=== PATIENT | female | born 1950 | race Caucasian/White ===

== ENCOUNTER → 2020-05-19 09:33 | Outpatient (BNVA) | payer MEDICARE, SELFPAY | PROVIDERS: PCP Internal Medicine; Referring Provider Internal Medicine; Visit Provider Internal Medicine | DX: E11.65 Type 2 diabetes mellitus with hyperglycemia (principal); Z79.4 Long term (current) use of insulin; E55.9 Vitamin D deficiency, unspecified; E04.2 Nontoxic multinodular goiter; E78.5 Hyperlipidemia, unspecified; I10 Essential (primary) hypertension; Z79.899 Other long term (current) drug therapy | CPT/HCPCS: Q3014 ==

== ENCOUNTER 2020-09-01 07:26 | Outpatient (REF) | payer OTHER, SELFPAY ==
[2020-09-01 11:46] LABS: Estimated Average Glucose 134 mg/dL; Hemoglobin A1c % 6.3 %
[2020-09-01 12:04] LABS: Creatinine Urine 85.48 mg/dL; Microalbum/Creatinine Ratio Ur 8.1 ug/mg cr
[2020-09-01 12:22] LABS: Vitamin D 25-OH Total 30.9 ng/mL (>30)
[2020-09-01 12:37] LABS: Alanine Aminotransferase 11 U/L (0-31); Albumin Level 4.5 g/dL (3.5-5.0); Alkaline Phosphatase 51 U/L (39-117); Anion Gap 16 (12-20); Aspartate Amino Transferase 18 U/L (5-31); Bilirubin Total 0.3 mg/dL (0.0-1.0); Blood Urea Nitrogen 12 mg/dL (9-16); Calcium 9.3 mg/dL (8.4-10.2); Carbon Dioxide 28 mmol/L (22-29); Chloride 103 mmol/L (96-108); Cholesterol 163 mg/dL; Estimated Glomerular Filt Rate > 60; Glucose Random 111 mg/dL (60-115); HDL Cholesterol 61 mg/dL; LDL Cholesterol Calculated 83 mg/dl; Potassium 4.5 mmol/L (3.3-5.1); Sodium 142 mmol/L (135-145); Total Protein 7.1 g/dL (6.5-8.0); Triglycerides 99 mg/dL
[2020-09-02 05:12] LABS: LDL Cholesterol Direct 78 mg/dL (<100)
== END 2020-09-01 07:27 | disposition home or self-care (01) ==
LOC: HO.HMGCLDS 07:26
PROVIDERS: PCP Internal Medicine; Visit Provider Internal Medicine
DX: E11.65 Type 2 diabetes mellitus with hyperglycemia (principal); E55.9 Vitamin D deficiency, unspecified
CPT/HCPCS: 36415; 80053; 80061; 82043; 82306; 83036; 83721

== ENCOUNTER → 2020-09-04 13:34 | Outpatient (BNVA) | payer OTHER, SELFPAY | PROVIDERS: PCP Internal Medicine; Visit Provider Internal Medicine | DX: E11.65 Type 2 diabetes mellitus with hyperglycemia (principal); E55.9 Vitamin D deficiency, unspecified; E04.2 Nontoxic multinodular goiter; E78.5 Hyperlipidemia, unspecified; I10 Essential (primary) hypertension; Z79.4 Long term (current) use of insulin; Z71.3 Dietary counseling and surveillance | CPT/HCPCS: 82947; 99212 ==

== ENCOUNTER → 2020-09-08 10:06 | Outpatient (BNVA) | payer OTHER, SELFPAY | PROVIDERS: PCP Internal Medicine; Visit Provider Internal Medicine | DX: J44.9 Chronic obstructive pulmonary disease, unspecified (principal); G47.34 Idiopathic sleep related nonobstructive alveolar hypoventilation; F17.200 Nicotine dependence, unspecified, uncomplicated; Z71.6 Tobacco abuse counseling; Z79.899 Other long term (current) drug therapy | CPT/HCPCS: 99212 ==

== ENCOUNTER 2020-09-23 08:54 | Outpatient (REF) | payer OTHER, SELFPAY | END 2020-09-23 08:55 | disposition home or self-care (01) | LOC: HO.LAB 08:54 | PROVIDERS: PCP Internal Medicine; Visit Provider Obstetrics & Gynecology | DX: N90.89 Other specified noninflammatory disorders of vulva and perineum (principal) | CPT/HCPCS: 56605; 88305; 99202 ==

== ENCOUNTER → 2020-10-06 13:37 | Outpatient (BNVA) | payer OTHER, SELFPAY | PROVIDERS: Visit Provider Obstetrics & Gynecology | DX: N90.89 Other specified noninflammatory disorders of vulva and perineum (principal) | CPT/HCPCS: Q3014 ==

== ENCOUNTER 2020-10-22 10:13 | Outpatient (REF) | payer OTHER, SELFPAY ==
--- NOTE | ~2020-10-22 | MR_ITS ---
EXAMINATION: MR LUMBAR SPINE WITHOUT CONTRAST CLINICAL INFORMATION: Spinal stenosis. Bilateral lower extremity pain and numbness. COMPARISON: Lumbar spine MRI 10/01/2019, lumbar spine CT 02/26/2016. TECHNIQUE: MRI of the lumbar spine was obtained using routine sequences without contrast. FINDINGS: There are chronic postoperative changes of a spinal fusion at L5-S1 including intervertebral hardware and metallic pins that traverse both facet joints. Alignment is normal. Vertebral heights are preserved. There is slight loss of intervertebral disc height and T2 signal intensity at multiple levels related to disc degeneration. The tip of the conus medullaris is located at L1. No mass effect on the conus. Visualized distal cord signal intensity is normal. At L1-L2 the annular contour is normal. No canal or neuroforaminal compromise. At L2-L3 the annular contour is normal. No canal or neuroforaminal compromise. At L3-L4 there is a shallow right central protrusion superimposed upon a bulging disc. Bilateral facet degenerative change. Moderate to severe canal stenosis. No foraminal nerve root compression. At L4-L5 there chronic changes of a right hemilaminectomy. The canal is decompressed. There is bilateral facet degenerative change. No mass effect on the traversing or foraminal nerve roots. At L5-S1 there is susceptibility artifact related to the fusion hardware. Grossly no canal or neuroforaminal compromise. Limited visualization the retroperitoneal anatomy reveals no abnormal finding. Psoas and paraspinal muscle groups are symmetric. MR/MR lumbar spine wo con IMPRESSION: There are stable chronic changes of a spinal fusion at L5-S1. There is a shallow right central protrusion superimposed upon a bulging disc at L3-L4 causing moderate to severe canal stenosis. Otherwise no canal compromise and no substantial mass effect on the traversing or foraminal nerve roots elsewhere within the lumbar spine.
== END 2020-10-22 10:14 | disposition home or self-care (01) ==
LOC: HO.MRI 10:13
PROVIDERS: Visit Provider Internal Medicine
DX: M48.00 Spinal stenosis, site unspecified (principal)
CPT/HCPCS: 72148

== ENCOUNTER 2020-12-04 06:45 | Outpatient (REF) | payer OTHER, SELFPAY ==
[2020-12-04 12:01] LABS: Alanine Aminotransferase 11 U/L (0-31); Albumin Level 4.3 g/dL (3.5-5.0); Alkaline Phosphatase 53 U/L (39-117); Anion Gap 13 (12-20); Aspartate Amino Transferase 16 U/L (5-31); Bilirubin Total 0.4 mg/dL (0.0-1.0); Blood Urea Nitrogen 14 mg/dL (9-16); Calcium 9.6 mg/dL (8.4-10.2); Carbon Dioxide 29 mmol/L (22-29); Chloride 104 mmol/L (96-108); Estimated Glomerular Filt Rate 60; Glucose Random 115 mg/dL (60-115); Potassium 4.6 mmol/L (3.3-5.1); Sodium 141 mmol/L (135-145); Total Protein 6.6 g/dL (6.5-8.0)
[2020-12-04 12:23] LABS: Estimated Average Glucose 148 mg/dL; Hemoglobin A1c % 6.8 %
[2020-12-04 12:28] LABS: Free T4 (Free Thyroxine) 1.09 ng/dL (0.71-1.85); Thyroid Stimulating Hormone 1.56 uIU/mL (0.32-4.0); Vitamin D 25-OH Total 30.5 ng/mL (>30)
== END 2020-12-04 06:46 | disposition home or self-care (01) ==
LOC: HO.HMGCLDS 06:45
PROVIDERS: PCP Internal Medicine; Visit Provider Internal Medicine
DX: E55.9 Vitamin D deficiency, unspecified (principal); E11.65 Type 2 diabetes mellitus with hyperglycemia; E04.2 Nontoxic multinodular goiter
CPT/HCPCS: 36415; 80053; 82306; 83036; 84439; 84443

== ENCOUNTER → 2020-12-11 10:20 | Outpatient (BNVA) | payer OTHER, SELFPAY | PROVIDERS: PCP Internal Medicine; Visit Provider Internal Medicine | DX: E11.65 Type 2 diabetes mellitus with hyperglycemia (principal); E55.9 Vitamin D deficiency, unspecified; E04.2 Nontoxic multinodular goiter; E78.5 Hyperlipidemia, unspecified; I10 Essential (primary) hypertension | CPT/HCPCS: 82947; 99212 ==

== ENCOUNTER → 2021-01-06 09:56 | Outpatient (BNVA) | payer OTHER, SELFPAY | PROVIDERS: PCP Internal Medicine; Visit Provider Nurse Practitioner Family | DX: M96.1 Postlaminectomy syndrome, not elsewhere classified (principal); M53.3 Sacrococcygeal disorders, not elsewhere classified; Z79.899 Other long term (current) drug therapy | CPT/HCPCS: 99202 ==

== ENCOUNTER → 2021-01-15 09:28 | Outpatient (BNVA) | payer OTHER, SELFPAY | PROVIDERS: Visit Provider Obstetrics & Gynecology ==

== ENCOUNTER 2021-03-04 09:36 | Outpatient (REF) | payer OTHER, SELFPAY ==
--- NOTE | ~2021-03-04 | US_ITS ---
EXAMINATION: US THYROID CLINICAL INFORMATION: Nontoxic multinodular goiter. COMPARISON: Thyroid ultrasound 02/25/2020 and 12/27/2018. Ultrasound-guided thyroid biopsy 05/10/2019. TECHNIQUE: Linear transducer grayscale and color Doppler examination with attention to the region of the thyroid. FINDINGS: SIZE: Measurements of the thyroid lobes and nodules are given in sagittal, anteroposterior and transverse dimensions respectively. Right Thyroid Lobe: 6.0 x 2.4 x 2.1 cm, volume 15.8 mL. Previously 5.7 x 2.4 x 2.1 cm, volume 15.0 mL. Parenchyma: The gland echotexture is heterogeneous. Thyroid vascularity is normal. Left Thyroid Lobe: 4.3 x 1.6 x 1.3 cm, volume 4.7 mL. Previously 4.0 x 2.0 x 1.8 cm, volume 7.6 mL. Parenchyma: The gland echotexture is homogeneous. Thyroid vascularity is normal. Isthmus: 0.6 cm in maximum AP dimension. Previously 0.8 cm. Estimated total number of nodules greater than or equal to 1 cm: 2. Chief [employer] nodules are described as follows: 1. Location: Right upper/midpole. Size: 2.3 x 1.9 x 2.0 cm, volume 4.5 mL. Previously: 1.9 x 1.9 x 1.9 cm, volume 3.6 mL. Nodule characteristics: Composition: Solid (2). Echogenicity: Hypoechoic (2). Shape: Not taller than wide (0). Margins: Irregular (2). Echogenic Foci: None (0). ACR TI-RADS total points: 6 Previous: Not applicable ACR TI-RADS category: 4 Previous: Not applicable Significant change in size (>/= 20% in 2 dimensions and minimal increase of 2 mm or 50% or greater increase in volume): No Change in features: No Change in ACR TI-RADS risk category: Not applicable 2. Location: Right midpole. Size: 1.1 x 0.7 x 1.1 cm, volume 0.4 mL. Previously: Not documented, new. Nodule characteristics: Composition: Solid/almost completely solid (2). Echogenicity: Hyperechoic (1). Shape: Not taller than wide (0). Margins: Ill-defined (0). Echogenic Foci: None (0). ACR TI-RADS total points: 3 Previous: Not applicable ACR TI-RADS category: 3 Previous: Not applicable 3. Location: Right lower pole. Size: 0.6 x 0.4 x 0.7 cm, volume 0.08 mL. Previously: 0.4 x 0.5 x 0.6 cm, volume 0.02 mL. Nodule characteristics: Composition: Mixed cystic and solid (1). Echogenicity: Cannot be determined (1). Shape: Not taller than wide (0). Margins: Smooth (0). Echogenic Foci: None (0). ACR TI-RADS total points: 2 Previous: Not applicable ACR TI-RADS category: 2 Previous: Not applicable Significant change in size (>/= 20% in 2 dimensions and minimal increase of 2 mm or 50% or greater increase in volume): No Change in features: No Change in ACR TI-RADS risk category: Not applicable 4. Location: Left upper/midpole. Size: 0.4 x 0.2 x 0.4 cm, volume 0.02 mL. Previously: 0.4 x 0.2 x 0.3 cm, volume 0.01 mL. Nodule characteristics: Composition: Mixed cystic and solid (1). Echogenicity: Cannot be determined (1). Shape: Not taller than wide (0). Margins: Smooth (0). Echogenic Foci: None (0). ACR TI-RADS total points: 2 Previous: Not applicable ACR TI-RADS category: 2 Previous: Not applicable Significant change in size (>/= 20% in 2 dimensions and minimal increase of 2 mm or 50% or greater increase in volume): No Change in features: No Change in ACR TI-RADS risk category: Not applicable Near-complete resolution of previously seen cystic area superior to the isthmus which now measures up to 0.9 cm (previously 2.5 cm). NODES: No lymphadenopathy is seen in the tissue surrounding the thyroid gland. US/US thyroid IMPRESSION: Heterogeneous right thyroid parenchyma with normal vascularity. Asymmetric enlargement of the right thyroid. Findings are unchanged. Multiple bilateral thyroid nodules are redemonstrated. The largest nodule is again noted to be within the superior right thyroid measuring up to 2.3 cm the current examination (previously 1.9 cm). Findings are consistent with a TI-RADS Category 4 nodule, and is similar in ultrasound characteristics. Additional previously seen thyroid nodules are not significantly enlarged. New right midpole thyroid nodule measuring 1.1 cm with ultrasound characteristics consistent with TI-RADS Category 3. Previously seen cystic focus superior to the isthmus has significantly decreased in size now measuring up to 0.9 cm (previously 2.5 cm). ACR TI-RADS RECOMMENDATION REFERENCE: Ultrasound-guided fine-needle aspiration, followup ultrasound, no further follow up. * TR1 (0 point) and TR 2 (2 points): No FNA or follow up * TR3 (3 points): FNA if more than or equal to 2.5 cm in maximum dimension, followup ultrasound in 1, 3 and 5 years if 1.5 to 2.4 cm in maximum dimension. * TR4 (4-6 points): FNA if more than or equal to 1.5 cm in maximum dimension, followup ultrasound in 1, 2, 3 and 5 years if 1 to 1.4 cm in maximum dimension. * TR5 (more than or equal to 7 points): FNA if more than or equal to 1 cm in maximum dimension, followup ultrasound every year for 5 years if 0.5 to 0.9 cm in maximum dimension. * TR3, TR4 or TR5 nodules that are below the size threshold for follow up receive no follow up.
== END 2021-03-04 09:37 | disposition home or self-care (01) ==
LOC: HO.HMGCX 09:36
PROVIDERS: PCP Internal Medicine; Visit Provider Internal Medicine
DX: E04.2 Nontoxic multinodular goiter (principal)
CPT/HCPCS: 76536

== ENCOUNTER 2021-03-13 11:27 | Emergency (ER) | payer OTHER, SELFPAY ==
--- NOTE | ~2021-03-13 | CT_ITS ---
EXAMINATION: CT ABDOMEN AND PELVIS WITH CONTRAST CLINICAL INFORMATION: Vomiting evaluate for obstruction COMPARISON: None TECHNIQUE: Multidetector volumetric images were obtained from the superior aspect of the liver through the pubic symphysis following administration 85 mL of Omnipaque 350 intravenous contrast. Sagittal and coronal reformatted images were obtained on the technologist's workstation. Oral contrast: No This CT examination was performed using dose optimization techniques as appropriate, variously including the following: *Automated exposure control *Adjustment of mA and/or kV according to patient size (this includes techniques or standardized protocols for targeted exams where dose is matched to indication/reason for exam; i.e. extremities or head) *Use of iterative reconstruction technique DLP: 683.41 mGy-cm FINDINGS: LUNG BASES: Bibasilar atelectasis and left lingular atelectasis versus scarring. The heart is not enlarged. No pericardial effusion. LIVER, GALLBLADDER, AND BILIARY TREE: The liver is normal in size, shape, and attenuation. No focal hepatic lesion or biliary ductal dilatation is present. The gallbladder is surgically absent. PANCREAS: Unremarkable. SPLEEN: Unremarkable. Multiple splenules are noted the largest measuring up to 1.8 cm. ADRENAL GLANDS: Unremarkable. KIDNEYS AND URETERS: 2 mm calculus in the right renal interpolar/lower pole region without hydronephrosis. No left-sided nephrolithiasis or hydronephrosis. BLADDER: Unremarkable. GASTROINTESTINAL TRACT: The small and large bowel are unremarkable. The appendix is not definitively visualized. No secondary signs of appendicitis. ABDOMINAL WALL: No significant hernia is appreciated. LYMPH NODES: No enlarged lymph nodes per size criteria. VASCULAR: Abdominal aorta is nonaneurysmal. Atherosclerotic calcifications of the abdominal aorta and its branches. Pelvic phleboliths are noted. PELVIC VISCERA: Anteverted uterus. OSSEOUS STRUCTURES: Spinal hardware at L5-S1, grossly intact. Multilevel degenerative changes of the thoracolumbar spine. No large lytic or blastic lesions are noted. CT/CT abdomen pelvis w con IMPRESSION: 1. No acute process of the abdomen or pelvis identified. 2. Right-sided nephrolithiasis without hydronephrosis. 3. Multiple splenules are visualized. 4. Status post cholecystectomy.
--- NOTE | ~2021-03-13 | XR_ITS ---
EXAMINATION: XR CHEST CLINICAL INFORMATION: Vomiting COMPARISON: CT chest from 01/21/2020, chest radiograph from 02/23/2019 TECHNIQUE: Frontal view of the chest was obtained. FINDINGS: Linear atelectasis versus scarring involving the left lung base. No pneumothorax. Trachea is midline. Cardiomediastinal silhouette is not enlarged. No large pleural effusions. Osseous structures are intact. Soft tissues are unremarkable. XR/XR chest 1V IMPRESSION: Linear atelectasis versus scarring involving the left lung base.
--- NOTE | 2021-03-13 11:35 | ED.NAVMDI ---
HPI - Nausea/Vomiting/Diarrhea General Chief complaint: Nausea/Vomiting/Diarrhea Stated complaint: n/v Time Seen by Provider: 03/13/21 11:35 Source: patient and EMS Mode of arrival: EMS Limitations: no limitations History of Present Illness MD elicited complaint: nausea and vomiting Onset (ago): hour(s) (started at 8am) Description of vomiting: bilious Associated nausea: Yes Associated abdominal pain: No Severity: mild Exacerbating factors: none Relieving factors: none Context: history of abdominal surgery Associated symptoms: loss of appetite and nausea/vomiting Related Data Home Medications Medication Instructions Recorded Confirmed aripiprazole 15 mg tablet 15 mg PO DAILY 05/19/20 01/06/21 blood sugar diagnostic #10 ea 05/19/20 10/06/20 clonazepam 0.5 mg tablet 0.5 mg PO DAILY PRN 05/19/20 01/06/21 pen needle, diabetic 32 gauge x #50 ea 05/19/20 12/11/20 trazodone 100 mg tablet 300 mg PO BEDTIME tab 05/19/20 01/06/21 insulin degludec 100 unit/mL (3 30 unit SUBCUT DAILY ml 09/04/20 01/06/21 mL) subcutaneous pen (Tresiba FlexTouch U-100 insulin) albuterol sulfate 90 mcg/actuation 2 puff INHALATION Q6-8H PRN g 12/11/20 01/06/21 aerosol inhaler duloxetine 60 mg capsule,delayed 60 mg PO DAILY cap 12/11/20 01/06/21 release melatonin 5 mg tablet 5 mg PO BEDTIME 12/11/20 01/06/21 brimonidine 0.1 % eye drops 1 drp OPHTHALMIC (EYE) Q8H 01/06/21 01/06/21 (Alphagan P) quetiapine 25 mg tablet (Seroquel) 25 mg PO BEDTIME 03/06/21 03/06/21 Previous Rx's Medication Instructions Recorded empagliflozin 25 mg tablet 25 mg PO DAILY 30 Days #30 tab 04/09/20 (Jardiance) gabapentin 600 mg tablet 600 mg PO TID 30 Days #90 tab 04/18/20 levothyroxine 25 mcg tablet 25 mcg PO DAILY #90 tab 05/06/20 atorvastatin 40 mg tablet 40 mg PO DAILY #30 tab 06/04/20 liraglutide 0.6 mg/0.1 mL (18 mg/3 1.8 mg SUBCUT DAILY #9 ml 07/02/20 mL) subcutaneous pen injector ([employer] (MCG) 3-Jeanmarie) lancets 28 gauge (FreeStyle #100 ea 09/24/20 Lancets) esomeprazole magnesium 40 mg 40 mg PO DAILY #90 cap 10/06/20 capsule,delayed release fenofibrate 160 mg tablet 160 mg PO DAILY #90 tab 10/06/20 flash glucose scanning reader #1 ea 10/27/20 (FreeStyle Jill 2 [place]) sennosides 8.6 mg tablet (senna) 17.2 mg PO BID #180 tab 11/19/20 flash glucose sensor (FreeStyle #2 ea 12/25/20 Jill 2 Sensor) levocetirizine 5 mg tablet 5 mg PO QPM #90 tab 01/27/21 cholecalciferol (vitamin D3) 50 50 mcg PO DAILY #90 cap 02/09/21 mcg (2,000 unit) capsule docusate sodium 100 mg capsule 100 mg PO BID #60 cap 02/09/21 fluticasone fur. 100 mcg-umeclid 1 inh INHALATION DAILY #60 ea 03/06/21 62.5 mcg-vilant 25 mcg inhalat.powder (Trelegy Ellipta) insulin aspart U-100 100 unit/mL 4 unit SUBCUT TID PRN 30 Days #9 ml 03/09/21 (3 mL) subcutaneous pen ondansetron 4 mg disintegrating 4 mg PO Q8H PRN #20 tab 03/13/21 tablet Allergies Allergy/AdvReac Type Severity Reaction Status Date / Time ziprasidone [From Geodon] Allergy Mild RASH-PALPIT Verified 03/13/21 11:35 ATIONS aspirin [ASPIRIN] Allergy Unknown GI bleed, Verified 03/13/21 11:35 stomach upset azithromycin Allergy Unknown facial Verified 03/13/21 11:35 swelling cephalexin [From KEFLEX] Allergy Unknown UNKNWON Verified 03/13/21 11:35 ibuprofen [IBUPROFEN] Allergy Unknown UNKNOWN, Verified 03/13/21 11:35 stomach upset lisinopril Allergy Unknown cough Verified 03/13/21 11:35 metformin [METFORMIN] Allergy Unknown NAUSEA & Verified 03/13/21 11:35 VOMITING, GI upset valsartan [From Diovan] Allergy Unknown UNKNOWN Verified 03/13/21 11:35 NSAIDS (Non-Steroidal AdvReac Unknown HX OF GI Verified 03/13/21 11:35 Anti-Inflamma BLEED [NSAIDS (NON-STEROIDAL ANTI-INFLAMMA] tramadol [Ultram] AdvReac Unknown GI upset Verified 03/13/21 11:35 Review of Systems Review of Systems: Constitutional : No Weight loss, No Fever, No Chills ENT/Mouth : No sore throat, No Rhinorrhea Eyes: No Swelling, No Redness Cardiovascular : No Chest Pain, No SOB, NoEdema Respiratory : No Cough, No Sputum, No Wheezing Gastrointestinal : Positive Nausea, Positive Vomiting, no Diarrhea, no abdominal Pain, No Hematochezia, No Melena, no constipation Genitourinary : No Dysuria, No Urinary Frequency, No Hematuria, No Urgency Musculoskeletal : No joint pain, No Myalgias, No Joint Swelling Skin : No Skin Lesions, No rash Neuro : No Weakness, No Numbness, No Dizziness, No Headache Psych : No Anxiety/Panic, No Depression Heme/Lymph: No Bruising, No Lymphadenopathy Endocrine : No Polyuria, No Polydipsia All other systems reviewed and are negative. Gastrointestinal: Gastrointestinal: Reports nausea PMFSH Past Medical History Attestation statement: The following information was validated with the patient. Medical History Annual physical exam Constipation COPD (chronic obstructive pulmonary disease) Depression HLD (hyperlipidemia) HTN (hypertension) Multinodular thyroid Nocturnal hypoxemia Smoker Spinal stenosis T2DM (type 2 diabetes mellitus) Vitamin D deficiency Surgical History History of cardiac catheterization Hx of arthroscopy of left knee Hx of cholecystectomy Hx of colonoscopy Hx of spinal fusion Family History Family History Father No problems noted. Mother Cancer Diabetes Social History Social History Household Members: None Housing: Apartment Alcohol intake: never Patient Tobacco Use Status: Current everyday Tobacco user Tobacco use type: Cigarette e-Cigarette/Vaping Use: Former Use Advance Directives: No Advance Directives Information Provided: No Current occupational status: retired Physical Exam Vital Signs: Vital Signs: Last Vital Signs Temp 98.7 F 03/13/21 11:36 Pulse 89 03/13/21 12:11 Resp 18 03/13/21 11:36 BP 126/47 L 03/13/21 11:36 Pulse Ox 92 03/13/21 11:36 Body Mass Index 33.9 Appearance: Alert. Oriented X3. No acute distress. Eyes: Pupils equal, round and reactive to light. ENT: Pharynx normal. Neck: Normal inspection. Neck supple. CVS: Normal heart rate and rhythm. Pulses normal. Respiratory: No respiratory distress. Breath sounds diminished throughout with faint wheezes Abdomen: Soft and distended but no pain to palpation Skin: Skin warm and dry. Normal skin color. Normal skin turgor. Extremities: No lower extremity edema. No calf ttp Neuro: Oriented X 3. No motor deficit. No sensory deficit. Course Course Course Narrative: tolerating PO, workup negative stable for DC feels much better MDM - Nausea/Vomiting/Diarrhea MDM Narrative Medical decision making narrative: 70 yo female with COPD, prior abdominal surgeries, DM here with increased burping for 1 week feels her abdomen is more distended then vomited bile this AM - she has not had prior SBOs, reports flatus today and BM yesterday. Will need neb for faint wheezes, CXR for pneumonia possible diaphragmatic irritation, labs, IVF, zofran, CT scan for obstruction. Dispo per results and findings Lab Data Result diagrams: 03/13/21 11:58 03/13/21 11:58 Labs: Lab Results 03/13/21 03/13/21 03/13/21 Range/Units 11:35 11:57 11:57 WBC (4.8-10.8) X10*3/uL RBC (4.20-5.50) X10*6/uL Hgb (12.0-16.0) g/dl Hct (37-47) % MCV (80-98) fL MCH (27.0-33.0) pg MCHC (31.0-35.0) g/dl RDW (11.0-16.0) % Plt Count (160-400) X10*3/uL MPV (9.4-12.3) fL Immature Gran % (Auto) (0.0-0.4) % Neut % (Auto) (45-73) % Lymph % (Auto) (20-40) % [place] % (Auto) (2-11) % Eos % (Auto) (0-4) % Baso % (Auto) (0-2) % Lymph # (Auto) (1.2-4.9) X10*3/uL [place] # (Auto) (0.1-1.2) X10*3/uL Eos # (Auto) (0.0-0.4) X10*3/uL Baso # (Auto) (0.0-0.2) X10*3/uL Abs Immat Gran (auto) (0.00-0.03) X10*3/uL Absolute Neuts (auto) (2.0-8.3) X10*3/uL Absolute Nucleated RBC (0.0-0.012) X10*3/uL Nucleated RBC % (auto) (0.0-0.2) /100WBC Sodium (135-145) mmol/L Potassium (3.3-5.1) mmol/L Chloride (96-108) mmol/L Carbon Dioxide (22-29) mmol/L Anion Gap (12-20) BUN (9-16) mg/dL Creatinine (0.5-1.4) mg/dL Estim Creat Clear Calc Estimated GFR POC Glucose 296 H (60-115) mg/dL Random Glucose (60-115) mg/dL Lactic Acid 1.4 (0.5-2.0) mmol/L Calcium (8.4-10.2) mg/dL Magnesium (1.6-2.6) mg/dL Total Bilirubin (0.0-1.0) mg/dL Direct Bilirubin (0.0-0.5) mg/dL AST (5-31) U/L ALT (0-31) U/L Alkaline Phosphatase (39-117) U/L Troponin I High Sens 4.3 (<3.5-17.0) ng/L B-Natriuretic Peptide (<100) pg/mL Total Protein (6.5-8.0) g/dL Albumin (3.5-5.0) g/dL Lipase (8-78) U/L Urine Color Urine Appearance Urine pH (5.0-8.0) Ur Specific [place] (1.005-1.025) Urine Protein (NEG-TRACE) MG/DL Urine Glucose (UA) (NEG) MG/DL Urine Ketones (NEG) MG/DL Urine Blood (NEG) Urine Nitrite (NEG) Ur Leukocyte Esterase (NEG) Urine RBC (0) /HPF Urine WBC (0-4) /HPF Ur Squamous Epith Cells /LPF Urine Bacteria /LPF COVID-19 ([facility]) (Negative) COVID-19 Clin Com 03/13/21 03/13/21 03/13/21 Range/Units 11:58 11:58 11:58 WBC 7.3 (4.8-10.8) X10*3/uL RBC 5.05 (4.20-5.50) X10*6/uL Hgb 15.0 (12.0-16.0) g/dl Hct 44.4 (37-47) % MCV 87.9 (80-98) fL MCH 29.7 (27.0-33.0) pg MCHC 33.8 (31.0-35.0) g/dl RDW 14.0 (11.0-16.0) % Plt Count 255 (160-400) X10*3/uL MPV 10.7 (9.4-12.3) fL Immature Gran % (Auto) 0.4 (0.0-0.4) % Neut % (Auto) 73.0 (45-73) % Lymph % (Auto) 18.5 L (20-40) % [place] % (Auto) 6.6 (2-11) % Eos % (Auto) 1.1 (0-4) % Baso % (Auto) 0.4 (0-2) % Lymph # (Auto) 1.3 (1.2-4.9) X10*3/uL [place] # (Auto) 0.5 (0.1-1.2) X10*3/uL Eos # (Auto) 0.1 (0.0-0.4) X10*3/uL Baso # (Auto) 0.0 (0.0-0.2) X10*3/uL Abs Immat Gran (auto) 0.03 (0.00-0.03) X10*3/uL Absolute Neuts (auto) 5.3 (2.0-8.3) X10*3/uL Absolute Nucleated RBC 0.000 (0.0-0.012) X10*3/uL Nucleated RBC % (auto) 0.0 (0.0-0.2) /100WBC Sodium 137 (135-145) mmol/L Potassium 4.1 (3.3-5.1) mmol/L Chloride 102 (96-108) mmol/L Carbon Dioxide 26 (22-29) mmol/L Anion Gap 13 (12-20) BUN 11 (9-16) mg/dL Creatinine 0.88 (0.5-1.4) mg/dL Estim Creat Clear Calc 66.8 Estimated GFR > 60 POC Glucose (60-115) mg/dL Random Glucose 268 H (60-115) mg/dL Lactic Acid (0.5-2.0) mmol/L Calcium 10.0 (8.4-10.2) mg/dL Magnesium (1.6-2.6) mg/dL Total Bilirubin (0.0-1.0) mg/dL Direct Bilirubin (0.0-0.5) mg/dL AST (5-31) U/L ALT (0-31) U/L Alkaline Phosphatase (39-117) U/L Troponin I High Sens (<3.5-17.0) ng/L B-Natriuretic Peptide < 10 (<100) pg/mL Total Protein (6.5-8.0) g/dL Albumin (3.5-5.0) g/dL Lipase (8-78) U/L Urine Color Urine Appearance Urine pH (5.0-8.0) Ur Specific [place] (1.005-1.025) Urine Protein (NEG-TRACE) MG/DL Urine Glucose (UA) (NEG) MG/DL Urine Ketones (NEG) MG/DL Urine Blood (NEG) Urine Nitrite (NEG) Ur Leukocyte Esterase (NEG) Urine RBC (0) /HPF Urine WBC (0-4) /HPF Ur Squamous Epith Cells /LPF Urine Bacteria /LPF COVID-19 ([facility]) (Negative) COVID-19 Clin Com 03/13/21 03/13/21 03/13/21 Range/Units 11:58 11:58 13:16 WBC (4.8-10.8) X10*3/uL RBC (4.20-5.50) X10*6/uL Hgb (12.0-16.0) g/dl Hct (37-47) % MCV (80-98) fL MCH (27.0-33.0) pg MCHC (31.0-35.0) g/dl RDW (11.0-16.0) % Plt Count (160-400) X10*3/uL MPV (9.4-12.3) fL Immature Gran % (Auto) (0.0-0.4) % Neut % (Auto) (45-73) % Lymph % (Auto) (20-40) % [place] % (Auto) (2-11) % Eos % (Auto) (0-4) % Baso % (Auto) (0-2) % Lymph # (Auto) (1.2-4.9) X10*3/uL [place] # (Auto) (0.1-1.2) X10*3/uL Eos # (Auto) (0.0-0.4) X10*3/uL Baso # (Auto) (0.0-0.2) X10*3/uL Abs Immat Gran (auto) (0.00-0.03) X10*3/uL Absolute Neuts (auto) (2.0-8.3) X10*3/uL Absolute Nucleated RBC (0.0-0.012) X10*3/uL Nucleated RBC % (auto) (0.0-0.2) /100WBC Sodium (135-145) mmol/L Potassium (3.3-5.1) mmol/L Chloride (96-108) mmol/L Carbon Dioxide (22-29) mmol/L Anion Gap (12-20) BUN (9-16) mg/dL Creatinine (0.5-1.4) mg/dL Estim Creat Clear Calc Estimated GFR POC Glucose (60-115) mg/dL Random Glucose (60-115) mg/dL Lactic Acid (0.5-2.0) mmol/L Calcium (8.4-10.2) mg/dL Magnesium 2.0 (1.6-2.6) mg/dL Total Bilirubin 0.5 (0.0-1.0) mg/dL Direct Bilirubin 0.2 (0.0-0.5) mg/dL AST 24 D (5-31) U/L ALT 27 (0-31) U/L Alkaline Phosphatase 74 D (39-117) U/L Troponin I High Sens (<3.5-17.0) ng/L B-Natriuretic Peptide (<100) pg/mL Total Protein 6.9 (6.5-8.0) g/dL Albumin 4.5 (3.5-5.0) g/dL Lipase 77 (8-78) U/L Urine Color YELLOW Urine Appearance CLEAR Urine pH 6.0 (5.0-8.0) Ur Specific [place] 1.010 (1.005-1.025) Urine Protein NEG (NEG-TRACE) MG/DL Urine Glucose (UA) >=1000 H (NEG) MG/DL Urine Ketones NEG (NEG) MG/DL Urine Blood NEG (NEG) Urine Nitrite NEG (NEG) Ur Leukocyte Esterase NEG (NEG) Urine RBC 0-2 (0) /HPF Urine WBC 0 (0-4) /HPF Ur Squamous Epith Cells TRACE /LPF Urine Bacteria NONE /LPF COVID-19 ([facility]) Negative (Negative) COVID-19 Clin Com See Note ECG Data Attestation: I personally reviewed and interpreted this ECG as follows: ECG interpretation date: 03/13/21 ECG interpretation time: 12:20 Interpretation: Rate:76 Rhythm: NSR [place]: normal Normal P waves. Normal JEANETH. Normal QRS complex. ST T wave : normal no CELI qTC: normal prior studies: no acute ischemia The study has been interpreted contemporaneously by me. . Discharge Plan Discharge Clinical Impression: Vomiting Qualifiers: Vomiting type: unspecified Vomiting Intractability: non-intractable Nausea presence: with nausea Qualified Code(s): R11.2 - Nausea with vomiting, unspecified Patient Disposition: Home, Self-Care Instructions: Acute Nausea and Vomiting (ED) Additional Instructions: return to ED for any worsening symptoms or concerns Prescriptions: New ondansetron 4 mg tablet,disintegrating 4 mg PO Q8H PRN (Reason: nausea and vomiting) Qty: 20 RF: 0 No Action Jardiance 25 mg tablet 25 mg PO DAILY 30 Days Qty: 30 RF: 11 gabapentin 600 mg tablet 600 mg PO TID 30 Days Qty: 90 RF: 12 levothyroxine 25 mcg tablet 25 mcg PO DAILY Qty: 90 RF: 3 atorvastatin 40 mg tablet 40 mg PO DAILY Qty: 30 RF: 11 liraglutide [Victoza 3-Jeanmarie] 0.6 mg/0.1 mL (18 mg/3 mL) pen injector 1.8 mg subcut DAILY Qty: 9 RF: 11 (DME) lancets [FreeStyle Lancets] 28 gauge misc See Rx Instructions .MEDSUPPLY Qty: 100 RF: 11 fenofibrate 160 mg tablet 160 mg PO DAILY Qty: 90 RF: 3 esomeprazole magnesium 40 mg capsule,delayed release(DR/EC) 40 mg PO DAILY Qty: 90 RF: 3 (DME) FreeStyle Jill 2 [place] Misc See Rx Instructions .ROUTE .MEDSUPPLY Qty: 1 RF: 0 sennosides [senna] 8.6 mg tablet 17.2 mg PO BID Qty: 180 RF: 3 (DME) FreeStyle Jill 2 Sensor Kit See Rx Instructions .ROUTE .MEDSUPPLY Qty: 2 RF: 11 levocetirizine 5 mg tablet 5 mg PO QPM Qty: 90 RF: 2 docusate sodium 100 mg capsule 100 mg PO BID Qty: 60 RF: 4 cholecalciferol (vitamin D3) 50 mcg (2,000 unit) capsule 50 mcg PO DAILY Qty: 90 RF: 1 insulin aspart U-100 100 unit/mL (3 mL) insulin pen 4 unit subcut TID PRN (Reason: Sliding scale) 30 Days Qty: 9 RF: 3 quetiapine [Seroquel] 25 mg tablet 25 mg PO BEDTIME RF: 0 Trelegy Ellipta 100-62.5-25 mcg blister with device 1 inh inhalation DAILY Qty: 60 RF: 3 (DME) pen needle, diabetic 32 gauge x 5/32 needle See Rx Instructions ea .ROUTE .MEDSUPPLY Qty: 50 RF: 0 aripiprazole 15 mg tablet 15 mg PO DAILY RF: 0 trazodone 100 mg tablet 300 mg PO BEDTIME RF: 0 clonazepam 0.5 mg tablet 0.5 mg PO DAILY PRNRF: 0 (DME) FreeStyle Lite Strips Strip See Rx Instructions ea Not Applicable TID Qty: 10 RF: 0 albuterol sulfate 90 mcg/actuation HFA aerosol inhaler 2 puff inhalation Q6-8H PRNRF: 0 duloxetine 60 mg capsule,delayed release(DR/EC) 60 mg PO DAILY RF: 0 Tresiba FlexTouch U-100 100 unit/mL (3 mL) insulin pen 30 unit subcut DAILY RF: 0 melatonin 5 mg tablet 5 mg PO BEDTIME RF: 0 Alphagan P 0.1 % drops 1 drp ophthalmic (eye) Q8H RF: 0 Referrals: Jolanta Concepcion MD [Primary Care Provider] - 2 days (if not better)
[2021-03-13 11:36] VITALS: BP 108/50; BP 126/47; PULSE 109; RESP 18; TEMP 37.1; O2SAT 92; BMI 33.9
[2021-03-13 11:38] LABS: Glucose, Whole Blood 296 mg/dL (60-115)
--- NOTE | 2021-03-13 11:42 | ECG_ITS ---
Test Reason : N/V Blood Pressure : / mmHG Vent. Rate : 076 BPM Atrial Rate : 076 BPM P-R Int : 152 ms QRS Dur : 072 ms QT Int : 348 ms P-R-T Axes : 044 070 056 degrees QTc Int : 391 ms Normal sinus rhythm Normal ECG When compared with ECG of 21-FEB-2020 11:54, No significant change was found Referred By: Amanda Turner Electronically Signed By:KVNG STRINGER
[2021-03-13] MEDS: Albuterol Sulfate (0.083%) 2.5 MG/3 ML VIAL.NEB INHALE (12:09)
[2021-03-13 12:11] VITALS: PULSE 89; O2SAT 99
[2021-03-13 12:16] LABS: MANUAL DIFF FLAG NO
[2021-03-13 12:18] LABS: Basophils Percent Auto 0.4 % (0-2); Eosinophils Absolute Auto 0.1 X10*3/uL (0.0-0.4); Eosinophils Percent Auto 1.1 % (0-4); Hematocrit 44.4 % (37-47); Imm Gran Abs Auto 0.03 X10*3/uL (0.00-0.03); Imm Gran Pct Auto 0.4 % (0.0-0.4); Lymphocytes Absolute Auto 1.3 X10*3/uL (1.2-4.9); Lymphocytes Percent Auto 18.5 % (20-40); Mean Corpuscular HGB Conc 33.8 g/dl (31.0-35.0); Mean Corpuscular Hemoglobin 29.7 pg (27.0-33.0); Mean Corpuscular Volume 87.9 fL (80-98); Mean Platelet Volume 10.7 fL (9.4-12.3); Monocytes Absolute Auto 0.5 X10*3/uL (0.1-1.2); Monocytes Percent Auto 6.6 % (2-11); Neutrophils Absolute Auto 5.3 X10*3/uL (2.0-8.3); Platelet Count 255 X10*3/uL (160-400); Red Blood Count 5.05 X10*6/uL (4.20-5.50); White Blood Count 7.3 X10*3/uL (4.8-10.8)
[2021-03-13 12:29] LABS: Lactic Acid 1.4 mmol/L (0.5-2.0)
[2021-03-13] MEDS: ondansetron HCL 4 MG/2 ML VIAL IVPUSH (12:29)
[2021-03-13] MEDS: 0.9 % Sodium Chloride 1,000 ML 999 ML IVCONT (12:29)
[2021-03-13 12:32] LABS: Anion Gap 13 (12-20); Blood Urea Nitrogen 11 mg/dL (9-16); Carbon Dioxide 26 mmol/L (22-29); Chloride 102 mmol/L (96-108); Creatinine Clr Calc Pharmacy 66.8; Estimated Glomerular Filt Rate > 60; Glucose Random 268 mg/dL (60-115); Potassium 4.1 mmol/L (3.3-5.1); Sodium 137 mmol/L (135-145)
[2021-03-13 12:35] LABS: Alanine Aminotransferase 27 U/L (0-31); Albumin Level 4.5 g/dL (3.5-5.0); Alkaline Phosphatase 74 U/L (39-117); Aspartate Amino Transferase 24 U/L (5-31); Bilirubin Direct 0.2 mg/dL (0.0-0.5); Bilirubin Total 0.5 mg/dL (0.0-1.0); COVID-19 Test Negative (Negative); IDNOW Serial# 9DD0AD1C; Lipase 77 U/L (8-78); Total Protein 6.9 g/dL (6.5-8.0)
[2021-03-13 12:37] LABS: Troponin-I High Sensitivity 4.3 ng/L (<3.5-17.0)
[2021-03-13 12:41] LABS: B Type Natriuretic Peptide < 10 pg/mL (<100)
[2021-03-13] MEDS: iohexoL 350 MG/ML 100 ML INFUS..BTL IV (12:59)
[2021-03-13 13:27] LABS: Appearance Urine CLEAR; Color Urine YELLOW; Glucose Urine UA >=1000 MG/DL (NEG); Leukocyte Esterase Urine NEG (NEG); Nitrite Urine NEG (NEG); Urine Blood NEG (NEG); Urine Ketones NEG (NEG); Urine Protein NEG (NEG-TRACE)
[2021-03-13 13:38] LABS: RBC Urine 0-2 /HPF (0); Squamous Epithelial Cell Urine TRACE /LPF; WBC Urine 0 /HPF (0-4)
--- NOTE | 2021-03-13 14:29 | PHA.MEDREC ---
Pharmacy Consult ? Medication Reconciliation Pharmacy has completed the medication reconciliation. spoke with patient in the ED. Has [facility] RN fill lock box every tuesday. pt not taking trelegy because she can not use powder inhalations.
[2021-03-13 14:37] VITALS: BP 117/57; PULSE 83; RESP 18; O2SAT 93
== END 2021-03-13 14:46 | disposition home or self-care (01) ==
PROVIDERS: Emergency Provider Emergency Medicine; PCP Internal Medicine
DX: R11.2 Nausea with vomiting, unspecified (principal); R10.9 Unspecified abdominal pain; R06.02 Shortness of breath; Z79.899 Other long term (current) drug therapy; Z20.822 Contact with and (suspected) exposure to COVID-19; Z87.891 Personal history of nicotine dependence
CPT/HCPCS: 36415; 71045; 74177; 80048; 80076; 81001; 82947; 83605; 83690; 83735; 83880; 84484; 85025; 87040; 87635; 93005; 94640; 96361; 96374; 99283; 99284; J2405; Q9967

== ENCOUNTER → 2021-03-16 09:59 | Outpatient (BNVA) | payer MEDICARE, SELFPAY | PROVIDERS: PCP Internal Medicine; Visit Provider Internal Medicine | DX: J44.9 Chronic obstructive pulmonary disease, unspecified (principal); G47.34 Idiopathic sleep related nonobstructive alveolar hypoventilation; R91.1 Solitary pulmonary nodule; F17.200 Nicotine dependence, unspecified, uncomplicated | CPT/HCPCS: 99212 ==

== ENCOUNTER 2021-03-17 07:26 | Outpatient (REF) | payer MEDICARE, SELFPAY ==
[2021-03-17 12:35] LABS: Alanine Aminotransferase 25 U/L (0-31); Albumin Level 4.4 g/dL (3.5-5.0); Alkaline Phosphatase 73 U/L (39-117); Anion Gap 15 (12-20); Aspartate Amino Transferase 23 U/L (5-31); Bilirubin Total 0.4 mg/dL (0.0-1.0); Blood Urea Nitrogen 9 mg/dL (9-16); Calcium 9.6 mg/dL (8.4-10.2); Carbon Dioxide 28 mmol/L (22-29); Chloride 104 mmol/L (96-108); Cholesterol 171 mg/dL; Estimated Average Glucose 171 mg/dL; Estimated Glomerular Filt Rate 60; Glucose Random 147 mg/dL (60-115); HDL Cholesterol 60 mg/dL; Hemoglobin A1c % 7.6 %; LDL Cholesterol Calculated 83 mg/dl; Sodium 142 mmol/L (135-145); Total Protein 6.6 g/dL (6.5-8.0); Triglycerides 142 mg/dL
[2021-03-17 12:43] LABS: Creatinine Urine 66.68 mg/dL; Microalbumin Urine < 5.0 mg/L
== END 2021-03-17 07:27 | disposition home or self-care (01) ==
LOC: HO.HMGCLDS 07:26
PROVIDERS: PCP Internal Medicine; Visit Provider Internal Medicine
DX: E11.65 Type 2 diabetes mellitus with hyperglycemia (principal); I10 Essential (primary) hypertension
CPT/HCPCS: 36415; 80053; 80061; 82043; 83036

== ENCOUNTER → 2021-03-18 13:21 | Outpatient (BNVA) | payer MEDICARE, SELFPAY | PROVIDERS: PCP Internal Medicine; Referring Provider Internal Medicine; Visit Provider Nurse Practitioner Family | DX: R00.0 Tachycardia, unspecified (principal); J44.9 Chronic obstructive pulmonary disease, unspecified; I10 Essential (primary) hypertension; Z98.890 Other specified postprocedural states | CPT/HCPCS: 99212 ==

== ENCOUNTER → 2021-03-23 09:53 | Outpatient (BNVA) | payer MEDICARE, SELFPAY | PROVIDERS: PCP Internal Medicine; Visit Provider Internal Medicine | DX: E11.65 Type 2 diabetes mellitus with hyperglycemia (principal); E55.9 Vitamin D deficiency, unspecified; E04.2 Nontoxic multinodular goiter; E78.5 Hyperlipidemia, unspecified; I10 Essential (primary) hypertension | CPT/HCPCS: 82947; 99212 ==

== ENCOUNTER 2021-04-01 10:47 | Day surgery (SDC) | payer MEDICARE, SELFPAY ==
--- NOTE | 2021-03-31 09:51 | HO.ANESPROP2 ---
Documented by User: Ree Cabello NP 03/31/21 09:54 HPI - Anesthesia Eval Consult details Narrative: 70yo F for Left Sacroiliac Joint Steroid Injection Stable at routine cardiac visit 02/2021 *Multiple Med Allergies* PMFSH Active Problems Active Problems: All Active Problems (Updated 03/19/21 @ 11:54 by Madison Nunez NP-C) Sinus tachycardia (Acute) History of cardiac catheterization (Acute) Pulmonary nodule (Acute) Annual physical exam (Acute) Menopausal state (Acute) Artificial menopause state (Acute) Well woman exam (Acute) Sacroiliac joint pain (Acute) Postlaminectomy syndrome, lumbar (Acute) Constipation (Acute) GERD (gastroesophageal reflux disease) (Acute) Vulvar lesion (Acute) Nocturnal hypoxemia (Acute) COPD (chronic obstructive pulmonary disease) (Acute) Smoker (Acute) Spinal stenosis (Acute) Depression (Acute) Vitamin D deficiency (Acute) Multinodular thyroid (Acute) HLD (hyperlipidemia) (Acute) HTN (hypertension) (Acute) T2DM (type 2 diabetes mellitus) (Acute) Past Medical History Medical History Annual physical exam Constipation COPD (chronic obstructive pulmonary disease) Depression HLD (hyperlipidemia) HTN (hypertension) Multinodular thyroid Nocturnal hypoxemia Pulmonary nodule Smoker Spinal stenosis T2DM (type 2 diabetes mellitus) Vitamin D deficiency Family History Family History Father No problems noted. Mother Cancer Diabetes Surgical History Surgical History History of cardiac catheterization Hx of arthroscopy of left knee Hx of cholecystectomy Hx of colonoscopy Hx of spinal fusion Social History Social History Household Members: None Housing: Apartment Alcohol intake: never Patient Tobacco Use Status: Current everyday Tobacco user Smoking Start Date: 04/01/1964 Tobacco use type: Cigarette Cigarette Packs Per Day: 1.5 Cigarettes Per Day: 30.0 Smoked in Last 30 Days: Yes e-Cigarette/Vaping Use: Former Use Second Hand Smoke Exposure: No Use of substances other than those prescribed or required for medical reasons: No Are you DNR?: Yes Advance Directives: No Advance Directives Information Provided: Yes Patient : No Current occupational status: retired Meds Allergies Allergy/AdvReac Type Severity Reaction Status Date / Time ziprasidone [From Geodon] Allergy Mild RASH-PALPIT Verified 03/23/21 10:31 ATIONS aspirin [ASPIRIN] Allergy Unknown GI bleed, Verified 03/23/21 10:31 stomach upset azithromycin Allergy Unknown facial Verified 03/23/21 10:31 swelling cephalexin [From KEFLEX] Allergy Unknown UNKNWON Verified 03/23/21 10:31 ibuprofen [IBUPROFEN] Allergy Unknown UNKNOWN, Verified 03/23/21 10:31 stomach upset lisinopril Allergy Unknown cough Verified 03/23/21 10:31 metformin [METFORMIN] Allergy Unknown NAUSEA & Verified 03/23/21 10:31 VOMITING, GI upset valsartan [From Diovan] Allergy Unknown UNKNOWN Verified 03/23/21 10:31 NSAIDS (Non-Steroidal AdvReac Unknown HX OF GI Verified 03/23/21 10:31 Anti-Inflamma BLEED [NSAIDS (NON-STEROIDAL ANTI-INFLAMMA] tramadol [Ultram] AdvReac Unknown GI upset Verified 03/23/21 10:31 Home Medications Medication Instructions Recorded Confirmed Last Taken Type aripiprazole 15 mg tablet 15 mg PO DAILY 05/19/20 03/23/21 03/13/21 History blood sugar diagnostic #10 ea 05/19/20 03/23/21 Unknown History clonazepam 0.5 mg tablet 0.5 mg PO DAILY PRN 05/19/20 03/23/21 03/13/21 History pen needle, diabetic 32 gauge x #50 ea 05/19/20 03/23/21 Unknown History insulin degludec 100 unit/mL (3 20 unit SUBCUT DAILY ml 09/04/20 03/23/21 03/13/21 History mL) subcutaneous pen (Tresiba FlexTouch U-100 insulin) albuterol sulfate 90 mcg/actuation 2 puff INHALATION Q4H PRN g 12/11/20 03/23/21 Unknown History aerosol inhaler duloxetine 60 mg capsule,delayed 60 mg PO BID cap 12/11/20 03/23/21 03/13/21 History release melatonin 5 mg tablet 5 mg PO BEDTIME 12/11/20 03/23/21 03/12/21 History brimonidine 0.1 % eye drops 1 drp OPHTHALMIC (EYE) BID 01/06/21 03/23/21 03/13/21 History (Alphagan P) esomeprazole magnesium 40 mg 40 mg PO DAILY@0630 03/13/21 03/23/21 03/13/21 History capsule,delayed release levocetirizine 5 mg tablet 5 mg PO DAILY 03/13/21 03/23/21 03/13/21 History levothyroxine 25 mcg tablet 25 mcg PO DAILY@0630 03/13/21 03/23/21 03/13/21 History liraglutide 0.6 mg/0.1 mL (18 mg/3 1.8 mg SUBCUT DAILY 03/13/21 03/23/21 03/13/21 History mL) subcutaneous pen injector (Victoza 3-Jeanmarie) mirtazapine 7.5 mg tablet 1 tab PO BEDTIME 03/13/21 03/23/21 03/12/21 History pioglitazone 15 mg tablet 15 mg PO DAILY 03/13/21 03/23/21 03/13/21 History sennosides 8.6 mg tablet (senna) 17.2 mg PO BEDTIME 03/13/21 03/23/21 03/12/21 History insulin aspart U-100 100 unit/mL See Protocol SUBCUT TIDAC 03/23/21 03/23/21 Unknown History (3 mL) subcutaneous pen Exam Exam Date and Time: March 31, 2021 0951 Pertinent Lab Results Pertinent Lab Results: Laboratory Tests 03/13/21 03/17/21 11:58 07:38 WBC 7.3 Hgb 15.0 Hct 44.4 Plt Count 255 Sodium 142 Potassium 5.0 D Chloride 104 Carbon Dioxide 28 BUN 9 Creatinine 0.93 Narrative Narrative: EKG 02/2021 Vent. Rate : 076 BPM ? ? Atrial Rate : 076 BPM ?? P-R Int : 152 ms? QRS Dur : 072 ms ? ? QT Int : 348 ms ? ? ? P-R-T Axes : 044 070 056 degrees ?? QTc Int : 391 ms ? Normal sinus rhythm Normal ECG When compared with ECG of 21-FEB-2020 11:54, No significant change was found ? Cardiac cath 12/04/19 normal coronaries, LCx arises from RCA Assessment and Plan Assessment Anesthesia Assessment: Chart Reviewed Documented by User: Jim Carmen MD 04/01/21 12:15 PMFSH Past Medical History Medical History Annual physical exam Constipation COPD (chronic obstructive pulmonary disease) Depression HLD (hyperlipidemia) HTN (hypertension) Multinodular thyroid Nocturnal hypoxemia Pulmonary nodule Smoker Spinal stenosis T2DM (type 2 diabetes mellitus) Vitamin D deficiency Family History Family History Father No problems noted. Mother Cancer Diabetes Surgical History Surgical History History of cardiac catheterization Hx of arthroscopy of left knee Hx of cholecystectomy Hx of colonoscopy Hx of spinal fusion Social History Social History Household Members: None Housing: Apartment Alcohol intake: never Patient Tobacco Use Status: Current everyday Tobacco user Smoking Start Date: 04/01/1964 Tobacco use type: Cigarette Cigarette Packs Per Day: 1.5 Cigarettes Per Day: 30.0 Smoked in Last 30 Days: Yes e-Cigarette/Vaping Use: Former Use Second Hand Smoke Exposure: No Use of substances other than those prescribed or required for medical reasons: No Are you DNR?: Yes Advance Directives: No Advance Directives Information Provided: Yes Patient : No Current occupational status: retired Meds Allergies Allergy/AdvReac Type Severity Reaction Status Date / Time ziprasidone [From Geodon] Allergy Mild RASH-PALPIT Verified 03/23/21 10:31 ATIONS aspirin [ASPIRIN] Allergy Unknown GI bleed, Verified 03/23/21 10:31 stomach upset azithromycin Allergy Unknown facial Verified 03/23/21 10:31 swelling cephalexin [From KEFLEX] Allergy Unknown UNKNWON Verified 03/23/21 10:31 ibuprofen [IBUPROFEN] Allergy Unknown UNKNOWN, Verified 03/23/21 10:31 stomach upset lisinopril Allergy Unknown cough Verified 03/23/21 10:31 metformin [METFORMIN] Allergy Unknown NAUSEA & Verified 03/23/21 10:31 VOMITING, GI upset valsartan [From Diovan] Allergy Unknown UNKNOWN Verified 03/23/21 10:31 NSAIDS (Non-Steroidal AdvReac Unknown HX OF GI Verified 03/23/21 10:31 Anti-Inflamma BLEED [NSAIDS (NON-STEROIDAL ANTI-INFLAMMA] tramadol [Ultram] AdvReac Unknown GI upset Verified 03/23/21 10:31 Home Medications Medication Instructions Recorded Confirmed Last Taken Type aripiprazole 15 mg tablet 15 mg PO DAILY 05/19/20 03/23/21 03/13/21 History blood sugar diagnostic #10 ea 05/19/20 03/23/21 Unknown History clonazepam 0.5 mg tablet 0.5 mg PO DAILY PRN 05/19/20 03/23/21 03/13/21 History pen needle, diabetic 32 gauge x #50 ea 05/19/20 03/23/21 Unknown History insulin degludec 100 unit/mL (3 20 unit SUBCUT DAILY ml 09/04/20 03/23/21 03/13/21 History mL) subcutaneous pen (Tresiba FlexTouch U-100 insulin) albuterol sulfate 90 mcg/actuation 2 puff INHALATION Q4H PRN g 12/11/20 03/23/21 Unknown History aerosol inhaler duloxetine 60 mg capsule,delayed 60 mg PO BID cap 12/11/20 03/23/21 03/13/21 History release melatonin 5 mg tablet 5 mg PO BEDTIME 12/11/20 03/23/21 03/12/21 History brimonidine 0.1 % eye drops 1 drp OPHTHALMIC (EYE) BID 01/06/21 03/23/21 03/13/21 History (Alphagan P) esomeprazole magnesium 40 mg 40 mg PO DAILY@62903/13/21 03/23/21 03/13/21 History capsule,delayed release levocetirizine 5 mg tablet 5 mg PO DAILY 03/13/21 03/23/21 03/13/21 History levothyroxine 25 mcg tablet 25 mcg PO DAILY@0630 03/13/21 03/23/21 03/13/21 History liraglutide 0.6 mg/0.1 mL (18 mg/3 1.8 mg SUBCUT DAILY 03/13/21 03/23/21 03/13/21 History mL) subcutaneous pen injector (Victoza 3-Jeanmarie) mirtazapine 7.5 mg tablet 1 tab PO BEDTIME 03/13/21 03/23/21 03/12/21 History pioglitazone 15 mg tablet 15 mg PO DAILY 03/13/21 03/23/21 03/13/21 History sennosides 8.6 mg tablet (senna) 17.2 mg PO BEDTIME 03/13/21 03/23/21 03/12/21 History insulin aspart U-100 100 unit/mL See Protocol SUBCUT TIDAC 03/23/21 03/23/21 Unknown History (3 mL) subcutaneous pen Exam Airway Mallampati Class: III TM Dist: >3cm Neck ROM: Full Denture: Upper and Lower
--- NOTE | ~2021-04-01 | FL_ITS ---
EXAMINATION: XR FLUOROSCOPY WITH IMAGES CLINICAL INFORMATION: Pain. SI joint injection. COMPARISON: CT pelvis 03/13/2021 TECHNIQUE: Fluoroscopy performed by Dr. David. Fluoroscopy time: 0.7 minutes DAP: 11.5 Gycm2 Images: 1 FINDINGS: There is a spinal needle overlying mid left SI joint. Some contrast is seen in the soft tissues and likely early intra-articular contrast. There is hardware again noted lumbosacral spine with screws and disc spacer. FL/FL guidance in OR IMPRESSION: Fluoroscopy for pain management procedure.
[2021-04-01 11:49] VITALS: BMI 33.6
[2021-04-01 12:09] LABS: Glucose, Whole Blood 116 mg/dL (60-115)
[2021-04-01 12:17] VITALS: BP 114/36; PULSE 60; RESP 22; TEMP 36.5; O2SAT 96
--- NOTE | 2021-04-01 12:22 | MHC.SHP ---
Pre-Procedural Eval Section A Date of Service: 04/01/21 The patient is an INPATIENT: No The History & Physical has been completed within 30 days and I have reviewed it.: No Section B Chief Complaint: SI Joint pain Allergies: Allergies Allergy/AdvReac Type Severity Reaction Status Date / Time ziprasidone [From Geodon] Allergy Mild RASH-PALPIT Verified 03/23/21 10:31 ATIONS aspirin [ASPIRIN] Allergy Unknown GI bleed, Verified 03/23/21 10:31 stomach upset azithromycin Allergy Unknown facial Verified 03/23/21 10:31 swelling cephalexin [From KEFLEX] Allergy Unknown UNKNWON Verified 03/23/21 10:31 ibuprofen [IBUPROFEN] Allergy Unknown UNKNOWN, Verified 03/23/21 10:31 stomach upset lisinopril Allergy Unknown cough Verified 03/23/21 10:31 metformin [METFORMIN] Allergy Unknown NAUSEA & Verified 03/23/21 10:31 VOMITING, GI upset valsartan [From Diovan] Allergy Unknown UNKNOWN Verified 03/23/21 10:31 NSAIDS (Non-Steroidal AdvReac Unknown HX OF GI Verified 03/23/21 10:31 Anti-Inflamma BLEED [NSAIDS (NON-STEROIDAL ANTI-INFLAMMA] tramadol [Ultram] AdvReac Unknown GI upset Verified 03/23/21 10:31 Plan Diagnosis/Plan: Unchanged I have reviewed the history and physical and performed a pertinent physical examination on my patient. No changes have occurred unless specified.
--- NOTE | 2021-04-01 12:23 | P.OP_ITS ---
Operative Note Operative Note Date of Service: 04/01/21 Narrative: Sacroiliac Joint Injection, Left The procedure, its benefits, and its risks were explained and written informed consent was obtained from the patient. Immediately prior to starting the procedure, a time-out safety check was conducted. The patient's identification, procedure name, procedure site, and procedure laterality were confirmed with the patient. The procedure site was marked with a surgical marker . Patient was placed prone on the fluoroscopy table and his back was prepped and draped in standard fashion using ChloraPrep and draped with sterile drape. The C-arm AP view identified the anterior and posterior right SI joint line. With live oblique rotation of the C-arm, the SI joint line was identified until the iliac spine was out of the line of sight. The skin and subcutaneous tissue was anesthetized using 2 mL of 0.5% plain lidocaine with 1.5-inch 25-gauge needle at the caudal end of the medial joint line. A 3.5-inch 22-gauge spinal needle with small bend on the tip was slowly advanced towards the middle of the joint line. Once the bony content was obtained, the needle was slided into the intra- articular space. Lateral views and tactile feedback confirmed intra-articular needle placement. A total volume of 3mL of solution containing 80 mg Depomedrol and rest 0.5% bupivacaine was injected intra-articularly. The stylet was reinserted and needle was removed. The patient tolerated the procedure well. Patient denied any lower extremity weakness or numbness. Patient was observed for 30 min and was discharged after fulfilling the standard discharge criteria. This procedure was repeated on the contralateral site. EBL: <1ml
--- NOTE | 2021-04-01 12:23 | PM.OP ---
Brief Operative Note Date of Service: 04/01/21 Pre-op diagnosis: Sacroiliitis Post-op diagnosis: same Procedure: Sacroiliac joint injection, left Implants: None Surgeon: Isaac David MD Anesthesia: MAC Was an Senior Web Architect used for this Procedure?: No Estimated blood loss (mL): 0 Pathology: none sent Condition: stable Disposition: PACU
[2021-04-01] MEDS: Lactated Ringers 1,000 ML 100 ML IVCONT (12:24)
[2021-04-01 13:01] VITALS: BP 110/59; PULSE 80; RESP 18; TEMP 36.3; O2SAT 98
[2021-04-01 13:15] VITALS: BP 136/77; PULSE 74; RESP 16; TEMP 36.3; O2SAT 94
[2021-04-01 13:30] VITALS: BP 120/51; PULSE 73; RESP 16; O2SAT 94
[2021-04-01 13:44] VITALS: BP 130/62; PULSE 90; RESP 16; TEMP 36.3; O2SAT 94
== END 2021-04-01 14:39 | disposition home or self-care (01) ==
PROVIDERS: PCP Internal Medicine; Visit Provider Internal Medicine
PROC: 3E0U33Z Introduction of Anti-inflammatory into Joints, Percutaneous Approach (ICD-10-PCS; CPT 27096; principal; 2021-04-01 12:30)
DX: M53.3 Sacrococcygeal disorders, not elsewhere classified (principal); M96.1 Postlaminectomy syndrome, not elsewhere classified; Z98.1 Arthrodesis status; J44.9 Chronic obstructive pulmonary disease, unspecified; G47.36 Sleep related hypoventilation in conditions classified elsewhere; I10 Essential (primary) hypertension; E11.9 Type 2 diabetes mellitus without complications; Z79.4 Long term (current) use of insulin; Z79.82 Long term (current) use of aspirin; Z79.899 Other long term (current) drug therapy; Z88.8 Allergy status to other drugs, medicaments and biological substances; Z88.1 Allergy status to other antibiotic agents; F17.210 Nicotine dependence, cigarettes, uncomplicated
CPT/HCPCS: G0260; 82947; J1040; J3010; Q9967

== ENCOUNTER 2021-04-09 09:35 | Outpatient (REF) | payer MEDICARE, SELFPAY ==
--- NOTE | ~2021-04-09 | CT_ITS ---
EXAMINATION: CT CHEST SCREENING CLINICAL INFORMATION: Current smoker. 2 packs per day for 65 years. COMPARISON: Previous chest CT scans most recent December 2019 and chest x-ray February 2021. TECHNIQUE: Multidetector volumetric CT imaging of the chest was performed without contrast using low-dose technique. Additional 2D coronal and sagittal reformatted images and axial 3D maximum intensity projection (MIP) images were generated on the CT workstation. This CT examination was performed using dose optimization techniques as appropriate, variously including the following: *Automated exposure control *Adjustment of mA and/or kV according to patient size (this includes techniques or standardized protocols for targeted exams where dose is matched to indication/reason for exam; i.e. extremities or head) *Use of iterative reconstruction technique DLP: 55 mGy-cm FINDINGS: LUNGS: There is evidence of emphysema. The small, solid pulmonary nodules are stable. There is slight interval increase in size and density of the ground-glass attenuation nodule in the left lower lobe. This measures 1.3 x 2.1 cm (axial image 296, series 5) compared to 1 x 2 cm on the prior exam. This appears denser laterally (for example axial image 290, series). There are numerous smaller other ground-glass attenuation areas seen in the bilateral lower lobes that appear new or increased. Largest area in the right lower lobe measures approximately 1 cm (for example axial image 402, series 5). There is a new 5 mm ground-glass attenuation peripheral or subpleural nodule in the right upper lobe (axial image 211, series 5). There is subsegmental atelectasis in the lung bases. No endobronchial or endotracheal lesion is seen. MEDIASTINUM: The heart does not appear enlarged. There is a trace pericardial effusion that is stable. There is mild coronary artery calcification. The thoracic aorta is normal in caliber. There are no enlarged hilar or mediastinal lymph nodes PLEURA: There is no pleural effusion. No pleural mass or thickening. AXILLAE: No lymphadenopathy. UPPER ABDOMEN: The gallbladder has been removed. OSSEOUS STRUCTURES: There are mild degenerative changes of the spine. CT/CT lung screening IMPRESSION: Emphysema. Stable small, solid pulmonary nodules. Interval increase in ground-glass attenuation nodules in the bilateral lower lobes and right upper lobe. The previously identified dominant ground-glass attenuation nodule in the left lower lobe on prior exams appears slightly increased in size and density. ASSESSMENT: Lung-RADS category 3: Probably Benign RECOMMENDATION: Six-month low-dose chest CT follow up recommended.
== END 2021-04-09 09:36 | disposition home or self-care (01) ==
LOC: HO.CT 09:35
PROVIDERS: Visit Provider Physician Assistant Medical
DX: Z12.2 Encounter for screening for malignant neoplasm of respiratory organs (principal); F17.210 Nicotine dependence, cigarettes, uncomplicated
CPT/HCPCS: 71271

== ENCOUNTER 2021-04-10 10:00 | Outpatient (REF) | payer MEDICARE, SELFPAY ==
--- NOTE | ~2021-04-10 | MM_ITS ---
EXAMINATION: BONE DENSITOMETRY CLINICAL INDICATION: Menopausal female climacteric state. COMPARISON: Previous BD dated 04/13/2016 and baseline BD dated 10/31/2008. TECHNIQUE: Using a [employer] DXA System (software version: 13.1) manufactured by [employer], dual-energy x-ray absorptiometry was performed of the lumbar spine and left hip. The images are of good technical quality. Summary results are attached. FINDINGS: AP SPINE L1-L4: Current: BMD 0.978 g/cm2, Z-score -0.9, T-score -1.7, osteopenia, 6.1% decrease from previous, 11.2% decrease from baseline (<5% change is not significant). Prior: BMD 1.041 g/cm2. Baseline: BMD 1.101 g/cm2. LEFT FEMUR, NECK: Current: BMD 0.888 g/cm2, Z-score 0.1, T-score -1.1, osteopenia. Prior: BMD 0.934 g/cm2. Baseline: BMD 0.941 g/cm2. LEFT FEMUR, TOTAL: Current: BMD 0.974 g/cm2, Z-score 0.6, T-score -0.3, normal, 0.3% increase from previous, 1.0% increase from baseline (<5% change is not significant). Prior: BMD 0.971 g/cm2. Baseline: BMD 0.964 g/cm2. IDENTIFIED RISK FACTORS: Dementia, tobacco use (current smoker), height loss. Early menopause, secondary osteoporosis, history of fracture (adult). HISTORY OF FRACTURE: Ankle. MEDICATIONS: Vitamin D. MM/XR DEXA axial skeleton IMPRESSION: 1. DIAGNOSIS: Osteopenia based on the lowest T-score value of -1.7 in the lumbar spine applying World Health Organization criteria. 2. 10-YEAR FRACTURE RISK PREDICTION, FRAX: Major osteoporotic fracture (clinical spine, forearm, hip or shoulder) 13.4%. Hip fracture 2.3%. 3. Treatment Recommendations: NOF guidelines recommend consideration for treatment in postmenopausal women and men age 50 and older presenting with the following: -A hip or vertebral (clinical or morphometric) fracture. -T-score less than or equal to -2.5 at the femoral neck or spine after appropriate evaluation to exclude secondary causes. -Low bone mass at the hip or spine and a 10-year fracture probability by FRAX of greater than or equal to 3% for hip fracture or greater than or equal to 20% for major osteoporotic fracture based on the [place] adapted WHO algorithm. 4. Other Recommendations: All treatment decisions require clinical judgment and consideration of individual patient factors, including patient preferences, comorbidities, previous drug use, risk factors not captured in the FRAX model (e.g. frailty, falls, vitamin D deficiency, increased bone turnover, interval significant decline in bone density) and possible under or overestimation of fracture risk by FRAX. Additional medical evaluation for secondary cause of low bone mineral density may be appropriate. FUTURE SCAN RECOMMENDATION: People with diagnosed cases of osteoporosis or at high risk for fracture should have regular bone mineral density tests. For patients eligible for Medicare, routine testing is allowed once every 2 years. The testing frequency can be increased to one year for patients who have rapidly progressing disease, those who are receiving or discontinuing medical therapy to restore bone mass, or have additional risk factors.
--- NOTE | ~2021-04-10 | MM_ITS ---
EXAMINATION: MM SCREENING DIGITAL BREAST TOMOSYNTHESIS, BILATERAL CLINICAL INFORMATION: Screening. Asymptomatic. The lifetime risk of breast cancer based on the Tyrer-Cuzick Model is 5%. COMPARISON: Mammography: 05/12/2016, 11/22/2014, 09/13/2013 TECHNIQUE: Digital breast tomosynthesis is performed in both the craniocaudal and mediolateral oblique views along with computer-aided detection (CAD). Synthesized 2D images are generated from the tomosynthesis. FINDINGS: There are scattered areas of fibroglandular density (ACR BI-RADS breast composition Category b). There are no significant masses, abnormal calcifications, or other abnormalities. The axilla and skin contours are unremarkable. MM/MM tomosynthesis screening BI IMPRESSION: No mammographic evidence of malignancy. ASSESSMENT: BI-RADS 1: Negative RECOMMENDATION: Routine annual mammography screening. This patient's information was entered into a reminder system with a target due date for their next mammogram.
== END 2021-04-10 10:01 | disposition home or self-care (01) ==
LOC: HO.MAMMO 10:00
PROVIDERS: Visit Provider Obstetrics & Gynecology
DX: Z13.820 Encounter for screening for osteoporosis (principal); Z78.0 Asymptomatic menopausal state; M85.80 Other specified disorders of bone density and structure, unspecified site; Z12.31 Encounter for screening mammogram for malignant neoplasm of breast; F17.200 Nicotine dependence, unspecified, uncomplicated; Z79.899 Other long term (current) drug therapy; Z87.81 Personal history of (healed) traumatic fracture
CPT/HCPCS: 77063; 77067; 77080

== ENCOUNTER → 2021-04-27 09:49 | Outpatient (BNVA) | payer OTHER, SELFPAY | PROVIDERS: PCP Internal Medicine; Visit Provider Obstetrics & Gynecology | DX: E11.9 Type 2 diabetes mellitus without complications (principal); E04.2 Nontoxic multinodular goiter; E78.5 Hyperlipidemia, unspecified; E55.9 Vitamin D deficiency, unspecified; M85.80 Other specified disorders of bone density and structure, unspecified site; F17.210 Nicotine dependence, cigarettes, uncomplicated; Z98.890 Other specified postprocedural states; Z88.8 Allergy status to other drugs, medicaments and biological substances | CPT/HCPCS: 99212 ==

== ENCOUNTER → 2021-05-04 10:19 | Outpatient (BNVA) | payer MEDICARE, SELFPAY | PROVIDERS: PCP Internal Medicine; Visit Provider Internal Medicine | DX: J44.9 Chronic obstructive pulmonary disease, unspecified (principal); G47.34 Idiopathic sleep related nonobstructive alveolar hypoventilation; R91.1 Solitary pulmonary nodule; F17.200 Nicotine dependence, unspecified, uncomplicated | CPT/HCPCS: 99212 ==

== ENCOUNTER → 2021-05-11 09:43 | Outpatient (BNVA) | payer OTHER, SELFPAY | PROVIDERS: PCP Internal Medicine; Visit Provider Internal Medicine | DX: J44.9 Chronic obstructive pulmonary disease, unspecified (principal) | CPT/HCPCS: 99211 ==

== ENCOUNTER 2021-06-05 11:04 | Emergency (ER) | payer MEDICARE, SELFPAY ==
--- NOTE | ~2021-06-05 | CT_ITS ---
EXAMINATION: CT ANGIOGRAM OF THE CHEST WITH AND WITHOUT CONTRAST (CT PULMONARY ANGIOGRAM FOR PE) CLINICAL INFORMATION: Reason for Exam SOB worse with inspiration COMPARISON: Previous chest x-ray from earlier the same day and chest CT most recent March 2021 TECHNIQUE: Prior to contrast administration, noncontrast localization images were obtained. Subsequently, multidetector volumetric imaging was performed from the thoracic inlet to below the diaphragms following the administration of 80 mL Omnipaque 350 intravenous contrast. No contrast reaction reported Sagittal, coronal, and MIP oblique sagittal reformatted images were obtained on the CT workstation, uploaded to PACS, and reviewed. This CT examination was performed using dose optimization techniques as appropriate, variously including the following: *Automated exposure control *Adjustment of mA and/or kV according to patient size (this includes techniques or standardized protocols for targeted exams where dose is matched to indication/reason for exam; i.e. extremities or head) *Use of iterative reconstruction technique Total exam dose-length product 333 mGy-cm FINDINGS: QUALITY OF STUDY/CONTRAST BOLUS: Satisfactory. PULMONARY ARTERIES: No central or segmental pulmonary emboli. THORACIC AORTA: No aneurysm or dissection. LUNG: There is evidence of mild emphysema. There are 2 cm cysts in the anterior segment of the right upper lobe and left lower lobe adjacent to the diaphragm. PLEURA: No pleural effusion or pneumothorax. MEDIASTINUM: Normal heart size. No pericardial effusion. No hilar or mediastinal lymphadenopathy. No evidence of septal bowing or right heart strain. CHEST WALL/AXILLA: No axillary or internal mammary lymphadenopathy. OSSEOUS STRUCTURES: No acute or suspicious osseous abnormality. UPPER ABDOMEN: Unremarkable. No reflux of contrast into the hepatic veins to suggest elevated right heart pressures. CT/CT angio chest PE protocol IMPRESSION: Mild emphysema. No evidence of pulmonary embolism. VTE: negative
--- NOTE | ~2021-06-05 | CT_ITS ---
EXAMINATION: CT ABDOMEN AND PELVIS WITH CONTRAST CLINICAL INFORMATION: Right upper quadrant pain COMPARISON: Previous CT scan of the abdomen and pelvis February 2021 and abdominal ultrasound September 2016 TECHNIQUE: Multidetector volumetric images were obtained from the superior aspect of the liver through the pubic symphysis following administration 85 mL of Omnipaque 350 intravenous contrast. Sagittal and coronal reformatted images were obtained on the technologist's workstation. Oral contrast: Yes This CT examination was performed using dose optimization techniques as appropriate, variously including the following: *Automated exposure control *Adjustment of mA and/or kV according to patient size (this includes techniques or standardized protocols for targeted exams where dose is matched to indication/reason for exam; i.e. extremities or head) *Use of iterative reconstruction technique DLP: 781 mGy-cm FINDINGS: LUNG BASES: The visualized lung bases are unremarkable. LIVER, GALLBLADDER, AND BILIARY TREE: The liver is normal in size, shape, and attenuation. No focal liver lesion is seen. There is mild intrahepatic and extrahepatic biliary duct dilatation. The common bile duct measures 9 mm. Common bile duct does not appear dilated and the head of the pancreas. No common bile duct stone is seen. The gallbladder is been removed. PANCREAS: Unremarkable. SPLEEN: Unremarkable. ADRENAL GLANDS: Unremarkable. KIDNEYS AND URETERS: There are small bilateral nonobstructing renal stones. There is an atypical enhancement pattern of the kidneys with right enhancing appearance at the cortical medullary junction. This is seen diffusely throughout both kidneys and appears symmetric. Appearance is questionable for possible ATN or nephritis. Clinical correlation and correlation with urinalysis is recommended. No hydronephrosis is seen. BLADDER: Unremarkable. GASTROINTESTINAL TRACT: The small and large bowel are unremarkable. The appendix is unremarkable. ABDOMINAL WALL: No significant hernia is appreciated. LYMPH NODES: Normal. VASCULAR: There is evidence of atherosclerotic disease. No aneurysm is seen. The renal veins are patent. PELVIC VISCERA: Unremarkable. OSSEOUS STRUCTURES: There are are postsurgical changes at L5-S1. CT/CT abdomen pelvis w con IMPRESSION: Unusual enhancement appearance of the kidneys. Findings are questionable for possible ATN or nephritis. Clinical correlation and correlation with urinalysis is recommended. The renal veins are patent. Small bilateral nonobstructing renal stones. Mild intra and extrahepatic biliary duct dilatation similar to previous exams.. The gallbladder has been removed. Fleischner guidelines were followed.
--- NOTE | ~2021-06-05 | XR_ITS ---
EXAMINATION: XR CHEST CLINICAL INFORMATION: Shortness of breath COMPARISON: Previous chest x-ray February 2021 TECHNIQUE: Frontal view of the chest was obtained. FINDINGS: The cardiac and mediastinal contours are stable. There is chronic scarring or subsegmental atelectasis at the left lung base. The lungs are otherwise clear. There is no pleural effusion or pneumothorax. Bony structures are unremarkable. XR/XR chest 1V IMPRESSION: No evidence for acute disease in the chest.
[2021-06-05 11:21] VITALS: BP 117/60; BP 139/50; PULSE 100; PULSE 98; RESP 18; TEMP 36.4; O2SAT 93; O2SAT 95; BMI 33.9
--- NOTE | 2021-06-05 11:22 | ED_ITS ---
HPI - SOB/Dyspnea General Chief Complaint: General Medical <JAQUAN Palomino - Last Filed: 06/05/21 16:25> Stated Complaint: RT SIDED RIB PAIN/SOB <JAQUAN Palomino - Last Filed: 06/05/21 16:25> Time Seen by Provider: 06/05/21 11:14 <JAQUAN Palomino - Last Filed: 06/05/21 16:25> Source: patient <JAQUAN Palomino - Last Filed: 06/05/21 16:25> Mode of arrival: EMS <JAQUAN Palomino - Last Filed: 06/05/21 16:25> Limitations: no limitations <JAQUAN Palomino - Last Filed: 06/05/21 16:25> History of Present Illness HPI Narrative: This is a 70-year-old female past medical significant for COPD, depression, hypertension, hyperlipidemia, multinodular thyroid, osteopenia, current daily smoker (1-2 packs per day), type 2 diabetes and vitamin-D deficiency presenting to the emergency department with complaints of right upper quadrant pain, and shortness of breath x2 weeks progressively worsening over the past few days. Patient tells me that her abdominal pain is constant in nature localized to the right upper quadrant, and it radiates into her right mid back. She also tells me that she has been very short of breath lately, even with just slight movement, she tells me she is a patient of who follows her for her COPD. Patient uses home oxygen, 2 L at night. She also uses it at times throughout the day as needed. She tells me that she ambulates with a walker however due to shortness of breath she has not been able to ambulate as much as she used to. <JAQUAN Palomino - Last Filed: 06/05/21 16:25> MD elicited complaint: shortness of breath and pain with inspiration <JAQUAN Palomino - Last Filed: 06/05/21 16:25> Pertinent past history: COPD <JAQUAN Palomino - Last Filed: 06/05/21 16:25> Onset (ago): week(s) (2) <JAQUAN Palomino - Last Filed: 06/05/21 16:25> Timing: constant <JAQUAN Palomino - Last Filed: 06/05/21 16:25> Severity: severe <JAQUAN Plaomino - Last Filed: 06/05/21 16:25> Exacerbating factors: lying flat, exertion, movement and inspiration <JAQUAN Palomino - Last Filed: 06/05/21 16:25> Relieving factors: nothing <JAQUAN Palomino - Last Filed: 06/05/21 16:25> Known history of: COPD and diabetes <JAQUAN Palomino - Last Filed: 06/05/21 16:25> Associated symptoms: pain with inspiration <JAQUAN Palomino - Last Filed: 06/05/21 16:25> Treatment prior to arrival: none <JAQUAN Palomino Last Filed: 06/05/21 16:25> Related Data Home Medications: Home Medications Medication Instructions Recorded Confirmed aripiprazole 15 mg tablet 15 mg PO DAILY 05/19/20 05/11/21 blood sugar diagnostic #10 ea 05/19/20 05/11/21 pen needle, diabetic 32 gauge x #50 ea 05/19/20 05/11/21 albuterol sulfate 90 mcg/actuation 2 puff INHALATION Q4H PRN g 12/11/20 05/11/21 aerosol inhaler melatonin 5 mg tablet 5 mg PO BEDTIME 12/11/20 05/11/21 brimonidine 0.1 % eye drops 1 drp OPHTHALMIC (EYE) BID 01/06/21 05/11/21 (Alphagan P) esomeprazole magnesium 40 mg 40 mg PO DAILY@0630 03/13/21 05/11/21 capsule,delayed release levocetirizine 5 mg tablet 5 mg PO DAILY 03/13/21 05/11/21 liraglutide 0.6 mg/0.1 mL (18 mg/3 1.8 mg SUBCUT DAILY 03/13/21 05/11/21 mL) subcutaneous pen injector (TPACK 3-Jeanmarie) mirtazapine 7.5 mg tablet 1 tab PO BEDTIME 03/13/21 05/11/21 pioglitazone 15 mg tablet 15 mg PO DAILY 03/13/21 05/11/21 sennosides 8.6 mg tablet (senna) 17.2 mg PO BEDTIME 03/13/21 05/11/21 insulin aspart U-100 100 unit/mL See Protocol SUBCUT TIDAC 03/23/21 05/11/21 (3 mL) subcutaneous pen Previous Rx's Medication Instructions Recorded fenofibrate 160 mg tablet 160 mg PO DAILY #90 tab 10/06/20 flash glucose scanning reader #1 ea 10/27/20 (FreeStyle Jill 2 [place]) flash glucose sensor (FreeStyle #2 ea 12/25/20 Jill 2 Sensor) cholecalciferol (vitamin D3) 50 50 mcg PO DAILY #90 cap 02/09/21 mcg (2,000 unit) capsule docusate sodium 100 mg capsule 100 mg PO BID #60 cap 02/09/21 ondansetron 4 mg disintegrating 4 mg PO Q8H PRN #20 tab 03/13/21 tablet fluticasone propionate 115 2 puff INHALATION Q12H 30 Days #12 03/16/21 mcg-salmeterol 21 mcg/actuation g HFA inhaler (Advair HFA) empagliflozin 25 mg tablet 25 mg PO DAILY 30 Days #30 tab 03/23/21 (Jardiance) lancets 28 gauge (FreeStyle #100 ea 03/23/21 Lancets) gabapentin 600 mg tablet 600 mg PO TID 30 Days #90 tab 03/24/21 levothyroxine 25 mcg tablet 25 mcg PO QAM #90 tab 04/08/21 insulin degludec 100 unit/mL (3 24 unit SUBCUT DAILY #15 ml 04/21/21 mL) subcutaneous pen (Tresiba FlexTouch U-100 insulin) atorvastatin 40 mg tablet 40 mg PO DAILY #30 tab 05/06/21 pulse oximeter #1 ea 05/12/21 morphine 15 mg immediate release 15 mg PO Q8H PRN #6 tab 06/05/21 tablet <JAQUAN Palomino - Last Filed: 06/05/21 16:25> Allergies/Adverse Reactions: Allergies Allergy/AdvReac Type Severity Reaction Status Date / Time ziprasidone [From [facility]] Allergy Mild RASH-PALPIT Verified 05/11/21 11:05 ATIONS aspirin [ASPIRIN] Allergy Unknown GI bleed, Verified 05/11/21 11:05 stomach upset azithromycin Allergy Unknown facial Verified 05/11/21 11:05 swelling cephalexin [From KEFLEX] Allergy Unknown UNKNWON Verified 05/11/21 11:05 ibuprofen [IBUPROFEN] Allergy Unknown UNKNOWN, Verified 05/11/21 11:05 stomach upset lisinopril Allergy Unknown cough Verified 05/11/21 11:05 metformin [METFORMIN] Allergy Unknown NAUSEA & Verified 05/11/21 11:05 VOMITING, GI upset valsartan [From Diovan] Allergy Unknown UNKNOWN Verified 05/11/21 11:05 NSAIDS (Non-Steroidal AdvReac Unknown HX OF GI Verified 05/11/21 11:05 Anti-Inflamma BLEED [NSAIDS (NON-STEROIDAL ANTI-INFLAMMA] tramadol [Ultram] AdvReac Unknown GI upset Verified 05/11/21 11:05 <JAQUAN Palomino - Last Filed: 06/05/21 16:25> Review of Systems Review of Systems: Constitutional : No Weight loss, No Fever, No Chills, No Fatigue, No Malaise ENT/Mouth : No sore throat, No Rhinorrhea Eyes: No Eye Pain, No Swelling, No Redness Cardiovascular : No Chest Pain, + SOB, + Dyspnea on Exertion, No Orthopnea, No Edema, No Palpitations Respiratory : No Cough, No Sputum, No Wheezing Gastrointestinal : No Nausea, No Vomiting, No Diarrhea, No Constipation, + abdominal Pain, No Hematochezia, No Melena Genitourinary : No Dysuria, No Urinary Frequency, No Hematuria, Musculoskeletal : No joint pain, No Myalgias, No Joint Swelling Skin : No Skin Lesions, No rash Neuro : No Weakness, No Numbness, No Dizziness, No Headache All other systems reviewed and are negative <JAQUAN Palomino Last Filed: 06/05/21 16:25> [facility] Past Medical History Attestation statement: The following information was validated with the patient. <JAQUAN Palomino Last Filed: 06/05/21 16:25> Source: old records reviewed and nursing notes reviewed <JAQUAN Palomino Last Filed: 06/05/21 16:25> Medical History: Medical History Constipation COPD (chronic obstructive pulmonary disease) Depression HLD (hyperlipidemia) HTN (hypertension) Multinodular thyroid Nocturnal hypoxemia Osteopenia (~2015) Personal history of nicotine dependence Pulmonary nodule Smoker Spinal stenosis T2DM (type 2 diabetes mellitus) (~2008) Vitamin D deficiency <JAQUAN Palomino - Last Filed: 06/05/21 16:25> Surgical History: Surgical History History of cardiac catheterization History of lithotripsy Hx of arthroscopy of left knee Hx of cholecystectomy Hx of colonoscopy Hx of spinal fusion S/P thyroid biopsy <JAQUAN Palomino - Last Filed: 06/05/21 16:25> Family History Family History: Family History Father No problems noted. Mother Cancer Diabetes <JAQUAN Palomino - Last Filed: 06/05/21 16:25> Social History Social History: Social History Household Members: None Housing: Apartment Alcohol intake: never Patient Tobacco Use Status: Current everyday Tobacco user Smoking Start Date: 04/01/1964 Tobacco use type: Cigarette Cigarette Packs Per Day: 1.5 Cigarettes Per Day: 30.0 e-Cigarette/Vaping Use: Former Use Second Hand Smoke Exposure: No Advance Directives: No Advance Directives Information Provided: No Current occupational status: retired <JAQUAN Palomino - Last Filed: 06/05/21 16:25> Physical Exam Vital Signs: Vital Signs: Last Vital Signs Temp 98.3 F 06/05/21 16:09 Pulse 107 H 06/05/21 16:09 Resp 18 06/05/21 16:09 BP 113/74 06/05/21 16:09 Pulse Ox 94 06/05/21 16:09 BMI result Body Mass Index 33.9 Vital signs are stable <JAQUAN Palomino - Last Filed: 06/05/21 16:25> Vital Signs: Last Vital Signs Temp 98.3 F 12/10/21 16:09 Pulse 107 H 06/05/21 16:09 Resp 18 06/05/21 16:09 BP 113/74 06/05/21 16:09 Pulse Ox 94 06/05/21 16:09 BMI result Body Mass Index 33.9 <Qamar Jacques MD - Last Filed: 06/05/21 17:30> Appearance: Alert.? Oriented X3.? No acute distress.? Head: Normocephalic, atraumatic, no step-offs or deformities Eyes: Pupils equal, round and reactive to light.? ENT: Pharynx normal.? Neck: Normal inspection.? Neck supple.? CVS: Normal heart rate and rhythm.? Pulses normal.? Respiratory: No respiratory distress.?+ diminished lung sounds and rales throughout. Abdomen: Soft + distended with pain to palpation to RUQ. Normoactive bowel sounds .? Skin: Skin warm and dry.? Normal skin color.? Normal skin turgor.? Extremities: No lower extremity edema.? No calf ttp. 5/5 strength to bilateral upper and lower extremities Back: No midline tenderness, no C-spine tenderness, full range of motion, no CVA tenderness bilaterally Neuro: Oriented X 3.? No motor deficit.? No sensory deficit. <JAQUAN Palomino - Last Filed: 06/05/21 16:25> Course Reevaluation(s) Reevaluation #1: Labs show no acute infection, no anemia no acute electrolyte abnormalities, urine shows high glucose. Patient is COVID negative. Pending CT scan of the chest and abdomen. <JAQUAN Palomino - Last Filed: 06/05/21 16:25> Time: 13:51 <JAQUAN Palomino - Last Filed: 06/05/21 16:25> Reevaluation #2: CT negative for VTE. It does show mild emphysema, with no evidence of pulmonary embolism. Chest x-ray with no acute findings. CT abdomen/ pelvis pending. <JAQUAN Palomino - Last Filed: 06/05/21 16:25> Time: 14:00 <JAQUAN Palomino - Last Filed: 06/05/21 16:25> Reevaluation #3: Spoke to Dr. Shahid says does not see a urologic cause to this, he sees to very small stones that are likely not causing patient's symptoms. At this time I will contact Nephrology. <JAQUAN Palomino - Last Filed: 06/05/21 16:25> Time: 15:28 <JAQUAN Palomino - Last Filed: 06/05/21 16:25> Additional Reevaluation(s): Spoke to Dr. Talbot who states this is not likely ATN and these stones are unlikely causing this patients pain. Patient now 94% on RA and 96% on 2L. Upon chart review it appears as though patient uses 2 L of oxygen at night, and she is allowed to use 2 L as needed for shortness of breath. I informed the patient this is worse on her chart. I also advised her to follow-up with pulmonology. Patient reports improvement with morphine. I offered patient Case Man agement/PT/OT for possible placement in a jail facility or short-term rehab, patient is not interested in states she does not want this she wants to go home. 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 I have also advised her to follow-up with her primary care provider. I have given her strict return precautions. At this time patient been cleared for discharge, and has been advised to follow- up with her PCP. She has also been advised to return to the emergency department with new or worsening symptoms. She has been given strict return precautions. I attest that I have reviewed patients [employer], and at the time prescribing the patient a controlled substance is appropriate based off of patients diagnosis and treatment plan. <JAQUAN Palomino - Last Filed: 06/05/21 16:25> MDM - SOB/Dyspnea MDM Narrative Medical decision making narrative: 1134 70-year-old female past medical history significant for depression, COPD, hypertension, hyperlipidemia, multinodular thyroid, osteopenia, type 2 diabetic who is a current daily smoker about 1-2 packs per day presenting to the emerge ncy department with right upper quadrant pain and shortness of breath x2 weeks progressively worsening. Upon physical examination there are scattered rales, diminished breath sounds bilaterally. Patient's abdomen is distended, soft and tender to the right upper quadrant. With normoactive bowel sounds. Plan at this time is to obtain basic labs, CTA of the chest, CT of the abdomen and pelvis. <JAQUAN Palomino - Last Filed: 06/05/21 16:25> Medical Records Attestation: I reviewed the patient's medical records. <JAQUAN Palomino - Last Filed: 06/05/21 16:25> Lab Data Attestation: I reviewed the patient's lab results. <JAQUAN Palomino - Last Filed: 06/05/21 16:25> Result diagrams: : 06/05/21 12:14 06/05/21 12:14 <JAQUAN Palomino - Last Filed: 06/05/21 16:25> Labs: Lab Results 06/05/21 06/05/21 06/05/21 Range/Units 11:38 12:14 12:14 WBC 9.0 (4.8-10.8) X10*3/uL RBC 4.99 (4.20-5.50) X10*6/uL Hgb 14.8 (12.0-16.0) g/dl Hct 44.7 (37.0-47.0) % MCV 89.6 (80.0-98.0) fL MCH 29.7 (27.0-33.0) pg MCHC 33.1 (31.0-35.0) g/dl RDW 14.5 (11.0-16.0) % Plt Count 253 (160-400) X10*3/uL MPV 10.6 (9.4-12.3) fL Immature Gran % (Auto) 0.3 (0.0-0.4) % Neut % (Auto) 74.7 H (45-73) % Lymph % (Auto) 17.4 L (20-40) % [place] % (Auto) 6.2 (2-11) % Eos % (Auto) 0.8 (0-4) % Baso % (Auto) 0.6 (0-2) % Lymph # (Auto) 1.6 (1.2-4.9) X10*3/uL [place] # (Auto) 0.6 (0.1-1.2) X10*3/uL Eos # (Auto) 0.1 (0.0-0.4) X10*3/uL Baso # (Auto) 0.1 (0.0-0.2) X10*3/uL Abs Immat Gran (auto) 0.03 (0.00-0.03) X10*3/uL Absolute Neuts (auto) 6.7 (2.0-8.3) x10*3/uL Absolute Nucleated RBC 0.000 (0.0-0.012) X10*3/uL Nucleated RBC % (auto) 0.0 (0.0-0.2) /100WBC Sodium 141 (135-145) mmol/L Potassium 4.4 (3.3-5.1) mmol/L Chloride 106 (96-108) mmol/L Carbon Dioxide 26 (22-29) mmol/L Anion Gap 13 (12-20) BUN 11 (9-16) mg/dL Creatinine 0.90 (0.5-1.4) mg/dL Estim Creat Clear Calc 65.4 Estimated GFR > 60 POC Glucose 184 H (60-115) mg/dL Random Glucose 160 H (60-115) mg/dL Calcium 9.5 (8.4-10.2) mg/dL Magnesium 1.9 (1.6-2.6) mg/dL Total Bilirubin 0.4 (0.0-1.0) mg/dL AST 22 (5-31) U/L ALT 20 (0-31) U/L Alkaline Phosphatase 74 (39-117) U/L B-Natriuretic Peptide (<100) pg/mL Total Protein 6.5 (6.5-8.0) g/dL Albumin 4.2 (3.5-5.0) g/dL Urine Color Urine Appearance Urine pH (5.0-8.0) Ur Specific [place] (1.005-1.025) Urine Protein (NEG-TRACE) MG/DL Urine Glucose (UA) (NEG) MG/DL Urine Ketones (NEG) MG/DL Urine Blood (NEG) Urine Nitrite (NEG) Ur Leukocyte Esterase (NEG) Urine RBC (0) /HPF Urine WBC (0-4) /HPF Ur Squamous Epith Cells /LPF Urine Bacteria /LPF COVID-19 ([facility]) (Negative) COVID-19 Clin Com 06/05/21 06/05/21 06/05/21 Range/Units 12:14 12:14 12:14 WBC (4.8-10.8) X10*3/uL RBC (4.20-5.50) X10*6/uL Hgb (12.0-16.0) g/dl Hct (37.0-47.0) % MCV (80.0-98.0) fL MCH (27.0-33.0) pg MCHC (31.0-35.0) g/dl RDW (11.0-16.0) % Plt Count (160-400) X10*3/uL MPV (9.4-12.3) fL Immature Gran % (Auto) (0.0-0.4) % Neut % (Auto) (45-73) % Lymph % (Auto) (20-40) % [place] % (Auto) (2-11) % Eos % (Auto) (0-4) % Baso % (Auto) (0-2) % Lymph # (Auto) (1.2-4.9) X10*3/uL [place] # (Auto) (0.1-1.2) X10*3/uL Eos # (Auto) (0.0-0.4) X10*3/uL Baso # (Auto) (0.0-0.2) X10*3/uL Abs Immat Gran (auto) (0.00-0.03) X10*3/uL Absolute Neuts (auto) (2.0-8.3) x10*3/uL Absolute Nucleated RBC (0.0-0.012) X10*3/uL Nucleated RBC % (auto) (0.0-0.2) /100WBC Sodium (135-145) mmol/L Potassium (3.3-5.1) mmol/L Chloride (96-108) mmol/L Carbon Dioxide (22-29) mmol/L Anion Gap (12-20) BUN (9-16) mg/dL Creatinine (0.5-1.4) mg/dL Estim Creat Clear Calc Estimated GFR POC Glucose (60-115) mg/dL Random Glucose (60-115) mg/dL Calcium (8.4-10.2) mg/dL Magnesium (1.6-2.6) mg/dL Total Bilirubin (0.0-1.0) mg/dL AST (5-31) U/L ALT (0-31) U/L Alkaline Phosphatase (39-117) U/L B-Natriuretic Peptide < 10 (<100) pg/mL Total Protein (6.5-8.0) g/dL Albumin (3.5-5.0) g/dL Urine Color YELLOW Urine Appearance CLEAR Urine pH 6.0 (5.0-8.0) Ur Specific [place] 1.010 (1.005-1.025) Urine Protein NEG (NEG-TRACE) MG/DL Urine Glucose (UA) >=1000 H (NEG) MG/DL Urine Ketones NEG (NEG) MG/DL Urine Blood NEG (NEG) Urine Nitrite NEG (NEG) Ur Leukocyte Esterase NEG (NEG) Urine RBC 0 (0) /HPF Urine WBC 0-2 (0-4) /HPF Ur Squamous Epith Cells TRACE /LPF Urine Bacteria NONE /LPF COVID-19 ([facility]) Negative (Negative) COVID-19 Clin Com See Note <JAQUAN Palomino - Last Filed: 06/05/21 16:25> Lab Results 06/05/21 06/05/21 06/05/21 Range/Units 11:38 12:14 12:14 WBC 9.0 (4.8-10.8) X10*3/uL RBC 4.99 (4.20-5.50) X10*6/uL Hgb 14.8 (12.0-16.0) g/dl Hct 44.7 (37.0-47.0) % MCV 89.6 (80.0-98.0) fL MCH 29.7 (27.0-33.0) pg MCHC 33.1 (31.0-35.0) g/dl RDW 14.5 (11.0-16.0) % Plt Count 253 (160-400) X10*3/uL MPV 10.6 (9.4-12.3) fL Immature Gran % (Auto) 0.3 (0.0-0.4) % Neut % (Auto) 74.7 H (45-73) % Lymph % (Auto) 17.4 L (20-40) % [place] % (Auto) 6.2 (2-11) % Eos % (Auto) 0.8 (0-4) % Baso % (Auto) 0.6 (0-2) % Lymph # (Auto) 1.6 (1.2-4.9) X10*3/uL [place] # (Auto) 0.6 (0.1-1.2) X10*3/uL Eos # (Auto) 0.1 (0.0-0.4) X10*3/uL Baso # (Auto) 0.1 (0.0-0.2) X10*3/uL Abs Immat Gran (auto) 0.03 (0.00-0.03) X10*3/uL Absolute Neuts (auto) 6.7 (2.0-8.3) x10*3/uL Absolute Nucleated RBC 0.000 (0.0-0.012) X10*3/uL Nucleated RBC % (auto) 0.0 (0.0-0.2) /100WBC Sodium 141 (135-145) mmol/L Potassium 4.4 (3.3-5.1) mmol/L Chloride 106 (96-108) mmol/L Carbon Dioxide 26 (22-29) mmol/L Anion Gap 13 (12-20) BUN 11 (9-16) mg/dL Creatinine 0.90 (0.5-1.4) mg/dL Estim Creat Clear Calc 65.4 Estimated GFR > 60 POC Glucose 184 H (60-115) mg/dL Random Glucose 160 H (60-115) mg/dL Calcium 9.5 (8.4-10.2) mg/dL Magnesium 1.9 (1.6-2.6) mg/dL Total Bilirubin 0.4 (0.0-1.0) mg/dL AST 22 (5-31) U/L ALT 20 (0-31) U/L Alkaline Phosphatase 74 (39-117) U/L B-Natriuretic Peptide (<100) pg/mL Total Protein 6.5 (6.5-8.0) g/dL Albumin 4.2 (3.5-5.0) g/dL Urine Color Urine Appearance Urine pH (5.0-8.0) Ur Specific [place] (1.005-1.025) Urine Protein (NEG-TRACE) MG/DL Urine Glucose (UA) (NEG) MG/DL Urine Ketones (NEG) MG/DL Urine Blood (NEG) Urine Nitrite (NEG) Ur Leukocyte Esterase (NEG) Urine RBC (0) /HPF Urine WBC (0-4) /HPF Ur Squamous Epith Cells /LPF Urine Bacteria /LPF COVID-19 ([facility]) (Negative) COVID-19 Clin Com 06/05/21 06/05/21 06/05/21 Range/Units 12:14 12:14 12:14 WBC (4.8-10.8) X10*3/uL RBC (4.20-5.50) X10*6/uL Hgb (12.0-16.0) g/dl Hct (37.0-47.0) % MCV (80.0-98.0) fL MCH (27.0-33.0) pg MCHC (31.0-35.0) g/dl RDW (11.0-16.0) % Plt Count (160-400) X10*3/uL MPV (9.4-12.3) fL Immature Gran % (Auto) (0.0-0.4) % Neut % (Auto) (45-73) % Lymph % (Auto) (20-40) % [place] % (Auto) (2-11) % Eos % (Auto) (0-4) % Baso % (Auto) (0-2) % Lymph # (Auto) (1.2-4.9) X10*3/uL [place] # (Auto) (0.1-1.2) X10*3/uL Eos # (Auto) (0.0-0.4) X10*3/uL Baso # (Auto) (0.0-0.2) X10*3/uL Abs Immat Gran (auto) (0.00-0.03) X10*3/uL Absolute Neuts (auto) (2.0-8.3) x10*3/uL Absolute Nucleated RBC (0.0-0.012) X10*3/uL Nucleated RBC % (auto) (0.0-0.2) /100WBC Sodium (135-145) mmol/L Potassium (3.3-5.1) mmol/L Chloride (96-108) mmol/L Carbon Dioxide (22-29) mmol/L Anion Gap (12-20) BUN (9-16) mg/dL Creatinine (0.5-1.4) mg/dL Estim Creat Clear Calc Estimated GFR POC Glucose (60-115) mg/dL Random Glucose (60-115) mg/dL Calcium (8.4-10.2) mg/dL Magnesium (1.6-2.6) mg/dL Total Bilirubin (0.0-1.0) mg/dL AST (5-31) U/L ALT (0-31) U/L Alkaline Phosphatase (39-117) U/L B-Natriuretic Peptide < 10 (<100) pg/mL Total Protein (6.5-8.0) g/dL Albumin (3.5-5.0) g/dL Urine Color YELLOW Urine Appearance CLEAR Urine pH 6.0 (5.0-8.0) Ur Specific [place] 1.010 (1.005-1.025) Urine Protein NEG (NEG-TRACE) MG/DL Urine Glucose (UA) >=1000 H (NEG) MG/DL Urine Ketones NEG (NEG) MG/DL Urine Blood NEG (NEG) Urine Nitrite NEG (NEG) Ur Leukocyte Esterase NEG (NEG) Urine RBC 0 (0) /HPF Urine WBC 0-2 (0-4) /HPF Ur Squamous Epith Cells TRACE /LPF Urine Bacteria NONE /LPF COVID-19 ([facility]) Negative (Negative) COVID-19 Clin Com See Note <Qamar Jacques MD - Last Filed: 06/05/21 17:30> Imaging Data CTA chest : Attestation: I personally reviewed and interpreted this imaging study as follows: <JAQUAN Palomino - Last Filed: 06/05/21 16:25> Radiologist's impression: CT/CT angio chest PE protocol IMPRESSION: Mild emphysema. No evidence of pulmonary embolism. ? VTE: negative <JAQUAN Palomino - Last Filed: 06/05/21 16:25> Chest x-ray: Attestation: I personally reviewed and interpreted this imaging study as follows: <JAQUAN Palomino - Last Filed: 06/05/21 16:25> Radiologist's impression: FINDINGS: The cardiac and mediastinal contours are stable. There is chronic scarring or subsegmental atelectasis at the left lung base. The lungs are otherwise clear. There is no pleural effusion or pneumothorax. Bony structures are unremarkable. XR/XR chest 1V IMPRESSION: No evidence for acute disease in the chest. ? <JAQUAN Palomino - Last Filed: 06/05/21 16:25> CT scan - abdomen: Attestation: I personally reviewed and interpreted this imaging study as follows: <JAQUAN Palomino - Last Filed: 06/05/21 16:25> Radiologist's impression: CT/CT abdomen pelvis w con IMPRESSION: Unusual enhancement appearance of the kidneys. Findings are questionable for possible ATN or nephritis. Clinical correlation and correlation with urinalysis is recommended. The renal veins are patent. Small bilateral nonobstructing renal stones. Mild intra and extrahepatic biliary duct dilatation similar to previous exams.. The gallbladder has been removed. ? Fleischner guidelines were followed. <JAQUAN Palomino - Last Filed: 06/05/21 16:25> ECG Data Attestation: I personally reviewed and interpreted this ECG as follows: <JAQUAN Palomino - Last Filed: 06/05/21 16:25> ECG interpretation date: 06/05/21 <JAQUAN Palomino - Last Filed: 06/05/21 16:25> ECG interpretation time: 11:56 <JAQUAN Palomino - Last Filed: 06/05/21 16:25> Prior ECG tracings: available for review <JAQUAN Palomino - Last Filed: 06/05/21 16:25> Interpretation: Ventricular rate of 89, IA normal, QRS normal, QT/QTC normal. ST elevations or inversions. No acute ischemia. No significant changes when comp ared with EKG from March 13, 2021. <JAQUAN Palomino - Last Filed: 06/05/21 16:25> Critical Care Time Critical Care Time Critical Care Time: Yes <JAQUAN Palomino - Last Filed: 06/05/21 16:25> Total Critical Care Time: 40 <JAQUAN Palomino - Last Filed: 06/05/21 16:25> Attestation: I attest to this time spent taking care of the patient, reviewing labs and images, and speaking to multiple specialists including Urology, Pulmonology and Nephrology. <JAQUAN Palomino - Last Filed: 06/05/21 16:25> Discharge Plan Discharge Clinical Impression: Emphysema lung, COPD (chronic obstructive pulmonary disease), Abdominal pain <JAQUAN Palomino - Last Filed: 06/05/21 16:25> Patient Disposition: Home, Self-Care <JAQUAN Palomino - Last Filed: 06/05/21 16:25> Instructions: Emphysema (ED), COPD (Chronic Obstructive Pulmonary Disease) (ED), Abdominal Pain (ED) <JAQUAN Palomino - Last Filed: 06/05/21 16:25> Additional Instructions: Take your medications as prescribed. I offered for you to speak to Case Management, and Physical therapy to look in to possible stay at short-term rehab, or finding you additional resources, you declined this, and told me you did not want to speak to them and you wanted to go home. Follow-up with your primary care provider this week. 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 Return to the emergency department with new or worsening symptoms. Such as fevers, chills, nausea, vomiting, severe abdominal pain, chest pain, shortness of breath. In case of emergency call 911 I attest that I have reviewed patients [employer], and at the time prescribing the patient a controlled substance is appropriate based off of patients diagnosis and treatment plan. <JAQUAN Palomino - Last Filed: 06/05/21 16:25> Prescriptions: New morphine 15 mg tablet 15 mg PO Q8H PRN (Reason: pain) Qty: 6 RF: 0 No Action fenofibrate 160 mg tablet 160 mg PO DAILY Qty: 90 RF: 3 (DME) FreeStyle Jill 2 [place] Misc See Rx Instructions .ROUTE .MEDSUPPLY Qty: 1 RF: 0 (DME) FreeStyle Jill 2 Sensor Kit See Rx Instructions .ROUTE .MEDSUPPLY Qty: 2 RF: 11 docusate sodium 100 mg capsule 100 mg PO BID Qty: 60 RF: 4 cholecalciferol (vitamin D3) 50 mcg (2,000 unit) capsule 50 mcg PO DAILY Qty: 90 RF: 1 Jardiance 25 mg tablet 25 mg PO DAILY 30 Days Qty: 30 RF: 11 (DME) lancets [FreeStyle Lancets] 28 gauge misc See Rx Instructions .MEDSUPPLY Qty: 100 RF: 11 gabapentin 600 mg tablet 600 mg PO TID 30 Days Qty: 90 RF: 12 levothyroxine 25 mcg tablet 25 mcg PO QAM Qty: 90 RF: 3 Tresiba FlexTouch U-100 100 unit/mL (3 mL) insulin pen 24 unit subcut DAILY Qty: 15 RF: 6 atorvastatin 40 mg tablet 40 mg PO DAILY Qty: 30 RF: 11 (DME) pulse oximeter See Rx Instructions .Route .MEDSUPPLY Qty: 1 RF: 0 ondansetron 4 mg tablet,disintegrating 4 mg PO Q8H PRN (Reason: nausea and vomiting) Qty: 20 RF: 0 pioglitazone 15 mg Tablet 15 mg PO DAILY RF: 0 mirtazapine 7.5 mg tablet 1 tab PO BEDTIME RF: 0 Victoza 3-Jeanmarie 0.6 mg/0.1 mL (18 mg/3 mL) pen injector 1.8 mg subcut DAILY RF: 0 sennosides [senna] 8.6 mg tablet 17.2 mg PO BEDTIME RF: 0 esomeprazole magnesium 40 mg capsule,delayed release(DR/EC) 40 mg PO DAILY@0630 RF: 0 levocetirizine 5 mg tablet 5 mg PO DAILY RF: 0 insulin aspart U-100 100 unit/mL (3 mL) insulin pen See Protocol unit subcut TIDAC RF: 0 (DME) pen needle, diabetic 32 gauge x 5/32 needle See Rx Instructions ea .ROUTE .MEDSUPPLY Qty: 50 RF: 0 aripiprazole 15 mg tablet 15 mg PO DAILY RF: 0 (DME) FreeStyle Lite Strips Strip See Rx Instructions ea Not Applicable TID Qty: 10 RF: 0 albuterol sulfate 90 mcg/actuation HFA aerosol inhaler 2 puff inhalation Q4H PRN (Reason: Shortness Of Breath) RF: 0 melatonin 5 mg tablet 5 mg PO BEDTIME RF: 0 Advair HFA 115-21 mcg/actuation HFA aerosol inhaler 2 puff inhalation Q12H 30 Days Qty: 12 RF: 5 Alphagan P 0.1 % drops 1 drp ophthalmic (eye) BID RF: 0 <JAQUAN Palomino - Last Filed: 06/05/21 16:25> Referrals: Nicholas Richter MD [Physician] - 2 days Jolanta Concepcion MD [Primary Care Provider] - 2 days <JAQUAN Palomino - Last Filed: 06/05/21 16:25>
--- NOTE | 2021-06-05 11:33 | ECG_ITS ---
Test Reason : sob Blood Pressure : / mmHG Vent. Rate : 089 BPM Atrial Rate : 089 BPM P-R Int : 154 ms QRS Dur : 074 ms QT Int : 348 ms P-R-T Axes : 054 066 063 degrees QTc Int : 423 ms Normal sinus rhythm Normal ECG When compared with ECG of 13-MAR-2021 12:16, No significant change was found Referred By: Lambert Corbin Electronically Signed By:Axel Spear
[2021-06-05 11:44] LABS: Glucose, Whole Blood 184 mg/dL (60-115)
[2021-06-05 12:19] LABS: MANUAL DIFF FLAG NO
[2021-06-05 12:20] LABS: Basophils Absolute Auto 0.1 X10*3/uL (0.0-0.2); Basophils Percent Auto 0.6 % (0-2); Eosinophils Absolute Auto 0.1 X10*3/uL (0.0-0.4); Eosinophils Percent Auto 0.8 % (0-4); Hematocrit 44.7 % (37.0-47.0); Hemoglobin 14.8 g/dl (12.0-16.0); Imm Gran Abs Auto 0.03 X10*3/uL (0.00-0.03); Imm Gran Pct Auto 0.3 % (0.0-0.4); Lymphocytes Absolute Auto 1.6 X10*3/uL (1.2-4.9); Lymphocytes Percent Auto 17.4 % (20-40); Mean Corpuscular HGB Conc 33.1 g/dl (31.0-35.0); Mean Corpuscular Hemoglobin 29.7 pg (27.0-33.0); Mean Corpuscular Volume 89.6 fL (80.0-98.0); Mean Platelet Volume 10.6 fL (9.4-12.3); Monocytes Absolute Auto 0.6 X10*3/uL (0.1-1.2); Monocytes Percent Auto 6.2 % (2-11); Neutrophils Absolute Auto 6.7 x10*3/uL (2.0-8.3); Neutrophils Percent Auto 74.7 % (45-73); Platelet Count 253 X10*3/uL (160-400); Red Blood Count 4.99 X10*6/uL (4.20-5.50); Red Cell Distribution Width 14.5 % (11.0-16.0)
[2021-06-05 12:33] LABS: Appearance Urine CLEAR; Color Urine YELLOW; Glucose Urine UA >=1000 MG/DL (NEG); Leukocyte Esterase Urine NEG (NEG); Nitrite Urine NEG (NEG); Urine Blood NEG (NEG); Urine Ketones NEG (NEG); Urine Protein NEG (NEG-TRACE)
[2021-06-05 12:39] LABS: Alanine Aminotransferase 20 U/L (0-31); Albumin Level 4.2 g/dL (3.5-5.0); Alkaline Phosphatase 74 U/L (39-117); Anion Gap 13 (12-20); Aspartate Amino Transferase 22 U/L (5-31); Bilirubin Total 0.4 mg/dL (0.0-1.0); Blood Urea Nitrogen 11 mg/dL (9-16); Calcium 9.5 mg/dL (8.4-10.2); Carbon Dioxide 26 mmol/L (22-29); Chloride 106 mmol/L (96-108); Creatinine Clr Calc Pharmacy 65.4; Estimated Glomerular Filt Rate > 60; Glucose Random 160 mg/dL (60-115); Magnesium 1.9 mg/dL (1.6-2.6); Potassium 4.4 mmol/L (3.3-5.1); Sodium 141 mmol/L (135-145); Total Protein 6.5 g/dL (6.5-8.0)
[2021-06-05 12:41] LABS: B Type Natriuretic Peptide < 10 pg/mL (<100)
[2021-06-05 12:44] LABS: RBC Urine 0 /HPF (0); Squamous Epithelial Cell Urine TRACE /LPF; WBC Urine 0-2 /HPF (0-4)
[2021-06-05 12:47] LABS: COVID-19 Test Negative (Negative); IDNOW Serial# 9DD0AD1C
[2021-06-05 13:39] VITALS: RESP 18
[2021-06-05] MEDS: Morphine Sulfate 4 MG/ML CARTRIDGE IVPUSH (13:39)
[2021-06-05] MEDS: iohexoL 350 MG/ML 100 ML INFUS..BTL IV ×2 (13:40→13:42)
[2021-06-05 14:00] VITALS: BP 111/48; PULSE 90; RESP 18; O2SAT 90
[2021-06-05 16:09] VITALS: BP 113/74; PULSE 107; RESP 18; TEMP 36.8; O2SAT 94
== END 2021-06-05 17:39 | disposition home or self-care (01) ==
PROVIDERS: Physician Assistant; Emergency Provider Emergency Medicine; PCP Internal Medicine
DX: J43.9 Emphysema, unspecified (principal); R07.81 Pleurodynia; F33.1 Major depressive disorder, recurrent, moderate; I10 Essential (primary) hypertension; F17.210 Nicotine dependence, cigarettes, uncomplicated; Z71.6 Tobacco abuse counseling; Z20.822 Contact with and (suspected) exposure to COVID-19; Z79.899 Other long term (current) drug therapy
CPT/HCPCS: 36415; 71045; 71275; 74177; 80053; 81001; 82947; 83735; 83880; 85025; 87635; 93005; 96374; 99284; 99291; J2270; Q9967

== ENCOUNTER 2021-06-07 07:40 | Emergency (ER) | payer MEDICARE, SELFPAY ==
--- NOTE | ~2021-06-07 | XR_ITS ---
EXAMINATION: XR RIBS, RIGHT CLINICAL INFORMATION: Right rib tenderness COMPARISON: CT chest dated 06/05/2021 TECHNIQUE: 3 views of the right ribs were obtained. FINDINGS: Left basilar subsegmental atelectasis. No pneumothorax, or pleural effusion. The cardiomediastinal silhouette and pulmonary vasculature are normal. Osseous structures are unremarkable. Ribs are intact. No fractures are identified. XR/XR ribs RT min 3V w CXR1V IMPRESSION: No displaced rib fractures. Left basilar subsegmental atelectasis.
[2021-06-07 07:53] VITALS: BP 113/49; BP 130/90; PULSE 104; RESP 22; TEMP 36.9; O2SAT 90; O2SAT 93; BMI 33.9
[2021-06-07 08:00] VITALS: BP 113/49; PULSE 104; RESP 20; O2SAT 93
--- NOTE | 2021-06-07 08:01 | ED.CHESTPAIN ---
HPI - Chest Pain General Chief Complaint: Chest Pain Stated Complaint: chest wall pain Time Seen by Provider: 06/07/21 08:01 Source: patient Mode of arrival: EMS Limitations: no limitations History of Present Illness HPI narrative: patient with right flank pain worse with coughing. Patient was seen for the same thing two days ago. Work up was negative. CT of chest and abdomen revealed abnormal kidneys, no hydronephrosis, chronic pulmonary issues, no acute process, no PE. Onset (ago): day(s) Prior episodes: Yes Pain location: right chest Severity: mild Quality: sharp Associated symptoms: dyspnea and cough Related Data Home Medications Medication Instructions Recorded Confirmed aripiprazole 15 mg tablet 15 mg PO DAILY 05/19/20 05/11/21 blood sugar diagnostic #10 ea 05/19/20 05/11/21 pen needle, diabetic 32 gauge x #50 ea 05/19/20 05/11/21 albuterol sulfate 90 mcg/actuation 2 puff INHALATION Q4H PRN g 12/11/20 05/11/21 aerosol inhaler melatonin 5 mg tablet 5 mg PO BEDTIME 12/11/20 05/11/21 brimonidine 0.1 % eye drops 1 drp OPHTHALMIC (EYE) BID 01/06/21 05/11/21 (Alphagan P) esomeprazole magnesium 40 mg 40 mg PO DAILY@0630 03/13/21 05/11/21 capsule,delayed release levocetirizine 5 mg tablet 5 mg PO DAILY 03/13/21 05/11/21 liraglutide 0.6 mg/0.1 mL (18 mg/3 1.8 mg SUBCUT DAILY 03/13/21 05/11/21 mL) subcutaneous pen injector (Victoza 3-Jeanmarie) mirtazapine 7.5 mg tablet 1 tab PO BEDTIME 03/13/21 05/11/21 pioglitazone 15 mg tablet 15 mg PO DAILY 03/13/21 05/11/21 sennosides 8.6 mg tablet (senna) 17.2 mg PO BEDTIME 03/13/21 05/11/21 insulin aspart U-100 100 unit/mL See Protocol SUBCUT TIDAC 03/23/21 05/11/21 (3 mL) subcutaneous pen Previous Rx's Medication Instructions Recorded fenofibrate 160 mg tablet 160 mg PO DAILY #90 tab 10/06/20 flash glucose scanning reader #1 ea 10/27/20 (FreeStyle Jill 2 [place]) flash glucose sensor (FreeStyle #2 ea 12/25/20 Jill 2 Sensor) cholecalciferol (vitamin D3) 50 50 mcg PO DAILY #90 cap 02/09/21 mcg (2,000 unit) capsule docusate sodium 100 mg capsule 100 mg PO BID #60 cap 02/09/21 ondansetron 4 mg disintegrating 4 mg PO Q8H PRN #20 tab 03/13/21 tablet fluticasone propionate 115 2 puff INHALATION Q12H 30 Days #12 03/16/21 mcg-salmeterol 21 mcg/actuation g HFA inhaler (Advair HFA) empagliflozin 25 mg tablet 25 mg PO DAILY 30 Days #30 tab 03/23/21 (Jardiance) lancets 28 gauge (FreeStyle #100 ea 03/23/21 Lancets) gabapentin 600 mg tablet 600 mg PO TID 30 Days #90 tab 03/24/21 levothyroxine 25 mcg tablet 25 mcg PO QAM #90 tab 04/08/21 insulin degludec 100 unit/mL (3 24 unit (0.24 mL) SUBCUT DAILY #15 04/21/21 mL) subcutaneous pen (Tresiba ml FlexTouch U-100 insulin) atorvastatin 40 mg tablet 40 mg PO DAILY #30 tab 05/06/21 pulse oximeter #1 ea 05/12/21 morphine 15 mg immediate release 15 mg PO Q8H PRN #6 tab 06/05/21 tablet cyclobenzaprine 10 mg tablet 10 mg PO TID #20 tab 06/07/21 gabapentin 100 mg capsule 100 mg PO TID #20 cap 06/07/21 Allergies Allergy/AdvReac Type Severity Reaction Status Date / Time ziprasidone [From Geodon] Allergy Mild RASH-PALPIT Verified 05/11/21 11:05 ATIONS aspirin [ASPIRIN] Allergy Unknown GI bleed, Verified 05/11/21 11:05 stomach upset azithromycin Allergy Unknown facial Verified 05/11/21 11:05 swelling cephalexin [From KEFLEX] Allergy Unknown UNKNWON Verified 05/11/21 11:05 ibuprofen [IBUPROFEN] Allergy Unknown UNKNOWN, Verified 05/11/21 11:05 stomach upset lisinopril Allergy Unknown cough Verified 05/11/21 11:05 metformin [METFORMIN] Allergy Unknown NAUSEA & Verified 05/11/21 11:05 VOMITING, GI upset valsartan [From Diovan] Allergy Unknown UNKNOWN Verified 05/11/21 11:05 NSAIDS (Non-Steroidal AdvReac Unknown HX OF GI Verified 05/11/21 11:05 Anti-Inflamma BLEED [NSAIDS (NON-STEROIDAL ANTI-INFLAMMA] tramadol [Ultram] AdvReac Unknown GI upset Verified 05/11/21 11:05 Review of Systems Constitutional: Constitutional: Reports no additional constitutional complaints Eyes: Eyes: Reports no additional eye complaints ENT: Denies dizziness Cardiovascular: Cardiovascular: Reports no additional cardiovascular complaints Respiratory: Respiratory: Reports as per HPI Gastrointestinal: Gastrointestinal: Reports no additional gastrointestinal complaints Genitourinary: Genitourinary: Reports no additional female genitourinary complaints Musculoskeletal: Musculoskeletal: Reports no additional musculoskeletal complaints Integumentary/Breasts: Skin/Breast: Denies rash Neurologic: Reports system reviewed and no additional complaints, except as documented, Denies dizziness and Denies Sensory deficit (Neuro) Psychiatric: Psychiatric: Denies anxiety PMFSH Past Medical History Medical History Constipation COPD (chronic obstructive pulmonary disease) Depression HLD (hyperlipidemia) HTN (hypertension) Multinodular thyroid Nocturnal hypoxemia Osteopenia (~2015) Personal history of nicotine dependence Pulmonary nodule Smoker Spinal stenosis T2DM (type 2 diabetes mellitus) (~2008) Vitamin D deficiency Surgical History History of cardiac catheterization History of lithotripsy Hx of arthroscopy of left knee Hx of cholecystectomy Hx of colonoscopy Hx of spinal fusion S/P thyroid biopsy Family History Family History Father No problems noted. Mother Cancer Diabetes Social History Social History Household Members: None Housing: Apartment Alcohol intake: never Patient Tobacco Use Status: Current everyday Tobacco user Smoking Start Date: 04/01/1964 Tobacco use type: Cigarette Cigarette Packs Per Day: 1.5 Cigarettes Per Day: 30.0 Smoked in Last 30 Days: Yes e-Cigarette/Vaping Use: Former Use Second Hand Smoke Exposure: No Use of substances other than those prescribed or required for medical reasons: No Advance Directives: Yes Advance Directives on File: Yes Advance Directives Date on File: 04/02/21 Current occupational status: retired Physical Exam Vital Signs: Vital Signs: Last Vital Signs Temp 98.5 F 06/07/21 07:53 Pulse 104 H 06/07/21 08:00 Resp 20 06/07/21 08:00 BP 113/49 L 06/07/21 08:00 Pulse Ox 93 06/07/21 08:00 Oxygen Flow Rate 2 06/07/21 07:53 BMI result Body Mass Index 33.9 Const: Other: female looking older than stated age Nutritional Appearance: average body habitus Orientation/consciousness: oriented to person and patient oriented x3 Limitations: no limitations HENMT: Head: Yes normal to inspection Ears: external ears normal General nose exam: Normal external nose present Mouth: Normal oral and palatal mucosa present and oropharynx normal Throat: Yes posterior oropharynx normal Eyes: General: appearance normal, both eyes and all related structures Neck: Other: supple Neck: Yes normal visual inspection Chest: Other: right rib tenderness to palpation Resp: Other: Diffuse wheezing and rhonchi Cardio: Jugular venous distension: no JVD Rate: regular rate Rhythm: regular rhythm Heart sounds: S1 normal heart sound present and S2 normal heart sound present GI: Inspection: Yes normal to inspection Palpation (GI): Soft to palpation, nontender and No hepatosplenomegaly present Auscultation: normal bowel sounds : General: Yes no CVA tenderness Back/Spine/Pelvis: Back: no CVA tenderness Skin: General skin exam: no rashes or lesions noted Neuro: General: oriented to person and patient oriented x3 Cranial nerves: Yes CN's II-XII intact bilaterally Motor exam (neuro): 5/5 motor strength present throughout Sensory Exam: No Sensory deficit (Neuro) Extrem: General: Yes normal to inspection Psych: Appearance: grossly normal Course Reevaluation(s) Reevaluation #1: patient with rib pain when she coughs will add gabapentin and flexeril to her medications Time: 10:00 MDM - Chest Pain Lab Data Result diagrams: 06/07/21 08:33 06/07/21 08:33 Labs: Lab Results 06/07/21 06/07/21 Range/Units 08:33 08:33 WBC 9.2 (4.8-10.8) X10*3/uL RBC 4.72 (4.20-5.50) X10*6/uL Hgb 13.9 (12.0-16.0) g/dl Hct 42.2 (37.0-47.0) % MCV 89.4 (80.0-98.0) fL MCH 29.4 (27.0-33.0) pg MCHC 32.9 (31.0-35.0) g/dl RDW 14.2 (11.0-16.0) % Plt Count 245 (160-400) X10*3/uL MPV 10.2 (9.4-12.3) fL Immature Gran % (Auto) 0.2 (0.0-0.4) % Neut % (Auto) 78.2 H (45-73) % Lymph % (Auto) 14.1 L (20-40) % [place] % (Auto) 6.3 (2-11) % Eos % (Auto) 0.9 (0-4) % Baso % (Auto) 0.3 (0-2) % Lymph # (Auto) 1.3 (1.2-4.9) X10*3/uL [place] # (Auto) 0.6 (0.1-1.2) X10*3/uL Eos # (Auto) 0.1 (0.0-0.4) X10*3/uL Baso # (Auto) 0.0 (0.0-0.2) X10*3/uL Abs Immat Gran (auto) 0.02 (0.00-0.03) X10*3/uL Absolute Neuts (auto) 7.2 (2.0-8.3) x10*3/uL Absolute Nucleated RBC 0.000 (0.0-0.012) X10*3/uL Nucleated RBC % (auto) 0.0 (0.0-0.2) /100WBC Sodium 136 (135-145) mmol/L Potassium 4.6 (3.3-5.1) mmol/L Chloride 100 (96-108) mmol/L Carbon Dioxide 25 (22-29) mmol/L Anion Gap 16 (12-20) BUN 10 (9-16) mg/dL Creatinine 0.80 (0.5-1.4) mg/dL Estim Creat Clear Calc 73.5 Estimated GFR > 60 Random Glucose 149 H (60-115) mg/dL Calcium 9.6 (8.4-10.2) mg/dL Imaging Data Chest x-ray: Radiologist's impression: FINDINGS: Left basilar subsegmental atelectasis. No pneumothorax, or pleural effusion. The cardiomediastinal silhouette and pulmonary vasculature are normal. Osseous structures are unremarkable. Ribs are intact. No fractures are identified. XR/XR ribs RT min 3V w CXR1V IMPRESSION: No displaced rib fractures. Left basilar subsegmental atelectasis. ? Discharge Plan Discharge Clinical Impression: Acute costochondritis Patient Disposition: Home, Self-Care Instructions: Costochondritis (ED) Prescriptions: New gabapentin 100 mg capsule 100 mg PO TID Qty: 20 RF: 0 cyclobenzaprine 10 mg tablet 10 mg PO TID Qty: 20 RF: 0 No Action fenofibrate 160 mg tablet 160 mg PO DAILY Qty: 90 RF: 3 (DME) FreeStyle Jill 2 [place] Misc See Rx Instructions .ROUTE .MEDSUPPLY Qty: 1 RF: 0 (DME) FreeStyle Jill 2 Sensor Kit See Rx Instructions .ROUTE .MEDSUPPLY Qty: 2 RF: 11 docusate sodium 100 mg capsule 100 mg PO BID Qty: 60 RF: 4 cholecalciferol (vitamin D3) 50 mcg (2,000 unit) capsule 50 mcg PO DAILY Qty: 90 RF: 1 Jardiance 25 mg tablet 25 mg PO DAILY 30 Days Qty: 30 RF: 11 (DME) lancets [FreeStyle Lancets] 28 gauge misc See Rx Instructions .MEDSUPPLY Qty: 100 RF: 11 gabapentin 600 mg tablet 600 mg PO TID 30 Days Qty: 90 RF: 12 levothyroxine 25 mcg tablet 25 mcg PO QAM Qty: 90 RF: 3 Tresiba FlexTouch U-100 100 unit/mL (3 mL) insulin pen 24 unit subcut DAILY Qty: 15 RF: 6 atorvastatin 40 mg tablet 40 mg PO DAILY Qty: 30 RF: 11 (DME) pulse oximeter See Rx Instructions .Route .MEDSUPPLY Qty: 1 RF: 0 ondansetron 4 mg tablet,disintegrating 4 mg PO Q8H PRN (Reason: nausea and vomiting) Qty: 20 RF: 0 pioglitazone 15 mg Tablet 15 mg PO DAILY RF: 0 mirtazapine 7.5 mg tablet 1 tab PO BEDTIME RF: 0 Victoza 3-Jeanmarie 0.6 mg/0.1 mL (18 mg/3 mL) pen injector 1.8 mg subcut DAILY RF: 0 sennosides [senna] 8.6 mg tablet 17.2 mg PO BEDTIME RF: 0 esomeprazole magnesium 40 mg capsule,delayed release(DR/EC) 40 mg PO DAILY@0630 RF: 0 levocetirizine 5 mg tablet 5 mg PO DAILY RF: 0 insulin aspart U-100 100 unit/mL (3 mL) insulin pen See Protocol unit subcut TIDAC RF: 0 morphine 15 mg tablet 15 mg PO Q8H PRN (Reason: pain) Qty: 6 RF: 0 (DME) pen needle, diabetic 32 gauge x 5/32 needle See Rx Instructions ea .ROUTE .MEDSUPPLY Qty: 50 RF: 0 aripiprazole 15 mg tablet 15 mg PO DAILY RF: 0 (DME) FreeStyle Lite Strips Strip See Rx Instructions ea Not Applicable TID Qty: 10 RF: 0 albuterol sulfate 90 mcg/actuation HFA aerosol inhaler 2 puff inhalation Q4H PRN (Reason: Shortness Of Breath) RF: 0 melatonin 5 mg tablet 5 mg PO BEDTIME RF: 0 Advair HFA 115-21 mcg/actuation HFA aerosol inhaler 2 puff inhalation Q12H 30 Days Qty: 12 RF: 5 Alphagan P 0.1 % drops 1 drp ophthalmic (eye) BID RF: 0
--- NOTE | 2021-06-07 08:08 | PC.NURSE ---
Pt comes in via EMS from home w/complaints of R sided chest wall pain made worse with chronic cough and palpation. Pt was seen here 2 days ago for the same. Pt is A&Ox3, Lungs clear on L side, R side with exp rhonchi, HR WNL, full work up completed on Tuesday, pt has hx of COPD and on 2L NC at baseline. Pt denies CP, N/V/D or any other complaints at this time. Awaiting MD orders, will continue to monitor. Call [facility] within reach.
[2021-06-07 08:39] LABS: Basophils Percent Auto 0.3 % (0-2); Eosinophils Absolute Auto 0.1 X10*3/uL (0.0-0.4); Eosinophils Percent Auto 0.9 % (0-4); Hematocrit 42.2 % (37.0-47.0); Hemoglobin 13.9 g/dl (12.0-16.0); Imm Gran Abs Auto 0.02 X10*3/uL (0.00-0.03); Imm Gran Pct Auto 0.2 % (0.0-0.4); Lymphocytes Absolute Auto 1.3 X10*3/uL (1.2-4.9); Lymphocytes Percent Auto 14.1 % (20-40); MANUAL DIFF FLAG NO; Mean Corpuscular HGB Conc 32.9 g/dl (31.0-35.0); Mean Corpuscular Hemoglobin 29.4 pg (27.0-33.0); Mean Corpuscular Volume 89.4 fL (80.0-98.0); Mean Platelet Volume 10.2 fL (9.4-12.3); Monocytes Absolute Auto 0.6 X10*3/uL (0.1-1.2); Monocytes Percent Auto 6.3 % (2-11); Neutrophils Absolute Auto 7.2 x10*3/uL (2.0-8.3); Neutrophils Percent Auto 78.2 % (45-73); Platelet Count 245 X10*3/uL (160-400); Red Blood Count 4.72 X10*6/uL (4.20-5.50); Red Cell Distribution Width 14.2 % (11.0-16.0); White Blood Count 9.2 X10*3/uL (4.8-10.8)
[2021-06-07] MEDS: Ketorolac Tromethamine 30 MG/ML VIAL IVPUSH (08:45)
[2021-06-07 09:11] LABS: Anion Gap 16 (12-20); Blood Urea Nitrogen 10 mg/dL (9-16); Calcium 9.6 mg/dL (8.4-10.2); Carbon Dioxide 25 mmol/L (22-29); Chloride 100 mmol/L (96-108); Creatinine Clr Calc Pharmacy 73.5; Estimated Glomerular Filt Rate > 60; Glucose Random 149 mg/dL (60-115); Potassium 4.6 mmol/L (3.3-5.1); Sodium 136 mmol/L (135-145)
[2021-06-07 10:00] VITALS: BP 115/53; PULSE 96; RESP 18; O2SAT 94
--- NOTE | 2021-06-07 10:43 | PC.NURSE ---
Pt pplan for DC, admin secretary to book transport, pt is locked out of house, called maddi Oquendo and left a VM for her to call back. Awaiting return call Will continue to monitor.
[2021-06-07 12:00] VITALS: BP 117/78; PULSE 84; RESP 14; O2SAT 96
[2021-06-07] MEDS: Gabapentin 100 MG CAPSULE PO (12:19)
[2021-06-07] MEDS: Cyclobenzaprine HCl 10 MG TABLET PO (12:19)
--- NOTE | 2021-06-07 14:11 | PC.NURSE ---
Report to EMS crew, pt A&Ox3, 2L NC at baseline.
== END 2021-06-07 14:14 | disposition home or self-care (01) ==
PROVIDERS: Emergency Provider Emergency Medicine; PCP Internal Medicine
DX: M94.0 Chondrocostal junction syndrome [Tietze] (principal); I10 Essential (primary) hypertension; E78.5 Hyperlipidemia, unspecified; E11.9 Type 2 diabetes mellitus without complications; F17.200 Nicotine dependence, unspecified, uncomplicated; Z79.4 Long term (current) use of insulin; Z79.899 Other long term (current) drug therapy
CPT/HCPCS: 36415; 71101; 80048; 85025; 96374; 99284; J1885

== ENCOUNTER → 2021-06-10 15:30 | Outpatient (BNVA) | payer MEDICARE, SELFPAY | PROVIDERS: PCP Internal Medicine; Visit Provider Internal Medicine | DX: G47.34 Idiopathic sleep related nonobstructive alveolar hypoventilation (principal); J44.9 Chronic obstructive pulmonary disease, unspecified; F17.210 Nicotine dependence, cigarettes, uncomplicated; R07.9 Chest pain, unspecified | CPT/HCPCS: 99212 ==

== ENCOUNTER 2021-06-15 14:45 | Emergency (ER) | payer MEDICARE, SELFPAY ==
--- NOTE | ~2021-06-15 | XR_ITS ---
EXAMINATION: XR CHEST CLINICAL INFORMATION: Right-sided chest pain. COMPARISON: Chest 06/07/2021 TECHNIQUE: Frontal view of the chest was obtained. FINDINGS: The lungs are well-expanded with platelike atelectasis left CP angle. Both lungs are expanded and clear. The heart size and pulmonary vascularity is normal. No gross bony abnormality seen. XR/XR chest 1V IMPRESSION: Platelike atelectasis left CP angle. Rest of the lungs are clear.
--- NOTE | ~2021-06-15 | US_ITS ---
EXAMINATION: US right KIDNEYS CLINICAL INFORMATION: Right-sided pain COMPARISON: CT scan from 06/05/2021 TECHNIQUE: Real-time imaging of the kidneys. Right kidney FINDINGS: RIGHT KIDNEY: Dimensions: 11.7 x 6.4 x 5.2 cm Echogenicity: Prominent cortical medullary marking correlate with the finding described on the CT scan which might be sequela of underlying renal cortical disease including possible nephritis. Parenchymal thickness and contour: Normal Pelvicalyceal dilation: No hydronephrosis. Calculi: None Cysts/mass: None US/US renal RT IMPRESSION: *No ultrasound evidence of renal obstruction or hydronephrosis. *Redemonstration of nonspecific prominent cortical medullary marking, as suggested on the CT scan raise concern for possible underlying renal cortical disease including possible nephritis. Please correlate clinically. *No ultrasound evidence of renal abscess or stones. Perinephric fat remain clear.
[2021-06-15 15:09] VITALS: BP 115/43; BP 99/60; PULSE 104; PULSE 98; RESP 18; TEMP 37; O2SAT 90; O2SAT 95; BMI 33.9
--- NOTE | 2021-06-15 15:29 | ED_ITS ---
HPI - Chest Pain General Stated Complaint: SOB, HX COPD Time Seen by Provider: 06/15/21 15:17 Source: patient and old records reviewed Mode of arrival: EMS Limitations: no limitations History of Present Illness HPI narrative: CTA negative 06/05 with same symptoms - no PE and CT abdomen abnormal renal picture ?ATN vs nephritis (Urology and Nephrology both weighed in on CT scan and felt this was not cause of pain) she is on prednisone taper and still has doxycycline (triage not accurate) from her pulmonary visit on 06/[address] Richter she reports daily pain in R rib and nothing works, it hurts, those patches don't help. Tylenol is like taking a glorified aspirin. I need something for pain now. complaint: other (R sided rib pain) Timing of current episode: daily Prior episodes: Yes Onset: during rest and during exertion Pain location: right chest (right lateral ribs) Pain radiation: right arm (hurts if she moves her right arm) Severity: moderate Quality: aching Relieving factors: nothing Exacerbating factors: inspiration, palpation and movement Context: other (states hurts to cough move or raise R arm) Treatment prior to arrival: other (antibiotics and steroids though CT scan shows no pneumonia from 06/05) Related Data Home Medications Medication Instructions Recorded Confirmed aripiprazole 15 mg tablet 15 mg PO DAILY 05/19/20 06/09/21 blood sugar diagnostic #10 ea 05/19/20 06/09/21 pen needle, diabetic 32 gauge x #50 ea 05/19/20 06/09/21 albuterol sulfate 90 mcg/actuation 2 puff INHALATION Q4H PRN g 12/11/20 06/09/21 aerosol inhaler melatonin 5 mg tablet 5 mg PO BEDTIME 12/11/20 06/09/21 brimonidine 0.1 % eye drops 1 drp OPHTHALMIC (EYE) BID 01/06/21 06/09/21 (Alphagan P) esomeprazole magnesium 40 mg 40 mg PO DAILY@0630 03/13/21 06/09/21 capsule,delayed release levocetirizine 5 mg tablet 5 mg PO DAILY 03/13/21 06/09/21 liraglutide 0.6 mg/0.1 mL (18 mg/3 1.8 mg SUBCUT DAILY 03/13/21 06/09/21 mL) subcutaneous pen injector (Victoza 3-Jeanmarie) mirtazapine 7.5 mg tablet 1 tab PO BEDTIME 03/13/21 06/09/21 pioglitazone 15 mg tablet 15 mg PO DAILY 03/13/21 06/09/21 sennosides 8.6 mg tablet (senna) 17.2 mg PO BEDTIME 03/13/21 06/09/21 insulin aspart U-100 100 unit/mL See Protocol SUBCUT TIDAC 03/23/21 06/09/21 (3 mL) subcutaneous pen Previous Rx's Medication Instructions Recorded fenofibrate 160 mg tablet 160 mg PO DAILY #90 tab 10/06/20 flash glucose scanning reader #1 ea 10/27/20 (FreeStyle Jill 2 [place]) flash glucose sensor (FreeStyle #2 ea 12/25/20 Jill 2 Sensor) cholecalciferol (vitamin D3) 50 50 mcg PO DAILY #90 cap 02/09/21 mcg (2,000 unit) capsule docusate sodium 100 mg capsule 100 mg PO BID #60 cap 02/09/21 ondansetron 4 mg disintegrating 4 mg PO Q8H PRN #20 tab 03/13/21 tablet fluticasone propionate 115 2 puff INHALATION Q12H 30 Days #12 03/16/21 mcg-salmeterol 21 mcg/actuation g HFA inhaler (Advair HFA) empagliflozin 25 mg tablet 25 mg PO DAILY 30 Days #30 tab 03/23/21 (Jardiance) lancets 28 gauge (FreeStyle #100 ea 03/23/21 Lancets) gabapentin 600 mg tablet 600 mg PO TID 30 Days #90 tab 03/24/21 levothyroxine 25 mcg tablet 25 mcg PO QAM #90 tab 04/08/21 insulin degludec 100 unit/mL (3 24 unit (0.24 mL) SUBCUT DAILY #15 04/21/21 mL) subcutaneous pen (Tresiba ml FlexTouch U-100 insulin) atorvastatin 40 mg tablet 40 mg PO DAILY #30 tab 05/06/21 pulse oximeter #1 ea 05/12/21 morphine 15 mg immediate release 15 mg PO Q8H PRN #6 tab 06/05/21 tablet cyclobenzaprine 10 mg tablet 10 mg PO TID #20 tab 06/07/21 benzonatate 100 mg capsule 100 mg PO TID #30 cap 06/09/21 bisacodyl 5 mg tablet,delayed 10 mg PO BEDTIME PRN 2 Days #30 tab 06/09/21 release (Dulcolax (bisacodyl)) doxycycline hyclate 100 mg tablet 100 mg PO BID #14 tab 06/09/21 ipratropium 0.5 mg-albuterol 3 mg 3 ml INHALATION Q6-8H PRN #180 ml 06/09/21 (2.5 mg base)/3 mL nebulization soln lidocaine 5 % topical patch 1 patch TOPICAL DAILY #30 ea 06/09/21 (Lidoderm) prednisone 10 mg tablet 10 mg PO DAILY #30 tab 06/09/21 benzonatate 200 mg capsule 200 mg PO TID PRN #30 cap 06/15/21 lidocaine 5 % topical patch 1 patch TOPICAL DAILY #30 ea 06/15/21 (Lidoderm) meloxicam 15 mg tablet 15 mg PO DAILY #14 tab 06/15/21 Allergies Allergy/AdvReac Type Severity Reaction Status Date / Time ziprasidone [From Geodon] Allergy Mild RASH-PALPIT Verified 06/10/21 15:43 ATIONS aspirin [ASPIRIN] Allergy Unknown GI bleed, Verified 06/10/21 15:43 stomach upset azithromycin Allergy Unknown facial Verified 06/10/21 15:43 swelling cephalexin [From KEFLEX] Allergy Unknown UNKNWON Verified 06/10/21 15:43 ibuprofen [IBUPROFEN] Allergy Unknown UNKNOWN, Verified 06/10/21 15:43 stomach upset lisinopril Allergy Unknown cough Verified 06/10/21 15:43 metformin [METFORMIN] Allergy Unknown NAUSEA & Verified 06/10/21 15:43 VOMITING, GI upset valsartan [From Diovan] Allergy Unknown UNKNOWN Verified 06/10/21 15:43 NSAIDS (Non-Steroidal AdvReac Unknown HX OF GI Verified 06/10/21 15:43 Anti-Inflamma BLEED [NSAIDS (NON-STEROIDAL ANTI-INFLAMMA] tramadol [Ultram] AdvReac Unknown GI upset Verified 06/10/21 15:43 Review of Systems Review of Systems: Constitutional : No Weight loss, No Fever, No Chills ENT/Mouth : No sore throat, No Rhinorrhea Eyes: No Eye Pain, No Swelling Cardiovascular : pos Chest Pain, no SOB, no Dyspnea on Exertion, No Orthopnea, No Edema, No Palpitations Respiratory : No Cough, No Sputum Gastrointestinal : no Nausea, No Vomiting, No Diarrhea, No abdominal Pain, No Hematochezia, No Melena Genitourinary : No Dysuria, No Urinary Frequency Musculoskeletal : No joint pain, No Myalgias, No Joint Swelling Skin : No Skin Lesions, No rash Neuro : No Weakness, No Numbness, No Dizziness, No Headache Psych : No Anxiety/Panic, No Depression Heme/Lymph: No Bruising, No Lymphadenopathy Endocrine : No Polyuria, No Polydipsia All other systems reviewed and are negative [facility] Past Medical History Medical History Chest pain Constipation COPD (chronic obstructive pulmonary disease) Depression HLD (hyperlipidemia) HTN (hypertension) Multinodular thyroid Nocturnal hypoxemia Osteopenia (~2015) Personal history of nicotine dependence Pulmonary nodule Smoker Spinal stenosis T2DM (type 2 diabetes mellitus) (~2008) Vitamin D deficiency Surgical History History of cardiac catheterization History of lithotripsy Hx of arthroscopy of left knee Hx of cholecystectomy Hx of colonoscopy Hx of spinal fusion S/P thyroid biopsy Family History Family History Father No problems noted. Mother Cancer Diabetes Social History Social History Household Members: None Housing: Apartment Alcohol intake: never Patient Tobacco Use Status: Current everyday Tobacco user Smoking Start Date: 04/01/1964 Tobacco use type: Cigarette Cigarette Packs Per Day: 1.5 Cigarettes Per Day: 30.0 e-Cigarette/Vaping Use: Former Use Second Hand Smoke Exposure: No Advance Directives: Yes Advance Directives on File: Yes Advance Directives Date on File: 04/02/21 Current occupational status: retired Physical Exam Vital Signs: Vital Signs: Last Vital Signs Temp 98.6 F 06/15/21 15:09 Pulse 98 06/15/21 15:09 Resp 18 06/15/21 15:09 BP 115/43 L 06/15/21 15:09 Pulse Ox 95 06/15/21 15:09 Oxygen Flow Rate 2 12/20/21 15:09 BMI result Body Mass Index 33.9 Appearance: Alert. Oriented X3. No acute distress. Eyes: Pupils equal, round and reactive to light. ENT: Pharynx normal. Neck: Normal inspection. Neck supple. CVS: Normal heart rate and rhythm. Pulses normal. Chest: ttp along R lateral ribs no rash noted Respiratory: No respiratory distress. Breath sounds normal. Abdomen: Soft and non-tender. Skin: Skin warm and dry. Normal skin color. Normal skin turgor. Extremities: No lower extremity edema. No calf ttp Neuro: Oriented X 3. No motor deficit. No sensory deficit. 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 She is demanding she needs something now for pain she is on oxygen and I do not feel comfortable prescribing her a narcotic since she is already on abilify, flexeril, gabapentin, remeron - US of R kidney, UA labs ordered. Discharge Plan Discharge Clinical Impression: Chest wall pain Instructions: Chest Wall Pain (ED) Additional Instructions: return to ED for any worsening symptoms or concerns please call your doctor for pain management this is chronic pain and you are multiple medications at home that could affect your breathing if mixed with stronger medications such as narcotics Prescriptions: New benzonatate 200 mg capsule 200 mg PO TID PRN (Reason: cough) Qty: 30 RF: 0 No Action fenofibrate 160 mg tablet 160 mg PO DAILY Qty: 90 RF: 3 (DME) FreeStyle Jill 2 [place] Misc See Rx Instructions .ROUTE .MEDSUPPLY Qty: 1 RF: 0 (DME) FreeStyle Jill 2 Sensor Kit See Rx Instructions .ROUTE .MEDSUPPLY Qty: 2 RF: 11 docusate sodium 100 mg capsule 100 mg PO BID Qty: 60 RF: 4 cholecalciferol (vitamin D3) 50 mcg (2,000 unit) capsule 50 mcg PO DAILY Qty: 90 RF: 1 Jardiance 25 mg tablet 25 mg PO DAILY 30 Days Qty: 30 RF: 11 (DME) lancets [FreeStyle Lancets] 28 gauge misc See Rx Instructions .MEDSUPPLY Qty: 100 RF: 11 gabapentin 600 mg tablet 600 mg PO TID 30 Days Qty: 90 RF: 12 levothyroxine 25 mcg tablet 25 mcg PO QAM Qty: 90 RF: 3 Tresiba FlexTouch U-100 100 unit/mL (3 mL) insulin pen 24 unit subcut DAILY Qty: 15 RF: 6 atorvastatin 40 mg tablet 40 mg PO DAILY Qty: 30 RF: 11 (DME) pulse oximeter See Rx Instructions .Route .MEDSUPPLY Qty: 1 RF: 0 lidocaine [Lidoderm] 5 % adhesive patch,medicated 1 patch topical DAILY Qty: 30 RF: 1 meloxicam 15 mg tablet 15 mg PO DAILY Qty: 14 RF: 0 ondansetron 4 mg tablet,disintegrating 4 mg PO Q8H PRN (Reason: nausea and vomiting) Qty: 20 RF: 0 pioglitazone 15 mg Tablet 15 mg PO DAILY RF: 0 mirtazapine 7.5 mg tablet 1 tab PO BEDTIME RF: 0 Victoza 3-Jeanmarie 0.6 mg/0.1 mL (18 mg/3 mL) pen injector 1.8 mg subcut DAILY RF: 0 sennosides [senna] 8.6 mg tablet 17.2 mg PO BEDTIME RF: 0 esomeprazole magnesium 40 mg capsule,delayed release(DR/EC) 40 mg PO DAILY@0630 RF: 0 levocetirizine 5 mg tablet 5 mg PO DAILY RF: 0 insulin aspart U-100 100 unit/mL (3 mL) insulin pen See Protocol unit subcut TIDAC RF: 0 morphine 15 mg tablet 15 mg PO Q8H PRN (Reason: pain) Qty: 6 RF: 0 cyclobenzaprine 10 mg tablet 10 mg PO TID Qty: 20 RF: 0 bisacodyl [Dulcolax (bisacodyl)] 5 mg tablet,delayed release (DR/EC) 10 mg PO BEDTIME PRN (Reason: constipation) 2 Days Qty: 30 RF: 0 prednisone 10 mg tablet 10 mg PO DAILY Qty: 30 RF: 0 doxycycline hyclate 100 mg tablet 100 mg PO BID Qty: 14 RF: 0 ipratropium-albuterol 0.5 mg-3 mg(2.5 mg base)/3 mL solution for nebulization 3 ml inhalation Q6-8H PRN (Reason: wheezing) Qty: 180 RF: 0 benzonatate 100 mg capsule 100 mg PO TID Qty: 30 RF: 0 lidocaine [Lidoderm] 5 % adhesive patch,medicated 1 patch topical DAILY Qty: 30 RF: 1 (DME) pen needle, diabetic 32 gauge x 5/32 needle See Rx Instructions ea .ROUTE .MEDSUPPLY Qty: 50 RF: 0 aripiprazole 15 mg tablet 15 mg PO DAILY RF: 0 (DME) FreeStyle Lite Strips Strip See Rx Instructions ea Not Applicable TID Qty: 10 RF: 0 albuterol sulfate 90 mcg/actuation HFA aerosol inhaler 2 puff inhalation Q4H PRN (Reason: Shortness Of Breath) RF: 0 melatonin 5 mg tablet 5 mg PO BEDTIME RF: 0 Advair HFA 115-21 mcg/actuation HFA aerosol inhaler 2 puff inhalation Q12H 30 Days Qty: 12 RF: 5 Alphagan P 0.1 % drops 1 drp ophthalmic (eye) BID RF: 0 Referrals: Physician,Unknown J [Primary Care Provider] - 1 day
--- NOTE | 2021-06-15 15:31 | ECG_ITS ---
Test Reason : SOB Blood Pressure : / mmHG Vent. Rate : 090 BPM Atrial Rate : 090 BPM P-R Int : 150 ms QRS Dur : 078 ms QT Int : 354 ms P-R-T Axes : 062 066 051 degrees QTc Int : 433 ms Normal sinus rhythm Normal ECG When compared with ECG of 05-JUN-2021 11:56, No significant change was found Referred By: Amanda Turner Electronically Signed By:STACY GILL
[2021-06-15] MEDS: HYDROcodone/Homat 5/1.5/5 ML 5 ML SYRUP PO (16:39)
--- NOTE | 2021-06-15 16:58 | MHC.CM.ED ---
Met with patient at request of Dr. Turner. A&Ox3. Pt lives in elderly housing. PCP is Dr. Concepcion. HCP not on file. Copy requested. Fully vaccinated with J&J 09/22/20. Has MOW [facility]. Has [employer] 12 hours/week through [facility]. Has weekly RN through [facility]. Has home Oxygen at 2L from [facility]. Medical work-up in process. D/C plan is home with continued services. CM to follow for d/c needs.
[2021-06-15 17:08] LABS: MANUAL DIFF FLAG NO
[2021-06-15 17:15] LABS: Basophils Percent Auto 0.1 % (0-2); Eosinophils Percent Auto 0.1 % (0-4); Hematocrit 42.2 % (37.0-47.0); Hemoglobin 13.6 g/dl (12.0-16.0); Imm Gran Abs Auto 0.08 X10*3/uL (0.00-0.03); Imm Gran Pct Auto 0.9 % (0.0-0.4); Lymphocytes Absolute Auto 0.9 X10*3/uL (1.2-4.9); Lymphocytes Percent Auto 10.3 % (20-40); Mean Corpuscular HGB Conc 32.2 g/dl (31.0-35.0); Mean Corpuscular Hemoglobin 28.9 pg (27.0-33.0); Mean Corpuscular Volume 89.8 fL (80.0-98.0); Mean Platelet Volume 10.1 fL (9.4-12.3); Monocytes Absolute Auto 0.4 X10*3/uL (0.1-1.2); Monocytes Percent Auto 3.9 % (2-11); Neutrophils Absolute Auto 7.6 x10*3/uL (2.0-8.3); Neutrophils Percent Auto 84.7 % (45-73); Platelet Count 294 X10*3/uL (160-400); Red Cell Distribution Width 14.6 % (11.0-16.0)
[2021-06-15 17:29] LABS: COVID-19 Test Negative (Negative); IDNOW Serial# 9DD0AD1C; Troponin-I High Sensitivity < 3.5 ng/L (<3.5-17.0)
[2021-06-15 17:55] LABS: Appearance Urine CLEAR; Color Urine YELLOW; Glucose Urine UA >=1000 MG/DL (NEG); Leukocyte Esterase Urine NEG (NEG); Nitrite Urine NEG (NEG); PH 7.5 (5.0-8.0); Urine Blood NEG (NEG); Urine Ketones NEG (NEG); Urine Protein NEG (NEG-TRACE)
[2021-06-15 18:23] LABS: Squamous Epithelial Cell Urine TRACE /LPF
[2021-06-15 18:24] LABS: RBC Urine 0 /HPF (0); Triple Phosphate Crystal Urine TRACE /LPF; WBC Urine 0 /HPF (0-4)
[2021-06-15 18:54] VITALS: BP 117/55; PULSE 88; RESP 18; O2SAT 93
[2021-06-15 19:06] LABS: Glucose, Whole Blood 181 mg/dL (60-115)
[2021-06-15 20:00] VITALS: BP 126/49; PULSE 93; RESP 15; O2SAT 92
[2021-06-15 20:33] LABS: Alanine Aminotransferase 16 U/L (0-31); Albumin Level 3.8 g/dL (3.5-5.0); Alkaline Phosphatase 72 U/L (39-117); Anion Gap 11 (12-20); Aspartate Amino Transferase 15 U/L (5-31); Bilirubin Direct < 0.2 mg/dL (0.0-0.5); Bilirubin Total 0.3 mg/dL (0.0-1.0); Blood Urea Nitrogen 14 mg/dL (9-16); Calcium 9.3 mg/dL (8.4-10.2); Carbon Dioxide 29 mmol/L (22-29); Chloride 105 mmol/L (96-108); Creatinine Clr Calc Pharmacy 69.2; Estimated Glomerular Filt Rate > 60; Glucose Random 199 mg/dL (60-115); Lipase 52 U/L (8-78); Magnesium 1.7 mg/dL (1.6-2.6); Potassium 5.2 mmol/L (3.3-5.1); Sodium 140 mmol/L (135-145); Total Protein 6.2 g/dL (6.5-8.0)
--- NOTE | 2021-06-15 21:38 | PC.NURSE ---
Patient refused medication and PA made aware.
== END 2021-06-15 23:57 | disposition home or self-care (01) ==
PROVIDERS: Emergency Provider Emergency Medicine
DX: R07.89 Other chest pain (principal); Z20.822 Contact with and (suspected) exposure to COVID-19; E11.9 Type 2 diabetes mellitus without complications; I10 Essential (primary) hypertension; J44.9 Chronic obstructive pulmonary disease, unspecified; E78.5 Hyperlipidemia, unspecified; F17.200 Nicotine dependence, unspecified, uncomplicated; Z79.4 Long term (current) use of insulin; Z79.02 Long term (current) use of antithrombotics/antiplatelets; Z99.81 Dependence on supplemental oxygen
CPT/HCPCS: 36415; 71045; 76775; 80048; 80076; 81001; 82947; 83690; 83735; 84484; 85025; 87635; 93005; 99284

== ENCOUNTER → 2021-07-02 10:48 | Outpatient (BNVA) | payer MEDICARE, SELFPAY | PROVIDERS: PCP Internal Medicine; Visit Provider Internal Medicine | DX: J44.9 Chronic obstructive pulmonary disease, unspecified (principal); G47.34 Idiopathic sleep related nonobstructive alveolar hypoventilation; R91.1 Solitary pulmonary nodule; R07.9 Chest pain, unspecified; F17.210 Nicotine dependence, cigarettes, uncomplicated | CPT/HCPCS: 99212 ==

== ENCOUNTER 2021-08-03 07:26 | Outpatient (REF) | payer MEDICARE, SELFPAY ==
[2021-08-03 11:36] LABS: Alanine Aminotransferase 14 U/L (0-31); Albumin Level 4.5 g/dL (3.5-5.0); Alkaline Phosphatase 63 U/L (39-117); Anion Gap 12 (12-20); Aspartate Amino Transferase 20 U/L (5-31); Bilirubin Total 0.6 mg/dL (0.0-1.0); Blood Urea Nitrogen 10 mg/dL (9-16); Carbon Dioxide 30 mmol/L (22-29); Chloride 103 mmol/L (96-108); Cholesterol 171 mg/dL; Estimated Glomerular Filt Rate > 60; Glucose Fasting 140 mg/dL (60-99); HDL Cholesterol 65 mg/dL; LDL Cholesterol Calculated 86 mg/dl; Potassium 4.6 mmol/L (3.3-5.1); Sodium 140 mmol/L (135-145); Triglycerides 104 mg/dL
[2021-08-03 12:04] LABS: Estimated Average Glucose 194 mg/dL; Hemoglobin A1c % 8.4 %
== END 2021-08-03 07:27 | disposition home or self-care (01) ==
LOC: HO.HMGCLDS 07:26
PROVIDERS: Absent Provider Internal Medicine; Visit Provider Internal Medicine
DX: E11.65 Type 2 diabetes mellitus with hyperglycemia (principal); E78.5 Hyperlipidemia, unspecified; I10 Essential (primary) hypertension
CPT/HCPCS: 36415; 80053; 80061; 83036

== ENCOUNTER → 2021-08-25 09:35 | Outpatient (BNVA) | payer MEDICARE, SELFPAY | PROVIDERS: PCP Internal Medicine; Visit Provider Internal Medicine | DX: J44.9 Chronic obstructive pulmonary disease, unspecified (principal); R91.1 Solitary pulmonary nodule; G47.34 Idiopathic sleep related nonobstructive alveolar hypoventilation; R07.9 Chest pain, unspecified; F17.200 Nicotine dependence, unspecified, uncomplicated; Z79.899 Other long term (current) drug therapy | CPT/HCPCS: 99212 ==

== ENCOUNTER → 2021-09-23 10:27 | Outpatient (REF) | payer OTHER, SELFPAY ==
--- NOTE | 2021-09-23 10:30 | CA_ITS ---
Transthoracic Echocardiogram Patient (Last, First, Middle): Sofiya Rivas E Gender: Female Date of : 1950 Age: 70 Procedure Date: 09/23/2021 Procedure Type: Transthoracic Echocardiogram Location: OP Height: 165.1 cm Weight: 90.72 kg BSA: 1.98 m2 Heart Rate: bpm BP: 122 / mmHg Film Color Tester: CP/YR Referring MD: Jolanta Concepcion MD Symptoms: R00.0 - Tachycardia, unspecified Study Quality: Fair ECG Rhythm: Sinus Conclusions: - The left ventricular systolic function is normal. The calculated ejection fraction is 57% by biplane method. - No obvious valvular pathology seen on this study. Findings Left Ventricle Normal left ventricular cavity size. There is mildly increased left ventricular wall thickness. The left ventricular systolic function is normal. The calculated ejection fraction is 57% by biplane method. There is no evidence of regional wall motion abnormalities. E/E prime ratio is between 8 and 15 consistent with indeterminate filling pressures. Evidence suggests grade I (mild) diastolic dysfunction. Right Ventricle Normal right ventricular cavity size. There is low normal right ventricular systolic function. Atria Both atria are normal in size. Aortic Valve The aortic valve was not well visualized. There is no aortic valve stenosis. There is no aortic valve regurgitation. Mitral Valve The mitral valve appears normal. There is no mitral valve regurgitation. There is no mitral valve stenosis. Pulmonic Valve The pulmonic valve was not well visualized. Tricuspid Valve There is no tricuspid valve regurgitation. Tricuspid regurgitation envelope is inadequate for calculation of right ventricular systolic pressure. Great Vessels The asc aorta is normal in size. Venous The inferior vena cava is normal in size and collapses greater than 50% with inspiration. Pericardium/Pleural There is no evidence of pericardial effusion. Prior Study Comparison No significant change compared to prior study dated: 01/19/2017. Recommendations, Care & Conclusions No obvious valvular pathology seen on this study. Measurements 2D Linear Measurements IVSd: 1.07 0.6-0.9/0.6-1.0 cm LVIDd: 4.21 3.9-5.3/4.2-5.9 cm LVIDd Index: 2.13 2.4-3.2/2.2-3.1 cm/m2 LVIDs: 2.63 2.0-3.6 cm LVPWd: 1.11 0.7-1.1 cm LA Diam: 3.80 2.7-3.8/3.0-4.0 cm LAIDs Index: 1.92 1.5-2.3 cm/m2 LV Mass: 193.75 67-162/88-224 g LV Mass Index: 97.85 43-95/49-115 g/m2 LVOT Diam: 1.90 3.0+(-)1.3 cm 2D Systolic Function EF 4C: 61.20 >55% EF 2C: 54.40 >55% EF BiP: 57.30 >55% Mitral Valve MV Pk E: 0.66 MV PK A: 0.95 MV Decel Time: 187.00 E/A: 0.70 E'Lateral: 5.55 E'Medial: 4.68 E/E' Med: 14.00 E/E' Lat: 11.80 PHT: 55.00 MVA PHT: 4.00 Decel Kleberg: 3.49 Aortic Valve AoV Pk Felipe: 1.44 AoV Mn Felipe: 1.06 AoV VTI: 0.25 AoV Pk Grad: 8.00 Aov Mn Grad: 5.00 MARYAN Cont.VTI: 1.89 LVOT LVOT Pk Felipe: 0.84 LVOT Mn Felipe: 0.54 LVOT VTI: 0.16 LVOT Pk Grad: 3.00 LVOT Mn Grad: 1.00 LVOT Diam: 1.90 LVOT Area: 2.84 Diastolic Function MV Pk E: 0.66 MV Pk A: 0.95 E/A: 0.70 E'Medial: 4.68 E/E' Med: 14.00 E' Laterial: 5.55 E/E' Lat: 11.80 Right Ventricle TAPSE (mm): 16.50 TVS' Felipe: 8.86 Tricuspid Valve RA Press: 8.00 Great Vessels Aorta Sinus of Valsalva: 3.25 2.0-3.[address] Ridge: 2.47 1.7-3.4 cm Ao Asc: 3.20 2.1-3.4 cm Ao Arch: 2.10 Updated in Other Vendor System with Status of Final Jose Robles MD electronically signed on 09/25/2021 1:39:04 PM with status of Final
== END ==
LOC: HO.CARD 10:27
PROVIDERS: Visit Provider Internal Medicine
DX: R00.0 Tachycardia, unspecified (principal); R06.00 Dyspnea, unspecified
CPT/HCPCS: 93306

== ENCOUNTER 2021-10-21 15:47 | Emergency (ER) | payer OTHER, SELFPAY ==
--- NOTE | ~2021-10-21 | XR_ITS ---
EXAMINATION: XR CHEST CLINICAL INFORMATION: History of COPD. Evaluate for pneumonia. COMPARISON: Chest radiograph dated from 05/28/2021. TECHNIQUE: AP view of the chest was obtained. FINDINGS: Unchanged appearance of the cardiomediastinal silhouette. Chronic interstitial prominence and platelike opacities in the left lower lobe. No new focal airspace opacities. No pleural effusion or pneumothorax. Chronic left-sided rib fractures. XR/XR chest 1V IMPRESSION: No acute cardiopulmonary findings.
[2021-10-21 16:01] VITALS: BP 112/71; BP 132/76; PULSE 110; PULSE 99; RESP 19; TEMP 36.9; O2SAT 95; BMI 33.9
--- NOTE | 2021-10-21 16:05 | ECG_ITS ---
Test Reason : dyspnea Blood Pressure : / mmHG Vent. Rate : 089 BPM Atrial Rate : 089 BPM P-R Int : 150 ms QRS Dur : 084 ms QT Int : 364 ms P-R-T Axes : 054 057 050 degrees QTc Int : 442 ms Normal sinus rhythm Normal ECG When compared with ECG of 15-JUN-2021 16:28, No significant change was found Referred By: Shanice Metcalf Electronically Signed By:STACY GILL
--- NOTE | 2021-10-21 16:06 | ED_ITS ---
HPI - General Adult General Chief complaint: General Medical Stated complaint: shortness of breath Time Seen by Provider: 10/21/21 15:55 Source: patient and EMS Mode of arrival: EMS Limitations: no limitations History of Present Illness HPI narrative: Patient comes in the emergency room complaining of cough, sinus pain on the left side of the face, increased shortness of breath. Patient states that she uses oxygen only at night, but since today she has been using it all day long. Patient denies fever or chills, no leg swelling. Patient denies nausea vomiting or diarrhea. Related Data Home Medications Medication Instructions Recorded Confirmed aripiprazole 15 mg tablet 15 mg PO DAILY 05/19/20 08/07/21 blood sugar diagnostic #10 ea 05/19/20 08/07/21 albuterol sulfate 90 mcg/actuation 2 puff INHALATION Q4H PRN g 12/11/20 aerosol inhaler brimonidine 0.1 % eye drops 1 drp OPHTHALMIC (EYE) BID 01/06/21 08/07/21 (Alphagan P) mirtazapine 7.5 mg tablet 1 tab PO BEDTIME 03/13/21 08/07/21 pioglitazone 15 mg tablet 15 mg PO DAILY 03/13/21 08/07/21 insulin aspart U-100 100 unit/mL See Protocol SUBCUT TIDAC 03/23/21 08/07/21 (3 mL) subcutaneous pen suvorexant 10 mg tablet (Belsomra) 10 mg PO BEDTIME PRN 07/02/21 08/07/21 clonazepam 0.5 mg tablet 0.5 mg PO DAILY PRN 08/07/21 08/07/21 duloxetine 60 mg capsule,delayed mg PO 08/07/21 08/07/21 release Previous Rx's Medication Instructions Recorded flash glucose scanning reader #1 ea 10/27/20 (FreeStyle Jill 2 Franklin) flash glucose sensor (FreeStyle #2 ea 12/25/20 Jill 2 Sensor) ondansetron 4 mg disintegrating 4 mg PO Q8H PRN #20 tab 03/13/21 tablet empagliflozin 25 mg tablet 25 mg PO DAILY 30 Days #30 tab 03/23/21 (Jardiance) lancets 28 gauge (FreeStyle #100 ea 03/23/21 Lancets) gabapentin 600 mg tablet 600 mg PO TID 30 Days #90 tab 03/24/21 levothyroxine 25 mcg tablet 25 mcg PO QAM #90 tab 04/08/21 atorvastatin 40 mg tablet 40 mg PO DAILY #30 tab 05/06/21 pulse oximeter #1 ea 05/12/21 morphine 15 mg immediate release 15 mg PO Q8H PRN #6 tab 06/05/21 tablet benzonatate 200 mg capsule 200 mg PO TID PRN #30 cap 06/15/21 meloxicam 15 mg tablet 15 mg PO DAILY #14 tab 06/15/21 ipratropium 0.5 mg-albuterol 3 mg 3 ml PO Q6-8H PRN #180 ml 07/01/21 (2.5 mg base)/3 mL nebulization soln liraglutide 0.6 mg/0.1 mL (18 mg/3 1.8 mg (0.3 mL) SUBCUT DAILY 90 07/01/21 mL) subcutaneous pen injector Days #27 ml (Victoza 3-Jeanmarie) pen needle, diabetic 32 gauge x #150 ea 07/13/21 (Unifine Ultra Pen Needle) cholecalciferol (vitamin D3) 50 50 mcg PO DAILY #90 cap 07/31/21 mcg (2,000 unit) capsule fluticasone propionate 230 2 puff INHALATION BID #12 g 08/07/21 mcg-salmeterol 21 mcg/actuation HFA inhaler (Advair HFA) insulin degludec 100 unit/mL (3 36 unit (0.36 mL) SUBCUT DAILY #15 08/07/21 mL) subcutaneous pen (Tresiba ml FlexTouch U-100 insulin) esomeprazole magnesium 40 mg 40 mg PO DAILY #90 cap 08/26/21 capsule,delayed release fenofibrate 160 mg tablet 160 mg PO DAILY #90 tab 08/26/21 bisacodyl 5 mg tablet,delayed 10 mg PO BEDTIME PRN 2 Days #30 tab 09/01/21 release (Dulcolax (bisacodyl)) levocetirizine 5 mg tablet 5 mg PO DAILY #90 tab 09/18/21 docusate sodium 100 mg capsule 100 mg PO BID #180 cap 10/15/21 sennosides 8.6 mg tablet (senna) 17.2 mg PO BEDTIME #180 tab 10/15/21 doxycycline hyclate 100 mg tablet 100 mg PO BID #13 tab 10/21/21 prednisone 50 mg tablet 50 mg PO DAILY #4 tab 10/21/21 Allergies Allergy/AdvReac Type Severity Reaction Status Date / Time ziprasidone [From Geodon] Allergy Mild RASH-PALPIT Verified 08/25/21 09:57 ATIONS aspirin [ASPIRIN] Allergy Unknown GI bleed, Verified 08/25/21 09:46 stomach upset azithromycin Allergy Unknown facial Verified 08/25/21 09:46 swelling cephalexin [From KEFLEX] Allergy Unknown can't Verified 08/25/21 09:46 remember ibuprofen [IBUPROFEN] Allergy Unknown UNKNOWN, Verified 08/25/21 09:46 stomach upset lisinopril Allergy Unknown cough Verified 08/25/21 09:46 metformin [METFORMIN] Allergy Unknown NAUSEA & Verified 08/25/21 09:46 VOMITING, GI upset valsartan [From Diovan] Allergy Unknown hives Verified 08/25/21 09:46 NSAIDS (Non-Steroidal AdvReac Unknown HX OF GI Verified 08/25/21 09:46 Anti-Inflamma BLEED [NSAIDS (NON-STEROIDAL ANTI-INFLAMMA] tramadol [Ultram] AdvReac Unknown GI upset Verified 08/25/21 09:46 Review of Systems Review of Systems: Constitutional : No Weight loss, No Fever, No Chills, No Night Sweats, No Fatigue, No Malaise ENT/Mouth : No Hearing loss, No Ear Pain, No Nasal Congestion, No Sinus Pain, No Hoarseness, No sore throat, No Rhinorrhea, No Swallowing Difficulty Eyes: No Eye Pain, No Swelling, No Redness, No Foreign Body, No Discharge, No Vision Changes Cardiovascular : No Chest Pain, mild increased dyspnea on exertion, No Orthopnea, No Edema, No Palpitations Respiratory : Complaining of productive cough, chronic Wheezing, No Smoke Exposure, increased Dyspnea Gastrointestinal : No Nausea, No Vomiting, No Diarrhea, No Constipation, No abdominal Pain, No Hematochezia, No Melena Genitourinary : no irregular bleeding, No Dysuria, No Urinary Frequency, No Hematuria, No Urinary Incontinence, No Urgency, No Flank Pain, No Urinary Flow Changes, No Hesitancy Musculoskeletal : No joint pain, No Myalgias, No Joint Swelling Skin : No Skin Lesions, No rash Neuro : No Weakness, No Numbness, No Paresthesias, No Loss of Consciousness, No Dizziness, No Headache Psych : No Anxiety/Panic, No Depression, No SI/HI/AH/VH, No Social Issues, Heme/Lymph: No Bruising, No Bleeding,No Lymphadenopathy Endocrine : No Polyuria, No Polydipsia, No Temperature Intolerance [facility] Past Medical History Medical History Chest pain Constipation COPD (chronic obstructive pulmonary disease) Depression العلي (dyspnea on exertion) HLD (hyperlipidemia) HTN (hypertension) Multinodular thyroid Nocturnal hypoxemia Osteopenia (~2015) Personal history of nicotine dependence Pulmonary nodule Smoker Spinal stenosis T2DM (type 2 diabetes mellitus) (~2008) Vitamin D deficiency Surgical History History of cardiac catheterization History of lithotripsy Hx of arthroscopy of left knee Hx of cholecystectomy Hx of colonoscopy Hx of spinal fusion S/P thyroid biopsy Family History Family History Father No problems noted. Mother Cancer Diabetes Social History Social History Household Members: None Housing: Apartment Alcohol intake: never Patient Tobacco Use Status: Current everyday Tobacco user Smoking Start Date: 04/01/1964 Tobacco use type: Cigarette Cigarettes Per Day: 10 e-Cigarette/Vaping Use: Former Use Second Hand Smoke Exposure: No Use of substances other than those prescribed or required for medical reasons: No Advance Directives: Yes Advance Directives on File: Yes Advance Directives Date on File: 04/02/21 Current occupational status: retired Physical Exam ED Vital Signs: Vital Signs - 24 hr 10/21/21 16:01 Temperature 98.4 F Pulse Rate 99 Respiratory Rate 19 Blood Pressure 112/71 Pulse Oximetry 95 BMI result Body Mass Index 33.9 Const Other: Appearance: Alert. Oriented X3. No acute distress. Eyes: Pupils equal, round and reactive to light. ENT: Pharynx normal. Neck: Normal inspection. Neck supple. No lymph nodes noted. No crepitus CVS: Normal heart rate and rhythm. Pulses normal. Normal S1 and S2 Respiratory: No respiratory distress. On 1 L oxygen, bilateral rales, no crackles, a mild bilateral occasional wheezing Abdomen: Soft and nontender. No rigidity. No distention. Skin: Skin warm and dry. Normal skin color. Normal skin turgor. Extremities: No lower extremity edema. No Lacerations. No Rash Neuro: Oriented X 3. No motor deficit. No sensory deficit. Moving all extremities. No slurred speech. CN 2 through 12 grossly intact Psych: calm, cooperative, normal affect Course Course Course Narrative: Labs and imaging pending. I discussed the labs and imaging with the patient, no white blood cell count, lactic acid within normal limits, vitals stable, patient at baseline respiratory garcia, chest x-ray within normal limits, COVID negative. I discussed with the patient that we will go ahead and treat her for sinusitis/bronchitis. Medical Decision Making Lab Data Result diagrams: 10/21/21 16:51 10/21/21 16:51 Labs: Lab Results 10/21/21 10/21/21 10/21/21 Range/Units 16:51 16:51 16:51 WBC 7.8 (4.8-10.8) X10*3/uL RBC 4.67 (4.20-5.50) X10*6/uL Hgb 13.8 (12.0-16.0) g/dl Hct 41.8 (37.0-47.0) % MCV 89.5 (80.0-98.0) fL MCH 29.6 (27.0-33.0) pg MCHC 33.0 (31.0-35.0) g/dl RDW 13.8 (11.0-16.0) % Plt Count 254 (160-400) X10*3/uL MPV 10.4 (9.4-12.3) fL Immature Gran % (Auto) 0.3 (0.0-0.4) % Neut % (Auto) 75.6 H (45-73) % Lymph % (Auto) 16.1 L (20-40) % [place] % (Auto) 6.5 (2-11) % Eos % (Auto) 1.0 (0-4) % Baso % (Auto) 0.5 (0-2) % Lymph # (Auto) 1.3 (1.2-4.9) X10*3/uL [place] # (Auto) 0.5 (0.1-1.2) X10*3/uL Eos # (Auto) 0.1 (0.0-0.4) X10*3/uL Baso # (Auto) 0.0 (0.0-0.2) X10*3/uL Abs Immat Gran (auto) 0.02 (0.00-0.03) X10*3/uL Absolute Neuts (auto) 5.9 (2.0-8.3) x10*3/uL Absolute Nucleated RBC 0.000 (0.0-0.012) X10*3/uL Nucleated RBC % (auto) 0.0 (0.0-0.2) /100WBC PT 11.5 (9.9-13.0) SEC INR 1.0 (0.9-1.1) Sodium 142 (135-145) mmol/L Potassium 4.8 (3.3-5.1) mmol/L Chloride 104 (96-108) mmol/L Carbon Dioxide 32 H (22-29) mmol/L Anion Gap 11 L (12-20) BUN 13 (9-16) mg/dL Creatinine 0.89 (0.5-1.4) mg/dL Estim Creat Clear Calc 65.1 Estimated GFR > 60 Random Glucose 211 H (60-115) mg/dL Lactic Acid (0.5-2.0) mmol/L Calcium 9.5 (8.4-10.2) mg/dL Magnesium 1.8 (1.6-2.6) mg/dL Total Bilirubin 0.3 (0.0-1.0) mg/dL Direct Bilirubin 0.2 (0.0-0.5) mg/dL AST 14 (5-31) U/L ALT 10 (0-31) U/L Alkaline Phosphatase 64 (39-117) U/L Troponin I High Sens (<3.5-17.0) ng/L B-Natriuretic Peptide (<100) pg/mL Total Protein 6.3 L (6.5-8.0) g/dL Albumin 4.0 (3.5-5.0) g/dL COVID-19 ([facility]) (Negative) COVID-19 Clin Com 10/21/21 10/21/21 10/21/21 Range/Units 16:51 16:51 16:51 WBC (4.8-10.8) X10*3/uL RBC (4.20-5.50) X10*6/uL Hgb (12.0-16.0) g/dl Hct (37.0-47.0) % MCV (80.0-98.0) fL MCH (27.0-33.0) pg MCHC (31.0-35.0) g/dl RDW (11.0-16.0) % Plt Count (160-400) X10*3/uL MPV (9.4-12.3) fL Immature Gran % (Auto) (0.0-0.4) % Neut % (Auto) (45-73) % Lymph % (Auto) (20-40) % Assumption % (Auto) (2-11) % Eos % (Auto) (0-4) % Baso % (Auto) (0-2) % Lymph # (Auto) (1.2-4.9) X10*3/uL Assumption # (Auto) (0.1-1.2) X10*3/uL Eos # (Auto) (0.0-0.4) X10*3/uL Baso # (Auto) (0.0-0.2) X10*3/uL Abs Immat Gran (auto) (0.00-0.03) X10*3/uL Absolute Neuts (auto) (2.0-8.3) x10*3/uL Absolute Nucleated RBC (0.0-0.012) X10*3/uL Nucleated RBC % (auto) (0.0-0.2) /100WBC PT (9.9-13.0) SEC INR (0.9-1.1) Sodium (135-145) mmol/L Potassium (3.3-5.1) mmol/L Chloride (96-108) mmol/L Carbon Dioxide (22-29) mmol/L Anion Gap (12-20) BUN (9-16) mg/dL Creatinine (0.5-1.4) mg/dL Estim Creat Clear Calc Estimated GFR Random Glucose (60-115) mg/dL Lactic Acid 0.8 (0.5-2.0) mmol/L Calcium (8.4-10.2) mg/dL Magnesium (1.6-2.6) mg/dL Total Bilirubin (0.0-1.0) mg/dL Direct Bilirubin (0.0-0.5) mg/dL AST (5-31) U/L ALT (0-31) U/L Alkaline Phosphatase (39-117) U/L Troponin I High Sens < 3.5 (<3.5-17.0) ng/L B-Natriuretic Peptide < 10 (<100) pg/mL Total Protein (6.5-8.0) g/dL Albumin (3.5-5.0) g/dL COVID-19 ([facility]) Negative (Negative) COVID-19 Clin Com See Note Imaging Data Chest x-ray: Radiologist's impression: FINDINGS: Unchanged appearance of the cardiomediastinal silhouette. Chronic interstitial prominence and platelike opacities in the left lower lobe. No new focal airspace opacities. No pleural effusion or pneumothorax. Chronic left-sided rib fractures. XR/XR chest 1V IMPRESSION: No acute cardiopulmonary findings. Discharge Plan Discharge Clinical Impression: Sinusitis, Bronchitis Patient Disposition: Home, Self-Care Instructions: Sinusitis (ED), Acute Bronchitis (ED) Additional Instructions: Please follow-up with your primary care physician tomorrow. If you have any worsening or new symptoms, please return to the emergency room or call 911 Prescriptions: New doxycycline hyclate 100 mg tablet 100 mg PO BID Qty: 13 0RF prednisone 50 mg tablet 50 mg PO DAILY Qty: 4 0RF Rx Instructions: Start 10/22/2021 No Action (DME) FreeStyle Jill 2 Franklin Misc See Rx Instructions .ROUTE .MEDSUPPLY Qty: 1 0RF Rx Instructions: As directed (DME) FreeStyle Jill 2 Sensor Kit See Rx Instructions .ROUTE .MEDSUPPLY Qty: 2 11RF Rx Instructions: Once every 14 days Jardiance 25 mg tablet 25 mg PO DAILY 30 Days Qty: 30 11RF (DME) lancets [FreeStyle Lancets] 28 gauge misc See Rx Instructions .MEDSUPPLY Qty: 100 11RF Rx Instructions: 4x daily gabapentin 600 mg tablet 600 mg PO TID 30 Days Qty: 90 12RF levothyroxine 25 mcg tablet 25 mcg PO QAM Qty: 90 3RF atorvastatin 40 mg tablet 40 mg PO DAILY Qty: 30 11RF (DME) pulse oximeter See Rx Instructions .Route .MEDSUPPLY Qty: 1 0RF Rx Instructions: As directed to monitor oxygen levels meloxicam 15 mg tablet 15 mg PO DAILY Qty: 14 0RF Victoza 3-Jeanmarie 0.6 mg/0.1 mL (18 mg/3 mL) pen injector 1.8 mg subcut DAILY 90 Days Qty: 27 11RF ipratropium-albuterol 0.5 mg-3 mg(2.5 mg base)/3 mL solution for nebulization 3 ml PO Q6-8H PRN (Reason: for wheezing) Qty: 180 4RF (DME) pen needle, diabetic [Unifine Ultra Pen Needle] 32 gauge x 5/32 needle See Rx Instructions .Route Qty: 150 11RF Rx Instructions: As directed 5 times a day cholecalciferol (vitamin D3) 50 mcg (2,000 unit) capsule 50 mcg PO DAILY Qty: 90 3RF esomeprazole magnesium 40 mg capsule,delayed release(DR/EC) 40 mg PO DAILY Qty: 90 2RF fenofibrate 160 mg tablet 160 mg PO DAILY Qty: 90 2RF bisacodyl [Dulcolax (bisacodyl)] 5 mg tablet,delayed release (DR/EC) 10 mg PO BEDTIME PRN (Reason: constipation) 2 Days Qty: 30 5RF levocetirizine 5 mg tablet 5 mg PO DAILY Qty: 90 3RF docusate sodium 100 mg capsule 100 mg PO BID Qty: 180 3RF sennosides [senna] 8.6 mg tablet 17.2 mg PO BEDTIME Qty: 180 3RF ondansetron 4 mg tablet,disintegrating 4 mg PO Q8H PRN (Reason: nausea and vomiting) Qty: 20 0RF pioglitazone 15 mg Tablet 15 mg PO DAILY 0RF mirtazapine 7.5 mg tablet 1 tab PO BEDTIME 0RF insulin aspart U-100 100 unit/mL (3 mL) insulin pen See Protocol unit subcut TIDAC 0RF Protocol: Insulin Correction Scale Less than or equal to 110 ---- Give (units): 0 111 to 150 Give (units): 0 151 to 200 Give (units): 2 201 to 250 Give (units): 4 251 to 300 Give (units): 6 301 to 350 Give (units): 8 Greater than 350 Give (units): 10 Call MD if Blood Glucose > : 350 Label Comments: Sliding scale benzonatate 200 mg capsule 200 mg PO TID PRN (Reason: cough) Qty: 30 0RF morphine 15 mg tablet 15 mg PO Q8H PRN (Reason: pain) Qty: 6 0RF Rx Instructions: Patient can partially fill prescription upon request duloxetine 60 mg capsule,delayed release(DR/EC) PO 0RF clonazepam 0.5 mg tablet 0.5 mg PO DAILY PRN0RF Advair HFA 230-21 mcg/actuation HFA aerosol inhaler 2 puff inhalation BID Qty: 12 4RF Tresiba FlexTouch U-100 100 unit/mL (3 mL) insulin pen 36 unit subcut DAILY Qty: 15 6RF aripiprazole 15 mg tablet 15 mg PO DAILY 0RF (DME) FreeStyle Lite Strips Strip See Rx Instructions ea Not Applicable TID Qty: 10 0RF Rx Instructions: As directed albuterol sulfate 90 mcg/actuation HFA aerosol inhaler 2 puff inhalation Q4H PRN (Reason: Shortness Of Breath) 0RF Alphagan P 0.1 % drops 1 drp ophthalmic (eye) BID 0RF Belsomra 10 mg tablet 10 mg PO BEDTIME PRN0RF
[2021-10-21 16:59] LABS: MANUAL DIFF FLAG NO
[2021-10-21 17:08] LABS: Prothrombin Time 11.5 SEC (9.9-13.0)
[2021-10-21 17:18] LABS: Alanine Aminotransferase 10 U/L (0-31); Alkaline Phosphatase 64 U/L (39-117); Anion Gap 11 (12-20); Aspartate Amino Transferase 14 U/L (5-31); Bilirubin Direct 0.2 mg/dL (0.0-0.5); Bilirubin Total 0.3 mg/dL (0.0-1.0); Blood Urea Nitrogen 13 mg/dL (9-16); Calcium 9.5 mg/dL (8.4-10.2); Carbon Dioxide 32 mmol/L (22-29); Chloride 104 mmol/L (96-108); Creatinine Clr Calc Pharmacy 65.1; Estimated Glomerular Filt Rate > 60; Glucose Random 211 mg/dL (60-115); Lactic Acid 0.8 mmol/L (0.5-2.0); Magnesium 1.8 mg/dL (1.6-2.6); Potassium 4.8 mmol/L (3.3-5.1); Sodium 142 mmol/L (135-145); Total Protein 6.3 g/dL (6.5-8.0)
[2021-10-21 17:19] LABS: Basophils Percent Auto 0.5 % (0-2); Eosinophils Absolute Auto 0.1 X10*3/uL (0.0-0.4); Hematocrit 41.8 % (37.0-47.0); Hemoglobin 13.8 g/dl (12.0-16.0); Imm Gran Abs Auto 0.02 X10*3/uL (0.00-0.03); Imm Gran Pct Auto 0.3 % (0.0-0.4); Lymphocytes Absolute Auto 1.3 X10*3/uL (1.2-4.9); Lymphocytes Percent Auto 16.1 % (20-40); Mean Corpuscular Hemoglobin 29.6 pg (27.0-33.0); Mean Corpuscular Volume 89.5 fL (80.0-98.0); Mean Platelet Volume 10.4 fL (9.4-12.3); Monocytes Absolute Auto 0.5 X10*3/uL (0.1-1.2); Monocytes Percent Auto 6.5 % (2-11); Neutrophils Absolute Auto 5.9 x10*3/uL (2.0-8.3); Neutrophils Percent Auto 75.6 % (45-73); Platelet Count 254 X10*3/uL (160-400); Red Blood Count 4.67 X10*6/uL (4.20-5.50); Red Cell Distribution Width 13.8 % (11.0-16.0); White Blood Count 7.8 X10*3/uL (4.8-10.8)
[2021-10-21 17:21] LABS: COVID-19 Test Negative (Negative)
[2021-10-21 17:23] LABS: B Type Natriuretic Peptide < 10 pg/mL (<100); Troponin-I High Sensitivity < 3.5 ng/L (<3.5-17.0)
[2021-10-21 17:44] VITALS: BP 117/53; PULSE 85; RESP 17; TEMP 36.7; O2SAT 95
[2021-10-21] MEDS: predniSONE 20 MG TABLET 60 MG PO (17:46)
== END 2021-10-21 19:59 | disposition home or self-care (01) ==
PROVIDERS: Emergency Provider Emergency Medicine; PCP Internal Medicine
DX: J32.9 Chronic sinusitis, unspecified (principal); J40 Bronchitis, not specified as acute or chronic; I10 Essential (primary) hypertension; E11.9 Type 2 diabetes mellitus without complications; F17.210 Nicotine dependence, cigarettes, uncomplicated; Z20.822 Contact with and (suspected) exposure to COVID-19
CPT/HCPCS: 71045; 80048; 80076; 83605; 83735; 83880; 84484; 85025; 85610; 87040; 87635; 93005; 99283; 99284

== ENCOUNTER 2021-10-23 06:32 | Outpatient (REF) | payer MEDICARE, SELFPAY ==
[2021-10-23 11:41] LABS: Estimated Average Glucose 180 mg/dL; Hemoglobin A1c % 7.9 %
[2021-10-23 11:58] LABS: Alanine Aminotransferase 15 U/L (0-31); Albumin Level 4.3 g/dL (3.5-5.0); Alkaline Phosphatase 60 U/L (39-117); Anion Gap 13 (12-20); Aspartate Amino Transferase 21 U/L (5-31); Bilirubin Total 0.4 mg/dL (0.0-1.0); Blood Urea Nitrogen 18 mg/dL (9-16); Calcium 9.9 mg/dL (8.4-10.2); Carbon Dioxide 26 mmol/L (22-29); Chloride 103 mmol/L (96-108); Cholesterol 172 mg/dL; Estimated Glomerular Filt Rate > 60; Glucose Fasting 124 mg/dL (60-99); HDL Cholesterol 61 mg/dL; LDL Cholesterol Calculated 78 mg/dl; Sodium 138 mmol/L (135-145); Total Protein 6.8 g/dL (6.5-8.0); Triglycerides 168 mg/dL
[2021-10-23 12:06] LABS: TSH reflex Free T4 2.56 uIU/mL (0.32-4.0)
[2021-10-23 12:29] LABS: Creatinine Urine 136.25 mg/dL; Microalbum/Creatinine Ratio Ur 8.8 ug/mg cr; Vitamin B12 228 pg/mL (200-900)
[2021-10-25 03:57] LABS: LDL Cholesterol Direct 82 mg/dL (<100)
== END 2021-10-23 06:33 | disposition home or self-care (01) ==
LOC: HO.HMGCLDS 06:32
PROVIDERS: PCP Internal Medicine; Visit Provider Internal Medicine
DX: E11.65 Type 2 diabetes mellitus with hyperglycemia (principal); E78.5 Hyperlipidemia, unspecified; I10 Essential (primary) hypertension; J44.9 Chronic obstructive pulmonary disease, unspecified
CPT/HCPCS: 36415; 80053; 80061; 82043; 82607; 83036; 83721; 84443

== ENCOUNTER → 2021-10-26 09:08 | Outpatient (BNVA) | payer OTHER, SELFPAY | PROVIDERS: PCP Internal Medicine; Visit Provider Internal Medicine | DX: E55.9 Vitamin D deficiency, unspecified (principal); E04.2 Nontoxic multinodular goiter; E78.5 Hyperlipidemia, unspecified; I10 Essential (primary) hypertension; Z79.4 Long term (current) use of insulin; Z79.899 Other long term (current) drug therapy | CPT/HCPCS: Q3014 ==

== ENCOUNTER 2021-11-09 08:14 | Outpatient (REF) | payer OTHER, SELFPAY ==
--- NOTE | ~2021-11-09 | CT_ITS ---
EXAMINATION: CT CHEST SCREENING CLINICAL INFORMATION: 6 month follow-up smoker COMPARISON: Chest x-ray 10/21/2021. CTA chest 06/05/2021 TECHNIQUE: Multidetector volumetric CT imaging of the chest is performed without contrast using low dose technique. Additional 2D coronal and sagittal reformatted images and axial 3D maximum intensity projection (MIP) images are generated on the CT workstation. This CT examination was performed using dose optimization techniques as appropriate, variously including the following: *Automated exposure control *Adjustment of mA and/or kV according to patient size (this includes techniques or standardized protocols for targeted exams where dose is matched to indication/reason for exam; i.e. extremities or head) *Use of iterative reconstruction technique DLP: 55 mGy-cm FINDINGS: LUNGS: There is mild emphysema with chronic atelectasis or scarring in the lingula and right lower lobe medial segment. Linear atelectasis is seen in the right lower lobe medial basal segment. No pulmonary nodules, mass or consolidation seen. There is mild left apical pleural thickening. MEDIASTINUM: There is slight asymmetric enlargement of right thyroid lobe. Central trachea and the bronchi are normal. There are small shotty lymph nodes in the pretracheal space. Heart size and the great vessels are normal caliber. There is no pericardial effusion seen. PLEURA: There is no pleural effusion. No pleural mass or thickening. AXILLA: No lymphadenopathy. UPPER ABDOMEN: Visualized liver, spleen, pancreas and bilateral adrenal glands are unremarkable. The gallbladder has been surgically removed. OSSEOUS STRUCTURES: There is a old right 7th rib fracture. No aggressive lytic or sclerotic process seen CT/CT lung screen follow up IMPRESSION: 1. Bilateral lower lobe lingular chronic atelectasis or scarring. 2. No pulmonary, mass or consolidation seen. No abnormal mediastinal or axillary lymphadenopathy. ASSESSMENT: Lung-RADS category 1: Negative RECOMMENDATION: Annual CT chest
== END 2021-11-09 08:15 | disposition home or self-care (01) ==
LOC: HO.CT 08:14
PROVIDERS: PCP Internal Medicine; Visit Provider Physician Assistant Medical
DX: Z87.891 Personal history of nicotine dependence (principal)
CPT/HCPCS: 71250

== ENCOUNTER 2021-11-13 14:45 | Outpatient (REF) | payer OTHER, SELFPAY ==
[2021-11-13 16:51] LABS: Anion Gap 14 (12-20); Blood Urea Nitrogen 9 mg/dL (9-16); C Reactive Protein 0.17 mg/dL (< or = 0.50); Calcium 9.9 mg/dL (8.4-10.2); Carbon Dioxide 28 mmol/L (22-29); Chloride 103 mmol/L (96-108); Estimated Glomerular Filt Rate > 60; Glucose Random 194 mg/dL (60-115); Sodium 140 mmol/L (135-145)
[2021-11-13 18:03] LABS: Erythrocyte Sedimentation Rate 4 MM/HR (0-20)
== END 2021-11-13 14:46 | disposition home or self-care (01) ==
LOC: HO.HMGCLDS 14:45
PROVIDERS: PCP Internal Medicine; Visit Provider Internal Medicine
DX: K11.20 Sialoadenitis, unspecified (principal); R68.84 Jaw pain
CPT/HCPCS: 36415; 80048; 85652; 86140

== ENCOUNTER → 2022-01-04 10:24 | Outpatient (BNVA) | payer OTHER, SELFPAY | PROVIDERS: PCP Internal Medicine; Visit Provider Internal Medicine | DX: J44.9 Chronic obstructive pulmonary disease, unspecified (principal); R91.1 Solitary pulmonary nodule; G47.34 Idiopathic sleep related nonobstructive alveolar hypoventilation; F17.210 Nicotine dependence, cigarettes, uncomplicated | CPT/HCPCS: 99212 ==

== ENCOUNTER 2022-01-19 06:47 | Outpatient (REF) | payer OTHER, SELFPAY ==
[2022-01-19 12:00] LABS: Estimated Average Glucose 166 mg/dL; Hemoglobin A1c % 7.4 %
[2022-01-19 12:15] LABS: Free T4 (Free Thyroxine) 1.01 ng/dL (0.71-1.85); Vitamin D 25-OH Total 33.7 ng/mL (>30)
[2022-01-19 12:16] LABS: Alanine Aminotransferase 20 U/L (0-31); Albumin Level 4.5 g/dL (3.5-5.0); Alkaline Phosphatase 61 U/L (39-117); Anion Gap 13 (12-20); Aspartate Amino Transferase 21 U/L (5-31); Bilirubin Total 0.5 mg/dL (0.0-1.0); Blood Urea Nitrogen 9 mg/dL (9-16); Calcium 9.6 mg/dL (8.4-10.2); Carbon Dioxide 29 mmol/L (22-29); Chloride 105 mmol/L (96-108); Cholesterol 170 mg/dL; Estimated Glomerular Filt Rate > 60; Glucose Random 142 mg/dL (60-115); HDL Cholesterol 59 mg/dL; LDL Cholesterol Calculated 84 mg/dl; Sodium 142 mmol/L (135-145); Total Protein 6.9 g/dL (6.5-8.0); Triglycerides 135 mg/dL
[2022-01-19 12:44] LABS: Creatinine Urine 114.89 mg/dL; Microalbum/Creatinine Ratio Ur 8.7 ug/mg cr
[2022-01-21 00:11] LABS: LDL Cholesterol Direct 89 mg/dL (<100)
== END 2022-01-19 06:48 | disposition home or self-care (01) ==
LOC: HO.HMGCLDS 06:47
PROVIDERS: PCP Internal Medicine; Visit Provider Internal Medicine
DX: E04.2 Nontoxic multinodular goiter (principal); E55.9 Vitamin D deficiency, unspecified; E11.65 Type 2 diabetes mellitus with hyperglycemia
CPT/HCPCS: 36415; 80053; 80061; 82043; 82306; 83036; 83721; 84439; 84443

== ENCOUNTER → 2022-01-27 09:58 | Outpatient (BNVA) | payer OTHER, SELFPAY | PROVIDERS: PCP Internal Medicine; Visit Provider Internal Medicine | DX: E11.65 Type 2 diabetes mellitus with hyperglycemia (principal); E78.5 Hyperlipidemia, unspecified; I10 Essential (primary) hypertension; E04.2 Nontoxic multinodular goiter; E55.9 Vitamin D deficiency, unspecified | CPT/HCPCS: 82947; 99212 ==

== ENCOUNTER 2022-02-18 09:55 | Outpatient (REF) | payer OTHER, SELFPAY ==
--- NOTE | ~2022-02-18 | US_ITS ---
EXAMINATION: US THYROID CLINICAL INFORMATION: Nontoxic multinodular goiter. COMPARISON: US thyroid 03/04/2021 and 02/25/2020. TECHNIQUE: Linear transducer grayscale and color Doppler examination with attention to the region of the thyroid. FINDINGS: SIZE: Measurements of the thyroid lobes and nodules are given in sagittal, anteroposterior and transverse dimensions respectively. Right Thyroid Lobe: 5.2 x 2.4 x 2.4 cm, volume 15.7 mL. Previously 6.0 x 2.4 x 2.1 cm, volume 15.8 mL. Parenchyma: The gland echotexture is homogeneous. Thyroid vascularity is normal. Left Thyroid Lobe: 3.9 x 1.5 x 1.6 cm, volume 4.9 mL. Previously 4.3 x 1.6 x 1.3 cm, volume 4.7 mL. Parenchyma: The gland echotexture is homogeneous. Thyroid vascularity is normal. Isthmus: 0.5 cm in maximum AP dimension. Previously 0.6 cm. Estimated total number of nodules greater than or equal to 1 cm: 2. Records Coordinator nodules are described as follows: 1. Location: Right superior. Size: 2.3 x 2.0 x 1.7 cm, volume 4.1 mL. Previously: 1.9 x 1.9 x 1.9 cm, volume 3.6 mL. Nodule characteristics: Composition: Solid (2). Echogenicity: Isoechoic (1). Shape: Taller than wide (3). Margins: Smooth (0). Echogenic Foci: None (0). ACR TI-RADS total points: 6 Previous: 6 ACR TI-RADS category: 4 Previous: 4 Significant change in size (>/= 20% in 2 dimensions and minimal increase of 2 mm or 50% or greater increase in volume): Change in features: Change in ACR TI-RADS risk category: 2. Location: Right superior/mid. Size: 1.0 x 0.6 x 0.9 cm, volume 0.3 mL. Previously: 1.1 x 0.7 x 1.1 cm, volume 0.4 mL. Nodule characteristics: Composition: Solid/almost completely solid (2). Echogenicity: Hyperechoic (1). Shape: Not taller than wide (0). Margins: Ill-defined (0). Echogenic Foci: None (0). ACR TI-RADS total points: 3 Previous: 3 ACR TI-RADS category: 3 Previous: 3 Significant change in size (>/= 20% in 2 dimensions and minimal increase of 2 mm or 50% or greater increase in volume): Change in features: Change in ACR TI-RADS risk category: 3. Location: Right inferior. Size: 0.5 x 0.4 x 0.6 cm, volume 0.07 mL. Previously: 0.6 x 0.4 x 0.7 cm, volume 0.08 mL. Nodule characteristics: Composition: Mixed cystic and solid (1). Echogenicity: Cannot be determined (1). Shape: Not taller than wide (0). Margins: Smooth (0). Echogenic Foci: None (0). ACR TI-RADS total points: 2 Previous: 2 ACR TI-RADS category: 2 Previous: 2 Significant change in size (>/= 20% in 2 dimensions and minimal increase of 2 mm or 50% or greater increase in volume): Change in features: Change in ACR TI-RADS risk category: 4. Location: Left superior. Size: 0.4 x 0.2 x 0.3 cm, volume 0.02 mL. Previously: 0.4 x 0.2 x 0.4 cm, volume 0.02 mL. Nodule characteristics: Composition: Mixed cystic and solid (1). Echogenicity: Cannot be determined (1). Shape: Not taller than wide (0). Margins: Smooth (0). Echogenic Foci: None (0). ACR TI-RADS total points: 2 Previous: 2 ACR TI-RADS category: 2 Previous: 2 Significant change in size (>/= 20% in 2 dimensions and minimal increase of 2 mm or 50% or greater increase in volume): Change in features: Change in ACR TI-RADS risk category: Small cystic area superior to the isthmus appears decreased in size measuring 5 x 3 x 4 mm compared to 9 x 5 x 5 mm on most recent exam February 2021. NODES: No lymphadenopathy is seen in the tissue surrounding the thyroid gland. US/US thyroid IMPRESSION: Enlarged right lobe. Stable bilateral nodules, right greater than left. Continued interval decrease in size in small cystic area superior to the thyroid isthmus. ACR TI-RADS RECOMMENDATION REFERENCE: Ultrasound-guided fine-needle aspiration, followup ultrasound, no further follow up. * TR1 (0 point) and TR 2 (2 points): No FNA or follow up * TR3 (3 points): FNA if more than or equal to 2.5 cm in maximum dimension, followup ultrasound in 1, 3 and 5 years if 1.5 to 2.4 cm in maximum dimension. * TR4 (4-6 points): FNA if more than or equal to 1.5 cm in maximum dimension, followup ultrasound in 1, 2, 3 and 5 years if 1 to 1.4 cm in maximum dimension. * TR5 (more than or equal to 7 points): FNA if more than or equal to 1 cm in maximum dimension, followup ultrasound every year for 5 years if 0.5 to 0.9 cm in maximum dimension. * TR3, TR4 or TR5 nodules that are below the size threshold for follow up receive no follow up.
== END 2022-02-18 09:56 | disposition home or self-care (01) ==
LOC: HO.US 09:55
PROVIDERS: PCP Internal Medicine; Visit Provider Internal Medicine
DX: E04.2 Nontoxic multinodular goiter (principal)
CPT/HCPCS: 76536

== ENCOUNTER → 2022-04-26 10:05 | Outpatient (BNVA) | payer OTHER, SELFPAY | PROVIDERS: PCP Internal Medicine; Visit Provider Anesthesiology | DX: M96.1 Postlaminectomy syndrome, not elsewhere classified (principal); M53.3 Sacrococcygeal disorders, not elsewhere classified | CPT/HCPCS: 99212 ==

== ENCOUNTER → 2022-06-03 10:01 | Outpatient (BNVA) | payer OTHER, SELFPAY | PROVIDERS: PCP Internal Medicine; Visit Provider Internal Medicine | DX: J44.9 Chronic obstructive pulmonary disease, unspecified (principal); G47.34 Idiopathic sleep related nonobstructive alveolar hypoventilation; R91.1 Solitary pulmonary nodule; F17.210 Nicotine dependence, cigarettes, uncomplicated; Z79.899 Other long term (current) drug therapy | CPT/HCPCS: 99212 ==

== ENCOUNTER 2022-06-14 09:21 | Emergency (ER) | payer OTHER, SELFPAY ==
--- NOTE | ~2022-06-14 | XR_ITS ---
EXAMINATION: XR CHEST CLINICAL INFORMATION: Pneumonia? COMPARISON: 10/21/2021. Chest CT 11/09/2021 TECHNIQUE: Frontal view of the chest was obtained. FINDINGS: Atelectasis and a prominent epicardial fat pad at the left lung base. No new focal consolidation or mass. Normal pulmonary vascularity. No pleural effusion or pneumothorax. Unchanged cardiomediastinal silhouette. Degenerative changes of the thoracic spine and shoulders with no acute osseous abnormality. XR/XR chest 1V IMPRESSION: No acute pulmonary disease.
[2022-06-14 09:34] VITALS: BP 137/77; BP 141/50; PULSE 66; PULSE 77; RESP 19; TEMP 36.8; O2SAT 96; O2SAT 97; BMI 31.9
--- NOTE | 2022-06-14 09:48 | ECG_ITS ---
Test Reason : fatigue Blood Pressure : / mmHG Vent. Rate : 064 BPM Atrial Rate : 064 BPM P-R Int : 144 ms QRS Dur : 078 ms QT Int : 412 ms P-R-T Axes : 056 055 040 degrees QTc Int : 425 ms Normal sinus rhythm Normal ECG When compared with ECG of 21-OCT-2021 16:25, No significant change was found Referred By: Geovanni Dixon Electronically Signed By:Axel Spear
[2022-06-14 09:49] LABS: MANUAL DIFF FLAG NO
--- OUTSIDE RECORDS SUMMARY | 2022-06-14 09:52 | XMS_ITS | Continuity of Care Document ---
:1950 Author Organization [facility] Address [address] [place] [address]- Care Team Providers Name Role Phone Nathaniel Awan MD Primary Care Physician En[place] [facility] [place](s): 12/04/19 - 12/04/[address] [address] Discharge Disposition: A-D/C Home Attending Physician: Axel Spear MD Admitting Physician: Axel Spear MD Referring Physician: Axel Spear MD Allergies, Adverse Reactions, Alerts Substance Reaction Severity Status ibuprofen Active aspirin Active Ultram Active Geodon Active Medications Abilify 15 mg oral tablet 15 mg, 1, tablet, By Mouth, Daily, # 30 tablet, Refills 0, Maintenance, 02/06/19 12:03:30 EDT Start Date: 02/06/19 Status: OrderedActos 15 mg oral tablet 1 tablet = 15 mg, By Mouth, Daily, # 90 tablet, 0 Refills, Maintenance, 02/06/19 12:07:43 EDT, Tablet Start Date: 02/06/19 Status: Orderedatorvastatin 20 mg oral tablet 1 tablet = 20 mg, By Mouth, Daily, # 30 tablet, 0 Refills, Maintenance, 02/06/19 12:04:22 EDT, Tablet Start Date: 02/06/19 Status: Orderedatorvastatin 40 mg oral tablet 1 tablet = 40 mg, By Mouth, Daily, # 30 tablet, 0 Refills, Maintenance, 12/04/19 8:50:00 EDT, Tablet Start Date: 12/04/19 Status: Orderedbaclofen 20 mg oral tablet 20 mg, 1, tablet, By Mouth, 3 times a day, # 90 tablet, Refills 0, Maintenance, 02/06/19 12:04:13 EDT Start Date: 02/06/19 Status: OrderedBasaglar KwikPen Subcutaneous Infusion, 0 Refills, Maintenance, 02/06/19 12:07:55 EDT Start Date: 02/06/19 Status: Orderedbisacodyl 5 mg oral delayed release tablet 2 tablet = 10 mg, By Mouth, Daily, PRN for constipation, # 20 tablet, 0 Refills, Maintenance, 02/06/19 12:07:02 EDT, EC Tablet Start Date: 02/06/19 Status: OrderedCymbalta 60 mg oral enteric coated capsule 1 capsule = 60 mg, By Mouth, Daily, # 30 capsule, 0 Refills, Maintenance, 02/06/19 12:02:34 EDT, EC Capsule Start Date: 02/06/19 Status: Ordereddocusate sodium 100 mg oral capsule 100 mg, 1, capsule, By Mouth, 2 times a day, PRN, # 20 capsule, Refills 0, Maintenance, for constipation, 02/06/19 12:06:37 EDT Start Date: 02/06/19 Status: Orderedfenofibrate 160 mg oral tablet 1 tablet = 160 mg, By Mouth, Daily, # 90 tablet, 0 Refills, Maintenance, 02/06/19 12:02:54 EDT, Tablet Start Date: 02/06/19 Status: OrderedFreestyle Lancets See Instructions, # 200 each, Refills 5, Maintenance, use as directed for Type 1 Diabetes Mellitus, 02/06/19 12:05:56 EDT, Compound Start Date: 02/06/19 Stop Date: 03/08/19 Status: OrderedFreestyle Lite Test Strips See Instructions, Maintenance, 02/06/19 12:06:08 EDT, Compound Start Date: 02/06/19 Status: Orderedgabapentin 600 mg oral tablet 1 tablet = 600 mg, By Mouth, 3 times a day, # 90 tablet, 0 Refills, Maintenance, 12/04/19 8:56:00 EDT, Tablet Start Date: 12/04/19 Status: Orderedisosorbide mononitrate 30 mg oral tablet, extended release 1 tablet = 30 mg, By Mouth, Daily in AM, # 30 tablet, 0 Refills, Maintenance, 12/04/19 8:56:00 EDT, ER Tablet Start Date: 12/04/19 Status: OrderedJardiance 25 mg oral tablet 1 tablet = 25 mg, By Mouth, Daily in AM, # 30 tablet, 0 Refills, Maintenance, 02/06/19 12:07:36 EDT,Tablet Start Date: 02/06/19 Status: OrderedKlonoPIN 1 mg oral tablet 1 tablet = 1 mg, By Mouth, 3 times a day, 0 Refills, Maintenance, 02/06/19 12:03:21 EDT Start Date: 02/06/19 Status: Orderedlevothyroxine 0.025 mg oral tablet 1 tablet = 25 mcg, By Mouth, Daily, # 30 tablet, 0 Refills, Maintenance, 02/06/19 12:07:21 EDT, Tablet Start Date: 02/06/19 Status: OrderedLipitor 20 mg oral tablet 20, mg, 1, tablet, By Mouth, Daily, 0, 0, 08/06/05 13:17:23, [id number], Constant Indicator Start Date: 08/06/05 Status: OrderedMiraLax oral powder for reconstitution = 17 Gm, By Mouth, Daily, dissolve in water before taking, # 255 Gm, 0 Refills, Maintenance, 02/06/19 12:06:17 EDT, REC Powder Start Date: 02/06/19 Status: OrderedNexium 40 mg oral enteric coated capsule 1 capsule = 40 mg, By Mouth, Daily, # 30 capsule, 0 Refills, Maintenance, 02/06/19 12:02:25 EDT, EC Capsule Start Date: 02/06/19 Status: OrderedNovoLOG FlexPen 100 units/mL subcutaneous solution Subcutaneous Infusion, 3 times a day before meals, 0 Refills, Maintenance, 02/06/19 12:08:06 EDT Start Date: 02/06/19 Status: OrderedPrempro 0.45 mg-1.5 mg oral tablet 1, tablet, By Mouth, Daily, 0, 0, 08/11/05 9:04:47, [id number], Constant Indicator Start Date: 08/11/05 Status: OrderedProzac Capsule See Instructions, 0, 0, 04/29/06 9:22:16, 20 mg By Mouth 3 tabs at a time, Print MARBELLA Number, Constant Indicator Start Date: 04/29/06 Status: OrderedSenna Lax 8.6 mg oral tablet 2 tablet = 17.2 mg, By Mouth, Daily at bedtime, PRN for constipation, # 100 tablet, 0 Refills, Maintenance, 02/06/19 12:06:45 EDT, Tablet Start Date: 02/06/19 Status: OrderedSymbicort 160mcg/4.5mcg Inhaler 2, puffs, Inhalation, 2 times a day, # 10.2 Gm, Refills 0, Maintenance, 02/06/19 12:07:11 EDT, Aerosol Start Date: 02/06/19 Status: OrderedTheophylline 300 mg tablet SR 1 tablet = 300 mg, By Mouth, Every 12 hours, # 60 tablet, 0 Refills, Maintenance, 02/06/19 12:04:36 EDT, ER Tablet Start Date: 02/06/19 Status: OrderedToprol XL 25 mg oral tablet, extended release 25, mg, 1, tablet, By Mouth, Daily, 0, 0, 08/11/05 10:40:55, [id number], Constant Indicator Start Date: 08/11/05 Status: OrderedtraZODone 100 mg oral tablet 100 mg, 1, tablet, By Mouth, 2 times a day, # 60 tablet, Refills 0, Maintenance, 02/06/19 12:03:07 EDT Start Date: 02/06/19 Status: OrderedVentolin 90 mcg Inhaler 2, puffs, Inhalation, Every 4 hours, Refills 0, Maintenance, 02/06/19 12:05:17 EDT, Inhaler Start Date: 02/06/19 Status: OrderedVictoza 18 mg/3 mL subcutaneous solution = 1.2 mg, Subcutaneous Injection, Daily, # 6 mL, 0 Refills, Maintenance, 02/06/19 12:08:16 EDT, Solution Start Date: 02/06/19 Status: OrderedVitamin D3 oral tablet 2 tablet = 800 International_Units, By Mouth, Daily, # 60 tablet, 0 Refills, Maintenance, 02/06/19 12:05:29 EDT, Tablet Start Date: 02/06/19 Status: Ordered Vital Signs Most recent to oldest [Reference Range]: 1 2 Height 166.37 cm 166.37 cm (12/04/19 9:21 AM) (12/04/19 9:00 AM) Weight 88.18 kg 88.18 kg (12/04/19 9:21 AM) (12/04/19 9:00 AM) Oxygen Saturation [94-100 %] 96 % (12/04/19 8:54 AM) Pulse Rate [55-90 bpm] 79 bpm (12/04/19 8:54 AM) Blood Pressure [90-138/55-84 mm Hg] 115/47 mm Hg (12/04/19 8:54 AM) Respiratory Rate [16-30 br/min] 20 br/min (12/04/19 8:54 AM) Temperature [96.8-100.4 DegF] 99.1 DegF (12/04/19 8:54 AM) Mode of Delivery (Oxygen) Room air (12/04/19 8:54 AM) Blood pressure sites Arm, left (12/04/19 8:54 AM) Temperature Route Oral (12/04/19 8:54 AM) Dry Weight 88.18 kg (12/04/19 9:21 AM) Social History Social History Type Response Smoking Status Former smoker, quit more meseret n 30 days ago entered on: 02/06/19 Sex
--- OUTSIDE RECORDS SUMMARY | 2022-06-14 09:52 | XMS_ITS | Continuity of Care Document ---
:1950 Author Organization [facility] Address [address] [place] [address]- Care Team Providers Name Role Phone Emperatriz HURLEY, Nathaniel Chaney Primary Care Physician Encounter [facility] [place] Date(s): 12/12/19 - 01/11/20 [facility] [address] [place] [address]- [facility] Attending Physician: Pardeep Hendricks Admitting Physician: AdmPardeep garay Referring Physician: AdmtrPardeep Allergies, Adverse Reactions, Alerts Substance Reaction Severity [...] By Mouth, Daily, 0, 0, 08/06/05 13:17:23, [id number], Constant Indicator Start Date: 08/06/05 Status: OrderedMiraLax [...] By Mouth, Daily, 0, 0, 08/11/05 9:04:47, [id number], Constant Indicator Start Date: 08/11/05 Status: OrderedProzac [...] By Mouth, Daily, 0, 0, 08/11/05 10:40:55, [id number], Constant Indicator Start Date: 08/11/05 Status: OrderedtraZODone [...] EDT, Tablet Start Date: 02/06/19 Status: Ordered Social History Social History Type Response Smoking Status Former smoker, quit more meseret n 30 days ago entered on: 02/06/19 Sex
--- OUTSIDE RECORDS SUMMARY | 2022-06-14 09:52 | XMS_ITS | Continuity of Care Document ---
:1950 Author Organization [address], [address] [place] [address]- Care Team Providers Name Role Phone Jolanta Concepcion MD Primary Care Physician Encounter [facility] [place] Date(s): 11/27/20 - 12/04/[address], [address] [place], [place] [address] Attending Physician: Adarsh Navas MD Referring Physician: Jolanta Concepcion MD Allergies, Adverse Reactions, Alerts Substance Reaction [...] 12/04/19 8:56:00 EDT, ER Tablet Start Date: 6/9/20 Status: OrderedJardiance 25 mg oral tablet 1 [...] By Mouth, Daily, 0, 0, 08/06/05 13:17:23, 1.15330p+[id number], Constant Indicator Start Date: 08/06/05 Status: OrderedMiraLax [...] By Mouth, Daily, 0, 0, 08/11/05 9:04:47, 1.33293s+006, Constant Indicator Start Date: 08/11/05 Status: OrderedProzac [...] By Mouth, Daily, 0, 0, 08/11/05 10:40:55, [id number], Constant Indicator Start Date: 08/11/05 Status: OrderedtraZODone [...]
--- OUTSIDE RECORDS SUMMARY | 2022-06-14 09:52 | XMS_ITS | Continuity of Care Document ---
:1950 Author Organization [address], [address] [place] [address]- Care Team Providers Name Role Phone Jolanta Concepcion MD Primary Care Physician [place] [facility] [place]/27/[place] - 11/26/[address], [address] [place], [place] [address] Allergies, Adverse Reactions, Alerts Substance Reaction Severity [...] By Mouth, Daily, 0, 0, 08/06/05 13:17:23, [id number]+[id number], Constant Indicator Start Date: 08/06/05 Status: OrderedMiraLax [...] By Mouth, Daily, 0, 0, 08/11/05 9:04:47, [id number], Constant Indicator Start Date: 08/11/05 Status: OrderedProzac [...] By Mouth, Daily, 0, 0, 08/11/05 10:40:55, [id number], Constant Indicator Start Date: 08/11/05 Status: OrderedtraZODone [...]
--- OUTSIDE RECORDS SUMMARY | 2022-06-14 09:52 | XMS_ITS | Continuity of Care Document ---
:1950 Author Organization [address], [address] [place] [address]- Care Team Providers Name Role Phone Jolanta Concepcion MD Primary Care Physician En[place] [facility] [place] 11/27/20 - 12/27/[address], [address] [place], [place] [address] Attending Physician: Pardeep Hendricks Admitting Physician: AdmtrPardeep Referring Physician: Admtr, ArLuanne Allergies, Adverse Reactions, Alerts Substance Reaction Severity [...] By Mouth, Daily, 0, 0, 08/06/05 13:17:23, [id number], Constant Indicator Start Date: 08/06/05 Status: OrderedMiraLax [...] By Mouth, Daily, 0, 0, 08/11/05 9:04:47, [id number]+[id number], Constant Indicator Start Date: 08/11/05 Status: OrderedProzac [...] By Mouth, Daily, 0, 0, 08/11/05 10:40:55, [id number]+006, Constant Indicator Start Date: 08/11/05 Status: OrderedtraZODone [...]
[2022-06-14 09:55] LABS: Basophils Percent Auto 0.4 % (0-2); Eosinophils Absolute Auto 0.1 X10*3/uL (0.0-0.4); Eosinophils Percent Auto 1.2 % (0-4); Hematocrit 41.9 % (37.0-47.0); Hemoglobin 13.8 g/dl (12.0-16.0); Imm Gran Abs Auto 0.02 X10*3/uL (0.00-0.03); Imm Gran Pct Auto 0.3 % (0.0-0.4); Lymphocytes Absolute Auto 1.4 X10*3/uL (1.2-4.9); Lymphocytes Percent Auto 20.5 % (20-40); Mean Corpuscular HGB Conc 32.9 g/dl (31.0-35.0); Mean Corpuscular Hemoglobin 29.1 pg (27.0-33.0); Mean Corpuscular Volume 88.2 fL (80.0-98.0); Mean Platelet Volume 10.2 fL (9.4-12.3); Monocytes Absolute Auto 0.4 X10*3/uL (0.1-1.2); Monocytes Percent Auto 5.7 % (2-11); Neutrophils Absolute Auto 4.9 x10*3/uL (2.0-8.3); Neutrophils Percent Auto 71.9 % (45-73); Platelet Count 240 X10*3/uL (160-400); Red Blood Count 4.75 X10*6/uL (4.20-5.50); Red Cell Distribution Width 13.8 % (11.0-16.0); White Blood Count 6.8 X10*3/uL (4.8-10.8)
[2022-06-14 10:09] LABS: Prothrombin Time 11.3 SEC (10.0-13.1)
[2022-06-14 10:11] LABS: Partial Thromboplastin Time 29.4 SEC (26.0-36.4)
[2022-06-14 10:18] VITALS: BP 144/76; PULSE 78; RESP 21; O2SAT 99
[2022-06-14 10:22] LABS: Alanine Aminotransferase 16 U/L (0-31); Albumin Level 4.3 g/dL (3.5-5.0); Alkaline Phosphatase 51 U/L (39-117); Anion Gap 12 (12-20); Aspartate Amino Transferase 18 U/L (5-31); Bilirubin Total 0.5 mg/dL (0.0-1.0); Blood Urea Nitrogen 9 mg/dL (9-16); Calcium 9.5 mg/dL (8.4-10.2); Carbon Dioxide 27 mmol/L (22-29); Chloride 107 mmol/L (96-108); Creatinine Clr Calc Pharmacy 71.8; Estimated Glomerular Filt Rate > 60; Glucose Random 156 mg/dL (60-115); Potassium 4.9 mmol/L (3.3-5.1); Sodium 141 mmol/L (135-145); Total Protein 6.3 g/dL (6.5-8.0)
[2022-06-14 10:28] LABS: B Type Natriuretic Peptide < 10 pg/mL (<100)
[2022-06-14 10:39] LABS: Influenza A PCR NEGATIVE (Negative); Influenza B PCR NEGATIVE (Negative); Resp Syncy Virus RNA Qual PCR NEGATIVE (Negative); SARS COV2 PCR INHOUSE NEGATIVE (Negative)
[2022-06-14] MEDS: ondansetron HCL 4 MG/2 ML VIAL IVPUSH (10:39)
[2022-06-14] MEDS: predniSONE 20 MG TABLET 60 MG PO (10:39)
[2022-06-14] MEDS: Albuterol/Iprat 2.5/0.5MG 3 ML AMPUL.NEB INHALE (10:51)
[2022-06-14 10:52] VITALS: PULSE 75; RESP 17; O2SAT 95
[2022-06-14 11:16] LABS: Lactic Acid 1.2 mmol/L (0.5-2.0)
--- NOTE | 2022-06-14 15:07 | ED_ITS ---
HPI - General Adult General Chief complaint: Dyspnea Stated complaint: DIFF BREATHING, 100% @2LPM PER EMS Time Seen by Provider: 06/14/22 09:47 Source: patient Mode of arrival: ambulatory Limitations: no limitations History of Present Illness HPI narrative: 71-year-old female with history of COPD, hypertension, diabetes, presents to ED for since of dry cough, runny nose, and body aches since thanksgiving. Patient denies any leg swelling, coughing up blood, calf pain, pleurisy, recent long travel, recent surgery, or any estrogen hormonal use. Patient denies any fever or chills. Patient states at baseline she is oxygen dependent and nighttime. Patient states her normal O2 sat on room air is 88 90% Related Data Home Medications Medication Instructions Recorded Confirmed aripiprazole 15 mg tablet 15 mg PO DAILY 05/19/20 03/09/22 blood sugar diagnostic #10 ea 05/19/20 03/09/22 brimonidine 0.1 % eye drops 1 drp ophthalmic (eye) BID 01/06/21 03/09/22 (Alphagan P) mirtazapine 7.5 mg tablet 1 tab PO BEDTIME 03/13/21 03/09/22 suvorexant 10 mg tablet (Belsomra) 10 mg PO BEDTIME PRN 07/02/21 03/09/22 clonazepam 0.5 mg tablet 0.5 mg PO DAILY PRN 08/07/21 03/09/22 duloxetine 60 mg capsule,delayed mg PO 08/07/21 03/09/22 release Previous Rx's Medication Instructions Recorded flash glucose scanning reader #1 ea 10/27/20 (FreeStyle Jill 2 Rozet) flash glucose sensor (FreeStyle #2 ea 12/25/20 Jill 2 Sensor kit) ondansetron 4 mg disintegrating 4 mg PO Q8H PRN nausea and 03/13/21 tablet vomiting #20 tabs lancets 28 gauge (FreeStyle #100 ea 03/23/21 Lancets) pulse oximeter #1 ea 05/12/21 ipratropium 0.5 mg-albuterol 3 mg 3 ml PO Q6-8H PRN for wheezing 07/01/21 (2.5 mg base)/3 mL nebulization #180 mL soln liraglutide 0.6 mg/0.1 mL (18 mg/3 1.8 mg (0.3 mL) subcut DAILY 90 07/01/21 mL) subcutaneous pen injector days #27 mL (Victoza 3-Jeanmarie) pen needle, diabetic 32 gauge x #150 ea 07/13/21 (Unifine Ultra Pen Needle) bisacodyl 5 mg tablet,delayed 10 mg PO BEDTIME PRN constipation 09/01/21 release (Dulcolax (bisacodyl)) 2 days #30 tabs levocetirizine 5 mg tablet 5 mg PO DAILY #90 tabs 09/18/21 docusate sodium 100 mg capsule 100 mg PO BID #180 caps 10/15/21 sennosides 8.6 mg tablet (senna) 17.2 mg PO BEDTIME #180 tabs 10/15/21 pioglitazone 15 mg tablet 15 mg PO DAILY 30 days #30 tabs 11/10/21 meloxicam 15 mg tablet 15 mg PO DAILY #10 tabs 11/13/21 fluticasone propionate 230 2 puff inhalation BID #12 grams 01/05/22 mcg-salmeterol 21 mcg/actuation HFA inhaler (Advair HFA) cyanocobalamin (vitamin B-12) 500 500 mcg PO DAILY #90 tabs 01/20/22 mcg tablet empagliflozin 25 mg tablet 25 mg PO DAILY 30 days #30 tabs 02/02/22 (Jardiance) levothyroxine 25 mcg tablet 25 mcg PO QAM #90 tabs 03/02/22 atorvastatin 40 mg tablet 40 mg PO DAILY #30 tabs 03/15/22 esomeprazole magnesium 40 mg 40 mg PO DAILY #90 caps 04/09/22 capsule,delayed release fenofibrate 160 mg tablet 160 mg PO DAILY #90 tabs 04/09/22 albuterol sulfate 90 mcg/actuation 2 puff inhalation Q4H PRN 06/03/22 aerosol inhaler Shortness Of Breath 60 days #8.5 grams gabapentin 600 mg tablet 600 mg PO TID 30 days #90 tabs 06/09/22 cholecalciferol (vitamin D3) 50 50 mcg PO DAILY #90 caps 06/10/22 mcg (2,000 unit) capsule insulin aspart U-100 100 unit/mL See Protocol subcut TIDAC 30 days 06/10/22 (3 mL) subcutaneous pen #15 mL insulin degludec 100 unit/mL (3 36 unit (0.36 mL) subcut DAILY #15 06/10/22 mL) subcutaneous pen (Tresiba mL FlexTouch U-100 insulin) benzonatate 100 mg capsule 100 mg PO TID PRN cough 5 days #15 06/14/22 caps prednisone 20 mg tablet 40 mg PO DAILY 5 days #10 tabs 06/14/22 Allergies Allergy/AdvReac Type Severity Reaction Status Date / Time ziprasidone [From Geodon] Allergy Mild RASH-PALPIT Verified 06/03/22 10:44 ATIONS aspirin [ASPIRIN] Allergy Unknown GI bleed, Verified 06/03/22 10:44 stomach upset azithromycin Allergy Unknown facial Verified 06/03/22 10:44 swelling cephalexin [From KEFLEX] Allergy Unknown can't Verified 06/03/22 10:44 remember ibuprofen [IBUPROFEN] Allergy Unknown UNKNOWN, Verified 06/03/22 10:44 stomach upset lisinopril Allergy Unknown cough Verified 06/03/22 10:44 metformin [METFORMIN] Allergy Unknown NAUSEA & Verified 06/03/22 10:44 VOMITING, GI upset valsartan [From Diovan] Allergy Unknown hives Verified 06/03/22 10:44 NSAIDS (Non-Steroidal AdvReac Unknown HX OF GI Verified 06/03/22 10:44 Anti-Inflamma BLEED [NSAIDS (NON-STEROIDAL ANTI-INFLAMMA] tramadol [Ultram] AdvReac Unknown GI upset Verified 06/03/22 10:44 Review of Systems Review of Systems: cough, fever, and runny nose for since thanksgiving. [facility] Past Medical History Medical History Chest pain Constipation COPD (chronic obstructive pulmonary disease) Depression العلي (dyspnea on exertion) HLD (hyperlipidemia) HTN (hypertension) Jaw pain Multinodular thyroid Nocturnal hypoxemia Osteopenia (~2015) Personal history of nicotine dependence Pulmonary nodule Sialoadenitis Smoker Spinal stenosis T2DM (type 2 diabetes mellitus) (~2008) Vitamin D deficiency Surgical History History of cardiac catheterization History of lithotripsy Hx of arthroscopy of left knee Hx of cholecystectomy Hx of colonoscopy Hx of spinal fusion S/P thyroid biopsy Family History Family History Father No problems noted. Mother Cancer Diabetes Social History Social History Household Members: None Housing: Apartment Alcohol intake: never Patient Tobacco Use Status: Current everyday Tobacco user Smoking Start Date: 04/01/1964 Tobacco use type: Cigarette Cigarettes Per Day: 10 e-Cigarette/Vaping Use: Former Use Second Hand Smoke Exposure: No Advance Directives: Yes Advance Directives on File: Yes Advance Directives Date on File: 04/02/21 Current occupational status: retired Cognitive needs: No Hearing needs: No Vision needs: No Physical Exam ED Vital Signs: Vital Signs - 24 hr 06/14/22 10:18 06/14/22 10:52 06/14/22 16:41 Temperature 98.1 F Pulse Rate 78 75 77 Respiratory Rate 21 H 17 18 Blood Pressure 144/76 H 132/82 Pulse Oximetry 99 99 Oxygen Delivery Method Room Air Room Air BMI result Body Mass Index 31.9 Const General: cooperative, healthy appearing, comfortable, no acute distress, well developed, alert, awake and Physically active Orientation/consciousness: oriented to person, oriented to place, oriented to time and patient oriented x3 HENMT Head: Yes normal to inspection, Yes No palpable skull fracture present, Yes normocephalic, Yes atraumatic and No abrasion Eyes General: appearance normal, both eyes and all related structures Neck Neck: Yes normal visual inspection, Yes full ROM, Yes no lymphadenopathy, Yes no meningeal signs, Yes trachea midline, Yes supple, No anterior neck swelling and No tender Chest Chest palpation & inspection: normal inspection of the chest and normal palpation of entire chest wall Resp Effort & Inspection: normal respiratory effort and able to speak in complete sentences Auscultation: wheezes expiratory wheezes and throughout Cardio Jugular venous distension: no JVD Heart sounds: S1 normal heart sound present and S2 normal heart sound present GI Inspection: Yes normal to inspection and No abdominal wall ecchymosis Palpation (GI): Soft to palpation, not firm, nontender, no guarding and not rigid General: No CVA tenderness and Yes no CVA tenderness Back/Spine/Pelvis Back: no CVA tenderness, No CVA tenderness and No back tenderness Skin General skin exam: no rashes or lesions noted and elasticity normal Neuro General: oriented to person, oriented to place, oriented to time, patient oriented x3, gait normal, tone normal, moves all extremities, Normal light touch and pain sensation, no meningeal signs, no focal motor deficits and CN's II-XI intact bilaterally Extrem Other: Lower extremities negative for swelling, pitting edema, calf tenderness General: Yes normal to inspection and Yes full ROM Psych Appearance: grossly normal, well kempt and not disheveled Course Course Course Narrative: Will do medical evaluation due to age and risk factors representation more like bronchitis. Chronic cough with wheezing. Nebulizers and steroids ordered. O2 saturation on room air 90 99% steroids ordered. EKG and troponin BNP chest x- ray ordered. SARS ordered Reevaluation(s) Reevaluation #1: Patient feels better just states when coughing medication. O2 saturation still 97% on room air. Patient walk around the ED without any chest pain shortness of breath on exertion. Patient would like to be discharged. Lactic acid negative. Chest x-ray negative for pneumonia. Diagnosis bronchitis. 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 Time: 16:20 Reevaluation #2: EKG. Normal sinus rhythm normal EKG. Ventricular rate 64. Pr interval 144. QRS 78. QTC 425. Negative STEMI Time: 16:21 Medications Administered Discontinued Medications Generic Name Dose Route Start Last Admin Trade Name Freq PRN Reason Stop Dose Admin Albuterol/Ipratropium 3 ml 06/14/22 10:18 06/14/22 10:51 Albuterol/Iprat 2.5/0.5mg 3 Ml Ampul.Neb INHALE 06/14/22 10:19 3 ml ONCE ONE Administration Guaifenesin 10 ml 06/14/22 16:15 06/14/22 16:25 Guaifenesin 200 Mg/10 Ml 10 Ml Liquid PO 06/14/22 16:16 10 ml ONCE ONE Administration Ondansetron HCl 4 mg 06/14/22 10:33 06/14/22 10:39 Ondansetron Hcl 4 Mg/2 Ml Vial IVPUSH 06/14/22 10:34 4 mg ONCE ONE Administration Prednisone 60 mg 06/14/22 10:18 06/14/22 10:39 Prednisone 20 Mg Tablet PO 06/14/22 10:19 60 mg ONCE ONE Administration Medical Decision Making Medical Decision Making MDM Narrative: 71-year-old female history of GERD, COPD, diabetes and hypertension presents to ED for cough, runny nose, and body aches since Thanksgiving. History physical exam does not indicate myocardial infarction or congestive heart failure. Presently not suspecting PE. No need to send for D-dimer. No pneumonia. No admission observation indicated. No further evaluation. Chest x-ray negative pneumonia Lab Data Result Diagrams: 06/14/22 09:39 06/14/22 09:39 Labs: Lab Results 06/14/22 06/14/22 06/14/22 Range/Units 09:39 09:39 09:56 WBC 6.8 (4.8-10.8) X10*3/uL RBC 4.75 (4.20-5.50) X10*6/uL Hgb 13.8 (12.0-16.0) g/dl Hct 41.9 (37.0-47.0) % MCV 88.2 (80.0-98.0) fL MCH 29.1 (27.0-33.0) pg MCHC 32.9 (31.0-35.0) g/dl RDW 13.8 (11.0-16.0) % Plt Count 240 (160-400) X10*3/uL MPV 10.2 (9.4-12.3) fL Immature Gran % (Auto) 0.3 (0.0-0.4) % Neut % (Auto) 71.9 (45-73) % Lymph % (Auto) 20.5 (20-40) % [place] % (Auto) 5.7 (2-11) % Eos % (Auto) 1.2 (0-4) % Baso % (Auto) 0.4 (0-2) % Lymph # (Auto) 1.4 (1.2-4.9) X10*3/uL [place] # (Auto) 0.4 (0.1-1.2) X10*3/uL Eos # (Auto) 0.1 (0.0-0.4) X10*3/uL Baso # (Auto) 0.0 (0.0-0.2) X10*3/uL Abs Immat Gran (auto) 0.02 (0.00-0.03) X10*3/uL Absolute Neuts (auto) 4.9 (2.0-8.3) x10*3/uL Absolute Nucleated RBC 0.000 (0.0-0.012) X10*3/uL Nucleated RBC % (auto) 0.0 (0.0-0.2) /100WBC PT 11.3 (10.0-13.1) SEC INR 1.0 (0.9-1.1) APTT 29.4 (26.0-36.4) SEC Sodium 141 (135-145) mmol/L Potassium 4.9 (3.3-5.1) mmol/L Chloride 107 (96-108) mmol/L Carbon Dioxide 27 (22-29) mmol/L Anion Gap 12 (12-20) BUN 9 (9-16) mg/dL Creatinine 0.81 (0.5-1.4) mg/dL Estim Creat Clear Calc 71.8 Estimated GFR > 60 Random Glucose 156 H (60-115) mg/dL Lactic Acid (0.5-2.0) mmol/L Calcium 9.5 (8.4-10.2) mg/dL Total Bilirubin 0.5 (0.0-1.0) mg/dL AST 18 (5-31) U/L ALT 16 (0-31) U/L Alkaline Phosphatase 51 (39-117) U/L Troponin I High Sens (<3.5-17.0) ng/L B-Natriuretic Peptide (<100) pg/mL Total Protein 6.3 L (6.5-8.0) g/dL Albumin 4.3 (3.5-5.0) g/dL Influenza Type A (PCR) (Negative) Influenza Type B (PCR) (Negative) RSV RNA Qual (PCR) (Negative) SARS-CoV-2 RNA (RT-PCR) (Negative) 06/14/22 06/14/22 06/14/22 Range/Units 09:56 09:56 10:45 WBC (4.8-10.8) X10*3/uL RBC (4.20-5.50) X10*6/uL Hgb (12.0-16.0) g/dl Hct (37.0-47.0) % MCV (80.0-98.0) fL MCH (27.0-33.0) pg MCHC (31.0-35.0) g/dl RDW (11.0-16.0) % Plt Count (160-400) X10*3/uL MPV (9.4-12.3) fL Immature Gran % (Auto) (0.0-0.4) % Neut % (Auto) (45-73) % Lymph % (Auto) (20-40) % [place] % (Auto) (2-11) % Eos % (Auto) (0-4) % Baso % (Auto) (0-2) % Lymph # (Auto) (1.2-4.9) X10*3/uL [place] # (Auto) (0.1-1.2) X10*3/uL Eos # (Auto) (0.0-0.4) X10*3/uL Baso # (Auto) (0.0-0.2) X10*3/uL Abs Immat Gran (auto) (0.00-0.03) X10*3/uL Absolute Neuts (auto) (2.0-8.3) x10*3/uL Absolute Nucleated RBC (0.0-0.012) X10*3/uL Nucleated RBC % (auto) (0.0-0.2) /100WBC PT (10.0-13.1) SEC INR (0.9-1.1) APTT (26.0-36.4) SEC Sodium (135-145) mmol/L Potassium (3.3-5.1) mmol/L Chloride (96-108) mmol/L Carbon Dioxide (22-29) mmol/L Anion Gap (12-20) BUN (9-16) mg/dL Creatinine (0.5-1.4) mg/dL Estim Creat Clear Calc Estimated GFR Random Glucose (60-115) mg/dL Lactic Acid (0.5-2.0) mmol/L Calcium (8.4-10.2) mg/dL Total Bilirubin (0.0-1.0) mg/dL AST (5-31) U/L ALT (0-31) U/L Alkaline Phosphatase (39-117) U/L Troponin I High Sens 4.0 (<3.5-17.0) ng/L B-Natriuretic Peptide < 10 (<100) pg/mL Total Protein (6.5-8.0) g/dL Albumin (3.5-5.0) g/dL Influenza Type A (PCR) NEGATIVE (Negative) Influenza Type B (PCR) NEGATIVE (Negative) RSV RNA Qual (PCR) NEGATIVE (Negative) SARS-CoV-2 RNA (RT-PCR) NEGATIVE (Negative) 06/14/22 06/14/22 Range/Units 10:46 13:17 WBC (4.8-10.8) X10*3/uL RBC (4.20-5.50) X10*6/uL Hgb (12.0-16.0) g/dl Hct (37.0-47.0) % MCV (80.0-98.0) fL MCH (27.0-33.0) pg MCHC (31.0-35.0) g/dl RDW (11.0-16.0) % Plt Count (160-400) X10*3/uL MPV (9.4-12.3) fL Immature Gran % (Auto) (0.0-0.4) % Neut % (Auto) (45-73) % Lymph % (Auto) (20-40) % [place] % (Auto) (2-11) % Eos % (Auto) (0-4) % Baso % (Auto) (0-2) % Lymph # (Auto) (1.2-4.9) X10*3/uL [place] # (Auto) (0.1-1.2) X10*3/uL Eos # (Auto) (0.0-0.4) X10*3/uL Baso # (Auto) (0.0-0.2) X10*3/uL Abs Immat Gran (auto) (0.00-0.03) X10*3/uL Absolute Neuts (auto) (2.0-8.3) x10*3/uL Absolute Nucleated RBC (0.0-0.012) X10*3/uL Nucleated RBC % (auto) (0.0-0.2) /100WBC PT (10.0-13.1) SEC INR (0.9-1.1) APTT (26.0-36.4) SEC Sodium (135-145) mmol/L Potassium (3.3-5.1) mmol/L Chloride (96-108) mmol/L Carbon Dioxide (22-29) mmol/L Anion Gap (12-20) BUN (9-16) mg/dL Creatinine (0.5-1.4) mg/dL Estim Creat Clear Calc Estimated GFR Random Glucose (60-115) mg/dL Lactic Acid 1.2 (0.5-2.0) mmol/L Calcium (8.4-10.2) mg/dL Total Bilirubin (0.0-1.0) mg/dL AST (5-31) U/L ALT (0-31) U/L Alkaline Phosphatase (39-117) U/L Troponin I High Sens 4.0 (<3.5-17.0) ng/L B-Natriuretic Peptide (<100) pg/mL Total Protein (6.5-8.0) g/dL Albumin (3.5-5.0) g/dL Influenza Type A (PCR) (Negative) Influenza Type B (PCR) (Negative) RSV RNA Qual (PCR) (Negative) SARS-CoV-2 RNA (RT-PCR) (Negative) Discharge Plan Discharge Clinical Impression: Chronic bronchitis Patient Disposition: Home, Self-Care Instructions: Chronic Bronchitis (ED) Additional Instructions: The blood work and EKG came back negative for heart attack or signs of heart failure. Chest x-ray came back negative for signs of heart failure and pneumonia. Your influenza RSV and COVID came back negative. You will be discharged with Tessalon Perles and steroids. 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 Continue using albuterol inhaler at home as needed. Return to the ED immediately for any chest pain, shortness of breath, leg swelling, calf pain, coughing up blood, fever, chills, chest pain inspiration, or any other concerning symptoms. Prescriptions: New prednisone 20 mg tablet 40 mg PO DAILY 5 Days Qty: 10 0RF benzonatate 100 mg capsule 100 mg PO TID PRN (Reason: cough) 5 Days Qty: 15 0RF No Action (DME) FreeStyle Jill 2 Rozet Misc See Rx Instructions .ROUTE .MEDSUPPLY Qty: 1 0RF Rx Instructions: As directed (DME) FreeStyle Jill 2 Sensor Kit See Rx Instructions .ROUTE .MEDSUPPLY Qty: 2 11RF Rx Instructions: Once every 14 days (DME) lancets [FreeStyle Lancets] 28 gauge misc See Rx Instructions .MEDSUPPLY Qty: 100 11RF Rx Instructions: 4x daily (DME) pulse oximeter See Rx Instructions .Route .MEDSUPPLY Qty: 1 0RF Rx Instructions: As directed to monitor oxygen levels Victoza 3-Jeanmarie 0.6 mg/0.1 mL (18 mg/3 mL) pen injector 1.8 mg subcut DAILY 90 Days Qty: 27 11RF ipratropium-albuterol 0.5 mg-3 mg(2.5 mg base)/3 mL solution for nebulization 3 ml PO Q6-8H PRN (Reason: for wheezing) Qty: 180 4RF (DME) pen needle, diabetic [Unifine Ultra Pen Needle] 32 gauge x 5/32 needle See Rx Instructions .Route Qty: 150 11RF Rx Instructions: As directed 5 times a day bisacodyl [Dulcolax (bisacodyl)] 5 mg tablet,delayed release (DR/EC) 10 mg PO BEDTIME PRN (Reason: constipation) 2 Days Qty: 30 5RF levocetirizine 5 mg tablet 5 mg PO DAILY Qty: 90 3RF docusate sodium 100 mg capsule 100 mg PO BID Qty: 180 3RF sennosides [senna] 8.6 mg tablet 17.2 mg PO BEDTIME Qty: 180 3RF pioglitazone 15 mg tablet 15 mg PO DAILY 30 Days Qty: 30 10RF Advair HFA 230-21 mcg/actuation HFA aerosol inhaler 2 puff inhalation BID Qty: 12 4RF cyanocobalamin (vitamin B-12) 500 mcg tablet 500 mcg PO DAILY Qty: 90 3RF Jardiance 25 mg tablet 25 mg PO DAILY 30 Days Qty: 30 11RF levothyroxine 25 mcg tablet 25 mcg PO QAM Qty: 90 3RF atorvastatin 40 mg tablet 40 mg PO DAILY Qty: 30 11RF esomeprazole magnesium 40 mg capsule,delayed release(DR/EC) 40 mg PO DAILY Qty: 90 0RF fenofibrate 160 mg tablet 160 mg PO DAILY Qty: 90 0RF gabapentin 600 mg tablet 600 mg PO TID 30 Days Qty: 90 11RF cholecalciferol (vitamin D3) 50 mcg (2,000 unit) capsule 50 mcg PO DAILY Qty: 90 3RF Tresiba FlexTouch U-100 100 unit/mL (3 mL) insulin pen 36 unit subcut DAILY Qty: 15 6RF insulin aspart U-100 100 unit/mL (3 mL) insulin pen See Protocol subcut TIDAC 30 Days Qty: 15 0RF Protocol: Insulin Correction Scale Less than or equal to 110 ---- Give (units): 0 111 to 150 Give (units): 0 151 to 200 Give (units): 2 201 to 250 Give (units): 4 251 to 300 Give (units): 6 301 to 350 Give (units): 8 Greater than 350 Give (units): 10 Call MD if Blood Glucose > : 350 Label Comments: Sliding scale Rx Instructions: Novolog sliding scale 3 times daily (200-250: 4 units, 251-300: 6 units, 301 - 350: 8 units, >351: 10 units ondansetron 4 mg tablet,disintegrating 4 mg PO Q8H PRN (Reason: nausea and vomiting) Qty: 20 0RF mirtazapine 7.5 mg tablet 1 tab PO BEDTIME meloxicam 15 mg tablet 15 mg PO DAILY Qty: 10 0RF duloxetine 60 mg capsule,delayed release(DR/EC) PO clonazepam 0.5 mg tablet 0.5 mg PO DAILY PRN aripiprazole 15 mg tablet 15 mg PO DAILY (DME) FreeStyle Lite Strips Strip See Rx Instructions Not Applicable TID Qty: 10 Rx Instructions: As directed Alphagan P 0.1 % drops 1 drp ophthalmic (eye) BID Belsomra 10 mg tablet 10 mg PO BEDTIME PRN albuterol sulfate 90 mcg/actuation HFA aerosol inhaler 2 puff inhalation Q4H PRN (Reason: Shortness Of Breath) 60 Days Qty: 8.5 2RF Interventions: ED Discharge Assessment Last Done: 06/14/22 16:33 Discharge Date/Time: 06/14/22 18:06 Print Language: Pakistani
[2022-06-14] MEDS: guaiFENesin 200 MG/10 ML 10 ML LIQUID PO (16:25)
[2022-06-14 16:41] VITALS: BP 132/82; PULSE 77; RESP 18; TEMP 36.7; O2SAT 99
--- NOTE | 2022-06-17 14:55 | ECG_ITS ---
Test Reason : cp Blood Pressure : / mmHG Vent. Rate : 094 BPM Atrial Rate : 094 BPM P-R Int : 150 ms QRS Dur : 068 ms QT Int : 338 ms P-R-T Axes : 052 066 054 degrees QTc Int : 422 ms Normal sinus rhythm with sinus arrhythmia Normal ECG When compared with ECG of 14-JUN-2022 10:04, No significant change was found Referred By: Dago Cano Electronically Signed By:Axel Spear
== END 2022-06-14 18:06 | disposition home or self-care (01) ==
PROVIDERS: Physician Assistant; Emergency Provider Emergency Medicine; PCP Internal Medicine
DX: J42 Unspecified chronic bronchitis (principal); R07.89 Other chest pain; R06.02 Shortness of breath; I10 Essential (primary) hypertension; M79.10 Myalgia, unspecified site; Z20.822 Contact with and (suspected) exposure to COVID-19; Z79.899 Other long term (current) drug therapy; F17.210 Nicotine dependence, cigarettes, uncomplicated; Z71.6 Tobacco abuse counseling
CPT/HCPCS: 0241U; 36415; 71045; 80053; 83605; 83880; 84484; 85025; 85610; 85730; 87040; 93005; 94640; 96374; 99284; J2405

== ENCOUNTER 2022-06-16 19:28 | Inpatient (IN) | payer OTHER, SELFPAY ==
--- NOTE | ~2022-06-16 | XR_ITS ---
EXAMINATION: XR CHEST CLINICAL INFORMATION: Cough. COMPARISON: Chest 10/21/2021 TECHNIQUE: Frontal view of the chest was obtained. FINDINGS: The lungs are hyperinflated with platelike atelectasis left lung base. The heart size and pulmonary vascularity is normal. No gross bony abnormality seen. XR/XR chest 1V IMPRESSION: Hyperinflated lungs with platelike atelectasis left lung base.
--- NOTE | ~2022-06-16 | US_ITS ---
EXAMINATION: US VENOUS ULTRASOUND WITH DOPPLER LOWER EXTREMITY, BILATERAL CLINICAL INFORMATION: Bilateral lower extremity edema and pain. COMPARISON: None TECHNIQUE: Ultrasound of the deep veins is performed from the hip to the calf with compression sonography and color and pulse Doppler assessment. Spectral analysis with color-flow imaging is performed. FINDINGS: RIGHT: There is normal venous compression and respiratory variation and augmented flow. The visualized common femoral vein, superficial femoral vein, profunda femoral vein, popliteal vein, and the trifurcation region shows no evidence of deep venous thrombosis. There is no significant popliteal fossa cyst. LEFT: There is normal venous compression and respiratory variation and augmented flow. The visualized common femoral vein, superficial femoral vein, profunda femoral vein, popliteal vein, and the trifurcation region shows no evidence of deep venous thrombosis. There is no significant popliteal fossa cyst. If the patient's symptoms persist, followup ultrasound in 5 days 7 days might be of value to exclude proximal propagation from a non-visualized calf vein. US/US venous duplex LE BI IMPRESSION: No DVT demonstrated in the bilateral lower extremity.
[2022-06-16 19:36] VITALS: BP 142/71; PULSE 92; RESP 18; TEMP 36.1; O2SAT 94; BMI 31.9
[2022-06-16 20:18] LABS: Appearance Urine Clear; Color Urine Yellow; Glucose Urine UA >=1000 mg/dL (Negative); Leukocyte Esterase Urine Negative (Negative); Nitrite Urine Negative (Negative); Specific Gravity - Urine >= 1.030 (1.005-1.025); UMIC TRIGGER UA YES; Urine Blood Negative (Negative); Urine Ketones Negative (Negative); Urine Protein Negative (Neg-Trace)
[2022-06-16 20:25] LABS: Urine Pregnancy NEGATIVE (NEGATIVE)
[2022-06-16 20:26] LABS: UPreg QC Valid YES
[2022-06-16 20:30] LABS: Amphetamine Screen Urine Not Detected (Not Detect); Barbiturates, Urine Not Detected (Not Detect); Benzodiazepines Screen Urine Not Detected (Not Detect); Cannabinoid Screen Urine Not Detected (Not Detect); Cocaine Screen Urine Not Detected (Not Detect); Fentanyl, urine Not Detected (Not Detect); Opiate Screen Urine Not Detected (Not Detect); Phencyclidine Screen Urine Not Detected (Not Detect)
[2022-06-16 20:36] LABS: MANUAL DIFF FLAG NO
[2022-06-16 20:38] LABS: Basophils Percent Auto 0.5 % (0-2); Eosinophils Absolute Auto 0.1 X10*3/uL (0.0-0.4); Eosinophils Percent Auto 1.2 % (0-4); Hemoglobin 14.3 g/dl (12.0-16.0); Imm Gran Abs Auto 0.03 X10*3/uL (0.00-0.03); Imm Gran Pct Auto 0.4 % (0.0-0.4); Lymphocytes Absolute Auto 2.2 X10*3/uL (1.2-4.9); Lymphocytes Percent Auto 27.2 % (20-40); Mean Corpuscular HGB Conc 33.3 g/dl (31.0-35.0); Mean Corpuscular Hemoglobin 28.9 pg (27.0-33.0); Monocytes Absolute Auto 0.6 X10*3/uL (0.1-1.2); Monocytes Percent Auto 6.7 % (2-11); Neutrophils Absolute Auto 5.3 x10*3/uL (2.0-8.3); Platelet Count 248 X10*3/uL (160-400); Red Blood Count 4.94 X10*6/uL (4.20-5.50); Red Cell Distribution Width 13.8 % (11.0-16.0); White Blood Count 8.2 X10*3/uL (4.8-10.8)
[2022-06-16 20:39] LABS: Bacteria Urine None Seen (None Seen); Hyaline Casts Urine 0-2 /LPF (0-2); RBC Urine 0-2 /HPF (0-2); Squamous Epithelial Cell Urine 0-2 /HPF (0-2); WBC Urine 0-5 /HPF (0-5)
[2022-06-16 20:50] LABS: Acetaminophen LAB < 1 mcg/mL (<30); Salicylate < 5.0 mg/dL (15-30)
[2022-06-16 20:53] LABS: Alanine Aminotransferase 16 U/L (0-31); Albumin Level 4.3 g/dL (3.5-5.0); Alkaline Phosphatase 51 U/L (39-117); Anion Gap 12 (12-20); Aspartate Amino Transferase 18 U/L (5-31); Bilirubin Total 0.4 mg/dL (0.0-1.0); Blood Urea Nitrogen 15 mg/dL (9-16); Calcium 9.2 mg/dL (8.4-10.2); Carbon Dioxide 25 mmol/L (22-29); Chloride 107 mmol/L (96-108); Creatinine Clr Calc Pharmacy 76.6; Estimated Glomerular Filt Rate > 60; Ethanol < 10 mg/dL; Glucose Random 182 mg/dL (60-115); Potassium 3.8 mmol/L (3.3-5.1); Sodium 140 mmol/L (135-145); Total Protein 6.2 g/dL (6.5-8.0)
--- NOTE | 2022-06-16 20:54 | ED_ITS ---
HPI - Psych General Chief Complaint: Psychiatric Symptoms Stated Complaint: SI Source: patient and EMS Mode of arrival: EMS Limitations: no limitations History of Present Illness HPI Narrative: Patient comes to the emergency room complaining of suicidal ideation. Patient states that her plan was to overdose with her prescription medications. Patient states that approximately 6 weeks ago, for unclear reason, her medications were no longer prescribed, she has been off medications for all this time, gradually becoming more depressed and suicidal. Denies homicidal ideation. Related Data Home Medications Medication Instructions Recorded Confirmed blood sugar diagnostic #10 ea 05/19/20 03/09/22 brimonidine 0.1 % eye drops 1 drp ophthalmic (eye) BID 01/06/21 06/16/22 (Alphagan P) suvorexant 10 mg tablet (Belsomra) 10 mg PO BEDTIME PRN Insomnia 07/02/21 06/16/22 clonazepam 0.5 mg tablet 0.5 mg PO DAILY PRN Anxiety 08/07/21 06/16/22 aripiprazole 15 mg tablet 1 tab PO DAILY 06/16/22 06/16/22 atorvastatin 40 mg tablet 1 tab PO DAILY 06/16/22 06/16/22 docusate sodium 100 mg capsule 1 cap PO BID 06/16/22 06/16/22 empagliflozin 25 mg tablet 1 tab PO DAILY 06/16/22 06/16/22 (Jardiance) esomeprazole magnesium 40 mg 1 cap PO DAILY 06/16/22 06/16/22 capsule,delayed release fenofibrate 160 mg tablet 1 tab PO DAILY 06/16/22 06/16/22 fluticasone propionate 230 2 puff inhalation BID 06/16/22 06/16/22 mcg-salmeterol 21 mcg/actuation HFA inhaler (Advair HFA) gabapentin 600 mg tablet 1 tab PO TID 06/16/22 06/16/22 latanoprost 0.005 % eye drops 1 drp ophthalmic (eye) BEDTIME 06/16/22 06/16/22 levothyroxine 25 mcg tablet 1 tab PO DAILY 06/16/22 06/16/22 pioglitazone 15 mg tablet 1 tab PO DAILY 06/16/22 06/16/22 sennosides 8.6 mg tablet (senna) 2 tab PO DAILY 06/16/22 06/16/22 Previous Rx's Medication Instructions Recorded flash glucose scanning reader #1 ea 10/27/20 (FreeStyle Jill 2 [place]) flash glucose sensor (FreeStyle #2 ea 12/25/20 Jill 2 Sensor kit) lancets 28 gauge (FreeStyle #100 ea 03/23/21 Lancets) pulse oximeter #1 ea 05/12/21 liraglutide 0.6 mg/0.1 mL (18 mg/3 1.8 mg (0.3 mL) subcut DAILY 90 07/01/21 mL) subcutaneous pen injector days #27 mL (Victoza 3-Jeanmarie) pen needle, diabetic 32 gauge x #150 ea 07/13/21 (Unifine Ultra Pen Needle) bisacodyl 5 mg tablet,delayed 10 mg PO BEDTIME PRN constipation 09/01/21 release (Dulcolax (bisacodyl)) 2 days #30 tabs cyanocobalamin (vitamin B-12) 500 500 mcg PO DAILY #90 tabs 01/20/22 mcg tablet albuterol sulfate 90 mcg/actuation 2 puff inhalation Q4H PRN 06/03/22 aerosol inhaler Shortness Of Breath 60 days #8.5 grams cholecalciferol (vitamin D3) 50 50 mcg PO DAILY #90 caps 06/10/22 mcg (2,000 unit) capsule insulin aspart U-100 100 unit/mL See Protocol subcut TIDAC 30 days 06/10/22 (3 mL) subcutaneous pen #15 mL insulin degludec 100 unit/mL (3 36 unit (0.36 mL) subcut DAILY #15 06/10/22 mL) subcutaneous pen (Tresiba mL FlexTouch U-100 insulin) benzonatate 100 mg capsule 100 mg PO TID PRN cough 5 days #15 06/14/22 caps Allergies Allergy/AdvReac Type Severity Reaction Status Date / Time ziprasidone [From Geodon] Allergy Mild RASH-PALPIT Verified 06/03/22 10:44 ATIONS aspirin [ASPIRIN] Allergy Unknown GI bleed, Verified 06/03/22 10:44 stomach upset azithromycin Allergy Unknown facial Verified 06/03/22 10:44 swelling cephalexin [From KEFLEX] Allergy Unknown can't Verified 06/03/22 10:44 remember ibuprofen [IBUPROFEN] Allergy Unknown UNKNOWN, Verified 06/03/22 10:44 stomach upset lisinopril Allergy Unknown cough Verified 06/03/22 10:44 metformin [METFORMIN] Allergy Unknown NAUSEA & Verified 06/03/22 10:44 VOMITING, GI upset valsartan [From Diovan] Allergy Unknown hives Verified 06/03/22 10:44 NSAIDS (Non-Steroidal AdvReac Unknown HX OF GI Verified 06/03/22 10:44 Anti-Inflamma BLEED [NSAIDS (NON-STEROIDAL ANTI-INFLAMMA] tramadol [Ultram] AdvReac Unknown GI upset Verified 06/03/22 10:44 Review of Systems Review of Systems: Constitutional : No Weight loss, No Fever, No Chills, No Night Sweats, No Fatigue, No Malaise ENT/Mouth : No Hearing loss, No Ear Pain, No Nasal Congestion, No Sinus Pain, No Hoarseness, No sore throat, No Rhinorrhea, No Swallowing Difficulty Eyes: No Eye Pain, No Swelling, No Redness, No Foreign Body, No Discharge, No Vision Changes Cardiovascular : No Chest Pain, No SOB, No Dyspnea on Exertion, No Orthopnea, No Edema, No Palpitations Respiratory : No Cough, No Sputum, No Wheezing, No Smoke Exposure, No Dyspnea Gastrointestinal : No Nausea, No Vomiting, No Diarrhea, No Constipation, No abdominal Pain, No Hematochezia, No Melena Genitourinary : no irregular bleeding, No Dysuria, No Urinary Frequency, No Hematuria, No Urinary Incontinence, No Urgency, No Flank Pain, No Urinary Flow Changes, No Hesitancy Musculoskeletal : No joint pain, No Myalgias, No Joint Swelling Skin : No Skin Lesions, No rash Neuro : No Weakness, No Numbness, No Paresthesias, No Loss of Consciousness, No Dizziness, No Headache Psych : Complain of anxiety, depression, suicidal ideation, no homicidal ideation Heme/Lymph: No Bruising, No Bleeding,No Lymphadenopathy Endocrine : No Polyuria, No Polydipsia, No Temperature Intolerance [facility] Past Medical History Medical History Chest pain Constipation COPD (chronic obstructive pulmonary disease) Depression العلي (dyspnea on exertion) HLD (hyperlipidemia) HTN (hypertension) Jaw pain Multinodular thyroid Nocturnal hypoxemia Osteopenia (~2015) Personal history of nicotine dependence Pulmonary nodule Sialoadenitis Smoker Spinal stenosis T2DM (type 2 diabetes mellitus) (~2008) Vitamin D deficiency Surgical History History of cardiac catheterization History of lithotripsy Hx of arthroscopy of left knee Hx of cholecystectomy Hx of colonoscopy Hx of spinal fusion S/P thyroid biopsy Family History Family History Father No problems noted. Mother Cancer Diabetes Social History Social History Household Members: None Housing: Apartment Alcohol intake: never Patient Tobacco Use Status: Current everyday Tobacco user Smoking Start Date: 04/01/1964 Tobacco use type: Cigarette Cigarettes Per Day: 10 e-Cigarette/Vaping Use: Former Use Second Hand Smoke Exposure: No Advance Directives: Yes Advance Directives on File: Yes Advance Directives Date on File: 04/02/21 Current occupational status: retired Cognitive needs: No Hearing needs: No Vision needs: No Physical Exam Vital Signs: Vital Signs: Last Vital Signs Temp 97.0 F 06/16/22 19:36 Pulse 92 06/16/22 19:36 Resp 18 06/16/22 19:36 BP 142/71 H 06/16/22 19:36 Pulse Ox 94 06/16/22 19:36 O2 Del Method 06/16/22 19:36 BMI result Body Mass Index 31.9 Const: Other: Appearance: Alert. Oriented X3. No acute distress. Eyes: Pupils equal, round and reactive to light. ENT: Pharynx normal. Neck: Normal inspection. Neck supple. No lymph nodes noted. No crepitus CVS: Normal heart rate and rhythm. Pulses normal. Normal S1 and S2 Respiratory: No respiratory distress. Breath sounds normal. No Wheezing. No rales Abdomen: Soft and nontender. No rigidity. No distention. Skin: Skin warm and dry. Normal skin color. Normal skin turgor. Extremities: No lower extremity edema. No Lacerations. No Rash Neuro: Oriented X 3. No motor deficit. No sensory deficit. Moving all extremities. No slurred speech. CN 2 through 12 grossly intact Psych: calm, cooperative, normal affect Course Course Course Narrative: Patient's nurse states that the patient has already been accepted, pending room availability. Patient will be going to . Medications Administered Generic Name Dose Route Start Last Admin Trade Name Dawoodq PRN Reason Stop Dose Admin Albuterol Sulfate 2 puff 06/16/22 22:12 06/16/22 22:50 Albuterol Sulfate 90 Mcg 8 Gm Inhaler INHALE 2 puff Q4H PRN Administration Shortness Of Breath Benzonatate 100 mg 06/16/22 22:12 06/16/22 22:50 Benzonatate 100 Mg Capsule PO 100 mg TID PRN Administration cough Clonazepam 0.5 mg 06/16/22 22:12 06/16/22 22:43 Clonazepam 0.5 Mg Tablet PO 0.5 mg DAILY PRN Administration Anxiety Gabapentin 600 mg 06/17/22 09:00 06/16/22 22:43 Gabapentin 600 Mg Tablet PO 600 mg TID ROBIN Administration Latanoprost 1 drop 06/17/22 21:00 06/16/22 22:44 Latanoprost 0.005 % Ophth Sade 2.5 Ml Drops EYE-BOTH 1 drop BEDTIME ROBIN Administration Pt Own (Brimonidine 1 drop 06/17/22 09:00 06/16/22 22:43 [Alphagan P] 0.1 % EYE-BOTH 1 drop Drops) BID ROBIN Administration Medical Decision Making Lab Data Result Diagrams: 06/16/22 20:28 06/16/22 20:28 Labs: Lab Results 06/16/22 06/16/22 06/16/22 Range/Units 20:11 20:11 20:11 WBC (4.8-10.8) X10*3/uL RBC (4.20-5.50) X10*6/uL Hgb (12.0-16.0) g/dl Hct (37.0-47.0) % MCV (80.0-98.0) fL MCH (27.0-33.0) pg MCHC (31.0-35.0) g/dl RDW (11.0-16.0) % Plt Count (160-400) X10*3/uL MPV (9.4-12.3) fL Immature Gran % (Auto) (0.0-0.4) % Neut % (Auto) (45-73) % Lymph % (Auto) (20-40) % [place] % (Auto) (2-11) % Eos % (Auto) (0-4) % Baso % (Auto) (0-2) % Lymph # (Auto) (1.2-4.9) X10*3/uL [place] # (Auto) (0.1-1.2) X10*3/uL Eos # (Auto) (0.0-0.4) X10*3/uL Baso # (Auto) (0.0-0.2) X10*3/uL Abs Immat Gran (auto) (0.00-0.03) X10*3/uL Absolute Neuts (auto) (2.0-8.3) x10*3/uL Absolute Nucleated RBC (0.0-0.012) X10*3/uL Nucleated RBC % (auto) (0.0-0.2) /100WBC Sodium (135-145) mmol/L Potassium (3.3-5.1) mmol/L Chloride (96-108) mmol/L Carbon Dioxide (22-29) mmol/L Anion Gap (12-20) BUN (9-16) mg/dL Creatinine (0.5-1.4) mg/dL Estim Creat Clear Calc Estimated GFR Random Glucose (60-115) mg/dL Calcium (8.4-10.2) mg/dL Total Bilirubin (0.0-1.0) mg/dL AST (5-31) U/L ALT (0-31) U/L Alkaline Phosphatase (39-117) U/L Total Protein (6.5-8.0) g/dL Albumin (3.5-5.0) g/dL Urine Color Yellow Urine Appearance Clear Urine pH 5.0 (5.0-9.0) Ur Specific [place] >= 1.030 H (1.005-1.025) Urine Protein Negative (Neg-Trace) mg/dL Urine Glucose (UA) >=1000 H (Negative) mg/dL Urine Ketones Negative (Negative) mg/dL Urine Blood Negative (Negative) Urine Nitrite Negative (Negative) Ur Leukocyte Esterase Negative (Negative) Urine RBC 0-2 (0-2) /HPF Urine WBC 0-5 (0-5) /HPF Ur Squamous Epith Cells 0-2 (0-2) /HPF Urine Bacteria None Seen (None Seen) Hyaline Casts 0-2 (0-2) /LPF Urine Test (NEGATIVE) Salicylates (15-30) mg/dL Urine Opiates Screen Not Detected (Not Detect) Urine Fentanyl Screen Not Detected (Not Detect) Acetaminophen (<30) mcg/mL Ur Barbiturates Screen Not Detected (Not Detect) Ur Phencyclidine Scrn Not Detected (Not Detect) Ur Amphetamines Screen Not Detected (Not Detect) U Benzodiazepines Scrn Not Detected (Not Detect) Urine Cocaine Screen Not Detected (Not Detect) U Marijuana (THC) Screen Not Detected (Not Detect) Ethyl Alcohol mg/dL Influenza Type A (PCR) NEGATIVE (Negative) Influenza Type B (PCR) NEGATIVE (Negative) RSV RNA Qual (PCR) NEGATIVE (Negative) SARS-CoV-2 RNA (RT-PCR) NEGATIVE (Negative) 06/16/22 06/16/22 06/16/22 Range/Units 20:11 20:28 20:28 WBC (4.8-10.8) X10*3/uL RBC (4.20-5.50) X10*6/uL Hgb (12.0-16.0) g/dl Hct (37.0-47.0) % MCV (80.0-98.0) fL MCH (27.0-33.0) pg MCHC (31.0-35.0) g/dl RDW (11.0-16.0) % Plt Count (160-400) X10*3/uL MPV (9.4-12.3) fL Immature Gran % (Auto) (0.0-0.4) % Neut % (Auto) (45-73) % Lymph % (Auto) (20-40) % [place] % (Auto) (2-11) % Eos % (Auto) (0-4) % Baso % (Auto) (0-2) % Lymph # (Auto) (1.2-4.9) X10*3/uL [place] # (Auto) (0.1-1.2) X10*3/uL Eos # (Auto) (0.0-0.4) X10*3/uL Baso # (Auto) (0.0-0.2) X10*3/uL Abs Immat Gran (auto) (0.00-0.03) X10*3/uL Absolute Neuts (auto) (2.0-8.3) x10*3/uL Absolute Nucleated RBC (0.0-0.012) X10*3/uL Nucleated RBC % (auto) (0.0-0.2) /100WBC Sodium 140 (135-145) mmol/L Potassium 3.8 D (3.3-5.1) mmol/L Chloride 107 (96-108) mmol/L Carbon Dioxide 25 (22-29) mmol/L Anion Gap 12 (12-20) BUN 15 (9-16) mg/dL Creatinine 0.76 (0.5-1.4) mg/dL Estim Creat Clear Calc 76.6 Estimated GFR > 60 Random Glucose 182 H (60-115) mg/dL Calcium 9.2 (8.4-10.2) mg/dL Total Bilirubin 0.4 (0.0-1.0) mg/dL AST 18 (5-31) U/L ALT 16 (0-31) U/L Alkaline Phosphatase 51 (39-117) U/L Total Protein 6.2 L (6.5-8.0) g/dL Albumin 4.3 (3.5-5.0) g/dL Urine Color Urine Appearance Urine pH (5.0-9.0) Ur Specific [place] (1.005-1.025) Urine Protein (Neg-Trace) mg/dL Urine Glucose (UA) (Negative) mg/dL Urine Ketones (Negative) mg/dL Urine Blood (Negative) Urine Nitrite (Negative) Ur Leukocyte Esterase (Negative) Urine RBC (0-2) /HPF Urine WBC (0-5) /HPF Ur Squamous Epith Cells (0-2) /HPF Urine Bacteria (None Seen) Hyaline Casts (0-2) /LPF Urine Test NEGATIVE (NEGATIVE) Salicylates < 5.0 L (15-30) mg/dL Urine Opiates Screen (Not Detect) Urine Fentanyl Screen (Not Detect) Acetaminophen < 1 (<30) mcg/mL Ur Barbiturates Screen (Not Detect) Ur Phencyclidine Scrn (Not Detect) Ur Amphetamines Screen (Not Detect) U Benzodiazepines Scrn (Not Detect) Urine Cocaine Screen (Not Detect) U Marijuana (THC) Screen (Not Detect) Ethyl Alcohol < 10 mg/dL Influenza Type A (PCR) (Negative) Influenza Type B (PCR) (Negative) RSV RNA Qual (PCR) (Negative) SARS-CoV-2 RNA (RT-PCR) (Negative) 06/16/22 Range/Units 20:28 WBC 8.2 (4.8-10.8) X10*3/uL RBC 4.94 (4.20-5.50) X10*6/uL Hgb 14.3 (12.0-16.0) g/dl Hct 43.0 (37.0-47.0) % MCV 87.0 (80.0-98.0) fL MCH 28.9 (27.0-33.0) pg MCHC 33.3 (31.0-35.0) g/dl RDW 13.8 (11.0-16.0) % Plt Count 248 (160-400) X10*3/uL MPV 10.0 (9.4-12.3) fL Immature Gran % (Auto) 0.4 (0.0-0.4) % Neut % (Auto) 64.0 (45-73) % Lymph % (Auto) 27.2 (20-40) % [place] % (Auto) 6.7 (2-11) % Eos % (Auto) 1.2 (0-4) % Baso % (Auto) 0.5 (0-2) % Lymph # (Auto) 2.2 (1.2-4.9) X10*3/uL [place] # (Auto) 0.6 (0.1-1.2) X10*3/uL Eos # (Auto) 0.1 (0.0-0.4) X10*3/uL Baso # (Auto) 0.0 (0.0-0.2) X10*3/uL Abs Immat Gran (auto) 0.03 (0.00-0.03) X10*3/uL Absolute Neuts (auto) 5.3 (2.0-8.3) x10*3/uL Absolute Nucleated RBC 0.000 (0.0-0.012) X10*3/uL Nucleated RBC % (auto) 0.0 (0.0-0.2) /100WBC Sodium (135-145) mmol/L Potassium (3.3-5.1) mmol/L Chloride (96-108) mmol/L Carbon Dioxide (22-29) mmol/L Anion Gap (12-20) BUN (9-16) mg/dL Creatinine (0.5-1.4) mg/dL Estim Creat Clear Calc Estimated GFR Random Glucose (60-115) mg/dL Calcium (8.4-10.2) mg/dL Total Bilirubin (0.0-1.0) mg/dL AST (5-31) U/L ALT (0-31) U/L Alkaline Phosphatase (39-117) U/L Total Protein (6.5-8.0) g/dL Albumin (3.5-5.0) g/dL Urine Color Urine Appearance Urine pH (5.0-9.0) Ur Specific [place] (1.005-1.025) Urine Protein (Neg-Trace) mg/dL Urine Glucose (UA) (Negative) mg/dL Urine Ketones (Negative) mg/dL Urine Blood (Negative) Urine Nitrite (Negative) Ur Leukocyte Esterase (Negative) Urine RBC (0-2) /HPF Urine WBC (0-5) /HPF Ur Squamous Epith Cells (0-2) /HPF Urine Bacteria (None Seen) Hyaline Casts (0-2) /LPF Urine Test (NEGATIVE) Salicylates (15-30) mg/dL Urine Opiates Screen (Not Detect) Urine Fentanyl Screen (Not Detect) Acetaminophen (<30) mcg/mL Ur Barbiturates Screen (Not Detect) Ur Phencyclidine Scrn (Not Detect) Ur Amphetamines Screen (Not Detect) U Benzodiazepines Scrn (Not Detect) Urine Cocaine Screen (Not Detect) U Marijuana (THC) Screen (Not Detect) Ethyl Alcohol mg/dL Influenza Type A (PCR) (Negative) Influenza Type B (PCR) (Negative) RSV RNA Qual (PCR) (Negative) SARS-CoV-2 RNA (RT-PCR) (Negative) Discharge Plan Discharge Clinical Impression: Suicidal ideation Patient Disposition: Admitted As Inpatient Prescriptions: No Action (DME) FreeStyle Jill 2 [place] Misc See Rx Instructions .ROUTE .MEDSUPPLY Qty: 1 0RF Rx Instructions: As directed (DME) FreeStyle Jill 2 Sensor Kit See Rx Instructions .ROUTE .MEDSUPPLY Qty: 2 11RF Rx Instructions: Once every 14 days (DME) lancets [FreeStyle Lancets] 28 gauge misc See Rx Instructions .MEDSUPPLY Qty: 100 11RF Rx Instructions: 4x daily (DME) pulse oximeter See Rx Instructions .Route .MEDSUPPLY Qty: 1 0RF Rx Instructions: As directed to monitor oxygen levels Victoza 3-Jeanmarie 0.6 mg/0.1 mL (18 mg/3 mL) pen injector 1.8 mg subcut DAILY 90 Days Qty: 27 11RF (DME) pen needle, diabetic [Unifine Ultra Pen Needle] 32 gauge x 5/32 needle See Rx Instructions .Route Qty: 150 11RF Rx Instructions: As directed 5 times a day bisacodyl [Dulcolax (bisacodyl)] 5 mg tablet,delayed release (DR/EC) 10 mg PO BEDTIME PRN (Reason: constipation) 2 Days Qty: 30 5RF cyanocobalamin (vitamin B-12) 500 mcg tablet 500 mcg PO DAILY Qty: 90 3RF cholecalciferol (vitamin D3) 50 mcg (2,000 unit) capsule 50 mcg PO DAILY Qty: 90 3RF Tresiba FlexTouch U-100 100 unit/mL (3 mL) insulin pen 36 unit subcut DAILY Qty: 15 6RF insulin aspart U-100 100 unit/mL (3 mL) insulin pen See Protocol subcut TIDAC 30 Days Qty: 15 0RF Protocol: Insulin Correction Scale Less than or equal to 110 ---- Give (units): 0 111 to 150 Give (units): 0 151 to 200 Give (units): 2 201 to 250 Give (units): 4 251 to 300 Give (units): 6 301 to 350 Give (units): 8 Greater than 350 Give (units): 10 Call MD if Blood Glucose > : 350 Label Comments: Sliding scale Rx Instructions: Novolog sliding scale 3 times daily (200-250: 4 units, 251-300: 6 units, 301 - 350: 8 units, >351: 10 units benzonatate 100 mg capsule 100 mg PO TID PRN (Reason: cough) 5 Days Qty: 15 0RF pioglitazone 15 mg tablet 1 tab PO DAILY atorvastatin 40 mg tablet 1 tab PO DAILY sennosides [senna] 8.6 mg tablet 2 tab PO DAILY gabapentin 600 mg tablet 1 tab PO TID levothyroxine 25 mcg tablet 1 tab PO DAILY aripiprazole 15 mg tablet 1 tab PO DAILY Advair HFA 230-21 mcg/actuation HFA aerosol inhaler 2 puff inhalation BID Jardiance 25 mg tablet 1 tab PO DAILY esomeprazole magnesium 40 mg capsule,delayed release(DR/EC) 1 cap PO DAILY docusate sodium 100 mg capsule 1 cap PO BID fenofibrate 160 mg tablet 1 tab PO DAILY latanoprost 0.005 % drops 1 drp ophthalmic (eye) BEDTIME clonazepam 0.5 mg tablet 0.5 mg PO DAILY PRN (Reason: Anxiety) (DME) FreeStyle Lite Strips Strip See Rx Instructions Not Applicable TID Qty: 10 Rx Instructions: As directed Alphagan P 0.1 % drops 1 drp ophthalmic (eye) BID Belsomra 10 mg tablet 10 mg PO BEDTIME PRN (Reason: Insomnia) albuterol sulfate 90 mcg/actuation HFA aerosol inhaler 2 puff inhalation Q4H PRN (Reason: Shortness Of Breath) 60 Days Qty: 8.5 2RF
[2022-06-16 20:58] LABS: Influenza A PCR NEGATIVE (Negative); Influenza B PCR NEGATIVE (Negative); Resp Syncy Virus RNA Qual PCR NEGATIVE (Negative); SARS COV2 PCR INHOUSE NEGATIVE (Negative)
[2022-06-16] MEDS: clonazePAM 0.5 MG TABLET PO (22:43)
[2022-06-16] MEDS: Gabapentin 600 MG TABLET PO (22:43)
[2022-06-16] MEDS: Latanoprost 0.005 % Ophth Sol 2.5 ML DROPS 1 DROP EYE-BOTH (22:44)
[2022-06-16] MEDS: Benzonatate 100 MG CAPSULE PO (22:50)
[2022-06-16] MEDS: Albuterol Sulfate 90 MCG 8 GM INHALER 2 PUFF INHALE (22:50)
[2022-06-17 03:41] VITALS: BP 135/53; PULSE 89; RESP 15; TEMP 36.6; O2SAT 92
[2022-06-17] MEDS: Levothyroxine Sodium 25 MCG TABLET PO (05:04)
--- NOTE | 2022-06-17 05:27 | PC.NURSE ---
Patient slept almost three hours, patient is COPD RR 15, SpO2 92% RA, wheezes on exertion consistent with COPD, intermittently coughing, Chest X-ray unremarkable, patient requesting Prednisone provider made aware/no new order, Flu and Covid both negative, compliant with medication, patient was assessed by [facility] in the community disposition is section 12 inpatient bed search, will continue to monitor.
[2022-06-17] MEDS: Omeprazole 20 MG CAPSULE.DR PO (05:35)
[2022-06-17 06:40] LABS: Glucose, Whole Blood 177 mg/dL (60-115)
[2022-06-17] MEDS: Cholecalciferol (Vitamin D3) 25 MCG TABLET 50 MCG PO (07:30)
[2022-06-17] MEDS: ARIPiprazole 15 MG TABLET PO (07:30)
[2022-06-17] MEDS: Atorvastatin Calcium 40 MG TABLET PO (07:31)
[2022-06-17] MEDS: Insulin Glargine,Hum.rec.anlog 100 UNIT/ML 10 ML VIAL 25 UNIT SUBCUT (07:31)
[2022-06-17] MEDS: Cyanocobalamin (Vitamin B-12) 500 MCG TABLET PO (07:31)
[2022-06-17] MEDS: predniSONE 20 MG TABLET 60 MG PO (07:31)
[2022-06-17] MEDS: Gabapentin 600 MG TABLET PO ×3 (07:31→22:03)
[2022-06-17] MEDS: Fenofibrate 160 MG TABLET PO (07:34)
[2022-06-17] MEDS: Empagliflozin 25 MG TABLET PO (07:45)
--- NOTE | 2022-06-17 07:55 | PC.NURSE ---
ate breakfast, pleasant, skin wpd, steady gait, now back in bed, medicated as ordered, declined her inhalers and laxatives, basilio w nad
[2022-06-17] MEDS: clonazePAM 0.5 MG TABLET PO ×2 (10:19→22:34)
--- NOTE | 2022-06-17 10:22 | PC.NURSE ---
pt threw her water pitcher against the wall, tearful and agitated, states she wants to go home and wants a cigarette. nicotine patch offered and declined, dalton atkinsn given
[2022-06-17 13:22] LABS: Glucose, Whole Blood 273 mg/dL (60-115)
[2022-06-17] MEDS: Insulin Lispro 100 UNIT/ML 3 ML VIAL SUBCUT ×2 (13:22→18:35)
--- NOTE | 2022-06-17 14:55 | ECG_ITS ---
Test Reason : chest pain Blood Pressure : / mmHG Vent. Rate : 092 BPM Atrial Rate : 092 BPM P-R Int : 138 ms QRS Dur : 078 ms QT Int : 340 ms P-R-T Axes : 059 063 046 degrees QTc Int : 420 ms Normal sinus rhythm Normal ECG When compared with ECG of 17-JUN-2022 14:55, No significant change was found Referred By: Rya Leon Electronically Signed By:Axel Spear
--- NOTE | 2022-06-17 15:51 | PC.NURSE ---
Pt seen for group intervention with peer currently in POD. Pts engaged in sensory, seasonal activity, and puzzle activity with good effect as noted by elevation in mood laughing and engaging in appropriate socialization with peer. Both pts continue to laugh and socialize with each other at conclusion of group.
[2022-06-17 20:41] VITALS: BMI 30.9
[2022-06-17] MEDS: Melatonin 3 MG TABLET 9 MG PO (22:51)
[2022-06-17 23:59] VITALS: BP 125/61; PULSE 83; RESP 18; TEMP 36; O2SAT 94
--- NOTE | 2022-06-18 00:20 | PC.ADMIT ---
20:00 71 y/o female admitted from [facility] psychiatric POD of the ED. She arrived on M5 in a wheel chair escorted by ED staff. She reported that she has been crying and yelling at people. She states that she has been unable to get her medications filled at the mail in pharmacy that she normally gets them from. The pharmacy reportedly told her that they could not get the provider to renew them timely. She endorsed +SI with a plan to overdose on a bottle of medications that she has been saving. She further reports that she stopped her insulin as part of her self injurious plan. She was fully cooperative with the admission process and readily participated in same. She did express future orientation stating that she hopes to be out for [place] as she wants to be with family members at the home of her niece, Azra Verma.
[2022-06-18] MEDS: hydrOXYzine HCL 25 MG TABLET PO ×2 (01:14→14:48)
[2022-06-18] MEDS: Omeprazole 20 MG CAPSULE.DR PO (05:36)
[2022-06-18] MEDS: Levothyroxine Sodium 25 MCG TABLET PO (05:36)
[2022-06-18 08:13] VITALS: BP 132/62; PULSE 89; RESP 17; TEMP 36.2; O2SAT 92
[2022-06-18] MEDS: Cyanocobalamin (Vitamin B-12) 500 MCG TABLET PO (09:02)
[2022-06-18] MEDS: ARIPiprazole 15 MG TABLET PO (09:03)
[2022-06-18] MEDS: Atorvastatin Calcium 40 MG TABLET PO (09:03)
[2022-06-18] MEDS: predniSONE 20 MG TABLET 60 MG PO (09:03)
[2022-06-18] MEDS: Fenofibrate 160 MG TABLET PO (09:03)
[2022-06-18] MEDS: Gabapentin 600 MG TABLET PO ×3 (09:03→21:21)
[2022-06-18] MEDS: Sennosides 8.6 MG TABLET 17.2 MG PO (09:03)
[2022-06-18] MEDS: Empagliflozin 25 MG TABLET PO (09:03)
[2022-06-18] MEDS: Docusate Sodium 100 MG CAPSULE PO ×2 (09:03→21:22)
[2022-06-18] MEDS: Cholecalciferol (Vitamin D3) 25 MCG TABLET 50 MCG PO (09:03)
[2022-06-18] MEDS: Insulin Glargine,Hum.rec.anlog 100 UNIT/ML 10 ML VIAL 25 UNIT SUBCUT (09:11)
[2022-06-18] MEDS: Insulin Lispro 100 UNIT/ML 3 ML VIAL SUBCUT ×3 (09:12→18:14)
--- NOTE | 2022-06-18 14:08 | PC.NURSE ---
pt refused BREO, because of the taste and the way it feels in her mouth . Advair from pts own meds was prescribed.
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
[2022-06-18 18:00] VITALS: BP 119/56; PULSE 81; TEMP 36.7; O2SAT 95
[2022-06-18] MEDS: clonazePAM 0.5 MG TABLET PO (21:22)
[2022-06-18] MEDS: Latanoprost 0.005 % Ophth Sol 2.5 ML DROPS 1 DROP EYE-BOTH (21:22)
[2022-06-18] MEDS: Melatonin 3 MG TABLET 9 MG PO (21:25)
[2022-06-18 23:30] VITALS: O2SAT 97
--- NOTE | 2022-06-19 00:27 | PC.NURSE ---
pt was put on 2L of oxygen tonight for COPD during her sleeping.
[2022-06-19] MEDS: Omeprazole 20 MG CAPSULE.DR PO (05:08)
[2022-06-19] MEDS: Levothyroxine Sodium 25 MCG TABLET PO (05:10)
[2022-06-19 08:40] VITALS: BP 104/53; PULSE 71; RESP 18; TEMP 36.7; O2SAT 92
[2022-06-19] MEDS: Cholecalciferol (Vitamin D3) 25 MCG TABLET 50 MCG PO (08:51)
[2022-06-19] MEDS: Empagliflozin 25 MG TABLET PO (08:51)
[2022-06-19] MEDS: Nicotine 21 MG PATCH.TD24 TRANSDERMA (08:51)
[2022-06-19] MEDS: ARIPiprazole 15 MG TABLET PO (08:51)
[2022-06-19] MEDS: Cyanocobalamin (Vitamin B-12) 500 MCG TABLET PO (08:51)
[2022-06-19] MEDS: Docusate Sodium 100 MG CAPSULE PO ×2 (08:51→22:18)
[2022-06-19] MEDS: Fenofibrate 160 MG TABLET PO (08:51)
[2022-06-19] MEDS: Gabapentin 600 MG TABLET PO ×3 (08:51→22:17)
[2022-06-19] MEDS: Atorvastatin Calcium 40 MG TABLET PO (08:51)
[2022-06-19] MEDS: predniSONE 20 MG TABLET 60 MG PO (08:51)
[2022-06-19] MEDS: clonazePAM 0.5 MG TABLET PO ×2 (08:51→22:18)
[2022-06-19] MEDS: Sennosides 8.6 MG TABLET 17.2 MG PO (08:51)
[2022-06-19] MEDS: Insulin Lispro 100 UNIT/ML 3 ML VIAL SUBCUT ×4 (08:52→23:38)
[2022-06-19] MEDS: Insulin Glargine,Hum.rec.anlog 100 UNIT/ML 10 ML VIAL 25 UNIT SUBCUT (08:53)
--- NOTE | 2022-06-19 11:32 | HO.PSYCHPN ---
Subjective Subjective Date of Service: 06/19/22 Reason For Visit: SI Subjective Notes: Conditional Voluntary Healthcare Proxy: No Guardianship: No Interim History: Patient was seen and discussed in rounds today. She has been pleasant, attending no groups. She has been tearful and crying at times. No SI. She has been eating and sleeping adequately and is med compliant. No complaints or side effects. No changes were made today. Medication Compliance: Yes Side effects from medications: No Review of Systems Review of Systems Yes all other systems are reviewed and are negative Respiratory: Reports other (chronic bronchitis) Psychiatric: Reports anxiety, Reports depression and Reports suicidal ideation (denies) Mental Status Exam Mental Status Exam Patient Appearance: Appropriate Patient Orientation: Person, Place, Time and Situation Level of Consciousness: Alert Patient Behavior: Appropriate, Talkative, Cooperative and Good Eye Contact Mood Description: Anxious Affect Description: Anxious Patient Cognition Impaired: No Ability to Follow Directions: Good Speech Pattern: Appropriate Memory Description: Intact Hallucinations: None Delusions: Not Present Perceptual Disturbances: Depersonalization Thought Content: positive for Suicidal Ideation (denies) Abnormal Motor Activity Signs and Symptoms: Restlessness Judgement: Fair Diagnostics Vital Signs (24Hr): Vital Signs - 24 hr 06/18/22 18:00 06/18/22 23:30 06/19/22 08:40 Temperature 98.1 F 98.1 F Pulse Rate 81 71 Respiratory Rate 18 Blood Pressure 119/56 L 104/53 L Pulse Oximetry 95 97 92 Oxygen Delivery Method Room Air Nasal Cannula Room Air BMI result Body Mass Index 30.9 Labs Results: 06/16/22 20:28 06/16/22 20:28 Labs: Laboratory Results - last 48 hr 06/17/22 06/17/22 06/17/22 13:18 18:31 21:17 POC Glucose 273 H 294 H 211 H 06/18/22 06/18/22 06/18/22 08:51 11:46 18:01 POC Glucose 244 H 157 H 306 H 06/19/22 08:26 POC Glucose 310 H Imaging Radiology Impressions: ITS Impressions Chest X-Ray 06/16/22 20:45 IMPRESSION: Hyperinflated lungs with platelike atelectasis left lung base. Medications Medications Current Medications Acetaminophen (Acetaminophen 325 Mg Tablet) 650 mg PO Q6H PRN PRN Reason: Headache/Pain Mild Scale (1-3) Al Hydroxide/Mg Hydroxide (Magnesium Hydrox/Alum Hydrox 30 Ml Oral.Susp) 30 ml PO Q6H PRN PRN Reason: Heartburn/Nausea Aripiprazole (Aripiprazole 15 Mg Tablet) 15 mg PO DAILY [facility] Last Admin: 06/19/22 08:51 Dose: 15 mg Atorvastatin Calcium (Atorvastatin Calcium 40 Mg Tablet) 40 mg PO DAILY [facility] Last Admin: 06/19/22 08:51 Dose: 40 mg Benzonatate (Benzonatate 100 Mg Capsule) 100 mg PO TID PRN PRN Reason: cough Last Admin: 06/16/22 22:50 Dose: 100 mg Bisacodyl (Bisacodyl 5 Mg Tablet.Dr) 10 mg PO BEDTIME PRN PRN Reason: constipation Clonazepam (Clonazepam 0.5 Mg Tablet) 0.5 mg PO BID [facility] Last Admin: 06/19/22 08:51 Dose: 0.5 mg Cyanocobalamin (Cyanocobalamin (Vitamin B-12) 500 Mcg Tablet) 500 mcg PO DAILY [facility] Last Admin: 06/19/22 08:51 Dose: 500 mcg Docusate Sodium (Docusate Sodium 100 Mg Capsule) 100 mg PO BID [facility] Last Admin: 06/19/22 08:51 Dose: 100 mg Empagliflozin (Empagliflozin 25 Mg Tablet) 25 mg PO DAILY [facility] Last Admin: 06/19/22 08:51 Dose: 25 mg Fenofibrate (Fenofibrate 160 Mg Tablet) 160 mg PO DAILY [facility] Last Admin: 06/19/22 08:51 Dose: 160 mg Gabapentin (Gabapentin 600 Mg Tablet) 600 mg PO TID [facility] Last Admin: 06/19/22 08:51 Dose: 600 mg Hydroxyzine HCl (Hydroxyzine Hcl 25 Mg Tablet) 25 mg PO Q6H PRN PRN Reason: Anxiety Last Admin: 06/18/22 14:48 Dose: 25 mg Insulin Glargine (Insulin Glargine,Hum.Rec.Anlog 100 Unit/Ml 10 Ml Vial) 25 unit SUBCUT DAILY [facility] Last Admin: 06/19/22 08:53 Dose: 25 unit Insulin Human Lispro (Insulin Lispro 100 Unit/Ml 3 Ml Vial) 0 unit SUBCUT TIDAC [facility]; Protocol Last Admin: 06/19/22 08:52 Dose: 8 unit Latanoprost (Latanoprost 0.005 % Ophth Sade 2.5 Ml Drops) 1 drop EYE-BOTH BEDTIME [facility] Last Admin: 06/18/22 21:22 Dose: 1 drop Levothyroxine Sodium (Levothyroxine Sodium 25 Mcg Tablet) 25 mcg PO DAILY@0600 [facility] Last Admin: 06/19/22 05:10 Dose: 25 mcg Magnesium Hydroxide (Milk Of Magnesia 30 Ml Oral.Susp) 30 ml PO DAILY PRN PRN Reason: Constipation Melatonin (Melatonin 3 Mg Tablet) 9 mg PO BEDTIME PRN PRN Reason: Insomnia Last Admin: 06/18/22 21:25 Dose: 9 mg Nicotine (Nicotine 21 Mg Patch.Td24) 21 mg TRANSDERMA DAILY [facility] Last Admin: 06/19/22 08:51 Dose: 21 mg Nicotine Polacrilex (Nicotine Polacrilex 2 Mg Gum) 4 mg BUCCAL Q2H PRN PRN Reason: Nicotine Cravings Pt Own (Brimonidine [Alphagan P] 0.1 % Drops) 1 drop EYE-BOTH BID [facility] Last Admin: 06/19/22 09:28 Dose: 1 drop Non-Formulary Medication (Suvorexant [Belsomra]) 10 mg PO BEDTIME PRN PRN Reason: Insomnia Pt Own (Advair Hfa 2 (Inhalation)) 2 inhalation INHALE RBID [facility] Last Admin: 06/19/22 09:27 Dose: 2 inhalation Omeprazole (Omeprazole 20 Mg Capsule.Dr) 20 mg PO DAILY@0630 [facility] Last Admin: 06/19/22 05:08 Dose: 20 mg Pioglitazone HCl (Pioglitazone Hcl 15 Mg Tablet) 15 mg PO DAILY [facility] Last Admin: 06/19/22 08:51 Dose: 15 mg Prednisone (Prednisone 20 Mg Tablet) 60 mg PO DAILY [facility] Stop: 06/21/22 23:59 Last Admin: 06/19/22 08:51 Dose: 60 mg Senna (Sennosides 8.6 Mg Tablet) 17.2 mg PO DAILY [facility] Last Admin: 06/19/22 08:51 Dose: 17.2 mg Vitamin D (Cholecalciferol (Vitamin D3) 25 Mcg Tablet) 50 mcg PO DAILY [facility] Last Admin: 06/19/22 08:51 Dose: 50 mcg Allergies Allergies Allergy/AdvReac Type Severity Reaction Status Date / Time ziprasidone [From Geodon] Allergy Mild RASH-PALPIT Verified 06/03/22 10:44 ATIONS aspirin [ASPIRIN] Allergy Unknown GI bleed, Verified 06/03/22 10:44 stomach upset azithromycin Allergy Unknown facial Verified 06/03/22 10:44 swelling cephalexin [From KEFLEX] Allergy Unknown can't Verified 06/03/22 10:44 remember ibuprofen [IBUPROFEN] Allergy Unknown UNKNOWN, Verified 06/03/22 10:44 stomach upset lisinopril Allergy Unknown cough Verified 06/03/22 10:44 metformin [METFORMIN] Allergy Unknown NAUSEA & Verified 06/03/22 10:44 VOMITING, GI upset valsartan [From Diovan] Allergy Unknown hives Verified 06/03/22 10:44 NSAIDS (Non-Steroidal AdvReac Unknown HX OF GI Verified 06/03/22 10:44 Anti-Inflamma BLEED [NSAIDS (NON-STEROIDAL ANTI-INFLAMMA] tramadol [Ultram] AdvReac Unknown GI upset Verified 06/03/22 10:44 Assessment & Plan Assessment & Plan (1) Depression: Status: Acute Code(s): F32.9 - Major depressive disorder, single episode, unspecified Plan 71 yo female admitted for increase in depressive sx and not having her medicine supply for 5-6 weeks. Plan: Re-establish pre-existing regime and monitor. Collateral contacts Monitor medical issues, blood sugar for need for regime changes 06/19: Continue current regimen and plans Reason for contiued inpatient stay Substantial Risk for: med/psych decompensation Time Spent With Patient Time: Total time managing care of this patient today ____ minutes.
[2022-06-19] MEDS: hydrOXYzine HCL 25 MG TABLET PO (14:38)
[2022-06-19 16:45] VITALS: BP 120/57; PULSE 103; TEMP 36.4
[2022-06-19] MEDS: Acetaminophen 325 MG TABLET 650 MG PO (16:52)
[2022-06-19] MEDS: Melatonin 3 MG TABLET 9 MG PO (22:18)
[2022-06-19] MEDS: Latanoprost 0.005 % Ophth Sol 2.5 ML DROPS 1 DROP EYE-BOTH (22:24)
[2022-06-20] MEDS: hydrOXYzine HCL 25 MG TABLET PO ×2 (01:50→17:20)
[2022-06-20] MEDS: Milk of Magnesia 30 ML ORAL.SUSP PO (04:35)
[2022-06-20] MEDS: Omeprazole 20 MG CAPSULE.DR PO (04:35)
[2022-06-20] MEDS: Levothyroxine Sodium 25 MCG TABLET PO (04:35)
[2022-06-20 07:47] VITALS: BP 122/57; PULSE 85; RESP 18; TEMP 36.4; O2SAT 92
--- NOTE | 2022-06-20 07:49 | HO.PSYCHPN ---
Subjective Subjective Date of Service: 06/20/22 Reason For Visit: SI Subjective Notes: Conditional Voluntary Healthcare Proxy: No Guardianship: No Interim History: Patient was seen and discussed in rounds today. She has been doing well for the most part but continues to be anxious but was able to settle down yesterday. She still has some depression and sadness. She did have some crying spells yesterday. She is medication compliant. She states that she has not been sleeping well and still having interruptions every 1-2 hours and has a hard time going back to sleep. Trazodone has not worked for her in the past. I will continue the Belsomra for tonight but add Seroquel 50 mg q.h.s.. She was urged to be more cautious with her walking specially if it does work for her. She is using a walker. No other changes were made. If this proves to be helpful I may discontinue the Belsomra tomorrow. She also continues to be constipated and I will increase her Colace to 100 mg t.i.d. Medication Compliance: Yes Side effects from medications: No Review of Systems Review of Systems Constipation and sleep issues Yes all other systems are reviewed and are negative Respiratory: Reports other (chronic bronchitis) Psychiatric: Reports anxiety, Reports depression and Reports suicidal ideation (denies) Mental Status Exam Mental Status Exam Patient Appearance: Appropriate Patient Orientation: Person, Place, Time and Situation Level of Consciousness: Alert Patient Behavior: Appropriate, Talkative, Cooperative and Good Eye Contact Mood Description: Anxious Affect Description: Anxious Patient Cognition Impaired: No Ability to Follow Directions: Good Speech Pattern: Appropriate Memory Description: Intact Hallucinations: None Delusions: Not Present Perceptual Disturbances: Depersonalization Thought Content: positive for Suicidal Ideation (denies) Abnormal Motor Activity Signs and Symptoms: Restlessness Judgement: Fair Diagnostics Vital Signs (24Hr): Vital Signs - 24 hr 06/19/22 08:40 06/19/22 16:45 06/20/22 07:47 Temperature 98.1 F 97.6 F 97.6 F Pulse Rate 71 103 H 85 Respiratory Rate 18 18 Blood Pressure 104/53 L 120/57 L 122/57 L Pulse Oximetry 92 92 Oxygen Delivery Method Room Air Room Air BMI result Body Mass Index 30.9 Labs Results: 06/16/22 20:28 06/16/22 20:28 Labs: Laboratory Results - last 48 hr 12/23/22 12/23/22 12/23/22 08:51 11:46 18:01 POC Glucose 244 H 157 H 306 H 06/19/22 06/19/22 06/19/22 08:26 12:36 17:36 POC Glucose 310 H 166 H 376 H* 06/19/22 22:09 POC Glucose 402 H* Imaging Radiology Impressions: ITS Impressions Chest X-Ray 06/16/22 20:45 IMPRESSION: Hyperinflated lungs with platelike atelectasis left lung base. Medications Medications Current Medications Acetaminophen (Acetaminophen 325 Mg Tablet) 650 mg PO Q6H PRN PRN Reason: Headache/Pain Mild Scale (1-3) Last Admin: 06/19/22 16:52 Dose: 650 mg Al Hydroxide/Mg Hydroxide (Magnesium Hydrox/Alum Hydrox 30 Ml Oral.Susp) 30 ml PO Q6H PRN PRN Reason: Heartburn/Nausea Aripiprazole (Aripiprazole 15 Mg Tablet) 15 mg PO DAILY [facility] Last Admin: 06/19/22 08:51 Dose: 15 mg Atorvastatin Calcium (Atorvastatin Calcium 40 Mg Tablet) 40 mg PO DAILY [facility] Last Admin: 06/19/22 08:51 Dose: 40 mg Benzonatate (Benzonatate 100 Mg Capsule) 100 mg PO TID PRN PRN Reason: cough Last Admin: 06/16/22 22:50 Dose: 100 mg Bisacodyl (Bisacodyl 5 Mg Tablet.Dr) 10 mg PO BEDTIME PRN PRN Reason: constipation Clonazepam (Clonazepam 0.5 Mg Tablet) 0.5 mg PO BID [facility] Last Admin: 06/19/22 22:18 Dose: 0.5 mg Cyanocobalamin (Cyanocobalamin (Vitamin B-12) 500 Mcg Tablet) 500 mcg PO DAILY [facility] Last Admin: 06/19/22 08:51 Dose: 500 mcg Docusate Sodium (Docusate Sodium 100 Mg Capsule) 100 mg PO BID [facility] Last Admin: 06/19/22 22:18 Dose: 100 mg Empagliflozin (Empagliflozin 25 Mg Tablet) 25 mg PO DAILY [facility] Last Admin: 06/19/22 08:51 Dose: 25 mg Fenofibrate (Fenofibrate 160 Mg Tablet) 160 mg PO DAILY [facility] Last Admin: 06/19/22 08:51 Dose: 160 mg Gabapentin (Gabapentin 600 Mg Tablet) 600 mg PO TID [facility] Last Admin: 06/19/22 22:17 Dose: 600 mg Hydroxyzine HCl (Hydroxyzine Hcl 25 Mg Tablet) 25 mg PO Q6H PRN PRN Reason: Anxiety Last Admin: 06/20/22 01:50 Dose: 25 mg Insulin Glargine (Insulin Glargine,Hum.Rec.Anlog 100 Unit/Ml 10 Ml Vial) 25 unit SUBCUT DAILY [facility] Last Admin: 06/19/22 08:53 Dose: 25 unit Insulin Human Lispro (Insulin Lispro 100 Unit/Ml 3 Ml Vial) 0.1 - 10 unit SUBCUT QIDACHS [facility]; Protocol Last Admin: 06/19/22 23:38 Dose: 10 unit Latanoprost (Latanoprost 0.005 % Ophth Sade 2.5 Ml Drops) 1 drop EYE-BOTH BEDTIME [facility] Last Admin: 06/19/22 22:24 Dose: 1 drop Levothyroxine Sodium (Levothyroxine Sodium 25 Mcg Tablet) 25 mcg PO DAILY@0600 [facility] Last Admin: 06/20/22 04:35 Dose: 25 mcg Magnesium Hydroxide (Milk Of Magnesia 30 Ml Oral.Susp) 30 ml PO DAILY PRN PRN Reason: Constipation Last Admin: 06/20/22 04:35 Dose: 30 ml Melatonin (Melatonin 3 Mg Tablet) 9 mg PO BEDTIME PRN PRN Reason: Insomnia Last Admin: 06/19/22 22:18 Dose: 9 mg Nicotine (Nicotine 21 Mg Patch.Td24) 21 mg TRANSDERMA DAILY [facility] Last Admin: 06/19/22 08:51 Dose: 21 mg Nicotine Polacrilex (Nicotine Polacrilex 2 Mg Gum) 4 mg BUCCAL Q2H PRN PRN Reason: Nicotine Cravings Pt Own (Brimonidine [Alphagan P] 0.1 % Drops) 1 drop EYE-BOTH BID [facility] Last Admin: 06/19/22 22:21 Dose: 1 drop Non-Formulary Medication (Suvorexant [Belsomra]) 10 mg PO BEDTIME PRN PRN Reason: Insomnia Pt Own (Advair Hfa 2 (Inhalation)) 2 inhalation INHALE RBID [facility] Last Admin: 06/19/22 22:23 Dose: 2 inhalation Omeprazole (Omeprazole 20 Mg Capsule.Dr) 20 mg PO DAILY@0630 [facility] Last Admin: 06/20/22 04:35 Dose: 20 mg Pioglitazone HCl (Pioglitazone Hcl 15 Mg Tablet) 15 mg PO BEDTIME [facility] Last Admin: 06/19/22 22:29 Dose: Not Given Prednisone (Prednisone 20 Mg Tablet) 60 mg PO DAILY [facility] Stop: 06/21/22 23:59 Last Admin: 06/19/22 08:51 Dose: 60 mg Senna (Sennosides 8.6 Mg Tablet) 17.2 mg PO DAILY [facility] Last Admin: 06/19/22 08:51 Dose: 17.2 mg Vitamin D (Cholecalciferol (Vitamin D3) 25 Mcg Tablet) 50 mcg PO DAILY [facility] Last Admin: 06/19/22 08:51 Dose: 50 mcg Allergies Allergies Allergy/AdvReac Type Severity Reaction Status Date / Time ziprasidone [From Geodon] Allergy Mild RASH-PALPIT Verified 06/03/22 10:44 ATIONS aspirin [ASPIRIN] Allergy Unknown GI bleed, Verified 06/03/22 10:44 stomach upset azithromycin Allergy Unknown facial Verified 06/03/22 10:44 swelling cephalexin [From KEFLEX] Allergy Unknown can't Verified 06/03/22 10:44 remember ibuprofen [IBUPROFEN] Allergy Unknown UNKNOWN, Verified 06/03/22 10:44 stomach upset lisinopril Allergy Unknown cough Verified 06/03/22 10:44 metformin [METFORMIN] Allergy Unknown NAUSEA & Verified 06/03/22 10:44 VOMITING, GI upset valsartan [From Diovan] Allergy Unknown hives Verified 06/03/22 10:44 NSAIDS (Non-Steroidal AdvReac Unknown HX OF GI Verified 06/03/22 10:44 Anti-Inflamma BLEED [NSAIDS (NON-STEROIDAL ANTI-INFLAMMA] tramadol [Ultram] AdvReac Unknown GI upset Verified 06/03/22 10:44 Assessment & Plan Assessment & Plan (1) Depression: Status: Acute Code(s): F32.9 - Major depressive disorder, single episode, unspecified Plan 71 yo female admitted for increase in depressive sx and not having her medicine supply for 5-6 weeks. Plan: Re-establish pre-existing regime and monitor. Collateral contacts Monitor medical issues, blood sugar for need for regime changes 06/19: Continue current regimen and plans 06/20: Continue current regimen and plans. Add Seroquel 50 mg for sleep, increase Colace 100 mg t.i.d. Patient educated on: medication risk/benefits Reason for contiued inpatient stay Substantial Risk for: med/psych decompensation Time Spent With Patient Time: Total time managing care of this patient today ____ minutes.
[2022-06-20] MEDS: Atorvastatin Calcium 40 MG TABLET PO (08:39)
[2022-06-20] MEDS: Empagliflozin 25 MG TABLET PO (08:39)
[2022-06-20] MEDS: Sennosides 8.6 MG TABLET 17.2 MG PO (08:39)
[2022-06-20] MEDS: Cholecalciferol (Vitamin D3) 25 MCG TABLET 50 MCG PO (08:39)
[2022-06-20] MEDS: clonazePAM 0.5 MG TABLET PO ×2 (08:39→22:39)
[2022-06-20] MEDS: ARIPiprazole 15 MG TABLET PO (08:39)
[2022-06-20] MEDS: Fenofibrate 160 MG TABLET PO (08:39)
[2022-06-20] MEDS: predniSONE 20 MG TABLET 60 MG PO (08:39)
[2022-06-20] MEDS: Gabapentin 600 MG TABLET PO ×3 (08:40→22:40)
[2022-06-20] MEDS: Insulin Lispro 100 UNIT/ML 3 ML VIAL SUBCUT ×4 (08:41→22:40)
[2022-06-20] MEDS: Insulin Glargine,Hum.rec.anlog 100 UNIT/ML 10 ML VIAL 25 UNIT SUBCUT (08:41)
[2022-06-20] MEDS: Cyanocobalamin (Vitamin B-12) 500 MCG TABLET PO (09:35)
[2022-06-20] MEDS: Docusate Sodium 100 MG CAPSULE PO ×3 (09:36→22:39)
[2022-06-20 15:50] VITALS: BP 131/58; PULSE 92; TEMP 35.7; O2SAT 92
[2022-06-20] MEDS: Acetaminophen 325 MG TABLET 650 MG PO (16:48)
[2022-06-20] MEDS: Benzonatate 100 MG CAPSULE PO (22:39)
[2022-06-20] MEDS: Latanoprost 0.005 % Ophth Sol 2.5 ML DROPS 1 DROP EYE-BOTH (22:44)
[2022-06-20] MEDS: bisacodyL 5 MG TABLET.DR 10 MG PO (23:48)
[2022-06-21] MEDS: Melatonin 3 MG TABLET 9 MG PO (03:50)
[2022-06-21] MEDS: hydrOXYzine HCL 25 MG TABLET PO ×2 (03:51→14:20)
[2022-06-21] MEDS: Levothyroxine Sodium 25 MCG TABLET PO (05:53)
[2022-06-21] MEDS: Omeprazole 20 MG CAPSULE.DR PO (05:53)
[2022-06-21 06:00] VITALS: BP 104/58; PULSE 88; RESP 16; TEMP 36.8; O2SAT 95
[2022-06-21] MEDS: Cholecalciferol (Vitamin D3) 25 MCG TABLET 50 MCG PO (08:25)
[2022-06-21] MEDS: Sennosides 8.6 MG TABLET 17.2 MG PO (08:25)
[2022-06-21] MEDS: predniSONE 20 MG TABLET 60 MG PO (08:26)
[2022-06-21] MEDS: Fenofibrate 160 MG TABLET PO (08:26)
[2022-06-21] MEDS: Empagliflozin 25 MG TABLET PO (08:26)
[2022-06-21] MEDS: Insulin Lispro 100 UNIT/ML 3 ML VIAL SUBCUT ×4 (08:26→20:19)
[2022-06-21] MEDS: clonazePAM 0.5 MG TABLET PO ×2 (08:26→20:08)
[2022-06-21] MEDS: Gabapentin 600 MG TABLET PO ×3 (08:26→20:08)
[2022-06-21] MEDS: Cyanocobalamin (Vitamin B-12) 500 MCG TABLET PO (08:26)
[2022-06-21] MEDS: Docusate Sodium 100 MG CAPSULE PO ×3 (08:26→20:08)
[2022-06-21] MEDS: Atorvastatin Calcium 40 MG TABLET PO (08:26)
[2022-06-21] MEDS: ARIPiprazole 15 MG TABLET PO (08:26)
[2022-06-21] MEDS: Insulin Glargine,Hum.rec.anlog 100 UNIT/ML 10 ML VIAL 25 UNIT SUBCUT (08:27)
--- NOTE | 2022-06-21 10:02 | HO.PSYCHPN ---
Subjective Subjective Date of Service: 06/21/22 Reason For Visit: SI Subjective Notes: Conditional Voluntary Healthcare Proxy: No Guardianship: No Interim History: Patient was seen and discussed in rounds today. She states that the Seroquel may have been helpful last night with her sleep however her room was so cold that she had a hard time falling sleep but would like to leave it as is for now. No complaints or side effects. Her affect appears to be improved and appears to be more pleasant. No side effects. No SI. No changes were made today Medication Compliance: Yes Side effects from medications: No Review of Systems Review of Systems Constipation and sleep issues Yes all other systems are reviewed and are negative Respiratory: Reports other (chronic bronchitis) Psychiatric: Reports anxiety, Reports depression and Reports suicidal ideation (denies) Mental Status Exam Mental Status Exam Narrative: In today's visit she is alert, oriented and pleasant. Normal speech. Good eye contact. Affect is appropriate and varied. No SI. Cognitively intact. Judgment is intact Diagnostics Vital Signs (24Hr): Vital Signs - 24 hr 06/20/22 15:50 06/21/22 06:00 Temperature 96.3 F L 98.2 F Pulse Rate 92 88 Respiratory Rate 16 Blood Pressure 131/58 L 104/58 L Pulse Oximetry 92 95 Oxygen Delivery Method Room Air Room Air BMI result Body Mass Index 30.9 Labs Results: 06/16/22 20:28 06/16/22 20:28 Labs: Laboratory Results - last 48 hr 06/19/22 06/19/22 06/19/22 12:36 17:36 22:09 POC Glucose 166 H 376 H* 402 H* 06/20/22 06/20/22 06/20/22 07:50 13:02 17:22 POC Glucose 331 H 362 H* 365 H* 06/20/22 06/21/22 22:10 07:50 POC Glucose 373 H* 243 H Imaging Radiology Impressions: ITS Impressions Chest X-Ray 06/16/22 20:45 IMPRESSION: Hyperinflated lungs with platelike atelectasis left lung base. Medications Medications Current Medications Acetaminophen (Acetaminophen 325 Mg Tablet) 650 mg PO Q6H PRN PRN Reason: Headache/Pain Mild Scale (1-3) Last Admin: 06/20/22 16:48 Dose: 650 mg Al Hydroxide/Mg Hydroxide (Magnesium Hydrox/Alum Hydrox 30 Ml Oral.Susp) 30 ml PO Q6H PRN PRN Reason: Heartburn/Nausea Aripiprazole (Aripiprazole 15 Mg Tablet) 15 mg PO DAILY [facility] Last Admin: 06/21/22 08:26 Dose: 15 mg Atorvastatin Calcium (Atorvastatin Calcium 40 Mg Tablet) 40 mg PO DAILY [facility] Last Admin: 06/21/22 08:26 Dose: 40 mg Benzonatate (Benzonatate 100 Mg Capsule) 100 mg PO TID PRN PRN Reason: cough Last Admin: 06/20/22 22:39 Dose: 100 mg Bisacodyl (Bisacodyl 5 Mg Tablet.Dr) 10 mg PO BEDTIME PRN PRN Reason: constipation Last Admin: 06/20/22 23:48 Dose: 5 mg Clonazepam (Clonazepam 0.5 Mg Tablet) 0.5 mg PO BID [facility] Last Admin: 06/21/22 08:26 Dose: 0.5 mg Cyanocobalamin (Cyanocobalamin (Vitamin B-12) 500 Mcg Tablet) 500 mcg PO DAILY [facility] Last Admin: 06/21/22 08:26 Dose: 500 mcg Docusate Sodium (Docusate Sodium 100 Mg Capsule) 100 mg PO TID [facility] Last Admin: 06/21/22 08:26 Dose: 100 mg Empagliflozin (Empagliflozin 25 Mg Tablet) 25 mg PO DAILY [facility] Last Admin: 06/21/22 08:26 Dose: 25 mg Fenofibrate (Fenofibrate 160 Mg Tablet) 160 mg PO DAILY [facility] Last Admin: 06/21/22 08:26 Dose: 160 mg Gabapentin (Gabapentin 600 Mg Tablet) 600 mg PO TID [facility] Last Admin: 06/21/22 08:26 Dose: 600 mg Hydroxyzine HCl (Hydroxyzine Hcl 25 Mg Tablet) 25 mg PO Q6H PRN PRN Reason: Anxiety Last Admin: 06/21/22 03:51 Dose: 25 mg Insulin Glargine (Insulin Glargine,Hum.Rec.Anlog 100 Unit/Ml 10 Ml Vial) 25 unit SUBCUT DAILY [facility] Last Admin: 06/21/22 08:27 Dose: 25 unit Insulin Human Lispro (Insulin Lispro 100 Unit/Ml 3 Ml Vial) 0.1 - 10 unit SUBCUT QIDACHS [facility]; Protocol Last Admin: 06/21/22 08:26 Dose: 4 unit Latanoprost (Latanoprost 0.005 % Ophth Sade 2.5 Ml Drops) 1 drop EYE-BOTH BEDTIME [facility] Last Admin: 06/20/22 22:44 Dose: 1 drop Levothyroxine Sodium (Levothyroxine Sodium 25 Mcg Tablet) 25 mcg PO DAILY@0600 [facility] Last Admin: 06/21/22 05:53 Dose: 25 mcg Magnesium Hydroxide (Milk Of Magnesia 30 Ml Oral.Susp) 30 ml PO DAILY PRN PRN Reason: Constipation Last Admin: 06/20/22 04:35 Dose: 30 ml Melatonin (Melatonin 3 Mg Tablet) 9 mg PO BEDTIME PRN PRN Reason: Insomnia Last Admin: 06/21/22 03:50 Dose: 9 mg Nicotine (Nicotine 21 Mg Patch.Td24) 21 mg TRANSDERMA DAILY [facility] Last Admin: 06/21/22 08:30 Dose: Not Given Nicotine Polacrilex (Nicotine Polacrilex 2 Mg Gum) 4 mg BUCCAL Q2H PRN PRN Reason: Nicotine Cravings Pt Own (Brimonidine [Alphagan P] 0.1 % Drops) 1 drop EYE-BOTH BID [facility] Last Admin: 06/21/22 09:47 Dose: 1 drop Pt Own (Advair Hfa 2 (Inhalation)) 2 inhalation INHALE RBID [facility] Last Admin: 06/21/22 08:38 Dose: 2 inhalation Omeprazole (Omeprazole 20 Mg Capsule.Dr) 20 mg PO DAILY@0630 [facility] Last Admin: 06/21/22 05:53 Dose: 20 mg Pioglitazone HCl (Pioglitazone Hcl 15 Mg Tablet) 15 mg PO DAILY@1700 [facility] Last Admin: 06/20/22 17:48 Dose: 15 mg Prednisone (Prednisone 20 Mg Tablet) 60 mg PO DAILY [facility] Stop: 06/21/22 23:59 Last Admin: 06/21/22 08:26 Dose: 60 mg Quetiapine Fumarate (Quetiapine Fumarate 50 Mg Tablet) 50 mg PO BEDTIME [facility] Last Admin: 06/20/22 22:39 Dose: 50 mg Senna (Sennosides 8.6 Mg Tablet) 17.2 mg PO DAILY [facility] Last Admin: 06/21/22 08:25 Dose: 17.2 mg Vitamin D (Cholecalciferol (Vitamin D3) 25 Mcg Tablet) 50 mcg PO DAILY [facility] Last Admin: 06/21/22 08:25 Dose: 50 mcg Allergies Allergies Allergy/AdvReac Type Severity Reaction Status Date / Time ziprasidone [From Geodon] Allergy Mild RASH-PALPIT Verified 06/03/22 10:44 ATIONS aspirin [ASPIRIN] Allergy Unknown GI bleed, Verified 06/03/22 10:44 stomach upset azithromycin Allergy Unknown facial Verified 06/03/22 10:44 swelling cephalexin [From KEFLEX] Allergy Unknown can't Verified 06/03/22 10:44 remember ibuprofen [IBUPROFEN] Allergy Unknown UNKNOWN, Verified 06/03/22 10:44 stomach upset lisinopril Allergy Unknown cough Verified 06/03/22 10:44 metformin [METFORMIN] Allergy Unknown NAUSEA & Verified 06/03/22 10:44 VOMITING, GI upset valsartan [From Diovan] Allergy Unknown hives Verified 06/03/22 10:44 NSAIDS (Non-Steroidal AdvReac Unknown HX OF GI Verified 06/03/22 10:44 Anti-Inflamma BLEED [NSAIDS (NON-STEROIDAL ANTI-INFLAMMA] tramadol [Ultram] AdvReac Unknown GI upset Verified 06/03/22 10:44 Assessment & Plan Assessment & Plan (1) Depression: Status: Acute Code(s): F32.9 - Major depressive disorder, single episode, unspecified Plan 71 yo female admitted for increase in depressive sx and not having her medicine supply for 5-6 weeks. Plan: Re-establish pre-existing regime and monitor. Collateral contacts Monitor medical issues, blood sugar for need for regime changes 06/19: Continue current regimen and plans 06/20: Continue current regimen and plans. Add Seroquel 50 mg for sleep, increase Colace 100 mg t.i.d. 06/21: Continue current regimen and plans Reason for contiued inpatient stay Substantial Risk for: med/psych decompensation Time Spent With Patient Time: Total time managing care of this patient today ____ minutes.
[2022-06-21] MEDS: Acetaminophen 325 MG TABLET 650 MG PO (13:38)
[2022-06-21 18:00] VITALS: BP 127/60; PULSE 97; RESP 18; O2SAT 94
[2022-06-21] MEDS: Latanoprost 0.005 % Ophth Sol 2.5 ML DROPS 1 DROP EYE-BOTH (20:07)
[2022-06-22] MEDS: Levothyroxine Sodium 25 MCG TABLET PO (06:25)
[2022-06-22] MEDS: Omeprazole 20 MG CAPSULE.DR PO (06:25)
[2022-06-22 07:50] LABS: Glucose, Whole Blood 224 mg/dL (60-115)
[2022-06-22] MEDS: Sennosides 8.6 MG TABLET 17.2 MG PO (08:33)
[2022-06-22] MEDS: Gabapentin 600 MG TABLET PO ×3 (08:33→19:45)
[2022-06-22] MEDS: Cholecalciferol (Vitamin D3) 25 MCG TABLET 50 MCG PO (08:34)
[2022-06-22] MEDS: Cyanocobalamin (Vitamin B-12) 500 MCG TABLET PO (08:34)
[2022-06-22] MEDS: Fenofibrate 160 MG TABLET PO (08:35)
[2022-06-22] MEDS: Atorvastatin Calcium 40 MG TABLET PO (08:35)
[2022-06-22] MEDS: Docusate Sodium 100 MG CAPSULE PO ×3 (08:35→19:45)
[2022-06-22] MEDS: Empagliflozin 25 MG TABLET PO (08:36)
[2022-06-22] MEDS: ARIPiprazole 15 MG TABLET PO (08:36)
[2022-06-22] MEDS: clonazePAM 0.5 MG TABLET PO ×2 (08:36→19:44)
[2022-06-22] MEDS: Insulin Glargine,Hum.rec.anlog 100 UNIT/ML 10 ML VIAL 25 UNIT SUBCUT (08:37)
[2022-06-22] MEDS: Insulin Lispro 100 UNIT/ML 3 ML VIAL SUBCUT ×4 (08:37→21:05)
[2022-06-22 08:44] VITALS: BP 103/51; PULSE 95; RESP 18; TEMP 35.7; O2SAT 93
[2022-06-22 12:06] LABS: Glucose, Whole Blood 285 mg/dL (60-115)
--- NOTE | 2022-06-22 12:39 | P.PNPSI_ITS ---
Subjective Subjective Date of Service: 06/22/22 Reason For Visit: SI Subjective Notes: Conditional Voluntary Healthcare Proxy: No Guardianship: No Medical Problems Affecting Mental Status: No Interim History: Expressed frustration with needing to be hospitalized due to out patient provider not filling her medications. Reports poor sleep-improved with Seroquel 50 mg given on the weekend. Discussed increase to 75 mg and she agrees. Also reports intermittent calve cramping. Discussed her niece calling her from [place] over the weekend to extend holiday greetings and described how their relation ship has developed over the years. Discussed how much this relationship means to her. Medication Compliance: Yes Side effects from medications: No Attending Groups: Yes Review of Systems Acute medical concerns: No Medical Review of Systems: unchanged Mental Status Exam Mental Status Exam Patient Appearance: Appropriate Patient Orientation: Person, Place, Time and Situation Level of Consciousness: Alert Patient Behavior: Talkative and Good Eye Contact Mood Description: Anxious and Apprehensive Affect Description: Anxious and Apprehensive Patient Cognition Impaired: No Ability to Follow Directions: Good Speech Pattern: Spontaneous Speech Memory Description: Intact Hallucinations: None Delusions: Not Present Thought Process: Intact Thought Content: positive for Intact Depressive Symptoms: Increased Anxiety Judgement: Good Diagnostics Vital Signs (24Hr): Vital Signs - 24 hr 06/21/22 18:00 06/22/22 08:44 Temperature 96.2 F L Pulse Rate 97 95 Respiratory Rate 18 18 Blood Pressure 127/60 103/51 L Pulse Oximetry 94 93 Oxygen Delivery Method Room Air Room Air BMI result Body Mass Index 30.9 Labs Results: 06/16/22 20:28 06/16/22 20:28 Labs: Laboratory Results - last 48 hr 06/20/22 06/20/22 06/20/22 13:02 17:22 22:10 POC Glucose 362 H* 365 H* 373 H* 06/21/22 06/21/22 06/21/22 07:50 11:51 17:14 POC Glucose 243 H 258 H 422 H* 06/21/22 06/22/22 06/22/22 20:14 07:46 12:02 POC Glucose 346 H 224 H 285 H Imaging Radiology Impressions: ITS Impressions Chest X-Ray 06/16/22 20:45 IMPRESSION: Hyperinflated lungs with platelike atelectasis left lung base. Medications Medications Current Medications Acetaminophen (Acetaminophen 325 Mg Tablet) 650 mg PO Q6H PRN PRN Reason: Headache/Pain Mild Scale (1-3) Last Admin: 06/21/22 13:38 Dose: 650 mg Al Hydroxide/Mg Hydroxide (Magnesium Hydrox/Alum Hydrox 30 Ml Oral.Susp) 30 ml PO Q6H PRN PRN Reason: Heartburn/Nausea Aripiprazole (Aripiprazole 15 Mg Tablet) 15 mg PO DAILY [facility] Last Admin: 06/22/22 08:36 Dose: 15 mg Atorvastatin Calcium (Atorvastatin Calcium 40 Mg Tablet) 40 mg PO DAILY [facility] Last Admin: 06/22/22 08:35 Dose: 40 mg Benzonatate (Benzonatate 100 Mg Capsule) 100 mg PO TID PRN PRN Reason: cough Last Admin: 06/20/22 22:39 Dose: 100 mg Bisacodyl (Bisacodyl 5 Mg Tablet.Dr) 10 mg PO BEDTIME PRN PRN Reason: constipation Last Admin: 06/20/22 23:48 Dose: 5 mg Clonazepam (Clonazepam 0.5 Mg Tablet) 0.5 mg PO BID [facility] Last Admin: 06/22/22 08:36 Dose: 0.5 mg Cyanocobalamin (Cyanocobalamin (Vitamin B-12) 500 Mcg Tablet) 500 mcg PO DAILY [facility] Last Admin: 06/22/22 08:34 Dose: 500 mcg Docusate Sodium (Docusate Sodium 100 Mg Capsule) 100 mg PO TID [facility] Last Admin: 06/22/22 08:35 Dose: 100 mg Empagliflozin (Empagliflozin 25 Mg Tablet) 25 mg PO DAILY [facility] Last Admin: 06/22/22 08:36 Dose: 25 mg Fenofibrate (Fenofibrate 160 Mg Tablet) 160 mg PO DAILY [facility] Last Admin: 06/22/22 08:35 Dose: 160 mg Gabapentin (Gabapentin 600 Mg Tablet) 600 mg PO TID [facility] Last Admin: 06/22/22 08:33 Dose: 600 mg Hydroxyzine HCl (Hydroxyzine Hcl 25 Mg Tablet) 25 mg PO Q6H PRN PRN Reason: Anxiety Last Admin: 06/21/22 14:20 Dose: 25 mg Insulin Glargine (Insulin Glargine,Hum.Rec.Anlog 100 Unit/Ml 10 Ml Vial) 25 unit SUBCUT DAILY [facility] Last Admin: 06/22/22 08:37 Dose: 25 unit Insulin Human Lispro (Insulin Lispro 100 Unit/Ml 3 Ml Vial) 0.1 - 10 unit SUBCUT QIDACHS [facility]; Protocol Last Admin: 06/22/22 12:10 Dose: 6 unit Latanoprost (Latanoprost 0.005 % Ophth Sade 2.5 Ml Drops) 1 drop EYE-BOTH BEDTIME [facility] Last Admin: 06/21/22 20:07 Dose: 1 drop Levothyroxine Sodium (Levothyroxine Sodium 25 Mcg Tablet) 25 mcg PO DAILY@0600 [facility] Last Admin: 06/22/22 06:25 Dose: 25 mcg Magnesium Hydroxide (Milk Of Magnesia 30 Ml Oral.Susp) 30 ml PO DAILY PRN PRN Reason: Constipation Last Admin: 06/20/22 04:35 Dose: 30 ml Melatonin (Melatonin 3 Mg Tablet) 9 mg PO BEDTIME PRN PRN Reason: Insomnia Last Admin: 06/21/22 03:50 Dose: 9 mg Nicotine (Nicotine 21 Mg Patch.Td24) 21 mg TRANSDERMA DAILY [facility] Last Admin: 06/22/22 08:50 Dose: Not Given Nicotine Polacrilex (Nicotine Polacrilex 2 Mg Gum) 4 mg BUCCAL Q2H PRN PRN Reason: Nicotine Cravings Pt Own (Brimonidine [Alphagan P] 0.1 % Drops) 1 drop EYE-BOTH BID [facility] Last Admin: 06/22/22 08:48 Dose: 1 drop Pt Own (Advair Hfa 2 (Inhalation)) 2 inhalation INHALE RBID [facility] Last Admin: 06/22/22 08:47 Dose: 2 inhalation Omeprazole (Omeprazole 20 Mg Capsule.Dr) 20 mg PO DAILY@0630 [facility] Last Admin: 06/22/22 06:25 Dose: 20 mg Pioglitazone HCl (Pioglitazone Hcl 15 Mg Tablet) 15 mg PO DAILY@1700 [facility] Last Admin: 06/20/22 17:48 Dose: 15 mg Quetiapine Fumarate (Quetiapine Fumarate 50 Mg Tablet) 50 mg PO BEDTIME [facility] Last Admin: 06/21/22 20:08 Dose: 50 mg Senna (Sennosides 8.6 Mg Tablet) 17.2 mg PO DAILY [facility] Last Admin: 06/22/22 08:33 Dose: 17.2 mg Vitamin D (Cholecalciferol (Vitamin D3) 25 Mcg Tablet) 50 mcg PO DAILY [facility] Last Admin: 06/22/22 08:34 Dose: 50 mcg Allergies Allergies Allergy/AdvReac Type Severity Reaction Status Date / Time ziprasidone [From Geodon] Allergy Mild RASH-PALPIT Verified 06/03/22 10:44 ATIONS aspirin [ASPIRIN] Allergy Unknown GI bleed, Verified 06/03/22 10:44 stomach upset azithromycin Allergy Unknown facial Verified 06/03/22 10:44 swelling cephalexin [From KEFLEX] Allergy Unknown can't Verified 06/03/22 10:44 remember ibuprofen [IBUPROFEN] Allergy Unknown UNKNOWN, Verified 06/03/22 10:44 stomach upset lisinopril Allergy Unknown cough Verified 06/03/22 10:44 metformin [METFORMIN] Allergy Unknown NAUSEA & Verified 06/03/22 10:44 VOMITING, GI upset valsartan [From Diovan] Allergy Unknown hives Verified 06/03/22 10:44 NSAIDS (Non-Steroidal AdvReac Unknown HX OF GI Verified 06/03/22 10:44 Anti-Inflamma BLEED [NSAIDS (NON-STEROIDAL ANTI-INFLAMMA] tramadol [Ultram] AdvReac Unknown GI upset Verified 06/03/22 10:44 Assessment & Plan Assessment & Plan (1) Depression: Status: Acute Code(s): F32.9 - Major depressive disorder, single episode, unspecified Plan 71 yo female admitted for increase in depressive sx and not having her medicine supply for 5-6 weeks. Plan: Re-establish pre-existing regime and monitor. Collateral contacts Monitor medical issues, blood sugar for need for regime changes 06/19: Continue current regimen and plans 06/20: Continue current regimen and plans. Add Seroquel 50 mg for sleep, increase Colace 100 mg t.i.d. 06/21: Continue current regimen and plans 06/22/22: Increase Seroquel to 75 mg hs BMP on 06/23/22 Patient educated on: medication risk/benefits and therapeutic strategies Informed Consent: understands and further education needed Reason for contiued inpatient stay Substantial Risk for: med/psych decompensation Time Spent With Patient Time: Total time managing care of this patient today _35___ minutes.
[2022-06-22] MEDS: hydrOXYzine HCL 25 MG TABLET PO (15:09)
[2022-06-22 16:37] LABS: Glucose, Whole Blood 234 mg/dL (60-115)
[2022-06-22 18:00] VITALS: BP 121/54; PULSE 78; RESP 16; TEMP 36.1; O2SAT 96
[2022-06-22] MEDS: QUEtiapine Fumarate 25 MG TABLET 75 MG PO (19:44)
[2022-06-22] MEDS: Latanoprost 0.005 % Ophth Sol 2.5 ML DROPS 1 DROP EYE-BOTH (19:50)
[2022-06-22 20:58] LABS: Glucose, Whole Blood 282 mg/dL (60-115)
[2022-06-22] MEDS: Melatonin 3 MG TABLET 9 MG PO (23:51)
[2022-06-23] MEDS: Acetaminophen 325 MG TABLET 650 MG PO (04:06)
[2022-06-23 06:00] VITALS: BP 120/56; PULSE 92; RESP 18
[2022-06-23] MEDS: Omeprazole 20 MG CAPSULE.DR PO (06:29)
[2022-06-23] MEDS: Levothyroxine Sodium 25 MCG TABLET PO (06:29)
[2022-06-23 08:05] LABS: Anion Gap 13 (12-20); Blood Urea Nitrogen 19 mg/dL (9-16); Calcium 9.9 mg/dL (8.4-10.2); Carbon Dioxide 30 mmol/L (22-29); Chloride 98 mmol/L (96-108); Creatinine Clr Calc Pharmacy 65.9; Estimated Glomerular Filt Rate > 60; Glucose Random 186 mg/dL (60-115); Potassium 4.4 mmol/L (3.3-5.1); Sodium 137 mmol/L (135-145)
[2022-06-23 08:44] LABS: Glucose, Whole Blood 189 mg/dL (60-115)
[2022-06-23] MEDS: Insulin Glargine,Hum.rec.anlog 100 UNIT/ML 10 ML VIAL 25 UNIT SUBCUT (08:49)
[2022-06-23] MEDS: Gabapentin 600 MG TABLET PO ×3 (08:50→21:44)
[2022-06-23] MEDS: ARIPiprazole 15 MG TABLET PO (08:50)
[2022-06-23] MEDS: Insulin Lispro 100 UNIT/ML 3 ML VIAL SUBCUT ×4 (08:50→21:43)
[2022-06-23] MEDS: Cholecalciferol (Vitamin D3) 25 MCG TABLET 50 MCG PO (08:50)
[2022-06-23] MEDS: Sennosides 8.6 MG TABLET 17.2 MG PO (08:50)
[2022-06-23] MEDS: Cyanocobalamin (Vitamin B-12) 500 MCG TABLET PO (08:50)
[2022-06-23] MEDS: clonazePAM 0.5 MG TABLET PO ×2 (08:50→21:44)
[2022-06-23] MEDS: Atorvastatin Calcium 40 MG TABLET PO (08:51)
[2022-06-23] MEDS: Docusate Sodium 100 MG CAPSULE PO ×3 (08:51→21:44)
[2022-06-23] MEDS: Fenofibrate 160 MG TABLET PO (08:51)
[2022-06-23] MEDS: Empagliflozin 25 MG TABLET PO (08:51)
[2022-06-23] MEDS: hydrOXYzine HCL 25 MG TABLET PO (11:51)
[2022-06-23 12:31] LABS: Glucose, Whole Blood 176 mg/dL (60-115)
[2022-06-23 13:13] LABS: COVID-19 Test Positive (Negative)
[2022-06-23] MEDS: LORazepam 1 MG TABLET PO (14:44)
[2022-06-23 15:06] LABS: COVID-19 Test Positive (Negative); IDNOW Serial# BCCEAD1C
[2022-06-23 16:46] LABS: Glucose, Whole Blood 238 mg/dL (60-115)
--- NOTE | 2022-06-23 17:26 | P.PNPSI_ITS ---
Subjective Subjective Date of Service: 06/23/22 Reason For Visit: SI Subjective Notes: Conditional Voluntary and 3 Day Healthcare Proxy: No Guardianship: No Medical Problems Affecting Mental Status: No Interim History: Pt tested COVID +. Denies sx. Asked to be tested twice, I don't believe I have it-you just want me to stay Second test was positive as well. Very angry and demanding to leave. Discussed that her home care was not yet ready, via no fault of her own. Medication carrier, [employer], cannot be located and has not delivered medicine in several weeks. Team is in process of setting up other services. Labile, expressive. Medication Compliance: Yes Side effects from medications: No Attending Groups: No Review of Systems Acute medical concerns: No Medical Review of Systems: unchanged Mental Status Exam Mental Status Exam Patient Appearance: Appropriate Patient Orientation: Person, Place, Time and Situation Level of Consciousness: Alert Patient Behavior: Talkative, Anxious, Distractible and Good Eye Contact Mood Description: Hostile, Anxious, Labile, Angry and Apprehensive Affect Description: Hostile, Anxious, Labile, Angry and Apprehensive Patient Cognition Impaired: No Ability to Follow Directions: Good Speech Pattern: Spontaneous Speech Memory Description: Intact Hallucinations: None Delusions: Not Present Perceptual Disturbances: Derealization Thought Process: Intact Thought Content: positive for Intact Depressive Symptoms: Increased Anxiety, Increased Irritability and Crying Spells Judgement: Fair Diagnostics Vital Signs (24Hr): Vital Signs - 24 hr 06/22/22 18:00 06/23/22 06:00 Temperature 96.9 F Pulse Rate 78 92 Respiratory Rate 16 18 Blood Pressure 121/54 L 120/56 L Pulse Oximetry 96 Oxygen Delivery Method Room Air BMI result Body Mass Index 30.9 Labs Results: 06/16/22 20:28 06/23/22 07:28 Labs: Laboratory Results - last 48 hr 06/21/22 06/22/22 06/22/22 20:14 07:46 12:02 Sodium Potassium Chloride Carbon Dioxide Anion Gap BUN Creatinine Estim Creat Clear Calc Estimated GFR POC Glucose 346 H 224 H 285 H Random Glucose Calcium COVID-19 (CIRO) COVID-19 Clin Com 06/22/22 06/22/22 06/23/22 16:32 20:54 07:28 Sodium 137 Potassium 4.4 Chloride 98 Carbon Dioxide 30 H Anion Gap 13 BUN 19 H Creatinine 0.87 Estim Creat Clear Calc 65.9 Estimated GFR > 60 POC Glucose 234 H 282 H Random Glucose 186 H Calcium 9.9 D COVID-19 (CIRO) COVID-19 Clin Com 06/23/22 06/23/22 06/23/22 08:39 12:27 12:46 Sodium Potassium Chloride Carbon Dioxide Anion Gap BUN Creatinine Estim Creat Clear Calc Estimated GFR POC Glucose 189 H 176 H Random Glucose Calcium COVID-19 (CIRO) Positive A COVID-19 Clin Com See Note 06/23/22 06/23/22 14:50 16:36 Sodium Potassium Chloride Carbon Dioxide Anion Gap BUN Creatinine Estim Creat Clear Calc Estimated GFR POC Glucose 238 H Random Glucose Calcium COVID-19 (CIRO) Positive A COVID-19 Clin Com See Note Imaging Radiology Impressions: ITS Impressions Chest X-Ray 06/16/22 20:45 IMPRESSION: Hyperinflated lungs with platelike atelectasis left lung base. Medications Medications Current Medications Acetaminophen (Acetaminophen 325 Mg Tablet) 650 mg PO Q6H PRN PRN Reason: Headache/Pain Mild Scale (1-3) Last Admin: 06/23/22 04:06 Dose: 650 mg Al Hydroxide/Mg Hydroxide (Magnesium Hydrox/Alum Hydrox 30 Ml Oral.Susp) 30 ml PO Q6H PRN PRN Reason: Heartburn/Nausea Aripiprazole (Aripiprazole 15 Mg Tablet) 15 mg PO DAILY [facility] Last Admin: 06/23/22 08:50 Dose: 15 mg Atorvastatin Calcium (Atorvastatin Calcium 40 Mg Tablet) 40 mg PO DAILY [facility] Last Admin: 06/23/22 08:51 Dose: 40 mg Benzonatate (Benzonatate 100 Mg Capsule) 100 mg PO TID PRN PRN Reason: cough Last Admin: 06/20/22 22:39 Dose: 100 mg Bisacodyl (Bisacodyl 5 Mg Tablet.Dr) 10 mg PO BEDTIME PRN PRN Reason: constipation Last Admin: 06/20/22 23:48 Dose: 5 mg Clonazepam (Clonazepam 0.5 Mg Tablet) 0.5 mg PO BID [facility] Last Admin: 06/23/22 08:50 Dose: 0.5 mg Cyanocobalamin (Cyanocobalamin (Vitamin B-12) 500 Mcg Tablet) 500 mcg PO DAILY [facility] Last Admin: 06/23/22 08:50 Dose: 500 mcg Docusate Sodium (Docusate Sodium 100 Mg Capsule) 100 mg PO TID [facility] Last Admin: 06/23/22 14:12 Dose: 100 mg Empagliflozin (Empagliflozin 25 Mg Tablet) 25 mg PO DAILY [facility] Last Admin: 06/23/22 08:51 Dose: 25 mg Fenofibrate (Fenofibrate 160 Mg Tablet) 160 mg PO DAILY [facility] Last Admin: 06/23/22 08:51 Dose: 160 mg Gabapentin (Gabapentin 600 Mg Tablet) 600 mg PO TID [facility] Last Admin: 06/23/22 14:12 Dose: 600 mg Hydroxyzine HCl (Hydroxyzine Hcl 25 Mg Tablet) 25 mg PO Q6H PRN PRN Reason: Anxiety Last Admin: 06/23/22 11:51 Dose: 25 mg Insulin Glargine (Insulin Glargine,Hum.Rec.Anlog 100 Unit/Ml 10 Ml Vial) 25 unit SUBCUT DAILY [facility] Last Admin: 06/23/22 08:49 Dose: 25 unit Insulin Human Lispro (Insulin Lispro 100 Unit/Ml 3 Ml Vial) 0.1 - 10 unit SUBCUT QIDACHS [facility]; Protocol Last Admin: 06/23/22 17:01 Dose: 4 unit Latanoprost (Latanoprost 0.005 % Ophth Sade 2.5 Ml Drops) 1 drop EYE-BOTH BEDTIME [facility] Last Admin: 06/22/22 19:50 Dose: 1 drop Levothyroxine Sodium (Levothyroxine Sodium 25 Mcg Tablet) 25 mcg PO DAILY@0600 [facility] Last Admin: 06/23/22 06:29 Dose: 25 mcg Magnesium Hydroxide (Milk Of Magnesia 30 Ml Oral.Susp) 30 ml PO DAILY PRN PRN Reason: Constipation Last Admin: 06/20/22 04:35 Dose: 30 ml Melatonin (Melatonin 3 Mg Tablet) 9 mg PO BEDTIME PRN PRN Reason: Insomnia Last Admin: 06/22/22 23:51 Dose: 9 mg Nicotine (Nicotine 21 Mg Patch.Td24) 21 mg TRANSDERMA DAILY [facility] Last Admin: 06/23/22 08:53 Dose: Not Given Nicotine Polacrilex (Nicotine Polacrilex 2 Mg Gum) 4 mg BUCCAL Q2H PRN PRN Reason: Nicotine Cravings Pt Own (Brimonidine [Alphagan P] 0.1 % Drops) 1 drop EYE-BOTH BID [facility] Last Admin: 06/23/22 08:54 Dose: 1 drop Pt Own (Advair Hfa 2 (Inhalation)) 2 inhalation INHALE RBID [facility] Last Admin: 06/23/22 08:54 Dose: 2 inhalation Omeprazole (Omeprazole 20 Mg Capsule.Dr) 20 mg PO DAILY@0630 [facility] Last Admin: 06/23/22 06:29 Dose: 20 mg Pioglitazone HCl (Pioglitazone Hcl 15 Mg Tablet) 15 mg PO DAILY@1700 [facility] Last Admin: 06/23/22 17:03 Dose: 15 mg Quetiapine Fumarate (Quetiapine Fumarate 25 Mg Tablet) 75 mg PO BEDTIME [facility] Last Admin: 06/22/22 19:44 Dose: 75 mg Senna (Sennosides 8.6 Mg Tablet) 17.2 mg PO DAILY [facility] Last Admin: 06/23/22 08:50 Dose: 17.2 mg Vitamin D (Cholecalciferol (Vitamin D3) 25 Mcg Tablet) 50 mcg PO DAILY [facility] Last Admin: 06/23/22 08:50 Dose: 50 mcg Allergies Allergies Allergy/AdvReac Type Severity Reaction Status Date / Time ziprasidone [From Geodon] Allergy Mild RASH-PALPIT Verified 06/03/22 10:44 ATIONS aspirin [ASPIRIN] Allergy Unknown GI bleed, Verified 06/03/22 10:44 stomach upset azithromycin Allergy Unknown facial Verified 06/03/22 10:44 swelling cephalexin [From KEFLEX] Allergy Unknown can't Verified 06/03/22 10:44 remember ibuprofen [IBUPROFEN] Allergy Unknown UNKNOWN, Verified 06/03/22 10:44 stomach upset lisinopril Allergy Unknown cough Verified 06/03/22 10:44 metformin [METFORMIN] Allergy Unknown NAUSEA & Verified 06/03/22 10:44 VOMITING, GI upset valsartan [From Diovan] Allergy Unknown hives Verified 06/03/22 10:44 NSAIDS (Non-Steroidal AdvReac Unknown HX OF GI Verified 06/03/22 10:44 Anti-Inflamma BLEED [NSAIDS (NON-STEROIDAL ANTI-INFLAMMA] tramadol [Ultram] AdvReac Unknown GI upset Verified 06/03/22 10:44 Assessment & Plan Assessment & Plan (1) Depression: Status: Acute Code(s): F32.9 - Major depressive disorder, single episode, unspecified Plan 71 yo female admitted for increase in depressive sx and not having her medicine supply for 5-6 weeks. Plan: Re-establish pre-existing regime and monitor. Collateral contacts Monitor medical issues, blood sugar for need for regime changes 06/19: Continue current regimen and plans 06/20: Continue current regimen and plans. Add Seroquel 50 mg for sleep, increase Colace 100 mg t.i.d. 06/21: Continue current regimen and plans 06/22/22: Increase Seroquel to 75 mg hs BMP on 06/23/22 06/23/22: K+ WNL Continue current regime-monitor COVID sx. Patient educated on: medication risk/benefits, therapeutic strategies and medical condition Informed Consent: further education needed Reason for contiued inpatient stay Substantial Risk for: med/psych decompensation Time Spent With Patient Time: Total time managing care of this patient today __30__ minutes.
[2022-06-23 18:00] VITALS: BP 132/59; PULSE 110; RESP 20; TEMP 36.6; O2SAT 93
[2022-06-23] MEDS: Acetaminophen 325 MG TABLET 975 MG PO (18:43)
[2022-06-23 20:36] LABS: Glucose, Whole Blood 174 mg/dL (60-115)
[2022-06-23 21:43] VITALS: RESP 16
[2022-06-23] MEDS: Morphine Sulfate 4 MG/ML CARTRIDGE IM (21:43)
[2022-06-23] MEDS: QUEtiapine Fumarate 25 MG TABLET 75 MG PO (21:44)
[2022-06-24 05:23] VITALS: RESP 16
--- NOTE | 2022-06-24 05:55 | HO.PM.IMCN ---
History of Present Illness Data of Consult Service Date: 06/23/22 Primary Care Provider: Unknown Physician HPI I was asked to see this 71-year-old female with past medical history of depression, who was admitted to [facility] for suicidal ideation, and diagnosed with COVID-19 for evaluation of left lower extremity swelling as well as pain. On my exam patient is in hospital bed, in isolation, on Nasal cannula oxygen, reports pain in her left lower extremity, reports bilateral swelling worse than the left side, reports that this been going on for the past several days, she denies any fever or chills. Reports no increased shortness of breath, denies palpitations, no abdominal pain nausea vomiting, no diarrhea constipation, no urinary symptom. Review of Systems Review of Systems: Yes all other systems are reviewed and are negative [facility] Medical History Chest pain Constipation COPD (chronic obstructive pulmonary disease) Depression العلي (dyspnea on exertion) HLD (hyperlipidemia) HTN (hypertension) Jaw pain Multinodular thyroid Nocturnal hypoxemia Osteopenia (~2015) Personal history of nicotine dependence Pulmonary nodule Sialoadenitis Smoker Spinal stenosis T2DM (type 2 diabetes mellitus) (~2008) Vitamin D deficiency Family History Father No problems noted. Mother Cancer Diabetes Surgical History History of cardiac catheterization History of lithotripsy Hx of arthroscopy of left knee Hx of cholecystectomy Hx of colonoscopy Hx of spinal fusion S/P thyroid biopsy Social History Household Members: None Housing: Apartment Do you presently have visiting nurse or other home services: Yes Alcohol intake: never Patient Tobacco Use Status: Current everyday Tobacco user Smoking Start Date: 04/01/1964 Tobacco use type: Cigarette Cigarette Packs Per Day: 0.5 Cigarettes Per Day: 10.0 Smoked in Last 30 Days: Yes e-Cigarette/Vaping Use: Former Use Patient Interested in Nicotine Replacement: Yes Patient Given Instructions on How to Stop Smoking: Yes Date Education Initiated: 06/17/22 Second Hand Smoke Exposure: Yes Use of substances other than those prescribed or required for medical reasons: No Currently Displaying Signs/Symptoms of Drug Intoxication Withdrawal: No Any prior treatment program specific to substance use: No Have you been hit, kicked, punched, or otherwise hurt by someone within the past year? If so, by whom?: No Do you feel safe in your current relationship?: Yes Is there a partner from a previous relationship who is making you feel unsafe now?: No Are you made to feel afraid or neglected: No Spiritual Healthcare Practices: Episcopal Advance Directives: Yes Advance Directives Information Provided: No Advance Directives on File: Yes Advance Directives Date on File: 04/02/21 Do you have thoughts of harming others: None Do you have a plan to hurt others: No Plan Recently lost weight without trying: No Eating poorly because of decreased appetite: Yes Patient : No : No Poor oral hygiene: No service: No Current occupational status: retired Sexual orientation: Straight/Heterosexual Cognitive needs: No Hearing needs: No Vision needs: No Meds Allergies Allergy/AdvReac Type Severity Reaction Status Date / Time ziprasidone [From Geodon] Allergy Mild RASH-PALPIT Verified 06/03/22 10:44 ATIONS aspirin [ASPIRIN] Allergy Unknown GI bleed, Verified 06/03/22 10:44 stomach upset azithromycin Allergy Unknown facial Verified 06/03/22 10:44 swelling cephalexin [From KEFLEX] Allergy Unknown can't Verified 06/03/22 10:44 remember ibuprofen [IBUPROFEN] Allergy Unknown UNKNOWN, Verified 06/03/22 10:44 stomach upset lisinopril Allergy Unknown cough Verified 06/03/22 10:44 metformin [METFORMIN] Allergy Unknown NAUSEA & Verified 06/03/22 10:44 VOMITING, GI upset valsartan [From Diovan] Allergy Unknown hives Verified 06/03/22 10:44 NSAIDS (Non-Steroidal AdvReac Unknown HX OF GI Verified 06/03/22 10:44 Anti-Inflamma BLEED [NSAIDS (NON-STEROIDAL ANTI-INFLAMMA] tramadol [Ultram] AdvReac Unknown GI upset Verified 06/03/22 10:44 Active Medications: Current Medications Acetaminophen (Acetaminophen 325 Mg Tablet) 650 mg PO Q6H PRN PRN Reason: Headache/Pain Mild Scale (1-3) Last Admin: 06/23/22 04:06 Dose: 650 mg Al Hydroxide/Mg Hydroxide (Magnesium Hydrox/Alum Hydrox 30 Ml Oral.Susp) 30 ml PO Q6H PRN PRN Reason: Heartburn/Nausea Aripiprazole (Aripiprazole 15 Mg Tablet) 15 mg PO DAILY [facility] Last Admin: 06/23/22 08:50 Dose: 15 mg Atorvastatin Calcium (Atorvastatin Calcium 40 Mg Tablet) 40 mg PO DAILY [facility] Last Admin: 06/23/22 08:51 Dose: 40 mg Benzonatate (Benzonatate 100 Mg Capsule) 100 mg PO TID PRN PRN Reason: cough Last Admin: 06/20/22 22:39 Dose: 100 mg Bisacodyl (Bisacodyl 5 Mg Tablet.Dr) 10 mg PO BEDTIME PRN PRN Reason: constipation Last Admin: 06/20/22 23:48 Dose: 5 mg Clonazepam (Clonazepam 0.5 Mg Tablet) 0.5 mg PO BID [facility] Last Admin: 06/23/22 21:44 Dose: 0.5 mg Cyanocobalamin (Cyanocobalamin (Vitamin B-12) 500 Mcg Tablet) 500 mcg PO DAILY [facility] Last Admin: 06/23/22 08:50 Dose: 500 mcg Docusate Sodium (Docusate Sodium 100 Mg Capsule) 100 mg PO TID [facility] Last Admin: 06/23/22 21:44 Dose: 100 mg Empagliflozin (Empagliflozin 25 Mg Tablet) 25 mg PO DAILY [facility] Last Admin: 06/23/22 08:51 Dose: 25 mg Enoxaparin Sodium (Enoxaparin Sodium 40 Mg/0.4 Ml Syringe) 40 mg SUBCUT Q24H ROBIN Fenofibrate (Fenofibrate 160 Mg Tablet) 160 mg PO DAILY [facility] Last Admin: 06/23/22 08:51 Dose: 160 mg Gabapentin (Gabapentin 600 Mg Tablet) 600 mg PO TID [facility] Last Admin: 06/23/22 21:44 Dose: 600 mg Hydroxyzine HCl (Hydroxyzine Hcl 25 Mg Tablet) 25 mg PO Q6H PRN PRN Reason: Anxiety Last Admin: 06/23/22 11:51 Dose: 25 mg Insulin Glargine (Insulin Glargine,Hum.Rec.Anlog 100 Unit/Ml 10 Ml Vial) 25 unit SUBCUT DAILY [facility] Last Admin: 06/23/22 08:49 Dose: 25 unit Insulin Human Lispro (Insulin Lispro 100 Unit/Ml 3 Ml Vial) 0.1 - 10 unit SUBCUT QIDACHS [facility]; Protocol Last Admin: 06/23/22 21:43 Dose: 2 unit Latanoprost (Latanoprost 0.005 % Ophth Sade 2.5 Ml Drops) 1 drop EYE-BOTH BEDTIME [facility] Last Admin: 06/23/22 21:49 Dose: Not Given Levothyroxine Sodium (Levothyroxine Sodium 25 Mcg Tablet) 25 mcg PO DAILY@0600 [facility] Last Admin: 06/23/22 06:29 Dose: 25 mcg Magnesium Hydroxide (Milk Of Magnesia 30 Ml Oral.Susp) 30 ml PO DAILY PRN PRN Reason: Constipation Last Admin: 06/20/22 04:35 Dose: 30 ml Melatonin (Melatonin 3 Mg Tablet) 9 mg PO BEDTIME PRN PRN Reason: Insomnia Last Admin: 06/22/22 23:51 Dose: 9 mg Nicotine (Nicotine 21 Mg Patch.Td24) 21 mg TRANSDERMA DAILY [facility] Last Admin: 06/23/22 08:53 Dose: Not Given Nicotine Polacrilex (Nicotine Polacrilex 2 Mg Gum) 4 mg BUCCAL Q2H PRN PRN Reason: Nicotine Cravings Pt Own (Brimonidine [Alphagan P] 0.1 % Drops) 1 drop EYE-BOTH BID [facility] Last Admin: 06/23/22 21:42 Dose: 1 drop Pt Own (Advair Hfa 2 (Inhalation)) 2 inhalation INHALE RBID [facility] Last Admin: 06/23/22 21:42 Dose: 2 inhalation Omeprazole (Omeprazole 20 Mg Capsule.Dr) 20 mg PO DAILY@0630 [facility] Last Admin: 06/23/22 06:29 Dose: 20 mg Pioglitazone HCl (Pioglitazone Hcl 15 Mg Tablet) 15 mg PO DAILY@1700 [facility] Last Admin: 06/23/22 17:03 Dose: 15 mg Quetiapine Fumarate (Quetiapine Fumarate 25 Mg Tablet) 75 mg PO BEDTIME [facility] Last Admin: 06/23/22 21:44 Dose: 75 mg Senna (Sennosides 8.6 Mg Tablet) 17.2 mg PO DAILY [facility] Last Admin: 06/23/22 08:50 Dose: 17.2 mg Vitamin D (Cholecalciferol (Vitamin D3) 25 Mcg Tablet) 50 mcg PO DAILY [facility] Last Admin: 06/23/22 08:50 Dose: 50 mcg Home Medications Medication Instructions Recorded Confirmed Last Taken Type blood sugar diagnostic #10 ea 05/19/20 03/09/22 Unknown History brimonidine 0.1 % eye drops 1 drp ophthalmic (eye) BID 01/06/21 06/16/22 03/13/21 History (Alphagan P) suvorexant 10 mg tablet (Belsomra) 10 mg PO BEDTIME PRN Insomnia 07/02/21 06/16/22 Unknown History clonazepam 0.5 mg tablet 0.5 mg PO DAILY PRN Anxiety 08/07/21 06/16/22 Unknown History aripiprazole 15 mg tablet 1 tab PO DAILY 06/16/22 06/16/22 Unknown History atorvastatin 40 mg tablet 1 tab PO DAILY 06/16/22 06/16/22 Unknown History docusate sodium 100 mg capsule 1 cap PO BID 06/16/22 06/16/22 Unknown History empagliflozin 25 mg tablet 1 tab PO DAILY 06/16/22 06/16/22 Unknown History (Jardiance) esomeprazole magnesium 40 mg 1 cap PO DAILY 06/16/22 06/16/22 Unknown History capsule,delayed release fenofibrate 160 mg tablet 1 tab PO DAILY 06/16/22 06/16/22 Unknown History fluticasone propionate 230 2 puff inhalation BID 06/16/22 06/16/22 Unknown History mcg-salmeterol 21 mcg/actuation HFA inhaler (Advair HFA) gabapentin 600 mg tablet 1 tab PO TID 06/16/22 06/16/22 Unknown History latanoprost 0.005 % eye drops 1 drp ophthalmic (eye) BEDTIME 06/16/22 06/16/22 Unknown History levothyroxine 25 mcg tablet 1 tab PO DAILY 06/16/22 06/16/22 Unknown History pioglitazone 15 mg tablet 1 tab PO DAILY 06/16/22 06/16/22 Unknown History sennosides 8.6 mg tablet (senna) 2 tab PO DAILY 06/16/22 06/16/22 Unknown History Physical Exam Vital Signs and Narrative: Vital Signs: Last Vital Signs Temp 97.9 F 06/23/22 18:00 Pulse 110 H 06/23/22 18:00 Resp 16 06/24/22 05:23 BP 132/59 L 06/23/22 18:00 Pulse Ox 93 06/23/22 18:00 O2 Del Method 06/23/22 18:00 Oxygen Flow Rate 2 06/18/22 23:30 BMI result Body Mass Index 30.9 Const: General: cooperative and no acute distress Orientation/consciousness: patient oriented x3 Eyes: General: appearance normal, both eyes and all related structures Pupils: Equal, round and reactive pupils present Resp: Effort & Inspection: normal respiratory effort Auscultation: clear to auscultation bilaterally Cardio: Rate: regular rate Rhythm: regular rhythm GI: Palpation (GI): Soft to palpation Auscultation: normal bowel sounds Skin: General skin exam: no rashes or lesions noted Neuro: General: patient oriented x3 Cranial nerves: Yes Equal, round and reactive pupils present Cognition (Neuro): normal cognition Extrem: Other: lower extremity painful to touch specially on the left, no erythema, no warmth, no pitting edema, General: Yes normal to inspection and Yes no pedal edema Results Labs CBC and Chem 7: 06/16/22 20:28 06/23/22 07:28 Labs: Laboratory Results - last 24 hr 06/23/22 06/23/22 06/23/22 07:28 08:39 12:27 Anion Gap 13 Estim Creat Clear Calc 65.9 Estimated GFR > 60 POC Glucose 189 H 176 H Random Glucose 186 H Calcium 9.9 D COVID-19 ([facility]IRO) COVID-19 Clin Com 06/23/22 06/23/22 06/23/22 12:46 14:50 16:36 Anion Gap Estim Creat Clear Calc Estimated GFR POC Glucose 238 H Random Glucose Calcium COVID-19 (CIRO) Positive A Positive A COVID-19 Clin Com See Note See Note 06/23/22 20:31 Anion Gap Estim Creat Clear Calc Estimated GFR POC Glucose 174 H Random Glucose Calcium COVID-19 ([facility]IRO) COVID-19 Clin Com Imaging Radiologist's Impressions: Impressions Venous Duplex 06/23/22 21:19 IMPRESSION: No DVT demonstrated in the bilateral lower extremity. Assessment and Plan (1) Lower extremity pain: Status: Acute Plan 71-year-old female who is admitted to [facility] for management of suicidal ideation, diagnosed with COVID infection currently in isolation, we are asked to see this patient in regards to left lower extremity pain as as well as swelling # left lower extremity swelling /pain - no evidence of cellulitis, negative for edema, warmth, no pitting edema - venous duplex bilaterally negative for any evidence of DVT - this is likely secondary to her diabetic neuropathy - I would recommend gabapentin small dose at bedtime - will add BNP although less likely to be heart failure thank you for this consult, will sign off on this consult, please contact hospitalist office for any further questions Time Spent With Patient Time: Total time managing care of this patient today ____ minutes.
[2022-06-24 06:00] VITALS: BP 99/52; PULSE 98; RESP 18; TEMP 36.7; O2SAT 94
[2022-06-24] MEDS: Omeprazole 20 MG CAPSULE.DR PO (06:14)
[2022-06-24] MEDS: Acetaminophen 325 MG TABLET 650 MG PO (06:14)
[2022-06-24] MEDS: Levothyroxine Sodium 25 MCG TABLET PO (06:14)
[2022-06-24] MEDS: Enoxaparin Sodium 40 MG/0.4 ML SYRINGE SUBCUT (08:24)
[2022-06-24] MEDS: Cyanocobalamin (Vitamin B-12) 500 MCG TABLET PO (08:25)
[2022-06-24] MEDS: ARIPiprazole 15 MG TABLET PO (08:25)
[2022-06-24] MEDS: Docusate Sodium 100 MG CAPSULE PO ×3 (08:25→20:02)
[2022-06-24] MEDS: Gabapentin 600 MG TABLET PO ×3 (08:25→20:02)
[2022-06-24] MEDS: clonazePAM 0.5 MG TABLET PO ×2 (08:25→20:04)
[2022-06-24] MEDS: Fenofibrate 160 MG TABLET PO (08:25)
[2022-06-24] MEDS: Empagliflozin 25 MG TABLET PO (08:25)
[2022-06-24] MEDS: Cholecalciferol (Vitamin D3) 25 MCG TABLET 50 MCG PO (08:25)
[2022-06-24] MEDS: Atorvastatin Calcium 40 MG TABLET PO (08:25)
[2022-06-24] MEDS: Sennosides 8.6 MG TABLET 17.2 MG PO (08:25)
[2022-06-24] MEDS: Insulin Glargine,Hum.rec.anlog 100 UNIT/ML 10 ML VIAL 25 UNIT SUBCUT (08:47)
[2022-06-24] MEDS: Insulin Lispro 100 UNIT/ML 3 ML VIAL SUBCUT ×4 (08:48→21:04)
[2022-06-24 08:52] LABS: Glucose, Whole Blood 202 mg/dL (60-115)
[2022-06-24 09:03] LABS: B Type Natriuretic Peptide < 10 pg/mL (<100)
[2022-06-24 12:41] LABS: Glucose, Whole Blood 223 mg/dL (60-115)
[2022-06-24] MEDS: hydrOXYzine HCL 25 MG TABLET PO (14:14)
[2022-06-24 16:41] LABS: Glucose, Whole Blood 206 mg/dL (60-115)
[2022-06-24 18:00] VITALS: BP 138/88; PULSE 102; RESP 16; TEMP 36.5; O2SAT 93
--- NOTE | 2022-06-24 18:11 | HO.PSYCHPN ---
Subjective Subjective Date of Service: 06/24/22 Reason For Visit: SI Subjective Notes: Conditional Voluntary Healthcare Proxy: No Guardianship: No Medical Problems Affecting Mental Status: No Interim History: Retraction of three day notice LLE Doppler last evening negative. Seen by hospitalist-edema, pain-diabetic neuropathy. Pain persists Reports feeling achy, throat scratchy, lightheaded. Discussed remaining in hospital to get through COVID Medication Compliance: Yes Side effects from medications: No Attending Groups: No Review of Systems Acute medical concerns: No Medical Review of Systems: unchanged Mental Status Exam Mental Status Exam Patient Appearance: Appropriate Patient Orientation: Person, Place, Time and Situation Level of Consciousness: Alert Patient Behavior: Talkative, Anxious, Distractible and Good Eye Contact Mood Description: Depressed, Hostile, Anxious, Labile, Angry and Apprehensive Affect Description: Depressed, Hostile, Anxious, Labile, Angry and Apprehensive Patient Cognition Impaired: No Ability to Follow Directions: Good Speech Pattern: Spontaneous Speech Memory Description: Intact Hallucinations: None Delusions: Not Present Perceptual Disturbances: Derealization Thought Process: Intact Thought Content: positive for Intact Depressive Symptoms: Increased Anxiety, Increased Irritability and Crying Spells Judgement: Fair Diagnostics Vital Signs (24Hr): Vital Signs - 24 hr 06/23/22 21:43 06/24/22 05:23 06/24/22 06:00 Temperature 98.1 F Pulse Rate 98 Respiratory Rate 16 16 18 Blood Pressure 99/52 L Pulse Oximetry 94 Oxygen Delivery Method Room Air BMI result Body Mass Index 30.9 Labs Results: 06/16/22 20:28 06/23/22 07:28 Labs: Laboratory Results - last 48 hr 06/22/22 06/23/22 06/23/22 20:54 07:28 08:39 Sodium 137 Potassium 4.4 Chloride 98 Carbon Dioxide 30 H Anion Gap 13 BUN 19 H Creatinine 0.87 Estim Creat Clear Calc 65.9 Estimated GFR > 60 POC Glucose 282 H 189 H Random Glucose 186 H Calcium 9.9 D B-Natriuretic Peptide COVID-19 ([facility]) COVID-19 Clin Com 06/23/22 06/23/22 06/23/22 12:27 12:46 14:50 Sodium Potassium Chloride Carbon Dioxide Anion Gap BUN Creatinine Estim Creat Clear Calc Estimated GFR POC Glucose 176 H Random Glucose Calcium B-Natriuretic Peptide COVID-19 ([facility]) Positive A Positive A COVID-19 Clin Com See Note See Note 06/23/22 06/23/22 06/24/22 16:36 20:31 08:22 Sodium Potassium Chloride Carbon Dioxide Anion Gap BUN Creatinine Estim Creat Clear Calc Estimated GFR POC Glucose 238 H 174 H Random Glucose Calcium B-Natriuretic Peptide < 10 COVID-19 ([facility]) COVID-19 Clin Com 06/24/22 06/24/22 06/24/22 08:37 12:37 16:32 Sodium Potassium Chloride Carbon Dioxide Anion Gap BUN Creatinine Estim Creat Clear Calc Estimated GFR POC Glucose 202 H 223 H 206 H Random Glucose Calcium B-Natriuretic Peptide COVID-19 ([facility]) COVID-19 Clin Com Imaging Radiology Impressions: ITS Impressions Chest X-Ray 06/16/22 20:45 IMPRESSION: Hyperinflated lungs with platelike atelectasis left lung base. Venous Duplex 06/23/22 21:19 IMPRESSION: No DVT demonstrated in the bilateral lower extremity. Medications Medications Current Medications Acetaminophen (Acetaminophen 325 Mg Tablet) 650 mg PO Q6H PRN PRN Reason: Headache/Pain Mild Scale (1-3) Last Admin: 06/24/22 06:14 Dose: 650 mg Al Hydroxide/Mg Hydroxide (Magnesium Hydrox/Alum Hydrox 30 Ml Oral.Susp) 30 ml PO Q6H PRN PRN Reason: Heartburn/Nausea Aripiprazole (Aripiprazole 15 Mg Tablet) 15 mg PO DAILY COUNTS INCLUDE 234 BEDS AT THE [facility] Last Admin: 06/24/22 08:25 Dose: 15 mg Atorvastatin Calcium (Atorvastatin Calcium 40 Mg Tablet) 40 mg PO DAILY COUNTS INCLUDE 234 BEDS AT THE [facility] Last Admin: 06/24/22 08:25 Dose: 40 mg Benzonatate (Benzonatate 100 Mg Capsule) 100 mg PO TID PRN PRN Reason: cough Last Admin: 06/20/22 22:39 Dose: 100 mg Bisacodyl (Bisacodyl 5 Mg Tablet.Dr) 10 mg PO BEDTIME PRN PRN Reason: constipation Last Admin: 06/20/22 23:48 Dose: 5 mg Clonazepam (Clonazepam 0.5 Mg Tablet) 0.5 mg PO BID COUNTS INCLUDE 234 BEDS AT THE [facility] Last Admin: 06/24/22 08:25 Dose: 0.5 mg Cyanocobalamin (Cyanocobalamin (Vitamin B-12) 500 Mcg Tablet) 500 mcg PO DAILY COUNTS INCLUDE 234 BEDS AT THE [facility] Last Admin: 06/24/22 08:25 Dose: 500 mcg Docusate Sodium (Docusate Sodium 100 Mg Capsule) 100 mg PO TID COUNTS INCLUDE 234 BEDS AT THE [facility] Last Admin: 06/24/22 14:04 Dose: 100 mg Empagliflozin (Empagliflozin 25 Mg Tablet) 25 mg PO DAILY COUNTS INCLUDE 234 BEDS AT THE [facility] Last Admin: 06/24/22 08:25 Dose: 25 mg Enoxaparin Sodium (Enoxaparin Sodium 40 Mg/0.4 Ml Syringe) 40 mg SUBCUT Q24H COUNTS INCLUDE 234 BEDS AT THE [facility] Last Admin: 06/24/22 08:24 Dose: 40 mg Fenofibrate (Fenofibrate 160 Mg Tablet) 160 mg PO DAILY COUNTS INCLUDE 234 BEDS AT THE [facility] Last Admin: 06/24/22 08:25 Dose: 160 mg Gabapentin (Gabapentin 600 Mg Tablet) 600 mg PO TID COUNTS INCLUDE 234 BEDS AT THE [facility] Last Admin: 06/24/22 14:04 Dose: 600 mg Hydroxyzine HCl (Hydroxyzine Hcl 25 Mg Tablet) 25 mg PO Q6H PRN PRN Reason: Anxiety Last Admin: 06/24/22 14:14 Dose: 25 mg Insulin Glargine (Insulin Glargine,Hum.Rec.Anlog 100 Unit/Ml 10 Ml Vial) 25 unit SUBCUT DAILY COUNTS INCLUDE 234 BEDS AT THE [facility] Last Admin: 06/24/22 08:47 Dose: 25 unit Insulin Human Lispro (Insulin Lispro 100 Unit/Ml 3 Ml Vial) 0.1 - 10 unit SUBCUT QIDACHS COUNTS INCLUDE 234 BEDS AT THE [facility]; Protocol Last Admin: 06/24/22 17:27 Dose: 4 unit Latanoprost (Latanoprost 0.005 % Ophth Sade 2.5 Ml Drops) 1 drop EYE-BOTH BEDTIME COUNTS INCLUDE 234 BEDS AT THE [facility] Last Admin: 06/23/22 21:49 Dose: Not Given Levothyroxine Sodium (Levothyroxine Sodium 25 Mcg Tablet) 25 mcg PO DAILY@0600 COUNTS INCLUDE 234 BEDS AT THE [facility] Last Admin: 06/24/22 06:14 Dose: 25 mcg Magnesium Hydroxide (Milk Of Magnesia 30 Ml Oral.Susp) 30 ml PO DAILY PRN PRN Reason: Constipation Last Admin: 06/20/22 04:35 Dose: 30 ml Melatonin (Melatonin 3 Mg Tablet) 9 mg PO BEDTIME PRN PRN Reason: Insomnia Last Admin: 06/22/22 23:51 Dose: 9 mg Nicotine (Nicotine 21 Mg Patch.Td24) 21 mg TRANSDERMA DAILY COUNTS INCLUDE 234 BEDS AT THE [facility] Last Admin: 06/24/22 08:26 Dose: Not Given Nicotine Polacrilex (Nicotine Polacrilex 2 Mg Gum) 4 mg BUCCAL Q2H PRN PRN Reason: Nicotine Cravings Pt Own (Brimonidine [Alphagan P] 0.1 % Drops) 1 drop EYE-BOTH BID COUNTS INCLUDE 234 BEDS AT THE [facility] Last Admin: 06/24/22 08:21 Dose: 1 drop Pt Own (Advair Hfa 2 (Inhalation)) 2 inhalation INHALE RBID COUNTS INCLUDE 234 BEDS AT THE [facility] Last Admin: 06/24/22 08:21 Dose: 2 inhalation Omeprazole (Omeprazole 20 Mg Capsule.Dr) 20 mg PO DAILY@0630 COUNTS INCLUDE 234 BEDS AT THE [facility] Last Admin: 06/24/22 06:14 Dose: 20 mg Pioglitazone HCl (Pioglitazone Hcl 15 Mg Tablet) 15 mg PO DAILY@1700 COUNTS INCLUDE 234 BEDS AT THE [facility] Last Admin: 06/24/22 16:41 Dose: 15 mg Quetiapine Fumarate (Quetiapine Fumarate 25 Mg Tablet) 75 mg PO BEDTIME COUNTS INCLUDE 234 BEDS AT THE [facility] Last Admin: 06/23/22 21:44 Dose: 75 mg Senna (Sennosides 8.6 Mg Tablet) 17.2 mg PO DAILY COUNTS INCLUDE 234 BEDS AT THE [facility] Last Admin: 06/24/22 08:25 Dose: 17.2 mg Vitamin D (Cholecalciferol (Vitamin D3) 25 Mcg Tablet) 50 mcg PO DAILY COUNTS INCLUDE 234 BEDS AT THE [facility] Last Admin: 06/24/22 08:25 Dose: 50 mcg Allergies Allergies Allergy/AdvReac Type Severity Reaction Status Date / Time ziprasidone [From Geodon] Allergy Mild RASH-PALPIT Verified 06/03/22 10:44 ATIONS aspirin [ASPIRIN] Allergy Unknown GI bleed, Verified 06/03/22 10:44 stomach upset azithromycin Allergy Unknown facial Verified 06/03/22 10:44 swelling cephalexin [From KEFLEX] Allergy Unknown can't Verified 06/03/22 10:44 remember ibuprofen [IBUPROFEN] Allergy Unknown UNKNOWN, Verified 06/03/22 10:44 stomach upset lisinopril Allergy Unknown cough Verified 06/03/22 10:44 metformin [METFORMIN] Allergy Unknown NAUSEA & Verified 06/03/22 10:44 VOMITING, GI upset valsartan [From Diovan] Allergy Unknown hives Verified 06/03/22 10:44 NSAIDS (Non-Steroidal AdvReac Unknown HX OF GI Verified 06/03/22 10:44 Anti-Inflamma BLEED [NSAIDS (NON-STEROIDAL ANTI-INFLAMMA] tramadol [Ultram] AdvReac Unknown GI upset Verified 06/03/22 10:44 Assessment & Plan Assessment & Plan (1) Lower extremity pain: Status: Acute Code(s): M79.606 - Pain in leg, unspecified Plan 71-year-old female who is admitted [facility] for management of suicidal ideation, diagnosed with COVID infection currently in isolation, we are asked to see this patient in regards to left lower extremity pain as as well as swelling # left lower extremity swelling /pain - no evidence of cellulitis, negative for edema, warmth, no pitting edema - venous duplex bilaterally negative for any evidence of DVT - this is likely secondary to her diabetic neuropathy - I would recommend gabapentin small dose at bedtime - will add BNP although less likely to be heart failure thank you for this consult, will sign off on this consult, please contact hospitalist office for any further questions 06/24/22 Continue current plan Monitor COVID Patient educated on: medication risk/benefits, therapeutic strategies and medical condition Informed Consent: further education needed Reason for contiued inpatient stay Substantial Risk for: med/psych decompensation Time Spent With Patient Time: Total time managing care of this patient today _20___ minutes.
[2022-06-24] MEDS: Latanoprost 0.005 % Ophth Sol 2.5 ML DROPS 1 DROP EYE-BOTH (20:02)
[2022-06-24] MEDS: QUEtiapine Fumarate 25 MG TABLET 75 MG PO (20:02)
[2022-06-24] MEDS: Melatonin 3 MG TABLET 9 MG PO (20:04)
[2022-06-24 20:27] LABS: Glucose, Whole Blood 210 mg/dL (60-115)
[2022-06-25] MEDS: Throat Lozenge, Medicated LOZENGE 1 LOZENGE MUCOUS MEM (00:49)
[2022-06-25 06:00] VITALS: BP 140/68; PULSE 16; RESP 14; TEMP 36.6; O2SAT 97
[2022-06-25] MEDS: Omeprazole 20 MG CAPSULE.DR PO (06:10)
[2022-06-25] MEDS: Levothyroxine Sodium 25 MCG TABLET PO (06:10)
[2022-06-25 08:44] LABS: Anion Gap 11 (12-20); Blood Urea Nitrogen 19 mg/dL (9-16); Calcium 9.4 mg/dL (8.4-10.2); Carbon Dioxide 32 mmol/L (22-29); Chloride 102 mmol/L (96-108); Creatinine Clr Calc Pharmacy 60.9; Estimated Glomerular Filt Rate 59; Glucose Random 159 mg/dL (60-115); Potassium 4.8 mmol/L (3.3-5.1); Sodium 140 mmol/L (135-145)
[2022-06-25 08:46] LABS: Glucose, Whole Blood 172 mg/dL (60-115)
[2022-06-25] MEDS: Enoxaparin Sodium 40 MG/0.4 ML SYRINGE SUBCUT (08:58)
[2022-06-25] MEDS: Insulin Glargine,Hum.rec.anlog 100 UNIT/ML 10 ML VIAL 25 UNIT SUBCUT (08:59)
[2022-06-25] MEDS: Insulin Lispro 100 UNIT/ML 3 ML VIAL SUBCUT ×4 (09:00→21:33)
[2022-06-25] MEDS: clonazePAM 0.5 MG TABLET PO ×2 (09:01→20:56)
[2022-06-25] MEDS: Cholecalciferol (Vitamin D3) 25 MCG TABLET 50 MCG PO (09:01)
[2022-06-25] MEDS: Sennosides 8.6 MG TABLET 17.2 MG PO (09:01)
[2022-06-25] MEDS: Fenofibrate 160 MG TABLET PO (09:01)
[2022-06-25] MEDS: Cyanocobalamin (Vitamin B-12) 500 MCG TABLET PO (09:01)
[2022-06-25] MEDS: ARIPiprazole 15 MG TABLET PO (09:01)
[2022-06-25] MEDS: Docusate Sodium 100 MG CAPSULE PO ×3 (09:01→20:56)
[2022-06-25] MEDS: Atorvastatin Calcium 40 MG TABLET PO (09:01)
[2022-06-25] MEDS: Gabapentin 600 MG TABLET PO ×3 (09:01→20:56)
[2022-06-25] MEDS: Empagliflozin 25 MG TABLET PO (09:04)
[2022-06-25 12:21] LABS: Glucose, Whole Blood 218 mg/dL (60-115)
[2022-06-25] MEDS: Amoxicillin 500 MG CAPSULE PO (17:42)
[2022-06-25 17:59] LABS: Glucose, Whole Blood 260 mg/dL (60-115)
[2022-06-25 18:00] VITALS: BP 126/78; PULSE 81; RESP 16; TEMP 36.2; O2SAT 98
[2022-06-25 20:14] LABS: Glucose, Whole Blood 213 mg/dL (60-115)
--- NOTE | 2022-06-25 20:43 | HO.PSYCHPN ---
Subjective Subjective Date of Service: 06/25/22 Reason For Visit: SI Subjective Notes: Conditional Voluntary Healthcare Proxy: No Guardianship: No Medical Problems Affecting Mental Status: No Interim History: Sofiya reports feeling improved, however with reports of sx of sinus infection, which she has had several in the past. Discussed missing her home, routine, life and friends and is looking forward to returning to these. She reports however, being grateful that she has had the team to re-establish her med regime and help her to get through COVID. Medication Compliance: Yes Side effects from medications: No Attending Groups: No Review of Systems Acute medical concerns: No Medical Review of Systems: changed Review of Systems: sx of sinus infection Mental Status Exam Mental Status Exam Patient Appearance: Appropriate Patient Orientation: Person, Place, Time and Situation Level of Consciousness: Alert Patient Behavior: Talkative, Anxious, Distractible and Good Eye Contact Mood Description: Apprehensive Affect Description: Apprehensive Patient Cognition Impaired: No Ability to Follow Directions: Good Speech Pattern: Spontaneous Speech Memory Description: Intact Hallucinations: None Delusions: Not Present Thought Process: Intact Thought Content: positive for Intact Depressive Symptoms: Increased Anxiety Judgement: Fair Diagnostics Vital Signs (24Hr): Vital Signs - 24 hr 06/25/22 18:00 06/25/22 06:00 Temperature 97.2 F 98 F Pulse Rate 81 16 L Respiratory Rate 16 14 Blood Pressure 126/78 140/68 H Pulse Oximetry 98 97 Oxygen Delivery Method Room Air Room Air BMI result Body Mass Index 30.9 Labs Results: 06/16/22 20:28 06/25/22 08:14 Labs: Laboratory Results - last 48 hr 06/24/22 06/24/22 06/24/22 08:22 08:37 12:37 Sodium Potassium Chloride Carbon Dioxide Anion Gap BUN Creatinine Estim Creat Clear Calc Estimated GFR POC Glucose 202 H 223 H Random Glucose Calcium B-Natriuretic Peptide < 10 06/24/22 06/24/22 06/25/22 16:32 20:15 08:14 Sodium 140 Potassium 4.8 Chloride 102 Carbon Dioxide 32 H Anion Gap 11 L BUN 19 H D Creatinine 0.94 Estim Creat Clear Calc 60.9 Estimated GFR 59 POC Glucose 206 H 210 H Random Glucose 159 H Calcium 9.4 B-Natriuretic Peptide 06/25/22 06/25/22 06/25/22 08:37 12:11 17:21 Sodium Potassium Chloride Carbon Dioxide Anion Gap BUN Creatinine Estim Creat Clear Calc Estimated GFR POC Glucose 172 H 218 H 260 H Random Glucose Calcium B-Natriuretic Peptide 06/25/22 20:09 Sodium Potassium Chloride Carbon Dioxide Anion Gap BUN Creatinine Estim Creat Clear Calc Estimated GFR POC Glucose 213 H Random Glucose Calcium B-Natriuretic Peptide Imaging Radiology Impressions: ITS Impressions Chest X-Ray 06/16/22 20:45 IMPRESSION: Hyperinflated lungs with platelike atelectasis left lung base. Venous Duplex 06/23/22 21:19 IMPRESSION: No DVT demonstrated in the bilateral lower extremity. Medications Medications Current Medications Acetaminophen (Acetaminophen 325 Mg Tablet) 650 mg PO Q6H PRN PRN Reason: Headache/Pain Mild Scale (1-3) Last Admin: 06/24/22 06:14 Dose: 650 mg Al Hydroxide/Mg Hydroxide (Magnesium Hydrox/Alum Hydrox 30 Ml Oral.Susp) 30 ml PO Q6H PRN PRN Reason: Heartburn/Nausea Amoxicillin (Amoxicillin 500 Mg Capsule) 500 mg PO Q12H [facility] Stop: 07/05/22 21:00 Last Admin: 06/25/22 17:42 Dose: 500 mg Aripiprazole (Aripiprazole 15 Mg Tablet) 15 mg PO DAILY [facility] Last Admin: 06/25/22 09:01 Dose: 15 mg Atorvastatin Calcium (Atorvastatin Calcium 40 Mg Tablet) 40 mg PO DAILY [facility] Last Admin: 06/25/22 09:01 Dose: 40 mg Benzocaine (Throat Lozenge, Medicated Lozenge) 1 lozenge MUCOUS MEM Q2H PRN PRN Reason: Sore Throat Last Admin: 06/25/22 00:49 Dose: 1 lozenge Benzonatate (Benzonatate 100 Mg Capsule) 100 mg PO TID PRN PRN Reason: cough Last Admin: 06/20/22 22:39 Dose: 100 mg Bisacodyl (Bisacodyl 5 Mg Tablet.Dr) 10 mg PO BEDTIME PRN PRN Reason: constipation Last Admin: 06/20/22 23:48 Dose: 5 mg Clonazepam (Clonazepam 0.5 Mg Tablet) 0.5 mg PO BID [facility] Last Admin: 06/25/22 09:01 Dose: 0.5 mg Cyanocobalamin (Cyanocobalamin (Vitamin B-12) 500 Mcg Tablet) 500 mcg PO DAILY [facility] Last Admin: 06/25/22 09:01 Dose: 500 mcg Docusate Sodium (Docusate Sodium 100 Mg Capsule) 100 mg PO TID [facility] Last Admin: 06/25/22 14:09 Dose: 100 mg Empagliflozin (Empagliflozin 25 Mg Tablet) 25 mg PO DAILY [facility] Last Admin: 06/25/22 09:04 Dose: 25 mg Enoxaparin Sodium (Enoxaparin Sodium 40 Mg/0.4 Ml Syringe) 40 mg SUBCUT Q24H [facility] Last Admin: 06/25/22 08:58 Dose: 40 mg Fenofibrate (Fenofibrate 160 Mg Tablet) 160 mg PO DAILY [facility] Last Admin: 06/25/22 09:01 Dose: 160 mg Gabapentin (Gabapentin 600 Mg Tablet) 600 mg PO TID [facility] Last Admin: 06/25/22 14:09 Dose: 600 mg Guaifenesin (Guaifenesin 200 Mg/10 Ml 10 Ml Liquid) 10 ml PO Q6H PRN PRN Reason: Cough Hydroxyzine HCl (Hydroxyzine Hcl 25 Mg Tablet) 25 mg PO Q6H PRN PRN Reason: Anxiety Last Admin: 06/24/22 14:14 Dose: 25 mg Insulin Glargine (Insulin Glargine,Hum.Rec.Anlog 100 Unit/Ml 10 Ml Vial) 25 unit SUBCUT DAILY [facility] Last Admin: 06/25/22 08:59 Dose: 25 unit Insulin Human Lispro (Insulin Lispro 100 Unit/Ml 3 Ml Vial) 0.1 - 10 unit SUBCUT QIDACHS [facility]; Protocol Last Admin: 06/25/22 17:37 Dose: 6 unit Latanoprost (Latanoprost 0.005 % Ophth Sade 2.5 Ml Drops) 1 drop EYE-BOTH BEDTIME [facility] Last Admin: 06/24/22 20:02 Dose: 1 drop Levothyroxine Sodium (Levothyroxine Sodium 25 Mcg Tablet) 25 mcg PO DAILY@0600 [facility] Last Admin: 06/25/22 06:10 Dose: 25 mcg Magnesium Hydroxide (Milk Of Magnesia 30 Ml Oral.Susp) 30 ml PO DAILY PRN PRN Reason: Constipation Last Admin: 06/20/22 04:35 Dose: 30 ml Melatonin (Melatonin 3 Mg Tablet) 9 mg PO BEDTIME PRN PRN Reason: Insomnia Last Admin: 06/24/22 20:04 Dose: 9 mg Nicotine (Nicotine 21 Mg Patch.Td24) 21 mg TRANSDERMA DAILY [facility] Last Admin: 06/25/22 09:04 Dose: Not Given Nicotine Polacrilex (Nicotine Polacrilex 2 Mg Gum) 4 mg BUCCAL Q2H PRN PRN Reason: Nicotine Cravings Pt Own (Brimonidine [Alphagan P] 0.1 % Drops) 1 drop EYE-BOTH BID [facility] Last Admin: 06/25/22 08:58 Dose: 1 drop Pt Own (Advair Hfa 2 (Inhalation)) 2 inhalation INHALE RBID [facility] Last Admin: 06/25/22 20:28 Dose: 2 inhalation Omeprazole (Omeprazole 20 Mg Capsule.Dr) 20 mg PO DAILY@0630 [facility] Last Admin: 06/25/22 06:10 Dose: 20 mg Pioglitazone HCl (Pioglitazone Hcl 15 Mg Tablet) 15 mg PO DAILY@1700 [facility] Last Admin: 06/25/22 19:36 Dose: 15 mg Quetiapine Fumarate (Quetiapine Fumarate 25 Mg Tablet) 75 mg PO BEDTIME [facility] Last Admin: 06/24/22 20:02 Dose: 75 mg Senna (Sennosides 8.6 Mg Tablet) 17.2 mg PO DAILY [facility] Last Admin: 06/25/22 09:01 Dose: 17.2 mg Vitamin D (Cholecalciferol (Vitamin D3) 25 Mcg Tablet) 50 mcg PO DAILY [facility] Last Admin: 06/25/22 09:01 Dose: 50 mcg Allergies Allergies Allergy/AdvReac Type Severity Reaction Status Date / Time ziprasidone [From Geodon] Allergy Mild RASH-PALPIT Verified 06/03/22 10:44 ATIONS aspirin [ASPIRIN] Allergy Unknown GI bleed, Verified 06/03/22 10:44 stomach upset azithromycin Allergy Unknown facial Verified 06/03/22 10:44 swelling cephalexin [From KEFLEX] Allergy Unknown can't Verified 06/03/22 10:44 remember ibuprofen [IBUPROFEN] Allergy Unknown UNKNOWN, Verified 06/03/22 10:44 stomach upset lisinopril Allergy Unknown cough Verified 06/03/22 10:44 metformin [METFORMIN] Allergy Unknown NAUSEA & Verified 06/03/22 10:44 VOMITING, GI upset valsartan [From Diovan] Allergy Unknown hives Verified 06/03/22 10:44 NSAIDS (Non-Steroidal AdvReac Unknown HX OF GI Verified 06/03/22 10:44 Anti-Inflamma BLEED [NSAIDS (NON-STEROIDAL ANTI-INFLAMMA] tramadol [Ultram] AdvReac Unknown GI upset Verified 06/03/22 10:44 Assessment & Plan Assessment & Plan (1) Lower extremity pain: Status: Acute Code(s): M79.606 - Pain in leg, unspecified Plan 71-year-old female who is admitted to [facility] for management of suicidal ideation, diagnosed with COVID infection currently in isolation, we are asked to see this patient in regards to left lower extremity pain as as well as swelling # left lower extremity swelling /pain - no evidence of cellulitis, negative for edema, warmth, no pitting edema - venous duplex bilaterally negative for any evidence of DVT - this is likely secondary to her diabetic neuropathy - I would recommend gabapentin small dose at bedtime - will add BNP although less likely to be heart failure thank you for this consult, will sign off on this consult, please contact hospitalist office for any further questions 06/24/22 Continue current plan Monitor COVID 06/25/22 Amoxicillin 500 mg bid for 10 days Patient educated on: therapeutic strategies and medical condition Informed Consent: understands and further education needed Reason for contiued inpatient stay Substantial Risk for: med/psych decompensation Time Spent With Patient Time: Total time managing care of this patient today _20___ minutes.
[2022-06-25] MEDS: Latanoprost 0.005 % Ophth Sol 2.5 ML DROPS 1 DROP EYE-BOTH (20:55)
[2022-06-25] MEDS: QUEtiapine Fumarate 25 MG TABLET 75 MG PO (20:56)
[2022-06-25] MEDS: Acetaminophen 325 MG TABLET 650 MG PO (23:54)
[2022-06-26] MEDS: Melatonin 3 MG TABLET 9 MG PO (02:07)
[2022-06-26] MEDS: Enoxaparin Sodium 40 MG/0.4 ML SYRINGE SUBCUT (09:14)
[2022-06-26] MEDS: ARIPiprazole 15 MG TABLET PO (09:14)
[2022-06-26] MEDS: Cholecalciferol (Vitamin D3) 25 MCG TABLET 50 MCG PO (09:14)
[2022-06-26] MEDS: Omeprazole 20 MG CAPSULE.DR PO (09:14)
[2022-06-26] MEDS: Amoxicillin 500 MG CAPSULE PO ×2 (09:15→19:57)
[2022-06-26] MEDS: Sennosides 8.6 MG TABLET 17.2 MG PO (09:15)
[2022-06-26] MEDS: Levothyroxine Sodium 25 MCG TABLET PO (09:15)
[2022-06-26] MEDS: Atorvastatin Calcium 40 MG TABLET PO (09:15)
[2022-06-26] MEDS: Empagliflozin 25 MG TABLET PO (09:15)
[2022-06-26] MEDS: Fenofibrate 160 MG TABLET PO (09:15)
[2022-06-26] MEDS: Docusate Sodium 100 MG CAPSULE PO ×3 (09:15→22:00)
[2022-06-26] MEDS: Cyanocobalamin (Vitamin B-12) 500 MCG TABLET PO (09:15)
[2022-06-26] MEDS: Gabapentin 600 MG TABLET PO ×3 (09:15→22:00)
[2022-06-26 09:55] VITALS: BP 121/57; PULSE 102; RESP 20; TEMP 36.2; O2SAT 93
[2022-06-26] MEDS: clonazePAM 0.5 MG TABLET PO ×3 (10:08→22:01)
[2022-06-26] MEDS: Insulin Glargine,Hum.rec.anlog 100 UNIT/ML 10 ML VIAL 25 UNIT SUBCUT (10:10)
[2022-06-26] MEDS: Insulin Lispro 100 UNIT/ML 3 ML VIAL SUBCUT ×2 (10:24→22:28)
[2022-06-26] MEDS: hydrOXYzine HCL 25 MG TABLET PO (12:44)
[2022-06-26 12:58] LABS: Glucose, Whole Blood 196 mg/dL (60-115)
[2022-06-26 12:58] LABS: Glucose, Whole Blood 166 mg/dL (60-115)
[2022-06-26] MEDS: Mag&Al/Sim/Diphenhyd/Lidocaine 10 ML ORAL.SUSP PO (14:29)
[2022-06-26] MEDS: Acetaminophen 325 MG TABLET 650 MG PO (17:08)
--- NOTE | 2022-06-26 17:51 | P.PNPSI_ITS ---
Subjective Subjective Date of Service: 06/26/22 Reason For Visit: SI Subjective Notes: Conditional Voluntary Interim History: Reports improved sx of COVID-19 but with feeling dry mouth and dry eyes. Mouth spray and natural tears ordered. Reports mood to be stable. After tw met with pt team reported increase in lability, anger that abdiel perez were not availab le from dietary and they needs to remain on isolation due to COVID. Demanding to leave, team allowed her to watch TV in group room, akash Lanier accepted from team. Abilify increased. Mental Status Exam Mental Status Exam Patient Appearance: Appropriate Patient Orientation: Person, Place, Time and Situation Level of Consciousness: Alert Patient Behavior: Talkative, Distractible and Good Eye Contact Mood Description: Hostile, Labile and Apprehensive Affect Description: Labile and Apprehensive Patient Cognition Impaired: No Ability to Follow Directions: Good Speech Pattern: Spontaneous Speech Memory Description: Intact Hallucinations: None Delusions: Not Present Thought Process: Intact Thought Content: positive for Intact Depressive Symptoms: Increased Anxiety Abnormal Motor Activity Signs and Symptoms: Restlessness Judgement: Fair Diagnostics Vital Signs (24Hr): Vital Signs - 24 hr 06/25/22 18:00 06/26/22 09:55 Temperature 97.2 F 97.2 F Pulse Rate 81 102 H Respiratory Rate 16 20 Blood Pressure 126/78 121/57 L Pulse Oximetry 98 93 Oxygen Delivery Method Room Air Nasal Cannula Oxygen Flow Rate 2 BMI result Body Mass Index 30.9 Labs Results: 06/16/22 20:28 06/25/22 08:14 Labs: Laboratory Results - last 48 hr 06/24/22 06/25/22 06/25/22 20:15 08:14 08:37 Sodium 140 Potassium 4.8 Chloride 102 Carbon Dioxide 32 H Anion Gap 11 L BUN 19 H D Creatinine 0.94 Estim Creat Clear Calc 60.9 Estimated GFR 59 POC Glucose 210 H 172 H Random Glucose 159 H Calcium 9.4 06/25/22 06/25/22 06/25/22 12:11 17:21 20:09 Sodium Potassium Chloride Carbon Dioxide Anion Gap BUN Creatinine Estim Creat Clear Calc Estimated GFR POC Glucose 218 H 260 H 213 H Random Glucose Calcium 06/26/22 06/26/22 09:22 12:37 Sodium Potassium Chloride Carbon Dioxide Anion Gap BUN Creatinine Estim Creat Clear Calc Estimated GFR POC Glucose 196 H 166 H Random Glucose Calcium Imaging Radiology Impressions: ITS Impressions Chest X-Ray 06/16/22 20:45 IMPRESSION: Hyperinflated lungs with platelike atelectasis left lung base. Venous Duplex 06/23/22 21:19 IMPRESSION: No DVT demonstrated in the bilateral lower extremity. Medications Medications Current Medications Acetaminophen (Acetaminophen 325 Mg Tablet) 650 mg PO Q6H PRN PRN Reason: Headache/Pain Mild Scale (1-3) Last Admin: 06/26/22 17:08 Dose: 650 mg Al Hydroxide/Mg Hydroxide (Magnesium Hydrox/Alum Hydrox 30 Ml Oral.Susp) 30 ml PO Q6H PRN PRN Reason: Heartburn/Nausea Amoxicillin (Amoxicillin 500 Mg Capsule) 500 mg PO Q12H [facility] Stop: 07/05/22 21:00 Last Admin: 06/26/22 09:15 Dose: 500 mg Aripiprazole (Aripiprazole 20 Mg Tablet) 20 mg PO DAILY [facility] Artificial Tears (Artificial Tears 15 Ml Drops) 2 drop EYE-BOTH Q4H PRN PRN Reason: Dry Eyes Atorvastatin Calcium (Atorvastatin Calcium 40 Mg Tablet) 40 mg PO DAILY [facility] Last Admin: 06/26/22 09:15 Dose: 40 mg Benzocaine (Throat Lozenge, Medicated Lozenge) 1 lozenge MUCOUS MEM Q2H PRN PRN Reason: Sore Throat Last Admin: 06/25/22 00:49 Dose: 1 lozenge Benzonatate (Benzonatate 100 Mg Capsule) 100 mg PO TID PRN PRN Reason: cough Last Admin: 06/20/22 22:39 Dose: 100 mg Bisacodyl (Bisacodyl 5 Mg Tablet.Dr) 10 mg PO BEDTIME PRN PRN Reason: constipation Last Admin: 06/20/22 23:48 Dose: 5 mg Clonazepam (Clonazepam 0.5 Mg Tablet) 0.5 mg PO BID [facility] Last Admin: 06/26/22 10:08 Dose: 0.5 mg Cyanocobalamin (Cyanocobalamin (Vitamin B-12) 500 Mcg Tablet) 500 mcg PO DAILY [facility] Last Admin: 06/26/22 09:15 Dose: 500 mcg Docusate Sodium (Docusate Sodium 100 Mg Capsule) 100 mg PO TID [facility] Last Admin: 06/26/22 14:30 Dose: 100 mg Empagliflozin (Empagliflozin 25 Mg Tablet) 25 mg PO DAILY [facility] Last Admin: 06/26/22 09:15 Dose: 25 mg Enoxaparin Sodium (Enoxaparin Sodium 40 Mg/0.4 Ml Syringe) 40 mg SUBCUT Q24H [facility] Last Admin: 06/26/22 09:14 Dose: 40 mg Fenofibrate (Fenofibrate 160 Mg Tablet) 160 mg PO DAILY [facility] Last Admin: 06/26/22 09:15 Dose: 160 mg Gabapentin (Gabapentin 600 Mg Tablet) 600 mg PO TID [facility] Last Admin: 06/26/22 14:30 Dose: 600 mg Guaifenesin (Guaifenesin 200 Mg/10 Ml 10 Ml Liquid) 10 ml PO Q6H PRN PRN Reason: Cough Hydroxyzine HCl (Hydroxyzine Hcl 25 Mg Tablet) 25 mg PO Q6H PRN PRN Reason: Anxiety Last Admin: 06/26/22 12:44 Dose: 25 mg Insulin Glargine (Insulin Glargine,Hum.Rec.Anlog 100 Unit/Ml 10 Ml Vial) 25 unit SUBCUT DAILY [facility] Last Admin: 06/26/22 10:10 Dose: 25 unit Insulin Human Lispro (Insulin Lispro 100 Unit/Ml 3 Ml Vial) 0.1 - 10 unit SUBCUT QIDACHS [facility]; Protocol Last Admin: 06/26/22 12:41 Dose: Not Given Latanoprost (Latanoprost 0.005 % Ophth Sade 2.5 Ml Drops) 1 drop EYE-BOTH BEDTIM E [facility] Last Admin: 06/25/22 20:55 Dose: 1 drop Levothyroxine Sodium (Levothyroxine Sodium 25 Mcg Tablet) 25 mcg PO DAILY@0600 [facility] Last Admin: 06/26/22 09:15 Dose: 25 mcg Magnesium Hydroxide (Milk Of Magnesia 30 Ml Oral.Susp) 30 ml PO DAILY PRN PRN Reason: Constipation Last Admin: 06/20/22 04:35 Dose: 30 ml Melatonin (Melatonin 3 Mg Tablet) 9 mg PO BEDTIME PRN PRN Reason: Insomnia Last Admin: 06/26/22 02:07 Dose: 9 mg Nicotine (Nicotine 21 Mg Patch.Td24) 21 mg TRANSDERMA DAILY [facility] Last Admin: 06/26/22 10:22 Dose: Not Given Nicotine Polacrilex (Nicotine Polacrilex 2 Mg Gum) 4 mg BUCCAL Q2H PRN PRN Reason: Nicotine Cravings Pt Own (Brimonidine [Alphagan P] 0.1 % Drops) 1 drop EYE-BOTH BID [facility] Last Admin: 06/26/22 10:23 Dose: 1 drop Pt Own (Advair Hfa 2 (Inhalation)) 2 inhalation INHALE RBID [facility] Last Admin: 06/26/22 10:24 Dose: 2 inhalation Omeprazole (Omeprazole 20 Mg Capsule.Dr) 20 mg PO DAILY@0630 [facility] Last Admin: 06/26/22 09:14 Dose: 20 mg Pioglitazone HCl (Pioglitazone Hcl 15 Mg Tablet) 15 mg PO DAILY@1700 [facility] Last Admin: 06/25/22 19:36 Dose: 15 mg Quetiapine Fumarate (Quetiapine Fumarate 25 Mg Tablet) 75 mg PO BEDTIME [facility] Last Admin: 06/25/22 20:56 Dose: 75 mg Saliva Substitute (Dry Mouth [place] 60 Ml [place]) 1 spray MUCOUS MEM Q2H PRN PRN Reason: Dry Mouth Senna (Sennosides 8.6 Mg Tablet) 17.2 mg PO DAILY [facility] Last Admin: 06/26/22 09:15 Dose: 17.2 mg Vitamin D (Cholecalciferol (Vitamin D3) 25 Mcg Tablet) 50 mcg PO DAILY [facility] Last Admin: 06/26/22 09:14 Dose: 50 mcg Allergies Allergies Allergy/AdvReac Type Severity Reaction Status Date / Time ziprasidone [From Geodon] Allergy Mild RASH-PALPIT Verified 06/03/22 10:44 ATIONS aspirin [ASPIRIN] Allergy Unknown GI bleed, Verified 06/03/22 10:44 stomach upset azithromycin Allergy Unknown facial Verified 06/03/22 10:44 swelling cephalexin [From KEFLEX] Allergy Unknown can't Verified 06/03/22 10:44 remember ibuprofen [IBUPROFEN] Allergy Unknown UNKNOWN, Verified 06/03/22 10:44 stomach upset lisinopril Allergy Unknown cough Verified 06/03/22 10:44 metformin [METFORMIN] Allergy Unknown NAUSEA & Verified 06/03/22 10:44 VOMITING, GI upset valsartan [From Diovan] Allergy Unknown hives Verified 06/03/22 10:44 NSAIDS (Non-Steroidal AdvReac Unknown HX OF GI Verified 06/03/22 10:44 Anti-Inflamma BLEED [NSAIDS (NON-STEROIDAL ANTI-INFLAMMA] tramadol [Ultram] AdvReac Unknown GI upset Verified 06/03/22 10:44 Assessment & Plan Assessment & Plan (1) Lower extremity pain: Status: Acute Code(s): M79.606 - Pain in leg, unspecified Plan 71-year-old female who is admitted to [facility] for management of suicidal ideation, diagnosed with COVID infection currently in isolation, we are asked to see this patient in regards to left lower extremity pain as as well as swelling # left lower extremity swelling /pain - no evidence of cellulitis, negative for edema, warmth, no pitting edema - venous duplex bilaterally negative for any evidence of DVT - this is likely secondary to her diabetic neuropathy - I would recommend gabapentin small dose at bedtime - will add BNP although less likely to be heart failure thank you for this consult, will sign off on this consult, please contact hospitalist office for any further questions 06/24/22 Continue current plan Monitor COVID 06/25/22 Amoxicillin 500 mg bid for 10 days 06/26/22 Increase Abilify to 20 mg daily Patient educated on: therapeutic strategies and medical condition Informed Consent: further education needed Reason for contiued inpatient stay Substantial Risk for: med/psych decompensation Time Spent With Patient Time: Total time managing care of this patient today __20__ minutes.
[2022-06-26 18:00] VITALS: RESP 16
--- NOTE | 2022-06-26 19:42 | PC.NURSE ---
pt had an outburst and started roaming the hallways. pt was asked to go back to room, but was angry when redirected. pt argued with staff in the hallways about when she could leave. pt was offered to watch TV and went there after 10 minutes of arguing. pt refused her POC, vitals,and 4pm/5pm medications. pt reported I just want to go home and I'm tired of being here.
[2022-06-26] MEDS: QUEtiapine Fumarate 25 MG TABLET 75 MG PO (22:01)
[2022-06-26] MEDS: Latanoprost 0.005 % Ophth Sol 2.5 ML DROPS 1 DROP EYE-BOTH (22:03)
[2022-06-26 22:23] LABS: Glucose, Whole Blood 249 mg/dL (60-115)
[2022-06-27] MEDS: Levothyroxine Sodium 25 MCG TABLET PO (06:05)
[2022-06-27] MEDS: Omeprazole 20 MG CAPSULE.DR PO (06:05)
[2022-06-27] MEDS: Acetaminophen 325 MG TABLET 650 MG PO (06:05)
[2022-06-27] MEDS: Amoxicillin 500 MG CAPSULE PO ×2 (06:05→17:34)
[2022-06-27 08:06] VITALS: BP 108/53; PULSE 78; RESP 16; TEMP 36.4; O2SAT 93
[2022-06-27 08:18] LABS: Glucose, Whole Blood 141 mg/dL (60-115)
[2022-06-27] MEDS: Insulin Glargine,Hum.rec.anlog 100 UNIT/ML 10 ML VIAL 25 UNIT SUBCUT (08:59)
[2022-06-27] MEDS: Enoxaparin Sodium 40 MG/0.4 ML SYRINGE SUBCUT (08:59)
[2022-06-27] MEDS: Sennosides 8.6 MG TABLET 17.2 MG PO (09:00)
[2022-06-27] MEDS: Docusate Sodium 100 MG CAPSULE PO ×3 (09:00→20:53)
[2022-06-27] MEDS: Fenofibrate 160 MG TABLET PO (09:00)
[2022-06-27] MEDS: clonazePAM 0.5 MG TABLET PO ×2 (09:00→20:53)
[2022-06-27] MEDS: Cholecalciferol (Vitamin D3) 25 MCG TABLET 50 MCG PO (09:00)
[2022-06-27] MEDS: Empagliflozin 25 MG TABLET PO (09:00)
[2022-06-27] MEDS: Cyanocobalamin (Vitamin B-12) 500 MCG TABLET PO (09:00)
[2022-06-27] MEDS: Gabapentin 600 MG TABLET PO ×3 (09:00→20:53)
[2022-06-27] MEDS: ARIPiprazole 20 MG TABLET PO (09:00)
[2022-06-27] MEDS: Atorvastatin Calcium 40 MG TABLET PO (09:00)
[2022-06-27] MEDS: hydrOXYzine HCL 25 MG TABLET PO (11:13)
[2022-06-27 12:41] LABS: Glucose, Whole Blood 212 mg/dL (60-115)
[2022-06-27] MEDS: Insulin Lispro 100 UNIT/ML 3 ML VIAL SUBCUT ×3 (12:57→20:52)
[2022-06-27 17:19] LABS: Glucose, Whole Blood 262 mg/dL (60-115)
[2022-06-27 18:00] VITALS: BP 113/57; PULSE 101; RESP 16; TEMP 36.6; O2SAT 93
--- NOTE | 2022-06-27 18:14 | HO.PSYCHPN ---
Subjective Subjective Date of Service: 06/27/22 Reason For Visit: SI Subjective Notes: Conditional Voluntary Healthcare Proxy: No Guardianship: No Medical Problems Affecting Mental Status: No Interim History: Irritable last evening due to having no abdiel crackers for her snack. Discussed today how the quarantine has triggered her and her lability. Abilify increased to 20 mg daily Pt demanding discharge at times-encouraged to wait until 1/3 when [facility] can be contacted Medication Compliance: Yes Side effects from medications: No Attending Groups: No Review of Systems Acute medical concerns: No covid sx improved Medical Review of Systems: unchanged Mental Status Exam Mental Status Exam Patient Appearance: Appropriate Patient Orientation: Person, Place, Time and Situation Level of Consciousness: Alert Patient Behavior: Talkative, Distractible and Good Eye Contact Mood Description: Hostile, Labile and Apprehensive Affect Description: Labile and Apprehensive Patient Cognition Impaired: No Ability to Follow Directions: Good Speech Pattern: Spontaneous Speech Memory Description: Intact Hallucinations: None Delusions: Not Present Thought Process: Intact Thought Content: positive for Intact Depressive Symptoms: Increased Anxiety Abnormal Motor Activity Signs and Symptoms: Restlessness Judgement: Fair Diagnostics Vital Signs (24Hr): Vital Signs - 24 hr 06/27/22 08:06 Temperature 97.6 F Pulse Rate 78 Respiratory Rate 16 Blood Pressure 108/53 L Pulse Oximetry 93 Oxygen Delivery Method Room Air BMI result Body Mass Index 30.9 Labs Results: 06/16/22 20:28 06/25/22 08:14 Labs: Laboratory Results - last 48 hr 06/25/22 06/26/22 06/26/22 20:09 09:22 12:37 POC Glucose 213 H 196 H 166 H 06/26/22 06/27/22 06/27/22 22:16 08:10 12:34 POC Glucose 249 H 141 H 212 H 06/27/22 17:09 POC Glucose 262 H Imaging Radiology Impressions: ITS Impressions Chest X-Ray 06/16/22 20:45 IMPRESSION: Hyperinflated lungs with platelike atelectasis left lung base. Venous Duplex 06/23/22 21:19 IMPRESSION: No DVT demonstrated in the bilateral lower extremity. Medications Medications Current Medications Acetaminophen (Acetaminophen 325 Mg Tablet) 650 mg PO Q6H PRN PRN Reason: Headache/Pain Mild Scale (1-3) Last Admin: 01/01/23 06:05 Dose: 650 mg Al Hydroxide/Mg Hydroxide (Magnesium Hydrox/Alum Hydrox 30 Ml Oral.Susp) 30 ml PO Q6H PRN PRN Reason: Heartburn/Nausea Amoxicillin (Amoxicillin 500 Mg Capsule) 500 mg PO Q12H [facility] Stop: 07/05/22 21:00 Last Admin: 06/27/22 17:34 Dose: 500 mg Aripiprazole (Aripiprazole 20 Mg Tablet) 20 mg PO DAILY [facility] Last Admin: 06/27/22 09:00 Dose: 20 mg Artificial Tears (Artificial Tears 15 Ml Drops) 2 drop EYE-BOTH Q4H PRN PRN Reason: Dry Eyes Atorvastatin Calcium (Atorvastatin Calcium 40 Mg Tablet) 40 mg PO DAILY [facility] Last Admin: 06/27/22 09:00 Dose: 40 mg Benzocaine (Throat Lozenge, Medicated Lozenge) 1 lozenge MUCOUS MEM Q2H PRN PRN Reason: Sore Throat Last Admin: 06/25/22 00:49 Dose: 1 lozenge Benzonatate (Benzonatate 100 Mg Capsule) 100 mg PO TID PRN PRN Reason: cough Last Admin: 06/20/22 22:39 Dose: 100 mg Bisacodyl (Bisacodyl 5 Mg Tablet.Dr) 10 mg PO BEDTIME PRN PRN Reason: constipation Last Admin: 06/20/22 23:48 Dose: 5 mg Clonazepam (Clonazepam 0.5 Mg Tablet) 0.5 mg PO BID [facility] Last Admin: 06/27/22 09:00 Dose: 0.5 mg Cyanocobalamin (Cyanocobalamin (Vitamin B-12) 500 Mcg Tablet) 500 mcg PO DAILY [facility] Last Admin: 06/27/22 09:00 Dose: 500 mcg Docusate Sodium (Docusate Sodium 100 Mg Capsule) 100 mg PO TID [facility] Last Admin: 06/27/22 14:23 Dose: 100 mg Empagliflozin (Empagliflozin 25 Mg Tablet) 25 mg PO DAILY [facility] Last Admin: 06/27/22 09:00 Dose: 25 mg Enoxaparin Sodium (Enoxaparin Sodium 40 Mg/0.4 Ml Syringe) 40 mg SUBCUT Q24H [facility] Last Admin: 06/27/22 08:59 Dose: 40 mg Fenofibrate (Fenofibrate 160 Mg Tablet) 160 mg PO DAILY [facility] Last Admin: 06/27/22 09:00 Dose: 160 mg Gabapentin (Gabapentin 600 Mg Tablet) 600 mg PO TID [facility] Last Admin: 06/27/22 14:23 Dose: 600 mg Guaifenesin (Guaifenesin 200 Mg/10 Ml 10 Ml Liquid) 10 ml PO Q6H PRN PRN Reason: Cough Hydroxyzine HCl (Hydroxyzine Hcl 25 Mg Tablet) 25 mg PO Q6H PRN PRN Reason: Anxiety Last Admin: 06/27/22 11:13 Dose: 25 mg Insulin Glargine (Insulin Glargine,Hum.Rec.Anlog 100 Unit/Ml 10 Ml Vial) 25 unit SUBCUT DAILY [facility] Last Admin: 06/27/22 08:59 Dose: 25 unit Insulin Human Lispro (Insulin Lispro 100 Unit/Ml 3 Ml Vial) 0.1 - 10 unit SUBCUT QIDACHS [facility]; Protocol Last Admin: 06/27/22 17:34 Dose: 6 unit Latanoprost (Latanoprost 0.005 % Ophth Sade 2.5 Ml Drops) 1 drop EYE-BOTH BEDTIME [facility] Last Admin: 06/26/22 22:03 Dose: 1 drop Levothyroxine Sodium (Levothyroxine Sodium 25 Mcg Tablet) 25 mcg PO DAILY@0600 [facility] Last Admin: 06/27/22 06:05 Dose: 25 mcg Magnesium Hydroxide (Milk Of Magnesia 30 Ml Oral.Susp) 30 ml PO DAILY PRN PRN Reason: Constipation Last Admin: 06/20/22 04:35 Dose: 30 ml Melatonin (Melatonin 3 Mg Tablet) 9 mg PO BEDTIME PRN PRN Reason: Insomnia Last Admin: 06/26/22 02:07 Dose: 9 mg Nicotine (Nicotine 21 Mg Patch.Td24) 21 mg TRANSDERMA DAILY [facility] Last Admin: 06/27/22 09:01 Dose: Not Given Nicotine Polacrilex (Nicotine Polacrilex 2 Mg Gum) 4 mg BUCCAL Q2H PRN PRN Reason: Nicotine Cravings Pt Own (Brimonidine [Alphagan P] 0.1 % Drops) 1 drop EYE-BOTH BID [facility] Last Admin: 06/27/22 09:04 Dose: 1 drop Pt Own (Advair Hfa 2 (Inhalation)) 2 inhalation INHALE RBID [facility] Last Admin: 06/27/22 09:04 Dose: 2 inhalation Omeprazole (Omeprazole 20 Mg Capsule.Dr) 20 mg PO DAILY@0630 [facility] Last Admin: 06/27/22 06:05 Dose: 20 mg Pioglitazone HCl (Pioglitazone Hcl 15 Mg Tablet) 15 mg PO DAILY@1700 [facility] Last Admin: 06/27/22 17:35 Dose: 15 mg Quetiapine Fumarate (Quetiapine Fumarate 25 Mg Tablet) 75 mg PO BEDTIME [facility] Last Admin: 06/26/22 22:01 Dose: 75 mg Saliva Substitute (Dry Mouth [place] 60 Ml [place]) 1 spray MUCOUS MEM Q2H PRN PRN Reason: Dry Mouth Senna (Sennosides 8.6 Mg Tablet) 17.2 mg PO DAILY [facility] Last Admin: 06/27/22 09:00 Dose: 17.2 mg Vitamin D (Cholecalciferol (Vitamin D3) 25 Mcg Tablet) 50 mcg PO DAILY [facility] Last Admin: 06/27/22 09:00 Dose: 50 mcg Allergies Allergies Allergy/AdvReac Type Severity Reaction Status Date / Time ziprasidone [From Geodon] Allergy Mild RASH-PALPIT Verified 06/03/22 10:44 ATIONS aspirin [ASPIRIN] Allergy Unknown GI bleed, Verified 06/03/22 10:44 stomach upset azithromycin Allergy Unknown facial Verified 06/03/22 10:44 swelling cephalexin [From KEFLEX] Allergy Unknown can't Verified 06/03/22 10:44 remember ibuprofen [IBUPROFEN] Allergy Unknown UNKNOWN, Verified 06/03/22 10:44 stomach upset lisinopril Allergy Unknown cough Verified 06/03/22 10:44 metformin [METFORMIN] Allergy Unknown NAUSEA & Verified 06/03/22 10:44 VOMITING, GI upset valsartan [From Diovan] Allergy Unknown hives Verified 06/03/22 10:44 NSAIDS (Non-Steroidal AdvReac Unknown HX OF GI Verified 06/03/22 10:44 Anti-Inflamma BLEED [NSAIDS (NON-STEROIDAL ANTI-INFLAMMA] tramadol [Ultram] AdvReac Unknown GI upset Verified 06/03/22 10:44 Assessment & Plan Assessment & Plan (1) Lower extremity pain: Status: Acute Code(s): M79.606 - Pain in leg, unspecified Plan 71-year-old female who is admitted to [facility] for management of suicidal ideation, diagnosed with COVID infection currently in isolation, we are asked to see this patient in regards to left lower extremity pain as as well as swelling # left lower extremity swelling /pain - no evidence of cellulitis, negative for edema, warmth, no pitting edema - venous duplex bilaterally negative for any evidence of DVT - this is likely secondary to her diabetic neuropathy - I would recommend gabapentin small dose at bedtime - will add BNP although less likely to be heart failure thank you for this consult, will sign off on this consult, please contact hospitalist office for any further questions 06/24/22 Continue current plan Monitor COVID 06/25/22 Amoxicillin 500 mg bid for 10 days 06/26/22 Increase Abilify to 20 mg daily 06/27/22: Discharge planning. Continue current regime Informed Consent: understands Reason for contiued inpatient stay Substantial Risk for: med/psych decompensation Time Spent With Patient Time: Total time managing care of this patient today __20__ minutes.
[2022-06-27 20:46] LABS: Glucose, Whole Blood 246 mg/dL (60-115)
[2022-06-27] MEDS: Latanoprost 0.005 % Ophth Sol 2.5 ML DROPS 1 DROP EYE-BOTH (20:52)
[2022-06-27] MEDS: QUEtiapine Fumarate 25 MG TABLET 75 MG PO (20:53)
[2022-06-28] MEDS: Omeprazole 20 MG CAPSULE.DR PO (06:42)
[2022-06-28] MEDS: Levothyroxine Sodium 25 MCG TABLET PO (06:42)
[2022-06-28] MEDS: Amoxicillin 500 MG CAPSULE PO ×2 (06:42→17:45)
[2022-06-28 08:24] LABS: Glucose, Whole Blood 215 mg/dL (60-115)
[2022-06-28 09:06] VITALS: BP 116/53; PULSE 81; RESP 18; TEMP 36.6; O2SAT 93
[2022-06-28] MEDS: Insulin Lispro 100 UNIT/ML 3 ML VIAL SUBCUT ×4 (09:09→22:38)
[2022-06-28] MEDS: Insulin Glargine,Hum.rec.anlog 100 UNIT/ML 10 ML VIAL 25 UNIT SUBCUT (09:09)
[2022-06-28] MEDS: Atorvastatin Calcium 40 MG TABLET PO (09:11)
[2022-06-28] MEDS: Fenofibrate 160 MG TABLET PO (09:11)
[2022-06-28] MEDS: Cholecalciferol (Vitamin D3) 25 MCG TABLET 50 MCG PO (09:11)
[2022-06-28] MEDS: clonazePAM 0.5 MG TABLET PO ×2 (09:11→22:10)
[2022-06-28] MEDS: Docusate Sodium 100 MG CAPSULE PO ×3 (09:11→22:09)
[2022-06-28] MEDS: ARIPiprazole 20 MG TABLET PO (09:11)
[2022-06-28] MEDS: Cyanocobalamin (Vitamin B-12) 500 MCG TABLET PO (09:11)
[2022-06-28] MEDS: Empagliflozin 25 MG TABLET PO (09:12)
[2022-06-28] MEDS: Sennosides 8.6 MG TABLET 17.2 MG PO (09:12)
[2022-06-28] MEDS: Gabapentin 600 MG TABLET PO ×3 (09:12→22:09)
[2022-06-28] MEDS: Enoxaparin Sodium 40 MG/0.4 ML SYRINGE SUBCUT (09:21)
[2022-06-28 12:09] LABS: Glucose, Whole Blood 217 mg/dL (60-115)
[2022-06-28] MEDS: hydrOXYzine HCL 25 MG TABLET PO (14:46)
[2022-06-28] MEDS: Acetaminophen 325 MG TABLET 650 MG PO (16:14)
[2022-06-28 16:51] LABS: Glucose, Whole Blood 204 mg/dL (60-115)
--- NOTE | 2022-06-28 19:11 | P.PNPSI_ITS ---
Subjective Subjective Date of Service: 06/28/22 Reason For Visit: SI Subjective Notes: Conditional Voluntary Healthcare Proxy: No Guardianship: No Medical Problems Affecting Mental Status: No Interim History: Expecting discharge on 06/29. Quarantine has been difficult [employer] delivered her meds to her neighbor over the weekend Calmer and brighter today. No outbursts reported by team to tw. Full med review with pt in anticipation of discharge Medication Compliance: Yes Side effects from medications: No Attending Groups: No Review of Systems Acute medical concerns: No Medical Review of Systems: unchanged Mental Status Exam Mental Status Exam Patient Appearance: Appropriate Patient Orientation: Person, Place, Time and Situation Level of Consciousness: Alert Patient Behavior: Talkative, Distractible and Good Eye Contact Mood Description: Apprehensive Affect Description: Labile and Apprehensive Patient Cognition Impaired: No Ability to Follow Directions: Good Speech Pattern: Spontaneous Speech Memory Description: Intact Hallucinations: None Delusions: Not Present Thought Process: Intact Thought Content: positive for Intact Depressive Symptoms: Increased Anxiety Abnormal Motor Activity Signs and Symptoms: Restlessness Judgement: Fair Diagnostics Vital Signs (24Hr): Vital Signs - 24 hr 06/28/22 09:06 Temperature 97.8 F Pulse Rate 81 Respiratory Rate 18 Blood Pressure 116/53 L Pulse Oximetry 93 Oxygen Delivery Method Room Air BMI result Body Mass Index 30.9 Labs Results: 06/16/22 20:28 06/25/22 08:14 Labs: Laboratory Results - last 48 hr 06/26/22 06/27/22 06/27/22 22:16 08:10 12:34 POC Glucose 249 H 141 H 212 H 06/27/22 06/27/22 06/28/22 17:09 20:42 08:18 POC Glucose 262 H 246 H 215 H 06/28/22 06/28/22 12:04 16:45 POC Glucose 217 H 204 H Imaging Radiology Impressions: ITS Impressions Chest X-Ray 06/16/22 20:45 IMPRESSION: Hyperinflated lungs with platelike atelectasis left lung base. Venous Duplex 06/23/22 21:19 IMPRESSION: No DVT demonstrated in the bilateral lower extremity. Medications Medications Current Medications Acetaminophen (Acetaminophen 325 Mg Tablet) 650 mg PO Q6H PRN PRN Reason: Headache/Pain Mild Scale (1-3) Last Admin: 06/28/22 16:14 Dose: 650 mg Al Hydroxide/Mg Hydroxide (Magnesium Hydrox/Alum Hydrox 30 Ml Oral.Susp) 30 ml PO Q6H PRN PRN Reason: Heartburn/Nausea Amoxicillin (Amoxicillin 500 Mg Capsule) 500 mg PO Q12H [facility] Stop: 07/05/22 21:00 Last Admin: 06/28/22 06:42 Dose: 500 mg Aripiprazole (Aripiprazole 20 Mg Tablet) 20 mg PO DAILY [facility] Last Admin: 06/28/22 09:11 Dose: 20 mg Artificial Tears (Artificial Tears 15 Ml Drops) 2 drop EYE-BOTH Q4H PRN PRN Reason: Dry Eyes Atorvastatin Calcium (Atorvastatin Calcium 40 Mg Tablet) 40 mg PO DAILY [facility] Last Admin: 06/28/22 09:11 Dose: 40 mg Benzocaine (Throat Lozenge, Medicated Lozenge) 1 lozenge MUCOUS MEM Q2H PRN PRN Reason: Sore Throat Last Admin: 06/25/22 00:49 Dose: 1 lozenge Benzonatate (Benzonatate 100 Mg Capsule) 100 mg PO TID PRN PRN Reason: cough Last Admin: 06/20/22 22:39 Dose: 100 mg Bisacodyl (Bisacodyl 5 Mg Tablet.Dr) 10 mg PO BEDTIME PRN PRN Reason: constipation Last Admin: 06/20/22 23:48 Dose: 5 mg Clonazepam (Clonazepam 0.5 Mg Tablet) 0.5 mg PO BID [facility] Last Admin: 06/28/22 09:11 Dose: 0.5 mg Cyanocobalamin (Cyanocobalamin (Vitamin B-12) 500 Mcg Tablet) 500 mcg PO DAILY [facility] Last Admin: 06/28/22 09:11 Dose: 500 mcg Docusate Sodium (Docusate Sodium 100 Mg Capsule) 100 mg PO TID [facility] Last Admin: 06/28/22 14:41 Dose: 100 mg Empagliflozin (Empagliflozin 25 Mg Tablet) 25 mg PO DAILY [facility] Last Admin: 06/28/22 09:12 Dose: 25 mg Enoxaparin Sodium (Enoxaparin Sodium 40 Mg/0.4 Ml Syringe) 40 mg SUBCUT Q24H [facility] Last Admin: 06/28/22 09:21 Dose: 40 mg Fenofibrate (Fenofibrate 160 Mg Tablet) 160 mg PO DAILY [facility] Last Admin: 06/28/22 09:11 Dose: 160 mg Gabapentin (Gabapentin 600 Mg Tablet) 600 mg PO TID [facility] Last Admin: 06/28/22 14:41 Dose: 600 mg Guaifenesin (Guaifenesin 200 Mg/10 Ml 10 Ml Liquid) 10 ml PO Q6H PRN PRN Reason: Cough Guaifenesin/Dextromethorphan (Guaifenesin Dm 600/30 1 Tab Tab.Er.12h) 1 tab PO BID PRN PRN Reason: cough, congestion Hydroxyzine HCl (Hydroxyzine Hcl 25 Mg Tablet) 25 mg PO Q6H PRN PRN Reason: Anxiety Last Admin: 06/28/22 14:46 Dose: 25 mg Insulin Glargine (Insulin Glargine,Hum.Rec.Anlog 100 Unit/Ml 10 Ml Vial) 25 unit SUBCUT DAILY [facility] Last Admin: 06/28/22 09:09 Dose: 25 unit Insulin Human Lispro (Insulin Lispro 100 Unit/Ml 3 Ml Vial) 0.1 - 10 unit SUBCUT QIDACHS [facility]; Protocol Last Admin: 06/28/22 17:30 Dose: 4 unit Latanoprost (Latanoprost 0.005 % Ophth Sade 2.5 Ml Drops) 1 drop EYE-BOTH BEDTIME [facility] Last Admin: 06/27/22 20:52 Dose: 1 drop Levothyroxine Sodium (Levothyroxine Sodium 25 Mcg Tablet) 25 mcg PO DAILY@0600 [facility] Last Admin: 06/28/22 06:42 Dose: 25 mcg Magnesium Hydroxide (Milk Of Magnesia 30 Ml Oral.Susp) 30 ml PO DAILY PRN PRN Reason: Constipation Last Admin: 06/20/22 04:35 Dose: 30 ml Melatonin (Melatonin 3 Mg Tablet) 9 mg PO BEDTIME PRN PRN Reason: Insomnia Last Admin: 06/26/22 02:07 Dose: 9 mg Nicotine (Nicotine 21 Mg Patch.Td24) 21 mg TRANSDERMA DAILY [facility] Last Admin: 06/28/22 09:23 Dose: Not Given Nicotine Polacrilex (Nicotine Polacrilex 2 Mg Gum) 4 mg BUCCAL Q2H PRN PRN Reason: Nicotine Cravings Pt Own (Brimonidine [Alphagan P] 0.1 % Drops) 1 drop EYE-BOTH BID [facility] Last Admin: 06/28/22 09:12 Dose: 1 drop Pt Own (Advair Hfa 2 (Inhalation)) 2 inhalation INHALE RBID [facility] Last Admin: 06/28/22 09:10 Dose: 2 inhalation Omeprazole (Omeprazole 20 Mg Capsule.Dr) 20 mg PO DAILY@0630 [facility] Last Admin: 06/28/22 06:42 Dose: 20 mg Pioglitazone HCl (Pioglitazone Hcl 15 Mg Tablet) 15 mg PO DAILY@1700 [facility] Last Admin: 06/28/22 16:57 Dose: 15 mg Quetiapine Fumarate (Quetiapine Fumarate 25 Mg Tablet) 75 mg PO BEDTIME [facility] Last Admin: 06/27/22 20:53 Dose: 75 mg Saliva Substitute (Dry Mouth [place] 60 Ml [place]) 1 spray MUCOUS MEM Q2H PRN PRN Reason: Dry Mouth Senna (Sennosides 8.6 Mg Tablet) 17.2 mg PO DAILY [facility] Last Admin: 06/28/22 09:12 Dose: 17.2 mg Vitamin D (Cholecalciferol (Vitamin D3) 25 Mcg Tablet) 50 mcg PO DAILY [facility] Last Admin: 06/28/22 09:11 Dose: 50 mcg Allergies Allergies Allergy/AdvReac Type Severity Reaction Status Date / Time ziprasidone [From Geodon] Allergy Mild RASH-PALPIT Verified 06/03/22 10:44 ATIONS aspirin [ASPIRIN] Allergy Unknown GI bleed, Verified 06/03/22 10:44 stomach upset azithromycin Allergy Unknown facial Verified 06/03/22 10:44 swelling cephalexin [From KEFLEX] Allergy Unknown can't Verified 06/03/22 10:44 remember ibuprofen [IBUPROFEN] Allergy Unknown UNKNOWN, Verified 06/03/22 10:44 stomach upset lisinopril Allergy Unknown cough Verified 06/03/22 10:44 metformin [METFORMIN] Allergy Unknown NAUSEA & Verified 06/03/22 10:44 VOMITING, GI upset valsartan [From Diovan] Allergy Unknown hives Verified 06/03/22 10:44 NSAIDS (Non-Steroidal AdvReac Unknown HX OF GI Verified 06/03/22 10:44 Anti-Inflamma BLEED [NSAIDS (NON-STEROIDAL ANTI-INFLAMMA] tramadol [Ultram] AdvReac Unknown GI upset Verified 06/03/22 10:44 Assessment & Plan Assessment & Plan (1) Lower extremity pain: Status: Acute Code(s): M79.606 - Pain in leg, unspecified Plan 71-year-old female who is admitted to [facility] for management of suicidal ideation, diagnosed with COVID infection currently in isolation, we are asked to see this patient in regards to left lower extremity pain as as well as swelling # left lower extremity swelling /pain - no evidence of cellulitis, negative for edema, warmth, no pitting edema - venous duplex bilaterally negative for any evidence of DVT - this is likely secondary to her diabetic neuropathy - I would recommend gabapentin small dose at bedtime - will add BNP although less likely to be heart failure thank you for this consult, will sign off on this consult, please contact hospitalist office for any further questions 06/24/22 Continue current plan Monitor COVID 06/25/22 Amoxicillin 500 mg bid for 10 days 06/26/22 Increase Abilify to 20 mg daily 06/27/22: Discharge planning. Continue current regime 06/28/22: Discharge planning Mucinex prn Informed Consent: understands and further education needed Reason for contiued inpatient stay Substantial Risk for: med/psych decompensation Time Spent With Patient Time: Total time managing care of this patient today ___30_ minutes.
[2022-06-28 22:00] VITALS: BP 139/63; PULSE 83; TEMP 36.3; O2SAT 94
[2022-06-28 22:05] LABS: Glucose, Whole Blood 235 mg/dL (60-115)
[2022-06-28] MEDS: QUEtiapine Fumarate 25 MG TABLET 75 MG PO (22:09)
[2022-06-28] MEDS: Latanoprost 0.005 % Ophth Sol 2.5 ML DROPS 1 DROP EYE-BOTH (22:12)
[2022-06-28] MEDS: Melatonin 3 MG TABLET 9 MG PO (22:39)
[2022-06-29 06:00] VITALS: BP 111/54; PULSE 77; RESP 18; TEMP 37; O2SAT 94
[2022-06-29] MEDS: Levothyroxine Sodium 25 MCG TABLET PO (06:02)
[2022-06-29] MEDS: Omeprazole 20 MG CAPSULE.DR PO (06:02)
[2022-06-29] MEDS: Amoxicillin 500 MG CAPSULE PO ×2 (06:02→17:25)
[2022-06-29 08:39] LABS: Glucose, Whole Blood 209 mg/dL (60-115)
[2022-06-29] MEDS: Atorvastatin Calcium 40 MG TABLET PO (09:28)
[2022-06-29] MEDS: ARIPiprazole 20 MG TABLET PO (09:28)
[2022-06-29] MEDS: Sennosides 8.6 MG TABLET 17.2 MG PO (09:28)
[2022-06-29] MEDS: clonazePAM 0.5 MG TABLET PO ×2 (09:28→22:14)
[2022-06-29] MEDS: Cyanocobalamin (Vitamin B-12) 500 MCG TABLET PO (09:28)
[2022-06-29] MEDS: Cholecalciferol (Vitamin D3) 25 MCG TABLET 50 MCG PO (09:29)
[2022-06-29] MEDS: Fenofibrate 160 MG TABLET PO (09:29)
[2022-06-29] MEDS: Docusate Sodium 100 MG CAPSULE PO ×3 (09:29→22:14)
[2022-06-29] MEDS: Empagliflozin 25 MG TABLET PO (09:29)
[2022-06-29] MEDS: Artificial Tears 15 ML DROPS 2 DROP EYE-BOTH (09:29)
[2022-06-29] MEDS: Gabapentin 600 MG TABLET PO ×3 (09:29→22:14)
--- NOTE | 2022-06-29 12:18 | P.PNPSI_ITS ---
Subjective Subjective Date of Service: 06/29/22 Reason For Visit: SI Subjective Notes: Conditional Voluntary Healthcare Proxy: No Guardianship: No Medical Problems Affecting Mental Status: No Interim History: Labile, upset, angry Wanting to be out of quarantine. [facility], [facility], [facility] have been difficult to coordinate. Team reports these agencies are not getting back to them when they are contacted. Pt tells team that she lost her brother in November and feels very alone without his presence. Ex pressing wanting to as she feels this is hell, there is no heaven and fears she will never see her brother again. Medication Compliance: Yes Side effects from medications: No Attending Groups: No Review of Systems Acute medical concerns: No covid 19 quarantine Medical Review of Systems: unchanged Mental Status Exam Mental Status Exam Patient Appearance: Appropriate Patient Orientation: Person, Place, Time and Situation Level of Consciousness: Alert Patient Behavior: Talkative, Distractible and Good Eye Contact Mood Description: Apprehensive Affect Description: Labile and Apprehensive Patient Cognition Impaired: No Ability to Follow Directions: Good Speech Pattern: Spontaneous Speech Memory Description: Intact Hallucinations: None Delusions: Not Present Thought Process: Intact Thought Content: positive for Intact Depressive Symptoms: Increased Anxiety Abnormal Motor Activity Signs and Symptoms: Restlessness Judgement: Fair Diagnostics Vital Signs (24Hr): Vital Signs - 24 hr 06/28/22 22:00 06/29/22 06:00 Temperature 97.4 F 98.6 F Pulse Rate 83 77 Respiratory Rate 18 Blood Pressure 139/63 111/54 L Pulse Oximetry 94 94 Oxygen Delivery Method Nasal Cannula Nasal Cannula Oxygen Flow Rate 2 2 BMI result Body Mass Index 30.9 Labs Results: 06/16/22 20:28 06/25/22 08:14 Labs: Laboratory Results - last 48 hr 06/27/22 06/27/22 06/27/22 12:34 17:09 20:42 POC Glucose 212 H 262 H 246 H 06/28/22 06/28/22 06/28/22 08:18 12:04 16:45 POC Glucose 215 H 217 H 204 H 06/28/22 06/29/22 21:55 08:30 POC Glucose 235 H 209 H Imaging Radiology Impressions: ITS Impressions Chest X-Ray 06/16/22 20:45 IMPRESSION: Hyperinflated lungs with platelike atelectasis left lung base. Venous Duplex 06/23/22 21:19 IMPRESSION: No DVT demonstrated in the bilateral lower extremity. Medications Medications Current Medications Acetaminophen (Acetaminophen 325 Mg Tablet) 650 mg PO Q6H PRN PRN Reason: Headache/Pain Mild Scale (1-3) Last Admin: 06/28/22 16:14 Dose: 650 mg Al Hydroxide/Mg Hydroxide (Magnesium Hydrox/Alum Hydrox 30 Ml Oral.Susp) 30 ml PO Q6H PRN PRN Reason: Heartburn/Nausea Amoxicillin (Amoxicillin 500 Mg Capsule) 500 mg PO Q12H [facility] Stop: 07/05/22 21:00 Last Admin: 06/29/22 06:02 Dose: 500 mg Aripiprazole (Aripiprazole 20 Mg Tablet) 20 mg PO DAILY [facility] Last Admin: 06/29/22 09:28 Dose: 20 mg Artificial Tears (Artificial Tears 15 Ml Drops) 2 drop EYE-BOTH Q4H PRN PRN Reason: Dry Eyes Last Admin: 06/29/22 09:29 Dose: 2 drop Atorvastatin Calcium (Atorvastatin Calcium 40 Mg Tablet) 40 mg PO DAILY [facility] Last Admin: 06/29/22 09:28 Dose: 40 mg Benzocaine (Throat Lozenge, Medicated Lozenge) 1 lozenge MUCOUS MEM Q2H PRN PRN Reason: Sore Throat Last Admin: 06/25/22 00:49 Dose: 1 lozenge Benzonatate (Benzonatate 100 Mg Capsule) 100 mg PO TID PRN PRN Reason: cough Last Admin: 06/20/22 22:39 Dose: 100 mg Bisacodyl (Bisacodyl 5 Mg Tablet.Dr) 10 mg PO BEDTIME PRN PRN Reason: constipation Last Admin: 06/20/22 23:48 Dose: 5 mg Clonazepam (Clonazepam 0.5 Mg Tablet) 0.5 mg PO BID [facility] Last Admin: 06/29/22 09:28 Dose: 0.5 mg Cyanocobalamin (Cyanocobalamin (Vitamin B-12) 500 Mcg Tablet) 500 mcg PO DAILY [facility] Last Admin: 06/29/22 09:28 Dose: 500 mcg Docusate Sodium (Docusate Sodium 100 Mg Capsule) 100 mg PO TID [facility] Last Admin: 06/29/22 09:29 Dose: 100 mg Empagliflozin (Empagliflozin 25 Mg Tablet) 25 mg PO DAILY [facility] Last Admin: 06/29/22 09:29 Dose: 25 mg Enoxaparin Sodium (Enoxaparin Sodium 40 Mg/0.4 Ml Syringe) 40 mg SUBCUT Q24H [facility] Last Admin: 06/29/22 09:53 Dose: Not Given Fenofibrate (Fenofibrate 160 Mg Tablet) 160 mg PO DAILY [facility] Last Admin: 06/29/22 09:29 Dose: 160 mg Gabapentin (Gabapentin 600 Mg Tablet) 600 mg PO TID [facility] Last Admin: 06/29/22 09:29 Dose: 600 mg Guaifenesin/Dextromethorphan (Guaifenesin Dm 600/30 1 Tab Tab.Er.12h) 1 tab PO BID PRN PRN Reason: cough, congestion Hydroxyzine HCl (Hydroxyzine Hcl 25 Mg Tablet) 25 mg PO Q6H PRN PRN Reason: Anxiety Last Admin: 06/28/22 14:46 Dose: 25 mg Insulin Glargine (Insulin Glargine,Hum.Rec.Anlog 100 Unit/Ml 10 Ml Vial) 25 unit SUBCUT DAILY [facility] Last Admin: 06/29/22 09:53 Dose: Not Given Insulin Human Lispro (Insulin Lispro 100 Unit/Ml 3 Ml Vial) 0.1 - 10 unit SUBCUT QIDACHS [facility]; Protocol Last Admin: 06/29/22 09:51 Dose: Not Given Latanoprost (Latanoprost 0.005 % Ophth Sade 2.5 Ml Drops) 1 drop EYE-BOTH BEDTIME [facility] Last Admin: 06/28/22 22:12 Dose: 1 drop Levothyroxine Sodium (Levothyroxine Sodium 25 Mcg Tablet) 25 mcg PO DAILY@0600 [facility] Last Admin: 06/29/22 06:02 Dose: 25 mcg Magnesium Hydroxide (Milk Of Magnesia 30 Ml Oral.Susp) 30 ml PO DAILY PRN PRN Reason: Constipation Last Admin: 06/20/22 04:35 Dose: 30 ml Melatonin (Melatonin 3 Mg Tablet) 9 mg PO BEDTIME PRN PRN Reason: Insomnia Last Admin: 06/28/22 22:39 Dose: 9 mg Nicotine (Nicotine 21 Mg Patch.Td24) 21 mg TRANSDERMA DAILY [facility] Last Admin: 06/29/22 09:53 Dose: Not Given Nicotine Polacrilex (Nicotine Polacrilex 2 Mg Gum) 4 mg BUCCAL Q2H PRN PRN Reason: Nicotine Cravings Pt Own (Brimonidine [Alphagan P] 0.1 % Drops) 1 drop EYE-BOTH BID [facility] Last Admin: 06/29/22 09:30 Dose: 1 drop Pt Own (Advair Hfa 2 (Inhalation)) 2 inhalation INHALE RBID [facility] Last Admin: 06/29/22 09:53 Dose: Not Given Omeprazole (Omeprazole 20 Mg Capsule.Dr) 20 mg PO DAILY@0630 [facility] Last Admin: 06/29/22 06:02 Dose: 20 mg Pioglitazone HCl (Pioglitazone Hcl 15 Mg Tablet) 15 mg PO DAILY@1700 [facility] Last Admin: 06/28/22 16:57 Dose: 15 mg Quetiapine Fumarate (Quetiapine Fumarate 25 Mg Tablet) 75 mg PO BEDTIME [facility] Last Admin: 06/28/22 22:09 Dose: 75 mg Quetiapine Fumarate (Quetiapine Fumarate 50 Mg Tablet) 50 mg PO BID PRN PRN Reason: agitation Saliva Substitute (Dry Mouth [place] 60 Ml [place]) 1 spray MUCOUS MEM Q2H PRN PRN Reason: Dry Mouth Senna (Sennosides 8.6 Mg Tablet) 17.2 mg PO DAILY [facility] Last Admin: 06/29/22 09:28 Dose: 17.2 mg Vitamin D (Cholecalciferol (Vitamin D3) 25 Mcg Tablet) 50 mcg PO DAILY [facility] Last Admin: 06/29/22 09:29 Dose: 50 mcg Allergies Allergies Allergy/AdvReac Type Severity Reaction Status Date / Time ziprasidone [From Geodon] Allergy Mild RASH-PALPIT Verified 06/03/22 10:44 ATIONS aspirin [ASPIRIN] Allergy Unknown GI bleed, Verified 06/03/22 10:44 stomach upset azithromycin Allergy Unknown facial Verified 06/03/22 10:44 swelling cephalexin [From KEFLEX] Allergy Unknown can't Verified 06/03/22 10:44 remember ibuprofen [IBUPROFEN] Allergy Unknown UNKNOWN, Verified 06/03/22 10:44 stomach upset lisinopril Allergy Unknown cough Verified 06/03/22 10:44 metformin [METFORMIN] Allergy Unknown NAUSEA & Verified 06/03/22 10:44 VOMITING, GI upset valsartan [From Diovan] Allergy Unknown hives Verified 06/03/22 10:44 NSAIDS (Non-Steroidal AdvReac Unknown HX OF GI Verified 06/03/22 10:44 Anti-Inflamma BLEED [NSAIDS (NON-STEROIDAL ANTI-INFLAMMA] tramadol [Ultram] AdvReac Unknown GI upset Verified 06/03/22 10:44 Assessment & Plan Assessment & Plan (1) Lower extremity pain: Status: Acute Code(s): M79.606 - Pain in leg, unspecified Plan 71-year-old female who is admitted to [facility] for management of suicidal ideation, diagnosed with COVID infection currently in isolation, we are asked to see this patient in regards to left lower extremity pain as as well as swelling # left lower extremity swelling /pain - no evidence of cellulitis, negative for edema, warmth, no pitting edema - venous duplex bilaterally negative for any evidence of DVT - this is likely secondary to her diabetic neuropathy - I would recommend gabapentin small dose at bedtime - will add BNP although less likely to be heart failure thank you for this consult, will sign off on this consult, please contact hospitalist office for any further questions 06/24/22 Continue current plan Monitor COVID 06/25/22 Amoxicillin 500 mg bid for 10 days 06/26/22 Increase Abilify to 20 mg daily 06/27/22: Discharge planning. Continue current regime 06/28/22: Discharge planning Mucinex prn 06/29/22: Discharge 06/30/22 if she is safe to leave Currently angry, labile and expressing herself Continue to assess and monitor her stability Patient educated on: therapeutic strategies Reason for contiued inpatient stay Substantial Risk for: med/psych decompensation Time Spent With Patient Time: Total time managing care of this patient today _20___ minutes.
[2022-06-29] MEDS: hydrOXYzine HCL 25 MG TABLET PO (12:29)
[2022-06-29] MEDS: QUEtiapine Fumarate 50 MG TABLET PO (12:29)
[2022-06-29 12:41] LABS: Glucose, Whole Blood 221 mg/dL (60-115)
[2022-06-29] MEDS: Insulin Lispro 100 UNIT/ML 3 ML VIAL SUBCUT ×3 (13:55→22:41)
[2022-06-29 17:08] LABS: Glucose, Whole Blood 168 mg/dL (60-115)
[2022-06-29] MEDS: Acetaminophen 325 MG TABLET 650 MG PO (17:26)
[2022-06-29 21:50] VITALS: BP 118/53; PULSE 74; TEMP 36; O2SAT 93
[2022-06-29] MEDS: Melatonin 3 MG TABLET 9 MG PO (22:11)
[2022-06-29] MEDS: QUEtiapine Fumarate 25 MG TABLET 75 MG PO (22:12)
[2022-06-29 22:25] LABS: Glucose, Whole Blood 234 mg/dL (60-115)
[2022-06-29] MEDS: Latanoprost 0.005 % Ophth Sol 2.5 ML DROPS 1 DROP EYE-BOTH (22:41)
[2022-06-30] MEDS: Acetaminophen 325 MG TABLET 650 MG PO (02:08)
[2022-06-30] MEDS: Omeprazole 20 MG CAPSULE.DR PO (05:52)
[2022-06-30] MEDS: Levothyroxine Sodium 25 MCG TABLET PO (05:52)
[2022-06-30] MEDS: Amoxicillin 500 MG CAPSULE PO ×2 (05:52→19:03)
[2022-06-30 06:00] VITALS: BP 143/83; PULSE 76; RESP 18; TEMP 36.6; O2SAT 93
[2022-06-30 09:08] LABS: MANUAL DIFF FLAG NO
[2022-06-30 09:18] LABS: Glucose, Whole Blood 267 mg/dL (60-115)
[2022-06-30 09:20] LABS: Basophils Percent Auto 0.6 % (0-2); Eosinophils Absolute Auto 0.1 X10*3/uL (0.0-0.4); Eosinophils Percent Auto 1.1 % (0-4); Hematocrit 39.3 % (37.0-47.0); Hemoglobin 12.6 g/dl (12.0-16.0); Imm Gran Abs Auto 0.04 X10*3/uL (0.00-0.03); Imm Gran Pct Auto 0.9 % (0.0-0.4); Lymphocytes Absolute Auto 1.3 X10*3/uL (1.2-4.9); Lymphocytes Percent Auto 26.7 % (20-40); Mean Corpuscular HGB Conc 32.1 g/dl (31.0-35.0); Mean Corpuscular Volume 90.6 fL (80.0-98.0); Mean Platelet Volume 11.4 fL (9.4-12.3); Monocytes Absolute Auto 0.4 X10*3/uL (0.1-1.2); Monocytes Percent Auto 8.8 % (2-11); Neutrophils Absolute Auto 2.9 x10*3/uL (2.0-8.3); Neutrophils Percent Auto 61.9 % (45-73); Platelet Count 212 X10*3/uL (160-400); Red Blood Count 4.34 X10*6/uL (4.20-5.50); Red Cell Distribution Width 14.5 % (11.0-16.0); White Blood Count 4.7 X10*3/uL (4.8-10.8)
[2022-06-30] MEDS: Insulin Lispro 100 UNIT/ML 3 ML VIAL SUBCUT ×2 (09:27→12:17)
[2022-06-30] MEDS: Insulin Glargine,Hum.rec.anlog 100 UNIT/ML 10 ML VIAL 25 UNIT SUBCUT (09:28)
[2022-06-30] MEDS: Enoxaparin Sodium 40 MG/0.4 ML SYRINGE SUBCUT (09:28)
[2022-06-30] MEDS: Sennosides 8.6 MG TABLET 17.2 MG PO (09:28)
[2022-06-30] MEDS: Docusate Sodium 100 MG CAPSULE PO ×3 (09:29→19:04)
[2022-06-30] MEDS: Empagliflozin 25 MG TABLET PO (09:29)
[2022-06-30] MEDS: Cholecalciferol (Vitamin D3) 25 MCG TABLET 50 MCG PO (09:29)
[2022-06-30] MEDS: Atorvastatin Calcium 40 MG TABLET PO (09:29)
[2022-06-30] MEDS: ARIPiprazole 20 MG TABLET PO (09:29)
[2022-06-30] MEDS: Gabapentin 600 MG TABLET PO ×3 (09:29→19:03)
[2022-06-30] MEDS: Fenofibrate 160 MG TABLET PO (09:29)
[2022-06-30] MEDS: Cyanocobalamin (Vitamin B-12) 500 MCG TABLET PO (09:29)
[2022-06-30] MEDS: clonazePAM 0.5 MG TABLET PO ×2 (09:29→19:03)
[2022-06-30 09:41] LABS: Alanine Aminotransferase 89 U/L (0-31); Albumin Level 3.9 g/dL (3.5-5.0); Alkaline Phosphatase 81 U/L (39-117); Anion Gap 11 (12-20); Aspartate Amino Transferase 55 U/L (5-31); Bilirubin Total 0.4 mg/dL (0.0-1.0); Blood Urea Nitrogen 19 mg/dL (9-16); Calcium 9.1 mg/dL (8.4-10.2); Carbon Dioxide 26 mmol/L (22-29); Chloride 105 mmol/L (96-108); Creatinine Clr Calc Pharmacy 62.3; Estimated Glomerular Filt Rate > 60; Glucose Random 296 mg/dL (60-115); Potassium 4.5 mmol/L (3.3-5.1); Sodium 137 mmol/L (135-145)
[2022-06-30] MEDS: guaiFENesin DM 600/30 1 TAB TAB.ER.12H PO (11:02)
[2022-06-30 12:19] LABS: Glucose, Whole Blood 213 mg/dL (60-115)
--- NOTE | 2022-06-30 17:06 | P.DS_ITS ---
DS: Providers Provider Date of Service: 06/30/22 Date of admission: 06/17/22 19:48 Date of discharge: 06/30/22 Primary care physician: Unknown Physician Admitting clinician: Leonor Mcgowan Attending physician on admission: Raphael Montalvo Consults: 06/23/22 20:06 Consult to Hospitalist Stat Consulting Provider: Hospitalist Reason For Exam: new onset pain and pitting edema left lower extrem Attending physician on discharge: Raphael Montalvo Discharging clinician: Leonor Mcgowan DS: Diagnosis Discharge Diagnosis (1) Recurrent major depression-severe: Status: Acute DS: Medications Discharge Medications Home Medications: Home Medications Medication Instructions Recorded Confirmed blood sugar diagnostic #10 ea 05/19/20 03/09/22 brimonidine 0.1 % eye drops 1 drp ophthalmic (eye) BID 01/06/21 06/16/22 (Alphagan P) suvorexant 10 mg tablet (Belsomra) 10 mg PO BEDTIME PRN Insomnia 07/02/21 06/16/22 atorvastatin 40 mg tablet 1 tab PO DAILY 06/16/22 06/16/22 docusate sodium 100 mg capsule 1 cap PO BID 06/16/22 06/16/22 empagliflozin 25 mg tablet 1 tab PO DAILY 06/16/22 06/16/22 (Jardiance) esomeprazole magnesium 40 mg 1 cap PO DAILY 06/16/22 06/16/22 capsule,delayed release fenofibrate 160 mg tablet 1 tab PO DAILY 06/16/22 06/16/22 levothyroxine 25 mcg tablet 1 tab PO DAILY 06/16/22 06/16/22 pioglitazone 15 mg tablet 1 tab PO DAILY 06/16/22 06/16/22 Previous Rx's Medication Instructions Recorded flash glucose scanning reader #1 ea 10/27/20 (FreeStyle Jill 2 [place]) flash glucose sensor (FreeStyle #2 ea 12/25/20 Jill 2 Sensor kit) lancets 28 gauge (FreeStyle #100 ea 03/23/21 Lancets) pulse oximeter #1 ea 05/12/21 liraglutide 0.6 mg/0.1 mL (18 mg/3 1.8 mg (0.3 mL) subcut DAILY 90 07/01/21 mL) subcutaneous pen injector days #27 mL (Victoza 3-Jeanmarie) pen needle, diabetic 32 gauge x #150 ea 07/13/21/32 (Unifine Ultra Pen Needle) bisacodyl 5 mg tablet,delayed 10 mg PO BEDTIME PRN constipation 09/01/21 release (Dulcolax (bisacodyl)) 2 days #30 tabs albuterol sulfate 90 mcg/actuation 2 puff inhalation Q4H PRN 06/03/22 aerosol inhaler Shortness Of Breath 60 days #8.5 grams cholecalciferol (vitamin D3) 50 50 mcg PO DAILY #90 caps 06/10/22 mcg (2,000 unit) capsule insulin aspart U-100 100 unit/mL See Protocol subcut TIDAC 30 days 06/10/22 (3 mL) subcutaneous pen #15 mL insulin degludec 100 unit/mL (3 36 unit (0.36 mL) subcut DAILY #15 06/10/22 mL) subcutaneous pen (Tresiba mL FlexTouch U-100 insulin) benzonatate 100 mg capsule 100 mg PO TID PRN cough 5 days #15 06/14/22 caps fluticasone propionate 230 2 puff PO BID #12 grams 06/25/22 mcg-salmeterol 21 mcg/actuation HFA inhaler (Advair HFA) amoxicillin 500 mg capsule 500 mg PO Q12H #10 caps 06/30/22 aripiprazole 20 mg tablet (Abilify) 20 mg PO DAILY #30 tabs 06/30/22 clonazepam 0.5 mg tablet 0.5 mg PO BID #60 tabs 06/30/22 cyanocobalamin (vitamin B-12) 500 500 mcg PO DAILY #30 tabs 06/30/22 mcg tablet gabapentin 600 mg tablet 1 tab PO TID #90 tabs 06/30/22 latanoprost 0.005 % eye drops 1 drp ophthalmic (eye) BEDTIME 06/30/22 #7.5 mL melatonin 3 mg capsule 9 mg PO BEDTIME PRN sleep #90 caps 06/30/22 melatonin 3 mg tablet 9 mg PO BEDTIME PRN Insomnia #90 06/30/22 tabs polyvinyl alcohol 1.4 % eye drops 2 drp ophthalmic (eye) Q4H PRN Dry 06/30/22 (Artificial Tears (polyvinyl Eyes #15 mL alcohol)) quetiapine 25 mg tablet 75 mg PO BEDTIME #90 tabs 06/30/22 quetiapine 50 mg tablet 50 mg PO BID PRN agitation #60 tabs 06/30/22 sennosides 8.6 mg tablet (senna) 17.2 mg PO DAILY #60 tabs 06/30/22 Mental Status Exam Mental Status Exam Patient Appearance: Appropriate Patient Orientation: Person, Place, Time and Situation Level of Consciousness: Alert Patient Behavior: Talkative, Distractible and Good Eye Contact Mood Description: Apprehensive Affect Description: Apprehensive Patient Cognition Impaired: No Ability to Follow Directions: Good Speech Pattern: Spontaneous Speech Memory Description: Intact Hallucinations: None Delusions: Not Present Thought Process: Intact Thought Content: positive for Intact Depressive Symptoms: Increased Anxiety Abnormal Motor Activity Signs and Symptoms: Restlessness Judgement: Fair Data Data Completed and Pending Completed studies during hospitalization [Text1]: 06/23/22 06/24/22 06/24/22 20:31 08:22 08:37 WBC RBC Hgb Hct MCV MCH MCHC RDW Plt Count MPV Immature Gran % (Auto) Neut % (Auto) Lymph % (Auto) [place] % (Auto) Eos % (Auto) Baso % (Auto) Lymph # (Auto) [place] # (Auto) Eos # (Auto) Baso # (Auto) Abs Immat Gran (auto) Absolute Neuts (auto) Absolute Nucleated RBC Nucleated RBC % (auto) Sodium Potassium Chloride Carbon Dioxide Anion Gap BUN Creatinine Estim Creat Clear Calc Estimated GFR POC Glucose 174 H 202 H Random Glucose Calcium Total Bilirubin AST ALT Alkaline Phosphatase B-Natriuretic Peptide < 10 Total Protein Albumin 06/24/22 06/24/22 06/24/22 12:37 16:32 20:15 WBC RBC Hgb Hct MCV MCH MCHC RDW Plt Count MPV Immature Gran % (Auto) Neut % (Auto) Lymph % (Auto) [place] % (Auto) Eos % (Auto) Baso % (Auto) Lymph # (Auto) [place] # (Auto) Eos # (Auto) Baso # (Auto) Abs Immat Gran (auto) Absolute Neuts (auto) Absolute Nucleated RBC Nucleated RBC % (auto) Sodium Potassium Chloride Carbon Dioxide Anion Gap BUN Creatinine Estim Creat Clear Calc Estimated GFR POC Glucose 223 H 206 H 210 H Random Glucose Calcium Total Bilirubin AST ALT Alkaline Phosphatase B-Natriuretic Peptide Total Protein Albumin 06/25/22 06/25/22 06/25/22 08:14 08:37 12:11 WBC RBC Hgb Hct MCV MCH MCHC RDW Plt Count MPV Immature Gran % (Auto) Neut % (Auto) Lymph % (Auto) [place] % (Auto) Eos % (Auto) Baso % (Auto) Lymph # (Auto) [place] # (Auto) Eos # (Auto) Baso # (Auto) Abs Immat Gran (auto) Absolute Neuts (auto) Absolute Nucleated RBC Nucleated RBC % (auto) Sodium 140 Potassium 4.8 Chloride 102 Carbon Dioxide 32 H Anion Gap 11 L BUN 19 H D Creatinine 0.94 Estim Creat Clear Calc 60.9 Estimated GFR 59 POC Glucose 172 H 218 H Random Glucose 159 H Calcium 9.4 Total Bilirubin AST ALT Alkaline Phosphatase B-Natriuretic Peptide Total Protein Albumin 06/25/22 06/25/22 06/26/22 17:21 20:09 09:22 WBC RBC Hgb Hct MCV MCH MCHC RDW Plt Count MPV Immature Gran % (Auto) Neut % (Auto) Lymph % (Auto) [place] % (Auto) Eos % (Auto) Baso % (Auto) Lymph # (Auto) [place] # (Auto) Eos # (Auto) Baso # (Auto) Abs Immat Gran (auto) Absolute Neuts (auto) Absolute Nucleated RBC Nucleated RBC % (auto) Sodium Potassium Chloride Carbon Dioxide Anion Gap BUN Creatinine Estim Creat Clear Calc Estimated GFR POC Glucose 260 H 213 H 196 H Random Glucose Calcium Total Bilirubin AST ALT Alkaline Phosphatase B-Natriuretic Peptide Total Protein Albumin 06/26/22 06/26/22 06/27/22 12:37 22:16 08:10 WBC RBC Hgb Hct MCV MCH MCHC RDW Plt Count MPV Immature Gran % (Auto) Neut % (Auto) Lymph % (Auto) [place] % (Auto) Eos % (Auto) Baso % (Auto) Lymph # (Auto) [place] # (Auto) Eos # (Auto) Baso # (Auto) Abs Immat Gran (auto) Absolute Neuts (auto) Absolute Nucleated RBC Nucleated RBC % (auto) Sodium Potassium Chloride Carbon Dioxide Anion Gap BUN Creatinine Estim Creat Clear Calc Estimated GFR POC Glucose 166 H 249 H 141 H Random Glucose Calcium Total Bilirubin AST ALT Alkaline Phosphatase B-Natriuretic Peptide Total Protein Albumin 06/27/22 06/27/22 06/27/22 12:34 17:09 20:42 WBC RBC Hgb Hct MCV MCH MCHC RDW Plt Count MPV Immature Gran % (Auto) Neut % (Auto) Lymph % (Auto) [place] % (Auto) Eos % (Auto) Baso % (Auto) Lymph # (Auto) [place] # (Auto) Eos # (Auto) Baso # (Auto) Abs Immat Gran (auto) Absolute Neuts (auto) Absolute Nucleated RBC Nucleated RBC % (auto) Sodium Potassium Chloride Carbon Dioxide Anion Gap BUN Creatinine Estim Creat Clear Calc Estimated GFR POC Glucose 212 H 262 H 246 H Random Glucose Calcium Total Bilirubin AST ALT Alkaline Phosphatase B-Natriuretic Peptide Total Protein Albumin 06/28/22 06/28/22 06/28/22 08:18 12:04 16:45 WBC RBC Hgb Hct MCV MCH MCHC RDW Plt Count MPV Immature Gran % (Auto) Neut % (Auto) Lymph % (Auto) [place] % (Auto) Eos % (Auto) Baso % (Auto) Lymph # (Auto) [place] # (Auto) Eos # (Auto) Baso # (Auto) Abs Immat Gran (auto) Absolute Neuts (auto) Absolute Nucleated RBC Nucleated RBC % (auto) Sodium Potassium Chloride Carbon Dioxide Anion Gap BUN Creatinine Estim Creat Clear Calc Estimated GFR POC Glucose 215 H 217 H 204 H Random Glucose Calcium Total Bilirubin AST ALT Alkaline Phosphatase B-Natriuretic Peptide Total Protein Albumin 06/28/22 06/29/22 06/29/22 21:55 08:30 12:35 WBC RBC Hgb Hct MCV MCH MCHC RDW Plt Count MPV Immature Gran % (Auto) Neut % (Auto) Lymph % (Auto) [place] % (Auto) Eos % (Auto) Baso % (Auto) Lymph # (Auto) [place] # (Auto) Eos # (Auto) Baso # (Auto) Abs Immat Gran (auto) Absolute Neuts (auto) Absolute Nucleated RBC Nucleated RBC % (auto) Sodium Potassium Chloride Carbon Dioxide Anion Gap BUN Creatinine Estim Creat Clear Calc Estimated GFR POC Glucose 235 H 209 H 221 H Random Glucose Calcium Total Bilirubin AST ALT Alkaline Phosphatase B-Natriuretic Peptide Total Protein Albumin 06/29/22 06/29/22 06/30/22 16:54 22:09 08:01 WBC RBC Hgb Hct MCV MCH MCHC RDW Plt Count MPV Immature Gran % (Auto) Neut % (Auto) Lymph % (Auto) [place] % (Auto) Eos % (Auto) Baso % (Auto) Lymph # (Auto) [place] # (Auto) Eos # (Auto) Baso # (Auto) Abs Immat Gran (auto) Absolute Neuts (auto) Absolute Nucleated RBC Nucleated RBC % (auto) Sodium 137 Potassium 4.5 Chloride 105 Carbon Dioxide 26 Anion Gap 11 L BUN 19 H Creatinine 0.92 Estim Creat Clear Calc 62.3 Estimated GFR > 60 POC Glucose 168 H 234 H Random Glucose 296 H Calcium 9.1 Total Bilirubin 0.4 AST 55 H ALT 89 H Alkaline Phosphatase 81 B-Natriuretic Peptide Total Protein 6.0 L Albumin 3.9 06/30/22 06/30/22 06/30/22 08:01 09:12 12:14 WBC 4.7 L RBC 4.34 Hgb 12.6 Hct 39.3 MCV 90.6 MCH 29.0 MCHC 32.1 RDW 14.5 Plt Count 212 MPV 11.4 Immature Gran % (Auto) 0.9 H Neut % (Auto) 61.9 Lymph % (Auto) 26.7 [place] % (Auto) 8.8 Eos % (Auto) 1.1 Baso % (Auto) 0.6 Lymph # (Auto) 1.3 [place] # (Auto) 0.4 Eos # (Auto) 0.1 Baso # (Auto) 0.0 Abs Immat Gran (auto) 0.04 H Absolute Neuts (auto) 2.9 Absolute Nucleated RBC 0.000 Nucleated RBC % (auto) 0.0 Sodium Potassium Chloride Carbon Dioxide Anion Gap BUN Creatinine Estim Creat Clear Calc Estimated GFR POC Glucose 267 H 213 H Random Glucose Calcium Total Bilirubin AST ALT Alkaline Phosphatase B-Natriuretic Peptide Total Protein Albumin Imaging Diagnostic Imaging Impressions Chest X-Ray 06/16/22 20:45 IMPRESSION: Hyperinflated lungs with platelike atelectasis left lung base. Venous Duplex 06/23/22 21:19 IMPRESSION: No DVT demonstrated in the bilateral lower extremity. DS: Summary Hospital Course Hospital Course: Admission to adult psychiatry for exacerbation of symptoms of recurrent major depression due to out patient team not sending in prescriptions and medication addictions therapist not filling medications. Regime was re-started, Abilify was increased to 20 mg daily, Klonopin was increased to 0.5 mg bid, Seroquel 75 mg at HS was initiated along with 50 mg bid prn. Pt experienced bilateral LE edema with consultation from the hospitalist- this was found to be from pt's neuropathy. Pt maintained her oxygen at bedtime which is consistent for her at home. Pt did develop a COVID positive test during her hospitalization-she maintained quarantine and was treated for sinus infection with amoxicillin-this course will end on 06/04/23. She did have expression of frustration and emotion during her stay-many stressors including medical illness and being unsure if her out patient providers would be consistent in moving forward with her medications and treatment. She is discharged to home this evening, after evening medications as the VNA is unable to meet with her until 07/01/22. She ended quarantine prior to discharge and was able to interact with peers in the milieu which she was pleased to do. Time spent discussing smoking cessation with patient: 3 to 10 minutes Status at Discharge Functional status at discharge: uses cane/walker Overall status at discharge: patient is progressing back to baseline Time Spent with Patient Time attestation: Total time managing care of this patient today _45___ minutes. Time spent: Greater than 30 minutes Discharge Plan Discharge Anticipated Discharge Date/Time: 06/30/22 19:00 Patient Disposition: Home, Self-Care Discharge Diagnosis: Recurrent major depression -spinal stenosis, osteopenia, GERD, nocturnal hypoxemia, COPD -DM2, HLD, HTN Referrals: Therapist: Noelle ([facility]) [Other] - 07/05/22 9:30 am (Telehealth ) Psych Prescriber:Ventura Vance ([facility]) [Other] - 07/27/22 11:40 am (Appointment is in person at the office in [place] ) Jolanta Concepcion MD [Physician] - 1 Week (OFFICE WILL CALL PT. WITH F/U APPOINTMENT ) Discharge Medications: New quetiapine 25 mg Tablet 75 mg PO BEDTIME Qty: 90 0RF clonazepam 0.5 mg Tablet 0.5 mg PO BID Qty: 60 0RF aripiprazole [Abilify] 20 mg Tablet 20 mg PO DAILY Qty: 30 0RF quetiapine 50 mg Tablet 50 mg PO BID PRN (Reason: agitation) Qty: 60 0RF polyvinyl alcohol [Artificial Tears (polyvin alc)] 1.4 % Drops 2 drp ophthalmic (eye) Q4H PRN (Reason: Dry Eyes) Qty: 15 0RF melatonin 3 mg Tablet 9 mg PO BEDTIME PRN (Reason: Insomnia) Qty: 90 0RF amoxicillin 500 mg Capsule 500 mg PO Q12H Qty: 10 0RF melatonin 3 mg capsule 9 mg PO BEDTIME PRN (Reason: sleep) Qty: 90 0RF Continued (DME) FreeStyle Jill 2 [place] Misc See Rx Instructions .ROUTE .MEDSUPPLY Qty: 1 0RF Rx Instructions: As directed (DME) FreeStyle Jill 2 Sensor Kit See Rx Instructions .ROUTE .MEDSUPPLY Qty: 2 11RF Rx Instructions: Once every 14 days (DME) lancets [FreeStyle Lancets] 28 gauge misc See Rx Instructions .MEDSUPPLY Qty: 100 11RF Rx Instructions: 4x daily (DME) pulse oximeter See Rx Instructions .Route .MEDSUPPLY Qty: 1 0RF Rx Instructions: As directed to monitor oxygen levels Victoza 3-Jeanmarie 0.6 mg/0.1 mL (18 mg/3 mL) pen injector 1.8 mg subcut DAILY 90 Days Qty: 27 11RF (DME) pen needle, diabetic [Unifine Ultra Pen Needle] 32 gauge x 5/32 needle See Rx Instructions .Route Qty: 150 11RF Rx Instructions: As directed 5 times a day bisacodyl [Dulcolax (bisacodyl)] 5 mg tablet,delayed release (DR/EC) 10 mg PO BEDTIME PRN (Reason: constipation) 2 Days Qty: 30 5RF cholecalciferol (vitamin D3) 50 mcg (2,000 unit) capsule 50 mcg PO DAILY Qty: 90 3RF Tresiba FlexTouch U-100 100 unit/mL (3 mL) insulin pen 36 unit subcut DAILY Qty: 15 6RF insulin aspart U-100 100 unit/mL (3 mL) insulin pen See Protocol subcut TIDAC 30 Days Qty: 15 0RF Protocol: Insulin Correction Scale Less than or equal to 110 ---- Give (units): 0 111 to 150 Give (units): 0 151 to 200 Give (units): 2 201 to 250 Give (units): 4 251 to 300 Give (units): 6 301 to 350 Give (units): 8 Greater than 350 Give (units): 10 Call MD if Blood Glucose > : 350 Label Comments: Sliding scale Rx Instructions: Novolog sliding scale 3 times daily (200-250: 4 units, 251-300: 6 units, 301 - 350: 8 units, >351: 10 units Advair HFA 230-21 mcg/actuation HFA aerosol inhaler 2 puff PO BID Qty: 12 4RF benzonatate 100 mg capsule 100 mg PO TID PRN (Reason: cough) 5 Days Qty: 15 0RF pioglitazone 15 mg tablet 1 tab PO DAILY atorvastatin 40 mg tablet 1 tab PO DAILY levothyroxine 25 mcg tablet 1 tab PO DAILY Jardiance 25 mg tablet 1 tab PO DAILY esomeprazole magnesium 40 mg capsule,delayed release(DR/EC) 1 cap PO DAILY docusate sodium 100 mg capsule 1 cap PO BID fenofibrate 160 mg tablet 1 tab PO DAILY gabapentin 600 mg tablet 1 tab PO TID Qty: 90 0RF latanoprost 0.005 % drops 1 drp ophthalmic (eye) BEDTIME Qty: 7.5 0RF cyanocobalamin (vitamin B-12) 500 mcg tablet 500 mcg PO DAILY Qty: 30 0RF (DME) blood sugar diagnostic Strip See Rx Instructions Not Applicable TID Qty: 10 Rx Instructions: As directed Alphagan P 0.1 % drops 1 drp ophthalmic (eye) BID Belsomra 10 mg tablet 10 mg PO BEDTIME PRN (Reason: Insomnia) albuterol sulfate 90 mcg/actuation HFA aerosol inhaler 2 puff inhalation Q4H PRN (Reason: Shortness Of Breath) 60 Days Qty: 8.5 2RF Changed sennosides [senna] 8.6 mg tablet 17.2 mg PO DAILY Qty: 60 0RF Discontinued aripiprazole 15 mg tablet 1 tab PO DAILY clonazepam 0.5 mg tablet 0.5 mg PO DAILY PRN (Reason: Anxiety) Discharge Orders: Discharge Order (Routine); Ordered 06/30/22 Ordered By: Leonor Mcgowan Diet: Diabetic diet Activity on Discharge: As tolerated Stand Alone Forms: Patient Portal Discharge page Care Plan Goals: Maintain mood and safe behaviors Take medications as directed with VNA assistance and [facility] assistance Practice coping skills Continue with out patient providers and reach out to them as needed. Health Concerns: Stable mood and behaviors Plan of Treatment: Follow up with out patient providers Work with VNA team on your health and medications Take medications as prescribed Assessment: Sofiya was interviewed prior to discharge and found to be fully oriented and without SI/HI. She discussed comments made on 06/29/22 about wanting to go home and -she assures us this is not the case and explains that having COVID, needing to quarantine while in hospital and not being able to smoke have all created more stress in addition to the precipitants which brought her into the hospital. She is looking forward to being at home and reconnecting with friends. She exhibits insight and demonstrates good judgment in terms of wanting to pursue treatment. She is not in imminent risk of harm to self or others and has a safety plan that includes presenting to the closest ER or calling 911 if feeling unsafe. She has been observed closely by nursing and unit staff throughout admission. She has not engaged in any behaviors that suggest dangerousness to self or others and has demonstrated appropriate behaviors and impulse control. The holiday season has been difficult for consistency in providers in the community for her-[facility] and their contracted VNA and medication providers have been difficult to schedule pt with.
[2022-06-30 18:00] VITALS: BP 128/80; PULSE 76; RESP 18; TEMP 36.6; O2SAT 93
[2022-06-30] MEDS: QUEtiapine Fumarate 25 MG TABLET 75 MG PO (19:03)
== END 2022-06-30 19:40 | disposition home or self-care (01) | DRG 885 ==
LOC: HO.ED 06-17 06:40 → HO.PM5 06-17 19:53
PROVIDERS: Emergency Medicine; Internal Medicine; Admitting Provider Psychiatry & Neurology Psychiatry; Emergency Provider Emergency Medicine Emergency Medical Services; Visit Provider Clinical Nurse Specialist Psychiatric/Mental Health, Adult
DX: F33.2 Major depressive disorder, recurrent severe without psychotic features (principal); U07.1 COVID-19; R45.851 Suicidal ideations; J44.9 Chronic obstructive pulmonary disease, unspecified; F17.210 Nicotine dependence, cigarettes, uncomplicated; E78.5 Hyperlipidemia, unspecified; Z98.1 Arthrodesis status; Z71.6 Tobacco abuse counseling; Z88.5 Allergy status to narcotic agent; Z88.6 Allergy status to analgesic agent; Z79.51 Long term (current) use of inhaled steroids; Z79.4 Long term (current) use of insulin; Z79.890 Hormone replacement therapy; Z79.899 Other long term (current) drug therapy; E11.40 Type 2 diabetes mellitus with diabetic neuropathy, unspecified
CPT/HCPCS: 0241U; 36415; 71045; 80048; 80053; 80143; 80179; 80307; 81001; 81025; 82077; 82947; 83880; 85025; 87635; 90686; 93005; 93970; 99285; J1650; J2270

== ENCOUNTER → 2022-07-26 10:56 | Outpatient (BNVA) | payer OTHER, MEDICAID, SELFPAY | PROVIDERS: PCP Internal Medicine; Visit Provider Internal Medicine | DX: E11.65 Type 2 diabetes mellitus with hyperglycemia (principal); E78.5 Hyperlipidemia, unspecified; E04.2 Nontoxic multinodular goiter; E55.9 Vitamin D deficiency, unspecified; I10 Essential (primary) hypertension | CPT/HCPCS: 82947; 83036; 99212 ==

== ENCOUNTER 2022-07-28 21:51 | Emergency (ER) | payer OTHER, SELFPAY ==
[2022-07-28 22:07] VITALS: BP 131/56; PULSE 97; RESP 18; TEMP 36; O2SAT 95; BMI 32.9
[2022-07-28 22:25] LABS: Appearance Urine Clear; Color Urine Yellow; Glucose Urine UA >=1000 mg/dL (Negative); Leukocyte Esterase Urine Small (1+) (Negative); Nitrite Urine Negative (Negative); PH 7.5 (5.0-9.0); Specific Gravity - Urine >= 1.030 (1.005-1.025); UMIC TRIGGER UA YES; Urine Blood Negative (Negative); Urine Ketones Negative (Negative); Urine Protein Negative (Neg-Trace)
[2022-07-28 22:30] LABS: Bacteria Urine None Seen (None Seen); Hyaline Casts Urine 0-2 /LPF (0-2); RBC Urine 0-2 /HPF (0-2)
[2022-07-28 22:33] LABS: Amphetamine Screen Urine Not Detected (Not Detect); Barbiturates, Urine Not Detected (Not Detect); Benzodiazepines Screen Urine Not Detected (Not Detect); Cannabinoid Screen Urine Not Detected (Not Detect); Cocaine Screen Urine Not Detected (Not Detect); Fentanyl, urine Not Detected (Not Detect); Opiate Screen Urine POSITIVE (Not Detect); Phencyclidine Screen Urine Not Detected (Not Detect)
[2022-07-28 22:40] LABS: COVID-19 Test Negative (Negative); IDNOW Serial# 08D9AD1C
[2022-07-28 23:32] LABS: Alanine Aminotransferase 21 U/L (0-31); Albumin Level 4.1 g/dL (3.5-5.0); Alkaline Phosphatase 57 U/L (39-117); Anion Gap 8 (12-20); Aspartate Amino Transferase 21 U/L (5-31); Bilirubin Total 0.6 mg/dL (0.0-1.0); Blood Urea Nitrogen 13 mg/dL (9-16); Calcium 9.1 mg/dL (8.4-10.2); Carbon Dioxide 29 mmol/L (22-29); Chloride 107 mmol/L (96-108); Creatinine Clr Calc Pharmacy 64.9; Estimated Glomerular Filt Rate > 60; Glucose Random 132 mg/dL (60-115); Potassium 4.2 mmol/L (3.3-5.1); Sodium 140 mmol/L (135-145); Total Protein 6.2 g/dL (6.5-8.0)
[2022-07-28 23:33] LABS: Acetaminophen LAB < 17 mcg/mL (<30); Ethanol < 10 mg/dL; Salicylate < 5.0 mg/dL (15-30)
[2022-07-29 00:08] LABS: Basophils Percent Auto 0.6 % (0-2); Eosinophils Absolute Auto 0.1 X10*3/uL (0.0-0.4); Eosinophils Percent Auto 1.8 % (0-4); Hematocrit 40.2 % (37.0-47.0); Hemoglobin 13.4 g/dl (12.0-16.0); Imm Gran Abs Auto 0.03 X10*3/uL (0.00-0.03); Imm Gran Pct Auto 0.4 % (0.0-0.4); Lymphocytes Absolute Auto 1.8 X10*3/uL (1.2-4.9); Lymphocytes Percent Auto 26.6 % (20-40); Mean Corpuscular HGB Conc 33.3 g/dl (31.0-35.0); Mean Corpuscular Hemoglobin 29.1 pg (27.0-33.0); Mean Corpuscular Volume 87.4 fL (80.0-98.0); Mean Platelet Volume 10.3 fL (9.4-12.3); Monocytes Absolute Auto 0.5 X10*3/uL (0.1-1.2); Monocytes Percent Auto 7.3 % (2-11); Neutrophils Absolute Auto 4.2 x10*3/uL (2.0-8.3); Neutrophils Percent Auto 63.3 % (45-73); Platelet Count 239 X10*3/uL (160-400); Red Cell Distribution Width 14.4 % (11.0-16.0); White Blood Count 6.7 X10*3/uL (4.8-10.8)
[2022-07-29] MEDS: Melatonin 3 MG TABLET PO (01:35)
[2022-07-29] MEDS: Docusate Sodium 100 MG CAPSULE PO ×2 (01:35→08:29)
[2022-07-29] MEDS: QUEtiapine Fumarate 25 MG TABLET 75 MG PO (01:35)
[2022-07-29] MEDS: clonazePAM 0.5 MG TABLET PO (01:57)
[2022-07-29] MEDS: Melatonin 3 MG TABLET 6 MG PO (01:57)
--- NOTE | 2022-07-29 02:50 | ED_ITS ---
HPI - Psych General Chief Complaint: Psychiatric Symptoms Stated Complaint: SI Source: patient and EMS Mode of arrival: EMS Limitations: no limitations History of Present Illness HPI Narrative: Patient comes emergency room via EMS from home. Patient came on a Section 12 that was started by police department. The patient explains that earlier today, patient was supposed to get all of her home medications. The patient states that she has a VNA nurse that is supposed to come, but due to staffing issues, patient has not been getting her medication for several days. Patient called the [facility] Services and told them that if she would not get her home medications, she would kill herself by overdosing with Tylenol. [facility] Services called 911 and PD. Patient was Section 12 and brought to the emergency room. The patient states that she said that she was going to kill herself out of frustration. Patient states that she does not intend harming herself. Related Data Home Medications Medication Instructions Recorded Confirmed empagliflozin 25 mg tablet 1 tab PO DAILY 06/16/22 07/28/22 (Jardiance) levothyroxine 25 mcg tablet 1 tab PO DAILY 06/16/22 07/28/22 insulin aspart U-100 100 unit/mL See Protocol subcut TIDAC 07/26/22 07/28/22 (3 mL) subcutaneous pen aripiprazole 20 mg tablet 1 tab PO DAILY 07/28/22 07/28/22 atorvastatin 40 mg tablet 1 tab PO DAILY 07/28/22 07/28/22 bisacodyl 5 mg tablet,delayed 2 tab PO BEDTIME PRN constipation 07/28/22 07/28/22 release (Gentle Laxative (bisacodyl)) cholecalciferol (vitamin D3) 50 1 tab PO DAILY 07/28/22 07/28/22 mcg (2,000 unit) tablet clonazepam 0.5 mg tablet 1 tab PO BID PRN Anxiety 07/28/22 07/28/22 codeine 10 mg-guaifenesin 100 mg/5 10 ml PO Q4-6H PRN cough 07/28/22 07/28/22 mL oral liquid cyanocobalamin (vitamin B-12) 500 1 tab PO DAILY 07/28/22 07/28/22 mcg tablet (Vitamin B-12) docusate sodium 100 mg capsule 1 cap PO BID 07/28/22 07/28/22 duloxetine 60 mg capsule,delayed 1 cap PO DAILY 07/28/22 07/28/22 release esomeprazole magnesium 40 mg 1 cap PO DAILY 07/28/22 07/28/22 capsule,delayed release fenofibrate 160 mg tablet 1 tab PO DAILY 07/28/22 07/28/22 levocetirizine 5 mg tablet 1 tab PO DAILY 07/28/22 07/28/22 melatonin 3 mg tablet 3 mg PO BEDTIME 07/28/22 07/28/22 pioglitazone 15 mg tablet 1 tab PO DAILY 07/28/22 07/28/22 quetiapine 25 mg tablet 50 mg PO BID PRN Anxiety 07/28/22 07/28/22 quetiapine 50 mg tablet 75 mg PO BEDTIME 07/28/22 07/28/22 gabapentin 600 mg tablet 1 tab PO TID 07/29/22 07/29/22 sennosides 8.6 mg tablet (senna) 2 tab PO DAILY 07/29/22 07/29/22 Previous Rx's Medication Instructions Recorded liraglutide 0.6 mg/0.1 mL (18 mg/3 1.8 mg (0.3 mL) subcut DAILY 90 07/01/21 mL) subcutaneous pen injector days #27 mL (Victoza 3-Jeanmarie) albuterol sulfate 90 mcg/actuation 2 puff inhalation Q4H PRN 06/03/22 aerosol inhaler Shortness Of Breath 60 days #8.5 grams insulin degludec 100 unit/mL (3 36 unit (0.36 mL) subcut DAILY #15 06/10/22 mL) subcutaneous pen (Tresiba mL FlexTouch U-100 insulin) Allergies Allergy/AdvReac Type Severity Reaction Status Date / Time ziprasidone [From Geodon] Allergy Mild RASH-PALPIT Verified 07/26/22 11:28 ATIONS aspirin [ASPIRIN] Allergy Unknown GI bleed, Verified 07/26/22 11:28 stomach upset azithromycin Allergy Unknown facial Verified 07/26/22 11:28 swelling cephalexin [From KEFLEX] Allergy Unknown can't Verified 07/26/22 11:28 remember ibuprofen [IBUPROFEN] Allergy Unknown UNKNOWN, Verified 07/26/22 11:28 stomach upset lisinopril Allergy Unknown cough Verified 07/26/22 11:28 metformin [METFORMIN] Allergy Unknown NAUSEA & Verified 01/30/23 11:28 VOMITING, GI upset valsartan [From Diovan] Allergy Unknown hives Verified 07/26/22 11:28 tiotropium AdvReac Intermediate Unknown Verified 07/26/22 11:28 [From Spiriva with HandiHaler] NSAIDS (Non-Steroidal AdvReac Unknown HX OF GI Verified 07/26/22 11:28 Anti-Inflamma BLEED [NSAIDS (NON-STEROIDAL ANTI-INFLAMMA] tramadol [Ultram] AdvReac Unknown GI upset Verified 07/26/22 11:28 Review of Systems Review of Systems: Constitutional : No Weight loss, No Fever, No Chills, No Night Sweats, No Fatigue, No Malaise ENT/Mouth : No Hearing loss, No Ear Pain, No Nasal Congestion, No Sinus Pain, No Hoarseness, No sore throat, No Rhinorrhea, No Swallowing Difficulty Eyes: No Eye Pain, No Swelling, No Redness, No Foreign Body, No Discharge, No Vision Changes Cardiovascular : No Chest Pain, No SOB, No Dyspnea on Exertion, No Orthopnea, No Edema, No Palpitations Respiratory : No Cough, No Sputum, No Wheezing, No Smoke Exposure, No Dyspnea Gastrointestinal : No Nausea, No Vomiting, No Diarrhea, No Constipation, No abdominal Pain, No Hematochezia, No Melena Genitourinary : no irregular bleeding, No Dysuria, No Urinary Frequency, No Hematuria, No Urinary Incontinence, No Urgency, No Flank Pain, No Urinary Flow Changes, No Hesitancy Musculoskeletal : No joint pain, No Myalgias, No Joint Swelling Skin : No Skin Lesions, No rash Neuro : No Weakness, No Numbness, No Paresthesias, No Loss of Consciousness, No Dizziness, No Headache Psych : Patient became anxious from not getting her medications, accepts that she did make SI statements but did minute, no SI, no HI Heme/Lymph: No Bruising, No Bleeding,No Lymphadenopathy Endocrine : No Polyuria, No Polydipsia, No Temperature Intolerance PMFSH Past Medical History Medical History Chest pain Constipation COPD (chronic obstructive pulmonary disease) Depression العلي (dyspnea on exertion) HLD (hyperlipidemia) Jaw pain Lower extremity pain Multinodular thyroid Nocturnal hypoxemia Osteopenia (~2015) Personal history of nicotine dependence Pulmonary nodule Recurrent major depression-severe Sialoadenitis Smoker Spinal stenosis T2DM (type 2 diabetes mellitus) (~2008) Vitamin D deficiency Surgical History History of cardiac catheterization History of lithotripsy Hx of arthroscopy of left knee Hx of cholecystectomy Hx of colonoscopy Hx of spinal fusion S/P thyroid biopsy Family History Family History Father No problems noted. Mother Cancer Diabetes Social History Social History Household Members: None Housing: Apartment Do you presently have visiting nurse or other home services: Yes Alcohol intake: never Patient Tobacco Use Status: Current everyday Tobacco user Smoking Start Date: 04/01/1964 Tobacco use type: Cigarette Cigarette Packs Per Day: 0.5 Cigarettes Per Day: 7 e-Cigarette/Vaping Use: Former Use Second Hand Smoke Exposure: Yes Advance Directives: Yes Advance Directives on File: Yes Advance Directives Date on File: 04/02/21 service: No Current occupational status: retired Sexual orientation: Straight/Heterosexual Cognitive needs: No Hearing needs: No Vision needs: No Physical Exam Vital Signs: Vital Signs: Last Vital Signs Temp 96.8 F 07/28/22 22:07 Pulse 97 07/28/22 22:07 Resp 18 07/28/22 22:07 BP 131/56 L 07/28/22 22:07 Pulse Ox 95 07/28/22 22:07 O2 Del Method 07/28/22 22:07 BMI result Body Mass Index 32.9 Const: Other: Appearance: Alert. Oriented X3. No acute distress. Eyes: Pupils equal, round and reactive to light. ENT: Pharynx normal. Neck: Normal inspection. Neck supple. No lymph nodes noted. No crepitus CVS: Normal heart rate and rhythm. Pulses normal. Normal S1 and S2 Respiratory: No respiratory distress. Breath sounds normal. No Wheezing. No rales Abdomen: Soft and nontender. No rigidity. No distention. Skin: Skin warm and dry. Normal skin color. Normal skin turgor. Extremities: No lower extremity edema. No Lacerations. No Rash Neuro: Oriented X 3. No motor deficit. No sensory deficit. Moving all extremities. No slurred speech. CN 2 through 12 grossly intact Psych: calm, cooperative, normal affect Medications Administered Generic Name Dose Route Start Last Admin Trade Name Freq PRN Reason Stop Dose Admin Clonazepam 0.5 mg 07/29/22 00:43 07/29/22 01:57 Clonazepam 0.5 Mg Tablet PO 0.5 mg BID PRN Administration Anxiety Docusate Sodium 100 mg 07/29/22 00:45 07/29/22 01:35 Docusate Sodium 100 Mg Capsule PO 100 mg BID ROBIN Administration Melatonin 3 mg 07/29/22 00:45 07/29/22 01:35 Melatonin 3 Mg Tablet PO 3 mg BEDTIME ROBIN Administration Quetiapine Fumarate 75 mg 07/29/22 00:45 07/29/22 01:35 Quetiapine Fumarate 25 Mg Tablet PO 75 mg BEDTIME ROBIN Administration Discontinued Medications Generic Name Dose Route Start Last Admin Trade Name Freq PRN Reason Stop Dose Admin Melatonin 6 mg 07/29/22 01:52 07/29/22 01:57 Melatonin 3 Mg Tablet PO 07/29/22 01:53 6 mg ONCE ONE Administration Medical Decision Making Medical Decision Making MDM Narrative: -patient frustrated that she is not getting her medication through VNA services. -made SI statements but did not mean it. States this was out of frustration. -patient denies suicidal or homicidal ideation -patient may need case management to help her arrange VNA services since she is not getting her medications -care Team consult pending in the morning -the patient has a mild UTI, that the patient's allergies, patient given Macrobid -physician observation started at 03:00 -sign-out given to Dr. Brooke Differential Diagnosis Differential Diagnoses: The differential diagnosis associated with the presentation includes (Anxiety, depression) Admission/Observation Consideration of admission/observation: Escalation of care including adm ission/observation considered (Patient waiting to be evaluated by the care team.) Lab Data 07/29/22 00:03 07/28/22 23:06 Labs: Lab Results 07/28/22 07/28/22 07/28/22 Range/Units 22:15 22:15 22:16 WBC (4.8-10.8) X10*3/uL RBC (4.20-5.50) X10*6/uL Hgb (12.0-16.0) g/dl Hct (37.0-47.0) % MCV (80.0-98.0) fL MCH (27.0-33.0) pg MCHC (31.0-35.0) g/dl RDW (11.0-16.0) % Plt Count (160-400) X10*3/uL MPV (9.4-12.3) fL Immature Gran % (Auto) (0.0-0.4) % Neut % (Auto) (45-73) % Lymph % (Auto) (20-40) % [place] % (Auto) (2-11) % Eos % (Auto) (0-4) % Baso % (Auto) (0-2) % Lymph # (Auto) (1.2-4.9) X10*3/uL [place] # (Auto) (0.1-1.2) X10*3/uL Eos # (Auto) (0.0-0.4) X10*3/uL Baso # (Auto) (0.0-0.2) X10*3/uL Abs Immat Gran (auto) (0.00-0.03) X10*3/uL Absolute Neuts (auto) (2.0-8.3) x10*3/uL Absolute Nucleated RBC (0.0-0.012) X10*3/uL Nucleated RBC % (auto) (0.0-0.2) /100WBC Sodium (135-145) mmol/L Potassium (3.3-5.1) mmol/L Chloride (96-108) mmol/L Carbon Dioxide (22-29) mmol/L Anion Gap (12-20) BUN (9-16) mg/dL Creatinine (0.5-1.4) mg/dL Estim Creat Clear Calc Estimated GFR Random Glucose (60-115) mg/dL Calcium (8.4-10.2) mg/dL Total Bilirubin (0.0-1.0) mg/dL AST (5-31) U/L ALT (0-31) U/L Alkaline Phosphatase (39-117) U/L Total Protein (6.5-8.0) g/dL Albumin (3.5-5.0) g/dL Urine Color Yellow Urine Appearance Clear Urine pH 7.5 (5.0-9.0) Ur Specific [place] >= 1.030 H (1.005-1.025) Urine Protein Negative (Neg-Trace) mg/dL Urine Glucose (UA) >=1000 H (Negative) mg/dL Urine Ketones Negative (Negative) mg/dL Urine Blood Negative (Negative) Urine Nitrite Negative (Negative) Ur Leukocyte Esterase Small (1+) H (Negative) Urine RBC 0-2 (0-2) /HPF Urine WBC 11-20 H (0-5) /HPF Ur Squamous Epith Cells 3-5 (0-2) /HPF Urine Bacteria None Seen (None Seen) Hyaline Casts 0-2 (0-2) /LPF Salicylates (15-30) mg/dL Urine Opiates Screen POSITIVE H (Not Detect) Urine Fentanyl Screen Not Detected (Not Detect) Acetaminophen (<30) mcg/mL Ur Barbiturates Screen Not Detected (Not Detect) Ur Phencyclidine Scrn Not Detected (Not Detect) Ur Amphetamines Screen Not Detected (Not Detect) U Benzodiazepines Scrn Not Detected (Not Detect) Urine Cocaine Screen Not Detected (Not Detect) U Marijuana (THC) Screen Not Detected (Not Detect) Ethyl Alcohol mg/dL COVID-19 ([facility]) Negative (Negative) COVID-19 Clin Com See Note 07/28/22 07/28/22 07/29/22 Range/Units 23:06 23:06 00:03 WBC 6.7 (4.8-10.8) X10*3/uL RBC 4.60 (4.20-5.50) X10*6/uL Hgb 13.4 (12.0-16.0) g/dl Hct 40.2 (37.0-47.0) % MCV 87.4 (80.0-98.0) fL MCH 29.1 (27.0-33.0) pg MCHC 33.3 (31.0-35.0) g/dl RDW 14.4 (11.0-16.0) % Plt Count 239 (160-400) X10*3/uL MPV 10.3 (9.4-12.3) fL Immature Gran % (Auto) 0.4 (0.0-0.4) % Neut % (Auto) 63.3 (45-73) % Lymph % (Auto) 26.6 (20-40) % [place] % (Auto) 7.3 (2-11) % Eos % (Auto) 1.8 (0-4) % Baso % (Auto) 0.6 (0-2) % Lymph # (Auto) 1.8 (1.2-4.9) X10*3/uL [place] # (Auto) 0.5 (0.1-1.2) X10*3/uL Eos # (Auto) 0.1 (0.0-0.4) X10*3/uL Baso # (Auto) 0.0 (0.0-0.2) X10*3/uL Abs Immat Gran (auto) 0.03 (0.00-0.03) X10*3/uL Absolute Neuts (auto) 4.2 (2.0-8.3) x10*3/uL Absolute Nucleated RBC 0.000 (0.0-0.012) X10*3/uL Nucleated RBC % (auto) 0.0 (0.0-0.2) /100WBC Sodium 140 (135-145) mmol/L Potassium 4.2 (3.3-5.1) mmol/L Chloride 107 (96-108) mmol/L Carbon Dioxide 29 (22-29) mmol/L Anion Gap 8 L (12-20) BUN 13 (9-16) mg/dL Creatinine 0.88 (0.5-1.4) mg/dL Estim Creat Clear Calc 64.9 Estimated GFR > 60 Random Glucose 132 H (60-115) mg/dL Calcium 9.1 (8.4-10.2) mg/dL Total Bilirubin 0.6 (0.0-1.0) mg/dL AST 21 (5-31) U/L ALT 21 (0-31) U/L Alkaline Phosphatase 57 (39-117) U/L Total Protein 6.2 L (6.5-8.0) g/dL Albumin 4.1 (3.5-5.0) g/dL Urine Color Urine Appearance Urine pH (5.0-9.0) Ur Specific [place] (1.005-1.025) Urine Protein (Neg-Trace) mg/dL Urine Glucose (UA) (Negative) mg/dL Urine Ketones (Negative) mg/dL Urine Blood (Negative) Urine Nitrite (Negative) Ur Leukocyte Esterase (Negative) Urine RBC (0-2) /HPF Urine WBC (0-5) /HPF Ur Squamous Epith Cells (0-2) /HPF Urine Bacteria (None Seen) Hyaline Casts (0-2) /LPF Salicylates < 5.0 L (15-30) mg/dL Urine Opiates Screen (Not Detect) Urine Fentanyl Screen (Not Detect) Acetaminophen < 17 (<30) mcg/mL Ur Barbiturates Screen (Not Detect) Ur Phencyclidine Scrn (Not Detect) Ur Amphetamines Screen (Not Detect) U Benzodiazepines Scrn (Not Detect) Urine Cocaine Screen (Not Detect) U Marijuana (THC) Screen (Not Detect) Ethyl Alcohol < 10 mg/dL COVID-19 ([facility]) (Negative) COVID-19 Clin Com Discharge Plan Discharge Clinical Impression: Acute UTI, Anxiety Patient Disposition: Still a Patient Prescriptions: No Action Victoza 3-Jeanmarie 0.6 mg/0.1 mL (18 mg/3 mL) pen injector 1.8 mg subcut DAILY 90 Days Qty: 27 11RF Tresiba FlexTouch U-100 100 unit/mL (3 mL) insulin pen 36 unit subcut DAILY Qty: 15 6RF quetiapine 25 mg tablet 50 mg PO BID PRN (Reason: Anxiety) pioglitazone 15 mg tablet 1 tab PO DAILY atorvastatin 40 mg tablet 1 tab PO DAILY esomeprazole magnesium 40 mg capsule,delayed release(DR/EC) 1 cap PO DAILY docusate sodium 100 mg capsule 1 cap PO BID codeine-guaifenesin 10-100 mg/5 mL liquid 10 ml PO Q4-6H PRN (Reason: cough) bisacodyl [Gentle Laxative (bisacodyl)] 5 mg tablet,delayed release (DR/EC) 2 tab PO BEDTIME PRN (Reason: constipation) duloxetine 60 mg capsule,delayed release(DR/EC) 1 cap PO DAILY fenofibrate 160 mg tablet 1 tab PO DAILY quetiapine 50 mg tablet 75 mg PO BEDTIME levocetirizine 5 mg tablet 1 tab PO DAILY cholecalciferol (vitamin D3) 50 mcg (2,000 unit) tablet 1 tab PO DAILY clonazepam 0.5 mg tablet 1 tab PO BID PRN (Reason: Anxiety) melatonin 3 mg tablet 3 mg PO BEDTIME cyanocobalamin (vitamin B-12) [Vitamin B-12] 500 mcg tablet 1 tab PO DAILY aripiprazole 20 mg tablet 1 tab PO DAILY sennosides [senna] 8.6 mg tablet 2 tab PO DAILY gabapentin 600 mg tablet 1 tab PO TID levothyroxine 25 mcg tablet 1 tab PO DAILY Jardiance 25 mg tablet 1 tab PO DAILY insulin aspart U-100 100 unit/mL (3 mL) insulin pen See Protocol subcut TIDAC Protocol: Insulin Correction Scale Less than or equal to 110 ---- Give (units): 0 111 to 150 Give (units): 0 151 to 200 Give (units): 2 201 to 250 Give (units): 4 251 to 300 Give (units): 6 301 to 350 Give (units): 8 Greater than 350 Give (units): 10 Call MD if Blood Glucose > : 350 Label Comments: Sliding scale Rx Instructions: Novolog sliding scale 3 times daily (200-250: 4 units, 251-300: 6 units, 301 - 350: 8 units, >351: 10 units albuterol sulfate 90 mcg/actuation HFA aerosol inhaler 2 puff inhalation Q4H PRN (Reason: Shortness Of Breath) 60 Days Qty: 8.5 2RF
[2022-07-29] MEDS: Nitrofurantoin Monohyd/M-Cryst 100 MG CAPSULE PO (03:09)
[2022-07-29 04:01] LABS: MANUAL DIFF FLAG NO
[2022-07-29 04:40] VITALS: BP 110/58; PULSE 85; RESP 16; TEMP 36.4; O2SAT 92
--- NOTE | 2022-07-29 05:43 | PC.NURSE ---
Patient slept through the night, no distress observed/reported, patient is coherent with no psychiatric issues, + UTI/administered first dose Macrobid/patient is medication compliant, awaiting care team evaluation in the morning, ambulates well with walker, VSS, will continue to monitor.
[2022-07-29] MEDS: Levothyroxine Sodium 25 MCG TABLET PO (06:59)
[2022-07-29 07:44] VITALS: BP 101/45; PULSE 86; RESP 16; TEMP 36.3; O2SAT 92
--- NOTE | 2022-07-29 07:48 | PC.NURSE ---
Pt awake, alert, calm and cooperative. Awaiting crisis eval at this time.
[2022-07-29] MEDS: Omeprazole 20 MG CAPSULE.DR PO (08:29)
[2022-07-29] MEDS: Atorvastatin Calcium 40 MG TABLET PO (08:29)
[2022-07-29] MEDS: Sennosides 8.6 MG TABLET 17.2 MG PO (08:29)
[2022-07-29] MEDS: Cyanocobalamin (Vitamin B-12) 500 MCG TABLET PO (08:29)
[2022-07-29] MEDS: Cholecalciferol (Vitamin D3) 25 MCG TABLET 50 MCG PO (08:29)
[2022-07-29] MEDS: Gabapentin 600 MG TABLET PO (08:30)
== END 2022-07-29 08:40 | disposition home or self-care (01) ==
PROVIDERS: Emergency Provider Emergency Medicine; PCP Internal Medicine
DX: N39.0 Urinary tract infection, site not specified (principal); F41.1 Generalized anxiety disorder; F43.0 Acute stress reaction; F17.210 Nicotine dependence, cigarettes, uncomplicated; Z20.822 Contact with and (suspected) exposure to COVID-19; Z20.828 Contact with and (suspected) exposure to other viral communicable diseases; Z71.6 Tobacco abuse counseling; Z79.899 Other long term (current) drug therapy
CPT/HCPCS: 36415; 80053; 80143; 80179; 80307; 81001; 82077; 85025; 87635; 99284; S9485

== ENCOUNTER → 2022-08-23 13:19 | Outpatient (BNVA) | payer OTHER, SELFPAY | PROVIDERS: PCP Internal Medicine; Visit Provider Internal Medicine | DX: J44.9 Chronic obstructive pulmonary disease, unspecified (principal); R91.1 Solitary pulmonary nodule; G47.34 Idiopathic sleep related nonobstructive alveolar hypoventilation; F17.210 Nicotine dependence, cigarettes, uncomplicated; Z99.81 Dependence on supplemental oxygen; Z79.4 Long term (current) use of insulin; Z79.899 Other long term (current) drug therapy | CPT/HCPCS: 99212 ==

== ENCOUNTER 2022-09-20 10:41 | Outpatient (REF) | payer OTHER, SELFPAY | END 2022-09-20 10:42 | disposition home or self-care (01) | LOC: HO.LNP 10:41 | PROVIDERS: PCP Internal Medicine; Visit Provider Obstetrics & Gynecology | DX: N76.6 Ulceration of vulva (principal) | CPT/HCPCS: 56605; 87255; 88305; 88312; 99212 ==

== ENCOUNTER 2022-10-03 00:08 | Inpatient (IN) | payer OTHER, SELFPAY ==
[2022-10-03] VITALS (16 sets, daily range): BP systolic 97–132; BP diastolic 39–78; PULSE 46–110; RESP 14–28; TEMP 35.8–37.9; O2SAT 84–96; BMI 30.1
--- NOTE | ~2022-10-03 | XR_ITS ---
EXAMINATION: XR CHEST CLINICAL INFORMATION: History of COPD. Evaluate for pneumonia. COMPARISON: 06/16/2022 TECHNIQUE: Frontal view of the chest was obtained. FINDINGS: Normal symmetric lung volumes. No parenchymal consolidation. No pleural effusion. No pneumothorax. Cardiomediastinal silhouette and pulmonary vascularity are within normal limits. No acute osseous abnormalities. XR/XR chest 1V IMPRESSION: Clear lungs
--- NOTE | 2022-10-03 00:20 | ECG_ITS ---
Test Reason : SOB Blood Pressure : / mmHG Vent. Rate : 101 BPM Atrial Rate : 101 BPM P-R Int : 154 ms QRS Dur : 084 ms QT Int : 320 ms P-R-T Axes : 050 061 037 degrees QTc Int : 414 ms Sinus tachycardia Otherwise normal ECG When compared with ECG of 18-JUN-2022 11:23, No significant change was found Referred By: Shanice Metcalf Electronically Signed By:Axel Spear
[2022-10-03] MEDS: Albuterol Sulfate (0.083%) 2.5 MG/3 ML VIAL.NEB 10 MG INHALE (00:36)
[2022-10-03] MEDS: Magnesium Sulfate/H2O 2 GM/50 ML PIGGYBACK IV (00:44)
[2022-10-03 00:45] LABS: MANUAL DIFF FLAG NO
[2022-10-03] MEDS: levoFLOXacin/D5W 500 MG/100 ML PIGGYBACK 100 MG IV (00:45)
[2022-10-03] MEDS: methylPREDNISolone Sod Succ 125 MG/2 ML VIAL IVPUSH (00:45)
[2022-10-03 00:46] LABS: Basophils Percent Auto 0.2 % (0-2); Hematocrit 38.9 % (37.0-47.0); Imm Gran Abs Auto 0.04 X10*3/uL (0.00-0.03); Imm Gran Pct Auto 0.3 % (0.0-0.4); Lymphocytes Absolute Auto 1.1 X10*3/uL (1.2-4.9); Lymphocytes Percent Auto 8.6 % (20-40); Mean Corpuscular HGB Conc 33.4 g/dl (31.0-35.0); Mean Corpuscular Hemoglobin 29.6 pg (27.0-33.0); Mean Corpuscular Volume 88.6 fL (80.0-98.0); Mean Platelet Volume 10.5 fL (9.4-12.3); Monocytes Absolute Auto 1.1 X10*3/uL (0.1-1.2); Monocytes Percent Auto 8.4 % (2-11); Neutrophils Absolute Auto 10.7 x10*3/uL (2.0-8.3); Neutrophils Percent Auto 82.5 % (45-73); Platelet Count 194 X10*3/uL (160-400); Red Blood Count 4.39 X10*6/uL (4.20-5.50); Red Cell Distribution Width 13.5 % (11.0-16.0); White Blood Count 12.9 X10*3/uL (4.8-10.8)
[2022-10-03] MEDS: 0.9 % Sodium Chloride 1,000 ML 999 ML IVCONT (00:49)
[2022-10-03 00:51] LABS: VBG HCO3 23 mmol/L (22-26); VBG pCO2 39 mmHg; VBG pH 7.38 (7.32-7.43); VBG pO2 71 mmHg
[2022-10-03 00:55] LABS: INTERNATIONAL NORM RATIO 1.1 (0.9-1.1); Prothrombin Time 13.2 SEC (10.0-13.1)
[2022-10-03 00:56] LABS: Venous Blood Gas Refer to POC result
[2022-10-03 00:58] LABS: Lactic Acid 0.7 mmol/L (0.5-2.0)
--- NOTE | 2022-10-03 00:59 | ED_ITS ---
HPI - SOB/Dyspnea General Chief Complaint: Dyspnea Stated Complaint: DIFFICULTY BREATHING Source: patient and EMS Mode of arrival: EMS Limitations: no limitations History of Present Illness HPI Narrative: Patient comes to the emergency room via ambulance complaining of cough and shortness of breath for 2 days. Patient states that she has history of COPD and her wheezing has gradually gotten worse over last 2 days. Patient uses 2 L at home. When EMS arrived to the patient's residence, patient was saturating in the low 80s on her 2 L. To improve oxygen saturation, patient's oxygen was increased to 6 L. Related Data Home Medications Medication Instructions Recorded Confirmed empagliflozin 25 mg tablet 1 tab PO DAILY 06/16/22 09/28/22 (Jardiance) levothyroxine 25 mcg tablet 1 tab PO DAILY 06/16/22 09/28/22 atorvastatin 40 mg tablet 1 tab PO DAILY 07/28/22 09/28/22 cholecalciferol (vitamin D3) 50 1 tab PO DAILY 07/28/22 09/28/22 mcg (2,000 unit) tablet clonazepam 0.5 mg tablet 1 tab PO BID PRN Anxiety 07/28/22 09/28/22 cyanocobalamin (vitamin B-12) 500 1 tab PO DAILY 07/28/22 09/28/22 mcg tablet (Vitamin B-12) esomeprazole magnesium 40 mg 1 cap PO DAILY 07/28/22 09/28/22 capsule,delayed release fenofibrate 160 mg tablet 1 tab PO DAILY 07/28/22 09/28/22 quetiapine 25 mg tablet 50 mg PO BID PRN Anxiety 07/28/22 09/28/22 quetiapine 50 mg tablet 75 mg PO BEDTIME 07/28/22 09/28/22 gabapentin 600 mg tablet 1 tab PO TID 07/29/22 09/28/22 sennosides 8.6 mg tablet (senna) 2 tab PO DAILY 07/29/22 09/28/22 aripiprazole 15 mg tablet 20 mg PO DAILY 09/28/22 09/28/22 fluticasone propionate 230 2 puff inhalation BID 09/28/22 09/28/22 mcg-salmeterol 21 mcg/actuation HFA inhaler (Advair HFA) latanoprost 0.005 % eye drops 1 drp ophthalmic (eye) QPM 09/28/22 09/28/22 melatonin 3 mg tablet 9 mg PO BEDTIME 09/28/22 09/28/22 vitamins A,C,K-bilk-latinh 4,296 1 cap PO BID 09/28/22 09/28/22 mcg-226 mg-90 mg capsule (PreserVision AREDS) Previous Rx's Medication Instructions Recorded liraglutide 0.6 mg/0.1 mL (18 mg/3 1.8 mg (0.3 mL) subcut DAILY 90 07/01/21 mL) subcutaneous pen injector days #27 mL (Victoza 3-Jeanmarie) albuterol sulfate 90 mcg/actuation 2 puff inhalation Q4H PRN 06/03/22 aerosol inhaler Shortness Of Breath 60 days #8.5 grams insulin degludec 100 unit/mL (3 36 unit (0.36 mL) subcut DAILY #15 06/10/22 mL) subcutaneous pen (Tresiba mL FlexTouch U-100 insulin) pioglitazone 15 mg tablet 15 mg PO DAILY 30 days #30 tabs 08/25/22 zinc oxide-white petrolatum 15 1 appl topical BID-QID PRN skin 09/29/22 %-49 % topical ointment irritation #113 grams (Sensi-Care Protective Barrier) docusate sodium 100 mg capsule 100 mg PO BID #180 caps 10/01/22 Allergies Allergy/AdvReac Type Severity Reaction Status Date / Time ziprasidone [From Geodon] Allergy Mild RASH-PALPIT Verified 09/20/22 10:50 ATIONS aspirin [ASPIRIN] Allergy Unknown GI bleed, Verified 09/20/22 10:50 stomach upset azithromycin Allergy Unknown facial Verified 09/20/22 10:50 swelling cephalexin [From KEFLEX] Allergy Unknown can't Verified 09/20/22 10:50 remember ibuprofen [IBUPROFEN] Allergy Unknown UNKNOWN, Verified 09/20/22 10:50 stomach upset lisinopril Allergy Unknown cough Verified 09/20/22 10:50 metformin [METFORMIN] Allergy Unknown NAUSEA & Verified 09/20/22 10:50 VOMITING, GI upset valsartan [From Diovan] Allergy Unknown hives Verified 09/20/22 10:50 tiotropium AdvReac Intermediate Unknown Verified 09/20/22 10:50 [From Spiriva with HandiHaler] NSAIDS (Non-Steroidal AdvReac Unknown HX OF GI Verified 09/20/22 10:50 Anti-Inflamma BLEED [NSAIDS (NON-STEROIDAL ANTI-INFLAMMA] tramadol [Ultram] AdvReac Unknown GI upset Verified 09/20/22 10:50 Review of Systems Review of Systems: Constitutional : No Weight loss, No Fever, No Chills, No Night Sweats, No Fatigue, No Malaise ENT/Mouth : No Hearing loss, No Ear Pain, No Nasal Congestion, No Sinus Pain, No Hoarseness, No sore throat, No Rhinorrhea, No Swallowing Difficulty Eyes: No Eye Pain, No Swelling, No Redness, No Foreign Body, No Discharge, No Vision Changes Cardiovascular : No Chest Pain, No SOB, No Dyspnea on Exertion, No Orthopnea, No Edema, No Palpitations Respiratory : Complaining of worsening cough with sputum, worsening wheezing, worsening shortness of breath Gastrointestinal : No Nausea, No Vomiting, No Diarrhea, No Constipation, No abdominal Pain, No Hematochezia, No Melena Genitourinary : no irregular bleeding, No Dysuria, No Urinary Frequency, No Hematuria, No Urinary Incontinence, No Urgency, No Flank Pain, No Urinary Flow Changes, No Hesitancy Musculoskeletal : No joint pain, No Myalgias, No Joint Swelling Skin : No Skin Lesions, No rash Neuro : No Weakness, No Numbness, No Paresthesias, No Loss of Consciousness, No Dizziness, No Headache Psych : No Anxiety/Panic, No Depression, No SI/HI/AH/VH, No Social Issues, Heme/Lymph: No Bruising, No Bleeding,No Lymphadenopathy Endocrine : No Polyuria, No Polydipsia, No Temperature Intolerance PMFSH Past Medical History Medical History Chest pain Constipation COPD (chronic obstructive pulmonary disease) Depression العلي (dyspnea on exertion) HLD (hyperlipidemia) Jaw pain Lower extremity pain Multinodular thyroid Nocturnal hypoxemia Osteopenia (~2015) Personal history of nicotine dependence Pulmonary nodule Recurrent major depression-severe Sialoadenitis Smoker Spinal stenosis T2DM (type 2 diabetes mellitus) (~2008) Vitamin D deficiency Surgical History History of cardiac catheterization History of lithotripsy Hx of arthroscopy of left knee Hx of cholecystectomy Hx of colonoscopy Hx of spinal fusion S/P thyroid biopsy Family History Family History Father No problems noted. Mother Cancer Diabetes Social History Social History Household Members: None Housing: Apartment Do you presently have visiting nurse or other home services: Yes Alcohol intake: current Alcohol intake frequency: holidays/special occasions only Patient Tobacco Use Status: Current everyday Tobacco user Smoking Start Date: 04/01/1964 Tobacco use type: Cigarette Cigarette Packs Per Day: 0.5 Cigarettes Per Day: 10 Smoked in Last 30 Days: No e-Cigarette/Vaping Use: Former Use Second Hand Smoke Exposure: Yes Use of substances other than those prescribed or required for medical reasons: No Advance Directives Date on File: 04/02/21 service: No Current occupational status: retired Sexual orientation: Straight/Heterosexual Cognitive needs: No Hearing needs: No Vision needs: No Physical Exam Vital Signs: Vital Signs: Last Vital Signs Temp 100.3 F 10/03/22 00:50 Pulse 103 H 10/03/22 00:50 Resp 20 10/03/22 00:50 BP 102/46 L 10/03/22 00:50 Pulse Ox 94 10/03/22 00:50 O2 Del Method Nasal Cannula, Ae rosol Mask 10/03/22 00:50 O2 Flow Rate 5 10/03/22 00:50 Oxygen Flow Rate 5 10/03/22 00:11 BMI result Body Mass Index 30.1 Const: Other: Appearance: Alert. Oriented X3. No acute distress. Eyes: Pupils equal, round and reactive to light. ENT: Pharynx normal. Neck: Normal inspection. Neck supple. No lymph nodes noted. No crepitus CVS: Normal heart rate and rhythm. Pulses normal. Normal S1 and S2 Respiratory: Mild respiratory distress, oxygen saturation 84% on 2 L, now on a 5 L saturating in the low 90s. Wheezing bilaterally, decreased air movement Abdomen: Soft and nontender. No rigidity. No distention. Skin: Skin warm and dry. Normal skin color. Normal skin turgor. Extremities: No lower extremity edema. No Lacerations. No Rash Neuro: Oriented X 3. No motor deficit. No sensory deficit. Moving all extremities. No slurred speech. CN 2 through 12 grossly intact Psych: calm, cooperative, normal affect Medications Administered Generic Name Dose Route Start Last Admin Trade Name Freq PRN Reason Stop Dose Admin Sodium Chloride 1,000 mls @ 999 mls/hr 10/03/22 00:19 10/03/22 00:49 Ns IVCONT 10/03/22 01:19 999 mls/hr .Q1H1M ONE Administration Magnesium Sulfate 2 gm in 50 mls @ 25 mls/hr 10/03/22 00:19 10/03/22 00:44 Magnesium Sulfate/H2o IV 10/03/22 02:18 25 mls/hr ONCE ONE Administration Levofloxacin 500 mg in 100 mls @ 100 mls/hr 10/03/22 00:19 10/03/22 00:45 Levaquin IV 10/03/22 01:18 100 mls/hr ONCE ONE Administration Discontinued Medications Generic Name Dose Route Start Last Admin Trade Name Freq PRN Reason Stop Dose Admin Albuterol Sulfate 10 mg 10/03/22 00:19 10/03/22 00:36 Albuterol Sulfate (0.083%) 2.5 Mg/3 Ml Vial.Neb INHALE 10/03/22 00:20 10 mg ONCE ONE Administration Methylprednisolone Sodium Succinate 125 mg 10/03/22 00:19 10/03/22 00:45 Methylprednisolone Sod Succ 125 Mg/2 Ml Vial IVPUSH 10/03/22 00:20 125 mg ONCE ONE Administration Medical Decision Making Medical Decision Making [facility] Narrative: -of patient's labs are pending. Patient is being empirically treated for COPD exacerbation, due to her allergies patient is being given levofloxacin come fl uids being given based on ideal weight of 50 kg. Patient is obese. -discussed with the patient that I recommend hospitalization, patient using more oxygen than her baseline, still uncomfortable breathing. No chest pain. Patient agrees with plan. -I discussed the patient with Dr. Turner Patient being admitted. -chest x-ray interpreted by me: No pneumonia, radiology report pending. Patient has already been treated with antibiotics. Differential Diagnosis Differential Diagnoses: The differential diagnosis associated with the pres entation includes (COPD, pneumonia, asthma) Admission/Observation Consideration of admission/observation: Escalation of care including admission/observation considered Consult Healthcare Provider Management of the patient was discussed with: Hospitalist Lab Data [facility] Lab Attestation statement: I reviewed the patient's lab results. 10/03/22 00:36 10/03/22 00:36 Labs: Lab Results 10/03/22 10/03/22 10/03/22 Range/Units 00:36 00:36 00:36 WBC 12.9 H (4.8-10.8) X10*3/uL RBC 4.39 (4.20-5.50) X10*6/uL Hgb 13.0 (12.0-16.0) g/dl Hct 38.9 (37.0-47.0) % MCV 88.6 (80.0-98.0) fL MCH 29.6 (27.0-33.0) pg MCHC 33.4 (31.0-35.0) g/dl RDW 13.5 (11.0-16.0) % Plt Count 194 (160-400) X10*3/uL MPV 10.5 (9.4-12.3) fL Immature Gran % (Auto) 0.3 (0.0-0.4) % Neut % (Auto) 82.5 H (45-73) % Lymph % (Auto) 8.6 L (20-40) % Stanly % (Auto) 8.4 (2-11) % Eos % (Auto) 0.0 (0-4) % Baso % (Auto) 0.2 (0-2) % Lymph # (Auto) 1.1 L (1.2-4.9) X10*3/uL Stanly # (Auto) 1.1 (0.1-1.2) X10*3/uL Eos # (Auto) 0.0 (0.0-0.4) X10*3/uL Baso # (Auto) 0.0 (0.0-0.2) X10*3/uL Abs Immat Gran (auto) 0.04 H (0.00-0.03) X10*3/uL Absolute Neuts (auto) 10.7 H (2.0-8.3) x10*3/uL Absolute Nucleated RBC 0.000 (0.0-0.012) X10*3/uL Nucleated RBC % (auto) 0.0 (0.0-0.2) /100WBC PT 13.2 H (10.0-13.1) SEC INR 1.1 (0.9-1.1) VBG pH (7.32-7.43) VBG pCO2 mmHg VBG pO2 mmHg VBG HCO3 (22-26) mmol/L VBG O2 Saturation % VBG Base Excess mmol/L Lactic Acid 0.7 (0.5-2.0) mmol/L 10/03/22 Range/Units 00:42 WBC (4.8-10.8) X10*3/uL RBC (4.20-5.50) X10*6/uL Hgb (12.0-16.0) g/dl Hct (37.0-47.0) % MCV (80.0-98.0) fL MCH (27.0-33.0) pg MCHC (31.0-35.0) g/dl RDW (11.0-16.0) % Plt Count (160-400) X10*3/uL MPV (9.4-12.3) fL Immature Gran % (Auto) (0.0-0.4) % Neut % (Auto) (45-73) % Lymph % (Auto) (20-40) % Stanly % (Auto) (2-11) % Eos % (Auto) (0-4) % Baso % (Auto) (0-2) % Lymph # (Auto) (1.2-4.9) X10*3/uL Stanly # (Auto) (0.1-1.2) X10*3/uL Eos # (Auto) (0.0-0.4) X10*3/uL Baso # (Auto) (0.0-0.2) X10*3/uL Abs Immat Gran (auto) (0.00-0.03) X10*3/uL Absolute Neuts (auto) (2.0-8.3) x10*3/uL Absolute Nucleated RBC (0.0-0.012) X10*3/uL Nucleated RBC % (auto) (0.0-0.2) /100WBC PT (10.0-13.1) SEC INR (0.9-1.1) VBG pH 7.38 (7.32-7.43) VBG pCO2 39 mmHg VBG pO2 71 mmHg VBG HCO3 23 (22-26) mmol/L VBG O2 Saturation 95.0 % VBG Base Excess -1.0 mmol/L Lactic Acid (0.5-2.0) mmol/L Critical Care Time Critical Care Time Critical Care Time: Yes Total Critical Care Time: 60 Attestation: I have personally provided critical care time. Time includes review of lab data, radiology results, discussion with consultants, and monitoring for potential decompensation. Intervention performed as documented. Discharge Plan Discharge Clinical Impression: Acute exacerbation of chronic obstructive pulmonary disease (COPD) Patient Disposition: Admitted As Inpatient Prescriptions: No Action Victoza 3-Jeanmarie 0.6 mg/0.1 mL (18 mg/3 mL) pen injector 1.8 mg subcut DAILY 90 Days Qty: 27 11RF Tresiba FlexTouch U-100 100 unit/mL (3 mL) insulin pen 36 unit subcut DAILY Qty: 15 6RF pioglitazone 15 mg tablet 15 mg PO DAILY 30 Days Qty: 30 11RF Sensi-Care Protective Barrier 15-49 % ointment 1 appl topical BID-QID PRN (Reason: skin irritation) Qty: 113 0RF docusate sodium 100 mg capsule 100 mg PO BID Qty: 180 0RF quetiapine 25 mg tablet 50 mg PO BID PRN (Reason: Anxiety) atorvastatin 40 mg tablet 1 tab PO DAILY esomeprazole magnesium 40 mg capsule,delayed release(DR/EC) 1 cap PO DAILY fenofibrate 160 mg tablet 1 tab PO DAILY quetiapine 50 mg tablet 75 mg PO BEDTIME cholecalciferol (vitamin D3) 50 mcg (2,000 unit) tablet 1 tab PO DAILY clonazepam 0.5 mg tablet 1 tab PO BID PRN (Reason: Anxiety) cyanocobalamin (vitamin B-12) [Vitamin B-12] 500 mcg tablet 1 tab PO DAILY sennosides [senna] 8.6 mg tablet 2 tab PO DAILY gabapentin 600 mg tablet 1 tab PO TID melatonin 3 mg tablet 9 mg PO BEDTIME levothyroxine 25 mcg tablet 1 tab PO DAILY Jardiance 25 mg tablet 1 tab PO DAILY PreserVision AREDS 4,296 mcg-226 mg-90 mg capsule 1 cap PO BID latanoprost 0.005 % drops 1 drp ophthalmic (eye) QPM Advair HFA 230-21 mcg/actuation HFA aerosol inhaler 2 puff inhalation BID albuterol sulfate 90 mcg/actuation HFA aerosol inhaler 2 puff inhalation Q4H PRN (Reason: Shortness Of Breath) 60 Days Qty: 8.5 2RF aripiprazole 15 mg tablet 20 mg PO DAILY
[2022-10-03 01:03] LABS: Alanine Aminotransferase 12 U/L (0-31); Alkaline Phosphatase 47 U/L (39-117); Anion Gap 14 (12-20); Aspartate Amino Transferase 16 U/L (5-31); Bilirubin Direct 0.3 mg/dL (0.0-0.5); Bilirubin Total 0.9 mg/dL (0.0-1.0); Blood Urea Nitrogen 9 mg/dL (9-16); Calcium 8.8 mg/dL (8.4-10.2); Carbon Dioxide 25 mmol/L (22-29); Chloride 104 mmol/L (96-108); Creatinine Clr Calc Pharmacy 59.7; Estimated Glomerular Filt Rate > 60; Glucose Random 151 mg/dL (60-115); Sodium 139 mmol/L (135-145); Total Protein 6.1 g/dL (6.5-8.0)
[2022-10-03 01:04] LABS: Troponin-I High Sensitivity 4.8 ng/L (<3.5-17.0)
[2022-10-03 01:09] LABS: B Type Natriuretic Peptide 16 pg/mL (<100)
[2022-10-03 01:22] LABS: Influenza A PCR NEGATIVE (Negative); Influenza B PCR NEGATIVE (Negative); Resp Syncy Virus RNA Qual PCR NEGATIVE (Negative); SARS COV2 PCR INHOUSE NEGATIVE (Negative)
[2022-10-03] MEDS: methylPREDNISolone Sod Succ 40 MG/ML VIAL IVPUSH ×2 (02:29→13:18)
--- NOTE | 2022-10-03 02:32 | PC.NURSE ---
Addendum entered by Cammy Anglin 10/03/22 02:57: still no answer from MD at this time Original Note: blood pressure has been trending low the last three readings, this RN chris texted Dr. Turner, no answer at this time. Pt has been placed in semi-trendelenburg with some improvement
--- NOTE | 2022-10-03 02:58 | PC.NURSE ---
pt sleeping at this time, respirations equal and non labored but still tachypnec, no apparent distress. occasionally coughing, currently non-productive. Report given to KIMMY Millard
[2022-10-03 05:55] LABS: Basophils Percent Auto 0.2 % (0-2); Hematocrit 38.1 % (37.0-47.0); Hemoglobin 12.4 g/dl (12.0-16.0); Imm Gran Abs Auto 0.05 X10*3/uL (0.00-0.03); Imm Gran Pct Auto 0.4 % (0.0-0.4); Lymphocytes Absolute Auto 0.4 X10*3/uL (1.2-4.9); Lymphocytes Percent Auto 3.3 % (20-40); MANUAL DIFF FLAG SCAN; Mean Corpuscular HGB Conc 32.5 g/dl (31.0-35.0); Mean Corpuscular Hemoglobin 29.4 pg (27.0-33.0); Mean Corpuscular Volume 90.3 fL (80.0-98.0); Mean Platelet Volume 10.7 fL (9.4-12.3); Monocytes Absolute Auto 0.3 X10*3/uL (0.1-1.2); Neutrophils Absolute Auto 12.2 x10*3/uL (2.0-8.3); Neutrophils Percent Auto 94.1 % (45-73); Platelet Count 187 X10*3/uL (160-400); Red Blood Count 4.22 X10*6/uL (4.20-5.50); Red Cell Distribution Width 13.4 % (11.0-16.0); SCAN SMEAR FLAG 1; White Blood Count 12.9 X10*3/uL (4.8-10.8)
--- NOTE | 2022-10-03 05:57 | PC.NURSE ---
Pt requested to use bathroom with bed side commode. This RN stood by the pt as they transferred themselves via stand pivot to bed side commode. Pt able to maintain SpO2 above 90% with O2 at 4 lpm after transfer. Pt having increased wheezing after transferring back to bed, complaining of some SOB. RT contacted to administer PRN hugo neb.
--- NOTE | 2022-10-03 06:15 | P.HPHOSP_ITS ---
History of Present Illness Date of Service: 10/03/22 Chief Complaint: Shortness of breath 71-year-old female with past medical history of COPD on baseline 2 L of oxygen, diabetes, ADDIS noncompliant with CPAP, nocturnal hypoxia, GERD, HLD, presents to the hospital with complaints of cough, shortness of breath and sputum production. Patient is also complaining of chills, feeling feverish, no chest pain, no abdominal pain, no nausea or vomiting, no diarrhea constipation, no urinary symptoms. And no lower extremity edema. On arrival to the ED patient hemodynamically stable with a heart rate of 103, satting 90-92% on 5 L of oxygen Labs are significant for thirty BC count of 12.9, pH of 7.38 with a pCO2 of 39, labs otherwise unremarkable, COVID-19 influenza and RSV negative Chest x-ray negative Review of Systems Review of Systems: Yes all other systems are reviewed and are negative [facility] Medical History Chest pain Constipation COPD (chronic obstructive pulmonary disease) Depression العلي (dyspnea on exertion) HLD (hyperlipidemia) Jaw pain Lower extremity pain Multinodular thyroid Nocturnal hypoxemia Osteopenia (~2015) Personal history of nicotine dependence Pulmonary nodule Recurrent major depression-severe Sialoadenitis Smoker Spinal stenosis T2DM (type 2 diabetes mellitus) (~2008) Vitamin D deficiency Family History Father No problems noted. Mother Cancer Diabetes Surgical History History of cardiac catheterization History of lithotripsy Hx of arthroscopy of left knee Hx of cholecystectomy Hx of colonoscopy Hx of spinal fusion S/P thyroid biopsy Social History Household Members: None Housing: Apartment Do you presently have visiting nurse or other home services: Yes Alcohol intake: current Alcohol intake frequency: holidays/special occasions only Patient Tobacco Use Status: Never used Tobacco Tobacco use type: Cigarette Cigarette Packs Per Day: 0.5 Cigarettes Per Day: 10 Smoked in Last 30 Days: No e-Cigarette/Vaping Use: Former Use Second Hand Smoke Exposure: Yes Use of substances other than those prescribed or required for medical reasons: No Advance Directives: Yes Advance Directives on File: Yes Advance Directives Date on File: 04/02/21 Nutrition Risks: No Nutritional Risk service: No Current occupational status: retired Sexual orientation: Straight/Heterosexual Cognitive needs: No Hearing needs: No Vision needs: No Meds Allergies Allergy/AdvReac Type Severity Reaction Status Date / Time ziprasidone [From Geodon] Allergy Mild RASH-PALPIT Verified 10/03/22 02:27 ATIONS aspirin [ASPIRIN] Allergy Unknown GI bleed, Verified 10/03/22 02:27 stomach upset azithromycin Allergy Unknown facial Verified 10/03/22 02:27 swelling cephalexin [From KEFLEX] Allergy Unknown can't Verified 10/03/22 02:27 remember ibuprofen [IBUPROFEN] Allergy Unknown UNKNOWN, Verified 10/03/22 02:27 stomach upset lisinopril Allergy Unknown cough Verified 10/03/22 02:27 metformin [METFORMIN] Allergy Unknown NAUSEA & Verified 10/03/22 02:27 VOMITING, GI upset valsartan [From Diovan] Allergy Unknown hives Verified 10/03/22 02:27 tiotropium AdvReac Intermediate Unknown Verified 10/03/22 02:27 [From Spiriva with HandiHaler] NSAIDS (Non-Steroidal AdvReac Unknown HX OF GI Verified 10/03/22 02:27 Anti-Inflamma BLEED [NSAIDS (NON-STEROIDAL ANTI-INFLAMMA] tramadol [Ultram] AdvReac Unknown GI upset Verified 10/03/22 02:27 Active Medications: Current Medications Acetaminophen (Acetaminophen 325 Mg Tablet) 650 mg PO Q6H PRN PRN Reason: Pain, Mild (Pain Scale 1-3) Albuterol Sulfate (Albuterol Sulfate (0.083%) 2.5 Mg/3 Ml Vial.Neb) 2.5 mg INHALE Q4H PRN PRN Reason: Shortness of Breath/Wheezing Docusate Sodium (Docusate Sodium 100 Mg Capsule) 100 mg PO DAILY PRN PRN Reason: Constipation Enoxaparin Sodium (Enoxaparin Sodium 30 Mg/0.3 Ml Syringe) 30 mg SUBCUT Q24H ROBIN Methylprednisolone Sodium Succinate (Methylprednisolone Sod Succ 40 Mg/Ml Vial) 40 mg IVPUSH Q12H ROBIN Last Admin: 10/03/22 02:29 Dose: 40 mg Ondansetron HCl (Ondansetron Hcl 4 Mg/2 Ml Vial) 4 mg IVPUSH Q8H PRN PRN Reason: Nausea and Vomiting Pharmacy Consult (Consult Rx Perform Med Rec) 1 each MISCELLANE ONCE PRN PRN Reason: Consult order Sodium Chloride (0.9 % Sodium Chloride Flush 3 Ml Syringe) 3 ml IVFLUSH [facility] Home Medications Medication Instructions Recorded Confirmed Last Taken Type empagliflozin 25 mg tablet 1 tab PO DAILY 06/16/22 10/03/22 10/02/22 History (Jardiance) levothyroxine 25 mcg tablet 1 tab PO DAILY 06/16/22 10/03/22 10/02/22 History atorvastatin 40 mg tablet 1 tab PO DAILY 07/28/22 10/03/22 10/02/22 History cholecalciferol (vitamin D3) 50 1 tab PO DAILY 07/28/22 10/03/22 10/02/22 History mcg (2,000 unit) tablet clonazepam 0.5 mg tablet 1 tab PO BID PRN Anxiety 07/28/22 10/03/22 09/30/22 History cyanocobalamin (vitamin B-12) 500 1 tab PO DAILY 07/28/22 10/03/22 10/02/22 History mcg tablet (Vitamin B-12) esomeprazole magnesium 40 mg 1 cap PO DAILY 07/28/22 10/03/22 10/02/22 History capsule,delayed release fenofibrate 160 mg tablet 1 tab PO DAILY 07/28/22 10/03/22 10/02/22 History quetiapine 25 mg tablet 50 mg PO BID PRN Anxiety 07/28/22 10/03/22 10/02/22 History quetiapine 50 mg tablet 75 mg PO BEDTIME 07/28/22 10/03/22 10/02/22 History gabapentin 600 mg tablet 1 tab PO TID 07/29/22 10/03/22 10/02/22 History sennosides 8.6 mg tablet (senna) 2 tab PO DAILY 07/29/22 10/03/22 10/02/22 History aripiprazole 15 mg tablet 20 mg PO DAILY 09/28/22 10/03/22 10/02/22 History latanoprost 0.005 % eye drops 1 drp ophthalmic (eye) QPM 09/28/22 10/03/22 10/02/22 History melatonin 3 mg tablet 9 mg PO BEDTIME 09/28/22 10/03/22 10/02/22 History Physical Exam Vital Signs and Narrative: Vital Signs: Last Vital Signs Temp 98.6 F 10/03/22 06:05 Pulse 97 10/03/22 06:05 Resp 14 10/03/22 06:05 BP 124/46 L 10/03/22 06:05 Pulse Ox 94 10/03/22 06:05 O2 Del Method Nasal Cannula 10/03/22 06:05 O2 Flow Rate 4 10/03/22 06:05 Oxygen Flow Rate 5 10/03/22 00:11 BMI result Body Mass Index 30.1 Const: General: cooperative and no acute distress Orientation/consciousness: patient oriented x3 Eyes: General: appearance normal, both eyes and all related structures Resp: Other: Significant auditory wheezing Effort & Inspection: normal respiratory effort Cardio: Rate: regular rate Rhythm: regular rhythm GI: Palpation (GI): Soft to palpation Auscultation: normal bowel sounds Skin: General skin exam: no rashes or lesions noted Neuro: General: patient oriented x3 Cognition (Neuro): normal cognition Extrem: General: Yes normal to inspection and Yes no pedal edema Results Labs 10/03/22 00:36 10/03/22 00:36 Labs: Laboratory Results - last 24 hr 10/03/22 10/03/22 10/03/22 00:36 00:36 00:36 MCV 88.6 MCH 29.6 MCHC 33.4 RDW 13.5 Plt Count 194 MPV 10.5 Immature Gran % (Auto) 0.3 Neut % (Auto) 82.5 H Lymph % (Auto) 8.6 L Douglas % (Auto) 8.4 Eos % (Auto) 0.0 Baso % (Auto) 0.2 Lymph # (Auto) 1.1 L Douglas # (Auto) 1.1 Eos # (Auto) 0.0 Baso # (Auto) 0.0 Abs Immat Gran (auto) 0.04 H Absolute Neuts (auto) 10.7 H Absolute Nucleated RBC 0.000 Nucleated RBC % (auto) 0.0 PT 13.2 H INR 1.1 VBG pH VBG pCO2 VBG pO2 VBG HCO3 VBG O2 Saturation VBG Base Excess Anion Gap 14 Estim Creat Clear Calc 59.7 Estimated GFR > 60 Random Glucose 151 H Lactic Acid Calcium 8.8 Total Bilirubin 0.9 Direct Bilirubin 0.3 AST 16 ALT 12 Alkaline Phosphatase 47 Troponin I High Sens B-Natriuretic Peptide Total Protein 6.1 L Albumin 4.0 Influenza Type A (PCR) Influenza Type B (PCR) RSV RNA Qual (PCR) SARS-CoV-2 RNA (RT-PCR) 10/03/22 10/03/22 10/03/22 00:36 00:36 00:36 MCV MCH MCHC RDW Plt Count MPV Immature Gran % (Auto) Neut % (Auto) Lymph % (Auto) Douglas % (Auto) Eos % (Auto) Baso % (Auto) Lymph # (Auto) Douglas # (Auto) Eos # (Auto) Baso # (Auto) Abs Immat Gran (auto) Absolute Neuts (auto) Absolute Nucleated RBC Nucleated RBC % (auto) PT INR VBG pH VBG pCO2 VBG pO2 VBG HCO3 VBG O2 Saturation VBG Base Excess Anion Gap Estim Creat Clear Calc Estimated GFR Random Glucose Lactic Acid 0.7 Calcium Total Bilirubin Direct Bilirubin AST ALT Alkaline Phosphatase Troponin I High Sens 4.8 B-Natriuretic Peptide 16 Total Protein Albumin Influenza Type A (PCR) Influenza Type B (PCR) RSV RNA Qual (PCR) SARS-CoV-2 RNA (RT-PCR) 10/03/22 10/03/22 00:38 00:42 MCV MCH MCHC RDW Plt Count MPV Immature Gran % (Auto) Neut % (Auto) Lymph % (Auto) Douglas % (Auto) Eos % (Auto) Baso % (Auto) Lymph # (Auto) Douglas # (Auto) Eos # (Auto) Baso # (Auto) Abs Immat Gran (auto) Absolute Neuts (auto) Absolute Nucleated RBC Nucleated RBC % (auto) PT INR VBG pH 7.38 VBG pCO2 39 VBG pO2 71 VBG HCO3 23 VBG O2 Saturation 95.0 VBG Base Excess -1.0 Anion Gap Estim Creat Clear Calc Estimated GFR Random Glucose Lactic Acid Calcium Total Bilirubin Direct Bilirubin AST ALT Alkaline Phosphatase Troponin I High Sens B-Natriuretic Peptide Total Protein Albumin Influenza Type A (PCR) NEGATIVE Influenza Type B (PCR) NEGATIVE RSV RNA Qual (PCR) NEGATIVE SARS-CoV-2 RNA (RT-PCR) NEGATIVE Imaging Radiologist's Impressions: Impressions Chest X-Ray 10/03/22 01:05 IMPRESSION: Clear lungs Assessment and Plan (1) Acute exacerbation of chronic obstructive pulmonary disease (COPD): Status: Acute (2) Acute respiratory failure with hypoxia: Status: Acute Plan 71-year-old female with past medical history of COPD on baseline 2 L of oxygen presents to the hospital with complaints of shortness of breath found to have COPD exacerbation # acute hypoxic respiratory failure -secondary to COPD exacerbation, pneumonia, and PE less likely -patient will be started on DuoNeb, steroids, continue oxygen as required - titrate oxygen down to baseline 2 L as tolerated # acute COPD exacerbation - no evidence of pneumonia - negative for COVID, influenza - will treat with steroids, has allergies to Atrovent, will treat with nebulized albuterol p.r.n. as swell scheduled - monitor respiratory status # diabetes - will add low-dose sliding scale insulin, diabetic diet - continue home insulin - hold oral antihyperglycemics # hyperlipidemia - continue statin # mood disorder- continue mood stabilizers # GERD - continue PPI DVT prophylaxis: Lovenox Given patient's increased O2 requirement, as well as acute COPD exacerbation patient will require minimum to nits inpatient all [place] stay for further management and monitoring Time Spent With Patient Time: Total time managing care of this patient today ____ minutes. Quality Stroke Does the patient have a stroke diagnosis?: No VTE Prior VTE?: No VTE Risk Level:: Medical - moderate - high VTE Device Contraindication: Treatment Not Indicated VTE Drug Contraindication: N/A - Med Ordered
[2022-10-03 06:16] LABS: Anion Gap 15 (12-20); Blood Urea Nitrogen 11 mg/dL (9-16); Calcium 8.6 mg/dL (8.4-10.2); Carbon Dioxide 23 mmol/L (22-29); Chloride 105 mmol/L (96-108); Creatinine Clr Calc Pharmacy 52.8; Estimated Glomerular Filt Rate 57; Glucose Random 265 mg/dL (60-115); Potassium 4.2 mmol/L (3.3-5.1); Sodium 139 mmol/L (135-145)
[2022-10-03 06:19] LABS: SLIDE REVIEW VERIFIED
[2022-10-03] MEDS: Albuterol Sulfate (0.083%) 2.5 MG/3 ML VIAL.NEB INHALE ×3 (06:27→20:06)
--- NOTE | 2022-10-03 07:00 | PC.NURSE ---
Resumed care of this patient this AM, she is alert and oriented in bed attempting to call her home care nurse to not come in today. pt getting admitted to floor today. Vitals stable at this time, Pt remains on 4L NC sating at 92%. Pt verbalized her needs are met at this time.
[2022-10-03] MEDS: Enoxaparin Sodium 30 MG/0.3 ML SYRINGE SUBCUT (07:56)
[2022-10-03] MEDS: 0.9 % Sodium Chloride Flush 3 ML SYRINGE IVFLUSH ×3 (07:57→22:23)
--- NOTE | 2022-10-03 08:07 | MHC.EDTECH ---
Patient pressed her call [facility] for help from the commode to bed. Tech assisted, cleaned out commode and put in a clean liner. All set
[2022-10-03 08:12] LABS: Glucose, Whole Blood 275 mg/dL (60-115)
--- NOTE | 2022-10-03 10:11 | PHA.MEDREC ---
Pharmacy Consult ? Medication Reconciliation Pharmacy has completed the medication reconciliation. Spoke to patient to confirm meds. Patient states that they take Tresiba and Viktoza on a regular basis, but will use Novolog if their blood sugar is over 250 and is only as needed.
[2022-10-03] MEDS: Gabapentin 600 MG TABLET PO ×3 (11:37→22:22)
[2022-10-03] MEDS: Sennosides 8.6 MG TABLET 17.2 MG PO (11:37)
[2022-10-03] MEDS: Docusate Sodium 100 MG CAPSULE PO ×2 (11:37→22:23)
[2022-10-03] MEDS: Insulin Glargine,Hum.rec.anlog 100 UNIT/ML 10 ML VIAL 35 UNIT SUBCUT (11:38)
--- NOTE | 2022-10-03 11:55 | PC.NURSE ---
Report given to floor nurse at this time, pt to be transported up to floor
[2022-10-03 12:42] LABS: Glucose, Whole Blood 321 mg/dL (60-115)
[2022-10-03] MEDS: Insulin Lispro 100 UNIT/ML 3 ML VIAL SUBCUT ×2 (13:18→22:21)
[2022-10-03] MEDS: Insulin Glargine,Hum.rec.anlog 100 UNIT/ML 10 ML VIAL 10 UNIT SUBCUT (13:18)
[2022-10-03] MEDS: Cyanocobalamin (Vitamin B-12) 500 MCG TABLET PO (13:19)
[2022-10-03] MEDS: Empagliflozin 25 MG TABLET PO (13:19)
[2022-10-03 20:52] LABS: Glucose, Whole Blood 261 mg/dL (60-115)
[2022-10-03] MEDS: Melatonin 3 MG TABLET 9 MG PO (22:22)
[2022-10-03] MEDS: Cholecalciferol (Vitamin D3) 25 MCG TABLET 50 MCG PO (22:22)
[2022-10-03] MEDS: QUEtiapine Fumarate 25 MG TABLET 75 MG PO (22:22)
[2022-10-03] MEDS: Atorvastatin Calcium 40 MG TABLET PO (22:23)
[2022-10-04] VITALS (8 sets, daily range): BP systolic 102–111; BP diastolic 50–55; PULSE 52–82; RESP 15–22; TEMP 36.4–36.8; O2SAT 91–96
[2022-10-04] MEDS: methylPREDNISolone Sod Succ 40 MG/ML VIAL IVPUSH ×2 (01:21→14:27)
[2022-10-04] MEDS: QUEtiapine Fumarate 50 MG TABLET PO (01:25)
[2022-10-04] MEDS: Levothyroxine Sodium 25 MCG TABLET PO (05:40)
[2022-10-04] MEDS: Omeprazole 20 MG CAPSULE.DR PO (05:40)
[2022-10-04] MEDS: Albuterol Sulfate (0.083%) 2.5 MG/3 ML VIAL.NEB INHALE ×4 (07:37→19:12)
[2022-10-04 07:44] LABS: Glucose, Whole Blood 291 mg/dL (60-115)
[2022-10-04] MEDS: Insulin Lispro 100 UNIT/ML 3 ML VIAL SUBCUT ×4 (08:12→21:11)
[2022-10-04] MEDS: Enoxaparin Sodium 30 MG/0.3 ML SYRINGE SUBCUT (08:12)
[2022-10-04] MEDS: Insulin Glargine,Hum.rec.anlog 100 UNIT/ML 10 ML VIAL 45 UNIT SUBCUT (08:12)
[2022-10-04] MEDS: Cyanocobalamin (Vitamin B-12) 500 MCG TABLET PO (08:13)
[2022-10-04] MEDS: Sennosides 8.6 MG TABLET 17.2 MG PO (08:13)
[2022-10-04] MEDS: Gabapentin 600 MG TABLET PO ×3 (08:13→21:00)
[2022-10-04] MEDS: Fenofibrate 160 MG TABLET PO (08:13)
[2022-10-04] MEDS: Docusate Sodium 100 MG CAPSULE PO ×2 (08:13→21:00)
[2022-10-04] MEDS: Empagliflozin 25 MG TABLET PO (08:13)
[2022-10-04] MEDS: ARIPiprazole 20 MG TABLET PO (08:13)
[2022-10-04] MEDS: 0.9 % Sodium Chloride Flush 3 ML SYRINGE IVFLUSH ×3 (08:14→22:07)
[2022-10-04 11:49] LABS: Glucose, Whole Blood 242 mg/dL (60-115)
[2022-10-04] MEDS: clonazePAM 0.5 MG TABLET PO (12:18)
--- NOTE | 2022-10-04 12:19 | MHC.CM.PN ---
pt lives alone has a lock box that is manged daily thru excel she has homecare servceis thru [employer] she will need am,b transport home she is on 4th floor and on 02
--- NOTE | 2022-10-04 12:55 | HO.PM.IMPN ---
Subjective Subjective Date of Service: 10/04/22 Interval History: Seen and evaluated this morning feels better overall still wheezy and having dyspnea on exertion no reported overnight events Review of Systems Review of Systems: Yes all other systems are reviewed and are negative Physical Exam Vital Signs: Vital Signs: Last Vital Signs Temp 97.6 F 10/04/22 07:34 Pulse 68 10/04/22 11:52 Resp 15 10/04/22 11:52 BP 102/50 L 10/04/22 07:34 Pulse Ox 93 10/04/22 07:34 O2 Del Method Nasal Cannula 10/04/22 07:34 O2 Flow Rate 4.0 10/04/22 07:34 Oxygen Flow Rate 5 10/03/22 00:11 BMI result Body Mass Index 30.1 Const: Other: Constitutional : Awake, interactive, not in distress Neck : Normal inspection, Supple Cardiovascular : RRR, no JVP, no lower extremity edema Respiratory : fair bilateral air entry, no crackles, expiratory wheezes, on O2 supplement Gastrointestinal: soft, lax, Normal bowel sounds, Non tender Skin : Warm, Dry Neurological : Alert & oriented x3, No focal deficit Objective Data Active Medications Acetaminophen (Acetaminophen 325 Mg Tablet) 650 mg PO Q6H PRN PRN Reason: Pain, Mild (Pain Scale 1-3) Albuterol Sulfate (Albuterol Sulfate (0.083%) 2.5 Mg/3 Ml Vial.Neb) 2.5 mg INHALE Q4H PRN PRN Reason: Shortness of Breath/Wheezing Last Admin: 10/03/22 06:27 Dose: 2.5 mg Documented By: NOAH Albuterol Sulfate (Albuterol Sulfate (0.083%) 2.5 Mg/3 Ml Vial.Neb) 2.5 mg INHALE RQ4H WHILE AWAKE [facility] Last Admin: 10/04/22 11:51 Dose: 2.5 mg Documented By: OCTAVIO Aripiprazole (Aripiprazole 20 Mg Tablet) 20 mg PO DAILY [facility] Last Admin: 10/04/22 08:13 Dose: 20 mg Documented By: NICHELLE Atorvastatin Calcium (Atorvastatin Calcium 40 Mg Tablet) 40 mg PO BEDTIME [facility] Last Admin: 10/03/22 22:23 Dose: 40 mg Documented By: CHELE Clonazepam (Clonazepam 0.5 Mg Tablet) 0.5 mg PO BID PRN PRN Reason: Anxiety Last Admin: 10/04/22 12:18 Dose: 0.5 mg Documented By: NICHELLE Cyanocobalamin (Cyanocobalamin (Vitamin B-12) 500 Mcg Tablet) 500 mcg PO DAILY [facility] Last Admin: 10/04/22 08:13 Dose: 500 mcg Documented By: NICHELLE Docusate Sodium (Docusate Sodium 100 Mg Capsule) 100 mg PO DAILY PRN PRN Reason: Constipation Docusate Sodium (Docusate Sodium 100 Mg Capsule) 100 mg PO BID [facility] Last Admin: 10/04/22 08:13 Dose: 100 mg Documented By: NICHELLE Empagliflozin (Empagliflozin 25 Mg Tablet) 25 mg PO DAILY [facility] Last Admin: 10/04/22 08:13 Dose: 25 mg Documented By: NICHELLE Enoxaparin Sodium (Enoxaparin Sodium 30 Mg/0.3 Ml Syringe) 30 mg SUBCUT Q24H [facility] Last Admin: 10/04/22 08:12 Dose: 30 mg Documented By: NICHELLE Fenofibrate (Fenofibrate 160 Mg Tablet) 160 mg PO DAILY [facility] Last Admin: 10/04/22 08:13 Dose: 160 mg Documented By: NICHELLE Gabapentin (Gabapentin 600 Mg Tablet) 600 mg PO TID [facility] Last Admin: 10/04/22 08:13 Dose: 600 mg Documented By: NICHELLE Insulin Glargine (Insulin Glargine,Hum.Rec.Anlog 100 Unit/Ml 10 Ml Vial) 45 unit SUBCUT DAILY [facility] Last Admin: 10/04/22 08:12 Dose: 45 unit Documented By: NICHELLE Insulin Human Lispro (Insulin Lispro 100 Unit/Ml 3 Ml Vial) 0 unit SUBCUT QIDACHS [facility]; Protocol Last Admin: 10/04/22 12:18 Dose: 4 unit Documented By: NICHELLE Latanoprost (Latanoprost 0.005 % Ophth Sade 2.5 Ml Drops) 1 drop EYE-BOTH BEDTIME [facility] Last Admin: 10/03/22 23:21 Dose: Not Given Documented By: CHELE Non-Admin Reason: Med Not Available Levothyroxine Sodium (Levothyroxine Sodium 25 Mcg Tablet) 25 mcg PO DAILY@0600 [facility] Last Admin: 10/04/22 05:40 Dose: 25 mcg Documented By: CHELE Melatonin (Melatonin 3 Mg Tablet) 9 mg PO BEDTIME [facility] Last Admin: 10/03/22 22:22 Dose: 9 mg Documented By: CHELE Methylprednisolone Sodium Succinate (Methylprednisolone Sod Succ 40 Mg/Ml Vial) 40 mg IVPUSH Q12H [facility] Last Admin: 10/04/22 01:21 Dose: 40 mg Documented By: CHELE Non-Formulary Medication (Brimonidine [Alphagan P]) 1 drop EYE-BOTH BID [facility] Omeprazole (Omeprazole 20 Mg Capsule.Dr) 20 mg PO DAILY@0630 [facility] Last Admin: 10/04/22 05:40 Dose: 20 mg Documented By: CHELE Ondansetron HCl (Ondansetron Hcl 4 Mg/2 Ml Vial) 4 mg IVPUSH Q8H PRN PRN Reason: Nausea and Vomiting Pharmacy Consult (Consult Rx Perform Med Rec) 1 each MISCELLANE ONCE PRN PRN Reason: Consult order Pioglitazone HCl (Pioglitazone Hcl 15 Mg Tablet) 15 mg PO DAILY@1700 [facility] Quetiapine Fumarate (Quetiapine Fumarate 50 Mg Tablet) 50 mg PO BID PRN PRN Reason: Anxiety Last Admin: 10/04/22 01:25 Dose: 50 mg Documented By: CHELE Quetiapine Fumarate (Quetiapine Fumarate 25 Mg Tablet) 75 mg PO BEDTIME [facility] Last Admin: 10/03/22 22:22 Dose: 75 mg Documented By: CHELE Senna (Sennosides 8.6 Mg Tablet) 17.2 mg PO DAILY [facility] Last Admin: 10/04/22 08:13 Dose: 17.2 mg Documented By: NICHELLE Sodium Chloride (0.9 % Sodium Chloride Flush 3 Ml Syringe) 3 ml IVFLUSH QSHIFT [facility] Last Admin: 10/04/22 08:14 Dose: 3 ml Documented By: NICHELLE Vitamin D (Cholecalciferol (Vitamin D3) 25 Mcg Tablet) 50 mcg PO BEDTIME [facility] Last Admin: 10/03/22 22:22 Dose: 50 mcg Documented By: CHELE Labs 10/03/22 05:30 10/03/22 05:30 Labs: Laboratory Results - last 24 hr 10/03/22 10/04/22 10/04/22 20:48 07:33 11:38 POC Glucose 261 H 291 H 242 H Microbiology Microbiology Results: Microbiology 10/03/22 00:37 Blood Culture - Preliminary Blood - Venous No growth after 24 hours. 10/03/22 00:37 Blood Culture - Preliminary Blood - Venous No growth after 24 hours. Assessment and Plan (1) Acute exacerbation of chronic obstructive pulmonary disease (COPD): Status: Acute (2) Acute respiratory failure with hypoxia: Status: Acute Plan 71-year-old female with past medical history of COPD on baseline 2 L of oxygen presents to the hospital with complaints of shortness of breath found to have COPD exacerbation # acute on chronic hypoxic respiratory failure secondary to COPD exacerbation, pneumonia DuoNeb, steroids, continue oxygen as required titrate oxygen down to baseline 2 L as tolerated negative for COVID, influenza nebulized albuterol p.r.n. as swell scheduled monitor respiratory status # diabetes low-dose sliding scale insulin, diabetic diet home insulin hold oral antihyperglycemics # hyperlipidemia continue statin # mood disorder continue mood stabilizers # GERD continue PPI DVT prophylaxis: Lovenox Given patient's increased O2 requirement, as well as acute COPD exacerbation patient will require overnight inpatient stay for further management and monitoring Time Spent With Patient Time: Total time managing care of this patient today ____ minutes. Quality Stroke Does the patient have a stroke diagnosis?: No VTE Prior VTE?: No VTE Risk Level:: Medical - moderate - high VTE Device Contraindication: Treatment Not Indicated VTE Drug Contraindication: N/A - Med Ordered
[2022-10-04 16:58] LABS: Glucose, Whole Blood 178 mg/dL (60-115)
[2022-10-04] MEDS: Melatonin 3 MG TABLET 9 MG PO (20:59)
[2022-10-04] MEDS: Cholecalciferol (Vitamin D3) 25 MCG TABLET 50 MCG PO (20:59)
[2022-10-04] MEDS: QUEtiapine Fumarate 25 MG TABLET 75 MG PO (20:59)
[2022-10-04] MEDS: Atorvastatin Calcium 40 MG TABLET PO (21:00)
[2022-10-04 21:08] LABS: Glucose, Whole Blood 242 mg/dL (60-115)
[2022-10-04] MEDS: Latanoprost 0.005 % Ophth Sol 2.5 ML DROPS 1 DROP EYE-BOTH (22:06)
[2022-10-05] VITALS (7 sets, daily range): BP systolic 107–128; BP diastolic 53–60; PULSE 49–59; RESP 16–19; TEMP 35.8–36.6; O2SAT 93–95
[2022-10-05] MEDS: methylPREDNISolone Sod Succ 40 MG/ML VIAL IVPUSH ×2 (01:06→14:50)
[2022-10-05] MEDS: Omeprazole 20 MG CAPSULE.DR PO (05:23)
[2022-10-05] MEDS: Levothyroxine Sodium 25 MCG TABLET PO (05:23)
[2022-10-05 07:18] LABS: Glucose, Whole Blood 203 mg/dL (60-115)
[2022-10-05] MEDS: Insulin Lispro 100 UNIT/ML 3 ML VIAL SUBCUT ×3 (07:49→21:34)
[2022-10-05] MEDS: Enoxaparin Sodium 30 MG/0.3 ML SYRINGE SUBCUT (07:51)
[2022-10-05] MEDS: 0.9 % Sodium Chloride Flush 3 ML SYRINGE IVFLUSH ×3 (07:54→19:34)
[2022-10-05] MEDS: Gabapentin 600 MG TABLET PO ×3 (09:55→19:31)
[2022-10-05] MEDS: Sennosides 8.6 MG TABLET 17.2 MG PO (09:55)
[2022-10-05] MEDS: Empagliflozin 25 MG TABLET PO (09:55)
[2022-10-05] MEDS: ARIPiprazole 20 MG TABLET PO (09:55)
[2022-10-05] MEDS: Insulin Glargine,Hum.rec.anlog 100 UNIT/ML 10 ML VIAL 45 UNIT SUBCUT (09:55)
[2022-10-05] MEDS: Docusate Sodium 100 MG CAPSULE PO ×2 (09:55→19:32)
[2022-10-05] MEDS: Cyanocobalamin (Vitamin B-12) 500 MCG TABLET PO (09:55)
[2022-10-05] MEDS: Fenofibrate 160 MG TABLET PO (10:15)
--- NOTE | 2022-10-05 10:33 | HO.PM.IMPN ---
Subjective Subjective Date of Service: 10/05/22 Interval History: Seen and evaluated this morning feels better overall Still on 4 L of O2 still wheezy and having dyspnea on exertion no reported overnight events Review of Systems Review of Systems: Yes all other systems are reviewed and are negative Physical Exam Vital Signs: Vital Signs: Last Vital Signs Temp 97.6 F 10/05/22 08:00 Pulse 55 10/05/22 08:00 Resp 19 10/05/22 08:00 BP 128/60 10/05/22 08:00 Pulse Ox 94 10/05/22 08:00 O2 Del Method Nasal Cannula 10/05/22 08:00 O2 Flow Rate 4 10/05/22 08:00 Oxygen Flow Rate 5 10/03/22 00:11 BMI result Body Mass Index 30.1 Const: Other: Constitutional : Awake, interactive, not in distress Neck : Normal inspection, Supple Cardiovascular : RRR, no JVP, no lower extremity edema Respiratory : fair bilateral air entry, no crackles, expiratory wheezes, on O2 supplement Gastrointestinal: soft, lax, Normal bowel sounds, Non tender Skin : Warm, Dry Neurological : Alert & oriented x3, No focal deficit Objective Data Active Medications Acetaminophen (Acetaminophen 325 Mg Tablet) 650 mg PO Q6H PRN PRN Reason: Pain, Mild (Pain Scale 1-3) Albuterol Sulfate (Albuterol Sulfate (0.083%) 2.5 Mg/3 Ml Vial.Neb) 2.5 mg INHALE Q4H PRN PRN Reason: Shortness of Breath/Wheezing Last Admin: 10/03/22 06:27 Dose: 2.5 mg Documented By: NOAH Albuterol Sulfate (Albuterol Sulfate (0.083%) 2.5 Mg/3 Ml Vial.Neb) 2.5 mg INHALE RQ4H WHILE AWAKE [facility] Last Admin: 10/05/22 08:04 Dose: Not Given Documented By: BREANNA Non-Admin Reason: Patient Refused Aripiprazole (Aripiprazole 20 Mg Tablet) 20 mg PO DAILY [facility] Last Admin: 10/05/22 09:55 Dose: 20 mg Documented By: ROCIO Atorvastatin Calcium (Atorvastatin Calcium 40 Mg Tablet) 40 mg PO BEDTIME [facility] Last Admin: 10/04/22 21:00 Dose: 40 mg Documented By: DAILY Clonazepam (Clonazepam 0.5 Mg Tablet) 0.5 mg PO BID PRN PRN Reason: Anxiety Last Admin: 10/04/22 12:18 Dose: 0.5 mg Documented By: NICHELLE Cyanocobalamin (Cyanocobalamin (Vitamin B-12) 500 Mcg Tablet) 500 mcg PO DAILY [facility] Last Admin: 10/05/22 09:55 Dose: 500 mcg Documented By: ROCIO Docusate Sodium (Docusate Sodium 100 Mg Capsule) 100 mg PO DAILY PRN PRN Reason: Constipation Docusate Sodium (Docusate Sodium 100 Mg Capsule) 100 mg PO BID [facility] Last Admin: 10/05/22 09:55 Dose: 100 mg Documented By: ROCIO Empagliflozin (Empagliflozin 25 Mg Tablet) 25 mg PO DAILY [facility] Last Admin: 10/05/22 09:55 Dose: 25 mg Documented By: ROCIO Enoxaparin Sodium (Enoxaparin Sodium 30 Mg/0.3 Ml Syringe) 30 mg SUBCUT Q24H [facility] Last Admin: 10/05/22 07:51 Dose: 30 mg Documented By: ROCIO Fenofibrate (Fenofibrate 160 Mg Tablet) 160 mg PO DAILY [facility] Last Admin: 10/05/22 10:15 Dose: 160 mg Documented By: ROCIO Gabapentin (Gabapentin 600 Mg Tablet) 600 mg PO TID [facility] Last Admin: 10/05/22 09:55 Dose: 600 mg Documented By: ROCIO Insulin Glargine (Insulin Glargine,Hum.Rec.Anlog 100 Unit/Ml 10 Ml Vial) 45 unit SUBCUT DAILY [facility] Last Admin: 10/05/22 09:55 Dose: 45 unit Documented By: ROCIO Insulin Human Lispro (Insulin Lispro 100 Unit/Ml 3 Ml Vial) 0 unit SUBCUT QIDACHS [facility]; Protocol Last Admin: 10/05/22 07:49 Dose: 4 unit Documented By: ROCIO Latanoprost (Latanoprost 0.005 % Ophth Sade 2.5 Ml Drops) 1 drop EYE-BOTH BEDTIME [facility] Last Admin: 10/04/22 22:06 Dose: 1 drop Documented By: DAILY Levothyroxine Sodium (Levothyroxine Sodium 25 Mcg Tablet) 25 mcg PO DAILY@0600 [facility] Last Admin: 10/05/22 05:23 Dose: 25 mcg Documented By: DAILY Melatonin (Melatonin 3 Mg Tablet) 9 mg PO BEDTIME [facility] Last Admin: 10/04/22 20:59 Dose: 9 mg Documented By: DAILY Methylprednisolone Sodium Succinate (Methylprednisolone Sod Succ 40 Mg/Ml Vial) 40 mg IVPUSH Q12H [facility] Last Admin: 10/05/22 01:06 Dose: 40 mg Documented By: CHELE Non-Formulary Medication (Brimonidine [Alphagan P]) 1 drop EYE-BOTH BID [facility] Omeprazole (Omeprazole 20 Mg Capsule.Dr) 20 mg PO DAILY@0630 [facility] Last Admin: 10/05/22 05:23 Dose: 20 mg Documented By: DAILY Ondansetron HCl (Ondansetron Hcl 4 Mg/2 Ml Vial) 4 mg IVPUSH Q8H PRN PRN Reason: Nausea and Vomiting Pharmacy Consult (Consult Rx Perform Med Rec) 1 each MISCELLANE ONCE PRN PRN Reason: Consult order Pioglitazone HCl (Pioglitazone Hcl 15 Mg Tablet) 15 mg PO DAILY@1700 [facility] Last Admin: 10/04/22 17:12 Dose: 15 mg Documented By: HALLIE Quetiapine Fumarate (Quetiapine Fumarate 50 Mg Tablet) 50 mg PO BID PRN PRN Reason: Anxiety Last Admin: 10/04/22 01:25 Dose: 50 mg Documented By: CHELE Quetiapine Fumarate (Quetiapine Fumarate 25 Mg Tablet) 75 mg PO BEDTIME [facility] Last Admin: 10/04/22 20:59 Dose: 75 mg Documented By: DAILY Senna (Sennosides 8.6 Mg Tablet) 17.2 mg PO DAILY [facility] Last Admin: 10/05/22 09:55 Dose: 17.2 mg Documented By: ROCIO Sodium Chloride (0.9 % Sodium Chloride Flush 3 Ml Syringe) 3 ml IVFLUSH QSHIFT [facility] Last Admin: 10/05/22 07:54 Dose: 3 ml Documented By: ROCIO Vitamin D (Cholecalciferol (Vitamin D3) 25 Mcg Tablet) 50 mcg PO BEDTIME [facility] Last Admin: 10/04/22 20:59 Dose: 50 mcg Documented By: DAILY Labs 10/03/22 05:30 10/03/22 05:30 Labs: Laboratory Results - last 24 hr 10/04/22 10/04/22 10/04/22 11:38 16:35 21:02 POC Glucose 242 H 178 H 242 H 10/05/22 07:14 POC Glucose 203 H Microbiology Microbiology Results: Microbiology 10/03/22 00:37 Blood Culture - Preliminary Blood - Venous No growth after 48 hours. 10/03/22 00:37 Blood Culture - Preliminary Blood - Venous No growth after 48 hours. Assessment and Plan (1) Acute respiratory failure with hypoxia: Status: Acute (2) Acute exacerbation of chronic obstructive pulmonary disease (COPD): Status: Acute Plan 71-year-old female with past medical history of COPD on baseline 2 L of oxygen presents to the hospital with complaints of shortness of breath found to have COPD exacerbation # acute on chronic hypoxic respiratory failure secondary to COPD exacerbation, pneumonia DuoNeb, steroids, continue oxygen as required titrate oxygen down to baseline 2 L as tolerated negative for COVID, influenza nebulized albuterol p.r.n. as swell scheduled monitor respiratory status # diabetes low-dose sliding scale insulin, diabetic diet home insulin hold oral antihyperglycemics # hyperlipidemia continue statin # mood disorder continue mood stabilizers # GERD continue PPI DVT prophylaxis: Lovenox Given patient's increased O2 requirement, as well as acute COPD exacerbation patient will require overnight inpatient stay for further management and monitoring Time Spent With Patient Time: Total time managing care of this patient today ____ minutes. Quality Stroke Does the patient have a stroke diagnosis?: No VTE Prior VTE?: No VTE Risk Level:: Medical - moderate - high VTE Device Contraindication: Treatment Not Indicated VTE Drug Contraindication: N/A - Med Ordered
[2022-10-05] MEDS: Albuterol Sulfate (0.083%) 2.5 MG/3 ML VIAL.NEB INHALE ×3 (11:22→19:54)
[2022-10-05 11:46] LABS: Glucose, Whole Blood 131 mg/dL (60-115)
[2022-10-05 16:22] LABS: Glucose, Whole Blood 154 mg/dL (60-115)
[2022-10-05] MEDS: clonazePAM 0.5 MG TABLET PO (19:31)
[2022-10-05] MEDS: QUEtiapine Fumarate 50 MG TABLET PO (19:32)
[2022-10-05] MEDS: Atorvastatin Calcium 40 MG TABLET PO (19:32)
[2022-10-05] MEDS: Latanoprost 0.005 % Ophth Sol 2.5 ML DROPS 1 DROP EYE-BOTH (19:34)
[2022-10-05 20:46] LABS: Glucose, Whole Blood 251 mg/dL (60-115)
[2022-10-05] MEDS: QUEtiapine Fumarate 25 MG TABLET 75 MG PO (21:35)
[2022-10-05] MEDS: Melatonin 3 MG TABLET 9 MG PO (21:35)
[2022-10-05] MEDS: Cholecalciferol (Vitamin D3) 25 MCG TABLET 50 MCG PO (21:35)
[2022-10-06] MEDS: methylPREDNISolone Sod Succ 40 MG/ML VIAL IVPUSH (00:49)
[2022-10-06 04:00] VITALS: BP 125/59; PULSE 56; RESP 16; TEMP 35.8; O2SAT 93
[2022-10-06] MEDS: Levothyroxine Sodium 25 MCG TABLET PO (05:38)
[2022-10-06] MEDS: Omeprazole 20 MG CAPSULE.DR PO (05:38)
[2022-10-06 07:30] VITALS: BP 130/62; PULSE 53; RESP 18; TEMP 36.8; O2SAT 94
[2022-10-06 07:32] LABS: Glucose, Whole Blood 257 mg/dL (60-115)
[2022-10-06] MEDS: Insulin Lispro 100 UNIT/ML 3 ML VIAL SUBCUT (08:03)
[2022-10-06] MEDS: Enoxaparin Sodium 30 MG/0.3 ML SYRINGE SUBCUT (08:03)
[2022-10-06] MEDS: Insulin Glargine,Hum.rec.anlog 100 UNIT/ML 10 ML VIAL 45 UNIT SUBCUT (08:04)
[2022-10-06] MEDS: Sennosides 8.6 MG TABLET 17.2 MG PO (08:05)
[2022-10-06] MEDS: Cyanocobalamin (Vitamin B-12) 500 MCG TABLET PO (08:05)
[2022-10-06] MEDS: Empagliflozin 25 MG TABLET PO (08:05)
[2022-10-06] MEDS: ARIPiprazole 20 MG TABLET PO (08:05)
[2022-10-06] MEDS: Docusate Sodium 100 MG CAPSULE PO (08:05)
[2022-10-06] MEDS: Fenofibrate 160 MG TABLET PO (08:05)
[2022-10-06] MEDS: Gabapentin 600 MG TABLET PO (08:05)
[2022-10-06] MEDS: clonazePAM 0.5 MG TABLET PO (08:10)
[2022-10-06] MEDS: 0.9 % Sodium Chloride Flush 3 ML SYRINGE IVFLUSH (10:06)
[2022-10-06 11:01] VITALS: O2SAT 92
[2022-10-06 11:03] LABS: Glucose, Whole Blood 115 mg/dL (60-115)
--- NOTE | 2022-10-06 12:35 | PM.DS ---
DS: Providers Provider Date of Service: 10/06/22 Date of admission: 10/03/22 01:25 Primary care physician: Jolanta Concepcion MD DS: Diagnosis Discharge Diagnosis (1) Acute respiratory failure with hypoxia: Status: Acute (2) Acute exacerbation of chronic obstructive pulmonary disease (COPD): Status: Acute DS: Summary Hospital Course Hospital Course: from initial hpi: Chief Complaint: Shortness of breath 71-year-old female with past medical history of COPD on baseline 2 L of oxygen, diabetes, ADDIS noncompliant with CPAP, nocturnal hypoxia, GERD, HLD, presents to the hospital with complaints of cough, shortness of breath and sputum production.? Patient is also complaining of chills, feeling feverish, no chest pain, no abdominal pain, no nausea or vomiting, no diarrhea constipation, no urinary symptoms.? And no lower extremity edema.? On arrival to the ED patient hemodynamically stable with a heart rate of 103, satting 90-92% on 5 L of oxygen Labs are significant for thirty BC count of 12.9, pH of 7.38 with a pCO2 of 39, labs otherwise unremarkable, COVID-19 influenza and RSV negative Chest x-ray negative hospital course: Patient was admitted for acute on chronic hypoxic respiratory failure secondary to COPD with acute decompensation. Was treated with steroids and bronchodilators with significant improvement. Patient will be discharged on 5 more days of prednisone. For diabetes she was given insulin. For hyperlipidemia she was continued on statin. For mood disorder she was continued on mood stabilizers. For peptic ulcer disease she was continued on PPI. For obesity weight loss is recommended. Patient is feeling better will be discharged home. Time Spent with Patient Time attestation: Total time managing care of this patient today ____ minutes. Discharge coordination time: Greater than 30 minutes Quality: Safe Use of Opioids Does Pt have an Active Cancer Diagnosis on the Problem List?: No Quality: Stroke Does the patient have a stroke diagnosis?: No Physical Exam Vital Signs: Vital Signs: Last Vital Signs Temp 98.2 F 10/06/22 07:30 Pulse 53 10/06/22 07:30 Resp 18 10/06/22 07:30 BP 130/62 10/06/22 07:30 Pulse Ox 92 10/06/22 11:01 O2 Del Method Nasal Cannula 10/06/22 07:30 O2 Flow Rate 2 10/06/22 07:30 Oxygen Flow Rate 5 10/03/22 00:11 BMI result Body Mass Index 30.1 General: AO X 3, no acute distress Resp: CTA bilateral, no accessory muscles used CVS: S1,S2,RRR GI: soft, non tender, non distended Neuro: motor grossly intact, alert Psych: appropriate affect, appropriate insight DS: Data Data Completed and Pending Labs on day of discharge: Laboratory Results - last 24 hr 10/05/22 10/05/22 10/06/22 16:17 20:40 07:28 POC Glucose 154 H 251 H 257 H 10/06/22 10:59 POC Glucose 115 Preliminary micro results at discharge 10/03/22 00:37 Blood Culture - Preliminary Blood - Venous No growth after 48 hours. 10/03/22 00:37 Blood Culture - Preliminary Blood - Venous No growth after 48 hours. Discharge Plan Discharge Anticipated Discharge Date/Time: 10/06/22 12:32 Patient Disposition: Home, Self-Care Discharge Diagnosis: copd Referrals: Jolanta Concepcion MD [Primary Care Provider] - 11/01/22 1:30 pm (You have a follow up appointment scheduled. If you have to reschedule please call the office.) Discharge Medications: New prednisone 20 mg tablet 40 mg PO DAILY Qty: 10 0RF Continued Victoza 3-Jeanmarie 0.6 mg/0.1 mL (18 mg/3 mL) pen injector 1.8 mg subcut DAILY 90 Days Qty: 27 11RF docusate sodium 100 mg capsule 100 mg PO BID Qty: 180 0RF levocetirizine 5 mg tablet 5 mg PO BEDTIME Qty: 90 0RF quetiapine 25 mg tablet 50 mg PO BID PRN (Reason: Anxiety) atorvastatin 40 mg tablet 1 tab PO BEDTIME esomeprazole magnesium 40 mg capsule,delayed release(DR/EC) 1 cap PO DAILY@0630 fenofibrate 160 mg tablet 1 tab PO DAILY quetiapine 50 mg tablet 75 mg PO BEDTIME cholecalciferol (vitamin D3) 50 mcg (2,000 unit) tablet 1 tab PO BEDTIME clonazepam 0.5 mg tablet 1 tab PO BID PRN (Reason: Anxiety) cyanocobalamin (vitamin B-12) [Vitamin B-12] 500 mcg tablet 1 tab PO DAILY sennosides [senna] 8.6 mg tablet 2 tab PO BEDTIME gabapentin 600 mg tablet 1 tab PO TID melatonin 3 mg tablet 9 mg PO BEDTIME levothyroxine 25 mcg tablet 1 tab PO DAILY@0600 Jardiance 25 mg tablet 1 tab PO DAILY aripiprazole 20 mg tablet 20 mg PO DAILY insulin aspart U-100 [Novolog FlexPen U-100 Insulin] 100 unit/mL (3 mL) insulin pen 1 sliding scale dose subcut TID PRN (Reason: Hyperglycemia) Rx Instructions: IF BLOOD GLUCOSE >250 pioglitazone 15 mg tablet 15 mg PO BEDTIME acetaminophen [Tylenol] 325 mg Tablet 650 mg PO Q6H PRN (Reason: Pain) Alphagan P 0.1 % drops 1 drp ophthalmic (eye) BID Rx Instructions: Instill 1 drop in both eyes insulin degludec [Tresiba FlexTouch U-100] 100 unit/mL (3 mL) insulin pen 42 unit subcut DAILY latanoprost 0.005 % drops 1 drp ophthalmic (eye) BEDTIME albuterol sulfate 90 mcg/actuation HFA aerosol inhaler 2 puff inhalation Q4H PRN (Reason: Shortness Of Breath) 60 Days Qty: 8.5 2RF Discharge Orders: Discharge Order (Routine); Ordered 10/06/22 Ordered By: Luis Multani Diet: Advance to usual diet Activity on Discharge: As tolerated Stand Alone Forms: Patient Portal Discharge page Care Plan Goals: recovery Health Concerns: copd Plan of Treatment: prednisone Assessment: see above
[2022-10-06 12:44] VITALS: PULSE 89; PULSE 90; O2SAT 89; O2SAT 93
[2022-10-06 12:51] VITALS: PULSE 73; RESP 18; O2SAT 93
[2022-10-06] MEDS: Albuterol Sulfate (0.083%) 2.5 MG/3 ML VIAL.NEB INHALE (12:51)
--- NOTE | 2022-10-06 13:11 | MHC.CM.PN ---
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
== END 2022-10-06 14:30 | disposition home health service (06) | DRG 190 ==
LOC: HO.ED 01:16 → HO.EDOVER 01:38 → HO.S3 10:32
PROVIDERS: Student in an Organized Health Care Education/Training Program; Admitting Provider Internal Medicine; Emergency Provider Emergency Medicine; PCP Internal Medicine; Visit Provider Internal Medicine
DX: J44.1 Chronic obstructive pulmonary disease with (acute) exacerbation (principal); J96.21 Acute and chronic respiratory failure with hypoxia; F33.2 Major depressive disorder, recurrent severe without psychotic features; E78.5 Hyperlipidemia, unspecified; E66.9 Obesity, unspecified; G47.33 Obstructive sleep apnea (adult) (pediatric); E11.9 Type 2 diabetes mellitus without complications; K21.9 Gastro-esophageal reflux disease without esophagitis; Z20.822 Contact with and (suspected) exposure to COVID-19; Z77.22 Contact with and (suspected) exposure to environmental tobacco smoke (acute) (chronic); Z99.81 Dependence on supplemental oxygen; Z68.30 Body mass index [BMI] 30.0-30.9, adult; Z91.199 Patient's noncompliance with other medical treatment and regimen due to unspecified reason; Z98.1 Arthrodesis status; Z88.1 Allergy status to other antibiotic agents; Z88.6 Allergy status to analgesic agent; Z88.8 Allergy status to other drugs, medicaments and biological substances; Z79.4 Long term (current) use of insulin; Z79.890 Hormone replacement therapy; Z79.899 Other long term (current) drug therapy
CPT/HCPCS: 0241U; 36415; 71045; 80048; 80076; 82803; 82947; 83605; 83880; 84484; 85025; 85610; 87040; 93005; 94640; 97116; 97161; 99285; J1650; J1956; J2920; J2930; J3475

== ENCOUNTER → 2022-10-12 10:39 | Outpatient (BNVA) | payer OTHER, SELFPAY | PROVIDERS: PCP Internal Medicine; Visit Provider Obstetrics & Gynecology | DX: L30.8 Other specified dermatitis (principal); E11.65 Type 2 diabetes mellitus with hyperglycemia; E04.2 Nontoxic multinodular goiter; E78.00 Pure hypercholesterolemia, unspecified | CPT/HCPCS: 99212 ==

== ENCOUNTER → 2022-10-19 12:32 | Outpatient (BNVA) | payer OTHER, SELFPAY | PROVIDERS: PCP Internal Medicine; Referring Provider Internal Medicine; Visit Provider Internal Medicine Cardiovascular Disease | DX: R07.9 Chest pain, unspecified (principal); R00.2 Palpitations; F17.210 Nicotine dependence, cigarettes, uncomplicated; Z98.890 Other specified postprocedural states | CPT/HCPCS: Q3014 ==

== ENCOUNTER → 2022-10-21 08:49 | Outpatient (BNVA) | payer OTHER, SELFPAY | PROVIDERS: PCP Internal Medicine; Visit Provider Internal Medicine | DX: J44.1 Chronic obstructive pulmonary disease with (acute) exacerbation (principal); J96.01 Acute respiratory failure with hypoxia; R91.1 Solitary pulmonary nodule; E11.65 Type 2 diabetes mellitus with hyperglycemia; E04.2 Nontoxic multinodular goiter; F17.210 Nicotine dependence, cigarettes, uncomplicated; Z99.81 Dependence on supplemental oxygen; Z79.4 Long term (current) use of insulin | CPT/HCPCS: 94618; 99212 ==

== ENCOUNTER 2022-10-26 06:57 | Outpatient (REF) | payer OTHER, SELFPAY ==
[2022-10-26 11:14] LABS: MANUAL DIFF FLAG NO
[2022-10-26 11:36] LABS: Basophils Percent Auto 0.4 % (0-2); Eosinophils Absolute Auto 0.1 X10*3/uL (0.0-0.4); Eosinophils Percent Auto 1.1 % (0-4); Hematocrit 42.8 % (37.0-47.0); Hemoglobin 13.8 g/dl (12.0-16.0); Imm Gran Abs Auto 0.01 X10*3/uL (0.00-0.03); Imm Gran Pct Auto 0.2 % (0.0-0.4); Lymphocytes Absolute Auto 1.6 X10*3/uL (1.2-4.9); Lymphocytes Percent Auto 28.3 % (20-40); Mean Corpuscular HGB Conc 32.2 g/dl (31.0-35.0); Mean Corpuscular Hemoglobin 29.5 pg (27.0-33.0); Mean Corpuscular Volume 91.5 fL (80.0-98.0); Mean Platelet Volume 11.3 fL (9.4-12.3); Monocytes Absolute Auto 0.3 X10*3/uL (0.1-1.2); Monocytes Percent Auto 5.3 % (2-11); Neutrophils Absolute Auto 3.6 x10*3/uL (2.0-8.3); Neutrophils Percent Auto 64.7 % (45-73); Platelet Count 229 X10*3/uL (160-400); Red Blood Count 4.68 X10*6/uL (4.20-5.50); White Blood Count 5.6 X10*3/uL (4.8-10.8)
[2022-10-26 11:38] LABS: Appearance Urine Clear; Color Urine Yellow; Glucose Urine UA >=1000 mg/dL (Negative); Leukocyte Esterase Urine Negative (Negative); Nitrite Urine Negative (Negative); Specific Gravity - Urine 1.025 (1.005-1.025); UMIC TRIGGER UACC YES; Urine Blood Negative (Negative); Urine Ketones Negative (Negative); Urine Protein Negative (Neg-Trace)
[2022-10-26 11:39] LABS: Estimated Average Glucose 177 mg/dL; Hemoglobin A1c % 7.8 %
[2022-10-26 11:49] LABS: Bacteria Urine None Seen (None Seen); Hyaline Casts Urine 0-2 /LPF (0-2); RBC Urine 0-2 /HPF (0-2); Squamous Epithelial Cell Urine 0-2 /HPF (0-2); WBC Urine 0-5 /HPF (0-5)
[2022-10-26 12:02] LABS: Alanine Aminotransferase 17 U/L (0-31); Albumin Level 4.1 g/dL (3.5-5.0); Alkaline Phosphatase 48 U/L (39-117); Anion Gap 11 (12-20); Aspartate Amino Transferase 17 U/L (5-31); Bilirubin Total 0.4 mg/dL (0.0-1.0); Blood Urea Nitrogen 12 mg/dL (9-16); Carbon Dioxide 28 mmol/L (22-29); Chloride 107 mmol/L (96-108); Cholesterol 167 mg/dL; Estimated Glomerular Filt Rate > 60; Glucose Random 148 mg/dL (60-115); HDL Cholesterol 55 mg/dL; LDL Cholesterol Calculated 78 mg/dl; Potassium 4.4 mmol/L (3.3-5.1); Sodium 142 mmol/L (135-145); Total Protein 6.2 g/dL (6.5-8.0); Triglycerides 170 mg/dL
[2022-10-26 12:08] LABS: Creatinine Urine 49.84 mg/dL
[2022-10-26 12:20] LABS: Vitamin D 25-OH Total 31.2 ng/mL (>30)
[2022-10-26 12:33] LABS: Folate 7.2 ng/mL (> or = 4.0); Free T4 (Free Thyroxine) 0.99 ng/dL (0.71-1.85); Thyroid Stimulating Hormone 2.33 uIU/mL (0.32-4.0); Vitamin B12 508 pg/mL (200-900)
== END 2022-10-26 06:58 | disposition home or self-care (01) ==
LOC: HO.HMGCLDS 06:57
PROVIDERS: Absent Provider Internal Medicine; PCP Internal Medicine; Visit Provider Internal Medicine
DX: E11.65 Type 2 diabetes mellitus with hyperglycemia (principal); E04.2 Nontoxic multinodular goiter; E78.00 Pure hypercholesterolemia, unspecified; E55.9 Vitamin D deficiency, unspecified; M85.80 Other specified disorders of bone density and structure, unspecified site
CPT/HCPCS: 36415; 80053; 80061; 81001; 82043; 82306; 82607; 82746; 83036; 84439; 84443; 85025

== ENCOUNTER → 2022-11-03 09:18 | Outpatient (BNVA) | payer OTHER, SELFPAY | PROVIDERS: PCP Internal Medicine; Visit Provider Internal Medicine | DX: E11.65 Type 2 diabetes mellitus with hyperglycemia (principal); E78.5 Hyperlipidemia, unspecified; E04.2 Nontoxic multinodular goiter; E55.9 Vitamin D deficiency, unspecified; I10 Essential (primary) hypertension | CPT/HCPCS: 99212 ==

== ENCOUNTER 2022-11-19 09:34 | Outpatient (REF) | payer OTHER, SELFPAY ==
--- NOTE | ~2022-11-19 | CT_ITS ---
EXAMINATION: CT CHEST SCREENING CLINICAL INFORMATION: Current smoker. 40 pack year history. COMPARISON: Previous chest CT most recent October 2021 and chest x-ray September 2022 TECHNIQUE: Multidetector volumetric CT imaging of the chest is performed without contrast using low dose technique. Additional 2D coronal and sagittal reformatted images and axial 3D maximum intensity projection (MIP) images are generated on the CT workstation. This CT examination was performed using dose optimization techniques as appropriate, variously including the following: *Automated exposure control *Adjustment of mA and/or kV according to patient size (this includes techniques or standardized protocols for targeted exams where dose is matched to indication/reason for exam; i.e. extremities or head) *Use of iterative reconstruction technique DLP: 58 mGy-cm FINDINGS: LUNGS: Emphysema. Left apical pleural and parenchymal scarring. New ground glass attenuation peripheral or subpleural areas in the left lower lobe measuring 1.3 x 2.7 cm axial image 282 series 5 and 1 x 0.8 cm axial image 287 series 5. Question new 3 mm semisolid left lower lobe peripheral or subpleural more inferior nodule axial image 306 series 5. Chronic scarring or subsegmental atelectasis at the lung bases. MEDIASTINUM: Normal heart size. Small pericardial effusion or thickening similar to previous exam. Small mediastinal lymph nodes. No enlarged lymph nodes. Normal caliber thoracic aorta. CORONARY ARTERY CALCIFICATION: Mild PLEURA: There is no pleural effusion. No pleural mass or thickening. AXILLA: No lymphadenopathy. UPPER ABDOMEN: Gallbladder has been removed. OSSEOUS STRUCTURES: Healing right lateral rib fractures. Degenerative changes of the spine. CT/CT lung screening IMPRESSION: New groundglass attenuation left lower lobe nodules, largest measuring 1.3 x 2.7 cm. emphysema. ASSESSMENT: Lung-RADS category 4A: Suspicious RECOMMENDATION: Low-dose chest CT follow-up in 3 months recommended.
== END 2022-11-19 09:35 | disposition home or self-care (01) ==
LOC: HO.CT 09:34
PROVIDERS: PCP Internal Medicine; Visit Provider Physician Assistant Medical
DX: Z12.2 Encounter for screening for malignant neoplasm of respiratory organs (principal); F17.210 Nicotine dependence, cigarettes, uncomplicated
CPT/HCPCS: 71271

== ENCOUNTER → 2022-11-23 09:39 | Outpatient (BNVA) | payer OTHER, SELFPAY | PROVIDERS: PCP Internal Medicine; Visit Provider Internal Medicine | DX: J44.9 Chronic obstructive pulmonary disease, unspecified (principal); R91.1 Solitary pulmonary nodule; G47.34 Idiopathic sleep related nonobstructive alveolar hypoventilation; Z72.0 Tobacco use | CPT/HCPCS: 99212 ==

== ENCOUNTER → 2022-11-30 09:13 | Outpatient (BNVA) | payer OTHER, SELFPAY | PROVIDERS: PCP Internal Medicine; Visit Provider Nurse Practitioner Family | DX: J44.9 Chronic obstructive pulmonary disease, unspecified (principal); F17.210 Nicotine dependence, cigarettes, uncomplicated | CPT/HCPCS: 94618; 99212 ==

== ENCOUNTER → 2022-12-03 13:00 | Outpatient (BNVA) | payer OTHER, SELFPAY | PROVIDERS: PCP Internal Medicine; Visit Provider Surgery | DX: R91.1 Solitary pulmonary nodule (principal); F17.210 Nicotine dependence, cigarettes, uncomplicated | CPT/HCPCS: 99202 ==

== ENCOUNTER 2023-01-27 09:49 | Outpatient (REF) | payer OTHER, SELFPAY ==
--- NOTE | ~2023-01-27 | US_ITS ---
EXAMINATION: US THYROID CLINICAL INFORMATION: Nontoxic multinodular goiter. COMPARISON: Thyroid ultrasound 02/18/2022 and 03/04/2021. Ultrasound-guided right thyroid biopsy 05/10/2019. TECHNIQUE: Linear transducer grayscale and color Doppler examination with attention to the region of the thyroid. Technically difficult study secondary to body habitus. FINDINGS: SIZE: Measurements of the thyroid lobes and nodules are given in sagittal, anteroposterior and transverse dimensions respectively. Right Thyroid Lobe: 5.8 x 2.6 x 2.4 cm, volume 18.9 mL. Previously 5.2 x 2.4 x 2.4 cm, volume 15.7 mL. Parenchyma: The gland echotexture is homogeneous. Thyroid vascularity is normal. Left Thyroid Lobe: 4.7 x 1.6 x 1.3 cm, volume 5.1 mL. Previously 3.9 x 1.5 x 1.6 cm, volume 4.9 mL. Parenchyma: The gland echotexture is homogeneous. Thyroid vascularity is normal. Isthmus: 0.4 cm in maximum AP dimension. Previously 0.5 cm. Estimated total number of nodules greater than or equal to 1 cm: 1. Bait Maker nodules are described as follows: 1. Location: Isthmus. Size: 0.6 x 0.3 x 0.3 cm, volume 0.03 mL. Previously: 0.5 x 0.3 x 0.4 cm, volume 0.03 mL. Nodule characteristics: Composition: Solid (2). Echogenicity: Hypoechoic (2). Shape: Not taller than wide (0). Margins: Ill-defined (0). Echogenic Foci: None (0). ACR TI-RADS total points: 4 ACR TI-RADS category: 4 Significant change in size (>/= 20% in 2 dimensions and minimal increase of 2 mm or 50% or greater increase in volume): No Change in features: No Change in ACR TI-RADS risk category: No 2. Location: Right upper/mid pole. Size: 2.9 x 2.2 x 1.9 cm, volume 6.2 mL. Previously: 2.3 x 2.0 x 1.7 cm, volume 4.1 mL. Nodule characteristics: Composition: Solid (2). Echogenicity: Isoechoic (1). Shape: Taller than wide (3). Margins: Ill-defined (0). Echogenic Foci: Punctate echogenic foci (3). ACR TI-RADS total points: 9 Previous: 6 ACR TI-RADS category: 5 Previous: 4 Significant change in size (>/= 20% in 2 dimensions and minimal increase of 2 mm or 50% or greater increase in volume): Yes Change in features: Yes Change in ACR TI-RADS risk category: Yes 3. Location: Right lower pole. Size: 0.6 x 0.4 x 0.6 cm, volume 0.1 mL. Previously: 0.5 x 0.4 x 0.6 cm, volume 0.07 mL. Nodule characteristics: Composition: Solid/almost completely solid (2). Echogenicity: Hypoechoic (2). Shape: Not taller than wide (0). Margins: Smooth (0). Echogenic Foci: Punctate echogenic foci (3). ACR TI-RADS total points: 7 Previous: 2 ACR TI-RADS category: 5 Previous: 2 Significant change in size (>/= 20% in 2 dimensions and minimal increase of 2 mm or 50% or greater increase in volume): No Change in features: No Change in ACR TI-RADS risk category: No 4. Location: Left upper pole. Size: 0.4 x 0.2 x 0.4 cm, volume 0.01 mL. Previously: 0.4 x 0.2 x 0.3 cm, volume 0.02 mL. Nodule characteristics: Composition: Solid/almost completely solid (2). Echogenicity: Isoechoic (1). Shape: Not taller than wide (0). Margins: Smooth (0). Echogenic Foci: None (0). ACR TI-RADS total points: 3 Previous: 2 ACR TI-RADS category: 3 Previous: 2 Significant change in size (>/= 20% in 2 dimensions and minimal increase of 2 mm or 50% or greater increase in volume): No Change in features: No Change in ACR TI-RADS risk category: No NODES: No lymphadenopathy is seen in the tissue surrounding the thyroid gland. US/US thyroid IMPRESSION: Persistently enlarged right thyroid lobe. Multiple thyroid nodules, largest measuring 2.9 cm in the right upper/midpole with interval enlargement. Lesion now considered TI RADS 5 from previous TI RADS 4 designation. Patient reports previous right negative biopsy. Correlate with site of biopsy and pathology results. ACR TI-RADS RECOMMENDATION REFERENCE: Ultrasound-guided fine-needle aspiration, follow up ultrasound, no further followup. * TR1 (0 point) and TR2 (2 points): No FNA or followup * TR3 (3 points): FNA if more than or equal to 2.5 cm in maximum dimension, follow up ultrasound in 1, 3 and 5 years if 1.5 to 2.4 cm in maximum dimension. * TR4 (4-6 points): FNA if more than or equal to 1.5 cm in maximum dimension, follow up ultrasound in 1, 2, 3 and 5 years if 1 to 1.4 cm in maximum dimension. * TR5 (more than or equal to 7 points): FNA if more than or equal to 1 cm in maximum dimension, follow up ultrasound every year for 5 years if 0.5 to 0.9 cm in maximum dimension. * TR3, TR4 or TR5 nodules that are below the size threshold for follow up receive no followup.
== END 2023-01-27 09:50 | disposition home or self-care (01) ==
LOC: HO.US 09:49
PROVIDERS: PCP Internal Medicine; Visit Provider Internal Medicine
DX: E04.2 Nontoxic multinodular goiter (principal)
CPT/HCPCS: 76536

== ENCOUNTER 2023-02-17 10:41 | Outpatient (REF) | payer OTHER, SELFPAY ==
--- NOTE | ~2023-02-17 | CT_ITS ---
EXAMINATION: CT CHEST SCREENING CLINICAL INFORMATION: 54 pack-year smoking history; current smoker. COMPARISON: Prior CT examinations, most recently 11/19/2022. TECHNIQUE: Multidetector volumetric CT imaging of the chest is performed without contrast using low dose technique. Additional 2D coronal and sagittal reformatted images and axial 3D maximum intensity projection (MIP) images are generated on the CT workstation. This CT examination was performed using dose optimization techniques as appropriate, variously including the following: *Automated exposure control *Adjustment of mA and/or kV according to patient size (this includes techniques or standardized protocols for targeted exams where dose is matched to indication/reason for exam; i.e. extremities or head) *Use of iterative reconstruction technique DLP: 48 mGy-cm FINDINGS: LUNGS: At the lateral aspect of the posterior segment of the right upper lobe (5:159), a stable 2 mm noncalcified subpleural nodule is seen. In the superior segment of the left lower lobe (5:285 and 289), there are 2.8 x 1.5 cm and 9 mm subpleural groundglass opacities. These are both stable from 11/19/2022 upon remeasurement. There is mild biapical pleural and parenchymal scarring. There are bibasilar foci of scar/subsegmental atelectasis, without associated focal airway obstruction. No significant small airway thickening is seen. The central airways appear patent. MEDIASTINUM: The thyroid is unremarkable. There is no thoracic aortic aneurysm. There are mild atherosclerotic calcifications of the great vessel origins and thoracic aorta. No mediastinal or hilar lymphadenopathy is seen. CORONARY ARTERY CALCIFICATION: Scant. There is a very small pericardial effusion. PLEURA: There is no pleural effusion. No pleural mass or thickening. AXILLA: No lymphadenopathy. UPPER ABDOMEN: Unremarkable OSSEOUS STRUCTURES: There is multi-level mild thoracic spondylosis. No acute or aggressive osseous abnormality is seen. CT/CT lung screen follow up IMPRESSION: There are continued stable groundglass nodules, with dimensions as detailed. There is a stable 2 mm noncalcified nodule within the posterior segment of the right upper lobe. ASSESSMENT: Lung-RADS category 2: Benign RECOMMENDATION: Routine annual low-dose CT screening in 12 months.
== END 2023-02-17 10:42 | disposition home or self-care (01) ==
LOC: HO.CT 10:41
PROVIDERS: PCP Internal Medicine; Visit Provider Surgery
DX: R91.1 Solitary pulmonary nodule (principal)
CPT/HCPCS: 71250

== ENCOUNTER 2023-02-21 09:37 | Outpatient (AMB) | payer OTHER, SELFPAY ==
--- NOTE | 2023-02-21 09:55 | A.OFFVIS_ITS ---
Intake Vital Signs 02/21/23 09:56 Height 5 ft 5 in Weight 196 lb BMI 32.6 BP 110/60 Blood Pressure Location Lt brachial Position Sitting Pulse 99 Pulse Source Pulse Oximeter Pulse Oximetry (%) 89 L Oxygen Delivery Method Room Air Intake Visit Reasons: Cough Intake Note: pt is here for follow up and states she has been low O2 sats have been low, she does feel out of breath with walking distance, VNA stated maybe portable oxygen should be tested. She does have a cough, with mucous, spitting up a lot. iF md feels nebulizer is needed, she would need medication. Program Engagement Director Required: No Allergies ziprasidone [From Geodon] Allergy (Mild, Verified 02/21/23 14:12) RASH-PALPITATIONS aspirin [ASPIRIN] Allergy (Unknown, Verified 02/21/23 14:12) GI bleed, stomach upset azithromycin Allergy (Unknown, Verified 02/21/23 14:12) facial swelling cephalexin [From KEFLEX] Allergy (Unknown, Verified 02/21/23 14:12) can't remember ibuprofen [IBUPROFEN] Allergy (Unknown, Verified 02/21/23 14:12) UNKNOWN, stomach upset lisinopril Allergy (Unknown, Verified 02/21/23 14:12) cough metformin [METFORMIN] Allergy (Unknown, Verified 02/21/23 14:12) NAUSEA & VOMITING, GI upset valsartan [From Diovan] Allergy (Unknown, Verified 02/21/23 14:12) hives tiotropium [From Spiriva with HandiHaler] Adverse Reaction (Intermediate, Verified 02/21/23 14:12) Unknown NSAIDS (Non-Steroidal Anti-Inflamma [NSAIDS (NON-STEROIDAL ANTI-INFLAMMA] Adverse Reaction (Unknown, Verified 02/21/23 14:12) HX OF GI BLEED tramadol [Ultram] Adverse Reaction (Unknown, Verified 02/21/23 14:12) GI upset Medication List - Last Reconciled 02/21/23 by Nicholas Richter MD albuterol sulfate 90 mcg/actuation 2 puffs inhalation Q4H PRN 60 days aripiprazole 20 mg PO DAILY atorvastatin 40 mg PO DAILY brimonidine 0.1% (Alphagan P) 1 drp ophthalmic (eye) BID cholecalciferol (vitamin D3) 50 mcg PO BEDTIME clonazepam 1 tab PO BID PRN cyanocobalamin (vitamin B-12) (Vitamin B-12) 500 mcg PO DAILY 90 days docusate sodium 100 mg PO BID empagliflozin (Jardiance) 25 mg PO DAILY esomeprazole magnesium 40 mg PO DAILY@0630 fenofibrate 160 mg PO DAILY fluticasone propion-salmeterol 115-21 mcg/actuation (Advair HFA) 2 puffs inhalation Q12H gabapentin 600 mg PO TID insulin aspart U-100 (Novolog FlexPen U-100 Insulin aspart) 1 sliding scale dose subcut TID PRN insulin degludec (Tresiba FlexTouch U-100 insulin) 42 units subcut DAILY latanoprost 0.005% 1 drp ophthalmic (eye) BEDTIME levalbuterol tartrate 45 mcg/actuation 2 puffs inhalation Q4-6H PRN levocetirizine 5 mg PO DAILY levothyroxine 25 mcg PO DAILY@0600 liraglutide (Victoza 3-Jeanmarie) 1.8 mg (0.3 mL) subcut DAILY 90 days melatonin 9 mg PO BEDTIME [new lift chair As directed] pen needle, diabetic (Comfort EZ Pen [place]) As directed injects 3 X/day pioglitazone 15 mg PO BEDTIME quetiapine 50 mg PO BID PRN quetiapine 75 mg PO BEDTIME sennosides (senna) 17.2 mg (2 x 8.6 mg) PO BEDTIME Do you need a note to return to daycare/school/sports/work: No HPI Cough HPI Details THIS 72 YEARS OLD WELL KNOWN PATIENT IS HERE TODAY FOR FOLLOW-UP, AND COMPLAINS OF INCREASED CHEST CONGESTION, WITH INCREASED FREQUENCY OF COUGH. HER O2 SATS DO DROP DOWN WHEN SHE WALKS AROUND. SHE HAS STATIONARY CONCENTRATOR AT HOME AND USES O2 2 L/MINUTE THE WHOLE NIGHT AND P.R.N. DURING THE DAYTIME BUT ONLY AT HOME. SHE SHE DOES NOT HAVE PORTABLE UNIT. ON HER LAST VISIT 6 MINUTES WALK, DID NOT QUALIFY HER FOR A PORTABLE UNIT. UNFORTUNATELY SHE CONTINUES TO SMOKE AT LEAST 1 PACK OF CIGARETTES A DAY. THE AMOUNT OF COUGH THAT SHE HAS IS DEFINITELY RELATED TO HER CURRENT ONGOING SMOKING. SHE GETS SHORT OF BREATH EASILY, BUT DENIES ANY WHEEZING. [facility]LY [facility], [facility] Medical History (Updated 02/21/23 @ 14:27 by Nicholas Richter MD) Acute exacerbation of chronic obstructive pulmonary disease (COPD) Acute respiratory failure with hypoxia Chest pain Constipation COPD (chronic obstructive pulmonary disease) Depression Dermatitis of vulva العلي (dyspnea on exertion) Exercise hypoxemia HLD (hyperlipidemia) Jaw pain Lower extremity pain Multinodular thyroid Nicotine dependence, cigarettes, uncomplicated Nocturnal hypoxemia Osteopenia (~2015) Pulmonary nodule Recurrent major depression-severe Sialoadenitis Smoker Spinal stenosis T2DM (type 2 diabetes mellitus) (~2008) Vitamin D deficiency Surgical History History of cardiac catheterization History of lithotripsy Hx of arthroscopy of left knee Hx of cholecystectomy Hx of colonoscopy Hx of spinal fusion S/P thyroid biopsy Family History Father No problems noted. Mother Cancer Diabetes Social History Household Members: None Housing: Apartment Do you presently have visiting nurse or other home services: Yes Alcohol intake: former Patient Tobacco Use Status: Current everyday Tobacco user Smoking Start Date: 04/01/1964 Tobacco use type: Cigarette Cigarette Packs Per Day: 1.5 Cigarettes Per Day: 39 e-Cigarette/Vaping Use: Former Use Second Hand Smoke Exposure: Yes Advance Directives Date on File: 04/02/21 service: No Current occupational status: retired Sexual orientation: Straight/Heterosexual Cognitive needs: No Hearing needs: No Vision needs: Yes Female Reproductive History Menstrual Age of Menarche: 12 Review of Systems Const All systems reviewed & are unremarkable except as noted in HPI and below Eyes Reports no additional complaints ENT Reports nasal congestion (Mild intermittent) Card Denies chest pain, Denies irregular heart rhythm and Denies leg edema Resp Reports as per HPI GI Reports constipation and Reports dyspepsia Reports no additional complaints Musc Reports abnormal gait (Gait impaired has to use walker), Reports back pain and Reports arthralgias Skin/Breast Reports system reviewed and no additional complaints, except as documented Neuro Reports abnormal gait (Gait impaired has to use walker) Psych Reports anxiety, Reports depression and Reports mood swings Endo Reports other (Being treated for diabetes mellitus) Physical Exam Vital Signs: Last Vital Signs Pulse 99 02/21/23 09:56 BP 110/60 02/21/23 09:56 Pulse Ox 89 L 02/21/23 09:56 Oxygen Delivery Method Room Air 02/21/23 09:56 BMI result Body Mass Index 32.6 Const General: comfortable and no acute distress Orientation/consciousness: patient oriented x3 HEENT Head: Yes normal to inspection General nose exam: No nasal polyps present and No nasal discharge present Face and sinus: Yes sinuses nontender Mouth: oropharynx abnormals (Crowded, Mallampati class 4) Throat: Yes posterior oropharynx normal Eyes General: appearance normal, both eyes and all related structures Neck Neck: Yes normal visual inspection, Yes no lymphadenopathy, Yes trachea midline and Yes no JVD Thyroid: Thyroid normal Chest Chest palpation & inspection: normal inspection of the chest, normal palpation of entire chest wall and no tenderness Resp Other: Percussion note resonant, breath sounds are distant with prolonged expiratory phase. She has a few scattered expiratory wheezes over the lower lobes, no crepitations. Cardio Palpation: normal PMI Rate: regular rate Rhythm: regular rhythm Heart sounds: no gallops and no murmurs GI Palpation (GI): Soft to palpation, nontender, No hepatosplenomegaly present and no masses Auscultation: normal bowel sounds Back/Spine/Pelvis Thoracic/Lumbar Spine: thoracic and lumbar spine normal to inspection and thoraco-lumbar ROM limited Skin General skin exam: no rashes or lesions noted Neuro General: patient oriented x3, No gait normal (Somewhat unsteady gait, uses walker) and no focal motor deficits Cranial nerves: Yes CN's II-XII intact bilaterally Extrem General: Yes normal to inspection, Yes no clubbing, cyanosis or edema and Yes no calf tenderness Psych Appearance: grossly normal and well kempt Speech and movement: Normal speech and movement present Office Procedures 6 Minute Walk Time:: 10:20 SPO2 % at rest: 90 Pulse at rest: 96 SPO2 % during excercise: 87 Pulse during excercise: 117 SPO2 % after excercise: 94 Pulse after excercise: 115 Distance in yards walked: 120 Carlton Score: 3 Performance Observations:: Sofiya walked on level ground with the assistance of a walker, she walked for 2 minutes before her SPO2 decreased to 87% on room air. O2 started at 1 lpm and her SPO2 remained at 88%, O2 increased to 2 lpm and her SPO2 recovered 93%. She maintained her SPO2 92-93% on 2 lpm with exertion. [id number] - 6 Minute Walk Assessment & Plan Assessment & Plan (1) COPD (chronic obstructive pulmonary disease): Comment: Long-time chronic obstructive pulmonary disease, moderately severe,, controlled and stable. [place] : Advair HFA 115-21 2 puffs b.i.d. Levalbuterol -45 2 puffs Q 4-6 hours p.r.n.. *She has nebulizer at home, prescribed ipratropium-albuterol solution to be used in the nebulizer Q 6 hours p.r.n. at home Code(s): J44.9 - Chronic obstructive pulmonary disease, unspecified (2) Nocturnal hypoxemia: Comment: She has evidence of nocturnal hypoxemia since 2007 . That is when she had an OVERNIGHT SLEEP STUDY, showing only minimal degree of ADDIS, total sleep time AHI 5.5, But persistent nocturnal hypoxemia. She has been treated with oxygen at night 2 L/MT . Now she uses 2 L/mt PRN during the day time also . Code(s): G47.34 - Idiopathic sleep related nonobstructive alveolar hypoventilation (3) Exercise hypoxemia: Comment: 6 minutes walk test today , showed that she did desaturate on room air and needed O2 2 L/minute for walking. She will be prescribed a portable unit, wants to have POC . Which will be indicated in the order. Code(s): R09.02 - Hypoxemia (4) Pulmonary nodule: Comment: Patient has multiple small pulmonary nodules unchanged from before Two ground-glass nodular densities in lower lobes are somewhat increased from before. Need to be followed up closely. She is being followed by, our Lung screening team. Last CT scan on 11/19/22--- IMPRESSION: New groundglass attenuation left lower lobe nodules, largest measuring 1.3 x 2.7 cm. emphysema. ASSESSMENT: Lung-RADS category 4A: Suspicious . CT scan on 02/17 done, final report pending. Code(s): R91.1 - Solitary pulmonary nodule (5) Smoker: Comment: Patient is a lifelong smoker. Currently smoking 1 pack of cigarettes a day. We have had repeated discussions about says quitting smoking. She has underlying bipolar disorder and is difficult for her to quit. I told her to at least cut down to half pack a day. Code(s): F17.200 - Nicotine dependence, unspecified, uncomplicated Orders: Orders AMB 6 minute walk Today J44.9 - Chronic obstructive pulmonary disease, unspecified Coding Level of Care Code Est Pt Level 4 (90761) Diagnoses COPD (chronic obstructive pulmonary disease) J44.9 Nocturnal hypoxemia G47.34 Exercise hypoxemia R09.02 Pulmonary nodule R91.1 Smoker F17.200 CPT Codes Coding ([id number])
[2023-02-21 09:56] VITALS: BP 110/60; PULSE 99; O2SAT 89; BMI 32.6
[2023-02-21 10:47] VITALS: PULSE 96; O2SAT 90
== END 2023-02-21 10:56 | disposition home or self-care (01) ==
PROVIDERS: PCP Internal Medicine; Visit Provider Internal Medicine
DX: J44.9 Chronic obstructive pulmonary disease, unspecified (principal); G47.34 Idiopathic sleep related nonobstructive alveolar hypoventilation; R09.02 Hypoxemia; R91.1 Solitary pulmonary nodule; F17.200 Nicotine dependence, unspecified, uncomplicated
CPT/HCPCS: 94618; 99214

== ENCOUNTER → 2023-02-21 09:37 | Outpatient (BNVA) | payer OTHER, SELFPAY | PROVIDERS: Visit Provider Internal Medicine | DX: J44.9 Chronic obstructive pulmonary disease, unspecified (principal); R09.02 Hypoxemia; G47.34 Idiopathic sleep related nonobstructive alveolar hypoventilation; R91.1 Solitary pulmonary nodule; F17.200 Nicotine dependence, unspecified, uncomplicated | CPT/HCPCS: 94618; 99212 ==

== ENCOUNTER 2023-03-04 11:01 | Outpatient (AMB) | payer OTHER, SELFPAY ==
--- NOTE | 2023-03-04 11:19 | MHC.OFFVIS ---
Intake Vital Signs 03/04/23 11:28 Height 5 ft 5 in Weight 194 lb BMI 32.3 BP 110/70 Blood Pressure Location Lt brachial Position Sitting Pulse 104 H Pulse Oximetry (%) 93 Intake Visit Reasons: LDCT Rad 4 Allergies ziprasidone [From Geodon] Allergy (Mild, Verified 03/04/23 11:19) RASH-PALPITATIONS aspirin [ASPIRIN] Allergy (Unknown, Verified 03/04/23 11:19) GI bleed, stomach upset azithromycin Allergy (Unknown, Verified 03/04/23 11:19) facial swelling cephalexin [From KEFLEX] Allergy (Unknown, Verified 03/04/23 11:19) can't remember ibuprofen [IBUPROFEN] Allergy (Unknown, Verified 03/04/23 11:19) UNKNOWN, stomach upset lisinopril Allergy (Unknown, Verified 03/04/23 11:19) cough metformin [METFORMIN] Allergy (Unknown, Verified 03/04/23 11:19) NAUSEA & VOMITING, GI upset valsartan [From Diovan] Allergy (Unknown, Verified 03/04/23 11:19) hives tiotropium [From Spiriva with HandiHaler] Adverse Reaction (Intermediate, Verified 03/04/23 11:19) Unknown NSAIDS (Non-Steroidal Anti-Inflamma [NSAIDS (NON-STEROIDAL ANTI-INFLAMMA] Adverse Reaction (Unknown, Verified 03/04/23 11:19) HX OF GI BLEED tramadol [Ultram] Adverse Reaction (Unknown, Verified 03/04/23 11:19) GI upset Medication List - Last Reconciled 03/04/23 by Zana Toledo MD albuterol sulfate 90 mcg/actuation 2 puffs inhalation Q4H PRN 60 days aripiprazole 20 mg PO DAILY atorvastatin 40 mg PO DAILY brimonidine 0.1% (Alphagan P) 1 drp ophthalmic (eye) BID cholecalciferol (vitamin D3) 50 mcg PO BEDTIME clonazepam 1 tab PO BID PRN cyanocobalamin (vitamin B-12) (Vitamin B-12) 500 mcg PO DAILY 90 days docusate sodium 100 mg PO BID empagliflozin (Jardiance) 25 mg PO DAILY esomeprazole magnesium 40 mg PO DAILY@0630 fenofibrate 160 mg PO DAILY fexofenadine 180 mg PO DAILY fluticasone propion-salmeterol 115-21 mcg/actuation (Advair HFA) 2 puffs inhalation Q12H gabapentin 600 mg PO TID insulin aspart U-100 (Novolog FlexPen U-100 Insulin aspart) 1 sliding scale dose subcut TID PRN insulin degludec (Tresiba FlexTouch U-100 insulin) 42 units subcut DAILY latanoprost 0.005% 1 drp ophthalmic (eye) BEDTIME levalbuterol tartrate 45 mcg/actuation 2 puffs inhalation Q4-6H PRN levothyroxine 25 mcg PO DAILY@0600 liraglutide (Victoza 3-Jeanmarie) 1.8 mg (0.3 mL) subcut DAILY 90 days melatonin 9 mg PO BEDTIME [new lift chair As directed] pen needle, diabetic (Comfort EZ Pen [place]) As directed injects 3 X/day pioglitazone 15 mg PO BEDTIME quetiapine 50 mg PO BID PRN quetiapine 75 mg PO BEDTIME sennosides (senna) 17.2 mg (2 x 8.6 mg) PO BEDTIME HPI LDCT Rad 4 HPI Details 72-year-old woman long-time and current smoker smokes about a pack and half per day since her teenage years as part of the lung cancer screening program here at [facility]. She had a low-dose CT scan of the chest on 11/19/2022 which was compared with 11/09/2021 and a CTA on 06/11/2021. recent CT scan and all the scans were reviewed interpreted by me directly. This shows a left lower lobe ground-glass opacity that is new measuring 1.3 x 2.7 cm with non distinct borders as well as a separate 1 cm x 0.8 cm ground-glass opacity adjacent. These do appear rather nondistinct and likely infectious or inflammatory. There is no mediastinal lymphadenopathy and no pleural fluid. We did a three month f/u ct as per guidelines done on 02/17/2023. This shows the ggo's to be still present and stable in size. This was reviewed and interpreted by me directly. Her mother and sister both had lung cancer. She reports feeling generally good health she does have some intentional weight loss but denies fevers chills soaking sweats or fatigue. She denies chest pain or hemoptysis. She does report shortness of breath with activity and a persistent chronic cough. She denies any new neurologic symptoms although she does have some lightheadedness occasionally and poor coordination. Other than above, 12 point review of systems was done and documented separately in the office chart with detailed social and family history. [facility] Medical History Smoker Exercise hypoxemia Nicotine dependence, cigarettes, uncomplicated Dermatitis of vulva Acute respiratory failure with hypoxia Acute exacerbation of chronic obstructive pulmonary disease (COPD) Recurrent major depression-severe Lower extremity pain Sialoadenitis Jaw pain العلي (dyspnea on exertion) Chest pain Osteopenia (~2015) Pulmonary nodule Constipation Nocturnal hypoxemia COPD (chronic obstructive pulmonary disease) Spinal stenosis Depression Vitamin D deficiency Multinodular thyroid HLD (hyperlipidemia) T2DM (type 2 diabetes mellitus) (~2008) Surgical History S/P thyroid biopsy History of lithotripsy History of cardiac catheterization Hx of colonoscopy Hx of arthroscopy of left knee Hx of spinal fusion Hx of cholecystectomy Family History Father No problems noted. Mother Cancer Diabetes Social History Household Members: None Housing: Apartment Do you presently have visiting nurse or other home services: Yes Alcohol intake: former Patient Tobacco Use Status: Current everyday Tobacco user Smoking Start Date: 04/01/1964 Tobacco use type: Cigarette Cigarette Packs Per Day: 1.5 Cigarettes Per Day: 39 e-Cigarette/Vaping Use: Former Use Second Hand Smoke Exposure: Yes Advance Directives Date on File: 04/02/21 service: No Current occupational status: retired Sexual orientation: Straight/Heterosexual Cognitive needs: No Hearing needs: No Vision needs: Yes Female Reproductive History Menstrual Age of Menarche: 12 Physical Exam Vital Signs: Last Vital Signs Pulse 104 H 03/04/23 11:28 BP 110/70 03/04/23 11:28 Pulse Ox 93 03/04/23 11:28 BMI result Body Mass Index 32.3 nad rrr ctab abd soft Assessment & Plan Assessment & Plan (1) Pulmonary nodule: Comment: Patient has multiple small pulmonary nodules unchanged from before Two ground-glass nodular densities in lower lobes are somewhat increased from before. Need to be followed up closely. She is being followed by, our Lung screening team. Last CT scan on 11/19/22--- IMPRESSION: New groundglass attenuation left lower lobe nodules, largest measuring 1.3 x 2.7 cm. emphysema. ASSESSMENT: Lung-RADS category 4A: Suspicious . CT scan on 02/17 done, final report pending. Code(s): R91.1 - Solitary pulmonary nodule Plan: Discussed findings on CT chest f/u with stable ggo's however still present making them less likely to be inflammatory. Would recommend 6 month f/u ct and visit. She does not want to have a visit at [facility] so will check with her associate genetics professor and see how he wants to proceed. I did explain ggn's to patient and that if they are cancer they are usually low grade. She was also prescribed 02 with activity which she is not using at the moment. Coding Level of Care Code Est Pt Level 4 (28587) Diagnoses Pulmonary nodule R91.1
[2023-03-04 11:28] VITALS: BP 110/70; PULSE 104; O2SAT 93; BMI 32.3
== END 2023-03-04 11:34 | disposition home or self-care (01) ==
PROVIDERS: PCP Internal Medicine; Visit Provider Surgery
DX: R91.1 Solitary pulmonary nodule (principal)

== ENCOUNTER → 2023-03-04 11:01 | Outpatient (BNVA) | payer OTHER, SELFPAY | PROVIDERS: PCP Internal Medicine; Visit Provider Surgery | DX: R91.8 Other nonspecific abnormal finding of lung field (principal) | CPT/HCPCS: 99212 ==

== ENCOUNTER 2023-03-22 09:47 | Outpatient (AMB) | payer OTHER, SELFPAY ==
[2023-03-22 10:03] VITALS: BP 108/68; PULSE 88; O2SAT 91; BMI 32.1
--- NOTE | 2023-03-22 10:03 | A.OFFPC_ITS ---
Vital Signs 03/22/23 10:03 Height 5 ft 5 in Weight 193 lb BMI 32.1 BP 108/68 Blood Pressure Location Lt brachial Position Sitting Pulse 88 Pulse Source Pulse Oximeter Pulse Oximetry (%) 91 L Oxygen Delivery Method Room Air Intake Visit Reasons: Follow Up Allergies ziprasidone [From Geodon] Allergy (Mild, Verified 03/22/23 10:04) RASH-PALPITATIONS aspirin [ASPIRIN] Allergy (Unknown, Verified 03/22/23 10:04) GI bleed, stomach upset azithromycin Allergy (Unknown, Verified 03/22/23 10:04) facial swelling cephalexin [From KEFLEX] Allergy (Unknown, Verified 03/22/23 10:04) can't remember ibuprofen [IBUPROFEN] Allergy (Unknown, Verified 03/22/23 10:04) UNKNOWN, stomach upset lisinopril Allergy (Unknown, Verified 03/22/23 10:04) cough metformin [METFORMIN] Allergy (Unknown, Verified 03/22/23 10:04) NAUSEA & VOMITING, GI upset valsartan [From Diovan] Allergy (Unknown, Verified 03/22/23 10:04) hives tiotropium [From Spiriva with HandiHaler] Adverse Reaction (Intermediate, V erified 03/22/23 10:04) Unknown NSAIDS (Non-Steroidal Anti-Inflamma [NSAIDS (NON-STEROIDAL ANTI-INFLAMMA] Adverse Reaction (Unknown, Verified 03/22/23 10:04) HX OF GI BLEED tramadol [Ultram] Adverse Reaction (Unknown, Verified 03/22/23 10:04) GI upset Tobacco use date assessed: 12/02/22 Fall risk assessment: No Falls in past year Last assessed Fall Risk: 03/22/23 Dental Screening Dental Screen Date: 03/22/23 Did you have a dental visit in the last 12 months?: Yes Did you have a dental problem in the last 6 months where you did not have access to dental care?: No Was dental information given to patient?: Patient has dentist HPI Follow Up HPI Details 72-year-old obese female with diabetes m ellitus chronic obstructive pulmonary disease coming in for follow-up. Last seen in November 2022 bone density is due. Patient follows up with thoracic surgeon with regards to the lung cancer screening program. September 2022 CT scan done advised to 6 month follow-up CT. Patient also follows up with Pulmonary for the COPD patient on Advair and levalbuterol has nocturnal hypoxemia on oxygen. Patient was seen by Endocrinology also for the thyroid nodule persistently enlarged right thyroid lobe on ultrasound January 2023 multiple thyroid nodules with 2.9 cm on the right had previous biopsy negative- will schedule for another biopsy - [facility] Medical History (Updated 03/22/23 @ 10:43 by Chiquis Grajeda MD) T2DM (type 2 diabetes mellitus) (~2008) Smoker Exercise hypoxemia Nicotine dependence, cigarettes, uncomplicated Dermatitis of vulva Acute respiratory failure with hypoxia Acute exacerbation of chronic obstructive pulmonary disease (COPD) Recurrent major depression-severe Lower extremity pain Sialoadenitis Jaw pain العلي (dyspnea on exertion) Chest pain Osteopenia (~2015) Pulmonary nodule Constipation Nocturnal hypoxemia COPD (chronic obstructive pulmonary disease) Spinal stenosis Depression Vitamin D deficiency Multinodular thyroid HLD (hyperlipidemia) Surgical History S/P thyroid biopsy History of lithotripsy History of cardiac catheterization Hx of colonoscopy Hx of arthroscopy of left knee Hx of spinal fusion Hx of cholecystectomy Family History Father No problems noted. Mother Cancer Diabetes Social History Household Members: None Housing: Apartment Do you presently have visiting nurse or other home services: Yes Alcohol intake: former Patient Tobacco Use Status: Current everyday Tobacco user Smoking Start Date: 04/01/1964 Tobacco use type: Cigarette Cigarette Packs Per Day: 1.5 Cigarettes Per Day: 39 e-Cigarette/Vaping Use: Former Use Second Hand Smoke Exposure: Yes Advance Directives Date on File: 04/02/21 service: No Current occupational status: retired Sexual orientation: Straight/Heterosexual Cognitive needs: No Hearing needs: No Vision needs: Yes Female Reproductive History Menstrual Age of Menarche: 12 Questionnaire PHQ-9 Over the last 2 weeks, how often have you been bothered by any of the following problems? 1. Little interest or pleasure in doing things: not at all 2. Feeling down, depressed, or hopeless: not at all 3. Trouble falling or staying asleep, or sleeping too much: not at all 4. Feeling tired or having little energy: not at all 5. Poor appetite or overeating: not at all 6. Feeling bad about yourself - or that you are a failure or have let yourself or your family down: not at all 7. Trouble concentrating on things, such as reading the newspaper or watching television: not at all 8. Moving or speaking so slowly that other people could have noticed. Or the opposite - being so fidgety or restless that you have been moving around a lot more than usual: not at all 9. Thoughts that you would be better off or of hurting yourself in some way: not at all Total score: 0 Depression Screening Interpretation: Negative Source: Developed by Drs. Masoud Gomez, Desi Mabry, George Cates and colleagues, with an educational zoila from [employer]. Thrive Questionnaire Date Thrive assessed: 10/22/22 AUDIT C Alcohol Use Questionnaire (AUDIT-C) 1. How often do you have a drink containing alcohol?: Never 3. How often do you have six or more drinks on one occasion?: Never Total Score: 0 GABRIELE-7 AMB Questionnaire GABRIELE-7 Date GABRIELE - 7 assessed: 07/19/22 Source: Developed by Drs. Masoud Gomez, Desi Mabry, George Cates and colleagues, with an educational zoila from [employer]. Physical exam (Primary Care) Vital Signs: Last Vital Signs Pulse 88 03/22/23 10:03 BP 108/68 03/22/23 10:03 Pulse Ox 91 L 03/22/23 10:03 Oxygen Delivery Method Room Air 03/22/23 10:03 BMI result Body Mass Index 32.1 Tobacco/Smoking Status: Tobacco use Status Tobacco use date assessed 12/02/22 03/22/23 10:05 Patient Tobacco Use Status Current everyday Tobacco 03/22/23 10:05 Tobacco use type Cigarette 03/22/23 10:05 e-Cigarette/Vaping Use Former Use 03/22/23 10:05 PHQ-9: PHQ-9 Score PHQ-9: Total score 0 03/22/23 10:31 Depression Screening Interpretation: Negative Thrive Assessment: Date of Thrive Assessment Date Thrive assessed 10/22/22 03/22/23 10:05 Const General: alert; No acute distress Eyes Conjunctivae: conjunctivae normal Resp Auscultation: clear to auscultation bilaterally Cardio Rate: regular rate Rhythm: regular rhythm GI Inspection: Yes normal to inspection Extrem General: Yes normal to inspection and No edema Results AMB Hemoglobin A1c AMB Hemoglobin A1c 7.0 % Last Edit by Kamini Brunner CMA on 03/22/23 10 :31 Results Reviewed Results Reviewed: Laboratory Last Values Hgb A1c (Clinic) 7.0 % (4.0-6.0) H 03/22/23 10:05 Assessment and Plan Assessment & Plan (1) Type 2 diabetes mellitus with hyperglycemia: Code(s): E11.65 - Type 2 diabetes mellitus with hyperglycemia Plan: Decrease the amount of carbohydrate intake, pasta, bread, rice and potatoes are all sugar and that is aside from all the sweet stuff, remember that fruits are good but they are Sweet also. Hemoglobin A1c goal of less than 7.0 patient is on Victoza pioglitazone Tresiba NovoLog Jardiance (2) COPD (chronic obstructive pulmonary disease): Comment: Long-time chronic obstructive pulmonary disease, moderately severe,, controlled and stable. TX : Advair HFA 115-21 2 puffs b.i.d. Levalbuterol -45 2 puffs Q 4-6 hours p.r.n.. *She has nebulizer at home, prescribed ipratropium-albuterol solution to be used in the nebulizer Q 6 hours p.r.n. at home Code(s): J44.9 - Chronic obstructive pulmonary disease, unspecified Plan: Continue with inhaler Advair and albuterol (3) Pulmonary nodule: Comment: Patient has multiple small pulmonary nodules unchanged from before Two ground-glass nodular densities in lower lobes are somewhat increased from before. Need to be followed up closely. She is being followed by, our Lung screening team. Last CT scan on 11/19/22--- IMPRESSION: New groundglass attenuation left lower lobe nodules, largest measuring 1.3 x 2.7 cm. emphysema. ASSESSMENT: Lung-RADS category 4A: Suspicious . CT scan on 02/17 done, final report pending. Code(s): R91.1 - Solitary pulmonary nodule Plan: Patient is being followed up with a CT scan with January 2023 last 1 advised to follow up follow-up in 6 months (4) Multinodular thyroid: Comment: (NTMNG) Code(s): E04.2 - Nontoxic multinodular goiter Plan: Ultrasound done revealing multinodular thyroid January 2023 patient followed up by Endocrinology (5) Hypothyroid: Code(s): E03.9 - Hypothyroidism, unspecified Plan: Continue with thyroid medication (6) HLD (hyperlipidemia): Code(s): E78.5 - Hyperlipidemia, unspecified Qualifiers: Hyperlipidemia type: unspecified Qualified Code(s): E78.5 - Hyperlipidemia, unspecified Plan: Avoid fried foods, chicken skin, eggs, butter margarine, pastries and meat. Be it pork or beef they have a lot of cholesterol LDL goal of less than 100 and triglyceride of less than 150. (7) GERD (gastroesophageal reflux disease): Code(s): K21.9 - Gastro-esophageal reflux disease without esophagitis Plan: Avoid the foods that causes that usually spicy foods, tomato products, juices, coffee, soda and foods that your sensitive to. After eating do not lie down, allow 3-4 hours before in lie down. And keep the head of bed above 30 degrees to avoid the acid from going up. (8) Depression: Comment: f/u psychiatrist Code(s): F32.9 - Major depressive disorder, single episode, unspecified Plan: Continue with counseling and therapy, awaiting the call Orders: Orders AMB Hemoglobin A1c Today Z13.9 - Encounter for screening, unspecified Coding Level of Care Code Est Pt Level 4 (64312) Diagnoses Type 2 diabetes mellitus with hyperglycemia E11.65 COPD (chronic obstructive pulmonary disease) J44.9 Pulmonary nodule R91.1 Multinodular thyroid E04.2 Hypothyroid E03.9 Hyperlipidemia, unspecified hyperlipidemia type E78.5 Hyperlipidemia type: unspecified GERD (gastroesophageal reflux disease) K21.9 Depression F32.9
== END 2023-03-22 10:56 | disposition home or self-care (01) ==
PROVIDERS: PCP Internal Medicine; Visit Provider Internal Medicine
DX: E11.65 Type 2 diabetes mellitus with hyperglycemia (principal); J44.9 Chronic obstructive pulmonary disease, unspecified; R91.1 Solitary pulmonary nodule; E04.2 Nontoxic multinodular goiter
CPT/HCPCS: 83036; 99214

== ENCOUNTER 2023-05-16 09:22 | Outpatient (AMB) | payer OTHER, SELFPAY ==
[2023-05-16 09:52] VITALS: BP 102/62; PULSE 88; O2SAT 93; BMI 32.3
--- NOTE | 2023-05-16 09:52 | A.OFFVIS_ITS ---
Intake Vital Signs 05/16/23 09:52 Height 5 ft 5 in Weight 194 lb BMI 32.3 BP 102/62 Blood Pressure Location Lt brachial Position Sitting Pulse 88 Pulse Oximetry (%) 93 Oxygen Delivery Method Room Air Intake Visit Reasons: COPD Intake Note: pt is here for follow up and states her breathing is good, using oxygen at night, breathing exercising a lot , she does them in the morning. Corporate Operations Compliance Manager Required: No Allergies ziprasidone [From Geodon] Allergy (Mild, Verified 05/16/23 10:11) RASH-PALPITATIONS aspirin [ASPIRIN] Allergy (Unknown, Verified 05/16/23 10:11) GI bleed, stomach upset azithromycin Allergy (Unknown, Verified 05/16/23 10:11) facial swelling cephalexin [From KEFLEX] Allergy (Unknown, Verified 05/16/23 10:11) can't remember ibuprofen [IBUPROFEN] Allergy (Unknown, Verified 05/16/23 10:11) UNKNOWN, stomach upset lisinopril Allergy (Unknown, Verified 05/16/23 10:11) cough metformin [METFORMIN] Allergy (Unknown, Verified 05/16/23 10:11) NAUSEA & VOMITING, GI upset valsartan [From Diovan] Allergy (Unknown, Verified 05/16/23 10:11) hives tiotropium [From Spiriva with HandiHaler] Adverse Reaction (Intermediate, Verified 05/16/23 10:11) Unknown NSAIDS (Non-Steroidal Anti-Inflamma [NSAIDS (NON-STEROIDAL ANTI-INFLAMMA] Adverse Reaction (Unknown, Verified 05/16/23 10:11) HX OF GI BLEED tramadol [Ultram] Adverse Reaction (Unknown, Verified 05/16/23 10:11) GI upset Medication List - Last Reconciled 05/16/23 by Nicholas Richter MD albuterol sulfate 90 mcg/actuation 2 puffs inhalation Q4H PRN 60 days aripiprazole 20 mg PO DAILY atorvastatin 40 mg PO DAILY brimonidine 0.1% (Alphagan P) 1 drp ophthalmic (eye) BID cholecalciferol (vitamin D3) 50 mcg PO BEDTIME clonazepam 1 tab PO BID PRN cyanocobalamin (vitamin B-12) (Vitamin B-12) 500 mcg PO DAILY 90 days docusate sodium 100 mg PO BID empagliflozin (Jardiance) 25 mg PO DAILY esomeprazole magnesium 40 mg PO DAILY@0630 fenofibrate 160 mg PO DAILY fexofenadine 180 mg PO DAILY fluticasone propion-salmeterol 115-21 mcg/actuation (Advair HFA) 2 puffs inhalation Q12H gabapentin 600 mg PO TID insulin aspart U-100 (Novolog FlexPen U-100 Insulin aspart) Novolog sliding scale 3 times daily (200-250: 4 units, 251-300: 6 units, 301 - 350: 8 units, >351: 10 units) insulin degludec (Tresiba FlexTouch U-100 insulin) 42 units (0.42 mL) subcut DAILY latanoprost 0.005% 1 drp ophthalmic (eye) BEDTIME levalbuterol tartrate 45 mcg/actuation 2 puffs inhalation Q4-6H PRN levothyroxine 25 mcg PO DAILY@0600 liraglutide (Victoza 3-Jeanmarie) 1.8 mg (0.3 mL) subcut DAILY 90 days melatonin 9 mg PO BEDTIME [new lift chair As directed] pen needle, diabetic (Comfort EZ Pen [place]) As directed injects 3 X/day pioglitazone 15 mg PO BEDTIME quetiapine 50 mg PO BID PRN quetiapine 75 mg PO BEDTIME sennosides (senna) 17.2 mg (2 x 8.6 mg) PO BEDTIME Do you need a note to return to daycare/school/sports/work: No HPI COPD HPI Details 72 years old female, comes for follow-up after 3 months. Patient continues to smoke, , 1 and half pack of cigarettes a day. She has advanced chronic obstructive pulmonary disease which is remaining stable. She also needs O2 at night, and she qualified for portable unit, as per 6 minutes walk on her last visit. However she had a bout of COVID-19 infection at home, once recovered she said her O2 sats improved and she had requested to remove the portable unit from her house. She is also being followed for pulmonary nodules, 2 gg . Densities are being followed closely. She used to be followed up by Dr. Cam who , does not come here anymore and she does not want to go to [facility]. So she would be monitored here closely. [facility] Medical History T2DM (type 2 diabetes mellitus) (~2008) Smoker Exercise hypoxemia Nicotine dependence, cigarettes, uncomplicated Dermatitis of vulva Acute respiratory failure with hypoxia Acute exacerbation of chronic obstructive pulmonary disease (COPD) Recurrent major depression-severe Lower extremity pain Sialoadenitis Jaw pain العلي (dyspnea on exertion) Chest pain Osteopenia (~2015) Pulmonary nodule Constipation Nocturnal hypoxemia COPD (chronic obstructive pulmonary disease) Spinal stenosis Depression Vitamin D deficiency Multinodular thyroid HLD (hyperlipidemia) Surgical History S/P thyroid biopsy History of lithotripsy History of cardiac catheterization Hx of colonoscopy Hx of arthroscopy of left knee Hx of spinal fusion Hx of cholecystectomy Family History Father No problems noted. Mother Cancer Diabetes Social History Household Members: None Housing: Apartment Do you presently have visiting nurse or other home services: Yes Alcohol intake: former Patient Tobacco Use Status: Current everyday Tobacco user Smoking Start Date: 04/01/1964 Tobacco use type: Cigarette Cigarette Packs Per Day: 1.5 Cigarettes Per Day: 39 e-Cigarette/Vaping Use: Former Use Second Hand Smoke Exposure: Yes Advance Directives Date on File: 04/02/21 service: No Current occupational status: retired Sexual orientation: Straight/Heterosexual Cognitive needs: No Hearing needs: No Vision needs: Yes Female Reproductive History Menstrual Age of Menarche: 12 Review of Systems Const All systems reviewed & are unremarkable except as noted in HPI and below Eyes Reports no additional complaints ENT Reports nasal congestion (Mild intermittent) Card Denies chest pain, Denies irregular heart rhythm and Denies leg edema Resp Reports as per HPI GI Reports constipation and Reports dyspepsia Reports no additional complaints Musc Reports abnormal gait (Gait impaired has to use walker), Reports back pain and Reports arthralgias Skin/Breast Reports system reviewed and no additional complaints, except as documented Neuro Reports abnormal gait (Gait impaired has to use walker) Psych Reports anxiety, Reports depression and Reports mood swings Endo Reports other (Being treated for diabetes mellitus) Physical Exam Vital Signs: Last Vital Signs Pulse 88 05/16/23 09:52 BP 102/62 05/16/23 09:52 Pulse Ox 93 05/16/23 09:52 Oxygen Delivery Method Room Air 05/16/23 09:52 BMI result Body Mass Index 32.3 Const General: comfortable and no acute distress Orientation/consciousness: patient oriented x3 HEENT Head: Yes normal to inspection General nose exam: No nasal polyps present and No nasal discharge present Face and sinus: Yes sinuses nontender Mouth: oropharynx abnormals (Crowded, Mallampati class 4) Throat: Yes posterior oropharynx normal Eyes General: appearance normal, both eyes and all related structures Neck Neck: Yes normal visual inspection, Yes no lymphadenopathy, Yes trachea midline and Yes no JVD Thyroid: Thyroid normal Chest Chest palpation & inspection: normal inspection of the chest, normal palpation of entire chest wall and no tenderness Resp Other: Percussion note resonant, breath sounds are distant with prolonged expiratory phase. She has a few scattered expiratory wheezes over the lower lobes, no crepitations. Cardio Palpation: normal PMI Rate: regular rate Rhythm: regular rhythm Heart sounds: no gallops and no murmurs GI Palpation (GI): Soft to palpation, nontender, No hepatosplenomegaly present and no masses Auscultation: normal bowel sounds Back/Spine/Pelvis Thoracic/Lumbar Spine: thoracic and lumbar spine normal to inspection and thoraco-lumbar ROM limited Skin General skin exam: no rashes or lesions noted Neuro General: patient oriented x3, No gait normal (Somewhat unsteady gait, uses walker) and no focal motor deficits Cranial nerves: Yes CN's II-XII intact bilaterally Extrem General: Yes normal to inspection, Yes no clubbing, cyanosis or edema and Yes no calf tenderness Psych Appearance: grossly normal and well kempt Speech and movement: Normal speech and movement present Assessment & Plan Assessment & Plan (1) COPD (chronic obstructive pulmonary disease): Comment: Long-time chronic obstructive pulmonary disease, moderately severe,, controlled and stable. TX : Advair HFA 115-21 2 puffs b.i.d. Levalbuterol -45 2 puffs Q 4-6 hours p.r.n.. *She has nebulizer at home, prescribed ipratropium-albuterol solution to be used in the nebulizer Q 6 hours p.r.n. at home Code(s): J44.9 - Chronic obstructive pulmonary disease, unspecified Plan: As above (2) Smoker: Comment: Patient is a lifelong smoker. Currently smoking 1and 1/2 pack of cigarettes a day. We have had repeated discussions about says quitting smoking. She has underlying bipolar disorder and is difficult for her to quit. I told her to at least cut down to half pack a day. Code(s): F17.200 - Nicotine dependence, unspecified, uncomplicated Plan: Long-term smoker. Not able. To quit completely ( BIPOLAR DISORDER ) (3) Nocturnal hypoxemia: Comment: She has evidence of nocturnal hypoxemia since 2007 . That is when she had an OVERNIGHT SLEEP STUDY, showing only minimal degree of ADDIS, total sleep time AHI 5.5, But persistent nocturnal hypoxemia. She has been treated with oxygen at night 2 L/MT . Now she uses 2 L/mt PRN during the day time prn . Code(s): G47.34 - Idiopathic sleep related nonobstructive alveolar hypoventilation Plan: ABOVE (4) Exercise hypoxemia: Comment: 6 minutes walk test on last visit showed that she did desaturate on room air and needed O2 2 L/minute for walking. She was provided with a portable unit , B-Cylinder , but she insisted on returning it as she does not want to uses cylinder. She wants to use In[employer] unit. I told her that when she comes next time we will have to do 6 minutes walk again. Code(s): R09.02 - Hypoxemia Plan: As above (5) Pulmonary nodule: Comment: Patient has multiple small pulmonary nodules unchanged from before Two ground-glass nodular densities in lower lobes are somewhat increased from before. Need to be followed up closely. She is being followed by, our Lung screening team. Last CT scan on 11/19/22--- IMPRESSION: New groundglass attenuation left lower lobe nodules, largest measuring 1.3 x 2.7 cm. emphysema. ASSESSMENT: Lung-RADS category 4A: Suspicious . CT scan on 02/17 done, there was no further change. But GG densities were still persisting. Next CT scan needed in 6 months ( JUL 2023 ) Code(s): R91.1 - Solitary pulmonary nodule Plan: ABOVE Coding Level of Care Code Est Pt Level 4 (16962) Diagnoses COPD (chronic obstructive pulmonary disease) J44.9 Smoker F17.200 Nocturnal hypoxemia G47.34 Exercise hypoxemia R09.02 Pulmonary nodule R91.1
== END 2023-05-16 10:21 | disposition home or self-care (01) ==
PROVIDERS: PCP Internal Medicine; Visit Provider Internal Medicine
DX: J44.9 Chronic obstructive pulmonary disease, unspecified (principal); F17.200 Nicotine dependence, unspecified, uncomplicated; G47.34 Idiopathic sleep related nonobstructive alveolar hypoventilation; R09.02 Hypoxemia; R91.1 Solitary pulmonary nodule
CPT/HCPCS: 99214

== ENCOUNTER → 2023-05-16 09:22 | Outpatient (BNVA) | payer OTHER, SELFPAY | PROVIDERS: PCP Internal Medicine; Visit Provider Internal Medicine | DX: J44.9 Chronic obstructive pulmonary disease, unspecified (principal); G47.34 Idiopathic sleep related nonobstructive alveolar hypoventilation; R09.02 Hypoxemia; R91.1 Solitary pulmonary nodule; F17.210 Nicotine dependence, cigarettes, uncomplicated | CPT/HCPCS: 99212 ==

== ENCOUNTER 2023-05-23 07:06 | Outpatient (REF) | payer OTHER, SELFPAY ==
[2023-05-23 11:45] LABS: Estimated Average Glucose 157 mg/dL; Hemoglobin A1c % 7.1 % (<6.0)
[2023-05-23 11:49] LABS: Appearance Urine Cloudy; Color Urine Yellow; Glucose Urine UA >=1000 mg/dL (Negative); Leukocyte Esterase Urine Negative (Negative); Nitrite Urine Negative (Negative); PH 5.5 (5.0-9.0); Specific Gravity - Urine >= 1.030 (1.005-1.025); UMIC TRIGGER UACC YES; Urine Blood Negative (Negative); Urine Ketones Negative (Negative); Urine Protein Negative (Neg-Trace)
[2023-05-23 11:53] LABS: Bacteria Urine None Seen (None Seen); Hyaline Casts Urine 0-2 /LPF (0-2); RBC Urine 0-2 /HPF (0-2); Squamous Epithelial Cell Urine 0-2 /HPF (0-2); WBC Urine 0-5 /HPF (0-5)
[2023-05-23 12:03] LABS: Alanine Aminotransferase 17 U/L (0-31); Albumin Level 4.2 g/dL (3.5-5.0); Alkaline Phosphatase 40 U/L (39-117); Anion Gap 10 (12-20); Aspartate Amino Transferase 20 U/L (5-31); Bilirubin Total 0.4 mg/dL (0.0-1.0); Blood Urea Nitrogen 12 mg/dL (9-16); Calcium 9.4 mg/dL (8.4-10.2); Carbon Dioxide 31 mmol/L (22-29); Chloride 106 mmol/L (96-108); Cholesterol 149 mg/dL (<200); Estimated Glomerular Filt Rate > 60; Glucose Random 119 mg/dL (60-115); HDL Cholesterol 59 mg/dL (>40); LDL Cholesterol Calculated 70 mg/dL (<100); Potassium 4.3 mmol/L (3.3-5.1); Sodium 143 mmol/L (135-145); Total Protein 6.8 g/dL (6.5-8.0); Triglycerides 100 mg/dL (<150)
[2023-05-23 12:04] LABS: Free T4 (Free Thyroxine) 0.95 ng/dL (0.71-1.85); Thyroid Stimulating Hormone 1.93 uIU/mL (0.32-4.0)
[2023-05-23 12:08] LABS: Free T4 (Free Thyroxine) 0.92 ng/dL (0.71-1.85); Thyroid Stimulating Hormone 2.02 uIU/mL (0.32-4.0)
[2023-05-23 12:18] LABS: Creatinine Urine 104.35 mg/dL
[2023-05-23 12:20] LABS: Creatinine Urine 102.46 mg/dL; Microalbum/Creatinine Ratio Ur 8.7 ug/mg cr (<30)
[2023-05-24 07:53] LABS: LDL Cholesterol Direct 67 mg/dL (<100)
== END 2023-05-23 07:07 | disposition home or self-care (01) ==
LOC: HO.HMGCLDS 07:06
PROVIDERS: Absent Provider Internal Medicine; PCP Internal Medicine; Visit Provider Internal Medicine
DX: E04.2 Nontoxic multinodular goiter (principal); E11.65 Type 2 diabetes mellitus with hyperglycemia
CPT/HCPCS: 36415; 80053; 80061; 81001; 82043; 82570; 83036; 83721; 84439; 84443

== ENCOUNTER 2023-05-26 08:43 | Outpatient (AMB) | payer OTHER, SELFPAY ==
[2023-05-26 08:46] VITALS: BP 118/56; PULSE 102; BMI 32.8
--- NOTE | 2023-05-26 08:46 | A.OFFVIS_ITS ---
Intake Vital Signs 05/26/23 08:46 Height 5 ft 5 in Weight 197 lb 1.492 oz BMI 32.8 BP 118/56 L Blood Pressure Location Lt brachial Position Sitting Pulse 102 H Pulse Source Pulse Oximeter Intake Visit Reasons: F/Up DM Intake Note: Patient presents today to follow up on DMT2. Previous patient of Dr. Davis. Last Diabetic Eye exam: 03/2023 Last Podiatry Visit:None Random Glucose: 193 mg/dl HgA1C:7.1% 05/23/23 Processing Supervisor Required: No Accompanied by: Self / Same As Patient Allergies ziprasidone [From Geodon] Allergy (Mild, Verified 05/26/23 08:51) RASH-PALPITATIONS aspirin [ASPIRIN] Allergy (Unknown, Verified 05/26/23 08:51) GI bleed, stomach upset azithromycin Allergy (Unknown, Verified 05/26/23 08:51) facial swelling cephalexin [From KEFLEX] Allergy (Unknown, Verified 05/26/23 08:51) can't remember ibuprofen [IBUPROFEN] Allergy (Unknown, Verified 05/26/23 08:51) UNKNOWN, stomach upset lisinopril Allergy (Unknown, Verified 05/26/23 08:51) cough metformin [METFORMIN] Allergy (Unknown, Verified 05/26/23 08:51) NAUSEA & VOMITING, GI upset valsartan [From Diovan] Allergy (Unknown, Verified 05/26/23 08:51) hives tiotropium [From Spiriva with HandiHaler] Adverse Reaction (Intermediate, Verified 05/26/23 08:51) Unknown NSAIDS (Non-Steroidal Anti-Inflamma [NSAIDS (NON-STEROIDAL ANTI-INFLAMMA] Adverse Reaction (Unknown, Verified 05/26/23 08:51) HX OF GI BLEED tramadol [Ultram] Adverse Reaction (Unknown, Verified 05/26/23 08:51) GI upset Medication List - Last Reconciled 05/26/23 by Masoud Sanders MD albuterol sulfate 90 mcg/actuation 2 puffs inhalation Q4H PRN 60 days aripiprazole 20 mg PO DAILY atorvastatin 40 mg PO DAILY brimonidine 0.1% (Alphagan P) 1 drp ophthalmic (eye) BID cholecalciferol (vitamin D3) 50 mcg PO BEDTIME clonazepam 1 tab PO BID PRN cyanocobalamin (vitamin B-12) (Vitamin B-12) 500 mcg PO DAILY 90 days docusate sodium 100 mg PO BID empagliflozin (Jardiance) 25 mg PO DAILY esomeprazole magnesium 40 mg PO DAILY@0630 fenofibrate 160 mg PO DAILY fexofenadine 180 mg PO DAILY fluticasone propion-salmeterol 115-21 mcg/actuation (Advair HFA) 2 puffs inhalation Q12H gabapentin 600 mg PO TID insulin aspart U-100 (Novolog FlexPen U-100 Insulin aspart) Novolog sliding scale 3 times daily (200-250: 4 units, 251-300: 6 units, 301 - 350: 8 units, >351: 10 units) insulin degludec (Tresiba FlexTouch U-100 insulin) 42 units (0.42 mL) subcut DAILY latanoprost 0.005% 1 drp ophthalmic (eye) BEDTIME levalbuterol tartrate 45 mcg/actuation 2 puffs inhalation Q4-6H PRN levothyroxine 25 mcg PO DAILY@0600 liraglutide (Victoza 3-Jeanmarie) 1.8 mg (0.3 mL) subcut DAILY 90 days melatonin 9 mg PO BEDTIME [new lift chair As directed] pen needle, diabetic (Comfort EZ Pen Saunemin) As directed injects 3 X/day pioglitazone 15 mg PO BEDTIME quetiapine 50 mg PO BID PRN quetiapine 75 mg PO BEDTIME sennosides (senna) 17.2 mg (2 x 8.6 mg) PO BEDTIME HPI HPI Comments History of Present Illness Details 72 YO F with extensive PMHx who is seen in F/U for T2DM, NTMNG and Hypercalcemia. . Patient last saw Dr. Davis on 11/03/2022 1) T2DM: Initially diagnosed with T2DM in 2008 during a routine screening exam. Was initially started on treatment with Metformin, but she did not tolerate this due to GI distress. She began using Insulin in 2018. Current regimen Actos 15 mg PO daily, Jardiance 25 mg PO daily, Victoza 1.8 mg daily, Tresiba 42 units qAM and Novolog sliding scale 3 times daily (200- 250: 4 units, 251-300: 6 units, 301 - 350: 8 units, >351: 10 units). She has tried and failed Glimepiride and Onglyza. She is intolerant to Metformin due to GI side effects. She admits to not using her Novolog with lunch daily. Unfortunately, the patient did not bring her meter or sensor follow-up appointment Rare hypoglycemia since her last adjustment. Sugars are consistently high normal to slightly elevated. Treats lows with orange juice, does check sugar after to make sure its increasing. Family history of T2DM in her Mother and Brother. Has eyes checked yearly, has retinopathy. Last eye exam 03/2023. Has neuropathy. No nephropathy, not on JAZMIN/ARB. UAC 10 10/26/2022. Lisinopril was stopped due to cough, and no JAZMIN/ARB was resumed due to hypotension. She is following with Cardiology for this. Has HLD, last 78 10/26/2022. On Atorvastatin 40 mg PO qHS. Has no history of CAD. Has had Diabetes Education. 2) NTMNG: Had thyroid US which revealed large 2.0 cm R superior nodule. Denies any compressive symptoms. Denies any history of head or neck irradiation. No history of thyroid cancer. Underwent FNA of this nodule 05/10/19 with Benign ([place] Category II) cytology. US Thyroid: 02/18/2022 Right Thyroid Lobe: 5.2 x 2.4 x 2.4 cm, volume 15.7 mL. Previously 6.0 x 2.4 x 2.1 cm, volume 15.8 mL. Parenchyma: The gland echotexture is homogeneous. Thyroid vascularity is normal. Left Thyroid Lobe: 3.9 x 1.5 x 1.6 cm, volume 4.9 mL. Previously 4.3 x 1.6 x 1.3 cm, volume 4.7 mL. Parenchyma: The gland echotexture is homogeneous. Thyroid vascularity is normal. Isthmus: 0.5 cm in maximum AP dimension. Previously 0.6 cm. Estimated total number of nodules greater than or equal to 1 cm: 2. Color Depositing Machine Tender nodules are described as follows: 1.? Location: Right superior. ?? ? Size: 2.3 x 2.0 x 1.7 cm, volume 4.1 mL. ?? ? Previously: 1.9 x 1.9 x 1.9 cm, volume 3.6 mL. ?? ? Nodule characteristics: ?? ? Composition: Solid (2). ?? ? Echogenicity: Isoechoic (1). ?? ? Shape: Taller than wide (3). ?? ? Margins: Smooth (0). ?? ? Echogenic Foci: None (0). ? ACR TI-RADS total points: 6 Previous: 6 ?? ? ACR TI-RADS category: 4 Previous: 4 ? Significant change in size (>/= 20% in 2 dimensions and minimal increase of 2 mm or 50% or greater increase in volume): ?? ? Change in features: ?? ? Change in ACR TI-RADS risk category: 2.? Location: Right superior/mid. ?? ? Size: 1.0 x 0.6 x 0.9 cm, volume 0.3 mL. ?? ? Previously: 1.1 x 0.7 x 1.1 cm, volume 0.4 mL. ?? ? Nodule characteristics: ?? ? Composition: Solid/almost completely solid (2). ?? ? Echogenicity: Hyperechoic (1). ?? ? Shape: Not taller than wide (0). ?? ? Margins: Ill-defined (0). ?? ? Echogenic Foci: None (0). ? ACR TI-RADS total points: 3 Previous: 3 ?? ? ACR TI-RADS category: 3 Previous: 3 ? Significant change in size (>/= 20% in 2 dimensions and minimal increase of 2 mm or 50% or greater increase in volume): ?? ? Change in features: ?? ? Change in ACR TI-RADS risk category: 3.? Location: Right inferior. ?? ? Size: 0.5 x 0.4 x 0.6 cm, volume 0.07 mL. ?? ? Previously: 0.6 x 0.4 x 0.7 cm, volume 0.08 mL. ?? ? Nodule characteristics: ?? ? Composition: Mixed cystic and solid (1). ?? ? Echogenicity: Cannot be determined (1). ?? ? Shape: Not taller than wide (0). ?? ? Margins: Smooth (0). ?? ? Echogenic Foci: None (0).? ACR TI-RADS total points: 2 Previous: 2 ?? ? ACR TI-RADS category: 2 Previous: 2 ? Significant change in size (>/= 20% in 2 dimensions and minimal increase of 2 mm or 50% or greater increase in volume): ?? ? Change in features: ?? ? Change in ACR TI-RADS risk category: 4.? Location: Left superior. ?? ? Size: 0.4 x 0.2 x 0.3 cm, volume 0.02 mL. ?? ? Previously: 0.4 x 0.2 x 0.4 cm, volume 0.02 mL. ?? ? Nodule characteristics: ?? ? Composition: Mixed cystic and solid (1). ?? ? Echogenicity: Cannot be determined (1). ?? ? Shape: Not taller than wide (0). ?? ? Margins: Smooth (0). ?? ? Echogenic Foci: None (0).? ACR TI-RADS total points: 2 Previous: 2 ?? ? ACR TI-RADS category: 2 Previous: 2 ? Significant change in size (>/= 20% in 2 dimensions and minimal increase of 2 mm or 50% or greater increase in volume): ?? ? Change in features: ?? ? Change in ACR TI-RADS risk category: Small cystic area superior to the isthmus appears decreased in size measuring 5 x 3 x 4 mm compared to 9 x 5 x 5 mm on most recent exam February 2021. NODES: No lymphadenopathy is seen in the tissue surrounding the thyroid gland. Labs: Laboratory Tests 10/26/22 10/26/22 10/26/22 07:09 07:09 07:09 Sodium 142 Potassium 4.4 Creatinine 0.79 Estimated GFR > 60 Hemoglobin A1c % 7.8 LDL Cholesterol, C alc 78 TSH 2.33 Free T4 0.99 Microalb/Creat Rat io 10.0 [facility] Medical History T2DM (type 2 diabetes mellitus) (~2008) Smoker Exercise hypoxemia Nicotine dependence, cigarettes, uncomplicated Dermatitis of vulva Acute respiratory failure with hypoxia Acute exacerbation of chronic obstructive pulmonary disease (COPD) Recurrent major depression-severe Lower extremity pain Sialoadenitis Jaw pain العلي (dyspnea on exertion) Chest pain Osteopenia (~2015) Pulmonary nodule Constipation Nocturnal hypoxemia COPD (chronic obstructive pulmonary disease) Spinal stenosis Depression Vitamin D deficiency Multinodular thyroid HLD (hyperlipidemia) Surgical History S/P thyroid biopsy History of lithotripsy History of cardiac catheterization Hx of colonoscopy Hx of arthroscopy of left knee Hx of spinal fusion Hx of cholecystectomy Family History Father No problems noted. Mother Cancer Diabetes Social History Household Members: None Housing: Apartment Do you presently have visiting nurse or other home services: Yes Alcohol intake: former Patient Tobacco Use Status: Current everyday Tobacco user Smoking Start Date: 04/01/1964 Tobacco use type: Cigarette Cigarette Packs Per Day: 1.5 Cigarettes Per Day: 39 e-Cigarette/Vaping Use: Former Use Second Hand Smoke Exposure: Yes Advance Directives Date on File: 04/02/21 service: No Current occupational status: retired Sexual orientation: Straight/Heterosexual Cognitive needs: No Hearing needs: No Vision needs: Yes Female Reproductive History Menstrual Age of Menarche: 12 Physical Exam Vital Signs: Last Vital Signs Pulse 102 H 05/26/23 08:46 BP 118/56 L 05/26/23 08:46 BMI result Body Mass Index 32.8 Absence of Cushingoid features. Absence of acromegalic features. Neck exam reveals nl size thyroid about 15 gms. No thyroid nodules palpable. No carotid bruits present. Lungs diffuse wheezes expiratory. Heart S1 S2, Reg R/R. No M/R/ G. Skin exam reveals absence of vitiligo or acanthosis nigricans. Abdominal exam reveals Soft NT/ND with NA BS. No organomegaly present. Neck Other: . Extrem Other: Visual exam of foot performed. No ulcerations or open lesions. No onchomycosis, no callouses.Pulses 2 + distally Sensation intact to monofilament exam. Vibratory sensation sensed is intact with 128 Hz tuning fork Assessment & Plan Assessment & Plan (1) Type 2 diabetes mellitus with hyperglycemia: Code(s): E11.65 - Type 2 diabetes mellitus with hyperglycemia Plan: This 72-year-old white female with a history of type 2 diabetes being treated with Actos, Jardiance, Victoza and basal-bolus insulin with excellent glycemic control and known microvascular complications namely retinopathy and neuropathy. Plan is to continue the current regimen. At this point, in terms of the diabetes, patient can be referred back to her primary care provider and back to endocrinology should her HbA1c deteriorate (2) Multinodular thyroid: Comment: ([facility]) Code(s): E04.2 - Nontoxic multinodular goiter Plan: History of multinodular goiter status post FNA of right upper midpole nodule in 2019 with benign cytology. Recent ultrasound shows enlargement of the nodule. She appears to be clinically biochemically euthyroid. She is scheduled for an FNA tomorrow at [facility] Plan is proceed with the FNA tomorrow [facility] the right nodule. Returned after Coding Level of Care Code Est Pt Level 4 (00810) Diagnoses Type 2 diabetes mellitus with hyperglycemia E11.65 Multinodular thyroid E04.2
[2023-05-26 09:01] LABS: Glucose, Whole Blood 193 mg/dL (60-115)
== END 2023-05-26 09:25 | disposition home or self-care (01) ==
PROVIDERS: PCP Internal Medicine; Visit Provider Internal Medicine Endocrinology, Diabetes & Metabolism
DX: E11.65 Type 2 diabetes mellitus with hyperglycemia (principal); E04.2 Nontoxic multinodular goiter
CPT/HCPCS: 99214

== ENCOUNTER → 2023-05-26 08:43 | Outpatient (BNVA) | payer OTHER, SELFPAY | PROVIDERS: PCP Internal Medicine; Visit Provider Internal Medicine Endocrinology, Diabetes & Metabolism | DX: E11.65 Type 2 diabetes mellitus with hyperglycemia (principal); E04.2 Nontoxic multinodular goiter | CPT/HCPCS: 82947; 99212 ==

== ENCOUNTER 2023-07-13 09:44 | Outpatient (AMB) | payer OTHER, SELFPAY ==
[2023-07-13 09:49] VITALS: BP 138/80; PULSE 98; O2SAT 92; BMI 32.8
--- NOTE | 2023-07-13 09:49 | MHC.PC.OV ---
Vital Signs 07/13/23 09:49 Height 5 ft 5 in Weight 197 lb BMI 32.8 BP 138/80 Blood Pressure Location Lt brachial Position Sitting Pulse 98 Pulse Source Pulse Oximeter Pulse Oximetry (%) 92 Oxygen Delivery Method Room Air Intake Visit Reasons: 3mth f/u Allergies ziprasidone [From Geodon] Allergy (Mild, Verified 07/13/23 09:50) RASH-PALPITATIONS aspirin [ASPIRIN] Allergy (Unknown, Verified 07/13/23 09:50) GI bleed, stomach upset azithromycin Allergy (Unknown, Verified 07/13/23 09:50) facial swelling cephalexin [From KEFLEX] Allergy (Unknown, Verified 07/13/23 09:50) can't remember ibuprofen [IBUPROFEN] Allergy (Unknown, Verified 07/13/23 09:50) UNKNOWN, stomach upset lisinopril Allergy (Unknown, Verified 07/13/23 09:50) cough metformin [METFORMIN] Allergy (Unknown, Verified 07/13/23 09:50) NAUSEA & VOMITING, GI upset valsartan [From Diovan] Allergy (Unknown, Verified 07/13/23 09:50) hives tiotropium [From Spiriva with HandiHaler] Adverse Reaction (Intermediate, Verified 07/13/23 09:50) Unknown NSAIDS (Non-Steroidal Anti-Inflamma [NSAIDS (NON-STEROIDAL ANTI-INFLAMMA] Adverse Reaction (Unknown, Verified 07/13/23 09:50) HX OF GI BLEED tramadol [Ultram] Adverse Reaction (Unknown, Verified 07/13/23 09:50) GI upset Medication List - Last Reconciled 07/13/23 by Chiquis Grajeda MD albuterol sulfate 90 mcg/actuation 2 puffs inhalation Q4H PRN 60 days aripiprazole 20 mg PO DAILY atorvastatin 40 mg PO DAILY brimonidine 0.1% (Alphagan P) 1 drp ophthalmic (eye) BID cholecalciferol (vitamin D3) 50 mcg PO BEDTIME clonazepam 1 tab PO BID PRN cyanocobalamin (vitamin B-12) (Vitamin B-12) 500 mcg PO DAILY 90 days docusate sodium 100 mg PO BID empagliflozin (Jardiance) 25 mg PO DAILY esomeprazole magnesium 40 mg PO DAILY@0630 fenofibrate 160 mg PO DAILY fexofenadine 180 mg PO DAILY fluticasone propion-salmeterol 115-21 mcg/actuation (Advair HFA) 2 puffs inhalation Q12H gabapentin 600 mg PO TID 30 days insulin aspart U-100 (Novolog FlexPen U-100 Insulin aspart) Novolog sliding scale 3 times daily (200-250: 4 units, 251-300: 6 units, 301 - 350: 8 units, >351: 10 units) insulin degludec (Tresiba FlexTouch U-100 insulin) 40 units (0.4 mL) subcut DAILY 30 days latanoprost 0.005% 1 drp ophthalmic (eye) BEDTIME levalbuterol tartrate 45 mcg/actuation 2 puffs inhalation Q4-6H PRN levothyroxine 25 mcg PO DAILY@0600 liraglutide (Victoza 3-Jeanmarie) 1.8 mg (0.3 mL) subcut DAILY 90 days melatonin 9 mg PO BEDTIME [new lift chair As directed] pen needle, diabetic (Comfort EZ Pen Anna) As directed injects 3 X/day pioglitazone 15 mg PO BEDTIME quetiapine 50 mg PO BID PRN quetiapine 75 mg PO BEDTIME sennosides (senna) 17.2 mg (2 x 8.6 mg) PO BEDTIME Tobacco use date assessed: 07/13/23 Fall risk assessment: No Falls in past year Last assessed Fall Risk: 07/13/23 Dental Screening Dental Screen Date: 07/13/23 Did you have a dental visit in the last 12 months?: No Did you have a dental problem in the last 6 months where you did not have access to dental care?: No Was dental information given to patient?: No HPI 3mth f/u HPI Details 72-year-old obese female smoker with controlled diabetes mellitus COPD hypothyroidism hypercholesterolemia GERD and major depression coming in for follow-up. Last seen in February 2023. Bone density is due declined mammogram declined colonoscopy. Patient did follow-up with endocrinology 05/26/2023 could not tolerate metformin on insulin 2018 Actos 15, Jardiance 25, Victoza 1.8, Tresiba 42 and NovoLog for the thyroid biopsy April 2019 benign at that time patient was seen patient was supposed to have another biopsy of the thyroid. Patient also meets pulmonary for COPD patient still smoking on Advair patient on the lung cancer screening program July [address] scan. biopsy thyroid not done and was advised to ff up 2023. Dr. Massey macular deg bilateral, glaucoma. hypoglycemia- advised to decrease to 40 u [facility] Medical History (Updated 07/13/23 @ 10:14 by Chiquis Grajeda MD) Smoker Nicotine dependence, cigarettes, uncomplicated Vulvar ulcer Jaw pain Sinus tachycardia Menopausal state Artificial menopause state T2DM (type 2 diabetes mellitus) (~2008) Dermatitis of vulva Acute respiratory failure with hypoxia Acute exacerbation of chronic obstructive pulmonary disease (COPD) Recurrent major depression-severe Lower extremity pain Sialoadenitis العلي (dyspnea on exertion) Chest pain Osteopenia (~2015) Pulmonary nodule Constipation Nocturnal hypoxemia COPD (chronic obstructive pulmonary disease) Spinal stenosis Depression Vitamin D deficiency Multinodular thyroid HLD (hyperlipidemia) Surgical History S/P thyroid biopsy History of lithotripsy History of cardiac catheterization Hx of colonoscopy Hx of arthroscopy of left knee Hx of spinal fusion Hx of cholecystectomy Family History Father No problems noted. Mother Cancer Diabetes Social History Household Members: None Housing: Apartment Do you presently have visiting nurse or other home services: Yes Alcohol intake: former Patient Tobacco Use Status: Current everyday Tobacco user Smoking Start Date: 04/01/1964 Tobacco use type: Cigarette Cigarette Packs Per Day: 1.5 Cigarettes Per Day: 39 e-Cigarette/Vaping Use: Former Use Second Hand Smoke Exposure: Yes Advance Directives Date on File: 04/02/21 service: No Current occupational status: retired Sexual orientation: Straight/Heterosexual Cognitive needs: No Hearing needs: No Vision needs: Yes Female Reproductive History Menstrual Age of Menarche: 12 Questionnaire PHQ-9 Over the last 2 weeks, how often have you been bothered by any of the following problems? 1. Little interest or pleasure in doing things: not at all 2. Feeling down, depressed, or hopeless: not at all 3. Trouble falling or staying asleep, or sleeping too much: not at all 4. Feeling tired or having little energy: not at all 5. Poor appetite or overeating: not at all 6. Feeling bad about yourself - or that you are a failure or have let yourself or your family down: not at all 7. Trouble concentrating on things, such as reading the newspaper or watching television: not at all 8. Moving or speaking so slowly that other people could have noticed. Or the opposite - being so fidgety or restless that you have been moving around a lot more than usual: not at all 9. Thoughts that you would be better off or of hurting yourself in some way: not at all Total score: 0 Depression Screening Interpretation: Negative Depression Screening Done: Yes Source: Developed by Drs. Masoud Gomez, Desi Mabry, George Cates and colleagues, with an educational zoila from [employer]. Thrive Questionnaire Date Thrive assessed: 07/13/23 I am a: Patient What is your living situation today?: I have a steady place to live Within the past 12 months, did the food you bought not last and you didn't have the money to get more?: Never true Within the past 12 months, did you worry whether your food would run out before you got money to buy more?: Never true Do you have trouble paying for medicines?: No Do you have trouble getting transportation to medical appointments?: No Do you have trouble paying your heating and electricity bill?: No Do you have trouble taking care of your child, family member or friend?: No Do you have trouble with day-to-day activities such as bathing, preparing meals, shopping, managing finances, etc.?: No Are you currently unemployed and looking for a job?: No Are you interested in more education?: No AUDIT C Alcohol Use Questionnaire (AUDIT-C) 1. How often do you have a drink containing alcohol?: Never 3. How often do you have six or more drinks on one occasion?: Never Total Score: 0 GABRIELE-7 AMB Questionnaire GABRIELE-7 Date GABRIELE - 7 assessed: 07/13/23 Feeling nervous, anxious, or on edge: 0 = Not at all Not being able to stop or control worryin = Not at all Worrying too much about different things: 0 = Not at all Trouble relaxin = Not at all Being so restless that it is hard to sit still: 0 = Not at all Becoming easily annoyed or irritable: 0 = Not at all Feeling afraid as if something awful might happen: 0 = Not at all Total GABRIELE-7 score (0-4 normal; 5-9 mild; 10-14 moderate; 15-21 severe): 0 Source: Developed by Drs. Masoud Gomez, Desi Mabry, George Cates and colleagues, with an educational zoila from [employer]. Physical exam (Primary Care) Vital Signs: Last Vital Signs Pulse 98 07/13/23 09:49 BP 138/80 07/13/23 09:49 Pulse Ox 92 07/13/23 09:49 Oxygen Delivery Method Room Air 07/13/23 09:49 BMI result Body Mass Index 32.8 Tobacco/Smoking Status: Tobacco use Status Tobacco use date assessed 07/13/23 07/13/23 09:52 Patient Tobacco Use Status Current everyday Tobacco 07/13/23 09:52 Tobacco use type Cigarette 07/13/23 09:52 e-Cigarette/Vaping Use Former Use 07/13/23 09:52 PHQ-9: PHQ-9 Score PHQ-9: Total score 0 07/13/23 09:52 Depression Screening Interpretation: Negative Thrive Assessment: Date of Thrive Assessment Date Thrive assessed 07/13/23 07/13/23 09:52 Const General: alert; No acute distress Eyes Conjunctivae: conjunctivae normal Resp Auscultation: clear to auscultation bilaterally Cardio Rate: regular rate Rhythm: regular rhythm GI Inspection: Yes normal to inspection Extrem General: Yes normal to inspection and No edema Assessment and Plan Assessment & Plan (1) Type 2 diabetes mellitus with hyperglycemia: Code(s): E11.65 - Type 2 diabetes mellitus with hyperglycemia Plan: Decrease the amount of carbohydrate intake, pasta, bread, rice and potatoes are all sugar and that is aside from all the sweet stuff, remember that fruits are good but they are Sweet also. Hemoglobin A1c goal of less than 7.April A1c 7.1 patient on Jardiance NovoLog Tresiba Victoza pioglitazone (2) Tobacco abuse: Comment: LONG-TIME SMOKER, HAS NOT BEEN ABLE TO QUIT, RECENTLY ACTUALLY INCREASE TO 1 FULL PACK OF CIGARETTES A DAY. DISCUSSED WITH HER THAT SHE SHOULD TRY TO CUT DOWN THE NUMBER OF CIGARETTES AT LEAST. RISKS OF CONTINUED SMOKING OR EXPLAINED. Code(s): Z72.0 - Tobacco use Plan: Strongly advised to stop patient sees Pulmonary also. (3) COPD (chronic obstructive pulmonary disease): Comment: Long-time chronic obstructive pulmonary disease, moderately severe,, controlled and stable. [place] : Advair HFA 115-21 2 puffs b.i.d. Levalbuterol -45 2 puffs Q 4-6 hours p.r.n.. *She has nebulizer at home, prescribed ipratropium-albuterol solution to be used in the nebulizer Q 6 hours p.r.n. at home Code(s): J44.9 - Chronic obstructive pulmonary disease, unspecified Plan: Continue with inhaler and advised strongly to stop smoking (4) Pulmonary nodule: Comment: Patient has multiple small pulmonary nodules unchanged from before Two ground-glass nodular densities in lower lobes are somewhat increased from before. Need to be followed up closely. She is being followed by, our Lung screening team. Last CT scan on 11/19/22--- IMPRESSION: New groundglass attenuation left lower lobe nodules, largest measuring 1.3 x 2.7 cm. emphysema. ASSESSMENT: Lung-RADS category 4A: Suspicious . CT scan on 02/17 done, there was no further change. But GG densities were still persisting. Next CT scan needed in 6 months ( JUL 2023 ) Code(s): R91.1 - Solitary pulmonary nodule Plan: CT scan is due July 2023 for suspicious pulmonary nodule (5) Multinodular thyroid: Comment: (NTMNG) Code(s): E04.2 - Nontoxic multinodular goiter Plan: Patient is seeing endocrinology and had a planned biopsy last year (6) Hypothyroid: Code(s): E03.9 - Hypothyroidism, unspecified Plan: Continue with thyroid medication (7) HLD (hyperlipidemia): Code(s): E78.5 - Hyperlipidemia, unspecified Qualifiers: Hyperlipidemia type: unspecified Qualified Code(s): E78.5 - Hyperlipidemia, unspecified Plan: Avoid fried foods, chicken skin, eggs, butter margarine, pastries and meat. Be it pork or beef they have a lot of cholesterol LDL goal of less than 100 and triglyceride of less than 150 (8) GERD (gastroesophageal reflux disease): Code(s): K21.9 - Gastro-esophageal reflux disease without esophagitis Plan: Avoid the foods that causes that usually spicy foods, tomato products, juices, coffee, soda and foods that your sensitive to. After eating do not lie down, allow 3-4 hours before in lie down. And keep the head of bed above 30 degrees to avoid the acid from going up. (9) Recurrent major depression-severe: Code(s): F33.2 - Major depressive disorder, recurrent severe without psychotic features Plan: Continue with counseling and therapy Medications: Changed From insulin degludec (Tresiba FlexTouch U-100 insulin) 45 units (0.45 mL) subcut DAILY 30 days 13.5 mL 0RF To insulin degludec (Tresiba FlexTouch U-100 insulin) 40 units (0.4 mL) subcut DAILY 30 days 12 mL 0RF Coding Level of Care Code Est Pt Level 4 (89222) Diagnoses Type 2 diabetes mellitus with hyperglycemia E11.65 Tobacco abuse Z72.0 COPD (chronic obstructive pulmonary disease) J44.9 Pulmonary nodule R91.1 Multinodular thyroid E04.2 Hypothyroid E03.9 Hyperlipidemia, unspecified hyperlipidemia type E78.5 Hyperlipidemia type: unspecified GERD (gastroesophageal reflux disease) K21.9 Recurrent major depression-severe F33.2
== END 2023-07-13 10:28 | disposition home or self-care (01) ==
PROVIDERS: PCP Internal Medicine; Visit Provider Internal Medicine
DX: E11.65 Type 2 diabetes mellitus with hyperglycemia (principal); J44.9 Chronic obstructive pulmonary disease, unspecified; F33.2 Major depressive disorder, recurrent severe without psychotic features; Z72.0 Tobacco use; R91.1 Solitary pulmonary nodule; E04.2 Nontoxic multinodular goiter; E03.9 Hypothyroidism, unspecified; E78.5 Hyperlipidemia, unspecified; K21.9 Gastro-esophageal reflux disease without esophagitis
CPT/HCPCS: 99214

== ENCOUNTER 2023-07-20 17:18 | Emergency (ER) | payer OTHER, SELFPAY ==
--- NOTE | ~2023-07-20 | XR_ITS ---
Examination: Skull, chest and abdomen. Clinical indications: Low back pain. Previous lumbar surgery. Pre-MRI. TECHNIQUE: Skull AP view. Chest AP view. Abdomen and pelvis 1 view. FINDINGS: Skull: On AP view of the skull there is no radiopaque foreign body seen in the orbits or the skull. Visualized paranasal sinuses and mastoid air cells are well-aerated. CHEST: The lungs are well-expanded and clear. Heart size and pulmonary vascularity is normal. No gross bony abnormality seen. Abdomen supine: There are 2 disc cages at the L5-S1 disc level with posterior bilateral screws likely 4 posterior stabilization and/or facet joint effusion. There are radiopaque elba in the right upper quadrant from previous cholecystectomy. There is scattered gas seen in small bowel loops in left midabdomen but no signs for distention. Surgical elba are seen in left pelvis from previous intervention. No aggressive lytic or sclerotic process. No organomegaly. XR/XR pre mri screening IMPRESSION: 1. No radiopaque foreign body seen in the orbits or the skull. 2. Unremarkable chest exam. 3. Postsurgical changes with disc cages at L5-S1 disc level with posterior bilateral screws likely for posterior stabilization and/or facet joint fusion.
[2023-07-20 17:28] VITALS: BP 118/64; PULSE 94; O2SAT 95
[2023-07-20 17:47] VITALS: PULSE 82; RESP 16; TEMP 36.9; O2SAT 95; BMI 38.4
[2023-07-20 17:53] VITALS: BP 128/41
[2023-07-20 18:08] VITALS: BP 113/45; PULSE 88; RESP 16; TEMP 36.8; O2SAT 97
[2023-07-20 19:07] LABS: Glucose, Whole Blood 96 mg/dL (60-115)
--- NOTE | 2023-07-20 19:11 | ECG_ITS ---
Test Reason : PAIN Blood Pressure : / mmHG Vent. Rate : 081 BPM Atrial Rate : 081 BPM P-R Int : 188 ms QRS Dur : 088 ms QT Int : 374 ms P-R-T Axes : 059 066 060 degrees QTc Int : 434 ms Normal sinus rhythm Normal ECG When compared with ECG of 03-OCT-2022 00:41, No significant change was found Referred By: Carlos Albert Electronically Signed By:Axel Spear
--- NOTE | 2023-07-20 19:12 | ED.BACK ---
HPI - Back Pain/Injury General Chief Complaint: Back Pain/Injury Stated Complaint: BACK PAIN NUMBNESS Time Seen by Provider: 07/20/23 18:41 Source: patient, RN notes reviewed and old records reviewed Mode of arrival: EMS Limitations: no limitations History of Present Illness HPI Narrative: 72 year old female with T2DM, COPD, HLD, spinal stenosis, s/p laminectomy in 2020 presents for evaluation of lower back pain that began yesterday. She states two days ago she was bending and stretching and feels as though she might have overdone it . She has tried to alleviate her severe pain with ice, heat, & Tylenol without relief. States that earlier she was able to urinate, however notes that she voided less than normal for her. On my evaluation, she describes difficulty urinating. Denies incontinence or saddle anesthesias. Describes low back pain that is concentrated in the right side, radiates down the anterior thigh to foot. Notes numbness of the anterior thigh. Denies fever and chills. MD elicited complaint: back pain Related Data Home Medications Medication Instructions Recorded Confirmed clonazepam 0.5 mg tablet 1 tab PO BID PRN Anxiety 07/28/22 07/13/23 quetiapine 25 mg tablet 50 mg PO BID PRN Anxiety 07/28/22 07/13/23 quetiapine 50 mg tablet 75 mg PO BEDTIME 07/28/22 07/13/23 latanoprost 0.005 % eye drops 1 drp ophthalmic (eye) BEDTIME 09/28/22 07/13/23 melatonin 3 mg tablet 9 mg PO BEDTIME 09/28/22 07/13/23 aripiprazole 20 mg tablet 20 mg PO DAILY 10/03/22 07/13/23 brimonidine 0.1 % eye drops 1 drp ophthalmic (eye) BID 10/03/22 07/13/23 (Alphagan P) pioglitazone 15 mg tablet 15 mg PO BEDTIME 10/03/22 07/13/23 fluticasone propionate 115 2 puff inhalation Q12H 10/21/22 07/13/23 mcg-salmeterol 21 mcg/actuation HFA inhaler (Advair HFA) Previous Rx's Medication Instructions Recorded albuterol sulfate 90 mcg/actuation 2 puff inhalation Q4H PRN 06/03/22 aerosol inhaler Shortness Of Breath 60 days #8.5 grams docusate sodium 100 mg capsule 100 mg PO BID #180 caps 10/22/22 sennosides 8.6 mg tablet (senna) 17.2 mg (2 x 8.6 mg) PO BEDTIME 10/29/22 #180 tabs cyanocobalamin (vitamin B-12) 500 500 mcg PO DAILY 90 days #90 tabs 11/03/22 mcg tablet (Vitamin B-12) new lift chair #1 ea 11/10/22 pen needle, diabetic 32 gauge x #100 ea 11/24/22 5/16 (Comfort EZ Pen [place]) levalbuterol tartrate 45 2 puff inhalation Q4-6H PRN 11/30/22 mcg/actuation aerosol inhaler shortness of breath #1 ea levothyroxine 25 mcg tablet 25 mcg PO DAILY@0600 #90 tabs 01/04/23 fexofenadine 180 mg tablet 180 mg PO DAILY #90 tabs 03/02/23 liraglutide 0.6 mg/0.1 mL (18 mg/3 1.8 mg (0.3 mL) subcut DAILY 90 03/21/23 mL) subcutaneous pen injector days #27 mL (Victoza 3-Jeanmarie) insulin aspart U-100 100 unit/mL See Rx Instructions subcut TID PRN 03/22/23 (3 mL) subcutaneous pen (Novolog Hyperglycemia #30 mL FlexPen U-100 Insulin aspart) cholecalciferol (vitamin D3) 50 50 mcg PO BEDTIME #90 tabs 06/11/23 mcg (2,000 unit) tablet gabapentin 600 mg tablet 600 mg PO TID 30 days #90 tabs 06/22/23 atorvastatin 40 mg tablet 40 mg PO DAILY #28 tabs 06/24/23 empagliflozin 25 mg tablet 25 mg PO DAILY #28 tabs 06/25/23 (Jardiance) esomeprazole magnesium 40 mg 40 mg PO DAILY@0630 #28 caps 07/06/23 capsule,delayed release fenofibrate 160 mg tablet 160 mg PO DAILY #30 tabs 07/06/23 insulin degludec 100 unit/mL (3 40 unit (0.4 mL) subcut DAILY 30 07/13/23 mL) subcutaneous pen (Tresiba days #12 mL FlexTouch U-100 insulin) Allergies Allergy/AdvReac Type Severity Reaction Status Date / Time ziprasidone [From [facility]] Allergy Mild RASH-PALPIT Verified 07/13/23 09:50 ATIONS aspirin [ASPIRIN] Allergy Unknown GI bleed, Verified 07/13/23 09:50 stomach upset azithromycin Allergy Unknown facial Verified 07/13/23 09:50 swelling cephalexin [From KEFLEX] Allergy Unknown can't Verified 07/13/23 09:50 remember ibuprofen [IBUPROFEN] Allergy Unknown UNKNOWN, Verified 07/13/23 09:50 stomach upset lisinopril Allergy Unknown cough Verified 07/13/23 09:50 metformin [METFORMIN] Allergy Unknown NAUSEA & Verified 07/13/23 09:50 VOMITING, GI upset valsartan [From Diovan] Allergy Unknown hives Verified 07/13/23 09:50 tiotropium AdvReac Intermediate Unknown Verified 07/13/23 09:50 [From Spiriva with HandiHaler] NSAIDS (Non-Steroidal AdvReac Unknown HX OF GI Verified 07/13/23 09:50 Anti-Inflamma BLEED [NSAIDS (NON-STEROIDAL ANTI-INFLAMMA] tramadol [Ultram] AdvReac Unknown GI upset Verified 07/13/23 09:50 Review of Systems Constitutional: Constitutional: Denies chills, Denies fever(s) and Reports weakness Genitourinary: Genitourinary: Reports urinary frequency, Denies genital pruritis, Denies dysuria and Denies urinary incontinence Musculoskeletal: Musculoskeletal: Reports back pain Comments: Pain radiating down right leg Neurologic: Denies focal weakness and Reports weakness Comments: Notes numbness to anterior thigh Denies bowel or bladder incontinence or saddle anesthesias Denies constipation Notes difficulty urinating PMFSH Past Medical History Medical History (Updated 07/20/23 @ 20:38 by Carlos Albert) Smoker Nicotine dependence, cigarettes, uncomplicated Vulvar ulcer Jaw pain Sinus tachycardia Menopausal state Artificial menopause state T2DM (type 2 diabetes mellitus) (~2008) Dermatitis of vulva Acute respiratory failure with hypoxia Acute exacerbation of chronic obstructive pulmonary disease (COPD) Recurrent major depression-severe Lower extremity pain Sialoadenitis العلي (dyspnea on exertion) Chest pain Osteopenia (~2015) Pulmonary nodule Constipation Nocturnal hypoxemia COPD (chronic obstructive pulmonary disease) Spinal stenosis Depression Vitamin D deficiency Multinodular thyroid HLD (hyperlipidemia) Surgical History S/P thyroid biopsy History of lithotripsy History of cardiac catheterization Hx of colonoscopy Hx of arthroscopy of left knee Hx of spinal fusion Hx of cholecystectomy Family History Family History Father No problems noted. Mother Cancer Diabetes Social History Social History Household Members: None Housing: Apartment Do you presently have visiting nurse or other home services: Yes Alcohol intake: never Patient Tobacco Use Status: Current everyday Tobacco user Smoking Start Date: 04/01/1964 Tobacco use type: Cigarette Cigarette Packs Per Day: 1.5 Cigarettes Per Day: 39 Smoked in Last 30 Days: Yes e-Cigarette/Vaping Use: Former Use Second Hand Smoke Exposure: Yes Use of substances other than those prescribed or required for medical reasons: No Advance Directives: Yes Advance Directives on File: Yes Advance Directives Date on File: 12/02/22 service: No Current occupational status: retired Sexual orientation: Straight/Heterosexual Cognitive needs: No Hearing needs: No Vision needs: Yes Physical Exam Vital Signs: Vital Signs: Last Vital Signs Temp 97.8 F 07/20/23 21:36 Pulse 105 H 07/20/23 21:36 Resp 18 07/20/23 21:36 BP 103/42 L 07/20/23 21:36 Pulse Ox 97 07/20/23 21:36 O2 Del Method Nasal Cannula 07/20/23 21:36 O2 Flow Rate 3 07/20/23 21:36 BMI result Body Mass Index 38.4 Const: General: healthy appearing, comfortable, no acute distress, alert and awake Nutritional Appearance: well nourished Orientation/consciousness: patient oriented x3 HEENT: Head: Yes normocephalic and Yes atraumatic Eyes: Eyelids: Yes eyelids normal Conjunctivae: conjunctivae normal Sclerae: sclerae normal Corneas: corneas normal Pupils: Equal, round and reactive pupils present EOM: EOMs intact bilaterally Neck: Neck: Yes full ROM Resp: Effort & Inspection: normal respiratory effort, able to speak in complete sentences and not labored GI: Inspection: No distended Palpation (GI): Soft to palpation, not firm, nontender, no guarding and not rigid Rectal Exam - Female: normal sphincter tone Back/Spine/Pelvis: Other: Tenderness to the lumbar spine and right lumbar paraspinous region. No deformities Skin: General skin exam: elasticity normal Neuro: Other: Patient has 3/5 strength to the right lower extremity major muscle groups. Patient has 5/5 strength to major muscle groups of the left lower extremity General: patient oriented x3 Cranial nerves: Yes Equal, round and reactive pupils present and Yes Bilaterally intact EOM present Cognition (Neuro): normal cognition Motor exam (neuro): strength not 5/5 throughout, Normal motor muscle tone present throughout and Other motor observations present Course Reevaluation(s) Reevaluation #1: Received call back from [facility] transfer line. The patient was accepted to [facility] to ED to ED. The accepting physician is Dr. Chatterjee. Will make a disc of the patient's x-rays that were ordered for MRI screening. Will also provide the most recent lumbar spine MRI report for the patient to bring [facility]. Time: 21:21 Medications Administered Discontinued Medications Generic Name Dose Route Start Last Admin Trade Name Freq PRN Reason Stop Dose Admin Fentanyl 50 mcg 07/20/23 19:11 07/20/23 19:30 Fentanyl Citrate/Pf 100 Mcg/2 Ml Vial IVPUSH 07/20/23 19:12 50 mcg ONCE ONE Administration Protocol Ondansetron HCl 4 mg 07/20/23 19:11 07/20/23 19:31 Ondansetron Hcl 4 Mg/2 Ml Vial IVPUSH 07/20/23 19:12 4 mg ONCE ONE Administration Medical Decision Making Medical Decision Making MDM Narrative: 72-year-old female presents for evaluation of acute on chronic back pain. Remote history of L5-S1 fusion. MRI from 2020 shows a bulging disc at L3-L4. Patient denies any recent falls or trauma. No fevers or chills to suggest infectious process. She does endorse ?stretching the day prior to the onset for pain. It is possible this triggered a pinched nerve and simple sciatica. However on exam the patient does have appreciable weakness to the right lower extremity, he does have numbness right lower extremity as well as urinary retention with just under 700 cc of urine in the bladder. She states that she had some difficulty urinating this morning as she ?did not go as much as I usually do. ? Given her history and exam findings I attempted to order MRI of the lumbar spine to rule out cauda equina. After discussing with our apprentice technician as well as radiologist, Dr. Ramirez, it was made clear to me that it was impossible to get the patient an MRI tonight. We do not have after hours on-call for MRI. Therefore I discussed the patient and she is open to transfer. [facility] is not accepting transfers after calling their transfer line. Will call [facility] transfer line. Differential Diagnosis Differential Diagnoses: The differential diagnosis associated with the presentation includes Cauda equina syndrome Disc herniation Sciatica Vertebral nerve impingement Spinal abscess Acute on chronic back Lab Data [facility] Lab Attestation statement: I reviewed the patient's lab results. No leukocytosis or anemia. Chemistries are significant for a CO2 elevated to 31, anion gap of 9 just below normal. No significant electrolyte abnormalities. 07/20/23 19:26 07/20/23 19:26 Labs: Lab Results 07/20/23 07/20/23 07/20/23 Range/Units 19:04 19:26 19:47 WBC 5.3 (4.8-10.8) X10*3/uL RBC 4.59 (4.20-5.50) X10*6/uL Hgb 13.3 (12.0-16.0) g/dl Hct 41.0 (37.0-47.0) % MCV 89.3 (80.0-98.0) fL MCH 29.0 (27.0-33.0) pg MCHC 32.4 (31.0-35.0) g/dl RDW 14.2 (11.0-16.0) % Plt Count 208 (160-400) X10*3/uL MPV 10.3 (9.4-12.3) fL Immature Gran % (Auto) 0.2 (0.0-0.4) % Neut % (Auto) 64.6 (45-73) % Lymph % (Auto) 26.0 (20-40) % [place] % (Auto) 8.1 (2-11) % Eos % (Auto) 0.4 (0-4) % Baso % (Auto) 0.7 (0-2) % Lymph # (Auto) 1.4 (1.2-4.9) X10*3/uL [place] # (Auto) 0.4 (0.1-1.2) X10*3/uL Eos # (Auto) 0.0 (0.0-0.4) X10*3/uL Baso # (Auto) 0.0 (0.0-0.2) X10*3/uL Abs Immat Gran (auto) 0.01 (0.00-0.03) X10*3/uL Absolute Neuts (auto) 3.5 (2.0-8.3) x10*3/uL Absolute Nucleated RBC 0.000 (0.0-0.012) X10*3/uL Nucleated RBC % (auto) 0.0 (0.0-0.2) /100WBC Sodium 142 (135-145) mmol/L Potassium 4.2 (3.3-5.1) mmol/L Chloride 106 (96-108) mmol/L Carbon Dioxide 31 H (22-29) mmol/L Anion Gap 9 L (12-20) BUN 11 (9-16) mg/dL Creatinine 0.77 (0.5-1.4) mg/dL Estim Creat Clear Calc 71.0 Estimated GFR > 60 POC Glucose 96 (60-115) mg/dL Random Glucose 82 (60-115) mg/dL Calcium 9.3 (8.4-10.2) mg/dL Total Bilirubin 0.3 (0.0-1.0) mg/dL AST 22 (5-31) U/L ALT 17 (0-31) U/L Alkaline Phosphatase 40 (39-117) U/L Total Protein 6.4 L (6.5-8.0) g/dL Albumin 4.0 (3.5-5.0) g/dL Lipase 44 (8-78) U/L Urine Color Yellow Urine Appearance Clear Urine pH 6.5 (5.0-9.0) Ur Specific [place] 1.020 (1.005-1.025) Urine Protein Negative (Neg-Trace) mg/dL Urine Glucose (UA) >=1000 H (Negative) mg/dL Urine Ketones Negative (Negative) mg/dL Urine Blood Negative (Negative) Urine Nitrite Negative (Negative) Ur Leukocyte Esterase Negative (Negative) Urine RBC 0-2 (0-2) /HPF Urine WBC 0-5 (0-5) /HPF Ur Squamous Epith Cells 0-2 (0-2) /HPF Urine Bacteria None Seen (None Seen) Hyaline Casts 0-2 (0-2) /LPF 07/20/23 Range/Units 20:44 WBC (4.8-10.8) X10*3/uL RBC (4.20-5.50) X10*6/uL Hgb (12.0-16.0) g/dl Hct (37.0-47.0) % MCV (80.0-98.0) fL MCH (27.0-33.0) pg MCHC (31.0-35.0) g/dl RDW (11.0-16.0) % Plt Count (160-400) X10*3/uL MPV (9.4-12.3) fL Immature Gran % (Auto) (0.0-0.4) % Neut % (Auto) (45-73) % Lymph % (Auto) (20-40) % [place] % (Auto) (2-11) % Eos % (Auto) (0-4) % Baso % (Auto) (0-2) % Lymph # (Auto) (1.2-4.9) X10*3/uL [place] # (Auto) (0.1-1.2) X10*3/uL Eos # (Auto) (0.0-0.4) X10*3/uL Baso # (Auto) (0.0-0.2) X10*3/uL Abs Immat Gran (auto) (0.00-0.03) X10*3/uL Absolute Neuts (auto) (2.0-8.3) x10*3/uL Absolute Nucleated RBC (0.0-0.012) X10*3/uL Nucleated RBC % (auto) (0.0-0.2) /100WBC Sodium (135-145) mmol/L Potassium (3.3-5.1) mmol/L Chloride (96-108) mmol/L Carbon Dioxide (22-29) mmol/L Anion Gap (12-20) BUN (9-16) mg/dL Creatinine (0.5-1.4) mg/dL Estim Creat Clear Calc Estimated GFR POC Glucose 62 (60-115) mg/dL Random Glucose (60-115) mg/dL Calcium (8.4-10.2) mg/dL Total Bilirubin (0.0-1.0) mg/dL AST (5-31) U/L ALT (0-31) U/L Alkaline Phosphatase (39-117) U/L Total Protein (6.5-8.0) g/dL Albumin (3.5-5.0) g/dL Lipase (8-78) U/L Urine Color Urine Appearance Urine pH (5.0-9.0) Ur Specific [place] (1.005-1.025) Urine Protein (Neg-Trace) mg/dL Urine Glucose (UA) (Negative) mg/dL Urine Ketones (Negative) mg/dL Urine Blood (Negative) Urine Nitrite (Negative) Ur Leukocyte Esterase (Negative) Urine RBC (0-2) /HPF Urine WBC (0-5) /HPF Ur Squamous Epith Cells (0-2) /HPF Urine Bacteria (None Seen) Hyaline Casts (0-2) /LPF Discharge Plan Discharge Clinical Impression: Acute exacerbation of chronic low back pain Patient Disposition: [facility] Transfer Details: [facility] Prescriptions: No Action sennosides [senna] 8.6 mg tablet 17.2 mg PO BEDTIME Qty: 180 3RF cyanocobalamin (vitamin B-12) [Vitamin B-12] 500 mcg tablet 500 mcg PO DAILY 90 Days Qty: 90 3RF (DME) new lift chair See Rx Instructions .Route .MEDSUPPLY Qty: 1 0RF Rx Instructions: As directed (DME) pen needle, diabetic [Comfort EZ Pen [place]] 32 gauge x 5/16 needle See Rx Instructions .Route Qty: 100 4RF Rx Instructions: As directed injects 3 X/day levothyroxine 25 mcg tablet 25 mcg PO DAILY@0600 Qty: 90 3RF fexofenadine 180 mg tablet 180 mg PO DAILY Qty: 90 2RF Victoza 3-Jeanmarie 0.6 mg/0.1 mL (18 mg/3 mL) pen injector 1.8 mg subcut DAILY 90 Days Qty: 27 11RF insulin aspart U-100 [Novolog FlexPen U-100 Insulin] 100 unit/mL (3 mL) insulin pen See Rx Instructions subcut TID PRN (Reason: Hyperglycemia) Qty: 30 6RF Rx Instructions: Novolog sliding scale 3 times daily (200-250: 4 units, 251-300: 6 units, 301 - 350: 8 units, >351: 10 units) cholecalciferol (vitamin D3) 50 mcg (2,000 unit) tablet 50 mcg PO BEDTIME Qty: 90 3RF gabapentin 600 mg tablet 600 mg PO TID 30 Days Qty: 90 6RF atorvastatin 40 mg tablet 40 mg PO DAILY Qty: 28 0RF Jardiance 25 mg tablet 25 mg PO DAILY Qty: 28 1RF esomeprazole magnesium 40 mg capsule,delayed release(DR/EC) 40 mg PO DAILY@0630 Qty: 28 0RF fenofibrate 160 mg tablet 160 mg PO DAILY Qty: 30 0RF quetiapine 25 mg tablet 50 mg PO BID PRN (Reason: Anxiety) quetiapine 50 mg tablet 75 mg PO BEDTIME clonazepam 0.5 mg tablet 1 tab PO BID PRN (Reason: Anxiety) melatonin 3 mg tablet 9 mg PO BEDTIME aripiprazole 20 mg tablet 20 mg PO DAILY pioglitazone 15 mg tablet 15 mg PO BEDTIME Alphagan P 0.1 % drops 1 drp ophthalmic (eye) BID Rx Instructions: Instill 1 drop in both eyes latanoprost 0.005 % drops 1 drp ophthalmic (eye) BEDTIME docusate sodium 100 mg capsule 100 mg PO BID Qty: 180 3RF insulin degludec [Tresiba FlexTouch U-100] 100 unit/mL (3 mL) insulin pen 40 unit subcut DAILY 30 Days Qty: 12 0RF albuterol sulfate 90 mcg/actuation HFA aerosol inhaler 2 puff inhalation Q4H PRN (Reason: Shortness Of Breath) 60 Days Qty: 8.5 2RF fluticasone propion-salmeterol [Advair HFA] 115-21 mcg/actuation HFA aerosol inhaler 2 puff inhalation Q12H levalbuterol tartrate 45 mcg/actuation HFA aerosol inhaler 2 puff inhalation Q4-6H PRN (Reason: shortness of breath) Qty: 1 6RF Rx Instructions: 1-2 puffs every 4-6 hours as needed for shortness of breath
[2023-07-20] MEDS: fentaNYL citrate/PF 100 MCG/2 ML VIAL 50 MCG IVPUSH ×2 (19:30→22:22)
[2023-07-20] MEDS: ondansetron HCL 4 MG/2 ML VIAL IVPUSH (19:31)
[2023-07-20 19:34] LABS: MANUAL DIFF FLAG NO
[2023-07-20 19:41] LABS: Basophils Percent Auto 0.7 % (0-2); Eosinophils Percent Auto 0.4 % (0-4); Hemoglobin 13.3 g/dl (12.0-16.0); Imm Gran Abs Auto 0.01 X10*3/uL (0.00-0.03); Imm Gran Pct Auto 0.2 % (0.0-0.4); Lymphocytes Absolute Auto 1.4 X10*3/uL (1.2-4.9); Mean Corpuscular HGB Conc 32.4 g/dl (31.0-35.0); Mean Corpuscular Volume 89.3 fL (80.0-98.0); Mean Platelet Volume 10.3 fL (9.4-12.3); Monocytes Absolute Auto 0.4 X10*3/uL (0.1-1.2); Monocytes Percent Auto 8.1 % (2-11); Neutrophils Absolute Auto 3.5 x10*3/uL (2.0-8.3); Neutrophils Percent Auto 64.6 % (45-73); Platelet Count 208 X10*3/uL (160-400); Red Blood Count 4.59 X10*6/uL (4.20-5.50); Red Cell Distribution Width 14.2 % (11.0-16.0); White Blood Count 5.3 X10*3/uL (4.8-10.8)
[2023-07-20 19:59] VITALS: BP 95/42; PULSE 82; RESP 18; TEMP 36.9; O2SAT 93
[2023-07-20 19:59] LABS: Alanine Aminotransferase 17 U/L (0-31); Alkaline Phosphatase 40 U/L (39-117); Anion Gap 9 (12-20); Aspartate Amino Transferase 22 U/L (5-31); Bilirubin Total 0.3 mg/dL (0.0-1.0); Blood Urea Nitrogen 11 mg/dL (9-16); Calcium 9.3 mg/dL (8.4-10.2); Carbon Dioxide 31 mmol/L (22-29); Chloride 106 mmol/L (96-108); Estimated Glomerular Filt Rate > 60; Glucose Random 82 mg/dL (60-115); Lipase 44 U/L (8-78); Potassium 4.2 mmol/L (3.3-5.1); Sodium 142 mmol/L (135-145); Total Protein 6.4 g/dL (6.5-8.0)
[2023-07-20 20:05] LABS: Appearance Urine Clear; Bacteria Urine None Seen (None Seen); Color Urine Yellow; Glucose Urine UA >=1000 mg/dL (Negative); Hyaline Casts Urine 0-2 /LPF (0-2); Leukocyte Esterase Urine Negative (Negative); Nitrite Urine Negative (Negative); PH 6.5 (5.0-9.0); RBC Urine 0-2 /HPF (0-2); Squamous Epithelial Cell Urine 0-2 /HPF (0-2); UMIC TRIGGER UACC YES; Urine Blood Negative (Negative); Urine Ketones Negative (Negative); Urine Protein Negative (Neg-Trace); WBC Urine 0-5 /HPF (0-5)
[2023-07-20 20:48] LABS: Glucose, Whole Blood 62 mg/dL (60-115)
--- NOTE | 2023-07-20 20:51 | MHC.EDTECH ---
Pt's POC was 62 and the pt requested food. RN said she could have whatever she wanted. Pt requested and given ham sandwich, chocolate pudding, and regular ning bang
[2023-07-20 21:36] VITALS: BP 103/42; PULSE 105; RESP 18; TEMP 36.6; O2SAT 97
--- NOTE | 2023-07-20 22:25 | PC.NURSE ---
Patient alert and oriented x 3. Patient states hadn't eaten all day because it was to painful to walk. Patient ambulates at home with walker. tele: sinus rythym. Patient medicated x 2 with fentanyl iv push with relief. Patient retaining urine plummer placed 16f by this RN. Patient uses oxygen at home at night 2L via nasal cannula when she sleeps. [facility] to [facility].accepting Dr. Chatterjee [phone].
== END 2023-07-20 22:38 | disposition short-term general hospital (02) ==
PROVIDERS: Physician Assistant; Emergency Provider Emergency Medicine Emergency Medical Services; PCP Internal Medicine
DX: M54.50 Low back pain, unspecified (principal); R07.89 Other chest pain; R33.9 Retention of urine, unspecified; F17.210 Nicotine dependence, cigarettes, uncomplicated; Z79.899 Other long term (current) drug therapy
CPT/HCPCS: 36415; 51702; 51798; 80053; 81001; 82947; 83690; 85025; 93005; 96374; 96375; 96376; 99285; J2405; J3010

== ENCOUNTER → 2023-07-20 19:11 | Outpatient (BNV) | payer OTHER, SELFPAY | PROVIDERS: Emergency Provider Emergency Medicine Emergency Medical Services; PCP Internal Medicine; Visit Provider Internal Medicine Cardiovascular Disease | DX: M54.59 Other low back pain (principal) | CPT/HCPCS: 93010 ==

== ENCOUNTER 2023-08-17 10:15 | Outpatient (AMB) | payer OTHER, SELFPAY ==
[2023-08-17 10:18] VITALS: BP 108/62; PULSE 78; O2SAT 94; BMI 35.7
--- NOTE | 2023-08-17 10:18 | MHC.PC.OV ---
Vital Signs 08/17/23 10:18 Height 5 ft 2 in Weight 88.451 kg BMI 35.7 BP 108/62 Blood Pressure Location Lt brachial Position Sitting Pulse 78 Pulse Source Pulse Oximeter Pulse Oximetry (%) 94 Oxygen Delivery Method Room Air Intake Visit Reasons: discharged from hospital Intake Note: Patient is here for hospital discharge follow up. Patient was discharged from [facility] on 07/27/2023. 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 Allergies ziprasidone [From Geodon] Allergy (Mild, Verified 08/17/23 10:18) RASH-PALPITATIONS aspirin [ASPIRIN] Allergy (Unknown, Verified 08/17/23 10:18) GI bleed, stomach upset azithromycin Allergy (Unknown, Verified 08/17/23 10:18) facial swelling cephalexin [From KEFLEX] Allergy (Unknown, Verified 08/17/23 10:18) can't remember ibuprofen [IBUPROFEN] Allergy (Unknown, Verified 08/17/23 10:18) UNKNOWN, stomach upset lisinopril Allergy (Unknown, Verified 08/17/23 10:18) cough metformin [METFORMIN] Allergy (Unknown, Verified 08/17/23 10:18) NAUSEA & VOMITING, GI upset valsartan [From Diovan] Allergy (Unknown, Verified 08/17/23 10:18) hives tiotropium [From Spiriva with HandiHaler] Adverse Reaction (Intermediate, Verified 08/17/23 10:18) Unknown NSAIDS (Non-Steroidal Anti-Inflamma [NSAIDS (NON-STEROIDAL ANTI-INFLAMMA] Adverse Reaction (Unknown, Verified 08/17/23 10:18) HX OF GI BLEED tramadol [Ultram] Adverse Reaction (Unknown, Verified 08/17/23 10:18) GI upset Tobacco use date assessed: 08/17/23 Last assessed Fall Risk: 08/17/23 HPI HPI Comments History of Present Illness Details 72-year-old female with history of intractable back pain related to spinal stenosis of the lumbar region s/p lumbar laminectomy/fusion, type 2 diabetes with diet medic polyneuropathy, hyperlipidemia, hypothyroidism, and COPD on p.r.n. home O2 presents to the office today for hospital discharge follow-up. Discharge medications have been reviewed and reconciled. She initially presented to [facility] ED on 07/20 due to severe low back pain. She had been experiencing urinary retention and lower extremity weakness raising concerns for cauda equina syndrome. No saddle anesthesia or incontinence. Has baseline numbness in the feet bilaterally secondary to neuropathy and no new paresthesias. She had reported a back injury from ?twisting the wrong way? and falling to her knees about a month prior but denied any other injury. Luna catheter was placed and she was transferred to [facility] for emergent MRI as MRI services were unavailable at [facility] at that time. She was admitted for further evaluation and MRI on 07/21 showed postoperative changes of the L5-S1 level and degenerative changes in the lumbar spine with [id number] spinal canal narrowing at the L3/L4 level. Evaluated by neuro surgery stating she is a poor surgical candidate given her comorbidities and prior fusion history. They recommended IR right-sided L3-L4 SUELLEN and patient though reluctant did undergo injection. Pain control was difficult to manage per hospital discharge summary while in the hospital and required Tylenol 975 mg every 8 hours, oxycodone 5 mg every 4 hours p.r.n., gabapentin 600 mg 3 times daily, and tizanidine 4 mg every 8 hours scheduled. She was discharged to [facility] for short-term rehab for 1 week. She states she now has returned home and has [employer] services for about 16 hours weekly but continues struggling with activities of daily living including dressing herself. She is looking for a referral for PT/OT in the home to continue working on strengthening, transferring, gait, and dressing/toileting. She states her pain is currently a 7/10 and reports her goal of acceptable pain would be 4-5/10. She still experiences significant discomfort with ambulation especially with longer distances. She states the radiculopathy in the right lower extremity has greatly improved since the injection but still has significant discomfort in the low back. She denies any instability in the legs but continues with the paresthesias in the feet which again has been chronic due to neuropathy. [facility] Medical History Smoker Nicotine dependence, cigarettes, uncomplicated Vulvar ulcer Jaw pain Sinus tachycardia Menopausal state Artificial menopause state T2DM (type 2 diabetes mellitus) (~2008) Dermatitis of vulva Acute respiratory failure with hypoxia Acute exacerbation of chronic obstructive pulmonary disease (COPD) Recurrent major depression-severe Lower extremity pain Sialoadenitis العلي (dyspnea on exertion) Chest pain Osteopenia (~2016) Pulmonary nodule Constipation Nocturnal hypoxemia COPD (chronic obstructive pulmonary disease) Spinal stenosis Depression Vitamin D deficiency Multinodular thyroid HLD (hyperlipidemia) Surgical History S/P thyroid biopsy History of lithotripsy History of cardiac catheterization Hx of colonoscopy Hx of arthroscopy of left knee Hx of spinal fusion Hx of cholecystectomy Family History Father No problems noted. Mother Cancer Diabetes Social History Household Members: None Housing: Apartment Do you presently have visiting nurse or other home services: Yes Alcohol intake: never Patient Tobacco Use Status: Current everyday Tobacco user Smoking Start Date: 04/01/1964 Tobacco use type: Cigarette Cigarette Packs Per Day: 1.5 Cigarettes Per Day: 39 e-Cigarette/Vaping Use: Former Use Second Hand Smoke Exposure: Yes Advance Directives Date on File: 12/02/22 service: No Current occupational status: retired Sexual orientation: Straight/Heterosexual Cognitive needs: No Hearing needs: No Vision needs: Yes Female Reproductive History Menstrual Age of Menarche: 12 Questionnaire Thrive Questionnaire Date Thrive assessed: 07/13/23 AUDIT C Alcohol Use Questionnaire (AUDIT-C) 1. How often do you have a drink containing alcohol?: Never 3. How often do you have six or more drinks on one occasion?: Never Total Score: 0 GABRIELE-7 AMB Questionnaire GABRIELE-7 Date GABRIELE - 7 assessed: 07/13/23 Source: Developed by Drs. Masoud Gomez, Desi Mabry, George Cates and colleagues, with an educational zoila from [employer]. Review of Systems Const All systems reviewed & are unremarkable except as noted in HPI and below Physical exam (Primary Care) Vital Signs: Last Vital Signs Pulse 78 08/17/23 10:18 BP 108/62 08/17/23 10:18 Pulse Ox 94 08/17/23 10:18 Oxygen Delivery Method Room Air 08/17/23 10:18 BMI result Body Mass Index 35.7 Tobacco/Smoking Status: Tobacco use Status Tobacco use date assessed 08/17/23 08/17/23 10:19 Patient Tobacco Use Status Current everyday Tobacco 08/17/23 10:19 Tobacco use type Cigarette 08/17/23 10:19 e-Cigarette/Vaping Use Former Use 08/17/23 10:19 Thrive Assessment: Date of Thrive Assessment Date Thrive assessed 07/13/23 08/17/23 10:19 Const Other: Constitutional - Awake and Alert, No apparent distress Eyes - PERRLA, EOMI Cardiovascular - S1S2, RRR, No edema Respiratory - Normal lung expansion, Normal respiratory effort, No respiratory distress, CTA bilaterally Extremities - no calf tenderness bilaterally, no swelling Musculoskeletal - midline and rigiht sided paraspinal ttp at the level of about L3-L5 into R SI joint Skin - Warm/Dry Neurological - Alert & oriented x3, 4/5 strength RLE, 5/5 strength LLE Psychological - Appropriate affect Results Reviewed Results Reviewed: MRI lumbar spine, discharge summary, ed report Assessment and Plan Assessment & Plan (1) Spinal stenosis: Comment: MRI 09/2019, L3-L4 Code(s): M48.00 - Spinal stenosis, site unspecified Plan: MRI 07/21/23 shows postoperative changes at the L5/S1 level with degenerative changes in the lumbar spine with qfbp-my-zyksweoi spinal canal narrowing at the L3/L4 level. Continues to struggle with pain management. Reports a 7/10 pain currently following SUELLEN performed at [facility] 3 weeks prior. Acceptable pain level 4-5/10. Looking for referral to neurosurgery for further evaluation and management which is placed. She will continue alternating Tylenol and ibuprofen and can continue taking gabapentin 600 mg t.i.d. and tizanidine p.r.n.. Referral placed for PT/OT to continue with assistance with mobility, strengthening, therapeutic exercises, and assistance with ADLs. Continue with gentle stretches at home. Continue with walker for assistive device to prevent falls. (2) Lumbar spinal stenosis: Code(s): M48.061 - Spinal stenosis, lumbar region without neurogenic claudication Orders: Referrals [facility] Referral M48.061 - Spinal stenosis, lumbar region without neurogenic claudication Coding Level of Care Code Tele Est Pt Level 4 (51004) Diagnoses Spinal stenosis M48.00 Lumbar spinal stenosis M48.061
== END 2023-08-17 10:55 | disposition home or self-care (01) ==
PROVIDERS: PCP Internal Medicine; Visit Provider Physician Assistant
DX: M48.00 Spinal stenosis, site unspecified (principal); M48.061 Spinal stenosis, lumbar region without neurogenic claudication
CPT/HCPCS: 99214

== ENCOUNTER 2023-09-05 11:28 | Outpatient (REF) | payer OTHER, SELFPAY ==
[2023-09-05 13:30] LABS: Appearance Urine Clear; Color Urine Yellow; Glucose Urine UA >=1000 mg/dL (Negative); Leukocyte Esterase Urine Small (1+) (Negative); Nitrite Urine Negative (Negative); Specific Gravity - Urine 1.025 (1.005-1.025); UMIC TRIGGER UACC YES; Urine Blood Trace (Negative); Urine Ketones Negative (Negative); Urine Protein Negative (Neg-Trace)
[2023-09-05 13:35] LABS: Bacteria Urine 3+ (None Seen); Hyaline Casts Urine 0-2 /LPF (0-2); Squamous Epithelial Cell Urine 0-2 /HPF (0-2); UACC Culture Trigger YES; WBC Urine >50 /HPF (0-5)
== END 2023-09-05 11:29 | disposition home or self-care (01) ==
LOC: HO.HMGCLDS 11:28
PROVIDERS: PCP Internal Medicine; Visit Provider Internal Medicine
DX: R30.0 Dysuria (principal)
CPT/HCPCS: 81001; 87086; 87088; 87186

== ENCOUNTER 2023-09-06 12:42 | Outpatient (REF) | payer OTHER, SELFPAY ==
--- NOTE | ~2023-09-06 | CT_ITS ---
EXAMINATION: CT CHEST WITHOUT CONTRAST CLINICAL INFORMATION: Solitary pulmonary nodule COMPARISON: Previous CTs, most recent, 02/17/2023 TECHNIQUE: Multidetector volumetric CT imaging of the chest was done. Axial MIP volume rendering provided. Sagittal and coronal reformatted images were obtained. This CT examination was performed using dose optimization techniques as appropriate, variously including the following: *Automated exposure control *Adjustment of mA and/or kV according to patient size (this includes techniques or standardized protocols for targeted exams where dose is matched to indication/reason for exam; i.e. 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 LUNGS: Trachea and bronchi are patent. Mild centrilobular and paraseptal emphysema. Unchanged lingular and bilateral lower lobe atelectasis/scarring. Overall appearance of 2.9 cm predominantly groundglass opacity has not significantly changed in size over recent previous studies. The mixed density appearance to the opacity which has been present since 2019 is also not significantly changed. Overall, however, the groundglass opacity has demonstrated continued increase in size since 2016 when it was barely perceptible. Adjacent 9 mm groundglass opacity, 9:123, is not significantly changed. NODULES: RUL: Unchanged 2 mm subpleural, 9:67. MEDIASTINUM: Unremarkable thyroid. Unchanged nonspecific pretracheal and AP window lymph nodes. Nonenlarged heart. Mild pericardial thickening/fluid again seen. Nonaneurysmal aorta with atherosclerotic calcifications. Nonenlarged pulmonary arteries. CORONARY ARTERY CALCIFICATION: Mild PLEURA: There is no pleural effusion. No pleural mass or thickening. AXILLA: No lymphadenopathy. UPPER ABDOMEN: Status post cholecystectomy. OSSEOUS STRUCTURES: Old right rib fracture. No suspicious osseous lesions. CT/CT chest wo IV con IMPRESSION: Over most recent studies dating back to 2019, no significant change predominantly groundglass mixed density left lower lobe opacity. Given progressive interval increase in size and density since 2016, consider PET/CT for more definitive evaluation.
== END 2023-09-06 12:43 | disposition home or self-care (01) ==
LOC: HO.CT 12:42
PROVIDERS: PCP Internal Medicine; Visit Provider Internal Medicine
DX: R91.1 Solitary pulmonary nodule (principal); J44.9 Chronic obstructive pulmonary disease, unspecified; F17.200 Nicotine dependence, unspecified, uncomplicated
CPT/HCPCS: 71250

== ENCOUNTER 2023-09-07 13:29 | Outpatient (AMB) | payer OTHER, SELFPAY ==
[2023-09-07 13:37] VITALS: BP 110/52; PULSE 97; O2SAT 93; BMI 36.3
--- NOTE | 2023-09-07 13:37 | A.OFFVIS_ITS ---
Intake Vital Signs 09/07/23 13:37 Height 5 ft 2 in Weight 198 lb 6.656 oz BMI 36.3 BP 110/52 L Blood Pressure Location Lt brachial Position Sitting Pulse 97 Pulse Source Pulse Oximeter Pulse Oximetry (%) 93 Oxygen Delivery Method Room Air Intake Visit Reasons: COPD Intake Note: pt is here for follow up and states just short of breath with distances but having back issues that affect her breathing. pt is here for ct scan results. Glove Wrapper Required: No Allergies ziprasidone [From Geodon] Allergy (Mild, Verified 09/07/23 13:56) RASH-PALPITATIONS aspirin [ASPIRIN] Allergy (Unknown, Verified 09/07/23 13:56) GI bleed, stomach upset azithromycin Allergy (Unknown, Verified 09/07/23 13:56) facial swelling cephalexin [From KEFLEX] Allergy (Unknown, Verified 09/07/23 13:56) can't remember ibuprofen [IBUPROFEN] Allergy (Unknown, Verified 09/07/23 13:56) UNKNOWN, stomach upset lisinopril Allergy (Unknown, Verified 09/07/23 13:56) cough metformin [METFORMIN] Allergy (Unknown, Verified 09/07/23 13:56) NAUSEA & VOMITING, GI upset valsartan [From Diovan] Allergy (Unknown, Verified 09/07/23 13:56) hives sulfamethoxazole [From Bactrim] Adverse Reaction (Intermediate, Unverified 09/07/23 13:56) Hives tiotropium [From Spiriva with HandiHaler] Adverse Reaction (Intermediate, Ve rified 09/07/23 13:56) Unknown trimethoprim [From Bactrim] Adverse Reaction (Intermediate, Unverified 09/07/23 13:56) Hives NSAIDS (Non-Steroidal Anti-Inflamma [NSAIDS (NON-STEROIDAL ANTI-INFLAMMA] Adverse Reaction (Unknown, Verified 09/07/23 13:56) HX OF GI BLEED tramadol [Ultram] Adverse Reaction (Unknown, Verified 09/07/23 13:56) GI upset Medication List - Last Reconciled 09/07/23 by Nicholas Richter MD albuterol sulfate 90 mcg/actuation 2 puffs inhalation Q4H PRN 60 days aripiprazole 20 mg PO DAILY atorvastatin 40 mg PO DAILY brimonidine 0.1% (Alphagan P) 1 drp ophthalmic (eye) BID cefpodoxime 100 mg PO BID cholecalciferol (vitamin D3) 50 mcg PO BEDTIME clonazepam 1 tab PO BID PRN cyanocobalamin (vitamin B-12) (Vitamin B-12) 500 mcg PO DAILY 90 days docusate sodium 100 mg PO BID [dressing stick As directed] [easy on sock aid As directed] empagliflozin (Jardiance) 25 mg PO DAILY esomeprazole magnesium 40 mg PO DAILY@0630 fenofibrate 160 mg PO DAILY fexofenadine 180 mg PO DAILY fluticasone propion-salmeterol 115-21 mcg/actuation (Advair HFA) 2 puffs inhalation Q12H gabapentin 600 mg PO TID 30 days insulin aspart U-100 (Novolog FlexPen U-100 Insulin aspart) Novolog sliding scale 3 times daily (200-250: 4 units, 251-300: 6 units, 301 - 350: 8 units, >351: 10 units) insulin degludec (Tresiba FlexTouch U-100 insulin) 40 units (0.4 mL) subcut DAILY 30 days latanoprost 0.005% 1 drp ophthalmic (eye) BEDTIME levalbuterol tartrate 45 mcg/actuation 2 puffs inhalation Q4-6H PRN levothyroxine 25 mcg PO DAILY@0600 liraglutide (Victoza 3-Jenamarie) 1.8 mg (0.3 mL) subcut DAILY 90 days melatonin 9 mg PO BEDTIME [new lift chair As directed] pen needle, diabetic (Comfort EZ Pen Peerless) As directed injects 3 X/day phenazopyridine (Pyridium) 200 mg PO TID PRN pioglitazone 15 mg PO BEDTIME quetiapine 50 mg PO BID PRN quetiapine 75 mg PO BEDTIME sennosides (senna) 17.2 mg (2 x 8.6 mg) PO BEDTIME sennosides-docusate sodium 8.6-50 mg (Stimulant Laxative Plus) PO tizanidine 4 mg PO BID PRN [WHEELCHAIR As directed] Do you need a note to return to daycare/school/sports/work: No HPI COPD HPI Details ARELI, 72 YEARS OLD FEMALE, A HARD CORE SMOKER, COMES AFTER 4 MONTHS FOR FOLLOW-UP. HER SMOKING IS UP TO 1 AND HALF PACK OF CIGARETTES A DAY. SHE DOES HAVE FREQUENT COUGH WHICH IS DUE TO SMOKING. SHE DENIES ANY WHEEZING ATTACKS BUT WHEN SHE WALKS AROUND SHE DOES GET SHORT OF BREATH EASILY. SHE WALKS OUTDOORS WITH WHEELED WALKER. THE COUGH IS WORSE IN THE MORNING AND SHE DOES EXPECTORATES MODERATE AMOUNT OF MUCUS. CONTINUED SMOKING IS DEFINITELY RELATED TO HER ANXIETY LEVEL AND ALSO BIPOLAR DISORDER. [facility] Medical History (Updated 09/07/23 @ 14:10 by Nicholas Richter MD) Smoker Nicotine dependence, cigarettes, uncomplicated Vulvar ulcer Jaw pain Sinus tachycardia Menopausal state Artificial menopause state T2DM (type 2 diabetes mellitus) (~2008) Dermatitis of vulva Acute respiratory failure with hypoxia Acute exacerbation of chronic obstructive pulmonary disease (COPD) Recurrent major depression-severe Lower extremity pain Sialoadenitis العلي (dyspnea on exertion) Chest pain Osteopenia (~2015) Pulmonary nodule Constipation Nocturnal hypoxemia COPD (chronic obstructive pulmonary disease) Spinal stenosis Depression Vitamin D deficiency Multinodular thyroid HLD (hyperlipidemia) Surgical History S/P thyroid biopsy History of lithotripsy History of cardiac catheterization Hx of colonoscopy Hx of arthroscopy of left knee Hx of spinal fusion Hx of cholecystectomy Family History Father No problems noted. Mother Cancer Diabetes Social History Household Members: None Housing: Apartment Do you presently have visiting nurse or other home services: Yes Alcohol intake: never Patient Tobacco Use Status: Current everyday Tobacco user Smoking Start Date: 04/01/1964 Tobacco use type: Cigarette Cigarette Packs Per Day: 1.5 Cigarettes Per Day: 39 e-Cigarette/Vaping Use: Former Use Second Hand Smoke Exposure: Yes Advance Directives Date on File: 12/02/22 service: No Current occupational status: retired Sexual orientation: Straight/Heterosexual Cognitive needs: No Hearing needs: No Vision needs: Yes Female Reproductive History Menstrual Age of Menarche: 12 Review of Systems Const All systems reviewed & are unremarkable except as noted in HPI and below Eyes Reports no additional complaints ENT Reports nasal congestion (Mild intermittent) Card Denies chest pain, Denies irregular heart rhythm and Denies leg edema Resp Reports as per HPI GI Reports constipation and Reports dyspepsia Reports no additional complaints Musc Reports abnormal gait (Gait impaired has to use walker), Reports back pain and Reports arthralgias Skin/Breast Reports system reviewed and no additional complaints, except as documented Neuro Reports abnormal gait (Gait impaired has to use walker) Psych Reports anxiety, Reports depression and Reports mood swings Endo Reports other (Being treated for diabetes mellitus) Physical Exam Vital Signs: Last Vital Signs Pulse 97 09/07/23 13:37 BP 110/52 L 09/07/23 13:37 Pulse Ox 93 09/07/23 13:37 Oxygen Delivery Method Room Air 09/07/23 13:37 BMI result Body Mass Index 36.3 Const General: comfortable and no acute distress Orientation/consciousness: patient oriented x3 HEENT Head: Yes normal to inspection General nose exam: No nasal polyps present and No nasal discharge present Face and sinus: Yes sinuses nontender Mouth: oropharynx abnormals (Crowded, Mallampati class 4) Throat: Yes posterior oropharynx normal Eyes General: appearance normal, both eyes and all related structures Neck Neck: Yes normal visual inspection, Yes no lymphadenopathy, Yes trachea midline and Yes no JVD Thyroid: Thyroid normal Chest Chest palpation & inspection: normal inspection of the chest, normal palpation of entire chest wall and no tenderness Resp Other: Percussion note resonant, breath sounds are distant with prolonged expiratory phase. She has a few scattered expiratory wheezes over the lower lobes, especially on the left side. no crepitations. Cardio Palpation: normal PMI Rate: regular rate Rhythm: regular rhythm Heart sounds: no gallops and no murmurs GI Palpation (GI): Soft to palpation, nontender, No hepatosplenomegaly present and no masses Auscultation: normal bowel sounds Back/Spine/Pelvis Thoracic/Lumbar Spine: thoracic and lumbar spine normal to inspection and thoraco-lumbar ROM limited Skin General skin exam: no rashes or lesions noted Neuro General: patient oriented x3, No gait normal (Somewhat unsteady gait, uses walker) and no focal motor deficits Cranial nerves: Yes CN's II-XII intact bilaterally Extrem General: Yes normal to inspection, Yes no clubbing, cyanosis or edema and Yes no calf tenderness Psych Appearance: grossly normal and well kempt Speech and movement: Normal speech and movement present Results Reviewed Results Reviewed: CT Scan of Chest : IMPRESSION: Over most recent studies dating back to 2019, no significant change predominantly groundglass mixed density left lower lobe opacity. Given progressive interval increase in size and density since 2016, consider PET/CT for more definitive evaluation. Assessment & Plan Assessment & Plan (1) COPD (chronic obstructive pulmonary disease): Comment: Long-time chronic obstructive pulmonary disease, moderately severe,, controlled and stable. Code(s): J44.9 - Chronic obstructive pulmonary disease, unspecified Plan: Continue Advair HFA 115-21 2 puffs b.i.d.. Levalbuterol 2 puffs Q 4-6 hours p.r.n. (2) Nocturnal hypoxemia: Comment: She has evidence of nocturnal hypoxemia since 2007 . That is when she had an OVERNIGHT SLEEP STUDY, showing only minimal degree of ADDIS, total sleep time AHI 5.5, But persistent nocturnal hypoxemia. She has been treated with oxygen at night 2 L/MT . Code(s): G47.34 - Idiopathic sleep related nonobstructive alveolar hypoventilation Plan: Continue O2 2 L/minute at night. And 2 L/minute p.r.n. for any physical activity during the daytime (3) Pulmonary nodule: Comment: Patient has multiple small pulmonary nodules unchanged from before Two ground-glass nodular densities in lower lobes are somewhat increased from before. Need to be followed up closely. She is being followed by, our Lung screening team. Last CT scan on 11/19/22--- Current CT scan shows persistent density in the left lower lobe, , PET scan is recommended IMPRESSION: New groundglass attenuation left lower lobe nodules, largest measuring 1.3 x 2.7 cm. emphysema. ASSESSMENT: Lung-RADS category 4A: Suspicious . Code(s): R91.1 - Solitary pulmonary nodule Plan: CT scan on 02/17 done, there was no further change. But GG densities were still persisting. WILL ORDER A PET SCAN , AND IF THERE IS POSITIVE ACTIVITY THEN FURTHER WORKUP SUCH PERCUTANEOUS NEEDLE BIOPSY ARE A. SURGICAL EXCISION WOULD BE DISCUSSED (4) Smoker: Comment: Patient is a lifelong smoker. Currently smoking 1 and 1/2 pack of cigarettes a day. We have had repeated discussions about quitting smoking. She has underlying bipolar disorder and is difficult for her to quit. I told her to at least cut down to half pack a day. Code(s): F17.200 - Nicotine dependence, unspecified, uncomplicated Plan: TALKED TO HER AT LENGTH AGAIN AND I ADVISED HER TO LIMIT THE CIGARETTES TO 1 PACK A DAY NO MORE THAN THAT. Medications: Discontinued nitrofurantoin macrocrystal must administer with a meal/food Discontinued Reason: Doctor's Order 100 mg PO BID 14 caps 0RF Coding Level of Care Code Est Pt Level 4 (56486) Diagnoses COPD (chronic obstructive pulmonary disease) J44.9 Nocturnal hypoxemia G47.34 Pulmonary nodule R91.1 Smoker F17.200
== END 2023-09-07 13:58 | disposition home or self-care (01) ==
PROVIDERS: PCP Internal Medicine; Visit Provider Internal Medicine
DX: J44.9 Chronic obstructive pulmonary disease, unspecified (principal); G47.34 Idiopathic sleep related nonobstructive alveolar hypoventilation; R91.1 Solitary pulmonary nodule; F17.200 Nicotine dependence, unspecified, uncomplicated
CPT/HCPCS: 99214

== ENCOUNTER → 2023-09-07 13:29 | Outpatient (BNVA) | payer OTHER, SELFPAY | PROVIDERS: PCP Internal Medicine; Visit Provider Internal Medicine | DX: J44.9 Chronic obstructive pulmonary disease, unspecified (principal); G47.34 Idiopathic sleep related nonobstructive alveolar hypoventilation; R91.1 Solitary pulmonary nodule; F17.200 Nicotine dependence, unspecified, uncomplicated | CPT/HCPCS: 99212 ==

== ENCOUNTER 2023-09-21 10:07 | Outpatient (AMB) | payer OTHER, SELFPAY ==
--- NOTE | 2023-09-21 10:43 | HO.SPINEOV ---
Intake Intake Visit Reasons: postlaminectomy syndrome Intake Note: Ms. Rivas is here today c/o low back pain that radiates to both legs Administration Intern Required: No Allergies ziprasidone [From Geodon] Allergy (Mild, Verified 09/07/23 13:56) RASH-PALPITATIONS aspirin [ASPIRIN] Allergy (Unknown, Verified 09/07/23 13:56) GI bleed, stomach upset azithromycin Allergy (Unknown, Verified 09/07/23 13:56) facial swelling cephalexin [From KEFLEX] Allergy (Unknown, Verified 09/07/23 13:56) can't remember ibuprofen [IBUPROFEN] Allergy (Unknown, Verified 09/07/23 13:56) UNKNOWN, stomach upset lisinopril Allergy (Unknown, Verified 09/07/23 13:56) cough metformin [METFORMIN] Allergy (Unknown, Verified 09/07/23 13:56) NAUSEA & VOMITING, GI upset valsartan [From Diovan] Allergy (Unknown, Verified 09/07/23 13:56) hives sulfamethoxazole [From Bactrim] Adverse Reaction (Intermediate, Unverified 09/07/23 13:56) Hives tiotropium [From Spiriva with HandiHaler] Adverse Reaction (Intermediate, Verified 09/07/23 13:56) Unknown trimethoprim [From Bactrim] Adverse Reaction (Intermediate, Unverified 09/07/23 13:56) Hives NSAIDS (Non-Steroidal Anti-Inflamma [NSAIDS (NON-STEROIDAL ANTI-INFLAMMA] Adverse Reaction (Unknown, Verified 09/07/23 13:56) HX OF GI BLEED tramadol [Ultram] Adverse Reaction (Unknown, Verified 09/07/23 13:56) GI upset Assessment & Plan Assessment & Plan (1) Lumbar spinal stenosis: Code(s): M48.061 - Spinal stenosis, lumbar region without neurogenic claudication Plan Dear colleague Thank you for referring Sofiya Rivas to the office today with a chief complaint of right lumbar radiculopathy. HPI: This 72-year-old female has an extensive spinal surgical history that started in her 20s when she had a lumbar decompression for severe radiculopathy. That completely resolved. She underwent 2 surgeries by in the s for back pain. The last few years she had to start walking with a walker due to balance problems but she denied severe pain going down her legs. This changed on 07/19/2023 when she developed severe pain on the right side of her back going down her leg. She presented to [place] ED where they were afraid to perform an MRI and she was sent to [place] where an MRI was done. She was offered surgery but she did not want to have surgery done in [place]. Instead she underwent a nerve block which has resulted in relief of her symptoms. She still can not walk for prolonged period of times but the pain is improved. She denies weakness or numbness. No bowel urinary problems. The following conservative treatment options were tried without success, tylenol, physical therapy, cortisone shots PMH: Macular degeneration, diabetes, COPD, polyneuropathy, lung nodule for which she is being evaluated Medications: Nexium, levothyroxine, vitamin B12, gabapentin, Abilify, Advair, atorvastatin, clonazepam p.r.n., Colace, fenofibrate, Jardiance, levothyroxine, melatonin, NovoLog, Seroquel, Tresiba Allergies: Aspirin, ibuprofen Social history: She lives alone. She smokes a half pack a day Physical Exam: Pleasant female in wheelchair. She can stand with assistance. Straight leg raise is negative. No motor or sensory deficits. Radiological Studies: No imaging available for review] Impression/Plan: Clinically this patient has suffered from severe right lumbar radiculopathy/neurogenic claudication. She mentioned that the MRI [place] showed spinal stenosis. My plan will be to repeat an MRI at [place] and to also obtain a set of lumbar x-ray when she returns to discuss the MRI findings. Thank you for allowing me to participate in your patients care. total time spent was 50 minutes in counseling ,coordination of plan Bossman Bernal MD, PhD Spine Fellowship Trained Neurosurgeon Director, [facility] Orders: Orders MR lumbar spine wo con Today M48.061 - Spinal stenosis, lumbar region without neurogenic claudication Coding Level of Care Code New Pt Level 4 (49447) Diagnoses Lumbar spinal stenosis M48.061
== END 2023-09-21 11:28 | disposition home or self-care (01) ==
PROVIDERS: PCP Internal Medicine; Referring Provider Internal Medicine; Visit Provider Neurological Surgery
DX: M48.061 Spinal stenosis, lumbar region without neurogenic claudication (principal)
CPT/HCPCS: 99204

== ENCOUNTER → 2023-09-21 10:07 | Outpatient (BNVA) | payer OTHER, SELFPAY | PROVIDERS: PCP Internal Medicine; Visit Provider Neurological Surgery | DX: M48.061 Spinal stenosis, lumbar region without neurogenic claudication (principal) | CPT/HCPCS: 99202 ==

== ENCOUNTER 2023-09-27 11:08 | Outpatient (REF) | payer OTHER, SELFPAY ==
--- NOTE | ~2023-09-27 | PE_ITS ---
EXAMINATION: Fluorine-18 FDG PET/CT Scan CLINICAL INDICATION: Initial treatment management. Left lower lobe pulmonary nodule. PROCEDURE: 57 minutes following the intravenous administration of 21.3 mCi of fluorine 18 FDG, images from the base of the skull to the mid thighs were obtained using a combined PET/CT scanner with CT scan based attenuation correction. No oral contrast was administered. No intravenous contrast was administered. Transverse, coronal, sagittal, and volume reconstruction projections were obtained. The patient's blood glucose as determined by a finger stick, was 163 mg/dl immediately prior to injection. Total CT exam dose-length product 1041.63 mGy-cm * These CT images were obtained using dose optimization techniques as appropriate, variously including the following: Automated exposure control * Adjustment of mA and/or kV according to patient size (this includes techniques or standardized protocols for targeted exams where dose is matched to indication/reason for exam; i.e. extremities or head) * Use of iterative reconstruction technique COMPARISON: No previous PET/CT scan is available for comparison. CT scan of the chest dated 09/06/[address] scan of the abdomen and pelvis dated 06/05/2021 are available for comparison. FINDINGS: (Slice numbers described in this report are numbered superiorly to inferiorly with slice #1 in the head) NECK AND VISUALIZED HEAD: No foci of abnormal FDG activity are noted. The distribution of FDG activity is physiological. There is no cervical lymphadenopathy. THORAX: There are no foci of abnormal FDG activity in the chest. The groundglass appearance located posterolaterally in the left lower lobe visualized on the 09/06/[address] scan is again visualized, measuring approximately 2.2 x 0.7 cm, slice 114/[address] scan images. There is no associated abnormal FDG activity. Medial to this is just barely visible is a 0.9 x 0.5 cm, slice 115/349 additional groundglass opacity, and this is too small to be characterized on the FDG PET images. There is an additional subpleural 0.2 cm right upper lobe nodule, slice 89/349. This is much too small to be characterized on the FDG PET images. No additional suspicious pulmonary nodules are visualized. The CT appearance, considering the different CT techniques between the current nondiagnostic CT and the diagnostic 09/06/2023 study, the appearance of the lungs does not appear significantly changed. There is no pleural or pericardial fluid or pneumothorax. Mild emphysema in the anteromedial pleural-based bulla are noted, unchanged from prior studies. There is no mediastinal, supraclavicular, or axillary lymphadenopathy. ABDOMEN AND PELVIS: There are no foci of abnormal FDG activity in the abdomen or pelvis. There is mild FDG activity throughout the gastrointestinal tract without a suspicious focal component, likely physiological. There is diverticulosis without evidence of diverticulitis. The hollow viscera are otherwise unremarkable. The liver and spleen are unremarkable. The gallbladder has been resected and metallic surgical clips are present in the gallbladder bed. The kidneys, adrenal glands and pancreas are unremarkable. The pelvic organs are unremarkable. There is no retroperitoneal, mesenteric, pelvic or inguinal lymphadenopathy. MUSCULOSKELETAL: There are no foci of abnormal FDG activity in the osseous structures. There are degenerative changes in the spine. Bilateral pedicle screws at S1 and an L5-S1 metallic disc prostheses are noted with no associated abnormal FDG activity. VASCULAR: Vascular calcifications including coronary are noted. Reference SUVmax Levels: Mediastinal Blood Pool: 2.5, Slice 75/267 Liver: 4.5, Slice 119/267 PET/PET CT fusion whole body IMPRESSION: 1. Groundglass opacities posteriorly in the left lower lobe are visualized and appear unchanged from the recent 09/06/[address] scan. These show no abnormal FDG activity suggesting a benign etiology. However because approximately 10% of pulmonary malignancies demonstrate no abnormal FDG activity, if biopsy of this nodule is not obtained, followup with diagnostic CT scan in 6 months is recommended. 2. There is an additional right upper lobe subpleural 0.26 cm nodule, also unchanged from prior studies and much too small to be characterized on the FDG PET images. Attention on future CT imaging of the chest is recommended. 3. No additional abnormalities suspicious for metastatic or other malignant lesions are noted. 4. Vascular calcifications including coronary.
== END 2023-09-27 11:09 | disposition home or self-care (01) ==
LOC: HO.PET 11:08
PROVIDERS: PCP Internal Medicine; Visit Provider Internal Medicine
DX: Z13.89 Encounter for screening for other disorder (principal)

== ENCOUNTER 2023-10-04 12:02 | Outpatient (AMB) | payer OTHER, SELFPAY ==
--- NOTE | 2023-10-04 12:45 | MHC.OFFVIS ---
Intake Vital Signs 10/04/23 12:47 Height 5 ft 2 in Weight 198 lb BMI 36.2 BP 100/54 L Intake Visit Reasons: discharge with odor/vag itching Intake Note: pt c/o vaginal odor, discharge and iritation Lead Pharmacy Technician: Lead Pharmacy Technician Present (April) Allergies ziprasidone [From Geodon] Allergy (Mild, Verified 10/04/23 12:47) RASH-PALPITATIONS aspirin [ASPIRIN] Allergy (Unknown, Verified 10/04/23 12:47) GI bleed, stomach upset azithromycin Allergy (Unknown, Verified 10/04/23 12:47) facial swelling cephalexin [From KEFLEX] Allergy (Unknown, Verified 10/04/23 12:47) can't remember ibuprofen [IBUPROFEN] Allergy (Unknown, Verified 10/04/23 12:47) UNKNOWN, stomach upset lisinopril Allergy (Unknown, Verified 10/04/23 12:47) cough metformin [METFORMIN] Allergy (Unknown, Verified 10/04/23 12:47) NAUSEA & VOMITING, GI upset valsartan [From Diovan] Allergy (Unknown, Verified 10/04/23 12:47) hives sulfamethoxazole [From Bactrim] Adverse Reaction (Intermediate, Verified 10/04/23 12:47) Hives tiotropium [From Spiriva with HandiHaler] Adverse Reaction (Intermediate, Verified 10/04/23 12:47) Unknown trimethoprim [From Bactrim] Adverse Reaction (Intermediate, Verified 10/04/23 12:47) Hives NSAIDS (Non-Steroidal Anti-Inflamma [NSAIDS (NON-STEROIDAL ANTI-INFLAMMA] Adverse Reaction (Unknown, Verified 10/04/23 12:47) HX OF GI BLEED tramadol [Ultram] Adverse Reaction (Unknown, Verified 10/04/23 12:47) GI upset HPI HPI Comments History of Present Illness Details Patient is here today with complaints of foul discharge she reports over the last few months. She had douched to relieve herself of the odor which subsided for short period of time and returned. She denies any vaginal bleeding, or pelvic pain. She has not been sexually active in many years. [facility] Medical History (Updated 09/07/23 @ 14:12 by Nicholas Richter MD) Smoker Nicotine dependence, cigarettes, uncomplicated Vulvar ulcer Jaw pain Sinus tachycardia Menopausal state Artificial menopause state T2DM (type 2 diabetes mellitus) (~2008) Dermatitis of vulva Acute respiratory failure with hypoxia Acute exacerbation of chronic obstructive pulmonary disease (COPD) Recurrent major depression-severe Lower extremity pain Sialoadenitis العلي (dyspnea on exertion) Chest pain Osteopenia (~2015) Pulmonary nodule Constipation Nocturnal hypoxemia COPD (chronic obstructive pulmonary disease) Spinal stenosis Depression Vitamin D deficiency Multinodular thyroid HLD (hyperlipidemia) Surgical History S/P thyroid biopsy History of lithotripsy History of cardiac catheterization Hx of colonoscopy Hx of arthroscopy of left knee Hx of spinal fusion Hx of cholecystectomy Family History Father No problems noted. Mother Cancer Diabetes Social History Household Members: None Housing: Apartment Do you presently have visiting nurse or other home services: Yes Alcohol intake: never Patient Tobacco Use Status: Current everyday Tobacco user Smoking Start Date: [birth year]01/1964 Tobacco use type: Cigarette Cigarette Packs Per Day: 1.5 Cigarettes Per Day: 39 e-Cigarette/Vaping Use: Former Use Second Hand Smoke Exposure: Yes Advance Directives Date on File: 12/02/22 service: No Current occupational status: retired Sexual orientation: Straight/Heterosexual Cognitive needs: No Hearing needs: No Vision needs: Yes Female Reproductive History Menstrual Age of Menarche: 12 Review of Systems Const All systems reviewed & are unremarkable except as noted in HPI and below Physical Exam Vital Signs: Last Vital Signs BP 100/54 L 10/04/23 12:47 BMI result Body Mass Index 36.2 Const General: cooperative, healthy appearing and no acute distress Orientation/consciousness: patient oriented x3 GI Inspection: Yes normal to inspection Palpation (GI): Soft to palpation and Other GI palpation findings present (Nontender) Rectal Exam - Female: visual inspection normal General: Yes bladder normal to palpation External Female Exam: normal appearance of the urethra Speculum Exam - Vagina: normal appearance of the vagina, normal palpation, abnormal vaginal discharge (Slightly green) yellow and vagina atrophic Speculum Exam - Cervix: normal appearance of the cervix and normal palpation Bimanual exam- vagina & uterus: normal bimanual exam, normal palpation, uterine size normal, bladder normal to palpation, normal palpation, uterine shape normal and non-tender Bimanual Exam- Adnexa, other: normal adnexae Neuro General: patient oriented x3 Assessment & Plan Assessment & Plan (1) Vaginal odor: Code(s): N89.8 - Other specified noninflammatory disorders of vagina Plan BV panel obtained, await test results for plan of care. Advised to schedule her caseworker intake annual. All of her questions and concerns were addressed to the best of my ability and shared decision making. She is agreeable to the plan of care. This note is constructed using voice recognition software. While every effort has been made to ensure accuracy, space sciences director errors may have been included. Orders: Orders Bacterial Vaginosis Panel Today N89.8 - Other specified noninflammatory disorders of vagina Coding Level of Care Code Est Pt Level 3 (61328) Diagnoses Vaginal odor N89.8
[2023-10-04 12:47] VITALS: BP 100/54; BMI 36.2
== END 2023-10-04 13:25 | disposition home or self-care (01) ==
LOC: HO.HWS 12:02
PROVIDERS: PCP Internal Medicine; Visit Provider Advanced Practice Midwife
DX: N89.8 Other specified noninflammatory disorders of vagina (principal)
CPT/HCPCS: 99213

== ENCOUNTER 2023-10-04 12:02 | Outpatient (REF) | payer OTHER, SELFPAY ==
[2023-10-05 12:41] LABS: BV Int Neg Control Negative (Negative); BV Int Pos Control Positive (Positive)
== END 2023-10-04 12:03 | disposition home or self-care (01) ==
LOC: HO.LAB 12:02
PROVIDERS: PCP Internal Medicine; Visit Provider Advanced Practice Midwife
DX: N89.8 Other specified noninflammatory disorders of vagina (principal)
CPT/HCPCS: 87480; 87510; 87660; 99212

== ENCOUNTER 2023-10-11 13:59 | Outpatient (AMB) | payer OTHER, SELFPAY ==
--- NOTE | 2023-10-11 14:34 | HO.SPINEOV ---
Intake Intake Visit Reasons: Discuss surgery Intake Note: Ms. 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 Setup Operator Required: No Allergies ziprasidone [From Geodon] Allergy (Mild, Verified 10/04/23 12:47) RASH-PALPITATIONS aspirin [ASPIRIN] Allergy (Unknown, Verified 10/04/23 12:47) GI bleed, stomach upset azithromycin Allergy (Unknown, Verified 10/04/23 12:47) facial swelling cephalexin [From KEFLEX] Allergy (Unknown, Verified 10/04/23 12:47) can't remember ibuprofen [IBUPROFEN] Allergy (Unknown, Verified 10/04/23 12:47) UNKNOWN, stomach upset lisinopril Allergy (Unknown, Verified 10/04/23 12:47) cough metformin [METFORMIN] Allergy (Unknown, Verified 10/04/23 12:47) NAUSEA & VOMITING, GI upset valsartan [From Diovan] Allergy (Unknown, Verified 10/04/23 12:47) hives sulfamethoxazole [From Bactrim] Adverse Reaction (Intermediate, Verified 10/04/23 12:47) Hives tiotropium [From Spiriva with HandiHaler] Adverse Reaction (Intermediate, Verified 10/04/23 12:47) Unknown trimethoprim [From Bactrim] Adverse Reaction (Intermediate, Verified 10/04/23 12:47) Hives NSAIDS (Non-Steroidal Anti-Inflamma [NSAIDS (NON-STEROIDAL ANTI-INFLAMMA] Adverse Reaction (Unknown, Verified 10/04/23 12:47) HX OF GI BLEED tramadol [Ultram] Adverse Reaction (Unknown, Verified 10/04/23 12:47) GI upset Assessment & Plan Assessment & Plan (1) Lumbar stenosis with neurogenic claudication: Code(s): M48.062 - Spinal stenosis, lumbar region with neurogenic claudication Plan Dear colleague, On October 10, I saw for follow-up Sofiya Rivas to review the MRI of the lumbar spine and to discuss surgery to address her ongoing predominantly right neurogenic claudication. As stated in my previous note, this 72-year-old female developed severe pain on the right side of her back down her leg on 07/19/2023. An MRI had to be done in [place] and she was accordingly offered surgery at [place], which she denied as it was too far from home. A nerve block gave her temporary relief. She states that she still having significant amount of pain. She can hardly walk or stand. She is basically homebound due to her symptoms. Today in the office she sitting in a wheelchair. She states that she also has minor symptoms in her left leg. I reviewed the MRI from [facility] that show status post L5-S1 lumbar fusion but more importantly it shows moderate to severe L3-4 spinal stenosis with the right side is more affected than the left side. This patient is suffering from predominantly unilateral right sided neurogenic claudication for which I offered her a right L3-4 lumbar decompression. I reviewed the imaging in detail with the patient and discussed the procedure and expected postoperative outcome. She is scheduled for 11/15/2023. 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 She she has COPD and uses oxygen at night for sleep apnea. Her A1c is 7.1 according to the patient. I spent 30 minutes in his consult to discuss the MRI findings and plan of care. Bossman Bernal MD, PhD Spine Fellowship Trained Neurosurgeon Director, [facility] [place] Coding Level of Care Code Est Pt Level 4 (48826) Diagnoses Lumbar stenosis with neurogenic claudication M48.062
== END 2023-10-11 15:10 | disposition home or self-care (01) ==
PROVIDERS: PCP Internal Medicine; Visit Provider Neurological Surgery
DX: M48.062 Spinal stenosis, lumbar region with neurogenic claudication (principal)
CPT/HCPCS: 99214

== ENCOUNTER → 2023-10-11 13:59 | Outpatient (BNVA) | payer OTHER, SELFPAY | PROVIDERS: PCP Internal Medicine; Visit Provider Neurological Surgery | DX: M48.062 Spinal stenosis, lumbar region with neurogenic claudication (principal) | CPT/HCPCS: 99212 ==

== ENCOUNTER 2023-10-19 10:06 | Outpatient (AMB) | payer OTHER, SELFPAY ==
--- NOTE | 2023-10-19 10:10 | MHC.PC.OV ---
Vital Signs 10/19/23 10:15 Height 5 ft 2 in BMI Reason not done Patient refused/unable BP 124/68 Blood Pressure Location Lt brachial Position Sitting Pulse 86 Pulse Source Pulse Oximeter Pulse Oximetry (%) 94 Oxygen Delivery Method Room Air Intake Visit Reasons: DM Allergies ziprasidone [From Geodon] Allergy (Mild, Verified 10/19/23 10:17) RASH-PALPITATIONS aspirin [ASPIRIN] Allergy (Unknown, Verified 10/19/23 10:17) GI bleed, stomach upset azithromycin Allergy (Unknown, Verified 10/19/23 10:17) facial swelling cephalexin [From KEFLEX] Allergy (Unknown, Verified 10/19/23 10:17) can't remember ibuprofen [IBUPROFEN] Allergy (Unknown, Verified 10/19/23 10:17) UNKNOWN, stomach upset lisinopril Allergy (Unknown, Verified 10/19/23 10:17) cough metformin [METFORMIN] Allergy (Unknown, Verified 10/19/23 10:17) NAUSEA & VOMITING, GI upset valsartan [From Diovan] Allergy (Unknown, Verified 10/19/23 10:17) hives sulfamethoxazole [From Bactrim] Adverse Reaction (Intermediate, Verified 10/19/23 10:17) Hives tiotropium [From Spiriva with HandiHaler] Adverse Reaction (Intermediate, Verified 10/19/23 10:17) Unknown trimethoprim [From Bactrim] Adverse Reaction (Intermediate, Verified 10/19/23 10:17) Hives NSAIDS (Non-Steroidal Anti-Inflamma [NSAIDS (NON-STEROIDAL ANTI-INFLAMMA] Adverse Reaction (Unknown, Verified 10/19/23 10:17) HX OF GI BLEED tramadol [Ultram] Adverse Reaction (Unknown, Verified 10/19/23 10:17) GI upset Tobacco use date assessed: 10/19/23 Fall risk assessment: No Falls in past year Last assessed Fall Risk: 10/19/23 Dental Screening Dental Screen Date: 07/13/23 Did you have a dental visit in the last 12 months?: No Did you have a dental problem in the last 6 months where you did not have access to dental care?: No HPI DM HPI Details 72-year-old obese female smoker with diabetes mellitus COPD hypothyroidism hypercholesterolemia GERD and depression last seen in June 2023. Patient is up-to-date with mammogram and declined colonoscopy. Patient has a history of status post L5-S1 lumbar fusion showing also moderate to severe L3-L4 spinal stenosis on the right side and complains of unilateral right-sided neurogenic claudication.. Patient also had a PET scan done this month for pulmonary nodule left lower lobe noted ground-glass opacities posterior to the left lobe no abnormal FDG activity if biopsy not obtained advised retesting in 6 months. Noted also right upper lobe nodule. Patient also follows up with Pulmonary. Not ready to stop smoking. November 15, 2023 procedure, will be seeing pulmonary November 10, 2023- [facility] Medical History (Updated 10/19/23 @ 10:36 by Chiquis Grajeda MD) Lumbar spinal stenosis Smoker Nicotine dependence, cigarettes, uncomplicated Vulvar ulcer Jaw pain Sinus tachycardia Menopausal state Artificial menopause state T2DM (type 2 diabetes mellitus) (~2008) Dermatitis of vulva Acute respiratory failure with hypoxia Acute exacerbation of chronic obstructive pulmonary disease (COPD) Recurrent major depression-severe Lower extremity pain Sialoadenitis العلي (dyspnea on exertion) Chest pain Osteopenia (~2015) Pulmonary nodule Constipation Nocturnal hypoxemia COPD (chronic obstructive pulmonary disease) Spinal stenosis Depression Vitamin D deficiency Multinodular thyroid HLD (hyperlipidemia) Surgical History S/P thyroid biopsy History of lithotripsy History of cardiac catheterization Hx of colonoscopy Hx of arthroscopy of left knee Hx of spinal fusion Hx of cholecystectomy Family History Father No problems noted. Mother Cancer Diabetes Social History Household Members: None Housing: Apartment Do you presently have visiting nurse or other home services: Yes Alcohol intake: never Patient Tobacco Use Status: Current everyday Tobacco user Smoking Start Date: 04/01/1964 Tobacco use type: Cigarette Cigarette Packs Per Day: 1.5 Cigarettes Per Day: 39 e-Cigarette/Vaping Use: Former Use Second Hand Smoke Exposure: Yes Advance Directives Date on File: 12/02/22 service: No Current occupational status: retired Sexual orientation: Straight/Heterosexual Cognitive needs: No Hearing needs: No Vision needs: Yes Female Reproductive History Menstrual Age of Menarche: 12 Questionnaire Thrive Questionnaire Date Thrive assessed: 07/13/23 AUDIT C Alcohol Use Questionnaire (AUDIT-C) 1. How often do you have a drink containing alcohol?: Never 3. How often do you have six or more drinks on one occasion?: Never Total Score: 0 GABRIELE-7 AMB Questionnaire GABRIELE-7 Date GABRIELE - 7 assessed: 07/13/23 Source: Developed by Drs. Masoud Gomez, Desi Mabry, George Cates and colleagues, with an educational zoila from [employer]. Physical exam (Primary Care) Vital Signs: Last Vital Signs Pulse 86 10/19/23 10:15 BP 124/68 10/19/23 10:15 Pulse Ox 94 10/19/23 10:15 Oxygen Delivery Method Room Air 10/19/23 10:15 Tobacco/Smoking Status: Tobacco use Status Tobacco use date assessed 10/19/23 10/19/23 10:17 Patient Tobacco Use Status Current everyday Tobacco 10/19/23 10:17 Tobacco use type Cigarette 10/19/23 10:17 e-Cigarette/Vaping Use Former Use 10/19/23 10:17 Thrive Assessment: Date of Thrive Assessment Date Thrive assessed 07/13/23 10/19/23 10:17 Const General: alert; No acute distress Eyes Conjunctivae: conjunctivae normal Resp Auscultation: clear to auscultation bilaterally Cardio Rate: regular rate Rhythm: regular rhythm GI Inspection: Yes normal to inspection Extrem General: Yes normal to inspection and No edema Results AMB Hemoglobin A1c AMB Hemoglobin A1c 7.1 % Last Edit by ORION Lisa on 10/19/23 10:36 Assessment and Plan Assessment & Plan (1) Lumbar stenosis with neurogenic claudication: Code(s): M48.062 - Spinal stenosis, lumbar region with neurogenic claudication Plan: Patient has met with a neurosurgeon and planning to do surgery. (2) Type 2 diabetes mellitus with hyperglycemia: Comment: Dr. Shipley Code(s): E11.65 - Type 2 diabetes mellitus with hyperglycemia Plan: Decrease the amount of carbohydrate intake, pasta, bread, rice and potatoes are all sugar and that is aside from all the sweet stuff, remember that fruits are good but they are Sweet also. Hemoglobin A1c goal of less than 7.0. On Jardiance 25 mg once a day insulin Tresiba and NovoLog Victoza (3) COPD (chronic obstructive pulmonary disease): Comment: Long-time chronic obstructive pulmonary disease, moderately severe,, controlled and stable. Code(s): J44.9 - Chronic obstructive pulmonary disease, unspecified Plan: Patient follows up with Pulmonary continuing with the inhalers (4) Hypothyroid: Code(s): E03.9 - Hypothyroidism, unspecified Plan: Continue with thyroid medication (5) HLD (hyperlipidemia): Code(s): E78.5 - Hyperlipidemia, unspecified Qualifiers: Hyperlipidemia type: unspecified Qualified Code(s): E78.5 - Hyperlipidemia, unspecified Plan: Avoid fried foods, chicken skin, eggs, butter margarine, pastries and meat. Be it pork or beef they have a lot of cholesterol LDL goal of less than 100 and triglyceride of less than 150 on atorvastatin 40 mg once a day (6) GERD (gastroesophageal reflux disease): Code(s): K21.9 - Gastro-esophageal reflux disease without esophagitis Plan: Avoid the foods that causes that usually spicy foods, tomato products, juices, coffee, soda and foods that your sensitive to. After eating do not lie down, allow 3-4 hours before in lie down. And keep the head of bed above 30 degrees to avoid the acid from going up. (7) Recurrent major depression-severe: Code(s): F33.2 - Major depressive disorder, recurrent severe without psychotic features Plan: Continue with present medication and counseling and therapy advised (8) Pulmonary nodule: Comment: Patient has multiple small pulmonary nodules unchanged from before Two ground-glass nodular densities in lower lobes are somewhat increased from before. Need to be followed up closely. She is being followed by, our Lung screening team. Last CT scan on 11/19/22--- Current CT scan shows persistent density in the left lower lobe, , PET scan is recommended IMPRESSION: New groundglass attenuation left lower lobe nodules, largest measuring 1.3 x 2.7 cm. emphysema. ASSESSMENT: Lung-RADS category 4A: Suspicious . Code(s): R91.1 - Solitary pulmonary nodule Plan: Advised to retest CT scan in January 2024 Orders: Orders ECG 12 lead EKG Today M48.062 - Spinal stenosis, lumbar region with neurogenic claudication Comprehensive Met. Panel Today M48.062 - Spinal stenosis, lumbar region with neurogenic claudication Complete Blood Count Auto Diff Today M48.062 - Spinal stenosis, lumbar region with neurogenic claudication AMB Hemoglobin A1c Today E11.65 - Type 2 diabetes mellitus with hyperglycemia Medications: Refilled sennosides (senna) 17.2 mg (2 x 8.6 mg) PO BEDTIME 180 tabs 3RF K59.00 - Constipation, unspecified docusate sodium 100 mg PO BID 180 caps 3RF gabapentin 600 mg PO TID 30 days 90 tabs 6RF Coding Level of Care Code Est Pt Level 4 (40459) Diagnoses Lumbar stenosis with neurogenic claudication M48.062 Type 2 diabetes mellitus with hyperglycemia E11.65 COPD (chronic obstructive pulmonary disease) J44.9 Hypothyroid E03.9 Hyperlipidemia, unspecified hyperlipidemia type E78.5 Hyperlipidemia type: unspecified GERD (gastroesophageal reflux disease) K21.9 Recurrent major depression-severe F33.2 Pulmonary nodule R91.1
[2023-10-19 10:15] VITALS: BP 124/68; PULSE 86; O2SAT 94
== END 2023-10-19 11:25 | disposition home or self-care (01) ==
PROVIDERS: PCP Internal Medicine; Visit Provider Internal Medicine
DX: M48.062 Spinal stenosis, lumbar region with neurogenic claudication (principal); E11.65 Type 2 diabetes mellitus with hyperglycemia; J44.9 Chronic obstructive pulmonary disease, unspecified; E03.9 Hypothyroidism, unspecified; E78.5 Hyperlipidemia, unspecified; K21.9 Gastro-esophageal reflux disease without esophagitis; R91.1 Solitary pulmonary nodule
CPT/HCPCS: 83036; 99214

== ENCOUNTER 2023-11-07 09:07 | Outpatient (AMB) | payer OTHER, SELFPAY ==
[2023-11-07 09:11] VITALS: BP 102/62; PULSE 89; BMI 36.4
--- NOTE | 2023-11-07 09:11 | MHC.OFFVIS ---
Vital Signs 11/07/23 09:11 Height 5 ft 2 in Weight 199 lb 4.766 oz BMI 36.4 BP 102/62 Blood Pressure Location Rt brachial Position Sitting Pulse 89 Pulse Source Pulse Oximeter Intake Visit Reasons: f/u thyroid nodule-confirmed Intake Note: Patient present today for Thyroid nodule follow up visit, Group Exercise Class Instructor Required: No Accompanied by: Self / Same As Patient Allergies aspirin [ASPIRIN] Allergy (Severe, Verified 11/07/23 09:16) GI bleed, stomach upset ibuprofen [IBUPROFEN] Allergy (Severe, Verified 11/07/23 09:16) GI Bleed, stomach upset valsartan [From Diovan] Allergy (Severe, Verified 11/07/23 09:16) hives ziprasidone [From Geodon] Allergy (Severe, Verified 11/07/23 09:16) RASH-PALPITATIONS azithromycin Allergy (Intermediate, Verified 11/07/23 09:16) facial swelling metformin [METFORMIN] Allergy (Intermediate, Verified 11/07/23 09:16) NAUSEA & VOMITING, GI upset cephalexin [From KEFLEX] Allergy (Unknown, Verified 11/07/23 09:16) can't remember lisinopril Allergy (Unknown, Verified 11/07/23 09:16) cough NSAIDS (Non-Steroidal Anti-Inflamma [NSAIDS (NON-STEROIDAL ANTI-INFLAMMA] Adverse Reaction (Severe, Verified 11/07/23 09:16) HX OF GI BLEED tramadol [Ultram] Adverse Reaction (Severe, Verified 11/07/23 09:16) GI upset sulfamethoxazole [From Bactrim] Adverse Reaction (Intermediate, Verified 11/07/23 09:16) Hives tiotropium [From Spiriva with HandiHaler] Adverse Reaction (Intermediate, Verified 11/07/23 09:16) Unknown trimethoprim [From Bactrim] Adverse Reaction (Intermediate, Verified 11/07/23 09:16) Hives HPI Comments Details: 73 YO F with extensive PMHx who is seen in F/U for , NTMNG 1) T2DM: ) NTMNG: Had thyroid US which revealed large 2.0 cm R superior nodule. Denies any compressive symptoms. Denies any history of head or neck irradiation. No history of thyroid cancer. Underwent FNA of this nodule 05/10/19 with Benign ([place] Category II) cytology. US Thyroid: 02/18/2022 Right Thyroid Lobe: 5.2 x 2.4 x 2.4 cm, volume 15.7 mL. Previously 6.0 x 2.4 x 2.1 cm, volume 15.8 mL. Parenchyma: The gland echotexture is homogeneous. Thyroid vascularity is normal. Left Thyroid Lobe: 3.9 x 1.5 x 1.6 cm, volume 4.9 mL. Previously 4.3 x 1.6 x 1.3 cm, volume 4.7 mL. Parenchyma: The gland echotexture is homogeneous. Thyroid vascularity is normal. Isthmus: 0.5 cm in maximum AP dimension. Previously 0.6 cm. Estimated total number of nodules greater than or equal to 1 cm: 2. Mark Up Designer nodules are described as follows: 1.? Location: Right superior. ?? ? Size: 2.3 x 2.0 x 1.7 cm, volume 4.1 mL. ?? ? Previously: 1.9 x 1.9 x 1.9 cm, volume 3.6 mL. ?? ? Nodule characteristics: ?? ? Composition: Solid (2). ?? ? Echogenicity: Isoechoic (1). ?? ? Shape: Taller than wide (3). ?? ? Margins: Smooth (0). ?? ? Echogenic Foci: None (0). ? ACR TI-RADS total points: 6 Previous: 6 ?? ? ACR TI-RADS category: 4 Previous: 4 ? Significant change in size (>/= 20% in 2 dimensions and minimal increase of 2 mm or 50% or greater increase in volume): ?? ? Change in features: ?? ? Change in ACR TI-RADS risk category: 2.? Location: Right superior/mid. ?? ? Size: 1.0 x 0.6 x 0.9 cm, volume 0.3 mL. ?? ? Previously: 1.1 x 0.7 x 1.1 cm, volume 0.4 mL. ?? ? Nodule characteristics: ?? ? Composition: Solid/almost completely solid (2). ?? ? Echogenicity: Hyperechoic (1). ?? ? Shape: Not taller than wide (0). ?? ? Margins: Ill-defined (0). ?? ? Echogenic Foci: None (0). ? ACR TI-RADS total points: 3 Previous: 3 ?? ? ACR TI-RADS category: 3 Previous: 3 ? Significant change in size (>/= 20% in 2 dimensions and minimal increase of 2 mm or 50% or greater increase in volume): ?? ? Change in features: ?? ? Change in ACR TI-RADS risk category: 3.? Location: Right inferior. ?? ? Size: 0.5 x 0.4 x 0.6 cm, volume 0.07 mL. ?? ? Previously: 0.6 x 0.4 x 0.7 cm, volume 0.08 mL. ?? ? Nodule characteristics: ?? ? Composition: Mixed cystic and solid (1). ?? ? Echogenicity: Cannot be determined (1). ?? ? Shape: Not taller than wide (0). ?? ? Margins: Smooth (0). ?? ? Echogenic Foci: None (0).? ACR TI-RADS total points: 2 Previous: 2 ?? ? ACR TI-RADS category: 2 Previous: 2 ? Significant change in size (>/= 20% in 2 dimensions and minimal increase of 2 mm or 50% or greater increase in volume): ?? ? Change in features: ?? ? Change in ACR TI-RADS risk category: 4.? Location: Left superior. ?? ? Size: 0.4 x 0.2 x 0.3 cm, volume 0.02 mL. ?? ? Previously: 0.4 x 0.2 x 0.4 cm, volume 0.02 mL. ?? ? Nodule characteristics: ?? ? Composition: Mixed cystic and solid (1). ?? ? Echogenicity: Cannot be determined (1). ?? ? Shape: Not taller than wide (0). ?? ? Margins: Smooth (0). ?? ? Echogenic Foci: None (0).? ACR TI-RADS total points: 2 Previous: 2 ?? ? ACR TI-RADS category: 2 Previous: 2 ? Significant change in size (>/= 20% in 2 dimensions and minimal increase of 2 mm or 50% or greater increase in volume): ?? ? Change in features: ?? ? Change in ACR TI-RADS risk category: Small cystic area superior to the isthmus appears decreased in size measuring 5 x 3 x 4 mm compared to 9 x 5 x 5 mm on most recent exam February 2021. NODES: No lymphadenopathy is seen in the tissue surrounding the thyroid gland. Labs: Laboratory Tests 10/26/22 10/26/22 10/26/22 07:09 07:09 07:09 Sodium 142 Potassium 4.4 Creatinine 0.79 Estimated GFR > 60 Hemoglobin A1c % 7.8 LDL Cholesterol, Calc 78 TSH 2.33 Free T4 0.99 Microalb/Creat Ratio 10.0 Saw director of corporate communications at [facility] will decide not to biopsy right thyroid nodule [facility] Medical History (Updated 11/01/23 @ 13:56 by Daisha Dwyer RN) Uses wheelchair Wears dentures Supplemental oxygen dependent Slow to wake up after anesthesia Lumbar spinal stenosis Smoker Nicotine dependence, cigarettes, uncomplicated Dermatitis of vulva Acute respiratory failure with hypoxia Acute exacerbation of chronic obstructive pulmonary disease (COPD) Vulvar ulcer Recurrent major depression-severe Lower extremity pain Sialoadenitis Jaw pain العلي (dyspnea on exertion) Chest pain Osteopenia (~2015) Sinus tachycardia Pulmonary nodule Menopausal state Artificial menopause state Constipation Nocturnal hypoxemia COPD (chronic obstructive pulmonary disease) Spinal stenosis Depression Vitamin D deficiency Multinodular thyroid HLD (hyperlipidemia) T2DM (type 2 diabetes mellitus) (~2008) Surgical History S/P thyroid biopsy History of lithotripsy History of cardiac catheterization Hx of colonoscopy Hx of arthroscopy of left knee Hx of spinal fusion Hx of cholecystectomy Family History Father No problems noted. Mother Cancer Diabetes Social History Household Members: None Housing: Apartment Are you a primary laboratory animal caretaker to a significant other at home: No Do you presently have visiting nurse or other home services: Yes (CHIEF CARDIOPULMONARY TECHNOLOGIST 2-3 hours/day) Alcohol intake: never Comment: aware of trip hazard Patient Tobacco Use Status: Current everyday Tobacco user Smoking Start Date: 04/01/1964 Tobacco use type: Cigarette Cigarette Packs Per Day: 1.5 Cigarettes Per Day: 10 Years Smoked: 60 e-Cigarette/Vaping Use: Former Use Second Hand Smoke Exposure: No Advance Directives Date on File: 12/02/22 service: No Current occupational status: retired Sexual orientation: Straight/Heterosexual Cognitive needs: No Hearing needs: No Vision needs: Yes Female Reproductive History Menstrual Age of Menarche: 12 Physical Exam Vital Signs: Last Vital Signs Pulse 89 11/07/23 09:11 BP 102/62 11/07/23 09:11 BMI result Body Mass Index 36.4 Absence of Cushingoid features. Absence of acromegalic features. Neck exam reveals nl size thyroid about 15 gms. No thyroid nodules palpable. No carotid bruits present. Lungs diffuse wheezes expiratory. Heart S1 S2, Reg R/R. No M/R/ G. Skin exam reveals absence of vitiligo or acanthosis nigricans. Abdominal exam reveals Soft NT/ND with NA BS. No organomegaly present. Const Other: Thyroid gland is normal size weighs about 15 g . There are no palpable thyroid nodule Neck Other: . Extrem Other: Visual exam of foot performed. No ulcerations or open lesions. No onchomycosis, no callouses.Pulses 2 + distally Sensation intact to monofilament exam. Vibratory sensation sensed is intact with 128 Hz tuning fork Assessment & Plan Assessment & Plan (1) Multinodular thyroid: Comment: ([facility]) Code(s): E04.2 - Nontoxic multinodular goiter Category: Medical Plan: History of multinodular goiter status post FNA of right upper midpole nodule in 2019 with benign cytology. Recent ultrasound shows enlargement of the nodule. She appears to be clinically biochemically euthyroid. She saw the director of corporate communications at [facility] who decided not to biopsy the right thyroid nodule but to follow with a subsequent ultrasound Plan is have pt f/u with endo in November 2023 . Will repeat thyroid US prior . Orders: Orders US thyroid Today E04.2 - Nontoxic multinodular goiter Coding Level of Care Code Est Pt Level 3 (95365) Diagnoses Multinodular thyroid E04.2
== END 2023-11-07 10:04 | disposition home or self-care (01) ==
PROVIDERS: PCP Internal Medicine; Visit Provider Internal Medicine Endocrinology, Diabetes & Metabolism
DX: E04.2 Nontoxic multinodular goiter (principal)
CPT/HCPCS: 99213

== ENCOUNTER → 2023-11-07 09:07 | Outpatient (BNVA) | payer OTHER, SELFPAY | PROVIDERS: PCP Internal Medicine; Visit Provider Internal Medicine Endocrinology, Diabetes & Metabolism | DX: E04.2 Nontoxic multinodular goiter (principal) | CPT/HCPCS: 99212 ==

== ENCOUNTER 2023-11-10 09:36 | Outpatient (AMB) | payer OTHER, SELFPAY ==
[2023-11-10 09:51] VITALS: BP 102/50; PULSE 95; O2SAT 90; BMI 36.4
--- NOTE | 2023-11-10 09:51 | MHC.OFFVIS ---
Vital Signs 11/10/23 09:51 Height 5 ft 2 in Weight 199 lb BMI 36.4 BP 102/50 L Blood Pressure Location Lt brachial Position Sitting Pulse 95 Pulse Source Pulse Oximeter Pulse Oximetry (%) 90 L Oxygen Delivery Method Room Air Intake Visit Reasons: pre-op back surgery Intake Note: pt is here for pre-op for 11/[address] Bernal laminectomy Neonatal Nurse Practitioner Required: No Allergies aspirin [ASPIRIN] Allergy (Severe, Verified 11/10/23 10:06) GI bleed, stomach upset ibuprofen [IBUPROFEN] Allergy (Severe, Verified 11/10/23 10:06) GI Bleed, stomach upset valsartan [From Diovan] Allergy (Severe, Verified 11/10/23 10:06) hives ziprasidone [From Geodon] Allergy (Severe, Verified 11/10/23 10:06) RASH-PALPITATIONS azithromycin Allergy (Intermediate, Verified 11/10/23 10:06) facial swelling metformin [METFORMIN] Allergy (Intermediate, Verified 11/10/23 10:06) NAUSEA & VOMITING, GI upset cephalexin [From KEFLEX] Allergy (Unknown, Verified 11/10/23 10:06) can't remember lisinopril Allergy (Unknown, Verified 11/10/23 10:06) cough NSAIDS (Non-Steroidal Anti-Inflamma [NSAIDS (NON-STEROIDAL ANTI-INFLAMMA] Adverse Reaction (Severe, Verified 11/10/23 10:06) HX OF GI BLEED tramadol [Ultram] Adverse Reaction (Severe, Verified 11/10/23 10:06) GI upset sulfamethoxazole [From Bactrim] Adverse Reaction (Intermediate, Verified 11/10/23 10:06) Hives tiotropium [From Spiriva with HandiHaler] Adverse Reaction (Intermediate, Verified 11/10/23 10:06) Unknown trimethoprim [From Bactrim] Adverse Reaction (Intermediate, Verified 11/10/23 10:06) Hives Medication List - Last Reconciled 11/10/23 by Nicholas Richter MD albuterol sulfate 90 mcg/actuation 2 puffs inhalation Q4H PRN 60 days aripiprazole 20 mg PO DAILY atorvastatin 40 mg PO BEDTIME brimonidine 0.15% 1 drp ophthalmic (eye) BID cholecalciferol (vitamin D3) 50 mcg PO BEDTIME clonazepam 1 tab PO BID PRN cyanocobalamin (vitamin B-12) (Vitamin B-12) 500 mcg PO DAILY 90 days docusate sodium 100 mg PO BID [dressing stick As directed] [easy on sock aid As directed] empagliflozin (Jardiance) 25 mg PO DAILY esomeprazole magnesium 40 mg PO DAILY@0630 fenofibrate 160 mg PO DAILY fexofenadine 180 mg PO DAILY flash glucose sensor (FreeStyle Jill 2 Sensor kit) As directed fluticasone propion-salmeterol 115-21 mcg/actuation (Advair HFA) 2 puffs inhalation Q12H gabapentin 600 mg PO TID 30 days insulin aspart U-100 (Novolog FlexPen U-100 Insulin aspart) Novolog sliding scale 3 times daily (200-250: 4 units, 251-300: 6 units, 301 - 350: 8 units, >351: 10 units) insulin degludec (Tresiba FlexTouch U-100 insulin) 42 units subcut DAILY levalbuterol tartrate 45 mcg/actuation 2 puffs inhalation Q4-6H PRN levothyroxine 25 mcg PO DAILY@0600 liraglutide (Victoza 3-Jeanmarie) 1.8 mg (0.3 mL) subcut DAILY 90 days melatonin 9 mg PO BEDTIME netarsudil-latanoprost 0.02-0.005 % (Rocklatan) 1 drp ophthalmic (eye) BEDTIME [new lift chair As directed] pen needle, diabetic (Comfort EZ Pen [place]) As directed injects 3 X/day pioglitazone 15 mg PO BEDTIME quetiapine 50 mg PO BID PRN quetiapine 150 mg PO BEDTIME sennosides-docusate sodium 8.6-50 mg (Stimulant Laxative Plus) 2 tab-caps (2 x 8.6-50 mg) PO DAILY 90 days [Transfer wheelchair As directed] vit C,K-Kb-goutm-lutein-zeaxan 250-90-40-1 mg (PreserVision AREDS-2) 1 tab PO BID [WHEELCHAIR As directed] Do you need a note to return to daycare/school/sports/work: No HPI HPI pre-op back surgery: Details: Sofiya is 73 years old female with longstanding diagnosis of chronic obstructive pulmonary disease, and respiratory failure. She is a lifelong smoker, smoking 1 to 1 and half pack a day, and has not been able to quit. Now in preparation for her back surgery she has cut down to 10 cigarettes a day. For her chronic obstructive pulmonary disorder she uses Advair HFA 115-212 puffs b.i.d., and levalbuterol 2 puffs Q 4-6 hours only p.r.n. which is not very frequent. She does have nocturnal hypoxemia which is corrected by O2 2 L/minute. At present she is doing well without any acute exacerbation. Her cough is actually much less since she has cut down the number of cigarettes. She denies any wheezing attacks She does breathing exercises with pursed lip technique a few times every day. [facility] Medical History Uses wheelchair Wears dentures Supplemental oxygen dependent Slow to wake up after anesthesia Lumbar spinal stenosis Smoker Nicotine dependence, cigarettes, uncomplicated Dermatitis of vulva Acute respiratory failure with hypoxia Acute exacerbation of chronic obstructive pulmonary disease (COPD) Vulvar ulcer Recurrent major depression-severe Lower extremity pain Sialoadenitis Jaw pain العلي (dyspnea on exertion) Chest pain Osteopenia (~2015) Sinus tachycardia Pulmonary nodule Menopausal state Artificial menopause state Constipation Nocturnal hypoxemia COPD (chronic obstructive pulmonary disease) Spinal stenosis Depression Vitamin D deficiency Multinodular thyroid HLD (hyperlipidemia) T2DM (type 2 diabetes mellitus) (~2008) Surgical History S/P thyroid biopsy History of lithotripsy History of cardiac catheterization Hx of colonoscopy Hx of arthroscopy of left knee Hx of spinal fusion Hx of cholecystectomy Family History Father No problems noted. Mother Cancer Diabetes Social History Household Members: None Housing: Apartment Are you a primary career coach to a significant other at home: No Do you presently have visiting nurse or other home services: Yes (CONTACT CENTER SPECIALIST 2-3 hours/day) Alcohol intake: never Comment: aware of trip hazard Patient Tobacco Use Status: Current everyday Tobacco user Smoking Start Date: 04/01/1964 Tobacco use type: Cigarette Cigarette Packs Per Day: 0.5 Cigarettes Per Day: 10 Years Smoked: 60 e-Cigarette/Vaping Use: Former Use Second Hand Smoke Exposure: No Advance Directives Date on File: 12/02/22 service: No Current occupational status: retired Sexual orientation: Straight/Heterosexual Cognitive needs: No Hearing needs: No Vision needs: Yes Female Reproductive History Menstrual Age of Menarche: 12 Review of Systems Const All systems reviewed & are unremarkable except as noted in HPI and below Eyes Reports no additional complaints ENT Reports nasal congestion (Mild intermittent) Card Denies chest pain, Denies irregular heart rhythm and Denies leg edema Resp Reports as per HPI GI Reports constipation and Reports dyspepsia Reports no additional complaints Musc Reports abnormal gait (Gait impaired has to use walker), Reports back pain and Reports arthralgias Skin/Breast Reports system reviewed and no additional complaints, except as documented Neuro Reports abnormal gait (Gait impaired has to use walker) Psych Reports anxiety, Reports depression and Reports mood swings Endo Reports other (Being treated for diabetes mellitus) Physical Exam Const General: comfortable and no acute distress Orientation/consciousness: patient oriented x3 HEENT Head: Yes normal to inspection General nose exam: No nasal polyps present and No nasal discharge present Face and sinus: Yes sinuses nontender Mouth: oropharynx abnormals (Crowded, Mallampati class 4) Throat: Yes posterior oropharynx normal Eyes General: appearance normal, both eyes and all related structures Neck Neck: Yes normal visual inspection, Yes no lymphadenopathy, Yes trachea midline and Yes no JVD Thyroid: Thyroid normal Chest Chest palpation & inspection: normal inspection of the chest, normal palpation of entire chest wall and no tenderness Resp Other: Percussion note resonant, breath sounds are distant with prolonged expiratory phase. Lungs are clear today no audible wheezes rhonchi or crepitations. Cardio Palpation: normal PMI Rate: regular rate Rhythm: regular rhythm Heart sounds: no gallops and no murmurs GI Palpation (GI): Soft to palpation, nontender, No hepatosplenomegaly present and no masses Auscultation: normal bowel sounds Back/Spine/Pelvis Thoracic/Lumbar Spine: thoracic and lumbar spine normal to inspection and thoraco-lumbar ROM limited Skin General skin exam: no rashes or lesions noted Neuro General: patient oriented x3, No gait normal (Somewhat unsteady gait, uses walker) and no focal motor deficits Cranial nerves: Yes CN's II-XII intact bilaterally Extrem General: Yes normal to inspection, Yes no clubbing, cyanosis or edema and Yes no calf tenderness Psych Appearance: grossly normal and well kempt Speech and movement: Normal speech and movement present Results Reviewed Results Reviewed: Results of, last CT scan of chest on 09/05 and PET scan on 09/26 explained to the patient. So for her pulmonary nodules and ground-glass density in left lower lobe or benign. She would need a repeat CT scan at 6 months interval. Assessment & Plan Assessment & Plan (1) COPD (chronic obstructive pulmonary disease): Comment: Long-time chronic obstructive pulmonary disease, moderately severe,, controlled and stable. At present she has no active cough or wheezing. No contraindication to planned back surgery. Code(s): J44.9 - Chronic obstructive pulmonary disease, unspecified Category: Medical Plan: Continue Advair HFA 115-212 puffs b.i.d.. Use levalbuterol 2 puffs Q 4-6 hours only p.r.n. (2) Nocturnal hypoxemia: Comment: She has evidence of nocturnal hypoxemia since 2007 . That is when she had an OVERNIGHT SLEEP STUDY, showing only minimal degree of ADDIS, total sleep time AHI 5.5, But persistent nocturnal hypoxemia. She has been treated with oxygen at night 2 L/MT . Code(s): G47.34 - Idiopathic sleep related nonobstructive alveolar hypoventilation Category: Medical Plan: Continue O2 2 L/minute during sleep. Also may use O2 2 L/minute p.r.n. during the daytime if there is any respiratory distress. (3) Pulmonary nodule: Comment: Patient has multiple small pulmonary nodules unchanged from before Two ground-glass nodular densities in lower lobes are somewhat increased from before. Need to be followed up closely. She is being followed by, our Lung screening team. Last CT scan on 09/06/23 showed persistent density in the left lower lobe, , PET scan did not show any activity. Patient is being monitored closely. Code(s): R91.1 - Solitary pulmonary nodule Category: Medical Plan: Will repeat CT scan in 6 months from 09/26 Plan FROM PULMONARY POINT OF VIEW PATIENT IS CLEAR FOR BACK SURGERY. POSTOPERATIVELY WATCH FOR ANY RESPIRATORY DEPRESSION/FAILURE. PATIENT IS ADVISED TO CONTINUE USING HER MEDS REGULARLY. A STRESS DOSE OF SOLU-MEDROL, 40 MG IV PREOPERATIVELY, WILL BE HELPFUL. Coding Level of Care Code Est Pt Level 4 (07177) Diagnoses COPD (chronic obstructive pulmonary disease) J44.9 Nocturnal hypoxemia G47.34 Pulmonary nodule R91.1
== END 2023-11-10 10:14 | disposition home or self-care (01) ==
PROVIDERS: PCP Internal Medicine; Visit Provider Internal Medicine
DX: J44.9 Chronic obstructive pulmonary disease, unspecified (principal); G47.34 Idiopathic sleep related nonobstructive alveolar hypoventilation; R91.1 Solitary pulmonary nodule
CPT/HCPCS: 99214

== ENCOUNTER → 2023-11-10 09:36 | Outpatient (BNVA) | payer OTHER, SELFPAY | PROVIDERS: PCP Internal Medicine; Visit Provider Internal Medicine | DX: J44.9 Chronic obstructive pulmonary disease, unspecified (principal); G47.34 Idiopathic sleep related nonobstructive alveolar hypoventilation; R91.1 Solitary pulmonary nodule | CPT/HCPCS: 99212 ==

== ENCOUNTER 2023-11-16 05:54 | Day surgery (SDC) | payer OTHER, SELFPAY ==
[2023-11-01 13:13] VITALS: BP 109/55; PULSE 80; RESP 16; O2SAT 94; BMI 32.1
--- NOTE | 2023-11-01 13:38 | HO.ANESPROP2 ---
Documented by User: Ree Cabello NP 11/14/23 14:03 HPI - Anesthesia Eval Consult details Narrative: 73yo F for Right L3-4 Lumbar Decompression, 11/16/23 Pulmonary cleared 09/2023 Stable at PCP appt 09/2023 No recent illness No CP/SOB with minimal activity. العلي at baseline ADDIS. O2 QHS, no CPAP (cannot tolerate) COPD. Smoker ( Cutting back ). Rescue inhaler rare Nocturnal hypoxemia. 2L QHS. Will wear O2 prn for sat <85. Baseline 90-92% DM2. FBS ~95-100 Anesthesia Pre-Procedure Meds Is the patient on any of the following meds?: GLP1/DPP4 and SGLT2 Inhib PMFSH Active Problems Active Problems: All Active Problems Lumbar stenosis with neurogenic claudication (Acute) Dysuria (Acute) COVID-19 virus infection (Acute) Type 2 diabetes mellitus with hyperglycemia (Acute) Exercise hypoxemia (Acute) Hypothyroid (Acute) Sacroiliac joint pain (Acute) Postlaminectomy syndrome, lumbar (Acute) GERD (gastroesophageal reflux disease) (Acute) Vulvar lesion (Acute) Smoker (Acute) COPD (chronic obstructive pulmonary disease) (Acute) Nocturnal hypoxemia (Acute) Pulmonary nodule (Acute) Multinodular thyroid (Acute) HLD (hyperlipidemia) (Acute) Constipation (Acute) Recurrent major depression-severe (Acute) Depression (Acute) Vitamin D deficiency (Acute) Osteopenia (Acute ~2015) Spinal stenosis (Acute) Past Medical History Medical History Uses wheelchair Wears dentures Supplemental oxygen dependent Slow to wake up after anesthesia Lumbar spinal stenosis Smoker Nicotine dependence, cigarettes, uncomplicated Dermatitis of vulva Acute respiratory failure with hypoxia Acute exacerbation of chronic obstructive pulmonary disease (COPD) Vulvar ulcer Recurrent major depression-severe Lower extremity pain Sialoadenitis Jaw pain العلي (dyspnea on exertion) Chest pain Osteopenia (~2015) Sinus tachycardia Pulmonary nodule Menopausal state Artificial menopause state Constipation Nocturnal hypoxemia COPD (chronic obstructive pulmonary disease) Spinal stenosis Depression Vitamin D deficiency Multinodular thyroid HLD (hyperlipidemia) T2DM (type 2 diabetes mellitus) (~2008) Family History Family History Father No problems noted. Mother Cancer Diabetes Family history of problems with anesthesia: No Surgical History Surgical History History of cataract surgery S/P thyroid biopsy History of lithotripsy History of cardiac catheterization Hx of colonoscopy Hx of arthroscopy of left knee Hx of spinal fusion Hx of cholecystectomy History of Problems with Anesthesia: Yes (Long to wake ) Social History Social History Household Members: None Housing: Apartment Are you a primary care management specialist to a significant other at home: No Do you presently have visiting nurse or other home services: Yes (PODIATRY DOCTOR 2-3 hours/day) Alcohol intake: never Comment: aware of trip hazard Patient Tobacco Use Status: Current everyday Tobacco user Smoking Start Date: 04/01/1964 Tobacco use type: Cigarette Cigarette Packs Per Day: 0.5 Cigarettes Per Day: 10 Years Smoked: 60 Smoked in Last 30 Days: Yes e-Cigarette/Vaping Use: Former Use Second Hand Smoke Exposure: No Use of substances other than those prescribed or required for medical reasons: No Have you been hit, kicked, punched, or otherwise hurt by someone within the past year? If so, by whom?: No Are you DNR?: Yes Advance Directives: No Advance Directives Information Provided: Yes Advance Directives on File: Yes Advance Directives Date on File: 12/02/22 Recently lost weight without trying: No Nutrition Risks: Difficulty chewing service: No Current occupational status: retired Sexual orientation: Straight/Heterosexual Cognitive needs: No Hearing needs: No Vision needs: Yes Meds Allergies Allergy/AdvReac Type Severity Reaction Status Date / Time aspirin [ASPIRIN] Allergy Severe GI bleed, Verified 11/16/23 06:07 stomach upset ibuprofen [IBUPROFEN] Allergy Severe GI Bleed, Verified 11/16/23 06:07 stomach upset valsartan [From Diovan] Allergy Severe hives Verified 11/16/23 06:07 ziprasidone [From Geodon] Allergy Severe RASH-PALPIT Verified 11/16/23 06:07 ATIONS azithromycin Allergy Intermediate facial Verified 11/16/23 06:07 swelling metformin [METFORMIN] Allergy Intermediate NAUSEA & Verified 11/16/23 06:07 VOMITING, GI upset cephalexin [From KEFLEX] Allergy Unknown can't Verified 11/16/23 06:07 remember lisinopril Allergy Unknown cough Verified 11/16/23 06:07 NSAIDS (Non-Steroidal AdvReac Severe HX OF GI Verified 11/16/23 06:07 Anti-Inflamma BLEED [NSAIDS (NON-STEROIDAL ANTI-INFLAMMA] tramadol [Ultram] AdvReac Severe GI upset Verified 11/16/23 06:07 sulfamethoxazole AdvReac Intermediate Hives Verified 11/16/23 06:07 [From Bactrim] tiotropium AdvReac Intermediate Unknown Verified 11/16/23 06:07 [From Spiriva with HandiHaler] trimethoprim [From Bactrim] AdvReac Intermediate Hives Verified 11/16/23 06:07 Home Medications ?Medication ?Instructions ?Recorded ?Confirmed ?Last Taken ?Type clonazepam 0.5 mg tablet 1 tab PO BID PRN Anxiety 07/28/22 11/01/23 Unknown History quetiapine 25 mg tablet 50 mg PO BID PRN Anxiety 07/28/22 11/01/23 Unknown History melatonin 3 mg tablet 9 mg PO BEDTIME 09/28/22 11/01/23 10/02/22 History aripiprazole 20 mg tablet 20 mg PO DAILY 10/03/22 11/01/23 11/16/23 History fluticasone propionate 115 2 puff inhalation Q12H 10/21/22 11/01/23 11/16/23 History mcg-salmeterol 21 mcg/actuation HFA inhaler (Advair HFA) quetiapine 100 mg tablet 150 mg PO BEDTIME 10/04/23 11/01/23 Unknown History atorvastatin 40 mg tablet 40 mg PO BEDTIME 11/01/23 11/01/23 Unknown History brimonidine 0.15 % eye drops 1 drp ophthalmic (eye) BID 11/01/23 11/01/23 Unknown History insulin degludec 100 unit/mL (3 40 unit subcut DAILY 11/01/23 11/16/23 11/14/23 History mL) subcutaneous pen (Tresiba FlexTouch U-100 insulin) netarsudil 0.02 %-latanoprost 1 drp ophthalmic (eye) BEDTIME 11/01/23 11/01/23 Unknown History 0.005 % eye drops ([facility]) vit C 250 mg-vit E 90 mg-zinc 40 1 tab PO BID 11/01/23 11/01/23 Unknown History mg-copper 1 [id number] capsule (PreserVision AREDS-2) Exam Height,Weight and Vital Signs: Height 5 ft 5.5 in Weight 88.904 kg Last Vital Signs Pulse 80 11/01/23 13:13 Resp 16 11/01/23 13:13 BP 109/55 L 11/01/23 13:13 Pulse Ox 94 11/01/23 13:13 O2 Del Method Room Air 11/01/23 13:13 Pertinent Lab Results Pertinent Lab Results: Laboratory Tests 07/20/23 19:26 WBC 5.3 Hgb 13.3 Hct 41.0 Plt Count 208 Sodium 142 Potassium 4.2 Chloride 106 Carbon Dioxide 31 H BUN 11 Creatinine 0.77 Narrative Narrative: EKG 06/2023 Vent. Rate : 081 BPM Atrial Rate : 081 BPM P-R Int : 188 ms QRS Dur : 088 ms QT Int : 374 ms P-R-T Axes : 059 066 060 degrees QTc Int : 434 ms Normal sinus rhythm Normal ECG When compared with ECG of 03-OCT-2022 00:41, No significant change was found ECHO 2021 Conclusions: - The left ventricular systolic function is normal. The calculated ejection fraction is 57% by biplane method. - No obvious valvular pathology seen on this study. Airway Mallampati Class: III TM Dist: >3cm Neck ROM: Full Denture: Upper and Lower Loose/Missing/Broken Teeth: No Heart: RRR Lungs: CTAB Assessment and Plan Assessment Anesthesia Assessment: Anesthesia Plan Discussed, Smoking Cess. Discussed and PAT Visit Final Anesthetic Review Family History of Problems with Anesthesia: No History of Problems with Anesthesia: Yes (Long to wake ) Documented by User: Samantha Khan MD 11/16/23 08:52 HPI - Anesthesia Eval Consult details Narrative: 73yo F for Right L3-4 Lumbar Decompression, 11/16/23 Pulmonary cleared 09/2023 Stable at PCP appt 09/2023 No recent illness No CP/SOB with minimal activity. العلي at baseline ADDIS. O2 QHS, no CPAP (cannot tolerate) COPD. Smoker ( Cutting back ). Rescue inhaler rare Nocturnal hypoxemia. 2L QHS. Will wear O2 prn for sat <85. Baseline 90-92% DM2. FBS ~95-100 11/16/23: Preop sats post respiratory treatment in room air, 89%. Increased to 92% on 2L O2 Anesthesia Pre-Procedure Meds If yes to any meds - educate patient: Pt education - increased risk of aspiration and/or euvolemic DKA [facility] Past Medical History Medical History Uses wheelchair Wears dentures Supplemental oxygen dependent Slow to wake up after anesthesia Lumbar spinal stenosis Smoker Nicotine dependence, cigarettes, uncomplicated Dermatitis of vulva Acute respiratory failure with hypoxia Acute exacerbation of chronic obstructive pulmonary disease (COPD) Vulvar ulcer Recurrent major depression-severe Lower extremity pain Sialoadenitis Jaw pain العلي (dyspnea on exertion) Chest pain Osteopenia (~2015) Sinus tachycardia Pulmonary nodule Menopausal state Artificial menopause state Constipation Nocturnal hypoxemia COPD (chronic obstructive pulmonary disease) Spinal stenosis Depression Vitamin D deficiency Multinodular thyroid HLD (hyperlipidemia) T2DM (type 2 diabetes mellitus) (~2008) Family History Family History Father No problems noted. Mother Cancer Diabetes Family history of problems with anesthesia: No Surgical History Surgical History History of cataract surgery S/P thyroid biopsy History of lithotripsy History of cardiac catheterization Hx of colonoscopy Hx of arthroscopy of left knee Hx of spinal fusion Hx of cholecystectomy Social History Social History Household Members: None Housing: Apartment Are you a primary care management specialist to a significant other at home: No Do you presently have visiting nurse or other home services: Yes (PODIATRY DOCTOR 2-3 hours/day) Alcohol intake: never Comment: aware of trip hazard Patient Tobacco Use Status: Current everyday Tobacco user Smoking Start Date: 04/01/1964 Tobacco use type: Cigarette Cigarette Packs Per Day: 0.5 Cigarettes Per Day: 10 Years Smoked: 60 Smoked in Last 30 Days: Yes e-Cigarette/Vaping Use: Former Use Second Hand Smoke Exposure: No Use of substances other than those prescribed or required for medical reasons: No Have you been hit, kicked, punched, or otherwise hurt by someone within the past year? If so, by whom?: No Are you DNR?: Yes Advance Directives: No Advance Directives Information Provided: Yes Advance Directives on File: Yes Advance Directives Date on File: 12/02/22 Recently lost weight without trying: No Nutrition Risks: Difficulty chewing service: No Current occupational status: retired Sexual orientation: Straight/Heterosexual Cognitive needs: No Hearing needs: No Vision needs: Yes Meds Allergies Allergy/AdvReac Type Severity Reaction Status Date / Time aspirin [ASPIRIN] Allergy Severe GI bleed, Verified 11/16/23 06:07 stomach upset ibuprofen [IBUPROFEN] Allergy Severe GI Bleed, Verified 11/16/23 06:07 stomach upset valsartan [From Diovan] Allergy Severe hives Verified 11/16/23 06:07 ziprasidone [From Geodon] Allergy Severe RASH-PALPIT Verified 11/16/23 06:07 ATIONS azithromycin Allergy Intermediate facial Verified 11/16/23 06:07 swelling metformin [METFORMIN] Allergy Intermediate NAUSEA & Verified 11/16/23 06:07 VOMITING, GI upset cephalexin [From KEFLEX] Allergy Unknown can't Verified 11/16/23 06:07 remember lisinopril Allergy Unknown cough Verified 11/16/23 06:07 NSAIDS (Non-Steroidal AdvReac Severe HX OF GI Verified 11/16/23 06:07 Anti-Inflamma BLEED [NSAIDS (NON-STEROIDAL ANTI-INFLAMMA] tramadol [Ultram] AdvReac Severe GI upset Verified 11/16/23 06:07 sulfamethoxazole AdvReac Intermediate Hives Verified 11/16/23 06:07 [From Bactrim] tiotropium AdvReac Intermediate Unknown Verified 11/16/23 06:07 [From Spiriva with HandiHaler] trimethoprim [From Bactrim] AdvReac Intermediate Hives Verified 11/16/23 06:07 Home Medications ?Medication ?Instructions ?Recorded ?Confirmed ?Last Taken ?Type clonazepam 0.5 mg tablet 1 tab PO BID PRN Anxiety 07/28/22 11/01/23 Unknown History quetiapine 25 mg tablet 50 mg PO BID PRN Anxiety 07/28/22 11/01/23 Unknown History melatonin 3 mg tablet 9 mg PO BEDTIME 09/28/22 11/01/23 10/02/22 History aripiprazole 20 mg tablet 20 mg PO DAILY 10/03/22 11/01/23 11/16/23 History fluticasone propionate 115 2 puff inhalation Q12H 10/21/22 11/01/23 11/16/23 History mcg-salmeterol 21 mcg/actuation HFA inhaler (Advair HFA) quetiapine 100 mg tablet 150 mg PO BEDTIME 10/04/23 11/01/23 Unknown History atorvastatin 40 mg tablet 40 mg PO BEDTIME 11/01/23 11/01/23 Unknown History brimonidine 0.15 % eye drops 1 drp ophthalmic (eye) BID 11/01/23 11/01/23 Unknown History insulin degludec 100 unit/mL (3 40 unit subcut DAILY 11/01/23 11/16/23 11/14/23 History mL) subcutaneous pen (Tresiba FlexTouch U-100 insulin) netarsudil 0.02 %-latanoprost 1 drp ophthalmic (eye) BEDTIME 11/01/23 11/01/23 Unknown History 0.005 % eye drops ([facility]) vit C 250 mg-vit E 90 mg-zinc 40 1 tab PO BID 11/01/23 11/01/23 Unknown History mg-copper 1 [id number] capsule (PreserVision AREDS-2) Exam Height,Weight and Vital Signs: Height 5 ft 5.5 in Weight 88.904 kg Last Vital Signs Pulse 80 11/01/23 13:13 Resp 16 11/01/23 13:13 BP 109/55 L 11/01/23 13:13 Pulse Ox 94 11/01/23 13:13 O2 Del Method Room Air 11/01/23 13:13 Vital Signs Temp Pulse Resp BP Pulse Ox O2 Del Method O2 Flow Rate 11/16/23 07:15 93 Nasal Cannula 2 11/16/23 07:10 88 11/16/23 06:59 137/48 L 11/16/23 06:30 97.5 F 88 16 124/38 L 95 Room Air Pertinent Lab Results Pertinent Lab Results: Laboratory Tests 07/20/23 19:26 WBC 5.3 Hgb 13.3 Hct 41.0 Plt Count 208 Sodium 142 Potassium 4.2 Chloride 106 Carbon Dioxide 31 H BUN 11 Creatinine 0.77 Lab Results 11/16/23 Range/Units 06:29 POC Glucose 141 H (60-115) mg/dL Airway Mallampati Class: III TM Dist: >3cm Neck ROM: Full Denture: Upper and Lower Loose/Missing/Broken Teeth: Yes Assessment and Plan Assessment Anesthesia Assessment: Anesthesia Plan Discussed, Smoking Cess. Discussed, PAT Visit and Chart Reviewed Final Anesthetic Review Family History of Problems with Anesthesia: No NPO: Yes ASA Class: III Final Preanesthetic Review: No Changes in Pt Med Stat, Meds/Allgs Chart Reviewed, Consent Obtained/Reviewed, Anes Risks/Benef Reviewed and DNR Form (If Appl.) Patient Risk: Intermediate Procedure Risk: Intermediate Assessment/Block/Sedation in SS: Assess/Block/Sedation-SS Anesthetic Plan Anesthetic Plan: GA Disposition: Standard PACU
[2023-11-16] VITALS (18 sets, daily range): BP systolic 118–139; BP diastolic 38–81; PULSE 81–90; RESP 14–18; TEMP 36.3–36.7; O2SAT 91–100; BMI 32.8
--- NOTE | ~2023-11-16 | FL_ITS ---
EXAMINATION: XR FLUOROSCOPY WITH IMAGES CLINICAL INFORMATION: L3-L4 lumbar decompression right. COMPARISON: None available. TECHNIQUE: Fluoroscopy Supervised By: Dr. Bossman Bernal. Fluoroscopy Time: 2.1 seconds. Cumulative Dose: 1.3097 mGy. DAP: 0.4605 Gy-cm2. Images: 1. FINDINGS: Intraoperative fluoroscopy and spot films were performed during a procedure in the OR. Instruments are seen at the L3-L4 level. Please see Dr. Bossman Bernal' report for complete details. FL/FL guidance in OR IMPRESSION: Intraoperative fluoroscopy and spot films were obtained. Please see Dr. Bossman Bernal' report for complete details.
[2023-11-16 06:32] LABS: Glucose, Whole Blood 141 mg/dL (60-115)
[2023-11-16] MEDS: Lactated Ringers 1,000 ML 100 ML IVCONT (06:37)
[2023-11-16] MEDS: methocarbamoL 750 MG TABLET PO (06:39)
[2023-11-16] MEDS: Gabapentin 300 MG CAPSULE PO (06:39)
[2023-11-16] MEDS: vancomycin HCL 1,500 MG in 0.9 % Sodium Chloride 500 ML 333.33 MG IV (06:50)
--- NOTE | 2023-11-16 06:54 | MHC.SHP ---
Pre-Procedural Eval Section A - 24 Hr Update-Section A only Date of Service: 11/16/23 Section B - Complete if H&P > 30 days Chief Complaint: Spinal stenosis, lumbar region with neurogenic Allergies: Allergies Allergy/AdvReac Type Severity Reaction Status Date / Time aspirin [ASPIRIN] Allergy Severe GI bleed, Verified 11/16/23 06:07 stomach upset ibuprofen [IBUPROFEN] Allergy Severe GI Bleed, Verified 11/16/23 06:07 stomach upset valsartan [From Diovan] Allergy Severe hives Verified 11/16/23 06:07 ziprasidone [From Geodon] Allergy Severe RASH-PALPIT Verified 11/16/23 06:07 ATIONS azithromycin Allergy Intermediate facial Verified 11/16/23 06:07 swelling metformin [METFORMIN] Allergy Intermediate NAUSEA & Verified 11/16/23 06:07 VOMITING, GI upset cephalexin [From KEFLEX] Allergy Unknown can't Verified 11/16/23 06:07 remember lisinopril Allergy Unknown cough Verified 11/16/23 06:07 NSAIDS (Non-Steroidal AdvReac Severe HX OF GI Verified 11/16/23 06:07 Anti-Inflamma BLEED [NSAIDS (NON-STEROIDAL ANTI-INFLAMMA] tramadol [Ultram] AdvReac Severe GI upset Verified 11/16/23 06:07 sulfamethoxazole AdvReac Intermediate Hives Verified 11/16/23 06:07 [From Bactrim] tiotropium AdvReac Intermediate Unknown Verified 11/16/23 06:07 [From Spiriva with HandiHaler] trimethoprim [From Bactrim] AdvReac Intermediate Hives Verified 11/16/23 06:07 Review of Systems Sugical H&P ROS: Negative: Constitution, Cardiovascular, Respiratory, Neurological, Psychiatric, Hem-Onc, Allergic/Immunologic, Gastrointestinal, Genitourinary, Musculoskeletal, Integumentary, Endocrine and Eyes/Ears/Nose/Throat Exam Surgical H&P Exam: Not Evaluated: HEENT, Not Evaluated: Heart, Not Evaluated: Lungs, Not Evaluated: Extremities, Not Evaluated: Abdomen, Not Evaluated: Skin and Not Evaluated: Neurological Plan Diagnosis/Plan: Unchanged I have reviewed the history and physical and performed a pertinent physical examination on my patient. No changes have occurred unless specified. Plan remains the same, right-sided L3-4 lumbar decompression Time Spent With Patient Time: Total time managing care of this patient today _7___ minutes.
[2023-11-16] MEDS: Albuterol Sulfate (0.083%) 2.5 MG/3 ML VIAL.NEB INHALE (07:01)
--- NOTE | 2023-11-16 08:54 | PM.DS ---
DS: Providers Provider Date of Service: 11/16/23 Primary care physician: Chiquis Grajeda MD DS: Summary Time Attestation Discharge Coordination Time (in mins): 15 Quality: Safe Use of Opioids Does Pt have an Active Cancer Diagnosis on the Problem List?: No Quality: Stroke Does the patient have a stroke diagnosis?: No Physical Exam Vital Signs: Vital Signs: Last Vital Signs Temp 97.5 F 11/16/23 06:30 Pulse 88 11/16/23 07:10 Resp 16 11/16/23 06:30 BP 137/48 L 11/16/23 06:59 Pulse Ox 93 11/16/23 07:15 O2 Del Method Nasal Cannula 11/16/23 07:15 O2 Flow Rate 2 11/16/23 07:15 BMI result Body Mass Index 32.8 DS: Data Data Completed and Pending Labs on day of discharge: Laboratory Results - last 24 hr 11/16/23 06:29 POC Glucose 141 H Discharge Plan Discharge Patient Disposition: Home, Self-Care Referrals: Chiquis Grajeda MD [Primary Care Provider] - 1 Week Discharge Medications: New oxycodone 5 mg tablet 5 mg PO Q6H PRN (Reason: severe pain (scale score 7-10)) Qty: 30 0RF Rx Instructions: Partial Fill upon patient request. doxycycline hyclate 100 mg capsule 100 mg PO BID 5 Days Qty: 10 0RF Rx Instructions: Take with food twice daily Continued (DME) new lift chair See Rx Instructions .Route .MEDSUPPLY Qty: 1 0RF Rx Instructions: As directed (DME) pen needle, diabetic [Comfort EZ Pen [place]] 32 gauge x 5/16 needle See Rx Instructions .Route Qty: 100 4RF Rx Instructions: As directed injects 3 X/day levothyroxine 25 mcg tablet 25 mcg PO DAILY@0600 Qty: 90 3RF Victoza 3-Jeanmarie 0.6 mg/0.1 mL (18 mg/3 mL) pen injector 1.8 mg subcut DAILY 90 Days Qty: 27 11RF insulin aspart U-100 [Novolog FlexPen U-100 Insulin] 100 unit/mL (3 mL) insulin pen See Rx Instructions subcut TID PRN (Reason: Hyperglycemia) Qty: 30 6RF Rx Instructions: Novolog sliding scale 3 times daily (200-250: 4 units, 251-300: 6 units, 301 - 350: 8 units, >351: 10 units) cholecalciferol (vitamin D3) 50 mcg (2,000 unit) tablet 50 mcg PO BEDTIME Qty: 90 3RF (DME) easy on sock aid See Rx Instructions .Route .MEDSUPPLY Qty: 1 0RF Rx Instructions: As directed (DME) dressing stick See Rx Instructions .Route .MEDSUPPLY Qty: 1 0RF Rx Instructions: As directed pioglitazone 15 mg tablet 15 mg PO BEDTIME Qty: 30 4RF cyanocobalamin (vitamin B-12) [Vitamin B-12] 500 mcg tablet 500 mcg PO DAILY 90 Days Qty: 90 3RF (DME) WHEELCHAIR See Rx Instructions .Route .MEDSUPPLY Qty: 1 0RF Rx Instructions: As directed (DME) FreeStyle Jill 2 Sensor Kit See Rx Instructions .ROUTE .MEDSUPPLY Qty: 6 3RF Rx Instructions: As directed Jardiance 25 mg tablet 25 mg PO DAILY Qty: 28 1RF fexofenadine 180 mg tablet 180 mg PO DAILY Qty: 90 0RF sennosides-docusate sodium [Stimulant Laxative Plus] 8.6-50 mg tablet 2 tab-cap PO DAILY 90 Days Qty: 180 0RF esomeprazole magnesium 40 mg capsule,delayed release(DR/EC) 40 mg PO DAILY@0630 Qty: 28 0RF fenofibrate 160 mg tablet 160 mg PO DAILY Qty: 30 0RF (DME) Transfer wheelchair See Rx Instructions .Route .MEDSUPPLY Qty: 1 0RF Rx Instructions: As directed quetiapine 25 mg tablet 50 mg PO BID PRN (Reason: Anxiety) clonazepam 0.5 mg tablet 1 tab PO BID PRN (Reason: Anxiety) melatonin 3 mg tablet 9 mg PO BEDTIME atorvastatin 40 mg tablet 40 mg PO BEDTIME insulin degludec [Tresiba FlexTouch U-100] 100 unit/mL (3 mL) insulin pen 40 unit subcut DAILY brimonidine 0.15 % drops 1 drp ophthalmic (eye) BID Rocklatan 0.02-0.005 % drops 1 drp ophthalmic (eye) BEDTIME PreserVision AREDS-2 250-90-40-1 mg Capsule 1 tab PO BID aripiprazole 20 mg tablet 20 mg PO DAILY docusate sodium 100 mg capsule 100 mg PO BID Qty: 180 3RF gabapentin 600 mg tablet 600 mg PO TID 30 Days Qty: 90 6RF albuterol sulfate 90 mcg/actuation HFA aerosol inhaler 2 puff inhalation Q4H PRN (Reason: Shortness Of Breath) 60 Days Qty: 8.5 2RF fluticasone propion-salmeterol [Advair HFA] 115-21 mcg/actuation HFA aerosol inhaler 2 puff inhalation Q12H levalbuterol tartrate 45 mcg/actuation HFA aerosol inhaler 2 puff inhalation Q4-6H PRN (Reason: shortness of breath) Qty: 1 6RF Rx Instructions: 1-2 puffs every 4-6 hours as needed for shortness of breath quetiapine 100 mg tablet 150 mg PO BEDTIME Discharge Orders: Discharge Order (Routine); Ordered 11/16/23 Ordered By: Adebayo Lacy Diet: Advance to usual diet Activity on Discharge: As tolerated Activity Restrictions/Additional Instructions: After your spinal surgery we ask you to observe the following restrictions/guidelines: Activity: It is normal to feel some discomfort as you increase your activity, but that will improve with time. We ask you avoid heavy lifting or acitivities that cause pain. As a general rule, 8lbs is a safe limit for lifting right after surgery. Walk as much as you feel comfortable but not to exhaustion. You will feel extra tired the first few days after surgery. Stay well hydrated. It is OK to walk up and down stairs You may return to driving when you are off narcotics (such as vicodin, oxycodone, dilaudid, etc), and you are back to normal functional capacity. If you have any concerns please check with office before driving. Return to work is specific to each patient and each surgery, so please speak with your doctor/PA at first follow up. Please bring paperwork such as FMLA at that time if you need it filled out. Medications: You have been given a 5 day course of prophylactic antibiotics. Please take these as directed (twice daily) with food. We will give you a short supply of narcotics after surgery (usually one weeks worth). If you need more please call the office but do not use more than prescribed. You will need to give our office 48 hours notice if you need narcotics refilled and we do not fill narcotics on weekends or evenings. If you are on a narcotic, it is a good idea to take a stool softener such as colace or senna to avoid constipation If you take blood thinner such as aspirin, Plavix, Coumadin, Effient, Eliquis etc for conditions such as Afib, DVT, Pulmonary embolus, coronary disease, stents etc please speak with your surgeon about specific details as to when you can resume these medications. You can resume NSAIDs on post op day 1 (eg: Motrin, Naproxen, etc). Follow up: Please call the office, , after surgery to arrange a 3 week follow up for wound check. Wound Care: You may remove your dressing on the first day after surgery. ?You may ?leave open to air. Please do not remove the steri strips underneath. they will fall off on their own in one week. IT IS NORMAL FOR THE WOUND TO OOZE OR BE BLOODY FOR A FEW DAYS AFTER SURGERY. ?IF THIS HAPPENS JUST PLACE NEW DRESSING OVER IT TO AVOID STAINING CLOTHES. You may shower on post op day # 1 We ask that you do not let the water soak the wound. If it does get wet, just towel dry lightly. Please do not scrub your incision or place any type of chemical/ointment on the wound. No tub baths, pools or jacuzzis for one month. If you have any leaking or redness from your wound, or fevers, please call the office. Print Language: [place]
--- NOTE | 2023-11-16 08:56 | P.OP_ITS ---
Operative Note Operative Note Date of Service: 11/16/23 Narrative: Preoperative Diagnosis: Right L3-4 spinal stenosis/lateral recess stenosis/neural foraminal stenosis Operation: Right L3-4 Laminotomy, Partial facetectomy and foraminotomy with use of microscope Consent Informed Consent was obtained for this operation. I have explained the nature, purpose and benefits of the operation. I have discussed the risks and benefit of the operation including possible complications or adverse events with patient/family. Alternative(s) were discussed with the patient with their relative benefits and risks as well as the consequences of not accepting the operation were included in obtaining consent. Surgeon: MILKA GIBSON MD, PHD Procedure Assisted By: Adebayo Meneses Description of Procedure This 73-year-old female suffering from right unilateral neurogenic claudication caused by lateral recess stenosis L3-4. The patient was offered a decompression. The procedure complications were explained. The patient was consented. The patient was brought to the operating room and endotracheally intubated. The patient was turned in prone position on the Alexis frame. Prep and drape was done followed by timeout. The Physician ice cream freezer assistant provided access. A mid lumbar incision was made followed by release of the paravertebral muscle on the right side to expose the right L3-4 lamina and facet joints. An intraoperative x-ray was obtained to confirm the correct level. The microscope was brought in. I took over the procedure. The high-speed drill was used to do a L3-4 laminotomy until flavum ligament was reached. A #2 Kerrison was used to expand the laminotomy near flush to the pedicles and to include a partial facetectomy. The flavum ligament was opened and resected with a #3 Kerrison to decompress the underlying thecal sac. The flavum ligament was removed to decompress the lateral recess and the exiting L4 nerve root. A long nerve hook could be easily passed along the medial side of the pedicle as a sign of adequate decompression. The microscope was removed. Hemostasis was done. The physician ice cream freezer assistant close the Incision in 2 layers. Steri-Strips were used to approximate incision. An OpSite with Tegaderm was used to cover the incision. All sponge needle counts were correct. Patient was extubated and transported in stable is to recovery room. Anesthesia: General Estimated Blood Loss (ml): Minimal Complications: None Duration of Surgery: Under 60 Minutes Postoperative Plan: Discharge to home
[2023-11-16] MEDS: fentaNYL citrate/PF 100 MCG/2 ML VIAL 25 MCG IVPUSH ×2 (09:24→09:54)
--- NOTE | 2023-11-16 11:01 | PC.NURSE ---
Patient oxygen saturation still between 87-93% on room air. Dr. Bernal and JAQUAN Fiore at bedside. Dr. Bernal and Dr. Luis had conversation and patient is okay to be discharged at this time. Dr. Bernal, JAQUAN Fiore and Dr. Luis aware of oxygen saturation and that patient does live alone. They are aware that patient only wears oxygen at night. Dr. Bernal and Dr. Luis cleared patient to be discharged home at this time.
== END 2023-11-16 12:26 | disposition home or self-care (01) ==
PROVIDERS: PCP Internal Medicine; Visit Provider Neurological Surgery
PROC: (CPT 63047; principal; 2023-11-16 07:30)
DX: M48.062 Spinal stenosis, lumbar region with neurogenic claudication (principal); E11.9 Type 2 diabetes mellitus without complications; E78.5 Hyperlipidemia, unspecified; R09.02 Hypoxemia; E55.9 Vitamin D deficiency, unspecified; J44.9 Chronic obstructive pulmonary disease, unspecified; F33.2 Major depressive disorder, recurrent severe without psychotic features; M96.1 Postlaminectomy syndrome, not elsewhere classified; F17.210 Nicotine dependence, cigarettes, uncomplicated; Z79.4 Long term (current) use of insulin; Z79.84 Long term (current) use of oral hypoglycemic drugs; Z79.82 Long term (current) use of aspirin; Z79.899 Other long term (current) drug therapy; Z79.02 Long term (current) use of antithrombotics/antiplatelets
CPT/HCPCS: 63047; 82947; 94640; J0131; J1100; J2405; J2704; J3010; J3371

== ENCOUNTER → 2023-11-16 05:54 | Outpatient (BNV) | payer OTHER, SELFPAY | PROVIDERS: PCP Internal Medicine; Visit Provider Neurological Surgery | DX: M48.062 Spinal stenosis, lumbar region with neurogenic claudication (principal) | CPT/HCPCS: 63047 ==

== ENCOUNTER 2023-12-08 09:17 | Outpatient (AMB) | payer OTHER, SELFPAY ==
--- NOTE | 2023-12-08 09:39 | HO.SPINEOV ---
Intake Visit Reasons: 1st post op Intake Note: Ms. Rivas is here today for her 1st post-op. 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: No Allergies aspirin [ASPIRIN] Allergy (Severe, Verified 11/16/23 06:07) GI bleed, stomach upset ibuprofen [IBUPROFEN] Allergy (Severe, Verified 11/16/23 06:07) GI Bleed, stomach upset valsartan [From Diovan] Allergy (Severe, Verified 11/16/23 06:07) hives ziprasidone [From Geodon] Allergy (Severe, Verified 11/16/23 06:07) RASH-PALPITATIONS azithromycin Allergy (Intermediate, Verified 11/16/23 06:07) facial swelling metformin [METFORMIN] Allergy (Intermediate, Verified 11/16/23 06:07) NAUSEA & VOMITING, GI upset cephalexin [From KEFLEX] Allergy (Unknown, Verified 11/16/23 06:07) can't remember lisinopril Allergy (Unknown, Verified 11/16/23 06:07) cough NSAIDS (Non-Steroidal Anti-Inflamma [NSAIDS (NON-STEROIDAL ANTI-INFLAMMA] Adverse Reaction (Severe, Verified 11/16/23 06:07) HX OF GI BLEED tramadol [Ultram] Adverse Reaction (Severe, Verified 11/16/23 06:07) GI upset sulfamethoxazole [From Bactrim] Adverse Reaction (Intermediate, Verified 11/16/23 06:07) Hives tiotropium [From Spiriva with HandiHaler] Adverse Reaction (Intermediate, Verified 11/16/23 06:07) Unknown trimethoprim [From Bactrim] Adverse Reaction (Intermediate, Verified 11/16/23 06:07) [facility] Assessment & Plan Assessment & Plan (1) Status post lumbar spine surgery for decompression of spinal cord: Code(s): Z98.890 - Other specified postprocedural states Category: Surgical Plan Procedure: Right L3-4 Laminotomy, Partial facetectomy and foraminotomy Sofiya comes in today for her 1st postoperative visit. She reports she is very satisfied with the surgery and feels much better than she did pre-operatively. The patient reports she is up walking around with her walker and completing the majority of her ADLs. She reports that she no longer suffers from her right-sided shooting radiculopathy. She still reports mild pain, with good relief with pain medication. Sofiya-several questions regarding postoperative healing course. She inquired whether or not we can order her a specialty tub for her home. I advised her to follow up with her primary care physician regarding this as I have never encountered it previously, and do not believe we can order this. I answered the rest of her questions to the best of my ability. No new neurological deficits. Patient is able to ambulate well will walker, rises from a seated position without difficulty. Incision site is closed, well healing, with no signs of drainage. We will follow-up with the patient in 6 weeks for their 2nd postoperative visit. I sent in a partial refill prescription for oxycodone for the patient per request. Adebayo Bernal MD,PhD [facility] Medications: Changed From oxycodone 1-2 tabs po 6 hours prn pain; Partial Fill upon patient request. 5 mg PO Q6H PRN 30 tabs 0RF pain To oxycodone 1-2 tabs po 6 hours prn pain; Partial Fill upon patient request. 5 mg PO BID PRN 14 tabs 0RF severe pain (scale score 7-10) Coding Level of Care Code Global (66759) Diagnoses Status post lumbar spine surgery for decompression of spinal cord Z98.890
== END 2023-12-08 10:16 | disposition home or self-care (01) ==
PROVIDERS: PCP Internal Medicine; Visit Provider Physician Assistant
DX: Z98.890 Other specified postprocedural states (principal)
CPT/HCPCS: 99024

== ENCOUNTER → 2023-12-08 09:17 | Outpatient (BNVA) | payer OTHER, SELFPAY | PROVIDERS: PCP Internal Medicine; Visit Provider Physician Assistant | DX: Z48.89 Encounter for other specified surgical aftercare (principal); Z98.890 Other specified postprocedural states | CPT/HCPCS: 99212 ==

== ENCOUNTER 2023-12-15 10:16 | Outpatient (REF) | payer OTHER, SELFPAY ==
--- NOTE | ~2023-12-15 | US_ITS ---
EXAMINATION: US THYROID CLINICAL INFORMATION: Nontoxic multinodular goiter. COMPARISON: Ultrasound soft tissue head/neck thyroid dated 01/27/2023 and 02/18/2022. TECHNIQUE: Linear transducer grayscale and color Doppler examination with attention to the region of the thyroid. FINDINGS: SIZE: Measurements of the thyroid lobes and nodules are given in sagittal, anteroposterior and transverse dimensions respectively. Right Thyroid Lobe: 6.2 x 3.0 x 2.6 cm, volume 25.3 mL. Previously 5.8 x 2.6 x 2.4 cm, volume 18.9 mL. Parenchyma: The gland echotexture is homogeneous. Thyroid vascularity is normal. Left Thyroid Lobe: 4.2 x 1.7 x 1.4 cm, volume 5.2 mL. Previously 4.7 x 1.6 x 1.3 cm, volume 5.1 mL. Parenchyma: The gland echotexture is homogeneous. Thyroid vascularity is normal. Isthmus: 0.7 cm in maximum AP dimension. Previously 0.4 cm. Estimated total number of nodules greater than or equal to 1 cm: 1. Program Attendant nodules are described as follows: 1. Location: Right superior/mid. Size: 2.9 x 2.2 x 2.2 cm, volume 7.3 mL. Previously: 2.9 x 2.2 x 1.9 cm, volume 6.2 mL on 01/27/2023 and 2.3 x 2.0 x 1.7 cm, volume 4.1 mL on 02/18/2022 Nodule characteristics: Composition: Solid (2). Echogenicity: Isoechoic (1). Shape: Taller than wide (3). Margins: Ill-defined (0). Echogenic Foci: Punctate echogenic foci (3). ACR TI-RADS total points: 9 Previous: 9 ACR TI-RADS category: 5 Previous: 5 Significant change in size (>/= 20% in 2 dimensions and minimal increase of 2 mm or 50% or greater increase in volume): Yes Change in features: No Change in ACR TI-RADS risk category: No 2. Location: Right inferior. Size: 0.5 x 0.5 x 0.6 cm, volume 0.1 mL. Previously: 0.6 x 0.4 x 0.6 cm, volume 0.1 mL. Nodule characteristics: Composition: Solid (2). Echogenicity: Very hypoechoic (3). Shape: Not taller than wide (0). Margins: Smooth (0). Echogenic Foci: Punctate echogenic foci (3). ACR TI-RADS total points: 8 Previous: 7 ACR TI-RADS category: 5 Previous: 5 Significant change in size (>/= 20% in 2 dimensions and minimal increase of 2 mm or 50% or greater increase in volume): No Change in features: Yes Change in ACR TI-RADS risk category: No 3. Location: Left superior. Size: 0.6 x 0.2 x 0.3 cm, volume 0.02 mL. Previously: 0.4 x 0.2 x 0.4 cm, volume 0.01 mL. Nodule characteristics: Composition: Solid (2). Echogenicity: Isoechoic (1). Shape: Not taller than wide (0). Margins: Smooth (0). Echogenic Foci: None (0). ACR TI-RADS total points: 3 Previous: 3 ACR TI-RADS category: 3 Previous: 3 Significant change in size (>/= 20% in 2 dimensions and minimal increase of 2 mm or 50% or greater increase in volume): Yes Change in features: No Change in ACR TI-RADS risk category: No NODES: No lymphadenopathy is seen in the tissue surrounding the thyroid gland. US/US thyroid IMPRESSION: Enlarged, multinodular thyroid gland. 2.9 x 2.2 x 1.9 cm, volume 6.2 mm right mid to upper TR5 thyroid nodule meets criteria for biopsy and has increased in size over time measuring 2.3 x 2.0 x 1.7 cm, volume 4.1 mL on 02/18/2022. Correlation with prior biopsy results and clinical exam recommended to determine further management including possible repeat biopsy. ACR TI-RADS RECOMMENDATION REFERENCE: Ultrasound-guided fine-needle aspiration, follow up ultrasound, no further followup. * TR1 (0 point) and TR2 (2 points): No FNA or followup * TR3 (3 points): FNA if more than or equal to 2.5 cm in maximum dimension, follow up ultrasound in 1, 3 and 5 years if 1.5 to 2.4 cm in maximum dimension. * TR4 (4-6 points): FNA if more than or equal to 1.5 cm in maximum dimension, follow up ultrasound in 1, 2, 3 and 5 years if 1 to 1.4 cm in maximum dimension. * TR5 (more than or equal to 7 points): FNA if more than or equal to 1 cm in maximum dimension, follow up ultrasound every year for 5 years if 0.5 to 0.9 cm in maximum dimension. * TR3, TR4 or TR5 nodules that are below the size threshold for follow up receive no followup.
== END 2023-12-15 10:17 | disposition home or self-care (01) ==
LOC: HO.US 10:16
PROVIDERS: PCP Internal Medicine; Visit Provider Internal Medicine Endocrinology, Diabetes & Metabolism
DX: E04.2 Nontoxic multinodular goiter (principal)
CPT/HCPCS: 76536

== ENCOUNTER 2023-12-23 10:01 | Outpatient (AMB) | payer OTHER, SELFPAY ==
--- NOTE | 2023-12-23 10:08 | MHC.PC.OV ---
Vital Signs 12/23/23 10:11 Height 5 ft 5.5 in Weight 195 lb 5.273 oz BMI 32.0 BP 124/70 Blood Pressure Location Lt brachial Position Sitting Pulse 98 Pulse Source Pulse Oximeter Pulse Oximetry (%) 92 Oxygen Delivery Method Room Air Intake Visit Reasons: hdf back surgery Allergies aspirin [ASPIRIN] Allergy (Severe, Verified 12/23/23 10:23) GI bleed, stomach upset ibuprofen [IBUPROFEN] Allergy (Severe, Verified 12/23/23 10:23) GI Bleed, stomach upset valsartan [From Diovan] Allergy (Severe, Verified 12/23/23 10:23) hives ziprasidone [From Geodon] Allergy (Severe, Verified 12/23/23 10:23) RASH-PALPITATIONS azithromycin Allergy (Intermediate, Verified 12/23/23 10:23) facial swelling metformin [METFORMIN] Allergy (Intermediate, Verified 12/23/23 10:23) NAUSEA & VOMITING, GI upset cephalexin [From KEFLEX] Allergy (Unknown, Verified 12/23/23 10:23) can't remember lisinopril Allergy (Unknown, Verified 12/23/23 10:23) cough NSAIDS (Non-Steroidal Anti-Inflamma [NSAIDS (NON-STEROIDAL ANTI-INFLAMMA] Adverse Reaction (Severe, Verified 12/23/23 10:23) HX OF GI BLEED tramadol [Ultram] Adverse Reaction (Severe, Verified 12/23/23 10:23) GI upset sulfamethoxazole [From Bactrim] Adverse Reaction (Intermediate, Verified 12/23/23 10:23) Hives tiotropium [From Spiriva with HandiHaler] Adverse Reaction (Intermediate, Verified 12/23/23 10:23) Unknown trimethoprim [From Bactrim] Adverse Reaction (Intermediate, Verified 12/23/23 10:23) Hives doxycycline Adverse Reaction (Mild, Verified 12/23/23 10:23) Stomach Upset Medication List - Last Reconciled 12/23/23 by Barbara Draper PA-C acetaminophen 1,000 mg (2 x 500 mg) PO TID PRN albuterol sulfate 90 mcg/actuation 2 puffs inhalation Q4H PRN 60 days aripiprazole 20 mg PO DAILY atorvastatin 40 mg PO BEDTIME brimonidine 0.15% 1 drp ophthalmic (eye) BID cholecalciferol (vitamin D3) 50 mcg PO BEDTIME clonazepam 1 tab PO BID PRN cyanocobalamin (vitamin B-12) (Vitamin B-12) 500 mcg PO DAILY 90 days [dressing stick As directed] [easy on sock aid As directed] empagliflozin (Jardiance) 25 mg PO DAILY esomeprazole magnesium 40 mg PO DAILY@0630 fenofibrate 160 mg PO DAILY fexofenadine 180 mg PO DAILY flash glucose sensor (FreeStyle Jill 2 Sensor kit) As directed fluticasone propion-salmeterol 115-21 mcg/actuation (Advair HFA) 2 puffs inhalation Q12H gabapentin 600 mg PO TID 30 days insulin aspart U-100 (Novolog FlexPen U-100 Insulin aspart) Novolog sliding scale 3 times daily (200-250: 4 units, 251-300: 6 units, 301 - 350: 8 units, >351: 10 units) insulin degludec (Tresiba FlexTouch U-100 insulin) 40 units (0.4 mL) subcut DAILY levalbuterol tartrate 45 mcg/actuation 2 puffs inhalation Q4-6H PRN levothyroxine 25 mcg PO DAILY@0600 liraglutide (Victoza 3-Jeanmarie) 1.8 mg (0.3 mL) subcut DAILY 90 days netarsudil-latanoprost 0.02-0.005 % (Rocklatan) 1 drp ophthalmic (eye) BEDTIME [new lift chair As directed] oxycodone 5 mg PO BID PRN pen needle, diabetic (Comfort EZ Pen Elizabeth) As directed injects 3 X/day pioglitazone 15 mg PO BEDTIME quetiapine 50 mg PO BID PRN quetiapine 150 mg PO BEDTIME sennosides-docusate sodium 8.6-50 mg (Stimulant Laxative Plus) 2 tab-caps (2 x 8.6-50 mg) PO DAILY 90 days [Transfer wheelchair As directed] vit C,J-Yv-ucaix-lutein-zeaxan 250-90-40-1 mg (PreserVision AREDS-2) 1 tab PO BID [WHEELCHAIR As directed] Tobacco use date assessed: 10/19/23 Fall risk assessment: No Falls in past year Last assessed Fall Risk: 12/23/23 Dental Screening Dental Screen Date: 07/13/23 HPI hdf back surgery HPI Details 73 year old female smoker with history of diabetes mellitus, COPD, hypothyroidism, hypercholesterolemia, GERD, and depression last seen September [address] Grajeda coming in today for follow up post op right L3-4 Laminotomy, Partial facetectomy and foraminotomy with Dr. Bernal 11/16/23. She was seen post op by spine center 12/08/23 doing well with reduced pain and increased ability to perform ADLs, continued on pain medication. Followed by endocrinology for multinodular goiter s/p FNA 2016 revealing benign cytology. Recent US shows enlargement of nodule. Will follow up with endocrine November 2023 after? repeat US 12/15/23. Seen by Pulmonolgy October 2023 for COPD and clearance for back surgery, considered to be stable. Reporting some soreness from the procedure in her lower back and over the incision area, with improvement in radiculopathy. Denies fevers or chills, and any pain or weakness in the back Patient is able to ambulate with a walker at home and able to stand from a seated position. Is doing well with ADLs but still requires some help and is getting VNA services 6 days a week. Reports some difficulty sleeping and is following with [facility] with next follow-up January 02. [facility] Medical History (Updated 12/23/23 @ 10:54 by Barbara Draper PA-C) Uses wheelchair Wears dentures Supplemental oxygen dependent Slow to wake up after anesthesia Lumbar spinal stenosis Smoker Nicotine dependence, cigarettes, uncomplicated Dermatitis of vulva Acute respiratory failure with hypoxia Acute exacerbation of chronic obstructive pulmonary disease (COPD) Vulvar ulcer Recurrent major depression-severe Lower extremity pain Sialoadenitis Jaw pain العلي (dyspnea on exertion) Chest pain Osteopenia (~2015) Sinus tachycardia Pulmonary nodule Menopausal state Artificial menopause state Constipation Nocturnal hypoxemia COPD (chronic obstructive pulmonary disease) Spinal stenosis Depression Vitamin D deficiency Multinodular thyroid HLD (hyperlipidemia) T2DM (type 2 diabetes mellitus) (~2008) Surgical History History of cataract surgery S/P thyroid biopsy History of lithotripsy History of cardiac catheterization Hx of colonoscopy Hx of arthroscopy of left knee Hx of spinal fusion Hx of cholecystectomy Family History Father No problems noted. 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) Alcohol intake: never Comment: aware of trip hazard Patient Tobacco Use Status: Current everyday Tobacco user Smoking Start Date: 04/01/1964 Tobacco use type: Cigarette Cigarette Packs Per Day: 0.5 Cigarettes Per Day: 10 Years Smoked: 60 e-Cigarette/Vaping Use: Former Use Second Hand Smoke Exposure: No Advance Directives Date on File: 12/02/22 service: No Current occupational status: retired Sexual orientation: Straight/Heterosexual Cognitive needs: No Hearing needs: No Vision needs: Yes Female Reproductive History Menstrual Age of Menarche: 12 Questionnaire Thrive Questionnaire Date Thrive assessed: 07/13/23 GABRIELE-7 AMB Questionnaire GABRIELE-7 Date GABRIELE - 7 assessed: 07/13/23 Source: Developed by Drs. Masoud Gomez, Desi Mabry, George Cates and colleagues, with an educational zoila from [employer]. Review of Systems Const All systems reviewed & are unremarkable except as noted in HPI and below Denies body aches, Denies chills, Reports difficulty sleeping and Denies fever(s) Eyes Reports no additional complaints ENT Reports no additional complaints Card Denies chest pain, Denies irregular heart rhythm, Denies leg edema and Denies dyspnea Resp Denies chest congestion, Denies cough and Denies dyspnea GI Reports no additional complaints Reports no additional complaints Musc Reports abnormal gait (Gait impaired has to use walker) and Reports back pain Skin/Breast Reports system reviewed and no additional complaints, except as documented Neuro Reports abnormal gait (Gait impaired has to use walker) Endo Reports other (Being treated for diabetes mellitus) Physical exam (Primary Care) Tobacco/Smoking Status: Tobacco use Status Tobacco use date assessed 10/19/23 11/07/23 10:04 Patient Tobacco Use Status Current everyday Tobacco 11/16/23 08:59 Tobacco use type Cigarette 11/10/23 09:57 e-Cigarette/Vaping Use Former Use 11/10/23 09:57 Thrive Assessment: Date of Thrive Assessment Date Thrive assessed 07/13/23 11/07/23 10:04 Const General: cooperative, healthy appearing and comfortable Orientation/consciousness: patient oriented x3 HENMT Head: Yes normal to inspection Ears: hearing grossly normal bilaterally General nose exam: Normal external nose present Eyes General: appearance normal, both eyes and all related structures Neck Neck: Yes normal visual inspection Resp Effort & Inspection: normal respiratory effort Auscultation: clear to auscultation bilaterally, no crackles, no rales, no rhonchi and no wheezes Cardio Rate: regular rate Rhythm: regular rhythm Back/Spine/Pelvis Other: Tenderness at and around surgical site without warmth, erythema, or drainage. Skin Other: Surgical site is clean, dry, and intact. Neuro Other: Bilateral lower extremities have normal, equal strength and sensation. Unable to assess gait as patient was in wheelchair but was able to stand on her own without issue. General: patient oriented x3 and Unable to assess gait Gait exam (Neuro): Unable to assess gait Extrem Other: Mild discomfort with extension of the right knee without radiation to the back. General: Yes normal to inspection Psych Affect: normal affect Thought process: Normal thought process present Insight: Good insight present (Psych) Judgement: Good judgement present (Psych) Assessment and Plan Assessment & Plan (1) Status post lumbar spine surgery for decompression of spinal cord: Code(s): Z98.890 - Other specified postprocedural states Plan: Surgical site is clean dry and intact. Patient states that her function, and radicular pain has improved. Still having mild pain in the back and around the surgical site, is prescribed oxycodone by [facility]. Is scheduled to follow with spine clinic 01/16/2024 for 2nd postop visit. No signs of weakness in lower extremities or back. Patient is able to ambulate at home with a walker and is able to transfer from sitting to standing. Improvement in ADLs with difficulty performing certain tasks, VNA services 6 days a week. (2) Difficulty sleeping: Code(s): G47.9 - Sleep disorder, unspecified Plan: Patient has been having difficulty staying asleep throughout the night regardless of pain. She is being seen by [facility] for this problem and is currently on Seroquel 100 mg and was instructed to take an additional 50 mg as needed for sleep, but has been using her Klonopin in addition to Seroquel to help with sleeping. Patient has not taken the 150 mg yet and was requesting a different medication for sleep, states melatonin did not help. Informed patient of risks of over-sedation especially with sleep apnea and COPD history will defer to [facility] for further management of sleeping medications. Plan Thank you for allowing me to participate in the care of this patient. I personally spent 45 minutes reviewing, examining and charting on this patient. Coding Level of Care Code Est Pt Level 4 (68809) Diagnoses Status post lumbar spine surgery for decompression of spinal cord Z98.890 Difficulty sleeping G47.9
[2023-12-23 10:11] VITALS: BP 124/70; PULSE 98; O2SAT 92; BMI 32.0
== END 2023-12-23 10:45 | disposition home or self-care (01) ==
PROVIDERS: PCP Internal Medicine
DX: Z98.890 Other specified postprocedural states (principal); G47.9 Sleep disorder, unspecified
CPT/HCPCS: 99214

== ENCOUNTER 2024-01-02 11:57 | Outpatient (REF) | payer OTHER, SELFPAY ==
[2024-01-02 14:00] LABS: Appearance Urine Clear; Color Urine Yellow; Glucose Urine UA >=1000 mg/dL (Negative); Leukocyte Esterase Urine Small (1+) (Negative); Nitrite Urine Negative (Negative); Specific Gravity - Urine 1.015 (1.005-1.025); UMIC TRIGGER UACC YES; Urine Blood Trace (Negative); Urine Ketones Negative (Negative); Urine Protein Negative (Neg-Trace)
[2024-01-02 14:05] LABS: Bacteria Urine 1+ (None Seen); Hyaline Casts Urine 0-2 /LPF (0-2); RBC Urine 0-2 /HPF (0-2); Squamous Epithelial Cell Urine 0-2 /HPF (0-2); UACC Culture Trigger YES; WBC Urine 21-50 /HPF (0-5)
== END 2024-01-02 11:58 | disposition home or self-care (01) ==
LOC: HO.HMGCLDS 11:57
PROVIDERS: PCP Internal Medicine; Visit Provider Internal Medicine
DX: R39.9 Unspecified symptoms and signs involving the genitourinary system (principal)
CPT/HCPCS: 81001; 81003; 87086; 87088; 87186

== ENCOUNTER 2024-01-16 09:45 | Outpatient (AMB) | payer OTHER, SELFPAY ==
--- NOTE | 2024-01-16 09:00 | A.SPINEOV_ITS ---
Intake Visit Reasons: 2nd post op Intake Note: Ms. Rivas is here for her 2nd post op visit. Brand Strategist Required: No Allergies aspirin [ASPIRIN] Allergy (Severe, Verified 12/23/23 10:23) GI bleed, stomach upset ibuprofen [IBUPROFEN] Allergy (Severe, Verified 12/23/23 10:23) GI Bleed, stomach upset valsartan [From Diovan] Allergy (Severe, Verified 12/23/23 10:23) hives ziprasidone [From Geodon] Allergy (Severe, Verified 12/23/23 10:23) RASH-PALPITATIONS azithromycin Allergy (Intermediate, Verified 12/23/23 10:23) facial swelling metformin [METFORMIN] Allergy (Intermediate, Verified 12/23/23 10:23) NAUSEA & VOMITING, GI upset cephalexin [From KEFLEX] Allergy (Unknown, Verified 12/23/23 10:23) can't remember lisinopril Allergy (Unknown, Verified 12/23/23 10:23) cough NSAIDS (Non-Steroidal Anti-Inflamma [NSAIDS (NON-STEROIDAL ANTI-INFLAMMA] Adverse Reaction (Severe, Verified 12/23/23 10:23) HX OF GI BLEED tramadol [Ultram] Adverse Reaction (Severe, Verified 12/23/23 10:23) GI upset sulfamethoxazole [From Bactrim] Adverse Reaction (Intermediate, Verified 12/23/23 10:23) Hives tiotropium [From Spiriva with HandiHaler] Adverse Reaction (Intermediate, Verified 12/23/23 10:23) Unknown trimethoprim [From Bactrim] Adverse Reaction (Intermediate, Verified 12/23/23 10:23) Hives doxycycline Adverse Reaction (Mild, Verified 12/23/23 10:23) Stomach Upset Assessment & Plan Assessment & Plan (1) Status post lumbar spine surgery for decompression of spinal cord: Code(s): Z98.890 - Other specified postprocedural states Category: Surgical Plan Procedure: Right L3-4 Laminotomy, Partial facetectomy and foraminotomy Sofiya comes in today for a subsequent postoperative visit after having a right sided L3-4 lumbar decompression completed 2 months ago. She continues to report resolution of her right sided radiculopathy. She has no pain in her legs, and very little pain in her low back. She still has quite a bit of difficulties with ambulation ambulates with the assistance of her walker. She also has aide to help her throughout the day with her basic daily tasks such as ADLs and shopping. Overall she is very satisfied with the surgery and feels much better than she did preoperatively. No new neurological deficits. The patient ambulates well and rises from a seated position without difficulty. Her posterior incision site appears closed and well healed There is no need for continued routine follow-up with Sofiya, she may be discharged as a patient. I suspect that she will continue to do well and continue to heal in the coming months. Adebayo Bernal MD,PhD [facility] Coding Level of Care Code Global (68663) Diagnoses Status post lumbar spine surgery for decompression of spinal cord Z98.890
== END 2024-01-16 10:04 | disposition home or self-care (01) ==
PROVIDERS: PCP Internal Medicine; Visit Provider Physician Assistant
DX: Z98.890 Other specified postprocedural states (principal)
CPT/HCPCS: 99024

== ENCOUNTER → 2024-01-16 09:45 | Outpatient (BNVA) | payer OTHER, SELFPAY | PROVIDERS: PCP Internal Medicine; Visit Provider Physician Assistant | DX: Z47.89 Encounter for other orthopedic aftercare (principal); Z98.890 Other specified postprocedural states | CPT/HCPCS: 99212 ==

== ENCOUNTER 2024-01-17 09:57 | Outpatient (AMB) | payer OTHER, SELFPAY ==
--- NOTE | 2024-01-17 10:25 | MHC.OFFVIS ---
Vital Signs 01/17/24 10:26 Height 5 ft 5.5 in Weight 197 lb 5.019 oz BMI 32.3 BP 102/48 L Blood Pressure Location Lt brachial Position Sitting Pulse 81 Pulse Source Pulse Oximeter Pulse Oximetry (%) 94 Oxygen Delivery Method Room Air Intake Visit Reasons: COPD Intake Note: pt is here for follow up and states she is still coughing but she is still smoking. 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 Allergies aspirin [ASPIRIN] Allergy (Severe, Verified 01/17/24 10:39) GI bleed, stomach upset ibuprofen [IBUPROFEN] Allergy (Severe, Verified 01/17/24 10:39) GI Bleed, stomach upset valsartan [From Diovan] Allergy (Severe, Verified 01/17/24 10:39) hives ziprasidone [From Geodon] Allergy (Severe, Verified 01/17/24 10:39) RASH-PALPITATIONS azithromycin Allergy (Intermediate, Verified 01/17/24 10:39) facial swelling metformin [METFORMIN] Allergy (Intermediate, Verified 01/17/24 10:39) NAUSEA & VOMITING, GI upset cephalexin [From KEFLEX] Allergy (Unknown, Verified 01/17/24 10:39) can't remember lisinopril Allergy (Unknown, Verified 01/17/24 10:39) cough NSAIDS (Non-Steroidal Anti-Inflamma [NSAIDS (NON-STEROIDAL ANTI-INFLAMMA] Adverse Reaction (Severe, Verified 01/17/24 10:39) HX OF GI BLEED tramadol [Ultram] Adverse Reaction (Severe, Verified 01/17/24 10:39) GI upset sulfamethoxazole [From Bactrim] Adverse Reaction (Intermediate, Verified 01/17/24 10:39) Hives tiotropium [From Spiriva with HandiHaler] Adverse Reaction (Intermediate, Verified 01/17/24 10:39) Unknown trimethoprim [From Bactrim] Adverse Reaction (Intermediate, Verified 01/17/24 10:39) Hives doxycycline Adverse Reaction (Mild, Verified 01/17/24 10:39) Stomach Upset Medication List - Last Reconciled 01/17/24 by Nicholas Richter MD acetaminophen 1,000 mg (2 x 500 mg) PO TID PRN albuterol sulfate 90 mcg/actuation 2 puffs inhalation Q4H PRN 60 days aripiprazole 20 mg PO DAILY atorvastatin 40 mg PO BEDTIME brimonidine 0.15% 1 drp ophthalmic (eye) BID cholecalciferol (vitamin D3) 50 mcg PO BEDTIME ciprofloxacin HCl (Cipro) 250 mg PO BID clonazepam 1 tab PO BID PRN cyanocobalamin (vitamin B-12) (Vitamin B-12) 500 mcg PO DAILY 90 days [dressing stick As directed] [easy on sock aid As directed] empagliflozin (Jardiance) 25 mg PO DAILY esomeprazole magnesium 40 mg PO DAILY@0630 fenofibrate 160 mg PO DAILY fexofenadine 180 mg PO DAILY flash glucose sensor (FreeStyle Jill 2 Sensor kit) As directed fluticasone propion-salmeterol 115-21 mcg/actuation (Advair HFA) 2 puffs inhalation Q12H gabapentin 600 mg PO TID 30 days insulin aspart U-100 (Novolog FlexPen U-100 Insulin aspart) Novolog sliding scale 3 times daily (200-250: 4 units, 251-300: 6 units, 301 - 350: 8 units, >351: 10 units) insulin degludec (Tresiba FlexTouch U-100 insulin) 40 units (0.4 mL) subcut DAILY levalbuterol tartrate 45 mcg/actuation 2 puffs inhalation Q4-6H PRN levothyroxine 25 mcg PO DAILY@0600 liraglutide (Victoza 3-Jeanmarie) 1.8 mg (0.3 mL) subcut DAILY 90 days netarsudil-latanoprost 0.02-0.005 % (Rocklatan) 1 drp ophthalmic (eye) BEDTIME [new lift chair As directed] oxycodone 5 mg PO BID PRN pen needle, diabetic (Comfort EZ Pen [place]) As directed injects 3 X/day pioglitazone 15 mg PO BEDTIME quetiapine 50 mg PO BID PRN quetiapine 150 mg PO BEDTIME sennosides-docusate sodium 8.6-50 mg (Stimulant Laxative Plus) 2 tab-caps (2 x 8.6-50 mg) PO DAILY 90 days [Transfer wheelchair As directed] vit C,A-Fc-djxkm-lutein-zeaxan 250-90-40-1 mg (PreserVision AREDS-2) 1 tab PO BID [WHEELCHAIR As directed] Do you need a note to return to daycare/school/sports/work: No HPI HPI COPD: Details: ARELI IS 73 YEARS OLD FEMALE, A CASE OF MULTIPLE MEDICAL PROBLEMS INCLUDING MAJOR DEPRESSION AND PSYCHOTIC DISORDER, SHE IS THE STUDY SMOKER AND HAS CHRONIC OBSTRUCTIVE PULMONARY DISEASE, WITH CHRONIC RESPIRATORY FAILURE AND NOCTURNAL HYPOXEMIA. CONTINUES TO SMOKE UP TO 1 PACK A DAY. SHE IS BEING FOLLOWED VERY CLOSELY FOR A DENSITY IN THE LEFT LOWER LOBE WELL A SMALL NODULE IN THE RIGHT UPPER. PET SCAN IN SEPTEMBER OF THIS YEAR, DID NOT SHOW ANY ACTIVITY , AND A REPEAT CT SCAN AFTER 6 MONTHS WAS RECOMMENDED. PATIENT COMES IN TODAY CLAIMING THAT SHE IS FEELING BETTER. DOES NOT HAVE ANY BREATHING PROBLEMS EXCEPT PER INTERMITTENT COUGH . SHE DOES GET SHORT OF BREATH IF SHE WALKS , A FEW BLOCKS BUT SHE WALKS. WITH A WALKER SO HER GAIT IS SLOW WEIGHT IS STAYING JUST THE SAME. [facility] Medical History Uses wheelchair Wears dentures Supplemental oxygen dependent Slow to wake up after anesthesia Lumbar spinal stenosis Smoker Nicotine dependence, cigarettes, uncomplicated Dermatitis of vulva Acute respiratory failure with hypoxia Acute exacerbation of chronic obstructive pulmonary disease (COPD) Vulvar ulcer Recurrent major depression-severe Lower extremity pain Sialoadenitis Jaw pain العلي (dyspnea on exertion) Chest pain Osteopenia (~2015) Sinus tachycardia Pulmonary nodule Menopausal state Artificial menopause state Constipation Nocturnal hypoxemia COPD (chronic obstructive pulmonary disease) Spinal stenosis Depression Vitamin D deficiency Multinodular thyroid HLD (hyperlipidemia) T2DM (type 2 diabetes mellitus) (~2008) Surgical History History of cataract surgery S/P thyroid biopsy History of lithotripsy History of cardiac catheterization Hx of colonoscopy Hx of arthroscopy of left knee Hx of spinal fusion Hx of cholecystectomy Family History Father No problems noted. 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) Alcohol intake: never Comment: aware of trip hazard Patient Tobacco Use Status: Current everyday Tobacco user Smoking Start Date: 04/01/1964 Tobacco use type: Cigarette Cigarette Packs Per Day: 0.5 Cigarettes Per Day: 10 Years Smoked: 60 e-Cigarette/Vaping Use: Former Use Second Hand Smoke Exposure: No Advance Directives Date on File: 12/02/22 service: No Current occupational status: retired Sexual orientation: Straight/Heterosexual Cognitive needs: No Hearing needs: No Vision needs: Yes Female Reproductive History Menstrual Age of Menarche: 12 Review of Systems Const All systems reviewed & are unremarkable except as noted in HPI and below Eyes Reports no additional complaints ENT Reports nasal congestion (Mild intermittent) Card Denies chest pain, Denies irregular heart rhythm and Denies leg edema Resp Reports as per HPI GI Reports constipation and Reports dyspepsia Reports no additional complaints Musc Reports abnormal gait (Gait impaired has to use walker), Reports back pain and Reports arthralgias Skin/Breast Reports system reviewed and no additional complaints, except as documented Neuro Reports abnormal gait (Gait impaired has to use walker) Psych Reports anxiety, Reports depression and Reports mood swings Endo Reports other (Being treated for diabetes mellitus) Physical Exam Vital Signs: Last Vital Signs Pulse 81 01/17/24 10:26 BP 102/48 L 01/17/24 10:26 Pulse Ox 94 01/17/24 10:26 Oxygen Delivery Method Room Air 01/17/24 10:26 BMI result Body Mass Index 32.3 Const General: comfortable and no acute distress Orientation/consciousness: patient oriented x3 HEENT Head: Yes normal to inspection General nose exam: No nasal polyps present and No nasal discharge present Face and sinus: Yes sinuses nontender Mouth: oropharynx abnormals (Crowded, Mallampati class 4) Throat: Yes posterior oropharynx normal Eyes General: appearance normal, both eyes and all related structures Neck Neck: Yes normal visual inspection, Yes no lymphadenopathy, Yes trachea midline and Yes no JVD Thyroid: Thyroid normal Chest Chest palpation & inspection: normal inspection of the chest, normal palpation of entire chest wall and no tenderness Resp Other: Percussion note resonant, breath sounds are distant with prolonged expiratory phase. Lungs are clear today no audible wheezes rhonchi or crepitations. Cardio Palpation: normal PMI Rate: regular rate Rhythm: regular rhythm Heart sounds: no gallops and no murmurs GI Palpation (GI): Soft to palpation, nontender, No hepatosplenomegaly present and no masses Auscultation: normal bowel sounds Back/Spine/Pelvis Thoracic/Lumbar Spine: thoracic and lumbar spine normal to inspection and thoraco-lumbar ROM limited Skin General skin exam: no rashes or lesions noted Neuro General: patient oriented x3, No gait normal (Somewhat unsteady gait, uses walker) and no focal motor deficits Cranial nerves: Yes CN's II-XII intact bilaterally Extrem General: Yes normal to inspection, Yes no clubbing, cyanosis or edema and Yes no calf tenderness Psych Appearance: grossly normal and well kempt Speech and movement: Normal speech and movement present Results Reviewed Results Reviewed: PET SCAN RESULTS ARE REVIEWED WITH THE PATIENT. Assessment & Plan Assessment & Plan (1) COPD (chronic obstructive pulmonary disease): Comment: Long-time chronic obstructive pulmonary disease, moderately severe,, controlled and stable. At present she has no active cough or wheezing. Code(s): J44.9 - Chronic obstructive pulmonary disease, unspecified Category: Medical Plan: ALBUTEROL HFA, 2 PUFFS Q 6 HOURS P.R.N. (2) Smoker: Comment: Patient is a lifelong smoker. Has try to quit smoking many times, but has not been able to quit complete. At present smoking 1 pack of cigarettes a day again. Code(s): F17.200 - Nicotine dependence, unspecified, uncomplicated Category: Social Hx Plan: Had a good discussion about smoking again, She is not ready to quit completely. I have stress that at lease should try to cut down to half pack a day, (3) Nocturnal hypoxemia: Comment: She has evidence of nocturnal hypoxemia since 2007 . That is when she had an OVERNIGHT SLEEP STUDY, showing only minimal degree of ADDIS, total sleep time AHI 5.5, But persistent nocturnal hypoxemia. She has been treated with oxygen at night 2 L/MT which she has been using regularly. . Code(s): G47.34 - Idiopathic sleep related nonobstructive alveolar hypoventilation Category: Medical Plan: Continue O2 2 L/minute at night (4) Pulmonary nodule: Comment: Patient has multiple small pulmonary nodules unchanged from before Two ground-glass nodular densities in lower lobes are somewhat increased from before. Need to be followed up closely. She is being followed by, our Lung screening team. Last CT scan on 09/06/23 showed persistent density in the left lower lobe, , PET scan did not show any activity. She is due for a CT scan , in February of this year, (at 6 months interval ) Code(s): R91.1 - Solitary pulmonary nodule Category: Medical Plan: Continue to be in the lung screening program. Coding Level of Care Code Est Pt Level 3 (66989) Diagnoses COPD (chronic obstructive pulmonary disease) J44.9 Smoker F17.200 Nocturnal hypoxemia G47.34 Pulmonary nodule R91.1
[2024-01-17 10:26] VITALS: BP 102/48; PULSE 81; O2SAT 94; BMI 32.3
== END 2024-01-17 10:49 | disposition home or self-care (01) ==
PROVIDERS: PCP Internal Medicine; Visit Provider Internal Medicine
DX: J44.9 Chronic obstructive pulmonary disease, unspecified (principal); F17.200 Nicotine dependence, unspecified, uncomplicated; G47.34 Idiopathic sleep related nonobstructive alveolar hypoventilation; R91.1 Solitary pulmonary nodule
CPT/HCPCS: 99213

== ENCOUNTER → 2024-01-17 09:57 | Outpatient (BNVA) | payer OTHER, SELFPAY | PROVIDERS: PCP Internal Medicine; Visit Provider Internal Medicine | DX: J44.9 Chronic obstructive pulmonary disease, unspecified (principal); G47.34 Idiopathic sleep related nonobstructive alveolar hypoventilation; R91.1 Solitary pulmonary nodule; F17.210 Nicotine dependence, cigarettes, uncomplicated | CPT/HCPCS: 99212 ==

== ENCOUNTER 2024-01-18 12:52 | Outpatient (AMB) | payer OTHER, SELFPAY ==
--- NOTE | 2024-01-18 12:54 | MHC.OFFVIS ---
Intake Visit Reasons: Vaginal lesions/ok per Nelida Intake Note: pt c/o vaginal soreness and discharge. 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: Extruder Operator Horizontal Present (April) Allergies aspirin [ASPIRIN] Allergy (Severe, Verified 01/18/24 12:54) GI bleed, stomach upset ibuprofen [IBUPROFEN] Allergy (Severe, Verified 01/18/24 12:54) GI Bleed, stomach upset valsartan [From Diovan] Allergy (Severe, Verified 01/18/24 12:54) hives ziprasidone [From Geodon] Allergy (Severe, Verified 01/18/24 12:54) RASH-PALPITATIONS azithromycin Allergy (Intermediate, Verified 01/18/24 12:54) facial swelling metformin [METFORMIN] Allergy (Intermediate, Verified 01/18/24 12:54) NAUSEA & VOMITING, GI upset cephalexin [From KEFLEX] Allergy (Unknown, Verified 01/18/24 12:54) can't remember lisinopril Allergy (Unknown, Verified 01/18/24 12:54) cough NSAIDS (Non-Steroidal Anti-Inflamma [NSAIDS (NON-STEROIDAL ANTI-INFLAMMA] Adverse Reaction (Severe, Verified 01/18/24 12:54) HX OF GI BLEED tramadol [Ultram] Adverse Reaction (Severe, Verified 01/18/24 12:54) GI upset sulfamethoxazole [From Bactrim] Adverse Reaction (Intermediate, Verified 01/18/24 12:54) Hives tiotropium [From Spiriva with HandiHaler] Adverse Reaction (Intermediate, Verified 01/18/24 12:54) Unknown trimethoprim [From Bactrim] Adverse Reaction (Intermediate, Verified 01/18/24 12:54) Hives doxycycline Adverse Reaction (Mild, Verified 01/18/24 12:54) Stomach Upset HPI Comments Details: Presenting complaining of vulvovaginal irritation. Vulvar biopsy done in 09/16 showed spongiotic dermatitis [facility] Medical History (Updated 01/18/24 @ 13:14 by Solo Corona MD) Dermatitis of vulva Uses wheelchair Wears dentures Supplemental oxygen dependent Slow to wake up after anesthesia Lumbar spinal stenosis Smoker Nicotine dependence, cigarettes, uncomplicated Acute respiratory failure with hypoxia Acute exacerbation of chronic obstructive pulmonary disease (COPD) Vulvar ulcer Recurrent major depression-severe Lower extremity pain Sialoadenitis Jaw pain العلي (dyspnea on exertion) Chest pain Osteopenia (~2015) Sinus tachycardia Pulmonary nodule Menopausal state Artificial menopause state Constipation Nocturnal hypoxemia COPD (chronic obstructive pulmonary disease) Spinal stenosis Depression Vitamin D deficiency Multinodular thyroid HLD (hyperlipidemia) T2DM (type 2 diabetes mellitus) (~2008) Surgical History History of cataract surgery S/P thyroid biopsy History of lithotripsy History of cardiac catheterization Hx of colonoscopy Hx of arthroscopy of left knee Hx of spinal fusion Hx of cholecystectomy Family History Father No problems noted. 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/day) Alcohol intake: never Comment: aware of trip hazard Patient Tobacco Use Status: Current everyday Tobacco user Smoking Start Date: 04/01/1964 Tobacco use type: Cigarette Cigarette Packs Per Day: 0.5 Cigarettes Per Day: 10 Years Smoked: 60 e-Cigarette/Vaping Use: Former Use Second Hand Smoke Exposure: No Advance Directives Date on File: 12/02/22 service: No Current occupational status: retired Sexual orientation: Straight/Heterosexual Cognitive needs: No Hearing needs: No Vision needs: Yes Female Reproductive History Menstrual Age of Menarche: 12 Review of Systems Const All systems reviewed & are unremarkable except as noted in HPI and below Physical Exam General: Yes no CVA tenderness External Female Exam: normal appearance of the urethra, erythema and other Speculum Exam - Vagina: normal appearance of the vagina, normal palpation, no lesions and no masses Speculum Exam - Cervix: normal appearance of the cervix, normal palpation, no lesions, no masses and nontender Bimanual exam- vagina & uterus: normal bimanual exam, normal palpation, uterine size normal, normal palpation, uterine shape normal, No Cervical tenderness present and non-tender Bimanual Exam- Adnexa, other: normal adnexae Back/Spine/Pelvis Back: no CVA tenderness Assessment & Plan Assessment & Plan (1) Dermatitis of vulva: Code(s): L30.9 - Dermatitis, unspecified Category: Medical Plan: Discussed with the patient the finding on physical exam erythema with no other significant finding, recommended 1% vubj-nan-ebuyczx hydrocortisone twice a day for 7 days. Instructions given the patient to schedule a follow-up in 1-2 weeks if no improvement will consider vulvar biopsy to rule out REGAN. All questions answered, the patient verbalized understanding Coding Level of Care Code Est Pt Level 3 (12105) Diagnoses Dermatitis of vulva L30.9
== END 2024-01-18 13:34 | disposition home or self-care (01) ==
LOC: HO.HWS 12:52
PROVIDERS: PCP Internal Medicine; Visit Provider Obstetrics & Gynecology
DX: L30.9 Dermatitis, unspecified (principal)
CPT/HCPCS: 99213

== ENCOUNTER → 2024-01-18 12:52 | Outpatient (BNVA) | payer OTHER, SELFPAY | PROVIDERS: PCP Internal Medicine; Visit Provider Obstetrics & Gynecology | DX: L30.9 Dermatitis, unspecified (principal) | CPT/HCPCS: 99212 ==

== ENCOUNTER 2024-02-06 09:28 | Outpatient (AMB) | payer OTHER, SELFPAY ==
[2024-02-06 09:41] VITALS: BP 112/56; PULSE 84; BMI 32.3
--- NOTE | 2024-02-06 09:41 | MHC.OFFVIS ---
Vital Signs 02/06/24 09:41 Height 5 ft 5.5 in Weight 196 lb 13.965 oz BMI 32.3 BP 112/56 L Blood Pressure Location Lt brachial Position Sitting Pulse 84 Pulse Source Pulse Oximeter Intake Visit Reasons: f/u thyroid nodule-confirmed Intake Note: Patient present today for Thyroid nodule follow up visit. Market Research Assistant Required: No Accompanied by: Self / Same As Patient Allergies aspirin [ASPIRIN] Allergy (Severe, Verified 02/06/24 09:45) GI bleed, stomach upset ibuprofen [IBUPROFEN] Allergy (Severe, Verified 02/06/24 09:45) GI Bleed, stomach upset valsartan [From Diovan] Allergy (Severe, Verified 02/06/24 09:45) hives ziprasidone [From Geodon] Allergy (Severe, Verified 02/06/24 09:45) RASH-PALPITATIONS azithromycin Allergy (Intermediate, Verified 02/06/24 09:45) facial swelling metformin [METFORMIN] Allergy (Intermediate, Verified 02/06/24 09:45) NAUSEA & VOMITING, GI upset cephalexin [From KEFLEX] Allergy (Unknown, Verified 02/06/24 09:45) can't remember lisinopril Allergy (Unknown, Verified 02/06/24 09:45) cough NSAIDS (Non-Steroidal Anti-Inflamma [NSAIDS (NON-STEROIDAL ANTI-INFLAMMA] Adverse Reaction (Severe, Verified 02/06/24 09:45) HX OF GI BLEED tramadol [Ultram] Adverse Reaction (Severe, Verified 02/06/24 09:45) GI upset sulfamethoxazole [From Bactrim] Adverse Reaction (Intermediate, Verified 02/06/24 09:45) Hives tiotropium [From Spiriva with HandiHaler] Adverse Reaction (Intermediate, Verified 02/06/24 09:45) Unknown trimethoprim [From Bactrim] Adverse Reaction (Intermediate, Verified 02/06/24 09:45) Hives doxycycline Adverse Reaction (Mild, Verified 02/06/24 09:45) Stomach Upset Medication List - Last Reconciled 02/06/24 by Masoud Sanders MD acetaminophen 1,000 mg (2 x 500 mg) PO TID PRN albuterol sulfate 90 mcg/actuation 2 puffs inhalation Q4H PRN 60 days aripiprazole 20 mg PO DAILY atorvastatin 40 mg PO BEDTIME brimonidine 0.15% 1 drp ophthalmic (eye) BID cholecalciferol (vitamin D3) 50 mcg PO BEDTIME ciprofloxacin HCl (Cipro) 250 mg PO BID clonazepam 1 tab PO BID PRN cyanocobalamin (vitamin B-12) (Vitamin B-12) 500 mcg PO DAILY 90 days [dressing stick As directed] [easy on sock aid As directed] empagliflozin (Jardiance) 25 mg PO DAILY esomeprazole magnesium 40 mg PO DAILY@0630 fenofibrate 160 mg PO DAILY fexofenadine 180 mg PO DAILY flash glucose sensor (FreeStyle Jill 2 Sensor kit) As directed fluticasone propion-salmeterol 115-21 mcg/actuation (Advair HFA) 2 puffs inhalation Q12H gabapentin 600 mg PO TID 30 days insulin aspart U-100 (Novolog FlexPen U-100 Insulin aspart) Novolog sliding scale 3 times daily (200-250: 4 units, 251-300: 6 units, 301 - 350: 8 units, >351: 10 units) insulin degludec (Tresiba FlexTouch U-100 insulin) 40 units (0.4 mL) subcut DAILY levalbuterol tartrate 45 mcg/actuation 2 puffs inhalation Q4-6H PRN levothyroxine 25 mcg PO DAILY@0600 liraglutide (Victoza 3-Jeanmarie) 1.8 mg (0.3 mL) subcut DAILY 90 days netarsudil-latanoprost 0.02-0.005 % (Rocklatan) 1 drp ophthalmic (eye) BEDTIME [new lift chair As directed] nicotine 1 patch transdermal DAILY 28 days oxycodone 5 mg PO BID PRN pen needle, diabetic (Comfort EZ Pen [place]) As directed injects 3 X/day pioglitazone 15 mg PO BEDTIME quetiapine 50 mg PO BID PRN quetiapine 150 mg PO BEDTIME sennosides-docusate sodium 8.6-50 mg (Stimulant Laxative Plus) 2 tab-caps (2 x 8.6-50 mg) PO DAILY 90 days [Transfer wheelchair As directed] vit C,W-Rx-xdtvu-lutein-zeaxan 250-90-40-1 mg (PreserVision AREDS-2) 1 tab PO BID [WHEELCHAIR As directed] HPI Comments Details: 73 YO F with extensive PMHx who is seen in F/U for , NTMNG ) NTMNG: Had thyroid US which revealed large 2.0 cm R superior nodule. Denies any compressive symptoms. Denies any history of head or neck irradiation. No history of thyroid cancer. Underwent FNA of this nodule 05/10/19 with Benign ([place]bal[place] Category II) cytology. US Thyroid: 02/18/2022 Right Thyroid Lobe: 5.2 x 2.4 x 2.4 cm, volume 15.7 mL. Previously 6.0 x 2.4 x 2.1 cm, volume 15.8 mL. Parenchyma: The gland echotexture is homogeneous. Thyroid vascularity is normal. Left Thyroid Lobe: 3.9 x 1.5 x 1.6 cm, volume 4.9 mL. Previously 4.3 x 1.6 x 1.3 cm, volume 4.7 mL. Parenchyma: The gland echotexture is homogeneous. Thyroid vascularity is normal. Isthmus: 0.5 cm in maximum AP dimension. Previously 0.6 cm. Estimated total number of nodules greater than or equal to 1 cm: 2. Quality Improvement Consultant nodules are described as follows: 1.? Location: Right superior. ?? ? Size: 2.3 x 2.0 x 1.7 cm, volume 4.1 mL. ?? ? Previously: 1.9 x 1.9 x 1.9 cm, volume 3.6 mL. ?? ? Nodule characteristics: ?? ? Composition: Solid (2). ?? ? Echogenicity: Isoechoic (1). ?? ? Shape: Taller than wide (3). ?? ? Margins: Smooth (0). ?? ? Echogenic Foci: None (0). ? ACR TI-RADS total points: 6 Previous: 6 ?? ? ACR TI-RADS category: 4 Previous: 4 ? Significant change in size (>/= 20% in 2 dimensions and minimal increase of 2 mm or 50% or greater increase in volume): ?? ? Change in features: ?? ? Change in ACR TI-RADS risk category: 2.? Location: Right superior/mid. ?? ? Size: 1.0 x 0.6 x 0.9 cm, volume 0.3 mL. ?? ? Previously: 1.1 x 0.7 x 1.1 cm, volume 0.4 mL. ?? ? Nodule characteristics: ?? ? Composition: Solid/almost completely solid (2). ?? ? Echogenicity: Hyperechoic (1). ?? ? Shape: Not taller than wide (0). ?? ? Margins: Ill-defined (0). ?? ? Echogenic Foci: None (0). ? ACR TI-RADS total points: 3 Previous: 3 ?? ? ACR TI-RADS category: 3 Previous: 3 ? Significant change in size (>/= 20% in 2 dimensions and minimal increase of 2 mm or 50% or greater increase in volume): ?? ? Change in features: ?? ? Change in ACR TI-RADS risk category: 3.? Location: Right inferior. ?? ? Size: 0.5 x 0.4 x 0.6 cm, volume 0.07 mL. ?? ? Previously: 0.6 x 0.4 x 0.7 cm, volume 0.08 mL. ?? ? Nodule characteristics: ?? ? Composition: Mixed cystic and solid (1). ?? ? Echogenicity: Cannot be determined (1). ?? ? Shape: Not taller than wide (0). ?? ? Margins: Smooth (0). ?? ? Echogenic Foci: None (0).? ACR TI-RADS total points: 2 Previous: 2 ?? ? ACR TI-RADS category: 2 Previous: 2 ? Significant change in size (>/= 20% in 2 dimensions and minimal increase of 2 mm or 50% or greater increase in volume): ?? ? Change in features: ?? ? Change in ACR TI-RADS risk category: 4.? Location: Left superior. ?? ? Size: 0.4 x 0.2 x 0.3 cm, volume 0.02 mL. ?? ? Previously: 0.4 x 0.2 x 0.4 cm, volume 0.02 mL. ?? ? Nodule characteristics: ?? ? Composition: Mixed cystic and solid (1). ?? ? Echogenicity: Cannot be determined (1). ?? ? Shape: Not taller than wide (0). ?? ? Margins: Smooth (0). ?? ? Echogenic Foci: None (0).? ACR TI-RADS total points: 2 Previous: 2 ?? ? ACR TI-RADS category: 2 Previous: 2 ? Significant change in size (>/= 20% in 2 dimensions and minimal increase of 2 mm or 50% or greater increase in volume): ?? ? Change in features: ?? ? Change in ACR TI-RADS risk category: Small cystic area superior to the isthmus appears decreased in size measuring 5 x 3 x 4 mm compared to 9 x 5 x 5 mm on most recent exam February 2021. NODES: No lymphadenopathy is seen in the tissue surrounding the thyroid gland. Labs: Laboratory Tests 10/26/22 10/26/22 10/26/22 07:09 07:09 07:09 Sodium 142 Potassium 4.4 Creatinine 0.79 Estimated GFR > 60 Hemoglobin A1c % 7.8 LDL Cholesterol, Calc 78 TSH 2.33 Free T4 0.99 Microalb/Creat Ratio 10.0 Saw wet room supervisor at [facility] will decide not to biopsy right thyroid nodule Repeat thyroid ultrasound showed FINDINGS: SIZE: Measurements of the thyroid lobes and nodules are given in sagittal, anteroposterior and transverse dimensions respectively. Right Thyroid Lobe: 6.2 x 3.0 x 2.6 cm, volume 25.3 mL. Previously 5.8 x 2.6 x 2.4 cm, volume 18.9 mL. Parenchyma: The gland echotexture is homogeneous. Thyroid vascularity is normal. Left Thyroid Lobe: 4.2 x 1.7 x 1.4 cm, volume 5.2 mL. Previously 4.7 x 1.6 x 1.3 cm, volume 5.1 mL. Parenchyma: The gland echotexture is homogeneous. Thyroid vascularity is normal. Isthmus: 0.7 cm in maximum AP dimension. Previously 0.4 cm. Estimated total number of nodules greater than or equal to 1 cm: 1. Quality Improvement Consultant nodules are described as follows: 1. Location: Right superior/mid. Size: 2.9 x 2.2 x 2.2 cm, volume 7.3 mL. Previously: 2.9 x 2.2 x 1.9 cm, volume 6.2 mL on 01/27/2023 and 2.3 x 2.0 x 1.7 cm, volume 4.1 mL on 02/18/2022 Nodule characteristics: Composition: Solid (2). Echogenicity: Isoechoic (1). Shape: Taller than wide (3). Margins: Ill-defined (0). Echogenic Foci: Punctate echogenic foci (3). ACR TI-RADS total points: 9 Previous: 9 ACR TI-RADS category: 5 Previous: 5 Significant change in size (>/= 20% in 2 dimensions and minimal increase of 2 mm or 50% or greater increase in volume): Yes Change in features: No Change in ACR TI-RADS risk category: No 2. Location: Right inferior. Size: 0.5 x 0.5 x 0.6 cm, volume 0.1 mL. Previously: 0.6 x 0.4 x 0.6 cm, volume 0.1 mL. Nodule characteristics: Composition: Solid (2). Echogenicity: Very hypoechoic (3). Shape: Not taller than wide (0). Margins: Smooth (0). Echogenic Foci: Punctate echogenic foci (3). ACR TI-RADS total points: 8 Previous: 7 ACR TI-RADS category: 5 Previous: 5 Significant change in size (>/= 20% in 2 dimensions and minimal increase of 2 mm or 50% or greater increase in volume): No Change in features: Yes Change in ACR TI-RADS risk category: No 3. Location: Left superior. Size: 0.6 x 0.2 x 0.3 cm, volume 0.02 mL. Previously: 0.4 x 0.2 x 0.4 cm, volume 0.01 mL. Nodule characteristics: Composition: Solid (2). Echogenicity: Isoechoic (1). Shape: Not taller than wide (0). Margins: Smooth (0). Echogenic Foci: None (0). ACR TI-RADS total points: 3 Previous: 3 ACR TI-RADS category: 3 Previous: 3 Significant change in size (>/= 20% in 2 dimensions and minimal increase of 2 mm or 50% or greater increase in volume): Yes Change in features: No Change in ACR TI-RADS risk category: No NODES: No lymphadenopathy is seen in the tissue surrounding the thyroid gland. US/US thyroid IMPRESSION: Enlarged, multinodular thyroid gland PENDING SALE TO [facility] Medical History (Updated 01/18/24 @ 13:14 by Solo Corona MD) Dermatitis of vulva Uses wheelchair Wears dentures Supplemental oxygen dependent Slow to wake up after anesthesia Lumbar spinal stenosis Smoker Nicotine dependence, cigarettes, uncomplicated Acute respiratory failure with hypoxia Acute exacerbation of chronic obstructive pulmonary disease (COPD) Vulvar ulcer Recurrent major depression-severe Lower extremity pain Sialoadenitis Jaw pain العلي (dyspnea on exertion) Chest pain Osteopenia (~2015) Sinus tachycardia Pulmonary nodule Menopausal state Artificial menopause state Constipation Nocturnal hypoxemia COPD (chronic obstructive pulmonary disease) Spinal stenosis Depression Vitamin D deficiency Multinodular thyroid HLD (hyperlipidemia) T2DM (type 2 diabetes mellitus) (~2008) Surgical History History of cataract surgery S/P thyroid biopsy History of lithotripsy History of cardiac catheterization Hx of colonoscopy Hx of arthroscopy of left knee Hx of spinal fusion Hx of cholecystectomy Family History Father No problems noted. Mother Cancer Diabetes Social History Household Members: None Housing: Apartment Are you a primary certified social workers in health care to a significant other at home: No Do you presently have visiting nurse or other home services: Yes (ASSISTANT TEACHER 2-3 hours/day) Alcohol intake: never Comment: aware of trip hazard Patient Tobacco Use Status: Current everyday Tobacco user Smoking Start Date: 04/01/1964 Tobacco use type: Cigarette Cigarette Packs Per Day: 0.5 Cigarettes Per Day: 10 Years Smoked: 60 e-Cigarette/Vaping Use: Former Use Second Hand Smoke Exposure: No Advance Directives Date on File: 12/02/22 service: No Current occupational status: retired Sexual orientation: Straight/Heterosexual Cognitive needs: No Hearing needs: No Vision needs: Yes Female Reproductive History Menstrual Age of Menarche: 12 Physical Exam Const Other: Thyroid gland is normal size weighs about 15 g . There are no palpable thyroid nodule Neck Other: . Assessment & Plan Assessment & Plan (1) Multinodular thyroid: [facility] Code(s): E04.2 - Nontoxic multinodular goiter Category: Medical Plan: History of multinodular goiter status post FNA of right upper midpole nodule in 2019 with benign cytology. Recent ultrasound shows enlargement of the nodule. She appears to be clinically biochemically euthyroid. She saw the wet room supervisor at [facility] who decided not to biopsy the right thyroid nodule but to follow with a subsequent ultrasound . Appears clinically euthyroid Plan is recheck TSH and free T4. We will also have patient follow-up in the next several months with Dr. Chirinos who is joining our practice and is expert thyroid ultrasound to see if right midpole nodule needs biopsy again Orders: Orders Free T4 (Free Thyroxine) Today E04.2 - Nontoxic multinodular goiter Thyroid Stimulating Hormone Today E04.2 - Nontoxic multinodular goiter Coding Level of Care Code Est Pt Level 3 (42697) Diagnoses Multinodular thyroid E04.2
== END 2024-02-06 09:56 | disposition home or self-care (01) ==
PROVIDERS: PCP Internal Medicine; Visit Provider Internal Medicine Endocrinology, Diabetes & Metabolism
DX: E04.2 Nontoxic multinodular goiter (principal)
CPT/HCPCS: 99213

== ENCOUNTER → 2024-02-06 09:28 | Outpatient (BNVA) | payer OTHER, SELFPAY | PROVIDERS: PCP Internal Medicine; Visit Provider Internal Medicine Endocrinology, Diabetes & Metabolism | DX: E04.1 Nontoxic single thyroid nodule (principal) | CPT/HCPCS: 99212 ==

== ENCOUNTER → 2024-02-07 13:26 | Outpatient (BNVA) | payer OTHER, SELFPAY | PROVIDERS: PCP Internal Medicine; Visit Provider Obstetrics & Gynecology ==

== ENCOUNTER 2024-02-10 12:43 | Outpatient (REF) | payer OTHER, SELFPAY ==
[2024-02-10 16:17] LABS: Appearance Urine Clear; Color Urine Yellow; Glucose Urine UA >=1000 mg/dL (Negative); Leukocyte Esterase Urine Negative (Negative); Nitrite Urine Negative (Negative); PH 5.5 (5.0-9.0); Specific Gravity - Urine >= 1.030 (1.005-1.025); UMIC TRIGGER UACC YES; Urine Blood Negative (Negative); Urine Ketones Negative (Negative); Urine Protein Negative (Neg-Trace)
[2024-02-10 16:47] LABS: Bacteria Urine None Seen (None Seen); Hyaline Casts Urine 0-2 /LPF (0-2); RBC Urine 0-2 /HPF (0-2); Squamous Epithelial Cell Urine 0-2 /HPF (0-2); WBC Urine 0-5 /HPF (0-5)
[2024-02-10 16:48] LABS: Free T4 (Free Thyroxine) 1.01 ng/dL (0.71-1.85); Thyroid Stimulating Hormone 1.32 uIU/mL (0.32-4.0)
== END 2024-02-10 12:44 | disposition home or self-care (01) ==
LOC: HO.HMGCLDS 12:43
PROVIDERS: PCP Internal Medicine; Visit Provider Internal Medicine Endocrinology, Diabetes & Metabolism
DX: E04.2 Nontoxic multinodular goiter (principal)
CPT/HCPCS: 36415; 81001; 84439; 84443

== ENCOUNTER 2024-02-22 10:49 | Outpatient (AMB) | payer OTHER, SELFPAY ==
--- NOTE | 2024-02-22 10:54 | A.OFFVIS_ITS ---
Vital Signs 02/22/24 10:57 Height 5 ft 5.5 in Weight 194 lb 0.108 oz BMI 31.8 BP 106/60 Blood Pressure Location Rt brachial Position Sitting Pulse 99 Pulse Source Pulse Oximeter Intake Visit Reasons: DM/CONFIRMED Intake Note: New Patient presents today to establish treatment on Type 2 Diabetes Mellitus: Last Diabetic Eye exam: 09/2023, S sees laborer bituminous paving more often Last Podiatry Exam: 09/2023 Most recent HbA1c: 7.5%, 02/22/2024 Random Glucose- 184mg/dL, Today Flat Drier Required: No Accompanied by: INSURANCE BUSINESS ANALYST Allergies aspirin [ASPIRIN] Allergy (Severe, Verified 02/22/24 11:00) GI bleed, stomach upset ibuprofen [IBUPROFEN] Allergy (Severe, Verified 02/22/24 11:00) GI Bleed, stomach upset valsartan [From Diovan] Allergy (Severe, Verified 02/22/24 11:00) hives ziprasidone [From Geodon] Allergy (Severe, Verified 02/22/24 11:00) RASH-PALPITATIONS azithromycin Allergy (Intermediate, Verified 02/22/24 11:00) facial swelling metformin [METFORMIN] Allergy (Intermediate, Verified 02/22/24 11:00) NAUSEA & VOMITING, GI upset cephalexin [From KEFLEX] Allergy (Unknown, Verified 02/22/24 11:00) can't remember lisinopril Allergy (Unknown, Verified 02/22/24 11:00) cough NSAIDS (Non-Steroidal Anti-Inflamma [NSAIDS (NON-STEROIDAL ANTI-INFLAMMA] Adverse Reaction (Severe, Verified 02/22/24 11:00) HX OF GI BLEED tramadol [Ultram] Adverse Reaction (Severe, Verified 02/22/24 11:00) GI upset sulfamethoxazole [From Bactrim] Adverse Reaction (Intermediate, Verified 02/22/24 11:00) Hives tiotropium [From Spiriva with HandiHaler] Adverse Reaction (Intermediate, Verified 02/22/24 11:00) Unknown trimethoprim [From Bactrim] Adverse Reaction (Intermediate, Verified 02/22/24 11:00) Hives doxycycline Adverse Reaction (Mild, Verified 02/22/24 11:00) Stomach Upset HPI Comments Details: 73 YO F with extensive PMHx who is seen in F/U for T2DM Follows with Dr Sanders for NTMNG and Hypercalcemia. Initially diagnosed with T2DM in 2008 during a routine screening exam. Was initially started on treatment with Metformin, but she did not tolerate this due to GI distress. She began using Insulin in 2018. Current regimen Actos 15 mg PO daily, Jardiance 25 mg PO daily, Victoza 1.8 mg daily, Tresiba 40 units qAM and Novolog sliding scale 3 times daily (200-250: 4 units, 251-300: 6 units, 301 - 350: 8 units, >351: 10 units). She misplaced her sliding scale but believes this is what she has been adhering to. she reports medication compliance. She has tried and failed Glimepiride and Onglyza. She is intolerant to Metformin due to GI side effects. Started insulin in 2018 Jill 2 CGM download 96% use. High 23%, TGT 77% low 0%. GMI 7.1% POC A1C 7.5%. Higher glucose readings following breakfast and lunch No lows in past few weeks. Treats lows with orange juice, does check sugar after to make sure its increasing. Family history of T2DM in her Mother and Brother. MID optho Has neuropathy. No nephropathy, not on JAZMIN/ARB. UAC 10 10/26/2022. Lisinopril was stopped due to cough, and no JAZMIN/ARB was resumed due to hypotension. She is following with Cardiology for this. Has HLD. On Atorvastatin 40 mg PO qHS. Has no history of CAD. Has had Diabetes Education. 2) NTMNG-This will be followed with Dr Taran JOHNSON CONSTITUTIONAL: Denies weight loss, fever and chills. HEENT: Denies changes in vision and hearing. RESPIRATORY: Denies SOB and cough. CV: Denies palpitations and CP GI: Denies abdominal pain, nausea, vomiting and diarrhea. : Denies dysuria and urinary frequency. MSK: Denies new myalgia and joint pain. SKIN: Denies rash and pruritus. NEUROLOGICAL: Denies headache PSYCHIATRIC: Denies recent changes in mood. PHYSICAL EXAM: GENERAL: Alert and oriented x 3. NAD EYES: EOMI. Anicteric. HENT: Moist mucous membranes. No scleral icterus. No cervical lymphadenopathy. LUNGS: Clear to auscultation bilaterally. CARDIOVASCULAR: Regular rate and rhythm. No murmur. No JVD. ABDOMEN: Soft, non-tender +bs EXTREMITIES: No edema. Non-tender. +DP pulses. Normal monofilament SKIN: No rashes or lesions. Warm. NEUROLOGIC: No focal neurological deficits. CN II-XII grossly intact PSYCHIATRIC: Cooperative. Appropriate mood and affect [facility] Medical History (Updated 02/22/24 @ 13:54 by Sally Marmolejo MD) Dermatitis of vulva Uses wheelchair Wears dentures Supplemental oxygen dependent Slow to wake up after anesthesia Lumbar spinal stenosis Smoker Nicotine dependence, cigarettes, uncomplicated Acute respiratory failure with hypoxia Acute exacerbation of chronic obstructive pulmonary disease (COPD) Vulvar ulcer Recurrent major depression-severe Lower extremity pain Sialoadenitis Jaw pain العلي (dyspnea on exertion) Chest pain Osteopenia (~2015) Sinus tachycardia Pulmonary nodule Menopausal state Artificial menopause state Constipation Nocturnal hypoxemia COPD (chronic obstructive pulmonary disease) Spinal stenosis Depression Vitamin D deficiency Multinodular thyroid HLD (hyperlipidemia) T2DM (type 2 diabetes mellitus) (~2008) Surgical History History of cataract surgery S/P thyroid biopsy History of lithotripsy History of cardiac catheterization Hx of colonoscopy Hx of arthroscopy of left knee Hx of spinal fusion Hx of cholecystectomy Family History Father No problems noted. Mother Cancer Diabetes Social History Household Members: None Housing: Apartment Are you a primary lawn care professional to a significant other at home: No Do you presently have visiting nurse or other home services: Yes (INSURANCE BUSINESS ANALYST 2-3 hours/day) Alcohol intake: never Comment: aware of trip hazard Patient Tobacco Use Status: Current everyday Tobacco user Smoking Start Date: 04/01/1964 Tobacco use type: Cigarette Cigarette Packs Per Day: 0.5 Cigarettes Per Day: 10 Years Smoked: 60 e-Cigarette/Vaping Use: Former Use Second Hand Smoke Exposure: No Advance Directives Date on File: 12/02/22 service: No Current occupational status: retired Sexual orientation: Straight/Heterosexual Cognitive needs: No Hearing needs: No Vision needs: Yes Female Reproductive History Menstrual Age of Menarche: 12 Physical Exam Vital Signs: Last Vital Signs Pulse 99 02/22/24 10:57 BP 106/60 02/22/24 10:57 BMI result Body Mass Index 31.8 Results AMB Hemoglobin A1c AMB Hemoglobin A1c 7.5 % Last Edit by ORION Rand on 02/22/24 11:14 Results Reviewed Results Reviewed: Laboratory Last Values Glucose (Clinic) 184 mg/dL (60-115) H 02/22/24 11:04 Hgb A1c (Clinic) 7.5 % (4.0-6.0) H 02/22/24 11:11 Assessment & Plan Assessment & Plan (1) Type 2 diabetes mellitus with hyperglycemia: Comment: Dr. Shipley Code(s): E11.65 - Type 2 diabetes mellitus with hyperglycemia Category: Medical Qualifiers: Diabetes mellitus intermediate project manager insulin use: with intermediate project manager use Qualified Code(s): E11.65 - Type 2 diabetes mellitus with hyperglycemia; Z79.4 - longterm (current) use of insulin Plan: Patient will increase her sliding scale 200-6 250-8 300-10 250 12. Continue tresiba 40 units (2) Multinodular thyroid: Comment: ([facility]) Code(s): E04.2 - Nontoxic multinodular goiter Category: Medical Plan: follow up scheduled with Dr Chirinos Orders: Orders AMB Hemoglobin A1c Today E11.65 - Type 2 diabetes mellitus with hyperglycemia Microalbumin, Random (w Creat) 6 Months E04.2 - Nontoxic multinodular goiter, E11.65 - Type 2 diabetes mellitus with hyperglycemia Comprehensive Met. Panel 6 Months E04.2 - Nontoxic multinodular goiter, E11.65 - Type 2 diabetes mellitus with hyperglycemia TSH reflex Free T4 6 Months E04.2 - Nontoxic multinodular goiter, E11.65 - Type 2 diabetes mellitus with hyperglycemia Hemoglobin A1c 6 Months E04.2 - Nontoxic multinodular goiter, E11.65 - Type 2 diabetes mellitus with hyperglycemia Lipid Panel 6 Months E04.2 - Nontoxic multinodular goiter, E11.65 - Type 2 diabetes mellitus with hyperglycemia Magnesium Today R25.2 - Cramp and spasm Basic Metabolic Panel Today R25.2 - Cramp and spasm IRON PROFILE Today R25.2 - Cramp and spasm Medications: Changed From insulin aspart U-100 (Novolog FlexPen U-100 Insulin aspart) Novolog sliding scale 3 times daily (200-250: 4 units, 251-300: 6 units, 301 - 350: 8 units, >351: 10 units) 30 mL 6RF Hyperglycemia To insulin aspart U-100 (Novolog FlexPen U-100 Insulin aspart) Novolog sliding scale 3 times daily (200-250: 6 units, 251-300: 8 units, 301 - 350: 10 units, >350: 12 units) 30 mL 6RF Hyperglycemia Refilled insulin degludec (Tresiba FlexTouch U-100 insulin) 40 units (0.4 mL) subcut DAILY 45 mL 3RF liraglutide (Victoza 3-Jeanmarie) 1.8 mg (0.3 mL) subcut DAILY 27 mL 11RF 90 days flash glucose sensor (FreeStyle Jill 2 Sensor kit) As directed 6 kits 3RF E11.65 - Type 2 diabetes mellitus with hyperglycemia pioglitazone 15 mg PO BEDTIME 90 tabs 3RF E11.65 - Type 2 diabetes mellitus with hyperglycemia empagliflozin (Jardiance) 25 mg PO DAILY 90 tabs 3RF Coding Level of Care Code Est Pt Level 4 (03179) Diagnoses Type 2 diabetes mellitus with hyperglycemia, with long-term current use of insulin E11.65; Z79.4 Diabetes mellitus mcfp insulin use: with intermediate project manager use Multinodular thyroid E04.2
[2024-02-22 10:57] VITALS: BP 106/60; PULSE 99; BMI 31.8
[2024-02-22 11:10] LABS: Glucose, Whole Blood 184 mg/dL (60-115)
== END 2024-02-22 11:33 | disposition home or self-care (01) ==
PROVIDERS: PCP Internal Medicine; Visit Provider Internal Medicine
DX: E11.65 Type 2 diabetes mellitus with hyperglycemia (principal); Z79.4 Long term (current) use of insulin; E04.2 Nontoxic multinodular goiter
CPT/HCPCS: 99214

== ENCOUNTER → 2024-02-22 10:49 | Outpatient (BNVA) | payer OTHER, SELFPAY | PROVIDERS: PCP Internal Medicine; Visit Provider Internal Medicine | DX: E11.65 Type 2 diabetes mellitus with hyperglycemia (principal); E04.2 Nontoxic multinodular goiter; R25.2 Cramp and spasm; Z79.4 Long term (current) use of insulin | CPT/HCPCS: 82947; 83036; 99212 ==

== ENCOUNTER 2024-03-19 07:17 | Outpatient (REF) | payer OTHER, SELFPAY ==
[2024-03-19 10:29] LABS: MANUAL DIFF FLAG NO
[2024-03-19 10:36] LABS: Basophils Percent Auto 0.4 % (0-2); Eosinophils Percent Auto 0.5 % (0-4); Hematocrit 45.4 % (37.0-47.0); Hemoglobin 14.8 g/dl (12.0-16.0); Imm Gran Abs Auto 0.02 X10*3/uL (0.00-0.03); Imm Gran Pct Auto 0.4 % (0.0-0.4); Lymphocytes Absolute Auto 1.4 X10*3/uL (1.2-4.9); Lymphocytes Percent Auto 25.5 % (20-40); Mean Corpuscular HGB Conc 32.6 g/dl (31.0-35.0); Mean Corpuscular Hemoglobin 29.7 pg (27.0-33.0); Mean Corpuscular Volume 91.2 fL (80.0-98.0); Mean Platelet Volume 10.8 fL (9.4-12.3); Monocytes Absolute Auto 0.5 X10*3/uL (0.1-1.2); Monocytes Percent Auto 8.8 % (2-11); Neutrophils Absolute Auto 3.6 x10*3/uL (2.0-8.3); Neutrophils Percent Auto 64.4 % (45-73); Platelet Count 246 X10*3/uL (160-400); Red Blood Count 4.98 X10*6/uL (4.20-5.50); Red Cell Distribution Width 14.4 % (11.0-16.0); White Blood Count 5.5 X10*3/uL (4.8-10.8)
[2024-03-19 11:08] LABS: Alanine Aminotransferase 16 U/L (0-31); Albumin Level 4.3 g/dL (3.5-5.0); Alkaline Phosphatase 51 U/L (39-117); Anion Gap 16 (12-20); Aspartate Amino Transferase 20 U/L (5-31); Bilirubin Total 0.4 mg/dL (0.0-1.0); Blood Urea Nitrogen 15 mg/dL (9-16); Calcium 9.9 mg/dL (8.4-10.2); Carbon Dioxide 26 mmol/L (22-29); Chloride 106 mmol/L (96-108); Estimated Glomerular Filt Rate > 60; Glucose Random 138 mg/dL (60-115); Iron 80 mcg/dL (30-160); Percent Iron Saturation 22 % (15-50); Sodium 143 mmol/L (135-145); Total Iron Binding Capacity 365 mcg/dL (228-428); Total Protein 6.9 g/dL (6.5-8.0); Unsaturated Iron Binding 285 ug/dL
== END 2024-03-19 07:18 | disposition home or self-care (01) ==
LOC: HO.HMGCLDS 07:17
PROVIDERS: PCP Internal Medicine; Referring Provider Internal Medicine; Visit Provider Internal Medicine
DX: M48.062 Spinal stenosis, lumbar region with neurogenic claudication (principal); R25.2 Cramp and spasm
CPT/HCPCS: 36415; 80053; 83540; 83735; 85025

== ENCOUNTER 2024-04-06 10:02 | Outpatient (AMB) | payer OTHER, SELFPAY ==
[2024-04-06 10:06] VITALS: BP 102/54; PULSE 106; BMI 31.6
--- NOTE | 2024-04-06 10:06 | A.OFFVIS_ITS ---
Vital Signs 04/06/24 10:06 Height 5 ft 5.5 in Weight 193 lb 1.999 oz BMI 31.6 BP 102/54 L Blood Pressure Location Lt brachial Position Sitting Pulse 106 H Pulse Source Pulse Oximeter Intake Visit Reasons: MNG-conf Intake Note: Patient present today for MNG follow up visit. 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 Accompanied by: Self / Same As Patient Allergies aspirin [ASPIRIN] Allergy (Severe, Verified 04/06/24 10:10) GI bleed, stomach upset ibuprofen [IBUPROFEN] Allergy (Severe, Verified 04/06/24 10:10) GI Bleed, stomach upset valsartan [From Diovan] Allergy (Severe, Verified 04/06/24 10:10) hives ziprasidone [From Geodon] Allergy (Severe, Verified 04/06/24 10:10) RASH-PALPITATIONS azithromycin Allergy (Intermediate, Verified 04/06/24 10:10) facial swelling metformin [METFORMIN] Allergy (Intermediate, Verified 04/06/24 10:10) NAUSEA & VOMITING, GI upset cephalexin [From KEFLEX] Allergy (Unknown, Verified 04/06/24 10:10) can't remember lisinopril Allergy (Unknown, Verified 04/06/24 10:10) cough NSAIDS (Non-Steroidal Anti-Inflamma [NSAIDS (NON-STEROIDAL ANTI-INFLAMMA] Adverse Reaction (Severe, Verified 04/06/24 10:10) HX OF GI BLEED tramadol [Ultram] Adverse Reaction (Severe, Verified 04/06/24 10:10) GI upset sulfamethoxazole [From Bactrim] Adverse Reaction (Intermediate, Verified 04/06/24 10:10) Hives tiotropium [From Spiriva with HandiHaler] Adverse Reaction (Intermediate, Verified 04/06/24 10:10) Unknown trimethoprim [From Bactrim] Adverse Reaction (Intermediate, Verified 04/06/24 10:10) Hives doxycycline Adverse Reaction (Mild, Verified 04/06/24 10:10) Stomach Upset Medication List - Last Reconciled 04/06/24 by Liz Chirinos MD acetaminophen 1,000 mg (2 x 500 mg) PO TID PRN albuterol sulfate 90 mcg/actuation 2 puffs inhalation Q4H PRN 60 days amitriptyline 10 mg PO BEDTIME aripiprazole 20 mg PO DAILY atorvastatin 40 mg PO BEDTIME brimonidine 0.15% 1 drp ophthalmic (eye) BID cholecalciferol (vitamin D3) 50 mcg PO BEDTIME ciprofloxacin HCl (Cipro) 250 mg PO BID clonazepam 1 tab PO BID PRN cyanocobalamin (vitamin B-12) (Vitamin B-12) 500 mcg PO DAILY 90 days [dressing stick As directed] [easy on sock aid As directed] empagliflozin (Jardiance) 25 mg PO DAILY esomeprazole magnesium 40 mg PO DAILY@0630 fenofibrate 160 mg PO DAILY fexofenadine 180 mg PO DAILY flash glucose sensor (FreeStyle Jill 2 Sensor kit) As directed fluticasone propion-salmeterol 115-21 mcg/actuation (Advair HFA) 2 puffs inhalation Q12H gabapentin 600 mg PO TID 30 days insulin aspart U-100 (Novolog FlexPen U-100 Insulin aspart) Novolog sliding scale 3 times daily (200-250: 6 units, 251-300: 8 units, 301 - 350: 10 units, >350: 12 units) insulin degludec (Tresiba FlexTouch U-100 insulin) 40 units (0.4 mL) subcut DAILY levalbuterol tartrate 45 mcg/actuation 2 puffs inhalation Q4-6H PRN levothyroxine 25 mcg PO DAILY@0600 liraglutide (Victoza 3-Jeanmarie) 1.8 mg (0.3 mL) subcut DAILY 90 days netarsudil-latanoprost 0.02-0.005 % (Rocklatan) 1 drp ophthalmic (eye) BEDTIME [new lift chair As directed] nicotine 1 patch transdermal DAILY oxycodone 5 mg PO BID PRN pen needle, diabetic (Comfort EZ Pen Hanna) As directed injects 3 X/day pioglitazone 15 mg PO BEDTIME quetiapine 50 mg PO BID PRN quetiapine 150 mg PO BEDTIME sennosides-docusate sodium 8.6-50 mg (Stimulant Laxative Plus) 2 tab-caps (2 x 8.6-50 mg) PO DAILY 90 days [Transfer wheelchair As directed] vit C,B-Bd-dftgl-lutein-zeaxan 250-90-40-1 mg (PreserVision AREDS-2) 1 tab PO BID [WHEELCHAIR As directed] HPI Comments Details: 73 YO F who is seen in F/U for NTMNG . She also has a history insulin-dependent type 2 diabetes mellitus and follows in our office, last saw Dr. Marmolejo in January 2024. This was not addressed in today's visit. NTMNG: Had thyroid US which revealed large 2.0 cm R superior nodule. Underwent FNA of this nodule 05/10/19 with Benign ([place] Category II) cytology. Denies any compressive symptoms. Denies any history of head or neck irradiation. No history of thyroid cancer. She also has a history of hypothyroidism, on levothyroxine 25 mcg daily. Most recent TSH from January 2024 was normal at 1.32. Does have constipation. Patient currently denies heat or cold intolerance, hair loss, palpitation, anxiety, weight changes, mood changes, low energy, changes in appearance of eyes or vision changes, tremors, increased diaphoresis or dry skin. ? Patient denies any difficulty swallowing, pain on swallowing or difficulty breathing. Feels like voice is deeper Is on O2 for COPD . Chronic active smoker, smokes 2 ppd . Patient denies any history of childhood neck radiation. Denies having ever used lithium, amiodarone or biotin supplements. Patient denies any family history of thyroid cancer or thyroid disease. Review of systems Constitutional: no fevers, chills HEENT: no changes in vision Cardiac: No chest pain, discomfort or palpitations. Pulmonary: SOB with exertion GI:No abdominal pain, no nausea or vomiting, no anorexia, no blood in stool : no burning micturition, dysuria or increase in urinary frequency Physical exam General: sitting comfortably in no acute distress HEENT: normocephalic/atraumatic, moist oral mucosa Neck: supple, symmetrical,right 2 cm palpable nodule , no dorsocervical or supraclavicular fat pads Cardiac: normal heart sounds Pulm: normal breath sounds B/L, no added breath sounds Abd: not distended, no tenderness Extremities: no edema, no signs of myxedema Neuro: AAO x3, Speech: normal, no facial droop, moving all 4 extremities [facility] Medical History (Updated 04/06/24 @ 11:08 by Liz Chirinos MD) Dermatitis of vulva Uses wheelchair Wears dentures Supplemental oxygen dependent Slow to wake up after anesthesia Lumbar spinal stenosis Smoker Nicotine dependence, cigarettes, uncomplicated Acute respiratory failure with hypoxia Acute exacerbation of chronic obstructive pulmonary disease (COPD) Vulvar ulcer Recurrent major depression-severe Lower extremity pain Sialoadenitis Jaw pain العلي (dyspnea on exertion) Chest pain Osteopenia (~2015) Sinus tachycardia Pulmonary nodule Menopausal state Artificial menopause state Constipation Nocturnal hypoxemia COPD (chronic obstructive pulmonary disease) Spinal stenosis Depression Vitamin D deficiency Multinodular thyroid HLD (hyperlipidemia) T2DM (type 2 diabetes mellitus) (~2008) Surgical History History of cataract surgery S/P thyroid biopsy History of lithotripsy History of cardiac catheterization Hx of colonoscopy Hx of arthroscopy of left knee Hx of spinal fusion Hx of cholecystectomy Family History Father No problems noted. 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) Alcohol intake: never Comment: aware of trip hazard Patient Tobacco Use Status: Current everyday Tobacco user Smoking Start Date: 04/01/1964 Tobacco use type: Cigarette Cigarette Packs Per Day: 0.5 Cigarettes Per Day: 10 Years Smoked: 60 e-Cigarette/Vaping Use: Former Use Second Hand Smoke Exposure: No Advance Directives Date on File: 12/02/22 service: No Current occupational status: retired Sexual orientation: Straight/Heterosexual Cognitive needs: No Hearing needs: No Vision needs: Yes Female Reproductive History Menstrual Age of Menarche: 12 Results Reviewed Results Reviewed: Laboratory Tests 02/10/24 03/19/24 12:50 07:36 Creatinine 0.84 TSH 1.32 Free T4 1.01 US THYROID 12/18 I reviewed the images myself that showed a right mid/superior 2.9 cm nodule which is solid, isoechoic with punctate echogenic foci. Other subcentimeter nodules noted. This nodule has increased in size significantly compared to ultrasound in January of 2022. Given this is a TR 5 nodule, per ARTURO this is a high suspicion nodule with greater than 50% chance of malignancy, even though this has been biopsied before in 2019 with benign cytology would recommend repeat biopsy get when it significant change in size. CLINICAL INFORMATION: Nontoxic multinodular goiter. COMPARISON: Ultrasound soft tissue head/neck thyroid dated 01/27/2023 and 02/18/2022. TECHNIQUE: Linear transducer grayscale and color Doppler examination with attention to the region of the thyroid. FINDINGS: SIZE: Measurements of the thyroid lobes and nodules are given in sagittal, anteroposterior and transverse dimensions respectively. Right Thyroid Lobe: 6.2 x 3.0 x 2.6 cm, volume 25.3 mL. Previously 5.8 x 2.6 x 2.4 cm, volume 18.9 mL. Parenchyma: The gland echotexture is homogeneous. Thyroid vascularity is normal. Left Thyroid Lobe: 4.2 x 1.7 x 1.4 cm, volume 5.2 mL. Previously 4.7 x 1.6 x 1.3 cm, volume 5.1 mL. Parenchyma: The gland echotexture is homogeneous. Thyroid vascularity is normal. Isthmus: 0.7 cm in maximum AP dimension. Previously 0.4 cm. Estimated total number of nodules greater than or equal to 1 cm: 1. [employer] nodules are described as follows: 1. Location: Right superior/mid. Size: 2.9 x 2.2 x 2.2 cm, volume 7.3 mL. Previously: 2.9 x 2.2 x 1.9 cm, volume 6.2 mL on 01/27/2023 and 2.3 x 2.0 x 1.7 cm, volume 4.1 mL on 02/18/2022 Nodule characteristics: Composition: Solid (2). Echogenicity: Isoechoic (1). Shape: Taller than wide (3). Margins: Ill-defined (0). Echogenic Foci: Punctate echogenic foci (3). ACR TI-RADS total points: 9 Previous: 9 ACR TI-RADS category: 5 Previous: 5 Significant change in size (>/= 20% in 2 dimensions and minimal increase of 2 mm or 50% or greater increase in volume): Yes Change in features: No Change in ACR TI-RADS risk category: No 2. Location: Right inferior. Size: 0.5 x 0.5 x 0.6 cm, volume 0.1 mL. Previously: 0.6 x 0.4 x 0.6 cm, volume 0.1 mL. Nodule characteristics: Composition: Solid (2). Echogenicity: Very hypoechoic (3). Shape: Not taller than wide (0). Margins: Smooth (0). Echogenic Foci: Punctate echogenic foci (3). ACR TI-RADS total points: 8 Previous: 7 ACR TI-RADS category: 5 Previous: 5 Significant change in size (>/= 20% in 2 dimensions and minimal increase of 2 mm or 50% or greater increase in volume): No Change in features: Yes Change in ACR TI-RADS risk category: No 3. Location: Left superior. Size: 0.6 x 0.2 x 0.3 cm, volume 0.02 mL. Previously: 0.4 x 0.2 x 0.4 cm, volume 0.01 mL. Nodule characteristics: Composition: Solid (2). Echogenicity: Isoechoic (1). Shape: Not taller than wide (0). Margins: Smooth (0). Echogenic Foci: None (0). ACR TI-RADS total points: 3 Previous: 3 ACR TI-RADS category: 3 Previous: 3 Significant change in size (>/= 20% in 2 dimensions and minimal increase of 2 mm or 50% or greater increase in volume): Yes Change in features: No Change in ACR TI-RADS risk category: No NODES: No lymphadenopathy is seen in the tissue surrounding the thyroid gland. US/US thyroid IMPRESSION: Enlarged, multinodular thyroid gland. 2.9 x 2.2 x 1.9 cm, volume 6.2 mm right mid to upper TR5 thyroid nodule meets criteria for biopsy and has increased in size over time measuring 2.3 x 2.0 x 1.7 cm, volume 4.1 mL on 02/18/2022. Correlation with prior biopsy results and clinical exam recommended to determine further management including possible repeat biopsy. Assessment & Plan Assessment & Plan (1) Multinodular thyroid: Comment: ([facility]) Code(s): E04.2 - Nontoxic multinodular goiter Category: Medical Plan: Patient with no history of head or neck radiation, with no family history of thyroid cancer with a history of nontoxic multinodular goiter diagnosed 2018, with a right superior/mid dominant nodule measuring 2.2 cm at the time with benign cytology. She had an ultrasound in 2021 which showed significant change in the size of the nodule which now measures up to 2.9 cm in size. US THYROID 12/18 I reviewed the images myself that showed a right mid/superior 2.9 cm nodule which is solid, isoechoic with punctate echogenic foci. Other subcentimeter nodules noted. This nodule has increased in size significantly compared to ultrasound in January of 2022. Given this is a TR 5 nodule, per ARTURO this is a high suspicion nodule with greater than 50% chance of malignancy, even though this has been biopsied before in 2019 with benign cytology would recommend repeat biopsy get given significant change in size. I explained that it is common to have thyroid nodules. About 95% of the time these nodules are benign. However if the nodule is > 1 cm in size or suspicious on ultrasound then a fine need aspiration biopsy is recommended. We discussed that a FNAB involves 4-5 passes with a small gauge needle and material obtained is sent off for cytology.If the cytopathology is benign then the nodule will be followed annually with repeat ultrasounds. However if it is suspicious or malignant, we will need to discuss further management. Indeterminate cytology can be further investigated with repeat FNA, genetic testing or empiric lobectomy. Malignant cytology is managed with either lobectomy or total thyroidectomy. We discussed briefly that thyroid cancer is, in most patients, an indolent disease that does not affect mortality. We will arrange for FNA of the right superior/mid 2.9 cm thyroid nodule at next available opening and patient will follow up with me in clinic thereafter for results and further decision making. 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 Currently on levothyroxine 25 mcg daily. She is biochemically euthyroid. Most recent TSH from January 2024 within normal limits. Plan: -continue levothyroxine 25 mcg daily -annual TFTs Plan I spent 30 minutes in reviewing the record, seeing the patient and documenting in the medical record. 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
== END 2024-04-06 10:42 | disposition home or self-care (01) ==
PROVIDERS: PCP Internal Medicine; Visit Provider Student in an Organized Health Care Education/Training Program
DX: E04.2 Nontoxic multinodular goiter (principal); E06.3 Autoimmune thyroiditis
CPT/HCPCS: 99214

== ENCOUNTER → 2024-04-06 10:02 | Outpatient (BNVA) | payer OTHER, SELFPAY | PROVIDERS: PCP Internal Medicine; Visit Provider Student in an Organized Health Care Education/Training Program | DX: E04.2 Nontoxic multinodular goiter (principal); E06.3 Autoimmune thyroiditis; E11.9 Type 2 diabetes mellitus without complications; J44.9 Chronic obstructive pulmonary disease, unspecified; F17.210 Nicotine dependence, cigarettes, uncomplicated; Z79.4 Long term (current) use of insulin; Z99.81 Dependence on supplemental oxygen | CPT/HCPCS: 99212 ==

== ENCOUNTER 2024-04-25 09:35 | Outpatient (REF) | payer OTHER, SELFPAY ==
--- NOTE | 2024-04-25 10:37 | PM.PROC ---
Brief Operative Note Date of procedure: 04/25/24 Pre-op diagnosis: right superior/mid 2.9 cm thyroid nodule FNA biopsy Post-op diagnosis: same Procedure: THYROID FINE NEEDLE ASPIRATION PROCEDURE NOTE ? PROCEDURE PERFORMED: Ultrasound-guided FNA of thyroid nodule ? OPERATORS: Dr. Liz Chirinos ? INDICATION: right superior/mid 2.9 cm thyroid nodule ; FNA performed to assess for malignancy ? DESCRIPTION OF PROCEDURE: The indications for FNA (to assess for malignancy) were reviewed with the patient in detail. Potential complications (e.g., bleeding, infection, damage to local structures, absence of clear diagnosis after FNA) were reviewed. Alternatives to FNA including conservative observation or surgery were described. The patient understood and agreed to proceed. This was documented by the signing of the written informed consent form. A time-out was performed to confirm the patient's identity and the site of planned FNA. The nodule of interest was identified using ultrasound (14 MHz linear array probe). The site of FNA was then draped in the usual fashion and carefully cleaned and prepared using alcohol swabs. The skin at the previously-identified site of needle insertion was iced and sprayed with numbing spray. Under ultrasound guidance, 4__ passes were performed using a 1.5-inch, 25-gauge needle, and sample was obtained via capillary action. The needle tip was clearly visualized to be within the nodule at the time of sampling for _4_ of __4 passes The patient tolerated the procedure well. There were no immediate complications. A small adhesive bandage was applied, and the patient was advised to take acetaminophen (rather than NSAIDs) for any discomfort and to report any signs of inflammation/infection or marked swelling. IMPRESSION: Technically successful ultrasound-guided fine needle aspiration ofright superior/mid 2.9 cm thyroid nodule. PLAN: The patient was advised that I will provide follow-up regarding the cytology result and any subsequent plans. Liz Chirinos MD Endocrinology Attending Condition: stable Disposition: same day
== END 2024-04-25 09:36 | disposition home or self-care (01) ==
LOC: HO.US 09:35
PROVIDERS: PCP Internal Medicine; Visit Provider Student in an Organized Health Care Education/Training Program
DX: E04.2 Nontoxic multinodular goiter (principal)
CPT/HCPCS: 10005; 88173

== ENCOUNTER → 2024-04-25 09:35 | Outpatient (BNV) | payer OTHER, SELFPAY | PROVIDERS: PCP Internal Medicine; Visit Provider Student in an Organized Health Care Education/Training Program | DX: E04.2 Nontoxic multinodular goiter (principal) | CPT/HCPCS: 10005 ==

== ENCOUNTER 2024-04-26 10:14 | Outpatient (AMB) | payer OTHER, SELFPAY ==
--- NOTE | 2024-04-26 10:27 | MHC.OFFVIS ---
Vital Signs 04/26/24 10:28 Height 5 ft 5.5 in Weight 190 lb 11.198 oz BMI 31.2 BP 102/68 Blood Pressure Location Lt brachial Position Sitting Pulse 81 Pulse Source Pulse Oximeter Pulse Oximetry (%) 90 L Oxygen Delivery Method Room Air Intake Visit Reasons: COPD Intake Note: pt is here for follow up and using oxygen at night, and feeling okay today Environmental Compliance Technician Required: No Allergies aspirin [ASPIRIN] Allergy (Severe, Verified 04/26/24 10:39) GI bleed, stomach upset ibuprofen [IBUPROFEN] Allergy (Severe, Verified 04/26/24 10:39) GI Bleed, stomach upset valsartan [From Diovan] Allergy (Severe, Verified 04/26/24 10:39) hives ziprasidone [From Geodon] Allergy (Severe, Verified 04/26/24 10:39) RASH-PALPITATIONS azithromycin Allergy (Intermediate, Verified 04/26/24 10:39) facial swelling metformin [METFORMIN] Allergy (Intermediate, Verified 04/26/24 10:39) NAUSEA & VOMITING, GI upset cephalexin [From KEFLEX] Allergy (Unknown, Verified 04/26/24 10:39) can't remember lisinopril Allergy (Unknown, Verified 04/26/24 10:39) cough NSAIDS (Non-Steroidal Anti-Inflamma [NSAIDS (NON-STEROIDAL ANTI-INFLAMMA] Adverse Reaction (Severe, Verified 04/26/24 10:39) HX OF GI BLEED tramadol [Ultram] Adverse Reaction (Severe, Verified 04/26/24 10:39) GI upset sulfamethoxazole [From Bactrim] Adverse Reaction (Intermediate, Verified 04/26/24 10:39) Hives tiotropium [From Spiriva with HandiHaler] Adverse Reaction (Intermediate, Verified 04/26/24 10:39) Unknown trimethoprim [From Bactrim] Adverse Reaction (Intermediate, Verified 04/26/24 10:39) Hives doxycycline Adverse Reaction (Mild, Verified 04/26/24 10:39) Stomach Upset Medication List - Last Reconciled 04/26/24 by Nicholas Richter MD acetaminophen 1,000 mg (2 x 500 mg) PO TID PRN albuterol sulfate 90 mcg/actuation 2 puffs inhalation Q4H PRN 60 days aripiprazole 20 mg PO DAILY atorvastatin 40 mg PO BEDTIME brimonidine 0.15% 1 drp ophthalmic (eye) BID cholecalciferol (vitamin D3) 50 mcg PO BEDTIME clonazepam 1 tab PO BID PRN cyanocobalamin (vitamin B-12) (Vitamin B-12) 500 mcg PO DAILY 90 days [dressing stick As directed] [easy on sock aid As directed] empagliflozin (Jardiance) 25 mg PO DAILY esomeprazole magnesium 40 mg PO DAILY@0630 fenofibrate 160 mg PO DAILY fexofenadine 180 mg PO DAILY flash glucose sensor (FreeStyle Jill 2 Sensor kit) As directed fluticasone propion-salmeterol 115-21 mcg/actuation (Advair HFA) 2 puffs inhalation Q12H gabapentin 600 mg PO TID 30 days insulin aspart U-100 (Novolog FlexPen U-100 Insulin aspart) Novolog sliding scale 3 times daily (200-250: 6 units, 251-300: 8 units, 301 - 350: 10 units, >350: 12 units) insulin degludec (Tresiba FlexTouch U-100 insulin) 40 units (0.4 mL) subcut DAILY levalbuterol tartrate 45 mcg/actuation 2 puffs inhalation Q4-6H PRN levothyroxine 25 mcg PO DAILY@0600 liraglutide (Victoza 3-Jeanmarie) 1.8 mg (0.3 mL) subcut DAILY 90 days mirtazapine (Remeron) 15 mg PO BEDTIME netarsudil-latanoprost 0.02-0.005 % (Rocklatan) 1 drp ophthalmic (eye) BEDTIME [new lift chair As directed] nicotine 1 patch transdermal DAILY pen needle, diabetic (Comfort EZ Pen [place]) As directed injects 3 X/day pioglitazone 15 mg PO BEDTIME quetiapine 50 mg PO BID PRN quetiapine 150 mg PO BEDTIME sennosides-docusate sodium 8.6-50 mg (Stimulant Laxative Plus) 2 tab-caps (2 x 8.6-50 mg) PO DAILY 90 days [Transfer wheelchair As directed] vit C,I-Uk-sqysq-lutein-zeaxan 250-90-40-1 mg (PreserVision AREDS-2) 1 tab PO BID [WHEELCHAIR As directed] Do you need a note to return to daycare/school/sports/work: No HPI HPI COPD: Details: ARELI, 73 YEARS OLD FEMALE, LIFELONG SMOKER, AND HAS MODERATELY ADVANCED COPD. SHE IS COMING FOR ROUTINE FOLLOW-UP AFTER 3 MONTHS. STILL SMOKING CLOSE TO 1 PACK A DAY, HAS TRIED THE NICOTINE PATCHES OFF AND ON WITHOUT MUCH HELP. CONTINUE TO HAVE MILD COUGH WITH SOME WHEEZING OFF AND ON. DENIES ANY SIGNIFICANT SHORTNESS OF BREATH WHEN SHE WALKS AROUND WITH HER WALKER. HAS HAD NO ACUTE EXACERBATION ACUTE ATTACKS OF RESPIRATORY FAILURE. SHE DOES USE O2 2 L/MINUTE AT NIGHT, HAS NOT REQUIRED TO USE DURING THE DAYTIME. SHE IS BEING FOLLOWED FOR PULMONARY NODULES AND BECAUSE OF PERSISTENT DENSITY IN THE LEFT LOWER LOBE, SHE HAD A PET SCAN IN SEPTEMBER 2023 , MOST OF THE NODULES AND DENSITIES WERE NOT FDG ACTIVE . [facility] Medical History Dermatitis of vulva Uses wheelchair Wears dentures Supplemental oxygen dependent Slow to wake up after anesthesia Lumbar spinal stenosis Smoker Nicotine dependence, cigarettes, uncomplicated Acute respiratory failure with hypoxia Acute exacerbation of chronic obstructive pulmonary disease (COPD) Vulvar ulcer Recurrent major depression-severe Lower extremity pain Sialoadenitis Jaw pain العلي (dyspnea on exertion) Chest pain Osteopenia (~2015) Sinus tachycardia Pulmonary nodule Menopausal state Artificial menopause state Constipation Nocturnal hypoxemia COPD (chronic obstructive pulmonary disease) Spinal stenosis Depression Vitamin D deficiency Multinodular thyroid HLD (hyperlipidemia) T2DM (type 2 diabetes mellitus) (~2008) Surgical History History of cataract surgery S/P thyroid biopsy History of lithotripsy History of cardiac catheterization Hx of colonoscopy Hx of arthroscopy of left knee Hx of spinal fusion Hx of cholecystectomy Family History Father No problems noted. Mother Cancer Diabetes Social History Household Members: None Housing: Apartment Are you a primary child care cook to a significant other at home: No Do you presently have visiting nurse or other home services: Yes (COMMERCIAL ARTIST 2-3 hours/day) Alcohol intake: never Comment: aware of trip hazard Patient Tobacco Use Status: Current everyday Tobacco user Smoking Start Date: [birth year]/01/1964 Tobacco use type: Cigarette Cigarette Packs Per Day: 1 Cigarettes Per Day: 20 Years Smoked: 60 e-Cigarette/Vaping Use: Former Use Second Hand Smoke Exposure: No Advance Directives Date on File: 12/02/22 service: No Current occupational status: retired Sexual orientation: Straight/Heterosexual Cognitive needs: No Hearing needs: No Vision needs: Yes Female Reproductive History Menstrual Age of Menarche: 12 Review of Systems Const All systems reviewed & are unremarkable except as noted in HPI and below Eyes Reports no additional complaints ENT Reports nasal congestion (Mild intermittent) Card Denies chest pain, Denies irregular heart rhythm and Denies leg edema Resp Reports as per HPI GI Reports constipation and Reports dyspepsia Reports no additional complaints Musc Reports abnormal gait (Gait impaired has to use walker), Reports back pain and Reports arthralgias Skin/Breast Reports system reviewed and no additional complaints, except as documented Neuro Reports abnormal gait (Gait impaired has to use walker) Psych Reports anxiety, Reports depression and Reports mood swings Endo Reports other (Being treated for diabetes mellitus) Physical Exam Vital Signs: Last Vital Signs Pulse 81 04/26/24 10:28 BP 102/68 04/26/24 10:28 Pulse Ox 90 L 04/26/24 10:28 Oxygen Delivery Method Room Air 04/26/24 10:28 BMI result Body Mass Index 31.2 Const General: comfortable and no acute distress Orientation/consciousness: patient oriented x3 HEENT Head: Yes normal to inspection General nose exam: No nasal polyps present and No nasal discharge present Face and sinus: Yes sinuses nontender Mouth: oropharynx abnormals (Crowded, Mallampati class 4) Throat: Yes posterior oropharynx normal Eyes General: appearance normal, both eyes and all related structures Neck Neck: Yes normal visual inspection, Yes no lymphadenopathy, Yes trachea midline and Yes no JVD Thyroid: Thyroid normal Chest Chest palpation & inspection: normal inspection of the chest, normal palpation of entire chest wall and no tenderness Resp Other: Percussion note resonant, breath sounds are distant with prolonged expiratory phase. Lungs are clear today no audible wheezes rhonchi or crepitations. Cardio Palpation: normal PMI Rate: regular rate Rhythm: regular rhythm Heart sounds: no gallops and no murmurs GI Palpation (GI): Soft to palpation, nontender, No hepatosplenomegaly present and no masses Auscultation: normal bowel sounds Back/Spine/Pelvis Thoracic/Lumbar Spine: thoracic and lumbar spine normal to inspection and thoraco-lumbar ROM limited Skin General skin exam: no rashes or lesions noted Neuro General: patient oriented x3, No gait normal (Somewhat unsteady gait, uses walker) and no focal motor deficits Cranial nerves: Yes CN's II-XII intact bilaterally Extrem General: Yes normal to inspection, Yes no clubbing, cyanosis or edema and Yes no calf tenderness Psych Appearance: grossly normal and well kempt Speech and movement: Normal speech and movement present Assessment & Plan Assessment & Plan (1) Smoker: Comment: Patient is a lifelong smoker. Has tried to quit smoking many times, but has not been able to quit complete. At present smoking 1 pack of cigarettes a day again. Code(s): F17.200 - Nicotine dependence, unspecified, uncomplicated Category: Social Hx Plan: Discussed with her about smoking, she finds it hard to quit due to her psychiatric problems. Advised to use nicotine patch and cut down the cigarettes 2. At least 10 per day. (2) COPD (chronic obstructive pulmonary disease): Comment: Long-time chronic obstructive pulmonary disease, moderately severe,, controlled and stable. At present she has no active cough or wheezing. Code(s): J44.9 - Chronic obstructive pulmonary disease, unspecified Category: Medical Plan: Continue present medications including Advair 115-212 puffs b.i.d. and levalbuterol -45 2 puffs Q 4-6 hours p.r.n. (3) Nocturnal hypoxemia: Comment: She has evidence of nocturnal hypoxemia since 2007 . That is when she had an OVERNIGHT SLEEP STUDY, showing only minimal degree of ADDIS, total sleep time AHI 5.5, But persistent nocturnal hypoxemia. She has been treated with oxygen at night 2 L/MT which she has been using regularly. . Code(s): G47.34 - Idiopathic sleep related nonobstructive alveolar hypoventilation Category: Medical Plan: Same as above (4) Pulmonary nodule: Comment: Patient has multiple small pulmonary nodules unchanged from before Two ground-glass nodular densities in lower lobes are somewhat increased from before. Need to be followed up closely. She is being followed by, our Lung screening team. Last CT scan on 09/06/23 showed persistent density in the left lower lobe, , PET scan did not show any activity. She is due for a CT scan , in February of this year, (at 6 months interval ) She has had PET scan, and none of the nodules are density in the left lower lobe or FDG positive. Code(s): R91.1 - Solitary pulmonary nodule Category: Medical Plan: Will continue with annual low-dose CT scan Coding Level of Care Code Est Pt Level 4 (33526) Diagnoses Smoker F17.200 COPD (chronic obstructive pulmonary disease) J44.9 Nocturnal hypoxemia G47.34 Pulmonary nodule R91.1
[2024-04-26 10:28] VITALS: BP 102/68; PULSE 81; O2SAT 90; BMI 31.2
== END 2024-04-26 10:39 | disposition home or self-care (01) ==
LOC: HO.HPS 10:15
PROVIDERS: PCP Internal Medicine; Visit Provider Internal Medicine
DX: F17.200 Nicotine dependence, unspecified, uncomplicated (principal); J44.9 Chronic obstructive pulmonary disease, unspecified; G47.34 Idiopathic sleep related nonobstructive alveolar hypoventilation; R91.1 Solitary pulmonary nodule
CPT/HCPCS: 99214

== ENCOUNTER → 2024-04-26 10:14 | Outpatient (BNVA) | payer OTHER, SELFPAY | PROVIDERS: PCP Internal Medicine; Visit Provider Internal Medicine | DX: J44.9 Chronic obstructive pulmonary disease, unspecified (principal); G47.34 Idiopathic sleep related nonobstructive alveolar hypoventilation; R91.1 Solitary pulmonary nodule; F17.210 Nicotine dependence, cigarettes, uncomplicated | CPT/HCPCS: 99212 ==

== ENCOUNTER 2024-04-26 12:19 | Outpatient (REF) | payer OTHER, SELFPAY ==
[2024-04-26 13:19] LABS: Appearance Urine Clear; Color Urine Yellow; Glucose Urine UA >=1000 mg/dL (Negative); Leukocyte Esterase Urine Negative (Negative); Nitrite Urine Negative (Negative); PH 5.5 (5.0-9.0); Specific Gravity - Urine >= 1.030 (1.005-1.025); UMIC TRIGGER UACC YES; Urine Blood Negative (Negative); Urine Ketones Negative (Negative); Urine Protein Negative (Neg-Trace)
[2024-04-26 13:33] LABS: Bacteria Urine 2+ (None Seen); Hyaline Casts Urine 0-2 /LPF (0-2); Squamous Epithelial Cell Urine 0-2 /HPF (0-2); UACC Culture Trigger YES; WBC Urine 21-50 /HPF (0-5)
== END 2024-04-26 12:20 | disposition home or self-care (01) ==
LOC: HO.HMGCLDS 12:19
PROVIDERS: PCP Internal Medicine; Visit Provider Internal Medicine
DX: R30.0 Dysuria (principal)
CPT/HCPCS: 81001; 87086; 87088; 87186

== ENCOUNTER 2024-04-30 09:35 | Outpatient (AMB) | payer OTHER, SELFPAY ==
[2024-04-30 09:39] VITALS: BP 104/58; PULSE 99; O2SAT 90; BMI 31.3
--- NOTE | 2024-04-30 09:39 | MHC.PC.OV ---
Vital Signs 04/30/24 09:39 Height 5 ft 5.5 in Weight 191 lb 0.2 oz BMI 31.3 BP 104/58 L Blood Pressure Location Lt brachial Position Sitting Pulse 99 Pulse Source Pulse Oximeter Pulse Oximetry (%) 90 L Oxygen Delivery Method Room Air Intake Visit Reasons: 3 Month Follow up Robotic Toy Inventor Required: No Allergies aspirin [ASPIRIN] Allergy (Severe, Verified 04/30/24 09:44) GI bleed, stomach upset ibuprofen [IBUPROFEN] Allergy (Severe, Verified 04/30/24 09:44) GI Bleed, stomach upset valsartan [From Diovan] Allergy (Severe, Verified 04/30/24 09:44) hives ziprasidone [From Geodon] Allergy (Severe, Verified 04/30/24 09:44) RASH-PALPITATIONS azithromycin Allergy (Intermediate, Verified 04/30/24 09:44) facial swelling metformin [METFORMIN] Allergy (Intermediate, Verified 04/30/24 09:44) NAUSEA & VOMITING, GI upset cephalexin [From KEFLEX] Allergy (Unknown, Verified 04/30/24 09:44) can't remember lisinopril Allergy (Unknown, Verified 04/30/24 09:44) cough NSAIDS (Non-Steroidal Anti-Inflamma [NSAIDS (NON-STEROIDAL ANTI-INFLAMMA] Adverse Reaction (Severe, Verified 04/30/24 09:44) HX OF GI BLEED tramadol [Ultram] Adverse Reaction (Severe, Verified 04/30/24 09:44) GI upset sulfamethoxazole [From Bactrim] Adverse Reaction (Intermediate, Verified 04/30/24 09:44) Hives tiotropium [From Spiriva with HandiHaler] Adverse Reaction (Intermediate, Verified 04/30/24 09:44) Unknown trimethoprim [From Bactrim] Adverse Reaction (Intermediate, Verified 04/30/24 09:44) Hives doxycycline Adverse Reaction (Mild, Verified 04/30/24 09:44) Stomach Upset Tobacco use date assessed: 10/19/23 Fall risk assessment: No Falls in past year Last assessed Fall Risk: 04/30/24 Dental Screening Dental Screen Date: 07/13/23 HPI 3 Month Follow up HPI Details 73-year-old obese female with a history of diabetes mellitus COPD hypothyroidism hypercholesterolemia GERD recurrent depression coming in for follow-up. Patient was last seen in September 2023. Patient has declined mammogram declined colonoscopy. Review of the notes in April 26 was seen by Pulmonary uses oxygen at night continues to smoke. Moderately severe controlled and stable meanwhile ADDIS but persistent nocturnal hypoxemia on [address] scan done in August 2023 stable. Patient had a thyroid biopsy in 04/26/2024 benign follicle, seen endocrinology. Patient was also seen by the spine center status post decompression. complains of tiredness noted sat 84- o2 placed 2 L went up to 91. complains of dysuria PFSH Medical History Dermatitis of vulva Uses wheelchair Wears dentures Supplemental oxygen dependent Slow to wake up after anesthesia Lumbar spinal stenosis Smoker Nicotine dependence, cigarettes, uncomplicated Acute respiratory failure with hypoxia Acute exacerbation of chronic obstructive pulmonary disease (COPD) Vulvar ulcer Recurrent major depression-severe Lower extremity pain Sialoadenitis Jaw pain العلي (dyspnea on exertion) Chest pain Osteopenia (~2015) Sinus tachycardia Pulmonary nodule Menopausal state Artificial menopause state Constipation Nocturnal hypoxemia COPD (chronic obstructive pulmonary disease) Spinal stenosis Depression Vitamin D deficiency Multinodular thyroid HLD (hyperlipidemia) T2DM (type 2 diabetes mellitus) (~2008) Surgical History History of cataract surgery S/P thyroid biopsy History of lithotripsy History of cardiac catheterization Hx of colonoscopy Hx of arthroscopy of left knee Hx of spinal fusion Hx of cholecystectomy Family History Father No problems noted. Mother Cancer Diabetes Social History Household Members: None Housing: Apartment Are you a primary career services representative to a significant other at home: No Do you presently have visiting nurse or other home services: Yes (GENERAL INTERNAL MEDICINE PHYSICIAN 2-3 hours/day) Alcohol intake: never Comment: aware of trip hazard Patient Tobacco Use Status: Current everyday Tobacco user Smoking Start Date: [birth year]01/1964 Tobacco use type: Cigarette Cigarette Packs Per Day: 1 Cigarettes Per Day: 20 Years Smoked: 60 Packs Per Year: 60 Packs per year/per ci.00 e-Cigarette/Vaping Use: Former Use Second Hand Smoke Exposure: No Advance Directives Date on File: 12/02/22 service: No Current occupational status: retired Sexual orientation: Straight/Heterosexual Cognitive needs: No Hearing needs: No Vision needs: Yes Female Reproductive History Menstrual Age of Menarche: 12 Questionnaire Thrive Questionnaire Date Thrive assessed: 07/13/23 AUDIT C Alcohol Use Questionnaire (AUDIT-C) 1. How often do you have a drink containing alcohol?: Never 3. How often do you have six or more drinks on one occasion?: Never Total Score: 0 GABRIELE-7 AMB Questionnaire GABRIELE-7 Date GABRIELE - 7 assessed: 07/13/23 Source: Developed by Drs. Masoud Gomez, Desi Mabry, George Cates and colleagues, with an educational zoila from [employer]. Physical exam (Primary Care) Vital Signs: Last Vital Signs Pulse 99 04/30/24 09:39 BP 104/58 L 04/30/24 09:39 Pulse Ox 90 L 04/30/24 09:39 Oxygen Delivery Method Room Air 04/30/24 09:39 BMI result Body Mass Index 31.3 Tobacco/Smoking Status: Tobacco use Status Tobacco use date assessed 10/19/23 04/30/24 09:45 Patient Tobacco Use Status Current everyday Tobacco 04/30/24 09:45 Tobacco use type Cigarette 04/30/24 09:45 e-Cigarette/Vaping Use Former Use 04/30/24 09:45 Thrive Assessment: Date of Thrive Assessment Date Thrive assessed 07/13/23 04/30/24 09:45 Const General: alert; No acute distress Eyes Conjunctivae: conjunctivae normal Resp Auscultation: clear to auscultation bilaterally Cardio Rate: regular rate Rhythm: regular rhythm GI Inspection: Yes normal to inspection Extrem General: Yes normal to inspection and No edema Results AMB Hemoglobin A1c AMB Hemoglobin A1c 6.7 % Last Edit by ORION Lisa on 04/30/24 09:56 Results Reviewed Results Reviewed: Laboratory Last Values Hgb A1c (Clinic) 6.7 % (4.0-6.0) H 04/30/24 08:25 Coding Level of Care Code Est Pt Level 4 (15052) Complex EM visit Add On G2211 Diagnoses Status post lumbar spine surgery for decompression of spinal cord Z98.890 Type 2 diabetes mellitus with hyperglycemia, with long-term current use of insulin E11.65; Z79.4 Diabetes mellitus rn long term care insulin use: with jail use 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 Gastroesophageal reflux disease without esophagitis K21.9 Esophagitis presence: without esophagitis Tobacco abuse Z72.0 Moderate episode of recurrent major depressive disorder F33.1 Depression Type: major depressive disorder Major depression recurrence: recurrent Active/Remission status: currently active Major depression episode severity: moderate Hyperlipidemia, unspecified hyperlipidemia type E78.5 Hyperlipidemia type: unspecified Pulmonary emphysema, unspecified emphysema type J43.9 COPD type: emphysema Emphysema type: unspecified Acute cystitis without hematuria N30.00 Urinary tract infection type: acute cystitis Hematuria presence: without hematuria Assessment & Plan Assessment & Plan (1) Status post lumbar spine surgery for decompression of spinal cord: Comment: 10/[facility]23 spine center Code(s): Z98.890 - Other specified postprocedural states Category: Surgical Plan: Patient continues to follow-up with the neurosurgeon. (2) Type 2 diabetes mellitus with hyperglycemia: Comment: Dr. Shipley Code(s): E11.65 - Type 2 diabetes mellitus with hyperglycemia Category: Medical Qualifiers: Diabetes mellitus rn long term care insulin use: with rn long term care use Qualified Code(s): E11.65 - Type 2 diabetes mellitus with hyperglycemia; Z79.4 - rn long term care (current) use of insulin Plan: Decrease the amount of carbohydrate intake, pasta, bread, rice and potatoes are all sugar and that is aside from all the sweet stuff, remember that fruits are good but they are Sweet also. Hemoglobin A1c goal of less than 7.0 patient is taking Jardiance 25 mg once a day NovoLog insulin and Tresiba Victoza once a day pioglitazone at 15 mg once a day. 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 After eating do not lie down, allow 3-4 hours before in lie down. And keep the head of bed above 30 degrees to avoid the acid from going up. (5) Tobacco abuse: Comment: LONG-TIME SMOKER, HAS NOT BEEN ABLE TO QUIT, RECENTLY ACTUALLY INCREASE TO 1 FULL PACK OF CIGARETTES A DAY. DISCUSSED WITH HER THAT SHE SHOULD TRY TO CUT DOWN THE NUMBER OF CIGARETTES AT LEAST. RISKS OF CONTINUED SMOKING OR EXPLAINED. Code(s): Z72.0 - Tobacco use Category: Medical Plan: Patient is strongly advised to stop smoking! (6) Depression: Comment: f/u psychiatrist Code(s): F32.9 - Major depressive disorder, single episode, unspecified Category: Medical Qualifiers: Depression Type: major depressive disorder Major depression recurrence: recurrent Active/Remission status: currently active Major depression episode severity: moderate Qualified Code(s): F33.1 - Major depressive disorder, recurrent, moderate Plan: Continue with present medication and counseling (7) HLD (hyperlipidemia): Code(s): E78.5 - Hyperlipidemia, unspecified Category: Medical Qualifiers: Hyperlipidemia type: unspecified Qualified Code(s): E78.5 - Hyperlipidemia, unspecified Plan: Avoid fried foods, chicken skin, eggs, butter margarine, pastries and meat. Be it pork or beef they have a lot of cholesterol LDL goal of less than 100 and triglyceride of less than 150 patient is on fenofibrate 160 mg once a day and atorvastatin 40 mg once a day (8) COPD (chronic obstructive pulmonary disease): Comment: Long-time chronic obstructive pulmonary disease, moderately severe,, controlled and stable. At present she has no active cough or wheezing. Code(s): J44.9 - Chronic obstructive pulmonary disease, unspecified Category: Medical Qualifiers: COPD type: emphysema Emphysema type: unspecified Qualified Code(s): J43.9 - Emphysema, unspecified Plan: Continue to follow-up with Pulmonary has a scheduled CT scan supposed to be in February on Advair and albuterol. Noted to be hypoxemic while sitting down here at 85 patient has seen Pulmonary and did not see the hypoxemia number at that time. Patient was advised to follow-up with Pulmonary. (9) UTI (urinary tract infection): Code(s): N39.0 - Urinary tract infection, site not specified Category: Medical Qualifiers: Urinary tract infection type: acute cystitis Hematuria presence: without hematuria Qualified Code(s): N30.00 - Acute cystitis without hematuria Plan: Klebsiella grew out from culture which she is sensitive to everything but due to the allergy of sulfa and Keflex and recent treatment of Cipro will place in Macrobid. Antibiotics sent. Orders: Orders AMB Hemoglobin A1c Today E11.65 - Type 2 diabetes mellitus with hyperglycemia, Z79.4 - rn long term care (current) use of insulin Complete Blood Count Auto Diff Today E11.65 - Type 2 diabetes mellitus with hyperglycemia, Z79.4 - rn long term care (current) use of insulin Vitamin B12 and Folate Today E11.65 - Type 2 diabetes mellitus with hyperglycemia, Z79.4 - skilled nursing (current) use of insulin Vitamin D 25-OH Total Today E11.65 - Type 2 diabetes mellitus with hyperglycemia, Z79.4 - skilled nursing (current) use of insulin Microalbumin, Random (w Creat) Today E11.65 - Type 2 diabetes mellitus with hyperglycemia, Z79.4 - rn long term care (current) use of insulin Hemoglobin A1c Today E11.65 - Type 2 diabetes mellitus with hyperglycemia, Z79.4 - skilled nursing (current) use of insulin Comprehensive Met. Panel Today E11.65 - Type 2 diabetes mellitus with hyperglycemia, Z79.4 - rn long term care (current) use of insulin Free T4 (Free Thyroxine) Today E11.65 - Type 2 diabetes mellitus with hyperglycemia, Z79.4 - rn long term care (current) use of insulin Thyroid Stimulating Hormone Today E11.65 - Type 2 diabetes mellitus with hyperglycemia, Z79.4 - skilled nursing (current) use of insulin Lipid Panel Today E11.65 - Type 2 diabetes mellitus with hyperglycemia, E78.00 - Pure hypercholesterolemia, unspecified, Z79.4 - skilled nursing (current) use of insulin Creatinine Urine Today E11.65 - Type 2 diabetes mellitus with hyperglycemia, Z79.4 - skilled nursing (current) use of insulin Medications: New nitrofurantoin monohyd/m-cryst 100 mg (Macrobid) must administer with a meal/food 100 mg PO Q12H 7 days 14 caps 0RF N39.0 - Urinary tract infection, site not specified nitrofurantoin monohyd/m-cryst 100 mg (Macrobid) must administer with a meal/food 100 mg PO Q12H 7 days 14 caps 0RF N39.0 - Urinary tract infection, site not specified
== END 2024-04-30 10:31 | disposition home or self-care (01) ==
LOC: HO.HMCH 09:36
PROVIDERS: PCP Internal Medicine; Visit Provider Internal Medicine
DX: E11.65 Type 2 diabetes mellitus with hyperglycemia (principal); Z79.4 Long term (current) use of insulin; F33.1 Major depressive disorder, recurrent, moderate; J43.9 Emphysema, unspecified; Z98.890 Other specified postprocedural states; E06.3 Autoimmune thyroiditis; K21.9 Gastro-esophageal reflux disease without esophagitis; Z72.0 Tobacco use; E78.5 Hyperlipidemia, unspecified; N30.00 Acute cystitis without hematuria

== ENCOUNTER → 2024-04-30 09:35 | Outpatient (BNVA) | payer OTHER, SELFPAY | PROVIDERS: PCP Internal Medicine; Visit Provider Internal Medicine | DX: E11.65 Type 2 diabetes mellitus with hyperglycemia (principal); Z79.4 Long term (current) use of insulin; Z98.890 Other specified postprocedural states; E06.3 Autoimmune thyroiditis; K21.9 Gastro-esophageal reflux disease without esophagitis; F33.1 Major depressive disorder, recurrent, moderate; E78.5 Hyperlipidemia, unspecified; J43.9 Emphysema, unspecified; N30.00 Acute cystitis without hematuria; Z72.0 Tobacco use | CPT/HCPCS: 83036; 99212 ==

== ENCOUNTER 2024-05-08 11:06 | Outpatient (AMB) | payer OTHER, SELFPAY ==
--- NOTE | 2024-05-08 11:33 | MHC.OFFVIS ---
Vital Signs 05/08/24 11:35 Height 5 ft 5.5 in Weight 189 lb 9.561 oz BMI 31.1 BP 100/60 Blood Pressure Location Lt femoral Position Sitting Pulse 84 Pulse Source Pulse Oximeter Intake Visit Reasons: Biopsy f/u-confirmed Intake Note: Patient present today for MNG follow up visit. 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 Accompanied by: Self / Same As Patient Allergies aspirin [ASPIRIN] Allergy (Severe, Verified 05/08/24 11:39) GI bleed, stomach upset ibuprofen [IBUPROFEN] Allergy (Severe, Verified 05/08/24 11:39) GI Bleed, stomach upset valsartan [From Diovan] Allergy (Severe, Verified 05/08/24 11:39) hives ziprasidone [From Geodon] Allergy (Severe, Verified 05/08/24 11:39) RASH-PALPITATIONS azithromycin Allergy (Intermediate, Verified 05/08/24 11:39) facial swelling metformin [METFORMIN] Allergy (Intermediate, Verified 05/08/24 11:39) NAUSEA & VOMITING, GI upset cephalexin [From KEFLEX] Allergy (Unknown, Verified 05/08/24 11:39) can't remember lisinopril Allergy (Unknown, Verified 05/08/24 11:39) cough NSAIDS (Non-Steroidal Anti-Inflamma [NSAIDS (NON-STEROIDAL ANTI-INFLAMMA] Adverse Reaction (Severe, Verified 05/08/24 11:39) HX OF GI BLEED tramadol [Ultram] Adverse Reaction (Severe, Verified 05/08/24 11:39) GI upset sulfamethoxazole [From Bactrim] Adverse Reaction (Intermediate, Verified 05/08/24 11:39) Hives tiotropium [From Spiriva with HandiHaler] Adverse Reaction (Intermediate, Verified 05/08/24 11:39) Unknown trimethoprim [From Bactrim] Adverse Reaction (Intermediate, Verified 05/08/24 11:39) Hives doxycycline Adverse Reaction (Mild, Verified 05/08/24 11:39) Stomach Upset HPI Comments Details: 73 YO F who is seen in F/U for NTMNG . Underwent biopsy of the right superior 2.9 cm dominant nodule on 04/25/2024, is here today to discuss results She also has a history insulin-dependent type 2 diabetes mellitus and follows in our office, last saw Dr. Marmolejo in January 2024. Has fup in Jul 2024 for DM. This was not addressed in today's visit. NTMNG: Had thyroid US which revealed large 2.0 cm R superior nodule. Underwent FNA of this nodule 05/10/19 with Benign (Dewitt Category II) cytology. Denies any compressive symptoms. Denies any history of head or neck irradiation. No history of thyroid cancer. US THYROID 12/18 showed a right mid/superior 2.9 cm nodule which is solid, isoechoic with punctate echogenic foci. Other subcentimeter nodules noted. This nodule has increased in size significantly compared to ultrasound in January of 2022. Given this is a TR 5 nodule, per ARTURO this is a high suspicion nodule with greater than 50% chance of malignancy, even though this has been biopsied before in 2019 with benign cytology we recommended biopsy significant change in size. Interval history Underwent FNA biopsy of the right superior 2.9 cm nodule on 04/25/2024, with cytology coming back as benign, Dewitt category 1. She also has a history of hypothyroidism, on levothyroxine 25 mcg daily. Most recent TSH from January 2024 was normal at 1.32. Does have constipation. She is complaining of excessive fatigue. Describes this this as new. Patient currently denies heat or cold intolerance, hair loss, palpitation, anxiety, weight changes, mood changes, changes in appearance of eyes or vision changes, tremors, increased diaphoresis or dry skin. ? Patient denies any difficulty swallowing, pain on swallowing or difficulty breathing. Feels like voice is deeper Is on O2 for COPD . Chronic active smoker, smokes 2 ppd . Patient denies any history of childhood neck radiation. Denies having ever used lithium, amiodarone or biotin supplements. Patient denies any family history of thyroid cancer or thyroid disease. Review of systems Constitutional: no fevers, chills HEENT: no changes in vision Cardiac: No chest pain, discomfort or palpitations. Pulmonary: SOB with exertion GI:No abdominal pain, no nausea or vomiting, no anorexia, no blood in stool : no burning micturition, dysuria or increase in urinary frequency Physical exam General: sitting comfortably in no acute distress HEENT: normocephalic/atraumatic, moist oral mucosa Neck: supple, symmetrical,right 2 cm palpable nodule , no dorsocervical or supraclavicular fat pads Cardiac: normal heart sounds Pulm: normal breath sounds B/L, no added breath sounds Abd: not distended, no tenderness Extremities: no edema, no signs of myxedema Neuro: AAO x3, Speech: normal, no facial droop, moving all 4 extremities Laboratory Tests 02/10/24 03/19/24 12:50 07:36 Creatinine 0.84 TSH 1.32 Free T4 1.01 US THYROID 12/18 CLINICAL INFORMATION: Nontoxic multinodular goiter. COMPARISON: Ultrasound soft tissue head/neck thyroid dated 01/27/2023 and 02/18/2022. TECHNIQUE: Linear transducer grayscale and color Doppler examination with attention to the region of the thyroid. FINDINGS: SIZE: Measurements of the thyroid lobes and nodules are given in sagittal, anteroposterior and transverse dimensions respectively. Right Thyroid Lobe: 6.2 x 3.0 x 2.6 cm, volume 25.3 mL. Previously 5.8 x 2.6 x 2.4 cm, volume 18.9 mL. Parenchyma: The gland echotexture is homogeneous. Thyroid vascularity is normal. Left Thyroid Lobe: 4.2 x 1.7 x 1.4 cm, volume 5.2 mL. Previously 4.7 x 1.6 x 1.3 cm, volume 5.1 mL. Parenchyma: The gland echotexture is homogeneous. Thyroid vascularity is normal. Isthmus: 0.7 cm in maximum AP dimension. Previously 0.4 cm. Estimated total number of nodules greater than or equal to 1 cm: 1. 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 Location: Right superior/mid. Size: 2.9 x 2.2 x 2.2 cm, volume 7.3 mL. Previously: 2.9 x 2.2 x 1.9 cm, volume 6.2 mL on 01/27/2023 and 2.3 x 2.0 x 1.7 cm, volume 4.1 mL on 02/18/2022 Nodule characteristics: Composition: Solid (2). Echogenicity: Isoechoic (1). Shape: Taller than wide (3). Margins: Ill-defined (0). Echogenic Foci: Punctate echogenic foci (3). ACR TI-RADS total points: 9 Previous: 9 ACR TI-RADS category: 5 Previous: 5 Significant change in size (>/= 20% in 2 dimensions and minimal increase of 2 mm or 50% or greater increase in volume): Yes Change in features: No Change in ACR TI-RADS risk category: No 2. Location: Right inferior. Size: 0.5 x 0.5 x 0.6 cm, volume 0.1 mL. Previously: 0.6 x 0.4 x 0.6 cm, volume 0.1 mL. Nodule characteristics: Composition: Solid (2). Echogenicity: Very hypoechoic (3). Shape: Not taller than wide (0). Margins: Smooth (0). Echogenic Foci: Punctate echogenic foci (3). ACR TI-RADS total points: 8 Previous: 7 ACR TI-RADS category: 5 Previous: 5 Significant change in size (>/= 20% in 2 dimensions and minimal increase of 2 mm or 50% or greater increase in volume): No Change in features: Yes Change in ACR TI-RADS risk category: No 3. Location: Left superior. Size: 0.6 x 0.2 x 0.3 cm, volume 0.02 mL. Previously: 0.4 x 0.2 x 0.4 cm, volume 0.01 mL. Nodule characteristics: Composition: Solid (2). Echogenicity: Isoechoic (1). Shape: Not taller than wide (0). Margins: Smooth (0). Echogenic Foci: None (0). ACR TI-RADS total points: 3 Previous: 3 ACR TI-RADS category: 3 Previous: 3 Significant change in size (>/= 20% in 2 dimensions and minimal increase of 2 mm or 50% or greater increase in volume): Yes Change in features: No Change in ACR TI-RADS risk category: No NODES: No lymphadenopathy is seen in the tissue surrounding the thyroid gland. US/US thyroid IMPRESSION: Enlarged, multinodular thyroid gland. 2.9 x 2.2 x 1.9 cm, volume 6.2 mm right mid to upper TR5 thyroid nodule meets criteria for biopsy and has increased in size over time measuring 2.3 x 2.0 x 1.7 cm, volume 4.1 mL on 02/18/2022. Correlation with prior biopsy results and clinical exam recommended to determine further management including possible repeat biopsy. [facility] Medical History Dermatitis of vulva Uses wheelchair Wears dentures Supplemental oxygen dependent Slow to wake up after anesthesia Lumbar spinal stenosis Smoker Nicotine dependence, cigarettes, uncomplicated Acute respiratory failure with hypoxia Acute exacerbation of chronic obstructive pulmonary disease (COPD) Vulvar ulcer Recurrent major depression-severe Lower extremity pain Sialoadenitis Jaw pain العلي (dyspnea on exertion) Chest pain Osteopenia (~2015) Sinus tachycardia Pulmonary nodule Menopausal state Artificial menopause state Constipation Nocturnal hypoxemia COPD (chronic obstructive pulmonary disease) Spinal stenosis Depression Vitamin D deficiency Multinodular thyroid HLD (hyperlipidemia) T2DM (type 2 diabetes mellitus) (~2008) Surgical History History of cataract surgery S/P thyroid biopsy History of lithotripsy History of cardiac catheterization Hx of colonoscopy Hx of arthroscopy of left knee Hx of spinal fusion Hx of cholecystectomy Family History Father No problems noted. Mother Cancer Diabetes Social History Household Members: None Housing: Apartment Are you a primary care tech to a significant other at home: No Do you presently have visiting nurse or other home services: Yes (INFORMATION SERVICES CONSULTANT 2-3 hours/day) Alcohol intake: never Comment: aware of trip hazard Patient Tobacco Use Status: Current everyday Tobacco user Smoking Start Date: 04/01/1964 Tobacco use type: Cigarette Cigarette Packs Per Day: 1 Cigarettes Per Day: 20 Years Smoked: 60 e-Cigarette/Vaping Use: Former Use Second Hand Smoke Exposure: No Advance Directives Date on File: 12/02/22 service: No Current occupational status: retired Sexual orientation: Straight/Heterosexual Cognitive needs: No Hearing needs: No Vision needs: Yes Female Reproductive History Menstrual Age of Menarche: 12 Physical Exam Vital Signs: Last Vital Signs Pulse 84 05/08/24 11:35 BP 100/60 05/08/24 11:35 BMI result Body Mass Index 31.1 Assessment & Plan Assessment & Plan (1) Multinodular thyroid: Comment: ([facility]) Code(s): E04.2 - Nontoxic multinodular goiter Category: Medical Plan: Patient with no history of head or neck radiation, with no family history of thyroid cancer with a history of nontoxic multinodular goiter diagnosed 2019, with a right superior/mid dominant nodule measuring 2.2 cm at the time with benign cytology. She had an ultrasound in 2021 which showed significant change in the size of the nodule which now measures up to 2.9 cm in size. US THYROID 12/18 I reviewed the images myself that showed a right mid/superior 2.9 cm nodule which is solid, isoechoic with punctate echogenic foci. Other subcentimeter nodules noted. This nodule has increased in size significantly compared to ultrasound in January of 2022. Given this is a TR 5 nodule, per ARTURO this is a high suspicion nodule with greater than 50% chance of malignancy, even though this has been biopsied before in 2019 with benign cytology we recommended repeat biopsy get given significant change in size. Underwent FNA of the right superior/mid 2.9 cm thyroid nodule on 04/25 with benign cytology (Dewitt category 1). I discussed with the patient that given benign results there is less than 3% chance of malignancy which is very reassuring. 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 Currently on levothyroxine 25 mcg daily. She does report some excessive new fatigue. Most recent TSH from January 2024 within normal limits. Plan: -ordered TSH, free T4 to be done now -continue levothyroxine 25 mcg daily Plan see above Orders: Orders Thyroid Stimulating Hormone 1 Year E04.2 - Nontoxic multinodular goiter, E06.3 - Autoimmune thyroiditis Free T4 (Free Thyroxine) 1 Year E04.2 - Nontoxic multinodular goiter, E06.3 - Autoimmune thyroiditis Thyroid Stimulating Hormone Today E06.3 - Autoimmune thyroiditis Free T4 (Free Thyroxine) Today E06.3 - Autoimmune thyroiditis US thyroid 1 Year E04.2 - Nontoxic multinodular goiter, E06.3 - Autoimmune thyroiditis Medications: Refilled levothyroxine 25 mcg PO DAILY@0600 90 tabs 3RF E03.9 - Hypothyroidism, unspecified Patient Instructions: Continue levothyroxine 25 mcg daily Do blood work now Do thyroid US in around 1 year about 4-6 weeks before your appointment with me And blood work a few days before your next appointment with me in 1 year Coding Level of Care Code Est Pt Level 3 (02835) Diagnoses Multinodular thyroid E04.2 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
[2024-05-08 11:35] VITALS: BP 100/60; PULSE 84; BMI 31.1
== END 2024-05-08 11:55 | disposition home or self-care (01) ==
PROVIDERS: PCP Internal Medicine; Visit Provider Student in an Organized Health Care Education/Training Program
DX: E04.2 Nontoxic multinodular goiter (principal); E06.3 Autoimmune thyroiditis
CPT/HCPCS: 99213

== ENCOUNTER → 2024-05-08 11:06 | Outpatient (BNVA) | payer OTHER, SELFPAY | PROVIDERS: PCP Internal Medicine; Visit Provider Student in an Organized Health Care Education/Training Program | DX: E04.2 Nontoxic multinodular goiter (principal); E06.3 Autoimmune thyroiditis | CPT/HCPCS: 99212 ==

== ENCOUNTER 2024-05-10 11:05 | Outpatient (REF) | payer OTHER, SELFPAY ==
[2024-05-10 13:20] LABS: MANUAL DIFF FLAG NO
[2024-05-10 13:43] LABS: Basophils Percent Auto 0.5 % (0-2); Eosinophils Percent Auto 0.1 % (0-4); Hematocrit 45.4 % (37.0-47.0); Hemoglobin 15.1 g/dl (12.0-16.0); Imm Gran Abs Auto 0.03 X10*3/uL (0.00-0.03); Imm Gran Pct Auto 0.4 % (0.0-0.4); Lymphocytes Absolute Auto 1.4 X10*3/uL (1.2-4.9); Lymphocytes Percent Auto 17.5 % (20-40); Mean Corpuscular HGB Conc 33.3 g/dl (31.0-35.0); Mean Corpuscular Hemoglobin 29.9 pg (27.0-33.0); Mean Corpuscular Volume 89.9 fL (80.0-98.0); Mean Platelet Volume 10.7 fL (9.4-12.3); Monocytes Absolute Auto 0.5 X10*3/uL (0.1-1.2); Monocytes Percent Auto 6.5 % (2-11); Neutrophils Absolute Auto 5.9 x10*3/uL (2.0-8.3); Platelet Count 270 X10*3/uL (160-400); Red Blood Count 5.05 X10*6/uL (4.20-5.50); Red Cell Distribution Width 13.6 % (11.0-16.0); White Blood Count 7.9 X10*3/uL (4.8-10.8)
[2024-05-10 14:18] LABS: Alanine Aminotransferase 18 U/L (0-31); Albumin Level 4.3 g/dL (3.5-5.0); Alkaline Phosphatase 58 U/L (39-117); Anion Gap 8 (12-20); Aspartate Amino Transferase 24 U/L (5-31); Bilirubin Total 0.5 mg/dL (0.0-1.0); Blood Urea Nitrogen 12 mg/dL (9-16); Carbon Dioxide 31 mmol/L (22-29); Chloride 103 mmol/L (96-108); Cholesterol 151 mg/dL (<200); Estimated Glomerular Filt Rate > 60; Glucose Random 140 mg/dL (60-115); HDL Cholesterol 56 mg/dL (>40); LDL Cholesterol Calculated 65 mg/dL (<100); Potassium 4.4 mmol/L (3.3-5.1); Sodium 138 mmol/L (135-145); Triglycerides 150 mg/dL (<150)
[2024-05-10 14:21] LABS: Estimated Average Glucose 157 mg/dL; Hemoglobin A1C 202.8726 umol/L; Hemoglobin A1c % 7.1 % (<6.0); Total Hemoglobin (HGBA1C) 3756.1691 umol/L
[2024-05-10 14:23] LABS: Free T4 (Free Thyroxine) 1.11 ng/dL (0.71-1.85); Thyroid Stimulating Hormone 1.26 uIU/mL (0.32-4.0)
[2024-05-10 14:32] LABS: Folate 6.4 ng/mL (> or = 4.0); Vitamin B12 570 pg/mL (200-900)
[2024-05-10 14:54] LABS: Vitamin D 25-OH Total 45.3 ng/mL (>30)
== END 2024-05-10 11:06 | disposition home or self-care (01) ==
LOC: HO.HMGCLDS 11:05
PROVIDERS: PCP Internal Medicine; Referring Provider Internal Medicine; Visit Provider Student in an Organized Health Care Education/Training Program
DX: E11.65 Type 2 diabetes mellitus with hyperglycemia (principal); E78.00 Pure hypercholesterolemia, unspecified; E06.3 Autoimmune thyroiditis; Z79.4 Long term (current) use of insulin
CPT/HCPCS: 36415; 80053; 80061; 82306; 82607; 82746; 83036; 84439; 84443; 85025

== ENCOUNTER 2024-06-12 11:18 | Outpatient (AMB) | payer OTHER, SELFPAY ==
[2024-06-12 11:24] VITALS: BP 102/50; PULSE 104; O2SAT 90; BMI 31.0
--- NOTE | 2024-06-12 11:24 | A.OFFVIS_ITS ---
Vital Signs 06/12/24 11:24 Height 5 ft 5.5 in Weight 189 lb BMI 31.0 BP 102/50 L Blood Pressure Location Lt brachial Position Sitting Pulse 104 H Pulse Source Pulse Oximeter Pulse Oximetry (%) 90 L Oxygen Delivery Method Room Air Intake Visit Reasons: Sick visit (adolescent/adult) Intake Note: pt is here for sick visit and has been sick for a few weeks, coughing, choking, some production, very bad at night, she cannot sleep. very hard cough, vomitted yesterday, no fever, very clammy, and blood sugar all over. 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: No Allergies aspirin [ASPIRIN] Allergy (Severe, Verified 06/12/24 11:29) GI bleed, stomach upset ibuprofen [IBUPROFEN] Allergy (Severe, Verified 06/12/24 11:29) GI Bleed, stomach upset valsartan [From Diovan] Allergy (Severe, Verified 06/12/24 11:29) hives ziprasidone [From Geodon] Allergy (Severe, Verified 06/12/24 11:29) RASH-PALPITATIONS azithromycin Allergy (Intermediate, Verified 06/12/24 11:29) facial swelling metformin [METFORMIN] Allergy (Intermediate, Verified 06/12/24 11:29) NAUSEA & VOMITING, GI upset cephalexin [From KEFLEX] Allergy (Unknown, Verified 06/12/24 11:29) can't remember lisinopril Allergy (Unknown, Verified 06/12/24 11:29) cough NSAIDS (Non-Steroidal Anti-Inflamma [NSAIDS (NON-STEROIDAL ANTI-INFLAMMA] Adverse Reaction (Severe, Verified 06/12/24 11:29) HX OF GI BLEED tramadol [Ultram] Adverse Reaction (Severe, Verified 06/12/24 11:29) GI upset sulfamethoxazole [From Bactrim] Adverse Reaction (Intermediate, Verified 06/12/24 11:29) Hives tiotropium [From Spiriva with HandiHaler] Adverse Reaction (Intermediate, Verified 06/12/24 11:29) Unknown trimethoprim [From Bactrim] Adverse Reaction (Intermediate, Verified 06/12/24 11:29) Hives doxycycline Adverse Reaction (Mild, Verified 06/12/24 11:29) Stomach Upset Medication List - Last Reconciled 06/12/24 by Nicholas Richter MD acetaminophen 1,000 mg (2 x 500 mg) PO TID PRN albuterol sulfate 90 mcg/actuation 2 puffs inhalation Q4H PRN 60 days aripiprazole 20 mg PO DAILY atorvastatin 40 mg PO BEDTIME brimonidine 0.15% 1 drp ophthalmic (eye) BID cholecalciferol (vitamin D3) 50 mcg PO BEDTIME clonazepam 1 tab PO BID PRN cyanocobalamin (vitamin B-12) (Vitamin B-12) 500 mcg PO DAILY 90 days [dressing stick As directed] [easy on sock aid As directed] empagliflozin (Jardiance) 25 mg PO DAILY esomeprazole magnesium 40 mg PO DAILY@0630 fenofibrate 160 mg PO DAILY fexofenadine 180 mg PO DAILY flash glucose sensor ([place] 2 Sensor kit) As directed fluticasone propion-salmeterol 115-21 mcg/actuation (Advair HFA) 2 puffs inhalation Q12H gabapentin 600 mg PO TID 30 days insulin aspart U-100 (Novolog FlexPen U-100 Insulin aspart) Novolog sliding scale 3 times daily (200-250: 6 units, 251-300: 8 units, 301 - 350: 10 units, >350: 12 units) insulin degludec (Tresiba FlexTouch U-100 insulin) 40 units (0.4 mL) subcut DAILY levalbuterol tartrate 45 mcg/actuation 2 puffs inhalation Q4-6H PRN levothyroxine 25 mcg PO DAILY@0600 liraglutide (Victoza 3-Jeanmarie) 1.8 mg (0.3 mL) subcut DAILY 90 days mirtazapine (Remeron) 15 mg PO BEDTIME netarsudil-latanoprost 0.02-0.005 % (Rocklatan) 1 drp ophthalmic (eye) BEDTIME [new lift chair As directed] nicotine 1 patch transdermal DAILY nitrofurantoin monohyd/m-cryst 100 mg (Macrobid) 100 mg PO Q12H 7 days pen needle, diabetic (Comfort EZ [place]) As directed injects 3 X/day pioglitazone 15 mg PO BEDTIME quetiapine 50 mg PO BID PRN quetiapine 150 mg PO BEDTIME sennosides-docusate sodium 8.6-50 mg (Stimulant Laxative Plus) 2 tab-caps (2 x 8.6-50 mg) PO DAILY 90 days Shower Chair As directed [Transfer wheelchair As directed] vit C,G-Hz-havfd-lutein-zeaxan 250-90-40-1 mg (PreserVision AREDS-2) 1 tab PO BID [WHEELCHAIR As directed] Do you need a note to return to daycare/school/sports/work: No HPI HPI Sick visit (adolescent/adult): Details: 73 years old female, smoker, with diagnosis of obstructive sleep apnea, also has bipolar disorder, , GERD symptoms , hypertension and diabetes mellitus. She is still smoking 15-20 cigarettes a day. Participates in annual lung. Screening program For COPD she uses fluticasone-salmeterol 115-21 2 puffs b.i.d. and levalbuterol 2 puffs Q 4-6 hours p.r.n.. She has history of nocturnal hypoxemia and uses O2 2 L/minute at night. She is being followed very closely for pulmonary nodules which have proved to be benign so for. Now for the past 2-3 weeks she has been having increased cough, congested feeling, and increased shortness of breath. She has noticed that her O2 sat falls below 90% during the daytime as well. Denies fever or chills, however about 3 weeks ago she had acute gastroenteritis type of symptoms which have now resolved. She was worried about low oxygen and was advised to come for an urgent visit. [facility] Medical History (Updated 06/12/24 @ 12:03 by Nicholas Richter MD) Acute exacerbation of chronic obstructive pulmonary disease (COPD) Dermatitis of vulva Uses wheelchair Wears dentures Supplemental oxygen dependent Slow to wake up after anesthesia Lumbar spinal stenosis Smoker Nicotine dependence, cigarettes, uncomplicated Acute respiratory failure with hypoxia Vulvar ulcer Recurrent major depression-severe Lower extremity pain Sialoadenitis Jaw pain العلي (dyspnea on exertion) Chest pain Osteopenia (~2015) Sinus tachycardia Pulmonary nodule Menopausal state Artificial menopause state Constipation Nocturnal hypoxemia COPD (chronic obstructive pulmonary disease) Spinal stenosis Depression Vitamin D deficiency Multinodular thyroid HLD (hyperlipidemia) T2DM (type 2 diabetes mellitus) (~2008) Surgical History History of cataract surgery S/P thyroid biopsy History of lithotripsy History of cardiac catheterization Hx of colonoscopy Hx of arthroscopy of left knee Hx of spinal fusion Hx of cholecystectomy Family History Father No problems noted. Mother Cancer Diabetes Social History Household Members: None Housing: Apartment Are you a primary careers counsellor to a significant other at home: No Do you presently have visiting nurse or other home services: Yes (FAMILY MEDICINE PHYSICIAN 2-3 hours/day) Alcohol intake: never Comment: aware of trip hazard Patient Tobacco Use Status: Current everyday Tobacco user Smoking Start Date: 04/01/1964 Tobacco use type: Cigarette Cigarette Packs Per Day: 1 Cigarettes Per Day: 20 Years Smoked: 60 e-Cigarette/Vaping Use: Former Use Second Hand Smoke Exposure: No Advance Directives Date on File: 12/02/22 service: No Current occupational status: retired Sexual orientation: Straight/Heterosexual Cognitive needs: No Hearing needs: No Vision needs: Yes Female Reproductive History Menstrual Age of Menarche: 12 Review of Systems Const All systems reviewed & are unremarkable except as noted in HPI and below Eyes Reports no additional complaints ENT Reports nasal congestion (Mild intermittent) Card Denies chest pain, Denies irregular heart rhythm and Denies leg edema Resp Reports as per HPI GI Reports constipation and Reports dyspepsia Reports no additional complaints Musc Reports abnormal gait (Gait impaired has to use walker), Reports back pain and Reports arthralgias Skin/Breast Reports system reviewed and no additional complaints, except as documented Neuro Reports abnormal gait (Gait impaired has to use walker) Psych Reports anxiety, Reports depression and Reports mood swings Endo Reports other (Being treated for diabetes mellitus) Physical Exam Vital Signs: Last Vital Signs Pulse 104 H 06/12/24 11:24 BP 102/50 L 06/12/24 11:24 Pulse Ox 90 L 06/12/24 11:24 Oxygen Delivery Method Room Air 06/12/24 11:24 BMI result Body Mass Index 31.0 Const General: comfortable and no acute distress Orientation/consciousness: patient oriented x3 HEENT Head: Yes normal to inspection General nose exam: No nasal polyps present and No nasal discharge present Face and sinus: Yes sinuses nontender Mouth: oropharynx abnormals (Crowded, Mallampati class 4) Throat: Yes posterior oropharynx normal Eyes General: appearance normal, both eyes and all related structures Neck Neck: Yes normal visual inspection, Yes no lymphadenopathy, Yes trachea midline and Yes no JVD Thyroid: Thyroid normal Chest Chest palpation & inspection: normal inspection of the chest, normal palpation of entire chest wall and no tenderness Resp Other: Percussion note resonant, breath sounds are distant with prolonged expiratory phase. Lungs are clear today no audible wheezes rhonchi or crepitations. But she is not able to take deep breaths, due to cough. Cardio Palpation: normal PMI Rate: regular rate Rhythm: regular rhythm Heart sounds: no gallops and no murmurs GI Palpation (GI): Soft to palpation, nontender, No hepatosplenomegaly present and no masses Auscultation: normal bowel sounds Back/Spine/Pelvis Thoracic/Lumbar Spine: thoracic and lumbar spine normal to inspection and thoraco-lumbar ROM limited Skin General skin exam: no rashes or lesions noted Neuro General: patient oriented x3, No gait normal (Somewhat unsteady gait, uses walker) and no focal motor deficits Cranial nerves: Yes CN's II-XII intact bilaterally Extrem General: Yes normal to inspection, Yes no clubbing, cyanosis or edema and Yes no calf tenderness Psych Appearance: grossly normal and well kempt Speech and movement: Normal speech and movement present Assessment & Plan Assessment & Plan (1) Smoker: Comment: Patient is a lifelong smoker. Has tried to quit smoking many times, but has not been able to quit complete. At present smoking 1 pack of cigarettes a day again. Code(s): F17.200 - Nicotine dependence, unspecified, uncomplicated Category: Social Hx Plan: Advised to quit smoking or at least cut down the number of cigarettes. She tells me that he has new year resolution to quit smoking along with her friend. She does have nicotine patches at hand and advised to use 1 patch daily ( 21 mg ) (2) Exercise hypoxemia: Comment: 6 minutes walk test on last visit showed that she did desaturate on room air and needed O2 2 L/minute for walking. She was provided with a portable unit , B-Cylinder , but she insisted on returning it as she does not want to uses cylinder. She wants to use Inogen unit. I told her that when she comes next time we will have to do 6 minutes walk again. Code(s): R09.02 - Hypoxemia Category: Medical Plan: She does have stationary O2 concentrator at home. I advised her to do deep breathing exercises when her O2 sat falls down, below 90%, And she can use O2 2 L/minute for 15-20 minutes at a time as needed. (3) Nocturnal hypoxemia: Comment: She has evidence of nocturnal hypoxemia since 2007 . That is when she had an OVERNIGHT SLEEP STUDY, showing only minimal degree of ADDIS, total sleep time AHI 5.5, But persistent nocturnal hypoxemia. She has been treated with oxygen at night 2 L/MT which she has been using regularly. . Code(s): G47.34 - Idiopathic sleep related nonobstructive alveolar hypoventilation Category: Medical Plan: Continue to use O2 2 L/minute at night (4) Acute exacerbation of chronic obstructive pulmonary disease (COPD): Comment: Patient treated in the hospital for an acute exacerbation and was discharged home on 10/06. She is at her baseline. [place]: talked to her about meds, smoking , O2 use. Meds : Advair 115-21 2 puffs bid Albuterol in Neb q 6 hrs prn or Albuterol HFA 2 puffs when out doors Code(s): J44.1 - Chronic obstructive pulmonary disease with (acute) exacerbation Category: Medical Plan: Acute but mild exacerbation I have treated her with: Prednisone 20 mg b.i.d. for 5 days. * THIS PATIENT HAS HISTORY OF ALLERGY TO DOXYCYCLINE, Z-JEANMARIE,, AND CEPHALEXIN. SO AT THIS POINT I WOULD NOT ORDER ANY ANTIBIOTIC. Medications: New prednisone 20 mg PO BID 5 days 10 tabs 0RF copd excerbation Coding Level of Care Code Est Pt Level 4 (16909) Diagnoses Smoker F17.200 Exercise hypoxemia R09.02 Nocturnal hypoxemia G47.34 Acute exacerbation of chronic obstructive pulmonary disease (COPD) J44.1
--- OUTSIDE RECORDS SUMMARY | 2024-06-12 11:41 | XMS_ITS ---
Author Organization [facility] [place] Address [address] [place] [address] Care Team Providers Care Online Merchandiser Name Role Phone Cihquis Grajeda Primary Care Provider Zen Dickerson Unavailable [phone] Ijeoma Joseph Unavailable [phone] Allergies Allergen (clinical drug ingredient) Drug/Non Drug Allergy documented on EMR Reaction Allergy Type Onset Date Status ibuprofen Advil Unknown Drug Allergy Active aspirin Aspirin Unknown Drug Allergy Active sulfamethoxazole / trimethoprim Bactrim Unknown Drug Allergy Active ibuprofen Ibuprofen Unknown Drug Allergy Active Keflex Unknown Drug Allergy Active REASON FOR VISIT pcp-11/2023, At Risk Footcare, Toe Irritation Medications Medication SIG (Take, Route, Frequency, Duration) Notes Start Date End Date Status Extra Depth Orthopedic Shoes (1 Pair) with Customized Heat Molded Multidensity Innersoles (3 Pair) as directed Dx: NIDDM/Polyneuropathy (E11.42), Hammertoe Foot Deformity (M20.41,M20.42), Preulcerative Skin Lesion(s) (L85.1 03/27/2024 Active Vitamin D3 Active Jardiance Active Colace Active Vitamin B 12 Active Insulin Active Abilify Active NexIUM Active Actos Active Gabapentin Active SEROquel Active cloNIDine Active Lipitor Active Fenofibrate Active Social History Tobacco Use: Social History Observation Description Date Details (start date - stop date) Current Smoker NA - NA Tobacco Use/Smoking Question Answer Notes Are you a: current smoker How often do you smoke cigarettes? every day How many cigarettes a day do you smoke? 31 or mo re Alcohol Screen Question Answer Notes Did you have a drink containing alcohol in the p ast year? No Points 0 Interpretation Negative Tobacco use other than smoking: Question Answer Notes Are you an other tobacco user? No Problems Problem Type SNOMED Code ICD Code Onset Dates Problem Status W/U Status Risk Notes Problem Polyneuropathy due to type 2 diabetes mellitus (328433946) Type 2 diabetes mellitus with diabetic polyneuropathy (E11.42) Active confirmed Problem Acquired hammer toe of right foot (5902109248756706 ) Other hammer toe(s) (acquired), right foot (M20.41) Active confirmed Problem Acquired hammer toe of left foot (2853250213231760 ) Other hammer toe(s) (acquired), left foot (M20.42) Active confirmed Vital Signs Height 5 ft 5 in in 03/27/2024 Weight 200 lbs 03/27/2024 BMI 33.28 kg/m2 03/27/2024 Encounters Encounter Location Date Provider Diagnosis [facility] [address] [address] 03/27/2024 Ijeoma Joseph Type 2 diabetes mellitus with diabetic polyneuropathy E11.42 ; Other hammer toe(s) (acquired), right foot M20.41 and Other hammer toe(s) (acquired), left foot M20.42 Assessments Encounter Date Diagnosis (ICD Code) Assessment Notes Treatment Notes Treatment Clinical Notes Section Notes 03/27/2024 Type 2 diabetes mellitus with diabetic polyneuropathy (ICD-10 - E11.42) 03/27/2024 Other hammer toe(s) (acquired), right foot (ICD-10 - M20.41) Patient Educated with: DIABETIC FOOT CARE INSTRUCTIONS. pdf (DIABETIC FOOT CARE INSTRUCTIONS. pdf) 03/27/2024 Other hammer toe(s) (acquired), left foot (ICD-10 - M20.42) Plan Of Treatment Medication Medication Name Sig Start Date Stop Date Notes Extra Depth Orthopedic Shoes (1 Pair) with Customized Heat Molded Multidensity Innersoles (3 Pair) as directed Dx: NIDDM/Polyneuropathy (E11.42), Hammertoe Foot Deformity (M20.41,M20.42), Preulcerative Skin Lesion(s) (L85.1 03/27/2024 Treatment Notes Assessment Notes Other hammer toe(s) (acquired), right fo ot Patient Educated with: DIABETIC FOOT CARE INSTRUCTIONS.pdf (DIABETIC FOOT CARE INSTRUCTIONS.pdf) Next Appt Details Follow Up: 2 Months, Reason: Provider Name:Ijeoma pitts, 06/19/2024 11:15:00 AM, [address] [place], [address], Procedure Notes * Category Sub-Category Detail Notes Nail Reduction Nail Reduction (-27) Trimming o f dystrophic nails performed to reduce/remove overall nail length and girth, by manual and electrical means with use of a nail nipper and/or dremel, to more viable healthy nail plate or bed tissue, any number - G0127 Progress Notes * Sofiya RIVAS EDOB: [birth year] (73 yo F)Acc No.[id number]:03/27/2024 Progress Notes Patient:?Sofiya iRvas Provider:?Ijeoma Joseph DPM :1950???Age:73 Y???Sex:Female D ate:03/27/2024 Address:[address] [place], [place] [id number] Pcp:Chiquis Grajeda Subjective: * Chief Complaints: * ???Pcp-t Risk Footca reToe Irritation * HPI: ???At Risk footcare:?Pt States Last PCP Visit:?Date?12/06/2023 ???Toe pain:?Location:?B/L feet?.?Duration:?several years?.?Course:?worse?.?Aggravated by:?shoes, any pressure?.?Treatments:?change in shoes.? * ROS:?General/Constitutional:?Nausea?denies.?Vomiting?denies.?Hunger Thirst?denies.?Loss appetite?denies.?Chills?denies.?Fatigue?denies.?Fever?denies.?Night Sweats?denies.?Unexplained weight loss?denies.?Unexplained weight gain?denies.?HEENTM:?Dentures?admits.?Dizziness?denies.?Glasses/contacts?admits.?Retinopathy?de nies.?Blurred/double vision?denies.?TMJ?denies.?Discharge/drainage?denies.?Implants?denies.?Sore throat?denies.?Dental implants?denies.?Hard of hearing ?denies.?Difficulty chewing/swallowing/speaking?denies.?Nose bleeds?denies.?Sore mouth?denies.?Respiratory:?On Oxygen?denies.?Pneumonia/pleurisy?denies.?Bronchitis?denies.?Emphysema?admits.?C oughing?admits.?Cough blood?denies.?Shortness of breath?admits.?Wheezing?admits.?Cardiovascular:?Pacemaker?denies.?MVP?denies.?WPW?denies.?CHF?denies.?Heart attack?denies.?Septal defect?denies.?Rapid beat?denies.?Chest pain ?denies.?Atrial Fib.?denies.?Murmur/Palpitations?denies.?Gastrointestinal:?Hemorrhoids?denies.?Stomach/Abdominal pain?denies.?Dark blood stool?denies.?Irritable bowel ?denies.?Constipation?denies.?Diarrhea?denies.?Hematology:?Swelling?denies.?Clots?denies.?Varicose Veins?denies.?Bruising?denies.?Bleeding problem?denies.?Genitourinary:?Blood urine?denies.?Frequent/Painfu/urination/bladder control?denies.?Kidney stones?denies.?Infection (UTI)?denies.?Nephropathy?admits.?sex trans dis (STD)?denies.?Prostate?denies.?Musculoskeletal:?Hammertoes?denies.?Bunions?denies.?Back Pain?admits.?Muscle Cramps/ Resting?admits.?Muscle cramps / walking?denies.?Generalized aches and pains?admits.?Weakness?denies.?Integ.:?Frausto?denies.?Scars?denies.?Corns/calluses?denies.?Ingrown nails?denies.?Painful nails?denies.?Open Sores?denies.?Rashes?denies.?Neurologic:?Difficulty sleeping?admits.?Brain disorder?denies.?Numbness?denies.?Balance trouble?denies.?Confusion?denies.?Fainting/blackouts?denies.?Tingling?denies.?Tr emors?denies.? * Medical History:? * Surgical History:[facility] * Hospitalization/Major Diagno stic Procedure:?[facility] surgery 11/16/2023 * Family History:?Mother: dece ased, diagnosed with Family history of arthritis, Unspecified essential hypertension, Other malignant neoplasm of unspecified site.?Father: .?Siblings: cancer, heart attack.? * Social History:?Tobacco Use:?Tobacco Use/Smoking?Are you a:?current smoker ?How often do you smoke cigarettes??every day ?How many cigarettes a day do you smoke??31 or more ?Tobacco use other than smoking?Are you an other tobacco user??No ???Drugs/Alcohol:?Drugs?Have you used drugs other than those for medical reasons in the past 12 months??No ?Alcohol Screen?Did you have a drink containing alcohol in the past year??No ?Points?0 ?Interpretation?Negative ???Miscellaneous:?Caffeine: yes, 1-2 cups per day. ?no Children. ?Exercise: yes, walking. ?Marital status: . 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 * Medications:?TakingcloNIDine SEROquel Fenofibrate Lipitor Insulin NexIUM Abilify Gabapentin Actos Jardiance Vitamin D3 Vitamin B 12 Colace Medication List reviewed and reconciled with the patientTaking cloNIDine Taking SEROquel Taking Fenofibrate Taking Lipitor Taking Insulin Taking NexIUM Taking Abilify Taking Gabapentin Taking Actos Taking Jardiance Taking Vitamin D3 Taking Vitamin B 12 Taking Colace Medication List reviewed and reconciled with the patient * Allergies:?KeflexBactrimAspi rinAdvilIbuprofenyes[Allergies Verified] Objective: * Vitals:?Ht: 5 ft 5 in, Wt:20 0, BMI:33.28, Shoe size: 8, BS: 135, Ht-cm: 165.1 cm, Wt-k.72 kg. * ???Past Orders: ???Lab:HEMOGLOBIN A1C (GLYCO HEMOGLOBIN) (Order Date - 11/26/2023) (Collection Date - 11/26/2023) ? Value Reference Range ?TOTAL HEMOGLOBIN (HGBA1C) 7.5 * Examination: ???Ophthalmology Referral: ?DIABETES EYE EXAM?Neurological: ?SENSORY:?Neurological exam demonstrates, reduced light touch sensation, reduced sharp/dull discrimination , reduced vibration sensation, in a stocking fashion, B/L, 5.07 monofilament test performed at plantar aspects of 5 varied sites per foot shows sensation, reduced, B/L.?Nails: ?NAILS are:?Elongated, overgrown, dystrophic , 1-5 B/L.?Dermatologic: ?SKIN FINDINGS:?Skin exam reveals normal color, texture, elasticity, and turgor. There are no masses, nor excrescences. The interspaces are clear, B/L.?Orthopedic: ?MUSCLE STRENGTH:?5/5 all groups in a symmetrical fashion, B/L.?DIGITAL DEFORMITIES:?Digital contracture, PIPJ, 2-5 B/L, incompl-reducible to push-up test, no over, nor underlapping,?there is?evidence of shoe producing skin irritation.?FOOTWEAR:?worn, non-supportive, shoe gear properties exacerbate patient's foot/toe deformity.?Vascular: ?DP PULSES(B):?3/4, B/L.?PT PULSES(B):?3/4, B/L.?CAPILLARY FILL TIME:?immediate, all digits, B/L.?TROPHIC CONDITION-TEXTURE/ELASTICITY/TURGOR/HAIR GROWTH(B):?normal, B/L.?TEMPERTURE GRADIENT(C):?normal, warm to cool, proximal to distal, B/L, B/L.?General Examination: ?GENERAL APPEARANCE:?Reveals a pleasant, alert, well nourished, well- developed, well hydrated individual, who demonstrates proper attention to hygiene/body habitus, and is in no acute distress, Pt serves as own historian for office visit today.?ORIENTED:?person, place, and time.?FOOT EXAM:?Footwear Evaluation? Assessment: * Assessment: 1.?Other hammer toe(s) (acqu ired), right foot - M20.41 (Primary), Chronic problem, Worse (4),Rx Management (4)?2.?Type 2 diabetes mellitus with diabetic polyneuropathy - E11.42?3. Other hammer toe(s) (acquired), left foot - M20.42, Chronic problem, Worse (4),Rx Management (4)? Plan: * Treatment: * Procedures:?Nail Reduction:?Nail Reduction?(-27) Trimming of dystrophic nails performed to reduce/remove overall nail length and girth, by manual and electrical means with use of a nail nipper and/or dremel, to more viable healthy nail plate or bed tissue, any number - G0127.? * Procedure Codes:?G0127 JEFF ING DYSTROPHIC NAILS ANY #, Modifiers: XS * Preventive Medicine:? ??Counseling:?Discussion:?-04: Office or other outpatient visit for the evaluation and management of a new patient, which required a medically appropriate history and/or examination and MODERATE level of DECISION MAKING for: 1 OR MORE CHRONIC PROBLEM(S) THATS WORSENING, 2 STABLE CHRONIC PROBLEMS, A NEWLY DIAGNOSED PROBLEM WITH UNCERTAIN PROGNOSIS, AN ACUTE COMPLICATED INJURY WITH MULTIPLE TREATMENT OPTIONS, OR AN ACUTE PROBLEM WITH ACCOMPANYING SYSTEMIC SYMPTOMS, THAT POSE(S) A MODERATE RISK OF MORBIDITY. THIS CONDITION MAY ALSO INCLUDE RX DRUG MANAGEMENT, OR A DECISON FOR MINOR SURGERY. The visit on the day of the encounter encompassed interpreting the data and educating the patient as to the nature of their condition, treatment options available according to their individual PMH, meds, allergies, and overall health/living conditions, as well as any potential risks or complications that may occur from a failure to adhere to, and participate in, the recommended course of therapy. The discussion included a complete verbal, and/or written explanation of the examination results, any x-rays taken, the proposed diagnosis, and outline of the treatment plan. A schedule for future care needs was also explained. The patient verbalized an understanding of the instructions at this time and agreed to be an active participant in their treatment. If the patient should think of any questions or concerns after the visit, I have encouraged the patient to call the office.?Digital Surgery:?Digital surgery was discussed with the patient, We elected to try conservative treatment at the present time, due to the patients medical history and increased asssociated post-operative risks.?Digital Treatment:?HT- I explained to the patient the possible etiologies of Hammertoes, including genetics/foot type/shoegear/activity level/exercise routine and the risks/benefits of all the different treatment options for their pain including: No treatment at all, Rest, Ice, New/supportive/wider/deeper Shoegear, Digital Padding/Strapping/Taping/Bracing/Gel protective sleeves, Foot/Ankle AFO Bracing, Stretching exercises, Deep Tissue Massage, Arch support/shoe inserts with splay metatarsal padding, and Custom orthoses. I insisted that any digital devices be removed daily and not worn overnight for safety. The patient is to carefully examine the toes daily for any skin irritation while using any splinting or padding device. The advantages and disadvantages of each option were discussed and the patients questions re: shoegear, padding, custom vs prefabricated inserts, activity level, and consistency in home treatment regimens for optimal success were answered to their verbally confirmed satisfaction.?Shoe Gear Counseling:?SHOE Rx - The patient was counseled in great detail on their muscoloskeletal foot and toe deformities which coincided with the dermatological presentations visualized on exam. We discussed how their deformities put the integrity of their feet at risk for potential pedal complications which makes the accomidative diabetic shoes and cutomizable inserts medically necessary. We discussed the different shoe and insert treatment types and options, as well as the important advantages for adhering to regularly wearing these accomidative devices daily. The patient was made aware of the fact that a failure to abide by these recommedations may be deleterious to their foot health as they are able to prevent many pedal complications such as skin irritation, skin ulceration, infection, and even loss of toe/foot/leg/or life. Time was also spent with the patient dispensing and discussing proper diabetic footcare techniques including daily skin moisturization, daily foot inspection for any interruption in skin integrity including open lesions, or sign of infection such as redness/malodor/drainage/swelling. Also discussed and recommended were procedures regarding daily shoe inspection for the presence of internal foreign bodies as well as any visualized irregular shoe or insert wear. Patient questions re: shoes, inserts, and self foot inspections were answered to their satisfaction as the patient verbally confirmed a full understanding of the above information. A Rx for Extra Depth Orthopedic Shoes with 3 pair of custom heat-molded inserts was dispensed.? * Follow Up:?2 Months * Images: * Sign off status: Completed true * Provider:Mo Joseph, DPM Date:?06/2023 Generated for Omari lugo/Sandy/Emileeitting on:?06/12/2024 11:40 AM EST History and Physical Notes * HPI (History of Present Illness) Category Sub-Category Detail Notes Category Not es Toe pain Location: B/L feet Duration: several years Course: worse Aggravated by: shoes, any pressure Treatments: change in shoes At Risk footcare Pt States Last PCP Visit: Date: 4 Examination Category Sub-Category Detail Notes Category Not es Neurological SENSORY: Neurological exa m demonstrates, reduced light touch sensation, reduced sharp/dull discrimination , reduced vibration sensation, in a stocking fashion, B/L, 5.07 monofilament test performed at plantar aspects of 5 varied sites per foot shows sensation, reduced, B/L Dermatologic SKIN FINDINGS: Skin exam reveal s normal color, texture, elasticity, and turgor. There are no masses, nor excrescences. The interspaces are clear, B/L Orthopedic FOOTWEAR: worn, non-suppor tive, shoe gear properties exacerbate patient's foot/toe deformity DIGITAL DEFORMITIES: Digital contracture , PIPJ, 2-5 B/L, incompl-reducible to push-up test, no over, nor underlapping, there is evidence of shoe producing skin irritation MUSCLE STRENGTH: 5/5 all groups in a symmetrical fashion, B/L General Examination GENERAL APPEARANCE: Reveals a pleasant, alert, well nourished, well-developed, well hydrated individual, who demonstrates proper attention to hygiene/body habitus, and is in no acute distress, Pt serves as own historian for office visit today FOOT EXAM: Lower Extremity Neurological Exa m performed:: Yes ORIENTED: person, place, and t virgilio Footwear Evaluation Footwear Evaluation performe d:: Yes Ophthalmology Referral DIABETES EYE EXAM Diabetic Reti nopathy Screening:: Yes 2023 Findings of Diabetic Eye Exam:: no retin opathy Vascular DP PULSES(B): 3/4, B/L PT PULSES(B): 3/4, B/L CAPILLARY FILL TIME: immediate, all digi ts, B/L TEMPERTURE GRADIENT(C): normal, warm to cool, proximal to distal, B/L, B/L TROPHIC CONDITION-TEXTURE/ELASTICITY/TURGOR/HAIR GROWTH(B): normal, B/L Nails NAILS are: Elongated, overgrown, dystro phic , 1-5 B/L
--- OUTSIDE RECORDS SUMMARY | 2024-06-12 11:41 | XMS_ITS | Patient Health Record ---
Author Organization [facility] Address [address] [place] [address] Care Team Providers Care Gold And Silver Assayer Name Role Phone Chiquis Grajeda Primary Care Provider Zen Dickerson Unavailable [phone] Ijeoma Joseph Unavailable [phone] Allergies Allergen (clinical drug ingredient) Drug/Non Drug Allergy documented on EMR Reaction Allergy Type Onset Date Status ibuprofen Advil Unknown Drug Allergy Active aspirin Aspirin Unknown Drug Allergy Active sulfamethoxazole / trimethoprim Bactrim Unknown Drug Allergy Active ibuprofen Ibuprofen Unknown Drug Allergy Active Keflex Unknown Drug Allergy Active Results Component Value Reference Range Notes HEMOGLOBIN A1C (GLYCOHEMOGLO BIN) Reviewed date:03/27/2024 09:20:48 AM Interpretation: Performing Lab: Notes/Report: TOTAL HEMOGLOBIN (HGBA1C) 7.5 Reason For Referral No Information Medications Medication SIG (Take, Route, Frequency, Duration) Notes Start Date End Date Status Extra Depth Orthopedic Shoes (1 Pair) with Customized Heat Molded Multidensity Innersoles (3 Pair) as directed Dx: NIDDM/Polyneuropathy (E11.42), Hammertoe Foot Deformity (M20.41,M20.42), Preulcerative Skin Lesion(s) (L85.1 03/27/2024 Active Vitamin D3 Active Jardiance Active SEROquel Active Colace Active cloNIDine Active Vitamin B 12 Active Lipitor Active Fenofibrate Active Insulin Active Abilify Active NexIUM Active Actos Active Gabapentin Active Social History Tobacco Use: Social History [...] Problem Status W/U Status Risk Notes Problem Acquired hammer toe of right foot (9709037001288508 ) Other hammer toe(s) (acquired), right foot (M20.41) Active confirmed Problem Acquired hammer toe of left foot (2224808790278673 ) Other hammer toe(s) (acquired), left foot (M20.42) Active confirmed Problem Polyneuropathy due to type 2 diabetes mellitus (649852630) Type 2 diabetes mellitus with diabetic polyneuropathy (E11.42) Active confirmed Vital Signs Height 5 ft 5 in in 03/27/2024 Weight 200 lbs 03/27/2024 BMI 33.28 kg/m2 03/27/2024 Encounters Encounter Location Date Provider Diagnosis [facility] [address] 03/27/2024 Ijeoma Joseph Type 2 diabetes mellitus with diabetic polyneuropathy E11.42 ; Other hammer toe(s) (acquired), right foot M20.41 and Other hammer toe(s) (acquired), left foot M20.42 [facility] [address] 09/16/2023 Zen Maria [facility] [address] 12/27/2023 Zen Maria Assessments Encounter Date Diagnosis (ICD Code) Assessment Notes Treatment Notes Treatment Clinical Notes Section Notes 03/27/2024 Other hammer toe(s) (acquired), right foot (ICD-10 - M20.41) Patient Educated with: DIABETIC FOOT CARE INSTRUCTIONS. pdf (DIABETIC FOOT CARE INSTRUCTIONS. pdf) 03/27/2024 Type 2 diabetes mellitus with diabetic polyneuropathy (ICD-10 - E11.42) 03/27/2024 Other hammer toe(s) (acquired), left foot (ICD-10 - M20.42) Plan Of Treatment Next Appt Details Provider Name:Ijeoma pitts, 06/19/2024 11:15:00 AM, [address] [place], [address], Insurance Providers Payer Name Payer Address Payer Phone Subscriber Number Group Number Insured Name Patient Relationship to Insured Coverage Start Date Coverage End Date [facility] [employer] Claims [address] [place] [address] [phone] [id number] Sofiya Rivas Self - patient is the insured Medical (General) History Medical History History ICD Code Anxiety Arthritis Back,Hip,and Knee pain Cataracts Depression Diabetic Glaucoma Lung disease Macular degeneration Numbness Reflux ( GERD) thyroid Measles Chicken pox Joint implants/screws Transfusions Surgical History Surgery Date(Month/Year) back surgery [id number] facial cosmetic surgery 1976 spine surgery 11/16/2023 Hospitalization History Reason Date(Month/Year) [facility] spine surgery 11/16/2023
--- OUTSIDE RECORDS SUMMARY | 2024-06-12 11:41 | XMS_ITS ---
Author Organization [facility] Address [address] [place] [address] Care Team Providers Care Flarer Name Role Phone Chiquis Grajeda Primary Care Provider Zen Dickerson [phone] Encounters Encounter Location Date Provider Diagnosis [facility] [address] [place] [address] 09/20/2023 Zen Maria Plan Of Treatment Next Appt Details Provider Name:Ijeoma pitts, 06/19/2024 11:15:00 AM, [address] [place] [address], [address], Progress Notes * Sofiya RIVAS EDOB: [birth year] (73 yo F)Acc No.[id number]:09/20/2023 Progress Notes Patient:?Sofiya RIVAS Provider:?Zen Maria DPM :1950???Age:72 Y???Sex:Female D ate:09/20/2023 Address:[address] [place], [place] [id number] Pcp:Chiquis Grajeda Subjective: * Chief Complaints: * ??? * Medical History:? Objective: * Vitals:? Assessment: Plan: * Treatment: * Images: * The named appointment provid er may or may not be the originator of this progress note, and it is not deemed complete until electronically signed by the appointment provider. Sign off status: Pending * Provider:?Zen Maria DPM Date:?2023 Generated for Omari lugo/Sandy/Mario on:?06/12/2024 11:41 AM EST
--- OUTSIDE RECORDS SUMMARY | 2024-06-12 11:41 | XMS_ITS ---
Author Organization [facility] Address [address] [place] [address] Care Team Providers Care Nutritionist Public Health Name Role Phone Chiquis Grajeda Primary Care Provider Zen Dickerson [phone] REASON FOR VISIT SHOE CLEANER PPWK Entered Encounters Encounter Location Date Provider Diagnosis [address] [address] 12/27/2023 Zen Maria Plan Of Treatment Next Appt Details Provider Name:Ijeoma pitts, 06/19/2024 11:15:00 AM, [address] [place], [address], Progress Notes * Sofiya RIVAS EDOB: [birth year] (73 yo F)Acc No.[id number]:12/27/2023 Patient:?Sofiya Rivas :1950???Age:73 Y???Sex:Female Address:[address] [place] [address], [address] * true * Date:? Generated for [place]/Sandy/eTransmitting on:?06/12/2024 11:41 AM EST
--- OUTSIDE RECORDS SUMMARY | 2024-06-12 11:42 | XMS_ITS | Data Portability ---
Author Organization [facility] [place] in - [facility] Address [address] [place] [address] Care Team Providers Care Party Coordinator Name Role Phone SRIKALA Primary Care Provider Assessment Encounter Date Assessment Date Assessment LastModified by Organization Details LastModified Time 01/25/2022 01/25/2022 I have reviewed and agree with the assessment and plan as documented by the manager support services. I provided real-time medical direction for this encounter and was immediately available to provide additional phone-based assistance as needed. 71F presenting with 5 days of oral sore. No swelling or edema, no erythema. Airway patent. Appears consistent with aphthous ulcer. Pt advised to use ice as needed and will prescribe oral benzocaine. Red flag precautions discussed with patient. paysola Not available 01/25/2022 20:01:49 02/23/2023 02/23/2023 I provided real -time medical direction via phone for this encounter, and was available for additional phone based assistance as needed. I have reviewed and agree with the Assessment and Plan as documented by the Manager Cath Lab. Patient given the opportunity to ask questions. Advised if develops CP/severe SOB/turning blue/uncontrolle d n/v/d or black/bloody emesis or stool/ AMS/ syncope/ hi fever to call 911- verbalized understanding of instructions Not available 02/23/2023 11:45:02 Plan of Treatment Reminders Order Date Submit Date Provider Last Modified By Organization Details Last Modified Time Details Appointments None recorded. Lab rapid SARS CoV 2 Ag, QL IA, respiratory specimen 2022 023 [email or web address] 0 [facility], [address] [place] [address], [phone], 11:00:43 rapid flu (A+B) 2022 023 [email or web address] 0 [facility], [address] [place] [address], [address], 3 11:00:43 BMP, serum or plasma 2022 023 [email or web address] 0 [facility], [address] [place] [address], [address], 13:32:46 Referral None recorded. Procedures None recorded. Surgeries None recorded. Imaging None recorded. Medication Orders Anbesol (benzocaine ) 10 % oral mucosal liquid [address] [facility] #[id number], [address] [place], [address], 20:01:49 prednisone 20 mg tablet [address] [facility] #[id number], [address] [place], [address], 3 11:44:47 prednisone 20 mg tablet 2022 023 [email or web address] [facility]/Pharmacy #[id number], [address] [place], [address], 3 11:44:43 molnupiravi r 200 mg capsule (EUA) [address] [facility]arm[facility] #[id number], [address] [place], [address], 3 11:44:46 Patient TargetsNo targets recorded. Patient InstructionsNo instructions recorded. Reason for Referral None Reported. Results Created Date Observation Date Name Description Value Unit Range Abnormal Flag Note LastModifiedBy Organization Detail LastModifiedTime 02/24/2002/23/2023 BMP, serum or plasm a BUN 8 Not Available [facility] [address] [place], [address], 02/23/2023 11:45:10 02/24/20 23 02/23/2023 BMP, serum or plasm a Ca Ionize d calciu m 1.18 Not Available [facility] [address] [place] [address], [address], 02/23/2023 11:45:10 02/24/20 23 02/23/2023 BMP, serum or plasm a CI- 98 Not Available Main - [facility] [address], [address], 02/23/2023 11:45:10 02/24/20 23 02/23/2023 BMP, serum or plasm a CRE 0.7 Not Available Main - [facility] [address], [address], 02/23/2023 11:45:10 02/24/20 23 02/23/2023 BMP, serum or plasm a GLU 187 after OJ Not Available Main - [facility] ed [address] [place] [address], [address], 02/23/2023 11:45:10 02/24/20 23 02/23/2023 BMP, serum or plasm a K+ 3.8 Not Available Main - [facility] [address], [address], 02/23/2023 11:45:10 02/24/20 23 02/23/2023 BMP, serum or plasm a Na+ 143 Not Available Main - [facility] [address], [address], 02/23/2023 11:45:10 02/24/20 23 02/23/2023 BMP, serum or plasm a tCO2 25 Not Available Main - [facility] [address], [address], 02/23/2023 11:45:10 02/24/20 23 02/23/2023 rapid flu (A+B) Flu negati ve Not Available [facility] [address] [place] [address], [address], 02/23/2023 10:58:20 0802/23/2023 rapid SARS CoV 2 Ag, QL IA, respi rator y speci men rapid SARS CoV 2 Ag, QL IA, respiratory specimen positi ve Not Available Main - [facility] ed [address] [place] [address], [address], 02/23/2023 10:58:11 Result Notes None recorded. Medical Equipment None Reported. Allergies Allergen ID Allergen Name Allergen Category Reaction Reaction Severity Criticality Documentation Date Start Date Code Code System Note Provider Name and Address Organization Details Recorded Time 3135 ibuprofen medicatio n Not available Not available Not available 02/23/2023 5640 RxNorm Not true aller gy has a histo ry of pud Sally Blancas MD [address] [place] [address],[address], [place], [address], [employer] 3 10:59:29 3136 aspirin medicatio n Not available Not available Not available 02/23/2023 1191 RxNorm Sally Blancas MD [address] [place] [address],[address], [place], [address], [facility], [employer] 3 10:59:35 3137 Ultram medicatio n Not available Not available Not available 02/23/2023 91247 6 RxNorm Sally Blancas MD [address] [place] [address],[address], [place], [address], [facility], [employer] 3 10:59:42 3138 Geodon medicatio n Not available Not available Not available 02/23/2023 58377 4 RxNorm Sally Blancas MD [address] [place] [address],[address], [place], [address], [facility], [employer] 3 10:59:47 Medications Name Sig Start Date Stop Date Status Note LastModified by Organization Details LastModified Time delivery fee active Not Available Not Available Not Available quetiapine 25 mg tablet active Not Available Not Available Not Available amoxicillin 500 mg capsule active Not Available Not Available Not Available latanoprost 0.005 % eye drops INSTILL 1 DROP INTO BOTH EYES EVERY NIGHT DIRECTED active Not Available Not Available Not Available pioglitazone 15 mg tablet active Not Available Not Available Not Available atorvastatin 40 mg tablet active Not Available Not Available Not Available gabapentin 600 mg tablet TAKE 1 TABLET BY MOUTH 3 TIMES DAILY. active Not Available Not Available No t Available doxycycline hyclate 100 mg capsule TAKE 1 CAPSULE BY MOUTH TWICE A DAY FOR 10 DAYS active Not Available Not Available No t Available senna 8.6 mg tablet active Not Available Not Available Not Available polyvinyl alcohol 1.4 % eye drops active Not Available Not Available Not Available prednisone 20 mg tablet TAKE 2 TABLETS BY MOUTH EVERY DAY WITH MEALS FOR 5 DAYS active Not Available Not Available No t Available clonazepam 0.5 mg tablet TAKE 1 TABLET BY MOUTH ONCE DAILY NEEDED FOR ANXIETY. DO NOT TAKE AT BEDTIME. active Not Available Not Available No t Available melatonin 3 mg tablet active Not Available Not Available No t Available fexofenadine 180 mg tablet active Not Available Not Available Not Available levothyroxin e 25 mcg tablet TAKE 1 TABLET BY MOUTH DAILY AT 6AM. active Not Available Not Available No t Available cyanocobalam in (vit B-12) 500 mcg tablet TAKE 1 TABLET BY MOUTH EVERY DAY active Not Available Not Available No t Available esomeprazole magnesium 40 mg capsule,jerrell yed release active Not Available Not Available Not Available Gentle Laxative (bisacodyl) 5 mg tablet,delay ed release TAKE 2 TABLETS BY MOUTH ONCE DAILY AT BEDTIME NEEDED FOR CONSTIPATIO N active Not Available Not Available No t Available docusate sodium 100 mg capsule active Not Available Not Available N ot Available codeine 10 mg-guaifenes in 100 mg/5 mL oral liquid TAKE 10 ML BY MOUTH EVERY 4 TO 6 HOURS NEEDED FOR POST COVID / COUGH FOR 15 DAYS active Not Available Not Available No t Available albuterol sulfate HFA 90 mcg/actuatio n aerosol inhaler active Not Available Not Available Not Available amoxicillin 875 mg-potassium clavulanate 125 mg tablet TAKE 1 TABLET BY MOUTH EVERY 12 HOURS (PATIENT TO STOP DOXYCYCLINE AND START THIS MED) active Not Available Not Available No t Available aripiprazole 15 mg tablet active Not Available Not Available Not Available aripiprazole 20 mg tablet active Not Available Not Available Not Available Novolog FlexPen U-100 Insulin aspart 100 unit/mL (3 mL) subcutaneous active Not Available Not Available Not Available nitrofuranto in monohydrate/ macrocrystal s 100 mg capsule TAKE 1 CAPSULE (100MG) BY MOUTH TWICE A DAY WITH FOOD active Not Available Not Available No t Available duloxetine 60 mg capsule,jerrell yed release TAKE 1 CAPSULE BY MOUTH TWICE DAILY. active Not Available Not Available No t Available levalbuterol HFA 45 mcg/actuatio n aerosol inhaler active Not Available Not Available Not Available fenofibrate 160 mg tablet active Not Available Not Available Not Available Alphagan P 0.1 % eye drops active Not Available Not Available Not Available Advair HFA 230 mcg-21 mcg/actuatio n aerosol inhaler active Not Available Not Available Not Available Anbesol (benzocaine) 10 % oral mucosal liquid Take 1 mL twice a day by mucous route for 7 days. 2021 active Not Available Not Available Not Avai lable quetiapine 50 mg tablet active Not Available Not Available Not Available levocetirizi ne 5 mg tablet active Not Available Not Available Not Available cholecalcife rol (vitamin D3) 50 mcg (2,000 unit) capsule active Not Available Not Available Not Available cholecalcife rol (vitamin D3) 50 mcg (2,000 unit) tablet active Not Available Not Available Not Available UltiCare Pen Needle 32 gauge x 5/32 active Not Available Not Available Not Available Victoza 3-Jeanmarie 0.6 mg/0.1 mL (18 mg/3 mL) subcutaneous pen injector active Not Available Not Available Not Available Jardiance 25 mg tablet active Not Available Not Available No t Available Belsomra 15 mg tablet active Not Available Not Available No t Available Tresiba FlexTouch U-100 insulin 100 unit/mL (3 mL) subcutaneous pen active Not Available Not Available Not Available Rocklatan 0.02 %-0.005 % eye drops active Not Available Not Available Not Available Lagevrio 200 mg capsule (EUA) TAKE 4 CAPSULES BY MOUTH EVERY 12 HOURS FOR 5 DAYS active Not Available Not Available N ot Available Vitals Date Recorded Respiratory rate Heart rate Body temperature Oxygen saturation Oxygen saturation in Arterial blood by Pulse oximetry Inhaled oxygen flow rate Systolic blood pressure Diastolic blood pressure Provider Name and Address Organization Details Last Updated DateTime 3 20 /min 83 /min 98.5 [degF] 93 % 93 % 2 L/min 104 mm[Hg] 64 mm[Hg] Not Available [facility] 3 10:50:54 Date Recorded Oxygen saturation Oxygen saturation in Arterial blood by Pulse oximetry Heart rate Body temperature Respiratory rate Systolic blood pressure Diastolic blood pressure Provider Name and Address Organization Details Last Updated DateTime 98 % 98 % 76 /min 97.9 [degF] 18 /min 133 mm[Hg] 87 mm[Hg] Not Available [facility] 19:51:54 Social History None recorded. Functional Status None recorded. Mental Status None recorded. Family History Nothing Reported. Medical History No medical history recorded. Gynecological HistoryNo gynecological history recorded. Obstetrics History GPAL:G 0 P 0 0 0 0 Past Encounters Encounter ID Performer Location Encounter Start Date Encounter Closed Date Diagnosis/Indication Diagnosis SNOMED-CT Code Diagnosis ICD10 Code [id number] Maryam Acevedo MD [facility] [address] [place] [address] 01/25/2022 19:51:49 03/03/2022 12:49:36 Aphthous ulcer of mouth 301743095 K12.0 [id number] Sally Blancas MD [facility] [address] [place] [address] 02/23/2023 10:50:46 02/23/2023 23:49:31 Acute exacerbation of chronic obstructive pulmonary disease 579981601 J44.1 COVID-19 007894914 U07.1 Health Concerns Section Related Observation LastModified by Organization Detai ls LastModified Time None Recorded Concern Status LastModified by Organization Details LastModified Time None Recorded Advance Directives Directive None Recorded Payers Encounter Date Sequence Insurance Name Policy Number Policy Kingsley Covered Member ID Kingsley Member ID Guarantor Name 01/25/2022 1 [facility] - DOS PRIOR TO 2022 - DUAL ELIGIBLE (MEDICARE REPLACEMENT/ADV ANTAGE - HMO) Sofiya Rivas [id number] Sofiya Rivas 02/23/2023 1 [facility] - DOS ON OR AFTER 2022 - DUAL ELIGIBLE - [employer] AND ONE CARE (MEDICARE REPLACEMENT/ADV ANTAGE - HMO) Sofiya Rivas [id number] Sofiya Rivas Notes Date Note Type Note Provider Name and Address Organization Details Recorded Time 01/25/2022 text/html HPI: Member called with complaints of a large white spot on the dorsal surface of her tongue. She suggests that there is edema around the spot. She denies edema in the entire tongue. She is able to speak clearly, no respiratory distress or potential airway patency issues. She says that is is very painful when she eats and drinks. Member has upper dentures. Denies sore throat or difficulty swallowing. Denies taking any new medications. States the pain has been there for 5 days. Member does not leave her home due to macular degeneration. Her in-home care provider noted the spot today when she complained and she looked into her mouth. Protocol Used: Mouth Pain Protocol-Based Disposition: Consider RAD[facility] Rosales Community clinician, MD/GLOBAL SECURITY ARCHITECT triage, PCP, or Urgent Care Visit within 4 Hours .................. .................. .................. .................. .................. .................. .................. ............... CRC Nursing Assessment: Comments: CRC Rn did not need further info to process visit Maryam Acevedo MD [address] [place] [address],[address], [place], [address], [facility] [employer] VANIA 01/25/2022 20:01:58 02/23/2023 text/html CRC Nursing Assessment: Reason For Request: COPD Chief Complaints: Cough, COPD, Shortness of Breath/Dyspnea PMH: Diabetes, COPD/Asthma Comments: Member calling in to place referral, identified via /name. Member with COPD o2 dep on 2L, current smoker. Member had a +sick contact on Tuesday, per member friend is negative for covid. With with congested harsh productive cough, sob and wheezes. She has 1 inhaler she uses, unsure of the name, members sat has been 88-90%. Denies fever/chills, had vomiting Tuesday night and diarrhea yesterday, but none today. Member would like to be evaluated. .................. .................. .................. .................. .................. .................. .................. ............... Manager Cath Lab Note From Carlos Stuart: Per CRC: Member calling in to place referral, identified via /name. Member with COPD o2 dep on 2L, current smoker. Member had a +sick contact on Tuesday, per member friend is negative for covid. With with congested harsh productive cough, sob and wheezes. She has 1 inhaler she uses, unsure of the name, members sat has been 88-90%. Denies fever/chills, had vomiting Tuesday night and diarrhea yesterday, but none today. Member would like to be evaluated. Goals per CRC: Visit for member with COPD vs infection, assess lungs and breathing, may need steroids and/or abx, test and treat as indicated to improve symptoms. S: Arrived on scene to visit member for congestion and cough x 3 days. Arrived on scene found pt in chair in NAD, CAOx4. Pt states she was visiting friend on Tuesday who had a cough, today pt c/o of productive cough, conjestion and runny nose. Vitals and assessment preformed. O: HEENT: Head Normocephalic/Atra umatic Eyes: PEERL Neck: supple no JVD, No Trach deviation LS clear and equal in all meneses Abd soft/non-tender Extremities: +ROM +CSM in all ext., lower bilat. extremities -edema +pedal pulses A: Vitals and assessment preformed, Preformed istat chem8 blood test also preformed covid, and flu a/b rapid tests, pts covid test is positive. Flu a/b negative, following called [facility] with report. P: [facility] [place] Dr. Blancas was called and given report, Care plan for today to give pt 40mg of Prednisone PO and Dr. Blancas will call in to pts Pharmacy Prednisone and antibiotic. Dr. Gilbert also ordered pt to take her own albuterol MDI 2 puffs every 4 hrs and Advair 2 puffs 2 times a day which pt has prescribed to her and to make follow up with PCP tomorrow. Red flags discussed [facility] clear. [facility] [place] Lab Orders: rapid SARS CoV 2 Ag, QL IA, respiratory specimen: Performed rapid flu (A+B): Performed BMP, serum or plasma: Performed [facility] [place] Medication Orders: prednisone 20 mg tablet: Administered .................. .................. .................. .................. .................. .................. .................. ............... Disposition: Fulfilled Sally lBancas MD [address] [facility],[address], [place], [address], Sol[facility] 02/23/2023 13:35:59 OBGyn Episode No OBEpisode recorded.
== END 2024-06-12 13:23 | disposition home or self-care (01) ==
PROVIDERS: PCP Internal Medicine; Visit Provider Internal Medicine
DX: F17.200 Nicotine dependence, unspecified, uncomplicated (principal); R09.02 Hypoxemia; G47.34 Idiopathic sleep related nonobstructive alveolar hypoventilation; J44.1 Chronic obstructive pulmonary disease with (acute) exacerbation
CPT/HCPCS: 99214

== ENCOUNTER → 2024-06-12 11:18 | Outpatient (BNVA) | payer OTHER, SELFPAY | PROVIDERS: PCP Internal Medicine; Visit Provider Internal Medicine | DX: R09.02 Hypoxemia (principal); G47.34 Idiopathic sleep related nonobstructive alveolar hypoventilation; J44.1 Chronic obstructive pulmonary disease with (acute) exacerbation; F17.210 Nicotine dependence, cigarettes, uncomplicated; Z99.81 Dependence on supplemental oxygen | CPT/HCPCS: 99212 ==

== ENCOUNTER 2024-06-13 10:37 | Outpatient (AMB) | payer OTHER, SELFPAY ==
--- OUTSIDE RECORDS SUMMARY | 2024-06-13 10:38 | XMS_ITS ---
Author Organization [facility] jan[facility] Address [address] [place] [address] Care Team Providers Care Check Embosser Name Role Phone Chiquis Grajeda Primary Care Provider Zen Dickerson Unavailable [phone] Ijeoma Joseph Unavailable [phone] Allergies Allergen (clinical drug ingredient) Drug/Non Drug [...] Polyneuropathy due to type 2 diabetes mellitus (083049133) Type 2 diabetes mellitus with diabetic polyneuropathy (E11.42) Active confirmed Problem Acquired hammer toe of right foot (4994799997105860 ) Other hammer toe(s) (acquired), right foot (M20.41) Active confirmed Problem Acquired hammer toe of left foot (8324049136418898 ) Other hammer toe(s) (acquired), left foot (M20.42) Active confirmed Vital Signs Height 5 ft 5 in in 03/27/2024 Weight 200 lbs 03/27/2024 BMI 33.28 kg/m2 03/27/2024 Encounters Encounter Location Date Provider Diagnosis [facility] [address] [address] 03/27/2024 Ijeoma Joseph Type 2 diabetes mellitus [...] Provider Name:Ijeoma pitts, 06/19/2024 11:15:00 AM, [address] [place], [address], Procedure Notes * Category Sub-Category Detail Notes Nail Reduction Nail Reduction (-27) Trimming o f dystrophic nails performed to reduce/remove overall nail length and girth, by manual and electrical means with use of a nail nipper and/or dremel, to more viable healthy nail plate or bed tissue, any number - G0127 Progress Notes * Sofiya RIVAS EDOB: [birth year] (73 yo F)Acc No.[id number]:03/27/2024 Progress Notes Patient:?Sofiya Rivas Provider:?Ijeoma Joseph DPM :1950???Age:73 Y???Sex:Female D ate:03/27/2024 Address:[address] [place], [place] [id number] Pcp:Chiquis Grajeda Subjective: * Chief Complaints: * [...] Surgical History:?[facility] surge ry 1997[facility] * Hospitalization/Major Diagno stic Procedure:?[facility] spine surgery 11/16/2023 * Family History:?Mother: dece [...] * Sign off status: Completed true * Provider:?Ijeoma Joseph, DPM Date:?06/2023 Generated for Omari lugo/Sandy/Emileeitting on:?06/13/2024 10:38 AM EST History and Physical Notes * [...] Eye Exam:: no retin opathy Vascular DP PULSES (B): 3/4, B/L PT PULSES (B): 3/4, B/L CAPILLARY FILL TIME: immediate, all digi ts, B/L TEMPERTURE GRADIENT (C): normal, warm to cool, proximal to distal, B/L, B/L TROPHIC CONDITION-TEXTURE/ELASTICITY/TURGOR/HAIR GROWTH (B): normal, B/L Nails NAILS are: Elongated, overgrown, dystro phic , 1-5 B/L
--- OUTSIDE RECORDS SUMMARY | 2024-06-13 10:39 | XMS_ITS ---
Author Organization [facility] Address [address] [place] [address] Care Team Providers Care Rip Saw Operator Name Role Phone Chiquis Grajeda Primary Care Provider Zen Dickerson [phone] REASON FOR VISIT STUDIO OPERATIONS MANAGER PPWK Entered Encounters Encounter Location Date Provider Diagnosis [address] [address] 12/27/2023 Zen Maria Plan Of Treatment Next Appt Details Provider Name:Ijeoma pitts, 06/19/2024 11:15:00 AM, [address] [place], [address], Progress Notes * Sofiya RIVAS EDOB: [birth year] (73 yo F)Acc No.[id number]:12/27/2023 Patient:?Sofiya Rivas :1950???Age:73 Y???Sex:Female Address:[address] [place] [address], [address] * true * Date:? Generated for Printi parish/Sandy/eTransmitting on:?06/13/2024 10:38 AM EST
--- OUTSIDE RECORDS SUMMARY | 2024-06-13 10:39 | XMS_ITS | Patient Health Record ---
Author Organization [facility] Address [address] [place] [address] Care Team Providers Care Laser Technician Name Role Phone Chiquis Grajeda Primary Care Provider Zen Dickerson Unavailable [phone] Ijeoma Joseph Unavailable [phone] Allergies Allergen (clinical drug ingredient) Drug/Non Drug [...] Problem Acquired hammer toe of right foot (0227225666852958 ) Other hammer toe(s) (acquired), right foot (M20.41) Active confirmed Problem Acquired hammer toe of left foot (1850929410220449 ) Other hammer toe(s) (acquired), left foot (M20.42) Active confirmed Problem Polyneuropathy due to type 2 diabetes mellitus (468692482) Type 2 diabetes mellitus with diabetic polyneuropathy (E11.42) Active confirmed Vital Signs Height 5 ft 5 in in 03/27/2024 Weight 200 lbs 03/27/2024 BMI 33.28 kg/m2 03/27/2024 Encounters Encounter Location Date Provider Diagnosis [facility] [address] 03/27/2024 Ijeoma Joseph Type 2 diabetes mellitus with diabetic polyneuropathy E11.42 ; Other hammer toe(s) (acquired), right foot M20.41 and Other hammer toe(s) (acquired), left foot M20.42 [facility] [address] 09/16/2023 Zen [facility] [address] 12/27/2023 Zen Maria Assessments Encounter Date Diagnosis [...] Provider Name:Ijeoma pitts, 06/19/2024 11:15:00 AM, [address] [place], [address], Insurance Providers Payer Name Payer Address Payer Phone Subscriber Number Group Number Insured Name Patient Relationship to Insured Coverage Start Date Coverage End Date [facility] [employer] Claims [address] [place] [address] [phone] [id number] Sofiya Rivas Self - patient is the insured Medical (General) History Medical History History ICD Code Anxiety Arthritis Back,Hip,and Knee pain Cataracts Depression Diabetic Glaucoma Lung disease Macular degeneration Numbness Reflux ( GERD) thyroid Measles Chicken pox Joint implants/screws Transfusions Surgical History Surgery Date(Month/Year) back surgery [phone] facial cosmetic surgery 1976 spine surgery 11/16/2023 Hospitalization History Reason Date(Month/Year) [facility] spine surgery 11/16/2023
--- OUTSIDE RECORDS SUMMARY | 2024-06-13 10:39 | XMS_ITS ---
Author Organization [facility] Address [address] [place] [address] Care Team Providers Care Manager Of Supply Chain Name Role Phone Chiquis Grajeda Primary Care Provider Zen Dickerson [phone] Encounters Encounter Location Date Provider Diagnosis [facility] [address] [place] [address] 09/20/2023 Zen Maria Plan Of Treatment Next Appt Details Provider Name:Ijeoma pitts, 06/19/2024 11:15:00 AM, [address] [place] [address], [id number], Progress Notes * Sofiya RIVAS EDOB: [birth year] (73 yo F)Acc No.[id number]:09/20/2023 Progress Notes Patient:?Sofiya RIVAS Provider:?Zen Maria DPM :1950???Age:72 Y???Sex:Female D ate:09/20/2023 Address:[address] [place], [place] [id number] Pcp:Chiquis Grajeda Subjective: * Chief Complaints: * ??? * Medical History:? Objective: * Vitals:? Assessment: Plan: * Treatment: * Images: * The named appointment provid er may or may not be the originator of this progress note, and it is not deemed complete until electronically signed by the appointment provider. Sign off status: Pending * Provider:?Zen Maria DPM Date:?2023 Generated for Omari lugo/Sandy/Mario on:?06/13/2024 10:38 AM EST
--- NOTE | 2024-06-13 10:57 | A.OFFVIS_ITS ---
Intake Visit Reasons: vulvar check/ possible bx/DO NOT RS [employer] Officer: [employer] Officer Present (Nelida Jacobs [facility]) Accompanied by: Other Relationship Allergies aspirin [ASPIRIN] Allergy (Severe, Verified 06/13/24 10:59) GI bleed, stomach upset ibuprofen [IBUPROFEN] Allergy (Severe, Verified 06/13/24 10:59) GI Bleed, stomach upset valsartan [From Diovan] Allergy (Severe, Verified 06/13/24 10:59) hives ziprasidone [From Geodon] Allergy (Severe, Verified 06/13/24 10:59) RASH-PALPITATIONS azithromycin Allergy (Intermediate, Verified 06/13/24 10:59) facial swelling metformin [METFORMIN] Allergy (Intermediate, Verified 06/13/24 10:59) NAUSEA & VOMITING, GI upset cephalexin [From KEFLEX] Allergy (Unknown, Verified 06/13/24 10:59) can't remember lisinopril Allergy (Unknown, Verified 06/13/24 10:59) cough NSAIDS (Non-Steroidal Anti-Inflamma [NSAIDS (NON-STEROIDAL ANTI-INFLAMMA] Adverse Reaction (Severe, Verified 06/13/24 10:59) HX OF GI BLEED tramadol [Ultram] Adverse Reaction (Severe, Verified 06/13/24 10:59) GI upset sulfamethoxazole [From Bactrim] Adverse Reaction (Intermediate, Verified 06/13/24 10:59) Hives tiotropium [From Spiriva with HandiHaler] Adverse Reaction (Intermediate, Verified 06/13/24 10:59) Unknown trimethoprim [From Bactrim] Adverse Reaction (Intermediate, Verified 06/13/24 10:59) Hives doxycycline Adverse Reaction (Mild, Verified 06/13/24 10:59) Stomach Upset HPI Comments Details: Presenting for follow-up, used 1% hydrocortisone externally not feel a difference in terms of her vulvar irritation symptoms Vulval biopsy in 09/16 showed spongiotic dermatitis BV panel in 10/18 was negative for Krystal PFSH Medical History Acute exacerbation of chronic obstructive pulmonary disease (COPD) Dermatitis of vulva Uses wheelchair Wears dentures Supplemental oxygen dependent Slow to wake up after anesthesia Lumbar spinal stenosis Smoker Nicotine dependence, cigarettes, uncomplicated Acute respiratory failure with hypoxia Vulvar ulcer Recurrent major depression-severe Lower extremity pain Sialoadenitis Jaw pain العلي (dyspnea on exertion) Chest pain Osteopenia (~2015) Sinus tachycardia Pulmonary nodule Menopausal state Artificial menopause state Constipation Nocturnal hypoxemia COPD (chronic obstructive pulmonary disease) Spinal stenosis Depression Vitamin D deficiency Multinodular thyroid HLD (hyperlipidemia) T2DM (type 2 diabetes mellitus) (~2008) Surgical History History of cataract surgery S/P thyroid biopsy History of lithotripsy History of cardiac catheterization Hx of colonoscopy Hx of arthroscopy of left knee Hx of spinal fusion Hx of cholecystectomy Family History Father No problems noted. 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) Alcohol intake: never Comment: aware of trip hazard Patient Tobacco Use Status: Current everyday Tobacco user Smoking Start Date: 04/01/1964 Tobacco use type: Cigarette Cigarette Packs Per Day: 1 Cigarettes Per Day: 20 Years Smoked: 60 e-Cigarette/Vaping Use: Former Use Second Hand Smoke Exposure: No Advance Directives Date on File: 12/02/22 service: No Current occupational status: retired Sexual orientation: Straight/Heterosexual Cognitive needs: No Hearing needs: No Vision needs: Yes Female Reproductive History Menstrual Age of Menarche: 12 Review of Systems Const All systems reviewed & are unremarkable except as noted in HPI and below Physical Exam General: Yes no CVA tenderness External Female Exam: normal external appearance (External erythema no lesions) and normal appearance of the urethra Speculum Exam - Vagina: normal appearance of the vagina, normal palpation, no lesions and no masses Speculum Exam - Cervix: normal appearance of the cervix, normal palpation, no lesions, no masses and nontender Bimanual exam- vagina & uterus: normal bimanual exam, normal palpation, uterine size normal, normal palpation, uterine shape normal, No Cervical tenderness present and non-tender Bimanual Exam- Adnexa, other: normal adnexae Back/Spine/Pelvis Back: no CVA tenderness Assessment & Plan Assessment & Plan (1) Dermatitis: Comment: Of bilateral vulva Code(s): L30.9 - Dermatitis, unspecified Category: Medical Plan: Since previous by HCG showed spongiotic dermatitis and BV panel few months ago was negative Kyrstal, Will treat with clobetasol b.i.d. for 5 days. Instructions given the patient to schedule a 2 week follow-up appointment if no improvement will consider vulvar biopsy. All questions answered, the patient verbalized understanding Medications: New clobetasol 0.05% 1 appl topical BID 5 days 45 grams 0RF Coding Level of Care Code Est Pt Level 3 (76848) Diagnoses Dermatitis L30.9
== END 2024-06-13 11:16 | disposition home or self-care (01) ==
LOC: HO.HWS 10:37
PROVIDERS: PCP Internal Medicine; Visit Provider Obstetrics & Gynecology
DX: L30.9 Dermatitis, unspecified (principal)
CPT/HCPCS: 99213

== ENCOUNTER → 2024-06-13 10:37 | Outpatient (BNVA) | payer OTHER, SELFPAY | PROVIDERS: PCP Internal Medicine; Visit Provider Obstetrics & Gynecology | DX: L30.9 Dermatitis, unspecified (principal) | CPT/HCPCS: 99212 ==

== ENCOUNTER 2024-08-20 09:54 | Outpatient (AMB) | payer OTHER, SELFPAY ==
[2024-08-20 10:10] VITALS: BP 122/62; PULSE 80; O2SAT 88; BMI 31.0
--- NOTE | 2024-08-20 10:10 | MHC.PC.OV ---
Vital Signs 08/20/24 10:10 Height 5 ft 5.5 in Weight 189 lb BMI 31.0 BP 122/62 Blood Pressure Location Lt brachial Position Sitting Pulse 80 Pulse Source Pulse Oximeter Pulse Oximetry (%) 88 L Oxygen Delivery Method Room Air Intake Visit Reasons: DM/Due for mammo Allergies aspirin [ASPIRIN] Allergy (Severe, Verified 08/20/24 10:11) GI bleed, stomach upset ibuprofen [IBUPROFEN] Allergy (Severe, Verified 08/20/24 10:11) GI Bleed, stomach upset valsartan [From Diovan] Allergy (Severe, Verified 08/20/24 10:11) hives ziprasidone [From Geodon] Allergy (Severe, Verified 08/20/24 10:11) RASH-PALPITATIONS azithromycin Allergy (Intermediate, Verified 08/20/24 10:11) facial swelling metformin [METFORMIN] Allergy (Intermediate, Verified 08/20/24 10:11) NAUSEA & VOMITING, GI upset cephalexin [From KEFLEX] Allergy (Unknown, Verified 08/20/24 10:11) can't remember lisinopril Allergy (Unknown, Verified 08/20/24 10:11) cough NSAIDS (Non-Steroidal Anti-Inflamma [NSAIDS (NON-STEROIDAL ANTI-INFLAMMA] Adverse Reaction (Severe, Verified 08/20/24 10:11) HX OF GI BLEED tramadol [Ultram] Adverse Reaction (Severe, Verified 08/20/24 10:11) GI upset sulfamethoxazole [From Bactrim] Adverse Reaction (Intermediate, Verified 08/20/24 10:11) Hives tiotropium [From Spiriva with HandiHaler] Adverse Reaction (Intermediate, Verified 08/20/24 10:11) Unknown trimethoprim [From Bactrim] Adverse Reaction (Intermediate, Verified 08/20/24 10:11) Hives doxycycline Adverse Reaction (Mild, Verified 08/20/24 10:11) Stomach Upset Tobacco use date assessed: 08/20/24 Fall risk assessment: No Falls in past year Last assessed Fall Risk: 08/20/24 Dental Screening Dental Screen Date: 08/20/24 Did you have a dental visit in the last 12 months?: Yes Did you have a dental problem in the last 6 months where you did not have access to dental care?: No Was dental information given to patient?: Patient has [facility] Medical History Acute exacerbation of chronic obstructive pulmonary disease (COPD) Dermatitis of vulva Uses wheelchair Wears dentures Supplemental oxygen dependent Slow to wake up after anesthesia Lumbar spinal stenosis Smoker Nicotine dependence, cigarettes, uncomplicated Acute respiratory failure with hypoxia Vulvar ulcer Recurrent major depression-severe Lower extremity pain Sialoadenitis Jaw pain العلي (dyspnea on exertion) Chest pain Osteopenia (~2015) Sinus tachycardia Pulmonary nodule Menopausal state Artificial menopause state Constipation Nocturnal hypoxemia COPD (chronic obstructive pulmonary disease) Spinal stenosis Depression Vitamin D deficiency Multinodular thyroid HLD (hyperlipidemia) T2DM (type 2 diabetes mellitus) (~2008) Surgical History History of cataract surgery S/P thyroid biopsy History of lithotripsy History of cardiac catheterization Hx of colonoscopy Hx of arthroscopy of left knee Hx of spinal fusion Hx of cholecystectomy Family History Father No problems noted. Mother Cancer Diabetes Social History Household Members: None Housing: Apartment Are you a primary rn progressive care to a significant other at home: No Do you presently have visiting nurse or other home services: Yes ([employer] 2-3 hours/day) Alcohol intake: never Comment: aware of trip hazard Patient Tobacco Use Status: Current everyday Tobacco user Smoking Start Date: 04/01/1964 Tobacco use type: Cigarette Cigarette Packs Per Day: 1 Cigarettes Per Day: 20 Years Smoked: 60 e-Cigarette/Vaping Use: Former Use Second Hand Smoke Exposure: No Advance Directives Date on File: 12/02/22 service: No Current occupational status: retired Sexual orientation: Straight/Heterosexual Cognitive needs: No Hearing needs: No Vision needs: Yes Female Reproductive History Menstrual Age of Menarche: 12 Questionnaire PHQ-9 Over the last 2 weeks, how often have you been bothered by any of the following problems? 1. Little interest or pleasure in doing things: not at all 2. Feeling down, depressed, or hopeless: not at all 3. Trouble falling or staying asleep, or sleeping too much: not at all 4. Feeling tired or having little energy: not at all 5. Poor appetite or overeating: not at all 6. Feeling bad about yourself - or that you are a failure or have let yourself or your family down: not at all 7. Trouble concentrating on things, such as reading the newspaper or watching television: not at all 8. Moving or speaking so slowly that other people could have noticed. Or the opposite - being so fidgety or restless that you have been moving around a lot more than usual: not at all 9. Thoughts that you would be better off or of hurting yourself in some way: not at all Total score: 0 Depression Screening Interpretation: Negative Depression Screening Done: Yes Source: Developed by Drs. Masoud Gomez, Desi Mabry, George Cates and colleagues, with an educational zoila from [employer]. Thrive Questionnaire Date Thrive assessed: 08/20/24 I am a: Patient What is your living situation today?: I have a steady place to live Within the past 12 months, did the food you bought not last and you didn't have the money to get more?: Never true Within the past 12 months, did you worry whether your food would run out before you got money to buy more?: Never true Do you have trouble paying for medicines?: No Do you have trouble getting transportation to medical appointments?: No Do you have trouble paying your heating and electricity bill?: No Do you have trouble taking care of your child, family member or friend?: No Do you have trouble with day-to-day activities such as bathing, preparing meals, shopping, managing finances, etc.?: No Are you currently unemployed and looking for a job?: No Are you interested in more education?: No Currently or been in a relationship where the following occur: No concerns reported THRIVE Score: 0 AUDIT C Alcohol Use Questionnaire (AUDIT-C) 1. How often do you have a drink containing alcohol?: Never 3. How often do you have six or more drinks on one occasion?: Never Total Score: 0 GABRIELE-7 AMB Questionnaire GABRIELE-7 Date GABRIELE - 7 assessed: 08/20/24 Feeling nervous, anxious, or on edge: 0 = Not at all Not being able to stop or control worryin = Not at all Worrying too much about different things: 0 = Not at all Trouble relaxin = Not at all Being so restless that it is hard to sit still: 0 = Not at all Becoming easily annoyed or irritable: 0 = Not at all Feeling afraid as if something awful might happen: 0 = Not at all Total GABRIELE-7 score (0-4 normal; 5-9 mild; 10-14 moderate; 15-21 severe): 0 Source: Developed by Drs. Masoud Gomez, Desi Mabry, George Cates and colleagues, with an educational zoila from [employer]. Physical exam (Primary Care) Vital Signs: Last Vital Signs Pulse 80 08/20/24 10:10 BP 122/62 08/20/24 10:10 Pulse Ox 88 L 08/20/24 10:10 Oxygen Delivery Method Room Air 08/20/24 10:10 BMI result Body Mass Index 31.0 Tobacco/Smoking Status: Tobacco use Status Tobacco use date assessed 08/20/24 08/20/24 10:13 Patient Tobacco Use Status Current everyday Tobacco 08/20/24 10:13 Tobacco use type Cigarette 08/20/24 10:13 e-Cigarette/Vaping Use Former Use 08/20/24 10:13 PHQ-9: PHQ-9 Score PHQ-9: Total score 0 08/20/24 10:36 Depression Screening Interpretation: Negative Thrive Assessment: Date of Thrive Assessment Date Thrive assessed 08/20/24 08/20/24 10:13 Currently or been in a relationship where the following occur: No concerns reported Const General: alert; No acute distress Eyes Conjunctivae: conjunctivae normal Resp Auscultation: clear to auscultation bilaterally Cardio Rate: regular rate Rhythm: regular rhythm GI Inspection: Yes normal to inspection Extrem General: Yes normal to inspection and No edema Results AMB Hemoglobin A1c AMB Hemoglobin A1c 7.3 % Last Edit by Kamini Brunner CMA on 08/20/24 10:37 Results Reviewed Results Reviewed: Laboratory Last Values Hgb A1c (Clinic) 7.3 % (4.0-6.0) H 08/20/24 10:13 Coding Level of Care Code Est Pt Level 4 (81900) Complex EM visit Add On G2211 Diagnoses Type 2 diabetes mellitus with hyperglycemia, with long-term current use of insulin E11.65; Z79.4 Diabetes mellitus residential 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 Hemoglobin A1c goal of less than 7.0. Patient is on Jardiance 25 mg once a day insulin NovoLog with Tresiba at 40 units once a day Victoza 1.8 mg once a week pioglitazone 15 mg once a day (2) Exercise hypoxemia: Comment: 6 minutes walk test on last visit showed that she did desaturate on room air and needed O2 2 L/minute for walking. She was provided with a portable unit , B-Cylinder , but she insisted on returning it as she does not want to uses cylinder. She wants to use Inogen unit. I told her that when she comes next time we will have to do 6 minutes walk again. Code(s): R09.02 - Hypoxemia Category: Medical Plan: Patient was advised oxygen to use but wants Inogen- she will ff up with Pulmonary (3) Hypothyroid: Code(s): E03.9 - Hypothyroidism, unspecified Category: Medical Qualifiers: Hypothyroidism type: due to Maulik's thyroiditis Qualified Code(s): E06.3 - Autoimmune thyroiditis Plan: Continue with thyroid medication patient is being followed up by Endocrinology (4) GERD (gastroesophageal reflux disease): Code(s): K21.9 - Gastro-esophageal reflux disease without esophagitis Category: Medical Qualifiers: Esophagitis presence: without esophagitis Qualified Code(s): K21.9 - Gastro-esophageal reflux disease without esophagitis Plan: Avoid the foods that causes that usually spicy foods, tomato products, juices, coffee, soda and foods that your sensitive to. After eating do not lie down, allow 3-4 hours before in lie down. And keep the head of bed above 30 degrees to avoid the acid from going up. (5) Smoker: Comment: Patient is a lifelong smoker. Has tried to quit smoking many times, but has not been able to quit complete. At present smoking 1 pack of cigarettes a day again. Code(s): F17.200 - Nicotine dependence, unspecified, uncomplicated Category: Social Hx Plan: Patient has repeated been told to stop smoking. (6) COPD (chronic obstructive pulmonary disease): Comment: Long-time chronic obstructive pulmonary disease, moderately severe,, controlled and stable. At present she has no active cough or wheezing. Code(s): J44.9 - Chronic obstructive pulmonary disease, unspecified Category: Medical Qualifiers: COPD type: emphysema Emphysema type: unspecified Qualified Code(s): J43.9 - Emphysema, unspecified Plan: Continue with the Advair and short-acting beta agonist. (7) HLD (hyperlipidemia): Code(s): E78.5 - Hyperlipidemia, unspecified Category: Medical Qualifiers: Hyperlipidemia type: unspecified Qualified Code(s): E78.5 - Hyperlipidemia, unspecified Plan: Avoid fried foods, chicken skin, eggs, butter margarine, pastries and meat. Be it pork or beef they have a lot of cholesterol on atorvastatin 40 mg once a day (8) Multinodular thyroid: Comment: (NTMNG) Code(s): E04.2 - Nontoxic multinodular goiter Category: Medical Plan: Yearly surveillance with ultrasound to be done in April this year. (9) Actinic keratosis: Comment: back upper Code(s): L57.0 - Actinic keratosis Category: Medical Plan: referral to dermatology Plan History of Present Illness The patient is a 73-year-old female presenting with follow-up for chronic conditions which include Type 2 Diabetes Mellitus, Chronic Obstructive Pulmonary Disease, and hypothyroidism, among others. Her Type 2 Diabetes Mellitus was last evaluated on May 10, where her Hemoglobin A1c was 7.1%, above her goal of less than 7%. LDL cholesterol was at an ideal level of 65. She is currently on Jardiance 25 mg daily, insulin Novolog, Trisiba 40 units daily, and Victoza 1.8 mg daily. Recently, her hemoglobin A1c has increased slightly to 7.3%. Her Chronic Obstructive Pulmonary Disease has been managed with Advair and short-acting beta-agonist (albuterol) inhalers. Discussions regarding the use of portable oxygen have taken place but she declined the portable unit. Although advised to quit smoking, she has not ceased this habit. Depression and hypothyroidism are ongoing issues with the latter being monitored with endocrinology since the discovery of a benign thyroid nodule via biopsy on April 25. An ultrasound is scheduled for April 2025. The patient recently had an episode of vulvar dermatitis diagnosed on June 13, treated with clobetasol twice daily for five days. Health Maintenance - Blood lipid panel: LDL cholesterol of 65. - Hemoglobin A1c: 7.3% (goal is less than 7.0). - Yearly surveillance of thyroid nodule with ultrasound scheduled for April 2025. - Current medication adherence for diabetes management includes Jardiance, Insulin Novolog, Trisiba, and Victoza. - Use of Advair and albuterol inhalers for COPD. - Discussion of smoking cessation for health improvement. - Annual gynecological examination with a previous diagnosis of vulvar dermatitis. Social History - Tobacco use: Currently smoking, attempting to cease smoking not yet successful. - Macular degeneration requiring regular eye doctor visits; upcoming appointment in September. - Difficulty with physical activities attributed to COPD and somatic complaints. - Manages routine house plumbing issues which are physically demanding due to chronic low back pain. - Lives independently but facing difficulties with daily activities due to health issues. Review of Systems - Respiratory: Reports frequent tiredness possibly related to poor oxygenation. - Genitourinary: Reports increased bathroom frequency, intermittent urination. - Psychiatric: Reports persistent tiredness and dissatisfaction with current sleep medication (Remeron). Physical Exam - Cardiovascular- Heart and lungs auscultation performed. - Dermatological- Noted skin changes under the bra, attributed to sun damage. - Respiratory- Confirmed use of albuterol regularly with oral rinsing post-use. Results - Laboratories: Blood count and electrolytes within normal limits on May 10. - Hemoglobin A1c: 7.3% - Thyroid nodule biopsy on April 25: Benign cytology. Plan Patient was informed and verbally consented to the use of an ambient scribe for clinic note documentation during this visit. 1. Hypothyroidism Continue thyroid surveillance. Follow-up with endocrinology and ultrasound scheduled for April 2025. 2. Dermatitis, unspecified L30.9 Treatment with clobetasol as completed. Will follow-up with gynecology if symptoms recur. 3. Chronic Obstructive Pulmonary Disease Continue with Advair and short-acting beta-agonist inhalers. Emphasized importance of smoking cessation as a primary intervention to aid management. 4. Thyroid Nodule Benign findings on FNA biopsy. Annual surveillance with ultrasound planned for April 2025. 5. Type 2 Diabetes Mellitus Continue with current regimen of Jardiance, Insulin Novolog, Trisiba, and Victoza. Monitor Hemoglobin A1c closer to goal of less than 7%. Discussion Notes During the visit, I discussed each major health issue with the patient. For her COPD, smoking cessation was emphasized, but the patient has declined the use of portable oxygen despite recommendations. We discussed and adjusted her diabetes management. The increase in Hemoglobin A1c was reviewed and we decided to maintain close observation on her diabetes regimen. With regard to her thyroid condition, she will continue on the current plan established by endocrinology with yearly ultrasounds. I advised her to maintain the medication schedule, especially her inhalers for COPD, and continue her eye care routine for macular degeneration. No new prescriptions were deemed necessary today, but we addressed other concerns, including dermatological and gastrointestinal issues. Patient Instructions - Continue prescribed medications for diabetes, COPD, and other ongoing conditions. - Follow up with endocrinology for thyroid surveillance and adhere to the planned schedule for thyroid ultrasound in April 2025. - Implement smoking cessation strategies discussed and reduce tobacco use for better COPD management. - Maintain follow-up with gynecology and dermatology for vulvar dermatitis and skin changes. - Regular visits to the eye doctor for macular degeneration, with the next appointment in September. - Ensure attendance of all scheduled follow-up appointments and screenings. - Employ proper inhalation techniques and ensure mouth rinsing post-inhaler use to prevent adverse effects. Orders: Orders AMB Hemoglobin A1c Today Z13.9 - Encounter for screening, unspecified Referrals Dermatology Referral L57.0 - Actinic keratosis
--- OUTSIDE RECORDS SUMMARY | 2024-08-20 10:57 | XMS_ITS | Clinical Summary ---
Author Organization [facility] Address [address] [place] [address] Care Team Providers Care Terrazzo Tile Maker Name Role Phone Chiquis Grajeda MD Primary Care Provider [phone] Allergies Active Allergy Reactions Criticality Noted Date Comments Aspirin GI Intolerance/Nausea/Vomiting Low 07/20 Azithromycin Swelling Medium 07/20/2023 Ziprasidone Rash/Dermatitis Low 07/20/2023 Ibuprofen GI Intolerance/Nausea/Vomiting Low 07/20 Cephalexin Unknown/Patient and Family Unable to Define Medium 07/20/2023 Lisinopril Cough Low 07/20/2023 Metformin GI Intolerance/Nausea/Vomiting Low 07/20 Tramadol GI Intolerance/Nausea/Vomiting Low 07/20 Valsartan Hives Medium 07/20/2023 Medications Medication Sig Dispensed Refills Start Date End Date Status ARIPiprazole (ABILIFY) 20 MG tablet Take 1 tablet (20 mg total) by mouth every morning. Active atorvastatin (LIPITOR) 40 MG tablet Take 1 tablet (40 mg total) by mouth daily. Active Vitamin D3 (CHOLECALCIFEROL) 50 MCG (2000 UT) tablet Take 1 tablet (2,000 Units total) by mouth nightly. Active clonazePAM (KlonoPIN) 0.5 MG tablet Take 1 tablet (0.5 mg total) by mouth 2 (two) times a day as needed for anxiety. Active cyanocobalamin (VITAMIN B-12) 500 MCG tablet Take 1 tablet (500 mcg total) by mouth daily. Active docusate sodium (COLACE) 100 MG capsule Take 1 capsule (100 mg total) by mouth 2 (two) times a day. Active empagliflozin (Jardiance) 25 MG tablet Take 1 tablet (25 mg total) by mouth daily. Active esomeprazole (NexIUM) 40 MG capsule Take 1 capsule (40 mg total) by mouth every morning before breakfast. at 6:30am Active fenofibrate (TRIGLIDE) 160 MG tablet Take 1 tablet (160 mg total) by mouth daily. Active fexofenadine (RYAN) 180 MG tablet Take 1 tablet (180 mg total) by mouth daily. Administer with water only; do not administer with fruit juices. Active gabapentin (NEURONTIN) 600 MG tablet Take 1 tablet (600 mg total) by mouth 3 (three) times a day. Active insulin degludec (TRESIBA FLEXTOUCH) 100 UNIT/ML prefilled pen injection Inject 40 Units under the skin daily. Active levothyroxine (SYNTHROID, LEVOTHROID) 25 MCG tablet Take 1 tablet (25 mcg total) by mouth daily on an empty stomach. at 6:00am Active liraglutide (VICTOZA) 18 MG/3ML prefilled pen injection Inject 1.8 mg under the skin daily. Active melatonin 3 MG Tab tablet Take 3 tablets (9 mg total) by mouth nightly. Active Netarsudil-Latanopro st (Rocklatan) 0.02-0.005 % Solution Administer 1 drop to both eyes nightly. Active pioglitazone (ACTOS) 15 MG tablet Take 1 tablet (15 mg total) by mouth daily. Active QUEtiapine (SEROquel) 25 MG tablet Take 2 tablets (50 mg total) by mouth nightly. Active QUEtiapine (SEROquel) 50 MG tablet Take 1 tablet (50 mg total) by mouth 2 (two) times a day as needed (agitation). Active senna (SENOKOT) 8.6 MG Tab tablet Take 2 tablets by mouth nightly. Active brimonidine (ALPHAGAN P) 0.1 % Solution Administer 1 drop to both eyes 2 times a day. Active nicotine (NICODERM CQ) 21 MG/24HR patchIndications:Felton otine dependence, uncomplicated, unspecified nicotine product type Place 1 patch on the skin daily. 30 patch 07/27/2023 Active senna-docusate (SENNA-S) 8.6-50 MGIndications:Spinal stenosis of lumbar region, unspecified whether neurogenic claudication present Take 2 tablets by mouth nightly. 60 tablet 07/27/2023 Active tiZANidine (ZANAFLEX) 4 MG tabletIndications:Sp inal stenosis of lumbar region, unspecified whether neurogenic claudication present Take 1 tablet (4 mg total) by mouth every 8 (eight) hours around the clock. 90 tablet 07/27/2023 Active oxyCODONE (ROXICODONE) 5 MG immediate release tabletIndications:Sp inal stenosis of lumbar region, unspecified whether neurogenic claudication present Take 1 tablet (5 mg total) by mouth every 4 (four) hours as needed for moderate pain. Max Daily Amount: 30 mg 24 tablet 07/27/2023 Active Active Problems Problem Noted Date Diagnosed Date Intractable back pain 07/21/2023 Spinal stenosis of lumbar region 07/21/2023 Type 2 diabetes mellitus wit h diabetic neuropathy, with long-term current use of insulin 07/21/2023 Hyperlipidemia 07/21/2023 Hypothyroid 07/21/2023 Social History Tobacco Use Types Packs/Day Years Used Date Smoking Tobacco: Never Assessed Tobacco Cessation:Counseling Given: Not Answered AUDIT-C Answer Date Recorded Q1: How often do you have a drink containing alcohol? Never 07/21/2023 Q2: How many drinks containi ng alcohol do you have on a typical day when you are drinking? Patient does not drink Q3: How often do you have si x or more drinks on one occasion? Never 07/21/2023 PHQ-2 Answer Date Recorded PHQ-2 Total Score 0 07/21/2023 Sex and Gender Information Value Date Recorded Sex Assigned at Female 07/21/2023 12:31 AM EST Gender Identity Female 07/21/2023 12:31 AM EST Sexual Orientation Heterosexual (straight) 07/21 12:31 AM EST Last Filed Vital Signs Vital Sign Reading Time Taken Comments Blood Pressure 101/56 07/27/2023 8:00 AM EST Pulse 56 07/27/2023 8:00 AM EST Temperature 36.8 ??C (98.3 ??F) 07/27/2023 8:00 AM ES T Respiratory Rate 18 07/27/2023 8:00 AM EST Oxygen Saturation 94% 07/27/2023 8:00 AM EST Inhaled Oxygen Concentration - - Weight 87 kg (191 lb 12.8 oz) 07/21/2023 4:05 PM EST Height 165.1 cm (5' 5 ) 07/21/2023 4:05 PM EST Body Mass Index 31.92 07/21/2023 4:05 PM EST Plan of Treatment Health Maintenance Due Date Last Done Comments Hepatitis C Virus Screening 1950 Foot Exam 1960 Lipid Panel 1960 Ophthalmology Exam 1960 Microalbumin/Creatinine Ratio Urine 1968 DTaP/Tdap/Td Vaccines (1 - Tdap) 1969 Pneumococcal Vaccines 50+ (1 of 2 - PCV) 1969 Mammogram 1990 Colonoscopy 10/21/1995 Zoster (Shingles) Vaccine (1 of 2) 2000 RSV Vaccine 60 years and older and Patients (1 - Risk 60-74 years 1-dose series) 2010 DXA Bone Density (Females,Ages 65 and older) 10/21/2015 Hemoglobin A1C 01/19/2024 07/21/2023 Influenza Vaccine 01/26/2024 COVID-19 Vaccine ( - season) 2024 Creatinine with GFR 07/25/2024 07/25/2023, 07/24/2023, 07/23/2023, Additional history exists Hepatitis B Vaccines Aged Out No long er eligible based on patient's age to complete this topic Procedures Procedure Name Priority Date/Time Associated Diagnosis Comments COMPREHENSIVE METABOLIC PANEL Routine 07/25/2023 6:49 AM EST HEMOGLOBIN A1C WITH ESTIMATED AVERAGE GLUCOSE STAT 07/21/2023 1:11 AM EST from Last 3 Months or Most Recently Relevant to Health Maintenance Results * (ABNORMAL) Comprehensive Metabolic Panel (Daily x 2 days) (07/25/2023 6:49 AM EST) Glucose 115(H) 65 - 99 mg/dL 07/25/2023 8:26 AM EST [facility] Comment:Fasting: <100 mg/dL, Non-Fasting: <200 mg/dL (ADA 2005) Blood Urea Nitrogen (BUN) 12 8 - 21 mg/dL 07/25/2023 8:26 AM EST [facility] Creatinine 0.6 0.4 - 1.1 mg/dL 07/25/2023 8:26 AM [facility] eGFR >90 >59 07/25/2023 8:26 AM [facility] Comment:CKD-EPI (2020) in mL /min/1.73 sq meters. Sodium 142 136 - 145 mmol/L 07/25/2023 8:26 AM [facility] Potassium 4.0 3.4 - 5.3 mmol/L 07/25/2023 8:26 AM [facility] Chloride 103 98 - 107 mmol/L 07/25/2023 8:26 AM [facility] CO2 25 22 - 33 mmol/L 07/25/2023 8:26 AM [facility] Calcium 9.3 8.7 - 10.5 mg/dL 07/25/2023 8:26 AM [facility] Alkaline Phosphatase 62 32 - 122 U/L 07/25/2023 8:26 AM [facility] Aspartate Aminotrans (AST) 57(H) 10 - 50 U/L 07/25/2023 8:26 AM [facility] Alanine Aminotrans (ALT) 36 10 - 50 U/L 07/25/2023 8:26 AM [facility] Bilirubin, Total 0.6 0.2 - 1.0 mg/dL 07/25/2023 8:26 AM [facility] Protein, Total 5.8(L) 6.3 - 8.3 g/dL 07/25/2023 8:26 AM [facility] Albumin 3.4 3.4 - 4.8 g/dL 07/25/2023 8:26 AM [facility] BUN/Creatinine Ratio 20 10.0 - 25.0 Ratio 07/25/2023 8:26 AM [facility] Globulin 2.4 1.5 - 3.9 g/dL 07/25/2023 8:26 AM [facility] Albumin/Globulin Ratio 1.4 1.0 - 3.0 Ratio 07/25/2023 8:26 AM [facility] Anion Gap 14 7 - 17 07/25/2023 8:26 AM [facility] Blood specimen (specimen) (Plasma/Serum) 07/25/2023 6:49 AM EST 07/25/2023 6:56 AM EST Mary Mason DO LAB BLOOD ORDERABLES [address] [address], [address] [address] * (ABNORMAL) HEMOGLOBIN A1C WITH ESTIMATED AVERAGE GLUCOSE (07/21/2023 1:11 AM EST) Hemoglobin A1C 7.0(H) <5.7 % 07/21/2023 1:42 PM EST [facility] Comment: A1c% ? Interpretation 5.7 - 6.0 ?Increase risk of diabetes 6.1 - 6.4 ?Higher risk of diabetes > or = 6.5 ?? Consistent with diabetes Diabetes Care, 33(Supp 1):S1-S61, 2010 Estimated Average Glucose 154 mg/dL 07/21/2023 1:42 PM [facility] Blood specimen / Unknown 07/21/2023 1:11 AM EST 07/21/2023 1:59 AM EST Bernie Tony DO LAB BLOOD ORDERABL ES Performing Organization Address City/[facility]/ZIP Co de Phone Number [facility] [address] [place] [address], [address] [id number] from Last 3 Months or Most Recently Relevant to Health Maintenance Advance Directives * DNR (Latest Code Status on File) Date Activated Date Inactivated Comments 07/21/2023 5:56 PM DNR/ DNI Question Answer Comments Decision thoroughly discussed with: Patient * Full Code Date Activated Date Inactivated Comments 07/21/2023 6:54 AM 07/21/2023 5:56 PM Care Teams Terrazzo Tile Maker Relationship Specialty Start Date End Date Taras, Chiquis Sanchez MD [address] [place] [address] [place] [address] PCP - General Internal Medicine 07/21/23
--- OUTSIDE RECORDS SUMMARY | 2024-08-20 10:57 | XMS_ITS | Data Portability ---
Author Organization [facility], [facility] - [facility] Address [address] [place] [id number] Care Team Providers Care Hydraulic Assembler Name Role Phone SRIKALA Primary Care Provider Assessment Encounter Date Assessment Date Assessment LastModified by Organization Details LastModified Time 01/25/2022 01/25/2022 I have reviewed and agree with the assessment and plan as documented by the motel front desk clerk. I provided real-time medical direction for this [...] Assessment and Plan as documented by the Insurance Claim Auditor. Patient given the opportunity to ask questions. Advised if develops CP/severe SOB/turning blue/uncontrolle d n/v/d or black/bloody emesis or stool/ AMS/ syncope/ hi fever to call 911- verbalized understanding of instructions [email or web address] Not available 02/23/2023 11:45:02 Plan of Treatment Reminders Order Date Submit Date Provider Last Modified By Organization Details Last Modified Time Details Appointments None recorded. Lab rapid SARS CoV 2 Ag, QL IA, respiratory specimen [email or web address] [facility], [address] [place] [address], [phone], 11:00:43 rapid flu (A+B) 2022 023 [email or web address] 0 [facility], [address] [place] [address], [phone], 3 11:00:43 BMP, serum or plasma 2022 023 [email or web address] 0 [facility], [address] [place] [address], [phone], 13:32:46 Referral None recorded. Procedures None recorded. Surgeries None recorded. Imaging None recorded. Medication Orders prednisone 20 mg tablet 2022 023 [id number], [address] [place], [address], 11:44:47 prednisone 20 mg tablet 2022 023 [email or web address] 0 [facility] #[id number], [address] [place], [address], 3 11:44:43 molnupiravi r 200 mg capsule (EUA) 2022 023 [id number] [address] [place], [address], 3 11:44:46 Anbesol (benzocaine ) 10 % oral mucosal liquid 2021 022 [id number] [address] [place], [address], 20:01:49 Patient TargetsNo targets recorded. Patient InstructionsNo instructions recorded. Reason for Referral None Reported. Results Created Date Observation Date Name Description Value Unit Range Abnormal Flag Note LastModifiedBy Organization Detail LastModifiedTime 02/24/2002/23/2023 BMP, serum or plasm a BUN 8 Not Available [facility] [address] [place], [address], 02/23/2023 11:45:10 02/24/20 23 02/23/2023 BMP, serum or plasm a Ca Ionize d calciu m 1.18 Not Available [facility] [address] [place] [address], [phone], 02/23/2023 11:45:10 02/24/20 23 02/23/2023 BMP, serum or plasm a CI- 98 Not Available [facility] [address], [phone], 02/23/2023 11:45:10 02/24/20 23 02/23/2023 BMP, serum or plasm a CRE 0.7 Not Available [facility] [address], [phone], 02/23/2023 11:45:10 02/24/20 23 02/23/2023 BMP, serum or plasm a GLU 187 after OJ Not Available [facility] [address] [place] [address], [phone], 02/23/2023 11:45:10 02/24/20 23 02/23/2023 BMP, serum or plasm a K+ 3.8 Not Available [facility] [address], [address], 02/23/2023 11:45:10 02/24/20 23 02/23/2023 BMP, serum or plasm a Na+ 143 Not Available [facility] [address], [address], 02/23/2023 11:45:10 02/24/20 23 02/23/2023 BMP, serum or plasm a tCO2 25 Not Available [facility] [address], [phone], 02/23/2023 11:45:10 02/24/20 23 02/23/2023 rapid flu (A+B) Flu negati ve Not Available [facility] [address] [place] [address], [phone], 02/23/2023 10:58:20 0802/23/2023 rapid SARS CoV 2 Ag, QL IA, respi rator y speci men rapid SARS CoV 2 Ag, QL IA, respiratory specimen positi ve Not Available [facility] [address] [place] [address], [phone], 02/23/2023 10:58:11 Result Notes None recorded. Medical Equipment None Reported. Allergies Allergen ID Allergen Name Allergen Category Reaction Reaction Severity Criticality Documentation Date Start Date Code Code System Note Provider Name and Address Organization Details Recorded Time 3135 ibuprofen medicatio n Not available Not available Not available 02/23/2023 5640 RxNorm Not true aller gy has a histo ry of pud Sally Blancas MD [address] [place] [address],[address], [place], [address], [employer] 3 10:59:29 3136 aspirin medicatio n Not available Not available Not available 02/23/2023 1191 RxNorm Sally Blancas MD [address] [place] [address],[address], [place], [address], [employer], [employer] 3 10:59:35 3137 Ultram medicatio n Not available Not available Not available 02/23/2023 87817 6 RxNorm Sally Blancas MD [address] [place] [address],[address], [place], [address], [employer], [employer] 3 10:59:42 3138 Geodon medicatio n Not available Not available Not available 02/23/2023 41913 4 RxNorm Sally Blancas MD [address] [place] [address],[address], [place], [phone], [employer], [employer] 3 10:59:47 Medications Name Sig Start Date [...] and Address Organization Details Last Updated DateTime 2 98 % 98 % 76 /min 97.9 [...] Diagnosis/Indication Diagnosis SNOMED-CT Code Diagnosis ICD10 Code Diagnosis Note 3084 Maryam Acevedo MD [facility] [address] [place] [phone] 01/25/2022 19:51:49 03/03/2022 12:49:36 Aphthous ulcer of mouth 318128681 K12.0 [address] Sally Blancas MD [facility] [address] [place] [phone] 02/23/2023 10:50:46 02/23/2023 23:49:31 Acute exacerbation of chronic obstructive pulmonary disease [id number] J44.1 Offered patient nebulizer she declines. She does have a nebulizer at home/ [facility] meds at [facility] but will not use because she states they make her choke and she will not use them-she has not been using her brand-new albuterol MDI it has 200 inhalation s and it verified by medic. Advised 2 puffs every 4 hours while sick-advis ed need for close follow-up with her pulmonolog ist whom she saw Tuesday(cortney or to symptom onset) and her PCP COVID-19 [id number] U07.1 Reviewed meds with the patient and the medic, due to being diabetic and COPD here she is at risk for severe COVID but she is on multiple medication s that could interact w/ Paxlovid including her quetiapine / atorvastat in and her clonazepam (and the psych meds cannot be withheld in my opinion) thus Paxlovid is not a good choice and I have prescribed molnupirav irI advised her of the need to rest/ hydrate/qu arantine for at least 5 days will need repeat test 5 days from onset of symptoms- can call for repeat visit if needs-[facility] reviewed red flags- pat states prednisone helps cough in past Health Concerns Section Related Observation LastModified by Organization Detai ls LastModified Time None Recorded Concern Status LastModified by Organization Details LastModified Time None Recorded Advance Directives Directive None Recorded Payers Encounter Date Sequence Insurance Name Policy Number Policy Kingsley Covered Member ID Kingsley Member ID Guarantor Name 01/25/2022 1 [facility] - DOS PRIOR TO 2022 - DUAL ELIGIBLE (MEDICARE REPLACEMENT/ADV ANTAGE - HMO) Sofiya Rivas [id number] Sofiya Rivas 02/23/2023 1 [facility] - DOS ON OR AFTER 2022 - DUAL ELIGIBLE - NURSING HOME OPTIONS AND ONE CARE (MEDICARE REPLACEMENT/ADV ANTAGE - HMO) Sofiya Rivas [id number] Sofiya Rivas Notes Date Note Type Note [...] Protocol-Based Disposition: Consider [facility] Rosales Community clinician, MD/TISSUE INSERTER triage, PCP, or Urgent Care Visit within 4 Hours .................. .................. .................. .................. .................. .................. .................. ............... CRC Nursing Assessment: Comments: CRC Rn did not need further info to process visit Maryam Acevedo MD [address] [facility],[address], [place], [address], DNS:Net 01/25/2022 20:01:58 02/23/2023 text/html CRC Nursing Assessment: [...] .................. .................. .................. .................. .................. .................. ............... Insurance Claim Auditor Note From Carlos Stuart: Per CRC: Member [...] is positive. Flu a/b negative, following called [facility] with report. P: [facility] [place] Blancas was called and given report, Care plan for today to give pt 40mg of Prednisone PO and Dr. Blancas will call in to pts Pharmacy Prednisone and antibiotic. Dr. Blancas also ordered pt to take her own albuterol MDI 2 puffs every 4 hrs and Advair 2 puffs 2 times a day which pt has prescribed to her and to make follow up with PCP tomorrow. Red flags discussed [facility] clear. [facility] Lab Orders: rapid SARS CoV 2 Ag, QL IA, respiratory specimen: Performed rapid flu (A+B): Performed BMP, serum or plasma: Performed [facility] Medication Orders: prednisone 20 mg tablet: Administered .................. .................. .................. .................. .................. .................. .................. ............... Disposition: Fulfilled Sally Blancas MD [address] [facility],[address], [place], [address], RUBI - ELIESER, VANIA 02/23/2023 13:35:59 OBGyn Episode No OBEpisode recorded.
--- OUTSIDE RECORDS SUMMARY | 2024-08-20 10:57 | XMS_ITS | Data Portability ---
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 Primary Care Provider Assessment Encounter Date Assessment Date Assessment LastModified by Organization Details LastModified Time 09/01/2021 09/01/2021 Overview/History : 70 YO F new to and to provider She is c/o of back pain today Started last Tue (~7 days ago), feels like it is somewhat worse than her usual back pain as she has hx of this She reports that she was lifting some heavy boxes a little before the onset but this was 3 weeks ago She has been using a heating pad to help as well as taking Tylenol not much relief with the above modalities She denies any falls or trauma to the area She denies any fever/chills, numbness/tinglin g, N/V/D, weakness, denies loss of urine/stool, denies saddle anesthesia She reports no other assoc sx's Exam: Vitals: Mild tachycardia at 101 bpm, she is in bit of pain, mild HTN, also in bit of pain, other VSS and afebrile Constitutional: 70 yo Well developed, well nourished, pleasant patient in no apparent distress. She is laying comfortably in her recliner and she is nontoxic appearing Eyes: No swelling, no discharge, sclera / conjunctiva clear ENT: no nasal discharge, no erythema/ exudate noted in oropharynx, moist mucous membranes CV: Normal HR, reg rhythm, no rubs/ murmurs/ gallops heard, 2+ radial pulses bilaterally, no edema and no calf tenderness BL, 2+ DP/ PT pulses bilaterally Pulm: Speaks in full sentences, no increased work of breathing. : No CVA tenderness bilaterally. MS: she is able to stand up our of her chair and stand on her two feet steadily w/o much difficulty, moves all limbs without deficit, no evidence of trauma. equal strength BL to lower extremities at 5/5 grade. Back is nontender to palpation throughout. No s/s of injury. She does have old well healed scar to the lumbar spine. Paraspinal muscles are somewhat tender to the lumbar spine and feel a little tight. Neuro: No focal deficits, babinski reflex is intact and symmetrical BL, she has equal BL strength, straight leg raise does illicit some pain BL. Skin: No rash. No cyanosis or pallor. Psych: Calm, cooperative, non-manic. Very pleasant. DDx considered, but not limited to: Back Spasm - ML symptom as muscles tight around lumbar spine, lifting objects recently, no falls/sig trauma, pain seems mild-mod. No spinal column tenderness Lumbar Fracture - unlikely, no fall, no sig trauma, no spinal tenderness. Unlikely Pyelo - no CVA tenderness, no fever, no urinary sx's, no N/V/D very unlikely Cauda Equina - very unlikely, no lower extremity weakness or sx's, no bowel bladder c/o, no red flag signs Slipped Hardware - has adrware in the spine from prev surgery, ? if slipped, unlikely as pain mild but XR pend to fully eval Work up/Results: Lumbar XR pend Plan/Discussion: Lumbar Spasm: -ML cause of sx's given exam findings and hx -No red flag sx's -She has relatively benign exam and appears comfortable for the most part, she reports she is able to get around okay but would like something to help w/ her pain -She has taken muscle relaxers in the past and she reports not many s/e (flexeril and baclofen) -She is allergic to NSAIDS an Tylenol not very effective. She is using heating pad w/ mod effectiveness -States lidocaine patches w/ no effectiveness -Shared decision to prescribe low dose muscle relaxer (flexeril 5 mg PRN) to help w/ pain since I do suspect spasms -Discussed s/e and to stop if any lethargy, lightheadedness/ dizziness etc. to avoid risk of falls, she verbalizes understanding -F/u emergetly for any numbness/tinglin g, weakness, seveer pain, falls -F/u with PCP for routine management Pt is on agreement and verbalizes understanding with the above plans at this time. Pt has no other questions or concerns at this time. All questiosn are answered to the best of my ability. Pt thanks us for our visit today. In order to obtain further information and compare any laboratory results/values, I have accessed patient records on the [employer]. This information was pertinent in my medical decision making today. [email or web address] Not available 09/01/2021 10:13:04 Plan of Treatment Reminders Order Date Submit Date Provider Last Modified By Organization Details Last Modified Time Details Appointments None recorded. Lab None recorded. Referral None recorded. Procedures None recorded. Surgeries None recorded. Imaging XR, lumbosacral spine, 2 or 3 view - hx of back surgeries. w/ some lower back pain. r/o frx and eval hardware. 2021 022 [facility] ([facility]), [address], [place], [address], 15:52:40 Medication Orders cyclobenzap rine 5 mg tablet 2021 022 [id number], [address] , [place], [address], 10:12:39 Patient TargetsNo targets recorded. Patient InstructionsNo instructions recorded. Reason for Referral None Reported. Results Created Date Observation Date Name Description Value Unit Range Abnormal Flag Note LastModifiedBy Organization Detail LastModifiedTime 09/02/1909/01/2021 lumba r spine AP and lat LUMBAR SPINE AP and LAT FINDIN GS: No acute loss of verteb ral body height of signif icance . The osseou s struct ures appear intact . Interv ertebr al disc spaces are narrow ed. Soft tissue s are unrema rkable . Mild facet hypert rophic change s. Postop erativ e change s. CONCLU DORA: No acute fractu re. Degene rative interv ertebr al disc space narrow ing. ELECTR ONICAL LY SIGNED BY BK BECKHAM M.D. 09/02/19 22 3:45:5 0 PM EST. LUMBAR SPINE AP and LAT Result s: No acute loss of verteb ral body height of signif icance . The osseou s struct ures appear intact . Interv ertebr al disc spaces are narrow ed. Soft tissue s are unrema rkable . Mild facet hypert rophic change s. Postop erativ e change s. Conclu dora: No acute fractu re. Degene rative interv ertebr al disc space narrow ing. Electr onical ly signed by BK BECKHAM M.D. 09/02/19 3:45:5 0 PM EST. [email or web address] [employer] [address], [address], 09/02/2021 18:24:55 Result Notes None recorded. Procedures Surgical History Date Name Laterality Status Provider Name and Address Organization Details Recorded Time Cholecystectomy completed JAQUAN Mayer [address] [place], [address], [place] [facility] 09/01/2021 09:06:46 Appendectomy completed JAQUAN Montgomrey [address] [place], [address], [place] [facility] 09/01/2021 09:06:50 Tonsillectomy completed JAQUAN Montgomery [address] [place], [address], [place] [facility] 09/01/2021 09:06:55 Back Surgery completed JAQUAN Montgomery [address] [place], [address], [place] [facility] 09/01/2021 09:07:05 Imaging Results Imaging Date Name Status LastModified by Organiz ation Details LastModified Time 09/01/2021 lumbar spine AP and lat completed [email or web address] [facility] [address], [address], 09/02/2021 18:24:55 Procedure Notes None recorded. Medical Equipment None Reported. Allergies Allergen ID Allergen Name Allergen Category Reaction Reaction Severity Criticality Documentation Date Start Date Code Code System Note Provider Name and Address Organization Details Recorded Time 879199 ibuprofen medicatio n Not available Not available Not available 09/01/2021 5640 [facility] Jon[place] [address], [place], [address], [place] [facility] 2 08:57:33 309051 aspirin medicatio n Not available Not available Not available 09/01/2021 1191 [facility] [place], [place] [address], [place], [address], [place] [facility] 2 08:57:42 778291 Ultram medicatio n Not available Not available Not available 09/01/2021 62743 6 [facility] Jonn er [place] [address], [place], [address], [place] [facility] 2 08:57:49 066811 Geodon medicatio n Not available Not available Not available 09/01/2021 00491 4 [facility] Jonn er [place], [place] [address], [place], [address], [place] [facility] 2 08:57:55 Medications Name Sig Start Date Stop Date Status Note LastModified by Organization Details LastModified Time melatonin tab ex str 09/01 completed Not Available Not Available Not Available quetiapine 25 mg tablet 09/01 completed Not Available Not Available Not Available cyclobenzap rine 10 mg tablet TAKE 1 TABLET BY MOUTH THREE TIMES A DAY 09/01 completed Not Available Not Available Not Available pioglitazon e 15 mg tablet active Not Available Not Available Not Available atorvastati n 40 mg tablet active Not Available Not Available Not Available prednisone 10 mg tablet TAKE 4 TABLETS BY MOUTH DAILY X3 DAYS THEN 3 TABS X3 DAYS THEN 2 TABS X3 DAYS THEN 1 TAB X3 DAYS 09/01 completed Not Available Not Available Not Available gabapentin 600 mg tablet active Not Available Not Available Not Available ipratropium 0.5 mg-albutero l 3 mg (2.5 mg base)/3 mL nebulizatio n soln INHALE 1 VIAL VIA NEB BY MOUTH EVERY 6- 8 HOURS NEEDED FOR WHEEZING active Not Available Not Available No t Available senna 8.6 mg tablet active Not Available Not Available No t Available FreeStyle Lancets 28 gauge USE 4 TIMES A DAY active Not Available Not Available No t Available prednisone 20 mg tablet 09/01 completed Not Available Not Available Not Available clonazepam 0.5 mg tablet active Not Available Not Available Not Available levothyroxi ne 25 mcg tablet active Not Available Not Available Not Available baclofen 20 mg tablet 09/01 completed Not Available Not Available Not Available benzonatate 100 mg capsule TAKE 1 CAPSULE BY MOUTH THREE TIMES A DAY 09/01 completed Not Available Not Available Not Available trazodone 150 mg tablet 09/01 completed Not Available Not Available Not Available esomeprazol e magnesium 40 mg capsule,del ayed release TAKE 1 CAPSULE BY MOUTH ONCE DAILY active Not Available Not Available No t Available Gentle Laxative (bisacodyl) 5 mg tablet,jerrell yed release TAKE 2 TABLETS BY MOUTH DAILY AT BEDTIME NEEDED FOR CONSTIPAT ION active Not Available Not Available No t Available trazodone 300 mg tablet 09/01 completed Not Available Not Available Not Available betamethaso ne dipropionat e 0.05 % topical cream 09/01 completed Not Available Not Available Not Available docusate sodium 100 mg capsule active Not Available Not Available N ot Available morphine 15 mg immediate release tablet TAKE 1 TABLET BY MOUTH EVERY 8 HOURS NEEDED FOR PAIN 09/01 completed Not Available Not Available Not Available ondansetron 4 mg disintegrat ing tablet 09/01 completed Not Available Not Available Not Available doxycycline hyclate 100 mg tablet TAKE 1 TABLET BY MOUTH TWICE A DAY 09/01 completed Not Available Not Available Not Available aripiprazol e 15 mg tablet active Not Available Not Available Not Available Novolog FlexPen U-100 Insulin aspart 100 unit/mL (3 mL) subcutaneou s active Not Available Not Available Not Available cyclobenzap rine 5 mg tablet TAKE 1 TABLET BY MOUTH THREE TIMES A DAY NEEDED FOR 7 DAYS active Not Available Not Available No t Available mirtazapine 7.5 mg tablet 09/01 completed Not Available Not Available Not Available duloxetine 60 mg capsule,del ayed release active Not Available Not Available Not Available fenofibrate 160 mg tablet TAKE 1 TABLET BY MOUTH ONCE DAILY active Not Available Not Available No t Available Alphagan P 0.1 % eye drops active Not Available Not Available Not Available Advair HFA 115 mcg-21 mcg/actuati on aerosol inhaler 09/01 completed Not Available Not Available Not Available Advair HFA 230 mcg-21 mcg/actuati on aerosol inhaler active Not Available Not Available Not Available FreeStyle Lite Strips USE TO TEST 3 TIMES DAILY active Not Available Not Available No t Available levocetiriz ine 5 mg tablet active Not Available Not Available Not Available melatonin 5 mg tablet active Not Available Not Available No t Available cholecalcif jenny (vitamin D3) 50 mcg (2,000 unit) capsule active Not Available Not Available Not Available Unifine Pentips 32 gauge x 5/32 needle active Not Available Not Available Not Available Victoza 3-Jeanmarie 0.6 mg/0.1 mL (18 mg/3 mL) subcutaneou s pen injector active Not Available Not Available Not Available Jardiance 25 mg tablet active Not Available Not Available Not Available Belsomra 10 mg tablet active Not Available Not Available No t Available Tresiba FlexTouch U-100 insulin 100 unit/mL (3 mL) subcutaneou s pen active Not Available Not Available Not Available Trelegy Ellipta 100 mcg-62.5 mcg-25 mcg powder for inhalation active Not Available Not Available N ot Available Vitals Date Recorded Oxygen saturation Oxygen saturation in Arterial blood by Pulse oximetry Heart rate Respiratory rate Body temperature Systolic blood pressure Diastolic blood pressure Provider Name and Address Organization Details Last Updated DateTime 2 95 % 95 % 101 /min 20 /min 97.8 [degF] 152 mm[Hg] 76 mm[Hg] Not Available [facility] 2 09:00:51 Social History Question Answer Notes LastModified by Organizat ion Details LastModified Time Tobacco Smoking Status Current Every Day Smoker JAQUAN Montgomery [address], [place], [address], [place] [facility] 09/01/2021 09:06:31 What Is Your Level Of Alcohol Consumption? None Information not available 09/01/2021 Do You Use Any Illicit Or Recreational Drugs? No Information not available 09/01/2021 Do You Or Have You Ever Used Any Other Forms Of Tobacco Or Nicotine? No Information not available 09/01/2021 Sex: Unknown Functional Status None recorded. Mental Status None recorded. Family History Relationship Description Onset Age of this Age Resolved Age Notes LastModified by Organization Details LastModified Time Brother Heart disease crumplik Not available 2021 09:05:34 Mother Carcinoma of lung crumplik Not available 2021 09:06:13 Sister Carcinoma of lung crumplik Not available 2021 09:06:17 Medical History Condition Response Diabetes Y Coronary Artery Disease N CHF N Parkinson's Disease N Cancer N Dementia N Stroke N Depression N Asthma N COPD N Hypothyroidism Y High Cholesterol Y Rheumatoid Arthritis N Pulmonary Embolism N Hypertension N A-fib N Osteoporosis N Kidney Disease N Gynecological HistoryNo gynecological history recorded. Obstetrics History GPAL:G 0 P 0 0 0 0 Past Encounters Encounter ID Performer Location Encounter Start Date Encounter Closed Date Diagnosis/Indication Diagnosis SNOMED-CT Code Diagnosis ICD10 Code Diagnosis Note [id number] JAQUAN Gil [facility] [address] [place] [address] 09/01/2021 08:19:31 09/02/2021 11:03:01 Low back pain 225476337 M54.50 Spasm of back muscles 20 8583827 M62.830 Health Concerns Section Related Observation LastModified by Organization Detai ls LastModified Time None Recorded Concern Status LastModified by Organization Details LastModified Time None Recorded Advance Directives Directive None Recorded Payers Encounter Date Sequence Insurance Name Policy Number Policy Kingsley Covered Member ID Kingsley Member ID Guarantor Name 09/01/2021 1 [facility] - DOS PRIOR TO 2022 - DUAL ELIGIBLE (MEDICARE REPLACEMENT/ADV ANTAGE - HMO) Sofiya Rivas [id number] Sofiya Rivas Notes Date Note Type Note Provider Name and Address Organization Details Recorded Time 09/01/2021 text/html 70 YO F new to D H and to providerShe is c/o of back pain todayStarted last Tue (~7 days ago), feels like it is somewhat worse than her usual back pain as she has hx of thisShe reports that she was lifting some heavy boxes a little before the onset but this was 3 weeks agoShe has been using a heating pad to help as well as taking Tylenol not much relief with the above modalitiesShe denies any falls or trauma to the areaShe denies any fever/chills, numbness/tingling, N/V/D, weakness, denies loss of urine/stool, denies saddle anesthesiaShe reports no other assoc sx's JAQUAN Montgomery [facility] [address], [place], [address], [place] [facility] 09/01/2021 10:13:13 OBGyn Episode No OBEpisode recorded.
--- OUTSIDE RECORDS SUMMARY | 2024-08-20 10:57 | XMS_ITS ---
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 Generated for Printi ng/Faxing/eTransmitting on:?08/20/2024 10:57 AM EST
--- OUTSIDE RECORDS SUMMARY | 2024-08-20 10:57 | XMS_ITS ---
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 Name Role Phone Chiquis Grajeda Primary Care Provider Ijeoma Love Unavailable [phone] Allergies Allergen (clinical drug ingredient) Drug/Non Drug Allergy documented on EMR Reaction Allergy Type Onset Date Status ibuprofen Advil Unknown Drug Allergy Active aspirin Aspirin Unknown Drug Allergy Active sulfamethoxazole / trimethoprim Bactrim Unknown Drug Allergy Active ibuprofen Ibuprofen Unknown Drug Allergy Active Keflex Unknown Drug Allergy Active REASON FOR VISIT At Risk Footcare, Skin problem(s) Medications Medication SIG (Take, Route, Frequency, Duration) Notes Start Date End Date Status Extra Depth Orthopedic Shoes (1 Pair) with Customized Heat Molded Multidensity Innersoles (3 Pair) as directed Dx: NIDDM/Polyneuropathy (E11.42), Hammertoe Foot Deformity (M20.41,M20.42), Preulcerative Skin Lesion(s) (L85.1 03/27/2024 Active Colace Active Vitamin B 12 Active Vitamin D3 Active Jardiance Active Actos Active Gabapentin Active Abilify Active NexIUM Active Insulin Active Fenofibrate Active SEROquel Active cloNIDine Active Lipitor Active Social History Tobacco Use: Social History [...] Are you an other tobacco user? No Vital Signs Height 5ft 5in in 06/19/2024 Weight 189 lbs 06/19/2024 BMI 31.45 kg/m2 06/19/2024 Blood pressure systolic 136 mm Hg 06/19/20 Blood pressure diastolic 74 mm Hg 024 Encounters Encounter Location Date Provider Diagnosis [facility] [place] [address] [place] [address] 06/19/2024 Ijeoma Jake Other hammer toe(s) (acquired), right foot M20.41 ; Xerosis of skin L85.3 ; Type 2 diabetes mellitus with diabetic polyneuropathy E11.42 and Other hammer toe(s) (acquired), left foot M20.42 Assessments Encounter Date Diagnosis (ICD Code) Assessment Notes Treatment Notes Treatment Clinical Notes Section Notes 06/19/2024 Other hammer toe(s) (acquired), right foot (ICD-10 - M20.41) 06/19/2024 Xerosis of skin (ICD-10 - L85.3) 06/19/2024 Type 2 diabetes mellitus with diabetic polyneuropathy (ICD-10 - E11.42) 06/19/2024 Other hammer toe(s) (acquired), left foot (ICD-10 - M20.42) Plan Of Treatment Next Appt Details Follow Up: 2 Months, Reason: Provider Name:Ijeomayevgeniy pitts, 08/31/2024 11:00:00 AM, [address] [place] [address], [id number], Procedure Notes * Category Sub-Category Detail Notes Keratoma Treatment Parring or Cutting o f Benign Hyperkeratotic Lesion(s) (-57) More than 4 Lesions - Due to the at risk nature of the patients medical condition as documented in the exam findings, performance of this keratoderma treatment is medically necessary as its management by an unskilled/untrained nonprofessional would put this patients foot and overall health at risk. Therefore, the benign hyperkeratotic lesions, ( 6 ) in total, locations as stated and described in the exam ( TA, T5, SUB MTH (s), 5, B/L, Plantar Heel(s), B/L ), were pared, and/or cut utilizing a sterile 15 blade, tissue nippers, and/or power dremel instrumentation by the physician of record - 32179 Nail Reduction Nail Reduction (-27) Trimming o f dystrophic nails performed to reduce/remove overall nail length and girth, by manual and electrical means with use of a nail nipper and/or dremel, to more viable healthy nail plate or bed tissue, any number - G0127 Progress Notes * Sofiya RIVAS EDOB: [birth year] (73 yo F)Acc No.[id number]:06/19/2024 Progress Note Patient:?Sofiya RIVAS Provider:?Ijeoma Joseph DPM :1950???Age:73 Y???Sex:Female D ate:06/19/2024 Address:[address] [place], [place] [id number] Pcp:Chiquis Grajeda Subjective: * Chief Complaints: * ???At Risk FootcareSkin prob samara(s) * HPI: ???At Risk footcare:?Pt States Last PCP Visit:?Date?03/27/2024 ???Skin problems:?Nature:?dryness , scaling.?Location:?B/L .?Duration:?several days.?Course:?worse.? * ROS:?General/Constitutional:?Nausea?denies.?Vomiting?denies.?Hunger Thirst?denies.?Loss appetite?denies.?Chills?denies.?Fatigue?denies.?Fever?denies.?Night Sweats?denies.?Unexplained weight loss?denies.?Unexplained weight gain?denies.?HEENTM:?Dentures?admits.?Dizziness?denies.?Glasses/contacts?admits.?Retinopathy?den ies.?Blurred/double vision?denies.?TMJ?denies.?Discharge/drainage?denies.?Implants?denies.?Sore throat?denies.?Dental implants?denies.?Hard of hearing ?denies.?Difficulty chewing/swallowing/speaking?denies.?Nose bleeds?denies.?Sore mouth?denies.?Respiratory:?On O xygen?denies.?Pneumonia/pleurisy?denies.?Bronchitis?denies.?Emphysema?admits.?Co ughing?admits.?Cough blood?denies.?Shortness of breath?admits.?Wheezing?admits.?Cardiovascular:?Pacemaker?denies.?MVP?denies.?WPW?denies.?CHF?denies.?Heart attack?denies.?Septal defect?denies.?Rapid beat?denies.?Chest pain ?denies.?Atrial Fib.?denies.?Murmur/Palpitations?denies.?Gastrointestinal:?Hemorrhoids?denies.?Stomach/Abdominal pain?denies.?Dark blood stool?denies.?Irritable bowel ?denies.?Constipation?denies.?Diarrhea?denies.?Hematology:?Swelling?denies.?Clots?denies.?Varicose Veins?denies.?Bruising?denies.?Bleeding problem?denies.?Genitourinary:?Blood urine?denies.?Frequent/Painfu/urination/bladder control?denies.?Kidney stones?denies.?Infection (UTI)?denies.?Nephropathy?admits.?sex trans dis (STD)?denies.?Prostate?denies.?Musculoskeletal:?Hammertoes?denies.?Bunions?denies.?Back Pain?admits.?Muscle Cramps/ Resting?admits.?Muscle cramps / walking?denies.?Generalized aches and pains?admits.?Weakness?denies.?Integ.:?Frausto?denies.?Scars?denies.?Corns/calluses?denies.?Ingrown nails?denies.?Painful nails?denies.?Open Sores?denies.?Rashes?denies.?Neurologic:?Difficulty sleeping?admits.?Brain disorder?denies.?Numbness?denies.?Balance t rouble?denies.?Confusion?denies.?Fainting/blackouts?denies.?Tingling?denies.?Zoran mors?denies.? * Medical History:? * Surgical History:?back surge ry 1997-1998facial cosmetic surgery 1977spine surgery 11/16/2023 * Hospitalization/Major Diagno stic Procedure:?[facility] surgery 11/16/2023 * Family History:?Mother: dece ased, diagnosed with Other malignant neoplasm of unspecified site, Unspecified essential hypertension, Family history of arthritis.?Father: .?Siblings: cancer, heart attack.? * Social History:?Tobacco [...] ?Interpretation?Negative ???Miscellaneous:?Caffeine: yes, 1-2 cups per day. ?Children: no. ?Exercise: yes, walking. ?Marital status: . 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 * Medications:?TakingcloNIDine SEROquel Fenofibrate Lipitor Insulin NexIUM Abilify Gabapentin Actos Jardiance Vitamin D3 Vitamin B 12 Colace Extra Depth Orthopedic Shoes (1 Pair) with Customized Heat Molded Multidensity Innersoles (3 Pair) as directed Dx: NIDDM/Polyneuropathy (E11.42), Hammertoe Foot Deformity (M20.41,M20.42), Preulcerative Skin Lesion(s) (L85.1 Medication List reviewed and reconciled with the patientTaking cloNIDine Taking SEROquel Taking Fenofibrate Taking Lipitor Taking Insulin Taking NexIUM Taking Abilify Taking Gabapentin Taking Actos Taking Jardiance Taking Vitamin D3 Taking Vitamin B 12 Taking Colace Taking Extra Depth Orthopedic Shoes (1 Pair) with Customized Heat Molded Multidensity Innersoles (3 Pair) as directed Dx: NIDDM/Polyneuropathy (E11.42), Hammertoe Foot Deformity (M20.41,M20.42), Preulcerative Skin Lesion(s) (L85.1 Medication List reviewed and reconciled with the patient * Allergies:?KeflexBactrimAspi rinAdvilIbuprofenyes[Allergies Verified] Objective: * Vitals:?Ht: 5ft 5in, Wt:189, BMI:31.45, Shoe size: 8, BP:136/74mm Hg, BS: 126, Ht-cm: 165.1 cm, Wt-k.73 kg. * ???Past Orders: ???Lab:HEMOGLOBIN A1C (GLYCO HEMOGLOBIN) (Order Date - 11/26/2023) (Collection Date & Time - 11/26/2023 09:20 AM) ? Value Reference Range ?TOTAL HEMOGLOBIN (HGBA1C) 7.5 * Examination: ???Ophthalmology Referral: ?DIABETES EYE EXAM?Neurological: ?SENSORY:?Neurological exam demonstrates, reduced light touch sensation, reduced sharp/dull discrimination , reduced vibration sensation, in a stocking fashion, B/L, 5.07 monofilament test performed at plantar aspects of 5 varied sites per foot shows sensation, reduced, B/L.?Nails: ?NAILS are:?Elongated, overgrown, dystrophic , 1-5 B/L.?Dermatologic: ?SKIN FINDINGS:?Skin shows sign(s) of, dryness, scaling, in a stocking fashion, no fissure(s) present, B/L, Skin exam reveals Keratotic lesion(s) located at, Medial plantar, TA, T5, SUB MTH (s), 5, B/L, Plantar Heel(s), B/L.?Orthopedic: ?MUSCLE STRENGTH:?5/5 all groups in a symmetrical fashion, B/L.?DIGITAL DEFORMITIES:?Digital contracture, PIPJ, 2-5 B/L, incompl-reducible to push-up test, no over, nor underlapping,?there is?evidence of shoe producing skin irritation.?Vascular: ?DP PULSES (B):?3/4, B/L.?PT PULSES (B):?3/4, B/L.?CAPILLARY FILL TIME:?immediate, all digits, B/L.?TROPHIC CONDITION-TEXTURE/ELASTICITY/TURGOR/HAIR GROWTH (B):?normal, B/L.?TEMPERTURE GRADIENT (C):?normal, warm to cool, proximal to distal, B/L, B/L.?General Examination: ?GENERAL APPEARANCE:?Reveals a pleasant, alert, well nourished, well- developed, well hydrated individual, who demonstrates proper attention to hygiene/body habitus, and is in no acute distress, Pt serves as own historian for office visit today.?ORIENTED:?person, place, and time.?FOOT EXAM:?Footwear Evaluation? Assessment: * Assessment: 1.?Other hammer toe(s) (acqu ired), right foot - M20.41???Specify :Chronic problem, Worse (4),Rx Management (4)???2.?Xerosis of skin - L85.3 (Primary)???Specify :Acute problem, Uncomplicated (3),Rx Management (4)???3.?Type 2 diabetes mellitus with diabetic polyneuropathy - E11.42???4.?Other hammer toe(s) (acquired), left foot - M20.42???Specify :Chronic problem, Worse (4),Rx Management (4)??? Plan: * Treatment: * Procedures:?Keratoma Treatment:?Parring or Cutting of Benign Hyperkeratotic Lesion(s)?(-57) More than 4 Lesions - Due to the at risk nature of the patients medical condition as documented in the exam findings, performance of this keratoderma treatment is medically necessary as its management by an unskilled/untrained nonprofessional would put this patients foot and overall health at risk. Therefore, the benign hyperkeratotic lesions, ( 6 ) in total, locations as stated and described in the exam (?TA,?T5,?SUB MTH (s),?5,?B/L,?Plantar Heel(s),?B/L?), were pared, and/or cut utilizing a sterile 15 blade, tissue nippers, and/or power dremel instrumentation by the physician of record - 41411.?Nail Reduction:?Nail Reduction?(-27) Trimming of dystrophic nails performed to reduce/remove overall nail length and girth, by manual and electrical means with use of a nail nipper and/or dremel, to more viable healthy nail plate or bed tissue, any number - G0127.? * Procedure Codes:?G0127 JEFF ING DYSTROPHIC NAILS ANY #, Modifiers: XS 66626 TRIM SKIN LESIONS, OVER 4, Modifiers: XS * Preventive Medicine:? ??Counseling:?Discussion:?-13: Office or other outpatient visit for the evaluation and management of an established patient, which required a medically appropriate history and/or examination and LOW level of DECISION MAKING for: 1 STABLE ACUTE UNCOMPLICATED PROBLEM, 2 OR MORE MINOR PROBLEMS, OR 1 STABLE CHRONIC PROBLEM, THAT POSE(S) A LOW RISK FOR MORBIDITY/MORTALITY. The visit on the day of the [...] have encouraged the patient to call the office.?Xerosis:?The patient was counseled on the diagnosis, potential etiologies, and treatment options for their skin condition. We discussed the risks and benefits of each option from performing no treatment, to utilizing OTC topical skin creams/ointments, to utilizing prescription topical creams/ointments, to utilizing customized compounded topical medications and use of nocturnal occlusion with any/all previously detailed therapies. We discussed the advantages and disadvantages of each possible treatment and importance for adherence to all the recommended therapies for optimum success and avoid potential complications such as open sore/infection/possible hospitalization. We discussed the potential effectiveness of each topical preparation as well as each ones possible side effects and/or patient medication interactions. Patient questions re: use, dosage, successful outcomes, and application consistency were reviewed and the patient verbalized that all answers were clearly understood..? * Follow Up:?2 Months * Images: * Sign off status: Completed true * Provider:?Ijeoma Joseph DPM Date:? Generated for Omari lugo/Sandy/Mario on:?08/20/2024 10:56 AM EST History and Physical Notes * HPI (History of Present Illness) Category Sub-Category Detail Notes Category Not es Skin problems Nature: dryness , scaling Location: B/L Duration: several days Course: worse At Risk footcare Pt States Last PCP Visit: Date: Examination Category Sub-Category Detail Notes Category Not es Neurological SENSORY: Neurological exa m demonstrates, reduced light touch sensation, reduced sharp/dull discrimination , reduced vibration sensation, in a stocking fashion, B/L, 5.07 monofilament test performed at plantar aspects of 5 varied sites per foot shows sensation, reduced, B/L Dermatologic SKIN FINDINGS: Skin shows sign( s) of, dryness, scaling, in a stocking fashion, no fissure(s) present, B/L, Skin exam reveals Keratotic lesion(s) located at, Medial plantar, TA, T5, SUB MTH (s), 5, B/L, Plantar Heel(s), B/L Orthopedic DIGITAL DEFORMITIES: Digital con tracture, PIPJ, 2-5 B/L, incompl-reducible to push-up test, [...] d:: Yes Ophthalmology Referral DIABETES EYE EXAM Procedure Perform ed:: Yes ?Date of Exam Performed: 04/05/2024 Findings of Diabetic Eye Exam:: no retin opathy Vascular DP PULSES (B): 3/4, B/L PT PULSES (B): 3/4, B/L CAPILLARY FILL TIME: immediate, all digi ts, B/L TEMPERTURE GRADIENT (C): normal, warm to cool, proximal to distal, B/L, B/L TROPHIC CONDITION-TEXTURE/ELASTICITY/TURGOR/HAIR GROWTH (B): normal, B/L Nails NAILS are: Elongated, overgrown, dystro phic , 1-5 B/L
--- OUTSIDE RECORDS SUMMARY | 2024-08-20 10:58 | XMS_ITS ---
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 Name Role Phone Chiquis Grajeda Primary Care Provider Ijeoma Love Unavailable [phone] Allergies Allergen (clinical drug ingredient) Drug/Non Drug [...] Polyneuropathy due to type 2 diabetes mellitus (249901296) Type 2 diabetes mellitus with diabetic polyneuropathy (E11.42) Active confirmed Problem Acquired hammer toe of right foot (3335764490218401 ) Other hammer toe(s) (acquired), right foot (M20.41) Active confirmed Problem Acquired hammer toe of left foot (3514193210168346 ) Other hammer toe(s) (acquired), left foot (M20.42) Active confirmed Vital Signs Height 5 ft 5 in in 03/27/2024 Weight 200 lbs 03/27/2024 BMI 33.28 kg/m2 03/27/2024 Encounters Encounter Location Date Provider Diagnosis [facility] [address] [address] 03/27/2024 Ijeoma Joseph Type 2 diabetes mellitus [...] Up: 2 Months, Reason: Provider Name:Ijeoma pitts, 08/31/2024 11:00:00 AM, [address] [facility], [place], [address], Procedure Notes * Category Sub-Category Detail Notes Nail Reduction Nail Reduction (-27) Trimming o f dystrophic nails performed to reduce/remove overall nail length and girth, by manual and electrical means with use of a nail nipper and/or dremel, to more viable healthy nail plate or bed tissue, any number - G0127 Progress Notes * Sofiya RIVAS EDOB: [birth year] (73 yo F)Acc No.[id number]:03/27/2024 Progress Notes Patient:?AnnieSofiya merrill Provider:?Ijeoma Joseph DPM :1950???Age:73 Y???Sex:Female D ate:03/27/2024 Address:[address] [place], [place] [id number] Pcp:Chiquis Grajeda Subjective: * Chief Complaints: * [...] 1977spine surgery 11/16/2023 * Hospitalization/Major Diagno stic Procedure:?[facility] spine surgery 11/16/2023 * Family History:?Mother: [...] status: Completed true * Provider:?Ijeoma Joseph DPM Date:?06/2023 Generated for Omari lugo/Sandy/Emileeitting on:?08/20/2024 10:57 AM EST History and Physical Notes * [...]
== END 2024-08-20 10:43 | disposition home or self-care (01) ==
PROVIDERS: PCP Internal Medicine; Visit Provider Internal Medicine
DX: E11.65 Type 2 diabetes mellitus with hyperglycemia (principal); Z79.4 Long term (current) use of insulin; J43.9 Emphysema, unspecified; R09.02 Hypoxemia; E06.3 Autoimmune thyroiditis; K21.9 Gastro-esophageal reflux disease without esophagitis; F17.200 Nicotine dependence, unspecified, uncomplicated; E78.5 Hyperlipidemia, unspecified; E04.2 Nontoxic multinodular goiter; L57.0 Actinic keratosis

== ENCOUNTER → 2024-08-20 09:54 | Outpatient (BNVA) | payer OTHER, SELFPAY | PROVIDERS: PCP Internal Medicine; Visit Provider Internal Medicine | DX: E11.65 Type 2 diabetes mellitus with hyperglycemia (principal); Z79.4 Long term (current) use of insulin; R09.02 Hypoxemia; E06.3 Autoimmune thyroiditis; K21.9 Gastro-esophageal reflux disease without esophagitis; J43.9 Emphysema, unspecified; E78.5 Hyperlipidemia, unspecified; E04.2 Nontoxic multinodular goiter; L57.0 Actinic keratosis; F17.200 Nicotine dependence, unspecified, uncomplicated; Z71.6 Tobacco abuse counseling | CPT/HCPCS: 83036; 99212 ==

== ENCOUNTER 2024-08-21 10:23 | Outpatient (AMB) | payer OTHER, SELFPAY ==
[2024-08-21 10:26] VITALS: BP 102/52; PULSE 73; O2SAT 93; BMI 31.2
--- NOTE | 2024-08-21 10:26 | A.OFFVIS_ITS ---
Vital Signs 08/21/24 10:26 Height 5 ft 5.5 in Weight 190 lb 11.198 oz BMI 31.2 BP 102/52 L Blood Pressure Location Lt brachial Position Sitting Pulse 73 Pulse Source Pulse Oximeter Pulse Oximetry (%) 93 Oxygen Delivery Method Room Air Intake Visit Reasons: COPD Intake Note: pt is here for follow up and states she is feeling tired all the time, using oxygen at night and at home she does use it prn. Automatic Profile Sander Operator Required: No Allergies aspirin [ASPIRIN] Allergy (Severe, Verified 08/21/24 10:49) GI bleed, stomach upset ibuprofen [IBUPROFEN] Allergy (Severe, Verified 08/21/24 10:49) GI Bleed, stomach upset valsartan [From Diovan] Allergy (Severe, Verified 08/21/24 10:49) hives ziprasidone [From Geodon] Allergy (Severe, Verified 08/21/24 10:49) RASH-PALPITATIONS azithromycin Allergy (Intermediate, Verified 08/21/24 10:49) facial swelling metformin [METFORMIN] Allergy (Intermediate, Verified 08/21/24 10:49) NAUSEA & VOMITING, GI upset cephalexin [From KEFLEX] Allergy (Unknown, Verified 08/21/24 10:49) can't remember lisinopril Allergy (Unknown, Verified 08/21/24 10:49) cough NSAIDS (Non-Steroidal Anti-Inflamma [NSAIDS (NON-STEROIDAL ANTI-INFLAMMA] Adverse Reaction (Severe, Verified 08/21/24 10:49) HX OF GI BLEED tramadol [Ultram] Adverse Reaction (Severe, Verified 08/21/24 10:49) GI upset sulfamethoxazole [From Bactrim] Adverse Reaction (Intermediate, Verified 08/21/24 10:49) Hives tiotropium [From Spiriva with HandiHaler] Adverse Reaction (Intermediate, Verified 08/21/24 10:49) Unknown trimethoprim [From Bactrim] Adverse Reaction (Intermediate, Verified 08/21/24 10:49) Hives doxycycline Adverse Reaction (Mild, Verified 08/21/24 10:49) Stomach Upset Medication List - Last Reconciled 08/21/24 by Nicholas Richter MD acetaminophen 1,000 mg (2 x 500 mg) PO TID PRN albuterol sulfate 90 mcg/actuation 2 puffs inhalation Q4H PRN 60 days aripiprazole 20 mg PO DAILY atorvastatin 40 mg PO BEDTIME brimonidine 0.15% 1 drp ophthalmic (eye) BID cholecalciferol (vitamin D3) 50 mcg PO BEDTIME clobetasol 0.05% 1 appl topical BID 5 days clonazepam 1 tab PO BID PRN cyanocobalamin (vitamin B-12) (Vitamin B-12) 500 mcg PO DAILY 90 days [dressing stick As directed] [easy on sock aid As directed] empagliflozin (Jardiance) 25 mg PO DAILY esomeprazole magnesium 40 mg PO DAILY@0630 fenofibrate 160 mg PO DAILY fexofenadine 180 mg PO DAILY flash glucose sensor (Appconomy Jill 2 Sensor kit) As directed fluticasone propion-salmeterol 115-21 mcg/actuation (Advair HFA) 2 puffs inhalation Q12H gabapentin 600 mg PO TID 30 days insulin aspart U-100 (Novolog FlexPen U-100 Insulin aspart) Novolog sliding scale 3 times daily (200-250: 6 units, 251-300: 8 units, 301 - 350: 10 units, >350: 12 units) insulin degludec (Tresiba FlexTouch U-100 insulin) 40 units (0.4 mL) subcut DAILY levalbuterol tartrate 45 mcg/actuation 2 puffs inhalation Q4-6H PRN levothyroxine 25 mcg PO DAILY@0600 liraglutide (Victoza 3-Jeanmarie) 1.8 mg (0.3 mL) subcut DAILY 90 days mirtazapine (Remeron) 15 mg PO BEDTIME netarsudil-latanoprost 0.02-0.005 % (Rocklatan) 1 drp ophthalmic (eye) BEDTIME [new lift chair As directed] pen needle, diabetic (Comfort EZ Pen [place]) As directed injects 3 X/day pioglitazone 15 mg PO BEDTIME quetiapine 50 mg PO BID PRN quetiapine 150 mg PO BEDTIME sennosides-docusate sodium 8.6-50 mg (Stimulant Laxative Plus) 2 tab-caps (2 x 8.6-50 mg) PO DAILY 90 days Shower Chair As directed [Transfer wheelchair As directed] vit C,P-Gy-tiojx-lutein-zeaxan 250-90-40-1 mg (PreserVision AREDS-2) 1 tab PO BID [WHEELCHAIR As directed] Do you need a note to return to daycare/school/sports/work: No HPI HPI COPD: Details: This 73 years old female with chronic obstructive pulmonary disease and hypoxemia, is here for her routine 4 months follow-up. Her acute exacerbation for which she was seen in May has resolved. She is at her baseline. Complains of frequent bouts, of cough mostly dry , complains of getting short of breath easily and feels tired most of the time. Has no fever or chills. Has cut down smoking but still at 1 pack a day. She is using oxygen mostly at night and does not need to use oxygen when she walks around during the daytime. She is using Advair HFA twice a day and hardly needs to use any rescue inhaler. [facility] Medical History Acute exacerbation of chronic obstructive pulmonary disease (COPD) Dermatitis of vulva Uses wheelchair Wears dentures Supplemental oxygen dependent Slow to wake up after anesthesia Lumbar spinal stenosis Smoker Nicotine dependence, cigarettes, uncomplicated Acute respiratory failure with hypoxia Vulvar ulcer Recurrent major depression-severe Lower extremity pain Sialoadenitis Jaw pain العلي (dyspnea on exertion) Chest pain Osteopenia (~2015) Sinus tachycardia Pulmonary nodule Menopausal state Artificial menopause state Constipation Nocturnal hypoxemia COPD (chronic obstructive pulmonary disease) Spinal stenosis Depression Vitamin D deficiency Multinodular thyroid HLD (hyperlipidemia) T2DM (type 2 diabetes mellitus) (~2008) Surgical History History of cataract surgery S/P thyroid biopsy History of lithotripsy History of cardiac catheterization Hx of colonoscopy Hx of arthroscopy of left knee Hx of spinal fusion Hx of cholecystectomy Family History Father No problems noted. Mother Cancer Diabetes Social History Household Members: None Housing: Apartment Are you a primary post anesthesia care unit nurse to a significant other at home: No Do you presently have visiting nurse or other home services: Yes (ELIGIBILITY AND OCCUPANCY INTERVIEWER 2-3 hours/day) Alcohol intake: never Comment: aware of trip hazard Patient Tobacco Use Status: Current everyday Tobacco user Smoking Start Date: 04/01/1964 Tobacco use type: Cigarette Cigarette Packs Per Day: 1 Cigarettes Per Day: 20 Years Smoked: 60 e-Cigarette/Vaping Use: Former Use Second Hand Smoke Exposure: No Advance Directives Date on File: 12/02/22 service: No Current occupational status: retired Sexual orientation: Straight/Heterosexual Cognitive needs: No Hearing needs: No Vision needs: Yes Female Reproductive History Menstrual Age of Menarche: 12 Review of Systems Const All systems reviewed & are unremarkable except as noted in HPI and below Eyes Reports no additional complaints ENT Reports nasal congestion (Mild intermittent) Card Denies chest pain, Denies irregular heart rhythm and Denies leg edema Resp Reports as per HPI GI Reports constipation and Reports dyspepsia Reports no additional complaints Musc Reports abnormal gait (Gait impaired has to use walker), Reports back pain and Reports arthralgias Skin/Breast Reports system reviewed and no additional complaints, except as documented Neuro Reports abnormal gait (Gait impaired has to use walker) Psych Reports anxiety, Reports depression and Reports mood swings Endo Reports other (Being treated for diabetes mellitus) Physical Exam Vital Signs: Last Vital Signs Pulse 73 08/21/24 10:26 BP 102/52 L 08/21/24 10:26 Pulse Ox 93 08/21/24 10:26 Oxygen Delivery Method Room Air 08/21/24 10:26 BMI result Body Mass Index 31.2 Const General: comfortable and no acute distress Orientation/consciousness: patient oriented x3 HEENT Head: Yes normal to inspection General nose exam: No nasal polyps present and No nasal discharge present Face and sinus: Yes sinuses nontender Mouth: oropharynx abnormals (Crowded, Mallampati class 4) Throat: Yes posterior oropharynx normal Eyes General: appearance normal, both eyes and all related structures Neck Neck: Yes normal visual inspection, Yes no lymphadenopathy, Yes trachea midline and Yes no JVD Thyroid: Thyroid normal Chest Chest palpation & inspection: normal inspection of the chest, normal palpation of entire chest wall and no tenderness Resp Other: Percussion note resonant, breath sounds are distant with prolonged expiratory phase. Lungs are clear today no audible wheezes rhonchi or crepitations. Cardio Palpation: normal PMI Rate: regular rate Rhythm: regular rhythm Heart sounds: no gallops and no murmurs GI Palpation (GI): Soft to palpation, nontender, No hepatosplenomegaly present and no masses Auscultation: normal bowel sounds Back/Spine/Pelvis Thoracic/Lumbar Spine: thoracic and lumbar spine normal to inspection and thoraco-lumbar ROM limited Skin General skin exam: no rashes or lesions noted Neuro General: patient oriented x3, No gait normal (Somewhat unsteady gait, uses walker) and no focal motor deficits Cranial nerves: Yes CN's II-XII intact bilaterally Extrem General: Yes normal to inspection, Yes no clubbing, cyanosis or edema and Yes no calf tenderness Psych Appearance: grossly normal and well kempt Speech and movement: Normal speech and movement present Assessment & Plan Assessment & Plan (1) COPD (chronic obstructive pulmonary disease): Comment: Long-time chronic obstructive pulmonary disease, moderately severe,, controlled and stable. At present she has no active cough or wheezing. RECENT ACUTE EXACERBATION FOR WHICH SHE WAS SEEN 2 MONTHS AGO, IS RESOLVED. Currently she is at her regular regimen including Advair HFA and albuterol p.r.n. Code(s): J44.9 - Chronic obstructive pulmonary disease, unspecified Category: Medical Qualifiers: COPD type: emphysema Emphysema type: unspecified Qualified Code(s): J43.9 - Emphysema, unspecified Plan: Continue Advair HFA 115-212 puffs b.i.d. and albuterol HFA 2 puffs Q 6 hours p.r.n.. (2) Smoker: Comment: Patient is a lifelong smoker. Has tried to quit smoking many times, but has not been able to quit complete. At present smoking 1 pack of cigarettes a day again. Code(s): F17.200 - Nicotine dependence, unspecified, uncomplicated Category: Social Hx Plan: Talked to her about quitting however because of her chronic addiction and, ,mental issues she is not going to be able to stop smoking. (3) Nocturnal hypoxemia: Comment: She has evidence of nocturnal hypoxemia since 2007 . That is when she had an OVERNIGHT SLEEP STUDY, showing only minimal degree of ADDIS, total sleep time AHI 5.5, But persistent nocturnal hypoxemia. She has been treated with oxygen at night 2 L/MT which she has been using regularly. . Code(s): G47.34 - Idiopathic sleep related nonobstructive alveolar hypoventilation Category: Medical Plan: Advised to continue using O2 2 L/minute at night. Use O2. 2 L/minute during the daytime as needed (4) Pulmonary nodule: Comment: Patient has multiple small pulmonary nodules unchanged from before Two ground-glass nodular densities in lower lobes are somewhat increased from before. Need to be followed up closely. She is being followed by, our Lung screening team. Last CT scan on 09/06/23 showed persistent density in the left lower lobe, , PET scan did not show any activity. She is due for a CT scan , in February of this year, (at 6 months interval ) She has had PET scan, and none of the nodules are density in the left lower lobe or FDG positive. Code(s): R91.1 - Solitary pulmonary nodule Category: Medical Plan: Continue annual lung screening program Coding Level of Care Code Est Pt Level 3 (09274) Diagnoses Pulmonary emphysema, unspecified emphysema type J43.9 COPD type: emphysema Emphysema type: unspecified Smoker F17.200 Nocturnal hypoxemia G47.34 Pulmonary nodule R91.1
--- OUTSIDE RECORDS SUMMARY | 2024-08-21 12:14 | XMS_ITS | Encounter Summary ---
Author Organization [facility] Address [address] [place] [address] Care Team Providers Care Cotton Classer Aide Name Role Phone Chiquis Grajeda MD Primary Care Provider [phone] Encounter Details Date Type Department Care Team (Late st Contact Info) Description 08/20/2024 Telephone Internal Medicine - [place] [facility] [address] [place] [phone] Emeterio Chirinos MD [address] [facility] [address] [place] [address] Social History Tobacco Use Types Packs/Day Years Used Date Smoking Tobacco: Never Assessed Comments Unknown Sex and Gender Information Value Date Recorded Sex Assigned at Not on file Legal Sex Female 8:12 PM EST Gender Identity Not on file Sexual Orientation Not on file documented as of this encounter Plan of Treatment Not on file documented as of this encounter Visit Diagnoses Not on filedocumented in this encounter Care Teams Cotton Classer Aide Relationship Specialty Start Date End Date Chiquis Grajeda MD [address] [place] [address] [address] [facility] [place] [address] PCP - General 12/01/22 documented as of this encounter
--- OUTSIDE RECORDS SUMMARY | 2024-08-21 12:14 | XMS_ITS ---
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 Generated for Printi ng/Fasimag/eTransmitting on:?08/21/2024 12:14 PM EST
--- OUTSIDE RECORDS SUMMARY | 2024-08-21 12:14 | XMS_ITS | Clinical Summary ---
Author Organization [facility] Address [address] [place] [address] Care Team Providers Care Trains Service Conductor Name Role Phone Chiquis Grajeda MD Primary Care Provider [phone] Encounters Date Type Department Care Team Description 08/20/2024 Telephone Internal Medicine - [address] [place] [address] Emeterio Chirinos MD from Last 3 Months Social History Tobacco Use Types Packs/Day Years Used Date Smoking Tobacco: Never Assessed Comments Unknown Sex and Gender Information Value Date Recorded Sex Assigned at Not on file Legal Sex Female 8:12 PM EST Gender Identity Not on file Sexual Orientation Not on file Plan of Treatment Health Maintenance Due Date Last Done Comments Breast Cancer Screening 1950 DTaP,Tdap,and Td Vaccines (1 - Tdap) 1969 Pneumococcal Vaccine: 50+ Ye ars (1 of 1 - PCV) 2000 Zoster Vaccines (1 of 2) 2000 Colorectal Cancer Screening: Colonoscopy 07/21/2023 Depression Screening 07/21/2023 Falls Risk Assessment 07/21/2023 Hepatitis C Screening 07/21/2023 Osteoporosis Screening (Bone Density Screening) 07/21/2023 Social Influencers of Health Screening 07/21/2023 COVID-19 Vaccine ( - 2023-2 5 season) 2024 Influenza Vaccine (#1) 2024 RSV Immunization Patients 60 + Years Old (1 - 1-dose 75+ series) 2025 HIB Vaccines Aged Out No longer eligi ble based on patient's age to complete this topic HPV Vaccines Aged Out No longer eligi ble based on patient's age to complete this topic Hepatitis A Vaccines Aged Out No long er eligible based on patient's age to complete this topic Hepatitis B Vaccines Aged Out No long er eligible based on patient's age to complete this topic IPV Vaccines Aged Out No longer eligi ble based on patient's age to complete this topic MMR Vaccines Aged Out No longer eligi ble based on patient's age to complete this topic Meningococcal ACWY Vaccine Aged Out N o longer eligible based on patient's age to complete this topic Meningococcal B Vacine Aged Out No lo nger eligible based on patient's age to complete this topic RSV Immunization Patients Un agnieszka 20 months Aged Out No longer eligible b ased on patient's age to complete this topic Varicella Vaccines Aged Out No longer eligible based on patient's age to complete this topic Care Teams Trains Service Conductor Relationship Specialty Start Date End Date Chiquis Grajeda MD [address] [place] [address] [address] [facility] [place] [address] PCP - General 12/01/22
--- OUTSIDE RECORDS SUMMARY | 2024-08-21 12:14 | XMS_ITS ---
Author Organization [facility] Address [address] [place] [address] Care Team Providers Care Security Guard Name Role Phone Chiquis Grajeda Primary Care Provider Ijeoma Love Unavailable [phone] Allergies Allergen (clinical drug ingredient) Drug/Non Drug [...] 024 Encounters Encounter Location Date Provider Diagnosis [facility] [place] [address] [place] [address] 06/19/2024 Ijeoma Jake Other hammer toe(s) (acquired), [...] Reason: Provider Name:Ijeomayevgeniy pitts, 08/31/2024 11:00:00 AM, [address] [place] [address], [phone], Procedure Notes * Category Sub-Category Detail Notes [...] instrumentation by the physician of record - 16957 Nail Reduction Nail Reduction (-27) Trimming o f dystrophic nails performed to reduce/remove overall nail length and girth, by manual and electrical means with use of a nail nipper and/or dremel, to more viable healthy nail plate or bed tissue, any number - G0127 Progress Notes * Sofiya RIVAS EDOB: [birth year] (73 yo F)Acc No.[id number]:06/19/2024 Progress Note Patient:?Sofiya RIVAS Provider:?Ijeoma Joseph DPM :1950???Age:73 Y???Sex:Female D ate:06/19/2024 Address:[address] [place], [place] [id number] Pcp:Chiquis Grajeda Subjective: * Chief Complaints: * [...] 1977spine surgery 11/16/2023 * Hospitalization/Major Diagno stic Procedure:?[facility] surgery 11/16/2023 * Family History:?Mother: [...] instrumentation by the physician of record - 31972.?Nail Reduction:?Nail Reduction?(-27) Trimming of dystrophic nails performed to reduce/remove overall nail length and girth, by manual and electrical means with use of a nail nipper and/or dremel, to more viable healthy nail plate or bed tissue, any number - G0127.? * Procedure Codes:?G0127 JEFF ING DYSTROPHIC NAILS ANY #, Modifiers: XS 28616 TRIM SKIN LESIONS, OVER 4, Modifiers: XS [...] Joseph DPM Date:? Generated for Omari lugo/Sandy/Mario on:?08/21/2024 12:13 PM EST History and Physical Notes * HPI [...]
--- OUTSIDE RECORDS SUMMARY | 2024-08-21 12:14 | XMS_ITS | Patient Health Record ---
Author Organization [facility] Address [address] [place] [address] Care Team Providers Care Dressing Machine Operator Name Role Phone Chiquis Grajeda Primary Care Provider Ijeoma Love Unavailable [phone] Zen Maria Unavailable [phone] Allergies Allergen (clinical drug ingredient) Drug/Non Drug [...] Duration) Notes Start Date End Date Status Fenofibrate Active Extra Depth Orthopedic Shoes (1 Pair) with Customized Heat Molded Multidensity Innersoles (3 Pair) as directed Dx: NIDDM/Polyneuropathy (E11.42), Hammertoe Foot Deformity (M20.41,M20.42), Preulcerative Skin Lesion(s) (L85.1 03/27/2024 Active SEROquel Active Colace Active cloNIDine Active Vitamin B 12 Active Vitamin D3 Active Jardiance Active Actos Active Gabapentin Active Abilify Active NexIUM Active Insulin Active Lipitor Active Social History Tobacco Use: [...] Problem Acquired hammer toe of right foot (3188956451981251 ) Other hammer toe(s) (acquired), right foot (M20.41) Active confirmed Problem Acquired hammer toe of left foot (3629874982770030 ) Other hammer toe(s) (acquired), left foot (M20.42) Active confirmed Problem Polyneuropathy due to type 2 diabetes mellitus (659157854) Type 2 diabetes mellitus with diabetic polyneuropathy (E11.42) Active confirmed Vital Signs Blood pressure diastolic 74 mm Hg 06/19/2024 Height 5ft 5in in 06/19/2024 Blood pressure systolic 136 mm Hg 06/19/2024 Weight 189 lbs 06/19/2024 BMI 31.45 kg/m2 06/19/2024 Encounters Encounter Location Date Provider Diagnosis [address] [address] 03/27/2024 Ijeoma Joseph Type 2 diabetes mellitus with diabetic polyneuropathy E11.42 ; Other hammer toe(s) (acquired), right foot M20.41 and Other hammer toe(s) (acquired), left foot M20.[address] [address] 06/19/2024 Ijeoma Joseph Other hammer toe(s) (acquired), right foot M20.41 ; Xerosis of skin L85.3 ; Type 2 diabetes mellitus with diabetic polyneuropathy E11.42 and Other hammer toe(s) (acquired), left foot M20.[address] [address] 09/16/2023 Zen Maria [address] [address] 12/27/2023 Zen Maria Assessments Encounter Date Diagnosis (ICD Code) Assessment Notes Treatment Notes Treatment Clinical Notes Section Notes 03/27/2024 Other hammer toe(s) (acquired), right foot (ICD-10 - M20.41) Patient Educated with: DIABETIC FOOT CARE INSTRUCTIONS. pdf (DIABETIC FOOT CARE INSTRUCTIONS. pdf) 03/27/2024 Type 2 diabetes mellitus with diabetic polyneuropathy (ICD-10 - E11.42) 06/19/2024 Other hammer toe(s) (acquired), right foot (ICD-10 - M20.41) 06/19/2024 Xerosis of skin (ICD-10 - L85.3) 06/19/2024 Type 2 diabetes mellitus with diabetic polyneuropathy (ICD-10 - E11.42) 03/27/2024 Other hammer toe(s) (acquired), left foot (ICD-10 - M20.42) 06/19/2024 Other hammer toe(s) (acquired), left foot (ICD-10 - M20.42) Plan Of Treatment Next Appt Details Provider Name:Ijeoma pitts, 08/31/2024 11:00:00 AM, [address] [place] [address], [phone], Insurance Providers Payer Name Payer Address Payer Phone Subscriber Number Group Number Insured Name Patient Relationship to Insured Coverage Start Date Coverage End Date [facility] [employer] Claims [address] [facility] [place] [id number] Sofiya Rivas Self - patient is the insured Medical (General) History Medical History History ICD Code Anxiety Arthritis Back,Hip,and Knee pain Cataracts Depression Diabetic Glaucoma Lung disease Macular degeneration Numbness Reflux ( GERD) thyroid Measles Chicken pox Joint implants/screws Transfusions Surgical History Surgery Date(Month/Year) back surgery [id number] facial cosmetic surgery 1977 spine surgery 11/16/2023 Hospitalization History Reason Date(Month/Year) [facility] spine surgery 11/16/2023
--- OUTSIDE RECORDS SUMMARY | 2024-08-21 12:14 | XMS_ITS | Clinical Summary ---
Author Organization [facility] Address [address] [place] [address] Care Team Providers Care Metal Crafts Teacher Name Role Phone hCiquis Grajeda MD Primary Care Provider [phone] Allergies Active Allergy Reactions Criticality Noted Date [...] - 99 mg/dL 07/25/2023 8:26 AM EST [facility] Comment:Fasting: <100 mg/dL, Non-Fasting: <200 mg/dL (ADA 2005) Blood Urea Nitrogen (BUN) 12 8 - 21 mg/dL 07/25/2023 8:26 AM EST [facility] Creatinine 0.6 0.4 - 1.1 mg/dL 07/25/2023 8:26 AM [place] eGFR >90 >59 07/25/2023 8:26 AM [place] Comment:CKD-EPI (2020) in mL /min/1.73 sq meters. Sodium 142 136 - 145 mmol/L 07/25/2023 8:26 AM [place] Potassium 4.0 3.4 - 5.3 mmol/L 07/25/2023 8:26 AM [place] Chloride 103 98 - 107 mmol/L 07/25/2023 8:26 AM [place] CO2 25 22 - 33 mmol/L 07/25/2023 8:26 AM [place] Calcium 9.3 8.7 - 10.5 mg/dL 07/25/2023 8:26 AM [place] Alkaline Phosphatase 62 32 - 122 U/L 07/25/2023 8:26 AM [place] Aspartate Aminotrans (AST) 57(H) 10 - 50 U/L 07/25/2023 8:26 AM [place] Alanine Aminotrans (ALT) 36 10 - 50 U/L 07/25/2023 8:26 AM [place] Bilirubin, Total 0.6 0.2 - 1.0 mg/dL 07/25/2023 8:26 AM [place] Protein, Total 5.8(L) 6.3 - 8.3 g/dL 07/25/2023 8:26 AM [place] Albumin 3.4 3.4 - 4.8 g/dL 07/25/2023 8:26 AM [place] BUN/Creatinine Ratio 20 10.0 - 25.0 Ratio 07/25/2023 8:26 AM [place] Globulin 2.4 1.5 - 3.9 g/dL 07/25/2023 8:26 AM [place] Albumin/Globulin Ratio 1.4 1.0 - 3.0 Ratio 07/25/2023 8:26 AM [place] Anion Gap 14 7 - 17 07/25/2023 8:26 AM [place] Blood specimen (specimen) (Plasma/Serum) 07/25/2023 6:49 AM EST 07/25/2023 6:56 AM EST Mray Mason DO LAB BLOOD ORDERABLES [address] [address], [address] [address] * (ABNORMAL) HEMOGLOBIN A1C WITH ESTIMATED AVERAGE GLUCOSE (07/21/2023 1:11 AM EST) Hemoglobin A1C 7.0(H) <5.7 % 07/21/2023 1:42 PM EST [facility] Comment: A1c% ? Interpretation 5.7 - 6.0 ?Increase risk of diabetes 6.1 - 6.4 ?Higher risk of diabetes > or = 6.5 ?? Consistent with diabetes Diabetes Care, 33(Supp 1):S1-S61, 2010 Estimated Average Glucose 154 mg/dL 07/21/2023 1:42 PM [facility] Blood specimen / Unknown 07/21/2023 1:11 AM EST 07/21/2023 1:59 AM EST Bernie Tony DO LAB BLOOD ORDERABL ES Performing Organization Address City/[facility]/ZIP Co de Phone Number [facility] [address] [place] [address], [address] [address] from Last 3 Months or Most Recently Relevant to Health Maintenance Advance Directives * DNR (Latest Code Status on File) Date Activated Date Inactivated Comments 07/21/2023 5:56 PM DNR/ DNI Question Answer Comments Decision thoroughly discussed with: Patient * Full Code Date Activated Date Inactivated Comments 07/21/2023 6:54 AM 07/21/2023 5:56 PM Care Teams Metal Crafts Teacher Relationship Specialty Start Date End Date Taras, Chiquis Sanchez MD [address] [place] [address] [place] [address] PCP - General Internal Medicine 07/21/23
--- OUTSIDE RECORDS SUMMARY | 2024-08-21 12:14 | XMS_ITS | Data Portability ---
Author Organization [facility] [place] [facility] Address [address] [place] [address] Care Team Providers Care Human Resources Operations Director Name Role Phone SRIKALA Primary Care Provider Assessment Encounter Date Assessment Date Assessment LastModified by Organization Details LastModified Time 01/25/2022 01/25/2022 I have reviewed and agree with the assessment and plan as documented by the contact officer. I provided real-time medical direction for this [...] Assessment and Plan as documented by the Actuarial Technician. Patient given the opportunity to ask questions. Advised if develops CP/severe SOB/turning blue/uncontrolle d n/v/d or black/bloody emesis or stool/ AMS/ syncope/ hi fever to call 911- verbalized understanding of instructions [email or web address] Not available 02/23/2023 11:45:02 Plan of Treatment Reminders Order Date Submit Date Provider Last Modified By Organization Details Last Modified Time Details Appointments None recorded. Lab rapid SARS CoV 2 Ag, QL IA, respiratory specimen 2022 023 [email or web address] 0 [facility], [address] [place] [address], [phone], 11:00:43 rapid flu (A+B) 2022 023 [email or web address] 0 [facility], [address] [place] [address], [address], 3 11:00:43 BMP, serum or plasma 2022 023 [email or web address] 0 [facility], [address] [place] [address], [address], 13:32:46 Referral None recorded. Procedures None recorded. Surgeries None recorded. Imaging None recorded. Medication Orders prednisone 20 mg tablet 2022 023 [facility] #[id number], [address] [place], [address], 11:44:47 prednisone 20 mg tablet 2022 023 [email or web address] 0 [facility]/Pharmacy #0693, [address] [place], [address], 3 11:44:43 molnupiravi r 200 mg capsule (EUA) 2022 023 [id number] [address] [place], [address], 3 11:44:46 Anbesol (benzocaine ) 10 % oral mucosal liquid 2021 022 [id number] [address] [place], [address], 20:01:49 Patient TargetsNo targets recorded. Patient InstructionsNo instructions recorded. Reason for Referral None Reported. Results Created Date Observation Date Name Description Value Unit Range Abnormal Flag Note LastModifiedBy Organization Detail LastModifiedTime 02/24/2002/23/2023 BMP, serum or plasm a BUN 8 Not Available [facility] [address] [place], [address], 02/23/2023 11:45:10 02/24/20 23 02/23/2023 BMP, serum or plasm a Ca Ionize d calciu m 1.18 Not Available [facility] [address] [place] [address], [address], 02/23/2023 11:45:10 02/24/20 23 02/23/2023 BMP, serum or plasm a CI- 98 Not Available [facility] - [facility] [address], [address], 02/23/2023 11:45:10 02/24/20 23 02/23/2023 BMP, serum or plasm a CRE 0.7 Not Available [facility] [address], [address], 02/23/2023 11:45:10 02/24/20 23 02/23/2023 BMP, serum or plasm a GLU 187 after OJ Not Available Main - [facility] ed [address] [place] [address], [address], 02/23/2023 11:45:10 02/24/20 23 02/23/2023 BMP, serum or plasm a K+ 3.8 Not Available [facility] - [facility] [address], [address], 02/23/2023 11:45:10 02/24/20 23 02/23/2023 BMP, serum or plasm a Na+ 143 Not Available [facility] - [facility] [address], [address], 02/23/2023 11:45:10 02/24/20 23 02/23/2023 BMP, serum or plasm a tCO2 25 Not Available [facility] [address], [address], 02/23/2023 11:45:10 02/24/20 23 02/23/2023 rapid flu (A+B) Flu negati ve Not Available [facility] [address] [place] [address], [address], 02/23/2023 10:58:20 0802/23/2023 rapid SARS CoV 2 Ag, QL IA, respi rator y speci men rapid SARS CoV 2 Ag, QL IA, respiratory specimen positi ve Not Available Main - [facility] ed [address] [place] [address], [address], 02/23/2023 10:58:11 Result Notes None recorded. Medical [...] ry of pud Sally Blancas MD [address] [place] [address],[address], [place], [address], [employer] 3 10:59:29 3136 aspirin medicatio n Not available Not available Not available 02/23/2023 1191 RxNorm Sally Blancas MD [address] [place] [address],[address], [place], [address], [employer], [employer] 3 10:59:35 3137 Ultram medicatio n Not available Not available Not available 02/23/2023 64110 6 RxNorm Sally Blancas MD [address] [place] [address],[address], [place], [address], [employer], [employer] 3 10:59:42 3138 Geodon medicatio n Not available Not available Not available 02/23/2023 89138 4 RxNorm Sally Blancas MD [address] [place] [address],[address], [place], [address], [employer], [employer] 3 10:59:47 Medications Name Sig Start Date [...] 3084 Maryam Acevedo MD [facility] [address] [place] [address] 01/25/2022 19:51:49 03/03/2022 12:49:36 Aphthous ulcer of mouth 562971987 K12.0 43362 Sally Blancas MD [facility] [address] [place] [address] 02/23/2023 10:50:46 02/23/2023 23:49:31 Acute exacerbation of chronic obstructive pulmonary disease 080173636 J44.1 Offered patient nebulizer she declines. She does have a nebulizer at home/ duoneb meds at [facility] but will not use because she states [...] to symptom onset) and her PCP COVID-19 [id number] U07.1 Reviewed meds with the patient and [...] symptoms- can call for repeat visit if needs-[facility] reviewed red flags- pat states prednisone helps cough in past Health Concerns Section Related Observation LastModified by Organization Detai ls LastModified Time None Recorded Concern Status LastModified by Organization Details LastModified Time None Recorded Advance Directives Directive None Recorded Payers Encounter Date Sequence Insurance Name Policy Number Policy Kingsley Covered Member ID Kingsley Member ID Guarantor Name 01/25/2022 1 [facility] - DOS PRIOR TO 2022 - DUAL ELIGIBLE (MEDICARE REPLACEMENT/ADV ANTAGE - HMO) Sofiya Rivas [id number] Sofiya Rivas 02/23/2023 1 [facility] - DOS ON OR AFTER 2022 - DUAL ELIGIBLE - HALF-WAY OPTIONS AND ONE CARE (MEDICARE REPLACEMENT/ADV ANTAGE - HMO) Sofiya Rivas [id number] Sofiya Rivas Notes Date Note Type Note [...] Protocol-Based Disposition: Consider RADHA Rosales Community clinician, MD/SKIP TENDER triage, PCP, or Urgent Care Visit within 4 Hours .................. .................. .................. .................. .................. .................. .................. ............... CRC Nursing Assessment: Comments: CRC Rn did not need further info to process visit Maryam Acevedo MD [address] [facility],[address], [place], [address], [employer] 01/25/2022 20:01:58 02/23/2023 text/html CRC Nursing Assessment: [...] .................. .................. .................. .................. .................. .................. ............... Actuarial Technician Note From Carlos Stuart: Per CRC: Member [...] is positive. Flu a/b negative, following called [facility] with report. P: [facility] Dr. Blancas was called and given report, [...] up with PCP tomorrow. Red flags discussed [facility] clear. [facility] Lab Orders: rapid SARS CoV 2 Ag, QL IA, respiratory specimen: Performed rapid flu (A+B): Performed BMP, serum or plasma: Performed [facility] Medication Orders: prednisone 20 mg tablet: Administered .................. .................. .................. .................. .................. .................. .................. ............... Disposition: Fulfilled Sally Blancas MD [address] [facility],[address], [place], [address], RUBI - ELIESER, VANIA 02/23/2023 13:35:59 OBGyn Episode No OBEpisode recorded.
--- OUTSIDE RECORDS SUMMARY | 2024-08-21 12:15 | XMS_ITS ---
Author Organization [facility] Address [address] [place] [address] Care Team Providers Care Dietary Aid Name Role Phone Chiquis Grajeda Primary Care Provider Ijeoma Love Unavailable [phone] Allergies Allergen (clinical drug ingredient) Drug/Non Drug [...] Polyneuropathy due to type 2 diabetes mellitus (796681991) Type 2 diabetes mellitus with diabetic polyneuropathy (E11.42) Active confirmed Problem Acquired hammer toe of right foot (3018616739721496 ) Other hammer toe(s) (acquired), right foot (M20.41) Active confirmed Problem Acquired hammer toe of left foot (3421254261850601 ) Other hammer toe(s) (acquired), left foot (M20.42) Active confirmed Vital Signs Height 5 ft 5 in in 03/27/2024 Weight 200 lbs 03/27/2024 BMI 33.28 kg/m2 03/27/2024 Encounters Encounter Location Date Provider Diagnosis [facility] [address] [address] 03/27/2024 Ijeoma Joseph Type 2 diabetes mellitus [...] Provider Name:Ijeoma pitts, 08/31/2024 11:00:00 AM, [address] [facility], [place], [address], Procedure Notes * Category Sub-Category Detail Notes Nail Reduction Nail Reduction (-27) Trimming o f dystrophic nails performed to reduce/remove overall nail length and girth, by manual and electrical means with use of a nail nipper and/or dremel, to more viable healthy nail plate or bed tissue, any number - G0127 Progress Notes * Sofiya RIVAS EDOB: [birth year] (73 yo F)Acc No.[id number]:03/27/2024 Progress Notes Patient:?AnnieSofiya merrill Provider:?Ijeoma Joseph DPM :1950???Age:73 Y???Sex:Female D ate:03/27/2024 Address:[address] [place], [place] [phone] Pcp:Chiquis Grajeda Subjective: * Chief Complaints: * [...] 1977spine surgery 11/16/2023 * Hospitalization/Major Diagno stic Procedure:?[place] [...] Joseph, DPM Date:?06/2023 Generated for Omari lugo/Sandy/Emileeitting on:?08/21/2024 12:14 PM EST History and Physical Notes * [...] performed:: Yes ORIENTED: person, place, and t vrigilio Footwear Evaluation Footwear Evaluation performe d:: Yes [...]
--- OUTSIDE RECORDS SUMMARY | 2024-08-21 12:15 | XMS_ITS | Data Portability ---
Author Organization [place] [facility] Address [address] [place] [address] Care Team Providers Care Locomotive Boilermaker Name Role Phone KIT STAUFFER Primary Care [...] r/o frx and eval hardware. 2021 022 [facility] ([facility]), [address] [facility], [place], [address], 15:52:40 Medication Orders cyclobenzap rine 5 mg tablet 2021 022 [id number], [address] [facility] , [place], [address], 10:12:39 Patient TargetsNo targets recorded. Patient InstructionsNo [...] ing. ELECTR ONICAL LY SIGNED BY BK BECHKAM M.D. 09/02/19 22 3:45:5 0 PM EST. [...] M.D. 09/02/19 3:45:5 0 PM EST. [email or web address] [employer] [address] [facility] [address], [address], 09/02/2021 18:24:55 Result Notes None recorded. Procedures Surgical History Date Name Laterality Status Provider Name and Address Organization Details Recorded Time Cholecystectomy completed JAQUAN Mayer [address] [place], [address], [place] [facility] 09/01/2021 09:06:46 Appendectomy completed JAQUAN Montgomery [address] [place], [address], [place] [facility] 09/01/2021 09:06:50 Tonsillectomy completed JAQUAN Montgomery [address] [place], [address], [place] [facility] 09/01/2021 09:06:55 Back Surgery completed JAQUAN Montgomery [address] [place], [address], [place] [facility] 09/01/2021 09:07:05 Imaging Results Imaging Date Name Status LastModified by Organiz ation Details LastModified Time 09/01/2021 lumbar spine AP and lat completed [email or web address] [facility] [address] [facility] [address], [address], 09/02/2021 18:24:55 Procedure Notes None recorded. Medical Equipment None Reported. Allergies Allergen ID Allergen Name Allergen Category Reaction Reaction Severity Criticality Documentation Date Start Date Code Code System Note Provider Name and Address Organization Details Recorded Time [id number] ibuprofen medicatio n Not available Not available Not available 09/01/2021 5640 RxNorm [place] [place] [address], [place], [address], [place] [facility] 2 08:57:33 731106 aspirin medicatio n Not available Not available Not available 09/01/2021 1191 RxNorm [place] [address], [place], [address], [place] [facility] 2 08:57:42 559414 Ultram medicatio n Not available Not available Not available 09/01/2021 27622 6 RxNorm Jonn er [place] [place] [address], [place], [address], [place] [facility] 2 08:57:49 630568 Geodon medicatio n Not available Not available Not available 09/01/2021 01921 4 RxNorm [place]n er [place] [place] [address], [place], [address], [place] [facility] [...] [degF] 152 mm[Hg] 76 mm[Hg] Not Available [facility] 2 09:00:51 Social History Question Answer Notes LastModified by Organizat ion Details LastModified Time Tobacco Smoking Status Current Every Day Smoker JAQUAN Montgomery [address], [place], [address], [place] [facility] 09/01/2021 09:06:31 What Is [...] N Cancer N Dementia N Stroke N COPD N Depression N Hypothyroidism Y Asthma N High Cholesterol Y Rheumatoid Arthritis N Pulmonary Embolism N Hypertension N A-fib N Osteoporosis N Kidney Disease N Gynecological HistoryNo gynecological history recorded. Obstetrics History GPAL:G 0 P 0 0 0 0 Past Encounters Encounter ID Performer Location Encounter Start Date Encounter Closed Date Diagnosis/Indication Diagnosis SNOMED-CT Code Diagnosis ICD10 Code Diagnosis Note [id number] JAQUAN Gil [facility] [address] [place] [address] 09/01/2021 08:19:31 09/02/2021 11:03:01 Low back pain 930486605 M54.50 Spasm of back muscles 20 5924496 M62.830 Health Concerns Section Related Observation LastModified by Organization Detai ls LastModified Time None Recorded Concern Status LastModified by Organization Details LastModified Time None Recorded Advance Directives Directive None Recorded Payers Encounter Date Sequence Insurance Name Policy Number Policy Kingsley Covered Member ID Kingsley Member ID Guarantor Name 09/01/2021 1 [facility] - DOS PRIOR TO 2022 - DUAL ELIGIBLE (MEDICARE REPLACEMENT/ADV ANTAGE - HMO) Sofiya Rivas [id number] Sofiya Rivas Notes Date Note Type Note [...] reports no other assoc sx's JAQUAN Montgomery [facility] [address], [place], [address], [place] [facility] 09/01/2021 10:13:13 OBGyn Episode No OBEpisode recorded.
== END 2024-08-21 10:47 | disposition home or self-care (01) ==
PROVIDERS: PCP Internal Medicine; Visit Provider Internal Medicine
DX: J43.9 Emphysema, unspecified (principal); F17.200 Nicotine dependence, unspecified, uncomplicated; G47.34 Idiopathic sleep related nonobstructive alveolar hypoventilation; R91.1 Solitary pulmonary nodule
CPT/HCPCS: 99213

== ENCOUNTER → 2024-08-21 10:23 | Outpatient (BNVA) | payer OTHER, SELFPAY | PROVIDERS: PCP Internal Medicine; Visit Provider Internal Medicine | DX: J43.9 Emphysema, unspecified (principal); G47.34 Idiopathic sleep related nonobstructive alveolar hypoventilation; R91.1 Solitary pulmonary nodule; F17.210 Nicotine dependence, cigarettes, uncomplicated | CPT/HCPCS: 99212 ==

== ENCOUNTER 2024-08-23 11:00 | Outpatient (AMB) | payer OTHER, SELFPAY ==
[2024-08-23 11:16] VITALS: BP 116/72; PULSE 86; O2SAT 96; BMI 31.1
--- NOTE | 2024-08-23 11:16 | A.OFFVIS_ITS ---
Vital Signs 08/23/24 11:16 Height 5 ft 5.5 in Weight 189 lb 9.561 oz BMI 31.1 BP 116/72 Blood Pressure Location Rt brachial Position Sitting Pulse 86 Pulse Source Pulse Oximeter Pulse Oximetry (%) 96 Oxygen Delivery Method Room Air Intake Visit Reasons: DM Intake Note: Patient presents today for a follow-up on Type 2 Diabetes Mellitus: Last Diabetic Eye exam: 09/2023, S sees meter repairer more often Last Podiatry Exam: 09/2023 Most recent HbA1c: 7.3%, 08/20/2024 Random Glucose- 205 mg/dL, Today Behavioral Scientist Required: No Accompanied by: Self / Same As Patient Allergies aspirin [ASPIRIN] Allergy (Severe, Verified 08/21/24 10:49) GI bleed, stomach upset ibuprofen [IBUPROFEN] Allergy (Severe, Verified 08/21/24 10:49) GI Bleed, stomach upset valsartan [From Diovan] Allergy (Severe, Verified 08/21/24 10:49) hives ziprasidone [From Geodon] Allergy (Severe, Verified 08/21/24 10:49) RASH-PALPITATIONS azithromycin Allergy (Intermediate, Verified 08/21/24 10:49) facial swelling metformin [METFORMIN] Allergy (Intermediate, Verified 08/21/24 10:49) NAUSEA & VOMITING, GI upset cephalexin [From KEFLEX] Allergy (Unknown, Verified 08/21/24 10:49) can't remember lisinopril Allergy (Unknown, Verified 08/21/24 10:49) cough NSAIDS (Non-Steroidal Anti-Inflamma [NSAIDS (NON-STEROIDAL ANTI-INFLAMMA] Adverse Reaction (Severe, Verified 08/21/24 10:49) HX OF GI BLEED tramadol [Ultram] Adverse Reaction (Severe, Verified 08/21/24 10:49) GI upset sulfamethoxazole [From Bactrim] Adverse Reaction (Intermediate, Verified 08/21/24 10:49) Hives tiotropium [From Spiriva with HandiHaler] Adverse Reaction (Intermediate, Verified 08/21/24 10:49) Unknown trimethoprim [From Bactrim] Adverse Reaction (Intermediate, Verified 08/21/24 10:49) Hives doxycycline Adverse Reaction (Mild, Verified 08/21/24 10:49) Stomach Upset HPI Comments Details: 73 year old female with extensive PMHx who is seen in F/U for T2DM 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 Initially diagnosed with T2DM in 2008 Was initially started on treatment with Metformin, but she did not tolerate this due to GI distress. She began using Insulin in 2018. Current regimen Actos 15 mg PO daily, Jardiance 25 mg PO daily, Victoza 1.8 mg daily, Tresiba 40 units qAM and Novolog sliding scale 3 times daily (200-250: 6 units, 251-300: 8 units, 301 - 350: 10 units, >351: 12 units). She reports compliance. She has tried and failed Glimepiride and Onglyza. She is intolerant to Metformin due to GI side effects. 07/2023: 7.3%. Last A1C 7.5% Jill 2 CGM download. High 52%, TGT 48% low 0%. GMI 7.7% No lows in past few weeks. Treats lows with tootsie rolls, orange juice, does check sugar after to make sure its increasing. Family history of T2DM in her Mother and Brother. UTD optho Has neuropathy. No nephropathy, not on JAZMIN/ARB. UAC 10 10/26/2022. Lisinopril was stopped due to cough, and no JAZMIN/ARB was resumed due to hypotension. She is following with Cardiology. Has HLD. On Atorvastatin 40 mg PO qHS. Has no history of CAD. Has had Diabetes Education. 2) NTMNG-This will be followed with Dr Taran JOHNSON CONSTITUTIONAL: Denies weight loss, fever and chills. HEENT: Denies changes in vision and hearing. RESPIRATORY: Denies SOB and cough. CV: Denies palpitations and CP GI: Denies abdominal pain, nausea, vomiting and diarrhea. : Denies dysuria and urinary frequency. MSK: Denies new myalgia and joint pain. SKIN: Denies rash and pruritus. NEUROLOGICAL: Denies headache PSYCHIATRIC: Denies recent changes in mood. PHYSICAL EXAM: GENERAL: Alert and oriented x 3. NAD EYES: EOMI. Anicteric. HENT: Moist mucous membranes. No scleral icterus. No cervical lymphadenopathy. LUNGS: Clear to auscultation bilaterally. CARDIOVASCULAR: Regular rate and rhythm. No murmur. No JVD. ABDOMEN: Soft, non-tender +bs EXTREMITIES: No edema. Non-tender. +DP pulses. Normal monofilament SKIN: No rashes or lesions. Warm. NEUROLOGIC: No focal neurological deficits. CN II-XII grossly intact PSYCHIATRIC: Cooperative. Appropriate mood and affect [facility] Medical History Acute exacerbation of chronic obstructive pulmonary disease (COPD) Dermatitis of vulva Uses wheelchair Wears dentures Supplemental oxygen dependent Slow to wake up after anesthesia Lumbar spinal stenosis Smoker Nicotine dependence, cigarettes, uncomplicated Acute respiratory failure with hypoxia Vulvar ulcer Recurrent major depression-severe Lower extremity pain Sialoadenitis Jaw pain العلي (dyspnea on exertion) Chest pain Osteopenia (~2015) Sinus tachycardia Pulmonary nodule Menopausal state Artificial menopause state Constipation Nocturnal hypoxemia COPD (chronic obstructive pulmonary disease) Spinal stenosis Depression Vitamin D deficiency Multinodular thyroid HLD (hyperlipidemia) T2DM (type 2 diabetes mellitus) (~2008) Surgical History History of cataract surgery S/P thyroid biopsy History of lithotripsy History of cardiac catheterization Hx of colonoscopy Hx of arthroscopy of left knee Hx of spinal fusion Hx of cholecystectomy Family History Father No problems noted. Mother Cancer Diabetes Social History Household Members: None Housing: Apartment Are you a primary family member caretaker to a significant other at home: No Do you presently have visiting nurse or other home services: Yes ([employer] 2-3 hours/day) Alcohol intake: never Comment: aware of trip hazard Patient Tobacco Use Status: Current everyday Tobacco user Smoking Start Date: 04/01/1964 Tobacco use type: Cigarette Cigarette Packs Per Day: 1 Cigarettes Per Day: 20 Years Smoked: 60 e-Cigarette/Vaping Use: Former Use Second Hand Smoke Exposure: No Advance Directives Date on File: 12/02/22 service: No Current occupational status: retired Sexual orientation: Straight/Heterosexual Cognitive needs: No Hearing needs: No Vision needs: Yes Female Reproductive History Menstrual Age of Menarche: 12 Physical Exam Vital Signs: Last Vital Signs Pulse 86 08/23/24 11:16 BP 116/72 08/23/24 11:16 Pulse Ox 96 08/23/24 11:16 Oxygen Delivery Method Room Air 08/23/24 11:16 BMI result Body Mass Index 31.1 Results Reviewed Results Reviewed: Laboratory Last Values Glucose (Clinic) 205 mg/dL (60-115) H 08/23/24 11:19 Assessment & Plan Assessment & Plan (1) Type 2 diabetes mellitus with hyperglycemia: Comment: Dr. Shipley Code(s): E11.65 - Type 2 diabetes mellitus with hyperglycemia Category: Medical Qualifiers: Diabetes mellitus rodent exterminator insulin use: with senior living use Qualified Code(s): E11.65 - Type 2 diabetes mellitus with hyperglycemia; Z79.4 - shelter (current) use of insulin Plan: Close to controlled. Some increased BG over the holiday. No lows. Increase tresiba to 44 units. Return in 3 months or sooner as needed Medications: Changed From insulin degludec (Tresiba FlexTouch U-100 insulin) 40 units (0.4 mL) subcut DAILY 45 mL 3RF To insulin degludec (Tresiba FlexTouch U-100 insulin) 44 units (0.44 mL) subcut DAILY 45 mL 3RF Coding Level of Care Code Est Pt Level 4 (22300) Diagnoses Type 2 diabetes mellitus with hyperglycemia, with long-term current use of insulin E11.65; Z79.4 Diabetes mellitus rodent exterminator insulin use: with rodent exterminator use
[2024-08-23 11:25] LABS: Glucose, Whole Blood 205 mg/dL (60-115)
--- OUTSIDE RECORDS SUMMARY | 2024-08-23 13:10 | XMS_ITS ---
Author Organization [facility] janeth [place] Address [address] [place] [address] Care Team Providers Care Technical Buyer Name Role Phone Chiquis Grajeda Primary Care Provider Ijeoma Love Unavailable [phone] Allergies Allergen (clinical drug ingredient) Drug/Non Drug [...] 024 Encounters Encounter Location Date Provider Diagnosis [facility] [place] [address] [place] [address] 06/19/2024 Ijeoma Jake Other hammer toe(s) (acquired), [...] Reason: Provider Name:Ijeomayevgeniy pitts, 08/31/2024 11:00:00 AM, [address] [place] [address], [phone], Procedure Notes * Category Sub-Category Detail Notes [...] instrumentation by the physician of record - 25319 Nail Reduction Nail Reduction (-27) Trimming o f dystrophic nails performed to reduce/remove overall nail length and girth, by manual and electrical means with use of a nail nipper and/or dremel, to more viable healthy nail plate or bed tissue, any number - G0127 Progress Notes * Sofiya RIVAS EDOB: [birth year] (73 yo F)Acc No.[id number]:06/19/2024 Progress Note Patient:?Sofiya RIVAS Provider:?Ijeoma Joseph DPM :1950???Age:73 Y???Sex:Female D ate:06/19/2024 Address:[address] [place], [place] [id number] Pcp:Chiquis Grajeda Subjective: * Chief Complaints: * [...] 1977spine surgery 11/16/2023 * Hospitalization/Major Diagno stic Procedure:?[facility] surgery 11/16/2023 * Family History:?Mother: [...] 7.5 * Examination: ???Ophthalmology Referral: ?DIABETES EYE EXAM?Procedure Performed:?Yes ?Date of Exam Performed?04/05/2024 ?Findings of Diabetic Eye Exam:?no retinopathy?Neurological: ?SENSORY:?Neurological exam demonstrates, reduced light touch sensation, [...] for office visit today.?ORIENTED:?person, place, and time.?FOOT EXAM:?Lower Extremity Neurological Exam performed:?Yes ?Footwear Evaluation?Footwear Evaluation performed:?Yes??? Assessment: * Assessment: 1.?Other hammer toe(s) (acqu [...] instrumentation by the physician of record - 62374.?Nail Reduction:?Nail Reduction?(-27) Trimming of dystrophic nails performed to reduce/remove overall nail length and girth, by manual and electrical means with use of a nail nipper and/or dremel, to more viable healthy nail plate or bed tissue, any number - G0127.? * Procedure Codes:?G0127 JEFF ING DYSTROPHIC NAILS ANY #, Modifiers: XS 95205 TRIM SKIN LESIONS, OVER 4, Modifiers: XS [...] Provider:?Ijeoma Joseph DPM Date:? Generated for Omari lugo/Sandy/eTransmitting on:?08/23/2024 01:10 PM EST History and Physical Notes * [...]
--- OUTSIDE RECORDS SUMMARY | 2024-08-23 13:11 | XMS_ITS | Encounter Summary ---
Author Organization [facility] Address [address] [place] [address] Care Team Providers Care Stem Cutter Name Role Phone Chiquis Grajeda MD Primary Care Provider [phone] Encounter Details Date Type Department Care Team (Late st Contact Info) Description 08/20/2024 Telephone Internal Medicine - [place] [address] [facility] [place] [address] [place] [phone] Emeterio Chirinos MD 175 [facility] [address] [place] [address] Social History Tobacco Use Types Packs/Day Years [...] on filedocumented in this encounter Care Teams Stem Cutter Relationship Specialty Start Date End Date Chiquis Grajeda MD [address] [place] [address] [address] [facility] [place] [address] PCP - General 12/01/22 documented as of this encounter
--- OUTSIDE RECORDS SUMMARY | 2024-08-23 13:11 | XMS_ITS | Patient Health Record ---
Author Organization [facility] Address [address] [place] [address] Care Team Providers Care Civil Cad Designer Name Role Phone Chiquis Grajeda Primary Care Provider Ijeoma Love Unavailable [phone] Zen Maria Unavailable [phone] Allergies Allergen (clinical drug ingredient) Drug/Non Drug [...] Problem Acquired hammer toe of right foot (1748026791527189 ) Other hammer toe(s) (acquired), right foot (M20.41) Active confirmed Problem Acquired hammer toe of left foot (7953662828741875 ) Other hammer toe(s) (acquired), left foot (M20.42) Active confirmed Problem Polyneuropathy due to type 2 diabetes mellitus (086908215) Type 2 diabetes mellitus with diabetic polyneuropathy (E11.42) Active confirmed Vital Signs Blood pressure diastolic 74 mm Hg 06/19/2024 Height 5ft 5in in 06/19/2024 Blood pressure systolic 136 mm Hg 06/19/2024 Weight 189 lbs 06/19/2024 BMI 31.45 kg/m2 06/19/2024 Encounters Encounter Location Date Provider Diagnosis [address] [address] 03/27/2024 Ijeoma Joseph Type 2 diabetes mellitus with diabetic polyneuropathy E11.42 ; Other hammer toe(s) (acquired), right foot M20.41 and Other hammer toe(s) (acquired), left foot M20.[address] [address] 06/19/2024 Ijeoma Joseph Other hammer toe(s) (acquired), right foot M20.41 ; Xerosis of skin L85.3 ; Type 2 diabetes mellitus with diabetic polyneuropathy E11.42 and Other hammer toe(s) (acquired), left foot M20.[address] [address] 09/16/2023 Zen Maria [address] [address] 12/27/2023 Zen Maria Assessments Encounter Date Diagnosis [...] Details Provider Name:Ijeoma pitts, 08/31/2024 11:00:00 AM, [address] [place] [address], [phone], Insurance Providers Payer Name Payer Address Payer Phone Subscriber Number Group Number Insured Name Patient Relationship to Insured Coverage Start Date Coverage End Date [facility] [employer] Claims [address] [facility] [place] [address] [id number] Sofiya Rivas Self - patient is the insured Medical (General) History Medical History History ICD Code Anxiety Arthritis Back,Hip,and Knee pain Cataracts Depression Diabetic Glaucoma Lung disease Macular degeneration Numbness Reflux ( GERD) thyroid Measles Chicken pox Joint implants/screws Transfusions Surgical History Surgery Date(Month/Year) back surgery [phone] facial cosmetic surgery 1977 spine surgery 11/16/2023 Hospitalization History Reason Date(Month/Year) [facility] spine surgery 11/16/2023
--- OUTSIDE RECORDS SUMMARY | 2024-08-23 13:11 | XMS_ITS | Data Portability ---
Author Organization [facility] [place] [facility] Address [address] [place] [address] Care Team Providers Care Pediatrician Managing Partner Name Role Phone SRIKALA Primary Care Provider Assessment Encounter Date Assessment Date Assessment LastModified by Organization Details LastModified Time 01/25/2022 01/25/2022 I have reviewed and agree with the assessment and plan as documented by the pigment grinder. I provided real-time medical direction for this [...] Assessment and Plan as documented by the Ski Top Trimmer. Patient given the opportunity to ask questions. Advised if develops CP/severe SOB/turning blue/uncontrolle d n/v/d or black/bloody emesis or stool/ AMS/ syncope/ hi fever to call 911- verbalized understanding of instructions [email or web address] Not available 02/23/2023 11:45:02 Plan of Treatment Reminders Order Date Submit Date Provider Last Modified By Organization Details Last Modified Time Details Appointments None recorded. Lab rapid SARS CoV 2 Ag, QL IA, respiratory specimen 2022 023 [email or web address] 0 [facility], [address] [place] [address], [phone], 11:00:43 rapid flu (A+B) 2022 023 [email or web address] 0 [facility], [address] [place] [address], [address], 3 11:00:43 BMP, serum or plasma 2022 023 [email or web address] 0 [facility], [address] [place] [address], [address], 13:32:46 Referral None recorded. Procedures None recorded. Surgeries None recorded. Imaging None recorded. Medication Orders prednisone 20 mg tablet 2022 023 [facility]/Pharmacy #[id number], [address] [place], [address], 11:44:47 prednisone 20 mg tablet 2022 023 [email or web address] 0 [facility]/Pharmacy #[id number], [address] [place], [address], 3 11:44:43 molnupiravi r 200 mg capsule (EUA) 2022 023 [id number] [address] [place], [address], 3 11:44:46 Anbesol (benzocaine ) 10 % oral mucosal liquid 2021 022 [id number], [address] [place], [address], 20:01:49 Patient TargetsNo targets recorded. Patient InstructionsNo instructions recorded. Reason for Referral None Reported. Results Created Date Observation Date Name Description Value Unit Range Abnormal Flag Note LastModifiedBy Organization Detail LastModifiedTime 02/24/2002/23/2023 BMP, serum or plasm a BUN 8 Not Available [facility] [address] [place], [address], 02/23/2023 11:45:10 02/24/20 23 02/23/2023 BMP, serum or plasm a Ca Ionize d calciu m 1.18 Not Available [facility] [address] [place] [address], [address], 02/23/2023 11:45:10 02/24/20 23 02/23/2023 BMP, serum or plasm a CI- 98 Not Available [facility] - [facility] [address], [address], 02/23/2023 11:45:10 02/24/20 23 02/23/2023 BMP, serum or plasm a CRE 0.7 Not Available [facility] - [facility] [address], [address], 02/23/2023 11:45:10 02/24/20 23 02/23/2023 BMP, serum or plasm a GLU 187 after OJ Not Available Main - [facility] ed [address] [place] [address], [address], 02/23/2023 11:45:10 02/24/20 23 02/23/2023 BMP, serum or plasm a K+ 3.8 Not Available [facility] - [facility] [address], [address], 02/23/2023 11:45:10 02/24/20 23 02/23/2023 BMP, serum or plasm a Na+ 143 Not Available [facility] - [facility] [address], [address], 02/23/2023 11:45:10 02/24/20 23 02/23/2023 BMP, serum or plasm a tCO2 25 Not Available [facility] - [facility] [address], [address], 02/23/2023 11:45:10 02/24/20 23 02/23/2023 rapid flu (A+B) Flu negati ve Not Available [facility] [address] [place] [address], [address], 02/23/2023 10:58:20 0802/23/2023 rapid SARS CoV 2 Ag, QL IA, respi rator y speci men rapid SARS CoV 2 Ag, QL IA, respiratory specimen positi ve Not Available Main - [facility] ed [address] [place] [address], [address], 02/23/2023 10:58:11 Result Notes None recorded. Medical Equipment None Reported. Allergies Allergen ID Allergen Name Allergen Category Reaction Reaction Severity Criticality Documentation Date Start Date Code Code System Note Provider Name and Address Organization Details Recorded Time 3135 ibuprofen medicatio n Not available Not available Not available 02/23/2023 5640 RxNorm Not true aller gy has a histo ry of pud Sally Blancas MD [address] [place] [address],[address], [place], [address], [employer] 3 10:59:29 3136 aspirin medicatio n Not available Not available Not available 02/23/2023 1191 RxNorm Sally Blancas MD [address] [place] [address],[address], [place], [address], [employer], [employer] 3 10:59:35 3137 Ultram medicatio n Not available Not available Not available 02/23/2023 50706 6 RxNorm Sally Blancas MD [address] [place] [address],[address], [place], [address], [employer], [employer] 3 10:59:42 3138 Geodon medicatio n Not available Not available Not available 02/23/2023 61885 4 RxNorm Sally Blancas MD [address] [place] [address],[address], [place], [address], [employer], [employer] 3 10:59:47 Medications Name Sig Start Date [...] 3084 Maryam Acevedo MD [facility] [address] [place] [phone] 01/25/2022 19:51:49 03/03/2022 12:49:36 Aphthous ulcer of mouth 261260447 K12.0 98591 Sally Blancas MD [facility] [address] [place] [phone] 02/23/2023 10:50:46 02/23/2023 23:49:31 Acute exacerbation of chronic obstructive pulmonary disease 391920941 J44.1 Offered patient nebulizer she declines. She does have a nebulizer at home/ duoneb meds at [facility] but will not use because she [...] to symptom onset) and her PCP COVID-19 [id number] U07.1 Reviewed meds with the patient and [...] symptoms- can call for repeat visit if needs-[facility] reviewed red flags- pat states prednisone helps [...] (MEDICARE REPLACEMENT/ADV ANTAGE - HMO) Sofiya Rivas [id number] Sofiya Rivas 02/23/2023 1 [facility] - DOS ON OR AFTER 2022 - DUAL ELIGIBLE - NURSING HOME OPTIONS AND ONE CARE (MEDICARE REPLACEMENT/ADV ANTAGE - HMO) Sofiya Rivas [id number] Sofiya Rivas Notes Date Note Type Note [...] Protocol-Based Disposition: Consider RADHA Rosales Community clinician, MD/STILL OPERATOR triage, PCP, or Urgent Care Visit within 4 Hours .................. .................. .................. .................. .................. .................. .................. ............... CRC Nursing Assessment: Comments: CRC Rn did not need further info to process visit Maryam Acevedo MD [address] [facility],[address], [place], [address], [facility] 01/25/2022 20:01:58 02/23/2023 text/html CRC Nursing Assessment: [...] .................. .................. .................. .................. .................. .................. ............... Ski Top Trimmer Note From Carlos Stuart: Per CRC: Member [...] is positive. Flu a/b negative, following called [facility] with report. P: [facility] Dr. Blancas was called and given report, [...] up with PCP tomorrow. Red flags discussed [facility] clear. [facility] Lab Orders: rapid SARS CoV 2 Ag, QL IA, respiratory specimen: Performed rapid flu (A+B): Performed BMP, serum or plasma: Performed [facility] Medication Orders: prednisone 20 mg tablet: Administered .................. .................. .................. .................. .................. .................. .................. ............... Disposition: Fulfilled Sally Blancas MD [address] [facility],[address], [place], [address], [facility]BI - ELIESER, VANIA 02/23/2023 13:35:59 OBGyn Episode No OBEpisode recorded.
--- OUTSIDE RECORDS SUMMARY | 2024-08-23 13:11 | XMS_ITS | Clinical Summary ---
Author Organization [facility] Address [address] [place] [address] Care Team Providers Care Electric Shovel Operator Name Role Phone Chiquis Grajeda MD Primary Care Provider Encounters Date Type Department Care Team Description 08/20/2024 Telephone Internal Medicine - [address] [place] [address] Emeterio Chirinos MD from Last [...] age to complete this topic Care Teams Electric Shovel Operator Relationship Specialty Start Date End Date Chiquis Grajeda MD [address] [place] [address] Dr [address] [facility] [place] [address] PCP - General 12/01/22
--- OUTSIDE RECORDS SUMMARY | 2024-08-23 13:11 | XMS_ITS | Clinical Summary ---
Author Organization [facility] Address [address] [place] [id number] Care Team Providers Care Nail Expert Name Role Phone Chiquis Grajeda MD Primary Care Provider [phone] Allergies Active Allergy Reactions Criticality Noted Date [...] - 99 mg/dL 07/25/2023 8:26 AM EST [facility] Comment:Fasting: <100 mg/dL, Non-Fasting: <200 mg/dL (ADA 2005) Blood Urea Nitrogen (BUN) 12 8 - 21 mg/dL 07/25/2023 8:26 AM EST [facility] Creatinine 0.6 0.4 - 1.1 mg/dL 07/25/2023 8:26 AM [facility] eGFR >90 >59 07/25/2023 8:26 AM [facility] Comment:CKD-EPI (2020) in mL /min/1.73 sq meters. Sodium 142 136 - 145 mmol/L 07/25/2023 8:26 AM [facility] Potassium 4.0 3.4 - 5.3 mmol/L 07/25/2023 8:26 AM [facility] Chloride 103 98 - 107 mmol/L 07/25/2023 8:26 AM [facility] CO2 25 22 - 33 mmol/L 07/25/2023 8:26 AM [facility] Calcium 9.3 8.7 - 10.5 mg/dL 07/25/2023 8:26 AM [facility] Alkaline Phosphatase 62 32 - 122 U/L 07/25/2023 8:26 AM [facility] Aspartate Aminotrans (AST) 57(H) 10 - 50 U/L 07/25/2023 8:26 AM [facility] Alanine Aminotrans (ALT) 36 10 - 50 U/L 07/25/2023 8:26 AM [facility] Bilirubin, Total 0.6 0.2 - 1.0 mg/dL 07/25/2023 8:26 AM [facility] Protein, Total 5.8(L) 6.3 - 8.3 g/dL 07/25/2023 8:26 AM [facility] Albumin 3.4 3.4 - 4.8 g/dL 07/25/2023 8:26 AM [facility] BUN/Creatinine Ratio 20 10.0 - 25.0 Ratio 07/25/2023 8:26 AM [facility] Globulin 2.4 1.5 - 3.9 g/dL 07/25/2023 8:26 AM [facility] Albumin/Globulin Ratio 1.4 1.0 - 3.0 Ratio 07/25/2023 8:26 AM [facility] Anion Gap 14 7 - 17 07/25/2023 8:26 AM [facility] Blood specimen (specimen) (Plasma/Serum) 07/25/2023 6:49 AM EST 07/25/2023 6:56 AM EST Mary Mason DO LAB BLOOD ORDERABLES [address] [address], [address] [address] * (ABNORMAL) HEMOGLOBIN A1C WITH ESTIMATED AVERAGE GLUCOSE (07/21/2023 1:11 AM EST) Hemoglobin A1C 7.0(H) <5.7 % 07/21/2023 1:42 PM EST [facility] Comment: A1c% ? Interpretation 5.7 - 6.0 ?Increase risk of diabetes 6.1 - 6.4 ?Higher risk of diabetes > or = 6.5 ?? Consistent with diabetes Diabetes Care, 33(Supp 1):S1-S61, 2010 Estimated Average Glucose 154 mg/dL 07/21/2023 1:42 PM [facility] Blood specimen / Unknown 07/21/2023 1:11 AM EST 07/21/2023 1:59 AM EST Bernie Tony DO LAB BLOOD ORDERABL ES Performing Organization Address City/[facility]/ZIP Co de Phone Number [facility] [address] [place] [address], [address] [address] from Last 3 Months or Most Recently Relevant to Health Maintenance Advance Directives * DNR (Latest Code Status on File) Date Activated Date Inactivated Comments 07/21/2023 5:56 PM DNR/ DNI Question Answer Comments Decision thoroughly discussed with: Patient * Full Code Date Activated Date Inactivated Comments 07/21/2023 6:54 AM 07/21/2023 5:56 PM Care Teams Nail Expert Relationship Specialty Start Date End Date Taras, Chiquis Sanchez MD [address] [place] [address] [place] [address] PCP - General Internal Medicine 07/21/23
--- OUTSIDE RECORDS SUMMARY | 2024-08-23 13:11 | XMS_ITS ---
Author Organization [facility] Address [address] [place] [address] Care Team Providers Care Wire Harness Assembler Name Role Phone Chiquis Grajeda Primary Care Provider Ijeoma Love Unavailable [phone] Zen Maria Unavailable [phone] REASON FOR VISIT PRIOR AUTHORIZATION NURSE PPWK Entered Encounters Encounter Location Date Provider Diagnosis [address] [address] 12/27/2023 Zen Maria Plan Of Treatment Next Appt Details Provider Name:Ijeoma pitts, 08/31/2024 11:00:00 AM, [address] [place] [address], [address], Progress Notes * Sofiya RIVAS EDOB: [birth year] (73 yo F)Acc No.[id number]:12/27/2023 Patient:?Sofiya Rivas :1950???Age:73 Y???Sex:Female Address:[address] [place] [address], [address] * true * Date:? Generated for [place]/[employer]/eTransmitting on:?08/23/2024 01:11 PM EST
--- OUTSIDE RECORDS SUMMARY | 2024-08-23 13:11 | XMS_ITS ---
Author Organization [facility] Address [address] [place] [address] Care Team Providers Care Phone Triage Specialist Name Role Phone Chiquis Grajeda Primary Care Provider Ijeoma Love Unavailable [phone] Allergies Allergen (clinical drug ingredient) Drug/Non Drug [...] Polyneuropathy due to type 2 diabetes mellitus (615479065) Type 2 diabetes mellitus with diabetic polyneuropathy (E11.42) Active confirmed Problem Acquired hammer toe of right foot (6691421874247289 ) Other hammer toe(s) (acquired), right foot (M20.41) Active confirmed Problem Acquired hammer toe of left foot (2204034010183491 ) Other hammer toe(s) (acquired), left foot (M20.42) Active confirmed Vital Signs Height 5 ft 5 in in 03/27/2024 Weight 200 lbs 03/27/2024 BMI 33.28 kg/m2 03/27/2024 Encounters Encounter Location Date Provider Diagnosis [facility] [address] [address] 03/27/2024 Ijeoma Joseph Type 2 diabetes mellitus [...] Provider Name:Ijeoma pitts, 08/31/2024 11:00:00 AM, [address] [facility], [place], [address], Procedure Notes * Category Sub-Category Detail Notes Nail Reduction Nail Reduction (-27) Trimming o f dystrophic nails performed to reduce/remove overall nail length and girth, by manual and electrical means with use of a nail nipper and/or dremel, to more viable healthy nail plate or bed tissue, any number - G0127 Progress Notes * Sofiya RIVAS EDOB: [birth year] (73 yo F)Acc No.[id number]:03/27/2024 Progress Notes Patient:?AnnieSofiya merrill Provider:?Ijeoma Joseph DPM :1950???Age:73 Y???Sex:Female D ate:03/27/2024 Address:[address] [place], [place] [id number] Pcp:Chiquis Grajeda Subjective: * Chief Complaints: * [...] 1977spine surgery 11/16/2023 * Hospitalization/Major Diagno stic Procedure:?[facility] spine surgery 11/16/2023 * Family History:?Mother: dece [...] 7.5 * Examination: ???Ophthalmology Referral: ?DIABETES EYE EXAM?Diabetic Retinopathy Screening:?Yes 2023 ?Findings of Diabetic Eye Exam:?no retinopathy?Neurological: ?SENSORY:?Neurological [...] * Provider:?Ijeoma Joseph, DPM Date:?06/2023 Generated for [place]/eTransmitting on:?08/23/2024 01:11 PM EST History and Physical Notes * [...]
== END 2024-08-23 11:40 | disposition home or self-care (01) ==
PROVIDERS: PCP Internal Medicine; Visit Provider Internal Medicine
DX: E11.65 Type 2 diabetes mellitus with hyperglycemia (principal); Z79.4 Long term (current) use of insulin

== ENCOUNTER → 2024-08-23 11:00 | Outpatient (BNVA) | payer OTHER, SELFPAY | PROVIDERS: PCP Internal Medicine; Visit Provider Internal Medicine | DX: E11.65 Type 2 diabetes mellitus with hyperglycemia (principal); Z79.4 Long term (current) use of insulin | CPT/HCPCS: 82947; 99212 ==

== ENCOUNTER 2024-11-21 09:46 | Outpatient (AMB) | payer OTHER, SELFPAY ==
[2024-11-21 09:50] VITALS: BP 130/58; PULSE 78; O2SAT 98; BMI 30.7
--- NOTE | 2024-11-21 09:50 | A.OFFVIS_ITS ---
Vital Signs 11/21/24 09:50 Height 5 ft 5.5 in Weight 187 lb 6.287 oz BMI 30.7 BP 130/58 L Blood Pressure Location Rt brachial Position Sitting Pulse 78 Pulse Source Pulse Oximeter Pulse Oximetry (%) 98 Oxygen Delivery Method Room Air Intake Visit Reasons: DM Intake Note: Patient presents today for a follow-up on Type 2 Diabetes Mellitus: Last Diabetic Eye exam: 10/05/2023, [facility] Last Podiatry Exam: 09/2023 Most recent HbA1c: 7.7%, 11/21/2024 Random Glucose- 216 mg/dL, Today Kiss Setter Hand Required: No Accompanied by: Self / Same As Patient Allergies aspirin [ASPIRIN] Allergy (Severe, Verified 11/21/24 09:54) GI bleed, stomach upset ibuprofen [IBUPROFEN] Allergy (Severe, Verified 11/21/24 09:54) GI Bleed, stomach upset valsartan [From Diovan] Allergy (Severe, Verified 11/21/24 09:54) hives ziprasidone [From Geodon] Allergy (Severe, Verified 11/21/24 09:54) RASH-PALPITATIONS azithromycin Allergy (Intermediate, Verified 11/21/24 09:54) facial swelling metformin [METFORMIN] Allergy (Intermediate, Verified 11/21/24 09:54) NAUSEA & VOMITING, GI upset cephalexin [From KEFLEX] Allergy (Unknown, Verified 11/21/24 09:54) can't remember lisinopril Allergy (Unknown, Verified 11/21/24 09:54) cough NSAIDS (Non-Steroidal Anti-Inflamma [NSAIDS (NON-STEROIDAL ANTI-INFLAMMA] Adverse Reaction (Severe, Verified 11/21/24 09:54) HX OF GI BLEED tramadol [Ultram] Adverse Reaction (Severe, Verified 11/21/24 09:54) GI upset sulfamethoxazole [From Bactrim] Adverse Reaction (Intermediate, Verified 11/21/24 09:54) Hives tiotropium [From Spiriva with HandiHaler] Adverse Reaction (Intermediate, Verified 11/21/24 09:54) Unknown trimethoprim [From Bactrim] Adverse Reaction (Intermediate, Verified 11/21/24 09:54) Hives doxycycline Adverse Reaction (Mild, Verified 11/21/24 09:54) Stomach Upset HPI Comments Details: 73 year old female with extensive PMHx who is seen in F/U for T2DM 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 Initially diagnosed with T2DM in 2008 Was initially started on treatment with Metformin, but she did not tolerate this due to GI distress. She began using Insulin in 2018. Current regimen Actos 15 mg PO daily, Jardiance 25 mg PO daily, Victoza 1.8 mg daily, Tresiba 44 units qAM and Novolog sliding scale 3 times daily (200-250: 6 units, 251-300: 8 units, 301 - 350: 10 units, >351: 12 units). She reports compliance. She has tried and failed Glimepiride and Onglyza. She is intolerant to Metformin due to GI side effects. 07/2023: 7.3%. todays A1C is 7.7% Jill 2 CGM download. High 46%, TGT 54% No lows in past few weeks. Treats lows with tootsie rolls, orange juice, does check sugar after to make sure its increasing. Family history of T2DM in her Mother and Brother. UTD optho Has neuropathy. No nephropathy, not on JAZMIN/ARB. UAC 10 10/26/2022. Lisinopril was stopped due to cough, and no JAZMIN/ARB was resumed due to hypotension. She is following with Cardiology. Has HLD. On Atorvastatin 40 mg PO qHS. Has no history of CAD. Has had Diabetes Education. 2) NTMNG-This will be followed with Dr Taran JOHNSON CONSTITUTIONAL: Denies weight loss, fever and chills. HEENT: Denies changes in vision and hearing. RESPIRATORY: Denies SOB and cough. CV: Denies palpitations and CP GI: Denies abdominal pain, nausea, vomiting and diarrhea. : Denies dysuria and urinary frequency. MSK: Denies new myalgia and joint pain. SKIN: Denies rash and pruritus. NEUROLOGICAL: Denies headache PSYCHIATRIC: Denies recent changes in mood. PHYSICAL EXAM: GENERAL: Alert and oriented x 3. NAD EYES: EOMI. Anicteric. HENT: Moist mucous membranes. No scleral icterus. No cervical lymphadenopathy. LUNGS: Clear to auscultation bilaterally. CARDIOVASCULAR: Regular rate and rhythm. No murmur. No JVD. ABDOMEN: Soft, non-tender +bs EXTREMITIES: No edema. Non-tender. +DP pulses. Normal monofilament SKIN: No rashes or lesions. Warm. NEUROLOGIC: No focal neurological deficits. CN II-XII grossly intact PSYCHIATRIC: Cooperative. Appropriate mood and affect [facility] Medical History Acute exacerbation of chronic obstructive pulmonary disease (COPD) Dermatitis of vulva Uses wheelchair Wears dentures Supplemental oxygen dependent Slow to wake up after anesthesia Lumbar spinal stenosis Smoker Nicotine dependence, cigarettes, uncomplicated Acute respiratory failure with hypoxia Vulvar ulcer Recurrent major depression-severe Lower extremity pain Sialoadenitis Jaw pain العلي (dyspnea on exertion) Chest pain Osteopenia (~2015) Sinus tachycardia Pulmonary nodule Menopausal state Artificial menopause state Constipation Nocturnal hypoxemia COPD (chronic obstructive pulmonary disease) Spinal stenosis Depression Vitamin D deficiency Multinodular thyroid HLD (hyperlipidemia) T2DM (type 2 diabetes mellitus) (~2008) Surgical History History of cataract surgery S/P thyroid biopsy History of lithotripsy History of cardiac catheterization Hx of colonoscopy Hx of arthroscopy of left knee Hx of spinal fusion Hx of cholecystectomy Family History Father No problems noted. Mother Cancer Diabetes Social History Household Members: None Housing: Apartment Are you a primary home care scheduler to a significant other at home: No Do you presently have visiting nurse or other home services: Yes ([employer] 2-3 hours/day) Alcohol intake: never Comment: aware of trip hazard Patient Tobacco Use Status: Current everyday Tobacco user Smoking Start Date: 04/01/1964 Tobacco use type: Cigarette Cigarette Packs Per Day: 1 Cigarettes Per Day: 20 Years Smoked: 60 e-Cigarette/Vaping Use: Former Use Second Hand Smoke Exposure: No Advance Directives Date on File: 12/02/22 service: No Current occupational status: retired Sexual orientation: Straight/Heterosexual Cognitive needs: No Hearing needs: No Vision needs: Yes Female Reproductive History Menstrual Age of Menarche: 12 Physical Exam Vital Signs: Last Vital Signs Pulse 78 11/21/24 09:50 BP 130/58 L 11/21/24 09:50 Pulse Ox 98 11/21/24 09:50 Oxygen Delivery Method Room Air 11/21/24 09:50 BMI result Body Mass Index 30.7 Results AMB Hemoglobin A1c AMB Hemoglobin A1c 7.7 % Last Edit by ORION Rand on 11/21/24 10:04 Results Reviewed Results Reviewed: Laboratory Last Values Glucose (Clinic) 216 mg/dL (60-115) H 11/21/24 09:55 Assessment & Plan Assessment & Plan (1) Type 2 diabetes mellitus with hyperglycemia: Comment: Dr. 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 Hyperglycemia most pronounced after dinner. 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) use of insulin Medications: New pioglitazone (Actos) 30 mg PO DAILY 90 tabs 3RF Changed From insulin aspart U-100 (Novolog FlexPen U-100 Insulin aspart) Novolog sliding scale 3 times daily (200-250: 6 units, 251-300: 8 units, 301 - 350: 10 units, >350: 12 units) Max dose/24 hour 36 units 30 mL 6RF Hyperglycemia To insulin aspart U-100 (Novolog FlexPen U-100 Insulin aspart) Novolog sliding scale 3 times daily with breakfast and lunch (200-250: 6 units, 251-300: 8 units, 301 - 350: 10 units, >350: 12 units) Novolog sliding scale with dinner (150-199: 6 units, 200-250: 8 units, 251-300 10 units, 301-350: 12 units, >350 take 14 units) Max daily dosing/24 hours 38 units 30 mL 6RF Hyperglycemia Discontinued pioglitazone Discontinued Reason: Doctor's Order 15 mg PO BEDTIME 90 tabs 3RF E11.65 - Type 2 diabetes mellitus with hyperglycemia Coding Level of Care Code Est Pt Level 4 (24283) Diagnoses Type 2 diabetes mellitus with hyperglycemia, with long-term current use of insulin E11.65; Z79.4 Diabetes mellitus jail insulin use: with substation engineer use
[2024-11-21 10:00] LABS: Glucose, Whole Blood 216 mg/dL (60-115)
--- OUTSIDE RECORDS SUMMARY | 2024-11-21 10:31 | XMS_ITS ---
Author Name [facility] Organization Unknown Encounters Encounter Type Encounter Reason Primary Diagnosis Location Date Observation Dorsalgia, unspecified Dorsalgia, unspecified [employer] 07/20/2023 Care Team Organization Name Specialty Phone Email Start Date End Da te [employer] KALA PO Primary Care 07/21/2023 [employer] NO PCP Primary Care 07/21/2023 [employer] 07/21/2023 09/12/2024 [employer] 07/21/2023
== END 2024-11-21 10:16 | disposition home or self-care (01) ==
PROVIDERS: PCP Internal Medicine; Visit Provider Internal Medicine
DX: E11.65 Type 2 diabetes mellitus with hyperglycemia (principal); Z79.4 Long term (current) use of insulin

== ENCOUNTER → 2024-11-21 09:46 | Outpatient (BNVA) | payer OTHER, SELFPAY | PROVIDERS: PCP Internal Medicine; Visit Provider Internal Medicine | DX: E11.65 Type 2 diabetes mellitus with hyperglycemia (principal); Z79.4 Long term (current) use of insulin; Z79.84 Long term (current) use of oral hypoglycemic drugs | CPT/HCPCS: 82947; 83036; 99212 ==

== ENCOUNTER 2024-11-23 23:54 | Inpatient (IN) | payer OTHER, SELFPAY ==
--- NOTE | ~2024-11-23 | XR_ITS ---
CLINICAL HISTORY: dyspnea 2 view chest x-ray Comparison: None Findings: Left basilar subsegmental atelectatic changes, otherwise unremarkable. Heart size is normal. No acute fracture. IMPRESSION: Left basilar subsegmental atelectatic changes, otherwise unremarkable. This document has been electronically signed by: Tay Bell MD on 11/24/2024 00:46:22
--- NOTE | ~2024-11-23 | CT_ITS ---
CLINICAL HISTORY: lung nodules, rule out PNA CT chest without contrast Comparison: CR - XR CHEST 2V - 11/24/24 00:12 EDT Findings: The heart is normal size. The visualized thyroid and mediastinum are unremarkable. Bilateral dependent areas of subsegmental atelectasis or infiltrate are present. Pleural-parenchymal scarring noted in the lung bases bilaterally. The upper abdomen is unremarkable. No acute fractures. Mild emphysematous changes are present. Atherosclerotic vascular calcifications are present. IMPRESSION: Bilateral basilar subsegmental atelectasis or infiltrates. This document has been electronically signed by: Rick Omalley MD, PHD on 11/24/2024 03:52:21
--- NOTE | 2024-11-23 23:56 | ED_ITS ---
HPI - SOB/Dyspnea General Chief Complaint: Dyspnea Stated Complaint: SOB hx of COPD Time Seen by Provider: 11/23/24 23:54 Source: patient and EMS Mode of arrival: EMS Limitations: no limitations History of Present Illness ED Provider: HPI Narrative: 74-year-old woman with history of COPD, 2 L of oxygen at home, has been having shortness of breath for the past 3 days her VNA was telling her to go to the ER and that she has been holding off, EMS provided DuoNeb treatments with some improvement, she was not hypoxic, no reports of fevers or chills or ongoing chest pain. His been using her medications on regular basis. No productive cough, no hemoptysis. Related Data Home Medications ?Medication ?Instructions ?Recorded ?Confirmed clonazepam 0.5 mg tablet 1 tab PO BID PRN Anxiety 07/28/22 08/21/24 quetiapine 25 mg tablet 50 mg PO BID PRN Anxiety 07/28/22 08/21/24 aripiprazole 20 mg tablet 20 mg PO DAILY 10/03/22 08/21/24 quetiapine 100 mg tablet 150 mg PO BEDTIME 10/04/23 08/21/24 brimonidine 0.15 % eye drops 1 drp ophthalmic (eye) BID 11/01/23 08/21/24 netarsudil 0.02 %-latanoprost 1 drp ophthalmic (eye) BEDTIME 11/01/23 08/21/24 0.005 % eye drops (Rocklatan) vit C 250 mg-vit E 90 mg-zinc 40 1 tab PO BID 11/01/23 08/21/24 mg-copper 1 [id number] capsule (PreserVision AREDS-2) mirtazapine 30 mg tablet 30 mg PO BEDTIME 11/21/24 Previous Rx's ?Medication ?Instructions ?Recorded new lift chair #1 ea 11/10/22 levalbuterol tartrate 45 2 puff inhalation Q4-6H PRN 11/30/22 mcg/actuation aerosol inhaler shortness of breath #1 ea easy on sock aid #1 ea 08/15/23 dressing stick #1 ea 08/22/23 WHEELCHAIR #1 ea 09/05/23 sennosides 8.6 mg-docusate sodium 2 tab-cap (2 x 8.6-50 mg) PO DAILY 10/26/23 50 mg tablet (Stimulant Laxative 90 days #180 tabs Plus) Transfer wheelchair #1 ea 11/09/23 acetaminophen 500 mg tablet 1,000 mg (2 x 500 mg) PO TID PRN 11/16/23 pain #42 tabs pen needle, diabetic 32 gauge x #100 ea 12/09/23 5/16 (Comfort EZ Pen [place]) albuterol sulfate 90 mcg/actuation 2 puff inhalation Q4H PRN 01/11/24 aerosol inhaler Shortness Of Breath 60 days #8.5 grams fluticasone propionate 115 2 puff inhalation Q12H #12 ea 02/10/24 mcg-salmeterol 21 mcg/actuation HFA inhaler (Advair HFA) empagliflozin 25 mg tablet 25 mg PO DAILY #90 tabs 02/22/24 (Jardiance) flash glucose sensor (FreeStyle #6 kits 02/22/24 Jill 2 Sensor kit) liraglutide 0.6 mg/0.1 mL (18 mg/3 1.8 mg (0.3 mL) subcut DAILY 90 02/22/24 mL) subcutaneous pen injector days #27 mL (Victoza 3-Jeanmarie) levothyroxine 25 mcg tablet 25 mcg PO DAILY@0600 #90 tabs 05/08/24 fexofenadine 180 mg tablet 180 mg PO DAILY #90 tabs 05/10/24 Shower Chair #1 ea 05/16/24 clobetasol 0.05 % topical cream 1 appl topical BID 5 days #45 grams 06/13/24 cholecalciferol (vitamin D3) 50 50 mcg PO BEDTIME #90 tabs 07/31/24 mcg (2,000 unit) tablet cyanocobalamin (vitamin B-12) 500 500 mcg PO DAILY 90 days #90 tabs 07/31/24 mcg tablet (Vitamin B-12) atorvastatin 40 mg tablet 40 mg PO BEDTIME #90 tabs 08/20/24 insulin degludec 100 unit/mL (3 44 unit (0.44 mL) subcut DAILY #45 08/23/24 mL) subcutaneous pen (Tresiba mL FlexTouch U-100 insulin) gabapentin 600 mg tablet 600 mg PO TID 30 days #90 tabs 08/29/24 esomeprazole magnesium 40 mg 40 mg PO DAILY@0630 #28 caps 10/26/24 capsule,delayed release fenofibrate 160 mg tablet 160 mg PO DAILY #30 tabs 10/26/24 insulin aspart U-100 100 unit/mL See Rx Instructions subcut TID PRN 11/21/24 (3 mL) subcutaneous pen (Novolog Hyperglycemia #30 mL FlexPen U-100 Insulin aspart) pioglitazone 30 mg tablet (Actos) 30 mg PO DAILY #90 tabs 11/21/24 Allergies Allergy/AdvReac Type Severity Reaction Status Date / Time aspirin [ASPIRIN] Allergy Severe GI bleed, Verified 11/24/24 00:06 stomach upset ibuprofen [IBUPROFEN] Allergy Severe GI Bleed, Verified 11/24/24 00:06 stomach upset valsartan [From Diovan] Allergy Severe hives Verified 11/24/24 00:06 ziprasidone [From Geodon] Allergy Severe RASH-PALPIT Verified 11/24/24 00:06 ATIONS azithromycin Allergy Intermediate facial Verified 11/24/24 00:06 swelling metformin [METFORMIN] Allergy Intermediate NAUSEA & Verified 11/24/24 00:06 VOMITING, GI upset cephalexin [From KEFLEX] Allergy Unknown can't Verified 11/24/24 00:06 remember lisinopril Allergy Unknown cough Verified 11/24/24 00:06 NSAIDS (Non-Steroidal AdvReac Severe HX OF GI Verified 11/24/24 00:06 Anti-Inflamma BLEED [NSAIDS (NON-STEROIDAL ANTI-INFLAMMA] tramadol [Ultram] AdvReac Severe GI upset Verified 11/24/24 00:06 sulfamethoxazole AdvReac Intermediate Hives Verified 11/24/24 00:06 [From Bactrim] tiotropium AdvReac Intermediate Unknown Verified 11/24/24 00:06 [From Spiriva with HandiHaler] trimethoprim [From Bactrim] AdvReac Intermediate Hives Verified 11/24/24 00:06 doxycycline AdvReac Mild Stomach Verified 11/24/24 00:06 Upset Review of Systems 2 Constitutional: Constitutional: Reports as per [facility] Past Medical History Medical History Acute exacerbation of chronic obstructive pulmonary disease (COPD) Dermatitis of vulva Uses wheelchair Wears dentures Supplemental oxygen dependent Slow to wake up after anesthesia Lumbar spinal stenosis Smoker Nicotine dependence, cigarettes, uncomplicated Acute respiratory failure with hypoxia Vulvar ulcer Recurrent major depression-severe Lower extremity pain Sialoadenitis Jaw pain العلي (dyspnea on exertion) Chest pain Osteopenia (~2015) Sinus tachycardia Pulmonary nodule Menopausal state Artificial menopause state Constipation Nocturnal hypoxemia COPD (chronic obstructive pulmonary disease) Spinal stenosis Depression Vitamin D deficiency Multinodular thyroid HLD (hyperlipidemia) T2DM (type 2 diabetes mellitus) (~2008) Surgical History History of cataract surgery S/P thyroid biopsy History of lithotripsy History of cardiac catheterization Hx of colonoscopy Hx of arthroscopy of left knee Hx of spinal fusion Hx of cholecystectomy Family History Family History Father No problems noted. 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) Alcohol intake: never Comment: aware of trip hazard Patient Tobacco Use Status: Current everyday Tobacco user Smoking Start Date: 04/01/1964 Tobacco use type: Cigarette Cigarette Packs Per Day: 1 Cigarettes Per Day: 20 Years Smoked: 60 e-Cigarette/Vaping Use: Former Use Second Hand Smoke Exposure: No Advance Directives: Yes Advance Directives on File: Yes Advance Directives Date on File: 12/02/22 service: No Current occupational status: retired Sexual orientation: Straight/Heterosexual Cognitive needs: No Hearing needs: No Vision needs: Yes Physical Exam 2 Vital Signs: Vital Signs: Last Vital Signs Temp 98.4 F 11/24/24 00:06 Pulse 92 11/24/24 00:25 Resp 20 11/24/24 00:25 BP 146/33 H 11/24/24 00:06 Pulse Ox 93 11/24/24 00:06 O2 Del Method Nasal Cannula 11/24/24 00:06 O2 Flow Rate 3 11/24/24 00:06 BMI result Body Mass Index 31.1 Const: Other: ? Gen: appears of stated age. ? CV: RRR, no obvious murmurs appreciated ? Resp: Expiratory wheezing throughout, no rales or rhonchi no stridor ? Abd: Bowel sounds are present, no tenderness no rebound no rigidity ? MSK: FROM, strength 5/5 all extremities ? Skin: Warm, dry, intact, ? Neuro: Alert and oriented x3, moving upper and lower extremities symmetrically, no obvious facial asymmetry noted Medications Administered Discontinued Medications Generic Name Dose Route Start Last Admin Trade Name Melissa PRN Reason Stop Dose Admin Albuterol Sulfate 2.5 mg/ 5 mg 11/24/24 00:17 11/24/24 00:21 Albuterol Sulfate 2.5 mg INHALE 11/24/24 00:18 5 mg ONCE ONE Administration Sodium Chloride 500 mls @ 500 mls/hr 11/24/24 00:15 11/24/24 00:42 Ns IV 11/24/24 01:14 500 mls/hr .Q1H ONE Administration Methylprednisolone Sodium Succinate 125 mg 11/23/24 23:57 11/24/24 00:41 Methylprednisolone Sod Succ 125 Mg Vial IVPUSH 11/23/24 23:58 125 mg ONCE ONE Administration Medical Decision Making Medical Decision Making [facility] Narrative: 00:04 patient is presenting with wheezing, has history of COPD on oxygen, sounds like she has been getting worse for the past 3 days has been coming to the ER although it was requested by her VNA, some other considerations for workup as below, at least on my initial evaluation I have low suspicion for CHF, I did not elicit PE risk factors, pneumonia, is another consideration, we will add additional medications as she is still wheezing on exam, give steroids, gentle fluids, disposition to be determined based on response to treatment. 01:21 patient re-evaluated, she is still wheezy, oxygen demand 2 5 L, we will admit at this point Differential Diagnosis Differential Diagnoses: The differential diagnosis associated with the presentation includes CHF, COPD exacerbation, pneumonia, pneumothorax, ACS, PE, Admission/Observation Consideration of admission/observation: Escalation of care including admission/observation considered Lab Data [facility] Lab Attestation statement: I reviewed the patient's lab results. 11/24/24 00:37 11/24/24 00:37 Labs: Lab Results 11/23/24 11/24/24 Range/Units 00:20 00:37 WBC 4.0 L (4.8-10.8) X10*3/uL RBC 4.91 (4.20-5.50) X10*6/uL Hgb 14.5 (12.0-16.0) g/dl Hct 43.9 (37.0-47.0) % MCV 89.4 (80.0-98.0) fL MCH 29.5 (27.0-33.0) pg MCHC 33.0 (31.0-35.0) g/dl RDW 14.2 (11.0-16.0) % Plt Count 190 D (160-400) X10*3/uL MPV 10.0 (9.4-12.3) fL Immature Gran % (Auto) 0.2 (0.0-0.4) % Neut % (Auto) 56.7 (45-73) % Lymph % (Auto) 28.5 (20-40) % [place] % (Auto) 13.9 H (2-11) % Eos % (Auto) 0.2 (0-4) % Baso % (Auto) 0.5 (0-2) % Lymph # (Auto) 1.2 (1.2-4.9) X10*3/uL [place] # (Auto) 0.6 (0.1-1.2) X10*3/uL Eos # (Auto) 0.0 (0.0-0.4) X10*3/uL Baso # (Auto) 0.0 (0.0-0.2) X10*3/uL Abs Immat Gran (auto) 0.01 (0.00-0.03) X10*3/uL Absolute Neuts (auto) 2.3 (2.0-8.3) x10*3/uL Absolute Nucleated RBC 0.000 (0.0-0.012) X10*3/uL Nucleated RBC % (auto) 0.0 (0.0-0.2) /100WBC Sodium 145 (135-145) mmol/L Potassium 3.8 (3.3-5.1) mmol/L Chloride 107 (96-108) mmol/L Carbon Dioxide 29 (22-29) mmol/L Anion Gap 13 (12-20) BUN 11 (9-16) mg/dL Creatinine 0.71 (0.5-1.4) mg/dL Estim Creat Clear Calc 74.7 Estimated GFR > 60 Random Glucose 154 H (60-115) mg/dL Calcium 10.1 D (8.4-10.2) mg/dL Total Bilirubin 0.5 (0.0-1.0) mg/dL AST 37 H (5-31) U/L ALT 25 (0-31) U/L Alkaline Phosphatase 51 (39-117) U/L Troponin I High Sens 3.1 (<3.5-17.0) ng/L B-Natriuretic Peptide 22 (<100) pg/mL Total Protein 6.9 (6.5-8.0) g/dL Albumin 4.6 (3.5-5.0) g/dL Lipase 32 (8-78) U/L Influenza Type A (PCR) NEGATIVE (Negative) Influenza Type B (PCR) NEGATIVE (Negative) RSV RNA Qual (PCR) NEGATIVE (Negative) SARS-CoV-2 RNA (RT-PCR) NEGATIVE (Negative) Independent Interpretation I performed an independent interpretation of an: EKG (97 bpm Otherwise normal ECG without dysrhythmia, AV edgardo blocks or ST-T changes to suspect underlying ACS, my independent interpretation) and Plain X-Ray ( My independent chest xray interpretation: Lungs: Lungs are clear bilaterally without evidence of focal consolidation, pleural effusion, or pneumothorax. Cardiac silhouette is unremarkable, no obvious mediastinal widening, no obvious bony abnormalities such as fractures. Impression: Normal chest X) Discharge Plan Discharge Clinical Impression: Acute exacerbation of chronic obstructive pulmonary disease Patient Disposition: Admitted As Inpatient Print Language: Iraqi
[2024-11-23 23:57] VITALS: BP 130/40; PULSE 92; O2SAT 84
--- NOTE | 2024-11-23 23:57 | ECG_ITS ---
Test Reason : DYSPNEA Blood Pressure : */* mmHG Vent. Rate : 97 BPM Atrial Rate : 97 BPM P-R Int : 154 ms QRS Dur : 82 ms QT Int : 340 ms P-R-T Axes : 63 63 53 degrees QTcB Int : 431 ms Normal sinus rhythm Low voltage QRS Borderline ECG When compared with ECG of 20-Jul-2023 19:31, No significant change was found Referred By: Paul Pratt Electronically Signed By: SHANNAN ERICKSON MD
[2024-11-24] VITALS (13 sets, daily range): BP systolic 104–146; BP diastolic 33–52; PULSE 68–104; RESP 15–24; TEMP 36.7–37.2; O2SAT 90–99; BMI 31.1
[2024-11-24] MEDS: Albuterol Sulfate 2.5 MG, Albuterol Sulfate (0.083%) 2.5 MG 5 MG INHALE (00:21)
[2024-11-24 00:42] LABS: MANUAL DIFF FLAG NO
[2024-11-24] MEDS: 0.9 % Sodium Chloride 500 ML IV ×2 (00:42→01:55)
[2024-11-24 00:47] LABS: Basophils Percent Auto 0.5 % (0-2); Eosinophils Percent Auto 0.2 % (0-4); Hematocrit 43.9 % (37.0-47.0); Hemoglobin 14.5 g/dl (12.0-16.0); Imm Gran Abs Auto 0.01 X10*3/uL (0.00-0.03); Imm Gran Pct Auto 0.2 % (0.0-0.4); Lymphocytes Absolute Auto 1.2 X10*3/uL (1.2-4.9); Lymphocytes Percent Auto 28.5 % (20-40); Mean Corpuscular Hemoglobin 29.5 pg (27.0-33.0); Mean Corpuscular Volume 89.4 fL (80.0-98.0); Monocytes Absolute Auto 0.6 X10*3/uL (0.1-1.2); Monocytes Percent Auto 13.9 % (2-11); Neutrophils Absolute Auto 2.3 x10*3/uL (2.0-8.3); Neutrophils Percent Auto 56.7 % (45-73); Platelet Count 190 X10*3/uL (160-400); Red Blood Count 4.91 X10*6/uL (4.20-5.50); Red Cell Distribution Width 14.2 % (11.0-16.0)
[2024-11-24 01:07] LABS: B Type Natriuretic Peptide 22 pg/mL (<100); Troponin-I High Sensitivity 3.1 ng/L (<3.5-17.0)
[2024-11-24 01:09] LABS: Alanine Aminotransferase 25 U/L (0-31); Albumin Level 4.6 g/dL (3.5-5.0); Alkaline Phosphatase 51 U/L (39-117); Anion Gap 13 (12-20); Aspartate Amino Transferase 37 U/L (5-31); Bilirubin Total 0.5 mg/dL (0.0-1.0); Blood Urea Nitrogen 11 mg/dL (9-16); Calcium 10.1 mg/dL (8.4-10.2); Carbon Dioxide 29 mmol/L (22-29); Chloride 107 mmol/L (96-108); Creatinine Clr Calc Pharmacy 74.7; Estimated Glomerular Filt Rate > 60; Glucose Random 154 mg/dL (60-115); Lipase 32 U/L (8-78); Potassium 3.8 mmol/L (3.3-5.1); Sodium 145 mmol/L (135-145); Total Protein 6.9 g/dL (6.5-8.0)
[2024-11-24 01:09] LABS: Influenza A PCR NEGATIVE (Negative); Influenza B PCR NEGATIVE (Negative); Resp Syncy Virus RNA Qual PCR NEGATIVE (Negative); SARS COV2 PCR INHOUSE NEGATIVE (Negative)
--- NOTE | 2024-11-24 01:22 | PC.NURSE ---
pt 88% on 3 L NC, O 2 increased to 5L per MD
[2024-11-24] MEDS: Magnesium Sulfate/H2O 2 GM/50 ML PIGGYBACK IV (01:32)
--- NOTE | 2024-11-24 01:41 | PM.IMHP ---
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 Patient reports productive cough but sputum is white in presentation. Patient could no longer lie on her back or side. Patient normally only uses oxygen at night and as needed during the day. Patient continues to smoke 1.5 packs per day. Patient was told by her VNA nurse to report to the emergency room. EMS notes patient's pulse ox was 76%. Patient placed on 4 L nasal cannula. Patient reported no fever but had mild chills. Patient currently denies any chest pain, shortness of breath at rest, abdominal pain, nausea or vomiting. Patient is not having a headache or new visual changes. Patient reports she is almost blind in her left eye due to macular degeneration. Patient denies any recent falls or trauma. Patient did have mild diarrhea in the morning that has since resolved. Patient denies any recent travel or being exposed to anyone with an upper respiratory illness. Patient states she is up-to-date on her vaccinations for flu, COVID and RSV. Viral studies were negative today. In the emergency room patient received methylprednisolone 125 IV x1, breathing treatments and remains on 3-4 L nasal cannula. Patient has not been started on antibiotics at this point. Patient follows with a manager reporting and is being monitored for pulmonary nodules that are concerning. Patient is due for an upcoming CT scan but that will be ordered today as chest x-ray is inconclusive for pneumonia or any type of acute respiratory issue. Patient has noted leukopenia. Patient does not use nebulizers at home. Patient does not present with a fever. Review of Systems Review of Systems: Patient denies any chest pain, shortness of breath at rest, abdominal pain, nausea, vomiting, constipation. Patient did not episode of diarrhea this morning. Patient denies any headaches. Patient states vision in her left eye is almost gone secondary to macular degeneration. Patient states she no longer drives. Patient does follow with a retinal specialist. Patient denies any history of stroke or seizure. Patient uses walker to ambulate. Yes all other systems are reviewed and are negative [facility] Medical History Hypothyroid Macular degeneration Acute exacerbation of chronic obstructive pulmonary disease (COPD) Dermatitis of vulva Uses wheelchair Wears dentures Supplemental oxygen dependent Slow to wake up after anesthesia Lumbar spinal stenosis Smoker Nicotine dependence, cigarettes, uncomplicated Acute respiratory failure with hypoxia Vulvar ulcer Recurrent major depression-severe Lower extremity pain Sialoadenitis Jaw pain العلي (dyspnea on exertion) Chest pain Osteopenia (~2015) Sinus tachycardia Pulmonary nodule Menopausal state Artificial menopause state Constipation Nocturnal hypoxemia COPD (chronic obstructive pulmonary disease) Spinal stenosis Depression Vitamin D deficiency Multinodular thyroid HLD (hyperlipidemia) T2DM (type 2 diabetes mellitus) (~2008) Functional capacity: uses cane/walker (rollator) Patient : No Family History Father No problems noted. 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 2-3 hours/day) Alcohol intake: never Comment: aware of trip hazard Patient Tobacco Use Status: Current someday Tobacco user Smoking Start Date: 04/01/1964 Tobacco use type: Cigarette Cigarette Packs Per Day: 1 Cigarettes Per Day: 20 Years Smoked: 60 Smoked in Last 30 Days: Yes e-Cigarette/Vaping Use: Former Use Second Hand Smoke Exposure: No Use of substances other than those prescribed or required for medical reasons: No Advance Directives: Yes Advance Directives on File: Yes Advance Directives Date on File: 12/02/22 Nutrition Risks: No Nutritional Risk Patient : No service: No Current occupational status: retired Sexual orientation: Straight/Heterosexual Cognitive needs: No Hearing needs: No Vision needs: Yes Ebola Risk: Travel/Contact With Anyone From Affected Area/s: No Has Patient Experienced Ebola Symptoms: No Meds Allergies Allergy/AdvReac Type Severity Reaction Status Date / Time aspirin [ASPIRIN] Allergy Severe GI bleed, Verified 11/24/24 00:06 stomach upset ibuprofen [IBUPROFEN] Allergy Severe GI Bleed, Verified 11/24/24 00:06 stomach upset valsartan [From Diovan] Allergy Severe hives Verified 11/24/24 00:06 ziprasidone [From Geodon] Allergy Severe RASH-PALPIT Verified 11/24/24 00:06 ATIONS azithromycin Allergy Intermediate facial Verified 11/24/24 00:06 swelling metformin [METFORMIN] Allergy Intermediate NAUSEA & Verified 11/24/24 00:06 VOMITING, GI upset cephalexin [From KEFLEX] Allergy Unknown can't Verified 11/24/24 00:06 remember lisinopril Allergy Unknown cough Verified 11/24/24 00:06 NSAIDS (Non-Steroidal AdvReac Severe HX OF GI Verified 11/24/24 00:06 Anti-Inflamma BLEED [NSAIDS (NON-STEROIDAL ANTI-INFLAMMA] tramadol [Ultram] AdvReac Severe GI upset Verified 11/24/24 00:06 sulfamethoxazole AdvReac Intermediate Hives Verified 11/24/24 00:06 [From Bactrim] tiotropium AdvReac Intermediate Unknown Verified 11/24/24 00:06 [From Spiriva with HandiHaler] trimethoprim [From Bactrim] AdvReac Intermediate Hives Verified 11/24/24 00:06 doxycycline AdvReac Mild Stomach Verified 11/24/24 00:06 Upset Active Medications: Current Medications Acetaminophen (Acetaminophen 325 Mg Tablet) 650 mg PO Q6H PRN PRN Reason: Pain, Mild 1-3,fever,headache Albuterol/Ipratropium (Albuterol/Iprat 2.5/0.5mg 3 Ml Ampul.Neb) 3 ml INHALE Q4H PRN PRN Reason: Shortness of Breath/Wheezing Dextrose (Dextrose 50 % 25 Gm/50 Ml Syringe) 25 gm IVPUSH Q15M PRN; Protocol PRN Reason: per Hypoglycemia Standing Ord. Enoxaparin Sodium (Enoxaparin Sodium 40 Mg/0.4 Ml Syringe) 40 mg SUBCUT Q24H ROBIN Glucose (Glucose Gel 15 Gm Gel..Gram.) 15 gm PO Q15M PRN; Protocol PRN Reason: per Hypoglycemia Standing Ord. Magnesium Sulfate (Magnesium Sulfate/H2o) 2 gm in 50 mls @ 25 mls/hr IV ONCE ONE Stop: 11/24/24 03:21 Last Admin: 11/24/24 01:32 Dose: 25 mls/hr Sodium Chloride (Ns) 500 mls @ 500 mls/hr IV .Q1H ONE Stop: 11/24/24 02:29 Insulin Human Lispro (Insulin Lispro 100 Unit/Ml 3 Ml Vial) 0 unit SUBCUT QIDACHS ROBIN; Protocol Magnesium Hydroxide (Milk Of Magnesia 30 Ml Oral.Susp) 30 ml PO DAILY PRN PRN Reason: Constipation Melatonin (Melatonin 3 Mg Tablet) 6 mg PO BEDTIME PRN PRN Reason: Insomnia Methylprednisolone Sodium Succinate (Methylprednisolone Sod Succ 125 Mg Vial) 60 mg IVPUSH Q12H ROBIN Ondansetron HCl (Ondansetron Hcl 4 Mg/2 Ml Vial) 4 mg IVPUSH Q8H PRN PRN Reason: Nausea and Vomiting Sodium Chloride (0.9 % Sodium Chloride Flush 3 Ml Syringe) 3 ml IVFLUSH QSHIFT [facility] Home Medications ?Medication ?Instructions ?Recorded ?Confirmed ?Last Taken ?Type clonazepam 0.5 mg tablet 1 tab PO BID PRN Anxiety 07/28/22 08/21/24 Unknown History quetiapine 25 mg tablet 50 mg PO BID PRN Anxiety 07/28/22 08/21/24 Unknown History aripiprazole 20 mg tablet 20 mg PO DAILY 10/03/22 08/21/24 11/16/23 History quetiapine 100 mg tablet 150 mg PO BEDTIME 10/04/23 08/21/24 Unknown History brimonidine 0.15 % eye drops 1 drp ophthalmic (eye) BID 11/01/23 08/21/24 Unknown History netarsudil 0.02 %-latanoprost 1 drp ophthalmic (eye) BEDTIME 11/01/23 08/21/24 Unknown History 0.005 % eye drops (Rocklatan) vit C 250 mg-vit E 90 mg-zinc 40 1 tab PO BID 11/01/23 08/21/24 Unknown History mg-copper 1 [id number] capsule (PreserVision AREDS-2) mirtazapine 30 mg tablet 30 mg PO BEDTIME 11/21/24 Unknown History Physical Exam Vital Signs and Narrative: Vital Signs: Last Vital Signs Temp 98.4 F 11/24/24 00:06 Pulse 92 11/24/24 00:25 Resp 20 11/24/24 00:25 BP 146/33 H 11/24/24 00:06 Pulse Ox 93 11/24/24 00:06 O2 Del Method Nasal Cannula 11/24/24 00:06 O2 Flow Rate 3 11/24/24 00:06 BMI result Body Mass Index 31.1 Alert and orientated X3, able to give good history. Good memory with dates and times. Neuro: CN II-X11 intact, Left eye vision declined (pt is not yet legally blind)_ EYES: PERRLA, EOM intact R eye only ENT: hearing intact, no issues with swallowing, uvula midline, lips moist, nares patent no epistaxis, dentures in place fit well Cardiac: S1 S2 RRR, no murmur, no JVD, no edema in Lower ext Pulmonary: lungs B wheeze and rhonchi, diminshed at base Abdominal: BS active in all 4 quadrants, no guarding, tenderness, rebounding, obese MSK: strength 4/5 upper and lower extremities : no CVA tenderness no bladder distension Extremities: no edema in lower extremities, PT and DP pulses palpable +2 Psych: mood stable, judgement and insight good, pt states even if she was dx with lung cancer, she likely will not stop smoking Skin: lumbar scar clean and dry and intact, no open wounds noted on exam. No wounds reported Results Labs 11/24/24 04:35 11/24/24 04:35 Labs: Laboratory Results - last 24 hr 11/23/24 11/24/24 00:20 00:37 MCV 89.4 MCH 29.5 MCHC 33.0 RDW 14.2 Plt Count 190 D MPV 10.0 Immature Gran % (Auto) 0.2 Neut % (Auto) 56.7 Lymph % (Auto) 28.5 [place] % (Auto) 13.9 H Eos % (Auto) 0.2 Baso % (Auto) 0.5 Lymph # (Auto) 1.2 [place] # (Auto) 0.6 Eos # (Auto) 0.0 Baso # (Auto) 0.0 Abs Immat Gran (auto) 0.01 Absolute Neuts (auto) 2.3 Absolute Nucleated RBC 0.000 Nucleated RBC % (auto) 0.0 Anion Gap 13 Estim Creat Clear Calc 74.7 Estimated GFR > 60 Random Glucose 154 H Calcium 10.1 D Total Bilirubin 0.5 AST 37 H ALT 25 Alkaline Phosphatase 51 Troponin I High Sens 3.1 B-Natriuretic Peptide 22 Total Protein 6.9 Albumin 4.6 Lipase 32 Influenza Type A (PCR) NEGATIVE Influenza Type B (PCR) NEGATIVE RSV RNA Qual (PCR) NEGATIVE SARS-CoV-2 RNA (RT-PCR) NEGATIVE ECG Attestation: I personally reviewed and interpreted this ECG as follows: (Normal sinus rhythm Low voltage QRS) Prior ECG tracings: available for review Imaging Radiologist's Impressions: CXR Findings: Left basilar subsegmental atelectatic changes, otherwise unremarkable. Heart size is normal. No acute fracture. IMPRESSION: Left basilar subsegmental atelectatic changes, otherwise unremarkable. 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 Patient has had 2 days of increasing shortness of breath to the point that patient can no longer lie on her back or side. CT scan of the chest pending noting evidence of history of pulmonary nodules and to rule out pneumonia. COPD exacerbation -Continue oxygenation via nasal cannula -Xopenex inhaled t.i.d. -Methylprednisolone 60 IV b.i.d., taper -D-dimer ordered, if elevated we will complete CTA of the chest noting history of pulmonary nodules. Otherwise CT scan without contrast will be completed to rule out pneumonia and evaluate pulmonary nodules. -Incentive spirometer -Supportive care with antitussives -Pulmonary consult if indicated -Will attempt to obtain sputum culture prior to starting empiric antibiotics -Patient counseled on the benefits of smoking cessation, patient states she has no desire to stop smoking even if she was told she had lung cancer -All viral studies are negative Acute hypoxic respiratory failure -patient requiring 4-5 L of oxygen nasal cannula, usually on 3 L nasal cannula at night only and as needed during the day -Xopenex added t.i.d. -patient continues on methylprednisolone -magnesium 2 g ordered in the emergency department -telemetry and continuous pulse ox monitoring ordered -BNP WNL 22, no indication for echo at this time Tobacco dependence -Nicotine patch 21 mcg ordered -Patient is well educated not to smoke when wearing the patch -Patient states she does not plan to continue smoking cessation as smoking for her is a social event where she gets to enjoy time with her friends who also smoke. Leukopenia -white count 4.0, no bandemia. Patient has no fever or chills or night sweats currently -Patient does not meet the criteria for sepsis -Monitor CBC -UA and sputum ordered Pulmonary nodules -Plan on doing CT of the chest versus CTA of the chest depending on D-dimer. -Patient follows with manager reporting in the community Insulin-dependent diabetes mellitus -sliding scale insulin -diabetic diet Hypothyroidism -continue levothyroxine -Will check TSH with reflex Macular degeneration -patient is almost legally blind in the left eye -patient follows a retinal specialist -continue eyedrops as ordered once med rec completed DVT prophylaxis: Lovenox PPI prophylaxis: Omeprazole Med rec pending Full code status Quality Stroke Does the patient have a stroke diagnosis?: No Reason for No Anti-thrombotic by Day Two: N/A - Med Ordered VTE Prior VTE?: No VTE Risk Level:: Medical - moderate - high VTE Device Contraindication: N/A - Device Ordered VTE Drug Contraindication: N/A - Med Ordered
[2024-11-24] MEDS: guaiFENesin 200 MG/10 ML 10 ML LIQUID PO ×2 (01:54→12:51)
[2024-11-24] MEDS: levalbuterol HCL 1.25 MG/3 ML VIAL.NEB INHALE ×3 (02:29→19:21)
[2024-11-24 03:21] LABS: D Dimer High Sensitivity < 150 NG/ML
[2024-11-24] MEDS: Acetaminophen 325 MG TABLET 650 MG PO (04:55)
--- NOTE | 2024-11-24 04:56 | PC.NURSE ---
assist pt to bathroom, 1 assist with walker and portable O2. pt did well. UA collected and sent. pt resting comfortably in bed on 2L NC 91%. pt requesting tylenol for headache from coughing, pt medicated per MAR
[2024-11-24 04:57] LABS: Appearance Urine Clear; Color Urine Yellow; Glucose Urine UA >=1000 mg/dL (Negative); Leukocyte Esterase Urine Negative (Negative); Nitrite Urine Negative (Negative); PH 5.5 (5.0-9.0); Specific Gravity - Urine 1.025 (1.005-1.025); UMIC TRIGGER UA YES; Urine Blood Negative (Negative); Urine Ketones Trace mg/dL (Negative); Urine Protein Negative (Neg-Trace)
[2024-11-24 04:59] LABS: Bacteria Urine None Seen (None Seen); Hyaline Casts Urine 0-2 /LPF (0-2); RBC Urine 0-2 /HPF (0-2); Squamous Epithelial Cell Urine 0-2 /HPF (0-2); WBC Urine 0-5 /HPF (0-5)
[2024-11-24 05:20] LABS: Basophils Percent Auto 0.4 % (0-2); Hematocrit 42.7 % (37.0-47.0); Hemoglobin 13.7 g/dl (12.0-16.0); Imm Gran Abs Auto 0.03 X10*3/uL (0.00-0.03); Imm Gran Pct Auto 0.6 % (0.0-0.4); Lymphocytes Absolute Auto 0.3 X10*3/uL (1.2-4.9); Lymphocytes Percent Auto 5.7 % (20-40); MANUAL DIFF FLAG SCAN; Mean Corpuscular HGB Conc 32.1 g/dl (31.0-35.0); Mean Corpuscular Hemoglobin 29.7 pg (27.0-33.0); Mean Corpuscular Volume 92.4 fL (80.0-98.0); Mean Platelet Volume 11.3 fL (9.4-12.3); Monocytes Absolute Auto 0.1 X10*3/uL (0.1-1.2); Monocytes Percent Auto 2.6 % (2-11); Neutrophils Absolute Auto 4.5 x10*3/uL (2.0-8.3); Neutrophils Percent Auto 90.7 % (45-73); Platelet Count 189 X10*3/uL (160-400); Red Blood Count 4.62 X10*6/uL (4.20-5.50); Red Cell Distribution Width 14.4 % (11.0-16.0); SCAN SMEAR FLAG 1; White Blood Count 4.9 X10*3/uL (4.8-10.8)
[2024-11-24 05:45] LABS: Alanine Aminotransferase 23 U/L (0-31); Albumin Level 4.3 g/dL (3.5-5.0); Alkaline Phosphatase 46 U/L (39-117); Anion Gap 15 (12-20); Aspartate Amino Transferase 32 U/L (5-31); Bilirubin Total 0.4 mg/dL (0.0-1.0); Blood Urea Nitrogen 11 mg/dL (9-16); Carbon Dioxide 23 mmol/L (22-29); Chloride 111 mmol/L (96-108); Creatinine Clr Calc Pharmacy 84.2; Estimated Glomerular Filt Rate > 60; Glucose Random 213 mg/dL (60-115); Potassium 3.5 mmol/L (3.3-5.1); Sodium 145 mmol/L (135-145); Total Protein 6.5 g/dL (6.5-8.0)
[2024-11-24 05:50] LABS: SLIDE REVIEW VERIFIED
[2024-11-24 05:55] LABS: TSH reflex Free T4 0.72 uIU/mL (0.32-4.0)
[2024-11-24 07:22] LABS: Glucose, Whole Blood 228 mg/dL (60-115)
[2024-11-24] MEDS: Enoxaparin Sodium 40 MG/0.4 ML SYRINGE SUBCUT (07:29)
[2024-11-24] MEDS: Insulin Lispro 100 UNIT/ML 3 ML VIAL SUBCUT ×3 (07:29→18:16)
[2024-11-24] MEDS: levoFLOXacin/D5W 500 MG/100 ML PIGGYBACK 100 MG IV (07:30)
[2024-11-24] MEDS: Doxycycline Hyclate 100 MG in 0.9 % Sodium Chloride 250 ML 166.67 MG IV ×2 (07:30→21:18)
--- NOTE | 2024-11-24 13:09 | PHA.MEDREC ---
Addendum entered by Mayco Kay RPh 11/24/24 14:08: Med rec was reviewed by [facility]. Original Note: Pharmacy Consult ? Medication Reconciliation Pharmacy has completed the medication reconciliation. Spoke to patient to confirm med list. patient is a poor historian. Patient starts she can't remember every medication she takes. Patient did confirm Victoza 1.8 mg , however last fill date was 08/10/24, Insulin aspart is per sliding scale as needed, Insulin Degludec 100units/ml is 44 units daily. Utilized claims and list from [facility] to confirm med list. confirmed with [facility] Actos last fill was for 30 mg.
[2024-11-24 13:25] LABS: Glucose, Whole Blood 231 mg/dL (60-115)
--- NOTE | 2024-11-24 13:31 | PC.NURSE ---
pt requesting home medications/eyedrops. Pharmacy contact and informed hospital does not carry and specific brand. Pt notified she can have someone bring in from home. Pt also c/o cough, prn robitussin given with moderate effect.
--- NOTE | 2024-11-24 13:39 | PM.EVENT ---
Event Note Date of Service: 11/24/24 Event Note: Seen and evaluated this morning Feels little better Still on 3L of O2 with improved bilateral air entry and less wheezing will continue with IV Steroids, Bronchodilator nebulizers and Doxycycline DC Levaquin as no clear Pneumonia and risk of prolonged QTc Incentive spirometry Mucinex Wean O2 down as tolerated Time Spent With Patient Time: Total time managing care of this patient today ____ minutes.
[2024-11-24] MEDS: Gabapentin 600 MG TABLET PO ×2 (14:42→21:18)
[2024-11-24 17:57] LABS: Glucose, Whole Blood 270 mg/dL (60-115)
[2024-11-24 20:05] LABS: Glucose, Whole Blood 149 mg/dL (60-115)
[2024-11-24] MEDS: Mirtazapine 30 MG TABLET PO (21:18)
[2024-11-24] MEDS: Atorvastatin Calcium 40 MG TABLET PO (21:18)
[2024-11-24] MEDS: guaiFENesin LA 600 MG TAB.ER.12H PO (21:19)
[2024-11-24] MEDS: NETARSUDIL LATANOPROST 1 EACH EYE-BOTH (23:50)
[2024-11-25 04:00] VITALS: BP 114/52; PULSE 67; RESP 17; TEMP 36.3; O2SAT 90
[2024-11-25] MEDS: Levothyroxine Sodium 25 MCG TABLET PO (05:52)
[2024-11-25 07:17] VITALS: PULSE 72; RESP 18; O2SAT 97
[2024-11-25] MEDS: levalbuterol HCL 1.25 MG/3 ML VIAL.NEB INHALE ×2 (07:17→19:48)
[2024-11-25 07:26] VITALS: BP 109/46; PULSE 64; RESP 20; TEMP 36.4; O2SAT 96
[2024-11-25 07:43] LABS: Glucose, Whole Blood 177 mg/dL (60-115)
[2024-11-25] MEDS: Insulin Lispro 100 UNIT/ML 3 ML VIAL SUBCUT ×3 (08:35→15:52)
[2024-11-25] MEDS: Enoxaparin Sodium 40 MG/0.4 ML SYRINGE SUBCUT (08:36)
[2024-11-25] MEDS: Doxycycline Hyclate 100 MG in 0.9 % Sodium Chloride 250 ML 166.6 MG IV (08:37)
[2024-11-25] MEDS: ARIPiprazole 20 MG TABLET PO (08:39)
[2024-11-25] MEDS: guaiFENesin LA 600 MG TAB.ER.12H PO ×2 (08:39→21:48)
[2024-11-25] MEDS: Gabapentin 600 MG TABLET PO ×3 (08:39→21:48)
[2024-11-25] MEDS: Empagliflozin 25 MG TABLET PO (08:39)
[2024-11-25] MEDS: Fenofibrate 160 MG TABLET PO (08:39)
[2024-11-25] MEDS: 0.9 % Sodium Chloride Flush 3 ML SYRINGE IVFLUSH ×3 (08:44→21:49)
[2024-11-25 11:12] VITALS: BP 115/48; PULSE 62; RESP 20; TEMP 36.6; O2SAT 92
--- NOTE | 2024-11-25 11:13 | MHC.CM.PN ---
PT REPORTS SHE LIVES ALONE AND REQUIRES ASSISTANCE WITH CARE SHE HAS DAILY VNA FROM [facility] FOR MED MANAGEMENT AND A PRODUCT TESTER M-F SHE USES A WALKER AND CAN TRANSFER INDEPENDENTLY, SHE USES A W/C WHEN GOING TO APPTS SHE ALSO HAS A NEBULIZER AND HOME O2 SHE THINKS [facility] ON FILE PCP: KALA FIERRO [facility]MM DELIVERED DCP: HOME, [facility] BLS TRANSPORT
[2024-11-25 11:31] LABS: Glucose, Whole Blood 221 mg/dL (60-115)
--- NOTE | 2024-11-25 12:28 | HO.PM.IMPN ---
Subjective Subjective Date of Service: 11/25/24 Interval History: seen and evaluated feels little better but still dyspneic and wheezy no othernight events Review of Systems Review of Systems: Yes all other systems are reviewed and are negative Physical Exam Vital Signs: Vital Signs: Last Vital Signs Temp 97.9 F 11/25/24 11:12 Pulse 62 11/25/24 11:12 Resp 20 11/25/24 11:12 BP 115/48 L 11/25/24 11:12 Pulse Ox 92 11/25/24 11:12 O2 Del Method Nasal Cannula 11/25/24 11:12 O2 Flow Rate 2 11/25/24 11:12 BMI result Body Mass Index 31.1 Const: Other: Constitutional : Awake, interactive, not in distress Neck : Normal inspection, Supple Cardiovascular : RRR, no JVP, no lower extremity edema Respiratory : poor bilateral air entry, no crackles, expiratory wheezes bilaterally Gastrointestinal: soft, lax, Normal bowel sounds, Non tender Skin : Warm, Dry Neurological : Alert & oriented x3, No focal deficit Objective Data Active Medications Acetaminophen (Acetaminophen 325 Mg Tablet) 650 mg PO Q6H PRN PRN Reason: Pain, Mild 1-3,fever,headache Last Admin: 11/24/24 04:55 Dose: 650 mg Documented By: SHERINE Aripiprazole (Aripiprazole 20 Mg Tablet) 20 mg PO DAILY [facility] Last Admin: 11/25/24 08:39 Dose: 20 mg Documented By: PASTORA Atorvastatin Calcium (Atorvastatin Calcium 40 Mg Tablet) 40 mg PO BEDTIME [facility] Last Admin: 11/24/24 21:18 Dose: 40 mg Documented By: JULIAN Clonazepam (Clonazepam 0.5 Mg Tablet) 0.5 mg PO BID PRN PRN Reason: Anxiety Dextrose (Dextrose 50 % 25 Gm/50 Ml Syringe) 25 gm IVPUSH Q15M PRN; Protocol PRN Reason: per Hypoglycemia Standing Ord. Empagliflozin (Empagliflozin 25 Mg Tablet) 25 mg PO DAILY [facility] Last Admin: 11/25/24 08:39 Dose: 25 mg Documented By: PASTORA Enoxaparin Sodium (Enoxaparin Sodium 40 Mg/0.4 Ml Syringe) 40 mg SUBCUT Q24H [facility] Last Admin: 11/25/24 08:36 Dose: 40 mg Documented By: PASTORA Fenofibrate (Fenofibrate 160 Mg Tablet) 160 mg PO DAILY [facility] Last Admin: 11/25/24 08:39 Dose: 160 mg Documented By: APSTORA Gabapentin (Gabapentin 600 Mg Tablet) 600 mg PO TID [facility] Last Admin: 11/25/24 08:39 Dose: 600 mg Documented By: PASTORA Glucose (Glucose Gel 15 Gm Gel..Gram.) 15 gm PO Q15M PRN; Protocol PRN Reason: per Hypoglycemia Standing Ord. Guaifenesin (Guaifenesin 200 Mg/10 Ml 10 Ml Liquid) 10 ml PO Q4H PRN PRN Reason: Cough Last Admin: 11/24/24 12:51 Dose: 10 ml Documented By: LYSSA Guaifenesin (Guaifenesin La 600 Mg Tab.Er.12h) 600 mg PO BID [facility] Last Admin: 11/25/24 08:39 Dose: 600 mg Documented By: PASTORA Doxycycline Hyclate 100 mg/ (Sodium Chloride) 250 mls @ 166.67 mls/hr IV BID [facility] Last Infusion: 11/25/24 10:47 Dose: Infused Documented By: PASTORA Insulin Human Lispro (Insulin Lispro 100 Unit/Ml 3 Ml Vial) 0 unit SUBCUT QIDACHS [facility]; Protocol Last Admin: 11/25/24 11:48 Dose: 4 unit Documented By: PASTORA Levalbuterol HCl (Levalbuterol Hcl 1.25 Mg/3 Ml Vial.Neb) 1.25 mg INHALE RTID [facility] Last Admin: 11/25/24 07:17 Dose: 1.25 mg Documented By: NATALIA Levothyroxine Sodium (Levothyroxine Sodium 25 Mcg Tablet) 25 mcg PO DAILY@0600 [facility] Last Admin: 11/25/24 05:52 Dose: 25 mcg Documented By: N-JOZEB Magnesium Hydroxide (Milk Of Magnesia 30 Ml Oral.Susp) 30 ml PO DAILY PRN PRN Reason: Constipation Melatonin (Melatonin 3 Mg Tablet) 6 mg PO BEDTIME PRN PRN Reason: Insomnia Methylprednisolone Sodium Succinate (Methylprednisolone Sod Succ 125 Mg Vial) 60 mg IVPUSH Q12H [facility] Last Admin: 11/25/24 08:36 Dose: 60 mg Documented By: PASTORA Mirtazapine (Mirtazapine 30 Mg Tablet) 30 mg PO BEDTIME [facility] Last Admin: 11/24/24 21:18 Dose: 30 mg Documented By: JULIAN Nicotine (Nicotine 21 Mg Patch.Td24) 21 mg TRANSDERMA DAILY [facility] Last Admin: 11/25/24 08:42 Dose: Not Given Documented By: PASTORA Non-Admin Reason: Patient Refused Pt Own (Brimonidine (0.15 % Drops)) 1 drop EYE-BOTH BID [facility] Last Admin: 11/25/24 08:44 Dose: 1 drop Documented By: PASTORA Pt Own (Netarsudil- Latanoprost [ Rocklatan] 0.02-0. 005 % Drops) 1 drop EYE-BOTH BEDTIME [facility] Last Admin: 11/24/24 23:50 Dose: 1 drop Documented By: JULIAN Ondansetron HCl (Ondansetron Hcl 4 Mg/2 Ml Vial) 4 mg IVPUSH Q8H PRN PRN Reason: Nausea and Vomiting Pioglitazone HCl (Pioglitazone Hcl 30 Mg Tablet) 30 mg PO BEDTIME [facility] Last Admin: 11/24/24 21:19 Dose: Not Given Documented By: JULIAN Non-Admin Reason: Patient Refused Quetiapine Fumarate (Quetiapine Fumarate 50 Mg Tablet) 50 mg PO BID PRN PRN Reason: Anxiety Senna (Sennosides 8.6 Mg Tablet) 17.2 mg PO DAILY [facility] Last Admin: 11/25/24 08:39 Dose: Not Given Documented By: PASTORA Non-Admin Reason: Patient Refused Senna (Sennosides 8.6 Mg Tablet) 17.2 mg PO DAILY [facility] Last Admin: 11/25/24 08:39 Dose: Not Given Documented By: PASTORA Non-Admin Reason: Patient Refused Sodium Chloride (0.9 % Sodium Chloride Flush 3 Ml Syringe) 3 ml IVFLUSH QSHIFT [facility] Last Admin: 11/25/24 08:44 Dose: 3 ml Documented By: PASTORA Labs 11/24/24 04:35 11/24/24 04:35 Labs: Laboratory Results - last 24 hr 11/24/24 11/24/24 11/24/24 13:21 17:48 20:02 POC Glucose 231 H 270 H 149 H 11/25/24 11/25/24 07:25 11:10 POC Glucose 177 H 221 H Microbiology Microbiology Results: Microbiology 11/24/24 07:16 Gram Stain - Final Sputum - Expectorated Sputum Culture - Preliminary Culture in progress. 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 Patient has had 2 days of increasing shortness of breath to the point that patient can no longer lie on her back or side. CT scan of the chest pending noting evidence of history of pulmonary nodules and to rule out pneumonia. COPD exacerbation with acute on chronic respiratory failure Xopenex inhaled t.i.d. Methylprednisolone 60 IV b.i.d., taper Incentive spirometer CT chest showing bilateral atelactasis Supportive care with antitussives obtain sputum culture Tobacco dependence Nicotine patch 21 mcg ordered she does not plan to continue smoking cessation as smoking for her is a social event where she gets to enjoy time with her friends who also smoke. Leukopenia improved Pulmonary nodules CXR reported possible nodules. not seen or reported on CT scan follows with water softener servicer and installer as outpatient Insulin-dependent diabetes mellitus sliding scale insulin diabetic diet Hypothyroidism continue levothyroxine DVT prophylaxis: Lovenox PPI prophylaxis: Omeprazole Full code status Will need overnight stay for treatment of acute on chronic respiratory failure from COPD exacerbation Quality Stroke Does the patient have a stroke diagnosis?: No Reason for No Anti-thrombotic by Day Two: N/A - Med Ordered VTE Prior VTE?: No VTE Risk Level:: Medical - moderate - high VTE Device Contraindication: N/A - Device Ordered VTE Drug Contraindication: N/A - Med Ordered
[2024-11-25 15:21] VITALS: BP 124/58; PULSE 60; RESP 20; TEMP 36.4; O2SAT 94
[2024-11-25 15:44] LABS: Glucose, Whole Blood 213 mg/dL (60-115)
[2024-11-25 20:00] VITALS: BP 144/65; PULSE 56; RESP 16; TEMP 36.1; O2SAT 95
[2024-11-25 20:49] LABS: Glucose, Whole Blood 150 mg/dL (60-115)
[2024-11-25] MEDS: Mirtazapine 30 MG TABLET PO (21:48)
[2024-11-25] MEDS: Doxycycline Hyclate 100 MG in 0.9 % Sodium Chloride 250 ML 166.67 MG IV (21:48)
[2024-11-25] MEDS: Atorvastatin Calcium 40 MG TABLET PO (21:48)
[2024-11-25] MEDS: NETARSUDIL LATANOPROST 1 EACH EYE-BOTH (21:49)
[2024-11-26] VITALS (11 sets, daily range): BP systolic 116–139; BP diastolic 52–85; PULSE 54–81; RESP 16–20; TEMP 36.2–36.6; O2SAT 60–95
[2024-11-26] MEDS: Levothyroxine Sodium 25 MCG TABLET PO (05:51)
[2024-11-26 07:05] LABS: MANUAL DIFF FLAG NO
[2024-11-26 07:11] LABS: Basophils Percent Auto 0.2 % (0-2); Hematocrit 39.7 % (37.0-47.0); Hemoglobin 13.3 g/dl (12.0-16.0); Imm Gran Abs Auto 0.04 X10*3/uL (0.00-0.03); Imm Gran Pct Auto 0.6 % (0.0-0.4); Lymphocytes Absolute Auto 0.7 X10*3/uL (1.2-4.9); Lymphocytes Percent Auto 11.1 % (20-40); Mean Corpuscular HGB Conc 33.5 g/dl (31.0-35.0); Mean Corpuscular Volume 89.4 fL (80.0-98.0); Mean Platelet Volume 10.9 fL (9.4-12.3); Monocytes Absolute Auto 0.3 X10*3/uL (0.1-1.2); Monocytes Percent Auto 4.7 % (2-11); Neutrophils Absolute Auto 5.2 x10*3/uL (2.0-8.3); Neutrophils Percent Auto 83.4 % (45-73); Platelet Count 192 X10*3/uL (160-400); Red Blood Count 4.44 X10*6/uL (4.20-5.50); Red Cell Distribution Width 14.2 % (11.0-16.0); White Blood Count 6.2 X10*3/uL (4.8-10.8)
[2024-11-26 07:26] LABS: Anion Gap 13 (12-20); Blood Urea Nitrogen 21 mg/dL (9-16); Calcium 9.3 mg/dL (8.4-10.2); Carbon Dioxide 31 mmol/L (22-29); Chloride 105 mmol/L (96-108); Creatinine Clr Calc Pharmacy 80.4; Estimated Glomerular Filt Rate > 60; Glucose Random 151 mg/dL (60-115); Potassium 4.6 mmol/L (3.3-5.1); Sodium 144 mmol/L (135-145)
[2024-11-26 08:04] LABS: Glucose, Whole Blood 151 mg/dL (60-115)
[2024-11-26] MEDS: levalbuterol HCL 1.25 MG/3 ML VIAL.NEB INHALE ×3 (08:12→19:00)
[2024-11-26] MEDS: Insulin Lispro 100 UNIT/ML 3 ML VIAL SUBCUT ×4 (08:45→21:11)
[2024-11-26] MEDS: 0.9 % Sodium Chloride Flush 3 ML SYRINGE IVFLUSH ×3 (08:46→21:16)
[2024-11-26] MEDS: ARIPiprazole 20 MG TABLET PO (08:47)
[2024-11-26] MEDS: Doxycycline Hyclate 100 MG in 0.9 % Sodium Chloride 250 ML 166.67 MG IV ×2 (08:47→21:22)
[2024-11-26] MEDS: Gabapentin 600 MG TABLET PO ×3 (08:48→21:11)
[2024-11-26] MEDS: guaiFENesin LA 600 MG TAB.ER.12H PO ×2 (08:48→21:10)
[2024-11-26] MEDS: Fenofibrate 160 MG TABLET PO (08:48)
[2024-11-26] MEDS: Empagliflozin 25 MG TABLET PO (08:48)
[2024-11-26] MEDS: Enoxaparin Sodium 40 MG/0.4 ML SYRINGE SUBCUT (08:50)
[2024-11-26 11:59] LABS: Glucose, Whole Blood 200 mg/dL (60-115)
[2024-11-26 15:53] LABS: Glucose, Whole Blood 253 mg/dL (60-115)
--- NOTE | 2024-11-26 16:07 | P.PNIM_ITS ---
Subjective Subjective Date of Service: 11/26/24 Interval History: seen and evaluated improving slowly still dyspneic and wheezy no overnight events Review of Systems Review of Systems: Yes all other systems are reviewed and are negative Physical Exam 2 Vital Signs: Vital Signs: Last Vital Signs Temp 97.7 F 11/26/24 12:00 Pulse 60 11/26/24 14:15 Resp 20 11/26/24 14:15 BP 120/85 11/26/24 12:00 Pulse Ox 90 L 11/26/24 12:00 O2 Del Method Room Air 11/26/24 12:00 O2 Flow Rate 1 11/26/24 08:00 BMI result Body Mass Index 31.1 Const: Other: Constitutional : Awake, interactive, not in distress Neck : Normal inspection, Supple Cardiovascular : RRR, no JVP, no lower extremity edema Respiratory : poor bilateral air entry, no crackles, expiratory wheezes bilaterally Gastrointestinal: soft, lax, Normal bowel sounds, Non tender Skin : Warm, Dry Neurological : Alert & oriented x3, No focal deficit Objective Data Active Medications Acetaminophen (Acetaminophen 325 Mg Tablet) 650 mg PO Q6H PRN PRN Reason: Pain, Mild 1-3,fever,headache Last Admin: 11/24/24 04:55 Dose: 650 mg Documented By: SHERINE Aripiprazole (Aripiprazole 20 Mg Tablet) 20 mg PO DAILY [facility] Last Admin: 11/26/24 08:47 Dose: 20 mg Documented By: OSCAR Atorvastatin Calcium (Atorvastatin Calcium 40 Mg Tablet) 40 mg PO BEDTIME [facility] Last Admin: 11/25/24 21:48 Dose: 40 mg Documented By: DEBBIE Clonazepam (Clonazepam 0.5 Mg Tablet) 0.5 mg PO BID PRN PRN Reason: Anxiety Dextrose (Dextrose 50 % 25 Gm/50 Ml Syringe) 25 gm IVPUSH Q15M PRN; Protocol PRN Reason: per Hypoglycemia Standing Ord. Empagliflozin (Empagliflozin 25 Mg Tablet) 25 mg PO DAILY [facility] Last Admin: 11/26/24 08:48 Dose: 25 mg Documented By: OSCAR Enoxaparin Sodium (Enoxaparin Sodium 40 Mg/0.4 Ml Syringe) 40 mg SUBCUT Q24H [facility] Last Admin: 11/26/24 08:50 Dose: 40 mg Documented By: OSCAR Fenofibrate (Fenofibrate 160 Mg Tablet) 160 mg PO DAILY [facility] Last Admin: 11/26/24 08:48 Dose: 160 mg Documented By: OSCAR Gabapentin (Gabapentin 600 Mg Tablet) 600 mg PO TID [facility] Last Admin: 11/26/24 15:07 Dose: 600 mg Documented By: OSCAR Glucose (Glucose Gel 15 Gm Gel..Gram.) 15 gm PO Q15M PRN; Protocol PRN Reason: per Hypoglycemia Standing Ord. Guaifenesin (Guaifenesin 200 Mg/10 Ml 10 Ml Liquid) 10 ml PO Q4H PRN PRN Reason: Cough Last Admin: 11/24/24 12:51 Dose: 10 ml Documented By: LYSSA Guaifenesin (Guaifenesin La 600 Mg Tab.Er.12h) 600 mg PO BID [facility] Last Admin: 11/26/24 08:48 Dose: 600 mg Documented By: OSCAR Doxycycline Hyclate 100 mg/ (Sodium Chloride) 250 mls @ 166.67 mls/hr IV BID [facility] Last Infusion: 11/26/24 10:23 Dose: Infused Documented By: OSCAR Insulin Human Lispro (Insulin Lispro 100 Unit/Ml 3 Ml Vial) 0 unit SUBCUT QIDACHS [facility]; Protocol Last Admin: 11/26/24 12:09 Dose: 2 unit Documented By: OSCAR Levalbuterol HCl (Levalbuterol Hcl 1.25 Mg/3 Ml Vial.Neb) 1.25 mg INHALE RTID [facility] Last Admin: 11/26/24 14:13 Dose: 1.25 mg Documented By: HELENA Levothyroxine Sodium (Levothyroxine Sodium 25 Mcg Tablet) 25 mcg PO DAILY@0600 [facility] Last Admin: 11/26/24 05:51 Dose: 25 mcg Documented By: DEBBIE Magnesium Hydroxide (Milk Of Magnesia 30 Ml Oral.Susp) 30 ml PO DAILY PRN PRN Reason: Constipation Melatonin (Melatonin 3 Mg Tablet) 6 mg PO BEDTIME PRN PRN Reason: Insomnia Methylprednisolone Sodium Succinate (Methylprednisolone Sod Succ 125 Mg Vial) 60 mg IVPUSH Q12H [facility] Last Admin: 11/26/24 08:46 Dose: 60 mg Documented By: OSCAR Mirtazapine (Mirtazapine 30 Mg Tablet) 30 mg PO BEDTIME [facility] Last Admin: 11/25/24 21:48 Dose: 30 mg Documented By: DEBBIE Nicotine (Nicotine 21 Mg Patch.Td24) 21 mg TRANSDERMA DAILY [facility] Last Admin: 11/26/24 08:49 Dose: Not Given Documented By: OSCAR Non-Admin Reason: Patient Refused Pt Own (Brimonidine (0.15 % Drops)) 1 drop EYE-BOTH BID [facility] Last Admin: 11/26/24 08:47 Dose: 1 drop Documented By: OSCAR Pt Own (Netarsudil- Latanoprost [ Rocklatan] 0.02-0. 005 % Drops) 1 drop EYE- BOTH BEDTIME [facility] Last Admin: 11/25/24 21:49 Dose: 1 drop Documented By: DEBBIE Ondansetron HCl (Ondansetron Hcl 4 Mg/2 Ml Vial) 4 mg IVPUSH Q8H PRN PRN Reason: Nausea and Vomiting Pioglitazone HCl (Pioglitazone Hcl 30 Mg Tablet) 30 mg PO DAILY [facility] Quetiapine Fumarate (Quetiapine Fumarate 50 Mg Tablet) 50 mg PO BID PRN PRN Reason: Anxiety Senna (Sennosides 8.6 Mg Tablet) 17.2 mg PO DAILY [facility] Last Admin: 11/26/24 08:48 Dose: Not Given Documented By: OSCAR Non-Admin Reason: Patient Refused Senna (Sennosides 8.6 Mg Tablet) 17.2 mg PO DAILY [facility] Last Admin: 11/26/24 08:49 Dose: Not Given Documented By: OSCAR Non-Admin Reason: Duplicate Order Sodium Chloride (0.9 % Sodium Chloride Flush 3 Ml Syringe) 3 ml IVFLUSH QSHIFT [facility] Last Admin: 11/26/24 15:08 Dose: 3 ml Documented By: OSCAR Labs 11/26/24 06:27 11/26/24 06:27 Labs: Laboratory Results - last 24 hr 11/25/24 11/26/24 11/26/24 20:46 06:27 07:49 MCV 89.4 MCH 30.0 MCHC 33.5 RDW 14.2 Plt Count 192 MPV 10.9 Immature Gran % (Auto) 0.6 H Neut % (Auto) 83.4 H Lymph % (Auto) 11.1 L Knox % (Auto) 4.7 Eos % (Auto) 0.0 Baso % (Auto) 0.2 Lymph # (Auto) 0.7 L Knox # (Auto) 0.3 Eos # (Auto) 0.0 Baso # (Auto) 0.0 Abs Immat Gran (auto) 0.04 H Absolute Neuts (auto) 5.2 Absolute Nucleated RBC 0.000 Nucleated RBC % (auto) 0.0 Anion Gap 13 Estim Creat Clear Calc 80.4 Estimated GFR > 60 POC Glucose 150 H 151 H Random Glucose 151 H Calcium 9.3 11/26/24 11/26/24 11:42 15:33 MCV MCH MCHC RDW Plt Count MPV Immature Gran % (Auto) Neut % (Auto) Lymph % (Auto) Knox % (Auto) Eos % (Auto) Baso % (Auto) Lymph # (Auto) Knox # (Auto) Eos # (Auto) Baso # (Auto) Abs Immat Gran (auto) Absolute Neuts (auto) Absolute Nucleated RBC Nucleated RBC % (auto) Anion Gap Estim Creat Clear Calc Estimated GFR POC Glucose 200 H 253 H Random Glucose Calcium Microbiology Microbiology Results: Microbiology 11/24/24 07:16 Gram Stain - Final Sputum - Expectorated Sputum Culture - Final Assessment and Plan (1) Acute on chronic hypoxic respiratory failure: Status: Acute (2) Tobacco dependence: Status: Acute Plan Patient is a 74-year-old female with 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 Patient has had 2 days of increasing shortness of breath to the point that patient can no longer lie on her back or side. CT scan of the chest pending noting evidence of history of pulmonary nodules and to rule out pneumonia. COPD exacerbation with acute on chronic respiratory failure slowly improving CT chest showing bilateral atelactasis Xopenex inhaled t.i.d. Methylprednisolone 60 IV b.i.d., taper Incentive spirometer Supportive care with antitussives obtain sputum culture Tobacco dependence Nicotine patch 21 mcg ordered she does not plan to continue smoking cessation as smoking for her is a social event where she gets to enjoy time with her friends who also smoke. Leukopenia improved Pulmonary nodules CXR reported possible nodules. 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
[2024-11-26] MEDS: Pioglitazone HCL 30 MG TABLET PO (17:11)
[2024-11-26 20:20] LABS: Glucose, Whole Blood 211 mg/dL (60-115)
[2024-11-26] MEDS: Mirtazapine 30 MG TABLET PO (21:10)
[2024-11-26] MEDS: Atorvastatin Calcium 40 MG TABLET PO (21:10)
[2024-11-26] MEDS: NETARSUDIL LATANOPROST 1 EACH EYE-BOTH (21:15)
[2024-11-27 03:57] VITALS: BP 116/47; PULSE 57; RESP 16; TEMP 36.8; O2SAT 100
[2024-11-27] MEDS: Levothyroxine Sodium 25 MCG TABLET PO (05:42)
[2024-11-27 06:40] LABS: MANUAL DIFF FLAG NO
[2024-11-27 06:45] LABS: Basophils Percent Auto 0.2 % (0-2); Hematocrit 40.2 % (37.0-47.0); Hemoglobin 13.3 g/dl (12.0-16.0); Imm Gran Abs Auto 0.02 X10*3/uL (0.00-0.03); Imm Gran Pct Auto 0.3 % (0.0-0.4); Lymphocytes Absolute Auto 0.8 X10*3/uL (1.2-4.9); Lymphocytes Percent Auto 12.6 % (20-40); Mean Corpuscular HGB Conc 33.1 g/dl (31.0-35.0); Mean Corpuscular Hemoglobin 29.6 pg (27.0-33.0); Mean Corpuscular Volume 89.3 fL (80.0-98.0); Mean Platelet Volume 10.7 fL (9.4-12.3); Monocytes Absolute Auto 0.3 X10*3/uL (0.1-1.2); Neutrophils Absolute Auto 4.9 x10*3/uL (2.0-8.3); Neutrophils Percent Auto 81.9 % (45-73); Platelet Count 191 X10*3/uL (160-400)
[2024-11-27 07:00] LABS: Anion Gap 12 (12-20); Blood Urea Nitrogen 25 mg/dL (9-16); Calcium 9.2 mg/dL (8.4-10.2); Carbon Dioxide 30 mmol/L (22-29); Chloride 104 mmol/L (96-108); Creatinine Clr Calc Pharmacy 75.8; Estimated Glomerular Filt Rate > 60; Glucose Random 175 mg/dL (60-115); Potassium 4.5 mmol/L (3.3-5.1); Sodium 141 mmol/L (135-145)
[2024-11-27 07:24] VITALS: BP 148/67; PULSE 47; RESP 16; TEMP 37.1; O2SAT 95
[2024-11-27 07:31] LABS: Glucose, Whole Blood 166 mg/dL (60-115)
[2024-11-27] MEDS: Doxycycline Hyclate 100 MG in 0.9 % Sodium Chloride 250 ML 166.67 MG IV (07:35)
[2024-11-27] MEDS: guaiFENesin LA 600 MG TAB.ER.12H PO ×2 (07:40→21:17)
[2024-11-27] MEDS: 0.9 % Sodium Chloride Flush 3 ML SYRINGE IVFLUSH ×2 (07:40→16:04)
[2024-11-27] MEDS: Insulin Lispro 100 UNIT/ML 3 ML VIAL SUBCUT ×3 (07:40→16:04)
[2024-11-27] MEDS: Fenofibrate 160 MG TABLET PO (07:41)
[2024-11-27] MEDS: ARIPiprazole 20 MG TABLET PO (07:41)
[2024-11-27] MEDS: Empagliflozin 25 MG TABLET PO (07:41)
[2024-11-27] MEDS: Pioglitazone HCL 30 MG TABLET PO (07:41)
[2024-11-27] MEDS: Sennosides 8.6 MG TABLET 17.2 MG PO (07:41)
[2024-11-27] MEDS: Enoxaparin Sodium 40 MG/0.4 ML SYRINGE SUBCUT (07:41)
[2024-11-27] MEDS: levalbuterol HCL 1.25 MG/3 ML VIAL.NEB INHALE ×2 (07:42→19:47)
--- NOTE | 2024-11-27 11:03 | P.PNIM_ITS ---
Subjective Subjective Date of Service: 11/27/24 Interval History: seen and evaluated improving slowly still dyspneic and wheezy, drops to 84% with minimal exertion while on O2 no overnight events Review of Systems Review of Systems: Yes all other systems are reviewed and are negative Physical Exam 2 Vital Signs: Vital Signs: Last Vital Signs Temp 98.8 F 11/27/24 07:24 Pulse 47 L 11/27/24 07:24 Resp 16 11/27/24 07:24 BP 148/67 H 11/27/24 07:24 Pulse Ox 95 11/27/24 07:24 O2 Del Method Nasal Cannula 11/27/24 07:24 O2 Flow Rate 2 11/27/24 07:24 BMI result Body Mass Index 31.1 Const: Other: Constitutional : Awake, interactive, not in distress Neck : Normal inspection, Supple Cardiovascular : RRR, no JVP, no lower extremity edema Respiratory : poor bilateral air entry, no crackles, expiratory wheezes bilaterally, On O2 supplement Gastrointestinal: soft, lax, Normal bowel sounds, Non tender Skin : Warm, Dry Neurological : Alert & oriented x3, No focal deficit Objective Data Active Medications Acetaminophen (Acetaminophen 325 Mg Tablet) 650 mg PO Q6H PRN PRN Reason: Pain, Mild 1-3,fever,headache Last Admin: 11/24/24 04:55 Dose: 650 mg Documented By: SHERINE Aripiprazole (Aripiprazole 20 Mg Tablet) 20 mg PO DAILY [facility] Last Admin: 11/27/24 07:41 Dose: 20 mg Documented By: GIO Atorvastatin Calcium (Atorvastatin Calcium 40 Mg Tablet) 40 mg PO BEDTIME [facility] Last Admin: 11/26/24 21:10 Dose: 40 mg Documented By: PAULINO Clonazepam (Clonazepam 0.5 Mg Tablet) 0.5 mg PO BID PRN PRN Reason: Anxiety Dextrose (Dextrose 50 % 25 Gm/50 Ml Syringe) 25 gm IVPUSH Q15M PRN; Protocol PRN Reason: per Hypoglycemia Standing Ord. Doxycycline Monohydrate (Doxycycline Monohydrate 100 Mg Capsule) 100 mg PO Q12H [facility] Empagliflozin (Empagliflozin 25 Mg Tablet) 25 mg PO DAILY [facility] Last Admin: 11/27/24 07:41 Dose: 25 mg Documented By: GIO Enoxaparin Sodium (Enoxaparin Sodium 40 Mg/0.4 Ml Syringe) 40 mg SUBCUT Q24H [facility] Last Admin: 11/27/24 07:41 Dose: 40 mg Documented By: GIO Fenofibrate (Fenofibrate 160 Mg Tablet) 160 mg PO DAILY [facility] Last Admin: 11/27/24 07:41 Dose: 160 mg Documented By: GIO Gabapentin (Gabapentin 600 Mg Tablet) 600 mg PO TID [facility] Last Admin: 11/27/24 07:42 Dose: Not Given Documented By: GIO Non-Admin Reason: Patient Refused Glucose (Glucose Gel 15 Gm Gel..Gram.) 15 gm PO Q15M PRN; Protocol PRN Reason: per Hypoglycemia Standing Ord. Guaifenesin (Guaifenesin 200 Mg/10 Ml 10 Ml Liquid) 10 ml PO Q4H PRN PRN Reason: Cough Last Admin: 11/24/24 12:51 Dose: 10 ml Documented By: LYSSA Guaifenesin (Guaifenesin La 600 Mg Tab.Er.12h) 600 mg PO BID [facility] Last Admin: 11/27/24 07:40 Dose: 600 mg Documented By: GIO Insulin Human Lispro (Insulin Lispro 100 Unit/Ml 3 Ml Vial) 0 unit SUBCUT QIDACHS [facility]; Protocol Last Admin: 11/27/24 07:40 Dose: 2 unit Documented By: GIO Levalbuterol HCl (Levalbuterol Hcl 1.25 Mg/3 Ml Vial.Neb) 1.25 mg INHALE RTID [facility] Last Admin: 11/27/24 07:42 Dose: 1.25 mg Documented By: OCTAVIO Levothyroxine Sodium (Levothyroxine Sodium 25 Mcg Tablet) 25 mcg PO DAILY@0600 [facility] Last Admin: 11/27/24 05:42 Dose: 25 mcg Documented By: PAULINO Magnesium Hydroxide (Milk Of Magnesia 30 Ml Oral.Susp) 30 ml PO DAILY PRN PRN Reason: Constipation Melatonin (Melatonin 3 Mg Tablet) 6 mg PO BEDTIME PRN PRN Reason: Insomnia Methylprednisolone Sodium Succinate (Methylprednisolone Sod Succ 125 Mg Vial) 60 mg IVPUSH Q12H [facility] Last Admin: 11/27/24 07:41 Dose: 60 mg Documented By: GIO Mirtazapine (Mirtazapine 30 Mg Tablet) 30 mg PO BEDTIME [facility] Last Admin: 11/26/24 21:10 Dose: 30 mg Documented By: PAULINO Nicotine (Nicotine 21 Mg Patch.Td24) 21 mg TRANSDERMA DAILY [facility] Last Admin: 11/27/24 07:42 Dose: Not Given Documented By: GIO Non-Admin Reason: Patient Refused Pt Own (Brimonidine (0.15 % Drops)) 1 drop EYE-BOTH BID [facility] Last Admin: 11/27/24 09:08 Dose: 1 drop Documented By: GIO Pt Own (Netarsudil- Latanoprost [ Rocklatan] 0.02-0. 005 % Drops) 1 drop EYE- BOTH BEDTIME [facility] Last Admin: 11/26/24 21:15 Dose: 1 drop Documented By: PAULINO Ondansetron HCl (Ondansetron Hcl 4 Mg/2 Ml Vial) 4 mg IVPUSH Q8H PRN PRN Reason: Nausea and Vomiting Pioglitazone HCl (Pioglitazone Hcl 30 Mg Tablet) 30 mg PO DAILY [facility] Last Admin: 11/27/24 07:41 Dose: 30 mg Documented By: GIO Quetiapine Fumarate (Quetiapine Fumarate 50 Mg Tablet) 50 mg PO BID PRN PRN Reason: Anxiety Senna (Sennosides 8.6 Mg Tablet) 17.2 mg PO DAILY [facility] Last Admin: 11/27/24 07:41 Dose: 17.2 mg Documented By: GIO Senna (Sennosides 8.6 Mg Tablet) 17.2 mg PO DAILY [facility] Last Admin: 11/27/24 07:47 Dose: Not Given Documented By: GIO Non-Admin Reason: Duplicate Order Sodium Chloride (0.9 % Sodium Chloride Flush 3 Ml Syringe) 3 ml IVFLUSH QSHIFT [facility] Last Admin: 11/27/24 07:40 Dose: 3 ml Documented By: GIO Labs 11/27/24 06:33 11/27/24 06:33 Labs: Laboratory Results - last 24 hr 11/26/24 11/26/24 11/26/24 11:42 15:33 20:17 MCV MCH MCHC RDW Plt Count MPV Immature Gran % (Auto) Neut % (Auto) Lymph % (Auto) [place] % (Auto) Eos % (Auto) Baso % (Auto) Lymph # (Auto) [place] # (Auto) Eos # (Auto) Baso # (Auto) Abs Immat Gran (auto) Absolute Neuts (auto) Absolute Nucleated RBC Nucleated RBC % (auto) Anion Gap Estim Creat Clear Calc Estimated GFR POC Glucose 200 H 253 H 211 H Random Glucose Calcium 11/27/24 11/27/24 06:33 07:24 MCV 89.3 MCH 29.6 MCHC 33.1 RDW 14.0 Plt Count 191 MPV 10.7 Immature Gran % (Auto) 0.3 Neut % (Auto) 81.9 H Lymph % (Auto) 12.6 L [place] % (Auto) 5.0 Eos % (Auto) 0.0 Baso % (Auto) 0.2 Lymph # (Auto) 0.8 L [place] # (Auto) 0.3 Eos # (Auto) 0.0 Baso # (Auto) 0.0 Abs Immat Gran (auto) 0.02 Absolute Neuts (auto) 4.9 Absolute Nucleated RBC 0.000 Nucleated RBC % (auto) 0.0 Anion Gap 12 Estim Creat Clear Calc 75.8 Estimated GFR > 60 POC Glucose 166 H Random Glucose 175 H Calcium 9.2 Microbiology Microbiology Results: Microbiology 11/24/24 07:16 Gram Stain - Final Sputum - Expectorated Sputum Culture - Final Assessment and Plan (1) Acute on chronic hypoxic respiratory failure: Status: Acute (2) Tobacco dependence: Status: Acute (3) Acute exacerbation of chronic obstructive pulmonary disease: Status: Acute Plan Patient is a 74-year-old female with 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 Patient has had 2 days of increasing shortness of breath to the point that patient can no longer lie on her back or side. CT scan of the chest pending noting evidence of history of pulmonary nodules and to rule out pneumonia. COPD exacerbation with acute on chronic respiratory failure slowly improving CT chest showing bilateral atelactasis Xopenex inhaled t.i.d. Methylprednisolone 60 IV b.i.d., taper as tolerated Incentive spirometer Supportive care with antitussives obtain sputum culture Tobacco dependence Nicotine patch 21 mcg ordered she does not plan to continue smoking cessation as smoking for her is a social event where she gets to enjoy time with her friends who also smoke. Leukopenia improved Pulmonary nodules CXR reported possible nodules. 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
[2024-11-27 11:21] VITALS: BP 117/56; PULSE 57; RESP 16; TEMP 36.1; O2SAT 92
[2024-11-27 11:27] LABS: Glucose, Whole Blood 264 mg/dL (60-115)
[2024-11-27 15:08] VITALS: BP 122/57; PULSE 55; RESP 20; TEMP 36.3; O2SAT 92
[2024-11-27 15:25] LABS: Glucose, Whole Blood 185 mg/dL (60-115)
[2024-11-27 19:47] VITALS: PULSE 54; RESP 20; O2SAT 96
[2024-11-27 20:00] VITALS: BP 132/60; PULSE 54; RESP 16; TEMP 36; O2SAT 98
[2024-11-27] MEDS: Atorvastatin Calcium 40 MG TABLET PO (21:10)
[2024-11-27] MEDS: NETARSUDIL LATANOPROST 1 EACH EYE-BOTH (21:10)
[2024-11-27] MEDS: Mirtazapine 30 MG TABLET PO (21:10)
[2024-11-27] MEDS: Doxycycline Monohydrate 100 MG CAPSULE PO (21:10)
[2024-11-27 21:22] LABS: Glucose, Whole Blood 149 mg/dL (60-115)
[2024-11-28] VITALS: BP 122/60; PULSE 56; RESP 18; TEMP 36.3; O2SAT 93
[2024-11-28 03:13] VITALS: BP 131/63; PULSE 58; RESP 18; TEMP 36.4; O2SAT 90
[2024-11-28] MEDS: Levothyroxine Sodium 25 MCG TABLET PO (06:11)
[2024-11-28 07:21] VITALS: BP 133/56; PULSE 57; RESP 16; TEMP 36.4; O2SAT 91
[2024-11-28] MEDS: levalbuterol HCL 1.25 MG/3 ML VIAL.NEB INHALE (07:34)
[2024-11-28 07:36] VITALS: PULSE 50; RESP 16; O2SAT 89
[2024-11-28 07:37] LABS: Glucose, Whole Blood 163 mg/dL (60-115)
[2024-11-28] MEDS: Insulin Lispro 100 UNIT/ML 3 ML VIAL SUBCUT ×2 (08:31→11:56)
[2024-11-28] MEDS: 0.9 % Sodium Chloride Flush 3 ML SYRINGE IVFLUSH (08:31)
[2024-11-28] MEDS: Pioglitazone HCL 30 MG TABLET PO (08:32)
[2024-11-28] MEDS: guaiFENesin LA 600 MG TAB.ER.12H PO (08:32)
[2024-11-28] MEDS: Doxycycline Monohydrate 100 MG CAPSULE PO (08:32)
[2024-11-28] MEDS: Empagliflozin 25 MG TABLET PO (08:33)
[2024-11-28] MEDS: ARIPiprazole 20 MG TABLET PO (08:33)
[2024-11-28] MEDS: Fenofibrate 160 MG TABLET PO (08:33)
[2024-11-28] MEDS: Gabapentin 600 MG TABLET PO (08:33)
[2024-11-28] MEDS: clonazePAM 0.5 MG TABLET PO (08:36)
[2024-11-28 11:13] LABS: Glucose, Whole Blood 217 mg/dL (60-115)
[2024-11-28 11:51] VITALS: BP 123/48; PULSE 60; RESP 18; TEMP 36.2; O2SAT 92
--- NOTE | 2024-11-28 11:54 | MHC.CM.PN ---
Addendum entered by Sally Huff RN 11/28/24 14:08: PT REPORTS SHE WILL DECLINE PORTABLE O2 TANKS AND WILL ONLY USE CONCENTRATOR AT HOME UNTIL SHE CAN GET INOGEN. Addendum entered by Sally Huff RN 11/28/24 14:06: PT REQUESTING TO DC SOONER THAN 4PM, [facility] ABLE TO TRANSPORT AT 3PM BOOKING ID#[id number]. CM MET W/PT AND TO DISCUSS INOGEN, PER RESPIRATORY PT WILL NEED TO CONTACT DME DEPT AT [facility] TO REQUEST INOGEN PORTABLE CONCENTRATOR, PT VERBALIZES UNDERSTANDING AND WILL CALL. Original Note: IMM 11/28/24 DELIVERED TO BEDSIDE, PT ANXIOUS TO DC HOME, PT WILL HAVE NEW CONT O2 1L AT REST AND 3L W/ACTIVITY, RESPIRATORY HAS UPDATED [facility] (PT ACTIVE W/O2 AT [facility]), [facility] AND [facility], [facility] FOR TRANSPORT AT 4PM.
--- NOTE | 2024-11-28 12:43 | P.DS_ITS ---
DS: Providers Provider Date of Service: 11/28/24 Date of admission: 11/24/24 01:32 Date of discharge: 11/28/24 Primary care physician: Chiquis Grajeda MD Consults: 11/27/24 11:54 Consult to Cardiology Routine Consulting Provider: [facility] [place] [facility] Reason for consultation: Frequent symptomatic bradycardia events. 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 Patient reports productive cough but sputum is white in presentation. Patient could no longer lie on her back or side. Patient normally only uses oxygen at night and as needed during the day. Patient continues to smoke 1.5 packs per day. Patient was told by her [facility] nurse to report to the emergency room. EMS notes patient's pulse ox was 76%. Patient placed on 4 L nasal cannula. Patient reported no fever but had mild chills. Patient currently denies any chest pain, shortness of breath at rest, abdominal pain, nausea or vomiting. Patient is not having a headache or new visual changes. Patient reports she is almost blind in her left eye due to macular degeneration. Patient denies any recent falls or trauma. Patient did have mild diarrhea in the morning that has since resolved. Patient denies any recent travel or being exposed to anyone with an upper respiratory illness. Patient states she is up-to-date on her vaccinations for flu, COVID and RSV. Viral studies were negative today. In the emergency room patient received methylprednisolone 125 IV x1, breathing treatments and remains on 3-4 L nasal cannula. Patient has not been started on antibiotics at this point. Patient follows with a senior mechanical design engineer and is being monitored for pulmonary nodules that are concerning. Patient is due for an upcoming CT scan but that will be ordered today as chest x-ray is inconclusive for pneumonia or any type of acute respiratory issue. Patient has noted leukopenia. Patient does not use nebulizers at home. Patient does not present with a fever. Hospital course # COPD exacerbation with acute on chronic respiratory failure. CT chest showing bilateral atelactasis. Treated with Xopenex inhaled t.i.d. Methylprednisolone 60 IV b.i.d., Incentive spirometer and Supportive care with antitussives with good response as she was weaned down to 2L. She is supposed to be on 2L all the time but she denies that. To be discharged home on tapering dose Prednisone along with Doxycycline and O2 supplement. # Tobacco dependence. Nicotine patch 21 mcg ordered. she does not plan to continue smoking cessation as smoking for her is a social event where she gets to enjoy time with her friends who also smoke. # Pulmonary nodules. CXR reported possible nodules. not seen or reported on CT scan. follows with senior mechanical design engineer as outpatient Discharge plan Prednisone taper dose Nicotine patches Cough medicaiton Use home inhaler as prescribed You need Oxygen supplement 2L with ambulation and at rest Time Attestation Discharge Coordination Time (in mins): 38 Quality: Safe Use of Opioids Does Pt have an Active Cancer Diagnosis on the Problem List?: No Quality: Stroke Does the patient have a stroke diagnosis?: No Physical Exam Vital Signs: Vital Signs: Last Vital Signs Temp 97.2 F 11/28/24 11:51 Pulse 60 11/28/24 11:51 Resp 18 11/28/24 11:51 BP 123/48 L 11/28/24 11:51 Pulse Ox 92 11/28/24 11:51 O2 Del Method Nasal Cannula 11/28/24 11:51 O2 Flow Rate 2 11/28/24 11:51 BMI result Body Mass Index 31.1 Const: Other: Constitutional : Awake, interactive, not in distress Neck : Normal inspection, Supple Cardiovascular : RRR, no JVP, no lower extremity edema Respiratory : good bilateral air entry, no crackles, no wheezes bilaterally, On O2 supplement Gastrointestinal: soft, lax, Normal bowel sounds, Non tender Skin : Warm, Dry Neurological : Alert & oriented x3, No focal deficit DS: Data Data Completed and Pending Labs on day of discharge: Laboratory Results - last 24 hr 11/27/24 11/27/24 11/28/24 15:15 21:17 07:19 POC Glucose 185 H 149 H 163 H 11/28/24 11:05 POC Glucose 217 H Imaging Chest x-ray: Radiologist's impression: CT chest IMPRESSION: Bilateral basilar subsegmental atelectasis or infiltrates. Discharge Plan Discharge Anticipated Discharge Date/Time: 11/28/24 12:37 Patient Disposition: Home Health Service Discharge Diagnosis: COPD exacerbation Referrals: [facility] [Outside] - 1 Day ([facility] MED [facility]NA[facility]) Po,Chiquis Sanchez MD [Primary Care Provider] - 1 Week Discharge Medications: New doxycycline monohydrate 100 mg Capsule 100 mg PO Q12H Qty: 10 0RF nicotine 21 mg/24 hr Patch 24 Hour 21 mg transdermal DAILY Qty: 28 0RF guaifenesin [Mucinex] 600 mg Tablet Extended Release 12hr 600 mg PO BID Qty: 20 0RF prednisone 10 mg tablet See Taper PO DIRECTED Qty: 30 0RF Taper: Prednisone 40 mg daily for 3 Days and 0 Hour 30 mg daily for 3 Days and 0 Hour 20 mg daily for 3 Days and 0 Hour 10 mg daily for 3 Days and 0 Hour Rx Instructions: see taper instructions Continued (DME) new lift chair See Rx Instructions .Route .MEDSUPPLY Qty: 1 0RF Rx Instructions: As directed (DME) easy on sock aid See Rx Instructions .Route .MEDSUPPLY Qty: 1 0RF Rx Instructions: As directed (DME) dressing stick See Rx Instructions .Route .MEDSUPPLY Qty: 1 0RF Rx Instructions: As directed (DME) WHEELCHAIR See Rx Instructions .Route .MEDSUPPLY Qty: 1 0RF Rx Instructions: As directed (DME) Transfer wheelchair See Rx Instructions .Route .MEDSUPPLY Qty: 1 0RF Rx Instructions: As directed (DME) pen needle, diabetic [Comfort EZ Pen [place]] 32 gauge x 5/16 needle See Rx Instructions .Route Qty: 100 4RF Rx Instructions: As directed injects 3 X/day albuterol sulfate 90 mcg/actuation HFA aerosol inhaler 2 puff inhalation Q4H PRN (Reason: Shortness Of Breath) 60 Days Qty: 8.5 2RF fexofenadine 180 mg tablet 180 mg PO DAILY Qty: 90 3RF (DME) Shower Chair Misc See Rx Instructions .Route Qty: 1 0RF Rx Instructions: As directed cyanocobalamin (vitamin B-12) [Vitamin B-12] 500 mcg tablet 500 mcg PO DAILY 90 Days Qty: 90 0RF cholecalciferol (vitamin D3) 50 mcg (2,000 unit) tablet 50 mcg PO BEDTIME Qty: 90 0RF atorvastatin 40 mg tablet 40 mg PO BEDTIME Qty: 90 3RF gabapentin 600 mg tablet 600 mg PO TID 30 Days Qty: 90 2RF esomeprazole magnesium 40 mg capsule,delayed release(DR/EC) 40 mg PO DAILY@0630 Qty: 28 0RF fenofibrate 160 mg tablet 160 mg PO DAILY Qty: 30 0RF quetiapine 25 mg tablet 50 mg PO BID PRN (Reason: Anxiety) clonazepam 0.5 mg tablet 0.5 mg PO BID PRN (Reason: Anxiety) Rocklatan 0.02-0.005 % drops 1 drp ophthalmic (eye) BEDTIME acetaminophen 500 mg tablet 1,000 mg PO TID PRN (Reason: pain) Qty: 42 1RF aripiprazole 20 mg tablet 20 mg PO DAILY PreserVision AREDS-2 250-90-40-1 mg capsule 1 cap PO BID pioglitazone [Actos] 30 mg tablet 30 mg PO BEDTIME Jardiance 25 mg tablet 25 mg PO DAILY brimonidine 0.15 % drops 1 drp ophthalmic (eye) BID sennosides [senna] 8.6 mg tablet 17.2 mg PO DAILY insulin degludec [Tresiba FlexTouch U-100] 100 unit/mL (3 mL) insulin pen 44 unit subcut DAILY Qty: 45 3RF (DME) FreeStyle Jill 2 Sensor Kit See Rx Instructions .ROUTE .MEDSUPPLY Qty: 6 3RF Rx Instructions: As directed Victoza 3-Jeanmarie 0.6 mg/0.1 mL (18 mg/3 mL) pen injector 1.8 mg subcut DAILY 90 Days Qty: 27 11RF levothyroxine 25 mcg tablet 25 mcg PO DAILY@0600 Qty: 90 3RF mirtazapine 30 mg tablet 30 mg PO BEDTIME insulin aspart U-100 [Novolog FlexPen U-100 Insulin] 100 unit/mL (3 mL) insulin pen See Rx Instructions subcut TID PRN (Reason: Hyperglycemia) Qty: 30 6RF Rx Instructions: Novolog sliding scale 3 times daily with breakfast and lunch (200-250: 6 units, 251-300: 8 units, 301 - 350: 10 units, >350: 12 units) Novolog sliding scale with dinner (150-199: 6 units, 200-250: 8 units, 251- 300 10 units, 301-350: 12 units, >350 take 14 units) Max daily dosing/24 hours 38 units Discharge Orders: Discharge Order (Routine); Ordered 11/28/24 Ordered By: Lionel Martinez Diet: Low salt diet Activity on Discharge: As tolerated Stand Alone Forms: Patient Portal Discharge page Print Language: Kazakh Care Plan Goals: Prednisone taper dose Nicotine patches Cough medicaiton Use home inhaler as prescribed You need Oxygen supplement 2L with ambulation and at rest Health Concerns: COPD Plan of Treatment: Steroids Inhalers Assessment: as above
[2024-11-28 12:57] VITALS: PULSE 77; PULSE 80; PULSE 84; PULSE 92; O2SAT 83; O2SAT 88; O2SAT 90
== END 2024-11-28 15:22 | disposition home health service (06) | DRG 190 ==
LOC: HO.ED 11-24 01:29 → HO.EDOVER 11-24 01:39 → HO.IMC 11-24 16:57
PROVIDERS: Admitting Provider Nurse Practitioner Family; Emergency Provider Emergency Medicine; PCP Internal Medicine; Visit Provider Student in an Organized Health Care Education/Training Program
DX: J44.1 Chronic obstructive pulmonary disease with (acute) exacerbation (principal); J96.21 Acute and chronic respiratory failure with hypoxia; J98.11 Atelectasis; E03.9 Hypothyroidism, unspecified; Z99.81 Dependence on supplemental oxygen; Z20.822 Contact with and (suspected) exposure to COVID-19; F17.210 Nicotine dependence, cigarettes, uncomplicated; Z71.6 Tobacco abuse counseling; Z79.4 Long term (current) use of insulin; Z79.890 Hormone replacement therapy; Z79.899 Other long term (current) drug therapy
CPT/HCPCS: 0241U; 36415; 71046; 71250; 80048; 80053; 81001; 82947; 83036; 83690; 83880; 84443; 84484; 85025; 85379; 87070; 87205; 93005; 94640; 99285; J1271; J1650; J1956; J2919; J3475

== ENCOUNTER → 2024-11-23 23:57 | Outpatient (BNV) | payer OTHER, SELFPAY | PROVIDERS: Admitting Provider Nurse Practitioner Family; Emergency Provider Emergency Medicine; PCP Internal Medicine; Visit Provider Internal Medicine Cardiovascular Disease | DX: R06.00 Dyspnea, unspecified (principal) | CPT/HCPCS: 93010 ==

== ENCOUNTER → 2024-11-24 01:32 | Outpatient (BNV) | payer OTHER, SELFPAY | PROVIDERS: Admitting Provider Nurse Practitioner Family; Emergency Provider Emergency Medicine; PCP Internal Medicine; Visit Provider Nurse Practitioner Family | DX: J96.21 Acute and chronic respiratory failure with hypoxia (principal); F17.200 Nicotine dependence, unspecified, uncomplicated | CPT/HCPCS: 99223; 99232; 99239; 99499 ==

== ENCOUNTER → 2024-11-24 | Outpatient (BNV) | payer OTHER, SELFPAY | PROVIDERS: Emergency Provider Emergency Medicine; Visit Provider Student in an Organized Health Care Education/Training Program | DX: J98.11 Atelectasis (principal) | CPT/HCPCS: 71046; 71250 ==

== ENCOUNTER 2024-12-06 15:36 | Outpatient (AMB) | payer OTHER, SELFPAY ==
--- NOTE | 2024-12-06 15:53 | MHC.PC.OV ---
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: No Accompanied by: Self / Same As Patient Allergies aspirin [ASPIRIN] Allergy (Severe, Verified 12/06/24 15:54) GI bleed, stomach upset ibuprofen [IBUPROFEN] Allergy (Severe, Verified 12/06/24 15:54) GI Bleed, stomach upset valsartan [From Diovan] Allergy (Severe, Verified 12/06/24 15:54) hives ziprasidone [From Geodon] Allergy (Severe, Verified 12/06/24 15:54) RASH-PALPITATIONS azithromycin Allergy (Intermediate, Verified 12/06/24 15:54) facial swelling metformin [METFORMIN] Allergy (Intermediate, Verified 12/06/24 15:54) NAUSEA & VOMITING, GI upset cephalexin [From KEFLEX] Allergy (Unknown, Verified 12/06/24 15:54) can't remember lisinopril Allergy (Unknown, Verified 12/06/24 15:54) cough NSAIDS (Non-Steroidal Anti-Inflamma [NSAIDS (NON-STEROIDAL ANTI-INFLAMMA] Adverse Reaction (Severe, Verified 12/06/24 15:54) HX OF GI BLEED tramadol [Ultram] Adverse Reaction (Severe, Verified 12/06/24 15:54) GI upset sulfamethoxazole [From Bactrim] Adverse Reaction (Intermediate, Verified 12/06/24 15:54) Hives tiotropium [From Spiriva with HandiHaler] Adverse Reaction (Intermediate, Verified 12/06/24 15:54) Unknown trimethoprim [From Bactrim] Adverse Reaction (Intermediate, Verified 12/06/24 15:54) Hives doxycycline Adverse Reaction (Mild, Verified 12/06/24 15:54) Stomach Upset Medication List - Last Reconciled 12/06/24 by Barbara Draper PA-C acetaminophen 1,000 mg (2 x 500 mg) PO TID PRN albuterol sulfate 90 mcg/actuation 2 puffs inhalation Q4H PRN 60 days aripiprazole 20 mg PO DAILY atorvastatin 40 mg PO BEDTIME brimonidine 0.15% 1 drp ophthalmic (eye) BID cholecalciferol (vitamin D3) 50 mcg PO BEDTIME clonazepam 0.5 mg PO BID PRN cyanocobalamin (vitamin B-12) (Vitamin B-12) 500 mcg PO DAILY 90 days doxycycline monohydrate 100 mg PO Q12H [dressing stick As directed] [easy on sock aid As directed] empagliflozin (Jardiance) 25 mg PO DAILY esomeprazole magnesium 40 mg PO DAILY@0630 fenofibrate 160 mg PO DAILY fexofenadine 180 mg PO DAILY flash glucose sensor (FreeStyle Jill 2 Sensor kit) As directed gabapentin 600 mg PO TID 30 days guaifenesin ER (Mucinex) 600 mg PO BID insulin aspart U-100 (Novolog FlexPen U-100 Insulin aspart) Novolog sliding scale 3 times daily with breakfast and lunch (200-250: 6 units, 251-300: 8 units, 301 - 350: 10 units, >350: 12 units) Novolog sliding scale with dinner (150-199: 6 units, 200-250: 8 units, 251-300 10 units, 301-350: 12 units, >350 take 14 units) Max daily dosing/24 hours 38 units insulin degludec (Tresiba FlexTouch U-100 insulin) 44 units (0.44 mL) subcut DAILY levothyroxine 25 mcg PO DAILY@0600 liraglutide (Victoza 3-Jeanmarie) 1.8 mg (0.3 mL) subcut DAILY 90 days mirtazapine 30 mg PO BEDTIME netarsudil-latanoprost 0.02-0.005 % ([facility]) 1 drp ophthalmic (eye) BEDTIME [new lift chair As directed] nicotine 21 mg transdermal DAILY pen needle, diabetic (Comfort EZ Pen [place]) As directed injects 3 X/day pioglitazone (Actos) 30 mg PO BEDTIME prednisone See Taper mg PO DIRECTED quetiapine 50 mg PO BID PRN sennosides (senna) 17.2 mg PO DAILY Shower Chair As directed [Transfer wheelchair As directed] vit C,X-So-rfzxm-lutein-zeaxan 250-90-40-1 mg (PreserVision AREDS-2) 1 cap PO BID [WHEELCHAIR As directed] Tobacco use date assessed: 12/06/24 Fall risk assessment: No Falls in past year Last assessed Fall Risk: 12/06/24 Dental Screening Dental Screen Date: 12/06/24 Did you have a dental visit in the last 12 months?: Yes Did you have a dental problem in the last 6 months where you did not have access to dental care?: No Was dental information given to patient?: Patient has dentist HPI [facility] 12/24 for Lt.Eye Macular hole HPI Details 74 year old female with past history of osteopenia, depression, hyperlipidemia, COPD, GERD, diabetes mellitus, and macular degeneration last seen by Dr. Grajeda coming in for pre-op visit. Patient is scheduled to have left eye Vitrectomy using MAC anesthesia. Diabetes mellitus: Last A1c 7.7% currently on Victoza, Pioglitazone, Jardiance and insulin. Tobacco use: patient is working on Stoke back but is still a current cigarette user. Patient has had anesthesia and surgery without complication in the past. Patient has no history of OK, CVA or CHF. [facility] Medical History Tobacco dependence Hypothyroid Macular degeneration Acute exacerbation of chronic obstructive pulmonary disease (COPD) Dermatitis of vulva Uses wheelchair Wears dentures Supplemental oxygen dependent Slow to wake up after anesthesia Lumbar spinal stenosis Smoker Nicotine dependence, cigarettes, uncomplicated Acute respiratory failure with hypoxia Vulvar ulcer Recurrent major depression-severe Lower extremity pain Sialoadenitis Jaw pain العلي (dyspnea on exertion) Chest pain Osteopenia (~2015) Sinus tachycardia Pulmonary nodule Menopausal state Artificial menopause state Constipation Nocturnal hypoxemia COPD (chronic obstructive pulmonary disease) Spinal stenosis Depression Vitamin D deficiency Multinodular thyroid HLD (hyperlipidemia) T2DM (type 2 diabetes mellitus) (~2008) Surgical History History of cataract surgery S/P thyroid biopsy History of lithotripsy History of cardiac catheterization Hx of colonoscopy Hx of arthroscopy of left knee Hx of spinal fusion Hx of cholecystectomy Family History Father No problems noted. Mother Cancer Diabetes Social History Household Members: None Housing: Apartment Are you a primary healthcare consultant to a significant other at home: No Do you presently have visiting nurse or other home services: Yes Alcohol intake: never Comment: aware of trip hazard Patient Tobacco Use Status: Current everyday Tobacco user Smoking Start Date: 04/01/1964 Tobacco use type: Cigar Cigarette Packs Per Day: 1 Cigarettes Per Day: 20 Years Smoked: 60 e-Cigarette/Vaping Use: Currently Using Second Hand Smoke Exposure: No Advance Directives Date on File: 12/02/22 service: No Current occupational status: retired Sexual orientation: Straight/Heterosexual Cognitive needs: No Hearing needs: No Vision needs: Yes Female Reproductive History Menstrual Age of Menarche: 12 Questionnaire PHQ-9 Over the last 2 weeks, how often have you been bothered by any of the following problems? 1. Little interest or pleasure in doing things: not at all 2. Feeling down, depressed, or hopeless: not at all 3. Trouble falling or staying asleep, or sleeping too much: not at all 4. Feeling tired or having little energy: not at all 5. Poor appetite or overeating: not at all 6. Feeling bad about yourself - or that you are a failure or have let yourself or your family down: not at all 7. Trouble concentrating on things, such as reading the newspaper or watching television: not at all 8. Moving or speaking so slowly that other people could have noticed. Or the opposite - being so fidgety or restless that you have been moving around a lot more than usual: not at all 9. Thoughts that you would be better off or of hurting yourself in some way: not at all Total score: 0 Depression Screening Interpretation: Negative Depression Screening Done: Yes Source: Developed by Drs. Masoud Gomez, Desi Mabry, George Cates and colleagues, with an educational zoila from [employer]. Thrive Questionnaire Date Thrive assessed: 12/06/24 I am a: Patient What is your living situation today?: I have a steady place to live Within the past 12 months, did the food you bought not last and you didn't have the money to get more?: Never true Within the past 12 months, did you worry whether your food would run out before you got money to buy more?: Never true Do you have trouble paying for medicines?: No Do you have trouble getting transportation to medical appointments?: No Do you have trouble paying your heating and electricity bill?: No Do you have trouble taking care of your child, family member or friend?: No Do you have trouble with day-to-day activities such as bathing, preparing meals, shopping, managing finances, etc.?: No Are you currently unemployed and looking for a job?: No Are you interested in more education?: No Please select the resources that you would like help with: None Currently or been in a relationship where the following occur: No concerns reported THRIVE Score: 0 AUDIT C Alcohol Use Questionnaire (AUDIT-C) 1. How often do you have a drink containing alcohol?: Never 3. How often do you have six or more drinks on one occasion?: Never Total Score: 0 GABRIELE-7 AMB Questionnaire GABRIELE-7 Date GABRIELE - 7 assessed: 12/06/24 Feeling nervous, anxious, or on edge: 0 = Not at all Not being able to stop or control worryin = Not at all Worrying too much about different things: 0 = Not at all Trouble relaxin = Not at all Being so restless that it is hard to sit still: 0 = Not at all Becoming easily annoyed or irritable: 0 = Not at all Feeling afraid as if something awful might happen: 0 = Not at all Total GABRIELE-7 score (0-4 normal; 5-9 mild; 10-14 moderate; 15-21 severe): 0 Source: Developed by Drs. Masoud Gomez, Desi Mabry, George Cates and colleagues, with an educational zoila from [employer]. Review of Systems Const Denies body aches, Denies chills, Denies fever(s), Denies headache(s) and Denies poor appetite Eyes Reports no additional complaints ENT Denies dysphagia, Denies dizziness, Denies headache(s) and Denies odynophagia Card Denies chest pain, Denies syncope, Denies edema, Denies irregular heart rhythm, Denies lightheadedness and Denies dyspnea Resp Denies cough and Denies dyspnea GI Denies abdominal pain, Denies constipation, Denies dysphagia, Denies diarrhea, Denies nausea, Denies odynophagia and Denies vomiting Reports no additional complaints Musc Reports no additional complaints and Denies abnormal gait Skin/Breast Reports system reviewed and no additional complaints, except as documented Neuro Denies abnormal gait, Denies dizziness, Denies syncope and Denies headache(s) Psych Reports no additional complaints Physical exam (Primary Care) Vital Signs: Last Vital Signs Pulse 80 12/06/24 16:18 BP 126/80 12/06/24 16:18 Pulse Ox 92 12/06/24 16:18 Oxygen Delivery Method Room Air 12/06/24 16:18 BMI result Body Mass Index 30.8 Tobacco/Smoking Status: Tobacco use Status Tobacco use date assessed 12/06/24 12/06/24 15:58 Patient Tobacco Use Status Current everyday Tobacco 12/06/24 15:58 Tobacco use type Cigar 12/06/24 15:58 e-Cigarette/Vaping Use Currently Using 12/06/24 15:58 PHQ-9: PHQ-9 Score PHQ-9: Total score 0 12/06/24 16:21 Depression Screening Interpretation: Negative Thrive Assessment: Date of Thrive Assessment Date Thrive assessed 12/06/24 12/06/24 15:58 Currently or been in a relationship where the following occur: No concerns reported Const General: cooperative, healthy appearing, comfortable and no acute distress Orientation/consciousness: patient oriented x3 HENMT Head: Yes normocephalic Ears: hearing grossly normal bilaterally General nose exam: Normal external nose present Eyes General: appearance normal, both eyes and all related structures Conjunctivae: conjunctivae normal Neck Neck: Yes full ROM and Yes no lymphadenopathy Resp Effort & Inspection: normal respiratory effort Auscultation: clear to auscultation bilaterally, no crackles, no rales, no rhonchi and no wheezes Cardio Rate: regular rate Rhythm: regular rhythm Skin General skin exam: no rashes or lesions noted Neuro General: patient oriented x3 Gait exam (Neuro): Normal gait present Extrem General: Yes normal to inspection, Yes full ROM and No edema Psych Affect: normal affect Attitude: cooperative Insight: Good insight present (Psych) Judgement: Good judgement present (Psych) Coding Level of Care Code Est Pt Level 3 (87428) Diagnoses Pre-op evaluation Z01.818 Assessment & Plan Assessment & Plan (1) Pre-op evaluation: Code(s): Z01.818 - Encounter for other preprocedural examination Category: Medical Plan: Regarding preop clearance, the patient is at moderate risk for proposed surgery due to age and comorbidities. Reviewed with the patient that no surgery is completely free of risk and that this examination is to assist the surgeon in reviewing informed consent. Patient is strongly advised to seen from the use of cigarettes. Discussed her elevated A1c they contributes to delayed wound healing and risk of infection. Given the A1c is less than 8% this is still acceptable for surgical clearance. Advised patient to hold the Jardiance 3 days prior to surgery. Victoza needs to be held 1 week prior to surgery as well. All other medications may be taken as prescribed up until the day with the procedure and resumed after the procedure has been completed. EKG and blood work evaluated. No further workup needed at this time and may proceed with the contemplated procedure. Thank you very much for letting me participate in the care of this patient Medications: Discontinued doxycycline monohydrate Discontinued Reason: Patient no longer taking 100 mg PO Q12H 10 caps 0RF
[2024-12-06 16:18] VITALS: BP 126/80; PULSE 80; O2SAT 92; BMI 30.8
--- OUTSIDE RECORDS SUMMARY | 2024-12-06 18:03 | XMS_ITS | Clinical Summary ---
Author Organization 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 Name Role Phone Chiquis Grajeda MD Primary Care Provider [phone] Allergies Active Allergy Reactions Criticality Noted Date Comments Aspirin GI Intolerance/Nausea/Vomiting Low 07/20 Azithromycin Swelling Medium 07/20/2023 Ziprasidone Rash/Dermatitis Low 07/20/2023 Ibuprofen GI Intolerance/Nausea/Vomiting Low 07/20 Cephalexin Unknown/Patient and Family Unable to Define Medium 07/20/2023 Lisinopril Cough Low 07/20/2023 Metformin GI Intolerance/Nausea/Vomiting Low 07/20 Tramadol GI Intolerance/Nausea/Vomiting Low 07/20 Valsartan Hives Medium 07/20/2023 Medications ARIPiprazole (ABILIFY) 20 MG tablet Take 1 [...] (9 mg total) by mouth nightly. Active Netarsudil-Latano prost (Rocklatan) 0.02-0.005 % Solution Administer 1 drop [...] day. Active nicotine (NICODERM CQ) 21 MG/24HR patchIndications: Nicotine dependence, uncomplicated, unspecified nicotine product type Place 1 patch on the skin daily. 30 patch 4 Active senna-docusate (SENNA-S) 8.6-50 MGIndications:Spi nal stenosis of lumbar region, unspecified whether neurogenic claudication present Take 2 tablets by mouth nightly. 60 tablet 4 Active tiZANidine (ZANAFLEX) 4 MG tabletIndications :Spinal stenosis of lumbar region, unspecified whether neurogenic claudication present Take 1 tablet (4 mg total) by mouth every 8 (eight) hours around the clock. 90 tablet Active oxyCODONE (ROXICODONE) 5 MG immediate release tabletIndications :Spinal stenosis of lumbar region, unspecified whether neurogenic claudication present Take 1 tablet (5 mg total) by mouth every 4 (four) hours as needed for moderate pain. Max Daily Amount: 30 mg 24 tablet 4 Active Active Problems Problem Noted Date Diagnosed [...] Date Recorded PHQ-2 Total Score 0 07/21/2023 Comments Unknown Sex and Gender Information Value Date Recorded Sex Assigned at Female 07/21/2023 12:31 AM EST Legal Sex Female 7:09 PM EST Gender Identity Female 07/21/2023 12:31 AM [...] and older) 10/21/2015 Hemoglobin A1C 01/19/2024 07/21/2023 COVID-19 Vaccine ( - season) 2024 Creatinine with GFR 07/25/2024 07/25/2023, 07/24/2023, 07/23/2023, Additional history exists Influenza Vaccine 01/25/2025 Hepatitis B Vaccines Aged Out No long [...] - 99 mg/dL 07/25/2023 8:26 AM EST [facility] Comment:Fasting: <100 mg/dL, Non-Fasting: <200 mg/dL (ADA 2005) Blood Urea Nitrogen (BUN) 12 8 - 21 mg/dL 07/25/2023 8:26 AM EST [facility] Creatinine 0.6 0.4 - 1.1 mg/dL 07/25/2023 8:26 AM [facility] eGFR >90 >59 07/25/2023 8:26 AM [facility] Comment:CKD-EPI (2020) in mL /min/1.73 sq meters. Sodium 142 136 - 145 mmol/L 07/25/2023 8:26 AM [facility] Potassium 4.0 3.4 - 5.3 mmol/L 07/25/2023 8:26 AM [facility] Chloride 103 98 - 107 mmol/L 07/25/2023 8:26 AM [facility] CO2 25 22 - 33 mmol/L 07/25/2023 8:26 AM [facility] Calcium 9.3 8.7 - 10.5 mg/dL 07/25/2023 8:26 AM [facility] Alkaline Phosphatase 62 32 - 122 U/L 07/25/2023 8:26 AM [facility] Aspartate Aminotrans (AST) 57(H) 10 - 50 U/L 07/25/2023 8:26 AM [facility] Alanine Aminotrans (ALT) 36 10 - 50 U/L 07/25/2023 8:26 AM [facility] Bilirubin, Total 0.6 0.2 - 1.0 mg/dL 07/25/2023 8:26 AM [facility] Protein, Total 5.8(L) 6.3 - 8.3 g/dL 07/25/2023 8:26 AM [facility] Albumin 3.4 3.4 - 4.8 g/dL 07/25/2023 8:26 AM [facility] BUN/Creatinine Ratio 20 10.0 - 25.0 Ratio 07/25/2023 8:26 AM [facility] Globulin 2.4 1.5 - 3.9 g/dL 07/25/2023 8:26 AM [facility] Albumin/Globulin Ratio 1.4 1.0 - 3.0 Ratio 07/25/2023 8:26 AM [facility] Anion Gap 14 7 - 17 07/25/2023 8:26 AM [facility] Blood specimen (specimen) (Plasma/Serum) 07/25/2023 6:49 AM EST 07/25/2023 6:56 AM EST us Mary Mason DO LAB BLOOD ORDERABLES Final Resul t Performing Organization Address City/[facility] Co de Phone Number [address] [address], [address] [address] * (ABNORMAL) HEMOGLOBIN A1C WITH ESTIMATED AVERAGE GLUCOSE (07/21/2023 1:11 AM EST) Hemoglobin A1C 7.0(H) <5.7 % 07/21/2023 1:42 PM [facility] Comment: A1c% ? Interpretation 5.7 - 6.0 ?Increase risk of diabetes 6.1 - 6.4 ?Higher risk of diabetes > or = 6.5 ?? Consistent with diabetes Diabetes Care, 33(Supp 1):S1-S61, 2010 Estimated Average Glucose 154 mg/dL 07/21/2023 1:42 PM [facility] Blood specimen / Unknown 07/21/2023 1:11 AM EST 07/21/2023 1:59 AM EST Bernie Tony DO LAB BLOOD ORDERABLES Final Result Performing Organization Address [facility] Co de Phone Number [address] [address], [place] [address] from Last 3 Months or Most Recently Relevant to Health Maintenance Insurance MEDICARE PART A & B MEDICAID OUT OF STATE [facility] MEDICARE PART A & B Member Subscriber Plan / Payer ( fective 2023-Present) Name:Sofiya Rivas Member ID:[id number] Relation to Subscriber:Self Name:Sofiya Rivas Subscriber ID:[id number] Payer ID:[id number] Group ID:Not on file Type:Not on file Address: [facility] [phone]IC[address] OUT OF NETWORK Advance Directives * DNR (Latest Code Status on File) Date Activated Date Inactivated Comments 07/21/2023 5:56 PM DNR/ DNI Question Answer Comments Decision thoroughly discussed with: Patient * Full Code Date Activated Date Inactivated Comments 07/21/2023 6:54 AM 07/21/2023 5:56 PM Care Teams Plywood And Veneer Repairer Relationship Specialty Start Date End Date Chiquis Grajeda MD [address] [place] [address] Dr Tapia, RUBI [address] PCP - General Internal Medicine 07/21/23
== END 2024-12-06 16:44 | disposition home or self-care (01) ==
LOC: HO.HMCH 15:37
PROVIDERS: PCP Internal Medicine
DX: Z01.818 Encounter for other preprocedural examination (principal)

== ENCOUNTER → 2024-12-06 15:36 | Outpatient (BNVA) | payer OTHER, SELFPAY | PROVIDERS: PCP Internal Medicine | DX: Z01.818 Encounter for other preprocedural examination (principal); M85.80 Other specified disorders of bone density and structure, unspecified site; F32.A Depression, unspecified; E78.5 Hyperlipidemia, unspecified; J44.9 Chronic obstructive pulmonary disease, unspecified; K21.9 Gastro-esophageal reflux disease without esophagitis; E11.9 Type 2 diabetes mellitus without complications | CPT/HCPCS: 96127; 99212 ==

== ENCOUNTER 2024-12-14 13:24 | Outpatient (AMB) | payer OTHER, SELFPAY ==
[2024-12-14 13:41] VITALS: BP 124/70; PULSE 77; O2SAT 95
--- NOTE | 2024-12-14 13:41 | MHC.PC.OV ---
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: No Accompanied by: Self / Same As Patient Allergies aspirin (ASPIRIN) Allergy (Severe, Verified 12/14/24 13:42) GI bleed, stomach upset ibuprofen (IBUPROFEN) Allergy (Severe, Verified 12/14/24 13:42) GI Bleed, stomach upset valsartan (From Diovan) Allergy (Severe, Verified 12/14/24 13:42) hives ziprasidone (From Geodon) Allergy (Severe, Verified 12/14/24 13:42) RASH-PALPITATIONS azithromycin Allergy (Intermediate, Verified 12/14/24 13:42) facial swelling metformin (METFORMIN) Allergy (Intermediate, Verified 12/14/24 13:42) NAUSEA & VOMITING, GI upset cephalexin (From KEFLEX) Allergy (Unknown, Verified 12/14/24 13:42) can't remember lisinopril Allergy (Unknown, Verified 12/14/24 13:42) cough NSAIDS (Non-Steroidal Anti-Inflamma (NSAIDS (NON-STEROIDAL ANTI-INFLAMMA) Adverse Reaction (Severe, Verified 12/14/24 13:42) HX OF GI BLEED tramadol (Ultram) Adverse Reaction (Severe, Verified 12/14/24 13:42) GI upset sulfamethoxazole (From Bactrim) Adverse Reaction (Intermediate, Verified 12/14/24 13:42) Hives tiotropium (From Spiriva with HandiHaler) Adverse Reaction (Intermediate, Verified 12/14/24 13:42) Unknown trimethoprim (From Bactrim) Adverse Reaction (Intermediate, Verified 12/14/24 13:42) Hives doxycycline Adverse Reaction (Mild, Verified 12/14/24 13:42) Stomach Upset Tobacco use date assessed: 12/06/24 Dental Screening Dental Screen Date: 12/06/24 HPI TCM TCM Information Date of Discharge 11/28/24 Discharged From [facility] Interactive Contact Date (Reference documentation from this date) 11/29/24 HPI Comments History of Present Illness Details 74 y/o Female patient who presents to the clinic today for HDF. 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 She was [place] [facility] [place] - 11/28 for an evaluation and treatment of COPD exacerbation with acute on chronic respiratory failure. CT chest showing bilateral Atelactasis. Oxygen supplement 2L with ambulation and at rest. Pt has a follow up visit with Pulmonology 12/18 [facility] Medical History Tobacco dependence Hypothyroid Macular degeneration Acute exacerbation of chronic obstructive pulmonary disease (COPD) Dermatitis of vulva Uses wheelchair Wears dentures Supplemental oxygen dependent Slow to wake up after anesthesia Lumbar spinal stenosis Smoker Nicotine dependence, cigarettes, uncomplicated Acute respiratory failure with hypoxia Vulvar ulcer Recurrent major depression-severe Lower extremity pain Sialoadenitis Jaw pain العلي (dyspnea on exertion) Chest pain Osteopenia (~2015) Sinus tachycardia Pulmonary nodule Menopausal state Artificial menopause state Constipation Nocturnal hypoxemia COPD (chronic obstructive pulmonary disease) Spinal stenosis Depression Vitamin D deficiency Multinodular thyroid HLD (hyperlipidemia) T2DM (type 2 diabetes mellitus) (~2008) Surgical History History of cataract surgery S/P thyroid biopsy History of lithotripsy History of cardiac catheterization Hx of colonoscopy Hx of arthroscopy of left knee Hx of spinal fusion Hx of cholecystectomy Family History Father No problems noted. Mother Cancer Diabetes Social History Household Members: None Housing: Apartment Are you a primary health care social worker to a significant other at home: No Do you presently have visiting nurse or other home services: Yes Alcohol intake: never Comment: aware of trip hazard Patient Tobacco Use Status: Current everyday Tobacco user Smoking Start Date: 04/01/1964 Tobacco use type: Cigar Cigarette Packs Per Day: 1 Cigarettes Per Day: 20 Years Smoked: 60 Packs Per Year: 60 Packs per year/per ci.00 e-Cigarette/Vaping Use: Currently Using Second Hand Smoke Exposure: No Advance Directives Date on File: 12/02/22 service: No Current occupational status: retired Sexual orientation: Straight/Heterosexual Cognitive needs: No Hearing needs: No Vision needs: Yes Female Reproductive History Menstrual Age of Menarche: 12 Questionnaire Thrive Questionnaire Date Thrive assessed: 12/06/24 GABRIELE-7 AMB Questionnaire GABRIELE-7 Date GABRIELE - 7 assessed: 12/06/24 Source: Developed by Drs. Masoud Gomez, Desi Mabry, George Cates and colleagues, with an educational zoila from [employer]. Review of Systems Const All systems reviewed & are unremarkable except as noted in HPI and below Physical exam (Primary Care) Vital Signs: Last Vital Signs Pulse 77 12/14/24 13:41 BP 124/70 12/14/24 13:41 Pulse Ox 95 12/14/24 13:41 Oxygen Delivery Method Room Air 12/14/24 13:41 Tobacco/Smoking Status: Tobacco use Status Tobacco use date assessed 12/06/24 12/14/24 13:44 Patient Tobacco Use Status Current everyday Tobacco 12/14/24 13:44 Tobacco use type Cigar 12/14/24 13:44 e-Cigarette/Vaping Use Currently Using 12/14/24 13:44 Thrive Assessment: Date of Thrive Assessment Date Thrive assessed 12/06/24 12/14/24 13:44 Const General: no acute distress Nutritional Appearance: overweight Orientation/consciousness: patient oriented x3 Resp Effort & Inspection: normal respiratory effort and able to speak in complete sentences Auscultation: clear to auscultation bilaterally, no crackles, no rales, no rhonchi and no wheezes Cardio Heart sounds: S1 normal heart sound present and S2 normal heart sound present Neuro General: patient oriented x3 Coding Level of Care Code Est Pt Level 4 (18292) Diagnoses Acute exacerbation of chronic obstructive pulmonary disease (COPD) J44.1 Time Spent (min) 20 Assessment & Plan Assessment & Plan (1) Acute exacerbation of chronic obstructive pulmonary disease (COPD): Code(s): J44.1 - Chronic obstructive pulmonary disease with (acute) exacerbation Category: Medical Plan: Managed by Pulmonology
== END 2024-12-14 14:20 | disposition home or self-care (01) ==
LOC: HO.HMCH 13:25
PROVIDERS: PCP Internal Medicine; Visit Provider Nurse Practitioner Family
DX: J44.1 Chronic obstructive pulmonary disease with (acute) exacerbation (principal)

== ENCOUNTER → 2024-12-14 13:24 | Outpatient (BNVA) | payer OTHER, SELFPAY | PROVIDERS: PCP Internal Medicine; Visit Provider Nurse Practitioner Family | DX: J44.1 Chronic obstructive pulmonary disease with (acute) exacerbation (principal); J43.9 Emphysema, unspecified; E11.40 Type 2 diabetes mellitus with diabetic neuropathy, unspecified; E03.9 Hypothyroidism, unspecified; E55.9 Vitamin D deficiency, unspecified; E78.5 Hyperlipidemia, unspecified; F17.210 Nicotine dependence, cigarettes, uncomplicated; Z99.81 Dependence on supplemental oxygen; Z79.4 Long term (current) use of insulin | CPT/HCPCS: 99212 ==

== ENCOUNTER 2024-12-18 09:51 | Outpatient (AMB) | payer OTHER, SELFPAY ==
[2024-12-18 09:53] VITALS: BP 104/60; PULSE 75; O2SAT 95
--- NOTE | 2024-12-18 09:53 | MHC.OFFVIS ---
Vital Signs 12/18/24 09:53 Height 5 ft 5 in BMI Reason not done Patient refused/unable BP 104/60 Blood Pressure Location Lt brachial Position Sitting Pulse 75 Pulse Source Pulse Oximeter Pulse Oximetry (%) 95 Oxygen Delivery Method Nasal Cannula Oxygen Flow Rate 2 Intake Visit Reasons: COPD Intake Note: pt is here for follow up and was in the hospital and is now using his oxygen in the home and at night, but she would like a poc trial, [facility] oxyen. [place] Sheriff Required: No Allergies aspirin (ASPIRIN) Allergy (Severe, Verified 12/18/24 10:17) GI bleed, stomach upset ibuprofen (IBUPROFEN) Allergy (Severe, Verified 12/18/24 10:17) GI Bleed, stomach upset valsartan (From Diovan) Allergy (Severe, Verified 12/18/24 10:17) hives ziprasidone (From Geodon) Allergy (Severe, Verified 12/18/24 10:17) RASH-PALPITATIONS azithromycin Allergy (Intermediate, Verified 12/18/24 10:17) facial swelling metformin (METFORMIN) Allergy (Intermediate, Verified 12/18/24 10:17) NAUSEA & VOMITING, GI upset cephalexin (From KEFLEX) Allergy (Unknown, Verified 12/18/24 10:17) can't remember lisinopril Allergy (Unknown, Verified 12/18/24 10:17) cough NSAIDS (Non-Steroidal Anti-Inflamma (NSAIDS (NON-STEROIDAL ANTI-INFLAMMA) Adverse Reaction (Severe, Verified 12/18/24 10:17) HX OF GI BLEED tramadol (Ultram) Adverse Reaction (Severe, Verified 12/18/24 10:17) GI upset sulfamethoxazole (From Bactrim) Adverse Reaction (Intermediate, Verified 12/18/24 10:17) Hives tiotropium (From Spiriva with HandiHaler) Adverse Reaction (Intermediate, Verified 12/18/24 10:17) Unknown trimethoprim (From Bactrim) Adverse Reaction (Intermediate, Verified 12/18/24 10:17) Hives doxycycline Adverse Reaction (Mild, Verified 12/18/24 10:17) Stomach Upset Medication List - Last Reconciled 12/18/24 by Nicholas Richter MD acetaminophen 1,000 mg (2 x 500 mg) PO TID PRN albuterol sulfate 90 mcg/actuation 2 puffs inhalation Q4H PRN 60 days aripiprazole 20 mg PO DAILY atorvastatin 40 mg PO BEDTIME brimonidine 0.15% 1 drp ophthalmic (eye) BID cholecalciferol (vitamin D3) 50 mcg PO BEDTIME clonazepam 0.5 mg PO BID PRN cyanocobalamin (vitamin B-12) (Vitamin B-12) 500 mcg PO DAILY 90 days [dressing stick As directed] [easy on sock aid As directed] empagliflozin (Jardiance) 25 mg PO DAILY esomeprazole magnesium 40 mg PO DAILY@0630 fenofibrate 160 mg PO DAILY fexofenadine 180 mg PO DAILY flash glucose sensor (BlueSwarmStyle Jill 2 Sensor kit) As directed fluticasone propion-salmeterol 250-50 mcg/dose (Advair Diskus) 1 inh inhalation BID gabapentin 600 mg PO TID 30 days guaifenesin ER (Mucinex) 600 mg PO BID insulin aspart U-100 (Novolog FlexPen U-100 Insulin aspart) Novolog sliding scale 3 times daily with breakfast and lunch (200-250: 6 units, 251-300: 8 units, 301 - 350: 10 units, >350: 12 units) Novolog sliding scale with dinner (150-199: 6 units, 200-250: 8 units, 251-300 10 units, 301-350: 12 units, >350 take 14 units) Max daily dosing/24 hours 38 units insulin degludec (Tresiba FlexTouch U-100 insulin) 44 units (0.44 mL) subcut DAILY levothyroxine 25 mcg PO DAILY@0600 liraglutide (Victoza 3-Jeanmarie) 1.8 mg (0.3 mL) subcut DAILY 90 days mirtazapine 30 mg PO BEDTIME netarsudil-latanoprost 0.02-0.005 % (Rocklatan) 1 drp ophthalmic (eye) BEDTIME [new lift chair As directed] nicotine 21 mg transdermal DAILY pen needle, diabetic (Comfort EZ Pen [place]) As directed injects 3 X/day pioglitazone (Actos) 30 mg PO BEDTIME quetiapine 50 mg PO BID PRN sennosides (senna) 17.2 mg PO DAILY Shower Chair As directed [Transfer wheelchair As directed] vit C,P-Pn-hcsnh-lutein-zeaxan 250-90-40-1 mg (PreserVision AREDS-2) 1 cap PO BID [WHEELCHAIR As directed] Do you need a note to return to daycare/school/sports/work: No HPI HPI COPD: Details: ARELI IS 74 YEARS OLD FEMALE A CASE OF BIPOLAR DISORDER, HYPOTHYROIDISM, , LUMBAR STENOSIS , PREVIOUS HISTORY OF COVID INFECTION. ONGOING SMOKER AND ADVANCED CHRONIC OBSTRUCTIVE PULMONARY DISEASE WITH HYPOXEMIA, WAS ADMITTED TO [facility] FROM 11/24-11/28 OF THIS MONTH AND TREATED FOR ACUTE EXACERBATION OF COPD. SHE WAS TREATED WITH A COURSE OF IV SOLU-MEDROL AND DOXYCYCLINE. AND NOW AT HOME IS RECOVERING SLOWLY. SHE HAD JAK2 UP SMOKING TO 1 AND HALF PACK A DAY AND NOW HAS TRY TO CUT DOWN TO HALF PACK A DAY. SHE REMAINED DEPENDENT ON OXYGEN 24 HOURS A DAY, SHE DOES HAVE PORTABLE CYLINDER FOR GOING OUTDOORS BUT IS TOO HEAVY AND SHE IS NOT ABLE TO GO OUTDOORS WITH THIS. SHE IS HOPING THAT SHE CAN GET A POC. AT PRESENT SHE HAS HER USUAL INTERMITTENT COUGH WITHOUT, MUCH EXPECTORATION SHE GETS SHORT OF BREATH ON MINIMAL EFFORT, DENIES ANY WHEEZING ATTACKS. [facility] Medical History (Updated 12/18/24 @ 10:40 by Nicholas Richter MD) Respiratory failure with hypoxia Tobacco dependence Hypothyroid Macular degeneration Acute exacerbation of chronic obstructive pulmonary disease (COPD) Dermatitis of vulva Uses wheelchair Wears dentures Supplemental oxygen dependent Slow to wake up after anesthesia Lumbar spinal stenosis Smoker Nicotine dependence, cigarettes, uncomplicated Acute respiratory failure with hypoxia Vulvar ulcer Recurrent major depression-severe Lower extremity pain Sialoadenitis Jaw pain العلي (dyspnea on exertion) Chest pain Osteopenia (~2015) Sinus tachycardia Pulmonary nodule Menopausal state Artificial menopause state Constipation Nocturnal hypoxemia COPD (chronic obstructive pulmonary disease) Spinal stenosis Depression Vitamin D deficiency Multinodular thyroid HLD (hyperlipidemia) T2DM (type 2 diabetes mellitus) (~2008) Surgical History History of cataract surgery S/P thyroid biopsy History of lithotripsy History of cardiac catheterization Hx of colonoscopy Hx of arthroscopy of left knee Hx of spinal fusion Hx of cholecystectomy Family History Father No problems noted. Mother Cancer Diabetes Social History Household Members: None Housing: Apartment Are you a primary emergency care tech to a significant other at home: No Do you presently have visiting nurse or other home services: Yes Alcohol intake: never Comment: aware of trip hazard Patient Tobacco Use Status: Current everyday Tobacco user Smoking Start Date: 04/01/1964 Tobacco use type: Cigar Cigarette Packs Per Day: 0.5 Cigarettes Per Day: 8 Years Smoked: 60 e-Cigarette/Vaping Use: Currently Using Second Hand Smoke Exposure: No Advance Directives Date on File: 12/02/22 service: No Current occupational status: retired Sexual orientation: Straight/Heterosexual Cognitive needs: No Hearing needs: No Vision needs: Yes Female Reproductive History Menstrual Age of Menarche: 12 Review of Systems Const All systems reviewed & are unremarkable except as noted in HPI and below Eyes Reports no additional complaints ENT Reports nasal congestion (Mild intermittent) Card Denies chest pain, Denies irregular heart rhythm and Denies leg edema Resp Reports as per HPI GI Reports constipation and Reports dyspepsia Reports no additional complaints Musc Reports abnormal gait (Gait impaired has to use walker), Reports back pain and Reports arthralgias Skin/Breast Reports system reviewed and no additional complaints, except as documented Neuro Reports abnormal gait (Gait impaired has to use walker) Psych Reports anxiety, Reports depression and Reports mood swings Endo Reports other (Being treated for diabetes mellitus) Physical Exam Vital Signs: Last Vital Signs Pulse 75 12/18/24 09:53 BP 104/60 12/18/24 09:53 Pulse Ox 95 12/18/24 09:53 Oxygen Delivery Method Nasal Cannula 12/18/24 09:53 Oxygen Flow Rate 2 12/18/24 09:53 Const General: comfortable and no acute distress Orientation/consciousness: patient oriented x3 HEENT Head: Yes normal to inspection General nose exam: No nasal polyps present and No nasal discharge present Face and sinus: Yes sinuses nontender Mouth: oropharynx abnormals (Crowded, Mallampati class 4) Throat: Yes posterior oropharynx normal Eyes General: appearance normal, both eyes and all related structures Neck Neck: Yes normal visual inspection, Yes no lymphadenopathy, Yes trachea midline and Yes no JVD Thyroid: Thyroid normal Chest Chest palpation & inspection: normal inspection of the chest, normal palpation of entire chest wall and no tenderness Resp Other: Percussion note resonant, breath sounds are distant with prolonged expiratory phase. Lungs are clear today no audible wheezes rhonchi or crepitations. Cardio Palpation: normal PMI Rate: regular rate Rhythm: regular rhythm Heart sounds: no gallops and no murmurs GI Palpation (GI): Soft to palpation, nontender, No hepatosplenomegaly present and no masses Auscultation: normal bowel sounds Back/Spine/Pelvis Thoracic/Lumbar Spine: thoracic and lumbar spine normal to inspection and thoraco-lumbar ROM limited Skin General skin exam: no rashes or lesions noted Neuro General: patient oriented x3, No gait normal (Somewhat unsteady gait, uses walker) and no focal motor deficits Cranial nerves: Yes CN's II-XII intact bilaterally Extrem General: Yes normal to inspection, Yes no clubbing, cyanosis or edema and Yes no calf tenderness Psych Appearance: grossly normal and well kempt Speech and movement: Normal speech and movement present Office Procedures 6 Minute Walk Time:: 10:15 SPO2 % at rest: 95 Pulse at rest: 75 SPO2 % during excercise: 88 Pulse during excercise: 101 SPO2 % after excercise: 95 Pulse after excercise: 93 Distance in yards walked: 200 Carlton Score: 2 Performance Observations:: Areli walked on level ground with the assistance of a walker. She walked for 50 yards before her SPO2 decreased to 88% on room air. O2 started on pulsed setting 2 and with a brief rest her SPO2 recovered to 95%. She maintained her SPO2 at 94-95% for the duration of the walk. [id number] - 6 Minute Walk Results Reviewed Results Reviewed: 6 MINUTES WALK TEST WITH POC . SHE QUALIFIES TO USE O2 CONSERVING UNIT AT 2 L/MINUTE. Assessment & Plan Assessment & Plan (1) Smoker: Comment: Patient is a lifelong smoker. Has tried to quit smoking many times, but has not been able to quit complete. Her smoking goes up to 1 and half pack a day and then she can cut down to half pack a day, depending upon levels of her anxiety. Since her admission 2 weeks ago she has cut down to 10 cigarettes a day. Code(s): F17.200 - Nicotine dependence, unspecified, uncomplicated Category: Social Hx Plan: Talked to her at great length and advise that she has to try to quit smoking, and for the time being she should start cutting down by 2 cigarettes every week until she has cut down to 0. She is going to try but it is difficult to predict in her case (2) COPD (chronic obstructive pulmonary disease): Comment: Long-time chronic obstructive pulmonary disease, moderately severe,, controlled and stable. At present she has no active cough or wheezing. RECENT ACUTE EXACERBATION FOR WHICH SHE WAS TREATED IN HOSPITAL FOR 5 DAYS AND THEN DISCHARGED 2 WEEKS AGO, AT PRESENT SHE IS FEELING BACK TO HER BASELINE. Code(s): J44.9 - Chronic obstructive pulmonary disease, unspecified Category: Medical Qualifiers: COPD type: emphysema Emphysema type: unspecified Qualified Code(s): J43.9 - Emphysema, unspecified Plan: ADVISED TO CONTINUE HER REGULAR REGIMEN. * SHE SAY IS SHE DOES NOT LIKE TO USE ADVAIR, SHE USED TO LIKE SYMBICORT, BUT THAT IS NOT COVERED BY HER INSURANCE AT PRESENT. ADVAIR 250-51 INHALATION B.I.D. USE ALBUTEROL HFA 2 PUFFS Q.6 HOURS P.R.N. (3) Respiratory failure with hypoxia: Comment: PATIENT DOES HAVE NOCTURNAL HYPOXEMIA WELL DAYTIME HYPOXEMIA WITH ANY PHYSICAL EFFORT. SHE HAS BEEN ON OXYGEN THERAPY, 2 L/MINUTE. SHE DOES NOT COME OUT OF THE HOUSE WITHOUT OXYGEN BUT HAS HARD TIME IN CARRYING THE CYLINDER. PER 6 MINUTES WALK SHE DID QUALIFY FOR USE OF POC AT 2 L/MINUTE. Code(s): J96.91 - Respiratory failure, unspecified with hypoxia Category: Medical Plan: DID HAVE 6 MINUTES WALK TEST AND SHE QUALIFIES TO HAVE POC AT 2 L/MINUTE. WE ARE GOING TO GO AHEAD AND ORDER A POC UNIT FOR HER Orders: Orders AMB 6 minute walk Today J43.9 - Emphysema, unspecified Coding Level of Care Code Est Pt Level 4 (89611) Diagnoses Smoker F17.200 Pulmonary emphysema, unspecified emphysema type J43.9 COPD type: emphysema Emphysema type: unspecified Respiratory failure with hypoxia J96.91 CPT Codes Coding ([id number])
[2024-12-18 10:40] VITALS: PULSE 75; O2SAT 95
--- OUTSIDE RECORDS SUMMARY | 2024-12-18 10:48 | XMS_ITS | Data Portability ---
Author Organization [facility] Doctor, [facility] Address [address] [place] [address] Care Team Providers Care Primary Care Pediatrician Name Role Phone KALA FIERRO Primary Care Provider [phone] HIM CCA OTHER Assessment Encounter Date Assessment Date Assessment LastModified by Organization Details LastModified Time 01/25/2022 01/25/2022 I have reviewed and agree with the assessment and plan as documented by the supervisor partial denture department. I provided real-time medical direction for this [...] Assessment and Plan as documented by the Parcel Wrapper. Patient given the opportunity to ask questions. Advised if develops CP/severe SOB/turning blue/uncontrolle d n/v/d or black/bloody emesis or stool/ AMS/ syncope/ hi fever to call 911- verbalized understanding of instructions [email or web address] Not available 02/23/2023 11:45:02 09/25/2024 09/25/2024 I provided real -time medical direction via phone for this encounter, and was available for additional phone based assistance as needed. I have reviewed and agree with the Assessment and Plan as documented by the Parcel Wrapper. We discussed the diagnostic uncertainty of home visits and the risk associated with this. In this case the patient and I felt this to be an acceptable and reasonable amount of risk given the benefit of avoiding an ED visit. The patient given the opportunity to ask questions. Advised close follow-up with PCP call tomorrow -if develops increasing CP/severe SOB/turning blue/uncontrolle d n/v/d /AMS/ syncope/ hi fever /loss of bowel or bladder control/intolera ble back pain / acute focal weakness or severe numbness, inability to ambulate -to call 911- she verbalized understanding of instructions to the medic. [email or web address] Not available 09/25/2024 16:00:31 Plan of Treatment Reminders Order Date Submit Date Provider Last Modified By Organization Details Last Modified Time Details Appointments None recorded. Lab urinalysis, dipstick 2024 025 [facility], [address] [place] [address], [id number] 5 07:53:38 rapid SARS CoV 2 Ag, QL IA, respiratory specimen 2022 023 [email or web address] [facility], [address] [place] [address], [id number] 3 11:00:43 rapid flu (A+B) 2022 023 [email or web address] 0 [facility], [address] [place] [address], [id number] 3 11:00:43 BMP, serum or plasma 2022 023 [email or web address] 0 [facility], [address] [place] [address], [id number] 3 13:32:46 Referral None recorded. Procedures None recorded. Surgeries None recorded. Imaging electrocard iogram 2024 025 [facility], [address] [place], [id number] 5 16:39:35 Medication Orders prednisone 20 mg tablet 2024 025 [email or web address] 0 [facility] #[id number], [address] [place], [address], 5 15:41:55 cyclobenzap rine 5 mg tablet 2024 025 [facility]armacy #[id number], [address] [place], [address], 5 15:49:51 prednisone 20 mg tablet 2024 025 [id number] [address] [place], [address], 5 15:49:51 prednisone 20 mg tablet 2022 023 [id number] [address] [place], [address], 3 11:44:47 prednisone 20 mg tablet 2022 023 [email or web address] 0 [id number] [address] [place], [address], 3 11:44:43 molnupiravi r 200 mg capsule (EUA) 2022 023 [id number] [address] [place], [address], 3 11:44:46 Anbesol (benzocaine ) 10 % oral mucosal liquid 2021 022 [id number] [address] [place], [address], 2 20:01:49 Patient TargetsNo targets recorded. Patient InstructionsNo instructions recorded. Reason for Referral None Reported. Results Created Date Observation Date Name Description Value Unit Range Abnormal Flag Note LastModifiedBy Organization Detail LastModifiedTime 02/24/2002/23/2023 BMP, serum or plasm a BUN 8 Not Available [facility] [address] [place] [address], [id number] 02/23/2023 11:45:10 02/24/20 23 02/23/2023 BMP, serum or plasm a Ca Ionize d calciu m 1.18 Not Available [facility] [address] [place] [address], [id number] 02/23/2023 11:45:10 02/24/2002/23/2023 BMP, serum or plasm a CI- 98 Not Available Main - Ins [address], [address] [place] [address] 02/23/2023 11:45:10 02/24/2002/23/2023 BMP, serum or plasm a CRE 0.7 Not Available [facility] - [facility] [address], [address] [place] [address] 02/23/2023 11:45:10 02/24/20 23 02/23/2023 BMP, serum or plasm a GLU 187 after OJ Not Available [facility] ed [address] [place] [address], [address] [place] [address] 02/23/2023 11:45:10 02/24/20 23 02/23/2023 BMP, serum or plasm a K+ 3.8 Not Available [facility] - [facility] [address], [address] [place] [address] 02/23/2023 11:45:10 02/24/20 23 02/23/2023 BMP, serum or plasm a Na+ 143 Not Available [facility] - [facility] [address], [address] [place] [address] 02/23/2023 11:45:10 02/24/20 23 02/23/2023 BMP, serum or plasm a tCO2 25 Not Available [facility] - [address], [address] [place] [address] 02/23/2023 11:45:10 02/24/2002/23/2023 rapid flu (A+B) Flu negati ve Not Available [facility] [address] [place] [address], [address] [place] [address] 02/23/2023 10:58:20 02/24/2002/23/2023 rapid SARS CoV 2 Ag, QL IA, respi rator y speci men rapid SARS CoV 2 Ag, QL IA, respiratory specimen positi ve Not Available [facility] ed [address] [place] [address], [address] [place] [address] 02/23/2023 10:58:11 09/26/1909/25/2024 elect khanh diogr am No observ ation record ed. [email or web address] [facility] [address] [place] [address], [address] [place] [address] 09/26/2024 07:53:58 Result Notes None recorded. Medical Equipment None Reported. Allergies Allergen ID Allergen Name Allergen Category Reaction Reaction Severity Criticality Documentation Date Start Date Code Code System Note Provider Name and Address Organization Details Recorded Time 90857 Non-stero idal anti-infl ammatory agent (product) medicatio n Not available Not available Not available 09/25/2024 35595 005 SNOMED Not Available [facility] - production 5 11:35:33 3135 ibuprofen medicatio n Not available Not available Not available 02/23/2023 5640 RxNorm Not Available [facility] - production 5 11:35:33 3136 aspirin medicatio n Not available Not available Not available 02/23/2023 1191 RxNorm Not Available [facility] - production 5 11:35:33 3137 Ultram medicatio n Not available Not available Not available 02/23/2023 37296 6 RxNorm Sally Blancas MD [address] [place] [address],[address], [place], [address], Major Aide 3 10:59:42 3138 Geodon medicatio n Not available Not available Not available 02/23/2023 27969 4 RxNorm Sally Blancas MD [address] [place] [address],[address], [place], [address], Major Aide 3 10:59:47 Medications Name Sig Start Date [...] Available Not Available prednisone 20 mg tablet Take 2 tablets every day by oral route after meal(s) for 4 days. 2024 active Not Available Not Available Not Avai lable clonazepam 0.5 mg tablet TAKE 1 TABLET [...] active Not Available Not Available Not Available cyclobenzapr ine 5 mg tablet Take 1 tablet 3 times a day by oral route as needed, for back pain. 2024 active Not Available Not Available Not Avai lable nitrofuranto in monohydrate/ macrocrystal s 100 mg [...] Available UltiCare Pen Needle 32 gauge x active Not Available Not Available Not Available [...] saturation in Arterial blood by Pulse oximetry Body temperature Body weight Heart rate Body height Respiratory rate Systolic blood pressure Diastolic blood pressure Provider Name and Address Organization Details Last Updated DateTime 5 90 % 90 % 97.4 [degF] 73456.8 88 g 82 /min 167.64 cm 18 /min 148 mm[Hg] 82 mm[Hg] Not Available [facility] - production 5 15:38:48 Date Recorded Oxygen saturation Oxygen saturation in Arterial blood by Pulse oximetry Heart rate Body temperature Respiratory rate Systolic blood pressure Diastolic blood pressure Provider Name and Address Organization Details Last Updated DateTime 2 98 % 98 % 76 /min 97.9 [degF] 18 /min 133 mm[Hg] 87 mm[Hg] Not Available [facility] - production 2 19:51:54 Date Recorded Respiratory rate Heart rate Body temperature Oxygen saturation Oxygen saturation in Arterial blood by Pulse oximetry Inhaled oxygen flow rate Systolic blood pressure Diastolic blood pressure Provider Name and Address Organization Details Last Updated DateTime 3 20 /min 83 /min 98.5 [degF] 93 % 93 % 2 L/min 104 mm[Hg] 64 mm[Hg] Not Available [facility] - production 3 10:50:54 Social History None recorded. Functional Status None [...] 3084 Maryam Acevedo MD Main - [facility] [address] [place] [phone] 01/25/2022 19:51:49 03/03/2022 12:49:36 Aphthous ulcer of mouth 446578495 K12.0 [id number] Sally Blancas MD Main - [facility] [address] [place] [phone] 02/23/2023 10:50:46 02/23/2023 23:49:31 Acute exacerbation of chronic obstructive pulmonary disease [id number] J44.1 Offered patient nebulizer she declines. She does have a nebulizer at home/ [facility] med[facility] but will not use because she [...] to symptom onset) and her PCP COVID-19 [id number] U07.1 Reviewed meds with the patient and [...] symptoms- can call for repeat visit if needs-indu ghosh reviewed red flags- pat states prednisone helps cough in past [id number] Sally Blancas MD Main - [facility] [address] [place] [address] 09/25/2024 15:38:46 09/25/2024 19:44:24 Chronic back pain [id number] G89.29 w/ acute exacerbati on Patient has Tylenol 500 mg- has already had 2000 mg today- advised 3000 mg is max dose for her body weight per 24 hours due to potential hepatotoxi city. Advised patient we only carry NSAIDs and Tylenol: She has already had 2 g of APAP and is allergic to NSAIDs.She reports that she has had Flexeril before for back strain/romaine n -advised I will start with lower dose explained it can make her groggy-may double it to maximum 10 mg 3 times a day if not too sedated and needs it for pain control. She verbalized understand ing. 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 She has had prednisone before and is aware how to increase her insulin/aw are it will cause hyperglyce eliazar. Also advise she limit carbohydra brandie while on the prednisone -to control blood sugar while we attempt to reduce the inflammati on and pain in her back advised ice / wrapped in a towel alternatin g w/ gentle heat q 3-4H w/a to affected area low back Urinary symptoms [id number] 08 R39.9 bs was 105 this morning 217 post lunch and it is 217 at 3:34 PM on the patient's CGM-urine dipstick is not indicative of infection: Leukocytes , nitrates, blood is negative. She is negative for ketones she is spilling 4+ glucose which goes along with some hyperglyce eliazar and could be causing the urgency and frequencys mariela hydrated with w/ sf fluids Chronic ob structive pulmonary disease 95032282 J44.9 Offered patient nebulizer due to rhonchi and wheezing. She states this is chronic for her.. She states 90% O2 sat is good for her she is normally in the mid 80s.-She declines nebulizer as she said it makes her cough worse and dries her out too much. She has them and does not use them/refus es PCP team : may benefit from CXR- has no fever/ is coughing scant whitish sl yellow sputum abx not clinically indicated at this time. Patient reports she is scheduled for a lung scan soon Intermitte nt palpitations [id number] R00.2 Towards the end of the visit patient started complainin g of intermitte nt palpitatio ns- Advised 1 EKG, although not concerning does not constitute a cardiac workup and she needs close follow-up with her PCP Health Concerns Section Related Observation LastModified by Organization Detai ls LastModified Time None Recorded Concern Status LastModified by Organization Details LastModified Time None Recorded Advance Directives Directive None Recorded Payers Insurance Date Sequence Insurance Name Policy Number Policy Kingsley Covered Member ID Kingsley Member ID Guarantor Name 02/23/2023 1 [facility] - DOS PRIOR TO 2022 - DUAL ELIGIBLE (MEDICARE REPLACEMENT/ADV ANTAGE - HMO) Sofiya Rivas [id number] Sofiya Rivas 09/25/2024 1 [facility] - DOS ON OR AFTER 2022 - DUAL ELIGIBLE - CARE HOME OPTIONS AND ONE CARE (MEDICARE REPLACEMENT/ADV ANTAGE - HMO) Sofiya Rivas [id number] Sofiya Rivas Notes Date Note Type Note [...] Protocol-Based Disposition: Consider RADHA Rosales Community clinician, MD/REGULATORY AFFAIRS COORDINATOR triage, PCP, or Urgent Care Visit within 4 Hours ..................... ..................... ..................... ..................... ..................... ..................... ............... CRC Nursing Assessment: Comments: CRC Rn did not need further info to process visit Maryam Acevedo MD [address] [place] [address],[address], [place], [address], [facility] [employer] 01/25/2022 20:01:58 02/23/2023 text/html CRC Nursing Assessment: Reason For Request: COPD Chief Complaints: Cough, COPD, Shortness of Breath/Dyspnea PMH: Diabetes, COPD/Asthma Comments: Member calling in to place referral, identified via /name. Member with COPD o2 dep on , current smoker. Member had a +sick contact on Tuesday, per member friend is negative for covid. With with congested harsh productive cough, sob and wheezes. She has 1 inhaler she uses, unsure of the name, members sat has been 88-90%. Denies fever/chills, had vomiting Tuesday night and diarrhea yesterday, but none today. Member would like to be evaluated. ..................... ..................... ..................... ..................... ..................... ..................... ............... Parcel Wrapper Note From Carlos Stuart: Per CRC: Member calling in to place referral, identified via /name. Member with COPD o2 dep on , current smoker. Member had a +sick contact [...] Vitals and assessment preformed. O: HEENT: Head Normocephalic/Atrauma tic Eyes: PEERL Neck: supple no JVD, No Trach deviation LS clear and equal in all meneses Abd soft/non-tender Extremities: +ROM +CSM in all ext., lower bilat. extremities -edema +pedal pulses A: Vitals and assessment preformed, Preformed istat chem8 blood test also preformed covid, and flu a/b rapid tests, pts covid test is positive. Flu a/b negative, following called [facility] with report. P: [facility] Dr. Blancas was called and given report, [...] up with PCP tomorrow. Red flags discussed [facility] clear. [facility] Lab Orders: rapid SARS CoV 2 Ag, QL IA, respiratory specimen: Performed rapid flu (A+B): Performed BMP, serum or plasma: Performed [facility] Medication Orders: prednisone 20 mg tablet: Administered ..................... ..................... ..................... ..................... ..................... ..................... ............... Disposition: Fulfilled Sally Blancas MD [address] [place] [address],[address], [place], [address], Pain Doctor 02/23/2023 13:35:59 09/25/2024 text/html CRC Nurse Triage Notes (Kelly Wall): Reason For Request: back pain Denies: Worst Headache of life New onset of vision loss Sudden onset -unilateral weakness/gait disturbance Fall with head strike and altered LOC New onset of Slurred speech or difficulty finding words Sudden Mental status changes Head pain with fever chills and neck pain Seizure activity Head pain not relieved by medication greater than 8 hours Head pain greater than 8 hours -unrelated to falls or injury Head pain with nausea vomiting Dizziness with positional change Sensitive to light Chief Complaints: Back Pain PMH: COPD/Asthma, Chronic Back Pain, Chronic Obstructive Pulmonary Disease (COPD), Diabetes Mellitus Type 2, Hyperlipidemia PMH Reviewed at 09/25/2024:35 Allergies Reviewed at 09/25/2024:35 Pain Assessment: Level 8 out of 10 Comments: Terminal Make Up Operator verified the name//address and phone number. Pt calling for back pain. She does have chronic back pain, spinal stenosis with a history of sx. She has had the pain for a few days, she has been using tylenol and heat. She denies any falls or injuries. She does void a lot with urgency but she is unsure if she has a UTI. She denies fever/ chills/ nausea/ vomiting. the urine is normal in color , no odor. She denies any blood thinners., no kidney disease. . Education provided on the response time and the Patient was advised to monitor reported s/s and seek emergency treatment if need Parcel Wrapper Organization Information for Roxanna Nichols Business Legal Name: [employer]. Address: [address] [place] [address], Bench Assembler: Khadar WANG No.: [id number] Parcel Wrapper POC Test Results from Roxanna Nichols Urine Dipstick (15:47:57) Urine leukocytes: - TIMOTEO Urine nitrites: - NIT Urine urobilinogen: 0.2 URO Urine protein: - PRO Urine pH: 6.0 pH Urine blood: - BLO Urine specific gravity: 1.010 SG Urine ketones: - KET Urine bilirubin: - MIRANDA Urine glucose: 2000++++ GLU EKG (16:09:34) EKG test performed. Attachments uploaded as part of this test result can be found under Documents section. ..................... ..................... ..................... ..................... ..................... ..................... ............... Parcel Wrapper Note From Roxanna Nichols: ELDER makes pt contact. She is found seated in her lift recliner in the living area of her small apartment. The apartment neil are a brown yellow color and the room smell heavily of cigarette smoke. Pt turns her head and watches ELDER walk in the room and she says hello. She is wearing her pajamas and is covered w/ a blanket. She is generally well-appearing, but is sitting bolt upright. She has mild audible rhonchi and wheezing, but she is not tripoding or using obvious accessory muscles to breathe. No facial droop, slurred speech, or one-sided weakness are observed and she is not bleeding anywhere. Pt endorses an increase in her chronic lumbar back pain since Tuesday. She denies any recent trauma to the back, but has not been able to get out of her apartment since due to the pain. She says the only thing she did on Tuesday was play trivia. She describes the pain as sharp when she moves just right or when walking and aggravating the rest of the time and it is 8/10 compared to her worst back pain. She feels a bit weaker in her LEs since the pain has been getting worse, but is not c/o numbness or tingling or shooting pains in to her legs. She also denies incontinence of the bladder or bowels and no difficulty or pain when using the toilet. Pt is also denying cp, increased sob, n/v/d, fever or chills. Pt says she is normally wheezy and doesn't like the way the nebulizer dries out her throat or makes her heart race, so she doesn't use it. She says she has been taking Tylenol for the pain, but it hasn't touched it , as well as heat. [facility] obtains vital signs and pt is assessed. Lung sounds are diffuse rhonchi and wheezing. Abdomen is soft and nontender and no CVA tenderness is noted. Pt has pain in L4-S1 on the L side w/ some more mild discomfort at the same level on the R. CMS is intact in all four extremities and no edema is noted. General back is clear of any redness, swelling, or bruising. [facility] contacts [facility] and discusses the above. [facility] orders a UA as well as 40mg prednisone PO for back pain and inflammation. Pt is able to provide a urine sample for UA. UA is negative for infection, however, urine glucose is high. After physical exam and UA, pt tells [facility] she has been having profuse night sweats, Like I'm going through menopause again! and she has been coughing up, [id number]-xhm phlegm and having some heart palpitations. [facility] orders a 12-lead EKG. EKG is obtained and found to be unremarkable. [facility] informs pt that a CXR is recommended. [facility] prescribes prednisone and cyclobenzaprine for pt's back pain and stresses the importance of monitoring her glucose levels, using her insulin, and watching her diet. [facility] says pt can increase the cyclobenzaprine dose from 5mg to 10mg, if needed. She also tells pt 3G Tylenol per day is the max dose she should take for her weight. Pt is advised to use ice and heat on her back as well. [facility] tells pt to contact her PCP tomorrow to touch base about the pain and her blood sugar. [facility] also tells pt she needs to go to the ED if she develops cp, severe sob, high fever w/ cough, uncontrollable n/v/d, black/bloody stools or urine, focal weakness, or syncope. [facility] administers 40mg prednisone (2 tablets) PO to the pt. Pt states her verbal understanding of [facility] instructions and thanks [facility] for coming. [facility] is clear. Report completed by GWYN Nichols [id number]. [facility] Lab Orders: urinalysis, dipstick: Performed [facility] Medication Orders: prednisone 20 mg tablet: Administered ..................... ..................... ..................... ..................... ..................... ..................... ............... [facility] Consulted: Sally Blancas ..................... ..................... ..................... ..................... ..................... ..................... ............... Disposition: Sarah Blancas MD [address] [facility],[address], [place], [address], Pain Doctor 09/25/2024 17:07:04 OBGyn Episode No OBEpisode recorded.
== END 2024-12-18 10:39 | disposition home or self-care (01) ==
LOC: HO.HPS 09:51
PROVIDERS: PCP Internal Medicine; Visit Provider Internal Medicine
DX: F17.200 Nicotine dependence, unspecified, uncomplicated (principal); J43.9 Emphysema, unspecified; J96.91 Respiratory failure, unspecified with hypoxia
CPT/HCPCS: 94618; 99214

== ENCOUNTER → 2024-12-18 09:51 | Outpatient (BNVA) | payer OTHER, SELFPAY | PROVIDERS: PCP Internal Medicine; Visit Provider Internal Medicine | DX: Z09 Encounter for follow-up examination after completed treatment for conditions other than malignant neoplasm (principal); J96.91 Respiratory failure, unspecified with hypoxia; J43.9 Emphysema, unspecified; F17.200 Nicotine dependence, unspecified, uncomplicated | CPT/HCPCS: 94618; 99212 ==

== ENCOUNTER 2025-01-16 10:05 | Outpatient (AMB) | payer OTHER, SELFPAY ==
[2025-01-16 10:10] VITALS: BP 122/59; PULSE 76; O2SAT 90; BMI 30.8
--- NOTE | 2025-01-16 10:10 | MHC.OFFVIS ---
Vital Signs 01/16/25 10:10 Height 5 ft 5 in Weight 185 lb BMI 30.8 BP 122/59 L Blood Pressure Location Lt brachial Position Sitting Pulse 76 Pulse Source Pulse Oximeter Pulse Oximetry (%) 90 L Oxygen Delivery Method Room Air Intake Visit Reasons: COPD Intake Note: pt is here for follow up and has been using oxygen throughout the day, [employer] is DME, send for poc. 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 Required: No Allergies aspirin (ASPIRIN) Allergy (Severe, Verified 01/16/25 10:20) GI bleed, stomach upset ibuprofen (IBUPROFEN) Allergy (Severe, Verified 01/16/25 10:20) GI Bleed, stomach upset valsartan (From Diovan) Allergy (Severe, Verified 01/16/25 10:20) hives ziprasidone (From Geodon) Allergy (Severe, Verified 01/16/25 10:20) RASH-PALPITATIONS azithromycin Allergy (Intermediate, Verified 01/16/25 10:20) facial swelling metformin (METFORMIN) Allergy (Intermediate, Verified 01/16/25 10:20) NAUSEA & VOMITING, GI upset cephalexin (From KEFLEX) Allergy (Unknown, Verified 01/16/25 10:20) can't remember lisinopril Allergy (Unknown, Verified 01/16/25 10:20) cough NSAIDS (Non-Steroidal Anti-Inflamma (NSAIDS (NON-STEROIDAL ANTI-INFLAMMA) Adverse Reaction (Severe, Verified 01/16/25 10:20) HX OF GI BLEED tramadol (Ultram) Adverse Reaction (Severe, Verified 01/16/25 10:20) GI upset sulfamethoxazole (From Bactrim) Adverse Reaction (Intermediate, Verified 01/16/25 10:20) Hives tiotropium (From Spiriva with HandiHaler) Adverse Reaction (Intermediate, Verified 01/16/25 10:20) Unknown trimethoprim (From Bactrim) Adverse Reaction (Intermediate, Verified 01/16/25 10:20) Hives doxycycline Adverse Reaction (Mild, Verified 01/16/25 10:20) Stomach Upset Medication List - Last Reconciled 01/16/25 by Nicholas Richter MD acetaminophen 1,000 mg (2 x 500 mg) PO TID PRN albuterol sulfate 90 mcg/actuation 2 puffs inhalation Q4H PRN 60 days aripiprazole 20 mg PO DAILY atorvastatin 40 mg PO BEDTIME brimonidine 0.15% 1 drp ophthalmic (eye) BID cholecalciferol (vitamin D3) 50 mcg PO BEDTIME clonazepam 0.5 mg PO BID PRN cyanocobalamin (vitamin B-12) (Vitamin B-12) 500 mcg PO DAILY 90 days [dressing stick As directed] [easy on sock aid As directed] empagliflozin (Jardiance) 25 mg PO DAILY esomeprazole magnesium 40 mg PO DAILY@0630 fenofibrate 160 mg PO DAILY fexofenadine 180 mg PO DAILY flash glucose sensor (FreeStyle Jill 2 Sensor kit) As directed fluticasone propion-salmeterol 250-50 mcg/dose (Advair Diskus) 1 inh inhalation BID 30 days fluticasone propion-salmeterol 250-50 mcg/dose (Advair Diskus) 1 inh inhalation BID gabapentin 600 mg PO TID 30 days guaifenesin ER (Mucinex) 600 mg PO BID insulin aspart U-100 (Novolog FlexPen U-100 Insulin aspart) Novolog sliding scale 3 times daily with breakfast and lunch (200-250: 6 units, 251-300: 8 units, 301 - 350: 10 units, >350: 12 units) Novolog sliding scale with dinner (150-199: 6 units, 200-250: 8 units, 251-300 10 units, 301-350: 12 units, >350 take 14 units) Max daily dosing/24 hours 38 units insulin degludec (Tresiba FlexTouch U-100 insulin) 44 units (0.44 mL) subcut DAILY levothyroxine 25 mcg PO DAILY@0600 liraglutide (Victoza 3-Jeanmarie) 1.8 mg (0.3 mL) subcut DAILY 90 days mirtazapine 30 mg PO BEDTIME netarsudil-latanoprost 0.02-0.005 % (Rocklatan) 1 drp ophthalmic (eye) BEDTIME [new lift chair As directed] nicotine 21 mg transdermal DAILY pen needle, diabetic (Comfort EZ Pen [place]) As directed injects 3 X/day pioglitazone (Actos) 30 mg PO BEDTIME quetiapine 50 mg PO BID PRN sennosides (senna) 17.2 mg PO DAILY Shower Chair As directed [Transfer wheelchair As directed] vit C,B-Wd-wnnzu-lutein-zeaxan 250-90-40-1 mg (PreserVision AREDS-2) 1 cap PO BID [WHEELCHAIR As directed] Do you need a note to return to daycare/school/sports/work: No HPI HPI COPD: Details: 74 years old female, comes for follow-up after 1 month. Complains of intermittent cough and some wheezing. She tells me that she has been out of her inhalers for a few weeks. She also needs O2 24 hours a day but still does not have POC . When she goes outdoors her O2 sats fall below 89% and she can not go out for too long. Still smoking 7 cigarettes a day and has intermittent cough especially after smoking. She is trying to reduce the number of cigarettes. [facility] Medical History Respiratory failure with hypoxia Tobacco dependence Hypothyroid Macular degeneration Acute exacerbation of chronic obstructive pulmonary disease (COPD) Dermatitis of vulva Uses wheelchair Wears dentures Supplemental oxygen dependent Slow to wake up after anesthesia Lumbar spinal stenosis Smoker Nicotine dependence, cigarettes, uncomplicated Acute respiratory failure with hypoxia Vulvar ulcer Recurrent major depression-severe Lower extremity pain Sialoadenitis Jaw pain العلي (dyspnea on exertion) Chest pain Osteopenia (~2015) Sinus tachycardia Pulmonary nodule Menopausal state Artificial menopause state Constipation Nocturnal hypoxemia COPD (chronic obstructive pulmonary disease) Spinal stenosis Depression Vitamin D deficiency Multinodular thyroid HLD (hyperlipidemia) T2DM (type 2 diabetes mellitus) (~2008) Surgical History History of cataract surgery S/P thyroid biopsy History of lithotripsy History of cardiac catheterization Hx of colonoscopy Hx of arthroscopy of left knee Hx of spinal fusion Hx of cholecystectomy Family History Father No problems noted. Mother Cancer Diabetes Social History Household Members: None Housing: Apartment Are you a primary animal care technician to a significant other at home: No Do you presently have visiting nurse or other home services: Yes Alcohol intake: never Comment: aware of trip hazard Patient Tobacco Use Status: Current everyday Tobacco user Smoking Start Date: 04/01/1964 Tobacco use type: Cigar Cigarette Packs Per Day: 0.5 Cigarettes Per Day: 8 Years Smoked: 60 e-Cigarette/Vaping Use: Currently Using Second Hand Smoke Exposure: No Advance Directives Date on File: 12/02/22 service: No Current occupational status: retired Sexual orientation: Straight/Heterosexual Cognitive needs: No Hearing needs: No Vision needs: Yes Female Reproductive History Menstrual Age of Menarche: 12 Review of Systems Const All systems reviewed & are unremarkable except as noted in HPI and below Eyes Reports no additional complaints ENT Reports nasal congestion (Mild intermittent) Card Denies chest pain, Denies irregular heart rhythm and Denies leg edema Resp Reports as per HPI GI Reports constipation and Reports dyspepsia Reports no additional complaints Musc Reports abnormal gait (Gait impaired has to use walker), Reports back pain and Reports arthralgias Skin/Breast Reports system reviewed and no additional complaints, except as documented Neuro Reports abnormal gait (Gait impaired has to use walker) Psych Reports anxiety, Reports depression and Reports mood swings Endo Reports other (Being treated for diabetes mellitus) Physical Exam Vital Signs: Last Vital Signs Pulse 76 01/16/25 10:10 BP 122/59 L 01/16/25 10:10 Pulse Ox 90 L 01/16/25 10:10 Oxygen Delivery Method Room Air 01/16/25 10:10 BMI result Body Mass Index 30.8 Const General: comfortable and no acute distress Orientation/consciousness: patient oriented x3 HEENT Head: Yes normal to inspection General nose exam: No nasal polyps present and No nasal discharge present Face and sinus: Yes sinuses nontender Mouth: oropharynx abnormals (Crowded, Mallampati class 4) Throat: Yes posterior oropharynx normal Eyes General: appearance normal, both eyes and all related structures Neck Neck: Yes normal visual inspection, Yes no lymphadenopathy, Yes trachea midline and Yes no JVD Thyroid: Thyroid normal Chest Chest palpation & inspection: normal inspection of the chest, normal palpation of entire chest wall and no tenderness Resp Other: Percussion note resonant, breath sounds are distant with prolonged expiratory phase. On auscultation she does have scattered expiratory wheezes on both sides. ( has not been using maintenance inhaler and also does not have albuterol inhaler on hand ) Cardio Palpation: normal PMI Rate: regular rate Rhythm: regular rhythm Heart sounds: no gallops and no murmurs GI Palpation (GI): Soft to palpation, nontender, No hepatosplenomegaly present and no masses Auscultation: normal bowel sounds Back/Spine/Pelvis Thoracic/Lumbar Spine: thoracic and lumbar spine normal to inspection and thoraco-lumbar ROM limited Skin General skin exam: no rashes or lesions noted Neuro General: patient oriented x3, No gait normal (Somewhat unsteady gait, uses walker) and no focal motor deficits Cranial nerves: Yes CN's II-XII intact bilaterally Extrem General: Yes normal to inspection, Yes no clubbing, cyanosis or edema and Yes no calf tenderness Psych Appearance: grossly normal and well kempt Speech and movement: Normal speech and movement present Assessment & Plan Assessment & Plan (1) COPD (chronic obstructive pulmonary disease): Comment: Long-time chronic obstructive pulmonary disease, moderately severe,, controlled and stable. At present she has mild intermittent cough and some wheezing especially when she walks around. This may be because she has been out of her regular meds for COPD. Code(s): J44.9 - Chronic obstructive pulmonary disease, unspecified Category: Medical Qualifiers: COPD type: emphysema Emphysema type: unspecified Qualified Code(s): J43.9 - Emphysema, unspecified Plan: Prescription for Advair 250-51 inhalation b.i.d. is renewed Also prescription for albuterol HFA 2 puffs Q 4-6 hours p.r.n. is renewed. (2) Respiratory failure with hypoxia: Comment: PATIENT DOES HAVE NOCTURNAL HYPOXEMIA WELL DAYTIME HYPOXEMIA WITH ANY PHYSICAL EFFORT. SHE HAS BEEN ON OXYGEN THERAPY, 2 L/MINUTE. On her last visit a month ago she qualified for using portable O2 concentrator( POC ) which she still has not received. It is difficult for her to go outdoors without oxygen. Code(s): J96.91 - Respiratory failure, unspecified with hypoxia Category: Medical Plan: Advised to use O2 2 L/minute with the stationary concentrator at home and he start using the POC as soon as she gets it for any outdoor activities (3) Pulmonary nodule: Comment: Patient has multiple small pulmonary nodules unchanged from before Two ground-glass nodular densities in lower lobes are somewhat increased from before. Need to be followed up closely. She is being followed by, our Lung screening team. Last CT scan on 09/06/23 showed persistent density in the left lower lobe, , PET scan did not show any activity. Last CT scan on 11/24/24 while she was in the hospital, did not show any definite pulmonary nodules but showed mild bibasilar atelectasis . Code(s): R91.1 - Solitary pulmonary nodule Category: Medical Plan: She is to continue the annual lung CT,, through lung screening program. Medications: Refilled albuterol sulfate 90 mcg/actuation 2 puffs inhalation Q4H PRN 8.5 grams 4RF Shortness Of Breath 60 days fluticasone propion-salmeterol 250-50 mcg/dose (Advair Diskus) 1 inh inhalation BID 60 ea 5RF COPDE 30 days Coding Level of Care Code Est Pt Level 3 (46557) Diagnoses Pulmonary emphysema, unspecified emphysema type J43.9 COPD type: emphysema Emphysema type: unspecified Respiratory failure with hypoxia J96.91 Pulmonary nodule R91.1
--- OUTSIDE RECORDS SUMMARY | 2025-01-16 10:57 | XMS_ITS | Patient Health Record ---
[facility] Address [address] [place] [address] Care Team Providers Care Client Operations Manager Name Role Phone Chiquis Grajeda Primary Care Provider Ijeoma Love Unavailable [phone] Allergies Allergen (clinical drug ingredient) Drug/Non Drug Allergy documented on EMR Reaction Allergy Type Onset Date Status ibuprofen Advil Unknown Drug Allergy Active aspirin Aspirin Unknown Drug Allergy Active sulfamethoxazole / trimethoprim Bactrim Unknown Drug Allergy Active ibuprofen Ibuprofen Unknown Drug Allergy Active Keflex Unknown Drug Allergy Active Results Component Value Reference Range Notes HEMOGLOBIN A1C (GLYCOHEMOGLO BIN) Reviewed date:09/03/2024 08:15:26 AM Interpretation: Performing Lab: Notes/Report: HEMOGLOBIN A1C % (HH) 7.3 Reason For Referral No Information Medications Medication SIG (Take, Route, Frequency, Duration) Notes Start Date End Date Status Gabapentin Active Actos Active Jardiance Active Vitamin D3 Active Remeron 30 MG 1 tablet at bedtime Orally Once a day Active Vitamin B 12 Active cloNIDine Active Colace Active Fenofibrate Active Extra Depth Orthopedic Shoes (1 Pair) with Customized Heat Molded Multidensity Innersoles (3 Pair) as directed Dx: NIDDM/Polyneuropathy (E11.42), Hammertoe Foot Deformity (M20.41,M20.42), Preulcerative Skin Lesion(s) (L85.1 03/27/2024 Active Lipitor Active Insulin Active SEROquel Not-Taking NexIUM Active Abilify Active Extra Depth Orthopedic Shoes (1 Pair) with Customized Heat Molded Multidensity Innersoles (3 Pair) as directed Dx: NIDDM/Polyneuropathy (E11.42), Hammertoe Foot Deformity (M20.41,M20.42), Preulcerative Skin Lesion(s) (L85.1 Active Social History Tobacco Use: Social History Observation Description Date Details (start date - stop date) Current Smoker NA - NA Tobacco use other than smoking: Question Answer Notes Are you an other tobacco user? Yes Tobacco Control (Standard) Question Answer Notes Tobacco use: Current smoker How often do you smoke cigarettes? Every day How many cigarettes a day do you smoke? 11-20 How soon after you wake up do you smoke your fir st cigarette? Within 5 minutes Are you interested in quitting? Not ready to katherine t AUDIT-C (Standard) Question Answer Notes Did you have a drink containing alcohol in the p ast year? No Points 0 Interpretation Negative Problems Problem Type SNOMED Code ICD Code Onset Dates Problem Status W/U Status Risk Notes Problem Acquired hammer toe of right foot (3894303750185145 ) Other hammer toe(s) (acquired), right foot (M20.41) Active confirmed Problem Acquired hammer toe of left foot (1750050198550834 ) Other hammer toe(s) (acquired), left foot (M20.42) Active confirmed Problem Polyneuropathy due to type 2 diabetes mellitus (844054614) Type 2 diabetes mellitus with diabetic polyneuropathy (E11.42) Active confirmed Vital Signs Blood pressure diastolic 55 mm Hg 11/23/2024 Height 5ft5.5in in 11/23/2024 Blood pressure systolic 100 mm Hg 11/23/2024 Weight 187 lbs 11/23/2024 BMI 30.64 kg/m2 11/23/2024 Encounters Encounter Location Date Provider Diagnosis [facility] [address] 03/27/2024 Ijeoma Joseph Type 2 diabetes mellitus with diabetic polyneuropathy E11.42 ; Other hammer toe(s) (acquired), right foot M20.41 and Other hammer toe(s) (acquired), left foot M20.42 [facility] [address] 06/19/2024 Ijeoma Joseph Other hammer toe(s) (acquired), right foot M20.41 ; Xerosis of skin L85.3 ; Type 2 diabetes mellitus with diabetic polyneuropathy E11.42 and Other hammer toe(s) (acquired), left foot M20.[address] [address] 08/31/2024 Ijeoma Joseph Other hammer toe(s) (acquired), right foot M20.41 ; Xerosis of skin L85.3 ; Type 2 diabetes mellitus with diabetic polyneuropathy E11.42 and Other hammer toe(s) (acquired), left foot M20.[address] [address] 11/23/2024 Ijeoma Joseph Type 2 diabetes mellitus with diabetic polyneuropathy E11.42 ; Other hammer toe(s) (acquired), right foot M20.41 and Other hammer toe(s) (acquired), left foot M20.[address] [address] 08/31/2024 Ijeoma Joseph Assessments Encounter Date Diagnosis (ICD Code) Assessment [...] 06/19/2024 Xerosis of skin (ICD-10 - L85.3) 08/31/2024 Other hammer toe(s) (acquired), right foot (ICD-10 - M20.41) Patient Educated with: DIABETIC FOOT CARE INSTRUCTIONS. pdf (DIABETIC FOOT CARE INSTRUCTIONS. pdf) 08/31/2024 Xerosis of skin (ICD-10 - L85.3) 11/23/2024 Type 2 diabetes mellitus with diabetic polyneuropathy (ICD-10 - E11.42) 11/23/2024 Other hammer toe(s) (acquired), right foot (ICD-10 - M20.41) Patient Educated with: DIABETIC FOOT CARE INSTRUCTIONS. pdf (DIABETIC FOOT CARE INSTRUCTIONS. pdf) 06/19/2024 Type 2 diabetes mellitus with diabetic polyneuropathy (ICD-10 - E11.42) 08/31/2024 Type 2 diabetes mellitus with diabetic polyneuropathy (ICD-10 - E11.42) 03/27/2024 Other hammer toe(s) (acquired), left foot (ICD-10 - M20.42) 06/19/2024 Other hammer toe(s) (acquired), left foot (ICD-10 - M20.42) 08/31/2024 Other hammer toe(s) (acquired), left foot (ICD-10 - M20.42) 11/23/2024 Other hammer toe(s) (acquired), left foot (ICD-10 - M20.42) 11/23/2024 Other Patient Educated with: DIABETIC FOOT CARE INSTRUCTIONS. pdf (DIABETIC FOOT CARE INSTRUCTIONS. pdf) Plan Of Treatment Next Appt Details Provider Name:Ijeoma pitts, 02/26/2025 11:15:00 AM, [address] [place] [address], [phone], Insurance Providers Payer Name Payer Address Payer Phone Subscriber Number Group Number Insured Name Patient Relationship to Insured Coverage Start Date Coverage End Date [facility] [address] [facility] [place] [id number] Sofiya Rivas Self - patient is the insured Medical (General) History Medical History History ICD Code Anxiety Arthritis Back,Hip,and Knee pain Cataracts Depression Diabetic Glaucoma Lung disease Macular degeneration Numbness Reflux ( GERD) thyroid Measles Chicken pox Joint implants/screws Transfusions Surgical History Surgery Date(Month/Year) back surgery [id number] facial cosmetic surgery 1977 spine surgery 11/16/2023 Hospitalization History Reason Date(Month/Year) [facility] spine surgery 11/16/2023
--- OUTSIDE RECORDS SUMMARY | 2025-01-16 10:57 | XMS_ITS ---
Author Name [facility] Organization Unknown Encounters Encounter Type Encounter Reason Primary Diagnosis Location Date Observation Dorsalgia, unspecified Dorsalgia, unspecified [facility] 07/20/2023 Care Team Organization Name Specialty Phone Email Start Date End Da te [facility] PO Primary Care 07/21/2023 [facility] NO PCP Primary Care 07/21/2023 [facility] 07/21/2023 09/12/2024 [facility] 07/21/2023
--- OUTSIDE RECORDS SUMMARY | 2025-01-16 10:57 | XMS_ITS | Clinical Summary ---
Author Organization [facility] Address [address] [place] [address] Care Team Providers Care Procurement Buyer Name Role Phone Chiquis Grajeda MD Primary Care Provider [phone] Social History Tobacco Use Types Packs/Day Years [...] 2) 2000 Colorectal Cancer Screening: Colonoscopy 07/21/2023 Falls Risk Assessment 07/21/2023 Hepatitis C Screening 07/21/2023 Osteoporosis Screening (Bone Density Screening) 07/21/2023 Social Influencers of Health Screening 07/21/2023 COVID-19 Vaccine ( - 2023-2 5 season) 2024 Depression Screening 06/27/2024 Influenza Vaccine (#1) 2025 RSV Immunization Adult Patie nts (1 - 1-dose 75+ series) 2025 HIB [...] age to complete this topic Meningococcal B Vaccine Aged Out No l onger eligible based on patient's age to complete this topic RSV Immunization Patients Un agnieszka 20 months Aged Out No longer eligible b ased on patient's age to complete this topic Varicella Vaccines Aged Out No longer eligible based on patient's age to complete this topic Care Teams Procurement Buyer Relationship Specialty Start Date End Date Chiquis Grajeda MD [address] [place] [address] Dr [address] [facility] [place] [address] PCP - General 12/01/22
--- OUTSIDE RECORDS SUMMARY | 2025-01-16 10:57 | XMS_ITS | Data Portability ---
Author Organization [facility], [facility] Address [address] [place] [address] Care Team Providers Care Residential Finish Carpenter Name Role Phone KALA FIERRO Primary Care Provider [phone] HIM CCA OTHER Assessment Encounter Date Assessment Date Assessment LastModified by Organization Details LastModified Time 01/25/2022 01/25/2022 I have reviewed and agree with the assessment and plan as documented by the merchandise director. I provided real-time medical direction for this [...] Assessment and Plan as documented by the Tank Farm Attendant. Patient given the opportunity to ask questions. Advised if develops CP/severe SOB/turning blue/uncontrolle d n/v/d or black/bloody emesis or stool/ AMS/ syncope/ hi fever to call 911- verbalized understanding of instructions [email or web address] Not available 02/23/2023 11:45:02 09/25/2024 09/25/2024 I provided real -time medical direction via phone for this encounter, and was available for additional phone based assistance as needed. I have reviewed and agree with the Assessment and Plan as documented by the Tank Farm Attendant. We discussed the diagnostic uncertainty of home [...] verbalized understanding of instructions to the medic. Not available 09/25/2024 16:00:31 Plan of Treatment Reminders Order Date Submit Date Provider Last Modified By Organization Details Last Modified Time Details Appointments None recorded. Lab urinalysis, dipstick 2024 025 [facility], [address] [place] [address], [id number] 5 07:53:38 rapid SARS CoV 2 Ag, QL IA, respiratory specimen 2022 023 [email or web address] 0 [facility], [address] [place] [address], [id number] 3 11:00:43 rapid flu (A+B) 2022 023 [email or web address] 0 [facility], [address] [place] [address], [id number] 3 11:00:43 BMP, serum or plasma 2022 023 [email or web address] 0 [facility], [address] [place] [address], [id number] 3 13:32:46 Referral None recorded. Procedures None recorded. Surgeries None recorded. [facility]card [facility]ogram 2024 [facility]25 [facility] [address] [place], [address] 5 16:39:35 Medication Orders prednisone 20 mg tablet 2024 025 [email or web address] 0 [facility]/Pharmacy #[id number], [address] [place], [address], 5 15:41:55 cyclobenzap rine 5 mg tablet 2024 025 [facility]/Pharmacy #0674, [address] [place], [address], 5 15:49:51 prednisone 20 mg tablet 2024 025 [facility] [address] [place], [address], 5 15:49:51 prednisone 20 mg tablet 2022 023 [facility], [address] [place], [address], 3 11:44:47 prednisone 20 mg tablet 2022 023 [email or web address] 0 [facility] [address] [place], [address], 3 11:44:43 molnupiravi r 200 mg capsule (EUA) 2022 023 [facility] [address] [place], [address], 3 11:44:46 Anbesol (benzocaine ) 10 % oral mucosal liquid 2021 022 [facility] [address] [place], [address], 2 20:01:49 Patient TargetsNo targets recorded. Patient InstructionsNo instructions recorded. Reason for Referral None Reported. Results Created Date Observation Date Name Description Value Unit Range Abnormal Flag Note LastModifiedBy Organization Detail LastModifiedTime 02/24/2002/23/2023 BMP, serum or plasm a BUN 8 Not Available [facility] [address] [place] [address], [id number] 02/23/2023 11:45:10 02/24/20 23 02/23/2023 BMP, serum or plasm a Ca Ionize d calciu m 1.18 Not Available Main - Inst ed [address] [place] [address], [id number] 02/23/2023 11:45:10 02/24/2002/23/2023 BMP, serum or plasm a CI- 98 Not Available Main - Ins [address], [address] [place] [address] 02/23/2023 11:45:10 02/24/2002/23/2023 BMP, serum or plasm a CRE 0.7 Not Available Main - Ins [address], [address] [place] [address] 02/23/2023 11:45:10 02/24/20 23 02/23/2023 BMP, serum or plasm a GLU 187 after OJ Not Available [facility] ed [address] [place] [address], [address] [place] [address] 02/23/2023 11:45:10 02/24/20 23 02/23/2023 BMP, serum or plasm a K+ 3.8 Not Available Main - Ins [address], [address] [place] [address] 02/23/2023 11:45:10 02/24/20 23 02/23/2023 BMP, serum or plasm a Na+ 143 Not Available Main - Ins [address], [address] [place] [address] 02/23/2023 11:45:10 02/24/20 23 02/23/2023 BMP, serum or plasm a tCO2 25 Not Available [facility] - [address], [address] [place] [address] 02/23/2023 11:45:10 02/24/2002/23/2023 rapid flu (A+B) Flu negati ve Not Available [facility] ed [address] [place] [address], [address] [place] [address] 02/23/2023 10:58:20 02/24/2002/23/2023 rapid SARS CoV 2 Ag, QL IA, respi rator y speci men rapid SARS CoV 2 Ag, QL IA, respiratory specimen positi ve Not Available [facility] ed [address] [place] [address], [address] [place] [address] 02/23/2023 10:58:11 09/26/1909/25/2024 elect khanh diogr am No observ ation record ed. [email or web address] [facility] [address] [place] [address], [address] [place] [address] 09/26/2024 07:53:58 Result Notes None recorded. Medical Equipment None Reported. Allergies Allergen ID Allergen Name Allergen Category Reaction Reaction Severity Criticality Documentation Date Start Date Code Code System Note Provider Name and Address Organization Details Recorded Time 71479 Non-stero idal anti-infl ammatory agent (product) medicatio n Not available Not available Not available 09/25/2024 20256 005 SNOMED Not Available [facility] - production 5 11:35:33 3135 ibuprofen medicatio n Not available Not available Not available 02/23/2023 5640 RxNorm Not Available [facility] - production 5 11:35:33 3136 aspirin medicatio n Not available Not available Not available 02/23/2023 1191 RxNorm Not Available [facility] - production 5 11:35:33 3137 Ultram medicatio n Not available Not available Not available 02/23/2023 62878 6 RxNorm Sally Blancas MD [address] [place] [address],[address], [place], [address], [employer] 3 10:59:42 3138 Geodon medicatio n Not available Not available Not available 02/23/2023 87535 4 RxNorm Sally Blancas MD [address] [place] [address],[address], [place], [address], [employer] 3 10:59:47 Medications Name Sig Start Date [...] Heart rate Body height Respiratory rate Systolic And Diastolic Provider Name and Address Organization Details Last Updated DateTime 5 90 % 90 % 97.4 [degF] 71666.8 88 g 82 /min 167.64 cm 18 /min 148/82 mm[Hg] Not Available [employer] 5 15:38:48 Date Recorded Oxygen saturation Oxygen saturation in Arterial blood by Pulse oximetry Heart rate Body temperature Respiratory rate Systolic And Diastolic Provider Name and Address Organization Details Last Updated DateTime 2 98 % 98 % 76 /min 97.9 [degF] 18 /min 133/87 mm[Hg] Not Available [facility] [employer] 2 19:51:54 Date Recorded Respiratory rate Heart rate Body temperature Oxygen saturation Oxygen saturation in Arterial blood by Pulse oximetry Inhaled oxygen flow rate Systolic And Diastolic Provider Name and Address Organization Details Last Updated DateTime 3 20 /min 83 /min 98.5 [degF] 93 % 93 % 2 L/min 104/64 mm[Hg] Not Available [facility] - production 3 [...] Note 3084 Maryam Acevedo MD Main - [address] [address] 01/25/2022 19:51:49 03/03/2022 12:49:36 Aphthous ulcer of mouth 358122555 K12.0 14123 Sally Blancas MD Main - instED [address] [place] [address] 02/23/2023 10:50:46 02/23/2023 23:49:31 Acute exacerbation of chronic obstructive pulmonary disease [id number] J44.1 Offered patient nebulizer she declines. She does have a nebulizer at home/ duoneb meds at [facility] but will not use because [...] to symptom onset) and her PCP COVID-19 [id number] U07.1 Reviewed meds with the patient and [...] pat states prednisone helps cough in past 75591 Sally Blancas MD Main - instED [address] [place] [address] 09/25/2024 15:38:46 09/25/2024 19:44:24 Chronic back pain [id number] G89.29 w/ acute exacerbati on Patient has [...] to affected area low back Urinary symptoms 5634932 08 R39.9 bs was 105 this morning [...] sf fluids Chronic ob structive pulmonary disease 93661259 J44.9 Offered patient nebulizer due to rhonchi [...] a lung scan soon Intermitte nt palpitations [id number] R00.2 Towards the end of the visit [...] Kingsley Member ID Guarantor Name 02/23/2023 1 [facility] - DOS PRIOR TO 2022 - DUAL ELIGIBLE (MEDICARE REPLACEMENT/ADV ANTAGE - HMO) Sofiya Rivas [id number] Sofiya Rivas 09/25/2024 1 [facility] - DOS ON OR AFTER 2022 - DUAL ELIGIBLE - SNF OPTIONS AND ONE CARE (MEDICARE REPLACEMENT/ADV ANTAGE - HMO) Sofiya Rivas [id number] Sofiya Rivas Notes Date Note Type Note [...] Protocol Used: Mouth Pain Protocol-Based Disposition: Consider Connie, RADHA Community clinician, MD/COLUMNIST triage, PCP, or Urgent Care Visit within 4 Hours ..................... ..................... ..................... ..................... ..................... ..................... ............... CRC Nursing Assessment: Comments: CRC Rn did not need further info to process visit Maryam Acevedo MD [address] [facility],[address], [place], [address], [employer] 01/25/2022 20:01:58 02/23/2023 text/html ROS as noted in the HPI CRC Nursing Assessment: Reason For Request: COPD [...] ..................... ..................... ..................... ..................... ..................... ..................... ............... Tank Farm Attendant Note From Carlos Stuart: Per CRC: Member [...] up with PCP tomorrow. Red flags discussed [facility] clear. [facility] Lab Orders: rapid SARS CoV 2 Ag, QL IA, respiratory specimen: Performed rapid flu (A+B): Performed BMP, serum or plasma: Performed [facility] Medication Orders: prednisone 20 mg tablet: Administered ..................... ..................... ..................... ..................... ..................... ..................... ............... Disposition: Fulfilled Sally Blancas MD [address] [facility],[address], [place], [address], [employer] 02/23/2023 13:35:59 09/25/2024 text/html ROS as noted in the [facility] CRC Nurse Triage Notes (Kelly Wall): Reason [...] Assessment: Level 8 out of 10 Comments: Pantograph Engraver verified the name//address and phone number. Pt [...] s/s and seek emergency treatment if need Tank Farm Attendant Organization Information for Roxanna Nichols Business Legal Name: [employer]. Address: [address] [place] [address], Retail Selling Floor Leader: Khadar WANG No.: [id number] Tank Farm Attendant POC Test Results from Roxanna Nichols Urine [...] ..................... ..................... ..................... ..................... ..................... ..................... ............... Tank Farm Attendant Note From Roxanna Nichols: ELDER makes pt [...] touched it , as well as heat. [facility] obtains vital signs and pt is assessed. [...] clear of any redness, swelling, or bruising. [facility] contacts [facility] and discusses the above. [facility] orders a UA as well as 40mg prednisone PO for back pain and inflammation. Pt is able to provide a urine sample for UA. UA is negative for infection, however, urine glucose is high. After physical exam and UA, pt tells [facility] she has been having profuse night sweats, Like I'm going through menopause again! and she has been coughing up, [id number] phlegm and having some heart palpitations. [facility] orders a 12-lead EKG. EKG is obtained and found to be unremarkable. [facility] informs pt that a CXR is recommended. [facility] prescribes prednisone and cyclobenzaprine for pt's back pain and stresses the importance of monitoring her glucose levels, using her insulin, and watching her diet. [facility] says pt can increase the cyclobenzaprine dose from 5mg to 10mg, if needed. She also tells pt 3G Tylenol per day is the max dose she should take for her weight. Pt is advised to use ice and heat on her back as well. [facility] tells pt to contact her PCP tomorrow to touch base about the pain and her blood sugar. [facility] also tells pt she needs to go to the ED if she develops cp, severe sob, high fever w/ cough, uncontrollable n/v/d, black/bloody stools or urine, focal weakness, or syncope. [facility] administers 40mg prednisone (2 tablets) PO to the pt. Pt states her verbal understanding of [facility] instructions and thanks [facility] for coming. [facility] is clear. Report completed by GWYN Nichols [id number]. [facility] Lab Orders: urinalysis, dipstick: Performed [facility] Medication Orders: prednisone 20 mg tablet: Administered ..................... ..................... ..................... ..................... ..................... ..................... ............... [facility] Consulted: Sally Blancas ..................... ..................... ..................... ..................... ..................... ..................... ............... Disposition: Fulfilled Sally Blancas MD [address] [facility],[address], [place], [address], RUBI Liii[employer]VANIA LOFTON 09/25/2024 17:07:04 OBGyn Episode No OBEpisode recorded.
--- OUTSIDE RECORDS SUMMARY | 2025-01-16 10:57 | XMS_ITS | Clinical Summary ---
Author Organization [facility] Address [address] [place] [address] Care Team Providers Care Station Mechanic Apprentice Name Role Phone Chiquis Grajeda MD Primary Care Provider [phone] Allergies Active Allergy Reactions Criticality Noted Date [...] Max Daily Amount: 30 mg 24 tablet Active Active Problems Problem Noted Date Diagnosed [...] 56 07/27/2023 8:00 AM EST Temperature 36.8 C (98.3 F) 07/27/2023 8:00 AM EST Respiratory Rate 18 07/27/2023 8:00 AM EST [...] 99 mg/dL 07/25/2023 8:26 AM EST [facility] Comment:Fasting: <100 mg/dL, Non-Fasting: <200 mg/dL (ADA 2005) Blood Urea Nitrogen (BUN) 12 8 - 21 mg/dL 07/25/2023 8:26 AM EST [facility] Creatinine 0.6 0.4 - 1.1 mg/dL 07/25/2023 8:26 AM [facility] eGFR >90 >59 07/25/2023 8:26 AM [facility] Comment:CKD-EPI (2020) in mL /min/1.73 sq meters. Sodium 142 136 - 145 mmol/L 07/25/2023 8:26 AM [facility] Potassium 4.0 3.4 - 5.3 mmol/L 07/25/2023 8:26 AM [facility] Chloride 103 98 - 107 mmol/L 07/25/2023 8:26 AM [facility] CO2 25 22 - 33 mmol/L 07/25/2023 8:26 AM [facility] Calcium 9.3 8.7 - 10.5 mg/dL 07/25/2023 8:26 AM [facility] Alkaline Phosphatase 62 32 - 122 U/L 07/25/2023 8:26 AM [facility] Aspartate Aminotrans (AST) 57(H) 10 - 50 U/L 07/25/2023 8:26 AM [facility] Alanine Aminotrans (ALT) 36 10 - 50 U/L 07/25/2023 8:26 AM [facility] Bilirubin, Total 0.6 0.2 - 1.0 mg/dL 07/25/2023 8:26 AM [facility] Protein, Total 5.8(L) 6.3 - 8.3 g/dL 07/25/2023 8:26 AM [facility] Albumin 3.4 3.4 - 4.8 g/dL 07/25/2023 8:26 AM [facility] BUN/Creatinine Ratio 20 10.0 - 25.0 Ratio 07/25/2023 8:26 AM [facility] Globulin 2.4 1.5 - 3.9 g/dL 07/25/2023 8:26 AM [facility] Albumin/Globulin Ratio 1.4 1.0 - 3.0 Ratio 07/25/2023 8:26 AM [facility] Anion Gap 14 7 - 17 07/25/2023 8:26 AM [facility] Blood specimen (specimen) (Plasma/Serum) 07/25/2023 6:49 AM EST 07/25/2023 6:56 AM EST Mary Mason DO LAB BLOOD ORDERABLES Final Resul t Performing Organization Address [facility] Co de Phone Number [address] [address], [facility] [address] [place] [address] * (ABNORMAL) HEMOGLOBIN A1C WITH ESTIMATED AVERAGE GLUCOSE (07/21/2023 1:11 AM EST) Hemoglobin A1C 7.0(H) <5.7 % 07/21/2023 1:42 PM EST [facility] Comment: A1c% Interpretation 5.7 - 6.0 Increase risk of diabetes 6.1 - 6.4 Higher risk of diabetes > or = 6.5 Consistent with diabetes Diabetes Care, 33(Supp 1):S1-S61, 2010 Estimated Average Glucose 154 mg/dL 07/21/2023 1:42 PM EST [facility] Blood specimen / Unknown 07/21/2023 1:11 AM EST 07/21/2023 1:59 AM EST Bernie Tony DO LAB BLOOD ORDERABLES Final Result [address] [address], [place] [address] from Last 3 Months or Most Recently Relevant to Health Maintenance Insurance MEDICARE PART A & B MEDICAID OUT OF STATE [facility] MEDICARE PART A & B [facility] [place] OUT OF NETWORK Advance Directives * DNR (Latest Code Status on File) Date Activated Date Inactivated Comments 07/21/2023 5:56 PM DNR/ DNI Question Answer Comments Decision thoroughly discussed with: Patient * Full Code Date Activated Date Inactivated Comments 07/21/2023 6:54 AM 07/21/2023 5:56 PM Care Teams Station Mechanic Apprentice Relationship Specialty Start Date End Date Chiquis Grajeda MD [address] [place] [address] [place] [address] PCP - General Internal Medicine 07/21/23
== END 2025-01-16 10:28 | disposition home or self-care (01) ==
LOC: HO.HPS 10:06
PROVIDERS: PCP Internal Medicine; Visit Provider Internal Medicine
DX: J43.9 Emphysema, unspecified (principal); J96.91 Respiratory failure, unspecified with hypoxia; R91.1 Solitary pulmonary nodule
CPT/HCPCS: 99213

== ENCOUNTER → 2025-01-16 10:05 | Outpatient (BNVA) | payer OTHER, SELFPAY | PROVIDERS: PCP Internal Medicine; Visit Provider Internal Medicine | DX: J96.91 Respiratory failure, unspecified with hypoxia (principal); J43.9 Emphysema, unspecified; R91.1 Solitary pulmonary nodule; Z99.89 Dependence on other enabling machines and devices | CPT/HCPCS: 99212 ==

== ENCOUNTER 2025-01-28 10:14 | Outpatient (AMB) | payer OTHER, SELFPAY ==
--- NOTE | 2025-01-28 10:26 | A.OFFVIS_ITS ---
Vital Signs 01/28/25 10:27 Height 5 ft 5 in Weight 182 lb 15.739 oz BMI 30.4 BP 110/66 Blood Pressure Location Lt brachial Position Sitting Pulse 85 Intake Visit Reasons: [facility] Intake Note: Follow-up ED from October state heart rate was in the 30 doing ekg today c/o some chest pain at times very quick Transport Coordinator Required: No Dross Skimmer: Dross Skimmer Present Accompanied by: STONEMASON APPRENTICE Allergies aspirin (ASPIRIN) Allergy (Severe, Verified 01/16/25 10:20) GI bleed, stomach upset ibuprofen (IBUPROFEN) Allergy (Severe, Verified 01/16/25 10:20) GI Bleed, stomach upset valsartan (From Diovan) Allergy (Severe, Verified 01/16/25 10:20) hives ziprasidone (From Geodon) Allergy (Severe, Verified 01/16/25 10:20) RASH-PALPITATIONS azithromycin Allergy (Intermediate, Verified 01/16/25 10:20) facial swelling metformin (METFORMIN) Allergy (Intermediate, Verified 01/16/25 10:20) NAUSEA & VOMITING, GI upset cephalexin (From KEFLEX) Allergy (Unknown, Verified 01/16/25 10:20) can't remember lisinopril Allergy (Unknown, Verified 01/16/25 10:20) cough NSAIDS (Non-Steroidal Anti-Inflamma (NSAIDS (NON-STEROIDAL ANTI-INFLAMMA) Adverse Reaction (Severe, Verified 01/16/25 10:20) HX OF GI BLEED tramadol (Ultram) Adverse Reaction (Severe, Verified 01/16/25 10:20) GI upset sulfamethoxazole (From Bactrim) Adverse Reaction (Intermediate, Verified 01/16/25 10:20) Hives tiotropium (From Spiriva with HandiHaler) Adverse Reaction (Intermediate, Verified 01/16/25 10:20) Unknown trimethoprim (From Bactrim) Adverse Reaction (Intermediate, Verified 01/16/25 10:20) Hives doxycycline Adverse Reaction (Mild, Verified 01/16/25 10:20) Stomach Upset Medication List - Last Reconciled 01/28/25 by Misael Mcallister MD acetaminophen 1,000 mg (2 x 500 mg) PO TID PRN albuterol sulfate 90 mcg/actuation 2 puffs inhalation Q4H PRN 60 days aripiprazole 20 mg PO DAILY atorvastatin 40 mg PO BEDTIME brimonidine 0.15% 1 drp ophthalmic (eye) BID cholecalciferol (vitamin D3) 50 mcg PO BEDTIME clonazepam 0.5 mg PO BID PRN cyanocobalamin (vitamin B-12) (Vitamin B-12) 500 mcg PO DAILY 90 days [dressing stick As directed] [easy on sock aid As directed] empagliflozin (Jardiance) 25 mg PO DAILY esomeprazole magnesium 40 mg PO DAILY@0630 fenofibrate 160 mg PO DAILY fexofenadine 180 mg PO DAILY flash glucose sensor (FreeStyle Jill 2 Sensor kit) As directed fluticasone propion-salmeterol 250-50 mcg/dose (Advair Diskus) 1 inh inhalation BID gabapentin 600 mg PO TID 30 days guaifenesin ER (Mucinex) 600 mg PO BID insulin aspart U-100 (Novolog FlexPen U-100 Insulin aspart) Novolog sliding scale 3 times daily with breakfast and lunch (200-250: 6 units, 251-300: 8 units, 301 - 350: 10 units, >350: 12 units) Novolog sliding scale with dinner (150-199: 6 units, 200-250: 8 units, 251-300 10 units, 301-350: 12 units, >350 take 14 units) Max daily dosing/24 hours 38 units insulin degludec (Tresiba FlexTouch U-100 insulin) 44 units (0.44 mL) subcut DAILY levothyroxine 25 mcg PO DAILY@0600 liraglutide (Victoza 3-Jeanmarie) 1.8 mg (0.3 mL) subcut DAILY 90 days mirtazapine 30 mg PO BEDTIME netarsudil-latanoprost 0.02-0.005 % (Formerly [facility]) 1 drp ophthalmic (eye) BEDTIME [new lift chair As directed] pen needle, diabetic (Comfort EZ Pen [place]) As directed injects 3 X/day pioglitazone (Actos) 30 mg PO BEDTIME quetiapine 50 mg PO BID PRN Shower Chair As directed [Transfer wheelchair As directed] vit C,H-Ft-bcvvk-lutein-zeaxan 250-90-40-1 mg (PreserVision AREDS-2) 1 cap PO BID [WHEELCHAIR As directed] HPI Comments Details: Sofiya comes after a long gap. She was recently admitted in August with COPD exacerbation at that time was noted to have slow heart rate although no cardiology consult was done. Patient since then has continued to smoke. She continues to exertional shortness of breath and wheezing. She is currently followed by Pulmonary. She has not had any palpitations, lightheadedness, syncope. Complains of sternal chest pain with excessive coughing which is reproducible. Does not have any exertional chest pain. No clear orthopnea, PND, leg edema. [facility] Medical History Respiratory failure with hypoxia Tobacco dependence Hypothyroid Macular degeneration Acute exacerbation of chronic obstructive pulmonary disease (COPD) Dermatitis of vulva Uses wheelchair Wears dentures Supplemental oxygen dependent Slow to wake up after anesthesia Lumbar spinal stenosis Smoker Nicotine dependence, cigarettes, uncomplicated Acute respiratory failure with hypoxia Vulvar ulcer Recurrent major depression-severe Lower extremity pain Sialoadenitis Jaw pain العلي (dyspnea on exertion) Chest pain Osteopenia (~2015) Sinus tachycardia Pulmonary nodule Menopausal state Artificial menopause state Constipation Nocturnal hypoxemia COPD (chronic obstructive pulmonary disease) Spinal stenosis Depression Vitamin D deficiency Multinodular thyroid HLD (hyperlipidemia) T2DM (type 2 diabetes mellitus) (~2008) Surgical History History of cataract surgery S/P thyroid biopsy History of lithotripsy History of cardiac catheterization Hx of colonoscopy Hx of arthroscopy of left knee Hx of spinal fusion Hx of cholecystectomy Family History Father No problems noted. Mother Cancer Diabetes Social History Household Members: None Housing: Apartment Are you a primary rn homecare to a significant other at home: No Do you presently have visiting nurse or other home services: Yes Alcohol intake: never Comment: aware of trip hazard Patient Tobacco Use Status: Current everyday Tobacco user Smoking Start Date: 04/01/1964 Tobacco use type: Cigar Cigarette Packs Per Day: 0.5 Cigarettes Per Day: 8 Years Smoked: 60 e-Cigarette/Vaping Use: Currently Using Second Hand Smoke Exposure: No Advance Directives Date on File: 12/02/22 service: No Current occupational status: retired Sexual orientation: Straight/Heterosexual Cognitive needs: No Hearing needs: No Vision needs: Yes Female Reproductive History Menstrual Age of Menarche: 12 Review of Systems Const Denies chills, Denies fatigue, Denies fever(s), Denies frequent falls, Denies weakness, Denies weight gain and Denies weight loss ENT Denies dizziness Card Denies chest pain, Denies leg edema, Denies lightheadedness, Denies palpitations, Denies dyspnea, Denies dyspnea on exertion, Denies orthopnea and Denies other (loss of consciousness) Resp Denies cough, Denies dyspnea and Denies dyspnea on exertion GI Denies hematochezia and Denies change in stool character Musc Denies abnormal gait, Denies muscle weakness, Denies numbness, Denies radiating pain into limb and Denies tingling Neuro Denies Abnormal speech present, Denies abnormal gait, Denies dizziness, Denies frequent falls, Denies numbness, Denies tingling and Denies weakness Endo Denies fatigue and Denies palpitations Physical Exam Vital Signs: Last Vital Signs Pulse 85 01/28/25 10:27 BP 110/66 01/28/25 10:27 BMI result Body Mass Index 30.4 Const General: cooperative, comfortable, no acute distress, alert and awake Nutritional Appearance: overweight Orientation/consciousness: patient oriented x3 Limitations: ambulation with walker HEENT Head: Yes normocephalic and Yes atraumatic Neck Neck: Yes trachea midline, Yes supple and Yes no JVD Resp Effort & Inspection: normal respiratory effort Auscultation: wheezes scattered wheezes and diminished lung sounds Cardio Jugular venous distension: no JVD Palpation: normal PMI Rate: regular rate Rhythm: regular rhythm Heart sounds: S1 normal heart sound present, S2 normal heart sound present, no click, no gallops, no murmurs and no rubs GI Auscultation: normal bowel sounds Skin General skin exam: no rashes or lesions noted Neuro General: patient oriented x3 and no focal motor deficits Speech: No Abnormal speech present Extrem General: Yes no clubbing, cyanosis or edema Office Procedures EKG Details: EKG shows normal sinus rhythm with right bundle-branch block 16342-[id number], Complete Assessment & Plan Assessment & Plan (1) Bradycardia: Code(s): R00.1 - Bradycardia, unspecified Category: Medical Plan: Patient reported bradycardia during hospitalization although no follow-up monitoring has been done. Patient has no obvious symptoms at current point in time that would suggest significant sick sinus syndrome. However suggest a event monitor to assess for the same. This will be scheduled in near future. Also suggest an echocardiogram to evaluate for cardiac structure and function to evaluate for pulmonary hypertension. These tests will be scheduled in near future. Will set up for follow-up after that. (2) Chest pain: Code(s): R07.9 - Chest pain, unspecified Plan: Chest pain which is very atypical and associated with coughing most likely suggestive of musculoskeletal chest pain. She has no exertional chest pain at this point time. If she has different symptoms, will pursue further ischemic workup. At this point time her main limiting factor is significant COPD and continued smoking. Discussed about smoking cessation. She says she has tried but is failed to stop smoking. Will follow up in the clinic in 2 months time, sooner p.r.n.. Thank you for allowing me to partake in her care Coding Level of Care Code Est Pt Level 4 (09628) Complex EM visit Add On G2211 Diagnoses Bradycardia R00.1 Chest pain R07.9 CPT Codes EKG - CPT: 86084-[id number], Complete ([id number])
[2025-01-28 10:27] VITALS: BP 110/66; PULSE 85; BMI 30.4
--- OUTSIDE RECORDS SUMMARY | 2025-01-28 10:51 | XMS_ITS | Patient Health Record ---
Author Organization [facility] Address [address] [place] [address] Care Team Providers Care Fire Control Technician G Name Role Phone Chiquis Grajeda Primary Care Provider Ijeoma Love Unavailable [phone] Allergies Allergen (clinical drug ingredient) Drug/Non Drug [...] Problem Acquired hammer toe of right foot (3504433680905067 ) Other hammer toe(s) (acquired), right foot (M20.41) Active confirmed Problem Acquired hammer toe of left foot (7262935309804977 ) Other hammer toe(s) (acquired), left foot (M20.42) Active confirmed Problem Polyneuropathy due to type 2 diabetes mellitus (286037894) Type 2 diabetes mellitus with diabetic polyneuropathy (E11.42) Active confirmed Vital Signs Blood pressure diastolic 55 mm Hg 11/23/2024 Height 5ft5.5in in 11/23/2024 Blood pressure systolic 100 mm Hg 11/23/2024 Weight 187 lbs 11/23/2024 BMI 30.64 kg/m2 11/23/2024 Encounters Encounter Location Date Provider Diagnosis [facility] [address] 03/27/2024 Ijeoma Joseph Type 2 diabetes mellitus with diabetic polyneuropathy E11.42 ; Other hammer toe(s) (acquired), right foot M20.41 and Other hammer toe(s) (acquired), left foot M20.[address] [facility] [address] 06/19/2024 Ijeoma Joseph Other hammer toe(s) (acquired), right foot M20.41 ; Xerosis of skin L85.3 ; Type 2 diabetes mellitus with diabetic polyneuropathy E11.42 and Other hammer toe(s) (acquired), left foot M20.[address] [address] 08/31/2024 Ijeoma Joseph Other hammer toe(s) (acquired), right foot M20.41 ; Xerosis of skin L85.3 ; Type 2 diabetes mellitus with diabetic polyneuropathy E11.42 and Other hammer toe(s) (acquired), left foot M20.[address] [address] 11/23/2024 Ijeoma Joseph Type 2 diabetes mellitus with diabetic polyneuropathy E11.42 ; Other hammer toe(s) (acquired), right foot M20.41 and Other hammer toe(s) (acquired), left foot M20.[address] [address] 08/31/2024 Ijeoma Joseph Assessments Encounter Date Diagnosis [...] Details Provider Name:Ijeoma pitts, 02/26/2025 11:15:00 AM, [address] [place] [address], [phone], Insurance Providers Payer Name Payer Address Payer Phone Subscriber Number Group Number Insured Name Patient Relationship to Insured Coverage Start Date Coverage End Date [facility] Box [facility] JAQUAN Lange [id number] Sofiya Rivas Self - patient is the insured Medical (General) History Medical History History ICD Code Anxiety Arthritis Back,Hip,and Knee pain Cataracts Depression Diabetic Glaucoma Lung disease Macular degeneration Numbness Reflux ( GERD) thyroid Measles Chicken pox Joint implants/screws Transfusions Surgical History Surgery Date(Month/Year) back surgery [id number] facial cosmetic surgery 1977 spine surgery 11/16/2023 Hospitalization History Reason Date(Month/Year) [facility] spine surgery 11/16/2023
--- OUTSIDE RECORDS SUMMARY | 2025-01-28 10:51 | XMS_ITS | Clinical Summary ---
Author Organization [facility] ity Address [address] [place] [address] Care Team Providers Care Technology Project Manager Name Role Phone Chiquis Grajeda MD Primary Care Provider [phone] Social History Tobacco Use Types Packs/Day Years [...] age to complete this topic Care Teams Technology Project Manager Relationship Specialty Start Date End Date Chiquis Grajeda MD [address] [place] [address] Dr [address] [facility] [place] [address] PCP - General 12/01/22
--- OUTSIDE RECORDS SUMMARY | 2025-01-28 10:51 | XMS_ITS | Clinical Summary ---
Author Organization [facility] Address [address] [place] [address] Care Team Providers Care Compressed Gas Equipment Mechanic Name Role Phone Chiquis Grajeda MD Primary Care Provider [phone] Allergies Active Allergy Reactions Criticality Noted Date [...] - 99 mg/dL 07/25/2023 8:26 AM EST [facility] Comment:Fasting: <100 mg/dL, Non-Fasting: <200 mg/dL (ADA 2005) Blood Urea Nitrogen (BUN) 12 8 - 21 mg/dL 07/25/2023 8:26 AM EST [facility] Creatinine 0.6 0.4 - 1.1 mg/dL 07/25/2023 8:26 AM [facility] eGFR >90 >59 07/25/2023 8:26 AM [facility] Comment:CKD-EPI (2020) in mL /min/1.73 sq meters. Sodium 142 136 - 145 mmol/L 07/25/2023 8:26 AM [facility] Potassium 4.0 3.4 - 5.3 mmol/L 07/25/2023 8:26 AM [facility] Chloride 103 98 - 107 mmol/L 07/25/2023 8:26 AM [facility] CO2 25 22 - 33 mmol/L 07/25/2023 8:26 AM [facility] Calcium 9.3 8.7 - 10.5 mg/dL 07/25/2023 8:26 AM [facility] Alkaline Phosphatase 62 32 - 122 U/L 07/25/2023 8:26 AM [facility] Aspartate Aminotrans (AST) 57(H) 10 - 50 U/L 07/25/2023 8:26 AM [facility] Alanine Aminotrans (ALT) 36 10 - 50 U/L 07/25/2023 8:26 AM [facility] Bilirubin, Total 0.6 0.2 - 1.0 mg/dL 07/25/2023 8:26 AM [facility] Protein, Total 5.8(L) 6.3 - 8.3 g/dL 07/25/2023 8:26 AM [facility] Albumin 3.4 3.4 - 4.8 g/dL 07/25/2023 8:26 AM [facility] BUN/Creatinine Ratio 20 10.0 - 25.0 Ratio 07/25/2023 8:26 AM [facility] Globulin 2.4 1.5 - 3.9 g/dL 07/25/2023 8:26 AM [facility] Albumin/Globulin Ratio 1.4 1.0 - 3.0 Ratio 07/25/2023 8:26 AM [facility] Anion Gap 14 7 - 17 07/25/2023 8:26 AM [facility] Blood specimen (specimen) (Plasma/Serum) 07/25/2023 6:49 AM EST 07/25/2023 6:56 AM EST Mary Mason DO LAB BLOOD ORDERABLES Final Resul t Performing Organization Address [place] Co de Phone Number [address] [address], [facility] [address] [place] [address] * (ABNORMAL) HEMOGLOBIN A1C WITH ESTIMATED AVERAGE GLUCOSE (07/21/2023 1:11 AM EST) Hemoglobin A1C 7.0(H) <5.7 % 07/21/2023 1:42 PM EST [facility] Comment: A1c% Interpretation 5.7 - 6.0 Increase risk of diabetes 6.1 - 6.4 Higher risk of diabetes > or = 6.5 Consistent with diabetes Diabetes Care, 33(Supp 1):S1-S61, 2010 Estimated Average Glucose 154 mg/dL 07/21/2023 1:42 PM EST [facility] Blood specimen / Unknown 07/21/2023 1:11 AM EST 07/21/2023 1:59 AM EST Bernie Tony DO LAB BLOOD ORDERABLES Final Result [address] [address], [place] [address] from Last 3 Months or Most Recently Relevant to Health Maintenance Insurance MEDICARE PART A & B MEDICAID OUT OF STATE [facility] A & B [facility] MEDICARE OUT OF NETWORK Advance Directives * DNR (Latest Code Status on File) Date Activated Date Inactivated Comments 07/21/2023 5:56 PM DNR/ DNI Question Answer Comments Decision thoroughly discussed with: Patient * Full Code Date Activated Date Inactivated Comments 07/21/2023 6:54 AM 07/21/2023 5:56 PM Care Teams Compressed Gas Equipment Mechanic Relationship Specialty Start Date End Date Chiquis Grajeda MD [address] [place] [address] [place] [address] PCP - General Internal Medicine 07/21/23
== END 2025-01-28 10:56 | disposition home or self-care (01) ==
LOC: HO.HCS 10:14
PROVIDERS: PCP Internal Medicine; Visit Provider Internal Medicine Cardiovascular Disease
DX: R00.1 Bradycardia, unspecified (principal); R07.9 Chest pain, unspecified
CPT/HCPCS: 93010; 99214; G2211

== ENCOUNTER → 2025-01-28 10:14 | Outpatient (BNVA) | payer OTHER, SELFPAY | PROVIDERS: PCP Internal Medicine; Visit Provider Internal Medicine Cardiovascular Disease | DX: R06.02 Shortness of breath (principal); R00.1 Bradycardia, unspecified; R07.9 Chest pain, unspecified; R05.8 Other specified cough | CPT/HCPCS: 93005; 99212 ==

== ENCOUNTER 2025-02-05 09:46 | Outpatient (REF) | payer OTHER, SELFPAY ==
--- OUTSIDE RECORDS SUMMARY | 2025-02-05 10:31 | XMS_ITS | Patient Health Record ---
Author Organization [facility] Address [address] [place] [address] Care Team Providers Care Farm Tractor Operator Name Role Phone Chiquis Grajeda Primary Care Provider Ijeoma Love Unavailable [phone] Allergies Allergen (clinical drug ingredient) Drug/Non Drug [...] Problem Acquired hammer toe of right foot (5133243558352965 ) Other hammer toe(s) (acquired), right foot (M20.41) Active confirmed Problem Acquired hammer toe of left foot (2394506281931288 ) Other hammer toe(s) (acquired), left foot (M20.42) Active confirmed Problem Polyneuropathy due to type 2 diabetes mellitus (391624145) Type 2 diabetes mellitus with diabetic polyneuropathy (E11.42) Active confirmed Vital Signs Blood pressure diastolic 55 mm Hg 11/23/2024 Height 5ft5.5in in 11/23/2024 Blood pressure systolic 100 mm Hg 11/23/2024 Weight 187 lbs 11/23/2024 BMI 30.64 kg/m2 11/23/2024 Encounters Encounter Location Date Provider Diagnosis [facility] [address] 03/27/2024 Ijeoma Joseph Type 2 diabetes mellitus with diabetic polyneuropathy E11.42 ; Other hammer toe(s) (acquired), right foot M20.41 and Other hammer toe(s) (acquired), left foot M20.42 [facility] [address] 06/19/2024 Ijeoma Joseph Other hammer toe(s) (acquired), right foot M20.41 ; Xerosis of skin L85.3 ; Type 2 diabetes mellitus with diabetic polyneuropathy E11.42 and Other hammer toe(s) (acquired), left foot M20.[address] [address] 08/31/2024 Ijeoma Joseph Other hammer toe(s) (acquired), right foot M20.41 ; Xerosis of skin L85.3 ; Type 2 diabetes mellitus with diabetic polyneuropathy E11.42 and Other hammer toe(s) (acquired), left foot M20.[address] [address] 11/23/2024 Ijeoma Joseph Type 2 diabetes mellitus with diabetic polyneuropathy E11.42 ; Other hammer toe(s) (acquired), right foot M20.41 and Other hammer toe(s) (acquired), left foot M20.[address] [address] 08/31/2024 Ijeoma Joseph Assessments Encounter Date Diagnosis [...] Details Provider Name:Ijeoma pitts, 02/26/2025 11:15:00 AM, [address] [place] [address], [phone], Insurance Providers Payer Name Payer Address Payer Phone Subscriber Number Group Number Insured Name Patient Relationship to Insured Coverage Start Date Coverage End Date [facility] Box [facility] JAQUAN Lange [id number] Sofiya Rivas Self - patient is the insured Medical (General) History Medical History History ICD Code Anxiety Arthritis Back,Hip,and Knee pain Cataracts Depression Diabetic Glaucoma Lung disease Macular degeneration Numbness Reflux ( GERD) thyroid Measles Chicken pox Joint implants/screws Transfusions Surgical History Surgery Date(Month/Year) back surgery [phone] facial cosmetic surgery 1977 spine surgery 11/16/2023 Hospitalization History Reason Date(Month/Year) [facility] spine surgery 11/16/2023
--- OUTSIDE RECORDS SUMMARY | 2025-02-05 10:31 | XMS_ITS | Clinical Summary ---
Author Organization [facility] ity Address [address] [place] [address] Care Team Providers Care Client Solutions Manager Name Role Phone Chiquis Grajeda MD Primary Care Provider [phone] Social History Tobacco Use Types Packs/Day Years [...] age to complete this topic Care Teams Client Solutions Manager Relationship Specialty Start Date End Date Chiquis Grajeda MD [address] [place] [address] Dr [address] [facility] [place] [address] PCP - General 12/01/22
--- OUTSIDE RECORDS SUMMARY | 2025-02-05 10:31 | XMS_ITS | Clinical Summary ---
Author Organization [facility] Address [address] [place] [address] Care Team Providers Care Clay Dry Press Operator Name Role Phone Chiquis Grajeda MD Primary Care Provider [phone] Allergies Active Allergy Reactions Criticality Noted Date [...] 07/25/2023 8:26 AM EST [facility] Comment:Fasting: <100 mg/dL, Non-Fasting: <200 mg/dL (ADA 2005) Blood Urea Nitrogen (BUN) 12 8 - 21 mg/dL 07/25/2023 8:26 AM EST [facility] Creatinine 0.6 0.4 - 1.1 mg/dL 07/25/2023 8:26 AM [facility] eGFR >90 >59 07/25/2023 8:26 AM [facility] Comment:CKD-EPI (2020) in mL /min/1.73 sq meters. Sodium 142 136 - 145 mmol/L 07/25/2023 8:26 AM [facility] Potassium 4.0 3.4 - 5.3 mmol/L 07/25/2023 8:26 AM [facility] Chloride 103 98 - 107 mmol/L 07/25/2023 8:26 AM [facility] CO2 25 22 - 33 mmol/L 07/25/2023 8:26 AM [facility] Calcium 9.3 8.7 - 10.5 mg/dL 07/25/2023 8:26 AM [facility] Alkaline Phosphatase 62 32 - 122 U/L 07/25/2023 8:26 AM [facility] Aspartate Aminotrans (AST) 57(H) 10 - 50 U/L 07/25/2023 8:26 AM [facility] Alanine Aminotrans (ALT) 36 10 - 50 U/L 07/25/2023 8:26 AM [facility] Bilirubin, Total 0.6 0.2 - 1.0 mg/dL 07/25/2023 8:26 AM [facility] Protein, Total 5.8(L) 6.3 - 8.3 g/dL 07/25/2023 8:26 AM [facility] Albumin 3.4 3.4 - 4.8 g/dL 07/25/2023 8:26 AM [facility] BUN/Creatinine Ratio 20 10.0 - 25.0 Ratio 07/25/2023 8:26 AM [facility] Globulin 2.4 1.5 - 3.9 g/dL 07/25/2023 8:26 AM [facility] Albumin/Globulin Ratio 1.4 1.0 - 3.0 Ratio 07/25/2023 8:26 AM [facility] Anion Gap 14 7 - 17 07/25/2023 8:26 AM [facility] Blood specimen (specimen) (Plasma/Serum) 07/25/2023 6:49 AM EST 07/25/2023 6:56 AM EST Mary Mason DO LAB BLOOD ORDERABLES Final Resul t Performing Organization Address [facility] Co de Phone Number [address] [address], [facility] [address] [place] [address] * (ABNORMAL) HEMOGLOBIN A1C WITH ESTIMATED AVERAGE GLUCOSE (07/21/2023 1:11 AM EST) Hemoglobin A1C 7.0(H) <5.7 % 07/21/2023 1:42 PM EST [facility] Comment: A1c% Interpretation 5.7 - 6.0 Increase risk of diabetes 6.1 - 6.4 Higher risk of diabetes > or = 6.5 Consistent with diabetes Diabetes Care, 33(Supp 1):S1-S61, 2010 Estimated Average Glucose 154 mg/dL 07/21/2023 1:42 PM EST [facility] Blood specimen / Unknown 07/21/2023 1:11 AM EST 07/21/2023 1:59 AM EST Bernie Tony DO LAB BLOOD ORDERABLES Final Result [address] [address], [place] [address] from Last 3 Months or Most Recently Relevant to Health Maintenance Insurance MEDICARE PART A & B MEDICAID OUT OF STATE [facility] MEDICARE PART A & B [facility] MEDICARE OUT OF NETWORK Advance Directives * DNR (Latest Code Status on File) Date Activated Date Inactivated Comments 07/21/2023 5:56 PM DNR/ DNI Question Answer Comments Decision thoroughly discussed with: Patient * Full Code Date Activated Date Inactivated Comments 07/21/2023 6:54 AM 07/21/2023 5:56 PM Care Teams Clay Dry Press Operator Relationship Specialty Start Date End Date Chiquis Grajeda MD [address] [place] [address] [place] [address] PCP - General Internal Medicine 07/21/23
[2025-02-05 12:59] LABS: Appearance Urine Clear; Glucose Urine UA >=1000 mg/dL (Negative); PH 5.5 (5.0-9.0); Specific Gravity - Urine >= 1.030 (1.005-1.025); UMIC TRIGGER UACC YES
[2025-02-05 13:44] LABS: Alanine Aminotransferase 26 U/L (0-31); Albumin Level 4.6 g/dL (3.5-5.0); Alkaline Phosphatase 62 U/L (39-117); Anion Gap 15 (12-20); Aspartate Amino Transferase 35 U/L (5-31); Blood Urea Nitrogen 12 mg/dL (9-16); Calcium 9.2 mg/dL (8.4-10.2); Carbon Dioxide 29 mmol/L (22-29); Chloride 101 mmol/L (96-108); Cholesterol 168 mg/dL (<200); Estimated Glomerular Filt Rate > 60; HDL Cholesterol 54 mg/dL (>40); Potassium 4.5 mmol/L (3.3-5.1); Sodium 140 mmol/L (135-145); Total Protein 6.7 g/dL (6.5-8.0); Triglycerides 223 mg/dL (<150)
[2025-02-05 13:48] LABS: Hemoglobin A1C 241.2381 umol/L; Total Hemoglobin (HGBA1C) 3890.3879 umol/L
[2025-02-05 13:58] LABS: Free T4 (Free Thyroxine) 1.13 ng/dL (0.71-1.85)
[2025-02-05 14:04] LABS: Thyroid Stimulating Hormone 1.06 uIU/mL (0.32-4.0)
== END 2025-02-05 09:47 | disposition home or self-care (01) ==
LOC: HO.HMGCLDS 09:46
PROVIDERS: PCP Internal Medicine; Referring Provider Internal Medicine; Visit Provider Internal Medicine
DX: E11.65 Type 2 diabetes mellitus with hyperglycemia (principal); Z79.4 Long term (current) use of insulin; E04.2 Nontoxic multinodular goiter
CPT/HCPCS: 36415; 80053; 80061; 81001; 81003; 82043; 82570; 83036; 84439; 84443

== ENCOUNTER 2025-02-20 09:54 | Outpatient (AMB) | payer OTHER, SELFPAY ==
[2025-02-20 09:58] VITALS: BP 124/70; PULSE 75; O2SAT 92; BMI 30.4
--- NOTE | 2025-02-20 09:58 | A.OFFVIS_ITS ---
Vital Signs 02/20/25 09:58 Height 5 ft 5 in Weight 182 lb 15.739 oz BMI 30.4 BP 124/70 Blood Pressure Location Rt brachial Position Sitting Pulse 75 Pulse Source Pulse Oximeter Pulse Oximetry (%) 92 Oxygen Delivery Method Room Air Intake Visit Reasons: f/u T2DM Intake Note: Patient presents today for a follow-up on Type 2 Diabetes Mellitus: Last Diabetic Eye exam: 12/24/2024, [facility], sees Special Education Director more often. 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 Third Class Required: No Accompanied by: HYDROGEN OPERATOR Allergies aspirin (ASPIRIN) Allergy (Severe, Verified 02/20/25 09:59) GI bleed, stomach upset ibuprofen (IBUPROFEN) Allergy (Severe, Verified 02/20/25 09:59) GI Bleed, stomach upset valsartan (From Diovan) Allergy (Severe, Verified 02/20/25 09:59) hives ziprasidone (From Geodon) Allergy (Severe, Verified 02/20/25 09:59) RASH-PALPITATIONS azithromycin Allergy (Intermediate, Verified 02/20/25 09:59) facial swelling metformin (METFORMIN) Allergy (Intermediate, Verified 02/20/25 09:59) NAUSEA & VOMITING, GI upset cephalexin (From KEFLEX) Allergy (Unknown, Verified 02/20/25 09:59) can't remember lisinopril Allergy (Unknown, Verified 02/20/25 09:59) cough NSAIDS (Non-Steroidal Anti-Inflamma (NSAIDS (NON-STEROIDAL ANTI-INFLAMMA) Adverse Reaction (Severe, Verified 02/20/25 09:59) HX OF GI BLEED tramadol (Ultram) Adverse Reaction (Severe, Verified 02/20/25 09:59) GI upset sulfamethoxazole (From Bactrim) Adverse Reaction (Intermediate, Verified 02/20/25 09:59) Hives tiotropium (From Spiriva with HandiHaler) Adverse Reaction (Intermediate, Verified 02/20/25 09:59) Unknown trimethoprim (From Bactrim) Adverse Reaction (Intermediate, Verified 02/20/25 09:59) Hives doxycycline Adverse Reaction (Mild, Verified 02/20/25 09:59) Stomach Upset HPI Comments Details: 74 year old female with extensive PMHx who is seen in F/U for T2DM 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 Initially diagnosed with T2DM in 2008. Insulin since 2018 Current regimen Actos 30 (increased from 15mg PO daily last visit), Jardiance 25 mg PO daily She stopped Victoza 1.8 mg daily, Tresiba 44 units qAM and Novolog sliding scale -stating she was sick of taking. She refuses further injections She has tried and failed Glimepiride and Onglyza. She is intolerant to Metformin due to GI side effects. A1C 7.8% 02/05, A1C 7.5% 07/2023: 7.3%. Toppr 2 CGM download. GMI 7.5% High 44%, TGT 56% No lows in past few weeks. Treats lows with tootsie rolls, orange juice, does check sugar after to make sure its increasing. Family history of T2DM in her Mother and Brother. UTD shannonwindy Has neuropathy. No nephropathy, not on JAZMIN/ARB. UAC 10 10/26/2022. Lisinopril was stopped due to cough, and no JAZMIN/ARB was resumed due to hypotension. She is following with Cardiology. Has HLD. On Atorvastatin 40 mg PO qHS. Has no history of CAD. Has had Diabetes Education. 2) NTMNG-This will be followed with Dr Taran JOHNSON CONSTITUTIONAL: Denies weight loss, fever and chills. HEENT: Denies changes in vision and hearing. RESPIRATORY: Denies SOB and cough. CV: Denies palpitations and CP GI: Denies abdominal pain, nausea, vomiting and diarrhea. : Denies dysuria and urinary frequency. MSK: Denies new myalgia and joint pain. SKIN: Denies rash and pruritus. NEUROLOGICAL: Denies headache PSYCHIATRIC: Denies recent changes in mood. PHYSICAL EXAM: GENERAL: Alert and oriented x 3. NAD EYES: EOMI. Anicteric. HENT: Moist mucous membranes. No scleral icterus. No cervical lymphadenopathy. LUNGS: Clear to auscultation bilaterally. CARDIOVASCULAR: Regular rate and rhythm. No murmur. No JVD. ABDOMEN: Soft, non-tender +bs EXTREMITIES: No edema. Non-tender. +DP pulses. Normal monofilament SKIN: No rashes or lesions. Warm. NEUROLOGIC: No focal neurological deficits. CN II-XII grossly intact PSYCHIATRIC: Cooperative. Appropriate mood and affect [facility] Medical History Respiratory failure with hypoxia Tobacco dependence Hypothyroid Macular degeneration Acute exacerbation of chronic obstructive pulmonary disease (COPD) Dermatitis of vulva Uses wheelchair Wears dentures Supplemental oxygen dependent Slow to wake up after anesthesia Lumbar spinal stenosis Smoker Nicotine dependence, cigarettes, uncomplicated Acute respiratory failure with hypoxia Vulvar ulcer Recurrent major depression-severe Lower extremity pain Sialoadenitis Jaw pain العلي (dyspnea on exertion) Chest pain Osteopenia (~2015) Sinus tachycardia Pulmonary nodule Menopausal state Artificial menopause state Constipation Nocturnal hypoxemia COPD (chronic obstructive pulmonary disease) Spinal stenosis Depression Vitamin D deficiency Multinodular thyroid HLD (hyperlipidemia) T2DM (type 2 diabetes mellitus) (~2008) Surgical History Hx of eye surgery History of cataract surgery S/P thyroid biopsy History of lithotripsy History of cardiac catheterization Hx of colonoscopy Hx of arthroscopy of left knee Hx of spinal fusion Hx of cholecystectomy Family History Father No problems noted. Mother Cancer Diabetes Social History Household Members: None Housing: Apartment Are you a primary intensive care specialist to a significant other at home: No Do you presently have visiting nurse or other home services: Yes Alcohol intake: never Comment: aware of trip hazard Patient Tobacco Use Status: Current everyday Tobacco user Smoking Start Date: 04/01/1964 Tobacco use type: Cigar Cigarette Packs Per Day: 0.5 Cigarettes Per Day: 8 Years Smoked: 60 e-Cigarette/Vaping Use: Currently Using Second Hand Smoke Exposure: No Advance Directives Date on File: 06/08/23 service: No Current occupational status: retired Sexual orientation: Straight/Heterosexual Cognitive needs: No Hearing needs: No Vision needs: Yes Female Reproductive History Menstrual Age of Menarche: 12 Physical Exam Vital Signs: Last Vital Signs Pulse 75 02/20/25 09:58 BP 124/70 02/20/25 09:58 Pulse Ox 92 02/20/25 09:58 Oxygen Delivery Method Room Air 02/20/25 09:58 BMI result Body Mass Index 30.4 Assessment & Plan Assessment & Plan (1) Type 2 diabetes mellitus with hyperglycemia: Comment: Dr. Shipley Code(s): E11.65 - Type 2 diabetes mellitus with hyperglycemia Category: Medical Qualifiers: Diabetes mellitus chcf insulin use: with salvage determiner use Qualified Code(s): E11.65 - Type 2 diabetes mellitus with hyperglycemia; Z79.4 - long-term (current) use of insulin Plan 74 year old for DM follow up She notes she stopped all injections about 3 months ago A1C is 7.8% is suboptimal. Will add glipizide 5mg daily and have her return in 3 months. If she needs to be soon sooner advised her tocall the office. Medications: New glipizide ER 5 mg PO DAILY 90 tabs 3RF Discontinued liraglutide (Victoza 3-Jeanmarie) Discontinued Reason: Doctor's Order 1.8 mg (0.3 mL) subcut DAILY 90 days 27 mL 11RF insulin aspart U-100 (Novolog FlexPen U-100 Insulin aspart) Discontinued Reason: Duplicate Novolog sliding scale 3 times daily with breakfast and lunch (200-250: 6 units, 251-300: 8 units, 301 - 350: 10 units, >350: 12 units) Novolog sliding scale with dinner (150-199: 6 units, 200-250: 8 units, 251-300 10 units, 301-350: 12 units, >350 take 14 units) Max daily dosing/24 hours 38 units 30 mL 6RF Hyperglycemia Coding Level of Care Code Est Pt Level 4 (95497) Diagnoses Type 2 diabetes mellitus with hyperglycemia, with long-term current use of insulin E11.65; Z79.4 Diabetes mellitus salvage determiner insulin use: with salvage determiner use
[2025-02-20 10:11] LABS: Glucose, Whole Blood 174 mg/dL (60-115)
--- OUTSIDE RECORDS SUMMARY | 2025-02-20 10:36 | XMS_ITS | Clinical Summary ---
Author Organization [facility] Address [address] [place] [address] Care Team Providers Care Director River [employer] Name Role Phone Chiquis Grajeda MD Primary Care Provider [phone] Allergies Active Allergy Reactions Criticality Noted Date [...] - 99 mg/dL 07/25/2023 8:26 AM EST [facility] Comment:Fasting: <100 mg/dL, Non-Fasting: <200 mg/dL (ADA 2005) Blood Urea Nitrogen (BUN) 12 8 - 21 mg/dL 07/25/2023 8:26 AM EST [facility] Creatinine 0.6 0.4 - 1.1 mg/dL 07/25/2023 8:26 AM [facility] eGFR >90 >59 07/25/2023 8:26 AM [facility] Comment:CKD-EPI (2020) in mL /min/1.73 sq meters. Sodium 142 136 - 145 mmol/L 07/25/2023 8:26 AM [facility] Potassium 4.0 3.4 - 5.3 mmol/L 07/25/2023 8:26 AM [facility] Chloride 103 98 - 107 mmol/L 07/25/2023 8:26 AM [facility] CO2 25 22 - 33 mmol/L 07/25/2023 8:26 AM [facility] Calcium 9.3 8.7 - 10.5 mg/dL 07/25/2023 8:26 AM [facility] Alkaline Phosphatase 62 32 - 122 U/L 07/25/2023 8:26 AM [facility] Aspartate Aminotrans (AST) 57(H) 10 - 50 U/L 07/25/2023 8:26 AM [facility] Alanine Aminotrans (ALT) 36 10 - 50 U/L 07/25/2023 8:26 AM [facility] Bilirubin, Total 0.6 0.2 - 1.0 mg/dL 07/25/2023 8:26 AM [facility] Protein, Total 5.8(L) 6.3 - 8.3 g/dL 07/25/2023 8:26 AM [facility] Albumin 3.4 3.4 - 4.8 g/dL 07/25/2023 8:26 AM [facility] BUN/Creatinine Ratio 20 10.0 - 25.0 Ratio 07/25/2023 8:26 AM [facility] Globulin 2.4 1.5 - 3.9 g/dL 07/25/2023 8:26 AM [facility] Albumin/Globulin Ratio 1.4 1.0 - 3.0 Ratio 07/25/2023 8:26 AM [facility] Anion Gap 14 7 - 17 07/25/2023 8:26 AM [facility] Blood specimen (specimen) (Plasma/Serum) 07/25/2023 6:49 AM EST 07/25/2023 6:56 AM EST Mary Mason DO LAB BLOOD ORDERABLES Final Resul t Performing Organization Address [facility] Co de Phone Number [address] [address], [facility] [address] [place] [address] * (ABNORMAL) HEMOGLOBIN A1C WITH ESTIMATED AVERAGE GLUCOSE (07/21/2023 1:11 AM EST) Hemoglobin A1C 7.0(H) <5.7 % 07/21/2023 1:42 PM EST [facility] Comment: A1c% Interpretation 5.7 - 6.0 Increase risk of diabetes 6.1 - 6.4 Higher risk of diabetes > or = 6.5 Consistent with diabetes Diabetes Care, 33(Supp 1):S1-S61, 2010 Estimated Average Glucose 154 mg/dL 07/21/2023 1:42 PM EST [facility] Blood specimen / Unknown 07/21/2023 1:11 AM EST 07/21/2023 1:59 AM EST Bernie Tony DO LAB BLOOD ORDERABLES Final Result [address] [address], [place] [address] from Last 3 Months or Most Recently Relevant to Health Maintenance Insurance MEDICARE PART A & B MEDICAID OUT OF STATE [facility] [place] PART A & B [facility] [place] OUT OF NETWORK Advance Directives * DNR (Latest Code Status on File) Date Activated Date Inactivated Comments 07/21/2023 5:56 PM DNR/ DNI Question Answer Comments Decision thoroughly discussed with: Patient * Full Code Date Activated Date Inactivated Comments 07/21/2023 6:54 AM 07/21/2023 5:56 PM Care Teams Director [employer] Relationship Specialty Start Date End Date Chiquis Grajeda MD [address] [place] [address] [place] [address] PCP - General Internal Medicine 07/21/23
--- OUTSIDE RECORDS SUMMARY | 2025-02-20 10:36 | XMS_ITS | Clinical Summary ---
Author Organization [facility] Address [address] [place] [address] Care Team Providers Care Baby Registry Sales Consultant Name Role Phone Chiquis Grajeda MD Primary Care Provider [phone] Social History Tobacco Use Types Packs/Day Years [...] age to complete this topic Care Teams Baby Registry Sales Consultant Relationship Specialty Start Date End Date Chiquis Grajeda MD [address] [place] [address] Dr [address] [facility] [place] [address] PCP - General 12/01/22
--- OUTSIDE RECORDS SUMMARY | 2025-02-20 10:36 | XMS_ITS | Patient Health Record ---
[facility] Address [address] [place] [address] Care Team Providers Care Housing Inspector Name Role Phone Chiquis Grajeda Primary Care Provider Ijeoma Love Unavailable [phone] Allergies Allergen (clinical drug ingredient) Drug/Non Drug [...] Problem Acquired hammer toe of right foot (0026247501906109 ) Other hammer toe(s) (acquired), right foot (M20.41) Active confirmed Problem Acquired hammer toe of left foot (0212624874581003 ) Other hammer toe(s) (acquired), left foot (M20.42) Active confirmed Problem Polyneuropathy due to type 2 diabetes mellitus (163708371) Type 2 diabetes mellitus with diabetic polyneuropathy (E11.42) Active confirmed Vital Signs Blood pressure diastolic 55 mm Hg 11/23/2024 Height 5ft5.5in in 11/23/2024 Blood pressure systolic 100 mm Hg 11/23/2024 Weight 187 lbs 11/23/2024 BMI 30.64 kg/m2 11/23/2024 Encounters Encounter Location Date Provider Diagnosis [facility] [address] 03/27/2024 Ijeoma Joseph Type 2 diabetes mellitus with diabetic polyneuropathy E11.42 ; Other hammer toe(s) (acquired), right foot M20.41 and Other hammer toe(s) (acquired), left foot M20.[address] [facility] [address] 06/19/2024 Ijeoma Joseph Other hammer toe(s) (acquired), right foot M20.41 ; Xerosis of skin L85.3 ; Type 2 diabetes mellitus with diabetic polyneuropathy E11.42 and Other hammer toe(s) (acquired), left foot M20.[address] [address] 08/31/2024 Ijeoma Joseph Other hammer toe(s) (acquired), right foot M20.41 ; Xerosis of skin L85.3 ; Type 2 diabetes mellitus with diabetic polyneuropathy E11.42 and Other hammer toe(s) (acquired), left foot M20.[address] [address] 11/23/2024 Ijeoma Joseph Type 2 diabetes mellitus with diabetic polyneuropathy E11.42 ; Other hammer toe(s) (acquired), right foot M20.41 and Other hammer toe(s) (acquired), left foot M20.[address] [address] 08/31/2024 Ijeoma Joseph Assessments Encounter Date Diagnosis [...] Details Provider Name:Ijeoma pitts, 02/26/2025 11:15:00 AM, [address] [place] [address], [phone], Insurance Providers Payer Name Payer Address Payer Phone Subscriber Number Group Number Insured Name Patient Relationship to Insured Coverage Start Date Coverage End Date [facility] [address] [facility] JAQUAN Lange [id number] Sofiya Rivas Self - patient is the insured Medical (General) History Medical History History ICD Code Anxiety Arthritis Back,Hip,and Knee pain Cataracts Depression Diabetic Glaucoma Lung disease Macular degeneration Numbness Reflux ( GERD) thyroid Measles Chicken pox Joint implants/screws Transfusions Surgical History Surgery Date(Month/Year) back surgery [id number] facial cosmetic surgery 1977 spine surgery 11/16/2023 Hospitalization History Reason Date(Month/Year) [facility] spine surgery 11/16/2023
== END 2025-02-20 10:31 | disposition home or self-care (01) ==
LOC: HO.ENCR 09:55
PROVIDERS: PCP Internal Medicine; Visit Provider Internal Medicine
DX: E11.65 Type 2 diabetes mellitus with hyperglycemia (principal); Z79.4 Long term (current) use of insulin

== ENCOUNTER → 2025-02-20 09:54 | Outpatient (BNVA) | payer OTHER, SELFPAY | PROVIDERS: PCP Internal Medicine; Visit Provider Internal Medicine | DX: E83.52 Hypercalcemia (principal); E11.42 Type 2 diabetes mellitus with diabetic polyneuropathy; E78.5 Hyperlipidemia, unspecified; Z79.84 Long term (current) use of oral hypoglycemic drugs | CPT/HCPCS: 82947; 99212 ==

== ENCOUNTER → 2025-03-01 09:34 | Outpatient (REF) | payer OTHER, SELFPAY ==
--- OUTSIDE RECORDS SUMMARY | 2025-02-26 07:15 | XMS_ITS ---
Author Organization [facility] Address [address] [place] [address] Care Team Providers Care Manager Parking Name Role Phone Chiquis Grajeda Primary Care Provider Ijeoma Love Unavailable [phone] Allergies Allergen (clinical drug ingredient) Drug/Non Drug Allergy documented on EMR Reaction Allergy Type Onset Date Status ibuprofen Advil Unknown Drug Allergy Active aspirin Aspirin Unknown Drug Allergy Active sulfamethoxazole / trimethoprim Bactrim Unknown Drug Allergy Active ibuprofen Ibuprofen Unknown Drug Allergy Active Keflex Unknown Drug Allergy Active REASON FOR VISIT At Risk Footcare Medications Medication SIG (Take, Route, Frequency, Duration) Notes Start Date End Date Status Mirtazapine 30 MG Oral; Duration: 30 Days Active Levothyroxine Sodium 25 MCG Oral; Duration: 30 Days Acti ve Esomeprazole Magnesium 40 MG Oral; Duration: 28 Days Acti ve Insulin Not-Taking SEROquel Not-Taking glipiZIDE ER 5 MG Oral; Duration: 30 Days Active clonazePAM 0.5 MG Oral; Duration: 90 Days Active Extra Depth Orthopedic Shoes (1 Pair) with Customized Heat Molded Multidensity Innersoles (3 Pair) as directed Dx: NIDDM/Polyneuropathy (E11.42), Hammertoe Foot Deformity (M20.41,M20.42), Preulcerative Skin Lesion(s) (L85.1 03/27/2024 Active Extra Depth Orthopedic Shoes (1 Pair) with Customized Heat Molded Multidensity Innersoles (3 Pair) as directed Dx: NIDDM/Polyneuropathy (E11.42), Hammertoe Foot Deformity (M20.41,M20.42), Preulcerative Skin Lesion(s) (L85.1 Active Wixela Inhub 250-50 MCG/ACT Inhalation; Duration: 30 Days Active Actos Active Jardiance Active Vitamin D3 Active Vitamin B 12 Active Colace Active NexIUM Active Abilify Active Gabapentin Active Fenofibrate Active Lipitor Active Remeron 30 MG 1 tablet at bedtime Orally Once a day Active cloNIDine Active Social History Tobacco Use: Social History [...] ast year? No Points 0 Interpretation Negative Vital Signs Height 5ft 5.5in in 02/26/2025 Weight 183 lbs 02/26/2025 BMI 29.99 kg/m2 02/26/2025 Blood pressure systolic 120 mm Hg 02/27/20 25 Blood pressure diastolic 68 mm Hg 025 Encounters Encounter Location Date Provider Diagnosis [facility] [address] [address] 02/26/2025 Ijeoma Joseph Type 2 diabetes mellitus with diabetic polyneuropathy E11.42 Assessments Encounter Date Diagnosis (ICD Code) Assessment Notes Treatment Notes Treatment Clinical Notes Section Notes 02/26/2025 Type 2 diabetes mellitus with diabetic polyneuropathy (ICD-10 - E11.42) Plan Of Treatment Next Appt Details Follow Up: 3 Months, Reason: Provider Name:Ijeoma pitts, 05/14/2025 09:30:00 AM, [address] [place] [address], [id number], Procedure Notes * Category Sub-Category Detail Notes Nail Reduction Nail Reduction (-27) Trimming o f all dystrophic nails - Due to the at risk nature of the patients medical condition as documented in the exam findings, performance of this nail treatment is medically necessary as its management by an unskilled/untrained nonprofessional would put this patients foot and overall health at risk. Therefore, the dystrophic nails, in locations as stated and described in the exam ( TA, T1, T2, T3, T4, T5, T6, T7, T8, T9, ), were debrided by the phisician of record to reduce/remove overall nail length and girth, by manual and electrical means with use of a nail nipper and/or dremel, to more viable healthy nail plate or bed tissue - G0127 Progress Notes * Sofiya RIVAS EDOB: [birth year] (74 yo F)Acc No.[id number]:02/26/2025 Progress Note Patient: Sofiya BACA Provider: Ines Joseph DPM :1950 A ge:74 Y S ex:Female Date:02/26/2025 Address:[address] [place] [address] Pcp:Chiquis Grajeda Subjective: * Chief Complaints: * A t Risk Footcare * HPI: A t Risk footcare: Pt States Last PCP Visit: D ate 0 11/21/2024 * ROS: G eneral/Constitutional: Nausea d enies. V omiting d enies. H ariane Thirst d enies. L oss appetite d enies. C hills d enies. F atigue d enies.?Fever d enies. N ight Sweats d enies. U nexplained weight loss d enies. U nexplained weight gain d enies. H EENTM: Dentures a dmits. D izziness d enies. G lasses/contacts a dmits. R etinopathy d enies. B lurred/double vision d enies. T MJ?denies. D ischarge/drainage d enies. I mplants d enies. S ore throat d enies. D ental implants d enies. H malathi of hearing d enies. D ifficulty chewing/swallowing/speaking d enies. N ose bleeds d enies. S ore mouth d enies. ? R espiratory: On Oxygen d enies. P neumonia/pleurisy d enies.?Bronchitis d enies. E mphysema a dmits. C oughing a dmits. C ough blood?denies. S hortness of breath a dmits. W heezing a dmits. C ardiovascular: Pacemaker d enies. M POLICE JUDGE d enies. W PW d enies. C HF d enies. H eart attack d enies. S eptal defect d enies. R apid beat d enies. C hest pain d enies. A trial Fib. d enies. M urmur/Palpitations d enies. G astrointestinal: Hemorrhoids d enies. S tomach/Abdominal pain d enies. D ark blood stool d enies. I rritable bowel d enies. C onstipation d enies. D iarrhea d enies. H ematology: Swelling d enies. C lots d enies. V aricose Veins d enies. B ruising d enies. B leeding problem d enies. G enitourinary: Blood urine d enies. F requent/Painfu/urination/bladder control d enies. K idney stones d enies. I nfection (UTI) d enies. N ephropathy a dmits. s ex trans dis (STD) d enies. P rostate d enies. M usculoskeletal: Hammertoes d enies. B unions d enies. B ack Pain a dmits. M uscle Cramps/ Resting a dmits. M uscle cramps / walking d enies.?Generalized aches and pains a dmits. W eakness d enies. I nteg.: Frausto d enies. S cars d enies. C orns/calluses?denies. I ngrown nails d enies. P ainful nails d enies. O pen Sores d enies. R ashes d enies. N eurologic: Difficulty sleeping a dmits. B rain disorder d enies. N umbness d enies. B alance trouble d enies. C onfusion d enies. F ainting/blackouts d enies. T ingling d enies. T remors d enies. * Medical History: * Surgical History: b ack surgery 1997-1998facial cosmetic surgery 1977spine surgery 11/16/2023eye surgery 12/24/24 * Hospitalization/Major Diagno stic Procedure: [facility]16/2023 * Family History: M other: , diagnosed with Family history of arthritis, Unspecified essential hypertension, Other malignant neoplasm of unspecified site. F ather: . S iblings: cancer, heart attack, diagnosed with Unspecified heart disease. * Social History: T obacco Use: T obacco use other than smoking A re you an other tobacco user? Y es Tobacco Control (Standard) T obacco use: C urrent smoker H ow often do you smoke cigarettes? E very day H ow many cigarettes a day do you smoke? 1 1-20 H ow soon after you wake up do you smoke your first cigarette? W ithin 5 minutes A re you interested in quitting? N ot ready to quit M iscellaneous: C affeine: yes, 1-2 cups per day. Children: no. Exercise: yes, walking. Marital status: . 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 D rug/Alcohol: A JOELLE-C (Standard) D id you have a drink containing alcohol in the past year? N o P oints 0 I nterpretation N egative * Medications: T akingRemeron 30 MG Tablet 1 tablet at bedtime Orally Once a day cloNIDine Fenofibrate Lipitor NexIUM Abilify Gabapentin Actos Jardiance Vitamin D3 Vitamin B 12 Colace Extra Depth Orthopedic Shoes (1 Pair) with Customized Heat Molded Multidensity Innersoles (3 Pair) as directed Dx: NIDDM/Polyneuropathy (E11.42), Hammertoe Foot Deformity (M20.41,M20.42), Preulcerative Skin Lesion(s) (L85.1 Extra Depth Orthopedic Shoes (1 Pair) with Customized Heat Molded Multidensity Innersoles (3 Pair) as directed Dx: NIDDM/Polyneuropathy (E11.42), Hammertoe Foot Deformity (M20.41,M20.42), Preulcerative Skin Lesion(s) (L85.1 Wixela Inhub 250-50 MCG/ACT Aerosol Powder Breath Activated Inhalation glipiZIDE ER 5 MG Tablet Extended Release 24 Hour Oral clonazePAM 0.5 MG Tablet Oral Mirtazapine 30 MG Tablet Oral Levothyroxine Sodium 25 MCG Tablet Oral Esomeprazole Magnesium 40 MG Capsule Delayed Release Oral Taking Remeron 30 MG Tablet 1 tablet at bedtime Orally Once a day Taking cloNIDine Taking Fenofibrate Taking Lipitor Taking NexIUM Taking Abilify Taking Gabapentin Taking Actos Taking Jardiance Taking Vitamin D3 Taking Vitamin B 12 Taking Colace Taking Extra Depth Orthopedic Shoes (1 Pair) with Customized Heat Molded Multidensity Innersoles (3 Pair) as directed Dx: NIDDM/Polyneuropathy (E11.42), Hammertoe Foot Deformity (M20.41,M20.42), Preulcerative Skin Lesion(s) (L85.1 Taking Extra Depth Orthopedic Shoes (1 Pair) with Customized Heat Molded Multidensity Innersoles (3 Pair) as directed Dx: NIDDM/Polyneuropathy (E11.42), Hammertoe Foot Deformity (M20.41,M20.42), Preulcerative Skin Lesion(s) (L85.1 Taking Wixela Inhub 250-50 MCG/ACT Aerosol Powder Breath Activated Inhalation Taking glipiZIDE ER 5 MG Tablet Extended Release 24 Hour Oral Taking clonazePAM 0.5 MG Tablet Oral Taking Mirtazapine 30 MG Tablet Oral Taking Levothyroxine Sodium 25 MCG Tablet Oral Taking Esomeprazole Magnesium 40 MG Capsule Delayed Release Oral Not-Taking/PRNInsulin SEROquel Medication List reviewed and reconciled with the patientNot-Taking/PRN Insulin Not-Taking/PRN SEROquel Medication List reviewed and reconciled with the patient * Allergies: K eflexBactrimAspirinAdvilIbuprofenyes[Allergies Verified] Objective: * Vitals: H t: 5ft 5.5in, Wt:183, BMI:29.99, Shoe size: 8, BP:120/68mm Hg, BS: 128, Ht-cm: 166.37 cm, Wt-k.01 kg. * P ast Orders: L ab:HEMOGLOBIN A1C (GLYCOHEMOGLOBIN) (Order Date - 02/18/2025) (Collection Date & Time - 02/26/2025 11:11 AM) Value Reference Range HEMOGLOBIN A1C % (HH) 7.8 * Examination: O phthalmology Referral: DIABETES EYE EXAM P rocedure Performed: Y es D ate of Exam Performed 0 01/22/2025 D iabetic Retinopathy Screening: Y es F indings of Diabetic Eye Exam: n o retinopathy N eurological: SENSORY: ( Neuro) Neurological exam demonstrates a loss of protective sensation by an absence of tested sensitivity to 5.07 [place] monofilament at 2 or more sites out of 5 total locations, each foot. N ails: NAILS are: E longated, overgrown, dystrophic , TA, T1, T2, T3, T4, T5, T6, T7, T8, T9. Assessment: * Assessment: 1. T ype 2 diabetes mellitus with diabetic polyneuropathy - E11.42 (Primary) Plan: * Treatment: * Procedures: N ail Reduction: Nail Reduction ( -27) Trimming of all dystrophic nails - Due to the at risk nature of the patients medical condition as documented in the exam findings, performance of this nail treatment is medically necessary as its management by an unskilled/untrained nonprofessional would put this patients foot and overall health at risk. Therefore, the dystrophic nails, in locations as stated and described in the exam ( TA, T1, T2, T3, T4, T5, T6, T7, T8, T9, ), were debrided by the phisician of record to reduce/remove overall nail length and girth, by manual and electrical means with use of a nail nipper and/or dremel, to more viable healthy nail plate or bed tissue - G0127. * Procedure Codes: G 0127 TRIMMING DYSTROPHIC NAILS ANY # * Preventive Medicine: Counseling: T obacco use: Patient counseled on the dangers of smoking and urged to quit: 0 02/26/2025 * Follow Up: 3 Months * Images: * Sign off status: Completed true * Provider: Ines Joseph DPM Date: 02/26/2025 Generated for Omari lugo/Sandy/Mario on: 0 03/01/2025 10:17 AM EDT History and Physical Notes * HPI (History of Present Illness) Category Sub-Category Detail Notes Category Not es At Risk footcare Pt States Last PCP Visit: Date: 05/28/202 5 Examination Category Sub-Category Detail Notes Category Not es Neurological SENSORY: (Neuro) Neurolog ical exam demonstrates a loss of protective sensation by an absence of tested sensitivity to 5.07 [place] monofilament at 2 or more sites out of 5 total locations, each foot Ophthalmology Referral DIABETES EYE EXAM Procedu re Performed:: Yes Date of Exam Performed: 01/22/2025 Diabetic Retinopathy Screening:: Yes Findings of Diabetic Eye Exam:: no retin opathy Nails NAILS are: Elongated, overg rown, dystrophic , TA, T1, T2, T3, T4, T5, T6, T7, T8, T9
--- NOTE | 2025-03-01 09:37 | CA_ITS ---
Transthoracic Echocardiogram Patient (Last, First, Middle): Sofiya Rivas E Gender: F Date of : 1950 Age: 74 Procedure Date: 03/01/2025 Procedure Type: Transthoracic Echocardiogram Location: OP Height: 165.1 cm Weight: 83.01 kg BSA: 1.90 m2 Heart Rate: bpm BP: 124 / 78 mmHg Heel Seat Pounder: TO Referring MD: Misael Mcallister MD Opto Mechanical Technician: Misael Mcallister MD Symptoms: R00.1 - Bradycardia, unspecified Study Quality: Technically Difficult/No IV access Conclusions: - 1. Normal LV ejection fraction 55-60% with impaired relaxation filling pattern 2. Cardiac valvular Dopplers within normal limits Findings Procedure Information The study quality is limited by lung artifact. Left Ventricle Normal left ventricular size, thickness, and systolic function. The visually estimated ejection fraction is between 55-60%. Regional wall motion abnormalities can not be excluded due to suboptimal endocardial definition. Spectral Doppler is indicative of an impaired relaxation filling pattern. E/E prime ratio is between 8 and 15 consistent with indeterminate filling pressures. Right Ventricle The right ventricle was not well visualized. Normal right ventricular cavity size. Atria The left atrium is normal in size. Interatrial shunt cannot be excluded. The right atrium was not well visualized. Aortic Valve The aortic valve was not well visualized. There is no aortic valve stenosis. There is no aortic valve regurgitation. Mitral Valve The mitral valve was not well visualized. There is trace mitral valve regurgitation. There is no mitral valve stenosis. Pulmonic Valve The pulmonic valve was not well visualized. Tricuspid Valve The tricuspid valve was not well visualized. Great Vessels The aorta was not well visualized. The pulmonary artery was not well visualized. Venous The inferior vena cava is normal in size and collapses greater than 50% with inspiration. Pericardium/Pleural The pericardium was not well visualized. Prior Study Comparison No significant change compared to prior study dated: 09/23/2021. Measurements 2D Linear Measurements IVSd: 0.83 0.6-0.9/0.6-1.0 cm LVIDd: 4.27 3.9-5.3/4.2-5.9 cm LVIDd Index: 2.25 2.4-3.2/2.2-3.1 cm/m2 LVIDs: 2.70 2.0-3.6 cm LVPWd: 0.75 0.7-1.1 cm LA Diam: 3.10 2.7-3.8/3.0-4.0 cm LAIDs Index: 1.63 1.5-2.3 cm/m2 LV Mass: 127.99 67-162/88-224 g LV Mass Index: 67.36 43-95/49-115 g/m2 LVOT Diam: 2.10 3.0+(-)1.3 cm 2D Systolic Function EF 2C: 59.00 >55% Mitral Valve E'Lateral: 6.53 E'Medial: 5.98 Aortic Valve AoV Pk Felipe: 1.45 AoV Mn Felipe: 0.97 AoV VTI: 0.35 AoV Pk Grad: 8.00 Aov Mn Grad: 4.00 MARYAN Cont.VTI: 1.92 LVOT LVOT Pk Felipe: 0.77 LVOT Mn Felipe: 0.52 LVOT VTI: 0.19 LVOT Pk Grad: 2.00 LVOT Mn Grad: 1.00 LVOT Diam: 2.10 LVOT Area: 3.46 Diastolic Function E'Medial: 5.98 E' Laterial: 6.53 Right Ventricle TAPSE (mm): 19.40 TVS' Felipe: 8.98 Tricuspid Valve RA Press: 3.00 Great Vessels Aorta Sinus of Valsalva: 3.05 2.0-3.5 cm Updated in Other Vendor System with Status of Final Misael Mcallister MD electronically signed on 03/01/2025 1:05:15 PM with status of Final
--- OUTSIDE RECORDS SUMMARY | 2025-03-01 10:17 | XMS_ITS | Patient Health Record ---
Author Organization [facility] Address [address] [place] [address] Care Team Providers Care Ditching Machine Operating Engineer Name Role Phone Chiquis Grajeda Primary Care Provider Ijeoma Love [phone] Allergies Allergen (clinical drug ingredient) Drug/Non Drug [...] Lab: Notes/Report: HEMOGLOBIN A1C % (HH) 7.3 HEMOGLOBIN A1C (GLYCOHEMOGLO BIN) Reviewed date:02/26/2025 11:12:30 AM Interpretation: Performing Lab: Notes/Report: HEMOGLOBIN A1C % (HH) 7.8 Reason For Referral No Information Medications Medication SIG (Take, Route, Frequency, Duration) Notes Start Date End Date Status NexIUM Active glipiZIDE ER 5 MG Oral; Duration: 30 Days Active Abilify Active clonazePAM 0.5 MG Oral; Duration: 90 Days Active Gabapentin Active Mirtazapine 30 MG Oral; Duration: 30 Days Active Actos Active Levothyroxine Sodium 25 MCG Oral; Duration: 30 Days Acti ve Jardiance Active Esomeprazole Magnesium 40 MG Oral; Duration: 28 Days Acti ve Vitamin D3 Active Insulin Not-Taking Vitamin B 12 Active SEROquel Not-Taking Remeron 30 MG 1 tablet at bedtime Orally Once a day Active Colace Active Extra Depth Orthopedic Shoes (1 Pair) with Customized Heat Molded Multidensity Innersoles (3 Pair) as directed Dx: NIDDM/Polyneuropathy (E11.42), Hammertoe Foot Deformity (M20.41,M20.42), Preulcerative Skin Lesion(s) (L85.1 Active Lipitor Active Wixela Inhub 250-50 MCG/ACT Inhalation; Duration: 30 Days Active cloNIDine Active Extra Depth Orthopedic Shoes (1 Pair) with Customized Heat Molded Multidensity Innersoles (3 Pair) as directed Dx: NIDDM/Polyneuropathy (E11.42), Hammertoe Foot Deformity (M20.41,M20.42), Preulcerative Skin Lesion(s) (L85.1 03/27/2024 Active Fenofibrate Active Immunizations Vaccine Route Administration Date Status Comme nts Influenza Unknown 02/27/2024 Administered Social History Tobacco Use: Social History Observation [...] Problem Acquired hammer toe of right foot (2617765487820979 ) Other hammer toe(s) (acquired), right foot (M20.41) Active confirmed Problem Acquired hammer toe of left foot (3233152371400814 ) Other hammer toe(s) (acquired), left foot (M20.42) Active confirmed Problem Polyneuropathy due to type 2 diabetes mellitus (612268143) Type 2 diabetes mellitus with diabetic polyneuropathy (E11.42) Active confirmed Vital Signs Blood pressure diastolic 68 mm Hg 02/26/2025 Height 5ft 5.5in in 02/26/2025 Blood pressure systolic 120 mm Hg 02/26/2025 Weight 183 lbs 02/26/2025 BMI 29.99 kg/m2 02/26/2025 Encounters Encounter Location Date Provider Diagnosis [address] [address] 03/27/2024 Ijeoma Joseph Type 2 diabetes mellitus with diabetic polyneuropathy E11.42 ; Other hammer toe(s) (acquired), right foot M20.41 and Other hammer toe(s) (acquired), left foot M20.[address] [address] 06/19/2024 Ijeoma Joseph Other hammer toe(s) (acquired), right foot M20.41 ; Xerosis of skin L85.3 ; Type 2 diabetes mellitus with diabetic polyneuropathy E11.42 and Other hammer toe(s) (acquired), left foot M20.[address] [address] 08/31/2024 Ijeoma Joseph Other hammer toe(s) (acquired), right foot M20.41 ; Xerosis of skin L85.3 ; Type 2 diabetes mellitus with diabetic polyneuropathy E11.42 and Other hammer toe(s) (acquired), left foot M20.[address] [address] 11/23/2024 Ijeoma Joseph Type 2 diabetes mellitus with diabetic polyneuropathy E11.42 ; Other hammer toe(s) (acquired), right foot M20.41 and Other hammer toe(s) (acquired), left foot M20.[address] [address] 02/26/2025 Ijeoma Joseph Type 2 diabetes mellitus with diabetic polyneuropathy E11.[address] [address] 08/31/2024 Ijeoma Joseph Assessments Encounter Date Diagnosis [...] mellitus with diabetic polyneuropathy (ICD-10 - E11.42) 02/26/2025 Type 2 diabetes mellitus with diabetic [...] Treatment Next Appt Details Provider Name:Ijeoma pitts, 05/14/2025 09:30:00 AM, [address] [place], [address], Insurance Providers Payer Name Payer Address Payer Phone Subscriber Number Group Number Insured Name Patient Relationship to Insured Coverage Start Date Coverage End Date [facility] [employer] Claims [address] [place] [phone] [id number] Sofiya Rivas Self - patient is the insured Medical (General) History Medical History History ICD Code Anxiety Arthritis Back,Hip,and Knee pain Cataracts Depression Diabetic Glaucoma Lung disease Macular degeneration Numbness Reflux ( GERD) thyroid Measles Chicken pox Joint implants/screws Transfusions COPD Surgical History Surgery Date(Month/Year) back surgery [phone] facial cosmetic surgery 1977 spine surgery 11/16/2023 eye surgery 12/24/24 Hospitalization History Reason Date(Month/Year) [facility] spine surgery 11/16/2023
--- OUTSIDE RECORDS SUMMARY | 2025-03-01 10:17 | XMS_ITS | Clinical Summary ---
Author Organization [facility] Address [address] [place] [address] Care Team Providers Care Stull Hewer Name Role Phone Chiquis Grajeda MD Primary Care Provider [phone] Allergies Active Allergy Reactions Criticality Noted Date [...] Health Maintenance Due Date Last Done Comments Advance Care Planning 1950 Hepatitis C Virus Screening 1950 Foot Exam [...] - 99 mg/dL 07/25/2023 8:26 AM EST [facility] Comment:Fasting: <100 mg/dL, Non-Fasting: <200 mg/dL (ADA 2005) Blood Urea Nitrogen (BUN) 12 8 - 21 mg/dL 07/25/2023 8:26 AM EST [facility] Creatinine 0.6 0.4 - 1.1 mg/dL 07/25/2023 8:26 AM [facility] eGFR >90 >59 07/25/2023 8:26 AM [facility] Comment:CKD-EPI (2020) in mL /min/1.73 sq meters. Sodium 142 136 - 145 mmol/L 07/25/2023 8:26 AM [facility] Potassium 4.0 3.4 - 5.3 mmol/L 07/25/2023 8:26 AM [facility] Chloride 103 98 - 107 mmol/L 07/25/2023 8:26 AM [facility] CO2 25 22 - 33 mmol/L 07/25/2023 8:26 AM [facility] Calcium 9.3 8.7 - 10.5 mg/dL 07/25/2023 8:26 AM [facility] Alkaline Phosphatase 62 32 - 122 U/L 07/25/2023 8:26 AM [facility] Aspartate Aminotrans (AST) 57(H) 10 - 50 U/L 07/25/2023 8:26 AM [facility] Alanine Aminotrans (ALT) 36 10 - 50 U/L 07/25/2023 8:26 AM [facility] Bilirubin, Total 0.6 0.2 - 1.0 mg/dL 07/25/2023 8:26 AM [facility] Protein, Total 5.8(L) 6.3 - 8.3 g/dL 07/25/2023 8:26 AM [facility] Albumin 3.4 3.4 - 4.8 g/dL 07/25/2023 8:26 AM [facility] BUN/Creatinine Ratio 20 10.0 - 25.0 Ratio 07/25/2023 8:26 AM [facility] Globulin 2.4 1.5 - 3.9 g/dL 07/25/2023 8:26 AM [facility] Albumin/Globulin Ratio 1.4 1.0 - 3.0 Ratio 07/25/2023 8:26 AM [facility] Anion Gap 14 7 - 17 07/25/2023 8:26 AM [facility] Blood specimen (specimen) (Plasma/Serum) 07/25/2023 6:49 AM EST 07/25/2023 6:56 AM EST us Mary Mason DO LAB BLOOD ORDERABLES Final Resul t Performing Organization Address [facility] Co de Phone Number [address] [address], [address] [address] * (ABNORMAL) HEMOGLOBIN A1C WITH ESTIMATED AVERAGE GLUCOSE (07/21/2023 1:11 AM EST) Hemoglobin A1C 7.0(H) <5.7 % 07/21/2023 1:42 PM EST [facility] Comment: A1c% Interpretation 5.7 - 6.0 Increase risk of diabetes 6.1 - 6.4 Higher risk of diabetes > or = 6.5 Consistent with diabetes Diabetes Care, 33(Supp 1):S1-S61, 2010 Estimated Average Glucose 154 mg/dL 07/21/2023 1:42 PM [facility] Blood specimen / Unknown 07/21/2023 1:11 AM EST 07/21/2023 1:59 AM EST us Bernie Tony DO LAB BLOOD [place] [address], [place] [address] from Last 3 Months or Most Recently Relevant to Health Maintenance Insurance MEDICARE PART A & B MEDICAID OUT OF STATE [facility] MEDICARE PART A & B [facility] MEDICARE OUT OF NETWORK Advance Directives * DNR (Latest Code Status on File) Date Activated Date Inactivated Comments 07/21/2023 5:56 PM DNR/ DNI Question Answer Comments Decision thoroughly discussed with: Patient * Full Code Date Activated Date Inactivated Comments 07/21/2023 6:54 AM 07/21/2023 5:56 PM Care Teams Stull Hewer Relationship Specialty Start Date End Date Chiquis Grajeda MD [address] [place] [address] [place] [address] PCP - General Internal Medicine 07/21/23
--- OUTSIDE RECORDS SUMMARY | 2025-03-01 10:17 | XMS_ITS | Clinical Summary ---
Author Organization [facility] ity Address [address] [place] [address] Care Team Providers Care Steam Drier Tender Name Role Phone Chiquis Grajeda MD Primary Care Provider [phone] Social History Tobacco Use Types Packs/Day Years [...] 07/21/2023 Social Influencers of Health Screening 07/21/2023 Depression Screening 06/27/2024 COVID-19 Vaccine ( - 2023-2 5 season) 2025 Influenza Vaccine (#1) 2025 RSV Immunization Adult [...] age to complete this topic Care Teams Steam Drier Tender Relationship Specialty Start Date End Date Chiquis Grajeda MD [address] [place] [address] Dr [address] [facility] [place] [address] PCP - General 12/01/22
== END ==
LOC: HO.CARD 09:34
PROVIDERS: PCP Internal Medicine; Visit Provider Internal Medicine Cardiovascular Disease
DX: R00.1 Bradycardia, unspecified (principal); J43.9 Emphysema, unspecified
CPT/HCPCS: 93270; 93306

== ENCOUNTER → 2025-03-01 09:37 | Outpatient (BNV) | payer OTHER, SELFPAY | PROVIDERS: PCP Internal Medicine; Visit Provider Internal Medicine Cardiovascular Disease | DX: R00.1 Bradycardia, unspecified (principal) | CPT/HCPCS: 93306 ==

== ENCOUNTER 2025-03-11 09:52 | Outpatient (REF) | payer OTHER, SELFPAY ==
--- NOTE | ~2025-03-11 | CT_ITS ---
EXAMINATION: CT CHEST WITHOUT CONTRAST CLINICAL INFORMATION: Solitary pulmonary nodule. COMPARISON: November 24, 2024. September 06, 2023. TECHNIQUE: Multidetector volumetric CT imaging of the chest was done. Axial MIP volume rendering provided. Sagittal and coronal reformatted images were obtained. This CT examination was performed using dose optimization techniques as appropriate, variously including the following: *Automated exposure control *Adjustment of mA and/or kV according to patient size (this includes techniques or standardized protocols for targeted exams where dose is matched to indication/reason for exam; i.e. extremities or head) *Use of iterative reconstruction technique DLP: 131 mGy centimeter. FINDINGS: CHIEF OPERATING ENGINEER: Patient is large body habitus. Heart is not enlarged. Both upper extremities at both sides of the head. LUNGS: Paraseptal and centrilobular emphysematous changes. Linear thickened attenuation abnormalities both lower lung lobes and lingula prominent in the right lower lung lobe. 1 mm noncalcified pulmonary nodule, right upper lung lobe. 1.5 mm calcified pulmonary nodule likely granuloma, right upper lung lobe. 3 mm patchy pulmonary groundglass, right lung base. 1 mm noncalcified pulmonary nodule in the periphery of the right upper lung lobe. There are secretions layering the dependent portion of the lower intrathoracic trachea into the right and possibly left mainstem bronchus. No gross honeycombing. MEDIASTINUM: Nonspecific prominent mediastinal lymph nodes. Vascular calcifications in the thoracic aorta wall extending branches without gross aneurysm. Small trace pericardial effusion. No pneumomediastinum. No hemopericardium. Heart is small. CORONARY ARTERY CALCIFICATION: Calcified plaques. PLEURA: No pleural effusion. No pneumothorax. No calcified pleural plaques. No hemothorax. AXILLA: No lymphadenopathy. UPPER ABDOMEN: No gross abnormality. Calcified plaques in the suprarenal abdominal aorta wall. Heterogeneous prominent right thyroid lobe with questionable 2.5 cm dominant nodule. OSSEOUS STRUCTURES: Multilevel spondylosis without acute fracture or gross listhesis. No lytic or blastic lesions. Sternum is intact. No acute rib fracture. CT/CT chest wo IV con IMPRESSION: Centrilobular and paraseptal emphysematous changes with nonspecific subcentimeter pulmonary nodules. Improved aeration of the lower lung lobes. Concerning aspiration and likely aspiration pneumonia. Fleischner guidelines were followed. Electronically signed by: Bobby Wood MD 03/11/2025 10:24 AM EDT RP
--- OUTSIDE RECORDS SUMMARY | 2025-03-11 12:10 | XMS_ITS | Clinical Summary ---
Author Organization [facility] ity Address [address] [place] [address] Care Team Providers Care Cat Wagon Operator Name Role Phone Chiquis Grajeda MD Primary Care Provider [phone] Social History Tobacco Use Types Packs/Day Years [...] age to complete this topic Care Teams Cat Wagon Operator Relationship Specialty Start Date End Date Chiquis Grajeda MD [address] [place] [address] Dr [address] [facility] [place] [address] PCP - General 12/01/22
--- OUTSIDE RECORDS SUMMARY | 2025-03-11 12:10 | XMS_ITS | Patient Health Record ---
Author Organization [facility] Address [address] [place] [address] Care Team Providers Care Non Linear Editor Name Role Phone Chiquis Grajeda Primary Care Provider Ijeoma Love [phone] Allergies Allergen (clinical drug ingredient) Drug/Non Drug [...] Problem Acquired hammer toe of right foot (5602180354397755 ) Other hammer toe(s) (acquired), right foot (M20.41) Active confirmed Problem Acquired hammer toe of left foot (8656029576681846 ) Other hammer toe(s) (acquired), left foot (M20.42) Active confirmed Problem Polyneuropathy due to type 2 diabetes mellitus (347143106) Type 2 diabetes mellitus with diabetic polyneuropathy (E11.42) Active confirmed Vital Signs Blood pressure diastolic 68 mm Hg 02/26/2025 Height 5ft 5.5in in 02/26/2025 Blood pressure systolic 120 mm Hg 02/26/2025 Weight 183 lbs 02/26/2025 BMI 29.99 kg/m2 02/26/2025 Encounters Encounter Location Date Provider Diagnosis [address] [address] 03/27/2024 Ijeoma Joseph Type 2 diabetes mellitus with diabetic polyneuropathy E11.42 ; Other hammer toe(s) (acquired), right foot M20.41 and Other hammer toe(s) (acquired), left foot M20.[address] [address] 06/19/2024 Ijeoma Joseph Other hammer toe(s) (acquired), right foot M20.41 ; Xerosis of skin L85.3 ; Type 2 diabetes mellitus with diabetic polyneuropathy E11.42 and Other hammer toe(s) (acquired), left foot M20.[address] [address] 08/31/2024 Ijeoma Joseph Other hammer toe(s) (acquired), right foot M20.41 ; Xerosis of skin L85.3 ; Type 2 diabetes mellitus with diabetic polyneuropathy E11.42 and Other hammer toe(s) (acquired), left foot M20.[address] [address] 11/23/2024 Ijeoma Joseph Type 2 diabetes mellitus with diabetic polyneuropathy E11.42 ; Other hammer toe(s) (acquired), right foot M20.41 and Other hammer toe(s) (acquired), left foot M20.[address] [address] 02/26/2025 Ijeoma Joseph Type 2 diabetes mellitus with diabetic polyneuropathy E11.[address] [address] 08/31/2024 Ijeoma Joseph Assessments Encounter Date Diagnosis [...] - M20.42) 11/23/2024 Other hammer toe(s) (acquired), right foot (ICD-10 - M20.41) Patient Educated with: DIABETIC FOOT CARE INSTRUCTIONS. pdf (DIABETIC FOOT CARE INSTRUCTIONS. pdf) 06/19/2024 Type 2 diabetes mellitus with diabetic polyneuropathy (ICD-10 - E11.42) 08/31/2024 Type 2 diabetes mellitus with diabetic polyneuropathy (ICD-10 - E11.42) 11/23/2024 Other hammer toe(s) (acquired), left foot (ICD-10 - M20.42) 08/31/2024 Other hammer toe(s) (acquired), left foot (ICD-10 - M20.42) 06/19/2024 Other hammer toe(s) (acquired), left foot (ICD-10 - M20.42) 11/23/2024 Other Patient Educated with: DIABETIC FOOT CARE INSTRUCTIONS. pdf (DIABETIC FOOT CARE INSTRUCTIONS. pdf) Plan Of Treatment Next Appt Details Provider Name:Ijeoma pitts, 05/14/2025 09:30:00 AM, [address] [place], [address], Insurance Providers Payer Name Payer Address Payer Phone Subscriber Number Group Number Insured Name Patient Relationship to Insured Coverage Start Date Coverage End Date [facility] [employer] Claims [address] [place] [phone] [id number] Sofiya Rivas Self - patient is the insured Medical (General) History Medical History History ICD Code Anxiety Arthritis Back,Hip,and Knee pain Cataracts Depression Diabetic Glaucoma Lung disease Macular degeneration Numbness Reflux ( GERD) thyroid Measles Chicken pox Joint implants/screws Transfusions COPD Surgical History Surgery Date(Month/Year) back surgery [id number] facial cosmetic surgery 1977 spine surgery 11/16/2023 eye surgery 12/24/24 Hospitalization History Reason Date(Month/Year) [facility] spine surgery 11/16/2023
--- OUTSIDE RECORDS SUMMARY | 2025-03-11 12:10 | XMS_ITS | Clinical Summary ---
Author Organization [facility] Address [address] [place] [address] Care Team Providers Care Supervisor Channel Process Name Role Phone Chiquis Grajeda MD Primary Care Provider [phone] Allergies Active Allergy Reactions Criticality Noted Date [...] and older) 10/21/2015 Hemoglobin A1C 01/19/2024 07/21/2023 Creatinine with GFR 07/25/2024 07/25/2023, 07/24/2023, 07/23/2023, Additional history exists Influenza Vaccine 01/25/2025 COVID-19 Vaccine ( season) 2025 Hepatitis B Vaccines Aged Out No long [...] - 99 mg/dL 07/25/2023 8:26 AM EST [facility] Comment:Fasting: <100 mg/dL, Non-Fasting: <200 mg/dL (ADA 2005) Blood Urea Nitrogen (BUN) 12 8 - 21 mg/dL 07/25/2023 8:26 AM EST [facility] Creatinine 0.6 0.4 - 1.1 mg/dL 07/25/2023 8:26 AM [facility] eGFR >90 >59 07/25/2023 8:26 AM [facility] Comment:CKD-EPI (2020) in mL /min/1.73 sq meters. Sodium 142 136 - 145 mmol/L 07/25/2023 8:26 AM [facility] Potassium 4.0 3.4 - 5.3 mmol/L 07/25/2023 8:26 AM [facility] Chloride 103 98 - 107 mmol/L 07/25/2023 8:26 AM [facility] CO2 25 22 - 33 mmol/L 07/25/2023 8:26 AM [facility] Calcium 9.3 8.7 - 10.5 mg/dL 07/25/2023 8:26 AM [facility] Alkaline Phosphatase 62 32 - 122 U/L 07/25/2023 8:26 AM [facility] Aspartate Aminotrans (AST) 57(H) 10 - 50 U/L 07/25/2023 8:26 AM [facility] Alanine Aminotrans (ALT) 36 10 - 50 U/L 07/25/2023 8:26 AM [facility] Bilirubin, Total 0.6 0.2 - 1.0 mg/dL 07/25/2023 8:26 AM [facility] Protein, Total 5.8(L) 6.3 - 8.3 g/dL 07/25/2023 8:26 AM [facility] Albumin 3.4 3.4 - 4.8 g/dL 07/25/2023 8:26 AM [facility] BUN/Creatinine Ratio 20 10.0 - 25.0 Ratio 07/25/2023 8:26 AM [facility] Globulin 2.4 1.5 - 3.9 g/dL 07/25/2023 8:26 AM [facility] Albumin/Globulin Ratio 1.4 1.0 - 3.0 Ratio 07/25/2023 8:26 AM [facility] Anion Gap 14 7 - 17 07/25/2023 8:26 AM [facility] Blood specimen (specimen) (Plasma/Serum) 07/25/2023 6:49 AM EST 07/25/2023 6:56 AM EST us Mary Mason DO LAB BLOOD ORDERABLES Final Resul t Performing Organization Address [facility] Co de Phone Number [address] [address], [address] [address] * (ABNORMAL) HEMOGLOBIN A1C WITH ESTIMATED AVERAGE GLUCOSE (07/21/2023 1:11 AM EST) Hemoglobin A1C 7.0(H) <5.7 % 07/21/2023 1:42 PM EST [facility] Comment: A1c% Interpretation 5.7 - 6.0 Increase risk of diabetes 6.1 - 6.4 Higher risk of diabetes > or = 6.5 Consistent with diabetes Diabetes Care, 33(Supp 1):S1-S61, 2010 Estimated Average Glucose 154 mg/dL 07/21/2023 1:42 PM [facility] Blood specimen / Unknown 07/21/2023 1:11 AM EST 07/21/2023 1:59 AM EST us Bernie Tony DO LAB BLOOD [place] [address], [place] [address] from Last 3 Months or Most Recently Relevant to Health Maintenance Insurance MEDICARE PART A & B MEDICAID OUT OF STATE [facility] MEDICARE PART A & B [facility] [place] MEDICARE OUT OF NETWORK Advance Directives * DNR (Latest Code Status on File) Date Activated Date Inactivated Comments 07/21/2023 5:56 PM DNR/ DNI Question Answer Comments Decision thoroughly discussed with: Patient * Full Code Date Activated Date Inactivated Comments 07/21/2023 6:54 AM 07/21/2023 5:56 PM Care Teams Supervisor Channel Process Relationship Specialty Start Date End Date Chiquis Grajeda MD [address] [place] [address] [place] [address] PCP - General Internal Medicine 07/21/23
== END 2025-03-11 09:53 | disposition home or self-care (01) ==
LOC: HO.CT 09:52
PROVIDERS: PCP Internal Medicine; Visit Provider Internal Medicine
DX: R91.1 Solitary pulmonary nodule (principal)
CPT/HCPCS: 71250

== ENCOUNTER → 2025-03-11 09:54 | Outpatient (BNV) | payer OTHER, SELFPAY | PROVIDERS: PCP Internal Medicine; Visit Provider Radiology Diagnostic Radiology | DX: R91.1 Solitary pulmonary nodule (principal) | CPT/HCPCS: 71250 ==

== ENCOUNTER 2025-03-20 09:41 | Outpatient (AMB) | payer OTHER, SELFPAY ==
[2025-03-20 09:59] VITALS: BP 102/62; PULSE 77; O2SAT 92; BMI 29.9
--- NOTE | 2025-03-20 09:59 | MHC.OFFVIS ---
Vital Signs 03/20/25 09:59 Height 5 ft 5 in Weight 179 lb 10.828 oz BMI 29.9 BP 102/62 Blood Pressure Location Lt brachial Position Sitting Pulse 77 Pulse Source Pulse Oximeter Pulse Oximetry (%) 92 Oxygen Delivery Method Room Air Intake Visit Reasons: copd Intake Note: pt is here for follow up and states she is feeling okay today, using oxygen at night while sleeping and during the day prn. pt is stating that she received advair disk and she cannot take this, the powder makes her gag, symbicort worked well or Advair HFA. Import Coordination And Production Head Required: No Allergies aspirin (ASPIRIN) Allergy (Severe, Verified 03/20/25 10:28) GI bleed, stomach upset ibuprofen (IBUPROFEN) Allergy (Severe, Verified 03/20/25 10:28) GI Bleed, stomach upset valsartan (From Diovan) Allergy (Severe, Verified 03/20/25 10:28) hives ziprasidone (From Geodon) Allergy (Severe, Verified 03/20/25 10:28) RASH-PALPITATIONS azithromycin Allergy (Intermediate, Verified 03/20/25 10:28) facial swelling metformin (METFORMIN) Allergy (Intermediate, Verified 03/20/25 10:28) NAUSEA & VOMITING, GI upset cephalexin (From KEFLEX) Allergy (Unknown, Verified 03/20/25 10:28) can't remember lisinopril Allergy (Unknown, Verified 03/20/25 10:28) cough NSAIDS (Non-Steroidal Anti-Inflamma (NSAIDS (NON-STEROIDAL ANTI-INFLAMMA) Adverse Reaction (Severe, Verified 03/20/25 10:28) HX OF GI BLEED tramadol (Ultram) Adverse Reaction (Severe, Verified 03/20/25 10:28) GI upset sulfamethoxazole (From Bactrim) Adverse Reaction (Intermediate, Verified 03/20/25 10:28) Hives tiotropium (From Spiriva with HandiHaler) Adverse Reaction (Intermediate, Verified 03/20/25 10:28) Unknown trimethoprim (From Bactrim) Adverse Reaction (Intermediate, Verified 03/20/25 10:28) Hives doxycycline Adverse Reaction (Mild, Verified 03/20/25 10:28) Stomach Upset Medication List - Last Reconciled 03/20/25 by Nicholas Richter MD acetaminophen 1,000 mg (2 x 500 mg) PO TID PRN albuterol sulfate 90 mcg/actuation 2 puffs inhalation Q4H PRN 60 days aripiprazole 20 mg PO DAILY atorvastatin 40 mg PO BEDTIME brimonidine 0.15% 1 drp ophthalmic (eye) BID cholecalciferol (vitamin D3) 50 mcg PO BEDTIME clonazepam 0.5 mg PO BID PRN cyanocobalamin (vitamin B-12) (Vitamin B-12) 500 mcg PO DAILY 90 days [dressing stick As directed] [easy on sock aid As directed] esomeprazole magnesium 40 mg PO DAILY@0630 fenofibrate 160 mg PO DAILY fexofenadine 180 mg PO DAILY flash glucose sensor ([employer] Jill 2 Sensor kit) As directed fluticasone propion-salmeterol 250-50 mcg/dose (Advair Diskus) 1 inh inhalation BID gabapentin 600 mg PO TID 30 days glipizide ER 5 mg PO DAILY guaifenesin ER (Mucinex) 600 mg PO BID Jardiance (empagliflozin) 25 mg PO DAILY NS levothyroxine 25 mcg PO DAILY@0600 mirtazapine 30 mg PO BEDTIME netarsudil-latanoprost 0.02-0.005 % (Rocklatan) 1 drp ophthalmic (eye) BEDTIME [new lift chair As directed] pen needle, diabetic (Comfort EZ Pen Becker) As directed injects 3 X/day pioglitazone (Actos) 30 mg PO BEDTIME quetiapine 50 mg PO BID PRN sennosides (senna) 8.6 mg PO BEDTIME PRN 90 days Shower Chair As directed [Transfer wheelchair As directed] vit C,C-Yn-icxlg-lutein-zeaxan 250-90-40-1 mg (PreserVision AREDS-2) 1 cap PO BID [WHEELCHAIR As directed] Do you need a note to return to daycare/school/sports/work: No HPI HPI copd: Details: This 74 years old female has been recently treated for acute exacerbation. Of COPD in the hospital She is here today for follow-up. Main issue is that she continues to have cough, she does bring up lot. Of phlegm especially in the morning hours She gets short of breath on minimal exertion. She has not qualified for daytime oxygen use, and is looking to by [employer] [id number]. She thinks use of oxygen would help her. She does have nocturnal hypoxemia and uses O2 2 L/minute at night . She still smokes 10 cigarettes a day. [facility] Medical History Respiratory failure with hypoxia Tobacco dependence Hypothyroid Macular degeneration Acute exacerbation of chronic obstructive pulmonary disease (COPD) Dermatitis of vulva Uses wheelchair Wears dentures Supplemental oxygen dependent Slow to wake up after anesthesia Lumbar spinal stenosis Smoker Nicotine dependence, cigarettes, uncomplicated Acute respiratory failure with hypoxia Vulvar ulcer Recurrent major depression-severe Lower extremity pain Sialoadenitis Jaw pain العلي (dyspnea on exertion) Chest pain Osteopenia (~2015) Sinus tachycardia Pulmonary nodule Menopausal state Artificial menopause state Constipation Nocturnal hypoxemia COPD (chronic obstructive pulmonary disease) Spinal stenosis Depression Vitamin D deficiency Multinodular thyroid HLD (hyperlipidemia) T2DM (type 2 diabetes mellitus) (~2008) Surgical History Hx of eye surgery History of cataract surgery S/P thyroid biopsy History of lithotripsy History of cardiac catheterization Hx of colonoscopy Hx of arthroscopy of left knee Hx of spinal fusion Hx of cholecystectomy Family History Father No problems noted. Mother Cancer Diabetes Social History Household Members: None Housing: Apartment Are you a primary child care education coordinator to a significant other at home: No Do you presently have visiting nurse or other home services: Yes Alcohol intake: never Comment: aware of trip hazard Patient Tobacco Use Status: Current everyday Tobacco user Smoking Start Date: 04/01/1964 Tobacco use type: Cigar Cigarette Packs Per Day: 0.5 Cigarettes Per Day: 8 Years Smoked: 60 e-Cigarette/Vaping Use: Currently Using Second Hand Smoke Exposure: No Advance Directives Date on File: 12/02/22 service: No Current occupational status: retired Sexual orientation: Straight/Heterosexual Cognitive needs: No Hearing needs: No Vision needs: Yes Female Reproductive History Menstrual Age of Menarche: 12 Review of Systems Const All systems reviewed & are unremarkable except as noted in HPI and below Eyes Reports no additional complaints ENT Reports nasal congestion (Mild intermittent) Card Denies chest pain, Denies irregular heart rhythm and Denies leg edema Resp Reports as per HPI GI Reports constipation and Reports dyspepsia Reports no additional complaints Musc Reports abnormal gait (Gait impaired has to use walker), Reports back pain and Reports arthralgias Skin/Breast Reports system reviewed and no additional complaints, except as documented Neuro Reports abnormal gait (Gait impaired has to use walker) Psych Reports anxiety, Reports depression and Reports mood swings Endo Reports other (Being treated for diabetes mellitus) Physical Exam Vital Signs: Last Vital Signs Pulse 77 03/20/25 09:59 BP 102/62 03/20/25 09:59 Pulse Ox 92 03/20/25 09:59 Oxygen Delivery Method Room Air 03/20/25 09:59 BMI result Body Mass Index 29.9 Const General: comfortable and no acute distress Orientation/consciousness: patient oriented x3 HEENT Head: Yes normal to inspection General nose exam: No nasal polyps present and No nasal discharge present Face and sinus: Yes sinuses nontender Mouth: oropharynx abnormals (Crowded, Mallampati class 4) Throat: Yes posterior oropharynx normal Eyes General: appearance normal, both eyes and all related structures Neck Neck: Yes normal visual inspection, Yes no lymphadenopathy, Yes trachea midline and Yes no JVD Thyroid: Thyroid normal Chest Chest palpation & inspection: normal inspection of the chest, normal palpation of entire chest wall and no tenderness Resp Other: Percussion note resonant, breath sounds are distant with prolonged expiratory phase. On auscultation she does have scattered expiratory wheezes on both sides. ( has not been using maintenance inhaler and also does not have albuterol inhaler on hand ) Cardio Palpation: normal PMI Rate: regular rate Rhythm: regular rhythm Heart sounds: no gallops and no murmurs GI Palpation (GI): Soft to palpation, nontender, No hepatosplenomegaly present and no masses Auscultation: normal bowel sounds Back/Spine/Pelvis Thoracic/Lumbar Spine: thoracic and lumbar spine normal to inspection and thoraco-lumbar ROM limited Skin General skin exam: no rashes or lesions noted Neuro General: patient oriented x3, No gait normal (Somewhat unsteady gait, uses walker) and no focal motor deficits Cranial nerves: Yes CN's II-XII intact bilaterally Extrem General: Yes normal to inspection, Yes no clubbing, cyanosis or edema and Yes no calf tenderness Psych Appearance: grossly normal and well kempt Speech and movement: Normal speech and movement present Results Reviewed Results Reviewed: CT SCAN ON 03/11/25 IMPRESSION: Centrilobular and paraseptal emphysematous changes with nonspecific subcentimeter pulmonary nodules. Improved aeration of the lower lung lobes. Concerning aspiration and likely aspiration pneumonia. Fleischner guidelines were followed. Electronically signed by: Bobby Wood MD 03/11/2025 10:24 AM EDT Assessment & Plan Assessment & Plan (1) COPD (chronic obstructive pulmonary disease): Comment: Long-time chronic obstructive pulmonary disease, moderately severe,, controlled and stable. At present she has mild intermittent cough and some wheezing especially in the morning and when she walks around. Code(s): J44.9 - Chronic obstructive pulmonary disease, unspecified Category: Medical Qualifiers: COPD type: emphysema Emphysema type: unspecified Qualified Code(s): J43.9 - Emphysema, unspecified Plan: ADVAIR DISKUS IS CHANGED TO ADVAIR HFA 115-21 TO USE 2 PUFFS B.I.D. ALBUTEROL HFA 2 PUFFS Q 4-6 HOURS P.R.N.. MUCINEX ER 600 MG B.I.D. FOR MUCUS. (2) Pulmonary nodule: Comment: Patient has multiple small pulmonary nodules unchanged from before Two ground-glass nodular densities in lower lobes are somewhat increased from before. Need to be followed up closely. She is being followed by, our Lung screening team. Last CT scan on 09/06/23 showed persistent density in the left lower lobe, , PET scan did not show any activity. ALBUTEROL HFA 2 PUFFS Q [address] scan on 11/24/24 while she was in the hospital, did not show any definite pulmonary nodules but showed mild bibasilar atelectasis . CT SCAN OF THE CHEST ON 03/11/2025, AGAIN NO NODULES. BUT EVIDENCE OF MUCUS IN THE DISTAL PART OF TRACHEA AND RIGHT UPPER BRONCHUS. Code(s): R91.1 - Solitary pulmonary nodule Category: Medical Plan: ONCE AGAIN WE STRESSED THAT SHE HAS TO QUIT SMOKING COMPLETELY, BUT CONSIDERING UNDERLYING PSYCHOLOGICAL CONDITION I SHE IS NOT GOOD TO QUIT WILL CONTINUE TO HAVE LOW-DOSE CT SCAN ONCE A YEAR . (3) Exercise hypoxemia: Comment: 6 minutes walk test on last visit showed that she did desaturate on room air and needed O2 2 L/minute for walking. She was provided with a portable unit , B-Cylinder , but she insisted on returning it as she does not want to uses cylinder. She wants to use Inogen unit. WHICH HAS BEEN ORDERED BUT SHE HAS NOT RECEIVED IT YET. She is looking around to buy a used Inogen, [id number]. Code(s): R09.02 - Hypoxemia Category: Medical Plan: Use O2 2 L/minute when walking outdoors or going outdoors for short periods. (4) Smoker: Comment: Patient is a lifelong smoker. Has tried to quit smoking many times, but has not been able to quit complete. Her smoking goes up to 1 and half pack a day and then she can cut down to half pack a day, depending upon levels of her anxiety. Since her admission 2 weeks ago she has cut down to 10 cigarettes a day. Code(s): F17.200 - Nicotine dependence, unspecified, uncomplicated Category: Social Hx Plan: HAD A GOOD TALK WITH HER AGAIN AND TRIED STRESS THAT SHE HAS TO QUIT SMOKING. HE IS GOING TO TRY TO CUT THE NUMBER OF CIGARETTES TO 6 PER DAY (5) Respiratory failure with hypoxia: Comment: PATIENT DOES HAVE NOCTURNAL HYPOXEMIA WELL DAYTIME HYPOXEMIA WITH ANY PHYSICAL EFFORT. SHE HAS BEEN ON OXYGEN THERAPY, 2 L/MINUTE. On her last visit a month ago she qualified for using portable O2 concentrator( POC ) which she still has not received. It is difficult for her to go outdoors without oxygen. Code(s): J96.91 - Respiratory failure, unspecified with hypoxia Category: Medical Plan: PATIENT SHOULD USE. O2 2 L/MINUTE AT NIGHT SHE IS LOOKING FOR I INOGEN UNIT, AND WOULD USE IT WHEN SHE GOES OUTDOORS, FOR THE TIME BEING SHE CAN NOT. USE THE O2 CYLINDER Coding Level of Care Code Est Pt Level 3 (29587) Diagnoses Pulmonary emphysema, unspecified emphysema type J43.9 COPD type: emphysema Emphysema type: unspecified Pulmonary nodule R91.1 Exercise hypoxemia R09.02 Smoker F17.200 Respiratory failure with hypoxia J96.91
--- OUTSIDE RECORDS SUMMARY | 2025-03-20 11:47 | XMS_ITS | Clinical Summary ---
Author Organization [facility] ity Address [address] [place] [address] Care Team Providers Care Business Analytics Analyst Name Role Phone Chiquis Grajeda MD Primary Care Provider [phone] Social History Tobacco Use Types Packs/Day Years [...] age to complete this topic Care Teams Business Analytics Analyst Relationship Specialty Start Date End Date Chiquis Grajeda MD [address] [place] [address] Dr [address] [facility] [place] [address] PCP - General 12/01/22
--- OUTSIDE RECORDS SUMMARY | 2025-03-20 11:47 | XMS_ITS | Clinical Summary ---
Author Organization [facility] Address [address] [place] [id number] Care Team Providers Care Biophysics Scientist Name Role Phone Chiquis Grajeda MD Primary Care Provider [phone] Allergies Active Allergy Reactions Criticality Noted Date [...] - 99 mg/dL 07/25/2023 8:26 AM EST [facility] Comment:Fasting: <100 mg/dL, Non-Fasting: <200 mg/dL (ADA 2005) Blood Urea Nitrogen (BUN) 12 8 - 21 mg/dL 07/25/2023 8:26 AM EST [facility] Creatinine 0.6 0.4 - 1.1 mg/dL 07/25/2023 8:26 AM [facility] eGFR >90 >59 07/25/2023 8:26 AM [facility] Comment:CKD-EPI (2020) in mL /min/1.73 sq meters. Sodium 142 136 - 145 mmol/L 07/25/2023 8:26 AM [facility] Potassium 4.0 3.4 - 5.3 mmol/L 07/25/2023 8:26 AM [facility] Chloride 103 98 - 107 mmol/L 07/25/2023 8:26 AM [facility] CO2 25 22 - 33 mmol/L 07/25/2023 8:26 AM [facility] Calcium 9.3 8.7 - 10.5 mg/dL 07/25/2023 8:26 AM [facility] Alkaline Phosphatase 62 32 - 122 U/L 07/25/2023 8:26 AM [facility] Aspartate Aminotrans (AST) 57(H) 10 - 50 U/L 07/25/2023 8:26 AM [facility] Alanine Aminotrans (ALT) 36 10 - 50 U/L 07/25/2023 8:26 AM [facility] Bilirubin, Total 0.6 0.2 - 1.0 mg/dL 07/25/2023 8:26 AM [facility] Protein, Total 5.8(L) 6.3 - 8.3 g/dL 07/25/2023 8:26 AM [facility] Albumin 3.4 3.4 - 4.8 g/dL 07/25/2023 8:26 AM [facility] BUN/Creatinine Ratio 20 10.0 - 25.0 Ratio 07/25/2023 8:26 AM [facility] Globulin 2.4 1.5 - 3.9 g/dL 07/25/2023 8:26 AM [facility] Albumin/Globulin Ratio 1.4 1.0 - 3.0 Ratio 07/25/2023 8:26 AM [facility] Anion Gap 14 7 - 17 07/25/2023 8:26 AM [facility] Blood specimen (specimen) (Plasma/Serum) 07/25/2023 6:49 AM EST 07/25/2023 6:56 AM EST us Mary Mason DO LAB BLOOD ORDERABLES Final Resul t Performing Organization Address [facility] Co de Phone Number [address] [address], [address] [address] * (ABNORMAL) HEMOGLOBIN A1C WITH ESTIMATED AVERAGE GLUCOSE (07/21/2023 1:11 AM EST) Hemoglobin A1C 7.0(H) <5.7 % 07/21/2023 1:42 PM EST [facility] Comment: A1c% Interpretation 5.7 - 6.0 Increase risk of diabetes 6.1 - 6.4 Higher risk of diabetes > or = 6.5 Consistent with diabetes Diabetes Care, 33(Supp 1):S1-S61, 2010 Estimated Average Glucose 154 mg/dL 07/21/2023 1:42 PM [facility] Blood specimen / Unknown 07/21/2023 1:11 AM EST 07/21/2023 1:59 AM EST us Bernie Tony DO LAB BLOOD ORDERAB[place] [address], [place] [address] from Last 3 Months or Most Recently Relevant to Health Maintenance Insurance MEDICARE PART A & B [place]ICA[place] OUT OF [place] [facility] [place] B [facility] [place] [place] OUT OF NETWORK Advance Directives * DNR (Latest Code Status on File) Date Activated Date Inactivated Comments 07/21/2023 5:56 PM DNR/ DNI Question Answer Comments Decision thoroughly discussed with: Patient * Full Code Date Activated Date Inactivated Comments 07/21/2023 6:54 AM 07/21/2023 5:56 PM Care Teams Biophysics Scientist Relationship Specialty Start Date End Date Chiquis Grajeda MD [address] [place] [address] [place] [address] PCP - General Internal Medicine 07/21/23
--- OUTSIDE RECORDS SUMMARY | 2025-03-20 11:47 | XMS_ITS | Patient Health Record ---
[facility] Address [address] [place] [address] Care Team Providers Care Bird Keeper Name Role Phone Chiquis Grajeda Primary Care Provider Ijeoma Love [phone] Allergies Allergen (clinical drug ingredient) Drug/Non Drug [...] Problem Acquired hammer toe of right foot (0921947975907529 ) Other hammer toe(s) (acquired), right foot (M20.41) Active confirmed Problem Acquired hammer toe of left foot (1497407128808907 ) Other hammer toe(s) (acquired), left foot (M20.42) Active confirmed Problem Polyneuropathy due to type 2 diabetes mellitus (183756921) Type 2 diabetes mellitus with diabetic polyneuropathy (E11.42) Active confirmed Vital Signs Blood pressure diastolic 68 mm Hg 02/26/2025 Height 5ft 5.5in in 02/26/2025 Blood pressure systolic 120 mm Hg 02/26/2025 Weight 183 lbs 02/26/2025 BMI 29.99 kg/m2 02/26/2025 Encounters Encounter Location Date Provider Diagnosis [address] [address] 03/27/2024 Ijeoma Joseph Type 2 diabetes mellitus with diabetic polyneuropathy E11.42 ; Other hammer toe(s) (acquired), right foot M20.41 and Other hammer toe(s) (acquired), left foot M20.[address] [address] 06/19/2024 Ijeoma Joseph Other hammer toe(s) (acquired), right foot M20.41 ; Xerosis of skin L85.3 ; Type 2 diabetes mellitus with diabetic polyneuropathy E11.42 and Other hammer toe(s) (acquired), left foot M20.[address] [address] 08/31/2024 Ijeoma Joseph Other hammer toe(s) (acquired), right foot M20.41 ; Xerosis of skin L85.3 ; Type 2 diabetes mellitus with diabetic polyneuropathy E11.42 and Other hammer toe(s) (acquired), left foot M20.[address] [address] 11/23/2024 Ijeoma Joseph Type 2 diabetes mellitus with diabetic polyneuropathy E11.42 ; Other hammer toe(s) (acquired), right foot M20.41 and Other hammer toe(s) (acquired), left foot M20.[address] [address] 02/26/2025 Ijeoma Joseph Type 2 diabetes mellitus with diabetic polyneuropathy E11.[address] [address] 08/31/2024 Ijeoma Joseph Assessments Encounter Date Diagnosis [...] Of Treatment Next Appt Details Provider Name:Ijeoma iptts, 05/14/2025 09:30:00 AM, [address] [place], [address], Insurance Providers Payer Name Payer Address Payer Phone Subscriber Number Group Number Insured Name Patient Relationship to Insured Coverage Start Date Coverage End Date [facility] [employer] Claims [address] [place] [phone] [id number] Sofiya Rivas Self - patient is the insured Medical (General) History Medical History History ICD Code Anxiety Arthritis Back,Hip,and Knee pain Cataracts Depression Diabetic Glaucoma Lung disease Macular degeneration Numbness Reflux ( GERD) thyroid Measles Chicken pox Joint implants/screws Transfusions COPD Surgical History Surgery Date(Month/Year) back surgery [id number] facial cosmetic surgery 1977 spine surgery 11/16/2023 eye surgery 12/24/24 Hospitalization History Reason Date(Month/Year) [facility] spine surgery 11/16/2023
== END 2025-03-20 10:27 | disposition home or self-care (01) ==
LOC: HO.HPS 09:42
PROVIDERS: PCP Internal Medicine; Visit Provider Internal Medicine
DX: J43.9 Emphysema, unspecified (principal); R91.1 Solitary pulmonary nodule; R09.02 Hypoxemia; F17.200 Nicotine dependence, unspecified, uncomplicated; J96.91 Respiratory failure, unspecified with hypoxia
CPT/HCPCS: 99213

== ENCOUNTER → 2025-03-20 09:41 | Outpatient (BNVA) | payer OTHER, SELFPAY | PROVIDERS: PCP Internal Medicine; Visit Provider Internal Medicine | DX: J43.9 Emphysema, unspecified (principal); J96.91 Respiratory failure, unspecified with hypoxia; R91.1 Solitary pulmonary nodule; R09.02 Hypoxemia; F17.210 Nicotine dependence, cigarettes, uncomplicated | CPT/HCPCS: 99212 ==

== ENCOUNTER 2025-04-19 09:28 | Outpatient (AMB) | payer OTHER, SELFPAY ==
[2025-04-19 09:32] VITALS: BP 100/62; PULSE 81; BMI 30.1
--- NOTE | 2025-04-19 09:32 | A.OFFVIS_ITS ---
Vital Signs 04/19/25 09:32 Height 5 ft 5 in Weight 180 lb 12.465 oz BMI 30.1 BP 100/62 Blood Pressure Location Lt brachial Position Sitting Pulse 81 Pulse Source Pulse Oximeter Intake Visit Reasons: 2 mth f/up Skein Winding Operator Required: No Allergies aspirin (ASPIRIN) Allergy (Severe, Verified 04/19/25 09:35) GI bleed, stomach upset ibuprofen (IBUPROFEN) Allergy (Severe, Verified 04/19/25 09:35) GI Bleed, stomach upset valsartan (From Diovan) Allergy (Severe, Verified 04/19/25 09:35) hives ziprasidone (From Geodon) Allergy (Severe, Verified 04/19/25 09:35) RASH-PALPITATIONS azithromycin Allergy (Intermediate, Verified 04/19/25 09:35) facial swelling metformin (METFORMIN) Allergy (Intermediate, Verified 04/19/25 09:35) NAUSEA & VOMITING, GI upset cephalexin (From KEFLEX) Allergy (Unknown, Verified 04/19/25 09:35) can't remember lisinopril Allergy (Unknown, Verified 04/19/25 09:35) cough NSAIDS (Non-Steroidal Anti-Inflamma (NSAIDS (NON-STEROIDAL ANTI-INFLAMMA) Adverse Reaction (Severe, Verified 04/19/25 09:35) HX OF GI BLEED tramadol (Ultram) Adverse Reaction (Severe, Verified 04/19/25 09:35) GI upset sulfamethoxazole (From Bactrim) Adverse Reaction (Intermediate, Verified 04/19/25 09:35) Hives tiotropium (From Spiriva with HandiHaler) Adverse Reaction (Intermediate, Verified 04/19/25 09:35) Unknown trimethoprim (From Bactrim) Adverse Reaction (Intermediate, Verified 04/19/25 09:35) Hives doxycycline Adverse Reaction (Mild, Verified 04/19/25 09:35) Stomach Upset Medication List - Last Reconciled 04/19/25 by MAGALIS Porter acetaminophen 1,000 mg (2 x 500 mg) PO TID PRN albuterol sulfate 90 mcg/actuation 2 puffs inhalation Q4H PRN 60 days aripiprazole 20 mg PO DAILY atorvastatin 40 mg PO BEDTIME brimonidine 0.15% 1 drp ophthalmic (eye) BID cholecalciferol (vitamin D3) 50 mcg PO BEDTIME clonazepam 0.5 mg PO BID PRN cyanocobalamin (vitamin B-12) (Vitamin B-12) 500 mcg PO DAILY 90 days [dressing stick As directed] [easy on sock aid As directed] esomeprazole magnesium 40 mg PO DAILY@0630 fenofibrate 160 mg PO DAILY flash glucose sensor (FreeStyle Jill 2 Sensor kit) As directed fluticasone propion-salmeterol 250-50 mcg/dose (Advair Diskus) 1 inh inhalation BID glipizide ER 5 mg PO DAILY guaifenesin ER (Mucinex) 600 mg PO BID Jardiance (empagliflozin) 25 mg PO DAILY NS levothyroxine 25 mcg PO DAILY@0600 mirtazapine 45 mg PO BEDTIME netarsudil-latanoprost 0.02-0.005 % (Rocklatan) 1 drp ophthalmic (eye) BEDTIME [new lift chair As directed] pen needle, diabetic (Comfort EZ Pen [place]) As directed injects 3 X/day pioglitazone (Actos) 30 mg PO BEDTIME quetiapine 50 mg PO BID PRN sennosides (senna) 8.6 mg PO BEDTIME PRN 90 days Shower Chair As directed [Transfer wheelchair As directed] vit C,O-Sf-ooimf-lutein-zeaxan 250-90-40-1 mg (PreserVision AREDS-2) 1 cap PO BID [WHEELCHAIR As directed] HPI HPI 2 mth f/up: Details: Sofiya is a 74-year-old female with past medical history of hyperlipidemia, diabetes, smoking, COPD who had a reported episode of bradycardia and was seen last visit in Cardiology consultation. An echocardiogram and Holter monitor were done and she now presents for follow-up. Today she reports that she has been doing well overall. She does have chronic shortness of breath with activity which she relates to her smoking. She denies shortness of breath at rest, PND, orthopnea or edema. No chest discomfort at rest or with activity. She previously had chest discomfort with palpation however that has since resolved. No heart palpitations, presyncope, syncope, falls. She tells me she does get lightheadedness at times without clear pattern. She has a visiting nurse that comes every day and helps her with her medications due to her issues with macular degeneration. She has chronic back issues and ambulates slowly with a walker. She did get a rash from the adhesive from the cardiac event monitor. [facility] Medical History Respiratory failure with hypoxia Tobacco dependence Hypothyroid Macular degeneration Acute exacerbation of chronic obstructive pulmonary disease (COPD) Dermatitis of vulva Uses wheelchair Wears dentures Supplemental oxygen dependent Slow to wake up after anesthesia Lumbar spinal stenosis Smoker Nicotine dependence, cigarettes, uncomplicated Acute respiratory failure with hypoxia Vulvar ulcer Recurrent major depression-severe Lower extremity pain Sialoadenitis Jaw pain العلي (dyspnea on exertion) Chest pain Osteopenia (~2015) Sinus tachycardia Pulmonary nodule Menopausal state Artificial menopause state Constipation Nocturnal hypoxemia COPD (chronic obstructive pulmonary disease) Spinal stenosis Depression Vitamin D deficiency Multinodular thyroid HLD (hyperlipidemia) T2DM (type 2 diabetes mellitus) (~2008) Surgical History Hx of eye surgery History of cataract surgery S/P thyroid biopsy History of lithotripsy History of cardiac catheterization Hx of colonoscopy Hx of arthroscopy of left knee Hx of spinal fusion Hx of cholecystectomy Family History Father No problems noted. Mother Cancer Diabetes Social History Household Members: None Housing: Apartment Are you a primary interior plant caretaker to a significant other at home: No Do you presently have visiting nurse or other home services: Yes Alcohol intake: never Comment: aware of trip hazard Patient Tobacco Use Status: Current everyday Tobacco user Smoking Start Date: 04/01/1964 Tobacco use type: Cigar Cigarette Packs Per Day: 0.5 Cigarettes Per Day: 8 Years Smoked: 60 e-Cigarette/Vaping Use: Currently Using Second Hand Smoke Exposure: No Advance Directives Date on File: 12/02/22 service: No Current occupational status: retired Sexual orientation: Straight/Heterosexual Cognitive needs: No Hearing needs: No Vision needs: Yes Female Reproductive History Menstrual Age of Menarche: 12 Review of Systems Const All systems reviewed & are unremarkable except as noted in HPI and below ENT Reports dizziness (unsteady at times) Card Denies chest pain, Denies chest pain at rest, Denies chest pain with activity, Denies rapid heart rate, Denies pedal edema, Denies edema, Denies leg edema, Denies lightheadedness, Denies palpitations, Reports dyspnea, Reports dyspnea on exertion and Denies orthopnea Resp Denies cough, Reports dyspnea and Reports dyspnea on exertion GI Denies hematochezia and Denies change in stool character Musc Reports abnormal gait (uses walker), Denies limited range of motion, Denies muscle cramps, Denies muscle weakness, Denies numbness, Denies radiating pain into limb, Denies stiffness and Denies tingling Neuro Reports abnormal gait (uses walker), Reports dizziness (unsteady at times), Denies numbness and Denies tingling Endo Denies palpitations Physical Exam Vital Signs: Last Vital Signs Pulse 81 04/19/25 09:32 BP 100/62 04/19/25 09:32 BMI result Body Mass Index 30.1 Const General: cooperative, healthy appearing, comfortable and no acute distress Orientation/consciousness: patient oriented x3 Neck Neck: Yes normal visual inspection Resp Other: expiratory wheezes Effort & Inspection: normal respiratory effort Auscultation: clear to auscultation bilaterally, no crackles, no rales and no rhonchi Cardio Rate: regular rate Rhythm: regular rhythm Heart sounds: S1 normal heart sound present, S2 normal heart sound present, no gallops, no murmurs and no rubs Neuro General: patient oriented x3 Extrem General: Yes normal to inspection and No no pedal edema Psych Appearance: grossly normal Mental Status: mental status grossly normal Speech and movement: Normal speech and movement present Assessment & Plan Assessment & Plan (1) Bradycardia: Code(s): R00.1 - Bradycardia, unspecified Category: Medical Plan: Reported finding of bradycardia during hospital stay, 08/2024. Full details not available at the time of this visit. No presyncope, syncope or falls. EKG done last visit showed sinus rhythm, rate 85. Cardiac event monitor 03/01/2025 worn for 8.7 days showed sinus rhythm with average heart rate 78, heart rate range 51 to 120, rare PACs and PVCs. Echocardiogram done 03/01/2025 showed EF 55-60%, impaired relaxation, normal valves. Pulse regular on exam today, rate 81. She does get periodic lightheadedness which is vaguely reported. Instructed to notify this office if she is having any presyncope, syncope with ER care if wa rranted. She has visiting nurse who can check vital signs regularly. Cardiology follow-up 1 year, sooner if needed. (2) HLD (hyperlipidemia): Code(s): E78.5 - Hyperlipidemia, unspecified Category: Medical Qualifiers: Hyperlipidemia type: unspecified Qualified Code(s): E78.5 - Hyperlipidemia, unspecified Plan: Brandon LDL goal less than 70 in patient with diabetes. Followed by PCP. Continue atorvastatin. (3) COPD (chronic obstructive pulmonary disease): Comment: Long-time chronic obstructive pulmonary disease, moderately severe,, controlled and stable. At present she has mild intermittent cough and some wheezing especially in the morning and when she walks around. Code(s): J44.9 - Chronic obstructive pulmonary disease, unspecified Category: Medical Qualifiers: COPD type: emphysema Emphysema type: unspecified Qualified Code(s): J43.9 - Emphysema, unspecified Plan: Current smoker, 1 pack per day. Known COPD with expiratory wheezes on exam. Follows with pulmonology. Plan Time spent on chart review, documentation, interview and assessment Coding Level of Care Code Est Pt Level 3 (53576) Complex EM visit Add On G2211 Diagnoses Bradycardia R00.1 Hyperlipidemia, unspecified hyperlipidemia type E78.5 Hyperlipidemia type: unspecified Pulmonary emphysema, unspecified emphysema type J43.9 COPD type: emphysema Emphysema type: unspecified Time Spent (min) 24
--- OUTSIDE RECORDS SUMMARY | 2025-04-19 10:23 | XMS_ITS | Clinical Summary ---
Author Organization [facility] Address [address] [place] [id number] Care Team Providers Care Oracle Software Engineer Name Role Phone Chiquis Grajeda MD Primary Care Provider [phone] Allergies Active Allergy Reactions Criticality Noted Date [...] - PCV) 1969 Mammogram 1990 Colonoscopy 10/21/1995 RSV Vaccine 50 years and older and Patients (1 - Risk 50-74 years 1-dose series) 2000 Zoster (Shingles) Vaccine (1 of 2) 2000 DXA Bone Density (Females,Ages 65 and older) [...] - 99 mg/dL 07/25/2023 8:26 AM EST [facility] Comment:Fasting: <100 mg/dL, Non-Fasting: <200 mg/dL (ADA 2005) Blood Urea Nitrogen (BUN) 12 8 - 21 mg/dL 07/25/2023 8:26 AM EST [facility] Creatinine 0.6 0.4 - 1.1 mg/dL 07/25/2023 8:[address] [facility] eGFR >90 >59 07/25/2023 8:[address] [facility] Comment:CKD-EPI (2020) in mL /min/1.73 sq meters. Sodium 142 136 - 145 mmol/L 07/25/2023 8:[address] [facility] Potassium 4.0 3.4 - 5.3 mmol/L 07/25/2023 8:[address] [facility] Chloride 103 98 - 107 mmol/L 07/25/2023 8:[address] [facility] CO2 25 22 - 33 mmol/L 07/25/2023 8:[address] [facility] Calcium 9.3 8.7 - 10.5 mg/dL 07/25/2023 8:[address] [facility] Alkaline Phosphatase 62 32 - 122 U/L 07/25/2023 8:[address] [facility] Aspartate Aminotrans (AST) 57(H) 10 - 50 U/L 07/25/2023 8:[address] [facility] Alanine Aminotrans (ALT) 36 10 - 50 U/L 07/25/2023 8:[address] [facility] Bilirubin, Total 0.6 0.2 - 1.0 mg/dL 07/25/2023 8:[address] [facility] Protein, Total 5.8(L) 6.3 - 8.3 g/dL 07/25/2023 8:[address] [facility] Albumin 3.4 3.4 - 4.8 g/dL 07/25/2023 8:[address] [facility] BUN/Creatinine Ratio 20 10.0 - 25.0 Ratio 07/25/2023 8:[address] [facility] Globulin 2.4 1.5 - 3.9 g/dL 07/25/2023 8:[address] [facility] Albumin/Globulin Ratio 1.4 1.0 - 3.0 Ratio 07/25/2023 8:[address] [facility] Anion Gap 14 7 - 17 07/25/2023 8:[address] [facility] Blood specimen (specimen) (Plasma/Serum) 07/25/2023 6:49 AM EST 07/25/2023 6:56 AM EST us Mary Mason DO LAB BLOOD ORDERABLES Final Resul t Performing Organization Address [facility] Co de Phone Number [address] [address], [address] [address] * (ABNORMAL) HEMOGLOBIN A1C WITH ESTIMATED AVERAGE GLUCOSE (07/21/2023 1:11 AM EST) Hemoglobin A1C 7.0(H) <5.7 % 07/21/2023 1:42 PM EST [facility] Comment: A1c% Interpretation 5.7 - 6.0 Increase risk of diabetes 6.1 - 6.4 Higher risk of diabetes > or = 6.5 Consistent with diabetes Diabetes Care, 33(Supp 1):S1-S61, 2010 Estimated Average Glucose 154 mg/dL 07/21/2023 1:42 PM [facility] Blood specimen / Unknown 07/21/2023 1:11 AM EST 07/21/2023 1:59 AM EST us Bernie Tony DO LAB BLOOD [place]AB[place] [address], [place] [address] from Last 3 Months or Most Recently Relevant to Health Maintenance Insurance MEDICARE PART A & B MEDICAID OUT OF STATE [facility] [place] MEDICARE PART A & B [facility] [place] OUT OF NETWORK Advance Directives * DNR (Latest Code Status on File) Date Activated Date Inactivated Comments 07/21/2023 5:56 PM DNR/ DNI Question Answer Comments Decision thoroughly discussed with: Patient * Full Code Date Activated Date Inactivated Comments 07/21/2023 6:54 AM 07/21/2023 5:56 PM Care Teams Oracle Software Engineer Relationship Specialty Start Date End Date Chiquis Grajeda MD [address] [place] [address] [place] [address] PCP - General Internal Medicine 07/21/23
--- OUTSIDE RECORDS SUMMARY | 2025-04-19 10:23 | XMS_ITS | Clinical Summary ---
Author Organization [facility] Address [address] [place] [address] Care Team Providers Care Deck Lid Fitter Name Role Phone Chiquis Grajeda MD Primary Care Provider [phone] Social History Tobacco Use Types Packs/Day Years Used Date Smoking Tobacco: Never Assessed Comments Unknown Sex and Gender Information Value Date Recorded Sex Assigned at Not on file Legal Sex Female 8:12 PM EST Gender Identity Not on file Sexual Orientation Not on file Plan of Treatment Health Maintenance Due Date Last Done Comments Breast Cancer Screening 1950 Colorectal Cancer Screening: Colonoscopy 1950 DTaP,Tdap,and Td Vaccines (1 - Tdap) 1969 Pneumococcal Vaccine: 50+ Ye ars (1 of 1 - PCV) 2000 Zoster Vaccines (1 of 2) 2000 Falls Risk Assessment 07/21/2023 Hepatitis C Screening 07/21/2023 Osteoporosis Screening (Bone Density Screening) 07/21/2023 Social Influencers of Health Screening 07/21/2023 Depression Screening 06/27/2024 COVID-19 Vaccine (1 - 2023-2 5 season) 2025 Influenza Vaccine [...] age to complete this topic Care Teams Deck Lid Fitter Relationship Specialty Start Date End Date Chiquis Grajeda MD [address] [place] [address] [address] [facility] [place] [address] PCP - General 12/01/22
--- OUTSIDE RECORDS SUMMARY | 2025-04-19 10:23 | XMS_ITS | Patient Health Record ---
Author [facility] Address [address] [place] [address] Care Team Providers Care Branch Office Manager Name Role Phone Chiquis Grajeda Primary Care Provider Ijeoma Love Unavailable [phone] Allergies Allergen (clinical drug ingredient) Drug/Non Drug Allergy documented on EMR Reaction Allergy Type Onset Date Status Information temporarily unavailable Advil Unknown Drug Allergy Active Information temporarily unavailable Aspirin Unknown Drug Allergy Active Information temporarily unavailable Bactrim Unknown Drug Allergy Active Information temporarily unavailable Ibuprofen Unknown Drug Allergy Active Information temporarily unavailable Keflex Unknown Drug Allergy Active Results Component [...] Problem Status W/U Status Risk Notes Problem Information temporarily unavailable Other hammer toe(s) (acquired), right foot (M20.41) Active confirmed Problem Information temporarily unavailable Other hammer toe(s) (acquired), left foot (M20.42) Active confirmed Problem Information temporarily unavailable Type 2 diabetes mellitus with diabetic polyneuropathy (E11.42) Active confirmed Vital Signs Blood pressure diastolic 68 mm Hg 02/26/2025 Height 5ft 5.5in in 02/26/2025 Blood pressure systolic 120 mm Hg 02/26/2025 Weight 183 lbs 02/26/2025 BMI 29.99 kg/m2 02/26/2025 Encounters Encounter Location Date Provider Diagnosis [facility] [place] [address] [place] [address] 06/19/2024 Ijeoma Joseph Other hammer toe(s) (acquired), right foot M20.41 ; Xerosis of skin L85.3 ; Type 2 diabetes mellitus with diabetic polyneuropathy E11.42 and Other hammer toe(s) (acquired), left foot M20.[address] [address] 08/31/2024 Ijeoma Holleya Other hammer toe(s) (acquired), right foot M20.41 ; Xerosis of skin L85.3 ; Type 2 diabetes mellitus with diabetic polyneuropathy E11.42 and Other hammer toe(s) (acquired), left foot M20.[address] [address] 11/23/2024 Ijeoma Joseph Type 2 diabetes mellitus with diabetic polyneuropathy E11.42 ; Other hammer toe(s) (acquired), right foot M20.41 and Other hammer toe(s) (acquired), left foot M20.[address] [address] 02/26/2025 Ijeoma Joseph Type 2 diabetes mellitus with diabetic polyneuropathy E11.[address] [address] 08/31/2024 Ijeoma Joseph Assessments Encounter Date Diagnosis [...] Details Provider Name:Ijeoma pitts, 05/14/2025 09:30:00 AM, [address] [place] [address], [phone], Insurance Providers Payer Name Payer Address Payer Phone Subscriber Number Group Number Insured Name Patient Relationship to Insured Coverage Start Date Coverage End Date [facility] [employer] Claims [address] [place], [place] [id number] Sofiya Rivas Self - patient is the insured Medical (General) History Medical History History ICD Code Anxiety Arthritis Back,Hip,and Knee pain Cataracts Depression Diabetic Glaucoma Lung disease Macular degeneration Numbness Reflux ( GERD) thyroid Measles Chicken pox Joint implants/screws Transfusions COPD Surgical History Surgery Date(Month/Year) back surgery [id number] facial cosmetic surgery 1977 spine surgery 11/16/2023 eye surgery 12/24/24 Hospitalization History Reason Date(Month/Year) [facility] spine surgery 11/16/2023
== END 2025-04-19 09:59 | disposition home or self-care (01) ==
LOC: HO.HCS 09:28
PROVIDERS: PCP Internal Medicine; Visit Provider Nurse Practitioner Family
DX: R00.1 Bradycardia, unspecified (principal); E78.5 Hyperlipidemia, unspecified; J43.9 Emphysema, unspecified
CPT/HCPCS: 99213; G2211

== ENCOUNTER → 2025-04-19 09:28 | Outpatient (BNVA) | payer OTHER, SELFPAY | PROVIDERS: PCP Internal Medicine; Visit Provider Nurse Practitioner Family | DX: R00.1 Bradycardia, unspecified (principal); E78.5 Hyperlipidemia, unspecified; J43.9 Emphysema, unspecified | CPT/HCPCS: 99212 ==

== ENCOUNTER 2025-04-25 09:30 | Outpatient (AMB) | payer OTHER, SELFPAY ==
--- NOTE | 2025-04-25 09:35 | A.OFFVIS_ITS ---
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 [employer] Present (Arlene) Accompanied by: Self / Same As Patient Allergies aspirin (ASPIRIN) Allergy (Severe, Verified 04/25/25 09:40) GI bleed, stomach upset ibuprofen (IBUPROFEN) Allergy (Severe, Verified 04/25/25 09:40) GI Bleed, stomach upset valsartan (From Diovan) Allergy (Severe, Verified 04/25/25 09:40) hives ziprasidone (From Geodon) Allergy (Severe, Verified 04/25/25 09:40) RASH-PALPITATIONS azithromycin Allergy (Intermediate, Verified 04/25/25 09:40) facial swelling metformin (METFORMIN) Allergy (Intermediate, Verified 04/25/25 09:40) NAUSEA & VOMITING, GI upset cephalexin (From KEFLEX) Allergy (Unknown, Verified 04/25/25 09:40) can't remember lisinopril Allergy (Unknown, Verified 04/25/25 09:40) cough NSAIDS (Non-Steroidal Anti-Inflamma (NSAIDS (NON-STEROIDAL ANTI-INFLAMMA) Adverse Reaction (Severe, Verified 04/25/25 09:40) HX OF GI BLEED tramadol (Ultram) Adverse Reaction (Severe, Verified 04/25/25 09:40) GI upset sulfamethoxazole (From Bactrim) Adverse Reaction (Intermediate, Verified 09:40) Hives tiotropium (From Spiriva with HandiHaler) Adverse Reaction (Intermediate, Verified 04/25/25 09:40) Unknown trimethoprim (From Bactrim) Adverse Reaction (Intermediate, Verified 04/25/25 09:40) Hives doxycycline Adverse Reaction (Mild, Verified 04/25/25 09:40) Stomach Upset HPI Comments Details: Presenting complaining of vulvovaginal irritation [facility] Medical History Respiratory failure with hypoxia Tobacco dependence Hypothyroid Macular degeneration Acute exacerbation of chronic obstructive pulmonary disease (COPD) Dermatitis of vulva Uses wheelchair Wears dentures Supplemental oxygen dependent Slow to wake up after anesthesia Lumbar spinal stenosis Smoker Nicotine dependence, cigarettes, uncomplicated Acute respiratory failure with hypoxia Vulvar ulcer Recurrent major depression-severe Lower extremity pain Sialoadenitis Jaw pain العلي (dyspnea on exertion) Chest pain Osteopenia (~2016) Sinus tachycardia Pulmonary nodule Menopausal state Artificial menopause state Constipation Nocturnal hypoxemia COPD (chronic obstructive pulmonary disease) Spinal stenosis Depression Vitamin D deficiency Multinodular thyroid HLD (hyperlipidemia) T2DM (type 2 diabetes mellitus) (~2008) Surgical History Hx of eye surgery History of cataract surgery S/P thyroid biopsy History of lithotripsy History of cardiac catheterization Hx of colonoscopy Hx of arthroscopy of left knee Hx of spinal fusion Hx of cholecystectomy Family History Father No problems noted. Mother Cancer Diabetes Social History Household Members: None Housing: Apartment Are you a primary certified caregiver to a significant other at home: No Do you presently have visiting nurse or other home services: Yes Alcohol intake: never Comment: aware of trip hazard Patient Tobacco Use Status: Current everyday Tobacco user Smoking Start Date: [birth year]01/1964 Tobacco use type: Cigar Cigarette Packs Per Day: 0.5 Cigarettes Per Day: 8 Years Smoked: 60 e-Cigarette/Vaping Use: Currently Using Second Hand Smoke Exposure: No Advance Directives Date on File: 12/02/22 service: No Current occupational status: retired Sexual orientation: Straight/Heterosexual Cognitive needs: No Hearing needs: No Vision needs: Yes Female Reproductive History Menstrual Age of Menarche: 12 Review of Systems Const All systems reviewed & are unremarkable except as noted in HPI and below Physical Exam General: Yes no CVA tenderness External Female Exam: No normal external appearance (Bilateral labia majora redn ess and posterior fourchette leukoplakia) and normal appearance of the urethra Speculum Exam - Vagina: normal appearance of the vagina, normal palpation, no lesions and no masses Speculum Exam - Cervix: normal appearance of the cervix, normal palpation, no lesions, no masses and nontender Bimanual exam- vagina & uterus: normal bimanual exam, normal palpation, uterine size normal, normal palpation, uterine shape normal, No Cervical tenderness present and non-tender Bimanual Exam- Adnexa, other: normal adnexae Back/Spine/Pelvis Back: no CVA tenderness Office Procedures VIDEO PRODUCTION COORDINATOR Biopsy Before the procedure was started d/w patient the procedure, alternatives ( do nothing, medical rx), & all the risks associated with the procedure ( bleeding , infection, vulvar scarring, painful intercourse, injury to vessels, possible need for transfusion with all its risks) then patient signed the consent. Preop dx: Posterior fourchette leukoplakia Op: Procedure fourchette leukoplakia biopsy Post op: Same Anesthesia: Lidocaine 1% 3cc used Procedure: Using betadine the area was scrubbed and draped in the usual manner. 3 cc of lidocaine was used for anesthesia at the lPosterior fourchette leukopl eagle area ; using punch biopsy and pickup the Posterior fourchette leukoplakia was biopsied. Pressure was used for hemostasis. The patient tolerated the procedure well. Discharge Instructions: The patient was instructed to schedule an appointment in 2 weeks for follow-up and to call if temp>100.4, area of the biopsy redness or pain, nausea/vomiting. This note was generated with a voice recognition program. Some errors may have been overlooked during the review of this note. Sometimes these errors may affect the content or meaning of a given sentence. Procedure code (CPT) selection complete Assessment & Plan Assessment & Plan (1) Vulvar lesion: Comment: post fourchette leukoplakia Code(s): N90.89 - Other specified noninflammatory disorders of vulva and perineum Category: Medical Plan: Discussed with the patient the finding on pelvic exam, posterior fourchette leukoplakia, recommended biopsy, biopsy done see procedure note Orders: Orders AMB VIDEO PRODUCTION COORDINATOR Biopsy Today N90.89 - Other specified noninflammatory disorders of vulva and perineum Coding Level of Care Code Est Pt Level 3 (79222) Procedure Only Diagnoses Vulvar lesion N90.89
--- OUTSIDE RECORDS SUMMARY | 2025-04-25 10:58 | XMS_ITS | Data Portability ---
Author Organization [employer], [facility] Address [address] [place] [address] Care Team Providers Care Sanitation Director Name Role Phone KALA FIERRO Primary Care Provider [phone] HIM CCA OTHER Assessment Encounter Date Assessment Date Assessment LastModified by Organization Details LastModified Time 01/25/2022 01/25/2022 I have reviewed and agree with the assessment and plan as documented by the cemetery vault installer. I provided real-time medical direction for this [...] Assessment and Plan as documented by the Station Master. Patient given the opportunity to ask questions. Advised if develops CP/severe SOB/turning blue/uncontrolle d n/v/d or black/bloody emesis or stool/ AMS/ syncope/ hi fever to call 911- verbalized understanding of instructions [email or web address] Not available 02/23/2023 11:45:02 09/25/2024 09/25/2024 I provided real -time medical direction via phone for this encounter, and was available for additional phone based assistance as needed. I have reviewed and agree with the Assessment and Plan as documented by the Station Master. We discussed the diagnostic uncertainty of home [...] verbalized understanding of instructions to the medic. [email or web address] Not available 09/25/2024 16:00:31 Plan of Treatment Reminders Order Date Submit Date Provider Last Modified By Organization Details Last Modified Time Details Appointments None recorded. Lab urinalysis, dipstick 2024 025 [facility], [address] [place] [address], [id number] 5 07:53:38 rapid SARS CoV 2 Ag, QL IA, respiratory specimen 2022 023 [email or web address] [facility], [address] [place] [address], [id number] 3 11:00:43 rapid flu (A+B) 2022 023 [email or web address] 0 [facility] [address] [place] [address], [id number] 3 11:00:43 BMP, serum or plasma 2022 023 [email or web address] 0 [facility], [address] [place] [address], [id number] 3 13:32:46 Referral None recorded. Procedures None recorded. Surgeries None recorded. Imaging electrocard iogram 2024 025 [facility], [address] [place], [phone] 5 16:39:35 Medication Orders prednisone 20 mg tablet 2024 025 [email or web address] 0 [facility]/Pharmacy #[id number], [address] [place], [address], 5 15:41:55 cyclobenzap rine 5 mg tablet 2024 025 [facility]armacy #[id number], [address] [place], [address], 5 15:49:51 prednisone 20 mg tablet 2024 025 [id number] [address] [place], [address], 5 15:49:51 prednisone 20 mg tablet 2022 023 [id number], [address] [place], [address], 3 11:44:47 prednisone 20 mg tablet 2022 023 [email or web address] 0 [id number] [address] [place], [address], 3 11:44:43 molnupiravi r 200 mg capsule (EUA) 2022 023 [id number] [address] [place], [address], 3 11:44:46 Anbesol (benzocaine ) 10 % oral mucosal liquid 2021 022 [id number] [address] [place], [address], 2 20:01:49 Patient TargetsNo targets recorded. Patient InstructionsNo instructions recorded. Reason for Referral None Reported. Results Created Date Observation Date Name Description Value Unit Range Abnormal Flag Note LastModifiedBy Organization Detail LastModifiedTime 02/24/2002/23/2023 BMP, serum or plasm a BUN 8 Not Available [facility] [address] [place] [address], [id number] 02/23/2023 11:45:10 02/24/20 23 02/23/2023 BMP, serum or plasm a Ca Ionize d calciu m 1.18 Not Available [facility] - Inst [facility] [address] [place] [address], [id number] 02/23/2023 11:45:10 02/24/2002/23/2023 BMP, serum or plasm a CI- 98 Not Available Main - Ins [address], [address] [place] [address] 02/23/2023 11:45:10 02/24/2002/23/2023 BMP, serum or plasm a CRE 0.7 Not Available Main - Ins [address], [address] [place] [address] 02/23/2023 11:45:10 02/24/20 23 02/23/2023 BMP, serum or plasm a GLU 187 after OJ Not Available [facility] ed [address] [place] [address], [address] [place] [address] 02/23/2023 11:45:10 02/24/20 23 02/23/2023 BMP, serum or plasm a K+ 3.8 Not Available Main - Ins [address], [address] [place] [address] 02/23/2023 11:45:10 02/24/20 23 02/23/2023 BMP, serum or plasm a Na+ 143 Not Available Main - Ins [address], [address] [place] [address] 02/23/2023 11:45:10 02/24/20 23 02/23/2023 BMP, serum or plasm a tCO2 25 Not Available [facility] [address], [address] [place] [address] 02/23/2023 11:45:10 02/24/2002/23/2023 rapid flu (A+B) Flu negati ve Not Available [facility] ed [address] [place] [address], [address] [place] [address] 02/23/2023 10:58:20 02/24/2002/23/2023 rapid SARS CoV 2 Ag, QL IA, respi rator y speci men rapid SARS CoV 2 Ag, QL IA, respiratory specimen positi ve Not Available [facility] ed [address] [place] [address], [address] [place] [address] 02/23/2023 10:58:11 09/26/1909/25/2024 elect khanh diogr am No observ ation record ed. [email or web address] [facility] [address] [place] [address], [address] [place] [address] 09/26/2024 07:53:58 Result Notes None recorded. Medical Equipment None Reported. Allergies Allergen ID Allergen Name Allergen Category Reaction Reaction Severity Criticality Documentation Date Start Date Code Code System Note Provider Name and Address Organization Details Recorded Time 24992 Non-stero idal anti-infl ammatory agent (substanc e) medicatio n Not available Not available Not available 09/25/2024 35228 5008 SNOMED Not Available [facility] - production 5 11:35:33 3135 ibuprofen medicatio n Not available Not available Not available 02/23/2023 5640 RxNorm Not Available [facility] - production 5 11:35:33 3136 aspirin medicatio n Not available Not available Not available 02/23/2023 1191 RxNorm Not Available [facility] - production 5 11:35:33 3137 Ultram medicatio n Not available Not available Not available 02/23/2023 83689 6 RxNorm Sally Blancas MD [address] [place] [address],[address], [place], [address], [employer] 3 10:59:42 3138 Geodon medicatio n Not available Not available Not available 02/23/2023 89739 4 RxNorm Sally Blancas MD [address] [place] [address],[address], [place], [address], [employer] 3 10:59:47 Medications Name Sig Start Date [...] 5 90 % 90 % 97.4 [degF] 07241.8 88 g 82 /min 167.64 cm 18 /min 148/82 mm[Hg] Not Available [facility] - production 5 15:38:48 Date Recorded Oxygen saturation Oxygen saturation in Arterial blood by Pulse oximetry Heart rate Body temperature Respiratory rate Systolic And Diastolic Provider Name and Address Organization Details Last Updated DateTime 2 98 % 98 % 76 /min 97.9 [degF] 18 /min 133/87 mm[Hg] Not Available [facility] - production 2 [...] Diagnosis SNOMED-CT Code Diagnosis ICD10 Code Diagnosis IMO Codes Diagnosis Note 3084 Maryam Acevedo MD Main - [facility] [address] [place] [phone] 01/25/2022 19:51:49 03/03/2022 12:49:36 Aphthous ulcer of mouth 396443845 K12.0 [id number] Sally Blancas MD Main - [facility] [address] [place] [phone] 02/23/2023 10:50:46 02/23/2023 23:49:31 Acute exacerbation of chronic obstructive pulmonary disease 324026024 J44.1 Offered patient nebulizer she declines. She does have a nebulizer at home/ duoneb meds at [facility] but will not use because she [...] to symptom onset) and her PCP COVID-19 [id number] U07.1 Reviewed meds with the patient and [...] pat states prednisone helps cough in past [id number] Sally Blancas MD Main - [facility] [address] [place] [address] 09/25/2024 15:38:46 09/25/2024 19:44:24 Chronic back pain 691074923 G89.29 w/ acute exacerbati on Patient has [...] to affected area low back Urinary symptoms 6719143 08 R39.9 bs was 105 this morning [...] sf fluids Chronic ob structive pulmonary disease 24574816 J44.9 Offered patient nebulizer due to rhonchi [...] a lung scan soon Intermitte nt palpitations 692035517 R00.2 Towards the end of the visit [...] Kingsley Member ID Guarantor Name 02/23/2023 1 [facility] - DOS PRIOR TO 2022 - DUAL ELIGIBLE (MEDICARE REPLACEMENT/ADV ANTAGE - HMO) Sofiya Rivas [id number] Sofiya Rivas 09/25/2024 1 [facility] - DOS ON OR AFTER 2022 - DUAL ELIGIBLE - [facility] OPTIONS AND ONE CARE (MEDICARE REPLACEMENT/ADV ANTAGE - HMO) Sofiya Rivas [id number] Sofiya Rivas Notes Date Note Type Note [...] Protocol-Based Disposition: Consider RADHA Rosales Community clinician, MD/HOT DIE PRESS FEEDER triage, PCP, or Urgent Care Visit within 4 Hours ..................... ..................... ..................... ..................... ..................... ..................... ............... CRC Nursing Assessment: Comments: CRC Rn did not need further info to process visit Maryam Acevedo MD [address] [place] [address],[address], [place], [phone], [employer] 01/25/2022 20:01:58 02/23/2023 text/html ROS as noted [...] ..................... ..................... ..................... ..................... ..................... ..................... ............... Station Master Note From Carlos Stuart: Per CRC: Member [...] is positive. Flu a/b negative, following called [facility] with report. P: [facility] Dr. Blancas was called and given report, [...] up with PCP tomorrow. Red flags discussed [facility] clear. [facility] Lab Orders: rapid SARS CoV 2 Ag, QL IA, respiratory specimen: Performed rapid flu (A+B): Performed BMP, serum or plasma: Performed [facility] Medication Orders: prednisone 20 mg tablet: Administered ..................... ..................... ..................... ..................... ..................... ..................... ............... Disposition: Fulfilled Sally Blancas MD [address] [place] [address],[address], [place], [address], [employer] 02/23/2023 13:35:59 09/25/2024 text/html ROS as noted in the [facility] CRC Nurse Triage Notes (Kelly Wall): Reason [...] Mellitus Type 2, Hyperlipidemia PMH Reviewed at 09/25/2024: Allergies Reviewed at 09/25/2024:35 Pain Assessment: Level 8 out of 10 Comments: Boom Conveyor Operator verified the name//address and phone number. [...] s/s and seek emergency treatment if need Station Master Organization Information for Roxanna Nichols Business Legal Name: [employer]. Address: [address] [place] [address], Hall Clerk: Khadar WANG No.: [id number] Station Master POC Test Results from Roxanna Nichols Urine [...] ..................... ..................... ..................... ..................... ..................... ..................... ............... Station Master Note From Roxanna Nichols: ELDER makes pt [...] touched it , as well as heat. [facility] obtains vital signs and pt is assessed. [...] clear of any redness, swelling, or bruising. [facility] contacts [facility] and discusses the above. [facility] orders a UA as well as 40mg prednisone PO for back pain and inflammation. Pt is able to provide a urine sample for UA. UA is negative for infection, however, urine glucose is high. After physical exam and UA, pt tells [facility] she has been having profuse night sweats, Like I'm going through menopause again! and she has been coughing up, [id number] phlegm and having some heart palpitations. [facility] orders a 12-lead EKG. EKG is obtained and found to be unremarkable. [facility] informs pt that a CXR is recommended. [facility] prescribes prednisone and cyclobenzaprine for pt's back pain and stresses the importance of monitoring her glucose levels, using her insulin, and watching her diet. [facility] says pt can increase the cyclobenzaprine dose from 5mg to 10mg, if needed. She also tells pt 3G Tylenol per day is the max dose she should take for her weight. Pt is advised to use ice and heat on her back as well. [facility] tells pt to contact her PCP tomorrow to touch base about the pain and her blood sugar. [facility] also tells pt she needs to go to the ED if she develops cp, severe sob, high fever w/ cough, uncontrollable n/v/d, black/bloody stools or urine, focal weakness, or syncope. [facility] administers 40mg prednisone (2 tablets) PO to the pt. Pt states her verbal understanding of [facility] instructions and thanks [facility] for coming. [facility] is clear. Report completed by GWYN Nichols [id number]. [facility] Lab Orders: urinalysis, dipstick: Performed [facility] Medication Orders: prednisone 20 mg tablet: Administered ..................... ..................... ..................... ..................... ..................... ..................... ............... [facility] Consulted: Sally Blancas ..................... ..................... ..................... ..................... ..................... ..................... ............... Disposition: Fulfilled Sally Blancas MD [address] [facility],[address], [place], [address], [employer] 09/25/2024 17:07:04 OBGyn Episode No OBEpisode recorded.
--- OUTSIDE RECORDS SUMMARY | 2025-04-25 10:58 | XMS_ITS | Patient Health Record ---
Author Organization [employer] [facility] [employer] [facility] Address [address] [place] [address] Care Team Providers Care Ppap Coordinator Name Role Phone Chiquis Grajeda Primary Care Provider Ijeoma Love [phone] Allergies Allergen (clinical drug ingredient) Drug/Non Drug [...] Problem Acquired hammer toe of right foot ([id number] ) Other hammer toe(s) (acquired), right foot (M20.41) Active confirmed Problem Acquired hammer toe of left foot (1307842731040065 ) Other hammer toe(s) (acquired), left foot (M20.42) Active confirmed Problem Polyneuropathy due to type 2 diabetes mellitus (923184119) Type 2 diabetes mellitus with diabetic polyneuropathy (E11.42) Active confirmed Vital Signs Blood pressure diastolic 68 mm Hg 02/26/2025 Height 5ft 5.5in in 02/26/2025 Blood pressure systolic 120 mm Hg 02/26/2025 Weight 183 lbs 02/26/2025 BMI 29.99 kg/m2 02/26/2025 Encounters Encounter Location Date Provider Diagnosis [address] [address] 06/19/2024 Ijeoma Joseph Other hammer toe(s) (acquired), right foot M20.41 ; Xerosis of skin L85.3 ; Type 2 diabetes mellitus with diabetic polyneuropathy E11.42 and Other hammer toe(s) (acquired), left foot M20.[address] [address] 08/31/2024 Ijeoma Joseph Other hammer toe(s) (acquired), right foot M20.41 ; Xerosis of skin L85.3 ; Type 2 diabetes mellitus with diabetic polyneuropathy E11.42 and Other hammer toe(s) (acquired), left foot M20.[address] [address] 11/23/2024 Ijeoma Joseph Type 2 diabetes mellitus with diabetic polyneuropathy E11.42 ; Other hammer toe(s) (acquired), right foot M20.41 and Other hammer toe(s) (acquired), left foot M20.[address] [address] 02/26/2025 Ijeoma Joseph Type 2 diabetes mellitus with diabetic polyneuropathy E11.[address] [address] 08/31/2024 Ijeoma Joseph Assessments Encounter Date Diagnosis [...] Details Provider Name:Ijeoma pitts, 05/14/2025 09:30:00 AM, [address] [place] [address], [phone], Insurance Providers Payer Name Payer Address Payer Phone Subscriber Number Group Number Insured Name Patient Relationship to Insured Coverage Start Date Coverage End Date [facility] [place] [address] [id number] Sofiya Rivas Self - patient is the insured Medical (General) History Medical History History ICD Code Anxiety Arthritis Back,Hip,and Knee pain Cataracts Depression Diabetic Glaucoma Lung disease Macular degeneration Numbness Reflux ( GERD) thyroid Measles Chicken pox Joint implants/screws Transfusions COPD Surgical History Surgery Date(Month/Year) back surgery 9941-1899 facial cosmetic surgery 1977 spine surgery 11/16/2023 eye surgery 12/24/24 Hospitalization History Reason Date(Month/Year) [facility] spine surgery 11/16/2023
--- OUTSIDE RECORDS SUMMARY | 2025-04-25 10:58 | XMS_ITS | Clinical Summary ---
Author Organization Formerly [facility] Address [address] [place] [address] Care Team Providers Care Masticator Name Role Phone Chiquis Grajeda MD Primary Care Provider [phone] Allergies Active Allergy Reactions Criticality Noted Date [...] - 99 mg/dL 07/25/2023 8:26 AM EST [facility] Comment:Fasting: <100 mg/dL, Non-Fasting: <200 mg/dL (ADA 2005) Blood Urea Nitrogen (BUN) 12 8 - 21 mg/dL 07/25/2023 8:26 AM EST [facility] Creatinine 0.6 0.4 - 1.1 mg/dL 07/25/2023 8:26 AM [facility] eGFR >90 >59 07/25/2023 8:26 AM [facility] Comment:CKD-EPI (2020) in mL /min/1.73 sq meters. Sodium 142 136 - 145 mmol/L 07/25/2023 8:26 AM [facility] Potassium 4.0 3.4 - 5.3 mmol/L 07/25/2023 8:26 AM [facility] Chloride 103 98 - 107 mmol/L 07/25/2023 8:26 AM [facility] CO2 25 22 - 33 mmol/L 07/25/2023 8:26 AM [facility] Calcium 9.3 8.7 - 10.5 mg/dL 07/25/2023 8:26 AM [facility] Alkaline Phosphatase 62 32 - 122 U/L 07/25/2023 8:26 AM [facility] Aspartate Aminotrans (AST) 57(H) 10 - 50 U/L 07/25/2023 8:26 AM [facility] Alanine Aminotrans (ALT) 36 10 - 50 U/L 07/25/2023 8:26 AM [facility] Bilirubin, Total 0.6 0.2 - 1.0 mg/dL 07/25/2023 8:26 AM [facility] Protein, Total 5.8(L) 6.3 - 8.3 g/dL 07/25/2023 8:26 AM [facility] Albumin 3.4 3.4 - 4.8 g/dL 07/25/2023 8:26 AM [facility] BUN/Creatinine Ratio 20 10.0 - 25.0 Ratio 07/25/2023 8:26 AM [facility] Globulin 2.4 1.5 - 3.9 g/dL 07/25/2023 8:26 AM [facility] Albumin/Globulin Ratio 1.4 1.0 - 3.0 Ratio 07/25/2023 8:26 AM [facility] Anion Gap 14 7 - 17 07/25/2023 8:26 AM [facility] Blood specimen (specimen) (Plasma/Serum) 07/25/2023 6:49 AM EST 07/25/2023 6:56 AM EST us Mary Mason DO LAB BLOOD ORDERABLES Final Resul t Performing Organization Address [facility] Co de Phone Number [address] [address], [address] [address] * (ABNORMAL) HEMOGLOBIN A1C WITH ESTIMATED AVERAGE GLUCOSE (07/21/2023 1:11 AM EST) Hemoglobin A1C 7.0(H) <5.7 % 07/21/2023 1:42 PM EST [facility] Comment: A1c% Interpretation 5.7 - 6.0 Increase risk of diabetes 6.1 - 6.4 Higher risk of diabetes > or = 6.5 Consistent with diabetes Diabetes Care, 33(Supp 1):S1-S61, 2010 Estimated Average Glucose 154 mg/dL 07/21/2023 1:42 PM [facility] Blood specimen / Unknown 07/21/2023 1:11 AM EST 07/21/2023 1:59 AM EST us Bernie Tony DO LAB BLOOD [place] [address], [place] [address] from Last 3 Months or Most Recently Relevant to Health Maintenance Insurance MEDICARE PART A & B MEDICAID OUT OF STATE [facility] MEDICARE PART A & B [facility] MEDICARE OUT OF NETWORK Advance Directives * DNR (Latest Code Status on File) Date Activated Date Inactivated Comments 07/21/2023 5:56 PM DNR/ DNI Question Answer Comments Decision thoroughly discussed with: Patient * Full Code Date Activated Date Inactivated Comments 07/21/2023 6:54 AM 07/21/2023 5:56 PM Care Teams Masticator Relationship Specialty Start Date End Date Chiquis Grajeda MD [address] [place] [address] [place] [address] PCP - General Internal Medicine 07/21/23
--- OUTSIDE RECORDS SUMMARY | 2025-04-25 10:59 | XMS_ITS | Clinical Summary ---
Author Organization [facility] Address [address] [place] [address] Care Team Providers Care Ceo Ziff Davis Name Role Phone Chiquis Grajeda MD Primary Care Provider [phone] Social History Tobacco Use Types Packs/Day Years [...] age to complete this topic Care Teams Ceo Ziff Davis Relationship Specialty Start Date End Date Chiquis Grajeda MD [address] [place] [address] Dr [address] [facility] [place] [id number] PCP - General 12/01/22
--- OUTSIDE RECORDS SUMMARY | 2025-04-25 11:00 | XMS_ITS | Data Portability ---
Author Organization [place] [facility] Address [address] [place] [id number] Care Team Providers Care Ton Container Filler Name Role Phone KIT STAUFFER Primary Care Provider Assessment Encounter Date Assessment Date Assessment LastModified by Organization Details LastModified Time 09/01/2021 09/01/2021 Overview/History : 70 YO F new to DH and to provider She is c/o of [...] I have accessed patient records on the [employer]. This information was pertinent in my medical decision making today. katt Not available 09/01/2021 10:13:04 Plan of Treatment Reminders Order Date Submit Date Provider Last Modified By Organization Details Last Modified Time Details Appointments None recorded. Lab None recorded. Referral None recorded. Procedures None recorded. Surgeries None recorded. Imaging XR, lumbosacral spine, 2 or 3 view - hx of back surgeries. w/ some lower back pain. r/o frx and eval hardware. 2021 022 [employer] [facility] ([facility]), [address] [place] [address], [address], 15:52:40 Medication Orders cyclobenzap rine 5 mg tablet 2021 022 [id number], [address] [facility] , [place], [address], 10:12:39 Patient TargetsNo targets recorded. Patient InstructionsNo [...] ONICAL LY SIGNED BY BK BECKHAM M.D. 3/8/20 22 3:45:5 0 PM EST. LUMBAR SPINE [...] M.D. 09/02/19 3:45:5 0 PM EST. [email or web address] [facility] [address] [facility] [address], [place], [address], 09/02/2021 18:24:55 Result Notes None recorded. Procedures Surgical History Date Name Laterality Status Provider Name and Address Organization Details Recorded Time Cholecystectomy completed JAQUAN Mayer [address] [place], [address], [place] [facility] 09/01/2021 09:06:46 Appendectomy completed JAQUAN Montgomery [address] [place], [address], [place] [facility] 09/01/2021 09:06:50 Tonsillectomy completed JAQUAN Montgomery [address], [place], [address], [place] [facility] 09/01/2021 09:06:55 Back Surgery completed JAQUAN Montgomery [address] [place], [address], [place] [facility] 09/01/2021 09:07:05 Imaging Results None recorded. Procedure Notes None recorded. Medical Equipment None Reported. Allergies Allergen ID Allergen Name Allergen Category Reaction Reaction Severity Criticality Documentation Date Start Date Code Code System Note Provider Name and Address Organization Details Recorded Time 053072 ibuprofen medicatio n Not available Not available Not available 09/01/2021 5640 RxNorm JAQUAN Mayer [address] [place], [address], [place] [facility] 08:57:33 880463 aspirin medicatio n Not available Not available Not available 09/01/2021 1191 RxNorm Jonn Tang, PA [address], [place], [address], [place] [facility] 2 08:57:42 893247 Ultram medicatio n Not available Not available Not available 09/01/2021 10922 6 RxNorm Jonn Tang, PA [address], [place], [address], [place] [facility] 2 08:57:49 402631 Geodon medicatio n Not available Not available Not available 09/01/2021 18318 4 RxNorm Jonn Tang, PA [address], [place] [facility] [place], [address], [place] [facility] 2 [...] Heart rate Respiratory rate Body temperature Systolic And Diastolic Provider Name and Address Organization Details Last Updated DateTime 2 95 % 95 % 101 /min 20 /min 97.8 [degF] 152/76 mm[Hg] Not Available [facility] 2 09:00:51 Social History None recorded. Functional Status Question Answer Note LastModified by Organizat ion Details LastModified Time Do you use any illicit or recreational drugs? No Information not available 09/01/2021 Do you or have you ever used any other forms of tobacco or nicotine? No Information not available 09/01/2021 What is your level of alcohol consumption? None Information not available 09/01/2021 Mental Status None recorded. Family History Relationship Description Onset Age of this Age Resolved Age Notes LastModified by Organization Details LastModified Time Brother Heart disease crumplik Not available 2021 09:05:34 Mother Carcinoma of lung crumplik Not available 2021 09:06:13 Sister Carcinoma of lung crumplik Not available 2021 09:06:17 Medical History Condition Response Coronary Artery Disease N COPD N Depression N Hypothyroidism Y A-fib N Cancer N Stroke N High Cholesterol Y Rheumatoid Arthritis N Kidney Disease N Parkinson's Disease N Diabetes Y CHF N Dementia N Asthma N Pulmonary Embolism N Hypertension N Osteoporosis N Gynecological HistoryNo gynecological history recorded. Obstetrics History GPAL:G 0 P 0 0 0 0 Past Encounters Encounter ID Performer Location Encounter Start Date Encounter Closed Date Diagnosis/Indication Diagnosis SNOMED-CT Code Diagnosis ICD10 Code Diagnosis IMO Codes Diagnosis Note [id number] JAQUAN Gil FOR[facility] NAMED [facility] [address] [place] [address] 09/01/2021 08:19:31 09/02/2021 11:03:01 Low back pain 877425122 M54.50 Spasm of back muscles 20 2501865 M62.830 Health Concerns Section Related Observation LastModified by Organization Detai ls LastModified Time None Recorded Concern Status LastModified by Organization Details LastModified Time None Recorded Advance Directives Directive None Recorded Payers Insurance Date Sequence Insurance Name Policy Number Policy Kingsley Covered Member ID Kingsley Member ID Guarantor Name 08/31/2021 1 *SELF PAY* Sofiya Rivas [id number] Sofiya Rivas 09/09/2021 1 [facility] PRIOR TO 2022 - DUAL ELIGIBLE (MEDICARE REPLACEMENT/ADV ANTAGE - HMO) Sofiya Rivas [id number] Sofiya Rivas Notes Date Note Type Note Provider Name and Address Organization Details Recorded Time 09/01/2021 text/html 70 YO F new to and to providerShe is c/o of back [...] reports no other assoc sx's JAQUAN Montgomery [address] [place], [address], [place] [facility] 09/01/2021 10:13:13 OBGyn Episode No OBEpisode recorded.
== END 2025-04-25 10:03 | disposition home or self-care (01) ==
LOC: HO.HWS 09:30
PROVIDERS: PCP Internal Medicine; Visit Provider Obstetrics & Gynecology
DX: N90.89 Other specified noninflammatory disorders of vulva and perineum (principal)
CPT/HCPCS: 11104; 99213

== ENCOUNTER 2025-04-25 09:30 | Outpatient (REF) | payer OTHER, SELFPAY | END 2025-04-25 09:31 | disposition home or self-care (01) | LOC: HO.LNP 09:30 | PROVIDERS: PCP Internal Medicine; Visit Provider Obstetrics & Gynecology | DX: N90.89 Other specified noninflammatory disorders of vulva and perineum (principal) | CPT/HCPCS: 11104; 88305; 88312; 99212 ==

== ENCOUNTER 2025-04-29 09:44 | Outpatient (REF) | payer OTHER, SELFPAY ==
--- NOTE | ~2025-04-29 | US_ITS ---
EXAMINATION: US THYROID CLINICAL INFORMATION: E 06.3. Autoimmune thyroiditis. COMPARISON: December 15, 2023. TECHNIQUE: Linear transducer grayscale and color Doppler examination with attention to the region of the thyroid. FINDINGS: SIZE: Measurements of the thyroid lobes and nodules are given in sagittal, anteroposterior and transverse dimensions respectively. Right Thyroid Lobe: 6.2 x 2.6 x 2.3 cm, volume 17.3 mL. Previous: 6.2 x 3.0 x 2.6 cm, volume: 25.3 cc. Parenchyma: The gland echotexture is heterogeneous. Thyroid vascularity is normal. Left Thyroid Lobe: 3.8 x 1.6 x 1.1 cm, volume 3.2 mL. Previous: 4.2 x 1.7 x 1.4 cm, volume: 5.2 cc. Parenchyma: The gland echotexture is heterogeneous. Thyroid vascularity is normal. Isthmus: 0.7 cm in maximum AP dimension. Previous: 0.4 Estimated total number of nodules greater than or equal to 1 cm: 1. Host/Hostess Ground nodules are described as follows: 1. Location: [Upper and Midportion right lobe. Size: 3.3 x 2.2 x 2.5 cm, volume 9.6 mL. Previous: 2.9 x 2.2 x 2.2 cm, volume: 7.3 cc. Nodule characteristics: Composition: Solid (2). Echogenicity: Isoechoic (1). Shape: Not taller than wide (0). Margins: Ill-defined (0). Echogenic Foci: Punctate echogenic foci (3). ACR TI-RADS total points: 6 ACR TI-RADS category: 4 2. Location: Lower pole, right lobe. Size: 0.6 x 0.5 x 0.7 cm, volume 0.1 mL. Previous: 0.5 x 0.5 x 0.6 cm, volume: 0.1 cc. Nodule characteristics: Composition: Solid (2). Echogenicity: Very hypoechoic (3). Shape: Not taller than wide (0). Margins: Smooth (0). Echogenic Foci: Punctate echogenic foci (3). ACR TI-RADS total points: 8 ACR TI-RADS category: 5 3. Location: [Upper, left lobe. Size: 0.6 x 0.2 x 0.4 cm, volume 0.03 mL. Previous: 0.6 x 0.2 x 0.3 cm, volume: 0.02 cc. Nodule characteristics: Composition: Solid (2). Echogenicity: Undetermined (1) Shape: Not taller than wide (0). Margins: Smooth (0). Echogenic Foci: None (0). ACR TI-RADS total points: 3 ACR TI-RADS category: 3 NODES: No lymphadenopathy is seen in the tissue surrounding the thyroid gland. US/US thyroid IMPRESSION: ACR TI-RADS 4, 5, and 3. ACR TI-RADS RECOMMENDATION REFERENCE: Ultrasound-guided fine-needle aspiration, followup ultrasound, no further follow up. * TR1 (0 point) and TR2 (2 points): No FNA or follow up. * TR3 (3 points): FNA if more than or equal to 2.5 cm in maximum dimension, followup ultrasound in 1, 3 and 5 years if 1.5 to 2.4 cm in maximum dimension. * TR4 (4-6 points): FNA if more than or equal to 1.5 cm in maximum dimension, followup ultrasound in 1, 2, 3 and 5 years if 1 to 1.4 cm in maximum dimension. * TR5 (more than or equal to 7 points): FNA if more than or equal to 1 cm in maximum dimension, followup ultrasound every year for 5 years if 0.5 to 0.9 cm in maximum dimension. * TR3, TR4 or TR5 nodules that are below the size threshold for followup receive no follow up. Electronically signed by: Bobby Wood MD 04/29/2025 10:51 AM [facility]
--- OUTSIDE RECORDS SUMMARY | 2025-04-29 11:12 | XMS_ITS | Patient Health Record ---
[facility] Address [address] [place] [address] Care Team Providers Care Sewing Machine Operator Plastic Zipper Name Role Phone Chiquis Grajeda Primary Care Provider Ijeoma Love [phone] Allergies Allergen (clinical drug ingredient) Drug/Non Drug [...] Problem Acquired hammer toe of right foot (5647851819959090 ) Other hammer toe(s) (acquired), right foot (M20.41) Active confirmed Problem Acquired hammer toe of left foot (2703454905431202 ) Other hammer toe(s) (acquired), left foot (M20.42) Active confirmed Problem Polyneuropathy due to type 2 diabetes mellitus (284290346) Type 2 diabetes mellitus with diabetic polyneuropathy (E11.42) Active confirmed Vital Signs Blood pressure diastolic 68 mm Hg 02/26/2025 Height 5ft 5.5in in 02/26/2025 Blood pressure systolic 120 mm Hg 02/26/2025 Weight 183 lbs 02/26/2025 BMI 29.99 kg/m2 02/26/2025 Encounters Encounter Location Date Provider Diagnosis [address] [address] 06/19/2024 Ijeoam Joseph Other hammer toe(s) (acquired), right foot M20.41 ; Xerosis of skin L85.3 ; Type 2 diabetes mellitus with diabetic polyneuropathy E11.42 and Other hammer toe(s) (acquired), left foot M20.[address] [address] 08/31/2024 Ijeoma Joseph Other hammer toe(s) (acquired), right foot M20.41 ; Xerosis of skin L85.3 ; Type 2 diabetes mellitus with diabetic polyneuropathy E11.42 and Other hammer toe(s) (acquired), left foot M20.[address] [address] 11/23/2024 Ijeoma Joseph Type 2 diabetes mellitus with diabetic polyneuropathy E11.42 ; Other hammer toe(s) (acquired), right foot M20.41 and Other hammer toe(s) (acquired), left foot M20.[address] [address] 02/26/2025 Ijeoma Joseph Type 2 diabetes mellitus with diabetic polyneuropathy E11.[address] [address] 08/31/2024 Ijeoma Joseph Assessments Encounter Date Diagnosis [...] Details Provider Name:Ijeoma pitts, 05/14/2025 09:30:00 AM, [address] [place] [address], [phone], Insurance Providers Payer Name Payer Address Payer Phone Subscriber Number Group Number Insured Name Patient Relationship to Insured Coverage Start Date Coverage End Date [facility] [place] [address] [id number] Sofiya Rivas Self - patient is the insured Medical (General) History Medical History History ICD Code Anxiety Arthritis Back,Hip,and Knee pain Cataracts Depression Diabetic Glaucoma Lung disease Macular degeneration Numbness Reflux ( GERD) thyroid Measles Chicken pox Joint implants/screws Transfusions COPD Surgical History Surgery Date(Month/Year) back surgery 2967-4235 facial cosmetic surgery 1977 spine surgery 11/16/2023 eye surgery 12/24/24 Hospitalization History Reason Date(Month/Year) [facility] spine surgery 11/16/2023
--- OUTSIDE RECORDS SUMMARY | 2025-04-29 11:12 | XMS_ITS | Data Portability ---
Author Organization [facility], [email or web address] Address [address] [place] [address] Care Team Providers Care Team Supervisor Name Role Phone KALA FIERRO Primary Care Provider HIM CCA OTHER Assessment Encounter Date Assessment Date Assessment LastModified by Organization Details LastModified Time 01/25/2022 01/25/2022 I have reviewed and agree with the assessment and plan as documented by the heel dipper. I provided real-time medical direction for this [...] Assessment and Plan as documented by the Grocery Clerk Checking. Patient given the opportunity to ask questions. Advised if develops CP/severe SOB/turning blue/uncontrolle d n/v/d or black/bloody emesis or stool/ AMS/ syncope/ hi fever to call 911- verbalized understanding of instructions [email or web address] Not available 02/23/2023 11:45:02 09/25/2024 09/25/2024 I provided real -time medical direction via phone for this encounter, and was available for additional phone based assistance as needed. I have reviewed and agree with the Assessment and Plan as documented by the Grocery Clerk Checking. We discussed the diagnostic uncertainty of home [...] verbalized understanding of instructions to the medic. [email or web address] Not available 09/25/2024 16:00:31 Plan of Treatment Reminders Order Date Submit Date Provider Last Modified By Organization Details Last Modified Time Details Appointments None recorded. Lab urinalysis, dipstick 2024 025 [facility], [address] [place] [address], [address] 5 07:53:38 rapid SARS CoV 2 Ag, QL IA, respiratory specimen 2022 023 [email or web address] 0 [facility], [address] [place] [address], [address] 3 11:00:43 rapid flu (A+B) 2022 023 [email or web address] 0 [facility], [address] [place] [address], [address] 3 11:00:43 BMP, serum or plasma 2022 023 [email or web address] 0 [facility], [address] [place] [address], [address] 3 13:32:46 Referral None recorded. Procedures None recorded. Surgeries None recorded. Imaging electrocard iogram 2024 025 [facility], [address] [place], [address] 5 16:39:35 Medication Orders prednisone 20 mg tablet 2024 025 [email or web address] 0 [facility] #[id number], [address] [place], [address], 5 15:41:55 cyclobenzap rine [address] [facility] [place]Pharmacy #[id number], [address] [place], [address], 5 15:49:51 prednisone 20 mg tablet 2024 025 [id number] [address] [place], [address], 5 15:49:51 prednisone 20 mg tablet 2022 023 [id number] [address] [place], [address], 3 11:44:47 prednisone 20 mg tablet 2022 023 [email or web address] 0 [id number] [address] [place], [address], 3 11:44:43 molnupiravi r 200 mg capsule (EUA) 2022 023 [id number] [address] [place], [address], 3 11:44:46 Anbesol (benzocaine ) 10 % oral mucosal liquid 2021 022 [id number] [address] [place], [address], 2 20:01:49 Patient TargetsNo targets recorded. Patient InstructionsNo instructions recorded. Reason for Referral None Reported. Results Created Date Observation Date Name Description Value Unit Range Abnormal Flag Note LastModifiedBy Organization Detail LastModifiedTime 02/24/2002/23/2023 BMP, serum or plasm a BUN 8 Not Available [facility] [address] [place] [address], [address] 02/23/2023 11:45:10 02/24/20 23 02/23/2023 BMP, serum or plasm a Ca Ionize d calciu m 1.18 Not Available Main - Inst ed [address] [place] [address], [address] 02/23/2023 11:45:10 02/24/2002/23/2023 BMP, serum or plasm a CI- 98 Not Available Main - Ins [address], [address] [place] [address] 02/23/2023 11:45:10 02/24/2002/23/2023 BMP, serum or plasm a CRE 0.7 Not Available Main - [facility] [address], [address] [place] [address] 02/23/2023 11:45:10 02/24/20 23 02/23/2023 BMP, serum or plasm a GLU 187 after OJ Not Available [facility] ed [address] [place] [address], [address] [place] [address] 02/23/2023 11:45:10 02/24/20 23 02/23/2023 BMP, serum or plasm a K+ 3.8 Not Available Main - [facility] [address], [address] [place] [address] 02/23/2023 11:45:10 02/24/20 23 02/23/2023 BMP, serum or plasm a Na+ 143 Not Available Main - Ins [address], [address] [place] [address] 02/23/2023 11:45:10 02/24/20 23 02/23/2023 BMP, serum or plasm a tCO2 25 Not Available [facility] [address], [address] [place] [address] 02/23/2023 11:45:10 02/24/2002/23/2023 rapid flu (A+B) Flu negati ve Not Available [facility] ed [address] [place] [address], [address] [place] [address] 02/23/2023 10:58:20 02/24/2002/23/2023 rapid SARS CoV 2 Ag, QL IA, respi rator y speci men rapid SARS CoV 2 Ag, QL IA, respiratory specimen positi ve Not Available [facility] ed [address] [place] [address], [address] [place] [address] 02/23/2023 10:58:11 09/26/1909/25/2024 elect khanh diogr am No observ ation record ed. [email or web address] [facility] [address] [place] [address], [address] [place] [address] 09/26/2024 07:53:58 Result Notes None recorded. Medical Equipment None Reported. Allergies Allergen ID Allergen Name Allergen Category Reaction Reaction Severity Criticality Documentation Date Start Date Code Code System Note Provider Name and Address Organization Details Recorded Time 64054 Non-stero idal anti-infl ammatory agent (substanc e) medicatio n Not available Not available Not available 09/25/2024 55045 5008 SNOMED Not Available [facility] - production 5 11:35:33 3135 ibuprofen medicatio n Not available Not available Not available 02/23/2023 5640 RxNorm Not Available [facility] - production 5 11:35:33 3136 aspirin medicatio n Not available Not available Not available 02/23/2023 1191 RxNorm Not Available [facility] - production 5 11:35:33 3137 Ultram medicatio n Not available Not available Not available 02/23/2023 51793 6 RxNorm Sally Blancas MD [address] [place] [address],[address], [place], [address], [facility] 3 10:59:42 3138 Geodon medicatio n Not available Not available Not available 02/23/2023 65841 4 RxNorm Sally Blancas MD [address] [place] [address],[address], [place], [address], [facility] 3 10:59:47 Medications Name Sig Start Date [...] 5 90 % 90 % 97.4 [degF] 72132.8 88 g 82 /min 167.64 cm 18 [...] 3084 Maryam Acevedo MD Main - [facility]ED [address] [place] [address] 01/25/2022 19:51:49 03/03/2022 12:49:36 Aphthous ulcer of mouth 982171284 K12.0 95457 Sally Blancas MD Main - [facility] [address] [place] [address] 02/23/2023 10:50:46 02/23/2023 23:49:31 Acute exacerbation of chronic obstructive pulmonary disease 208866438 J44.1 Offered patient nebulizer she declines. She does have a nebulizer at home/ [facility] meds at [facility] but will not use because [...] to symptom onset) and her PCP COVID-19 800837001 U07.1 Reviewed meds with the patient and [...] pat states prednisone helps cough in past [address] Sally Blancas MD Main - [facility] [address] [place] [address] 09/25/2024 15:38:46 09/25/2024 19:44:24 Chronic back pain 364607483 G89.29 w/ acute exacerbati on Patient has [...] to affected area low back Urinary symptoms 7248864 08 R39.9 bs was 105 this morning [...] sf fluids Chronic ob structive pulmonary disease 65282114 J44.9 Offered patient nebulizer due to rhonchi [...] a lung scan soon Intermitte nt palpitations 881265589 R00.2 Towards the end of the visit [...] Kingsley Member ID Guarantor Name 02/23/2023 1 [facility] - DOS PRIOR TO 2022 - DUAL ELIGIBLE (MEDICARE REPLACEMENT/ADV ANTAGE - HMO) Sofiya Rivas [id number] Sofiya Rivas 09/25/2024 1 [facility] - DOS ON OR AFTER 2022 - DUAL ELIGIBLE - LONG TERM OPTIONS AND ONE CARE (MEDICARE REPLACEMENT/ADV ANTAGE - HMO) Sofiya Rivas [id number] Sofiya Rivas Notes Date Note Type Note [...] Protocol-Based Disposition: Consider RADHA Rosales Community clinician, MD/TEACHER PRIVATE triage, PCP, or Urgent Care Visit within 4 Hours ..................... ..................... ..................... ..................... ..................... ..................... ............... CRC Nursing Assessment: Comments: CRC Rn did not need further info to process visit Maryam Acevedo MD [address] [place] [address],[address], [place], [address], [facility] 01/25/2022 20:01:58 02/23/2023 text/html ROS as noted [...] ..................... ..................... ..................... ..................... ..................... ..................... ............... Grocery Clerk Checking Note From Carlos Stuart: Per CRC: Member [...] is positive. Flu a/b negative, following called [facility] with report. P: [facility] Dr. Blancas was called and given report, [...] up with PCP tomorrow. Red flags discussed [facility] clear. [facility] Lab Orders: rapid SARS CoV 2 Ag, QL IA, respiratory specimen: Performed rapid flu (A+B): Performed BMP, serum or plasma: Performed [facility] Medication Orders: prednisone 20 mg tablet: Administered ..................... ..................... ..................... ..................... ..................... ..................... ............... Disposition: Fulfilled Sally Blancas MD [address] [place] [address],[address], [place], [address], [facility] 02/23/2023 13:35:59 09/25/2024 text/html ROS as noted in the [facility] CRC Nurse Triage Notes (Kelly Wall): [...] Assessment: Level 8 out of 10 Comments: Security Vehicle Patrol Officer verified the name//address and phone number. Pt [...] s/s and seek emergency treatment if need Grocery Clerk Checking Organization Information for Roxanna Nichols Business Legal Name: [employer]ighborhood[employer]. Address: [address] [place] [address], Hot Stick Man: Khadar WANG No.: [id number] Grocery Clerk Checking POC Test Results from Roxanna Nichols Urine [...] ..................... ..................... ..................... ..................... ..................... ..................... ............... Grocery Clerk Checking Note From Roxanna Nichols: ELDER makes pt [...] touched it , as well as heat. [facility] obtains vital signs and pt is [...] clear of any redness, swelling, or bruising. [facility] contacts [facility] and discusses the above. [facility] orders a UA as well as 40mg prednisone PO for back pain and inflammation. Pt is able to provide a urine sample for UA. UA is negative for infection, however, urine glucose is high. After physical exam and UA, pt tells [facility] she has been having profuse night sweats, Like I'm going through menopause again! and she has been coughing up, ywgjldl-[id number]-soh phlegm and having some heart palpitations. [facility] orders a 12-lead EKG. EKG is obtained and found to be unremarkable. [facility] informs pt that a CXR is recommended. [facility] prescribes prednisone and cyclobenzaprine for pt's back pain and stresses the importance of monitoring her glucose levels, using her insulin, and watching her diet. [facility] says pt can increase the cyclobenzaprine dose from 5mg to 10mg, if needed. She also tells pt 3G Tylenol per day is the max dose she should take for her weight. Pt is advised to use ice and heat on her back as well. [facility] tells pt to contact her PCP tomorrow to touch base about the pain and her blood sugar. [facility] also tells pt she needs to go to the ED if she develops cp, severe sob, high fever w/ cough, uncontrollable n/v/d, black/bloody stools or urine, focal weakness, or syncope. [facility] administers 40mg prednisone (2 tablets) PO to the pt. Pt states her verbal understanding of [facility] instructions and thanks [facility] for coming. [facility] is clear. Report completed by GWYN Nichols [id number]. [facility] Lab Orders: urinalysis, dipstick: Performed [facility] Medication Orders: prednisone 20 mg tablet: Administered ..................... ..................... ..................... ..................... ..................... ..................... ............... [facility] Consulted: Sally Blancas ..................... ..................... ..................... ..................... ..................... ..................... ............... Disposition: Fulfilled Sally Blancas MD [address] [facility],[address], [place], [address], [facility] 09/25/2024 17:07:04 OBGyn Episode No OBEpisode recorded.
--- OUTSIDE RECORDS SUMMARY | 2025-04-29 11:12 | XMS_ITS | Clinical Summary ---
Author Organization [facility], Located Within [facility] Address [address] [place] [address] Care Team Providers Care Compressor Engineer Name Role Phone Chiquis Grajeda MD Primary Care Provider [phone] Allergies Active Allergy Reactions Criticality Noted Date [...] 99 mg/dL 07/25/2023 8:26 AM EST [facility] Comment:Fasting: <100 mg/dL, Non-Fasting: <200 mg/dL (ADA 2005) Blood Urea Nitrogen (BUN) 12 8 - 21 mg/dL 07/25/2023 8:26 AM EST [facility] Creatinine 0.6 0.4 - 1.1 mg/dL 07/25/2023 8:26 AM [facility] eGFR >90 >59 07/25/2023 8:26 AM [facility] Comment:CKD-EPI (2020) in mL /min/1.73 sq meters. Sodium 142 136 - 145 mmol/L 07/25/2023 8:26 AM [facility] Potassium 4.0 3.4 - 5.3 mmol/L 07/25/2023 8:26 AM [facility] Chloride 103 98 - 107 mmol/L 07/25/2023 8:26 AM [facility] CO2 25 22 - 33 mmol/L 07/25/2023 8:26 AM [facility] Calcium 9.3 8.7 - 10.5 mg/dL 07/25/2023 8:26 AM [facility] Alkaline Phosphatase 62 32 - 122 U/L 07/25/2023 8:26 AM [facility] Aspartate Aminotrans (AST) 57(H) 10 - 50 U/L 07/25/2023 8:26 AM [facility] Alanine Aminotrans (ALT) 36 10 - 50 U/L 07/25/2023 8:26 AM [facility] Bilirubin, Total 0.6 0.2 - 1.0 mg/dL 07/25/2023 8:26 AM [facility] Protein, Total 5.8(L) 6.3 - 8.3 g/dL 07/25/2023 8:26 AM [facility] Albumin 3.4 3.4 - 4.8 g/dL 07/25/2023 8:26 AM [facility] BUN/Creatinine Ratio 20 10.0 - 25.0 Ratio 07/25/2023 8:26 AM [facility] Globulin 2.4 1.5 - 3.9 g/dL 07/25/2023 8:26 AM [facility] Albumin/Globulin Ratio 1.4 1.0 - 3.0 Ratio 07/25/2023 8:26 AM [facility] Anion Gap 14 7 - 17 07/25/2023 8:26 AM [facility] Blood specimen (specimen) (Plasma/Serum) 07/25/2023 6:49 AM EST 07/25/2023 6:56 AM EST us Mary Mason DO LAB BLOOD ORDERABLES Final Resul t Performing Organization Address [facility] Co de Phone Number [address] [address], [address] [address] * (ABNORMAL) HEMOGLOBIN A1C WITH ESTIMATED AVERAGE GLUCOSE (07/21/2023 1:11 AM EST) Hemoglobin A1C 7.0(H) <5.7 % 07/21/2023 1:42 PM EST [facility] Comment: A1c% Interpretation 5.7 - 6.0 Increase risk of diabetes 6.1 - 6.4 Higher risk of diabetes > or = 6.5 Consistent with diabetes Diabetes Care, 33(Supp 1):S1-S61, 2010 Estimated Average Glucose 154 mg/dL 07/21/2023 1:42 PM [facility] Blood specimen / Unknown 07/21/2023 1:11 AM EST 07/21/2023 1:59 AM EST us Bernie Tony DO LAB BLOOD ORDERAB[place] [address], [place] [address] from Last 3 Months or Most Recently Relevant to Health Maintenance Insurance MEDICARE PART A & B MEDICAID OUT OF STATE [facility] MEDICARE PART A & B [facility] MEDICARE OUT OF NETWORK Advance Directives * DNR (Latest Code Status on File) Date Activated Date Inactivated Comments 07/21/2023 5:56 PM DNR/ DNI Question Answer Comments Decision thoroughly discussed with: Patient * Full Code Date Activated Date Inactivated Comments 07/21/2023 6:54 AM 07/21/2023 5:56 PM Care Teams Compressor Engineer Relationship Specialty Start Date End Date Chiquis Grajeda MD [address] [place] [address] [place] [address] PCP - General Internal Medicine 07/21/23
--- OUTSIDE RECORDS SUMMARY | 2025-04-29 11:12 | XMS_ITS | Data Portability ---
Author Organization [place] [facility] Address [address] [place] [address] Care Team Providers Care Meter Tester Polyphase Name Role Phone KIT STAUFFER Primary Care [...] I have accessed patient records on the [employer]. This information was pertinent in [...] r/o frx and eval hardware. 2021 022 AL[facility] ([facility]), [address] [place] [address], [address], 15:52:40 Medication Orders cyclobenzap rine 5 mg tablet 2021 022 [id number], [address] , [place], [address], 10:12:39 Patient TargetsNo targets recorded. Patient InstructionsNo [...] M.D. 09/02/19 3:45:5 0 PM EST. [email or web address] [facility] [address] [facility] [address], [place], [address], 09/02/2021 18:24:55 Result Notes None recorded. Procedures Surgical History Date Name Laterality Status Provider Name and Address Organization Details Recorded Time Cholecystectomy completed JAQUAN Mayer [address] [place], [address], [place] [facility] 09/01/2021 09:06:46 Appendectomy completed JAQUAN Montgomery [address] [place], [address], [place] [facility] 09/01/2021 09:06:50 Tonsillectomy completed JAQUAN Montgomery [address], [place], [address], [place] [facility] 09/01/2021 09:06:55 Back Surgery completed JAQUAN Montgomery [address] [place], [address], [place] [facility] 09/01/2021 09:07:05 Imaging Results None recorded. Procedure Notes None recorded. Medical Equipment None Reported. Allergies Allergen ID Allergen Name Allergen Category Reaction Reaction Severity Criticality Documentation Date Start Date Code Code System Note Provider Name and Address Organization Details Recorded Time 470593 ibuprofen medicatio n Not available Not available Not available 09/01/2021 5640 RxNorm JAQUAN Mayer [address] [place], [address], [place] [facility] 08:57:33 242659 aspirin medicatio n Not available Not available Not available 09/01/2021 1191 RxNorm Jonn Tang, PA [address], [place], [address], [place] [facility] 2 08:57:42 595557 Ultram medicatio n Not available Not available Not available 09/01/2021 48588 6 RxNorm Jonn Tang, PA [address], [place], [address], [place] [facility] 2 08:57:49 802413 Geodon medicatio n Not available Not available Not available 09/01/2021 13278 4 RxNorm Jonn Tang, PA [address], [place] [facility] [place], [address], [place] [facility] 2 [...] ICD10 Code Diagnosis IMO Codes Diagnosis Note [id number] JAQUAN Gil [facility] [address] [place] [address] 09/01/2021 08:19:31 09/02/2021 11:03:01 Low back pain 384737243 M54.50 Spasm of back muscles 20 3603529 M62.830 Health Concerns Section Related Observation LastModified by Organization Detai ls LastModified Time None Recorded Concern Status LastModified by Organization Details LastModified Time None Recorded Advance Directives Directive None Recorded Payers Insurance Date Sequence Insurance Name Policy Number Policy Kingsley Covered Member ID Kingsley Member ID Guarantor Name 08/31/2021 1 *SELF PAY* Sofiya Rivas [id number] Sofiya Rivas 09/09/2021 1 [facility] - DOS PRIOR TO 2022 - DUAL ELIGIBLE (MEDICARE REPLACEMENT/ADV ANTAGE - HMO) Sofiya Rivas [id number] Sofiya Rivas Notes Date Note Type Note [...] assoc sx's JAQUAN Montgomery [address] [place], [address], [place] [facility] 09/01/2021 10:13:13 OBGyn Episode No OBEpisode recorded.
== END 2025-04-29 09:45 | disposition home or self-care (01) ==
LOC: HO.US 09:44
PROVIDERS: PCP Internal Medicine; Visit Provider Student in an Organized Health Care Education/Training Program
DX: E06.3 Autoimmune thyroiditis (principal); E04.2 Nontoxic multinodular goiter
CPT/HCPCS: 76536

== ENCOUNTER → 2025-04-29 09:45 | Outpatient (BNV) | payer OTHER, SELFPAY | PROVIDERS: PCP Internal Medicine; Visit Provider Radiology Diagnostic Radiology | DX: E06.3 Autoimmune thyroiditis (principal) | CPT/HCPCS: 76536 ==

== ENCOUNTER 2025-05-22 12:53 | Outpatient (AMB) | payer OTHER, SELFPAY ==
[2025-05-22 13:17] VITALS: BP 124/70
--- NOTE | 2025-05-22 13:17 | MHC.OFFVIS ---
Vital Signs 05/22/25 13:17 Height 5 ft 5 in Weight 180 lb BMI 30.0 BP 124/70 Intake Visit Reasons: 2-3 weeks biopsy follow up Turret Press Operator Required: No Information Interpreted: non-clinical & clinical Accompanied by: Self / Same As Patient Allergies aspirin (ASPIRIN) Allergy (Severe, Verified 05/22/25 13:18) GI bleed, stomach upset ibuprofen (IBUPROFEN) Allergy (Severe, Verified 05/22/25 13:18) GI Bleed, stomach upset valsartan (From Diovan) Allergy (Severe, Verified 05/22/25 13:18) hives ziprasidone (From Geodon) Allergy (Severe, Verified 05/22/25 13:18) RASH-PALPITATIONS azithromycin Allergy (Intermediate, Verified 05/22/25 13:18) facial swelling metformin (METFORMIN) Allergy (Intermediate, Verified 05/22/25 13:18) NAUSEA & VOMITING, GI upset cephalexin (From KEFLEX) Allergy (Unknown, Verified 05/22/25 13:18) can't remember lisinopril Allergy (Unknown, Verified 05/22/25 13:18) cough NSAIDS (Non-Steroidal Anti-Inflamma (NSAIDS (NON-STEROIDAL ANTI-INFLAMMA) Adverse Reaction (Severe, Verified 05/22/25 13:18) HX OF GI BLEED tramadol (Ultram) Adverse Reaction (Severe, Verified 05/22/25 13:18) GI upset sulfamethoxazole (From Bactrim) Adverse Reaction (Intermediate, Verified 05/22/25 13:18) Hives tiotropium (From Spiriva with HandiHaler) Adverse Reaction (Intermediate, Verified 05/22/25 13:18) Unknown trimethoprim (From Bactrim) Adverse Reaction (Intermediate, Verified 05/22/25 13:18) Hives doxycycline Adverse Reaction (Mild, Verified 05/22/25 13:18) Stomach Upset Post menopausal: Yes HPI Comments Details: Presenting post vulvar biopsy for follow-up. Doing well with no complaints. The pathology showed the following: Vulva, posterior fourchette, biopsy: Spongiotic dermatitis; no atypia or fungi identified. See comment. Comment: The differential includes contact (irritant or allergic), atopic, drug or other immune-mediated processes. No features of dysplasia or malignancy are identified [facility] Medical History Respiratory failure with hypoxia Tobacco dependence Hypothyroid Macular degeneration Acute exacerbation of chronic obstructive pulmonary disease (COPD) Dermatitis of vulva Uses wheelchair Wears dentures Supplemental oxygen dependent Slow to wake up after anesthesia Lumbar spinal stenosis Smoker Nicotine dependence, cigarettes, uncomplicated Acute respiratory failure with hypoxia Vulvar ulcer Recurrent major depression-severe Lower extremity pain Sialoadenitis Jaw pain العلي (dyspnea on exertion) Chest pain Osteopenia (~2015) Sinus tachycardia Pulmonary nodule Menopausal state Artificial menopause state Constipation Nocturnal hypoxemia COPD (chronic obstructive pulmonary disease) Spinal stenosis Depression Vitamin D deficiency Multinodular thyroid HLD (hyperlipidemia) T2DM (type 2 diabetes mellitus) (~2008) Surgical History Hx of eye surgery History of cataract surgery S/P thyroid biopsy History of lithotripsy History of cardiac catheterization Hx of colonoscopy Hx of arthroscopy of left knee Hx of spinal fusion Hx of cholecystectomy Family History Father No problems noted. Mother Cancer Diabetes Social History Household Members: None Housing: Apartment Are you a primary patient care technician instructor to a significant other at home: No Do you presently have visiting nurse or other home services: Yes Alcohol intake: never Comment: aware of trip hazard Patient Tobacco Use Status: Current everyday Tobacco user Smoking Start Date: 04/01/1964 Tobacco use type: Cigar Cigarette Packs Per Day: 0.5 Cigarettes Per Day: 8 Years Smoked: 60 e-Cigarette/Vaping Use: Currently Using Second Hand Smoke Exposure: No Advance Directives Date on File: 12/02/22 service: No Current occupational status: retired Sexual orientation: Straight/Heterosexual Cognitive needs: No Hearing needs: No Vision needs: Yes Female Reproductive History Menstrual Age of Menarche: 12 Review of Systems Const All systems reviewed & are unremarkable except as noted in HPI and below Reports as per HPI and Reports no additional complaints GI Reports no additional complaints Reports no additional complaints Physical Exam Vital Signs: Last Vital Signs BP 124/70 05/22/25 13:17 BMI result Body Mass Index 30.0 Assessment & Plan Assessment & Plan (1) Vulvar lesion: Comment: post fourchette leukoplakia Code(s): N90.89 - Other specified noninflammatory disorders of vulva and perineum Category: Medical Plan: Discussed with the patient the results the pathology recommended hydrocortisone 1% ueqv-qzh-wbjafcy cream,, if symptoms do not improve instructions given the patient to call back will prescribe medium potency corticosteroids. Instructions given the patient to call in case of perineal hard lesions or nonhealing ulcers. All questions answered, the patient verbalized understanding Coding Level of Care Code Est Pt Level 3 (38548) Diagnoses Vulvar lesion N90.89
--- OUTSIDE RECORDS SUMMARY | 2025-05-22 15:53 | XMS_ITS | Data Portability ---
Author Organization [facility] Address [address] [place] [address] Care Team Providers Care General Hardware Salesperson Name Role Phone KALA FIERRO Primary Care Provider [phone] HIM CCA OTHER Assessment Encounter Date Assessment Date Assessment LastModified by Organization Details LastModified Time 01/25/2022 01/25/2022 I have reviewed and agree with the assessment and plan as documented by the final inspector shuttle. I provided real-time medical direction for this [...] Assessment and Plan as documented by the Cross Enterprise Integrator. Patient given the opportunity to ask questions. Advised if develops CP/severe SOB/turning blue/uncontrolle d n/v/d or black/bloody emesis or stool/ AMS/ syncope/ hi fever to call 911- verbalized understanding of instructions [email or web address] Not available 02/23/2023 11:45:02 09/25/2024 09/25/2024 I provided real -time medical direction via phone for this encounter, and was available for additional phone based assistance as needed. I have reviewed and agree with the Assessment and Plan as documented by the Cross Enterprise Integrator. We discussed the diagnostic uncertainty of home [...] None recorded. Lab urinalysis, dipstick 2024 025 [facility], [address] [place] [address], [phone] 5 07:53:38 rapid SARS CoV 2 Ag, QL IA, respiratory specimen 2022 023 [email or web address] 0 [facility], [address] [place] [address], [phone] 3 11:00:43 rapid flu (A+B) 2022 023 [email or web address] 0 [facility], [address] [place] [address], [phone] 3 11:00:43 BMP, serum or plasma 2022 023 [email or web address] 0 [facility], [address] [place] [address], [address] 3 13:32:46 Referral None recorded. Procedures None recorded. Surgeries None recorded. Imaging electrocard iogram 2024 025 [facility], [address] [place], [address] 5 16:39:35 Medication Orders prednisone 20 mg tablet 2024 025 [email or web address] 0 [id number], [address] [place], [address], 5 15:41:55 cyclobenzap rine 5 mg tablet 2024 025 [facility] #[id number], [address] [place], [address], 5 15:49:51 prednisone 20 mg tablet 2024 025 [id number] [address] [place], [address], 5 15:49:51 prednisone 20 mg tablet 2022 023 [id number], [address] [place], [address], 3 11:44:47 prednisone 20 mg tablet 2022 023 [email or web address] 0 [id number] [address] [place], [address], 3 11:44:43 molnupiravi r 200 mg capsule (EUA) 2022 023 [id number], [address] [place], [address], 3 11:44:46 Anbesol (benzocaine ) 10 % oral mucosal liquid 2021 022 [id number], [address] [place], [address], 2 20:01:49 Patient TargetsNo targets recorded. Patient InstructionsNo instructions recorded. Reason for Referral None Reported. Results Created Date Observation Date Name Description Value Unit Range Abnormal Flag Note LastModifiedBy Organization Detail LastModifiedTime 02/24/2002/23/2023 BMP, serum or plasm a BUN 8 Not Available [facility] [address] [place] [address], [phone] 02/23/2023 11:45:10 02/24/20 23 02/23/2023 BMP, serum or plasm a Ca Ionize d calciu m 1.18 Not Available [facility] - [facility] [address] [place] [address], [phone] 02/23/2023 11:45:10 02/24/2002/23/2023 BMP, serum or plasm a CI- 98 Not Available [facility] - [facility] [address], [address] [place] [address] 02/23/2023 11:45:10 02/24/2002/23/2023 BMP, serum or plasm a CRE 0.7 Not Available [facility] - [facility] [address], [address] [place] [address] 02/23/2023 11:45:10 02/24/20 23 02/23/2023 BMP, serum or plasm a GLU 187 after OJ Not Available [facility] [address] [place] [address], [address] [place] [address] 02/23/2023 11:45:10 02/24/20 23 02/23/2023 BMP, serum or plasm a K+ 3.8 Not Available [facility] - [facility] [address], [address] [place] [address] 02/23/2023 11:45:10 02/24/20 23 02/23/2023 BMP, serum or plasm a Na+ 143 Not Available [facility] - [facility] [address], [address] [place] [address] 02/23/2023 11:45:10 02/24/20 23 02/23/2023 BMP, serum or plasm a tCO2 25 Not Available [facility] [address], [address] [place] [address] 02/23/2023 11:45:10 02/24/2002/23/2023 rapid flu (A+B) Flu negati ve Not Available [facility] [address] [place] [address], [address] [place] [address] 02/23/2023 10:58:20 02/24/2002/23/2023 rapid SARS CoV 2 Ag, QL IA, respi rator y speci men rapid SARS CoV 2 Ag, QL IA, respiratory specimen positi ve Not Available [facility] [address] [place] [address], [address] [place] [address] 02/23/2023 10:58:11 09/26/1909/25/2024 elect khanh diogr am No observ ation record ed. [email or web address] [facility] [address] [place] [address], [address] [place] [address] 09/26/2024 07:53:58 Result Notes None recorded. Medical Equipment None Reported. Allergies Allergen ID Allergen Name Allergen Category Reaction Reaction Severity Criticality Documentation Date Start Date Code Code System Note Provider Name and Address Organization Details Recorded Time 35823 Non-stero idal anti-infl ammatory agent (substanc e) medicatio n Not available Not available Not available 09/25/2024 49353 5008 SNOMED Not Available [facility] - production 5 11:35:33 3135 ibuprofen medicatio n Not available Not available Not available 02/23/2023 5640 RxNorm Not Available [facility] - production 5 11:35:33 3136 aspirin medicatio n Not available Not available Not available 02/23/2023 1191 RxNorm Not Available [facility] - production 5 11:35:33 3137 Ultram medicatio n Not available Not available Not available 02/23/2023 55625 6 RxNorm Sally Blancas MD [address] [place] [address],[address], [place], [phone], [facility] 3 10:59:42 3138 Geodon medicatio n Not available Not available Not available 02/23/2023 60817 4 RxNorm Sally Blancas MD [address] [place] [address],[address], [place], [address], [facility] 3 10:59:47 Medications Name Sig Start Date [...] ot Available Vitals Date Recorded Oxygen saturation Body temperature Body weight Heart rate Body height Respiratory rate Systolic And Diastolic Provider Name and Address Organization Details Last Updated DateTime 5 90 % 97.4 [degF] 44119.8 88 g 82 /min 167.64 cm 18 /min 148/82 mm[Hg] Not Available [facility] - production 5 15:38:48 Date Recorded Oxygen saturation Heart rate Body temperature Respiratory rate Systolic And Diastolic Provider Name and Address Organization Details Last Updated DateTime 2 98 % 76 /min 97.9 [degF] 18 /min 133/87 mm[Hg] Not Available [facility] - production 2 19:51:54 Date Recorded Respiratory rate Heart rate Body temperature Oxygen saturation Inhaled oxygen flow rate Systolic And Diastolic Provider Name and Address Organization Details Last Updated DateTime 3 20 /min 83 /min 98.5 [degF] 93 % 2 L/min 104/64 mm[Hg] Not [...] 3084 Maryam Acevedo MD [facility] - [facility] [address] [place] [phone] 01/25/2022 19:51:49 03/03/2022 12:49:36 Aphthous ulcer of mouth 307689397 K12.0 05502 Sally Blancas MD Main - [facility] [address] [place] [phone] 02/23/2023 10:50:46 02/23/2023 23:49:31 Acute exacerbation of chronic obstructive pulmonary disease 858312261 J44.1 Offered patient nebulizer she declines. She [...] to symptom onset) and her PCP COVID-19 [id number] U07.1 Reviewed meds with the patient and [...] pat states prednisone helps cough in past [id number] Sally Blancas MD Main - [facility] [address] [place] [phone] 09/25/2024 15:38:46 09/25/2024 19:44:24 Chronic back pain [id number] G89.29 w/ acute exacerbati on Patient has [...] to affected area low back Urinary symptoms 7896416 08 R39.9 bs was 105 this morning [...] sf fluids Chronic ob structive pulmonary disease 48419084 J44.9 Offered patient nebulizer due to rhonchi [...] a lung scan soon Intermitte nt palpitations [id number] R00.2 Towards the end of the visit [...] [place] Member ID Guarantor Name 02/23/2023 1 [facility] - DOS PRIOR TO 2022 - DUAL ELIGIBLE (MEDICARE REPLACEMENT/ADV ANTAGE - HMO) Sofiya Rivas [id number] Sofiya Rivas 09/25/2024 1 [facility] - DOS ON OR AFTER 2022 - DUAL ELIGIBLE - LONGTERM OPTIONS AND ONE CARE (MEDICARE REPLACEMENT/ADV ANTAGE - HMO) Sofiya Rivas [id number] Sofiya Rivas Notes Date Note Type Note [...] Protocol Used: Mouth Pain Protocol-Based Disposition: Consider bessieED, RADHA Community clinician, MD/OYSTER FLOATER triage, PCP, or Urgent Care Visit within 4 Hours ..................... ..................... ..................... ..................... ..................... ..................... ............... CRC Nursing Assessment: Comments: CRC Rn did not need further info to process visit Maryam Acevedo MD [address] [facility],[address], [place], [address], [facility] 01/25/2022 20:01:58 02/23/2023 text/html ROS as noted [...] ..................... ..................... ..................... ..................... ..................... ..................... ............... Cross Enterprise Integrator Note From Carlos Stuart: Per CRC: Member [...] is positive. Flu a/b negative, following called [facility] with report. P: [facility] Dr. Blancas was called [...] up with PCP tomorrow. Red flags discussed [facility] clear. [facility] Lab Orders: rapid SARS CoV 2 Ag, QL IA, respiratory specimen: Performed rapid flu (A+B): Performed BMP, serum or plasma: Performed [facility] Medication Orders: prednisone 20 mg tablet: Administered ..................... ..................... ..................... ..................... ..................... ..................... ............... Disposition: Fulfilled Sally Blancas MD [address] [place] [address],[address], [place], [address], [facility] 02/23/2023 13:35:59 09/25/2024 text/html ROS as noted in the HPI CRC Nurse Triage Notes (Kelly Wall): Reason [...] Mellitus Type 2, Hyperlipidemia PMH Reviewed at 09/25/2024 Allergies Reviewed at 09/25/2024:35 Pain Assessment: Level 8 out of 10 Comments: Control Equipment Electrician verified the name//address and phone number. Pt [...] s/s and seek emergency treatment if need Cross Enterprise Integrator Organization Information for Roxanna Nichols [employer] Name: [employer]. Address: [address] [place] [address], Remnants Cutter: Khadar WANG No.: [id number] Cross Enterprise Integrator POC Test Results from Roxanna Nichols - ALS Urine Dipstick (15:47:57) Urine leukocytes: - TIMOTEO [...] ..................... ..................... ..................... ..................... ..................... ..................... ............... Cross Enterprise Integrator Note From Roxanna Nichols: ELDER makes pt [...] touched it , as well as heat. [facility] obtains vital signs and pt is [...] clear of any redness, swelling, or bruising. [facility] contacts [facility] and discusses the above. [facility] orders a UA as well as 40mg prednisone PO for back pain and inflammation. Pt is able to provide a urine sample for UA. UA is negative for infection, however, urine glucose is high. After physical exam and UA, pt tells [facility] she has been having profuse night sweats, Like I'm going through menopause again! and she has been coughing up, yketutz-[id number]-jwc phlegm and having some heart palpitations. [facility] orders a 12-lead EKG. EKG is obtained and found to be unremarkable. [facility] informs pt that a CXR is recommended. [facility] prescribes prednisone and cyclobenzaprine for pt's back pain and stresses the importance of monitoring her glucose levels, using her insulin, and watching her diet. [facility] says pt can increase the cyclobenzaprine dose from 5mg to 10mg, if needed. She also tells pt 3G Tylenol per day is the max dose she should take for her weight. Pt is advised to use ice and heat on her back as well. [facility] tells pt to contact her PCP tomorrow to touch base about the pain and her blood sugar. [facility] also tells pt she needs to go to the ED if she develops cp, severe sob, high fever w/ cough, uncontrollable n/v/d, black/bloody stools or urine, focal weakness, or syncope. [facility] administers 40mg prednisone (2 tablets) PO to the pt. Pt states her verbal understanding of [facility] instructions and thanks [facility] for coming. [facility] is clear. Report completed by GWYN Nichols [id number]. [facility] Lab Orders: urinalysis, dipstick: Performed [facility] Medication Orders: prednisone 20 mg tablet: Administered ..................... ..................... ..................... ..................... ..................... ..................... ............... [facility] Consulted: Sally Blancas ..................... ..................... ..................... ..................... ..................... ..................... ............... Disposition: Fulfilled Sally Blancas MD [address] [facility],[address], [place], [address], [facility] 09/25/2024 17:07:04 OBGyn Episode No OBEpisode recorded.
--- OUTSIDE RECORDS SUMMARY | 2025-05-22 15:53 | XMS_ITS | Clinical Summary ---
Author Organization [facility] Address [address] [place] [address] Care Team Providers Care Inspector Glass Or Mirror Name Role Phone Chiquis Grajeda MD Primary Care Provider [phone] Allergies Active Allergy Reactions Criticality Noted Date [...] 0.4 - 1.1 mg/dL 07/25/2023 8:26 AM [facility] eGFR >90 >59 07/25/2023 8:26 AM [facility] Comment:CKD-EPI (2020) in mL /min/1.73 sq meters. Sodium 142 136 - 145 mmol/L 07/25/2023 8:26 AM [facility] Potassium 4.0 3.4 - 5.3 mmol/L 07/25/2023 8:26 AM [facility] Chloride 103 98 - 107 mmol/L 07/25/2023 8:26 AM [facility] CO2 25 22 - 33 mmol/L 07/25/2023 8:26 AM [facility] Calcium 9.3 8.7 - 10.5 mg/dL 07/25/2023 8:26 AM [facility] Alkaline Phosphatase 62 32 - 122 U/L 07/25/2023 8:26 AM [facility] Aspartate Aminotrans (AST) 57(H) 10 - 50 U/L 07/25/2023 8:26 AM [facility] Alanine Aminotrans (ALT) 36 10 - 50 U/L 07/25/2023 8:26 AM [facility] Bilirubin, Total 0.6 0.2 - 1.0 mg/dL 07/25/2023 8:26 AM [facility] Protein, Total 5.8(L) 6.3 - 8.3 g/dL 07/25/2023 8:26 AM [facility] Albumin 3.4 3.4 - 4.8 g/dL 07/25/2023 8:26 AM [facility] BUN/Creatinine Ratio 20 10.0 - 25.0 Ratio 07/25/2023 8:26 AM [facility] Globulin 2.4 1.5 - 3.9 g/dL 07/25/2023 8:26 AM [facility] Albumin/Globulin Ratio 1.4 1.0 - 3.0 Ratio 07/25/2023 8:26 AM [facility] Anion Gap 14 7 - 17 07/25/2023 8:26 AM [facility] Blood specimen (specimen) (Plasma/Serum) 07/25/2023 6:49 AM EST 07/25/2023 6:56 AM EST us Mary Mason DO LAB BLOOD ORDERABLES Final Resul t Performing Organization Address [facility] Co de Phone Number [address] [address], [address] [address] * (ABNORMAL) HEMOGLOBIN A1C WITH ESTIMATED AVERAGE GLUCOSE (07/21/2023 1:11 AM EST) Hemoglobin A1C 7.0(H) <5.7 % 07/21/2023 1:42 PM EST [facility] Comment: A1c% Interpretation 5.7 - 6.0 Increase risk of diabetes 6.1 - 6.4 Higher risk of diabetes > or = 6.5 Consistent with diabetes Diabetes Care, 33(Supp 1):S1-S61, 2010 Estimated Average Glucose 154 mg/dL 07/21/2023 1:42 PM [facility] Blood specimen / Unknown 07/21/2023 1:11 AM EST 07/21/2023 1:59 AM EST us Bernie Tony DO LAB BLOOD [place] [address], [place] [address] from Last 3 Months or Most Recently Relevant to Health Maintenance Insurance MEDICARE PART A & B MEDICAID OUT OF STATE [facility] MEDIC[facility] PART A & B [facility] MEDICARE OUT OF NETWORK Advance Directives * DNR (Latest Code Status on File) Date Activated Date Inactivated Comments 07/21/2023 5:56 PM DNR/ DNI Question Answer Comments Decision thoroughly discussed with: Patient * Full Code Date Activated Date Inactivated Comments 07/21/2023 6:54 AM 07/21/2023 5:56 PM Care Teams Inspector Glass Or Mirror Relationship Specialty Start Date End Date Chiquis Grajeda MD [address] [place] [address] [place] [address] PCP - General Internal Medicine 07/21/23
--- OUTSIDE RECORDS SUMMARY | 2025-05-22 15:53 | XMS_ITS | Data Portability ---
Author Organization [place] [facility] Address [address] [place] [id number] Care Team Providers Care Cathode Ray Tube Salvage Processor Name Role Phone KIT STAUFFER Primary Care Provider [phone] Assessment Encounter Date Assessment Date Assessment LastModified [...] I have accessed patient records on the [employer]. This information was pertinent in [...] r/o frx and eval hardware. 2021 022 [place] [facility] ([facility]), [address] [place] [address], [address], 15:52:40 Medication Orders cyclobenzap rine 5 mg tablet 2021 022 [id number], [address] [facility] , [place], [address], 10:12:39 Patient TargetsNo targets recorded. Patient InstructionsNo [...] M.D. 09/02/19 3:45:5 0 PM EST. [email or web address] [facility] [employer] [address] [facility] [address], [place], [address], 09/02/2021 18:24:55 Result Notes None recorded. Procedures Surgical History Date Name Laterality Status Provider Name and Address Organization Details Recorded Time Cholecystectomy completed JAQUAN Mayer [address] [place], [address], [place] [facility] 09/01/2021 09:06:46 Appendectomy completed JQAUAN Montgomery [address] [place], [address], [place] [facility] 09/01/2021 09:06:50 Tonsillectomy completed JAQUAN Montgomery [address], [place], [address], [place] [facility] 09/01/2021 09:06:55 Back Surgery completed JAQUAN Montgomery [address] [place], [address], [place] [facility] 09/01/2021 09:07:05 Imaging Results None recorded. Procedure Notes None recorded. Medical Equipment None Reported. Allergies Allergen ID Allergen Name Allergen Category Reaction Reaction Severity Criticality Documentation Date Start Date Code Code System Note Provider Name and Address Organization Details Recorded Time 945842 ibuprofen medicatio n Not available Not available Not available 09/01/2021 5640 RxNorm JAQUAN Mayer [address] [place], [address], [place] [facility] 08:57:33 206681 aspirin medicatio n Not available Not available Not available 09/01/2021 1191 RxNorm Jonn Tang, PA [address], [place], [address], [place] [facility] 2 08:57:42 985288 Ultram medicatio n Not available Not available Not available 09/01/2021 27943 6 RxNorm Jonn Tang, PA [address], [place], [address], [place] [facility] 2 08:57:49 [id number] Geodon medicatio n Not available Not available Not available 09/01/2021 99240 4 RxNorm Jonn Tang, PA [address], [facility] [place], [address], [place] [facility] [...] ot Available Vitals Date Recorded Oxygen saturation Heart rate Respiratory rate Body temperature Systolic And Diastolic Provider Name and Address Organization Details Last Updated DateTime 95 % 101 /min 20 /min 97.8 [degF] 152/76 mm[Hg] Not Available [facility] 09:00:51 Social History None recorded. Functional Status [...] History Condition Response Coronary Artery Disease N Parkinson's Disease N Depression N COPD N Hypothyroidism Y A-fib N Diabetes Y CHF N Cancer N Dementia N Stroke N Asthma N High Cholesterol Y Rheumatoid Arthritis N Pulmonary Embolism N Hypertension N Osteoporosis N Kidney Disease N Gynecological HistoryNo gynecological history recorded. Obstetrics History GPAL:G 0 P 0 0 0 0 Past Encounters Encounter ID Performer Location Encounter Start Date Encounter Closed Date Diagnosis/Indication Diagnosis SNOMED-CT Code Diagnosis ICD10 Code Diagnosis IMO Codes Diagnosis Note [id number] JAQUAN Gil [facility] [address] [place] [address] 09/01/2021 08:19:31 09/02/2021 11:03:01 Low back pain 383426099 M54.50 Spasm of back muscles 20 [id number] M62.830 Health Concerns Section Related Observation LastModified by Organization Detai ls LastModified Time None Recorded Concern Status LastModified by Organization Details LastModified Time None Recorded Advance Directives Directive None Recorded Payers Insurance Date Sequence Insurance Name Policy Number Policy Kingsley Covered Member ID Kingsley Member ID Guarantor Name 08/31/2021 1 *SELF PAY* Sofiya Rivas [id number] Sofiya Rivas 09/09/2021 1 [facility] - DOS PRIOR TO 2022 - DUAL ELIGIBLE (MEDICARE REPLACEMENT/ADV ANTAGE - HMO) Sofiya Rivas [id number] Sofiya Rivas Notes Date Note Type Note [...] no other assoc sx's JAQUAN Montgomery [address] [place], [address], [place] [facility] 09/01/2021 10:13:13 OBGyn Episode No OBEpisode recorded.
--- OUTSIDE RECORDS SUMMARY | 2025-05-22 15:53 | XMS_ITS | Clinical Summary ---
Author Organization [facility] Address [address] [place] [address] Care Team Providers Care Plant Technician Name Role Phone Chiquis Grajeda MD Primary Care Provider [phone] Social History Tobacco Use Types Packs/Day Years [...] of 2) 2000 Colorectal Cancer Screening: Colonoscopy 06/21/2011 06/21/2001 Falls Risk Assessment 07/21/2023 Hepatitis C Screening 07/21/2023 Osteoporosis Screening (Bone Density Screening) 07/21/2023 Social Influencers of Health Screening 07/21/2023 Depression Screening 06/27/2024 COVID-19 Vaccine (1 - 2024-2 6 season) 2025 Influenza Vaccine (#1) 2025 RSV [...] Procedure Name Priority Date/Time Associated Diagnosis Comments EXTERNAL COLONOSCOPY REPORT Routine 06/21/2001 10:29 AM EST from Last 3 Months or Most Recently Relevant to Health Maintenance Results * External Colonoscopy Report (06/21/2001 10:29 AM EST) Anatomical Region Laterality Modality Endoscopy us Historical Provider GI~PROCEDURE ORDERABLES F inal Result from Last 3 Months or Most Recently Relevant to Health Maintenance Care Teams Plant Technician Relationship Specialty Start Date End Date Chiquis Grajeda MD [address] [place] [address] [address] [facility] [place] [address] PCP - General 12/01/22
== END 2025-05-22 15:31 | disposition home or self-care (01) ==
LOC: HO.HWS 12:53
PROVIDERS: PCP Internal Medicine; Visit Provider Obstetrics & Gynecology
DX: N90.89 Other specified noninflammatory disorders of vulva and perineum (principal)
CPT/HCPCS: 99213

== ENCOUNTER → 2025-05-22 12:53 | Outpatient (BNVA) | payer OTHER, SELFPAY | PROVIDERS: PCP Internal Medicine; Visit Provider Obstetrics & Gynecology | DX: N90.4 Leukoplakia of vulva (principal) | CPT/HCPCS: 99212 ==

== ENCOUNTER 2025-06-05 10:17 | Outpatient (AMB) | payer OTHER, SELFPAY ==
[2025-06-05 10:19] VITALS: BP 124/68; PULSE 76; O2SAT 92; BMI 29.7
--- NOTE | 2025-06-05 10:19 | A.OFFVIS_ITS ---
Vital Signs 06/05/25 10:19 Height 5 ft 5 in Weight 178 lb 9.191 oz BMI 29.7 BP 124/68 Blood Pressure Location Rt brachial Position Sitting Pulse 76 Pulse Source Pulse Oximeter Pulse Oximetry (%) 92 Oxygen Delivery Method Room Air Intake Visit Reasons: T2DM Intake Note: Patient presents today for a follow-up on Type 2 Diabetes Mellitus: Last Diabetic Eye exam: 12/24/2024, [facility] Last Podiatry Exam: 05/14/2025, [facility] Most recent HbA1c: 7.7%, 06/05/2025 Random Glucose- 192 mg/dL, Today Caser In Required: No Accompanied by: Self / Same As Patient Allergies aspirin (ASPIRIN) Allergy (Severe, Verified 06/05/25 10:20) GI bleed, stomach upset ibuprofen (IBUPROFEN) Allergy (Severe, Verified 06/05/25 10:20) GI Bleed, stomach upset valsartan (From Diovan) Allergy (Severe, Verified 06/05/25 10:20) hives ziprasidone (From Geodon) Allergy (Severe, Verified 06/05/25 10:20) RASH-PALPITATIONS azithromycin Allergy (Intermediate, Verified 06/05/25 10:20) facial swelling metformin (METFORMIN) Allergy (Intermediate, Verified 06/05/25 10:20) NAUSEA & VOMITING, GI upset cephalexin (From KEFLEX) Allergy (Unknown, Verified 06/05/25 10:20) can't remember lisinopril Allergy (Unknown, Verified 06/05/25 10:20) cough NSAIDS (Non-Steroidal Anti-Inflamma (NSAIDS (NON-STEROIDAL ANTI-INFLAMMA) Adverse Reaction (Severe, Verified 06/05/25 10:20) HX OF GI BLEED tramadol (Ultram) Adverse Reaction (Severe, Verified 06/05/25 10:20) GI upset sulfamethoxazole (From Bactrim) Adverse Reaction (Intermediate, Verified 06/05/25 10:20) Hives tiotropium (From Spiriva with HandiHaler) Adverse Reaction (Intermediate, Verified 06/05/25 10:20) Unknown trimethoprim (From Bactrim) Adverse Reaction (Intermediate, Verified 06/05/25 10:20) Hives doxycycline Adverse Reaction (Mild, Verified 06/05/25 10:20) Stomach Upset HPI Comments Details: 74 year old female with extensive PMHx who is seen in F/U for T2DM Follows with Dr Chirinos for NTMNG and Hypercalcemia-upcoming visit with Dr Alvarez. Initially diagnosed with T2DM in 2008. Insulin since 2018 Current regimen Actos 30mg Jardiance 25 mg PO daily Glipizide 5mg xr daily She stopped Victoza 1.8 mg daily, Tresiba 44 units qAM and Novolog sliding scale -stating she was sick of taking. She refuses further injections She has tried and failed Glimepiride and Onglyza. She is intolerant to Metformin due to GI side effects. A1C 7.7% from 7.8% 02/05, A1C 7.5% 07/2023: 7.3%. FlightStats 2 CGM download. 94% use GMI 7.4% High 38%. She does report one overnight low to 65 Treats lows with tootsie rolls, orange juice, does check sugar after to make sure its increasing. Family history of T2DM in her Mother and Brother. UTD paulino Has neuropathy. No nephropathy, not on JAZMIN/ARB. UAC 10 10/26/2022. Lisinopril was stopped due to cough, and no JAZMIN/ARB was resumed due to hypotension. She is following with Cardiology. Has HLD. On Atorvastatin 40 mg PO qHS. Has no history of CAD. Has had Diabetes Education. 2) NTMNG-This will be followed with Dr Taran JOHNSON CONSTITUTIONAL: Denies weight loss, fever and chills. HEENT: Denies changes in vision and hearing. RESPIRATORY: Denies SOB and cough. CV: Denies palpitations and CP GI: Denies abdominal pain, nausea, vomiting and diarrhea. : Denies dysuria and urinary frequency. MSK: Denies new myalgia and joint pain. SKIN: Denies rash and pruritus. NEUROLOGICAL: Denies headache PSYCHIATRIC: Denies recent changes in mood. PHYSICAL EXAM: GENERAL: Alert and oriented x 3. NAD EYES: EOMI. Anicteric. HENT: Moist mucous membranes. No scleral icterus. No cervical lymphadenopathy. LUNGS: Clear to auscultation bilaterally. CARDIOVASCULAR: Regular rate and rhythm. No murmur. No JVD. ABDOMEN: Soft, non-tender +bs EXTREMITIES: No edema. Non-tender. +DP pulses. Normal monofilament SKIN: No rashes or lesions. Warm. NEUROLOGIC: No focal neurological deficits. CN II-XII grossly intact PSYCHIATRIC: Cooperative. Appropriate mood and affect [facility] Medical History Respiratory failure with hypoxia Tobacco dependence Hypothyroid Macular degeneration Acute exacerbation of chronic obstructive pulmonary disease (COPD) Dermatitis of vulva Uses wheelchair Wears dentures Supplemental oxygen dependent Slow to wake up after anesthesia Lumbar spinal stenosis Smoker Nicotine dependence, cigarettes, uncomplicated Acute respiratory failure with hypoxia Vulvar ulcer Recurrent major depression-severe Lower extremity pain Sialoadenitis Jaw pain العلي (dyspnea on exertion) Chest pain Osteopenia (~2015) Sinus tachycardia Pulmonary nodule Menopausal state Artificial menopause state Constipation Nocturnal hypoxemia COPD (chronic obstructive pulmonary disease) Spinal stenosis Depression Vitamin D deficiency Multinodular thyroid HLD (hyperlipidemia) T2DM (type 2 diabetes mellitus) (~2008) Surgical History Hx of eye surgery History of cataract surgery S/P thyroid biopsy History of lithotripsy History of cardiac catheterization Hx of colonoscopy Hx of arthroscopy of left knee Hx of spinal fusion Hx of cholecystectomy Family History Father No problems noted. Mother Cancer Diabetes Social History Household Members: None Housing: Apartment Are you a primary urgent care technician to a significant other at home: No Do you presently have visiting nurse or other home services: Yes Alcohol intake: never Comment: aware of trip hazard Patient Tobacco Use Status: Current everyday Tobacco user Smoking Start Date: 04/01/1964 Tobacco use type: Cigar Cigarette Packs Per Day: 0.5 Cigarettes Per Day: 8 Years Smoked: 60 e-Cigarette/Vaping Use: Currently Using Second Hand Smoke Exposure: No Advance Directives Date on File: 12/02/22 service: No Current occupational status: retired Sexual orientation: Straight/Heterosexual Cognitive needs: No Hearing needs: No Vision needs: Yes Female Reproductive History Menstrual Age of Menarche: 12 Physical Exam Vital Signs: Last Vital Signs Pulse 76 06/05/25 10:19 BP 124/68 06/05/25 10:19 Pulse Ox 92 06/05/25 10:19 Oxygen Delivery Method Room Air 06/05/25 10:19 BMI result Body Mass Index 29.7 Results AMB Hemoglobin A1c AMB Hemoglobin A1c 7.7 % Last Edit by ORION Rand on 06/05/25 10:33 Results Reviewed Results Reviewed: Laboratory Last Values Glucose (Clinic) 192 mg/dL (60-115) H 06/05/25 10:26 Hgb A1c (Clinic) 7.7 % (4.0-6.0) H 06/05/25 10:21 Assessment & Plan Assessment & Plan (1) Type 2 diabetes mellitus with hyperglycemia: Comment: Dr. Shipley Code(s): E11.65 - Type 2 diabetes mellitus with hyperglycemia Category: Medical Qualifiers: Diabetes mellitus nursing home insulin use: with terminal operations manager use Qualified Code(s): E11.65 - Type 2 diabetes mellitus with hyperglycemia; Z79.4 - terminal operations manager (current) use of insulin Plan 74 year old female presenting for follow up A1C 7.7% infrequent hypoglycemia Will increase glipizide to 10mg daily. If she does experience increased hypoglycemia she is to call the office. She continues to improve diet and pursue weight loss Treat hypoglycemia by rules of 15s. Return for DM check in 3 months or sooner as needed Orders: Orders AMB Hemoglobin A1c Today E11.65 - Type 2 diabetes mellitus with hyperglycemia, Z79.4 - half-way (current) use of insulin Medications: New glipizide ER 10 mg PO DAILY 90 tabs 3RF glipizide ER 10 mg PO .q AM 90 tabs 3RF Discontinued glipizide ER Discontinued Reason: Doctor's Order 5 mg PO DAILY 90 tabs 3RF Coding Level of Care Code Est Pt Level 4 (16245) Diagnoses Type 2 diabetes mellitus with hyperglycemia, with long-term current use of insulin E11.65; Z79.4 Diabetes mellitus nursing home insulin use: with nursing home use
[2025-06-05 10:33] LABS: Glucose, Whole Blood 192 mg/dL (60-115)
== END 2025-06-05 10:51 | disposition home or self-care (01) ==
LOC: HO.ENCR 10:17
PROVIDERS: PCP Internal Medicine; Visit Provider Internal Medicine
DX: E11.65 Type 2 diabetes mellitus with hyperglycemia (principal); Z79.4 Long term (current) use of insulin

== ENCOUNTER → 2025-06-05 10:17 | Outpatient (BNVA) | payer OTHER, SELFPAY | PROVIDERS: PCP Internal Medicine; Visit Provider Internal Medicine | DX: E11.65 Type 2 diabetes mellitus with hyperglycemia (principal); Z79.4 Long term (current) use of insulin; Z79.84 Long term (current) use of oral hypoglycemic drugs | CPT/HCPCS: 82947; 83036; 99212 ==

== ENCOUNTER 2025-06-13 09:42 | Outpatient (AMB) | payer OTHER, SELFPAY ==
--- NOTE | 2025-06-13 09:49 | A.OFFVIS_ITS ---
Vital Signs 3 06/13/25 09:50 Height 5 ft 5 in Weight 178 lb 12.718 oz BMI 29.7 BP 118/58 L Blood Pressure Location Lt brachial Position Sitting Pulse 79 Pulse Source Pulse Oximeter Pulse Oximetry (%) 91 L Oxygen Delivery Method Room Air Intake Visit Reasons: MNG Intake Note: Patient present today for MNG follow up visit. Last seen Dr Chirinos a year ago Thyroid Function Tests: Completed on 02/05/2025 Rotor Balancer Required: No Accompanied by: Self / Same As Patient Allergies aspirin (ASPIRIN) Allergy (Severe, Verified 06/13/25 09:55) GI bleed, stomach upset ibuprofen (IBUPROFEN) Allergy (Severe, Verified 06/13/25 09:55) GI Bleed, stomach upset valsartan (From Diovan) Allergy (Severe, Verified 06/13/25 09:55) hives ziprasidone (From Geodon) Allergy (Severe, Verified 06/13/25 09:55) RASH-PALPITATIONS azithromycin Allergy (Intermediate, Verified 06/13/25 09:55) facial swelling metformin (METFORMIN) Allergy (Intermediate, Verified 06/13/25 09:55) NAUSEA & VOMITING, GI upset cephalexin (From KEFLEX) Allergy (Unknown, Verified 06/13/25 09:55) can't remember lisinopril Allergy (Unknown, Verified 06/13/25 09:55) cough NSAIDS (Non-Steroidal Anti-Inflamma (NSAIDS (NON-STEROIDAL ANTI-INFLAMMA) Adverse Reaction (Severe, Verified 06/13/25 09:55) HX OF GI BLEED tramadol (Ultram) Adverse Reaction (Severe, Verified 06/13/25 09:55) GI upset sulfamethoxazole (From Bactrim) Adverse Reaction (Intermediate, Verified 06/13/25 09:55) Hives tiotropium (From Spiriva with HandiHaler) Adverse Reaction (Intermediate, Verified 06/13/25 09:55) Unknown trimethoprim (From Bactrim) Adverse Reaction (Intermediate, Verified 06/13/25 09:55) Hives doxycycline Adverse Reaction (Mild, Verified 06/13/25 09:55) Stomach Upset HPI Comments Details: 73 YO F who is seen in F/U for NTMNG . Underwent biopsy of the right superior 2.9 cm dominant nodule on 04/25/2024, is here today for follow. She was last seen by Dr. Chirinos on Apr 2024. This is the first time I see this patient She also has a history insulin-dependent type 2 diabetes mellitus and follows in our office, last saw Dr. Marmolejo in May 2025. NTMNG: Had thyroid US which revealed large 2.0 cm R superior nodule. Underwent FNA of this nodule 05/10/19 with Benign ([place] Category II) cytology. Denies any compressive symptoms. Denies any history of head or neck irradiation. No history of thyroid cancer. US THYROID 12/18 showed a right mid/superior 2.9 cm nodule which is solid, isoechoic with punctate echogenic foci. Other subcentimeter nodules noted. This nodule has increased in size significantly compared to ultrasound in January of 2022. Given this is a TR 5 nodule, per ARTURO this is a high suspicion nodule with greater than 50% chance of malignancy, even though this has been biopsied before in 2019 with benign cytology we recommended biopsy significant change in size. Interval history Underwent FNA biopsy of the right superior 2.9 cm nodule on 04/25/2024, with cytology coming back as benign, [place] category 1. She also has a history of hypothyroidism, on levothyroxine 25 mcg daily. Most recent TSH from January 2024 was normal at 1.32. Does have constipation. She is complaining of excessive fatigue. Describes this this as new. Patient currently denies heat or cold intolerance, hair loss, palpitation, anxiety, weight changes, mood changes, changes in appearance of eyes or vision changes, tremors, increased diaphoresis or dry skin. ? Patient denies any difficulty swallowing, pain on swallowing or difficulty breathing. Feels like voice is deeper Is on O2 for COPD . Chronic active smoker, smokes 2 ppd . Patient denies any history of childhood neck radiation. Denies having ever used lithium, amiodarone or biotin supplements. Patient denies any family history of thyroid cancer or thyroid disease. Interval history: Follow-up for a thyroid nodule. Reports a previous biopsy last year was normal. Reports experiencing nocturnal hyperthermia for the past two to three months. This is a new symptom, as they were previously always cold. The sensation of being overheated occurs despite keeping the home temperature at 66?F to aid breathing. They also open their sliding door frequently to cool the room. They use an oxygen concentrator at 2 liters at night, and it was questioned if the oxygen flow could be contributing to the sensation of heat. Reports significant fatigue and exhaustion, with a lack of energy and motivation to do anything. Reports poor sleep, waking every one to two hours throughout the night. Denies any other associated symptoms. Physical exam: General: Well appearing. NAD. Neck/Thyroid: Thyroid palpable, irregular in right side. CV: RRR, no murmur. No edema. Resp:Lungs clear to auscultation bilaterally Abdomen: Soft, nontender. nondistended Extremities/Neuro: No weakness or tremor of outstretched hands Laboratory Tests 02/05/25 09:50 TSH 1.06 Free T4 1.13 Laboratory Tests 02/10/24 03/19/24 12:50 07:36 Creatinine 0.84 TSH 1.32 Free T4 1.01 US thyroid 04/29/25 FINDINGS: SIZE: Measurements of the thyroid lobes and nodules are given in sagittal, anteroposterior and transverse dimensions respectively. Right Thyroid Lobe: 6.2 x 2.6 x 2.3 cm, volume 17.3 mL. Previous: 6.2 x 3.0 x 2.6 cm, volume: 25.3 cc. Parenchyma: The gland echotexture is heterogeneous. Thyroid vascularity is normal. Left Thyroid Lobe: 3.8 x 1.6 x 1.1 cm, volume 3.2 mL. Previous: 4.2 x 1.7 x 1.4 cm, volume: 5.2 cc. Parenchyma: The gland echotexture is heterogeneous. Thyroid vascularity is normal. Isthmus: 0.7 cm in maximum AP dimension. Previous: 0.4 Estimated total number of nodules greater than or equal to 1 cm: 1. [employer] Con[employer] Operator nodules are described as follows: 1. Location: [Upper and Midportion right lobe. Size: 3.3 x 2.2 x 2.5 cm, volume 9.6 mL. Previous: 2.9 x 2.2 x 2.2 cm, volume: 7.3 cc. Nodule characteristics: Composition: Solid (2). Echogenicity: Isoechoic (1). Shape: Not taller than wide (0). Margins: Ill-defined (0). Echogenic Foci: Punctate echogenic foci (3). ACR TI-RADS total points: 6 ACR TI-RADS category: 4 2. Location: Lower pole, right lobe. Size: 0.6 x 0.5 x 0.7 cm, volume 0.1 mL. Previous: 0.5 x 0.5 x 0.6 cm, volume: 0.1 cc. Nodule characteristics: Composition: Solid (2). Echogenicity: Very hypoechoic (3). Shape: Not taller than wide (0). Margins: Smooth (0). Echogenic Foci: Punctate echogenic foci (3). ACR TI-RADS total points: 8 ACR TI-RADS category: 5 3. Location: [Upper, left lobe. Size: 0.6 x 0.2 x 0.4 cm, volume 0.03 mL. Previous: 0.6 x 0.2 x 0.3 cm, volume: 0.02 cc. Nodule characteristics: Composition: Solid (2). Echogenicity: Undetermined (1) Shape: Not taller than wide (0). Margins: Smooth (0). Echogenic Foci: None (0). ACR TI-RADS total points: 3 ACR TI-RADS category: 3 NODES: No lymphadenopathy is seen in the tissue surrounding the thyroid gland. IMPRESSION: ACR TI-RADS 4, 5, and 3. US THYROID 12/18 CLINICAL INFORMATION: Nontoxic multinodular goiter. COMPARISON: Ultrasound soft tissue head/neck thyroid dated 01/27/2023 and 02/18/2022. TECHNIQUE: Linear transducer grayscale and color Doppler examination with attention to the region of the thyroid. FINDINGS: SIZE: Measurements of the thyroid lobes and nodules are given in sagittal, anteroposterior and transverse dimensions respectively. Right Thyroid Lobe: 6.2 x 3.0 x 2.6 cm, volume 25.3 mL. Previously 5.8 x 2.6 x 2.4 cm, volume 18.9 mL. Parenchyma: The gland echotexture is homogeneous. Thyroid vascularity is normal. Left Thyroid Lobe: 4.2 x 1.7 x 1.4 cm, volume 5.2 mL. Previously 4.7 x 1.6 x 1.3 cm, volume 5.1 mL. Parenchyma: The gland echotexture is homogeneous. Thyroid vascularity is normal. Isthmus: 0.7 cm in maximum AP dimension. Previously 0.4 cm. Estimated total number of nodules greater than or equal to 1 cm: 1. [employer] Con[employer] Operator nodules are described as follows: 1. Location: Right superior/mid. Size: 2.9 x 2.2 x 2.2 cm, volume 7.3 mL. Previously: 2.9 x 2.2 x 1.9 cm, volume 6.2 mL on 01/27/2023 and 2.3 x 2.0 x 1.7 cm, volume 4.1 mL on 02/18/2022 Nodule characteristics: Composition: Solid (2). Echogenicity: Isoechoic (1). Shape: Taller than wide (3). Margins: Ill-defined (0). Echogenic Foci: Punctate echogenic foci (3). ACR TI-RADS total points: 9 Previous: 9 ACR TI-RADS category: 5 Previous: 5 Significant change in size (>/= 20% in 2 dimensions and minimal increase of 2 mm or 50% or greater increase in volume): Yes Change in features: No Change in ACR TI-RADS risk category: No 2. Location: Right inferior. Size: 0.5 x 0.5 x 0.6 cm, volume 0.1 mL. Previously: 0.6 x 0.4 x 0.6 cm, volume 0.1 mL. Nodule characteristics: Composition: Solid (2). Echogenicity: Very hypoechoic (3). Shape: Not taller than wide (0). Margins: Smooth (0). Echogenic Foci: Punctate echogenic foci (3). ACR TI-RADS total points: 8 Previous: 7 ACR TI-RADS category: 5 Previous: 5 Significant change in size (>/= 20% in 2 dimensions and minimal increase of 2 mm or 50% or greater increase in volume): No Change in features: Yes Change in ACR TI-RADS risk category: No 3. Location: Left superior. Size: 0.6 x 0.2 x 0.3 cm, volume 0.02 mL. Previously: 0.4 x 0.2 x 0.4 cm, volume 0.01 mL. Nodule characteristics: Composition: Solid (2). Echogenicity: Isoechoic (1). Shape: Not taller than wide (0). Margins: Smooth (0). Echogenic Foci: None (0). ACR TI-RADS total points: 3 Previous: 3 ACR TI-RADS category: 3 Previous: 3 Significant change in size (>/= 20% in 2 dimensions and minimal increase of 2 mm or 50% or greater increase in volume): Yes Change in features: No Change in ACR TI-RADS risk category: No NODES: No lymphadenopathy is seen in the tissue surrounding the thyroid gland. US/US thyroid IMPRESSION: Enlarged, multinodular thyroid gland. 2.9 x 2.2 x 1.9 cm, volume 6.2 mm right mid to upper TR5 thyroid nodule meets criteria for biopsy and has increased in size over time measuring 2.3 x 2.0 x 1.7 cm, volume 4.1 mL on 02/18/2022. Correlation with prior biopsy results and clinical exam recommended to determine further management including possible repeat biopsy. [facility] Medical History Respiratory failure with hypoxia Tobacco dependence Hypothyroid Macular degeneration Acute exacerbation of chronic obstructive pulmonary disease (COPD) Dermatitis of vulva Uses wheelchair Wears dentures Supplemental oxygen dependent Slow to wake up after anesthesia Lumbar spinal stenosis Smoker Nicotine dependence, cigarettes, uncomplicated Acute respiratory failure with hypoxia Vulvar ulcer Recurrent major depression-severe Lower extremity pain Sialoadenitis Jaw pain العلي (dyspnea on exertion) Chest pain Osteopenia (~2015) Sinus tachycardia Pulmonary nodule Menopausal state Artificial menopause state Constipation Nocturnal hypoxemia COPD (chronic obstructive pulmonary disease) Spinal stenosis Depression Vitamin D deficiency Multinodular thyroid HLD (hyperlipidemia) T2DM (type 2 diabetes mellitus) (~2008) Surgical History Hx of eye surgery History of cataract surgery S/P thyroid biopsy History of lithotripsy History of cardiac catheterization Hx of colonoscopy Hx of arthroscopy of left knee Hx of spinal fusion Hx of cholecystectomy Family History Father No problems noted. Mother Cancer Diabetes Social History Household Members: None Housing: Apartment Are you a primary memory care program director to a significant other at home: No Do you presently have visiting nurse or other home services: Yes Alcohol intake: never Comment: aware of trip hazard Patient Tobacco Use Status: Current everyday Tobacco user Smoking Start Date: 04/01/1964 Tobacco use type: Cigar Cigarette Packs Per Day: 0.5 Cigarettes Per Day: 8 Years Smoked: 60 e-Cigarette/Vaping Use: Currently Using Second Hand Smoke Exposure: No Advance Directives Date on File: 12/02/22 service: No Current occupational status: retired Sexual orientation: Straight/Heterosexual Cognitive needs: No Hearing needs: No Vision needs: Yes Female Reproductive History Menstrual Age of Menarche: 12 Physical Exam Vital Signs: Last Vital Signs Pulse 79 06/13/25 09:50 BP 118/58 L 06/13/25 09:50 Pulse Ox 91 L 06/13/25 09:50 Oxygen Delivery Method Room Air 06/13/25 09:50 BMI result Body Mass Index 29.7 Assessment & Plan Assessment & Plan (1) Multinodular thyroid: Comment: ([facility]) Code(s): E04.2 - Nontoxic multinodular goiter Category: Medical Plan: Patient with no history of head or neck radiation, with no family history of thyroid cancer with a history of nontoxic multinodular goiter diagnosed 2018, with a right superior/mid dominant nodule measuring 2.2 cm at the time with benign cytology. She had an ultrasound in 2021 which showed significant change in the size of the nodule which now measures up to 2.9 cm in size. US THYROID 12/18 I reviewed the images myself that showed a right mid/superior 2.9 cm nodule which is solid, isoechoic with punctate echogenic foci. Other subcentimeter nodules noted. This nodule has increased in size significantly compared to ultrasound in January of 2022. Given this is a TR 5 nodule, per ARTURO this is a high suspicion nodule with greater than 50% chance of malignancy, even though this has been biopsied before in 2019 with benign cytology we recommended repeat biopsy get given significant change in size. Comparing current vs prior size: 2.9 ? 2.2 ? 2.2 cm ? 3.3 ? 2.2 ? 2.5 cm, largest dimension increase: ~14%, volume increase: ~31%. She does not >=0% increase in >= dimensions OR >=0% volume increase. hence FNA is not indicated. We will recommend 1 year follow up US. The risk of malignancy is low at approximately 3% given the benign nature of the previous biopsy, but it is not zero. Plan Plan is for a repeat thyroid ultrasound in one year. If there is further significant growth at that time, a repeat biopsy may be indicated. 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 Currently on levothyroxine 25 mcg daily. She does report some excessive new fatigue. Most recent TSH from January 2024 within normal limits. 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
[2025-06-13 09:50] VITALS: BP 118/58; PULSE 79; O2SAT 91; BMI 29.7
== END 2025-06-13 10:19 | disposition home or self-care (01) ==
LOC: HO.ENCR 09:43
PROVIDERS: PCP Internal Medicine; Visit Provider Student in an Organized Health Care Education/Training Program
DX: E04.2 Nontoxic multinodular goiter (principal); E06.3 Autoimmune thyroiditis
CPT/HCPCS: 99214; G2211

== ENCOUNTER → 2025-06-13 09:42 | Outpatient (BNVA) | payer OTHER, SELFPAY | PROVIDERS: PCP Internal Medicine; Visit Provider Student in an Organized Health Care Education/Training Program | DX: E04.2 Nontoxic multinodular goiter (principal); E06.3 Autoimmune thyroiditis; Z79.899 Other long term (current) drug therapy | CPT/HCPCS: 99212 ==

== ENCOUNTER 2025-06-21 08:26 | Outpatient (AMB) | payer OTHER, SELFPAY ==
[2025-06-21 08:29] VITALS: BP 120/62; PULSE 88; TEMP 36.2; O2SAT 92; BMI 30.1
--- NOTE | 2025-06-21 08:29 | A.OFFPC_ITS ---
Vital Signs 06/21/25 08:29 Height 5 ft 5 in Weight 180 lb 12.465 oz BMI 30.1 BP 120/62 Blood Pressure Location Lt brachial Position Sitting Pulse 88 Pulse Source Pulse Oximeter Temp 97.1 F Temp Source Temporal Artery Scan Pulse Oximetry (%) 92 Oxygen Delivery Method Room Air Intake Visit Reasons: follow up, resched Allergies aspirin (ASPIRIN) Allergy (Severe, Verified 06/21/25 08:29) GI bleed, stomach upset ibuprofen (IBUPROFEN) Allergy (Severe, Verified 06/21/25 08:29) GI Bleed, stomach upset valsartan (From Diovan) Allergy (Severe, Verified 06/21/25 08:29) hives ziprasidone (From Geodon) Allergy (Severe, Verified 06/21/25 08:29) RASH-PALPITATIONS azithromycin Allergy (Intermediate, Verified 06/21/25 08:29) facial swelling metformin (METFORMIN) Allergy (Intermediate, Verified 06/21/25 08:29) NAUSEA & VOMITING, GI upset cephalexin (From KEFLEX) Allergy (Unknown, Verified 06/21/25 08:29) can't remember lisinopril Allergy (Unknown, Verified 06/21/25 08:29) cough NSAIDS (Non-Steroidal Anti-Inflamma (NSAIDS (NON-STEROIDAL ANTI-INFLAMMA) Adverse Reaction (Severe, Verified 06/21/25 08:29) HX OF GI BLEED tramadol (Ultram) Adverse Reaction (Severe, Verified 06/21/25 08:29) GI upset sulfamethoxazole (From Bactrim) Adverse Reaction (Intermediate, Verified 06/21/25 08:29) Hives tiotropium (From Spiriva with HandiHaler) Adverse Reaction (Intermediate, Verified 06/21/25 08:29) Unknown trimethoprim (From Bactrim) Adverse Reaction (Intermediate, Verified 06/21/25 08:29) Hives doxycycline Adverse Reaction (Mild, Verified 06/21/25 08:29) Stomach Upset Medication List - Last Reconciled 06/21/25 by Chiquis Grajeda MD acetaminophen 1,000 mg (2 x 500 mg) PO TID PRN albuterol sulfate 90 mcg/actuation 2 puffs inhalation Q4H PRN 60 days aripiprazole 20 mg PO DAILY atorvastatin 40 mg PO BEDTIME brimonidine 0.15% 1 drp ophthalmic (eye) BID cholecalciferol (vitamin D3) 50 mcg PO BEDTIME clonazepam 0.5 mg PO BID PRN cyanocobalamin (vitamin B-12) (Vitamin B-12) 500 mcg PO DAILY 90 days doxepin 3 mg PO BEDTIME [dressing stick As directed] [easy on sock aid As directed] esomeprazole magnesium 40 mg PO QPM 90 days fenofibrate 160 mg PO DAILY flash glucose sensor (FreeStyle Jill 2 Sensor kit) As directed fluticasone propion-salmeterol 250-50 mcg/dose (Advair Diskus) 1 inh inhalation BID glipizide ER 5 mg PO .q AM guaifenesin ER (Mucinex) 600 mg PO BID Jardiance (empagliflozin) 25 mg PO DAILY NS levothyroxine 25 mcg PO QAM mirtazapine mg PO netarsudil-latanoprost 0.02-0.005 % (Rocklatan) 1 drp ophthalmic (eye) BEDTIME [new lift chair As directed] pen needle, diabetic (Comfort EZ Pen [place]) As directed injects 3 X/day pioglitazone (Actos) 30 mg PO BEDTIME sennosides (senna) 8.6 mg PO BEDTIME PRN 90 days Shower Chair As directed [Transfer wheelchair As directed] vit C,X-Te-qtqbm-lutein-zeaxan 250-90-40-1 mg (PreserVision AREDS-2) 1 cap PO BID [WHEELCHAIR As directed] Tobacco use date assessed: 06/21/25 Fall risk assessment: No Falls in past year Last assessed Fall Risk: 06/21/25 Dental Screening Dental Screen Date: 06/21/25 Did you have a dental visit in the last 12 months?: No Did you have a dental problem in the last 6 months where you did not have access to dental care?: No Was dental information given to patient?: No HPI follow up, resched HPI Details L eye macular hole, blurry vision s/p sugery but did not have a pleasant experience. for the urogynecology was given a pill and intravaginal cream. for the DM stopped insulin HPI Comments History of Present Illness Details History of Present Illness The patient is a 74 year old female presenting for a follow-up visit for management of multiple chronic conditions. Her medical history is significant for obesity, lumbar spinal stenosis, osteopenia with the last bone density scan in 2020, recurrent depression, hypercholesterolemia, COPD as a current smoker, lumbar post-laminectomy syndrome, and diabetes mellitus. She recently had eye surgery for a macular hole in her left eye, after which her vision has remained blurry. Regarding her diabetes, she uses a continuous glucose monitor. Her medication regimen previously included Actos 30 mg, Jardiance 25 mg, glipizide 5 mg, Tresiba 44 units, and a Novolog sliding scale, though she reports she has stopped taking insulin. Her last hemoglobin A1c was 7.7% and is now 7.8%. An attempt to increase glipizide to 10 mg resulted in nocturnal hypoglycemia with glucose levels dropping to the 60s, so she reverted to 5 mg. She is followed by endocrinology for hypothyroidism and a multinodular goiter. A thyroid ultrasound in April last year showed bilateral nodules which have grown slightly. The plan from endocrinology is to repeat the ultrasound in a year and consider a biopsy if there is significant growth. For cardiovascular health, she sees cardiology for bradycardia and hypercholesterolemia. An echocardiogram in February 2025 showed an EF of 55-60% with impaired relaxation and normal valves. Her LDL was at goal of 70 in January 2025 on atorvastatin, but her triglycerides were elevated at 223. Her pulmonary history includes COPD, and she continues to smoke 8-10 cigarettes per day. A repeat chest CT scan in February 2025 showed resolution of previously seen multiple small pulmonary nodules. She is managed on Advair, albuterol, and Mucinex and is advised for yearly CT surveillance and smoking cessation. She recently saw urogynecology for vulvar itching and was diagnosed with a yeast infection. She was prescribed an oral antifungal and a hormone cream. She reports ongoing pain in her feet, consistent with diabetic neuropathy, and back pain. She found gabapentin to be ineffective and she self-discontinued it. For mental health and sleep, she takes mirtazapine, clonazepam, and doxepin. She does not take her prescribed quetiapine due to concerns about weight gain. She also reports increasing forgetfulness and has a sister with dementia. In terms of health maintenance, the patient has declined mammograms and colonoscopies. She received her flu and RSV vaccines but has declined the shingles vaccine. Health Maintenance The patient has declined a repeat bone density scan, mammogram, and colonoscopy. She has also declined the shingles vaccine but is up to date on flu and RSV immunizations. Discussion included the importance of staying active, maintaining hydration, and healthy eating. Social History - Tobacco Use: The patient is a current smoker, consuming 8-10 cigarettes per day. - Living Situation: She receives assista nce from aides at home and identifies as independent. - Nutritional Intake: The patient report s she is not eating well and has lost 22 pounds, partly due to her aide not cooking. - Family History: Her sister has dementi a. Results - Labs: - Hemoglobin A1c: 7.8% (current), 7.7% ( May). - Lipid Panel (January 2025): LDL 70 mg/d L, Triglycerides 223 mg/dL. - Complete Blood Count (November): Normal wi th no anemia. - Urinalysis: No proteinuria. - Imaging: - Echocardiogram (February 2025): EF 55 -60%, impaired relaxation, normal valves. - Chest CT scan (February 2025): No nod ules noted, stable from prior. - Thyroid Ultrasound (April): Bilater al nodules with slight interval growth. - Bone Density Scan (2020): Osteopenia. [facility] Medical History Respiratory failure with hypoxia Tobacco dependence Hypothyroid Macular degeneration Acute exacerbation of chronic obstructive pulmonary disease (COPD) Dermatitis of vulva Uses wheelchair Wears dentures Supplemental oxygen dependent Slow to wake up after anesthesia Lumbar spinal stenosis Smoker Nicotine dependence, cigarettes, uncomplicated Acute respiratory failure with hypoxia Vulvar ulcer Recurrent major depression-severe Lower extremity pain Sialoadenitis Jaw pain العلي (dyspnea on exertion) Chest pain Osteopenia (~2015) Sinus tachycardia Pulmonary nodule Menopausal state Artificial menopause state Constipation Nocturnal hypoxemia COPD (chronic obstructive pulmonary disease) Spinal stenosis Depression Vitamin D deficiency Multinodular thyroid HLD (hyperlipidemia) T2DM (type 2 diabetes mellitus) (~2008) Surgical History Hx of eye surgery History of cataract surgery S/P thyroid biopsy History of lithotripsy History of cardiac catheterization Hx of colonoscopy Hx of arthroscopy of left knee Hx of spinal fusion Hx of cholecystectomy Family History Father No problems noted. Mother Cancer Diabetes Social History Household Members: None Housing: Apartment Are you a primary rn care manager to a significant other at home: No Do you presently have visiting nurse or other home services: Yes Alcohol intake: never Comment: aware of trip hazard Patient Tobacco Use Status: Current everyday Tobacco user Smoking Start Date: 04/01/1964 Tobacco use type: Cigar Cigarette Packs Per Day: 0.5 Cigarettes Per Day: 8 Years Smoked: 60 e-Cigarette/Vaping Use: Never Used Second Hand Smoke Exposure: No Advance Directives Date on File: 12/02/22 service: No Current occupational status: retired Sexual orientation: Straight/Heterosexual Cognitive needs: No Hearing needs: No Vision needs: Yes Female Reproductive History Menstrual Age of Menarche: 12 Questionnaire PHQ-9 Over the last 2 weeks, how often have you been bothered by any of the following problems? 1. Little interest or pleasure in doing things: not at all 2. Feeling down, depressed, or hopeless: not at all 3. Trouble falling or staying asleep, or sleeping too much: not at all 4. Feeling tired or having little energy: not at all 5. Poor appetite or overeating: not at all 6. Feeling bad about yourself - or that you are a failure or have let yourself or your family down: not at all 7. Trouble concentrating on things, such as reading the newspaper or watching television: not at all 8. Moving or speaking so slowly that other people could have noticed. Or the opposite - being so fidgety or restless that you have been moving around a lot more than usual: not at all 9. Thoughts that you would be better off or of hurting yourself in some way: not at all Total score: 0 Source: Developed by Drs. Masoud Gomez, Desi Mabry, George Cates and colleagues, with an educational zoila from [employer]. Thrive Questionnaire Date Thrive assessed: 12/06/24 I am a: Patient What is your living situation today?: I have a steady place to live Within the past 12 months, did the food you bought not last and you didn't have the money to get more?: Never true Within the past 12 months, did you worry whether your food would run out before you got money to buy more?: Never true Do you have trouble paying for medicines?: No Do you have trouble getting transportation to medical appointments?: No Do you have trouble paying your heating and electricity bill?: No Do you have trouble taking care of your child, family member or friend?: No Do you have trouble with day-to-day activities such as bathing, preparing meals, shopping, managing finances, etc.?: No Are you currently unemployed and looking for a job?: Yes Are you interested in more education?: No Please select the resources that you would like help with: None Currently or been in a relationship where the following occur: No concerns reported THRIVE Score: 0 AUDIT C Alcohol Use Questionnaire (AUDIT-C) 1. How often do you have a drink containing alcohol?: Never 3. How often do you have six or more drinks on one occasion?: Never Total Score: 0 GABRIELE-7 AMB Questionnaire GABRIELE-7 Date GABRIELE - 7 assessed: 12/06/24 Feeling nervous, anxious, or on edge: 0 = Not at all Not being able to stop or control worryin = Not at all Worrying too much about different things: 0 = Not at all Trouble relaxin = Not at all Being so restless that it is hard to sit still: 0 = Not at all Becoming easily annoyed or irritable: 0 = Not at all Feeling afraid as if something awful might happen: 0 = Not at all Total GABRIELE-7 score (0-4 normal; 5-9 mild; 10-14 moderate; 15-21 severe): 0 Source: Developed by Drs. Masoud Gomez, Desi Mabry, George Cates and colleagues, with an educational zoila from [employer]. Review of Systems Narrative Review of Systems - Constitutional: Reports fatigue, exhaustion, and poor sleep with frequent nocturnal awakenings. - Eyes: Reports blurry vision in the left eye status post macular hole surgery. - Genitourinary: Reports vulvar itching. - Musculoskeletal: Reports pain in her feet and back. - Neurological: Reports increased forgetfulness. - Psychiatric: Reports feeling emotionally exhausted and indifferent about her health. Physical exam (Primary Care) Vital Signs: Last Vital Signs Temp 97.1 F 06/21/25 08:29 Pulse 88 12/26/25 08:29 BP 120/62 06/21/25 08:29 Pulse Ox 92 06/21/25 08:29 Oxygen Delivery Method Room Air 06/21/25 08:29 BMI result Body Mass Index 30.1 Tobacco/Smoking Status: Tobacco use Status Tobacco use date assessed 06/21/25 06/21/25 08:35 Patient Tobacco Use Status Current everyday Tobacco 06/21/25 08:35 Tobacco use type Cigar 06/21/25 08:35 e-Cigarette/Vaping Use Never Used 06/21/25 08:35 PHQ-9: PHQ-9 Score PHQ-9: Total score 0 06/21/25 08:55 Thrive Assessment: Date of Thrive Assessment Date Thrive assessed 12/06/24 06/21/25 08:35 Currently or been in a relationship where the following occur: No concerns reported Narrative Physical Exam - General: 74-year-old obese female. - Respiratory: Wheezing and tightness heard on auscultation. 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 insulin use: with alf use Hyperlipidemia, unspecified hyperlipidemia type E78.5 Hyperlipidemia type: unspecified 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 Hemoglobin A1c goal of less than 7.0. Patient is being seen by Endocrinology increase glipizide to 10 mg once a day on Jardiance 25 mg once a day pioglitazone 30 mg once a day. Has the continuous glucose monitor to check the sugars for better management (2) HLD (hyperlipidemia): Code(s): E78.5 - Hyperlipidemia, unspecified Category: Medical Qualifiers: Hyperlipidemia type: unspecified Qualified Code(s): E78.5 - Hyperlipidemia, unspecified Plan: Avoid fried foods, chicken skin, eggs, butter margarine, pastries and meat. Be it pork or beef they have a lot of cholesterol LDL goal of less than 100 and triglyceride of less than 150 cardiology wants it less than 70 patient at goal January 2025 (3) Hypothyroid: Code(s): E03.9 - Hypothyroidism, unspecified Category: Medical Qualifiers: Hypothyroidism type: due to Maulik's thyroiditis Qualified Code(s): E06.3 - Autoimmune thyroiditis Plan: Continue with thyroid medication (4) Osteopenia: Onset Date: ~2015 Comment: (Bone Dexa T-score: -1.7 lumbar - 03/2021) Code(s): M85.80 - Other specified disorders of bone density and structure, unspecified site Category: Medical Plan: Discussed about repeating bone density (5) GERD (gastroesophageal reflux disease): Code(s): K21.9 - Gastro-esophageal reflux disease without esophagitis Category: Medical Qualifiers: Esophagitis presence: without esophagitis Qualified Code(s): K21.9 - Gastro-esophageal reflux disease without esophagitis Plan: Avoid the foods that causes that usually spicy foods, tomato products, juices, coffee, soda and foods that your sensitive to. After eating do not lie down, allow 3-4 hours before in lie down. And keep the head of bed above 30 degrees to avoid the acid from going up. (6) Vulvar lesion: Comment: post fourchette leukoplakia Code(s): N90.89 - Other specified noninflammatory disorders of vulva and perineum Category: Medical Plan: Patient has met with Gynecology as well as the urogynecology female hormones requested (7) Postlaminectomy syndrome, lumbar: Code(s): M96.1 - Postlaminectomy syndrome, not elsewhere classified Category: Medical Plan: Patient is advised to continuously being active (8) COPD (chronic obstructive pulmonary disease): Comment: Long-time chronic obstructive pulmonary disease, moderately severe,, controlled and stable. At present she has mild intermittent cough and some wheezing especially in the morning and when she walks around. Code(s): J44.9 - Chronic obstructive pulmonary disease, unspecified Category: Medical Qualifiers: COPD type: emphysema Emphysema type: unspecified Qualified Code(s): J43.9 - Emphysema, unspecified Plan: Continue with the inhalers patient is followed up by Pulmonary advised strongly to stop smoking! (9) Smoker: Comment: Patient is a lifelong smoker. Has tried to quit smoking many times, but has not been able to quit complete. Her smoking goes up to 1 and half pack a day and then she can cut down to half p ack a day, depending upon levels of her anxiety. Since her admission 2 weeks ago she has cut down to 10 cigarettes a day. Code(s): F17.200 - Nicotine dependence, unspecified, uncomplicated Category: Social Hx Plan: Patient is advised to stop smoking! Plan Plan Patient was informed and verbally consented to the use of an ambient scribe for clinic note documentation during this visit. 1. Type 2 Diabetes Mellitus The patient's hemoglobin A1c is 7.8%, which is above the goal of less than 7.0%. She reports nocturnal hypoglycemic episodes when taking glipizide 10 mg. The plan is to decrease her glipizide dose back to 5 mg once daily to prevent hypoglycemia, and a prescription has been sent. She will continue Jardiance 25 mg and pioglitazone 30 mg daily. The patient was counseled that Jardiance can increase the risk of urinary tract infections. She will continue to use her continuous glucose monitor for management. 2. Chronic Obstructive Pulmonary Disease And Tobacco Use Disorder Physical exam revealed wheezing. The patient will continue her current inhalers, including Advair. She was again strongly advised to quit smoking and will continue with yearly chest CT scans as recommended by pulmonology. 3. Neuropathic Pain And Chronic Back Pain The patient reports foot and back pain, with gabapentin being ineffective for her neuropathic foot pain. It was explained that tramadol is not for nerve pain and that improved glycemic control is crucial for her symptoms. It was recommended that she try [id number] Aspercreme with lidocaine topically before considering other systemic medications. 4. Cognitive Impairment The patient reports increasing forgetfulness and is concerned due to a family history of dementia. A referral to neurology for further evaluation was offered and accepted. 5. Medication Refill And Management The patient requested and received a refill for Senna, which was sent to her preferred pharmacy. She reports not taking her prescribed Seroquel (quetiapine) due to concerns about weight gain. Discussion Notes I reviewed the patient's extensive history and recent follow-ups with her specialists. We discussed her diabetes, noting her A1c remains elevated at 7.8%. Due to her reports of hypoglycemia on glipizide 10 mg, I agreed to reduce her dose back to 5 mg and sent a new prescription. I cautioned her that Jardiance can increase the risk of urinary tract infections and advised her to notify me if symptoms occur. We addressed her neuropathic foot and back pain. I explained that tramadol is not appropriate for nerve pain and recommended she first try an [id number]-kxr-[id number] topical, Aspercreme with lidocaine. I emphasized that improving her blood sugar control is the most important step for treating her diabetic neuropathy. The patient expressed concerns about increasing forgetfulness. Given her concerns and family history, I recommended a referral to neurology, to which she agreed. I strongly advised her again to stop smoking, reinforcing its negative impact on her COPD. We also reviewed her health maintenance status, acknowledging her decision to decline a mammogram, colonoscopy, and bone density scan. She requested a refill for Senna, which I sent to her preferred pharmacy. I also addressed her difficulty in contacting the office and explained our communication procedures. Patient Instructions - Your dose of glipizide has been lowered to 5 mg once a day to prevent your blood sugar from dropping too low. A new prescription has been sent to your pharmacy. - Continue taking your other medications for diabetes, cholesterol, and your thyroid as prescribed. - For your foot pain, please try using an tkqd-ofo-pqvlyxq cream called Aspercreme with lidocaine. - Better control of your blood sugar is the best way to help the nerve pain in your feet. - A referral will be made for you to see a neurologist, a specialist in brain and nerve issues, to evaluate your memory concerns. - It is very important that you try to quit smoking. This is making your breathing condition worse. - Continue to use your inhalers as directed by your lung doctor. - We have sent a refill for your Senna medication to [facility]. - Please let the office know if you develop symptoms of a urinary tract infection, such as burning when you urinate. Medications: Changed From glipizide ER 10 mg PO .q AM 90 tabs 3RF To glipizide ER 5 mg PO .q AM 90 tabs 1RF Refilled sennosides (senna) 8.6 mg PO BEDTIME PRN 180 tabs 3RF constipation 90 days
--- OUTSIDE RECORDS SUMMARY | 2025-06-21 08:29 | XMS_ITS | Clinical Summary ---
Author Organization [facility] Address [address] [place] [address] Care Team Providers Care Wood Calker Name Role Phone Chiquis Grajeda MD Primary Care Provider [phone] Allergies Active Allergy Reactions Criticality Noted Date [...] 99 mg/dL 07/25/2023 8:26 AM EST [facility] Comment:Fasting: <100 mg/dL, Non-Fasting: <200 mg/dL (ADA 2005) Blood Urea Nitrogen (BUN) 12 8 - 21 mg/dL 07/25/2023 8:26 AM EST [facility] Creatinine 0.6 0.4 - 1.1 mg/dL 07/25/2023 8:26 AM [facility] eGFR >90 >59 07/25/2023 8:26 AM [facility] Comment:CKD-EPI (2020) in mL /min/1.73 sq meters. Sodium 142 136 - 145 mmol/L 07/25/2023 8:26 AM [facility] Potassium 4.0 3.4 - 5.3 mmol/L 07/25/2023 8:26 AM [facility] Chloride 103 98 - 107 mmol/L 07/25/2023 8:26 AM [facility] CO2 25 22 - 33 mmol/L 07/25/2023 8:26 AM [facility] Calcium 9.3 8.7 - 10.5 mg/dL 07/25/2023 8:26 AM [facility] Alkaline Phosphatase 62 32 - 122 U/L 07/25/2023 8:26 AM [facility] Aspartate Aminotrans (AST) 57(H) 10 - 50 U/L 07/25/2023 8:26 AM [facility] Alanine Aminotrans (ALT) 36 10 - 50 U/L 07/25/2023 8:26 AM [facility] Bilirubin, Total 0.6 0.2 - 1.0 mg/dL 07/25/2023 8:26 AM [facility] Protein, Total 5.8(L) 6.3 - 8.3 g/dL 07/25/2023 8:26 AM [facility] Albumin 3.4 3.4 - 4.8 g/dL 07/25/2023 8:26 AM [facility] BUN/Creatinine Ratio 20 10.0 - 25.0 Ratio 07/25/2023 8:26 AM [facility] Globulin 2.4 1.5 - 3.9 g/dL 07/25/2023 8:26 AM [facility] Albumin/Globulin Ratio 1.4 1.0 - 3.0 Ratio 07/25/2023 8:26 AM [facility] Anion Gap 14 7 - 17 07/25/2023 8:26 AM [facility] Blood specimen (specimen) (Plasma/Serum) 07/25/2023 6:49 AM EST 07/25/2023 6:56 AM EST us Mary Mason DO LAB BLOOD ORDERABLES Final Resul t Performing Organization Address [facility] Co de Phone Number [address] [address], [address] [address] * (ABNORMAL) HEMOGLOBIN A1C WITH ESTIMATED AVERAGE [...] Tony DO LAB [place] [address], [place] [address] from Last 3 Months or Most Recently Relevant to Health Maintenance Insurance MEDICARE PART A & B MEDICAID OUT OF STATE [facility] [place] PART A & B [facility] MEDICARE OUT OF NETWORK Advance Directives * DNR (Latest Code Status on File) Date Activated Date Inactivated Comments 07/21/2023 5:56 PM DNR/ DNI Question Answer Comments Decision thoroughly discussed with: Patient * Full Code Date Activated Date Inactivated Comments 07/21/2023 6:54 AM 07/21/2023 5:56 PM Care Teams Wood Calker Relationship Specialty Start Date End Date Chiquis Grajeda MD [address] [place] [address] [place] [address] PCP - General Internal Medicine 07/21/23
--- OUTSIDE RECORDS SUMMARY | 2025-06-21 08:29 | XMS_ITS | Data Portability ---
Author Organization mylearnadfriend, [facility] [employer] [facility] Address [address] [place] [address] Care Team Providers Care Cloth Mercerizing Supervisor Name Role Phone KALA FIERRO Primary Care Provider HIM CCA OTHER Assessment Encounter Date Assessment Date Assessment LastModified by Organization Details LastModified Time 01/25/2022 01/25/2022 I have reviewed and agree with the assessment and plan as documented by the industrial rehabilitation consultant. I provided real-time medical direction for this [...] Assessment and Plan as documented by the Boss Miner. Patient given the opportunity to ask questions. Advised if develops CP/severe SOB/turning blue/uncontrolle d n/v/d or black/bloody emesis or stool/ AMS/ syncope/ hi fever to call 911- verbalized understanding of instructions [email or web address] Not available 02/23/2023 11:45:02 09/25/2024 09/25/2024 I provided real -time medical direction via phone for this encounter, and was available for additional phone based assistance as needed. I have reviewed and agree with the Assessment and Plan as documented by the Boss Miner. We discussed the diagnostic uncertainty of home [...] verbalized understanding of instructions to the medic. [email or web address] Not available 09/25/2024 16:00:31 Plan of Treatment Reminders Order Date Submit Date Provider Last Modified By Organization Details Last Modified Time Details Appointments None recorded. Lab urinalysis, dipstick 2024 025 [facility], [address] [place] [address], [phone] 5 07:53:38 rapid SARS CoV 2 Ag, QL IA, respiratory specimen 2022 023 [email or web address] 0 [facility], [address] [place] [address], [phone] 3 11:00:43 rapid flu (A+B) 2022 023 [email or web address] 0 [facility], [address] [place] [address], [phone] 3 11:00:43 BMP, serum or plasma 2022 023 [email or web address] 0 [facility], [address] [place] [address], [address] 3 13:32:46 Referral None recorded. Procedures None recorded. Surgeries None recorded. Imaging electrocard iogram 2024 025 [facility] [address] [place], [address] 5 16:39:35 Medication Orders prednisone 20 mg tablet 2024 025 [email or web address] 0 [facility] #0614, [address] [place], [address], 5 15:41:55 cyclobenzap rine 5 mg tablet 2024 025 [facility] #0608, [address] [place], [address], 5 15:49:51 prednisone 20 mg tablet 2024 025 [id number] [address] [place], [address], 5 15:49:51 prednisone 20 mg tablet 2022 023 [id number], [address] [place], [address], 3 11:44:47 prednisone 20 mg tablet 2022 023 [email or web address] 0 [id number] [address] [place], [address], 3 11:44:43 molnupiravi r 200 mg capsule (EUA) 2022 023 [id number] [address] [place], [address], 3 11:44:46 Anbesol (benzocaine ) 10 % oral mucosal liquid 2021 022 [id number] [address] [place], [address], 2 20:01:49 Patient TargetsNo targets recorded. Patient InstructionsNo instructions recorded. Reason for Referral None Reported. Results Created Date Observation Date Name Description Value Unit Range Abnormal Flag Note LastModifiedBy Organization Detail LastModifiedTime 02/24/2002/23/2023 BMP, serum or plasm a BUN 8 Not Available [facility] [address] [place] [address], [phone] 02/23/2023 11:45:10 02/24/20 23 02/23/2023 BMP, serum or plasm a Ca Ionize d calciu m 1.18 Not Available Main - Inst ed [address] [place] [address], [phone] 02/23/2023 11:45:10 02/24/2002/23/2023 BMP, serum or plasm a CI- 98 Not Available Main - Ins [address], [address] [place] [address] 02/23/2023 11:45:10 02/24/2002/23/2023 BMP, serum or plasm a CRE 0.7 Not Available Main - Ins [address], [address] [place] [address] 02/23/2023 11:45:10 02/24/20 23 02/23/2023 BMP, serum or plasm a GLU 187 after OJ Not Available [facility] ed [address] [place] [address], [address] [place] [address] 02/23/2023 11:45:10 02/24/20 23 02/23/2023 BMP, serum or plasm a K+ 3.8 Not Available Main - Ins [address], [address] [place] [address] 02/23/2023 11:45:10 02/24/20 23 02/23/2023 BMP, serum or plasm a Na+ 143 Not Available Main - Ins [address], [address] [place] [address] 02/23/2023 11:45:10 02/24/20 23 02/23/2023 BMP, serum or plasm a tCO2 25 Not Available [facility] - [address], [address] [place] [address] 02/23/2023 11:45:10 02/24/2002/23/2023 rapid flu (A+B) Flu negati ve Not Available [facility] ed [address] [place] [address], [address] [place] [address] 02/23/2023 10:58:20 02/24/2002/23/2023 rapid SARS CoV 2 Ag, QL IA, respi rator y speci men rapid SARS CoV 2 Ag, QL IA, respiratory specimen positi ve Not Available [facility] ed [address] [place] [address], [address] [place] [address] 02/23/2023 10:58:11 09/26/1909/25/2024 elect khanh diogr am No observ ation record ed. [email or web address] [facility] [address] [place] [address], [address] [place] [address] 09/26/2024 07:53:58 Result Notes None recorded. Medical Equipment None Reported. Allergies Allergen ID Allergen Name Allergen Category Reaction Reaction Severity Criticality Documentation Date Start Date Code Code System Note Provider Name and Address Organization Details Recorded Time 89210 Non-stero idal anti-infl ammatory agent (substanc e) medicatio n Not available Not available Not available 09/25/2024 20363 5008 SNOMED Not Available [facility] - production 5 11:35:33 3135 ibuprofen medicatio n Not available Not available Not available 02/23/2023 5640 RxNorm Not Available [facility] - production 5 11:35:33 3136 aspirin medicatio n Not available Not available Not available 02/23/2023 1191 RxNorm Not Available [facility] - production 5 11:35:33 3137 Ultram medicatio n Not available Not available Not available 02/23/2023 92323 6 RxNorm Sally Blancas MD [address] [place] [address],[address], [place], [address], [employer] 3 10:59:42 3138 Geodon medicatio n Not available Not available Not available 02/23/2023 73748 4 RxNorm Sally Blancas MD [address] [place] [address],[address], [place], [address], [employer] 3 10:59:47 Medications Name Sig Start Date [...] Updated DateTime 5 90 % 97.4 [degF] 80829.8 88 g 82 /min 167.64 cm 18 [...] 3084 Maryam Acevedo MD Main - instED [address] [place] [phone] 01/25/2022 19:51:49 03/03/2022 12:49:36 Aphthous ulcer of mouth 897772082 K12.0 48956 Sally Blancas MD Main - instED [address] [place] [phone] 02/23/2023 10:50:46 02/23/2023 23:49:31 Acute exacerbation of chronic obstructive pulmonary disease 409434390 J44.1 Offered patient nebulizer she declines. She does have a nebulizer at home/ duoneb meds at [facility] but will not use because [...] to symptom onset) and her PCP COVID-19 054015111 U07.1 Reviewed meds with the patient and [...] pat states prednisone helps cough in past [address] Sally Blancas MD Main - inst[facility] [address] [place] [address] 09/25/2024 15:38:46 09/25/2024 19:44:24 Chronic back pain 303768968 G89.29 w/ acute exacerbati on Patient has [...] to affected area low back Urinary symptoms 3362984 08 R39.9 bs was 105 this morning [...] sf fluids Chronic ob structive pulmonary disease 83501774 J44.9 Offered patient nebulizer due to rhonchi [...] a lung scan soon Intermitte nt palpitations 673167469 R00.2 Towards the end of the visit [...] Kingsley Member ID Guarantor Name 02/23/2023 1 [facility] - DOS PRIOR TO 2022 - DUAL ELIGIBLE (MEDICARE REPLACEMENT/ADV ANTAGE - HMO) Sofiya Rivas [id number] Sofiya Rivas 09/25/2024 1 [facility] - DOS ON OR AFTER 2022 - DUAL ELIGIBLE - NURSING HOME OPTIONS AND ONE CARE (MEDICARE REPLACEMENT/ADV ANTAGE - HMO) Sofiya Rivas [id number] Sofiya Rivas Notes Date Note Type Note [...] Protocol-Based Disposition: Consider bessieED, RADHA Community clinician, MD/FERRYBOAT PILOT triage, PCP, or Urgent Care Visit within 4 Hours ..................... ..................... ..................... ..................... ..................... ..................... ............... CRC Nursing Assessment: Comments: CRC Rn did not need further info to process visit Maryam Acevedo MD [address] [facility],[address], [place], [address], [employer] 01/25/2022 20:01:58 02/23/2023 text/html ROS as noted [...] ..................... ..................... ..................... ..................... ..................... ..................... ............... Boss Miner Note From Carlos Stuart: Per CRC: Member [...] is positive. Flu a/b negative, following called [facility] with report. P: [facility] Dr. Blancas was called and [...] up with PCP tomorrow. Red flags discussed [facility] clear. [facility] Lab Orders: rapid SARS CoV 2 Ag, QL IA, respiratory specimen: Performed rapid flu (A+B): Performed BMP, serum or plasma: Performed [facility] Medication Orders: prednisone 20 mg tablet: Administered ..................... ..................... ..................... ..................... ..................... ..................... ............... Disposition: Fulfilled Sally Blancas MD [address] [place] [address],[address], [place], [address], [employer] 02/23/2023 13:35:59 09/25/2024 text/html ROS as noted [...] Assessment: Level 8 out of 10 Comments: Trial Examiner verified the name//address and phone number. Pt [...] s/s and seek emergency treatment if need Boss Miner Organization Information for Roxanna Nichols [employer] Name: [employer]. Address: [address] [place] [address], Bituminous Distributor Operator: Khadar WANG No.: [id number] Boss Miner POC Test Results from Roxanna Nichols - [...] ..................... ..................... ..................... ..................... ..................... ..................... ............... Boss Miner Note From Roxanna Nichols: ELDER makes pt [...] touched it , as well as heat. [facility] obtains vital signs and pt is [...] clear of any redness, swelling, or bruising. [facility] contacts [facility] and discusses the above. [facility] orders a UA as well as 40mg prednisone PO for back pain and inflammation. Pt is able to provide a urine sample for UA. UA is negative for infection, however, urine glucose is high. After physical exam and UA, pt tells [facility] she has been having profuse night sweats, Like I'm going through menopause again! and she has been coughing up, ovnqjrv-lcuxep-kke phlegm and having some heart palpitations. [facility] orders a 12-lead EKG. EKG is obtained and found to be unremarkable. [facility] informs pt that a CXR is recommended. [facility] prescribes prednisone and cyclobenzaprine for pt's back pain and stresses the importance of monitoring her glucose levels, using her insulin, and watching her diet. [facility] says pt can increase the cyclobenzaprine dose from 5mg to 10mg, if needed. She also tells pt 3G Tylenol per day is the max dose she should take for her weight. Pt is advised to use ice and heat on her back as well. [facility] tells pt to contact her PCP tomorrow to touch base about the pain and her blood sugar. [facility] also tells pt she needs to go to the ED if she develops cp, severe sob, high fever w/ cough, uncontrollable n/v/d, black/bloody stools or urine, focal weakness, or syncope. [facility] administers 40mg prednisone (2 tablets) PO to the pt. Pt states her verbal understanding of [facility] instructions and thanks [facility] for coming. [facility] is clear. Report completed by GWYN Nichols [id number]. [facility] Lab Orders: urinalysis, dipstick: Performed [facility] Medication Orders: prednisone 20 mg tablet: Administered ..................... ..................... ..................... ..................... ..................... ..................... ............... [facility] Consulted: Sally Blancas ..................... ..................... ..................... ..................... ..................... ..................... ............... Disposition: Fulfilled Sally Blancas MD [address] [facility],[address], [place], [address], [employer] 09/25/2024 17:07:04 OBGyn Episode No OBEpisode recorded.
--- OUTSIDE RECORDS SUMMARY | 2025-06-21 08:29 | XMS_ITS | Data Portability ---
Author Organization [place] [facility] Address [address] [place] [address] Care Team Providers Care Conductor And Engineer Name Role Phone KIT STAUFFER Primary Care [...] I have accessed patient records on the [employer]. This information was pertinent in [...] r/o frx and eval hardware. 2021 022 [place] [employer] [employer] ([facility]), [address] [place] [address], [address], 15:52:40 Medication Orders cyclobenzap rine 5 mg tablet 2021 022 [id number], [address] [facility] , [place], [address], 10:12:39 Patient TargetsNo targets recorded. Patient InstructionsNo [...] M.D. 09/02/19 3:45:5 0 PM EST. [email or web address] [employer] [facility] [address] [facility] [address], [place], [address], 09/02/2021 18:24:55 Result Notes None recorded. Procedures Surgical History Date Name Laterality Status Provider Name and Address Organization Details Recorded Time Cholecystectomy completed JAQUAN Mayer [address] [place], [address], [place] [facility] 09/01/2021 09:06:46 Appendectomy completed JAQUAN Montgomery [address] [place], [address], [place] [facility] 09/01/2021 09:06:50 Tonsillectomy completed JAQUAN Montgomery [address], [place], [address], [place] [facility] 09/01/2021 09:06:55 Back Surgery completed JAQUAN Montgomery [address] [place], [address], [place] [facility] 09/01/2021 09:07:05 Imaging Results None recorded. Procedure Notes None recorded. Medical Equipment None Reported. Allergies Allergen ID Allergen Name Allergen Category Reaction Reaction Severity Criticality Documentation Date Start Date Code Code System Note Provider Name and Address Organization Details Recorded Time 007397 ibuprofen medicatio n Not available Not available Not available 09/01/2021 5640 RxNorm JAQUAN Mayer [address] [place], [address], [place] [facility] 08:57:33 907718 aspirin medicatio n Not available Not available Not available 09/01/2021 1191 RxNorm Jonn Tang, PA [address], [place], [address], [place] [facility] 2 08:57:42 411618 Ultram medicatio n Not available Not available Not available 09/01/2021 46340 6 RxNorm Jonn Tang, PA [address], [place], [address], [place] [facility] 2 08:57:49 503637 Geodon medicatio n Not available Not available Not available 09/01/2021 43204 4 RxNorm Jonn Tang, PA [address], [address] [facility] [place], [address], [place] [facility] 2 [...] CHF N Parkinson's Disease N Cancer N Stroke N Dementia N Hypothyroidism Y Asthma N COPD N Depression N High Cholesterol Y Rheumatoid Arthritis N Pulmonary Embolism N Hypertension N Osteoporosis N A-fib N Kidney Disease N Gynecological HistoryNo gynecological history recorded. Obstetrics History GPAL:G 0 P 0 0 0 0 Past Encounters Encounter ID Performer Location Encounter Start Date Encounter Closed Date Diagnosis/Indication Diagnosis SNOMED-CT Code Diagnosis ICD10 Code Diagnosis IMO Codes Diagnosis Note [id number] JAQUAN Gil [facility] [address] [place] [address] 09/01/2021 08:19:31 09/02/2021 11:03:01 Low back pain 027057694 M54.50 Spasm of back muscles 20 7042938 M62.830 Health Concerns Section Related Observation LastModified by Organization Detai ls LastModified Time None Recorded Concern Status LastModified by Organization Details LastModified Time None Recorded Advance Directives Directive None Recorded Payers Insurance Date Sequence Insurance Name Policy Number Policy Kingsley Covered Member ID Kingsley Member ID Guarantor Name 08/31/2021 1 *SELF PAY* Sofiya Rivas [id number] Sofiya Rivas 09/09/[address] [facility] - DOS PRIOR TO 2022 - DUAL ELIGIBLE (MEDICARE REPLACEMENT/ADV ANTAGE - HMO) Sofiya Rivas [id number] Sofiya Rivas Notes Date Note Type Note [...] other assoc sx's JAQUAN Montgomery [address] [place], [address], [place] [facility] 09/01/2021 10:13:13 OBGyn Episode No OBEpisode recorded.
--- OUTSIDE RECORDS SUMMARY | 2025-06-21 08:29 | XMS_ITS | Patient Health Record ---
[facility] Address [address] [place] [address] Care Team Providers Care Pearler Name Role Phone Chiquis Grajeda Primary Care Provider Ijeoma Love [phone] Allergies Allergen (clinical drug ingredient) Drug/Non Drug [...] Duration) Notes Start Date End Date Status Remeron 30 MG 1 tablet at bedtime Orally Once a day Active Extra Depth Orthopedic Shoes (1 Pair) with Customized Heat Molded Multidensity Innersoles (3 Pair) as directed Dx: NIDDM/Polyneuropathy (E11.42), Hammertoe Foot Deformity (M20.41,M20.42), Preulcerative Skin Lesion(s) (L85.1 03/27/2024 Active cloNIDine Active Extra Depth Orthopedic Shoes (1 Pair) with Customized Heat Molded Multidensity Innersoles (3 Pair) as directed Dx: NIDDM/Polyneuropathy (E11.42), Hammertoe Foot Deformity (M20.41,M20.42), Preulcerative Skin Lesion(s) (L85.1 Active Fenofibrate Active Wixela Inhub 250-50 MCG/ACT Inhalation; Duration: 30 Days Not-Taking Lipitor Active glipiZIDE ER 5 MG Oral; Duration: 30 Days Active Colace Not-Taking Vitamin D3 Active Insulin Not-Taking Vitamin B 12 Active SEROquel Not-Taking Jardiance Active NexIUM Active clonazePAM 0.5 MG Oral; Duration: 90 Days Active Abilify Active Mirtazapine 30 MG Oral; Duration: 30 Days Active Extra Depth Orthopedic Shoes (1 Pair) with Customized Heat Molded Multidensity Innersoles (3 Pair) Dx: NIDDM/Polyneuropathy (E11.42), Hammertoe Foot Deformity (M20.41,M20.42), Preulcerative Skin Lesion(s) (L85.1); Duration: 365 days 05/14/2025 Active Gabapentin Not-Takin g Levothyroxine Sodium 25 MCG Oral; Duration: 30 Days Acti ve Actos Active Esomeprazole Magnesium 40 MG Oral; Duration: 28 Days Acti ve Immunizations Vaccine Route Administration Date Status Comme nts Influenza Unknown 02/27/2024 Administered Influenza Unknown 03/05/2025 Administered Social History Tobacco Use: Social History [...] Problem Acquired hammer toe of right foot (4941090064170314 ) Other hammer toe(s) (acquired), right foot (M20.41) Active confirmed Problem Acquired hammer toe of left foot (0635145289643897 ) Other hammer toe(s) (acquired), left foot (M20.42) Active confirmed Problem Polyneuropathy due to type 2 diabetes mellitus (709463303) Type 2 diabetes mellitus with diabetic polyneuropathy (E11.42) Active confirmed Vital Signs Blood pressure diastolic 70 mm Hg 05/14/2025 Height 5ft5.5in in 05/14/2025 Blood pressure systolic 119 mm Hg 05/14/2025 Weight 180 lbs 05/14/2025 BMI 29.49 kg/m2 05/14/2025 Encounters Encounter Location Date Provider Diagnosis [address] [address] 08/31/2024 Ijeoma Joseph Other hammer toe(s) (acquired), right foot M20.41 ; Xerosis of skin L85.3 ; Type 2 diabetes mellitus with diabetic polyneuropathy E11.42 and Other hammer toe(s) (acquired), left foot M20.[address] [address] 11/23/2024 Ijeoma Joseph Type 2 diabetes mellitus with diabetic polyneuropathy E11.42 ; Other hammer toe(s) (acquired), right foot M20.41 and Other hammer toe(s) (acquired), left foot M20.[address] [address] 02/26/2025 Ijeoma Joseph Type 2 diabetes mellitus with diabetic polyneuropathy E11.[address] [address] 05/14/2025 Ijeoma Joseph Type 2 diabetes mellitus with diabetic polyneuropathy E11.42 ; Other hammer toe(s) (acquired), right foot M20.41 ; Other hammer toe(s) (acquired), left foot M20.42 and Neuropathic pain M79.[address] [address] 08/31/2024 Ijeoma Joseph Assessments Encounter Date Diagnosis (ICD Code) Assessment Notes Treatment Notes Treatment Clinical Notes Section Notes 08/31/2024 Other hammer toe(s) (acquired), right foot (ICD-10 - M20.41) Patient Educated with: DIABETIC FOOT CARE INSTRUCTIONS. pdf (DIABETIC FOOT CARE INSTRUCTIONS. pdf) 11/23/2024 Type 2 diabetes mellitus with diabetic polyneuropathy (ICD-10 - E11.42) 02/26/2025 Type 2 diabetes mellitus with diabetic polyneuropathy (ICD-10 - E11.42) 05/14/2025 Other hammer toe(s) (acquired), right foot (ICD-10 - M20.41) Patient Educated with: DIABETIC FOOT CARE INSTRUCTIONS. pdf (DIABETIC FOOT CARE INSTRUCTIONS. pdf) 08/31/2024 Xerosis of skin (ICD-10 - L85.3) 05/14/2025 Type 2 diabetes mellitus with diabetic polyneuropathy (ICD-10 - E11.42) 11/23/2024 Other hammer toe(s) (acquired), right foot (ICD-10 - M20.41) Patient Educated with: DIABETIC FOOT CARE INSTRUCTIONS. pdf (DIABETIC FOOT CARE INSTRUCTIONS. pdf) 05/14/2025 Other hammer toe(s) (acquired), left foot (ICD-10 - M20.42) 08/31/2024 Type 2 diabetes mellitus with diabetic polyneuropathy (ICD-10 - E11.42) 08/31/2024 Other hammer toe(s) (acquired), left foot (ICD-10 - M20.42) 11/23/2024 Other hammer toe(s) (acquired), left foot (ICD-10 - M20.42) 05/14/2025 Neuropathic pain (ICD-10 - M79.2) 11/23/2024 Other Patient Educated with: DIABETIC FOOT CARE INSTRUCTIONS. pdf (DIABETIC FOOT CARE INSTRUCTIONS. pdf) Plan Of Treatment Next Appt Details Provider Name:Ijeoma pitts, 07/26/2025 10:00:00 AM, [address] [place], [address], Insurance Providers Payer Name Payer Address Payer Phone Subscriber Number Group Number Insured Name Patient Relationship to Insured Coverage Start Date Coverage End Date [facility] [employer] Claims [address] [place] [address] [id number] Sofiya Rivas Self - patient is the insured Medical (General) History Medical History History ICD Code Anxiety Arthritis Back,Hip,and Knee pain Cataracts Depression Diabetic Glaucoma Lung disease Macular degeneration Numbness Reflux ( GERD) thyroid Measles Chicken pox Joint implants/screws Transfusions COPD Surgical History Surgery Date(Month/Year) back surgery [id number] facial cosmetic surgery 1977 spine surgery 11/16/2023 eye surgery 12/24/24 Hospitalization History Reason Date(Month/Year) [facility] spine surgery 11/16/2023
--- OUTSIDE RECORDS SUMMARY | 2025-06-21 08:29 | XMS_ITS | Clinical Summary ---
Author Organization [facility] ity Address [address] [place] [address] Care Team Providers Care Vmware Consultant Name Role Phone Chiquis Grajeda MD Primary Care Provider [phone] Social History Tobacco Use Types Packs/Day Years [...] Recently Relevant to Health Maintenance Care Teams Vmware Consultant Relationship Specialty Start Date End Date Chiquis Grajeda MD [address] [place] [address] [address] [facility] [place] [address] PCP - General 12/01/22
== END 2025-06-21 09:18 | disposition home or self-care (01) ==
LOC: HO.HMCH 08:27
PROVIDERS: PCP Internal Medicine; Visit Provider Internal Medicine
DX: E11.65 Type 2 diabetes mellitus with hyperglycemia (principal); Z79.4 Long term (current) use of insulin; E78.5 Hyperlipidemia, unspecified; E06.3 Autoimmune thyroiditis; M85.80 Other specified disorders of bone density and structure, unspecified site; K21.9 Gastro-esophageal reflux disease without esophagitis; N90.89 Other specified noninflammatory disorders of vulva and perineum; M96.1 Postlaminectomy syndrome, not elsewhere classified; J43.9 Emphysema, unspecified; F17.200 Nicotine dependence, unspecified, uncomplicated

== ENCOUNTER → 2025-06-21 08:26 | Outpatient (BNVA) | payer OTHER, SELFPAY | PROVIDERS: PCP Internal Medicine; Visit Provider Internal Medicine | DX: E11.65 Type 2 diabetes mellitus with hyperglycemia (principal); E78.5 Hyperlipidemia, unspecified; E06.3 Autoimmune thyroiditis; M85.80 Other specified disorders of bone density and structure, unspecified site; K21.9 Gastro-esophageal reflux disease without esophagitis; N90.89 Other specified noninflammatory disorders of vulva and perineum; M96.1 Postlaminectomy syndrome, not elsewhere classified; J43.9 Emphysema, unspecified; Z68.30 Body mass index [BMI] 30.0-30.9, adult | CPT/HCPCS: 96127; 99212 ==